=== PATIENT | female | born 1965 | race Caucasian/White ===

== ENCOUNTER 2016-07-20 | Inpatient (IN) | payer OTHER ==
[~2016-07-20] VITALS: Ht 165.1 cm; Wt 61.2 kg
[~2016-07-20] MED LIST: BACL10TA GT; CARB200T GT; CHLO473M3 MM; CHOL100062 GT; DEXT15DR6 EACHEYE; FOLI1TAB16 GT; HEPA50007 SQ; LEVE100S2 GT; LORA2VIA6 IM; MAGN400O6 GT; POLY17PO3 GT; SENN8.6T6 GT; SERT25TA GT
[2016-07-22] MEDS ORDERED: HYDROGEN PEROXIDE 480 ML BOTTLE TP PRN (09:21)
[2016-07-22] MEDS ORDERED: BOOST PLUS FOOD-CHOCLATE 237 ML BOX PO PRN (09:21)
[2016-07-22] MEDS ORDERED: LORAZEPAM INJ 2 MG/ML VIAL IM PRN (09:21)
[2016-07-22] MEDS ORDERED: BOTOX IJ PRN (09:21)
[2016-07-22] MEDS ORDERED: POLYETHYLENE GLYCOL 3350 17 GM POWD.PACK GT SCH (09:21)
[2016-07-22] MEDS ORDERED: TUBERCULIN,PURIF.PROT.DERIV. 5 TU/0.1 ML DISP.SYRIN ID SCH (09:21)
[2016-07-22] MEDS ORDERED: ALBUTEROL FS 2.5 MG/3 ML VIAL.NEB NEB SCH (09:21)
[2016-07-22] MEDS: POLYVINYL ALCOHOL 15 ML BOTTLE EACHEYE SCH ×3 (12:00→23:55)
[2016-07-22] MEDS: CARBAMAZEPINE 200 MG TABLET GT SCH ×2 (13:00→16:22)
[2016-07-22] MEDS: ALBUTEROL FS 2.5 MG/3 ML VIAL.NEB NEB SCH ×2 (14:16→20:28)
[2016-07-22] MEDS: BACLOFEN (10 MG) 10 MG TABLET GT SCH (16:22)
[2016-07-22] MEDS: FOLIC ACID 1 MG TABLET GT SCH (16:22)
[2016-07-22] MEDS: CHLORHEXIDINE GLUCONATE 15 ML UDC MM SCH (16:23)
[2016-07-22 19:49] VITALS: BP 129/67
[2016-07-22] MEDS: SENNOSIDES 8.6 MG TABLET GT SCH (21:36)
[2016-07-22] MEDS: LEVETIRACETAM SOL (5 ML) 100 MG/ML UDC GT SCH (21:36)
[2016-07-22] MEDS: POLYETHYLENE GLYCOL 3350 17 GM POWD.PACK GT SCH (21:37)
[2016-07-22] MEDS: HEPARIN SODIUM, PORCINE 5000 UNITS/1 ML VIAL SQ SCH (21:37)
[2016-07-22] MEDS: Z GUARD REMEDY 4 OZ OINT TP SCH (21:37)
[2016-07-22] MEDS: HYDROGEN PEROXIDE 480 ML BOTTLE TP SCH (21:37)
[2016-07-23] MEDS: ALBUTEROL FS 2.5 MG/3 ML VIAL.NEB NEB SCH ×4 (01:25→19:27)
[2016-07-23] MEDS: POLYVINYL ALCOHOL 15 ML BOTTLE EACHEYE SCH ×4 (06:21→23:16)
[2016-07-23] MEDS: CHLORHEXIDINE GLUCONATE 15 ML UDC MM SCH ×2 (06:21→17:52)
[2016-07-23 08:16] VITALS: BP 114/100
[2016-07-23] MEDS: FOLIC ACID 1 MG TABLET GT SCH ×2 (08:27→16:25)
[2016-07-23] MEDS: CHOLECALCIFEROL 1,000 UNIT TABLET (VIT D3) GT SCH (08:27)
[2016-07-23] MEDS: CARBAMAZEPINE 200 MG TABLET GT SCH ×3 (08:27→16:25)
[2016-07-23] MEDS: BACLOFEN (10 MG) 10 MG TABLET GT SCH ×2 (08:27→16:25)
[2016-07-23] MEDS: SENNOSIDES 8.6 MG TABLET GT SCH ×2 (08:27→20:58)
[2016-07-23] MEDS: LEVETIRACETAM SOL (5 ML) 100 MG/ML UDC GT SCH ×2 (08:27→20:58)
[2016-07-23] MEDS: SERTRALINE HCL 25 MG TABLET GT SCH (08:27)
[2016-07-23] MEDS: Z GUARD REMEDY 4 OZ OINT TP SCH ×2 (08:29→20:59)
[2016-07-23] MEDS: HYDROGEN PEROXIDE 480 ML BOTTLE TP SCH ×2 (08:29→20:59)
[2016-07-23] MEDS: HEPARIN SODIUM, PORCINE 5000 UNITS/1 ML VIAL SQ SCH ×2 (08:29→20:59)
[2016-07-23 20:00] VITALS: BP 114/60
[2016-07-23] MEDS: POLYETHYLENE GLYCOL 3350 17 GM POWD.PACK GT SCH (21:00)
[2016-07-24] MEDS: ALBUTEROL FS 2.5 MG/3 ML VIAL.NEB NEB SCH ×4 (02:25→19:39)
[2016-07-24] MEDS: CHLORHEXIDINE GLUCONATE 15 ML UDC MM SCH ×2 (05:15→17:26)
[2016-07-24] MEDS: POLYVINYL ALCOHOL 15 ML BOTTLE EACHEYE SCH ×3 (05:15→17:26)
[2016-07-24 07:55] VITALS: BP 114/64
[2016-07-24] MEDS: FOLIC ACID 1 MG TABLET GT SCH ×2 (08:26→16:33)
[2016-07-24] MEDS: BACLOFEN (10 MG) 10 MG TABLET GT SCH ×2 (08:26→16:33)
[2016-07-24] MEDS: CHOLECALCIFEROL 1,000 UNIT TABLET (VIT D3) GT SCH (08:26)
[2016-07-24] MEDS: SENNOSIDES 8.6 MG TABLET GT SCH ×2 (08:26→21:35)
[2016-07-24] MEDS: LEVETIRACETAM SOL (5 ML) 100 MG/ML UDC GT SCH ×2 (08:26→21:35)
[2016-07-24] MEDS: CARBAMAZEPINE 200 MG TABLET GT SCH ×3 (08:26→16:33)
[2016-07-24] MEDS: SERTRALINE HCL 25 MG TABLET GT SCH (08:26)
[2016-07-24] MEDS: HYDROGEN PEROXIDE 480 ML BOTTLE TP SCH ×2 (08:27→21:35)
[2016-07-24] MEDS: Z GUARD REMEDY 4 OZ OINT TP SCH ×2 (08:27→21:35)
[2016-07-24] MEDS: HEPARIN SODIUM, PORCINE 5000 UNITS/1 ML VIAL SQ SCH ×2 (08:27→21:35)
[2016-07-24 20:43] VITALS: BP 114/61
[2016-07-24] MEDS: POLYETHYLENE GLYCOL 3350 17 GM POWD.PACK GT SCH (21:35)
[2016-07-25] MEDS: POLYVINYL ALCOHOL 15 ML BOTTLE EACHEYE SCH ×5 (00:27→23:26)
[2016-07-25] MEDS: ALBUTEROL FS 2.5 MG/3 ML VIAL.NEB NEB SCH ×4 (01:36→19:17)
[2016-07-25] MEDS: CHLORHEXIDINE GLUCONATE 15 ML UDC MM SCH ×2 (05:01→17:55)
[2016-07-25 07:49] VITALS: BP 111/60
[2016-07-25] MEDS: FOLIC ACID 1 MG TABLET GT SCH ×2 (08:27→16:57)
[2016-07-25] MEDS: LEVETIRACETAM SOL (5 ML) 100 MG/ML UDC GT SCH ×2 (08:28→21:06)
[2016-07-25] MEDS: BACLOFEN (10 MG) 10 MG TABLET GT SCH ×2 (08:28→16:57)
[2016-07-25] MEDS: CARBAMAZEPINE 200 MG TABLET GT SCH ×3 (08:28→16:57)
[2016-07-25] MEDS: HYDROGEN PEROXIDE 480 ML BOTTLE TP SCH ×2 (08:28→21:07)
[2016-07-25] MEDS: HEPARIN SODIUM, PORCINE 5000 UNITS/1 ML VIAL SQ SCH ×2 (08:28→21:07)
[2016-07-25] MEDS: SERTRALINE HCL 25 MG TABLET GT SCH (08:28)
[2016-07-25] MEDS: SENNOSIDES 8.6 MG TABLET GT SCH ×2 (08:28→21:06)
[2016-07-25] MEDS: CHOLECALCIFEROL 1,000 UNIT TABLET (VIT D3) GT SCH (08:28)
[2016-07-25] MEDS: Z GUARD REMEDY 4 OZ OINT TP SCH ×2 (08:29→21:07)
[2016-07-25 19:41] VITALS: BP 122/57
[2016-07-25] MEDS: POLYETHYLENE GLYCOL 3350 17 GM POWD.PACK GT SCH (21:07)
[2016-07-26] MEDS: ALBUTEROL FS 2.5 MG/3 ML VIAL.NEB NEB SCH ×4 (02:22→19:17)
[2016-07-26] MEDS: CHLORHEXIDINE GLUCONATE 15 ML UDC MM SCH ×2 (05:31→18:05)
[2016-07-26] MEDS: POLYVINYL ALCOHOL 15 ML BOTTLE EACHEYE SCH ×3 (05:31→18:05)
[2016-07-26 07:53] VITALS: BP 111/61
[2016-07-26] MEDS: LEVETIRACETAM SOL (5 ML) 100 MG/ML UDC GT SCH ×2 (08:29→21:51)
[2016-07-26] MEDS: SENNOSIDES 8.6 MG TABLET GT SCH ×2 (08:29→21:51)
[2016-07-26] MEDS: SERTRALINE HCL 25 MG TABLET GT SCH (08:29)
[2016-07-26] MEDS: BACLOFEN (10 MG) 10 MG TABLET GT SCH ×2 (08:29→17:00)
[2016-07-26] MEDS: CHOLECALCIFEROL 1,000 UNIT TABLET (VIT D3) GT SCH (08:29)
[2016-07-26] MEDS: CARBAMAZEPINE 200 MG TABLET GT SCH ×3 (08:29→17:00)
[2016-07-26] MEDS: FOLIC ACID 1 MG TABLET GT SCH ×2 (08:29→17:00)
[2016-07-26] MEDS: HEPARIN SODIUM, PORCINE 5000 UNITS/1 ML VIAL SQ SCH ×2 (08:30→21:52)
[2016-07-26] MEDS: HYDROGEN PEROXIDE 480 ML BOTTLE TP SCH ×2 (09:00→21:52)
[2016-07-26] MEDS: Z GUARD REMEDY 4 OZ OINT TP SCH ×2 (09:00→21:53)
[2016-07-26 19:48] VITALS: BP 130/47
[2016-07-26] MEDS: POLYETHYLENE GLYCOL 3350 17 GM POWD.PACK GT SCH (21:53)
[2016-07-27] MEDS: POLYVINYL ALCOHOL 15 ML BOTTLE EACHEYE SCH ×4 (00:26→17:50)
[2016-07-27] MEDS: ALBUTEROL FS 2.5 MG/3 ML VIAL.NEB NEB SCH ×4 (02:08→20:08)
[2016-07-27] MEDS: CHLORHEXIDINE GLUCONATE 15 ML UDC MM SCH ×2 (06:33→17:50)
[2016-07-27 07:28] VITALS: BP 112/62
[2016-07-27] MEDS: FOLIC ACID 1 MG TABLET GT SCH ×2 (08:43→17:50)
[2016-07-27] MEDS: SENNOSIDES 8.6 MG TABLET GT SCH ×2 (08:44→21:39)
[2016-07-27] MEDS: LEVETIRACETAM SOL (5 ML) 100 MG/ML UDC GT SCH ×2 (08:44→21:39)
[2016-07-27] MEDS: BACLOFEN (10 MG) 10 MG TABLET GT SCH ×2 (08:44→17:50)
[2016-07-27] MEDS: CARBAMAZEPINE 200 MG TABLET GT SCH ×3 (08:45→17:50)
[2016-07-27] MEDS: CHOLECALCIFEROL 1,000 UNIT TABLET (VIT D3) GT SCH (08:45)
[2016-07-27] MEDS: SERTRALINE HCL 25 MG TABLET GT SCH (08:46)
[2016-07-27] MEDS: HEPARIN SODIUM, PORCINE 5000 UNITS/1 ML VIAL SQ SCH ×2 (08:48→21:40)
[2016-07-27] MEDS: HYDROGEN PEROXIDE 480 ML BOTTLE TP SCH ×2 (09:03→21:40)
[2016-07-27] MEDS: Z GUARD REMEDY 4 OZ OINT TP SCH ×2 (09:03→21:40)
[2016-07-27 19:53] VITALS: BP 124/69
[2016-07-27] MEDS: POLYETHYLENE GLYCOL 3350 17 GM POWD.PACK GT SCH (21:40)
[2016-07-28] MEDS: POLYVINYL ALCOHOL 15 ML BOTTLE EACHEYE SCH ×5 (00:05→23:19)
[2016-07-28] MEDS: ALBUTEROL FS 2.5 MG/3 ML VIAL.NEB NEB SCH ×4 (02:25→19:30)
[2016-07-28] MEDS: CHLORHEXIDINE GLUCONATE 15 ML UDC MM SCH ×2 (05:28→17:41)
[2016-07-28 08:05] VITALS: BP 130/73
[2016-07-28] MEDS: BACLOFEN (10 MG) 10 MG TABLET GT SCH ×2 (08:44→17:41)
[2016-07-28] MEDS: SERTRALINE HCL 25 MG TABLET GT SCH (08:44)
[2016-07-28] MEDS: CHOLECALCIFEROL 1,000 UNIT TABLET (VIT D3) GT SCH (08:44)
[2016-07-28] MEDS: SENNOSIDES 8.6 MG TABLET GT SCH ×2 (08:44→20:24)
[2016-07-28] MEDS: CARBAMAZEPINE 200 MG TABLET GT SCH ×3 (08:44→17:41)
[2016-07-28] MEDS: LEVETIRACETAM SOL (5 ML) 100 MG/ML UDC GT SCH ×2 (08:44→20:24)
[2016-07-28] MEDS: FOLIC ACID 1 MG TABLET GT SCH ×2 (08:44→17:41)
[2016-07-28] MEDS: HEPARIN SODIUM, PORCINE 5000 UNITS/1 ML VIAL SQ SCH ×2 (08:45→20:26)
[2016-07-28] MEDS: Z GUARD REMEDY 4 OZ OINT TP SCH ×2 (09:00→20:28)
[2016-07-28] MEDS: HYDROGEN PEROXIDE 480 ML BOTTLE TP SCH ×2 (11:00→20:27)
[2016-07-28 20:49] VITALS: BP 106/62
[2016-07-28] MEDS: POLYETHYLENE GLYCOL 3350 17 GM POWD.PACK GT SCH (21:22)
[2016-07-29] MEDS: ALBUTEROL FS 2.5 MG/3 ML VIAL.NEB NEB SCH ×4 (00:41→19:30)
[2016-07-29] MEDS: CHLORHEXIDINE GLUCONATE 15 ML UDC MM SCH ×2 (05:46→18:46)
[2016-07-29] MEDS: POLYVINYL ALCOHOL 15 ML BOTTLE EACHEYE SCH ×4 (05:46→23:52)
[2016-07-29 08:07] VITALS: BP 103/57
[2016-07-29] MEDS: SERTRALINE HCL 25 MG TABLET GT SCH (08:55)
[2016-07-29] MEDS: BACLOFEN (10 MG) 10 MG TABLET GT SCH ×2 (08:55→16:57)
[2016-07-29] MEDS: CHOLECALCIFEROL 1,000 UNIT TABLET (VIT D3) GT SCH (08:55)
[2016-07-29] MEDS: CARBAMAZEPINE 200 MG TABLET GT SCH ×3 (08:55→16:57)
[2016-07-29] MEDS: LEVETIRACETAM SOL (5 ML) 100 MG/ML UDC GT SCH ×2 (08:55→21:02)
[2016-07-29] MEDS: SENNOSIDES 8.6 MG TABLET GT SCH ×2 (08:55→21:02)
[2016-07-29] MEDS: HEPARIN SODIUM, PORCINE 5000 UNITS/1 ML VIAL SQ SCH ×2 (08:55→21:03)
[2016-07-29] MEDS: FOLIC ACID 1 MG TABLET GT SCH ×2 (08:55→16:57)
[2016-07-29] MEDS: Z GUARD REMEDY 4 OZ OINT TP SCH ×2 (09:00→21:04)
[2016-07-29] MEDS: HYDROGEN PEROXIDE 480 ML BOTTLE TP SCH ×2 (10:15→21:03)
[2016-07-29 20:35] VITALS: BP 98/55
[2016-07-29] MEDS: POLYETHYLENE GLYCOL 3350 17 GM POWD.PACK GT SCH (21:04)
[2016-07-30] MEDS: ALBUTEROL FS 2.5 MG/3 ML VIAL.NEB NEB SCH ×4 (02:21→19:30)
[2016-07-30] MEDS: POLYVINYL ALCOHOL 15 ML BOTTLE EACHEYE SCH ×4 (05:35→23:18)
[2016-07-30] MEDS: CHLORHEXIDINE GLUCONATE 15 ML UDC MM SCH ×2 (05:36→17:12)
[2016-07-30 07:43] VITALS: BP 119/73
[2016-07-30] MEDS: FOLIC ACID 1 MG TABLET GT SCH ×2 (09:24→17:11)
[2016-07-30] MEDS: CHOLECALCIFEROL 1,000 UNIT TABLET (VIT D3) GT SCH (09:25)
[2016-07-30] MEDS: CARBAMAZEPINE 200 MG TABLET GT SCH ×3 (09:25→17:12)
[2016-07-30] MEDS: SENNOSIDES 8.6 MG TABLET GT SCH ×2 (09:25→20:14)
[2016-07-30] MEDS: LEVETIRACETAM SOL (5 ML) 100 MG/ML UDC GT SCH ×2 (09:25→20:14)
[2016-07-30] MEDS: SERTRALINE HCL 25 MG TABLET GT SCH (09:25)
[2016-07-30] MEDS: BACLOFEN (10 MG) 10 MG TABLET GT SCH ×2 (09:25→17:11)
[2016-07-30] MEDS: Z GUARD REMEDY 4 OZ OINT TP SCH ×3 (09:26→20:16)
[2016-07-30] MEDS: HEPARIN SODIUM, PORCINE 5000 UNITS/1 ML VIAL SQ SCH ×2 (09:26→20:15)
[2016-07-30] MEDS: HYDROGEN PEROXIDE 480 ML BOTTLE TP SCH ×2 (09:26→20:15)
[2016-07-30 19:49] VITALS: BP 102/54
[2016-07-30] MEDS: POLYETHYLENE GLYCOL 3350 17 GM POWD.PACK GT SCH (21:59)
[2016-07-31] MEDS: ALBUTEROL FS 2.5 MG/3 ML VIAL.NEB NEB SCH ×4 (01:12→19:30)
[2016-07-31] MEDS: POLYVINYL ALCOHOL 15 ML BOTTLE EACHEYE SCH ×4 (05:10→23:27)
[2016-07-31] MEDS: CHLORHEXIDINE GLUCONATE 15 ML UDC MM SCH ×2 (05:10→17:27)
[2016-07-31 07:41] VITALS: BP 128/76
[2016-07-31] MEDS: FOLIC ACID 1 MG TABLET GT SCH ×2 (08:15→16:10)
[2016-07-31] MEDS: LEVETIRACETAM SOL (5 ML) 100 MG/ML UDC GT SCH ×2 (08:15→21:27)
[2016-07-31] MEDS: BACLOFEN (10 MG) 10 MG TABLET GT SCH ×2 (08:15→16:10)
[2016-07-31] MEDS: CARBAMAZEPINE 200 MG TABLET GT SCH ×3 (08:16→16:15)
[2016-07-31] MEDS: SERTRALINE HCL 25 MG TABLET GT SCH (08:16)
[2016-07-31] MEDS: SENNOSIDES 8.6 MG TABLET GT SCH ×2 (08:16→21:27)
[2016-07-31] MEDS: CHOLECALCIFEROL 1,000 UNIT TABLET (VIT D3) GT SCH (08:16)
[2016-07-31] MEDS: HYDROGEN PEROXIDE 480 ML BOTTLE TP SCH ×2 (08:17→21:28)
[2016-07-31] MEDS: HEPARIN SODIUM, PORCINE 5000 UNITS/1 ML VIAL SQ SCH ×2 (08:17→21:28)
[2016-07-31] MEDS: Z GUARD REMEDY 4 OZ OINT TP SCH ×4 (08:17→21:28)
[2016-07-31 21:16] VITALS: BP 101/73
[2016-07-31] MEDS: POLYETHYLENE GLYCOL 3350 17 GM POWD.PACK GT SCH (21:28)
[2016-08-01] MEDS: ALBUTEROL FS 2.5 MG/3 ML VIAL.NEB NEB SCH ×4 (01:03→19:30)
[2016-08-01] MEDS: POLYVINYL ALCOHOL 15 ML BOTTLE EACHEYE SCH ×4 (05:34→23:19)
[2016-08-01] MEDS: CHLORHEXIDINE GLUCONATE 15 ML UDC MM SCH ×2 (05:34→17:59)
[2016-08-01 07:30] VITALS: BP 116/66
[2016-08-01] MEDS: HEPARIN SODIUM, PORCINE 5000 UNITS/1 ML VIAL SQ SCH ×2 (08:14→21:18)
[2016-08-01] MEDS: SENNOSIDES 8.6 MG TABLET GT SCH ×2 (08:14→21:18)
[2016-08-01] MEDS: CARBAMAZEPINE 200 MG TABLET GT SCH ×3 (08:14→17:59)
[2016-08-01] MEDS: HYDROGEN PEROXIDE 480 ML BOTTLE TP SCH ×2 (08:14→21:18)
[2016-08-01] MEDS: Z GUARD REMEDY 4 OZ OINT TP SCH ×4 (08:14→21:18)
[2016-08-01] MEDS: BACLOFEN (10 MG) 10 MG TABLET GT SCH ×2 (08:14→17:59)
[2016-08-01] MEDS: CHOLECALCIFEROL 1,000 UNIT TABLET (VIT D3) GT SCH (08:14)
[2016-08-01] MEDS: SERTRALINE HCL 25 MG TABLET GT SCH (08:14)
[2016-08-01] MEDS: FOLIC ACID 1 MG TABLET GT SCH ×2 (08:14→17:59)
[2016-08-01] MEDS: LEVETIRACETAM SOL (5 ML) 100 MG/ML UDC GT SCH ×2 (08:14→21:18)
[2016-08-01 21:09] VITALS: BP 97/57
[2016-08-01] MEDS: POLYETHYLENE GLYCOL 3350 17 GM POWD.PACK GT SCH (21:18)
[2016-08-02] MEDS: ALBUTEROL FS 2.5 MG/3 ML VIAL.NEB NEB SCH ×4 (02:02→19:10)
[2016-08-02] MEDS: POLYVINYL ALCOHOL 15 ML BOTTLE EACHEYE SCH ×4 (05:28→23:25)
[2016-08-02] MEDS: CHLORHEXIDINE GLUCONATE 15 ML UDC MM SCH ×2 (05:28→17:25)
[2016-08-02 07:55] VITALS: BP 102/54
[2016-08-02] MEDS: HEPARIN SODIUM, PORCINE 5000 UNITS/1 ML VIAL SQ SCH ×2 (09:50→21:04)
[2016-08-02] MEDS: LEVETIRACETAM SOL (5 ML) 100 MG/ML UDC GT SCH ×2 (09:50→21:04)
[2016-08-02] MEDS: SERTRALINE HCL 25 MG TABLET GT SCH (09:50)
[2016-08-02] MEDS: BACLOFEN (10 MG) 10 MG TABLET GT SCH ×2 (09:50→17:25)
[2016-08-02] MEDS: CHOLECALCIFEROL 1,000 UNIT TABLET (VIT D3) GT SCH (09:50)
[2016-08-02] MEDS: FOLIC ACID 1 MG TABLET GT SCH ×2 (09:50→17:25)
[2016-08-02] MEDS: SENNOSIDES 8.6 MG TABLET GT SCH ×2 (09:50→21:04)
[2016-08-02] MEDS: CARBAMAZEPINE 200 MG TABLET GT SCH ×3 (09:50→17:25)
[2016-08-02] MEDS: Z GUARD REMEDY 4 OZ OINT TP SCH ×4 (09:51→21:05)
[2016-08-02] MEDS: HYDROGEN PEROXIDE 480 ML BOTTLE TP SCH ×2 (09:51→21:05)
[2016-08-02 19:58] VITALS: BP 103/59
[2016-08-02] MEDS: MAGNESIUM HYDROXIDE 30 ML UDC GT PRN (21:05)
[2016-08-02] MEDS: POLYETHYLENE GLYCOL 3350 17 GM POWD.PACK GT SCH (21:05)
[2016-08-03] MEDS: ALBUTEROL FS 2.5 MG/3 ML VIAL.NEB NEB SCH ×4 (01:18→19:02)
[2016-08-03] MEDS: CHLORHEXIDINE GLUCONATE 15 ML UDC MM SCH ×2 (05:23→17:24)
[2016-08-03] MEDS: POLYVINYL ALCOHOL 15 ML BOTTLE EACHEYE SCH ×4 (05:23→23:55)
[2016-08-03 08:17] VITALS: BP 101/62
[2016-08-03] MEDS: SENNOSIDES 8.6 MG TABLET GT SCH ×2 (09:32→21:01)
[2016-08-03] MEDS: LEVETIRACETAM SOL (5 ML) 100 MG/ML UDC GT SCH ×2 (09:32→21:01)
[2016-08-03] MEDS: CARBAMAZEPINE 200 MG TABLET GT SCH ×3 (09:32→17:24)
[2016-08-03] MEDS: FOLIC ACID 1 MG TABLET GT SCH ×2 (09:32→17:22)
[2016-08-03] MEDS: SERTRALINE HCL 25 MG TABLET GT SCH (09:32)
[2016-08-03] MEDS: BACLOFEN (10 MG) 10 MG TABLET GT SCH ×2 (09:32→17:23)
[2016-08-03] MEDS: CHOLECALCIFEROL 1,000 UNIT TABLET (VIT D3) GT SCH (09:32)
[2016-08-03] MEDS: HEPARIN SODIUM, PORCINE 5000 UNITS/1 ML VIAL SQ SCH ×2 (09:33→21:02)
[2016-08-03] MEDS: HYDROGEN PEROXIDE 480 ML BOTTLE TP SCH ×2 (09:33→21:02)
[2016-08-03] MEDS: Z GUARD REMEDY 4 OZ OINT TP SCH ×4 (09:33→21:03)
[2016-08-03 19:54] VITALS: BP 110/54
[2016-08-03] MEDS: POLYETHYLENE GLYCOL 3350 17 GM POWD.PACK GT SCH (21:03)
[2016-08-04] MEDS: ALBUTEROL FS 2.5 MG/3 ML VIAL.NEB NEB SCH ×4 (00:33→18:58)
[2016-08-04] MEDS: POLYVINYL ALCOHOL 15 ML BOTTLE EACHEYE SCH ×3 (05:38→18:04)
[2016-08-04] MEDS: CHLORHEXIDINE GLUCONATE 15 ML UDC MM SCH ×2 (05:38→18:04)
[2016-08-04 08:07] VITALS: BP 159/81
[2016-08-04] MEDS: CARBAMAZEPINE 200 MG TABLET GT SCH ×3 (08:47→17:00)
[2016-08-04] MEDS: SENNOSIDES 8.6 MG TABLET GT SCH ×2 (08:47→20:18)
[2016-08-04] MEDS: BACLOFEN (10 MG) 10 MG TABLET GT SCH ×3 (08:47→17:00)
[2016-08-04] MEDS: FOLIC ACID 1 MG TABLET GT SCH ×2 (08:47→17:00)
[2016-08-04] MEDS: LEVETIRACETAM SOL (5 ML) 100 MG/ML UDC GT SCH ×2 (08:47→20:18)
[2016-08-04] MEDS: CHOLECALCIFEROL 1,000 UNIT TABLET (VIT D3) GT SCH (08:47)
[2016-08-04] MEDS: SERTRALINE HCL 25 MG TABLET GT SCH (08:47)
[2016-08-04] MEDS: HYDROGEN PEROXIDE 480 ML BOTTLE TP SCH ×2 (08:48→20:18)
[2016-08-04] MEDS: HEPARIN SODIUM, PORCINE 5000 UNITS/1 ML VIAL SQ SCH ×2 (08:48→20:18)
[2016-08-04] MEDS: Z GUARD REMEDY 4 OZ OINT TP SCH ×4 (08:48→20:18)
[2016-08-04 20:00] VITALS: BP 108/60
[2016-08-04] MEDS: POLYETHYLENE GLYCOL 3350 17 GM POWD.PACK GT SCH (21:54)
[2016-08-05] MEDS: POLYVINYL ALCOHOL 15 ML BOTTLE EACHEYE SCH ×5 (00:18→23:29)
[2016-08-05] MEDS: ALBUTEROL FS 2.5 MG/3 ML VIAL.NEB NEB SCH ×4 (01:08→19:56)
[2016-08-05] MEDS: CHLORHEXIDINE GLUCONATE 15 ML UDC MM SCH ×2 (05:26→17:24)
[2016-08-05 08:15] VITALS: BP 115/60
[2016-08-05] MEDS: SERTRALINE HCL 25 MG TABLET GT SCH (08:32)
[2016-08-05] MEDS: CHOLECALCIFEROL 1,000 UNIT TABLET (VIT D3) GT SCH (08:32)
[2016-08-05] MEDS: CARBAMAZEPINE 200 MG TABLET GT SCH ×3 (08:32→17:24)
[2016-08-05] MEDS: LEVETIRACETAM SOL (5 ML) 100 MG/ML UDC GT SCH ×2 (08:32→20:28)
[2016-08-05] MEDS: SENNOSIDES 8.6 MG TABLET GT SCH ×2 (08:32→20:28)
[2016-08-05] MEDS: FOLIC ACID 1 MG TABLET GT SCH ×2 (08:32→17:24)
[2016-08-05] MEDS: BACLOFEN (10 MG) 10 MG TABLET GT SCH ×3 (08:32→17:24)
[2016-08-05] MEDS: HYDROGEN PEROXIDE 480 ML BOTTLE TP SCH ×2 (08:34→20:28)
[2016-08-05] MEDS: HEPARIN SODIUM, PORCINE 5000 UNITS/1 ML VIAL SQ SCH ×2 (08:34→20:28)
[2016-08-05] MEDS: Z GUARD REMEDY 4 OZ OINT TP SCH ×4 (08:34→20:29)
[2016-08-05 19:57] VITALS: BP 111/72
[2016-08-05] MEDS: POLYETHYLENE GLYCOL 3350 17 GM POWD.PACK GT SCH (22:27)
[2016-08-06] MEDS: ALBUTEROL FS 2.5 MG/3 ML VIAL.NEB NEB SCH ×4 (01:42→19:30)
[2016-08-06] MEDS: POLYVINYL ALCOHOL 15 ML BOTTLE EACHEYE SCH ×4 (05:27→23:36)
[2016-08-06] MEDS: CHLORHEXIDINE GLUCONATE 15 ML UDC MM SCH ×2 (05:27→18:44)
[2016-08-06 08:17] VITALS: BP 118/60
[2016-08-06] MEDS: CHOLECALCIFEROL 1,000 UNIT TABLET (VIT D3) GT SCH (08:26)
[2016-08-06] MEDS: CARBAMAZEPINE 200 MG TABLET GT SCH ×3 (08:26→17:00)
[2016-08-06] MEDS: LEVETIRACETAM SOL (5 ML) 100 MG/ML UDC GT SCH ×2 (08:26→20:12)
[2016-08-06] MEDS: SENNOSIDES 8.6 MG TABLET GT SCH ×2 (08:26→20:12)
[2016-08-06] MEDS: FOLIC ACID 1 MG TABLET GT SCH ×2 (08:26→17:00)
[2016-08-06] MEDS: SERTRALINE HCL 25 MG TABLET GT SCH (08:26)
[2016-08-06] MEDS: BACLOFEN (10 MG) 10 MG TABLET GT SCH ×3 (08:26→17:00)
[2016-08-06] MEDS: HYDROGEN PEROXIDE 480 ML BOTTLE TP SCH ×2 (08:27→20:13)
[2016-08-06] MEDS: HEPARIN SODIUM, PORCINE 5000 UNITS/1 ML VIAL SQ SCH ×2 (08:27→20:13)
[2016-08-06] MEDS: Z GUARD REMEDY 4 OZ OINT TP SCH ×4 (08:27→20:13)
[2016-08-06 19:50] VITALS: BP 100/62
[2016-08-06] MEDS: POLYETHYLENE GLYCOL 3350 17 GM POWD.PACK GT SCH (21:59)
[2016-08-07] MEDS: ALBUTEROL FS 2.5 MG/3 ML VIAL.NEB NEB SCH ×4 (01:45→19:27)
[2016-08-07] MEDS: POLYVINYL ALCOHOL 15 ML BOTTLE EACHEYE SCH ×3 (05:39→17:49)
[2016-08-07] MEDS: CHLORHEXIDINE GLUCONATE 15 ML UDC MM SCH ×2 (05:39→17:49)
[2016-08-07 07:35] VITALS: BP 120/75
[2016-08-07] MEDS: BACLOFEN (10 MG) 10 MG TABLET GT SCH ×3 (09:00→17:48)
[2016-08-07] MEDS: CARBAMAZEPINE 200 MG TABLET GT SCH ×3 (09:00→17:48)
[2016-08-07] MEDS: LEVETIRACETAM SOL (5 ML) 100 MG/ML UDC GT SCH ×2 (09:00→21:00)
[2016-08-07] MEDS: HEPARIN SODIUM, PORCINE 5000 UNITS/1 ML VIAL SQ SCH ×2 (09:00→21:01)
[2016-08-07] MEDS: SERTRALINE HCL 25 MG TABLET GT SCH (09:00)
[2016-08-07] MEDS: HYDROGEN PEROXIDE 480 ML BOTTLE TP SCH ×2 (09:00→21:01)
[2016-08-07] MEDS: Z GUARD REMEDY 4 OZ OINT TP SCH ×4 (09:00→21:01)
[2016-08-07] MEDS: FOLIC ACID 1 MG TABLET GT SCH ×2 (09:00→17:48)
[2016-08-07] MEDS: SENNOSIDES 8.6 MG TABLET GT SCH ×2 (09:00→21:00)
[2016-08-07] MEDS: CHOLECALCIFEROL 1,000 UNIT TABLET (VIT D3) GT SCH (09:00)
[2016-08-07 19:48] VITALS: BP 118/68
[2016-08-07] MEDS: POLYETHYLENE GLYCOL 3350 17 GM POWD.PACK GT SCH (21:01)
[2016-08-08] MEDS: ALBUTEROL FS 2.5 MG/3 ML VIAL.NEB NEB SCH ×4 (00:58→19:39)
[2016-08-08] MEDS: CHLORHEXIDINE GLUCONATE 15 ML UDC MM SCH ×2 (05:43→17:08)
[2016-08-08] MEDS: POLYVINYL ALCOHOL 15 ML BOTTLE EACHEYE SCH ×4 (05:43→17:08)
[2016-08-08 06:46] LABS: BASOPHILS % (AUTO) 0.5 % (0.0-2.0); DIFF TOTAL % 100 %; EOSINOPHILS # (AUTO) 0.1 /CMM (0.0-0.7); EOSINOPHILS % (AUTO) 1.7 % (0.0-6.0); HEMATOCRIT 40 % (33-45); HEMOGLOBIN 13.7 g/dL (11.5-14.8); LYMPHOCYTES % (AUTO) 42.8 % (20.0-44.0); MEAN CORPUSCULAR HEMOGLOBIN 33 PG (26.0-33.0); MEAN CORPUSCULAR HGB CONC 34 g/dl (31.0-36.0); MEAN CORPUSCULAR VOLUME 97 fL (82-100); MONOCYTES # (AUTO) 0.4 /CMM (0.1-1.30); MONOCYTES % (AUTO) 9.2 % (2.0-12.0); NEUTROPHILS # (AUTO) 2.1 /CMM (1.8-8.9); NEUTROPHILS % (AUTO) 45.8 % (43.0-81.0); PLATELET COUNT (AUTO) 256 /CMM (150-450); RED BLOOD CELL COUNT(AUTO) 4.15 MIL/uL (4.0-5.2); WHITE BLOOD COUNT (AUTO) 4.7 K/uL (4.3-11.0)
[2016-08-08 07:08] LABS: ALBUMIN 3.2 g/dL (3.4-5.0); BILIRUBIN,TOTAL 0.2 mg/dL (0.2-1.0); CREATININE 0.5 mg/dL (0.6-1.3); TOTAL PROTEIN, SERUM 6.7 g/dL (6.4-8.2)
[2016-08-08 07:11] LABS: THYROID STIMULATING HORMONE 0.786 uIU/mL (0.358-3.74)
[2016-08-08 07:35] VITALS: BP 110/72
[2016-08-08] MEDS: CARBAMAZEPINE 200 MG TABLET GT SCH ×3 (08:47→17:08)
[2016-08-08] MEDS: SENNOSIDES 8.6 MG TABLET GT SCH ×2 (08:47→21:00)
[2016-08-08] MEDS: FOLIC ACID 1 MG TABLET GT SCH ×2 (08:47→17:08)
[2016-08-08] MEDS: SERTRALINE HCL 25 MG TABLET GT SCH (08:47)
[2016-08-08] MEDS: LEVETIRACETAM SOL (5 ML) 100 MG/ML UDC GT SCH ×2 (08:47→21:00)
[2016-08-08] MEDS: CHOLECALCIFEROL 1,000 UNIT TABLET (VIT D3) GT SCH (08:47)
[2016-08-08] MEDS: BACLOFEN (10 MG) 10 MG TABLET GT SCH ×3 (08:47→17:08)
[2016-08-08] MEDS: HEPARIN SODIUM, PORCINE 5000 UNITS/1 ML VIAL SQ SCH ×2 (08:51→21:00)
[2016-08-08] MEDS: Z GUARD REMEDY 4 OZ OINT TP SCH ×4 (08:51→21:00)
[2016-08-08] MEDS: HYDROGEN PEROXIDE 480 ML BOTTLE TP SCH ×2 (08:51→21:00)
[2016-08-08 19:49] VITALS: BP 111/58
[2016-08-08] MEDS: POLYETHYLENE GLYCOL 3350 17 GM POWD.PACK GT SCH (22:11)
[2016-08-09] MEDS: POLYVINYL ALCOHOL 15 ML BOTTLE EACHEYE SCH ×5 (00:38→23:29)
[2016-08-09] MEDS: ALBUTEROL FS 2.5 MG/3 ML VIAL.NEB NEB SCH ×4 (00:55→19:47)
[2016-08-09] MEDS: CHLORHEXIDINE GLUCONATE 15 ML UDC MM SCH ×2 (05:27→17:08)
[2016-08-09 07:49] VITALS: BP 122/75
[2016-08-09] MEDS: SERTRALINE HCL 25 MG TABLET GT SCH (09:01)
[2016-08-09] MEDS: BACLOFEN (10 MG) 10 MG TABLET GT SCH ×3 (09:01→17:08)
[2016-08-09] MEDS: CHOLECALCIFEROL 1,000 UNIT TABLET (VIT D3) GT SCH (09:01)
[2016-08-09] MEDS: SENNOSIDES 8.6 MG TABLET GT SCH ×2 (09:01→20:38)
[2016-08-09] MEDS: FOLIC ACID 1 MG TABLET GT SCH ×2 (09:01→17:08)
[2016-08-09] MEDS: CARBAMAZEPINE 200 MG TABLET GT SCH ×3 (09:01→17:08)
[2016-08-09] MEDS: HEPARIN SODIUM, PORCINE 5000 UNITS/1 ML VIAL SQ SCH ×2 (09:01→20:38)
[2016-08-09] MEDS: LEVETIRACETAM SOL (5 ML) 100 MG/ML UDC GT SCH ×2 (09:01→20:38)
[2016-08-09] MEDS: HYDROGEN PEROXIDE 480 ML BOTTLE TP SCH ×2 (10:30→20:38)
[2016-08-09] MEDS: Z GUARD REMEDY 4 OZ OINT TP SCH ×4 (10:30→20:38)
[2016-08-09 20:08] VITALS: BP 111/58
[2016-08-09] MEDS: POLYETHYLENE GLYCOL 3350 17 GM POWD.PACK GT SCH (22:00)
[2016-08-10] MEDS: ALBUTEROL FS 2.5 MG/3 ML VIAL.NEB NEB SCH ×4 (02:10→20:27)
[2016-08-10] MEDS: POLYVINYL ALCOHOL 15 ML BOTTLE EACHEYE SCH ×4 (05:24→23:45)
[2016-08-10] MEDS: CHLORHEXIDINE GLUCONATE 15 ML UDC MM SCH ×2 (06:00→18:31)
[2016-08-10 07:34] VITALS: BP 113/54
[2016-08-10] MEDS: SENNOSIDES 8.6 MG TABLET GT SCH ×2 (09:32→21:02)
[2016-08-10] MEDS: SERTRALINE HCL 25 MG TABLET GT SCH (09:32)
[2016-08-10] MEDS: CHOLECALCIFEROL 1,000 UNIT TABLET (VIT D3) GT SCH (09:32)
[2016-08-10] MEDS: LEVETIRACETAM SOL (5 ML) 100 MG/ML UDC GT SCH ×2 (09:32→21:02)
[2016-08-10] MEDS: CARBAMAZEPINE 200 MG TABLET GT SCH ×3 (09:32→17:17)
[2016-08-10] MEDS: BACLOFEN (10 MG) 10 MG TABLET GT SCH ×3 (09:32→17:17)
[2016-08-10] MEDS: FOLIC ACID 1 MG TABLET GT SCH ×2 (09:32→17:17)
[2016-08-10] MEDS: HEPARIN SODIUM, PORCINE 5000 UNITS/1 ML VIAL SQ SCH ×2 (09:34→21:03)
[2016-08-10] MEDS: Z GUARD REMEDY 4 OZ OINT TP SCH ×4 (09:34→21:03)
[2016-08-10] MEDS: HYDROGEN PEROXIDE 480 ML BOTTLE TP SCH ×2 (09:34→21:03)
[2016-08-10 20:12] VITALS: BP 96/60
[2016-08-10] MEDS: POLYETHYLENE GLYCOL 3350 17 GM POWD.PACK GT SCH (21:03)
[2016-08-11] MEDS: ALBUTEROL FS 2.5 MG/3 ML VIAL.NEB NEB SCH ×4 (01:37→20:03)
[2016-08-11] MEDS: CHLORHEXIDINE GLUCONATE 15 ML UDC MM SCH ×2 (05:37→17:54)
[2016-08-11] MEDS: POLYVINYL ALCOHOL 15 ML BOTTLE EACHEYE SCH ×4 (05:37→23:14)
[2016-08-11 07:26] VITALS: BP 110/52
[2016-08-11] MEDS: LEVETIRACETAM SOL (5 ML) 100 MG/ML UDC GT SCH ×2 (09:35→21:08)
[2016-08-11] MEDS: SENNOSIDES 8.6 MG TABLET GT SCH ×2 (09:35→21:08)
[2016-08-11] MEDS: BACLOFEN (10 MG) 10 MG TABLET GT SCH ×3 (09:35→17:54)
[2016-08-11] MEDS: SERTRALINE HCL 25 MG TABLET GT SCH (09:35)
[2016-08-11] MEDS: FOLIC ACID 1 MG TABLET GT SCH ×2 (09:35→17:53)
[2016-08-11] MEDS: CHOLECALCIFEROL 1,000 UNIT TABLET (VIT D3) GT SCH (09:35)
[2016-08-11] MEDS: CARBAMAZEPINE 200 MG TABLET GT SCH ×3 (09:35→17:54)
[2016-08-11] MEDS: HEPARIN SODIUM, PORCINE 5000 UNITS/1 ML VIAL SQ SCH ×2 (09:36→21:08)
[2016-08-11] MEDS: HYDROGEN PEROXIDE 480 ML BOTTLE TP SCH ×2 (11:00→21:09)
[2016-08-11] MEDS: Z GUARD REMEDY 4 OZ OINT TP SCH ×4 (11:00→21:09)
[2016-08-11 21:03] VITALS: BP 98/59
[2016-08-11] MEDS: POLYETHYLENE GLYCOL 3350 17 GM POWD.PACK GT SCH (21:09)
[2016-08-12] MEDS: ALBUTEROL FS 2.5 MG/3 ML VIAL.NEB NEB SCH ×4 (02:20→19:45)
[2016-08-12] MEDS: CHLORHEXIDINE GLUCONATE 15 ML UDC MM SCH ×2 (05:32→17:52)
[2016-08-12] MEDS: POLYVINYL ALCOHOL 15 ML BOTTLE EACHEYE SCH ×4 (05:32→23:33)
[2016-08-12 08:16] VITALS: BP 112/56
[2016-08-12] MEDS: FOLIC ACID 1 MG TABLET GT SCH ×2 (09:03→17:05)
[2016-08-12] MEDS: LEVETIRACETAM SOL (5 ML) 100 MG/ML UDC GT SCH ×2 (09:03→21:05)
[2016-08-12] MEDS: BACLOFEN (10 MG) 10 MG TABLET GT SCH ×3 (09:03→17:05)
[2016-08-12] MEDS: SERTRALINE HCL 25 MG TABLET GT SCH (09:04)
[2016-08-12] MEDS: CARBAMAZEPINE 200 MG TABLET GT SCH ×3 (09:04→17:05)
[2016-08-12] MEDS: HEPARIN SODIUM, PORCINE 5000 UNITS/1 ML VIAL SQ SCH ×2 (09:04→21:05)
[2016-08-12] MEDS: CHOLECALCIFEROL 1,000 UNIT TABLET (VIT D3) GT SCH (09:04)
[2016-08-12] MEDS: SENNOSIDES 8.6 MG TABLET GT SCH ×2 (09:04→21:05)
[2016-08-12] MEDS: HYDROGEN PEROXIDE 480 ML BOTTLE TP SCH ×2 (14:30→21:05)
[2016-08-12] MEDS: Z GUARD REMEDY 4 OZ OINT TP SCH ×4 (14:30→21:05)
[2016-08-12 19:46] VITALS: BP 103/62
[2016-08-12] MEDS: POLYETHYLENE GLYCOL 3350 17 GM POWD.PACK GT SCH (21:05)
[2016-08-13] MEDS: ALBUTEROL FS 2.5 MG/3 ML VIAL.NEB NEB SCH ×4 (00:45→19:49)
[2016-08-13] MEDS: CHLORHEXIDINE GLUCONATE 15 ML UDC MM SCH ×2 (05:12→18:52)
[2016-08-13] MEDS: POLYVINYL ALCOHOL 15 ML BOTTLE EACHEYE SCH ×4 (05:12→23:26)
[2016-08-13 08:05] VITALS: BP 108/62
[2016-08-13] MEDS: FOLIC ACID 1 MG TABLET GT SCH ×2 (08:50→17:00)
[2016-08-13] MEDS: LEVETIRACETAM SOL (5 ML) 100 MG/ML UDC GT SCH ×2 (08:50→21:02)
[2016-08-13] MEDS: SENNOSIDES 8.6 MG TABLET GT SCH ×2 (08:51→21:02)
[2016-08-13] MEDS: SERTRALINE HCL 25 MG TABLET GT SCH (08:51)
[2016-08-13] MEDS: CARBAMAZEPINE 200 MG TABLET GT SCH ×3 (08:51→17:00)
[2016-08-13] MEDS: BACLOFEN (10 MG) 10 MG TABLET GT SCH ×3 (08:51→17:00)
[2016-08-13] MEDS: CHOLECALCIFEROL 1,000 UNIT TABLET (VIT D3) GT SCH (08:51)
[2016-08-13] MEDS: HEPARIN SODIUM, PORCINE 5000 UNITS/1 ML VIAL SQ SCH ×2 (08:55→21:03)
[2016-08-13] MEDS: Z GUARD REMEDY 4 OZ OINT TP SCH ×4 (08:56→21:03)
[2016-08-13] MEDS: HYDROGEN PEROXIDE 480 ML BOTTLE TP SCH ×2 (08:56→21:03)
[2016-08-13 19:50] VITALS: BP 130/64
[2016-08-13] MEDS: POLYETHYLENE GLYCOL 3350 17 GM POWD.PACK GT SCH (21:03)
[2016-08-14] MEDS: ALBUTEROL FS 2.5 MG/3 ML VIAL.NEB NEB SCH ×4 (00:46→19:35)
[2016-08-14] MEDS: POLYVINYL ALCOHOL 15 ML BOTTLE EACHEYE SCH ×4 (05:09→23:58)
[2016-08-14] MEDS: CHLORHEXIDINE GLUCONATE 15 ML UDC MM SCH ×2 (05:09→17:47)
[2016-08-14 07:43] VITALS: BP 139/76
[2016-08-14] MEDS: FOLIC ACID 1 MG TABLET GT SCH ×2 (08:29→17:47)
[2016-08-14] MEDS: SENNOSIDES 8.6 MG TABLET GT SCH ×2 (08:30→21:48)
[2016-08-14] MEDS: BACLOFEN (10 MG) 10 MG TABLET GT SCH ×3 (08:30→17:47)
[2016-08-14] MEDS: LEVETIRACETAM SOL (5 ML) 100 MG/ML UDC GT SCH ×2 (08:30→21:48)
[2016-08-14] MEDS: CHOLECALCIFEROL 1,000 UNIT TABLET (VIT D3) GT SCH (08:35)
[2016-08-14] MEDS: SERTRALINE HCL 25 MG TABLET GT SCH (08:35)
[2016-08-14] MEDS: CARBAMAZEPINE 200 MG TABLET GT SCH ×3 (08:35→17:47)
[2016-08-14] MEDS: HEPARIN SODIUM, PORCINE 5000 UNITS/1 ML VIAL SQ SCH ×2 (08:38→21:48)
[2016-08-14] MEDS: Z GUARD REMEDY 4 OZ OINT TP SCH ×4 (08:39→21:49)
[2016-08-14] MEDS: HYDROGEN PEROXIDE 480 ML BOTTLE TP SCH ×2 (08:39→21:49)
[2016-08-14 16:56] VITALS: BP 130/79
[2016-08-14 20:20] VITALS: BP 120/70
[2016-08-14] MEDS: POLYETHYLENE GLYCOL 3350 17 GM POWD.PACK GT SCH (21:49)
[2016-08-15] MEDS: ALBUTEROL FS 2.5 MG/3 ML VIAL.NEB NEB SCH ×4 (00:49→19:18)
[2016-08-15] MEDS: CHLORHEXIDINE GLUCONATE 15 ML UDC MM SCH ×2 (05:25→17:24)
[2016-08-15] MEDS: POLYVINYL ALCOHOL 15 ML BOTTLE EACHEYE SCH ×3 (05:25→17:24)
[2016-08-15 08:13] VITALS: BP 134/92
[2016-08-15] MEDS: FOLIC ACID 1 MG TABLET GT SCH ×2 (09:51→17:24)
[2016-08-15] MEDS: BACLOFEN (10 MG) 10 MG TABLET GT SCH ×3 (09:52→17:24)
[2016-08-15] MEDS: SERTRALINE HCL 25 MG TABLET GT SCH (09:52)
[2016-08-15] MEDS: CARBAMAZEPINE 200 MG TABLET GT SCH ×3 (09:52→17:24)
[2016-08-15] MEDS: HYDROGEN PEROXIDE 480 ML BOTTLE TP SCH ×2 (09:52→21:46)
[2016-08-15] MEDS: SENNOSIDES 8.6 MG TABLET GT SCH ×2 (09:52→21:45)
[2016-08-15] MEDS: CHOLECALCIFEROL 1,000 UNIT TABLET (VIT D3) GT SCH (09:52)
[2016-08-15] MEDS: LEVETIRACETAM SOL (5 ML) 100 MG/ML UDC GT SCH ×2 (09:52→21:45)
[2016-08-15] MEDS: Z GUARD REMEDY 4 OZ OINT TP SCH ×4 (09:52→21:46)
[2016-08-15] MEDS: HEPARIN SODIUM, PORCINE 5000 UNITS/1 ML VIAL SQ SCH ×2 (09:52→21:46)
[2016-08-15 16:49] LABS: KETONES,URINE NEGATIVE (NEGATIVE); LEUKOCYTE ESTERASE ,URINE 3+ (NEGATIVE)
[2016-08-15 17:05] LABS: BASOPHILS % (AUTO) 0.4 % (0.0-2.0); DIFF TOTAL % 100 %; EOSINOPHILS % (AUTO) 0.1 % (0.0-6.0); HEMATOCRIT 43 % (33-45); HEMOGLOBIN 14.2 g/dL (11.5-14.8); LYMPHOCYTES % (AUTO) 21.3 % (20.0-44.0); MEAN CORPUSCULAR HEMOGLOBIN 32 PG (26.0-33.0); MEAN CORPUSCULAR HGB CONC 33 g/dl (31.0-36.0); MEAN CORPUSCULAR VOLUME 97 fL (82-100); MONOCYTES # (AUTO) 0.4 /CMM (0.1-1.30); MONOCYTES % (AUTO) 9.4 % (2.0-12.0); NEUTROPHILS # (AUTO) 3.1 /CMM (1.8-8.9); NEUTROPHILS % (AUTO) 68.8 % (43.0-81.0); PLATELET COUNT (AUTO) 235 /CMM (150-450); WHITE BLOOD COUNT (AUTO) 4.6 K/uL (4.3-11.0)
[2016-08-15 17:17] LABS: ADD UA MICROSCOPIC YES
[2016-08-15 17:21] LABS: ADD URINE CULTURE YES
[2016-08-15 19:45] VITALS: BP 119/62
[2016-08-15] MEDS: POLYETHYLENE GLYCOL 3350 17 GM POWD.PACK GT SCH (21:46)
[2016-08-16] MEDS: POLYVINYL ALCOHOL 15 ML BOTTLE EACHEYE SCH ×4 (00:57→17:19)
[2016-08-16] MEDS: ALBUTEROL FS 2.5 MG/3 ML VIAL.NEB NEB SCH ×4 (01:40→19:29)
[2016-08-16] MEDS: CHLORHEXIDINE GLUCONATE 15 ML UDC MM SCH ×2 (06:24→17:19)
[2016-08-16 07:17] VITALS: BP 128/73
[2016-08-16] MEDS: FOLIC ACID 1 MG TABLET GT SCH ×2 (08:09→16:34)
[2016-08-16] MEDS: BACLOFEN (10 MG) 10 MG TABLET GT SCH ×3 (08:10→16:34)
[2016-08-16] MEDS: SERTRALINE HCL 25 MG TABLET GT SCH (08:10)
[2016-08-16] MEDS: CARBAMAZEPINE 200 MG TABLET GT SCH ×3 (08:10→16:34)
[2016-08-16] MEDS: LEVETIRACETAM SOL (5 ML) 100 MG/ML UDC GT SCH ×2 (08:11→20:38)
[2016-08-16] MEDS: CHOLECALCIFEROL 1,000 UNIT TABLET (VIT D3) GT SCH (08:11)
[2016-08-16] MEDS: Z GUARD REMEDY 4 OZ OINT TP SCH ×4 (08:12→20:38)
[2016-08-16] MEDS: SENNOSIDES 8.6 MG TABLET GT SCH ×2 (08:12→20:38)
[2016-08-16] MEDS: HYDROGEN PEROXIDE 480 ML BOTTLE TP SCH ×2 (08:12→20:38)
[2016-08-16] MEDS: HEPARIN SODIUM, PORCINE 5000 UNITS/1 ML VIAL SQ SCH ×2 (08:13→21:00)
[2016-08-16 19:36] VITALS: BP 108/62
[2016-08-16] MEDS: POLYETHYLENE GLYCOL 3350 17 GM POWD.PACK GT SCH (22:00)
[2016-08-17] MEDS: POLYVINYL ALCOHOL 15 ML BOTTLE EACHEYE SCH ×4 (00:20→17:17)
[2016-08-17] MEDS: ALBUTEROL FS 2.5 MG/3 ML VIAL.NEB NEB SCH ×4 (02:01→19:43)
[2016-08-17] MEDS: CHLORHEXIDINE GLUCONATE 15 ML UDC MM SCH ×2 (05:39→17:17)
[2016-08-17 08:14] VITALS: BP 113/63
[2016-08-17] MEDS: LEVETIRACETAM SOL (5 ML) 100 MG/ML UDC GT SCH ×2 (08:58→21:08)
[2016-08-17] MEDS: SENNOSIDES 8.6 MG TABLET GT SCH ×2 (08:58→21:08)
[2016-08-17] MEDS: BACLOFEN (10 MG) 10 MG TABLET GT SCH ×3 (08:58→17:17)
[2016-08-17] MEDS: FOLIC ACID 1 MG TABLET GT SCH ×2 (08:58→17:17)
[2016-08-17] MEDS: CHOLECALCIFEROL 1,000 UNIT TABLET (VIT D3) GT SCH (08:59)
[2016-08-17] MEDS: CARBAMAZEPINE 200 MG TABLET GT SCH ×3 (08:59→17:17)
[2016-08-17] MEDS: SERTRALINE HCL 25 MG TABLET GT SCH (08:59)
[2016-08-17] MEDS: HEPARIN SODIUM, PORCINE 5000 UNITS/1 ML VIAL SQ SCH (09:00)
[2016-08-17] MEDS: HYDROGEN PEROXIDE 480 ML BOTTLE TP SCH ×2 (09:00→21:09)
[2016-08-17] MEDS: Z GUARD REMEDY 4 OZ OINT TP SCH ×4 (09:00→21:09)
[2016-08-17] MEDS: MAGNESIUM HYDROXIDE 30 ML UDC GT PRN (09:03)
[2016-08-17 19:50] VITALS: BP 98/55
[2016-08-17] MEDS: POLYETHYLENE GLYCOL 3350 17 GM POWD.PACK GT SCH (21:09)
[2016-08-18] MEDS: POLYVINYL ALCOHOL 15 ML BOTTLE EACHEYE SCH ×5 (00:01→23:49)
[2016-08-18] MEDS: ALBUTEROL FS 2.5 MG/3 ML VIAL.NEB NEB SCH ×4 (01:46→20:27)
[2016-08-18] MEDS: CHLORHEXIDINE GLUCONATE 15 ML UDC MM SCH ×2 (05:21→18:30)
[2016-08-18 07:57] VITALS: BP 120/50
[2016-08-18] MEDS: FOLIC ACID 1 MG TABLET GT SCH ×2 (09:00→17:00)
[2016-08-18] MEDS: BACLOFEN (10 MG) 10 MG TABLET GT SCH ×3 (09:00→17:00)
[2016-08-18] MEDS: Z GUARD REMEDY 4 OZ OINT TP SCH ×4 (09:00→21:04)
[2016-08-18] MEDS: SERTRALINE HCL 25 MG TABLET GT SCH (09:00)
[2016-08-18] MEDS: SENNOSIDES 8.6 MG TABLET GT SCH ×2 (09:00→21:03)
[2016-08-18] MEDS: CHOLECALCIFEROL 1,000 UNIT TABLET (VIT D3) GT SCH (09:00)
[2016-08-18] MEDS: CARBAMAZEPINE 200 MG TABLET GT SCH ×3 (09:00→17:00)
[2016-08-18] MEDS: LEVETIRACETAM SOL (5 ML) 100 MG/ML UDC GT SCH ×2 (09:00→21:03)
[2016-08-18] MEDS: HYDROGEN PEROXIDE 480 ML BOTTLE TP SCH ×2 (09:00→21:03)
[2016-08-18 20:02] VITALS: BP 111/66
[2016-08-18] MEDS: POLYETHYLENE GLYCOL 3350 17 GM POWD.PACK GT SCH (21:04)
[2016-08-19] MEDS: ALBUTEROL FS 2.5 MG/3 ML VIAL.NEB NEB SCH ×4 (02:28→20:29)
[2016-08-19] MEDS: CHLORHEXIDINE GLUCONATE 15 ML UDC MM SCH ×2 (05:24→18:45)
[2016-08-19] MEDS: POLYVINYL ALCOHOL 15 ML BOTTLE EACHEYE SCH ×3 (05:24→18:45)
[2016-08-19] MEDS: FOLIC ACID 1 MG TABLET GT SCH ×2 (08:31→16:50)
[2016-08-19] MEDS: BACLOFEN (10 MG) 10 MG TABLET GT SCH ×3 (08:31→16:50)
[2016-08-19] MEDS: LEVETIRACETAM SOL (5 ML) 100 MG/ML UDC GT SCH ×2 (08:31→21:04)
[2016-08-19] MEDS: CARBAMAZEPINE 200 MG TABLET GT SCH ×3 (08:32→16:50)
[2016-08-19] MEDS: SERTRALINE HCL 25 MG TABLET GT SCH (08:32)
[2016-08-19] MEDS: CHOLECALCIFEROL 1,000 UNIT TABLET (VIT D3) GT SCH (08:32)
[2016-08-19] MEDS: SENNOSIDES 8.6 MG TABLET GT SCH ×2 (08:32→21:04)
[2016-08-19] MEDS: Z GUARD REMEDY 4 OZ OINT TP SCH ×4 (09:00→21:04)
[2016-08-19] MEDS: HYDROGEN PEROXIDE 480 ML BOTTLE TP SCH ×2 (09:00→21:04)
[2016-08-19 09:30] VITALS: BP 120/69
[2016-08-19 20:13] VITALS: BP 111/63
[2016-08-19] MEDS: POLYETHYLENE GLYCOL 3350 17 GM POWD.PACK GT SCH (21:04)
[2016-08-20] MEDS: POLYVINYL ALCOHOL 15 ML BOTTLE EACHEYE SCH ×4 (00:19→17:35)
[2016-08-20] MEDS: ALBUTEROL FS 2.5 MG/3 ML VIAL.NEB NEB SCH ×4 (01:22→20:12)
[2016-08-20] MEDS: CHLORHEXIDINE GLUCONATE 15 ML UDC MM SCH ×2 (05:52→17:35)
[2016-08-20 07:49] VITALS: BP 132/54
[2016-08-20] MEDS: HEPARIN SODIUM, PORCINE 5000 UNITS/1 ML VIAL SQ SCH ×2 (09:06→21:11)
[2016-08-20] MEDS: LEVETIRACETAM SOL (5 ML) 100 MG/ML UDC GT SCH ×2 (09:06→21:11)
[2016-08-20] MEDS: SENNOSIDES 8.6 MG TABLET GT SCH ×2 (09:06→21:11)
[2016-08-20] MEDS: FOLIC ACID 1 MG TABLET GT SCH ×2 (09:06→16:44)
[2016-08-20] MEDS: BACLOFEN (10 MG) 10 MG TABLET GT SCH ×3 (09:06→16:44)
[2016-08-20] MEDS: SERTRALINE HCL 25 MG TABLET GT SCH (09:06)
[2016-08-20] MEDS: CARBAMAZEPINE 200 MG TABLET GT SCH ×3 (09:06→16:44)
[2016-08-20] MEDS: CHOLECALCIFEROL 1,000 UNIT TABLET (VIT D3) GT SCH (09:06)
[2016-08-20] MEDS: Z GUARD REMEDY 4 OZ OINT TP SCH ×4 (09:07→21:11)
[2016-08-20] MEDS: HYDROGEN PEROXIDE 480 ML BOTTLE TP SCH ×2 (09:07→21:11)
[2016-08-20 20:17] VITALS: BP 114/61
[2016-08-20] MEDS: POLYETHYLENE GLYCOL 3350 17 GM POWD.PACK GT SCH (21:11)
[2016-08-21] MEDS: POLYVINYL ALCOHOL 15 ML BOTTLE EACHEYE SCH ×4 (00:41→23:58)
[2016-08-21] MEDS: ALBUTEROL FS 2.5 MG/3 ML VIAL.NEB NEB SCH ×4 (01:44→20:21)
[2016-08-21] MEDS: CHLORHEXIDINE GLUCONATE 15 ML UDC MM SCH (06:37)
[2016-08-21 07:29] VITALS: BP 125/88
[2016-08-21] MEDS: BACLOFEN (10 MG) 10 MG TABLET GT SCH ×3 (08:46→16:19)
[2016-08-21] MEDS: FOLIC ACID 1 MG TABLET GT SCH ×2 (08:46→16:19)
[2016-08-21] MEDS: LEVETIRACETAM SOL (5 ML) 100 MG/ML UDC GT SCH ×2 (08:46→21:11)
[2016-08-21] MEDS: SENNOSIDES 8.6 MG TABLET GT SCH ×2 (08:46→21:11)
[2016-08-21] MEDS: CARBAMAZEPINE 200 MG TABLET GT SCH ×3 (08:55→16:19)
[2016-08-21] MEDS: CHOLECALCIFEROL 1,000 UNIT TABLET (VIT D3) GT SCH (08:55)
[2016-08-21] MEDS: SERTRALINE HCL 25 MG TABLET GT SCH (08:55)
[2016-08-21] MEDS: HEPARIN SODIUM, PORCINE 5000 UNITS/1 ML VIAL SQ SCH ×2 (08:55→21:11)
[2016-08-21] MEDS: HYDROGEN PEROXIDE 480 ML BOTTLE TP SCH ×2 (08:55→21:12)
[2016-08-21] MEDS: Z GUARD REMEDY 4 OZ OINT TP SCH ×4 (08:56→21:12)
[2016-08-21 20:25] VITALS: BP 127/81
[2016-08-21] MEDS: Z GUARD REMEDY 2 OZ OINT TP SCH (21:12)
[2016-08-21] MEDS: POLYETHYLENE GLYCOL 3350 17 GM POWD.PACK GT SCH (21:12)
[2016-08-22] MEDS: ALBUTEROL FS 2.5 MG/3 ML VIAL.NEB NEB SCH ×4 (01:52→19:38)
[2016-08-22] MEDS: CHLORHEXIDINE GLUCONATE 15 ML UDC MM SCH ×2 (05:23→18:30)
[2016-08-22] MEDS: POLYVINYL ALCOHOL 15 ML BOTTLE EACHEYE SCH ×3 (05:23→18:30)
[2016-08-22 07:55] VITALS: BP 124/82
[2016-08-22] MEDS: CHOLECALCIFEROL 1,000 UNIT TABLET (VIT D3) GT SCH (08:00)
[2016-08-22] MEDS: CARBAMAZEPINE 200 MG TABLET GT SCH ×3 (08:00→17:00)
[2016-08-22] MEDS: BACLOFEN (10 MG) 10 MG TABLET GT SCH ×3 (08:00→17:00)
[2016-08-22] MEDS: FOLIC ACID 1 MG TABLET GT SCH ×2 (08:00→17:00)
[2016-08-22] MEDS: SENNOSIDES 8.6 MG TABLET GT SCH ×2 (08:00→21:44)
[2016-08-22] MEDS: SERTRALINE HCL 25 MG TABLET GT SCH (08:00)
[2016-08-22] MEDS: LEVETIRACETAM SOL (5 ML) 100 MG/ML UDC GT SCH ×2 (08:00→21:43)
[2016-08-22] MEDS: HEPARIN SODIUM, PORCINE 5000 UNITS/1 ML VIAL SQ SCH ×2 (08:02→21:44)
[2016-08-22] MEDS: HYDROGEN PEROXIDE 480 ML BOTTLE TP SCH ×2 (08:02→21:44)
[2016-08-22] MEDS: Z GUARD REMEDY 2 OZ OINT TP SCH ×2 (08:03→21:44)
[2016-08-22] MEDS: Z GUARD REMEDY 4 OZ OINT TP SCH ×4 (08:03→21:44)
[2016-08-22 19:45] VITALS: BP 107/66
[2016-08-22 20:00] VITALS: BP 104/64
[2016-08-22] MEDS: POLYETHYLENE GLYCOL 3350 17 GM POWD.PACK GT SCH (21:44)
[2016-08-23] MEDS: POLYVINYL ALCOHOL 15 ML BOTTLE EACHEYE SCH ×5 (00:27→23:51)
[2016-08-23] MEDS: ALBUTEROL FS 2.5 MG/3 ML VIAL.NEB NEB SCH ×4 (01:03→20:11)
[2016-08-23] MEDS: CHLORHEXIDINE GLUCONATE 15 ML UDC MM SCH ×2 (06:51→17:52)
[2016-08-23 08:02] VITALS: BP 106/75
[2016-08-23] MEDS: LEVETIRACETAM SOL (5 ML) 100 MG/ML UDC GT SCH ×2 (09:00→21:52)
[2016-08-23] MEDS: SENNOSIDES 8.6 MG TABLET GT SCH ×2 (09:00→21:52)
[2016-08-23] MEDS: CARBAMAZEPINE 200 MG TABLET GT SCH ×3 (09:00→17:52)
[2016-08-23] MEDS: SERTRALINE HCL 25 MG TABLET GT SCH (09:00)
[2016-08-23] MEDS: BACLOFEN (10 MG) 10 MG TABLET GT SCH ×3 (09:00→17:52)
[2016-08-23] MEDS: HYDROGEN PEROXIDE 480 ML BOTTLE TP SCH ×2 (09:00→21:52)
[2016-08-23] MEDS: HEPARIN SODIUM, PORCINE 5000 UNITS/1 ML VIAL SQ SCH ×2 (09:00→21:52)
[2016-08-23] MEDS: CHLORHEXIDINE GLUCONATE 4% 118 ML BOTTLE TP SCH (09:00)
[2016-08-23] MEDS: Z GUARD REMEDY 2 OZ OINT TP SCH ×2 (09:00→21:53)
[2016-08-23] MEDS: CHOLECALCIFEROL 1,000 UNIT TABLET (VIT D3) GT SCH (09:00)
[2016-08-23] MEDS: FOLIC ACID 1 MG TABLET GT SCH ×2 (09:00→17:52)
[2016-08-23] MEDS: Z GUARD REMEDY 4 OZ OINT TP SCH ×4 (09:00→21:53)
[2016-08-23 19:31] VITALS: BP 126/79
[2016-08-23] MEDS: POLYETHYLENE GLYCOL 3350 17 GM POWD.PACK GT SCH (21:53)
[2016-08-24] MEDS: ALBUTEROL FS 2.5 MG/3 ML VIAL.NEB NEB SCH ×4 (02:25→19:47)
[2016-08-24] MEDS: CHLORHEXIDINE GLUCONATE 15 ML UDC MM SCH ×2 (05:46→18:47)
[2016-08-24] MEDS: POLYVINYL ALCOHOL 15 ML BOTTLE EACHEYE SCH ×3 (05:46→18:47)
[2016-08-24 07:45] VITALS: BP 115/75
[2016-08-24] MEDS: BACLOFEN (10 MG) 10 MG TABLET GT SCH ×3 (08:21→16:30)
[2016-08-24] MEDS: CARBAMAZEPINE 200 MG TABLET GT SCH ×3 (08:21→16:30)
[2016-08-24] MEDS: SERTRALINE HCL 25 MG TABLET GT SCH (08:21)
[2016-08-24] MEDS: FOLIC ACID 1 MG TABLET GT SCH ×2 (08:21→16:30)
[2016-08-24] MEDS: LEVETIRACETAM SOL (5 ML) 100 MG/ML UDC GT SCH ×2 (08:21→20:43)
[2016-08-24] MEDS: SENNOSIDES 8.6 MG TABLET GT SCH ×2 (08:21→20:43)
[2016-08-24] MEDS: CHOLECALCIFEROL 1,000 UNIT TABLET (VIT D3) GT SCH (08:21)
[2016-08-24] MEDS: HEPARIN SODIUM, PORCINE 5000 UNITS/1 ML VIAL SQ SCH ×2 (08:22→20:46)
[2016-08-24] MEDS: HYDROGEN PEROXIDE 480 ML BOTTLE TP SCH ×2 (08:23→20:43)
[2016-08-24] MEDS: Z GUARD REMEDY 2 OZ OINT TP SCH ×2 (08:23→20:43)
[2016-08-24] MEDS: Z GUARD REMEDY 4 OZ OINT TP SCH ×4 (08:23→20:44)
[2016-08-24] MEDS: CHLORHEXIDINE GLUCONATE 4% 118 ML BOTTLE TP SCH (09:00)
[2016-08-24 20:13] VITALS: BP 107/59
[2016-08-24] MEDS: POLYETHYLENE GLYCOL 3350 17 GM POWD.PACK GT SCH (21:31)
[2016-08-25] MEDS: POLYVINYL ALCOHOL 15 ML BOTTLE EACHEYE SCH ×5 (00:24→23:24)
[2016-08-25] MEDS: ALBUTEROL FS 2.5 MG/3 ML VIAL.NEB NEB SCH ×4 (00:40→20:01)
[2016-08-25] MEDS: CHLORHEXIDINE GLUCONATE 15 ML UDC MM SCH ×2 (05:20→17:41)
[2016-08-25 07:58] VITALS: BP 111/68
[2016-08-25] MEDS: Z GUARD REMEDY 2 OZ OINT TP SCH ×2 (09:00→21:15)
[2016-08-25] MEDS: HYDROGEN PEROXIDE 480 ML BOTTLE TP SCH ×2 (09:00→21:15)
[2016-08-25] MEDS: Z GUARD REMEDY 4 OZ OINT TP SCH ×4 (09:00→21:15)
[2016-08-25] MEDS: FOLIC ACID 1 MG TABLET GT SCH ×2 (09:02→17:39)
[2016-08-25] MEDS: BACLOFEN (10 MG) 10 MG TABLET GT SCH ×3 (09:11→17:39)
[2016-08-25] MEDS: SENNOSIDES 8.6 MG TABLET GT SCH ×2 (09:11→21:14)
[2016-08-25] MEDS: LEVETIRACETAM SOL (5 ML) 100 MG/ML UDC GT SCH ×2 (09:11→21:14)
[2016-08-25] MEDS: CHOLECALCIFEROL 1,000 UNIT TABLET (VIT D3) GT SCH (09:11)
[2016-08-25] MEDS: SERTRALINE HCL 25 MG TABLET GT SCH (09:11)
[2016-08-25] MEDS: CARBAMAZEPINE 200 MG TABLET GT SCH ×3 (09:11→17:39)
[2016-08-25] MEDS: HEPARIN SODIUM, PORCINE 5000 UNITS/1 ML VIAL SQ SCH ×2 (09:11→21:14)
[2016-08-25 20:10] VITALS: BP 105/66
[2016-08-25] MEDS: POLYETHYLENE GLYCOL 3350 17 GM POWD.PACK GT SCH (21:15)
[2016-08-26] MEDS: ALBUTEROL FS 2.5 MG/3 ML VIAL.NEB NEB SCH ×4 (01:50→20:06)
[2016-08-26] MEDS: CHLORHEXIDINE GLUCONATE 15 ML UDC MM SCH ×2 (05:02→17:05)
[2016-08-26] MEDS: POLYVINYL ALCOHOL 15 ML BOTTLE EACHEYE SCH ×3 (05:02→17:05)
[2016-08-26 07:50] VITALS: BP 124/69
[2016-08-26] MEDS: BACLOFEN (10 MG) 10 MG TABLET GT SCH ×3 (08:28→17:05)
[2016-08-26] MEDS: LEVETIRACETAM SOL (5 ML) 100 MG/ML UDC GT SCH ×2 (08:28→20:41)
[2016-08-26] MEDS: FOLIC ACID 1 MG TABLET GT SCH ×2 (08:28→17:05)
[2016-08-26] MEDS: CARBAMAZEPINE 200 MG TABLET GT SCH ×3 (08:28→17:05)
[2016-08-26] MEDS: CHOLECALCIFEROL 1,000 UNIT TABLET (VIT D3) GT SCH (08:28)
[2016-08-26] MEDS: SERTRALINE HCL 25 MG TABLET GT SCH (08:28)
[2016-08-26] MEDS: SENNOSIDES 8.6 MG TABLET GT SCH ×2 (08:28→20:34)
[2016-08-26] MEDS: HEPARIN SODIUM, PORCINE 5000 UNITS/1 ML VIAL SQ SCH ×2 (08:30→20:35)
[2016-08-26] MEDS: Z GUARD REMEDY 2 OZ OINT TP SCH ×2 (09:00→20:36)
[2016-08-26] MEDS: Z GUARD REMEDY 4 OZ OINT TP SCH ×5 (09:00→21:00)
[2016-08-26] MEDS: HYDROGEN PEROXIDE 480 ML BOTTLE TP SCH ×2 (09:30→20:36)
[2016-08-26 19:40] VITALS: BP 105/61
[2016-08-26] MEDS: POLYETHYLENE GLYCOL 3350 17 GM POWD.PACK GT SCH (21:30)
[2016-08-27] MEDS: POLYVINYL ALCOHOL 15 ML BOTTLE EACHEYE SCH ×5 (00:07→23:56)
[2016-08-27] MEDS: ALBUTEROL FS 2.5 MG/3 ML VIAL.NEB NEB SCH ×4 (02:08→20:22)
[2016-08-27] MEDS: CHLORHEXIDINE GLUCONATE 15 ML UDC MM SCH ×2 (05:31→18:28)
[2016-08-27 07:54] VITALS: BP 134/73
[2016-08-27] MEDS: CARBAMAZEPINE 200 MG TABLET GT SCH ×3 (08:20→17:00)
[2016-08-27] MEDS: LEVETIRACETAM SOL (5 ML) 100 MG/ML UDC GT SCH ×2 (08:20→21:33)
[2016-08-27] MEDS: BACLOFEN (10 MG) 10 MG TABLET GT SCH ×3 (08:20→17:00)
[2016-08-27] MEDS: SENNOSIDES 8.6 MG TABLET GT SCH ×2 (08:20→21:33)
[2016-08-27] MEDS: FOLIC ACID 1 MG TABLET GT SCH ×2 (08:20→17:00)
[2016-08-27] MEDS: CHOLECALCIFEROL 1,000 UNIT TABLET (VIT D3) GT SCH (08:20)
[2016-08-27] MEDS: SERTRALINE HCL 25 MG TABLET GT SCH (08:21)
[2016-08-27] MEDS: Z GUARD REMEDY 4 OZ OINT TP SCH ×6 (08:22→21:34)
[2016-08-27] MEDS: Z GUARD REMEDY 2 OZ OINT TP SCH ×2 (08:22→21:33)
[2016-08-27] MEDS: HEPARIN SODIUM, PORCINE 5000 UNITS/1 ML VIAL SQ SCH ×2 (08:22→21:33)
[2016-08-27] MEDS: HYDROGEN PEROXIDE 480 ML BOTTLE TP SCH ×2 (08:22→21:33)
[2016-08-27 19:50] VITALS: BP 101/60
[2016-08-27] MEDS: POLYETHYLENE GLYCOL 3350 17 GM POWD.PACK GT SCH (21:34)
[2016-08-28] MEDS: ALBUTEROL FS 2.5 MG/3 ML VIAL.NEB NEB SCH ×4 (02:09→20:11)
[2016-08-28] MEDS: POLYVINYL ALCOHOL 15 ML BOTTLE EACHEYE SCH ×3 (06:25→18:14)
[2016-08-28] MEDS: CHLORHEXIDINE GLUCONATE 15 ML UDC MM SCH ×2 (06:25→18:14)
[2016-08-28 08:19] VITALS: BP 106/59
[2016-08-28] MEDS: CARBAMAZEPINE 200 MG TABLET GT SCH ×3 (08:29→17:00)
[2016-08-28] MEDS: CHOLECALCIFEROL 1,000 UNIT TABLET (VIT D3) GT SCH (08:29)
[2016-08-28] MEDS: HEPARIN SODIUM, PORCINE 5000 UNITS/1 ML VIAL SQ SCH ×2 (08:29→21:10)
[2016-08-28] MEDS: FOLIC ACID 1 MG TABLET GT SCH ×2 (08:29→17:00)
[2016-08-28] MEDS: LEVETIRACETAM SOL (5 ML) 100 MG/ML UDC GT SCH ×2 (08:29→21:09)
[2016-08-28] MEDS: BACLOFEN (10 MG) 10 MG TABLET GT SCH ×3 (08:29→17:00)
[2016-08-28] MEDS: SENNOSIDES 8.6 MG TABLET GT SCH ×2 (08:29→21:09)
[2016-08-28] MEDS: SERTRALINE HCL 25 MG TABLET GT SCH (08:29)
[2016-08-28] MEDS: Z GUARD REMEDY 2 OZ OINT TP SCH ×2 (10:00→21:10)
[2016-08-28] MEDS: Z GUARD REMEDY 4 OZ OINT TP SCH ×6 (10:00→21:10)
[2016-08-28] MEDS: HYDROGEN PEROXIDE 480 ML BOTTLE TP SCH ×2 (10:00→21:10)
[2016-08-28 19:56] VITALS: BP 116/58
[2016-08-28] MEDS: POLYETHYLENE GLYCOL 3350 17 GM POWD.PACK GT SCH (21:10)
[2016-08-29] MEDS: POLYVINYL ALCOHOL 15 ML BOTTLE EACHEYE SCH ×4 (00:37→17:46)
[2016-08-29] MEDS: ALBUTEROL FS 2.5 MG/3 ML VIAL.NEB NEB SCH ×4 (01:30→19:32)
[2016-08-29] MEDS: CHLORHEXIDINE GLUCONATE 15 ML UDC MM SCH ×2 (06:16→17:46)
[2016-08-29 07:44] VITALS: BP 121/72
[2016-08-29] MEDS: FOLIC ACID 1 MG TABLET GT SCH ×2 (08:34→17:46)
[2016-08-29] MEDS: LEVETIRACETAM SOL (5 ML) 100 MG/ML UDC GT SCH ×2 (08:34→20:28)
[2016-08-29] MEDS: CARBAMAZEPINE 200 MG TABLET GT SCH ×3 (08:35→17:46)
[2016-08-29] MEDS: SENNOSIDES 8.6 MG TABLET GT SCH ×2 (08:35→20:28)
[2016-08-29] MEDS: BACLOFEN (10 MG) 10 MG TABLET GT SCH ×3 (08:35→17:46)
[2016-08-29] MEDS: SERTRALINE HCL 25 MG TABLET GT SCH (08:35)
[2016-08-29] MEDS: CHOLECALCIFEROL 1,000 UNIT TABLET (VIT D3) GT SCH (08:35)
[2016-08-29] MEDS: HEPARIN SODIUM, PORCINE 5000 UNITS/1 ML VIAL SQ SCH ×2 (08:37→20:28)
[2016-08-29] MEDS: Z GUARD REMEDY 4 OZ OINT TP SCH ×6 (08:38→20:29)
[2016-08-29] MEDS: Z GUARD REMEDY 2 OZ OINT TP SCH ×2 (08:38→20:28)
[2016-08-29] MEDS: HYDROGEN PEROXIDE 480 ML BOTTLE TP SCH ×2 (08:38→20:28)
[2016-08-29 19:49] VITALS: BP 109/63
[2016-08-29] MEDS: POLYETHYLENE GLYCOL 3350 17 GM POWD.PACK GT SCH (22:25)
[2016-08-30] MEDS: ALBUTEROL FS 2.5 MG/3 ML VIAL.NEB NEB SCH ×4 (02:04→19:46)
[2016-08-30] MEDS: POLYVINYL ALCOHOL 15 ML BOTTLE EACHEYE SCH ×5 (05:17→23:50)
[2016-08-30] MEDS: CHLORHEXIDINE GLUCONATE 15 ML UDC MM SCH ×2 (05:17→18:06)
[2016-08-30 07:45] VITALS: BP 108/67
[2016-08-30] MEDS: CARBAMAZEPINE 200 MG TABLET GT SCH ×3 (08:11→17:00)
[2016-08-30] MEDS: BACLOFEN (10 MG) 10 MG TABLET GT SCH ×3 (08:11→17:00)
[2016-08-30] MEDS: CHOLECALCIFEROL 1,000 UNIT TABLET (VIT D3) GT SCH (08:11)
[2016-08-30] MEDS: Z GUARD REMEDY 2 OZ OINT TP SCH ×2 (08:11→21:40)
[2016-08-30] MEDS: LEVETIRACETAM SOL (5 ML) 100 MG/ML UDC GT SCH ×2 (08:11→21:39)
[2016-08-30] MEDS: HEPARIN SODIUM, PORCINE 5000 UNITS/1 ML VIAL SQ SCH ×2 (08:11→21:40)
[2016-08-30] MEDS: HYDROGEN PEROXIDE 480 ML BOTTLE TP SCH ×2 (08:11→21:40)
[2016-08-30] MEDS: SERTRALINE HCL 25 MG TABLET GT SCH (08:11)
[2016-08-30] MEDS: FOLIC ACID 1 MG TABLET GT SCH ×2 (08:11→17:00)
[2016-08-30] MEDS: SENNOSIDES 8.6 MG TABLET GT SCH ×2 (08:11→21:39)
[2016-08-30] MEDS: Z GUARD REMEDY 4 OZ OINT TP SCH ×6 (08:12→21:40)
[2016-08-30 19:55] VITALS: BP 100/60
[2016-08-30] MEDS: POLYETHYLENE GLYCOL 3350 17 GM POWD.PACK GT SCH (21:40)
[2016-08-31] MEDS: ALBUTEROL FS 2.5 MG/3 ML VIAL.NEB NEB SCH ×4 (01:41→19:04)
[2016-08-31] MEDS: CHLORHEXIDINE GLUCONATE 15 ML UDC MM SCH ×2 (05:46→17:57)
[2016-08-31] MEDS: POLYVINYL ALCOHOL 15 ML BOTTLE EACHEYE SCH ×3 (05:46→17:57)
[2016-08-31] MEDS: LEVETIRACETAM SOL (5 ML) 100 MG/ML UDC GT SCH ×2 (08:00→20:26)
[2016-08-31] MEDS: BACLOFEN (10 MG) 10 MG TABLET GT SCH ×3 (08:00→16:23)
[2016-08-31] MEDS: CHOLECALCIFEROL 1,000 UNIT TABLET (VIT D3) GT SCH (08:00)
[2016-08-31] MEDS: FOLIC ACID 1 MG TABLET GT SCH ×2 (08:00→16:23)
[2016-08-31] MEDS: CARBAMAZEPINE 200 MG TABLET GT SCH ×3 (08:00→16:23)
[2016-08-31] MEDS: SENNOSIDES 8.6 MG TABLET GT SCH ×2 (08:00→20:28)
[2016-08-31] MEDS: SERTRALINE HCL 25 MG TABLET GT SCH (08:00)
[2016-08-31] MEDS: HEPARIN SODIUM, PORCINE 5000 UNITS/1 ML VIAL SQ SCH ×2 (08:13→20:29)
[2016-08-31 08:16] VITALS: BP 121/60
[2016-08-31] MEDS: HYDROGEN PEROXIDE 480 ML BOTTLE TP SCH ×2 (09:00→20:29)
[2016-08-31] MEDS: Z GUARD REMEDY 2 OZ OINT TP SCH ×2 (09:00→20:29)
[2016-08-31] MEDS: Z GUARD REMEDY 4 OZ OINT TP SCH ×6 (09:00→20:30)
[2016-08-31 19:52] VITALS: BP 104/75
[2016-08-31] MEDS: POLYETHYLENE GLYCOL 3350 17 GM POWD.PACK GT SCH (21:35)
[2016-09-01] MEDS: POLYVINYL ALCOHOL 15 ML BOTTLE EACHEYE SCH ×4 (00:20→18:32)
[2016-09-01] MEDS: ALBUTEROL FS 2.5 MG/3 ML VIAL.NEB NEB SCH ×4 (01:17→19:38)
[2016-09-01] MEDS: CHLORHEXIDINE GLUCONATE 15 ML UDC MM SCH ×2 (05:16→18:32)
[2016-09-01 08:04] VITALS: BP 130/77
[2016-09-01] MEDS: LEVETIRACETAM SOL (5 ML) 100 MG/ML UDC GT SCH ×2 (08:32→20:27)
[2016-09-01] MEDS: BACLOFEN (10 MG) 10 MG TABLET GT SCH ×3 (08:32→17:33)
[2016-09-01] MEDS: SERTRALINE HCL 25 MG TABLET GT SCH (08:32)
[2016-09-01] MEDS: FOLIC ACID 1 MG TABLET GT SCH ×2 (08:32→17:33)
[2016-09-01] MEDS: CARBAMAZEPINE 200 MG TABLET GT SCH ×3 (08:32→17:33)
[2016-09-01] MEDS: SENNOSIDES 8.6 MG TABLET GT SCH ×2 (08:32→20:28)
[2016-09-01] MEDS: CHOLECALCIFEROL 1,000 UNIT TABLET (VIT D3) GT SCH (08:32)
[2016-09-01] MEDS: HEPARIN SODIUM, PORCINE 5000 UNITS/1 ML VIAL SQ SCH ×2 (08:33→20:33)
[2016-09-01] MEDS: Z GUARD REMEDY 2 OZ OINT TP SCH ×2 (10:45→20:33)
[2016-09-01] MEDS: Z GUARD REMEDY 4 OZ OINT TP SCH ×6 (10:45→20:34)
[2016-09-01] MEDS: HYDROGEN PEROXIDE 480 ML BOTTLE TP SCH ×2 (10:45→20:33)
[2016-09-01 19:55] VITALS: BP 106/63
[2016-09-01] MEDS: POLYETHYLENE GLYCOL 3350 17 GM POWD.PACK GT SCH (21:19)
[2016-09-02] MEDS: POLYVINYL ALCOHOL 15 ML BOTTLE EACHEYE SCH ×4 (00:29→18:02)
[2016-09-02] MEDS: ALBUTEROL FS 2.5 MG/3 ML VIAL.NEB NEB SCH ×4 (01:19→19:53)
[2016-09-02] MEDS: CHLORHEXIDINE GLUCONATE 15 ML UDC MM SCH ×2 (05:22→18:02)
[2016-09-02] MEDS: BACLOFEN (10 MG) 10 MG TABLET GT SCH ×3 (08:55→17:05)
[2016-09-02] MEDS: SERTRALINE HCL 25 MG TABLET GT SCH (08:55)
[2016-09-02] MEDS: FOLIC ACID 1 MG TABLET GT SCH ×2 (08:55→17:05)
[2016-09-02] MEDS: CARBAMAZEPINE 200 MG TABLET GT SCH ×3 (08:55→17:05)
[2016-09-02] MEDS: SENNOSIDES 8.6 MG TABLET GT SCH ×2 (08:55→20:52)
[2016-09-02] MEDS: CHOLECALCIFEROL 1,000 UNIT TABLET (VIT D3) GT SCH (08:55)
[2016-09-02] MEDS: LEVETIRACETAM SOL (5 ML) 100 MG/ML UDC GT SCH ×2 (08:55→20:52)
[2016-09-02] MEDS: HEPARIN SODIUM, PORCINE 5000 UNITS/1 ML VIAL SQ SCH ×2 (08:57→20:53)
[2016-09-02] MEDS: Z GUARD REMEDY 2 OZ OINT TP SCH ×2 (09:10→20:53)
[2016-09-02] MEDS: Z GUARD REMEDY 4 OZ OINT TP SCH ×7 (09:10→20:53)
[2016-09-02] MEDS: HYDROGEN PEROXIDE 480 ML BOTTLE TP SCH ×2 (09:10→20:53)
[2016-09-02 09:22] VITALS: BP 118/72
[2016-09-02 20:02] VITALS: BP 97/64
[2016-09-02] MEDS: POLYETHYLENE GLYCOL 3350 17 GM POWD.PACK GT SCH (21:41)
[2016-09-03] MEDS: POLYVINYL ALCOHOL 15 ML BOTTLE EACHEYE SCH ×5 (00:10→23:28)
[2016-09-03] MEDS: ALBUTEROL FS 2.5 MG/3 ML VIAL.NEB NEB SCH ×4 (01:17→19:54)
[2016-09-03] MEDS: CHLORHEXIDINE GLUCONATE 15 ML UDC MM SCH ×2 (05:38→17:23)
[2016-09-03] MEDS: FOLIC ACID 1 MG TABLET GT SCH ×2 (08:21→17:23)
[2016-09-03] MEDS: BACLOFEN (10 MG) 10 MG TABLET GT SCH ×3 (08:21→17:23)
[2016-09-03] MEDS: CHOLECALCIFEROL 1,000 UNIT TABLET (VIT D3) GT SCH (08:21)
[2016-09-03] MEDS: CARBAMAZEPINE 200 MG TABLET GT SCH ×3 (08:21→17:23)
[2016-09-03] MEDS: SERTRALINE HCL 25 MG TABLET GT SCH (08:21)
[2016-09-03] MEDS: LEVETIRACETAM SOL (5 ML) 100 MG/ML UDC GT SCH ×2 (08:21→21:12)
[2016-09-03] MEDS: SENNOSIDES 8.6 MG TABLET GT SCH ×2 (08:21→21:12)
[2016-09-03] MEDS: Z GUARD REMEDY 2 OZ OINT TP SCH ×2 (08:22→21:13)
[2016-09-03] MEDS: Z GUARD REMEDY 4 OZ OINT TP SCH ×8 (08:22→21:13)
[2016-09-03] MEDS: HYDROGEN PEROXIDE 480 ML BOTTLE TP SCH ×2 (08:22→21:13)
[2016-09-03] MEDS: HEPARIN SODIUM, PORCINE 5000 UNITS/1 ML VIAL SQ SCH ×2 (08:22→21:13)
[2016-09-03 08:26] VITALS: BP 140/89
[2016-09-03 20:03] VITALS: BP 100/61
[2016-09-03] MEDS: POLYETHYLENE GLYCOL 3350 17 GM POWD.PACK GT SCH (21:13)
[2016-09-04] MEDS: ALBUTEROL FS 2.5 MG/3 ML VIAL.NEB NEB SCH ×4 (01:13→20:12)
[2016-09-04] MEDS: POLYVINYL ALCOHOL 15 ML BOTTLE EACHEYE SCH ×4 (05:11→23:43)
[2016-09-04] MEDS: CHLORHEXIDINE GLUCONATE 15 ML UDC MM SCH ×2 (05:11→17:51)
[2016-09-04 07:35] VITALS: BP 125/72
[2016-09-04] MEDS: SENNOSIDES 8.6 MG TABLET GT SCH ×2 (08:12→20:54)
[2016-09-04] MEDS: CARBAMAZEPINE 200 MG TABLET GT SCH ×3 (08:12→17:51)
[2016-09-04] MEDS: FOLIC ACID 1 MG TABLET GT SCH ×2 (08:12→17:51)
[2016-09-04] MEDS: CHOLECALCIFEROL 1,000 UNIT TABLET (VIT D3) GT SCH (08:12)
[2016-09-04] MEDS: Z GUARD REMEDY 2 OZ OINT TP SCH ×2 (08:12→20:54)
[2016-09-04] MEDS: SERTRALINE HCL 25 MG TABLET GT SCH (08:12)
[2016-09-04] MEDS: Z GUARD REMEDY 4 OZ OINT TP SCH ×6 (08:12→20:54)
[2016-09-04] MEDS: LEVETIRACETAM SOL (5 ML) 100 MG/ML UDC GT SCH ×2 (08:12→20:54)
[2016-09-04] MEDS: BACLOFEN (10 MG) 10 MG TABLET GT SCH ×3 (08:12→17:51)
[2016-09-04] MEDS: HYDROGEN PEROXIDE 480 ML BOTTLE TP SCH ×2 (08:12→20:54)
[2016-09-04] MEDS: HEPARIN SODIUM, PORCINE 5000 UNITS/1 ML VIAL SQ SCH ×2 (08:13→20:54)
[2016-09-04 20:43] VITALS: BP 114/58
[2016-09-04] MEDS: POLYETHYLENE GLYCOL 3350 17 GM POWD.PACK GT SCH (21:53)
[2016-09-05] MEDS: ALBUTEROL FS 2.5 MG/3 ML VIAL.NEB NEB SCH ×4 (01:21→19:30)
[2016-09-05] MEDS: CHLORHEXIDINE GLUCONATE 15 ML UDC MM SCH ×2 (06:42→17:12)
[2016-09-05] MEDS: POLYVINYL ALCOHOL 15 ML BOTTLE EACHEYE SCH ×4 (06:42→23:55)
[2016-09-05 07:30] VITALS: BP 118/72
[2016-09-05] MEDS: FOLIC ACID 1 MG TABLET GT SCH ×2 (08:42→17:12)
[2016-09-05] MEDS: SENNOSIDES 8.6 MG TABLET GT SCH ×2 (08:42→20:11)
[2016-09-05] MEDS: BACLOFEN (10 MG) 10 MG TABLET GT SCH ×3 (08:42→17:12)
[2016-09-05] MEDS: LEVETIRACETAM SOL (5 ML) 100 MG/ML UDC GT SCH ×2 (08:42→20:11)
[2016-09-05] MEDS: CHOLECALCIFEROL 1,000 UNIT TABLET (VIT D3) GT SCH (08:42)
[2016-09-05] MEDS: CARBAMAZEPINE 200 MG TABLET GT SCH ×3 (08:42→17:12)
[2016-09-05] MEDS: Z GUARD REMEDY 4 OZ OINT TP SCH ×6 (08:44→20:14)
[2016-09-05] MEDS: HEPARIN SODIUM, PORCINE 5000 UNITS/1 ML VIAL SQ SCH ×2 (08:44→20:11)
[2016-09-05] MEDS: HYDROGEN PEROXIDE 480 ML BOTTLE TP SCH ×2 (08:44→20:13)
[2016-09-05] MEDS: SERTRALINE HCL 25 MG TABLET GT SCH (08:49)
[2016-09-05 20:04] VITALS: BP 115/65
[2016-09-05] MEDS: POLYETHYLENE GLYCOL 3350 17 GM POWD.PACK GT SCH (22:00)
[2016-09-06] MEDS: ALBUTEROL FS 2.5 MG/3 ML VIAL.NEB NEB SCH ×4 (02:05→19:13)
[2016-09-06] MEDS: POLYVINYL ALCOHOL 15 ML BOTTLE EACHEYE SCH ×4 (05:55→23:19)
[2016-09-06] MEDS: CHLORHEXIDINE GLUCONATE 15 ML UDC MM SCH ×2 (05:56→17:12)
[2016-09-06 07:39] VITALS: BP 117/52
[2016-09-06] MEDS: Z GUARD REMEDY 4 OZ OINT TP SCH ×6 (09:00→20:18)
[2016-09-06] MEDS: CARBAMAZEPINE 200 MG TABLET GT SCH ×3 (09:42→17:12)
[2016-09-06] MEDS: SERTRALINE HCL 25 MG TABLET GT SCH (09:42)
[2016-09-06] MEDS: LEVETIRACETAM SOL (5 ML) 100 MG/ML UDC GT SCH ×2 (09:42→20:18)
[2016-09-06] MEDS: SENNOSIDES 8.6 MG TABLET GT SCH ×2 (09:42→20:18)
[2016-09-06] MEDS: FOLIC ACID 1 MG TABLET GT SCH ×2 (09:42→17:12)
[2016-09-06] MEDS: CHOLECALCIFEROL 1,000 UNIT TABLET (VIT D3) GT SCH (09:42)
[2016-09-06] MEDS: BACLOFEN (10 MG) 10 MG TABLET GT SCH ×3 (09:42→17:12)
[2016-09-06] MEDS: HYDROGEN PEROXIDE 480 ML BOTTLE TP SCH ×2 (09:43→20:18)
[2016-09-06] MEDS: HEPARIN SODIUM, PORCINE 5000 UNITS/1 ML VIAL SQ SCH ×2 (09:43→20:18)
[2016-09-06 20:51] VITALS: BP 105/52
[2016-09-06] MEDS: POLYETHYLENE GLYCOL 3350 17 GM POWD.PACK GT SCH (21:47)
[2016-09-07] MEDS: ALBUTEROL FS 2.5 MG/3 ML VIAL.NEB NEB SCH ×4 (00:53→19:09)
[2016-09-07] MEDS: CHLORHEXIDINE GLUCONATE 15 ML UDC MM SCH ×2 (05:34→17:04)
[2016-09-07] MEDS: POLYVINYL ALCOHOL 15 ML BOTTLE EACHEYE SCH ×3 (05:34→17:04)
[2016-09-07 07:48] VITALS: BP 121/64
[2016-09-07] MEDS: CARBAMAZEPINE 200 MG TABLET GT SCH ×3 (08:26→17:04)
[2016-09-07] MEDS: LEVETIRACETAM SOL (5 ML) 100 MG/ML UDC GT SCH ×2 (08:26→21:26)
[2016-09-07] MEDS: FOLIC ACID 1 MG TABLET GT SCH ×2 (08:26→17:04)
[2016-09-07] MEDS: SERTRALINE HCL 25 MG TABLET GT SCH (08:26)
[2016-09-07] MEDS: BACLOFEN (10 MG) 10 MG TABLET GT SCH ×3 (08:26→17:04)
[2016-09-07] MEDS: SENNOSIDES 8.6 MG TABLET GT SCH ×2 (08:26→21:26)
[2016-09-07] MEDS: CHOLECALCIFEROL 1,000 UNIT TABLET (VIT D3) GT SCH (08:26)
[2016-09-07] MEDS: HEPARIN SODIUM, PORCINE 5000 UNITS/1 ML VIAL SQ SCH ×2 (08:27→21:27)
[2016-09-07] MEDS: Z GUARD REMEDY 4 OZ OINT TP SCH ×6 (09:02→21:27)
[2016-09-07] MEDS: HYDROGEN PEROXIDE 480 ML BOTTLE TP SCH ×2 (09:02→21:27)
[2016-09-07 19:25] VITALS: BP 126/58
[2016-09-07] MEDS: POLYETHYLENE GLYCOL 3350 17 GM POWD.PACK GT SCH (21:27)
[2016-09-08] MEDS: ALBUTEROL FS 2.5 MG/3 ML VIAL.NEB NEB SCH ×4 (01:25→20:28)
[2016-09-08] MEDS: POLYVINYL ALCOHOL 15 ML BOTTLE EACHEYE SCH ×5 (05:37→23:19)
[2016-09-08] MEDS: CHLORHEXIDINE GLUCONATE 15 ML UDC MM SCH ×2 (05:38→17:50)
[2016-09-08 07:48] VITALS: BP 112/72
[2016-09-08] MEDS: FOLIC ACID 1 MG TABLET GT SCH ×2 (08:36→17:49)
[2016-09-08] MEDS: SERTRALINE HCL 25 MG TABLET GT SCH (08:36)
[2016-09-08] MEDS: BACLOFEN (10 MG) 10 MG TABLET GT SCH ×3 (08:36→17:49)
[2016-09-08] MEDS: CHOLECALCIFEROL 1,000 UNIT TABLET (VIT D3) GT SCH (08:36)
[2016-09-08] MEDS: CARBAMAZEPINE 200 MG TABLET GT SCH ×3 (08:36→17:49)
[2016-09-08] MEDS: SENNOSIDES 8.6 MG TABLET GT SCH ×2 (08:36→20:05)
[2016-09-08] MEDS: LEVETIRACETAM SOL (5 ML) 100 MG/ML UDC GT SCH ×2 (08:36→20:05)
[2016-09-08] MEDS: HEPARIN SODIUM, PORCINE 5000 UNITS/1 ML VIAL SQ SCH ×2 (08:37→20:05)
[2016-09-08] MEDS: HYDROGEN PEROXIDE 480 ML BOTTLE TP SCH ×2 (08:37→20:05)
[2016-09-08] MEDS: Z GUARD REMEDY 4 OZ OINT TP SCH ×6 (08:38→20:05)
[2016-09-08 20:03] VITALS: BP 101/61
[2016-09-08] MEDS: POLYETHYLENE GLYCOL 3350 17 GM POWD.PACK GT SCH (21:08)
[2016-09-09] MEDS: ALBUTEROL FS 2.5 MG/3 ML VIAL.NEB NEB SCH ×4 (01:30→20:26)
[2016-09-09] MEDS: POLYVINYL ALCOHOL 15 ML BOTTLE EACHEYE SCH ×4 (05:22→23:54)
[2016-09-09] MEDS: CHLORHEXIDINE GLUCONATE 15 ML UDC MM SCH ×2 (05:22→17:13)
[2016-09-09 07:52] VITALS: BP 106/70
[2016-09-09] MEDS: FOLIC ACID 1 MG TABLET GT SCH ×2 (09:36→17:11)
[2016-09-09] MEDS: CHOLECALCIFEROL 1,000 UNIT TABLET (VIT D3) GT SCH (09:36)
[2016-09-09] MEDS: SERTRALINE HCL 25 MG TABLET GT SCH (09:36)
[2016-09-09] MEDS: HYDROGEN PEROXIDE 480 ML BOTTLE TP SCH ×2 (09:36→20:25)
[2016-09-09] MEDS: LEVETIRACETAM SOL (5 ML) 100 MG/ML UDC GT SCH ×2 (09:36→20:24)
[2016-09-09] MEDS: Z GUARD REMEDY 4 OZ OINT TP SCH ×6 (09:36→20:25)
[2016-09-09] MEDS: CARBAMAZEPINE 200 MG TABLET GT SCH ×3 (09:36→17:12)
[2016-09-09] MEDS: SENNOSIDES 8.6 MG TABLET GT SCH ×2 (09:36→20:24)
[2016-09-09] MEDS: HEPARIN SODIUM, PORCINE 5000 UNITS/1 ML VIAL SQ SCH ×2 (09:36→20:25)
[2016-09-09] MEDS: BACLOFEN (10 MG) 10 MG TABLET GT SCH ×3 (09:36→17:11)
[2016-09-09 20:40] VITALS: BP 119/60
[2016-09-09] MEDS: POLYETHYLENE GLYCOL 3350 17 GM POWD.PACK GT SCH (22:18)
[2016-09-10] MEDS: ALBUTEROL FS 2.5 MG/3 ML VIAL.NEB NEB SCH ×4 (01:30→19:45)
[2016-09-10] MEDS: POLYVINYL ALCOHOL 15 ML BOTTLE EACHEYE SCH ×3 (05:12→17:57)
[2016-09-10] MEDS: CHLORHEXIDINE GLUCONATE 15 ML UDC MM SCH ×2 (05:12→17:57)
[2016-09-10 07:42] VITALS: BP 124/82
[2016-09-10] MEDS: CARBAMAZEPINE 200 MG TABLET GT SCH ×3 (09:50→17:57)
[2016-09-10] MEDS: FOLIC ACID 1 MG TABLET GT SCH ×2 (09:50→17:57)
[2016-09-10] MEDS: CHOLECALCIFEROL 1,000 UNIT TABLET (VIT D3) GT SCH (09:50)
[2016-09-10] MEDS: LEVETIRACETAM SOL (5 ML) 100 MG/ML UDC GT SCH ×2 (09:50→20:20)
[2016-09-10] MEDS: SERTRALINE HCL 25 MG TABLET GT SCH (09:50)
[2016-09-10] MEDS: SENNOSIDES 8.6 MG TABLET GT SCH ×2 (09:50→20:20)
[2016-09-10] MEDS: BACLOFEN (10 MG) 10 MG TABLET GT SCH ×3 (09:50→17:57)
[2016-09-10] MEDS: Z GUARD REMEDY 4 OZ OINT TP SCH ×6 (09:51→20:21)
[2016-09-10] MEDS: HYDROGEN PEROXIDE 480 ML BOTTLE TP SCH ×2 (09:51→20:21)
[2016-09-10] MEDS: HEPARIN SODIUM, PORCINE 5000 UNITS/1 ML VIAL SQ SCH ×2 (09:51→20:21)
[2016-09-10 20:19] VITALS: BP 100/60
[2016-09-10] MEDS: POLYETHYLENE GLYCOL 3350 17 GM POWD.PACK GT SCH (21:21)
[2016-09-11] MEDS: POLYVINYL ALCOHOL 15 ML BOTTLE EACHEYE SCH ×5 (00:20→23:24)
[2016-09-11] MEDS: ALBUTEROL FS 2.5 MG/3 ML VIAL.NEB NEB SCH ×4 (02:05→19:30)
[2016-09-11] MEDS: CHLORHEXIDINE GLUCONATE 15 ML UDC MM SCH ×2 (05:15→17:18)
[2016-09-11 07:53] VITALS: BP 118/72
[2016-09-11] MEDS: CHOLECALCIFEROL 1,000 UNIT TABLET (VIT D3) GT SCH (08:32)
[2016-09-11] MEDS: BACLOFEN (10 MG) 10 MG TABLET GT SCH ×3 (08:32→17:18)
[2016-09-11] MEDS: HEPARIN SODIUM, PORCINE 5000 UNITS/1 ML VIAL SQ SCH ×2 (08:32→20:15)
[2016-09-11] MEDS: SENNOSIDES 8.6 MG TABLET GT SCH ×2 (08:32→20:15)
[2016-09-11] MEDS: FOLIC ACID 1 MG TABLET GT SCH ×2 (08:32→17:18)
[2016-09-11] MEDS: LEVETIRACETAM SOL (5 ML) 100 MG/ML UDC GT SCH ×2 (08:32→20:15)
[2016-09-11] MEDS: SERTRALINE HCL 25 MG TABLET GT SCH (08:32)
[2016-09-11] MEDS: CARBAMAZEPINE 200 MG TABLET GT SCH ×3 (08:32→17:18)
[2016-09-11] MEDS: HYDROGEN PEROXIDE 480 ML BOTTLE TP SCH ×2 (09:00→20:15)
[2016-09-11] MEDS: Z GUARD REMEDY 4 OZ OINT TP SCH ×6 (09:00→20:15)
[2016-09-11 20:08] VITALS: BP 99/57
[2016-09-11] MEDS: POLYETHYLENE GLYCOL 3350 17 GM POWD.PACK GT SCH (21:16)
[2016-09-12] MEDS: ALBUTEROL FS 2.5 MG/3 ML VIAL.NEB NEB SCH ×4 (01:36→20:21)
[2016-09-12] MEDS: CHLORHEXIDINE GLUCONATE 15 ML UDC MM SCH ×2 (05:11→17:55)
[2016-09-12] MEDS: POLYVINYL ALCOHOL 15 ML BOTTLE EACHEYE SCH ×4 (05:11→23:19)
[2016-09-12 07:40] VITALS: BP 120/69
[2016-09-12] MEDS: CARBAMAZEPINE 200 MG TABLET GT SCH ×3 (08:11→17:55)
[2016-09-12] MEDS: SENNOSIDES 8.6 MG TABLET GT SCH ×2 (08:11→20:27)
[2016-09-12] MEDS: LEVETIRACETAM SOL (5 ML) 100 MG/ML UDC GT SCH ×2 (08:11→20:27)
[2016-09-12] MEDS: FOLIC ACID 1 MG TABLET GT SCH ×2 (08:11→17:55)
[2016-09-12] MEDS: CHOLECALCIFEROL 1,000 UNIT TABLET (VIT D3) GT SCH (08:11)
[2016-09-12] MEDS: BACLOFEN (10 MG) 10 MG TABLET GT SCH ×3 (08:11→17:55)
[2016-09-12] MEDS: SERTRALINE HCL 25 MG TABLET GT SCH (08:12)
[2016-09-12] MEDS: HEPARIN SODIUM, PORCINE 5000 UNITS/1 ML VIAL SQ SCH ×2 (08:12→20:27)
[2016-09-12] MEDS: HYDROGEN PEROXIDE 480 ML BOTTLE TP SCH ×2 (08:13→20:27)
[2016-09-12] MEDS: Z GUARD REMEDY 4 OZ OINT TP SCH ×6 (08:13→20:28)
[2016-09-12 19:41] VITALS: BP 110/64
[2016-09-12] MEDS: POLYETHYLENE GLYCOL 3350 17 GM POWD.PACK GT SCH (21:21)
[2016-09-13] MEDS: ALBUTEROL FS 2.5 MG/3 ML VIAL.NEB NEB SCH ×4 (02:28→19:03)
[2016-09-13] MEDS: POLYVINYL ALCOHOL 15 ML BOTTLE EACHEYE SCH ×4 (05:16→23:18)
[2016-09-13] MEDS: CHLORHEXIDINE GLUCONATE 15 ML UDC MM SCH ×2 (05:16→17:26)
[2016-09-13 07:49] VITALS: BP 110/61
[2016-09-13] MEDS: Z GUARD REMEDY 4 OZ OINT TP SCH ×6 (09:00→20:14)
[2016-09-13] MEDS: HYDROGEN PEROXIDE 480 ML BOTTLE TP SCH ×2 (09:00→20:14)
[2016-09-13] MEDS: SENNOSIDES 8.6 MG TABLET GT SCH ×2 (09:00→20:14)
[2016-09-13] MEDS: FOLIC ACID 1 MG TABLET GT SCH ×2 (09:51→17:26)
[2016-09-13] MEDS: CARBAMAZEPINE 200 MG TABLET GT SCH ×3 (09:51→17:26)
[2016-09-13] MEDS: LEVETIRACETAM SOL (5 ML) 100 MG/ML UDC GT SCH ×2 (09:51→20:14)
[2016-09-13] MEDS: BACLOFEN (10 MG) 10 MG TABLET GT SCH ×3 (09:51→17:26)
[2016-09-13] MEDS: SERTRALINE HCL 25 MG TABLET GT SCH (09:52)
[2016-09-13] MEDS: CHOLECALCIFEROL 1,000 UNIT TABLET (VIT D3) GT SCH (09:52)
[2016-09-13] MEDS: HEPARIN SODIUM, PORCINE 5000 UNITS/1 ML VIAL SQ SCH ×2 (09:53→20:14)
[2016-09-13 20:05] VITALS: BP 112/57
[2016-09-13] MEDS: POLYETHYLENE GLYCOL 3350 17 GM POWD.PACK GT SCH (21:32)
[2016-09-14] MEDS: ALBUTEROL FS 2.5 MG/3 ML VIAL.NEB NEB SCH ×4 (01:01→19:24)
[2016-09-14] MEDS: CHLORHEXIDINE GLUCONATE 15 ML UDC MM SCH ×2 (05:25→17:46)
[2016-09-14] MEDS: POLYVINYL ALCOHOL 15 ML BOTTLE EACHEYE SCH ×4 (05:25→23:19)
[2016-09-14 07:58] VITALS: BP 112/67
[2016-09-14] MEDS: CARBAMAZEPINE 200 MG TABLET GT SCH ×3 (08:28→16:37)
[2016-09-14] MEDS: SENNOSIDES 8.6 MG TABLET GT SCH ×2 (08:28→21:01)
[2016-09-14] MEDS: BACLOFEN (10 MG) 10 MG TABLET GT SCH ×3 (08:28→16:37)
[2016-09-14] MEDS: CHOLECALCIFEROL 1,000 UNIT TABLET (VIT D3) GT SCH (08:28)
[2016-09-14] MEDS: LEVETIRACETAM SOL (5 ML) 100 MG/ML UDC GT SCH ×2 (08:28→21:01)
[2016-09-14] MEDS: SERTRALINE HCL 25 MG TABLET GT SCH (08:28)
[2016-09-14] MEDS: Z GUARD REMEDY 4 OZ OINT TP SCH ×6 (08:32→21:02)
[2016-09-14] MEDS: HEPARIN SODIUM, PORCINE 5000 UNITS/1 ML VIAL SQ SCH ×2 (08:32→21:02)
[2016-09-14] MEDS: HYDROGEN PEROXIDE 480 ML BOTTLE TP SCH ×2 (08:32→21:02)
[2016-09-14] MEDS: FOLIC ACID 1 MG TABLET GT SCH ×2 (08:42→16:37)
[2016-09-14 19:40] VITALS: BP 134/76
[2016-09-14] MEDS: POLYETHYLENE GLYCOL 3350 17 GM POWD.PACK GT SCH (21:02)
[2016-09-15] MEDS: ALBUTEROL FS 2.5 MG/3 ML VIAL.NEB NEB SCH ×4 (02:19→19:30)
[2016-09-15] MEDS: CHLORHEXIDINE GLUCONATE 15 ML UDC MM SCH ×2 (05:01→17:30)
[2016-09-15] MEDS: POLYVINYL ALCOHOL 15 ML BOTTLE EACHEYE SCH ×3 (05:01→17:30)
[2016-09-15] MEDS: LEVETIRACETAM SOL (5 ML) 100 MG/ML UDC GT SCH (08:11)
[2016-09-15] MEDS: FOLIC ACID 1 MG TABLET GT SCH ×2 (08:11→17:30)
[2016-09-15] MEDS: SENNOSIDES 8.6 MG TABLET GT SCH (08:12)
[2016-09-15] MEDS: BACLOFEN (10 MG) 10 MG TABLET GT SCH ×3 (08:12→17:30)
[2016-09-15] MEDS: HYDROGEN PEROXIDE 480 ML BOTTLE TP SCH (08:13)
[2016-09-15] MEDS: Z GUARD REMEDY 4 OZ OINT TP SCH ×3 (08:13→08:14)
[2016-09-15] MEDS: CHOLECALCIFEROL 1,000 UNIT TABLET (VIT D3) GT SCH (08:13)
[2016-09-15] MEDS: CARBAMAZEPINE 200 MG TABLET GT SCH ×3 (08:13→17:30)
[2016-09-15] MEDS: SERTRALINE HCL 25 MG TABLET GT SCH (08:13)
[2016-09-15 08:18] VITALS: BP 107/67
[2016-09-15] MEDS: HEPARIN SODIUM, PORCINE 5000 UNITS/1 ML VIAL SQ SCH (08:22)
[2016-09-15 16:35] LABS: KETONES,URINE NEGATIVE (NEGATIVE); LEUKOCYTE ESTERASE ,URINE 2+ (NEGATIVE); PH,URINE 6.5 (5.0-8.0)
[2016-09-15 16:45] LABS: ADD UA MICROSCOPIC YES
[2016-09-15 16:51] LABS: ADD URINE CULTURE YES; RBC,URINE TOO NUMEROUS TO COUN /HPF (0-2)
[2016-09-16] MEDS ORDERED: ALBU2.5V38 NEB (08:41)
[2016-09-16] MEDS ORDERED: CHLO15MO2 MM (11:57)
[2016-09-16] MEDS ORDERED: LACT-15 PO (11:57)
[2016-09-20] MEDS ORDERED: CHLORHEXIDINE GLUCONATE 4% 118 ML BOTTLE TP SCH (12:00)
[2016-10-18] MEDS ORDERED: TUBERCULIN,PURIF.PROT.DERIV. 5 TU/0.1 ML DISP.SYRIN ID SCH (09:00)
== END 2016-09-23 15:50 | disposition short-term general hospital (02) | DRG 189 ==
LOC: SA
PROVIDERS: ADMIT Internal Medicine; ATTEND Internal Medicine
DX: J96.11 Chronic respiratory failure with hypoxia (principal); R53.2 Functional quadriplegia; G93.40 Encephalopathy, unspecified; G93.1 Anoxic brain damage, not elsewhere classified; R40.3 Persistent vegetative state; J95.01 Hemorrhage from tracheostomy stoma; R13.10 Dysphagia, unspecified; G24.9 Dystonia, unspecified; E55.9 Vitamin D deficiency, unspecified; Z93.1 Gastrostomy status; Z86.73 Personal history of transient ischemic attack (TIA), and cerebral infarction without residual deficits; I10 Essential (primary) hypertension; L08.9 Local infection of the skin and subcutaneous tissue, unspecified; K21.9 Gastro-esophageal reflux disease without esophagitis; Z87.440 Personal history of urinary (tract) infections; M19.90 Unspecified osteoarthritis, unspecified site; D63.8 Anemia in other chronic diseases classified elsewhere; M24.50 Contracture, unspecified joint; G40.409 Other generalized epilepsy and epileptic syndromes, not intractable, without status epilepticus; F32.9 Major depressive disorder, single episode, unspecified; J06.9 Acute upper respiratory infection, unspecified
CPT/HCPCS: 31720; 36415; 71010-TC; 76856-TC; 80053-TC; 80156-TC; 81000-TC; 84443-TC; 85025-TC; 87040-TC; 87086-TC; 87186-TC; 94003-TC; 94640-TC; 94799-TC; 97001-TC; A4623; A6402; A7526; J1644; L8501; Z7610

== ENCOUNTER 2016-09-15 18:52 | Inpatient (IN) | payer OTHER ==
[~2016-09-15] VITALS: Ht 167.6 cm; Wt 53.2 kg
[2016-09-15] MEDS ORDERED: CEFTRIAXONE 1GM BAG (ER ONLY) 50 ML IV ONE ×2 (19:30→19:45)
[2016-09-15] MEDS ORDERED: ACETAMINOPHEN 325 MG TABLET PO ONE (19:30)
[2016-09-15] MEDS ORDERED: IV NS 0.9% 1,000 ML BAG IV ONE ×2 (19:30)
[2016-09-15] MEDS ORDERED: IV SET PRIMARY 1 EA INFUS.SET MC ONE (19:45)
[2016-09-15] MEDS ORDERED: SECONDARY IV SET 1 EA INFUS.SET MC ONE (19:45)
[2016-09-15] MEDS ORDERED: ACETAMINOPHEN 325 MG TABLET ONE (19:45)
[2016-09-15] MEDS ORDERED: IV NS 0.9% 2,000 ML ONE (19:45)
[2016-09-15 19:46] LABS: BASOPHILS % (AUTO) 0.2 % (0.0-2.0); DIFF TOTAL % 100 %; EOSINOPHILS % (AUTO) 0.1 % (0.0-6.0); HEMATOCRIT 42 % (33-45); HEMOGLOBIN 13.7 g/dL (11.5-14.8); LYMPHOCYTES # (AUTO) 1.2 /CMM (0.8-4.8); LYMPHOCYTES % (AUTO) 11.6 % (20.0-44.0); MEAN CORPUSCULAR HEMOGLOBIN 32 PG (26.0-33.0); MEAN CORPUSCULAR HGB CONC 33 g/dl (31.0-36.0); MEAN CORPUSCULAR VOLUME 96 fL (82-100); MONOCYTES # (AUTO) 0.4 /CMM (0.1-1.30); MONOCYTES % (AUTO) 4.4 % (2.0-12.0); NEUTROPHILS # (AUTO) 8.4 /CMM (1.8-8.9); NEUTROPHILS % (AUTO) 83.7 % (43.0-81.0); PLATELET COUNT (AUTO) 202 /CMM (150-450); RED BLOOD CELL COUNT(AUTO) 4.33 MIL/uL (4.0-5.2); WHITE BLOOD COUNT (AUTO) 10.1 K/uL (4.3-11.0)
[2016-09-15 19:59] LABS: INR 1.01 (0.87-1.13); PROTHROMBIN TIME 10.6 SECS (9.5-12.7)
[2016-09-15 20:15] LABS: ALANINE AMINOTRANSFERASE 198 U/L (12-78); ALBUMIN 3.2 g/dL (3.4-5.0); ANION GAP 11 (5-14); ASPARTATE AMINOTRANSFERASE 231 U/L (15-37); BILIRUBIN,DIRECT 0.1 mg/dL (0.0-0.2); BILIRUBIN,TOTAL 0.4 mg/dL (0.2-1.0); CALCIUM, SERUM 8.9 mg/dL (8.5-10.1); CARBON DIOXIDE 28 mmol/L (21-32); CHLORIDE 101 mmol/L (98-107); CREATININE 0.6 mg/dL (0.6-1.3); GFR 105 mL/min (>60); GLUCOSE 113 mg/dL (74-106); INDIRECT BILIRUBIN 0.3 mg/dL (0.0-1.1); POTASSIUM 4.3 mmol/L (3.5-5.1); SODIUM SERUM 136 mmol/L (136-145); TOTAL PROTEIN, SERUM 7.4 g/dL (6.4-8.2); UREA NITROGEN, BLOOD 8 mg/dL (7-18)
[2016-09-15 20:52] LABS: LACTIC ACID 3.8 mmol/L (0.4-2.0)
[2016-09-15 20:53] LABS: *LACTIC ACID REFLEX FLAG YES
[2016-09-15] MEDS ORDERED: IBUPROFEN 600 MG TABLET PO ONE ×2 (21:00→21:24)
[2016-09-15 21:10] VITALS: BP 98/53
[2016-09-15] MEDS ORDERED: ACETAMINOPHEN 650 MG/20.3 ML UDC GT PRN (22:30)
[2016-09-15] MEDS ORDERED: ACETAMINOPHEN 325 MG TABLET PO PRN (22:30)
[2016-09-15] MEDS ORDERED: IBUPROFEN SUSP 100 MG/5 ML UDC GT PRN (22:30)
[2016-09-15] MEDS ORDERED: IV D5/0.45 NACL 1,000 ML IV ONE (23:02)
[2016-09-15] MEDS ORDERED: IV SET PRIMARY PUMP SET 1 EA INFUS.SET MC ONE (23:02)
[2016-09-15] MEDS: IV D5/0.45 NACL 1,000 ML IV SCH (23:10)
[2016-09-16] VITALS: BP 89/46
[2016-09-16] MEDS ORDERED: IV NS 0.9% 1,000 ML ONE ×2 (00:26→02:15)
[2016-09-16] MEDS ORDERED: IV SET PRIMARY PUMP SET 1 EA INFUS.SET MC ONE (00:28)
[2016-09-16] MEDS ORDERED: IV NS 0.9% 1,000 ML IV ONE (00:30)
[2016-09-16] MEDS ORDERED: IV NS 0.9% 1,000 ML IV PRN (02:30)
[2016-09-16] MEDS: IV D5/0.45 NACL 1,000 ML IV SCH (02:50)
[2016-09-16 04:00] VITALS: BP 106/78
[2016-09-16 05:38] LABS: BASOPHILS % (AUTO) 0.1 % (0.0-2.0); DIFF TOTAL % 100 %; EOSINOPHILS % (AUTO) 0.2 % (0.0-6.0); HEMATOCRIT 36 % (33-45); HEMOGLOBIN 11.8 g/dL (11.5-14.8); LYMPHOCYTES % (AUTO) 19.1 % (20.0-44.0); MEAN CORPUSCULAR HEMOGLOBIN 32 PG (26.0-33.0); MEAN CORPUSCULAR HGB CONC 33 g/dl (31.0-36.0); MEAN CORPUSCULAR VOLUME 96 fL (82-100); MONOCYTES # (AUTO) 1.4 /CMM (0.1-1.30); MONOCYTES % (AUTO) 13.1 % (2.0-12.0); NEUTROPHILS % (AUTO) 67.5 % (43.0-81.0); PLATELET COUNT (AUTO) 165 /CMM (150-450); RED BLOOD CELL COUNT(AUTO) 3.68 MIL/uL (4.0-5.2); WHITE BLOOD COUNT (AUTO) 10.4 K/uL (4.3-11.0)
[2016-09-16 05:52] LABS: CALCIUM, SERUM 8.2 mg/dL (8.5-10.1); CREATININE 0.5 mg/dL (0.6-1.3); PHOSPHORUS 2.9 mg/dL (2.5-4.9); POTASSIUM 3.7 mmol/L (3.5-5.1)
[2016-09-16 08:00] VITALS: BP 99/58
[2016-09-16] MEDS ORDERED: ALBU2.5V38 NEB (08:41)
[2016-09-16] MEDS: IV D5/0.45 NACL 1,000 ML IV PRN ×2 (10:06→21:45)
[2016-09-16] MEDS ORDERED: Z GUARD REMEDY 2 OZ OINT TP PRN (11:00)
[2016-09-16] MEDS ORDERED: MAGNESIUM HYDROXIDE 30 ML UDC GT PRN (11:30)
[2016-09-16] MEDS ORDERED: LORAZEPAM INJ 2 MG/ML VIAL IM PRN (11:30)
[2016-09-16] MEDS: Z GUARD REMEDY 2 OZ OINT TP SCH (11:34)
[2016-09-16] MEDS: LEVETIRACETAM SOL (5 ML) 100 MG/ML UDC GT SCH ×2 (11:54→20:12)
[2016-09-16] MEDS: SERTRALINE HCL 25 MG TABLET GT SCH (11:54)
[2016-09-16] MEDS: CHOLECALCIFEROL 1,000 UNIT TABLET (VIT D3) GT SCH (11:55)
[2016-09-16] MEDS: SENNOSIDES 8.6 MG TABLET GT SCH ×2 (11:55→20:13)
[2016-09-16] MEDS ORDERED: CHLO15MO2 MM (11:57)
[2016-09-16] MEDS: HEPARIN SODIUM, PORCINE 5000 UNITS/1 ML VIAL SQ SCH ×2 (11:57→20:14)
[2016-09-16] MEDS ORDERED: LACT-15 PO (11:57)
[2016-09-16 12:00] VITALS: BP 116/64
[2016-09-16] MEDS ORDERED: IBUPROFEN SUSP 100 MG/5 ML UDC GT PRN (12:00)
[2016-09-16] MEDS: BACLOFEN (10 MG) 10 MG TABLET GT SCH ×2 (12:16→16:18)
[2016-09-16] MEDS: POLYVINYL ALCOHOL 15 ML BOTTLE EACHEYE SCH ×3 (12:39→23:13)
[2016-09-16] MEDS: Magnesium 1GM/D5W 100ML PREMIX 100 ML IV SCH ×2 (13:22→14:38)
[2016-09-16] MEDS: CARBAMAZEPINE 200 MG TABLET GT SCH ×2 (13:27→16:18)
[2016-09-16] MEDS: ALBUTEROL FS 2.5 MG/3 ML VIAL.NEB NEB SCH ×2 (13:38→19:53)
[2016-09-16 16:00] VITALS: BP 102/59
[2016-09-16] MEDS: FOLIC ACID 1 MG TABLET GT SCH (16:18)
[2016-09-16] MEDS ORDERED: BOOST PLUS FOOD-CHOCLATE 237 ML BOX PO PRN (17:00)
[2016-09-16] MEDS: CHLORHEXIDINE GLUCONATE 15 ML UDC MM SCH (17:14)
[2016-09-16 20:00] VITALS: BP 123/58
[2016-09-16] MEDS: CEFTRIAXONE 1 G in IV D5W 50 ML IV SCH (20:12)
[2016-09-16] MEDS: DOXYCYCLINE HYCLATE (100 MG) 100 MG TABLET GT SCH (20:13)
[2016-09-16] MEDS ORDERED: SECONDARY IV SET 1 EA INFUS.SET MC ONE (20:29)
[2016-09-16] MEDS: POLYETHYLENE GLYCOL 3350 17 GM POWD.PACK GT SCH (22:24)
[2016-09-17] VITALS: BP 112/72
[2016-09-17] MEDS: ALBUTEROL FS 2.5 MG/3 ML VIAL.NEB NEB SCH ×4 (01:27→20:19)
[2016-09-17 04:00] VITALS: BP 99/55
[2016-09-17] MEDS: CHLORHEXIDINE GLUCONATE 15 ML UDC MM SCH ×2 (05:10→18:08)
[2016-09-17] MEDS: POLYVINYL ALCOHOL 15 ML BOTTLE EACHEYE SCH ×3 (05:11→18:07)
[2016-09-17 07:15] LABS: CALCIUM, SERUM 8.3 mg/dL (8.5-10.1); CREATININE 0.4 mg/dL (0.6-1.3); POTASSIUM 3.2 mmol/L (3.5-5.1)
[2016-09-17] MEDS: IV D5/0.45 NACL 1,000 ML IV PRN ×2 (07:55→18:08)
[2016-09-17 08:00] VITALS: BP 102/49
[2016-09-17] MEDS: FOLIC ACID 1 MG TABLET GT SCH ×2 (09:04→17:52)
[2016-09-17] MEDS: LEVETIRACETAM SOL (5 ML) 100 MG/ML UDC GT SCH ×2 (09:05→20:08)
[2016-09-17] MEDS: BACLOFEN (10 MG) 10 MG TABLET GT SCH ×3 (09:05→17:48)
[2016-09-17] MEDS: SENNOSIDES 8.6 MG TABLET GT SCH ×2 (09:06→20:08)
[2016-09-17] MEDS: DOXYCYCLINE HYCLATE (100 MG) 100 MG TABLET GT SCH ×2 (09:07→20:09)
[2016-09-17] MEDS: CHOLECALCIFEROL 1,000 UNIT TABLET (VIT D3) GT SCH (09:07)
[2016-09-17] MEDS: SERTRALINE HCL 25 MG TABLET GT SCH (09:09)
[2016-09-17] MEDS: CARBAMAZEPINE 200 MG TABLET GT SCH ×3 (09:10→17:48)
[2016-09-17] MEDS: HEPARIN SODIUM, PORCINE 5000 UNITS/1 ML VIAL SQ SCH ×2 (09:13→20:11)
[2016-09-17] MEDS: Z GUARD REMEDY 2 OZ OINT TP SCH (09:29)
[2016-09-17 12:00] VITALS: BP 93/58
[2016-09-17] MEDS: POTASSIUM CHLORIDE 20 MEQ POWDER PACKET GT SCH ×2 (12:56→14:29)
[2016-09-17 16:00] VITALS: BP 129/69
[2016-09-17 20:00] VITALS: BP 104/72
[2016-09-17] MEDS: CEFTRIAXONE 1 G in IV D5W 50 ML IV SCH (20:08)
[2016-09-17] MEDS: POLYETHYLENE GLYCOL 3350 17 GM POWD.PACK GT SCH (21:30)
[2016-09-18] VITALS: BP 103/61
[2016-09-18] MEDS: POLYVINYL ALCOHOL 15 ML BOTTLE EACHEYE SCH ×4 (00:43→18:17)
[2016-09-18] MEDS: ALBUTEROL FS 2.5 MG/3 ML VIAL.NEB NEB SCH ×4 (02:00→19:16)
[2016-09-18 04:00] VITALS: BP 105/72
[2016-09-18] MEDS: IV D5/0.45 NACL 1,000 ML IV PRN (05:17)
[2016-09-18] MEDS: CHLORHEXIDINE GLUCONATE 15 ML UDC MM SCH ×2 (05:18→18:17)
[2016-09-18 06:34] LABS: BASOPHILS % (AUTO) 0.5 % (0.0-2.0); DIFF TOTAL % 100 %; EOSINOPHILS # (AUTO) 0.1 /CMM (0.0-0.7); EOSINOPHILS % (AUTO) 1.8 % (0.0-6.0); HEMATOCRIT 35 % (33-45); HEMOGLOBIN 11.6 g/dL (11.5-14.8); LYMPHOCYTES # (AUTO) 1.8 /CMM (0.8-4.8); MEAN CORPUSCULAR HEMOGLOBIN 32 PG (26.0-33.0); MEAN CORPUSCULAR HGB CONC 34 g/dl (31.0-36.0); MEAN CORPUSCULAR VOLUME 96 fL (82-100); MONOCYTES # (AUTO) 0.6 /CMM (0.1-1.30); MONOCYTES % (AUTO) 14.8 % (2.0-12.0); NEUTROPHILS # (AUTO) 1.7 /CMM (1.8-8.9); NEUTROPHILS % (AUTO) 39.9 % (43.0-81.0); PLATELET COUNT (AUTO) 207 /CMM (150-450); WHITE BLOOD COUNT (AUTO) 4.2 K/uL (4.3-11.0)
[2016-09-18 06:41] LABS: CALCIUM, SERUM 8.5 mg/dL (8.5-10.1); CREATININE 0.4 mg/dL (0.6-1.3); POTASSIUM 3.5 mmol/L (3.5-5.1)
[2016-09-18 08:00] VITALS: BP 120/74
[2016-09-18] MEDS: FOLIC ACID 1 MG TABLET GT SCH ×2 (08:39→16:47)
[2016-09-18] MEDS: BACLOFEN (10 MG) 10 MG TABLET GT SCH ×3 (08:40→16:46)
[2016-09-18] MEDS: SENNOSIDES 8.6 MG TABLET GT SCH ×2 (08:40→20:26)
[2016-09-18] MEDS: CARBAMAZEPINE 200 MG TABLET GT SCH ×3 (08:40→16:46)
[2016-09-18] MEDS: DOXYCYCLINE HYCLATE (100 MG) 100 MG TABLET GT SCH ×2 (08:40→20:26)
[2016-09-18] MEDS: LEVETIRACETAM SOL (5 ML) 100 MG/ML UDC GT SCH ×2 (08:40→20:30)
[2016-09-18] MEDS: CHOLECALCIFEROL 1,000 UNIT TABLET (VIT D3) GT SCH (08:41)
[2016-09-18] MEDS: SERTRALINE HCL 25 MG TABLET GT SCH (08:41)
[2016-09-18] MEDS: Z GUARD REMEDY 2 OZ OINT TP SCH (08:42)
[2016-09-18] MEDS: HEPARIN SODIUM, PORCINE 5000 UNITS/1 ML VIAL SQ SCH ×2 (09:16→20:29)
[2016-09-18 12:00] VITALS: BP 121/72
[2016-09-18] MEDS ORDERED: IV SET PRIMARY PUMP SET 1 EA INFUS.SET MC ONE (14:07)
[2016-09-18 16:00] VITALS: BP 103/65
[2016-09-18 20:00] VITALS: BP 100/61
[2016-09-18] MEDS: CEFTRIAXONE 1 G in IV D5W 50 ML IV SCH (20:20)
[2016-09-19] VITALS (7 sets, daily range): BP systolic 97–119; BP diastolic 50–67
[2016-09-19] MEDS: ALBUTEROL FS 2.5 MG/3 ML VIAL.NEB NEB SCH ×4 (01:18→19:47)
[2016-09-19 06:44] LABS: CALCIUM, SERUM 8.9 mg/dL (8.5-10.1); CREATININE 0.5 mg/dL (0.6-1.3); POTASSIUM 3.6 mmol/L (3.5-5.1)
[2016-09-19] MEDS: CHLORHEXIDINE GLUCONATE 15 ML UDC MM SCH ×2 (06:52→17:39)
[2016-09-19] MEDS: POLYETHYLENE GLYCOL 3350 17 GM POWD.PACK GT SCH ×2 (06:53→21:05)
[2016-09-19] MEDS: POLYVINYL ALCOHOL 15 ML BOTTLE EACHEYE SCH ×5 (06:55→23:16)
[2016-09-19] MEDS: BACLOFEN (10 MG) 10 MG TABLET GT SCH ×3 (08:30→17:39)
[2016-09-19] MEDS: FOLIC ACID 1 MG TABLET GT SCH ×2 (08:30→17:39)
[2016-09-19] MEDS: LEVETIRACETAM SOL (5 ML) 100 MG/ML UDC GT SCH ×2 (08:30→20:14)
[2016-09-19] MEDS: SERTRALINE HCL 25 MG TABLET GT SCH (08:31)
[2016-09-19] MEDS: DOXYCYCLINE HYCLATE (100 MG) 100 MG TABLET GT SCH ×2 (08:31→20:14)
[2016-09-19] MEDS: CHOLECALCIFEROL 1,000 UNIT TABLET (VIT D3) GT SCH (08:31)
[2016-09-19] MEDS: CARBAMAZEPINE 200 MG TABLET GT SCH ×3 (08:31→17:39)
[2016-09-19] MEDS: SENNOSIDES 8.6 MG TABLET GT SCH ×2 (08:31→20:14)
[2016-09-19] MEDS: HEPARIN SODIUM, PORCINE 5000 UNITS/1 ML VIAL SQ SCH ×2 (08:32→20:16)
[2016-09-19] MEDS: Z GUARD REMEDY 2 OZ OINT TP SCH (08:33)
[2016-09-19] MEDS: CEFTRIAXONE 1 G in IV D5W 50 ML IV SCH (19:39)
[2016-09-20] VITALS (7 sets, daily range): BP systolic 98–115; BP diastolic 50–61
[2016-09-20] MEDS: ALBUTEROL FS 2.5 MG/3 ML VIAL.NEB NEB SCH ×4 (01:14→19:34)
[2016-09-20] MEDS: POLYVINYL ALCOHOL 15 ML BOTTLE EACHEYE SCH ×3 (05:10→17:01)
[2016-09-20] MEDS: CHLORHEXIDINE GLUCONATE 15 ML UDC MM SCH ×2 (05:10→16:59)
[2016-09-20 06:46] LABS: CALCIUM, SERUM 8.8 mg/dL (8.5-10.1); CREATININE 0.5 mg/dL (0.6-1.3); POTASSIUM 3.6 mmol/L (3.5-5.1)
[2016-09-20] MEDS: CHOLECALCIFEROL 1,000 UNIT TABLET (VIT D3) GT SCH (08:49)
[2016-09-20] MEDS: LEVETIRACETAM SOL (5 ML) 100 MG/ML UDC GT SCH ×2 (08:49→20:00)
[2016-09-20] MEDS: CARBAMAZEPINE 200 MG TABLET GT SCH ×3 (08:50→16:59)
[2016-09-20] MEDS: Z GUARD REMEDY 2 OZ OINT TP SCH (08:50)
[2016-09-20] MEDS: BACLOFEN (10 MG) 10 MG TABLET GT SCH ×3 (08:50→16:59)
[2016-09-20] MEDS: SENNOSIDES 8.6 MG TABLET GT SCH ×2 (08:50→20:01)
[2016-09-20] MEDS: SERTRALINE HCL 25 MG TABLET GT SCH (08:50)
[2016-09-20] MEDS: FOLIC ACID 1 MG TABLET GT SCH ×2 (08:50→16:59)
[2016-09-20] MEDS: DOXYCYCLINE HYCLATE (100 MG) 100 MG TABLET GT SCH ×2 (08:50→20:00)
[2016-09-20] MEDS: HEPARIN SODIUM, PORCINE 5000 UNITS/1 ML VIAL SQ SCH ×2 (08:58→20:01)
[2016-09-20] MEDS: CEFTRIAXONE 1 G in IV D5W 50 ML IV SCH (19:29)
[2016-09-20] MEDS: POLYETHYLENE GLYCOL 3350 17 GM POWD.PACK GT SCH (21:08)
[2016-09-21] VITALS: BP 105/57
[2016-09-21] MEDS: POLYVINYL ALCOHOL 15 ML BOTTLE EACHEYE SCH ×5 (00:06→23:29)
[2016-09-21] MEDS: ALBUTEROL FS 2.5 MG/3 ML VIAL.NEB NEB SCH ×4 (02:31→19:55)
[2016-09-21 04:00] VITALS: BP 122/62
[2016-09-21] MEDS: CHLORHEXIDINE GLUCONATE 15 ML UDC MM SCH ×2 (05:00→17:28)
[2016-09-21 06:24] LABS: BASOPHILS % (AUTO) 0.9 % (0.0-2.0); DIFF TOTAL % 100 %; EOSINOPHILS # (AUTO) 0.1 /CMM (0.0-0.7); HEMATOCRIT 37 % (33-45); LYMPHOCYTES # (AUTO) 1.8 /CMM (0.8-4.8); LYMPHOCYTES % (AUTO) 38.3 % (20.0-44.0); MEAN CORPUSCULAR HEMOGLOBIN 32 PG (26.0-33.0); MEAN CORPUSCULAR HGB CONC 33 g/dl (31.0-36.0); MEAN CORPUSCULAR VOLUME 97 fL (82-100); MONOCYTES # (AUTO) 0.3 /CMM (0.1-1.30); MONOCYTES % (AUTO) 7.2 % (2.0-12.0); NEUTROPHILS # (AUTO) 2.3 /CMM (1.8-8.9); NEUTROPHILS % (AUTO) 50.6 % (43.0-81.0); PLATELET COUNT (AUTO) 253 /CMM (150-450); RED BLOOD CELL COUNT(AUTO) 3.78 MIL/uL (4.0-5.2); WHITE BLOOD COUNT (AUTO) 4.6 K/uL (4.3-11.0)
[2016-09-21 06:41] LABS: ALBUMIN 2.6 g/dL (3.4-5.0); BILIRUBIN,TOTAL 0.2 mg/dL (0.2-1.0); CALCIUM, SERUM 8.7 mg/dL (8.5-10.1); CREATININE 0.5 mg/dL (0.6-1.3); POTASSIUM 3.9 mmol/L (3.5-5.1); TOTAL PROTEIN, SERUM 6.4 g/dL (6.4-8.2)
[2016-09-21 08:00] VITALS: BP 122/72
[2016-09-21] MEDS: FOLIC ACID 1 MG TABLET GT SCH ×2 (08:01→16:14)
[2016-09-21] MEDS: DOXYCYCLINE HYCLATE (100 MG) 100 MG TABLET GT SCH ×2 (08:01→20:21)
[2016-09-21] MEDS: CHOLECALCIFEROL 1,000 UNIT TABLET (VIT D3) GT SCH (08:01)
[2016-09-21] MEDS: SENNOSIDES 8.6 MG TABLET GT SCH ×2 (08:01→20:21)
[2016-09-21] MEDS: SERTRALINE HCL 25 MG TABLET GT SCH (08:01)
[2016-09-21] MEDS: CARBAMAZEPINE 200 MG TABLET GT SCH ×3 (08:01→16:14)
[2016-09-21] MEDS: BACLOFEN (10 MG) 10 MG TABLET GT SCH ×3 (08:01→16:14)
[2016-09-21] MEDS: LEVETIRACETAM SOL (5 ML) 100 MG/ML UDC GT SCH ×2 (08:01→20:21)
[2016-09-21] MEDS: Z GUARD REMEDY 2 OZ OINT TP SCH (08:02)
[2016-09-21] MEDS: HEPARIN SODIUM, PORCINE 5000 UNITS/1 ML VIAL SQ SCH ×2 (08:02→20:22)
[2016-09-21 12:00] VITALS: BP_SYST 122; BP_SYST 97; BP_DIAS 49; BP_DIAS 72
[2016-09-21 16:00] VITALS: BP 109/57
[2016-09-21 20:00] VITALS: BP 111/61
[2016-09-21] MEDS: CEFTRIAXONE 1 G in IV D5W 50 ML IV SCH (20:20)
[2016-09-21] MEDS ORDERED: SECONDARY IV SET 1 EA INFUS.SET MC ONE (20:26)
[2016-09-21] MEDS: POLYETHYLENE GLYCOL 3350 17 GM POWD.PACK GT SCH (21:01)
[2016-09-22] VITALS: BP 136/83
[2016-09-22] MEDS: ALBUTEROL FS 2.5 MG/3 ML VIAL.NEB NEB SCH ×4 (02:22→19:38)
[2016-09-22 04:00] VITALS: BP 98/66
[2016-09-22] MEDS: CHLORHEXIDINE GLUCONATE 15 ML UDC MM SCH ×2 (05:23→16:29)
[2016-09-22] MEDS: POLYVINYL ALCOHOL 15 ML BOTTLE EACHEYE SCH ×4 (05:24→23:14)
[2016-09-22 07:01] LABS: CREATININE 0.6 mg/dL (0.6-1.3); POTASSIUM 4.6 mmol/L (3.5-5.1)
[2016-09-22 08:00] VITALS: BP 109/63
[2016-09-22] MEDS: DOXYCYCLINE HYCLATE (100 MG) 100 MG TABLET GT SCH ×2 (08:12→21:07)
[2016-09-22] MEDS: BACLOFEN (10 MG) 10 MG TABLET GT SCH ×3 (08:12→16:29)
[2016-09-22] MEDS: FOLIC ACID 1 MG TABLET GT SCH ×2 (08:12→16:29)
[2016-09-22] MEDS: LEVETIRACETAM SOL (5 ML) 100 MG/ML UDC GT SCH ×2 (08:12→21:06)
[2016-09-22] MEDS: Z GUARD REMEDY 2 OZ OINT TP SCH (08:12)
[2016-09-22] MEDS: CARBAMAZEPINE 200 MG TABLET GT SCH ×3 (08:12→16:29)
[2016-09-22] MEDS: CHOLECALCIFEROL 1,000 UNIT TABLET (VIT D3) GT SCH (08:12)
[2016-09-22] MEDS: SENNOSIDES 8.6 MG TABLET GT SCH ×2 (08:12→21:06)
[2016-09-22] MEDS: SERTRALINE HCL 25 MG TABLET GT SCH (08:12)
[2016-09-22] MEDS: HEPARIN SODIUM, PORCINE 5000 UNITS/1 ML VIAL SQ SCH ×2 (08:16→21:09)
[2016-09-22 12:00] VITALS: BP 103/53
[2016-09-22 16:00] VITALS: BP 120/44
[2016-09-22 20:00] VITALS: BP 111/55
[2016-09-22] MEDS: CEFTRIAXONE 1 G in IV D5W 50 ML IV SCH (21:05)
[2016-09-22] MEDS: POLYETHYLENE GLYCOL 3350 17 GM POWD.PACK GT SCH (21:10)
[2016-09-22] MEDS ORDERED: IV NS 0.9% 250 ML IV ONE (21:41)
[2016-09-23] VITALS: BP 118/68
[2016-09-23] MEDS: ALBUTEROL FS 2.5 MG/3 ML VIAL.NEB NEB SCH ×3 (01:19→13:16)
[2016-09-23 04:00] VITALS: BP 115/52
[2016-09-23] MEDS: POLYVINYL ALCOHOL 15 ML BOTTLE EACHEYE SCH ×2 (05:38→12:14)
[2016-09-23] MEDS: CHLORHEXIDINE GLUCONATE 15 ML UDC MM SCH (05:38)
[2016-09-23 08:00] VITALS: BP 120/44
[2016-09-23] MEDS: SENNOSIDES 8.6 MG TABLET GT SCH (08:31)
[2016-09-23] MEDS: HEPARIN SODIUM, PORCINE 5000 UNITS/1 ML VIAL SQ SCH (08:31)
[2016-09-23] MEDS: SERTRALINE HCL 25 MG TABLET GT SCH (08:31)
[2016-09-23] MEDS: LEVETIRACETAM SOL (5 ML) 100 MG/ML UDC GT SCH (08:31)
[2016-09-23] MEDS: FOLIC ACID 1 MG TABLET GT SCH (08:32)
[2016-09-23] MEDS: CHOLECALCIFEROL 1,000 UNIT TABLET (VIT D3) GT SCH (08:32)
[2016-09-23] MEDS: DOXYCYCLINE HYCLATE (100 MG) 100 MG TABLET GT SCH (08:32)
[2016-09-23] MEDS: CARBAMAZEPINE 200 MG TABLET GT SCH ×2 (08:32→12:12)
[2016-09-23] MEDS: BACLOFEN (10 MG) 10 MG TABLET GT SCH ×2 (08:32→12:12)
[2016-09-23] MEDS: Z GUARD REMEDY 2 OZ OINT TP SCH (09:00)
[2016-09-23 09:46] VITALS: BP 120/44
[2016-09-23 12:00] VITALS: BP 109/53
== END 2016-09-23 15:00 | DRG 871 ==
LOC: ER 18:53 → TELE-TD 20:33 → TELE1 09-22 17:14 → MEDSG1 09-23 12:00
PROVIDERS: ADMIT Internal Medicine; ATTEND Internal Medicine
DX: A41.51 Sepsis due to Escherichia coli [E. coli] (principal); G93.40 Encephalopathy, unspecified; R65.21 Severe sepsis with septic shock; J96.10 Chronic respiratory failure, unspecified whether with hypoxia or hypercapnia; N39.0 Urinary tract infection, site not specified; J96.11 Chronic respiratory failure with hypoxia; E87.2 Acidosis; Z93.0 Tracheostomy status; G40.409 Other generalized epilepsy and epileptic syndromes, not intractable, without status epilepticus; Z93.1 Gastrostomy status; K59.00 Constipation, unspecified; R13.10 Dysphagia, unspecified; E55.9 Vitamin D deficiency, unspecified
CPT/HCPCS: 31720; 36415; 71010-TC; 74000-TC; 80048-TC; 80053-TC; 80076-TC; 80156-TC; 82962-TC; 83605-TC; 83735-TC; 84100-TC; 85025-TC; 85730-TC; 87040-TC; 87081-TC; 87086-TC; 87186-TC; 92611-TC; 94640-TC; 94760-TC; 94799-TC; A4606; A4623; A6402; A7526; J0696; J1644; J1953; J3475; J3490; J7030; J7050; J7060; Z7610

== ENCOUNTER 2016-09-23 15:49 | Inpatient (IN) | payer MEDICARE, OTHER ==
[~2016-09-23] VITALS: Ht 167.6 cm; Wt 54.9 kg
--- NOTE | 2016-09-23 15:10 | NUR ---
Readmitted patient from [facility] accompanied by RT & RN, patient is awake alert & oriented. Respirations are even and unlabored. Skin is warm and dry to touch. Pt is on cool aerosol tolerated well, Tracheostomy patent & intact. HOB elevated for aspiration precautions. All admission orders verified with Dr. Aguilar and Dr. Lubin to continue same orders noted and carried out. Responsible Libertarian Zeb Tellez notified of patient's readmission & he acknowledged notification.
[~2016-09-23 15:49] MED LIST changes: +ALBU2.5V38 NEB; +CHLO15MO2 MM; -CHLO473M3 MM; +LACT-15 PO; +SENN-167 GT; -SENN8.6T6 GT
[2016-09-23] MEDS ORDERED: ACETAMINOPHEN 650 MG/20.3 ML UDC GT PRN (18:32)
[2016-09-23] MEDS ORDERED: CEFTRIAXONE 1 G in IV D5W 50 ML IV SCH ×2 (18:32→20:00)
[2016-09-23] MEDS ORDERED: DOXYCYCLINE HYCLATE (100 MG) 100 MG TABLET GT SCH (18:32)
[2016-09-23] MEDS: ALBUTEROL FS 2.5 MG/3 ML VIAL.NEB NEB SCH (19:30)
[2016-09-23] MEDS ORDERED: ALBUTEROL FS 2.5 MG/3 ML VIAL.NEB NEB SCH ×2 (19:30)
--- NOTE | 2016-09-23 19:37 | NUR ---
Pt. readmitted with skin discoloration noted on left brachial area, no open skin, size 1.5 x 2.5cm. Old stoma, closed but with red color skin mucosa, dry, no s/s of infection, no swelling noted. Left hand with fading skin discoloration. BUE contrated, left lower extremity very contracted, right lower extremity hyperextended and stiff. Right hand with double lumen IV access. Not on any IVF when received. Sacral area with excoriation with skin cut between the creases of the buttocks. F/C [id number] intact with clear yellow urine in the tubing and drainage bag. Pt had this excoriation before the transfer to ED. Pt ate 100% of pureed meal for dinner fed by the assigned PUBLISHING SPECIALIST. Photos taken for above mentioned skin condition. No acute distress noted.
[2016-09-23] MEDS ORDERED: CEFTRIAXONE 1 G in IV D5W 50 ML IV ONE (20:00)
[2016-09-23] MEDS: CHLORHEXIDINE GLUCONATE 15 ML UDC MM SCH (21:00)
[2016-09-23] MEDS: Z GUARD REMEDY 4 OZ OINT TP SCH (21:00)
[2016-09-23] MEDS ORDERED: DOXYCYCLINE HYCLATE (100 MG) 100 MG TABLET GT ONE (21:00)
--- NOTE | 2016-09-23 21:00 | NUR ---
RN NOTES Received new order from Dr. Aguilar for gluteal crease/sacral area tx, noted and carried out. Pt in stable condition. No respiratory distress or Sob noted. Appears to be comfortable in bed. Will continue to monitor.
[2016-09-23] MEDS: POLYETHYLENE GLYCOL 3350 17 GM POWD.PACK GT SCH (22:48)
[2016-09-24] MEDS: ALBUTEROL FS 2.5 MG/3 ML VIAL.NEB NEB SCH ×4 (01:30→20:42)
[2016-09-24] MEDS ORDERED: CHLORHEXIDINE GLUCONATE 15 ML UDC MM SCH ×2 (06:00→09:00)
[2016-09-24] MEDS: CARBAMAZEPINE 200 MG TABLET GT SCH ×3 (08:00→17:45)
[2016-09-24 08:07] VITALS: BP 114/69
[2016-09-24] MEDS ORDERED: LORAZEPAM INJ 2 MG/ML VIAL IM PRN (09:00)
[2016-09-24] MEDS ORDERED: POLYETHYLENE GLYCOL 3350 17 GM POWD.PACK GT SCH (09:00)
[2016-09-24] MEDS ORDERED: CHOLECALCIFEROL 1,000 UNIT TABLET (VIT D3) GT SCH (09:00)
[2016-09-24] MEDS ORDERED: BACLOFEN (10 MG) 10 MG TABLET GT SCH (09:00)
[2016-09-24] MEDS ORDERED: CARBAMAZEPINE 200 MG TABLET GT SCH ×2 (09:00)
[2016-09-24] MEDS ORDERED: ALBUTEROL FS 2.5 MG/3 ML VIAL.NEB NEB SCH (09:00)
[2016-09-24] MEDS: FOLIC ACID 1 MG TABLET GT SCH ×2 (09:02→17:44)
[2016-09-24] MEDS: LEVETIRACETAM SOL (5 ML) 100 MG/ML UDC GT SCH ×2 (09:02→20:43)
[2016-09-24] MEDS: SENNOSIDES 8.6 MG TABLET GT SCH ×2 (09:03→20:43)
[2016-09-24] MEDS: BACLOFEN (10 MG) 10 MG TABLET GT SCH ×3 (09:03→17:44)
[2016-09-24] MEDS: DOXYCYCLINE HYCLATE (100 MG) 100 MG TABLET GT SCH ×2 (09:04→20:43)
[2016-09-24] MEDS: Z GUARD REMEDY 4 OZ OINT TP SCH ×2 (09:04→21:37)
[2016-09-24] MEDS: SERTRALINE HCL 25 MG TABLET GT SCH (09:04)
[2016-09-24] MEDS: CHLORHEXIDINE GLUCONATE 15 ML UDC MM SCH ×2 (09:04→20:43)
[2016-09-24] MEDS: CHOLECALCIFEROL (VITAMIN D 3) 400 UNIT TABLET GT SCH (09:04)
[2016-09-24] MEDS ORDERED: BOOST PLUS FOOD-CHOCLATE 237 ML BOX PO PRN (12:00)
[2016-09-24] MEDS: POLYVINYL ALCOHOL 15 ML BOTTLE EACHEYE SCH ×3 (12:39→23:48)
[2016-09-24 19:46] VITALS: BP 61/98
[2016-09-24] MEDS: CEFTRIAXONE 1 G in IV D5W 50 ML IV SCH (19:55)
[2016-09-24] MEDS ORDERED: CEFTRIAXONE 1 G in IV D5W 50 ML IV SCH (20:00)
[2016-09-24] MEDS ORDERED: LEVETIRACETAM SOL (5 ML) 100 MG/ML UDC GT ONE (21:00)
[2016-09-24] MEDS: POLYETHYLENE GLYCOL 3350 17 GM POWD.PACK GT SCH (21:37)
[2016-09-25] MEDS: ALBUTEROL FS 2.5 MG/3 ML VIAL.NEB NEB SCH ×4 (01:47→19:57)
[2016-09-25] MEDS: POLYVINYL ALCOHOL 15 ML BOTTLE EACHEYE SCH ×4 (06:29→23:56)
[2016-09-25 07:35] VITALS: BP 119/72
[2016-09-25] MEDS: CHOLECALCIFEROL (VITAMIN D 3) 400 UNIT TABLET GT SCH (08:46)
[2016-09-25] MEDS: FOLIC ACID 1 MG TABLET GT SCH ×2 (08:46→16:35)
[2016-09-25] MEDS: CHLORHEXIDINE GLUCONATE 15 ML UDC MM SCH ×2 (08:46→18:01)
[2016-09-25] MEDS: Z GUARD REMEDY 4 OZ OINT TP SCH ×2 (08:46→21:49)
[2016-09-25] MEDS: LEVETIRACETAM SOL (5 ML) 100 MG/ML UDC GT SCH ×2 (08:46→21:49)
[2016-09-25] MEDS: BACLOFEN (10 MG) 10 MG TABLET GT SCH ×3 (08:46→16:35)
[2016-09-25] MEDS: SERTRALINE HCL 25 MG TABLET GT SCH (08:46)
[2016-09-25] MEDS: SENNOSIDES 8.6 MG TABLET GT SCH ×2 (08:46→21:49)
[2016-09-25] MEDS: CARBAMAZEPINE 200 MG TABLET GT SCH ×3 (08:46→16:35)
[2016-09-25] MEDS: DOXYCYCLINE HYCLATE (100 MG) 100 MG TABLET GT SCH ×2 (08:46→21:49)
--- NOTE | 2016-09-25 11:40 | NUR ---
Received order from Dr. Aguilar to give Vibramycin and Ceftriaxone for 3 more days. Asked him if he wanted to resume Heparin. He said to DC Heparin.
[2016-09-25] MEDS ORDERED: HYDROGEN PEROXIDE 480 ML BOTTLE TP PRN (12:00)
[2016-09-25] MEDS ORDERED: CARBAMAZEPINE 200 MG TABLET GT SCH (16:51)
[2016-09-25] MEDS: CEFTRIAXONE 1 G in IV D5W 50 ML IV SCH (20:01)
[2016-09-25 20:11] VITALS: BP 108/69
[2016-09-25] MEDS: HYDROGEN PEROXIDE 480 ML BOTTLE TP SCH (21:49)
[2016-09-25] MEDS: POLYETHYLENE GLYCOL 3350 17 GM POWD.PACK GT SCH (21:49)
[2016-09-26] MEDS: ALBUTEROL FS 2.5 MG/3 ML VIAL.NEB NEB SCH ×4 (01:02→19:17)
[2016-09-26] MEDS: CHLORHEXIDINE GLUCONATE 15 ML UDC MM SCH ×2 (06:23→17:01)
[2016-09-26] MEDS: POLYVINYL ALCOHOL 15 ML BOTTLE EACHEYE SCH ×3 (06:23→17:01)
[2016-09-26 07:32] VITALS: BP 110/72
[2016-09-26] MEDS: SERTRALINE HCL 25 MG TABLET GT SCH (09:01)
[2016-09-26] MEDS: DOXYCYCLINE HYCLATE (100 MG) 100 MG TABLET GT SCH ×2 (09:01→21:33)
[2016-09-26] MEDS: HYDROGEN PEROXIDE 480 ML BOTTLE TP SCH ×2 (09:01→21:33)
[2016-09-26] MEDS: SENNOSIDES 8.6 MG TABLET GT SCH ×2 (09:01→21:33)
[2016-09-26] MEDS: Z GUARD REMEDY 4 OZ OINT TP SCH ×2 (09:01→21:33)
[2016-09-26] MEDS: BACLOFEN (10 MG) 10 MG TABLET GT SCH ×3 (09:01→17:01)
[2016-09-26] MEDS: CHOLECALCIFEROL (VITAMIN D 3) 400 UNIT TABLET GT SCH (09:01)
[2016-09-26] MEDS: CARBAMAZEPINE 200 MG TABLET GT SCH ×3 (09:01→17:01)
[2016-09-26] MEDS: FOLIC ACID 1 MG TABLET GT SCH ×2 (09:01→17:01)
[2016-09-26] MEDS: LEVETIRACETAM SOL (5 ML) 100 MG/ML UDC GT SCH ×2 (09:01→21:33)
--- NOTE | 2016-09-26 10:11 | NUR ---
WOUND CARE CONSULT PATIENT SEEN AND SACRAL/GLUTEAL CREASE EVALUATED. THERE IS NOTED AREAS OF EXCORIATIONS THAT ARE MUCH IMPROVED AT THIS TIME WITH HYPOPIGMENTED AREAS. WOULD RECOMMEND CONTINUE WITH CURRENT TREATMENT PLAN OF Z GUARD AT THIS TIME. WILL SEE PRN. DISCUSSED WITH TRANSPORTATION EQUIPMENT PAINTER AND CLERK CHECKER AT THE BEDSIDE.
--- NOTE | 2016-09-26 14:00 | NUR ---
Seen and examined by Dr. Aguilar no new order given.
[2016-09-26] MEDS: MAGNESIUM HYDROXIDE 30 ML UDC GT PRN (18:52)
[2016-09-26 20:10] VITALS: BP 103/61
[2016-09-26] MEDS: CEFTRIAXONE 1 G in IV D5W 50 ML IV SCH (20:10)
[2016-09-26] MEDS: POLYETHYLENE GLYCOL 3350 17 GM POWD.PACK GT SCH (21:33)
[2016-09-27] MEDS: ALBUTEROL FS 2.5 MG/3 ML VIAL.NEB NEB SCH ×4 (01:00→19:00)
[2016-09-27] MEDS: CHLORHEXIDINE GLUCONATE 15 ML UDC MM SCH ×2 (05:03→17:02)
[2016-09-27] MEDS: POLYVINYL ALCOHOL 15 ML BOTTLE EACHEYE SCH ×5 (05:03→23:25)
[2016-09-27] MEDS: MAGNESIUM HYDROXIDE 30 ML UDC GT PRN (07:01)
[2016-09-27 07:53] VITALS: BP 114/81
[2016-09-27] MEDS: CHOLECALCIFEROL (VITAMIN D 3) 400 UNIT TABLET GT SCH (08:41)
[2016-09-27] MEDS: SENNOSIDES 8.6 MG TABLET GT SCH ×2 (08:41→21:21)
[2016-09-27] MEDS: SERTRALINE HCL 25 MG TABLET GT SCH (08:41)
[2016-09-27] MEDS: Z GUARD REMEDY 4 OZ OINT TP SCH ×2 (08:41→21:22)
[2016-09-27] MEDS: LEVETIRACETAM SOL (5 ML) 100 MG/ML UDC GT SCH ×2 (08:41→21:21)
[2016-09-27] MEDS: HYDROGEN PEROXIDE 480 ML BOTTLE TP SCH ×2 (08:41→21:22)
[2016-09-27] MEDS: BACLOFEN (10 MG) 10 MG TABLET GT SCH ×3 (08:41→17:02)
[2016-09-27] MEDS: CARBAMAZEPINE 200 MG TABLET GT SCH ×3 (08:41→17:02)
[2016-09-27] MEDS: FOLIC ACID 1 MG TABLET GT SCH ×2 (08:41→17:02)
[2016-09-27] MEDS: DOXYCYCLINE HYCLATE (100 MG) 100 MG TABLET GT SCH ×2 (08:41→21:22)
--- NOTE | 2016-09-27 12:45 | NUR ---
RT Patient on Cool aerosol oxygen tx 28%. Breath sounds equal. Trach midline. Tx given and tolerated very well. No sadverse reactions. Ambu bag and spare trach at the bed side.
[2016-09-27 19:54] VITALS: BP 100/62
[2016-09-27 19:58] VITALS: BP 107/60
[2016-09-27] MEDS: CEFTRIAXONE 1 G in IV D5W 50 ML IV SCH (20:00)
[2016-09-27] MEDS: POLYETHYLENE GLYCOL 3350 17 GM POWD.PACK GT SCH (21:22)
[2016-09-28] MEDS: ALBUTEROL FS 2.5 MG/3 ML VIAL.NEB NEB SCH ×4 (01:24→20:37)
[2016-09-28] MEDS: POLYVINYL ALCOHOL 15 ML BOTTLE EACHEYE SCH ×3 (06:08→17:34)
[2016-09-28] MEDS: CHLORHEXIDINE GLUCONATE 15 ML UDC MM SCH ×2 (06:08→17:34)
[2016-09-28 07:56] VITALS: BP 108/71
[2016-09-28] MEDS: FOLIC ACID 1 MG TABLET GT SCH ×2 (08:19→16:10)
[2016-09-28] MEDS: SENNOSIDES 8.6 MG TABLET GT SCH ×2 (08:19→21:11)
[2016-09-28] MEDS: BACLOFEN (10 MG) 10 MG TABLET GT SCH ×3 (08:19→16:10)
[2016-09-28] MEDS: CHOLECALCIFEROL (VITAMIN D 3) 400 UNIT TABLET GT SCH (08:19)
[2016-09-28] MEDS: SERTRALINE HCL 25 MG TABLET GT SCH (08:19)
[2016-09-28] MEDS: LEVETIRACETAM SOL (5 ML) 100 MG/ML UDC GT SCH ×2 (08:19→21:11)
[2016-09-28] MEDS: CARBAMAZEPINE 200 MG TABLET GT SCH ×3 (08:19→16:10)
[2016-09-28] MEDS: HYDROGEN PEROXIDE 480 ML BOTTLE TP SCH ×2 (09:42→21:11)
[2016-09-28] MEDS: Z GUARD REMEDY 4 OZ OINT TP SCH ×2 (09:42→21:11)
[2016-09-28 19:41] VITALS: BP 114/73
[2016-09-28] MEDS: POLYETHYLENE GLYCOL 3350 17 GM POWD.PACK GT SCH (21:11)
[2016-09-29] MEDS: ALBUTEROL FS 2.5 MG/3 ML VIAL.NEB NEB SCH ×4 (01:35→20:11)
[2016-09-29] MEDS: CHLORHEXIDINE GLUCONATE 15 ML UDC MM SCH ×2 (06:11→18:00)
[2016-09-29] MEDS: POLYVINYL ALCOHOL 15 ML BOTTLE EACHEYE SCH ×4 (06:11→18:00)
[2016-09-29 08:01] VITALS: BP 111/56
[2016-09-29] MEDS: BACLOFEN (10 MG) 10 MG TABLET GT SCH ×3 (08:13→16:42)
[2016-09-29] MEDS: CARBAMAZEPINE 200 MG TABLET GT SCH ×3 (08:13→16:42)
[2016-09-29] MEDS: LEVETIRACETAM SOL (5 ML) 100 MG/ML UDC GT SCH ×2 (08:13→21:11)
[2016-09-29] MEDS: FOLIC ACID 1 MG TABLET GT SCH ×2 (08:13→16:42)
[2016-09-29] MEDS: SERTRALINE HCL 25 MG TABLET GT SCH (08:13)
[2016-09-29] MEDS: CHOLECALCIFEROL (VITAMIN D 3) 400 UNIT TABLET GT SCH (08:13)
[2016-09-29] MEDS: SENNOSIDES 8.6 MG TABLET GT SCH ×2 (08:13→21:11)
[2016-09-29] MEDS: Z GUARD REMEDY 4 OZ OINT TP SCH ×2 (10:00→21:11)
[2016-09-29] MEDS: HYDROGEN PEROXIDE 480 ML BOTTLE TP SCH ×2 (10:00→21:11)
[2016-09-29 19:41] VITALS: BP 104/54
[2016-09-29] MEDS: CLOTRIMAZOLE 1% 15 GM TUBE TP SCH (21:11)
[2016-09-29] MEDS: POLYETHYLENE GLYCOL 3350 17 GM POWD.PACK GT SCH (21:11)
[2016-09-30] MEDS: POLYVINYL ALCOHOL 15 ML BOTTLE EACHEYE SCH ×5 (00:02→23:59)
[2016-09-30] MEDS: ALBUTEROL FS 2.5 MG/3 ML VIAL.NEB NEB SCH ×4 (00:50→19:53)
[2016-09-30] MEDS: CHLORHEXIDINE GLUCONATE 15 ML UDC MM SCH ×2 (05:32→17:08)
[2016-09-30 07:56] VITALS: BP 113/71
[2016-09-30] MEDS: FOLIC ACID 1 MG TABLET GT SCH ×2 (08:15→17:08)
[2016-09-30] MEDS: CARBAMAZEPINE 200 MG TABLET GT SCH ×3 (08:15→17:08)
[2016-09-30] MEDS: CHOLECALCIFEROL (VITAMIN D 3) 400 UNIT TABLET GT SCH (08:15)
[2016-09-30] MEDS: LEVETIRACETAM SOL (5 ML) 100 MG/ML UDC GT SCH ×2 (08:15→21:23)
[2016-09-30] MEDS: SERTRALINE HCL 25 MG TABLET GT SCH (08:15)
[2016-09-30] MEDS: BACLOFEN (10 MG) 10 MG TABLET GT SCH ×3 (08:15→17:08)
[2016-09-30] MEDS: SENNOSIDES 8.6 MG TABLET GT SCH ×2 (08:15→21:23)
[2016-09-30] MEDS: Z GUARD REMEDY 4 OZ OINT TP SCH ×2 (10:15→21:24)
[2016-09-30] MEDS: CLOTRIMAZOLE 1% 15 GM TUBE TP SCH ×2 (10:15→21:24)
[2016-09-30] MEDS: HYDROGEN PEROXIDE 480 ML BOTTLE TP SCH ×2 (10:15→21:23)
[2016-09-30 19:33] VITALS: BP 109/61
[2016-09-30] MEDS: POLYETHYLENE GLYCOL 3350 17 GM POWD.PACK GT SCH (21:24)
[2016-10-01] MEDS: ALBUTEROL FS 2.5 MG/3 ML VIAL.NEB NEB SCH ×4 (01:27→19:37)
[2016-10-01] MEDS: CHLORHEXIDINE GLUCONATE 15 ML UDC MM SCH ×2 (05:38→18:55)
[2016-10-01] MEDS: POLYVINYL ALCOHOL 15 ML BOTTLE EACHEYE SCH ×3 (05:38→18:55)
[2016-10-01] MEDS: SERTRALINE HCL 25 MG TABLET GT SCH (08:13)
[2016-10-01] MEDS: HYDROGEN PEROXIDE 480 ML BOTTLE TP SCH ×2 (08:13→21:21)
[2016-10-01] MEDS: Z GUARD REMEDY 4 OZ OINT TP SCH ×2 (08:13→21:23)
[2016-10-01] MEDS: SENNOSIDES 8.6 MG TABLET GT SCH ×2 (08:13→21:21)
[2016-10-01] MEDS: CLOTRIMAZOLE 1% 15 GM TUBE TP SCH ×2 (08:13→21:23)
[2016-10-01] MEDS: LEVETIRACETAM SOL (5 ML) 100 MG/ML UDC GT SCH ×2 (08:13→21:21)
[2016-10-01] MEDS: CHOLECALCIFEROL (VITAMIN D 3) 400 UNIT TABLET GT SCH (08:13)
[2016-10-01] MEDS: CARBAMAZEPINE 200 MG TABLET GT SCH ×3 (08:13→16:46)
[2016-10-01] MEDS: FOLIC ACID 1 MG TABLET GT SCH ×2 (08:13→16:46)
[2016-10-01 08:14] VITALS: BP 118/70
[2016-10-01] MEDS: BACLOFEN (10 MG) 10 MG TABLET GT SCH ×3 (09:00→16:46)
[2016-10-01 20:24] VITALS: BP 100/61
[2016-10-01] MEDS: POLYETHYLENE GLYCOL 3350 17 GM POWD.PACK GT SCH (21:23)
[2016-10-02] MEDS: POLYVINYL ALCOHOL 15 ML BOTTLE EACHEYE SCH ×4 (00:37→17:42)
[2016-10-02] MEDS: ALBUTEROL FS 2.5 MG/3 ML VIAL.NEB NEB SCH ×4 (01:32→19:56)
[2016-10-02] MEDS: CHLORHEXIDINE GLUCONATE 15 ML UDC MM SCH ×2 (05:57→17:42)
[2016-10-02 07:48] VITALS: BP 106/70
[2016-10-02] MEDS: FOLIC ACID 1 MG TABLET GT SCH ×2 (08:45→16:18)
[2016-10-02] MEDS: SENNOSIDES 8.6 MG TABLET GT SCH ×2 (08:45→21:10)
[2016-10-02] MEDS: LEVETIRACETAM SOL (5 ML) 100 MG/ML UDC GT SCH ×2 (08:45→21:10)
[2016-10-02] MEDS: CARBAMAZEPINE 200 MG TABLET GT SCH ×3 (08:45→16:18)
[2016-10-02] MEDS: BACLOFEN (10 MG) 10 MG TABLET GT SCH ×3 (08:45→16:18)
[2016-10-02] MEDS: CHOLECALCIFEROL (VITAMIN D 3) 400 UNIT TABLET GT SCH (08:45)
[2016-10-02] MEDS: CLOTRIMAZOLE 1% 15 GM TUBE TP SCH ×2 (08:46→21:10)
[2016-10-02] MEDS: Z GUARD REMEDY 4 OZ OINT TP SCH ×2 (08:46→21:10)
[2016-10-02] MEDS: SERTRALINE HCL 25 MG TABLET GT SCH (08:46)
[2016-10-02] MEDS: HYDROGEN PEROXIDE 480 ML BOTTLE TP SCH ×2 (08:46→21:10)
[2016-10-02 20:00] VITALS: BP 113/58
[2016-10-02] MEDS: POLYETHYLENE GLYCOL 3350 17 GM POWD.PACK GT SCH (21:10)
[2016-10-03] MEDS: POLYVINYL ALCOHOL 15 ML BOTTLE EACHEYE SCH ×4 (00:12→17:08)
[2016-10-03] MEDS: ALBUTEROL FS 2.5 MG/3 ML VIAL.NEB NEB SCH ×4 (01:37→19:20)
[2016-10-03] MEDS: CHLORHEXIDINE GLUCONATE 15 ML UDC MM SCH ×2 (05:12→17:08)
[2016-10-03 07:30] VITALS: BP 112/76
[2016-10-03] MEDS: FOLIC ACID 1 MG TABLET GT SCH ×2 (09:00→17:08)
[2016-10-03] MEDS: CHOLECALCIFEROL (VITAMIN D 3) 400 UNIT TABLET GT SCH (09:00)
[2016-10-03] MEDS: HYDROGEN PEROXIDE 480 ML BOTTLE TP SCH ×2 (09:00→21:22)
[2016-10-03] MEDS: BACLOFEN (10 MG) 10 MG TABLET GT SCH ×3 (09:00→17:08)
[2016-10-03] MEDS: SENNOSIDES 8.6 MG TABLET GT SCH ×2 (09:00→21:22)
[2016-10-03] MEDS: CARBAMAZEPINE 200 MG TABLET GT SCH ×3 (09:00→17:08)
[2016-10-03] MEDS: SERTRALINE HCL 25 MG TABLET GT SCH (09:00)
[2016-10-03] MEDS: CLOTRIMAZOLE 1% 15 GM TUBE TP SCH ×2 (09:00→21:22)
[2016-10-03] MEDS: Z GUARD REMEDY 4 OZ OINT TP SCH ×2 (09:00→21:23)
[2016-10-03] MEDS: LEVETIRACETAM SOL (5 ML) 100 MG/ML UDC GT SCH ×2 (09:00→21:22)
[2016-10-03 20:00] VITALS: BP 107/58
[2016-10-03] MEDS: POLYETHYLENE GLYCOL 3350 17 GM POWD.PACK GT SCH (21:23)
[2016-10-04] MEDS: POLYVINYL ALCOHOL 15 ML BOTTLE EACHEYE SCH ×4 (00:01→17:10)
[2016-10-04] MEDS: ALBUTEROL FS 2.5 MG/3 ML VIAL.NEB NEB SCH ×5 (01:09→20:01)
[2016-10-04] MEDS: CHLORHEXIDINE GLUCONATE 15 ML UDC MM SCH ×2 (06:26→17:10)
[2016-10-04 07:38] VITALS: BP 110/69
[2016-10-04] MEDS: BACLOFEN (10 MG) 10 MG TABLET GT SCH ×3 (08:18→17:10)
[2016-10-04] MEDS: HYDROGEN PEROXIDE 480 ML BOTTLE TP SCH ×2 (08:18→21:30)
[2016-10-04] MEDS: SENNOSIDES 8.6 MG TABLET GT SCH ×2 (08:18→20:43)
[2016-10-04] MEDS: FOLIC ACID 1 MG TABLET GT SCH ×2 (08:18→17:10)
[2016-10-04] MEDS: LEVETIRACETAM SOL (5 ML) 100 MG/ML UDC GT SCH ×2 (08:18→20:43)
[2016-10-04] MEDS: SERTRALINE HCL 25 MG TABLET GT SCH (08:18)
[2016-10-04] MEDS: CARBAMAZEPINE 200 MG TABLET GT SCH ×3 (08:18→17:10)
[2016-10-04] MEDS: CHOLECALCIFEROL (VITAMIN D 3) 400 UNIT TABLET GT SCH (08:18)
[2016-10-04] MEDS: Z GUARD REMEDY 4 OZ OINT TP SCH ×2 (08:19→21:31)
[2016-10-04] MEDS: CLOTRIMAZOLE 1% 15 GM TUBE TP SCH ×2 (08:19→21:30)
[2016-10-04] MEDS: POLYETHYLENE GLYCOL 3350 17 GM POWD.PACK GT SCH (21:31)
[2016-10-04 21:43] VITALS: BP 106/54
[2016-10-05] MEDS: POLYVINYL ALCOHOL 15 ML BOTTLE EACHEYE SCH ×4 (00:25→17:05)
[2016-10-05] MEDS: ALBUTEROL FS 2.5 MG/3 ML VIAL.NEB NEB SCH ×4 (01:29→19:30)
[2016-10-05] MEDS: CHLORHEXIDINE GLUCONATE 15 ML UDC MM SCH ×2 (06:04→17:05)
[2016-10-05 07:36] VITALS: BP 119/66
[2016-10-05] MEDS: BACLOFEN (10 MG) 10 MG TABLET GT SCH ×3 (08:45→17:05)
[2016-10-05] MEDS: HYDROGEN PEROXIDE 480 ML BOTTLE TP SCH ×2 (08:45→20:29)
[2016-10-05] MEDS: CHOLECALCIFEROL (VITAMIN D 3) 400 UNIT TABLET GT SCH (08:45)
[2016-10-05] MEDS: SERTRALINE HCL 25 MG TABLET GT SCH (08:45)
[2016-10-05] MEDS: SENNOSIDES 8.6 MG TABLET GT SCH ×2 (08:45→20:29)
[2016-10-05] MEDS: CARBAMAZEPINE 200 MG TABLET GT SCH ×3 (08:45→17:05)
[2016-10-05] MEDS: LEVETIRACETAM SOL (5 ML) 100 MG/ML UDC GT SCH ×2 (08:45→20:28)
[2016-10-05] MEDS: FOLIC ACID 1 MG TABLET GT SCH ×2 (08:45→17:05)
[2016-10-05] MEDS: Z GUARD REMEDY 4 OZ OINT TP SCH ×2 (08:46→20:30)
[2016-10-05] MEDS: CLOTRIMAZOLE 1% 15 GM TUBE TP SCH ×2 (08:46→20:30)
[2016-10-05 20:29] VITALS: BP 124/72
[2016-10-05] MEDS: POLYETHYLENE GLYCOL 3350 17 GM POWD.PACK GT SCH (21:57)
[2016-10-06] MEDS: POLYVINYL ALCOHOL 15 ML BOTTLE EACHEYE SCH ×4 (00:27→18:05)
[2016-10-06] MEDS: ALBUTEROL FS 2.5 MG/3 ML VIAL.NEB NEB SCH ×4 (01:43→19:30)
[2016-10-06] MEDS: CHLORHEXIDINE GLUCONATE 15 ML UDC MM SCH ×2 (05:21→18:05)
[2016-10-06 07:28] VITALS: BP 112/70
[2016-10-06] MEDS: BACLOFEN (10 MG) 10 MG TABLET GT SCH ×3 (08:37→16:39)
[2016-10-06] MEDS: LEVETIRACETAM SOL (5 ML) 100 MG/ML UDC GT SCH ×2 (08:37→20:16)
[2016-10-06] MEDS: CARBAMAZEPINE 200 MG TABLET GT SCH ×3 (08:37→16:39)
[2016-10-06] MEDS: SENNOSIDES 8.6 MG TABLET GT SCH ×2 (08:37→20:17)
[2016-10-06] MEDS: FOLIC ACID 1 MG TABLET GT SCH ×2 (08:37→16:39)
[2016-10-06] MEDS: CHOLECALCIFEROL (VITAMIN D 3) 400 UNIT TABLET GT SCH (08:37)
[2016-10-06] MEDS: SERTRALINE HCL 25 MG TABLET GT SCH (08:37)
[2016-10-06] MEDS: CLOTRIMAZOLE 1% 15 GM TUBE TP SCH ×2 (10:07→20:17)
[2016-10-06] MEDS: Z GUARD REMEDY 4 OZ OINT TP SCH ×2 (10:07→20:17)
[2016-10-06] MEDS: HYDROGEN PEROXIDE 480 ML BOTTLE TP SCH ×2 (10:07→20:17)
[2016-10-06 20:00] VITALS: BP 105/57
[2016-10-06] MEDS: POLYETHYLENE GLYCOL 3350 17 GM POWD.PACK GT SCH (22:18)
[2016-10-07] MEDS: POLYVINYL ALCOHOL 15 ML BOTTLE EACHEYE SCH ×4 (00:12→17:34)
[2016-10-07] MEDS: ALBUTEROL FS 2.5 MG/3 ML VIAL.NEB NEB SCH ×4 (01:30→19:30)
[2016-10-07] MEDS: CHLORHEXIDINE GLUCONATE 15 ML UDC MM SCH ×2 (05:31→17:34)
[2016-10-07 07:47] VITALS: BP 100/50
[2016-10-07] MEDS: LEVETIRACETAM SOL (5 ML) 100 MG/ML UDC GT SCH ×2 (08:29→20:23)
[2016-10-07] MEDS: Z GUARD REMEDY 4 OZ OINT TP SCH ×2 (08:29→20:25)
[2016-10-07] MEDS: HYDROGEN PEROXIDE 480 ML BOTTLE TP SCH ×2 (08:29→20:25)
[2016-10-07] MEDS: SENNOSIDES 8.6 MG TABLET GT SCH ×2 (08:29→20:24)
[2016-10-07] MEDS: CLOTRIMAZOLE 1% 15 GM TUBE TP SCH ×2 (08:29→20:25)
[2016-10-07] MEDS: CARBAMAZEPINE 200 MG TABLET GT SCH ×3 (08:29→16:41)
[2016-10-07] MEDS: CHOLECALCIFEROL (VITAMIN D 3) 400 UNIT TABLET GT SCH (08:29)
[2016-10-07] MEDS: FOLIC ACID 1 MG TABLET GT SCH ×2 (08:29→16:41)
[2016-10-07] MEDS: BACLOFEN (10 MG) 10 MG TABLET GT SCH ×3 (08:29→16:41)
[2016-10-07] MEDS: SERTRALINE HCL 25 MG TABLET GT SCH (08:29)
[2016-10-07 19:47] VITALS: BP 106/50
[2016-10-07] MEDS: POLYETHYLENE GLYCOL 3350 17 GM POWD.PACK GT SCH (22:08)
[2016-10-08] MEDS: POLYVINYL ALCOHOL 15 ML BOTTLE EACHEYE SCH ×4 (00:06→17:54)
[2016-10-08] MEDS: ALBUTEROL FS 2.5 MG/3 ML VIAL.NEB NEB SCH ×4 (02:25→19:30)
[2016-10-08] MEDS: CHLORHEXIDINE GLUCONATE 15 ML UDC MM SCH ×2 (06:15→17:15)
[2016-10-08 07:53] VITALS: BP 108/54
[2016-10-08] MEDS: CARBAMAZEPINE 200 MG TABLET GT SCH ×3 (08:47→17:15)
[2016-10-08] MEDS: FOLIC ACID 1 MG TABLET GT SCH ×2 (08:47→17:15)
[2016-10-08] MEDS: CHOLECALCIFEROL (VITAMIN D 3) 400 UNIT TABLET GT SCH (08:47)
[2016-10-08] MEDS: LEVETIRACETAM SOL (5 ML) 100 MG/ML UDC GT SCH ×2 (08:47→21:10)
[2016-10-08] MEDS: SENNOSIDES 8.6 MG TABLET GT SCH ×2 (08:47→21:10)
[2016-10-08] MEDS: BACLOFEN (10 MG) 10 MG TABLET GT SCH ×3 (08:47→17:15)
[2016-10-08] MEDS: HYDROGEN PEROXIDE 480 ML BOTTLE TP SCH ×2 (08:48→21:10)
[2016-10-08] MEDS: Z GUARD REMEDY 4 OZ OINT TP SCH ×2 (08:48→21:10)
[2016-10-08] MEDS: SERTRALINE HCL 25 MG TABLET GT SCH (08:48)
[2016-10-08] MEDS: CLOTRIMAZOLE 1% 15 GM TUBE TP SCH ×2 (08:48→21:10)
[2016-10-08 19:40] VITALS: BP 112/67
[2016-10-08] MEDS: POLYETHYLENE GLYCOL 3350 17 GM POWD.PACK GT SCH (21:10)
[2016-10-09] MEDS: POLYVINYL ALCOHOL 15 ML BOTTLE EACHEYE SCH ×5 (00:14→23:53)
[2016-10-09] MEDS: ALBUTEROL FS 2.5 MG/3 ML VIAL.NEB NEB SCH ×4 (01:34→20:14)
[2016-10-09] MEDS: CHLORHEXIDINE GLUCONATE 15 ML UDC MM SCH ×2 (06:05→17:49)
[2016-10-09 07:36] VITALS: BP_SYST 105; BP_SYST 142; BP_DIAS 105
[2016-10-09] MEDS: FOLIC ACID 1 MG TABLET GT SCH ×2 (08:30→17:48)
[2016-10-09] MEDS: LEVETIRACETAM SOL (5 ML) 100 MG/ML UDC GT SCH ×2 (08:30→21:14)
[2016-10-09] MEDS: BACLOFEN (10 MG) 10 MG TABLET GT SCH ×3 (08:30→17:48)
[2016-10-09] MEDS: CLOTRIMAZOLE 1% 15 GM TUBE TP SCH ×2 (08:30→21:14)
[2016-10-09] MEDS: Z GUARD REMEDY 4 OZ OINT TP SCH ×2 (08:30→21:14)
[2016-10-09] MEDS: CARBAMAZEPINE 200 MG TABLET GT SCH ×3 (08:30→17:48)
[2016-10-09] MEDS: CHOLECALCIFEROL (VITAMIN D 3) 400 UNIT TABLET GT SCH (08:30)
[2016-10-09] MEDS: SERTRALINE HCL 25 MG TABLET GT SCH (08:30)
[2016-10-09] MEDS: SENNOSIDES 8.6 MG TABLET GT SCH ×2 (08:30→21:14)
[2016-10-09] MEDS: HYDROGEN PEROXIDE 480 ML BOTTLE TP SCH ×2 (09:00→21:14)
[2016-10-09 19:37] VITALS: BP 108/65
[2016-10-09] MEDS: POLYETHYLENE GLYCOL 3350 17 GM POWD.PACK GT SCH (21:14)
[2016-10-10] MEDS: ALBUTEROL FS 2.5 MG/3 ML VIAL.NEB NEB SCH ×4 (01:21→19:35)
[2016-10-10] MEDS: POLYVINYL ALCOHOL 15 ML BOTTLE EACHEYE SCH ×3 (05:21→17:16)
[2016-10-10] MEDS: CHLORHEXIDINE GLUCONATE 15 ML UDC MM SCH ×2 (05:21→17:16)
[2016-10-10 07:35] VITALS: BP 105/66
[2016-10-10] MEDS: FOLIC ACID 1 MG TABLET GT SCH ×2 (09:43→16:52)
[2016-10-10] MEDS: BACLOFEN (10 MG) 10 MG TABLET GT SCH ×3 (09:43→16:52)
[2016-10-10] MEDS: LEVETIRACETAM SOL (5 ML) 100 MG/ML UDC GT SCH ×2 (09:43→20:40)
[2016-10-10] MEDS: SENNOSIDES 8.6 MG TABLET GT SCH ×2 (09:43→20:40)
[2016-10-10] MEDS: CHOLECALCIFEROL (VITAMIN D 3) 400 UNIT TABLET GT SCH (09:44)
[2016-10-10] MEDS: SERTRALINE HCL 25 MG TABLET GT SCH (09:44)
[2016-10-10] MEDS: CARBAMAZEPINE 200 MG TABLET GT SCH ×3 (09:44→16:52)
[2016-10-10] MEDS: CLOTRIMAZOLE 1% 15 GM TUBE TP SCH ×2 (09:59→20:40)
[2016-10-10] MEDS: Z GUARD REMEDY 4 OZ OINT TP SCH ×2 (09:59→20:41)
[2016-10-10] MEDS: HYDROGEN PEROXIDE 480 ML BOTTLE TP SCH ×2 (09:59→20:40)
--- NOTE | 2016-10-10 14:01 | NUR ---
Seen and examined by Dr. Aguilar, new order given for resident OOB as tolerated. Up in wheelchair today and ate in the activity room fed by RNA, no s/s of aspiration.
--- NOTE | 2016-10-10 15:00 | NUR ---
INTERDISCIPLINARY PLAN OF CARE CONFERENCE was held today. Family invited but they did not want to attend. Resident still receiving wound treatments and continues to have ROM exercises 5x/week. Resident has an order to be up in her wheelchair and continues to be on a pureed diet. No other changes were noted.
[2016-10-10 19:21] VITALS: BP 100/57
[2016-10-10] MEDS: POLYETHYLENE GLYCOL 3350 17 GM POWD.PACK GT SCH (22:00)
[2016-10-11] MEDS: POLYVINYL ALCOHOL 15 ML BOTTLE EACHEYE SCH ×4 (00:06→17:09)
[2016-10-11] MEDS: ALBUTEROL FS 2.5 MG/3 ML VIAL.NEB NEB SCH ×4 (01:23→20:25)
[2016-10-11] MEDS: CHLORHEXIDINE GLUCONATE 15 ML UDC MM SCH ×2 (05:40→17:09)
[2016-10-11 07:43] VITALS: BP 109/68
[2016-10-11] MEDS: FOLIC ACID 1 MG TABLET GT SCH ×2 (08:21→17:09)
[2016-10-11] MEDS: LEVETIRACETAM SOL (5 ML) 100 MG/ML UDC GT SCH ×2 (08:21→20:55)
[2016-10-11] MEDS: CARBAMAZEPINE 200 MG TABLET GT SCH ×3 (08:22→17:09)
[2016-10-11] MEDS: BACLOFEN (10 MG) 10 MG TABLET GT SCH ×3 (08:22→17:09)
[2016-10-11] MEDS: CHOLECALCIFEROL (VITAMIN D 3) 400 UNIT TABLET GT SCH (08:22)
[2016-10-11] MEDS: HYDROGEN PEROXIDE 480 ML BOTTLE TP SCH ×2 (08:22→20:58)
[2016-10-11] MEDS: Z GUARD REMEDY 4 OZ OINT TP SCH ×2 (08:22→20:59)
[2016-10-11] MEDS: CLOTRIMAZOLE 1% 15 GM TUBE TP SCH ×2 (08:22→20:58)
[2016-10-11] MEDS: SERTRALINE HCL 25 MG TABLET GT SCH (08:22)
[2016-10-11] MEDS: SENNOSIDES 8.6 MG TABLET GT SCH ×2 (08:22→20:58)
[2016-10-11 19:53] VITALS: BP 109/73
[2016-10-11] MEDS: POLYETHYLENE GLYCOL 3350 17 GM POWD.PACK GT SCH (21:02)
[2016-10-12] MEDS: ALBUTEROL FS 2.5 MG/3 ML VIAL.NEB NEB SCH ×4 (01:47→19:48)
[2016-10-12] MEDS: POLYVINYL ALCOHOL 15 ML BOTTLE EACHEYE SCH ×5 (05:22→23:58)
[2016-10-12] MEDS: CHLORHEXIDINE GLUCONATE 15 ML UDC MM SCH ×2 (05:22→17:04)
[2016-10-12 07:45] VITALS: BP 114/74
[2016-10-12] MEDS: CARBAMAZEPINE 200 MG TABLET GT SCH ×3 (09:00→17:03)
[2016-10-12] MEDS: BACLOFEN (10 MG) 10 MG TABLET GT SCH ×3 (09:00→17:03)
[2016-10-12] MEDS: SERTRALINE HCL 25 MG TABLET GT SCH (09:00)
[2016-10-12] MEDS: LEVETIRACETAM SOL (5 ML) 100 MG/ML UDC GT SCH ×2 (09:00→20:26)
[2016-10-12] MEDS: SENNOSIDES 8.6 MG TABLET GT SCH ×2 (09:00→20:26)
[2016-10-12] MEDS: Z GUARD REMEDY 4 OZ OINT TP SCH ×2 (09:00→20:26)
[2016-10-12] MEDS: FOLIC ACID 1 MG TABLET GT SCH ×2 (09:00→17:03)
[2016-10-12] MEDS: HYDROGEN PEROXIDE 480 ML BOTTLE TP SCH ×2 (09:00→20:26)
[2016-10-12] MEDS: CHOLECALCIFEROL (VITAMIN D 3) 400 UNIT TABLET GT SCH (09:00)
[2016-10-12] MEDS: CLOTRIMAZOLE 1% 15 GM TUBE TP SCH ×2 (09:00→20:26)
[2016-10-12 20:36] VITALS: BP 113/68
[2016-10-12] MEDS: POLYETHYLENE GLYCOL 3350 17 GM POWD.PACK GT SCH (22:00)
[2016-10-13] MEDS: ALBUTEROL FS 2.5 MG/3 ML VIAL.NEB NEB SCH ×4 (01:12→19:30)
[2016-10-13] MEDS: CHLORHEXIDINE GLUCONATE 15 ML UDC MM SCH ×2 (05:32→17:17)
[2016-10-13] MEDS: POLYVINYL ALCOHOL 15 ML BOTTLE EACHEYE SCH ×4 (05:32→23:58)
[2016-10-13 08:15] VITALS: BP 137/73
[2016-10-13] MEDS: FOLIC ACID 1 MG TABLET GT SCH ×2 (08:38→16:41)
[2016-10-13] MEDS: SENNOSIDES 8.6 MG TABLET GT SCH ×2 (08:41→20:14)
[2016-10-13] MEDS: LEVETIRACETAM SOL (5 ML) 100 MG/ML UDC GT SCH ×2 (08:41→20:14)
[2016-10-13] MEDS: BACLOFEN (10 MG) 10 MG TABLET GT SCH ×3 (08:41→16:41)
[2016-10-13] MEDS: CARBAMAZEPINE 200 MG TABLET GT SCH ×3 (08:42→16:41)
[2016-10-13] MEDS: SERTRALINE HCL 25 MG TABLET GT SCH (08:42)
[2016-10-13] MEDS: CHOLECALCIFEROL (VITAMIN D 3) 400 UNIT TABLET GT SCH (08:42)
[2016-10-13] MEDS: CLOTRIMAZOLE 1% 15 GM TUBE TP SCH (09:00)
[2016-10-13] MEDS: Z GUARD REMEDY 4 OZ OINT TP SCH ×2 (09:00→20:15)
[2016-10-13] MEDS: HYDROGEN PEROXIDE 480 ML BOTTLE TP SCH ×2 (09:00→20:15)
--- NOTE | 2016-10-13 11:37 | NUR ---
TRACH CARE DONE WITH MOTHER AT BEDSIDE.
[2016-10-13 19:54] VITALS: BP 110/58
[2016-10-13] MEDS: POLYETHYLENE GLYCOL 3350 17 GM POWD.PACK GT SCH (21:58)
[2016-10-14] MEDS: ALBUTEROL FS 2.5 MG/3 ML VIAL.NEB NEB SCH ×4 (02:14→19:30)
[2016-10-14] MEDS: CHLORHEXIDINE GLUCONATE 15 ML UDC MM SCH ×2 (05:25→17:10)
[2016-10-14] MEDS: POLYVINYL ALCOHOL 15 ML BOTTLE EACHEYE SCH ×3 (05:25→17:10)
[2016-10-14 07:51] VITALS: BP 112/69
[2016-10-14] MEDS: FOLIC ACID 1 MG TABLET GT SCH ×2 (08:36→17:10)
[2016-10-14] MEDS: SENNOSIDES 8.6 MG TABLET GT SCH ×2 (08:36→20:26)
[2016-10-14] MEDS: LEVETIRACETAM SOL (5 ML) 100 MG/ML UDC GT SCH ×2 (08:36→20:26)
[2016-10-14] MEDS: BACLOFEN (10 MG) 10 MG TABLET GT SCH ×3 (08:36→17:10)
[2016-10-14] MEDS: CARBAMAZEPINE 200 MG TABLET GT SCH ×3 (08:37→17:10)
[2016-10-14] MEDS: CHOLECALCIFEROL (VITAMIN D 3) 400 UNIT TABLET GT SCH (08:37)
[2016-10-14] MEDS: SERTRALINE HCL 25 MG TABLET GT SCH (08:38)
[2016-10-14] MEDS: HYDROGEN PEROXIDE 480 ML BOTTLE TP SCH ×2 (08:38→20:26)
[2016-10-14] MEDS: Z GUARD REMEDY 4 OZ OINT TP SCH ×2 (08:38→20:27)
--- NOTE | 2016-10-14 09:00 | NUR ---
Seen and examined by Dr Lubin with no new order
--- NOTE | 2016-10-14 09:30 | NUR ---
RN NOTES RECEIVED PT ON BED, RESPIRATION EVEN AND UNLABORED, FAMILY AT THE BEDSIDE, CONTINUE TO MONITOR .
--- NOTE | 2016-10-14 09:30 | NUR ---
Seen and examined by Dr. Aguilar with no new order given.
--- NOTE | 2016-10-14 18:22 | NUR ---
RN NOTES PT STABLE, NO SIGNIFICANT CHANGES NOTED ON THIS SHIFT .
[2016-10-14] MEDS: CLOTRIMAZOLE 1% 15 GM TUBE TP SCH (20:26)
[2016-10-14] MEDS: POLYETHYLENE GLYCOL 3350 17 GM POWD.PACK GT SCH (22:27)
[2016-10-15] MEDS: POLYVINYL ALCOHOL 15 ML BOTTLE EACHEYE SCH ×4 (00:26→18:11)
[2016-10-15] MEDS: ALBUTEROL FS 2.5 MG/3 ML VIAL.NEB NEB SCH ×4 (02:26→20:09)
[2016-10-15] MEDS: CHLORHEXIDINE GLUCONATE 15 ML UDC MM SCH ×2 (05:35→18:11)
[2016-10-15 07:57] VITALS: BP 117/75
[2016-10-15] MEDS: SENNOSIDES 8.6 MG TABLET GT SCH ×2 (08:24→20:44)
[2016-10-15] MEDS: BACLOFEN (10 MG) 10 MG TABLET GT SCH ×3 (08:24→16:54)
[2016-10-15] MEDS: FOLIC ACID 1 MG TABLET GT SCH ×2 (08:24→16:54)
[2016-10-15] MEDS: CARBAMAZEPINE 200 MG TABLET GT SCH ×3 (08:24→16:54)
[2016-10-15] MEDS: LEVETIRACETAM SOL (5 ML) 100 MG/ML UDC GT SCH ×2 (08:24→20:44)
[2016-10-15] MEDS: CHOLECALCIFEROL (VITAMIN D 3) 400 UNIT TABLET GT SCH (08:24)
[2016-10-15] MEDS: CLOTRIMAZOLE 1% 15 GM TUBE TP SCH ×2 (08:25→20:48)
[2016-10-15] MEDS: Z GUARD REMEDY 4 OZ OINT TP SCH ×2 (08:25→20:48)
[2016-10-15] MEDS: SERTRALINE HCL 25 MG TABLET GT SCH (08:25)
[2016-10-15] MEDS: HYDROGEN PEROXIDE 480 ML BOTTLE TP SCH ×2 (08:25→20:48)
--- NOTE | 2016-10-15 13:32 | NUR ---
Seen and examined by Dr. Jeff dsouza. Resident up in wheelchair, fed by staff during meals. No signs of aspiration.
--- NOTE | 2016-10-15 16:09 | NUR ---
Received and order from Dr. Lombardi for 500 units of Botox to be administered in the patient's bilateral lower and upper extremities. MD will administer the medication once it is available. Order faxed to [facility] and [facility] pharmacy.
[2016-10-15] MEDS: POLYETHYLENE GLYCOL 3350 17 GM POWD.PACK GT SCH (21:07)
[2016-10-15 21:31] VITALS: BP 95/70
[2016-10-16] MEDS: POLYVINYL ALCOHOL 15 ML BOTTLE EACHEYE SCH ×5 (00:48→23:34)
[2016-10-16] MEDS: ALBUTEROL FS 2.5 MG/3 ML VIAL.NEB NEB SCH ×4 (01:44→19:35)
[2016-10-16] MEDS: CHLORHEXIDINE GLUCONATE 15 ML UDC MM SCH ×2 (05:08→17:50)
[2016-10-16 07:42] VITALS: BP 114/70
[2016-10-16] MEDS: BACLOFEN (10 MG) 10 MG TABLET GT SCH ×3 (08:48→17:50)
[2016-10-16] MEDS: CHOLECALCIFEROL (VITAMIN D 3) 400 UNIT TABLET GT SCH (08:48)
[2016-10-16] MEDS: SERTRALINE HCL 25 MG TABLET GT SCH (08:48)
[2016-10-16] MEDS: SENNOSIDES 8.6 MG TABLET GT SCH ×2 (08:48→20:04)
[2016-10-16] MEDS: CARBAMAZEPINE 200 MG TABLET GT SCH ×3 (08:48→17:50)
[2016-10-16] MEDS: LEVETIRACETAM SOL (5 ML) 100 MG/ML UDC GT SCH ×2 (08:48→20:04)
[2016-10-16] MEDS: HYDROGEN PEROXIDE 480 ML BOTTLE TP SCH ×2 (08:48→20:04)
[2016-10-16] MEDS: FOLIC ACID 1 MG TABLET GT SCH ×2 (08:48→17:50)
[2016-10-16] MEDS: Z GUARD REMEDY 4 OZ OINT TP SCH ×2 (08:49→20:05)
[2016-10-16] MEDS: CLOTRIMAZOLE 1% 15 GM TUBE TP SCH ×2 (08:49→20:05)
[2016-10-16] MEDS: POLYETHYLENE GLYCOL 3350 17 GM POWD.PACK GT SCH (21:07)
[2016-10-16 21:13] VITALS: BP 117/59
[2016-10-17] MEDS: ALBUTEROL FS 2.5 MG/3 ML VIAL.NEB NEB SCH ×4 (01:55→19:30)
[2016-10-17] MEDS: POLYVINYL ALCOHOL 15 ML BOTTLE EACHEYE SCH ×4 (05:11→23:11)
[2016-10-17] MEDS: MAGNESIUM HYDROXIDE 30 ML UDC GT PRN (05:11)
[2016-10-17] MEDS: CHLORHEXIDINE GLUCONATE 15 ML UDC MM SCH ×2 (05:11→17:56)
[2016-10-17 07:54] VITALS: BP 111/55
[2016-10-17] MEDS: BACLOFEN (10 MG) 10 MG TABLET GT SCH ×3 (09:09→17:55)
[2016-10-17] MEDS: SENNOSIDES 8.6 MG TABLET GT SCH ×2 (09:09→20:32)
[2016-10-17] MEDS: LEVETIRACETAM SOL (5 ML) 100 MG/ML UDC GT SCH ×2 (09:09→21:02)
[2016-10-17] MEDS: FOLIC ACID 1 MG TABLET GT SCH ×2 (09:09→17:55)
[2016-10-17] MEDS: HYDROGEN PEROXIDE 480 ML BOTTLE TP SCH ×2 (09:10→20:32)
[2016-10-17] MEDS: CARBAMAZEPINE 200 MG TABLET GT SCH ×3 (09:10→17:55)
[2016-10-17] MEDS: CLOTRIMAZOLE 1% 15 GM TUBE TP SCH ×2 (09:10→20:32)
[2016-10-17] MEDS: Z GUARD REMEDY 4 OZ OINT TP SCH ×2 (09:10→20:32)
[2016-10-17] MEDS: CHOLECALCIFEROL (VITAMIN D 3) 400 UNIT TABLET GT SCH (09:10)
[2016-10-17] MEDS: SERTRALINE HCL 25 MG TABLET GT SCH (09:10)
[2016-10-17 20:08] VITALS: BP 104/58
[2016-10-17] MEDS: POLYETHYLENE GLYCOL 3350 17 GM POWD.PACK GT SCH (21:02)
[2016-10-18] MEDS: ALBUTEROL FS 2.5 MG/3 ML VIAL.NEB NEB SCH ×4 (00:42→19:12)
[2016-10-18] MEDS: CHLORHEXIDINE GLUCONATE 15 ML UDC MM SCH ×2 (05:10→17:57)
[2016-10-18] MEDS: POLYVINYL ALCOHOL 15 ML BOTTLE EACHEYE SCH ×4 (05:10→23:25)
[2016-10-18 07:34] VITALS: BP 115/69
[2016-10-18] MEDS ORDERED: TUBERCULIN,PURIF.PROT.DERIV. 5 TU/0.1 ML DISP.SYRIN ID SCH (09:00)
[2016-10-18] MEDS: FOLIC ACID 1 MG TABLET GT SCH ×2 (09:28→17:57)
[2016-10-18] MEDS: SENNOSIDES 8.6 MG TABLET GT SCH ×2 (09:29→20:26)
[2016-10-18] MEDS: BACLOFEN (10 MG) 10 MG TABLET GT SCH ×3 (09:29→17:57)
[2016-10-18] MEDS: LEVETIRACETAM SOL (5 ML) 100 MG/ML UDC GT SCH ×2 (09:29→20:26)
[2016-10-18] MEDS: CARBAMAZEPINE 200 MG TABLET GT SCH ×3 (09:31→17:57)
[2016-10-18] MEDS: SERTRALINE HCL 25 MG TABLET GT SCH (09:33)
[2016-10-18] MEDS: HYDROGEN PEROXIDE 480 ML BOTTLE TP SCH ×2 (09:33→20:26)
[2016-10-18] MEDS: CHOLECALCIFEROL (VITAMIN D 3) 400 UNIT TABLET GT SCH (09:33)
[2016-10-18] MEDS: Z GUARD REMEDY 4 OZ OINT TP SCH ×2 (09:34→20:26)
[2016-10-18] MEDS: CLOTRIMAZOLE 1% 15 GM TUBE TP SCH ×2 (09:34→20:26)
[2016-10-18 20:19] VITALS: BP 111/57
[2016-10-18] MEDS: POLYETHYLENE GLYCOL 3350 17 GM POWD.PACK GT SCH (21:06)
[2016-10-19] MEDS: ALBUTEROL FS 2.5 MG/3 ML VIAL.NEB NEB SCH ×4 (01:58→21:54)
[2016-10-19] MEDS: CHLORHEXIDINE GLUCONATE 15 ML UDC MM SCH ×2 (05:15→17:06)
[2016-10-19] MEDS: POLYVINYL ALCOHOL 15 ML BOTTLE EACHEYE SCH ×4 (05:15→23:20)
[2016-10-19] MEDS: MAGNESIUM HYDROXIDE 30 ML UDC GT PRN (05:16)
[2016-10-19 07:38] VITALS: BP 117/61
[2016-10-19] MEDS: FOLIC ACID 1 MG TABLET GT SCH ×2 (09:00→17:05)
[2016-10-19] MEDS: SERTRALINE HCL 25 MG TABLET GT SCH (09:00)
[2016-10-19] MEDS: SENNOSIDES 8.6 MG TABLET GT SCH ×2 (09:00→21:41)
[2016-10-19] MEDS: CHOLECALCIFEROL (VITAMIN D 3) 400 UNIT TABLET GT SCH (09:00)
[2016-10-19] MEDS: CARBAMAZEPINE 200 MG TABLET GT SCH ×3 (09:00→17:05)
[2016-10-19] MEDS: LEVETIRACETAM SOL (5 ML) 100 MG/ML UDC GT SCH ×2 (09:00→21:41)
[2016-10-19] MEDS: BACLOFEN (10 MG) 10 MG TABLET GT SCH ×3 (09:00→17:05)
[2016-10-19] MEDS: CLOTRIMAZOLE 1% 15 GM TUBE TP SCH ×2 (09:01→21:41)
[2016-10-19] MEDS: Z GUARD REMEDY 4 OZ OINT TP SCH ×2 (09:01→21:41)
[2016-10-19] MEDS: HYDROGEN PEROXIDE 480 ML BOTTLE TP SCH ×2 (09:01→21:41)
[2016-10-19 19:48] VITALS: BP 126/71
[2016-10-19] MEDS: POLYETHYLENE GLYCOL 3350 17 GM POWD.PACK GT SCH (21:41)
[2016-10-20] MEDS: ALBUTEROL FS 2.5 MG/3 ML VIAL.NEB NEB SCH ×4 (02:57→20:10)
[2016-10-20] MEDS: POLYVINYL ALCOHOL 15 ML BOTTLE EACHEYE SCH ×4 (05:05→23:11)
[2016-10-20] MEDS: CHLORHEXIDINE GLUCONATE 15 ML UDC MM SCH ×2 (05:05→17:26)
[2016-10-20 07:59] VITALS: BP 129/66
[2016-10-20] MEDS: SERTRALINE HCL 25 MG TABLET GT SCH (08:41)
[2016-10-20] MEDS: BACLOFEN (10 MG) 10 MG TABLET GT SCH ×3 (08:41→17:25)
[2016-10-20] MEDS: CHOLECALCIFEROL (VITAMIN D 3) 400 UNIT TABLET GT SCH (08:41)
[2016-10-20] MEDS: FOLIC ACID 1 MG TABLET GT SCH ×2 (08:41→17:25)
[2016-10-20] MEDS: CARBAMAZEPINE 200 MG TABLET GT SCH ×3 (08:41→17:25)
[2016-10-20] MEDS: LEVETIRACETAM SOL (5 ML) 100 MG/ML UDC GT SCH ×2 (08:41→20:08)
[2016-10-20] MEDS: SENNOSIDES 8.6 MG TABLET GT SCH ×2 (08:41→20:08)
[2016-10-20] MEDS: CLOTRIMAZOLE 1% 15 GM TUBE TP SCH ×2 (09:00→20:08)
[2016-10-20] MEDS: HYDROGEN PEROXIDE 480 ML BOTTLE TP SCH ×2 (09:00→20:08)
[2016-10-20] MEDS: Z GUARD REMEDY 4 OZ OINT TP SCH ×2 (09:00→20:08)
[2016-10-20 19:38] VITALS: BP 97/62
[2016-10-20] MEDS: POLYETHYLENE GLYCOL 3350 17 GM POWD.PACK GT SCH (21:05)
[2016-10-21] MEDS: ALBUTEROL FS 2.5 MG/3 ML VIAL.NEB NEB SCH ×4 (01:38→19:52)
[2016-10-21] MEDS: POLYVINYL ALCOHOL 15 ML BOTTLE EACHEYE SCH ×4 (05:09→23:55)
[2016-10-21] MEDS: CHLORHEXIDINE GLUCONATE 15 ML UDC MM SCH ×2 (05:09→18:38)
[2016-10-21 07:56] VITALS: BP 121/64
[2016-10-21] MEDS: LEVETIRACETAM SOL (5 ML) 100 MG/ML UDC GT SCH ×2 (09:24→20:39)
[2016-10-21] MEDS: BACLOFEN (10 MG) 10 MG TABLET GT SCH ×3 (09:24→16:38)
[2016-10-21] MEDS: SENNOSIDES 8.6 MG TABLET GT SCH ×2 (09:24→20:36)
[2016-10-21] MEDS: FOLIC ACID 1 MG TABLET GT SCH ×2 (09:24→16:38)
[2016-10-21] MEDS: CARBAMAZEPINE 200 MG TABLET GT SCH ×3 (09:25→16:38)
[2016-10-21] MEDS: Z GUARD REMEDY 4 OZ OINT TP SCH ×2 (09:25→20:45)
[2016-10-21] MEDS: HYDROGEN PEROXIDE 480 ML BOTTLE TP SCH ×2 (09:25→20:45)
[2016-10-21] MEDS: CHOLECALCIFEROL (VITAMIN D 3) 400 UNIT TABLET GT SCH (09:25)
[2016-10-21] MEDS: SERTRALINE HCL 25 MG TABLET GT SCH (09:25)
[2016-10-21] MEDS: CLOTRIMAZOLE 1% 15 GM TUBE TP SCH ×2 (09:25→20:45)
--- NOTE | 2016-10-21 10:05 | NUR ---
Seen and examined by Dr Lubin with no new order
[2016-10-21 19:52] VITALS: BP 102/60
[2016-10-21] MEDS: POLYETHYLENE GLYCOL 3350 17 GM POWD.PACK GT SCH (20:42)
[2016-10-22] MEDS: ALBUTEROL FS 2.5 MG/3 ML VIAL.NEB NEB SCH ×4 (02:06→20:15)
[2016-10-22] MEDS: POLYVINYL ALCOHOL 15 ML BOTTLE EACHEYE SCH ×4 (05:37→23:47)
[2016-10-22] MEDS: CHLORHEXIDINE GLUCONATE 15 ML UDC MM SCH ×2 (05:38→18:58)
[2016-10-22 08:02] VITALS: BP 130/68
[2016-10-22] MEDS: SERTRALINE HCL 25 MG TABLET GT SCH (08:25)
[2016-10-22] MEDS: SENNOSIDES 8.6 MG TABLET GT SCH ×2 (08:25→20:15)
[2016-10-22] MEDS: LEVETIRACETAM SOL (5 ML) 100 MG/ML UDC GT SCH ×2 (08:25→20:15)
[2016-10-22] MEDS: CLOTRIMAZOLE 1% 15 GM TUBE TP SCH ×2 (08:25→20:15)
[2016-10-22] MEDS: FOLIC ACID 1 MG TABLET GT SCH ×2 (08:25→16:23)
[2016-10-22] MEDS: BACLOFEN (10 MG) 10 MG TABLET GT SCH ×3 (08:25→17:00)
[2016-10-22] MEDS: CARBAMAZEPINE 200 MG TABLET GT SCH ×3 (08:25→16:23)
[2016-10-22] MEDS: HYDROGEN PEROXIDE 480 ML BOTTLE TP SCH ×2 (08:25→20:15)
[2016-10-22] MEDS: Z GUARD REMEDY 4 OZ OINT TP SCH ×2 (08:25→20:15)
[2016-10-22] MEDS: CHOLECALCIFEROL (VITAMIN D 3) 400 UNIT TABLET GT SCH (08:25)
[2016-10-22 20:00] VITALS: BP 118/72
[2016-10-22] MEDS: POLYETHYLENE GLYCOL 3350 17 GM POWD.PACK GT SCH (21:48)
[2016-10-23] MEDS: ALBUTEROL FS 2.5 MG/3 ML VIAL.NEB NEB SCH ×4 (02:14→19:51)
[2016-10-23] MEDS: CHLORHEXIDINE GLUCONATE 15 ML UDC MM SCH ×2 (05:15→17:28)
[2016-10-23] MEDS: POLYVINYL ALCOHOL 15 ML BOTTLE EACHEYE SCH ×4 (05:15→23:45)
[2016-10-23 07:43] VITALS: BP 128/46
[2016-10-23] MEDS: BACLOFEN (10 MG) 10 MG TABLET GT SCH ×3 (08:21→17:03)
[2016-10-23] MEDS: FOLIC ACID 1 MG TABLET GT SCH ×2 (08:21→17:03)
[2016-10-23] MEDS: LEVETIRACETAM SOL (5 ML) 100 MG/ML UDC GT SCH ×2 (08:21→20:18)
[2016-10-23] MEDS: CARBAMAZEPINE 200 MG TABLET GT SCH ×3 (08:22→17:03)
[2016-10-23] MEDS: CHOLECALCIFEROL (VITAMIN D 3) 400 UNIT TABLET GT SCH (08:22)
[2016-10-23] MEDS: SENNOSIDES 8.6 MG TABLET GT SCH ×2 (08:22→20:18)
[2016-10-23] MEDS: CLOTRIMAZOLE 1% 15 GM TUBE TP SCH ×2 (08:22→20:19)
[2016-10-23] MEDS: SERTRALINE HCL 25 MG TABLET GT SCH (08:22)
[2016-10-23] MEDS: HYDROGEN PEROXIDE 480 ML BOTTLE TP SCH ×2 (08:22→20:18)
[2016-10-23] MEDS: Z GUARD REMEDY 4 OZ OINT TP SCH (08:23)
--- NOTE | 2016-10-23 17:03 | NUR ---
Dr. Marlon Polanco administered Botox injection to bilateral lower and upper extremities for dystonia. Pt tolerated procedure well.
[2016-10-23] MEDS: POLYETHYLENE GLYCOL 3350 17 GM POWD.PACK GT SCH (21:21)
[2016-10-24] MEDS: ALBUTEROL FS 2.5 MG/3 ML VIAL.NEB NEB SCH ×4 (01:30→19:32)
[2016-10-24] MEDS: CHLORHEXIDINE GLUCONATE 15 ML UDC MM SCH ×2 (05:11→17:00)
[2016-10-24] MEDS: POLYVINYL ALCOHOL 15 ML BOTTLE EACHEYE SCH ×4 (05:11→23:30)
[2016-10-24 08:10] VITALS: BP 103/67
[2016-10-24] MEDS: FOLIC ACID 1 MG TABLET GT SCH ×2 (08:22→16:55)
[2016-10-24] MEDS: SENNOSIDES 8.6 MG TABLET GT SCH ×2 (08:22→20:05)
[2016-10-24] MEDS: SERTRALINE HCL 25 MG TABLET GT SCH (08:22)
[2016-10-24] MEDS: LEVETIRACETAM SOL (5 ML) 100 MG/ML UDC GT SCH ×2 (08:22→20:05)
[2016-10-24] MEDS: CARBAMAZEPINE 200 MG TABLET GT SCH ×3 (08:22→16:55)
[2016-10-24] MEDS: CHOLECALCIFEROL (VITAMIN D 3) 400 UNIT TABLET GT SCH (08:22)
[2016-10-24] MEDS: BACLOFEN (10 MG) 10 MG TABLET GT SCH ×3 (08:22→16:59)
[2016-10-24] MEDS: CLOTRIMAZOLE 1% 15 GM TUBE TP SCH ×2 (08:23→20:05)
[2016-10-24] MEDS: HYDROGEN PEROXIDE 480 ML BOTTLE TP SCH ×2 (08:23→20:05)
--- NOTE | 2016-10-24 13:33 | NUR ---
Seen and examined by Dr. Aguilar, NNO given.
--- NOTE | 2016-10-24 14:53 | NUR ---
Order for Cholrhexidine Gluconate 4% Q24 hours; total body wash including face every Thursday and Thursday of each month X12 months ( until May 2017) for MRSA Decolonization.
[2016-10-24 21:31] VITALS: BP 123/76
[2016-10-24] MEDS: POLYETHYLENE GLYCOL 3350 17 GM POWD.PACK GT SCH (21:52)
[2016-10-25] MEDS: ALBUTEROL FS 2.5 MG/3 ML VIAL.NEB NEB SCH ×4 (01:32→19:39)
[2016-10-25] MEDS: POLYVINYL ALCOHOL 15 ML BOTTLE EACHEYE SCH ×4 (05:13→23:26)
[2016-10-25] MEDS: MAGNESIUM HYDROXIDE 30 ML UDC GT PRN (05:13)
[2016-10-25] MEDS: CHLORHEXIDINE GLUCONATE 15 ML UDC MM SCH ×2 (05:13→17:03)
[2016-10-25 08:27] VITALS: BP 111/61
[2016-10-25] MEDS: FOLIC ACID 1 MG TABLET GT SCH ×2 (08:54→17:03)
[2016-10-25] MEDS: LEVETIRACETAM SOL (5 ML) 100 MG/ML UDC GT SCH ×2 (08:55→20:06)
[2016-10-25] MEDS: BACLOFEN (10 MG) 10 MG TABLET GT SCH ×3 (08:55→17:03)
[2016-10-25] MEDS: SENNOSIDES 8.6 MG TABLET GT SCH ×2 (08:56→20:06)
[2016-10-25] MEDS: CARBAMAZEPINE 200 MG TABLET GT SCH ×3 (08:56→17:03)
[2016-10-25] MEDS: CHOLECALCIFEROL (VITAMIN D 3) 400 UNIT TABLET GT SCH (08:57)
[2016-10-25] MEDS: SERTRALINE HCL 25 MG TABLET GT SCH (08:57)
[2016-10-25] MEDS: CHLORHEXIDINE GLUCONATE 4% 118 ML BOTTLE TP SCH (08:57)
[2016-10-25] MEDS: HYDROGEN PEROXIDE 480 ML BOTTLE TP SCH ×2 (08:58→20:06)
[2016-10-25] MEDS: CLOTRIMAZOLE 1% 15 GM TUBE TP SCH ×2 (08:58→20:06)
--- NOTE | 2016-10-25 09:00 | NUR ---
Chlorhexidine Gluconate 4% Q24 hours: body wash rendered, as ordered.
[2016-10-25 19:42] VITALS: BP 107/59
[2016-10-25] MEDS: POLYETHYLENE GLYCOL 3350 17 GM POWD.PACK GT SCH (22:15)
[2016-10-26] MEDS: ALBUTEROL FS 2.5 MG/3 ML VIAL.NEB NEB SCH ×4 (01:51→19:30)
[2016-10-26] MEDS: CHLORHEXIDINE GLUCONATE 15 ML UDC MM SCH ×2 (05:13→18:08)
[2016-10-26] MEDS: MAGNESIUM HYDROXIDE 30 ML UDC GT PRN (05:13)
[2016-10-26] MEDS: POLYVINYL ALCOHOL 15 ML BOTTLE EACHEYE SCH ×4 (05:13→23:21)
[2016-10-26 07:31] VITALS: BP 125/63
[2016-10-26] MEDS: CHLORHEXIDINE GLUCONATE 4% 118 ML BOTTLE TP SCH (09:00)
[2016-10-26] MEDS: HYDROGEN PEROXIDE 480 ML BOTTLE TP SCH ×2 (09:00→20:14)
[2016-10-26] MEDS: CLOTRIMAZOLE 1% 15 GM TUBE TP SCH ×2 (09:00→20:14)
[2016-10-26] MEDS: LEVETIRACETAM SOL (5 ML) 100 MG/ML UDC GT SCH ×2 (09:14→20:14)
[2016-10-26] MEDS: SENNOSIDES 8.6 MG TABLET GT SCH ×2 (09:14→20:14)
[2016-10-26] MEDS: CARBAMAZEPINE 200 MG TABLET GT SCH ×3 (09:14→17:04)
[2016-10-26] MEDS: FOLIC ACID 1 MG TABLET GT SCH ×2 (09:14→17:04)
[2016-10-26] MEDS: SERTRALINE HCL 25 MG TABLET GT SCH (09:14)
[2016-10-26] MEDS: BACLOFEN (10 MG) 10 MG TABLET GT SCH ×3 (09:14→17:04)
[2016-10-26] MEDS: CHOLECALCIFEROL (VITAMIN D 3) 400 UNIT TABLET GT SCH (09:14)
[2016-10-26 20:09] VITALS: BP 132/77
[2016-10-26] MEDS: POLYETHYLENE GLYCOL 3350 17 GM POWD.PACK GT SCH (21:50)
[2016-10-27] MEDS: ALBUTEROL FS 2.5 MG/3 ML VIAL.NEB NEB SCH ×4 (02:04→20:23)
[2016-10-27] MEDS: POLYVINYL ALCOHOL 15 ML BOTTLE EACHEYE SCH ×4 (05:34→23:18)
[2016-10-27] MEDS: CHLORHEXIDINE GLUCONATE 15 ML UDC MM SCH ×2 (05:34→18:30)
[2016-10-27 08:15] VITALS: BP 121/44
[2016-10-27] MEDS: LEVETIRACETAM SOL (5 ML) 100 MG/ML UDC GT SCH ×2 (08:30→20:51)
[2016-10-27] MEDS: FOLIC ACID 1 MG TABLET GT SCH ×2 (08:30→17:21)
[2016-10-27] MEDS: SERTRALINE HCL 25 MG TABLET GT SCH (08:31)
[2016-10-27] MEDS: BACLOFEN (10 MG) 10 MG TABLET GT SCH ×3 (08:31→17:21)
[2016-10-27] MEDS: SENNOSIDES 8.6 MG TABLET GT SCH ×2 (08:31→20:51)
[2016-10-27] MEDS: CHOLECALCIFEROL (VITAMIN D 3) 400 UNIT TABLET GT SCH (08:31)
[2016-10-27] MEDS: CLOTRIMAZOLE 1% 15 GM TUBE TP SCH ×2 (08:31→20:51)
[2016-10-27] MEDS: CARBAMAZEPINE 200 MG TABLET GT SCH ×3 (08:31→17:21)
[2016-10-27] MEDS: HYDROGEN PEROXIDE 480 ML BOTTLE TP SCH ×2 (08:31→20:51)
[2016-10-27 19:48] VITALS: BP 112/53
[2016-10-27] MEDS: POLYETHYLENE GLYCOL 3350 17 GM POWD.PACK GT SCH (21:33)
[2016-10-28] MEDS: ALBUTEROL FS 2.5 MG/3 ML VIAL.NEB NEB SCH ×4 (01:48→20:31)
[2016-10-28] MEDS: POLYVINYL ALCOHOL 15 ML BOTTLE EACHEYE SCH ×4 (05:19→23:25)
[2016-10-28] MEDS: CHLORHEXIDINE GLUCONATE 15 ML UDC MM SCH ×2 (05:19→18:03)
[2016-10-28 07:44] VITALS: BP 126/66
[2016-10-28] MEDS: SERTRALINE HCL 25 MG TABLET GT SCH (09:17)
[2016-10-28] MEDS: BACLOFEN (10 MG) 10 MG TABLET GT SCH ×3 (09:17→16:47)
[2016-10-28] MEDS: LEVETIRACETAM SOL (5 ML) 100 MG/ML UDC GT SCH ×2 (09:17→20:19)
[2016-10-28] MEDS: SENNOSIDES 8.6 MG TABLET GT SCH ×2 (09:17→20:19)
[2016-10-28] MEDS: CARBAMAZEPINE 200 MG TABLET GT SCH ×3 (09:17→16:47)
[2016-10-28] MEDS: HYDROGEN PEROXIDE 480 ML BOTTLE TP SCH ×2 (09:17→20:19)
[2016-10-28] MEDS: FOLIC ACID 1 MG TABLET GT SCH ×2 (09:17→16:47)
[2016-10-28] MEDS: CHOLECALCIFEROL (VITAMIN D 3) 400 UNIT TABLET GT SCH (09:17)
[2016-10-28] MEDS: CLOTRIMAZOLE 1% 15 GM TUBE TP SCH ×2 (09:18→20:19)
--- NOTE | 2016-10-28 13:17 | NUR ---
Pt seen by Dr. Aguilar. Showed him pt's right breast that has a dark blue thread coming out from the part of the areola. Dr. Aguilar said it looks like a blue nylon that was probably from the pt's breast implant. He said to cut the thread and there is nothing to worry about. Pt's mother was present at bedside and aware of what Dr. Aguilar said.
--- NOTE | 2016-10-28 17:59 | NUR ---
Blue thread coming from pt's areola was cut. Pt tolerated well. Blue thread was 5 cm in length.
[2016-10-28 19:46] VITALS: BP 101/60
[2016-10-28] MEDS: POLYETHYLENE GLYCOL 3350 17 GM POWD.PACK GT SCH (22:03)
[2016-10-29] MEDS: ALBUTEROL FS 2.5 MG/3 ML VIAL.NEB NEB SCH ×6 (01:31→19:30)
[2016-10-29] MEDS: POLYVINYL ALCOHOL 15 ML BOTTLE EACHEYE SCH ×4 (05:13→23:43)
[2016-10-29] MEDS: CHLORHEXIDINE GLUCONATE 15 ML UDC MM SCH ×2 (05:13→18:35)
[2016-10-29 07:48] VITALS: BP 143/79
[2016-10-29] MEDS: CARBAMAZEPINE 200 MG TABLET GT SCH ×3 (08:28→17:00)
[2016-10-29] MEDS: SENNOSIDES 8.6 MG TABLET GT SCH ×2 (08:28→21:33)
[2016-10-29] MEDS: SERTRALINE HCL 25 MG TABLET GT SCH (08:28)
[2016-10-29] MEDS: CHOLECALCIFEROL (VITAMIN D 3) 400 UNIT TABLET GT SCH (08:28)
[2016-10-29] MEDS: FOLIC ACID 1 MG TABLET GT SCH ×2 (08:28→17:00)
[2016-10-29] MEDS: LEVETIRACETAM SOL (5 ML) 100 MG/ML UDC GT SCH ×2 (08:28→21:33)
[2016-10-29] MEDS: BACLOFEN (10 MG) 10 MG TABLET GT SCH ×3 (08:28→17:00)
[2016-10-29] MEDS: CLOTRIMAZOLE 1% 15 GM TUBE TP SCH ×2 (08:29→21:33)
[2016-10-29] MEDS: HYDROGEN PEROXIDE 480 ML BOTTLE TP SCH ×2 (08:29→21:33)
[2016-10-29 20:00] VITALS: BP 110/61
[2016-10-29] MEDS: POLYETHYLENE GLYCOL 3350 17 GM POWD.PACK GT SCH (21:34)
[2016-10-30] MEDS: ALBUTEROL FS 2.5 MG/3 ML VIAL.NEB NEB SCH ×4 (01:56→19:24)
[2016-10-30] MEDS: POLYVINYL ALCOHOL 15 ML BOTTLE EACHEYE SCH ×3 (05:26→17:41)
[2016-10-30] MEDS: CHLORHEXIDINE GLUCONATE 15 ML UDC MM SCH ×2 (05:26→17:41)
[2016-10-30 07:48] VITALS: BP 125/78
[2016-10-30] MEDS: HYDROGEN PEROXIDE 480 ML BOTTLE TP SCH ×2 (08:29→21:00)
[2016-10-30] MEDS: LEVETIRACETAM SOL (5 ML) 100 MG/ML UDC GT SCH ×2 (08:29→21:00)
[2016-10-30] MEDS: CHOLECALCIFEROL (VITAMIN D 3) 400 UNIT TABLET GT SCH (08:29)
[2016-10-30] MEDS: SERTRALINE HCL 25 MG TABLET GT SCH (08:29)
[2016-10-30] MEDS: CARBAMAZEPINE 200 MG TABLET GT SCH ×3 (08:29→16:40)
[2016-10-30] MEDS: SENNOSIDES 8.6 MG TABLET GT SCH ×2 (08:29→21:00)
[2016-10-30] MEDS: FOLIC ACID 1 MG TABLET GT SCH ×2 (08:29→16:40)
[2016-10-30] MEDS: BACLOFEN (10 MG) 10 MG TABLET GT SCH ×3 (08:29→16:40)
[2016-10-30] MEDS: CLOTRIMAZOLE 1% 15 GM TUBE TP SCH ×2 (08:30→21:00)
[2016-10-30 20:19] VITALS: BP 111/60
[2016-10-30] MEDS: POLYETHYLENE GLYCOL 3350 17 GM POWD.PACK GT SCH (21:00)
[2016-10-31] MEDS: POLYVINYL ALCOHOL 15 ML BOTTLE EACHEYE SCH ×5 (00:58→23:04)
[2016-10-31] MEDS: ALBUTEROL FS 2.5 MG/3 ML VIAL.NEB NEB SCH ×4 (01:27→19:59)
[2016-10-31] MEDS: CHLORHEXIDINE GLUCONATE 15 ML UDC MM SCH ×2 (05:33→17:06)
[2016-10-31 07:26] VITALS: BP 112/70
--- NOTE | 2016-10-31 08:58 | NUR ---
Pt still has gluteal crease/sacral excoriation. Received order to continue treatment to apply Z-guard and cover with Mepilex. Pt's mother aware of it.
[2016-10-31] MEDS: FOLIC ACID 1 MG TABLET GT SCH ×2 (09:25→16:19)
[2016-10-31] MEDS: SENNOSIDES 8.6 MG TABLET GT SCH ×2 (09:25→21:02)
[2016-10-31] MEDS: LEVETIRACETAM SOL (5 ML) 100 MG/ML UDC GT SCH ×2 (09:25→21:02)
[2016-10-31] MEDS: BACLOFEN (10 MG) 10 MG TABLET GT SCH ×3 (09:25→16:26)
[2016-10-31] MEDS: CLOTRIMAZOLE 1% 15 GM TUBE TP SCH ×2 (09:27→21:02)
[2016-10-31] MEDS: CARBAMAZEPINE 200 MG TABLET GT SCH ×3 (09:27→16:19)
[2016-10-31] MEDS: SERTRALINE HCL 25 MG TABLET GT SCH (09:27)
[2016-10-31] MEDS: CHOLECALCIFEROL (VITAMIN D 3) 400 UNIT TABLET GT SCH (09:27)
[2016-10-31] MEDS: HYDROGEN PEROXIDE 480 ML BOTTLE TP SCH ×2 (09:27→21:02)
[2016-10-31 20:04] VITALS: BP 113/61
[2016-10-31] MEDS: Z GUARD REMEDY 4 OZ OINT TP SCH (21:02)
[2016-10-31] MEDS: POLYETHYLENE GLYCOL 3350 17 GM POWD.PACK GT SCH (21:02)
[2016-11-01] MEDS: ALBUTEROL FS 2.5 MG/3 ML VIAL.NEB NEB SCH ×4 (01:57→19:30)
[2016-11-01] MEDS: CHLORHEXIDINE GLUCONATE 15 ML UDC MM SCH ×2 (05:37→17:58)
[2016-11-01] MEDS: POLYVINYL ALCOHOL 15 ML BOTTLE EACHEYE SCH ×4 (05:37→23:53)
[2016-11-01 07:41] VITALS: BP 110/67
[2016-11-01] MEDS: SENNOSIDES 8.6 MG TABLET GT SCH ×2 (08:37→21:05)
[2016-11-01] MEDS: CARBAMAZEPINE 200 MG TABLET GT SCH (08:37)
[2016-11-01] MEDS: CHOLECALCIFEROL (VITAMIN D 3) 400 UNIT TABLET GT SCH (08:37)
[2016-11-01] MEDS: FOLIC ACID 1 MG TABLET GT SCH ×2 (08:37→17:58)
[2016-11-01] MEDS: SERTRALINE HCL 25 MG TABLET GT SCH (08:37)
[2016-11-01] MEDS: LEVETIRACETAM SOL (5 ML) 100 MG/ML UDC GT SCH ×2 (08:37→21:05)
[2016-11-01] MEDS: BACLOFEN (10 MG) 10 MG TABLET GT SCH ×3 (08:37→17:58)
[2016-11-01] MEDS: HYDROGEN PEROXIDE 480 ML BOTTLE TP SCH ×2 (13:15→21:05)
[2016-11-01] MEDS: CLOTRIMAZOLE 1% 15 GM TUBE TP SCH ×2 (13:15→21:05)
[2016-11-01] MEDS: Z GUARD REMEDY 4 OZ OINT TP SCH ×2 (13:15→21:05)
[2016-11-01] MEDS: CARBAMAZEPINE 100 MG/5 ML GT SCH ×2 (13:24→17:58)
[2016-11-01 20:26] VITALS: BP 112/71
[2016-11-01] MEDS: POLYETHYLENE GLYCOL 3350 17 GM POWD.PACK GT SCH (21:05)
[2016-11-02] MEDS: ALBUTEROL FS 2.5 MG/3 ML VIAL.NEB NEB SCH ×4 (01:30→20:29)
[2016-11-02] MEDS: POLYVINYL ALCOHOL 15 ML BOTTLE EACHEYE SCH ×4 (05:40→23:33)
[2016-11-02] MEDS: CHLORHEXIDINE GLUCONATE 15 ML UDC MM SCH ×2 (05:40→17:38)
[2016-11-02 07:50] VITALS: BP 129/58
[2016-11-02] MEDS: CHOLECALCIFEROL (VITAMIN D 3) 400 UNIT TABLET GT SCH (08:29)
[2016-11-02] MEDS: CARBAMAZEPINE 100 MG/5 ML GT SCH ×3 (08:29→17:38)
[2016-11-02] MEDS: FOLIC ACID 1 MG TABLET GT SCH ×2 (08:29→17:38)
[2016-11-02] MEDS: SENNOSIDES 8.6 MG TABLET GT SCH ×2 (08:29→21:06)
[2016-11-02] MEDS: BACLOFEN (10 MG) 10 MG TABLET GT SCH ×3 (08:29→17:38)
[2016-11-02] MEDS: LEVETIRACETAM SOL (5 ML) 100 MG/ML UDC GT SCH ×2 (08:29→21:06)
[2016-11-02] MEDS: SERTRALINE HCL 25 MG TABLET GT SCH (08:29)
[2016-11-02] MEDS: Z GUARD REMEDY 4 OZ OINT TP SCH ×2 (09:02→21:06)
[2016-11-02] MEDS: HYDROGEN PEROXIDE 480 ML BOTTLE TP SCH ×2 (09:02→21:06)
[2016-11-02] MEDS: CLOTRIMAZOLE 1% 15 GM TUBE TP SCH ×2 (09:02→21:06)
[2016-11-02 19:41] VITALS: BP 110/64
[2016-11-02] MEDS: POLYETHYLENE GLYCOL 3350 17 GM POWD.PACK GT SCH (21:06)
[2016-11-03] MEDS: ALBUTEROL FS 2.5 MG/3 ML VIAL.NEB NEB SCH ×4 (01:50→20:24)
[2016-11-03] MEDS: CHLORHEXIDINE GLUCONATE 15 ML UDC MM SCH ×2 (05:30→18:00)
[2016-11-03] MEDS: POLYVINYL ALCOHOL 15 ML BOTTLE EACHEYE SCH ×4 (05:30→23:31)
[2016-11-03 08:41] VITALS: BP 117/57
[2016-11-03] MEDS: FOLIC ACID 1 MG TABLET GT SCH ×2 (09:12→16:43)
[2016-11-03] MEDS: LEVETIRACETAM SOL (5 ML) 100 MG/ML UDC GT SCH ×2 (09:12→21:05)
[2016-11-03] MEDS: BACLOFEN (10 MG) 10 MG TABLET GT SCH ×3 (09:13→16:43)
[2016-11-03] MEDS: CARBAMAZEPINE 100 MG/5 ML GT SCH ×3 (09:13→16:43)
[2016-11-03] MEDS: CHOLECALCIFEROL (VITAMIN D 3) 400 UNIT TABLET GT SCH (09:13)
[2016-11-03] MEDS: SENNOSIDES 8.6 MG TABLET GT SCH ×2 (09:13→21:05)
[2016-11-03] MEDS: SERTRALINE HCL 25 MG TABLET GT SCH (09:13)
[2016-11-03] MEDS: CLOTRIMAZOLE 1% 15 GM TUBE TP SCH ×2 (11:00→21:05)
[2016-11-03] MEDS: HYDROGEN PEROXIDE 480 ML BOTTLE TP SCH ×2 (11:00→21:05)
[2016-11-03] MEDS: Z GUARD REMEDY 4 OZ OINT TP SCH ×2 (11:00→21:05)
[2016-11-03 19:39] VITALS: BP 119/65
[2016-11-03] MEDS: POLYETHYLENE GLYCOL 3350 17 GM POWD.PACK GT SCH (21:05)
[2016-11-04] MEDS: ALBUTEROL FS 2.5 MG/3 ML VIAL.NEB NEB SCH ×4 (02:25→19:53)
[2016-11-04] MEDS: CHLORHEXIDINE GLUCONATE 15 ML UDC MM SCH ×2 (05:34→18:09)
[2016-11-04] MEDS: POLYVINYL ALCOHOL 15 ML BOTTLE EACHEYE SCH ×3 (05:34→18:09)
[2016-11-04 08:20] VITALS: BP 130/71
[2016-11-04] MEDS: SERTRALINE HCL 25 MG TABLET GT SCH (09:11)
[2016-11-04] MEDS: FOLIC ACID 1 MG TABLET GT SCH ×2 (09:11→16:45)
[2016-11-04] MEDS: LEVETIRACETAM SOL (5 ML) 100 MG/ML UDC GT SCH ×2 (09:11→20:54)
[2016-11-04] MEDS: CARBAMAZEPINE 100 MG/5 ML GT SCH ×3 (09:11→16:45)
[2016-11-04] MEDS: CHOLECALCIFEROL (VITAMIN D 3) 400 UNIT TABLET GT SCH (09:11)
[2016-11-04] MEDS: BACLOFEN (10 MG) 10 MG TABLET GT SCH ×3 (09:11→16:45)
[2016-11-04] MEDS: SENNOSIDES 8.6 MG TABLET GT SCH ×2 (09:11→20:54)
[2016-11-04] MEDS: Z GUARD REMEDY 4 OZ OINT TP SCH ×2 (11:30→20:55)
[2016-11-04] MEDS: CLOTRIMAZOLE 1% 15 GM TUBE TP SCH (11:30)
[2016-11-04] MEDS: HYDROGEN PEROXIDE 480 ML BOTTLE TP SCH ×2 (11:30→20:54)
[2016-11-04 19:53] VITALS: BP 113/62
[2016-11-04] MEDS: POLYETHYLENE GLYCOL 3350 17 GM POWD.PACK GT SCH (22:23)
[2016-11-05] MEDS: POLYVINYL ALCOHOL 15 ML BOTTLE EACHEYE SCH ×4 (00:14→17:30)
[2016-11-05] MEDS: ALBUTEROL FS 2.5 MG/3 ML VIAL.NEB NEB SCH ×5 (01:53→19:53)
[2016-11-05] MEDS: CHLORHEXIDINE GLUCONATE 15 ML UDC MM SCH ×2 (06:24→17:32)
[2016-11-05 08:07] VITALS: BP 118/71
[2016-11-05] MEDS: FOLIC ACID 1 MG TABLET GT SCH ×2 (08:58→17:29)
[2016-11-05] MEDS: LEVETIRACETAM SOL (5 ML) 100 MG/ML UDC GT SCH ×2 (08:59→21:27)
[2016-11-05] MEDS: BACLOFEN (10 MG) 10 MG TABLET GT SCH ×3 (09:00→17:29)
[2016-11-05] MEDS: SENNOSIDES 8.6 MG TABLET GT SCH ×2 (09:00→21:27)
[2016-11-05] MEDS: CHOLECALCIFEROL (VITAMIN D 3) 400 UNIT TABLET GT SCH (09:01)
[2016-11-05] MEDS: SERTRALINE HCL 25 MG TABLET GT SCH (09:01)
[2016-11-05] MEDS: CARBAMAZEPINE 100 MG/5 ML GT SCH ×3 (09:01→17:31)
[2016-11-05] MEDS: Z GUARD REMEDY 4 OZ OINT TP SCH ×2 (09:38→21:28)
[2016-11-05] MEDS: HYDROGEN PEROXIDE 480 ML BOTTLE TP SCH ×2 (09:38→21:27)
[2016-11-05 19:42] VITALS: BP 107/59
[2016-11-05] MEDS: POLYETHYLENE GLYCOL 3350 17 GM POWD.PACK GT SCH (21:28)
[2016-11-06] MEDS: ALBUTEROL FS 2.5 MG/3 ML VIAL.NEB NEB SCH ×4 (02:07→19:55)
[2016-11-06] MEDS: CHLORHEXIDINE GLUCONATE 15 ML UDC MM SCH ×2 (05:54→18:01)
[2016-11-06] MEDS: POLYVINYL ALCOHOL 15 ML BOTTLE EACHEYE SCH ×5 (05:54→23:32)
--- NOTE | 2016-11-06 05:55 | NUR ---
Pt noted with strong urine odor,marilee in color.Good perineal care provided.Afebrile,will continue to monitor.
[2016-11-06 07:31] VITALS: BP 124/58
[2016-11-06] MEDS: BACLOFEN (10 MG) 10 MG TABLET GT SCH ×3 (08:57→16:44)
[2016-11-06] MEDS: HYDROGEN PEROXIDE 480 ML BOTTLE TP SCH ×2 (08:57→21:20)
[2016-11-06] MEDS: FOLIC ACID 1 MG TABLET GT SCH ×2 (08:57→16:44)
[2016-11-06] MEDS: CHOLECALCIFEROL (VITAMIN D 3) 400 UNIT TABLET GT SCH (08:57)
[2016-11-06] MEDS: SENNOSIDES 8.6 MG TABLET GT SCH ×2 (08:57→21:20)
[2016-11-06] MEDS: LEVETIRACETAM SOL (5 ML) 100 MG/ML UDC GT SCH ×2 (08:57→21:20)
[2016-11-06] MEDS: CARBAMAZEPINE 100 MG/5 ML GT SCH ×3 (08:57→16:44)
[2016-11-06] MEDS: SERTRALINE HCL 25 MG TABLET GT SCH (08:57)
[2016-11-06] MEDS: Z GUARD REMEDY 4 OZ OINT TP SCH ×2 (08:57→21:20)
[2016-11-06 19:39] VITALS: BP 107/64
[2016-11-06] MEDS: POLYETHYLENE GLYCOL 3350 17 GM POWD.PACK GT SCH (21:20)
[2016-11-07] MEDS: ALBUTEROL FS 2.5 MG/3 ML VIAL.NEB NEB SCH ×4 (01:20→19:58)
[2016-11-07] MEDS: CHLORHEXIDINE GLUCONATE 15 ML UDC MM SCH ×2 (05:36→17:00)
[2016-11-07] MEDS: POLYVINYL ALCOHOL 15 ML BOTTLE EACHEYE SCH ×4 (05:36→23:16)
--- NOTE | 2016-11-07 06:27 | NUR ---
ventilating engineer notes: noted patient with strong urine odor. afebrile. no s/s of discomfort. will monitor closely.
[2016-11-07 07:29] VITALS: BP 117/82
[2016-11-07] MEDS: SERTRALINE HCL 25 MG TABLET GT SCH (08:15)
[2016-11-07] MEDS: FOLIC ACID 1 MG TABLET GT SCH ×2 (08:15→16:54)
[2016-11-07] MEDS: BACLOFEN (10 MG) 10 MG TABLET GT SCH ×3 (08:15→16:54)
[2016-11-07] MEDS: CHOLECALCIFEROL 1,000 UNIT TABLET (VIT D3) GT SCH (08:16)
[2016-11-07] MEDS: Z GUARD REMEDY 4 OZ OINT TP SCH ×2 (08:16→20:26)
[2016-11-07] MEDS: HYDROGEN PEROXIDE 480 ML BOTTLE TP SCH ×2 (08:16→20:26)
[2016-11-07] MEDS: SENNOSIDES 8.6 MG TABLET GT SCH ×2 (08:17→20:25)
[2016-11-07] MEDS: CARBAMAZEPINE 100 MG/5 ML GT SCH ×3 (08:18→16:54)
[2016-11-07] MEDS: LEVETIRACETAM SOL (5 ML) 100 MG/ML UDC GT SCH ×2 (08:18→20:25)
[2016-11-07 08:23] VITALS: BP 123/64
[2016-11-07 19:51] VITALS: BP 102/58
[2016-11-07] MEDS: POLYETHYLENE GLYCOL 3350 17 GM POWD.PACK GT SCH (21:05)
[2016-11-08] MEDS: ALBUTEROL FS 2.5 MG/3 ML VIAL.NEB NEB SCH ×4 (01:20→19:37)
[2016-11-08] MEDS: POLYVINYL ALCOHOL 15 ML BOTTLE EACHEYE SCH ×4 (05:20→23:32)
[2016-11-08] MEDS: CHLORHEXIDINE GLUCONATE 15 ML UDC MM SCH ×2 (05:20→17:52)
[2016-11-08 07:57] VITALS: BP 119/64
[2016-11-08] MEDS: CARBAMAZEPINE 100 MG/5 ML GT SCH ×3 (08:46→17:52)
[2016-11-08] MEDS: Z GUARD REMEDY 4 OZ OINT TP SCH ×2 (08:46→21:17)
[2016-11-08] MEDS: CHOLECALCIFEROL 1,000 UNIT TABLET (VIT D3) GT SCH (08:46)
[2016-11-08] MEDS: HYDROGEN PEROXIDE 480 ML BOTTLE TP SCH ×2 (08:46→21:17)
[2016-11-08] MEDS: LEVETIRACETAM SOL (5 ML) 100 MG/ML UDC GT SCH ×2 (08:46→21:17)
[2016-11-08] MEDS: FOLIC ACID 1 MG TABLET GT SCH ×2 (08:46→17:52)
[2016-11-08] MEDS: BACLOFEN (10 MG) 10 MG TABLET GT SCH ×3 (08:46→17:52)
[2016-11-08] MEDS: SERTRALINE HCL 25 MG TABLET GT SCH (08:46)
[2016-11-08] MEDS: SENNOSIDES 8.6 MG TABLET GT SCH ×2 (08:46→21:17)
[2016-11-08 19:33] VITALS: BP 103/69
[2016-11-08] MEDS: POLYETHYLENE GLYCOL 3350 17 GM POWD.PACK GT SCH (21:17)
[2016-11-09] MEDS: ALBUTEROL FS 2.5 MG/3 ML VIAL.NEB NEB SCH ×4 (01:17→19:34)
[2016-11-09] MEDS: POLYVINYL ALCOHOL 15 ML BOTTLE EACHEYE SCH ×4 (05:23→23:36)
[2016-11-09] MEDS: CHLORHEXIDINE GLUCONATE 15 ML UDC MM SCH ×2 (05:31→17:10)
[2016-11-09 08:08] VITALS: BP 117/72
[2016-11-09] MEDS: Z GUARD REMEDY 4 OZ OINT TP SCH ×2 (09:05→21:06)
[2016-11-09] MEDS: HYDROGEN PEROXIDE 480 ML BOTTLE TP SCH ×2 (09:05→21:06)
[2016-11-09] MEDS: SERTRALINE HCL 25 MG TABLET GT SCH (09:05)
[2016-11-09] MEDS: BACLOFEN (10 MG) 10 MG TABLET GT SCH ×3 (09:05→16:36)
[2016-11-09] MEDS: SENNOSIDES 8.6 MG TABLET GT SCH ×2 (09:05→21:05)
[2016-11-09] MEDS: FOLIC ACID 1 MG TABLET GT SCH ×2 (09:05→16:36)
[2016-11-09] MEDS: CHOLECALCIFEROL 1,000 UNIT TABLET (VIT D3) GT SCH (09:05)
[2016-11-09] MEDS: LEVETIRACETAM SOL (5 ML) 100 MG/ML UDC GT SCH ×2 (09:05→21:05)
[2016-11-09] MEDS: CARBAMAZEPINE 100 MG/5 ML GT SCH ×3 (09:05→16:36)
--- NOTE | 2016-11-09 11:34 | NUR ---
Seen and examined by Dr. Aguilar, with new order given to resume Heparin. Mother present during MD's rounds and aware of the new order. Resident up in wheelchair taken in activity room.
[2016-11-09 19:27] VITALS: BP 100/62
[2016-11-09] MEDS: HEPARIN SODIUM, PORCINE 5000 UNITS/1 ML VIAL SQ SCH (21:05)
[2016-11-09] MEDS: POLYETHYLENE GLYCOL 3350 17 GM POWD.PACK GT SCH (21:06)
[2016-11-10] MEDS: ALBUTEROL FS 2.5 MG/3 ML VIAL.NEB NEB SCH ×4 (02:03→20:23)
[2016-11-10] MEDS: CHLORHEXIDINE GLUCONATE 15 ML UDC MM SCH ×2 (06:12→18:39)
[2016-11-10] MEDS: POLYVINYL ALCOHOL 15 ML BOTTLE EACHEYE SCH ×4 (06:12→23:56)
[2016-11-10 08:30] VITALS: BP 120/74
[2016-11-10] MEDS: FOLIC ACID 1 MG TABLET GT SCH ×2 (08:34→17:00)
[2016-11-10] MEDS: HEPARIN SODIUM, PORCINE 5000 UNITS/1 ML VIAL SQ SCH ×2 (08:34→21:16)
[2016-11-10] MEDS: SENNOSIDES 8.6 MG TABLET GT SCH ×2 (08:34→21:15)
[2016-11-10] MEDS: BACLOFEN (10 MG) 10 MG TABLET GT SCH ×3 (08:34→17:00)
[2016-11-10] MEDS: CARBAMAZEPINE 100 MG/5 ML GT SCH ×3 (08:34→17:00)
[2016-11-10] MEDS: LEVETIRACETAM SOL (5 ML) 100 MG/ML UDC GT SCH ×2 (08:34→21:15)
[2016-11-10] MEDS: CHOLECALCIFEROL 1,000 UNIT TABLET (VIT D3) GT SCH (08:34)
[2016-11-10] MEDS: SERTRALINE HCL 25 MG TABLET GT SCH (08:34)
[2016-11-10] MEDS ORDERED: BOTOX IJ PRN (09:00)
[2016-11-10] MEDS: HYDROGEN PEROXIDE 480 ML BOTTLE TP SCH ×2 (10:45→21:16)
[2016-11-10] MEDS: Z GUARD REMEDY 4 OZ OINT TP SCH ×2 (10:45→21:16)
[2016-11-10 20:05] VITALS: BP 117/56
[2016-11-10] MEDS: POLYETHYLENE GLYCOL 3350 17 GM POWD.PACK GT SCH (21:16)
[2016-11-11] MEDS: ALBUTEROL FS 2.5 MG/3 ML VIAL.NEB NEB SCH ×4 (01:30→19:32)
[2016-11-11] MEDS: CHLORHEXIDINE GLUCONATE 15 ML UDC MM SCH ×2 (05:45→18:23)
[2016-11-11] MEDS: POLYVINYL ALCOHOL 15 ML BOTTLE EACHEYE SCH ×3 (05:45→18:23)
[2016-11-11 08:01] VITALS: BP 133/80
[2016-11-11] MEDS: BACLOFEN (10 MG) 10 MG TABLET GT SCH ×3 (09:07→17:00)
[2016-11-11] MEDS: HEPARIN SODIUM, PORCINE 5000 UNITS/1 ML VIAL SQ SCH ×2 (09:07→20:39)
[2016-11-11] MEDS: SENNOSIDES 8.6 MG TABLET GT SCH ×2 (09:07→20:39)
[2016-11-11] MEDS: LEVETIRACETAM SOL (5 ML) 100 MG/ML UDC GT SCH ×2 (09:07→20:39)
[2016-11-11] MEDS: CHOLECALCIFEROL 1,000 UNIT TABLET (VIT D3) GT SCH (09:07)
[2016-11-11] MEDS: FOLIC ACID 1 MG TABLET GT SCH ×2 (09:07→17:00)
[2016-11-11] MEDS: SERTRALINE HCL 25 MG TABLET GT SCH (09:07)
[2016-11-11] MEDS: CARBAMAZEPINE 100 MG/5 ML GT SCH ×3 (09:07→17:00)
[2016-11-11] MEDS: HYDROGEN PEROXIDE 480 ML BOTTLE TP SCH ×2 (10:30→20:39)
[2016-11-11] MEDS: Z GUARD REMEDY 4 OZ OINT TP SCH ×2 (10:30→20:39)
[2016-11-11 20:03] VITALS: BP 98/50
[2016-11-11] MEDS: POLYETHYLENE GLYCOL 3350 17 GM POWD.PACK GT SCH (21:12)
[2016-11-12] MEDS: ALBUTEROL FS 2.5 MG/3 ML VIAL.NEB NEB SCH ×5 (02:08→20:20)
[2016-11-12] MEDS: CHLORHEXIDINE GLUCONATE 15 ML UDC MM SCH ×2 (05:55→18:25)
[2016-11-12] MEDS: POLYVINYL ALCOHOL 15 ML BOTTLE EACHEYE SCH ×5 (05:55→23:59)
[2016-11-12 07:47] VITALS: BP 122/56
[2016-11-12] MEDS: CARBAMAZEPINE 100 MG/5 ML GT SCH ×3 (08:38→17:00)
[2016-11-12] MEDS: SERTRALINE HCL 25 MG TABLET GT SCH (08:38)
[2016-11-12] MEDS: CHOLECALCIFEROL 1,000 UNIT TABLET (VIT D3) GT SCH (08:38)
[2016-11-12] MEDS: FOLIC ACID 1 MG TABLET GT SCH ×2 (08:38→17:00)
[2016-11-12] MEDS: LEVETIRACETAM SOL (5 ML) 100 MG/ML UDC GT SCH ×2 (08:38→21:06)
[2016-11-12] MEDS: SENNOSIDES 8.6 MG TABLET GT SCH ×2 (08:38→21:06)
[2016-11-12] MEDS: BACLOFEN (10 MG) 10 MG TABLET GT SCH ×3 (08:38→17:00)
[2016-11-12] MEDS: HYDROGEN PEROXIDE 480 ML BOTTLE TP SCH ×2 (08:39→21:07)
[2016-11-12] MEDS: HEPARIN SODIUM, PORCINE 5000 UNITS/1 ML VIAL SQ SCH ×2 (08:39→21:06)
[2016-11-12] MEDS: Z GUARD REMEDY 4 OZ OINT TP SCH ×2 (08:39→21:07)
--- NOTE | 2016-11-12 13:30 | NUR ---
Resident with slight redness in the right forearm due to irritation from arm band. Arm band removed and replaced it with new loosely fitting arm band. Mother aware.
[2016-11-12 20:00] VITALS: BP 116/67
[2016-11-12] MEDS: POLYETHYLENE GLYCOL 3350 17 GM POWD.PACK GT SCH (21:07)
[2016-11-13] MEDS: ALBUTEROL FS 2.5 MG/3 ML VIAL.NEB NEB SCH ×5 (02:08→21:03)
[2016-11-13] MEDS: POLYVINYL ALCOHOL 15 ML BOTTLE EACHEYE SCH ×3 (05:31→18:12)
[2016-11-13] MEDS: CHLORHEXIDINE GLUCONATE 15 ML UDC MM SCH ×2 (05:31→18:12)
--- NOTE | 2016-11-13 06:47 | NUR ---
Pt noted with strong urine during the night,good perineal care rendered,afebrile.Mother made aware.Will continue to monitor.
[2016-11-13 07:59] VITALS: BP 117/61
[2016-11-13] MEDS: SENNOSIDES 8.6 MG TABLET GT SCH ×2 (08:44→21:22)
[2016-11-13] MEDS: BACLOFEN (10 MG) 10 MG TABLET GT SCH ×3 (08:44→16:59)
[2016-11-13] MEDS: CARBAMAZEPINE 100 MG/5 ML GT SCH ×3 (08:44→16:59)
[2016-11-13] MEDS: CHOLECALCIFEROL 1,000 UNIT TABLET (VIT D3) GT SCH (08:44)
[2016-11-13] MEDS: LEVETIRACETAM SOL (5 ML) 100 MG/ML UDC GT SCH ×2 (08:44→21:22)
[2016-11-13] MEDS: FOLIC ACID 1 MG TABLET GT SCH ×2 (08:44→16:59)
[2016-11-13] MEDS: SERTRALINE HCL 25 MG TABLET GT SCH (08:44)
[2016-11-13] MEDS: HEPARIN SODIUM, PORCINE 5000 UNITS/1 ML VIAL SQ SCH ×2 (08:45→21:22)
[2016-11-13] MEDS: Z GUARD REMEDY 4 OZ OINT TP SCH ×2 (10:30→21:22)
[2016-11-13] MEDS: HYDROGEN PEROXIDE 480 ML BOTTLE TP SCH ×2 (10:30→21:22)
--- NOTE | 2016-11-13 15:00 | NUR ---
Seen by Sugar Spangler NP with no new order.
--- NOTE | 2016-11-13 15:00 | NUR ---
Seen by Dr Aguilar informed of pt strong urine odor per MD order water flushing of 540cc q 6 hrs for 7 days then resume water flushing of 360cc of water q 6 hrs on 11/21/16 order noted and carried out.Resident and mother made aware.
--- NOTE | 2016-11-13 16:14 | NUR ---
Noted with scattered redness on the left side of the nose no bleeding,no swelling noted no c/o of pain.Dr Aguilar made aware with order to apply A & D ointment to left side nose redness daily for 7 days.Resident mother aware.
[2016-11-13 19:25] VITALS: BP 105/73
[2016-11-13] MEDS: POLYETHYLENE GLYCOL 3350 17 GM POWD.PACK GT SCH (21:22)
[2016-11-14] MEDS: POLYVINYL ALCOHOL 15 ML BOTTLE EACHEYE SCH ×4 (00:40→18:10)
[2016-11-14] MEDS: ALBUTEROL FS 2.5 MG/3 ML VIAL.NEB NEB SCH ×4 (01:59→19:56)
[2016-11-14] MEDS: CHLORHEXIDINE GLUCONATE 15 ML UDC MM SCH ×2 (05:33→18:10)
[2016-11-14 07:51] VITALS: BP 123/66
[2016-11-14] MEDS: CHOLECALCIFEROL 1,000 UNIT TABLET (VIT D3) GT SCH (08:29)
[2016-11-14] MEDS: BACLOFEN (10 MG) 10 MG TABLET GT SCH ×3 (08:29→17:00)
[2016-11-14] MEDS: CARBAMAZEPINE 100 MG/5 ML GT SCH ×3 (08:29→17:00)
[2016-11-14] MEDS: SENNOSIDES 8.6 MG TABLET GT SCH ×2 (08:29→21:24)
[2016-11-14] MEDS: FOLIC ACID 1 MG TABLET GT SCH ×2 (08:29→17:00)
[2016-11-14] MEDS: SERTRALINE HCL 25 MG TABLET GT SCH (08:29)
[2016-11-14] MEDS: LEVETIRACETAM SOL (5 ML) 100 MG/ML UDC GT SCH ×2 (08:29→21:24)
[2016-11-14] MEDS: HEPARIN SODIUM, PORCINE 5000 UNITS/1 ML VIAL SQ SCH ×2 (08:30→21:24)
[2016-11-14] MEDS: Z GUARD REMEDY 4 OZ OINT TP SCH ×2 (08:31→21:27)
[2016-11-14] MEDS: VITAMINS A AND D 56.7 GM TUBE TP SCH (08:31)
[2016-11-14] MEDS: HYDROGEN PEROXIDE 480 ML BOTTLE TP SCH ×2 (08:31→21:26)
--- NOTE | 2016-11-14 14:05 | NUR ---
INTERDISCIPLINARY PLAN OF CARE CONFERENCE was held today. Resident's family did not attend. Dr. Lubin and the interdisciplinary team reviewed the current plan of care in detail. Pharmacy will ask Dr. Aguilar regarding checking patient's vitamin D levels and Tegretol levels. No other changes were noted.
[2016-11-14 19:22] VITALS: BP 106/74
[2016-11-14] MEDS: POLYETHYLENE GLYCOL 3350 17 GM POWD.PACK GT SCH (21:27)
[2016-11-15] MEDS: POLYVINYL ALCOHOL 15 ML BOTTLE EACHEYE SCH ×5 (00:23→23:01)
[2016-11-15] MEDS: ALBUTEROL FS 2.5 MG/3 ML VIAL.NEB NEB SCH ×4 (01:42→19:10)
[2016-11-15] MEDS: CHLORHEXIDINE GLUCONATE 15 ML UDC MM SCH ×2 (05:45→18:04)
[2016-11-15 08:00] VITALS: BP 162/92
[2016-11-15] MEDS: LEVETIRACETAM SOL (5 ML) 100 MG/ML UDC GT SCH ×2 (08:30→21:01)
[2016-11-15] MEDS: BACLOFEN (10 MG) 10 MG TABLET GT SCH ×3 (08:30→17:00)
[2016-11-15] MEDS: SENNOSIDES 8.6 MG TABLET GT SCH ×2 (08:30→21:01)
[2016-11-15] MEDS: FOLIC ACID 1 MG TABLET GT SCH ×2 (08:30→17:00)
[2016-11-15] MEDS: CHOLECALCIFEROL 1,000 UNIT TABLET (VIT D3) GT SCH (08:30)
[2016-11-15] MEDS: SERTRALINE HCL 25 MG TABLET GT SCH (08:30)
[2016-11-15] MEDS: CARBAMAZEPINE 100 MG/5 ML GT SCH ×3 (08:30→17:00)
[2016-11-15] MEDS: HYDROGEN PEROXIDE 480 ML BOTTLE TP SCH ×2 (08:31→21:01)
[2016-11-15] MEDS: Z GUARD REMEDY 4 OZ OINT TP SCH ×2 (08:31→21:01)
[2016-11-15] MEDS: VITAMINS A AND D 56.7 GM TUBE TP SCH (08:31)
[2016-11-15] MEDS: HEPARIN SODIUM, PORCINE 5000 UNITS/1 ML VIAL SQ SCH ×2 (08:31→21:01)
--- NOTE | 2016-11-15 15:09 | NUR ---
Seen and examined by Dr. Aguilar no new order given.
[2016-11-15 19:40] VITALS: BP 136/89
[2016-11-15] MEDS: POLYETHYLENE GLYCOL 3350 17 GM POWD.PACK GT SCH (21:01)
[2016-11-16] MEDS: ALBUTEROL FS 2.5 MG/3 ML VIAL.NEB NEB SCH ×4 (00:46→19:30)
[2016-11-16] MEDS: CHLORHEXIDINE GLUCONATE 15 ML UDC MM SCH ×2 (05:46→18:14)
[2016-11-16] MEDS: POLYVINYL ALCOHOL 15 ML BOTTLE EACHEYE SCH ×3 (05:46→18:14)
[2016-11-16 08:22] VITALS: BP 106/68
[2016-11-16] MEDS: LEVETIRACETAM SOL (5 ML) 100 MG/ML UDC GT SCH ×2 (09:26→20:32)
[2016-11-16] MEDS: FOLIC ACID 1 MG TABLET GT SCH ×2 (09:26→16:07)
[2016-11-16] MEDS: HYDROGEN PEROXIDE 480 ML BOTTLE TP SCH ×2 (09:26→20:34)
[2016-11-16] MEDS: BACLOFEN (10 MG) 10 MG TABLET GT SCH ×3 (09:26→16:07)
[2016-11-16] MEDS: CHOLECALCIFEROL 1,000 UNIT TABLET (VIT D3) GT SCH (09:26)
[2016-11-16] MEDS: SERTRALINE HCL 25 MG TABLET GT SCH (09:26)
[2016-11-16] MEDS: CARBAMAZEPINE 100 MG/5 ML GT SCH ×3 (09:26→16:07)
[2016-11-16] MEDS: SENNOSIDES 8.6 MG TABLET GT SCH ×2 (09:26→20:32)
[2016-11-16] MEDS: Z GUARD REMEDY 4 OZ OINT TP SCH ×2 (09:27→20:34)
[2016-11-16] MEDS: VITAMINS A AND D 56.7 GM TUBE TP SCH (09:27)
[2016-11-16] MEDS: HEPARIN SODIUM, PORCINE 5000 UNITS/1 ML VIAL SQ SCH ×2 (09:28→20:34)
[2016-11-16 19:55] VITALS: BP 111/68
[2016-11-16] MEDS: POLYETHYLENE GLYCOL 3350 17 GM POWD.PACK GT SCH (22:00)
[2016-11-17] MEDS: POLYVINYL ALCOHOL 15 ML BOTTLE EACHEYE SCH ×5 (00:05→23:27)
[2016-11-17] MEDS: ALBUTEROL FS 2.5 MG/3 ML VIAL.NEB NEB SCH ×4 (02:17→19:33)
[2016-11-17] MEDS: CHLORHEXIDINE GLUCONATE 15 ML UDC MM SCH ×2 (05:54→17:05)
[2016-11-17 08:34] VITALS: BP 144/68
[2016-11-17] MEDS: HEPARIN SODIUM, PORCINE 5000 UNITS/1 ML VIAL SQ SCH ×2 (08:35→21:04)
[2016-11-17] MEDS: CARBAMAZEPINE 100 MG/5 ML GT SCH ×3 (08:35→17:05)
[2016-11-17] MEDS: LEVETIRACETAM SOL (5 ML) 100 MG/ML UDC GT SCH ×2 (08:35→21:03)
[2016-11-17] MEDS: HYDROGEN PEROXIDE 480 ML BOTTLE TP SCH ×2 (08:35→21:04)
[2016-11-17] MEDS: CHOLECALCIFEROL 1,000 UNIT TABLET (VIT D3) GT SCH (08:35)
[2016-11-17] MEDS: FOLIC ACID 1 MG TABLET GT SCH ×2 (08:35→17:05)
[2016-11-17] MEDS: BACLOFEN (10 MG) 10 MG TABLET GT SCH ×3 (08:35→17:05)
[2016-11-17] MEDS: Z GUARD REMEDY 4 OZ OINT TP SCH ×2 (08:35→21:04)
[2016-11-17] MEDS: SENNOSIDES 8.6 MG TABLET GT SCH ×2 (08:35→21:03)
[2016-11-17] MEDS: SERTRALINE HCL 25 MG TABLET GT SCH (08:35)
[2016-11-17] MEDS: VITAMINS A AND D 56.7 GM TUBE TP SCH (08:36)
--- NOTE | 2016-11-17 13:09 | NUR ---
Resident's mother spoke to SW. She stated that because her assigned RNA is on vacation, there is no one to provide the ROM exercises to her daughter. She said stated that current RNA is unable to do the exercises due to not being able to provide full coverage to all resident's. She also stated that someone came by to put the brace on her dtr (she said it was someone from OT or PT but I checked with PT/OT director and resident was not on either of their schedules) but that they did not do it correctly and just left it there. She asked for someone different to come and fix the brace. Informed charge nurse about the problem.
--- NOTE | 2016-11-17 16:00 | NUR ---
Dr. Aguilar came and visited patient. patients' mom at bedside and verbalized concerned regarding braces and range of motion. DR. Aguilar explained PT from hospital can't do it in subacute. Explained RNA FROM SUBACUTE will provide range of motion, patients' MOM agreed and stated " THANK YOU". Dr. Aguilar made aware of pharmacy rec of Vit D LEVEL and Tegretol level, HE only ordered to do tegretol level huang in am (11/18). Noted and carried out.
[2016-11-17 20:04] VITALS: BP 111/58
[2016-11-17] MEDS: POLYETHYLENE GLYCOL 3350 17 GM POWD.PACK GT SCH (21:04)
[2016-11-18] MEDS: ALBUTEROL FS 2.5 MG/3 ML VIAL.NEB NEB SCH ×4 (01:09→19:30)
[2016-11-18] MEDS: CHLORHEXIDINE GLUCONATE 15 ML UDC MM SCH ×2 (05:32→17:48)
[2016-11-18] MEDS: POLYVINYL ALCOHOL 15 ML BOTTLE EACHEYE SCH ×3 (05:32→17:48)
[2016-11-18 07:45] VITALS: BP 125/78
[2016-11-18] MEDS: LEVETIRACETAM SOL (5 ML) 100 MG/ML UDC GT SCH ×2 (08:56→20:31)
[2016-11-18] MEDS: SENNOSIDES 8.6 MG TABLET GT SCH ×2 (08:56→20:31)
[2016-11-18] MEDS: CHOLECALCIFEROL 1,000 UNIT TABLET (VIT D3) GT SCH (08:56)
[2016-11-18] MEDS: CARBAMAZEPINE 100 MG/5 ML GT SCH ×3 (08:56→17:48)
[2016-11-18] MEDS: FOLIC ACID 1 MG TABLET GT SCH ×2 (08:56→17:48)
[2016-11-18] MEDS: SERTRALINE HCL 25 MG TABLET GT SCH (08:56)
[2016-11-18] MEDS: BACLOFEN (10 MG) 10 MG TABLET GT SCH ×3 (08:56→17:48)
[2016-11-18] MEDS: HEPARIN SODIUM, PORCINE 5000 UNITS/1 ML VIAL SQ SCH ×2 (08:57→20:32)
[2016-11-18] MEDS: HYDROGEN PEROXIDE 480 ML BOTTLE TP SCH ×2 (08:57→20:32)
[2016-11-18] MEDS: VITAMINS A AND D 56.7 GM TUBE TP SCH (08:57)
[2016-11-18] MEDS: Z GUARD REMEDY 4 OZ OINT TP SCH ×2 (08:57→20:32)
--- NOTE | 2016-11-18 09:40 | NUR ---
Seen and examined by Dr Lubin reviewed Tegretol level with no new order.
[2016-11-18 19:57] VITALS: BP 107/65
[2016-11-18] MEDS: POLYETHYLENE GLYCOL 3350 17 GM POWD.PACK GT SCH (21:30)
[2016-11-19] MEDS: POLYVINYL ALCOHOL 15 ML BOTTLE EACHEYE SCH ×4 (00:43→17:36)
[2016-11-19] MEDS: ALBUTEROL FS 2.5 MG/3 ML VIAL.NEB NEB SCH ×4 (02:15→19:33)
[2016-11-19] MEDS: CHLORHEXIDINE GLUCONATE 15 ML UDC MM SCH ×2 (06:09→17:36)
[2016-11-19 08:10] VITALS: BP 131/64
[2016-11-19] MEDS: SERTRALINE HCL 25 MG TABLET GT SCH (08:43)
[2016-11-19] MEDS: SENNOSIDES 8.6 MG TABLET GT SCH ×2 (08:43→21:12)
[2016-11-19] MEDS: HEPARIN SODIUM, PORCINE 5000 UNITS/1 ML VIAL SQ SCH ×2 (08:43→21:12)
[2016-11-19] MEDS: FOLIC ACID 1 MG TABLET GT SCH ×2 (08:43→17:36)
[2016-11-19] MEDS: CARBAMAZEPINE 100 MG/5 ML GT SCH ×3 (08:43→17:36)
[2016-11-19] MEDS: HYDROGEN PEROXIDE 480 ML BOTTLE TP SCH ×2 (08:43→21:12)
[2016-11-19] MEDS: LEVETIRACETAM SOL (5 ML) 100 MG/ML UDC GT SCH ×2 (08:43→21:12)
[2016-11-19] MEDS: BACLOFEN (10 MG) 10 MG TABLET GT SCH ×3 (08:43→17:36)
[2016-11-19] MEDS: CHOLECALCIFEROL 1,000 UNIT TABLET (VIT D3) GT SCH (08:43)
[2016-11-19] MEDS: Z GUARD REMEDY 4 OZ OINT TP SCH ×2 (08:44→21:12)
[2016-11-19] MEDS: VITAMINS A AND D 56.7 GM TUBE TP SCH (08:44)
--- NOTE | 2016-11-19 12:12 | NUR ---
Resident's mother attended family support group today and concerns related to care were explored. Resident's mother was vocal and participated during the group meeting. Concerns to be addressed with registered nursing professor Sultana King.
--- NOTE | 2016-11-19 12:40 | NUR ---
Seen and examined by Dr. Aguilar, no new order given.
--- NOTE | 2016-11-19 17:50 | NUR ---
Seen and examined by Sugar Spangler NP for Dr. Lubin, academic support coordinator, NNO given.
[2016-11-19 20:11] VITALS: BP 104/61
[2016-11-19] MEDS: POLYETHYLENE GLYCOL 3350 17 GM POWD.PACK GT SCH (21:12)
[2016-11-20] MEDS: POLYVINYL ALCOHOL 15 ML BOTTLE EACHEYE SCH ×4 (00:16→17:06)
[2016-11-20] MEDS: ALBUTEROL FS 2.5 MG/3 ML VIAL.NEB NEB SCH ×4 (00:49→20:04)
[2016-11-20] MEDS: CHLORHEXIDINE GLUCONATE 15 ML UDC MM SCH ×2 (06:00→17:06)
[2016-11-20] MEDS: CHOLECALCIFEROL 1,000 UNIT TABLET (VIT D3) GT SCH (08:58)
[2016-11-20] MEDS: SERTRALINE HCL 25 MG TABLET GT SCH (08:58)
[2016-11-20] MEDS: FOLIC ACID 1 MG TABLET GT SCH ×2 (08:58→17:06)
[2016-11-20] MEDS: SENNOSIDES 8.6 MG TABLET GT SCH ×2 (08:58→21:46)
[2016-11-20] MEDS: BACLOFEN (10 MG) 10 MG TABLET GT SCH ×3 (08:58→17:06)
[2016-11-20] MEDS: LEVETIRACETAM SOL (5 ML) 100 MG/ML UDC GT SCH ×2 (08:58→21:46)
[2016-11-20] MEDS: CARBAMAZEPINE 100 MG/5 ML GT SCH ×3 (08:58→17:06)
[2016-11-20] MEDS: HYDROGEN PEROXIDE 480 ML BOTTLE TP SCH ×2 (08:59→21:47)
[2016-11-20] MEDS: Z GUARD REMEDY 4 OZ OINT TP SCH ×2 (08:59→21:47)
[2016-11-20] MEDS: HEPARIN SODIUM, PORCINE 5000 UNITS/1 ML VIAL SQ SCH ×2 (08:59→21:46)
[2016-11-20 20:15] VITALS: BP 113/70
[2016-11-20] MEDS: POLYETHYLENE GLYCOL 3350 17 GM POWD.PACK GT SCH (21:47)
[2016-11-21] MEDS: POLYVINYL ALCOHOL 15 ML BOTTLE EACHEYE SCH ×5 (00:54→23:57)
[2016-11-21] MEDS: ALBUTEROL FS 2.5 MG/3 ML VIAL.NEB NEB SCH ×4 (01:42→19:30)
[2016-11-21] MEDS: CHLORHEXIDINE GLUCONATE 15 ML UDC MM SCH ×2 (06:23→17:02)
[2016-11-21 07:40] VITALS: BP 118/61
[2016-11-21 07:52] VITALS: BP 137/81
--- NOTE | 2016-11-21 07:59 | NUR ---
Resident's mother stated that she is not happy with being assigned a male floater HEALTH AND SAFETY INSPECTOR. Night staff also stated that it appears that resident's mother puts water in the diaper so that they will come right away. Concerns were relayed to nursing staff development coordinator Sultana King who will speak to resident's mother.
[2016-11-21] MEDS: CARBAMAZEPINE 100 MG/5 ML GT SCH ×3 (08:39→17:02)
[2016-11-21] MEDS: SERTRALINE HCL 25 MG TABLET GT SCH (08:39)
[2016-11-21] MEDS: SENNOSIDES 8.6 MG TABLET GT SCH ×2 (08:39→21:29)
[2016-11-21] MEDS: LEVETIRACETAM SOL (5 ML) 100 MG/ML UDC GT SCH ×2 (08:39→21:29)
[2016-11-21] MEDS: CHOLECALCIFEROL 1,000 UNIT TABLET (VIT D3) GT SCH (08:39)
[2016-11-21] MEDS: BACLOFEN (10 MG) 10 MG TABLET GT SCH ×3 (08:39→17:02)
[2016-11-21] MEDS: FOLIC ACID 1 MG TABLET GT SCH ×2 (08:39→17:02)
[2016-11-21] MEDS: HYDROGEN PEROXIDE 480 ML BOTTLE TP SCH ×2 (08:40→21:29)
[2016-11-21] MEDS: HEPARIN SODIUM, PORCINE 5000 UNITS/1 ML VIAL SQ SCH ×2 (08:40→21:29)
[2016-11-21] MEDS: Z GUARD REMEDY 4 OZ OINT TP SCH ×2 (08:40→21:29)
--- NOTE | 2016-11-21 17:00 | NUR ---
Left a message to Dr. Aguilar, patient with low grade temp 100.1, B/P 136/78, 93 99%, 18. Cooling measures initiated awaiting for MD to call back for orders. Endorsed to incoming shift to monitor LISA.
--- NOTE | 2016-11-21 19:50 | NUR ---
Pt with fever of 101.5,HR 91 BP 115/50 ,no respiratory distress noted,pt awake.Cooling measures given and Tylenol given via gt as ordered.Left message to information systems consultant for orders awaiting for call back.Will continue to monitor.
[2016-11-21] MEDS: ACETAMINOPHEN 650 MG/20.3 ML UDC GT PRN (19:59)
[2016-11-21 20:00] VITALS: BP 115/50
--- NOTE | 2016-11-21 21:00 | NUR ---
Pt temp re checked 99.2,continue cooling measures,pt sleeping,no distress noted.Will continue to monitor.
[2016-11-21] MEDS: POLYETHYLENE GLYCOL 3350 17 GM POWD.PACK GT SCH (21:29)
[2016-11-22] MEDS: ALBUTEROL FS 2.5 MG/3 ML VIAL.NEB NEB SCH ×4 (01:24→18:57)
[2016-11-22] MEDS: POLYVINYL ALCOHOL 15 ML BOTTLE EACHEYE SCH ×3 (06:02→17:56)
[2016-11-22] MEDS: CHLORHEXIDINE GLUCONATE 15 ML UDC MM SCH ×2 (06:02→17:56)
--- NOTE | 2016-11-22 06:12 | NUR ---
Patient latest temp 99.0,continue cooling measures.No distress noted,Mother at bedside and told will continue to monitor pt closely.All needs attended.
[2016-11-22 07:33] VITALS: BP 113/55
[2016-11-22] MEDS: FOLIC ACID 1 MG TABLET GT SCH ×2 (08:50→16:56)
[2016-11-22] MEDS: BACLOFEN (10 MG) 10 MG TABLET GT SCH ×3 (08:51→16:56)
[2016-11-22] MEDS: LEVETIRACETAM SOL (5 ML) 100 MG/ML UDC GT SCH ×2 (08:51→21:28)
[2016-11-22] MEDS: HEPARIN SODIUM, PORCINE 5000 UNITS/1 ML VIAL SQ SCH ×2 (08:51→21:28)
[2016-11-22] MEDS: SERTRALINE HCL 25 MG TABLET GT SCH (08:51)
[2016-11-22] MEDS: CARBAMAZEPINE 100 MG/5 ML GT SCH ×3 (08:51→16:56)
[2016-11-22] MEDS: CHLORHEXIDINE GLUCONATE 4% 118 ML BOTTLE TP SCH (08:51)
[2016-11-22] MEDS: SENNOSIDES 8.6 MG TABLET GT SCH ×2 (08:51→21:28)
[2016-11-22] MEDS: CHOLECALCIFEROL 1,000 UNIT TABLET (VIT D3) GT SCH (08:51)
[2016-11-22] MEDS: HYDROGEN PEROXIDE 480 ML BOTTLE TP SCH ×2 (08:52→21:28)
[2016-11-22] MEDS: Z GUARD REMEDY 4 OZ OINT TP SCH ×2 (08:52→21:28)
--- NOTE | 2016-11-22 11:18 | NUR ---
Notified Dr. Aguilar of resident's low grade temp 99.3, 114/73, 96,18 99%. Mother who is at bedside and father who called on the phone both expressed concern about patient's condition. Assured Dr. Swift & mother that MD was notified but awaiting for response. Meanwhile cooling measures initiated.
[2016-11-22 12:30] VITALS: BP 114/73
--- NOTE | 2016-11-22 12:35 | NUR ---
Dr. Aguilar seen and assessed patient, mother at bedside and aware of patient's low grade temp. NNO given at this time.
[2016-11-22 19:56] VITALS: BP 111/64
[2016-11-22] MEDS: ACETAMINOPHEN 650 MG/20.3 ML UDC GT PRN (20:15)
--- NOTE | 2016-11-22 20:15 | NUR ---
Noted patient with temp of 101.2. BP 111/64. No signs of respiratory distress noted. Cooling measure initiated and PRN Tylenol 650 mg given via GT. Charge nurse made aware. Will closely monitor.
[2016-11-22] MEDS: POLYETHYLENE GLYCOL 3350 17 GM POWD.PACK GT SCH (21:28)
[2016-11-23] MEDS: POLYVINYL ALCOHOL 15 ML BOTTLE EACHEYE SCH ×5 (00:48→23:16)
[2016-11-23] MEDS: ALBUTEROL FS 2.5 MG/3 ML VIAL.NEB NEB SCH ×4 (01:07→19:30)
[2016-11-23] MEDS: CHLORHEXIDINE GLUCONATE 15 ML UDC MM SCH ×2 (05:39→17:40)
--- NOTE | 2016-11-23 06:51 | NUR ---
Patient remained in low grade temp of 99.5 during shift. Continue on cooling measure and kept patient comfortable. Last temp checked at 0630 with 98.8. Will closely monitor.
[2016-11-23 07:51] VITALS: BP 119/73
[2016-11-23] MEDS: CHOLECALCIFEROL 1,000 UNIT TABLET (VIT D3) GT SCH (08:41)
[2016-11-23] MEDS: LEVETIRACETAM SOL (5 ML) 100 MG/ML UDC GT SCH ×2 (08:41→20:29)
[2016-11-23] MEDS: SENNOSIDES 8.6 MG TABLET GT SCH ×2 (08:41→20:30)
[2016-11-23] MEDS: CARBAMAZEPINE 100 MG/5 ML GT SCH ×3 (08:41→17:20)
[2016-11-23] MEDS: BACLOFEN (10 MG) 10 MG TABLET GT SCH ×3 (08:41→17:20)
[2016-11-23] MEDS: FOLIC ACID 1 MG TABLET GT SCH ×2 (08:41→17:20)
[2016-11-23] MEDS: SERTRALINE HCL 25 MG TABLET GT SCH (08:41)
[2016-11-23] MEDS: Z GUARD REMEDY 4 OZ OINT TP SCH ×2 (08:42→20:32)
[2016-11-23] MEDS: CHLORHEXIDINE GLUCONATE 4% 118 ML BOTTLE TP SCH (08:42)
[2016-11-23] MEDS: HYDROGEN PEROXIDE 480 ML BOTTLE TP SCH ×2 (08:42→20:31)
[2016-11-23] MEDS: HEPARIN SODIUM, PORCINE 5000 UNITS/1 ML VIAL SQ SCH ×2 (09:00→20:30)
--- NOTE | 2016-11-23 11:54 | NUR ---
Seen and examined by Dr. Aguilar with new order of CBC and BMP in am 11/24/16 orders noted and carried out. RP at bedside made aware of the new orders.
[2016-11-23] MEDS: ACETAMINOPHEN 650 MG/20.3 ML UDC GT PRN (12:00)
[2016-11-23 20:07] VITALS: BP 137/77
--- NOTE | 2016-11-23 21:05 | NUR ---
Pt was indorsed by the morning shift that pt is having low grade fever all day , pt temp was sindi by the evening shift @ around 1930, it is 100.2 degrees, cooling measure was started right away and pt is monitored for elevated temp.
[2016-11-23] MEDS: POLYETHYLENE GLYCOL 3350 17 GM POWD.PACK GT SCH (21:11)
[2016-11-24] MEDS: ALBUTEROL FS 2.5 MG/3 ML VIAL.NEB NEB SCH ×4 (01:30→20:14)
[2016-11-24] MEDS: CHLORHEXIDINE GLUCONATE 15 ML UDC MM SCH ×2 (05:38→17:57)
[2016-11-24] MEDS: POLYVINYL ALCOHOL 15 ML BOTTLE EACHEYE SCH ×3 (05:38→17:57)
[2016-11-24 06:47] LABS: BASOPHILS % (AUTO) 0.3 % (0.0-2.0); HEMATOCRIT 37 % (33-45); HEMOGLOBIN 12.3 g/dL (11.5-14.8); LYMPHOCYTES # (AUTO) 1.5 /CMM (0.8-4.8); LYMPHOCYTES % (AUTO) 19.2 % (20.0-44.0); MEAN CORPUSCULAR HEMOGLOBIN 32 PG (26.0-33.0); MEAN CORPUSCULAR HGB CONC 34 g/dl (31.0-36.0); MEAN CORPUSCULAR VOLUME 95 fL (82-100); MONOCYTES # (AUTO) 1.2 /CMM (0.1-1.30); MONOCYTES % (AUTO) 15.9 % (2.0-12.0); NEUTROPHILS # (AUTO) 4.9 /CMM (1.8-8.9); NEUTROPHILS % (AUTO) 64.6 % (43.0-81.0); PLATELET COUNT (AUTO) 227 /CMM (150-450); RDW COEFFICIENT OF VARIATION 12.9 (11.5-15.0); RED BLOOD CELL COUNT(AUTO) 3.88 MIL/uL (4.0-5.2); WHITE BLOOD COUNT (AUTO) 7.6 K/uL (4.3-11.0)
[2016-11-24 07:05] LABS: CALCIUM, SERUM 8.7 mg/dL (8.5-10.1); CREATININE 0.6 mg/dL (0.6-1.3); POTASSIUM 3.9 mmol/L (3.5-5.1)
[2016-11-24 07:20] LABS: BAND % (MANUAL) 4 % (0.0-5.0); LYMPHOCYTES % (MANUAL) 9 % (16-48); MONOCYTES % (MANUAL) 8 % (0-11.0); NEUTROPHILS % (MANUAL) 79 (42-76)
[2016-11-24 08:25] VITALS: BP 117/67
[2016-11-24] MEDS: LEVETIRACETAM SOL (5 ML) 100 MG/ML UDC GT SCH ×2 (08:54→20:37)
[2016-11-24] MEDS: FOLIC ACID 1 MG TABLET GT SCH ×2 (08:54→17:57)
[2016-11-24] MEDS: CARBAMAZEPINE 100 MG/5 ML GT SCH ×3 (08:55→17:57)
[2016-11-24] MEDS: SENNOSIDES 8.6 MG TABLET GT SCH ×2 (08:55→20:37)
[2016-11-24] MEDS: BACLOFEN (10 MG) 10 MG TABLET GT SCH ×3 (08:55→17:57)
[2016-11-24] MEDS: HEPARIN SODIUM, PORCINE 5000 UNITS/1 ML VIAL SQ SCH ×2 (08:55→20:38)
[2016-11-24] MEDS: SERTRALINE HCL 25 MG TABLET GT SCH (08:55)
[2016-11-24] MEDS: HYDROGEN PEROXIDE 480 ML BOTTLE TP SCH ×2 (08:55→20:38)
[2016-11-24] MEDS: CHOLECALCIFEROL 1,000 UNIT TABLET (VIT D3) GT SCH (08:55)
[2016-11-24] MEDS: Z GUARD REMEDY 4 OZ OINT TP SCH ×2 (08:56→20:38)
--- NOTE | 2016-11-24 16:46 | NUR ---
Patient shivering, temp is 101.3, called and left message to office of Dr. Aguilar, he will be paged. Provided cooling measures. Patient continues to shiver at this time, B/P 163/95, HR 108. Her mother at bedside. Waiting for call back of DR. Aguilar. Patient closely monitored.
--- NOTE | 2016-11-24 17:00 | NUR ---
Dr. Aguilar called back, he stated ' I ordered everything, i saw labs CBC, blood culture, i need the UA C and S I ordered yesterday". Called lab, no specimen (UA C and S) in the lab sent yesterday> Obtained UA C and S, patient incontinent, straight cath done, specimen sent to lab. Per Dr. Aguilar he is not giving any orders today.
[2016-11-24 18:51] LABS: APPEARANCE,URINE TURBID (CLEAR); BILIRUBIN,URINE NEGATIVE (NEGATIVE); BLOOD, URINE 3+ Ery/uL (NEGATIVE); COLOR,URINE YELLOW (YELLOW); KETONES,URINE NEGATIVE (NEGATIVE); LEUKOCYTE ESTERASE ,URINE 3+ (NEGATIVE); NITRITE, URINE POSITIVE (NEGATIVE); PH,URINE 6.5 (5.0-8.0); PROTEIN,URINE TRACE mg/dl (NEGATIVE); UGLUCOSE NEGATIVE (NEGATIVE); UROBILINOGEN,URINE 0.2 EU/dL (0.2)
[2016-11-24 18:54] LABS: BACTERIA,URINE Many /HPF (None Seen); SQUAMOUS EPITHELIAL CELL,UR Rare /HPF (None Seen); WBC,URINE TOO NUMEROUS TO COUN /HPF (0-3)
[2016-11-24] MEDS: ACETAMINOPHEN 650 MG/20.3 ML UDC GT PRN (19:08)
[2016-11-24 20:13] VITALS: BP 109/55
[2016-11-24] MEDS: POLYETHYLENE GLYCOL 3350 17 GM POWD.PACK GT SCH (22:23)
[2016-11-25] MEDS: POLYVINYL ALCOHOL 15 ML BOTTLE EACHEYE SCH ×5 (00:10→23:56)
[2016-11-25] MEDS: ALBUTEROL FS 2.5 MG/3 ML VIAL.NEB NEB SCH ×4 (02:17→20:27)
[2016-11-25] MEDS: CHLORHEXIDINE GLUCONATE 15 ML UDC MM SCH ×2 (05:23→17:34)
--- NOTE | 2016-11-25 06:05 | NUR ---
pt was indorsed yesterday by morning shift that pt has a 103 temp @5pm, tyl 650mg was given, @1930 pts temp was ck, pt still got a low grade fever of 100.6, cooling measure continued,and pt is monitored all night, @ 0600 pt temp was re ck again and it was 98.6, indorsed to morning shift to keep monitoring the temp.
[2016-11-25 08:19] VITALS: BP 118/69
[2016-11-25] MEDS: SENNOSIDES 8.6 MG TABLET GT SCH ×2 (08:54→20:44)
[2016-11-25] MEDS: CHOLECALCIFEROL 1,000 UNIT TABLET (VIT D3) GT SCH (08:54)
[2016-11-25] MEDS: FOLIC ACID 1 MG TABLET GT SCH ×2 (08:54→17:34)
[2016-11-25] MEDS: BACLOFEN (10 MG) 10 MG TABLET GT SCH ×3 (08:54→17:34)
[2016-11-25] MEDS: LEVETIRACETAM SOL (5 ML) 100 MG/ML UDC GT SCH ×2 (08:54→20:44)
[2016-11-25] MEDS: CARBAMAZEPINE 100 MG/5 ML GT SCH ×3 (08:54→17:34)
[2016-11-25] MEDS: SERTRALINE HCL 25 MG TABLET GT SCH (08:54)
[2016-11-25] MEDS: HYDROGEN PEROXIDE 480 ML BOTTLE TP SCH ×2 (08:55→20:44)
[2016-11-25] MEDS: HEPARIN SODIUM, PORCINE 5000 UNITS/1 ML VIAL SQ SCH ×2 (08:55→20:44)
[2016-11-25] MEDS: Z GUARD REMEDY 4 OZ OINT TP SCH ×2 (08:55→20:44)
--- NOTE | 2016-11-25 09:30 | NUR ---
Seen by Dr Aguilar with no new order.Resident temp 98.0 at this time ,no changes on LOC,eating with fair / good appetite mother on bedside.Per Dr Aguilar to closely monitor pt temp.Will continue to monitor.
--- NOTE | 2016-11-25 10:10 | NUR ---
Seen and examined by Dr Lubin with no new order.
--- NOTE | 2016-11-25 11:08 | NUR ---
Dr Lubin with order chest xray on 11/26/16 due to episode of on and off fever noted and carried out.Resident and mother made aware.
[2016-11-25] MEDS: ACETAMINOPHEN 650 MG/20.3 ML UDC GT PRN (13:03)
--- NOTE | 2016-11-25 14:35 | NUR ---
Dr Aguilar made aware pt with fever 101.6 not in distress,no sob,no changes on LOC noted.Dr Aguilar with order Rocephin 1 gm Q 24 hrs for 5 days order noted and carried out.Resident mother on bedside made aware of new order.Cooling measures rendered.Acetaminophen 650mg given via GT as ordered for fever.Suctioning rendered with whitish secretions.HOB elevated at all times.Repositioning for comfort and pressure relief.Will continue to monitor.
[2016-11-25] MEDS: CEFTRIAXONE 1 G in IV D5W 50 ML IV SCH (16:00)
--- NOTE | 2016-11-25 16:00 | NUR ---
Started IV line on Left hand attempted x 1 with good bloodflow returned procedure tolerated well.Rocephin 1 gram started from the [facility] for fever.Will continue to monitor
[2016-11-25] MEDS ORDERED: CEFTRIAXONE 1 G in IV D5W 50 ML IV SCH ×4 (17:00)
[2016-11-25 19:56] VITALS: BP 111/52
[2016-11-25] MEDS: POLYETHYLENE GLYCOL 3350 17 GM POWD.PACK GT SCH (22:54)
[2016-11-26] MEDS: ALBUTEROL FS 2.5 MG/3 ML VIAL.NEB NEB SCH ×4 (01:30→20:25)
[2016-11-26] MEDS: POLYVINYL ALCOHOL 15 ML BOTTLE EACHEYE SCH ×4 (05:41→23:54)
[2016-11-26] MEDS: CHLORHEXIDINE GLUCONATE 15 ML UDC MM SCH ×2 (06:09→17:56)
[2016-11-26 08:07] VITALS: BP 137/120
[2016-11-26] MEDS: CARBAMAZEPINE 100 MG/5 ML GT SCH ×3 (09:00→17:56)
[2016-11-26] MEDS: SENNOSIDES 8.6 MG TABLET GT SCH ×2 (09:00→21:17)
[2016-11-26] MEDS: FOLIC ACID 1 MG TABLET GT SCH ×2 (09:00→17:56)
[2016-11-26] MEDS: Z GUARD REMEDY 4 OZ OINT TP SCH ×2 (09:00→21:18)
[2016-11-26] MEDS: CHOLECALCIFEROL 1,000 UNIT TABLET (VIT D3) GT SCH (09:00)
[2016-11-26] MEDS: HYDROGEN PEROXIDE 480 ML BOTTLE TP SCH ×2 (09:00→21:18)
[2016-11-26] MEDS: LEVETIRACETAM SOL (5 ML) 100 MG/ML UDC GT SCH ×2 (09:00→21:17)
[2016-11-26] MEDS: HEPARIN SODIUM, PORCINE 5000 UNITS/1 ML VIAL SQ SCH ×2 (09:00→21:18)
[2016-11-26] MEDS: SERTRALINE HCL 25 MG TABLET GT SCH (09:00)
[2016-11-26] MEDS: BACLOFEN (10 MG) 10 MG TABLET GT SCH ×3 (09:00→17:56)
--- NOTE | 2016-11-26 11:39 | NUR ---
Seen and examined by Dr. Aguilar with new order to add Doxycycline 100 mg, QS same duration as Rocephin. According to Dr. Aguilar, studies shows that combination of Doxycycline and Rocephin reduces 60% of C. diff. Resident's mother at bedside and aware of new order.
[2016-11-26] MEDS: CEFTRIAXONE 1 G in IV D5W 50 ML IV SCH (16:00)
[2016-11-26] MEDS: DOXYCYCLINE HYCLATE (100 MG) 100 MG TABLET GT SCH (18:35)
[2016-11-26 20:02] VITALS: BP 113/75
[2016-11-26] MEDS ORDERED: DOXYCYCLINE HYCLATE (100 MG) 100 MG TABLET GT SCH (21:00)
[2016-11-26] MEDS: POLYETHYLENE GLYCOL 3350 17 GM POWD.PACK GT SCH (21:18)
[2016-11-27] MEDS: ALBUTEROL FS 2.5 MG/3 ML VIAL.NEB NEB SCH ×4 (01:53→19:42)
[2016-11-27] MEDS: POLYVINYL ALCOHOL 15 ML BOTTLE EACHEYE SCH ×4 (05:10→23:16)
[2016-11-27] MEDS: CHLORHEXIDINE GLUCONATE 15 ML UDC MM SCH ×2 (05:10→17:02)
[2016-11-27] MEDS: DOXYCYCLINE HYCLATE (100 MG) 100 MG TABLET GT SCH ×2 (05:44→18:13)
[2016-11-27 07:36] VITALS: BP 119/72
[2016-11-27] MEDS: FOLIC ACID 1 MG TABLET GT SCH ×2 (08:24→17:02)
[2016-11-27] MEDS: SERTRALINE HCL 25 MG TABLET GT SCH (08:24)
[2016-11-27] MEDS: BACLOFEN (10 MG) 10 MG TABLET GT SCH ×3 (08:24→17:02)
[2016-11-27] MEDS: CHOLECALCIFEROL 1,000 UNIT TABLET (VIT D3) GT SCH (08:24)
[2016-11-27] MEDS: SENNOSIDES 8.6 MG TABLET GT SCH ×2 (08:24→20:22)
[2016-11-27] MEDS: CARBAMAZEPINE 100 MG/5 ML GT SCH ×3 (08:24→17:02)
[2016-11-27] MEDS: LEVETIRACETAM SOL (5 ML) 100 MG/ML UDC GT SCH ×2 (08:24→20:22)
[2016-11-27] MEDS: HYDROGEN PEROXIDE 480 ML BOTTLE TP SCH ×2 (08:25→20:23)
[2016-11-27] MEDS: Z GUARD REMEDY 4 OZ OINT TP SCH ×2 (08:25→20:23)
[2016-11-27] MEDS: HEPARIN SODIUM, PORCINE 5000 UNITS/1 ML VIAL SQ SCH ×2 (08:25→20:23)
[2016-11-27] MEDS: CEFTRIAXONE 1 G in IV D5W 50 ML IV SCH (16:00)
[2016-11-27] MEDS: POLYETHYLENE GLYCOL 3350 17 GM POWD.PACK GT SCH (21:08)
[2016-11-27 22:08] VITALS: BP 114/67
[2016-11-28] MEDS: ALBUTEROL FS 2.5 MG/3 ML VIAL.NEB NEB SCH ×4 (01:31→19:25)
[2016-11-28] MEDS: CHLORHEXIDINE GLUCONATE 15 ML UDC MM SCH ×2 (05:15→18:28)
[2016-11-28] MEDS: POLYVINYL ALCOHOL 15 ML BOTTLE EACHEYE SCH ×4 (05:15→23:23)
[2016-11-28] MEDS: DOXYCYCLINE HYCLATE (100 MG) 100 MG TABLET GT SCH ×2 (05:47→18:28)
[2016-11-28 07:30] VITALS: BP 135/78
[2016-11-28] MEDS: FOLIC ACID 1 MG TABLET GT SCH ×2 (08:51→17:00)
[2016-11-28] MEDS: LEVETIRACETAM SOL (5 ML) 100 MG/ML UDC GT SCH ×2 (08:51→20:23)
[2016-11-28] MEDS: BACLOFEN (10 MG) 10 MG TABLET GT SCH ×3 (08:51→17:00)
[2016-11-28] MEDS: SENNOSIDES 8.6 MG TABLET GT SCH ×2 (08:51→20:23)
[2016-11-28] MEDS: CHOLECALCIFEROL 1,000 UNIT TABLET (VIT D3) GT SCH (08:51)
[2016-11-28] MEDS: SERTRALINE HCL 25 MG TABLET GT SCH (08:51)
[2016-11-28] MEDS: CARBAMAZEPINE 100 MG/5 ML GT SCH ×3 (08:51→17:00)
[2016-11-28] MEDS: HEPARIN SODIUM, PORCINE 5000 UNITS/1 ML VIAL SQ SCH ×2 (08:52→20:24)
[2016-11-28] MEDS: HYDROGEN PEROXIDE 480 ML BOTTLE TP SCH ×2 (08:53→20:24)
[2016-11-28] MEDS: Z GUARD REMEDY 4 OZ OINT TP SCH ×2 (08:53→20:24)
[2016-11-28] MEDS: CEFTRIAXONE 1 G in IV D5W 50 ML IV SCH (16:00)
[2016-11-28] MEDS: LACTOBACILLUS RHAMNOSUS GG 1 EACH CAP.SPRINK PO SCH (17:00)
[2016-11-28 19:33] VITALS: BP 111/67
[2016-11-28] MEDS: POLYETHYLENE GLYCOL 3350 17 GM POWD.PACK GT SCH (21:31)
[2016-11-29] MEDS: ALBUTEROL FS 2.5 MG/3 ML VIAL.NEB NEB SCH ×4 (01:21→19:30)
[2016-11-29] MEDS: POLYVINYL ALCOHOL 15 ML BOTTLE EACHEYE SCH ×4 (05:26→23:16)
[2016-11-29] MEDS: CHLORHEXIDINE GLUCONATE 15 ML UDC MM SCH ×2 (05:26→18:03)
[2016-11-29] MEDS: DOXYCYCLINE HYCLATE (100 MG) 100 MG TABLET GT SCH ×2 (05:39→18:03)
[2016-11-29 07:34] VITALS: BP 116/75
[2016-11-29] MEDS: CARBAMAZEPINE 100 MG/5 ML GT SCH ×3 (08:32→17:00)
[2016-11-29] MEDS: LEVETIRACETAM SOL (5 ML) 100 MG/ML UDC GT SCH ×2 (08:32→20:25)
[2016-11-29] MEDS: FOLIC ACID 1 MG TABLET GT SCH ×2 (08:32→17:00)
[2016-11-29] MEDS: SENNOSIDES 8.6 MG TABLET GT SCH ×2 (08:32→20:25)
[2016-11-29] MEDS: LACTOBACILLUS RHAMNOSUS GG 1 EACH CAP.SPRINK PO SCH ×2 (08:32→17:00)
[2016-11-29] MEDS: CHOLECALCIFEROL 1,000 UNIT TABLET (VIT D3) GT SCH (08:32)
[2016-11-29] MEDS: SERTRALINE HCL 25 MG TABLET GT SCH (08:32)
[2016-11-29] MEDS: BACLOFEN (10 MG) 10 MG TABLET GT SCH ×3 (08:32→17:00)
[2016-11-29] MEDS: HEPARIN SODIUM, PORCINE 5000 UNITS/1 ML VIAL SQ SCH ×2 (08:33→20:25)
[2016-11-29] MEDS: Z GUARD REMEDY 4 OZ OINT TP SCH ×2 (08:33→20:26)
[2016-11-29] MEDS: HYDROGEN PEROXIDE 480 ML BOTTLE TP SCH ×2 (08:33→20:26)
--- NOTE | 2016-11-29 14:00 | NUR ---
Seen and examined by Dr. Aguilar, reported resident still has 2 doses of Rocephin left but she has no IV access at this time, patient is a hard stick. According to MD, to try to reinsert an IV access again and if unsuccessful to change ATB order from Rocephin IV to Keflex 500 mg. Q 12 hours x 2 days. Will attempt to reinsert HL.
[2016-11-29] MEDS: CEFTRIAXONE 1 G in IV D5W 50 ML IV SCH (16:00)
--- NOTE | 2016-11-29 16:00 | NUR ---
HL inserted in the R FA x1 attempt by ICU nurse using G#24, patent with good blood return. IV Rocephin given as previously ordered.
[2016-11-29 19:53] VITALS: BP 121/67
[2016-11-29] MEDS: POLYETHYLENE GLYCOL 3350 17 GM POWD.PACK GT SCH (21:08)
[2016-11-30] MEDS: ALBUTEROL FS 2.5 MG/3 ML VIAL.NEB NEB SCH ×4 (01:53→19:30)
[2016-11-30] MEDS: CHLORHEXIDINE GLUCONATE 15 ML UDC MM SCH ×2 (05:11→18:00)
[2016-11-30] MEDS: POLYVINYL ALCOHOL 15 ML BOTTLE EACHEYE SCH ×4 (05:11→23:19)
[2016-11-30] MEDS: DOXYCYCLINE HYCLATE (100 MG) 100 MG TABLET GT SCH ×2 (05:35→19:17)
[2016-11-30 07:35] VITALS: BP 115/78
[2016-11-30] MEDS: LEVETIRACETAM SOL (5 ML) 100 MG/ML UDC GT SCH ×2 (08:56→21:15)
[2016-11-30] MEDS: FOLIC ACID 1 MG TABLET GT SCH ×2 (08:56→17:35)
[2016-11-30] MEDS: BACLOFEN (10 MG) 10 MG TABLET GT SCH ×3 (08:56→17:35)
[2016-11-30] MEDS: SERTRALINE HCL 25 MG TABLET GT SCH (08:57)
[2016-11-30] MEDS: CARBAMAZEPINE 100 MG/5 ML GT SCH ×3 (08:57→17:35)
[2016-11-30] MEDS: SENNOSIDES 8.6 MG TABLET GT SCH ×2 (08:57→21:15)
[2016-11-30] MEDS: LACTOBACILLUS RHAMNOSUS GG 1 EACH CAP.SPRINK PO SCH ×2 (08:57→17:35)
[2016-11-30] MEDS: CHOLECALCIFEROL 1,000 UNIT TABLET (VIT D3) GT SCH (08:57)
[2016-11-30] MEDS: HEPARIN SODIUM, PORCINE 5000 UNITS/1 ML VIAL SQ SCH ×2 (08:58→21:16)
[2016-11-30] MEDS: Z GUARD REMEDY 4 OZ OINT TP SCH (09:00)
[2016-11-30] MEDS: HYDROGEN PEROXIDE 480 ML BOTTLE TP SCH ×2 (09:00→21:16)
[2016-11-30 19:50] VITALS: BP 100/67
[2016-11-30] MEDS: POLYETHYLENE GLYCOL 3350 17 GM POWD.PACK GT SCH (21:16)
[2016-12-01] MEDS: ALBUTEROL FS 2.5 MG/3 ML VIAL.NEB NEB SCH ×4 (01:34→19:30)
[2016-12-01] MEDS: POLYVINYL ALCOHOL 15 ML BOTTLE EACHEYE SCH ×4 (05:30→23:50)
[2016-12-01] MEDS: CHLORHEXIDINE GLUCONATE 15 ML UDC MM SCH ×2 (05:30→17:06)
[2016-12-01] MEDS: DOXYCYCLINE HYCLATE (100 MG) 100 MG TABLET GT SCH (05:40)
[2016-12-01 07:41] VITALS: BP 102/58
[2016-12-01] MEDS: CHOLECALCIFEROL 1,000 UNIT TABLET (VIT D3) GT SCH (08:34)
[2016-12-01] MEDS: CARBAMAZEPINE 100 MG/5 ML GT SCH ×3 (08:34→17:06)
[2016-12-01] MEDS: BACLOFEN (10 MG) 10 MG TABLET GT SCH ×3 (08:34→17:05)
[2016-12-01] MEDS: FOLIC ACID 1 MG TABLET GT SCH ×2 (08:34→17:05)
[2016-12-01] MEDS: SERTRALINE HCL 25 MG TABLET GT SCH (08:34)
[2016-12-01] MEDS: LEVETIRACETAM SOL (5 ML) 100 MG/ML UDC GT SCH ×2 (08:34→20:27)
[2016-12-01] MEDS: SENNOSIDES 8.6 MG TABLET GT SCH ×2 (08:34→20:27)
[2016-12-01] MEDS: LACTOBACILLUS RHAMNOSUS GG 1 EACH CAP.SPRINK PO SCH ×2 (08:37→17:06)
[2016-12-01] MEDS: HEPARIN SODIUM, PORCINE 5000 UNITS/1 ML VIAL SQ SCH ×2 (08:37→20:28)
[2016-12-01] MEDS: HYDROGEN PEROXIDE 480 ML BOTTLE TP SCH ×2 (08:41→20:28)
[2016-12-01] MEDS ORDERED: Z GUARD REMEDY 4 OZ OINT TP PRN (12:30)
[2016-12-01 20:28] VITALS: BP 104/60
[2016-12-01] MEDS: Z GUARD REMEDY 4 OZ OINT TP SCH (20:28)
[2016-12-01] MEDS: POLYETHYLENE GLYCOL 3350 17 GM POWD.PACK GT SCH (21:27)
[2016-12-02] MEDS: ALBUTEROL FS 2.5 MG/3 ML VIAL.NEB NEB SCH ×4 (01:21→19:30)
[2016-12-02] MEDS: CHLORHEXIDINE GLUCONATE 15 ML UDC MM SCH ×2 (05:21→18:23)
[2016-12-02] MEDS: POLYVINYL ALCOHOL 15 ML BOTTLE EACHEYE SCH ×3 (05:21→18:23)
[2016-12-02 08:10] VITALS: BP 111/56
[2016-12-02 08:12] VITALS: BP 111/56
[2016-12-02] MEDS: FOLIC ACID 1 MG TABLET GT SCH ×2 (08:40→17:00)
[2016-12-02] MEDS: LEVETIRACETAM SOL (5 ML) 100 MG/ML UDC GT SCH ×2 (08:40→20:22)
[2016-12-02] MEDS: BACLOFEN (10 MG) 10 MG TABLET GT SCH ×3 (08:40→17:00)
[2016-12-02] MEDS: SENNOSIDES 8.6 MG TABLET GT SCH ×2 (08:40→20:22)
[2016-12-02] MEDS: SERTRALINE HCL 25 MG TABLET GT SCH (08:41)
[2016-12-02] MEDS: LACTOBACILLUS RHAMNOSUS GG 1 EACH CAP.SPRINK PO SCH ×2 (08:41→17:00)
[2016-12-02] MEDS: CHOLECALCIFEROL 1,000 UNIT TABLET (VIT D3) GT SCH (08:41)
[2016-12-02] MEDS: CARBAMAZEPINE 100 MG/5 ML GT SCH ×3 (08:41→17:00)
[2016-12-02] MEDS: HEPARIN SODIUM, PORCINE 5000 UNITS/1 ML VIAL SQ SCH ×2 (08:41→20:22)
[2016-12-02] MEDS: Z GUARD REMEDY 4 OZ OINT TP SCH ×2 (09:00→20:22)
[2016-12-02] MEDS: HYDROGEN PEROXIDE 480 ML BOTTLE TP SCH ×2 (09:00→20:22)
[2016-12-02 19:45] VITALS: BP 114/67
[2016-12-02] MEDS: POLYETHYLENE GLYCOL 3350 17 GM POWD.PACK GT SCH (21:59)
[2016-12-03] MEDS: POLYVINYL ALCOHOL 15 ML BOTTLE EACHEYE SCH ×5 (00:05→23:30)
[2016-12-03] MEDS: ALBUTEROL FS 2.5 MG/3 ML VIAL.NEB NEB SCH ×4 (01:21→19:38)
[2016-12-03] MEDS: CHLORHEXIDINE GLUCONATE 15 ML UDC MM SCH ×2 (05:30→18:50)
[2016-12-03 07:41] VITALS: BP 124/76
[2016-12-03] MEDS: BACLOFEN (10 MG) 10 MG TABLET GT SCH ×3 (08:32→16:43)
[2016-12-03] MEDS: SENNOSIDES 8.6 MG TABLET GT SCH ×2 (08:32→20:23)
[2016-12-03] MEDS: SERTRALINE HCL 25 MG TABLET GT SCH (08:32)
[2016-12-03] MEDS: CARBAMAZEPINE 100 MG/5 ML GT SCH ×3 (08:32→16:43)
[2016-12-03] MEDS: LEVETIRACETAM SOL (5 ML) 100 MG/ML UDC GT SCH ×2 (08:32→20:23)
[2016-12-03] MEDS: FOLIC ACID 1 MG TABLET GT SCH ×2 (08:32→16:43)
[2016-12-03] MEDS: CHOLECALCIFEROL 1,000 UNIT TABLET (VIT D3) GT SCH (08:32)
[2016-12-03] MEDS: LACTOBACILLUS RHAMNOSUS GG 1 EACH CAP.SPRINK PO SCH ×2 (08:32→16:43)
[2016-12-03] MEDS: HEPARIN SODIUM, PORCINE 5000 UNITS/1 ML VIAL SQ SCH ×2 (08:33→20:24)
[2016-12-03] MEDS: Z GUARD REMEDY 4 OZ OINT TP SCH ×2 (08:34→20:24)
[2016-12-03] MEDS: HYDROGEN PEROXIDE 480 ML BOTTLE TP SCH ×2 (08:34→20:24)
[2016-12-03 20:03] VITALS: BP 106/58
[2016-12-03] MEDS: POLYETHYLENE GLYCOL 3350 17 GM POWD.PACK GT SCH (21:24)
[2016-12-04] MEDS: ALBUTEROL FS 2.5 MG/3 ML VIAL.NEB NEB SCH ×4 (01:43→19:36)
[2016-12-04] MEDS: CHLORHEXIDINE GLUCONATE 15 ML UDC MM SCH ×2 (05:22→18:56)
[2016-12-04] MEDS: POLYVINYL ALCOHOL 15 ML BOTTLE EACHEYE SCH ×4 (05:22→23:37)
[2016-12-04 07:38] VITALS: BP 109/65
[2016-12-04] MEDS: FOLIC ACID 1 MG TABLET GT SCH ×2 (08:44→16:22)
[2016-12-04] MEDS: BACLOFEN (10 MG) 10 MG TABLET GT SCH ×3 (08:44→16:22)
[2016-12-04] MEDS: CARBAMAZEPINE 100 MG/5 ML GT SCH ×3 (08:44→16:22)
[2016-12-04] MEDS: SENNOSIDES 8.6 MG TABLET GT SCH ×2 (08:44→20:34)
[2016-12-04] MEDS: LEVETIRACETAM SOL (5 ML) 100 MG/ML UDC GT SCH ×2 (08:44→20:34)
[2016-12-04] MEDS: CHOLECALCIFEROL 1,000 UNIT TABLET (VIT D3) GT SCH (08:47)
[2016-12-04] MEDS: SERTRALINE HCL 25 MG TABLET GT SCH (08:47)
[2016-12-04] MEDS: LACTOBACILLUS RHAMNOSUS GG 1 EACH CAP.SPRINK PO SCH ×2 (08:47→16:22)
[2016-12-04] MEDS: Z GUARD REMEDY 4 OZ OINT TP SCH ×2 (08:48→20:35)
[2016-12-04] MEDS: HYDROGEN PEROXIDE 480 ML BOTTLE TP SCH ×2 (08:48→20:35)
[2016-12-04] MEDS: HEPARIN SODIUM, PORCINE 5000 UNITS/1 ML VIAL SQ SCH ×2 (08:48→20:35)
[2016-12-04 20:34] VITALS: BP 93/58
[2016-12-04] MEDS: POLYETHYLENE GLYCOL 3350 17 GM POWD.PACK GT SCH (21:16)
[2016-12-05] MEDS: ALBUTEROL FS 2.5 MG/3 ML VIAL.NEB NEB SCH ×4 (00:58→19:55)
[2016-12-05] MEDS: POLYVINYL ALCOHOL 15 ML BOTTLE EACHEYE SCH ×4 (05:13→23:27)
[2016-12-05] MEDS: CHLORHEXIDINE GLUCONATE 15 ML UDC MM SCH ×2 (05:13→17:13)
[2016-12-05 07:39] VITALS: BP 125/69
[2016-12-05] MEDS: BACLOFEN (10 MG) 10 MG TABLET GT SCH ×3 (08:47→16:39)
[2016-12-05] MEDS: SENNOSIDES 8.6 MG TABLET GT SCH ×2 (08:47→20:26)
[2016-12-05] MEDS: SERTRALINE HCL 25 MG TABLET GT SCH (08:47)
[2016-12-05] MEDS: LACTOBACILLUS RHAMNOSUS GG 1 EACH CAP.SPRINK PO SCH ×2 (08:47→16:39)
[2016-12-05] MEDS: LEVETIRACETAM SOL (5 ML) 100 MG/ML UDC GT SCH ×2 (08:47→20:26)
[2016-12-05] MEDS: CHOLECALCIFEROL 1,000 UNIT TABLET (VIT D3) GT SCH (08:47)
[2016-12-05] MEDS: FOLIC ACID 1 MG TABLET GT SCH ×2 (08:47→16:39)
[2016-12-05] MEDS: CARBAMAZEPINE 100 MG/5 ML GT SCH ×3 (08:47→16:39)
[2016-12-05] MEDS: HYDROGEN PEROXIDE 480 ML BOTTLE TP SCH ×2 (08:57→20:26)
[2016-12-05] MEDS: Z GUARD REMEDY 4 OZ OINT TP SCH ×2 (08:57→20:26)
[2016-12-05] MEDS: HEPARIN SODIUM, PORCINE 5000 UNITS/1 ML VIAL SQ SCH ×2 (08:57→20:26)
--- NOTE | 2016-12-05 15:00 | NUR ---
INTERDISCIPLINARY PLAN OF CARE CONFERENCE was held today. Resident's family did not attend. Dr. Lubin and the interdisciplinary team reviewed the current plan of care in detail. No new orders were given.
[2016-12-05] MEDS: POLYETHYLENE GLYCOL 3350 17 GM POWD.PACK GT SCH (21:35)
[2016-12-05 21:40] VITALS: BP 104/59
[2016-12-06] MEDS: ALBUTEROL FS 2.5 MG/3 ML VIAL.NEB NEB SCH ×4 (01:49→19:30)
[2016-12-06] MEDS: CHLORHEXIDINE GLUCONATE 15 ML UDC MM SCH ×2 (05:14→18:22)
[2016-12-06] MEDS: POLYVINYL ALCOHOL 15 ML BOTTLE EACHEYE SCH ×3 (05:14→18:00)
[2016-12-06 07:37] VITALS: BP 112/59
[2016-12-06] MEDS: LEVETIRACETAM SOL (5 ML) 100 MG/ML UDC GT SCH ×2 (09:09→21:27)
[2016-12-06] MEDS: SERTRALINE HCL 25 MG TABLET GT SCH (09:09)
[2016-12-06] MEDS: SENNOSIDES 8.6 MG TABLET GT SCH ×2 (09:09→21:27)
[2016-12-06] MEDS: FOLIC ACID 1 MG TABLET GT SCH ×2 (09:09→17:00)
[2016-12-06] MEDS: LACTOBACILLUS RHAMNOSUS GG 1 EACH CAP.SPRINK PO SCH ×2 (09:09→17:00)
[2016-12-06] MEDS: BACLOFEN (10 MG) 10 MG TABLET GT SCH ×3 (09:09→17:00)
[2016-12-06] MEDS: CHOLECALCIFEROL 1,000 UNIT TABLET (VIT D3) GT SCH (09:09)
[2016-12-06] MEDS: CARBAMAZEPINE 100 MG/5 ML GT SCH ×3 (09:09→17:00)
[2016-12-06] MEDS: HEPARIN SODIUM, PORCINE 5000 UNITS/1 ML VIAL SQ SCH ×2 (09:10→21:27)
[2016-12-06] MEDS: HYDROGEN PEROXIDE 480 ML BOTTLE TP SCH ×2 (10:00→21:00)
[2016-12-06] MEDS: Z GUARD REMEDY 4 OZ OINT TP SCH ×2 (10:00→21:00)
[2016-12-06 20:51] VITALS: BP 94/55
[2016-12-06] MEDS: POLYETHYLENE GLYCOL 3350 17 GM POWD.PACK GT SCH (21:28)
[2016-12-07] MEDS: ALBUTEROL FS 2.5 MG/3 ML VIAL.NEB NEB SCH ×4 (01:36→19:15)
[2016-12-07] MEDS: POLYVINYL ALCOHOL 15 ML BOTTLE EACHEYE SCH ×5 (06:03→23:47)
[2016-12-07] MEDS: CHLORHEXIDINE GLUCONATE 15 ML UDC MM SCH ×2 (06:03→17:19)
[2016-12-07 07:44] VITALS: BP 115/68
[2016-12-07] MEDS: LEVETIRACETAM SOL (5 ML) 100 MG/ML UDC GT SCH ×2 (09:07→21:14)
[2016-12-07] MEDS: FOLIC ACID 1 MG TABLET GT SCH ×2 (09:07→16:44)
[2016-12-07] MEDS: BACLOFEN (10 MG) 10 MG TABLET GT SCH ×3 (09:07→16:44)
[2016-12-07] MEDS: SENNOSIDES 8.6 MG TABLET GT SCH ×2 (09:07→21:14)
[2016-12-07] MEDS: LACTOBACILLUS RHAMNOSUS GG 1 EACH CAP.SPRINK PO SCH ×2 (09:08→16:45)
[2016-12-07] MEDS: CHOLECALCIFEROL 1,000 UNIT TABLET (VIT D3) GT SCH (09:08)
[2016-12-07] MEDS: CARBAMAZEPINE 100 MG/5 ML GT SCH ×3 (09:08→16:45)
[2016-12-07] MEDS: HEPARIN SODIUM, PORCINE 5000 UNITS/1 ML VIAL SQ SCH ×2 (09:08→21:14)
[2016-12-07] MEDS: SERTRALINE HCL 25 MG TABLET GT SCH (09:08)
[2016-12-07] MEDS: Z GUARD REMEDY 4 OZ OINT TP SCH ×2 (09:09→21:14)
[2016-12-07] MEDS: HYDROGEN PEROXIDE 480 ML BOTTLE TP SCH ×2 (09:09→21:14)
--- NOTE | 2016-12-07 14:09 | NUR ---
Seen and examined by Dr. Aguilar with no new order given.
[2016-12-07 20:02] VITALS: BP 101/64
[2016-12-07] MEDS: POLYETHYLENE GLYCOL 3350 17 GM POWD.PACK GT SCH (21:15)
[2016-12-08] MEDS: ALBUTEROL FS 2.5 MG/3 ML VIAL.NEB NEB SCH ×4 (00:52→20:23)
[2016-12-08] MEDS: POLYVINYL ALCOHOL 15 ML BOTTLE EACHEYE SCH ×4 (05:26→23:45)
[2016-12-08] MEDS: CHLORHEXIDINE GLUCONATE 15 ML UDC MM SCH ×2 (05:26→17:43)
[2016-12-08 07:56] VITALS: BP 114/64
[2016-12-08] MEDS: LACTOBACILLUS RHAMNOSUS GG 1 EACH CAP.SPRINK PO SCH ×2 (09:43→17:43)
[2016-12-08] MEDS: CHOLECALCIFEROL 1,000 UNIT TABLET (VIT D3) GT SCH (09:43)
[2016-12-08] MEDS: SENNOSIDES 8.6 MG TABLET GT SCH ×2 (09:43→20:19)
[2016-12-08] MEDS: SERTRALINE HCL 25 MG TABLET GT SCH (09:43)
[2016-12-08] MEDS: FOLIC ACID 1 MG TABLET GT SCH ×2 (09:43→17:43)
[2016-12-08] MEDS: BACLOFEN (10 MG) 10 MG TABLET GT SCH ×3 (09:43→17:43)
[2016-12-08] MEDS: LEVETIRACETAM SOL (5 ML) 100 MG/ML UDC GT SCH ×2 (09:43→20:18)
[2016-12-08] MEDS: CARBAMAZEPINE 100 MG/5 ML GT SCH ×3 (09:43→17:43)
[2016-12-08] MEDS: HEPARIN SODIUM, PORCINE 5000 UNITS/1 ML VIAL SQ SCH ×2 (09:44→20:19)
[2016-12-08] MEDS: Z GUARD REMEDY 4 OZ OINT TP SCH ×2 (09:44→20:19)
[2016-12-08] MEDS: HYDROGEN PEROXIDE 480 ML BOTTLE TP SCH ×2 (09:44→20:19)
[2016-12-08 19:50] VITALS: BP 101/61
[2016-12-08] MEDS: POLYETHYLENE GLYCOL 3350 17 GM POWD.PACK GT SCH (21:21)
[2016-12-09] MEDS: ALBUTEROL FS 2.5 MG/3 ML VIAL.NEB NEB SCH ×4 (01:30→19:51)
[2016-12-09] MEDS: POLYVINYL ALCOHOL 15 ML BOTTLE EACHEYE SCH ×4 (05:37→23:31)
[2016-12-09] MEDS: CHLORHEXIDINE GLUCONATE 15 ML UDC MM SCH ×2 (05:38→17:40)
[2016-12-09 08:17] VITALS: BP 112/77
[2016-12-09] MEDS: LEVETIRACETAM SOL (5 ML) 100 MG/ML UDC GT SCH ×2 (09:43→20:30)
[2016-12-09] MEDS: SENNOSIDES 8.6 MG TABLET GT SCH ×2 (09:43→20:30)
[2016-12-09] MEDS: FOLIC ACID 1 MG TABLET GT SCH ×2 (09:43→17:38)
[2016-12-09] MEDS: BACLOFEN (10 MG) 10 MG TABLET GT SCH ×3 (09:43→17:38)
[2016-12-09] MEDS: CARBAMAZEPINE 100 MG/5 ML GT SCH ×3 (09:43→17:38)
[2016-12-09] MEDS: SERTRALINE HCL 25 MG TABLET GT SCH (09:43)
[2016-12-09] MEDS: CHOLECALCIFEROL 1,000 UNIT TABLET (VIT D3) GT SCH (09:43)
[2016-12-09] MEDS: LACTOBACILLUS RHAMNOSUS GG 1 EACH CAP.SPRINK PO SCH ×2 (09:43→17:40)
[2016-12-09] MEDS: HYDROGEN PEROXIDE 480 ML BOTTLE TP SCH ×2 (09:44→20:30)
[2016-12-09] MEDS: HEPARIN SODIUM, PORCINE 5000 UNITS/1 ML VIAL SQ SCH ×2 (09:44→20:30)
[2016-12-09] MEDS: Z GUARD REMEDY 4 OZ OINT TP SCH ×2 (09:44→20:30)
[2016-12-09 19:27] VITALS: BP 109/72
[2016-12-09] MEDS: POLYETHYLENE GLYCOL 3350 17 GM POWD.PACK GT SCH (21:34)
[2016-12-10] MEDS: ALBUTEROL FS 2.5 MG/3 ML VIAL.NEB NEB SCH ×4 (02:15→20:08)
[2016-12-10] MEDS: CHLORHEXIDINE GLUCONATE 15 ML UDC MM SCH ×2 (05:04→18:24)
[2016-12-10] MEDS: POLYVINYL ALCOHOL 15 ML BOTTLE EACHEYE SCH ×3 (05:04→18:24)
[2016-12-10 07:55] VITALS: BP 121/72
[2016-12-10] MEDS: FOLIC ACID 1 MG TABLET GT SCH ×2 (08:29→16:09)
[2016-12-10] MEDS: SERTRALINE HCL 25 MG TABLET GT SCH (08:30)
[2016-12-10] MEDS: LEVETIRACETAM SOL (5 ML) 100 MG/ML UDC GT SCH ×2 (08:30→20:06)
[2016-12-10] MEDS: SENNOSIDES 8.6 MG TABLET GT SCH ×2 (08:30→20:06)
[2016-12-10] MEDS: LACTOBACILLUS RHAMNOSUS GG 1 EACH CAP.SPRINK PO SCH ×2 (08:30→16:09)
[2016-12-10] MEDS: CARBAMAZEPINE 100 MG/5 ML GT SCH ×3 (08:30→16:09)
[2016-12-10] MEDS: BACLOFEN (10 MG) 10 MG TABLET GT SCH ×3 (08:30→16:09)
[2016-12-10] MEDS: Z GUARD REMEDY 4 OZ OINT TP SCH ×2 (08:32→20:07)
[2016-12-10] MEDS: HYDROGEN PEROXIDE 480 ML BOTTLE TP SCH ×2 (08:32→20:07)
[2016-12-10] MEDS: HEPARIN SODIUM, PORCINE 5000 UNITS/1 ML VIAL SQ SCH ×2 (08:32→20:06)
[2016-12-10] MEDS: CHOLECALCIFEROL 1,000 UNIT TABLET (VIT D3) GT SCH (08:39)
[2016-12-10 20:04] VITALS: BP 104/63
[2016-12-10] MEDS: POLYETHYLENE GLYCOL 3350 17 GM POWD.PACK GT SCH (21:44)
[2016-12-11] MEDS: POLYVINYL ALCOHOL 15 ML BOTTLE EACHEYE SCH ×4 (00:10→17:56)
[2016-12-11] MEDS: ALBUTEROL FS 2.5 MG/3 ML VIAL.NEB NEB SCH ×4 (02:08→20:12)
[2016-12-11] MEDS: CHLORHEXIDINE GLUCONATE 15 ML UDC MM SCH ×2 (05:26→17:56)
[2016-12-11 07:40] VITALS: BP 115/63
[2016-12-11] MEDS: FOLIC ACID 1 MG TABLET GT SCH ×2 (08:21→16:25)
[2016-12-11] MEDS: LACTOBACILLUS RHAMNOSUS GG 1 EACH CAP.SPRINK PO SCH ×2 (08:21→16:25)
[2016-12-11] MEDS: LEVETIRACETAM SOL (5 ML) 100 MG/ML UDC GT SCH ×2 (08:21→21:33)
[2016-12-11] MEDS: BACLOFEN (10 MG) 10 MG TABLET GT SCH ×3 (08:21→16:25)
[2016-12-11] MEDS: SERTRALINE HCL 25 MG TABLET GT SCH (08:21)
[2016-12-11] MEDS: HEPARIN SODIUM, PORCINE 5000 UNITS/1 ML VIAL SQ SCH ×2 (08:23→21:33)
[2016-12-11] MEDS: HYDROGEN PEROXIDE 480 ML BOTTLE TP SCH ×2 (08:23→21:33)
[2016-12-11] MEDS: Z GUARD REMEDY 4 OZ OINT TP SCH ×2 (08:23→21:33)
[2016-12-11] MEDS: CARBAMAZEPINE 100 MG/5 ML GT SCH ×3 (08:28→16:25)
[2016-12-11] MEDS: CHOLECALCIFEROL 1,000 UNIT TABLET (VIT D3) GT SCH (09:30)
[2016-12-11] MEDS: SENNOSIDES 8.6 MG TABLET GT SCH ×2 (09:30→21:33)
[2016-12-11 19:48] VITALS: BP 102/76
[2016-12-11] MEDS: POLYETHYLENE GLYCOL 3350 17 GM POWD.PACK GT SCH (21:33)
[2016-12-12] MEDS: POLYVINYL ALCOHOL 15 ML BOTTLE EACHEYE SCH ×5 (00:46→23:54)
[2016-12-12] MEDS: ALBUTEROL FS 2.5 MG/3 ML VIAL.NEB NEB SCH ×4 (01:04→20:26)
[2016-12-12] MEDS: CHLORHEXIDINE GLUCONATE 15 ML UDC MM SCH ×2 (06:26→18:20)
[2016-12-12 07:44] VITALS: BP 116/58
[2016-12-12 07:46] VITALS: BP 116/58
[2016-12-12] MEDS: SENNOSIDES 8.6 MG TABLET GT SCH ×2 (09:00→21:03)
[2016-12-12] MEDS: CHOLECALCIFEROL 1,000 UNIT TABLET (VIT D3) GT SCH (09:00)
[2016-12-12] MEDS: CARBAMAZEPINE 100 MG/5 ML GT SCH ×3 (09:00→17:00)
[2016-12-12] MEDS: HYDROGEN PEROXIDE 480 ML BOTTLE TP SCH ×2 (09:00→21:04)
[2016-12-12] MEDS: FOLIC ACID 1 MG TABLET GT SCH ×2 (09:00→17:00)
[2016-12-12] MEDS: BACLOFEN (10 MG) 10 MG TABLET GT SCH ×3 (09:00→17:00)
[2016-12-12] MEDS: SERTRALINE HCL 25 MG TABLET GT SCH (09:00)
[2016-12-12] MEDS: Z GUARD REMEDY 4 OZ OINT TP SCH ×2 (09:00→21:04)
[2016-12-12] MEDS: LACTOBACILLUS RHAMNOSUS GG 1 EACH CAP.SPRINK PO SCH ×2 (09:00→17:00)
[2016-12-12] MEDS: HEPARIN SODIUM, PORCINE 5000 UNITS/1 ML VIAL SQ SCH ×2 (09:00→21:04)
[2016-12-12] MEDS: LEVETIRACETAM SOL (5 ML) 100 MG/ML UDC GT SCH ×2 (09:00→21:03)
[2016-12-12 19:18] VITALS: BP 108/67
[2016-12-12] MEDS: POLYETHYLENE GLYCOL 3350 17 GM POWD.PACK GT SCH (22:37)
[2016-12-13] MEDS: ALBUTEROL FS 2.5 MG/3 ML VIAL.NEB NEB SCH ×4 (01:03→20:03)
[2016-12-13] MEDS: CHLORHEXIDINE GLUCONATE 15 ML UDC MM SCH ×2 (05:44→18:24)
[2016-12-13] MEDS: POLYVINYL ALCOHOL 15 ML BOTTLE EACHEYE SCH ×4 (05:44→23:55)
[2016-12-13 07:31] VITALS: BP 107/61
[2016-12-13] MEDS: BACLOFEN (10 MG) 10 MG TABLET GT SCH ×3 (08:33→17:02)
[2016-12-13] MEDS: FOLIC ACID 1 MG TABLET GT SCH ×2 (08:33→17:02)
[2016-12-13] MEDS: SERTRALINE HCL 25 MG TABLET GT SCH (08:33)
[2016-12-13] MEDS: SENNOSIDES 8.6 MG TABLET GT SCH ×2 (08:33→21:30)
[2016-12-13] MEDS: CARBAMAZEPINE 100 MG/5 ML GT SCH ×3 (08:33→17:02)
[2016-12-13] MEDS: LEVETIRACETAM SOL (5 ML) 100 MG/ML UDC GT SCH ×2 (08:33→21:30)
[2016-12-13] MEDS: CHOLECALCIFEROL 1,000 UNIT TABLET (VIT D3) GT SCH (08:33)
[2016-12-13] MEDS: LACTOBACILLUS RHAMNOSUS GG 1 EACH CAP.SPRINK PO SCH ×2 (08:34→17:02)
[2016-12-13] MEDS: HEPARIN SODIUM, PORCINE 5000 UNITS/1 ML VIAL SQ SCH ×2 (08:34→21:31)
[2016-12-13] MEDS: HYDROGEN PEROXIDE 480 ML BOTTLE TP SCH ×2 (12:00→21:31)
[2016-12-13] MEDS: Z GUARD REMEDY 4 OZ OINT TP SCH ×2 (12:00→21:31)
--- NOTE | 2016-12-13 14:14 | NUR ---
Patient up in her customized wheelchair, mother at the bedside. Fed by staff during meals no s/s of aspiration, no signs of distress. Seen and examined by Dr. Jeff LUCERO given.
[2016-12-13 20:11] VITALS: BP 108/68
[2016-12-13] MEDS: POLYETHYLENE GLYCOL 3350 17 GM POWD.PACK GT SCH (21:31)
[2016-12-14] MEDS: ALBUTEROL FS 2.5 MG/3 ML VIAL.NEB NEB SCH ×4 (01:29→19:34)
[2016-12-14] MEDS: CHLORHEXIDINE GLUCONATE 15 ML UDC MM SCH ×2 (05:04→17:46)
[2016-12-14] MEDS: POLYVINYL ALCOHOL 15 ML BOTTLE EACHEYE SCH ×4 (05:04→23:42)
[2016-12-14 07:56] VITALS: BP 104/59
[2016-12-14] MEDS: BACLOFEN (10 MG) 10 MG TABLET GT SCH ×3 (08:10→17:46)
[2016-12-14] MEDS: FOLIC ACID 1 MG TABLET GT SCH ×2 (08:10→17:46)
[2016-12-14] MEDS: LEVETIRACETAM SOL (5 ML) 100 MG/ML UDC GT SCH ×2 (08:10→21:07)
[2016-12-14] MEDS: SENNOSIDES 8.6 MG TABLET GT SCH ×2 (08:11→21:07)
[2016-12-14] MEDS: CARBAMAZEPINE 100 MG/5 ML GT SCH ×3 (08:11→17:46)
[2016-12-14] MEDS: CHOLECALCIFEROL 1,000 UNIT TABLET (VIT D3) GT SCH (08:12)
[2016-12-14] MEDS: SERTRALINE HCL 25 MG TABLET GT SCH (08:12)
[2016-12-14] MEDS: LACTOBACILLUS RHAMNOSUS GG 1 EACH CAP.SPRINK PO SCH ×2 (08:12→17:46)
[2016-12-14] MEDS: HEPARIN SODIUM, PORCINE 5000 UNITS/1 ML VIAL SQ SCH ×2 (08:14→21:07)
[2016-12-14] MEDS: HYDROGEN PEROXIDE 480 ML BOTTLE TP SCH ×2 (08:16→21:07)
[2016-12-14] MEDS: Z GUARD REMEDY 4 OZ OINT TP SCH ×2 (08:36→21:07)
[2016-12-14] MEDS: MAGNESIUM HYDROXIDE 30 ML UDC GT PRN (18:28)
[2016-12-14 19:54] VITALS: BP 113/71
[2016-12-14] MEDS: POLYETHYLENE GLYCOL 3350 17 GM POWD.PACK GT SCH (21:07)
[2016-12-15] MEDS: ALBUTEROL FS 2.5 MG/3 ML VIAL.NEB NEB SCH ×4 (01:17→19:37)
[2016-12-15] MEDS: POLYVINYL ALCOHOL 15 ML BOTTLE EACHEYE SCH ×4 (05:52→23:14)
[2016-12-15] MEDS: CHLORHEXIDINE GLUCONATE 15 ML UDC MM SCH ×2 (05:52→18:45)
[2016-12-15 08:01] VITALS: BP 111/62
[2016-12-15] MEDS: BACLOFEN (10 MG) 10 MG TABLET GT SCH ×3 (08:50→17:02)
[2016-12-15] MEDS: FOLIC ACID 1 MG TABLET GT SCH ×2 (08:50→17:02)
[2016-12-15] MEDS: LEVETIRACETAM SOL (5 ML) 100 MG/ML UDC GT SCH ×2 (08:50→21:01)
[2016-12-15] MEDS: LACTOBACILLUS RHAMNOSUS GG 1 EACH CAP.SPRINK PO SCH ×2 (08:50→17:02)
[2016-12-15] MEDS: SERTRALINE HCL 25 MG TABLET GT SCH (08:50)
[2016-12-15] MEDS: CARBAMAZEPINE 100 MG/5 ML GT SCH ×3 (08:50→17:02)
[2016-12-15] MEDS: CHOLECALCIFEROL 1,000 UNIT TABLET (VIT D3) GT SCH (08:50)
[2016-12-15] MEDS: SENNOSIDES 8.6 MG TABLET GT SCH ×2 (08:50→21:01)
[2016-12-15] MEDS: HEPARIN SODIUM, PORCINE 5000 UNITS/1 ML VIAL SQ SCH ×2 (08:51→21:01)
[2016-12-15] MEDS: HYDROGEN PEROXIDE 480 ML BOTTLE TP SCH ×2 (09:00→21:01)
[2016-12-15] MEDS: Z GUARD REMEDY 4 OZ OINT TP SCH (09:00)
[2016-12-15 19:45] VITALS: BP 118/66
[2016-12-15] MEDS: POLYETHYLENE GLYCOL 3350 17 GM POWD.PACK GT SCH (21:01)
[2016-12-16] MEDS: ALBUTEROL FS 2.5 MG/3 ML VIAL.NEB NEB SCH ×4 (02:12→19:23)
[2016-12-16] MEDS: POLYVINYL ALCOHOL 15 ML BOTTLE EACHEYE SCH ×3 (05:12→17:05)
[2016-12-16] MEDS: CHLORHEXIDINE GLUCONATE 15 ML UDC MM SCH ×2 (05:12→17:05)
[2016-12-16 07:36] VITALS: BP 102/53
[2016-12-16] MEDS: SERTRALINE HCL 25 MG TABLET GT SCH (08:41)
[2016-12-16] MEDS: BACLOFEN (10 MG) 10 MG TABLET GT SCH ×3 (08:41→17:05)
[2016-12-16] MEDS: FOLIC ACID 1 MG TABLET GT SCH ×2 (08:41→17:05)
[2016-12-16] MEDS: LACTOBACILLUS RHAMNOSUS GG 1 EACH CAP.SPRINK PO SCH ×2 (08:41→17:05)
[2016-12-16] MEDS: CHOLECALCIFEROL 1,000 UNIT TABLET (VIT D3) GT SCH (08:41)
[2016-12-16] MEDS: CARBAMAZEPINE 100 MG/5 ML GT SCH ×3 (08:41→17:05)
[2016-12-16] MEDS: SENNOSIDES 8.6 MG TABLET GT SCH ×2 (08:41→20:33)
[2016-12-16] MEDS: LEVETIRACETAM SOL (5 ML) 100 MG/ML UDC GT SCH ×2 (08:41→20:33)
[2016-12-16] MEDS: HYDROGEN PEROXIDE 480 ML BOTTLE TP SCH ×2 (08:42→21:54)
[2016-12-16] MEDS: HEPARIN SODIUM, PORCINE 5000 UNITS/1 ML VIAL SQ SCH ×2 (08:42→20:45)
[2016-12-16 19:53] VITALS: BP 131/69
[2016-12-16] MEDS: POLYETHYLENE GLYCOL 3350 17 GM POWD.PACK GT SCH (21:54)
[2016-12-17] MEDS: POLYVINYL ALCOHOL 15 ML BOTTLE EACHEYE SCH ×4 (00:13→18:17)
[2016-12-17] MEDS: ALBUTEROL FS 2.5 MG/3 ML VIAL.NEB NEB SCH ×5 (01:21→20:04)
[2016-12-17] MEDS: CHLORHEXIDINE GLUCONATE 15 ML UDC MM SCH ×2 (06:20→18:20)
[2016-12-17 07:46] VITALS: BP 129/89
[2016-12-17] MEDS: HYDROGEN PEROXIDE 480 ML BOTTLE TP SCH ×2 (09:00→20:26)
[2016-12-17] MEDS: FOLIC ACID 1 MG TABLET GT SCH ×2 (09:29→17:00)
[2016-12-17] MEDS: LEVETIRACETAM SOL (5 ML) 100 MG/ML UDC GT SCH ×2 (09:29→20:25)
[2016-12-17] MEDS: BACLOFEN (10 MG) 10 MG TABLET GT SCH ×3 (09:30→17:00)
[2016-12-17] MEDS: SENNOSIDES 8.6 MG TABLET GT SCH ×2 (09:30→20:25)
[2016-12-17] MEDS: CARBAMAZEPINE 100 MG/5 ML GT SCH ×3 (09:30→17:00)
[2016-12-17] MEDS: CHOLECALCIFEROL 1,000 UNIT TABLET (VIT D3) GT SCH (09:30)
[2016-12-17] MEDS: HEPARIN SODIUM, PORCINE 5000 UNITS/1 ML VIAL SQ SCH ×2 (09:31→20:25)
[2016-12-17] MEDS: LACTOBACILLUS RHAMNOSUS GG 1 EACH CAP.SPRINK PO SCH ×2 (09:31→17:00)
[2016-12-17] MEDS: SERTRALINE HCL 25 MG TABLET GT SCH (09:31)
[2016-12-17 20:02] VITALS: BP 106/63
[2016-12-17] MEDS: POLYETHYLENE GLYCOL 3350 17 GM POWD.PACK GT SCH (21:22)
[2016-12-18] MEDS: POLYVINYL ALCOHOL 15 ML BOTTLE EACHEYE SCH ×4 (00:50→17:41)
[2016-12-18] MEDS: ALBUTEROL FS 2.5 MG/3 ML VIAL.NEB NEB SCH ×4 (01:00→20:18)
[2016-12-18] MEDS: CHLORHEXIDINE GLUCONATE 15 ML UDC MM SCH ×2 (05:29→17:41)
--- NOTE | 2016-12-18 06:15 | NUR ---
Pt noted with really strong foul odor urine during shift, despite all water flushes given as ordered , adequate intake and output noted, pt 's vitals wnl, no fever noted, good cherelle care provided at all times q diaper change, garment turner nurse made aware, and will continue to monitor pt. Pt's mom at bs this time, updated and made aware regarding pt's condition and urine smell.
[2016-12-18 08:04] VITALS: BP 127/65
[2016-12-18] MEDS: SENNOSIDES 8.6 MG TABLET GT SCH ×2 (08:58→21:47)
[2016-12-18] MEDS: FOLIC ACID 1 MG TABLET GT SCH ×2 (08:58→16:37)
[2016-12-18] MEDS: CARBAMAZEPINE 100 MG/5 ML GT SCH ×3 (08:58→16:37)
[2016-12-18] MEDS: LACTOBACILLUS RHAMNOSUS GG 1 EACH CAP.SPRINK PO SCH ×2 (08:58→16:37)
[2016-12-18] MEDS: BACLOFEN (10 MG) 10 MG TABLET GT SCH ×3 (08:58→16:37)
[2016-12-18] MEDS: HEPARIN SODIUM, PORCINE 5000 UNITS/1 ML VIAL SQ SCH ×2 (08:58→21:48)
[2016-12-18] MEDS: LEVETIRACETAM SOL (5 ML) 100 MG/ML UDC GT SCH ×2 (08:58→21:47)
[2016-12-18] MEDS: CHOLECALCIFEROL 1,000 UNIT TABLET (VIT D3) GT SCH (08:58)
[2016-12-18] MEDS: SERTRALINE HCL 25 MG TABLET GT SCH (08:58)
[2016-12-18] MEDS: HYDROGEN PEROXIDE 480 ML BOTTLE TP SCH ×2 (08:59→21:48)
[2016-12-18] MEDS: Z GUARD REMEDY 4 OZ OINT TP SCH ×2 (09:00→21:48)
[2016-12-18 19:46] VITALS: BP 107/69
[2016-12-18] MEDS: POLYETHYLENE GLYCOL 3350 17 GM POWD.PACK GT SCH (21:48)
[2016-12-19] MEDS: POLYVINYL ALCOHOL 15 ML BOTTLE EACHEYE SCH ×5 (00:45→23:04)
[2016-12-19] MEDS: ALBUTEROL FS 2.5 MG/3 ML VIAL.NEB NEB SCH ×4 (02:14→20:09)
[2016-12-19] MEDS: CHLORHEXIDINE GLUCONATE 15 ML UDC MM SCH ×2 (05:57→17:31)
[2016-12-19 08:39] VITALS: BP 116/61
[2016-12-19] MEDS: LEVETIRACETAM SOL (5 ML) 100 MG/ML UDC GT SCH ×2 (08:54→21:05)
[2016-12-19] MEDS: LACTOBACILLUS RHAMNOSUS GG 1 EACH CAP.SPRINK PO SCH ×2 (08:54→17:31)
[2016-12-19] MEDS: SERTRALINE HCL 25 MG TABLET GT SCH (08:54)
[2016-12-19] MEDS: CARBAMAZEPINE 100 MG/5 ML GT SCH ×3 (08:54→17:31)
[2016-12-19] MEDS: CHOLECALCIFEROL 1,000 UNIT TABLET (VIT D3) GT SCH (08:54)
[2016-12-19] MEDS: BACLOFEN (10 MG) 10 MG TABLET GT SCH ×3 (08:54→17:31)
[2016-12-19] MEDS: SENNOSIDES 8.6 MG TABLET GT SCH ×2 (08:54→21:05)
[2016-12-19] MEDS: FOLIC ACID 1 MG TABLET GT SCH ×2 (08:54→17:31)
[2016-12-19] MEDS: HEPARIN SODIUM, PORCINE 5000 UNITS/1 ML VIAL SQ SCH ×2 (08:56→21:05)
[2016-12-19] MEDS: HYDROGEN PEROXIDE 480 ML BOTTLE TP SCH ×2 (08:56→21:05)
[2016-12-19] MEDS: Z GUARD REMEDY 4 OZ OINT TP SCH ×2 (08:56→21:05)
[2016-12-19 19:43] VITALS: BP 116/54
[2016-12-19] MEDS: POLYETHYLENE GLYCOL 3350 17 GM POWD.PACK GT SCH (21:05)
[2016-12-20] MEDS: ALBUTEROL FS 2.5 MG/3 ML VIAL.NEB NEB SCH ×4 (00:46→19:37)
[2016-12-20] MEDS: CHLORHEXIDINE GLUCONATE 15 ML UDC MM SCH ×2 (05:32→17:18)
[2016-12-20] MEDS: POLYVINYL ALCOHOL 15 ML BOTTLE EACHEYE SCH ×4 (05:32→23:37)
[2016-12-20 07:35] VITALS: BP 122/61
[2016-12-20] MEDS: FOLIC ACID 1 MG TABLET GT SCH ×2 (08:44→16:30)
[2016-12-20] MEDS: LEVETIRACETAM SOL (5 ML) 100 MG/ML UDC GT SCH ×2 (08:44→21:03)
[2016-12-20] MEDS: LACTOBACILLUS RHAMNOSUS GG 1 EACH CAP.SPRINK PO SCH ×2 (08:44→16:30)
[2016-12-20] MEDS: CARBAMAZEPINE 100 MG/5 ML GT SCH ×3 (08:44→16:30)
[2016-12-20] MEDS: SERTRALINE HCL 25 MG TABLET GT SCH (08:44)
[2016-12-20] MEDS: BACLOFEN (10 MG) 10 MG TABLET GT SCH ×3 (08:44→16:30)
[2016-12-20] MEDS: SENNOSIDES 8.6 MG TABLET GT SCH ×2 (08:44→21:03)
[2016-12-20] MEDS: CHOLECALCIFEROL 1,000 UNIT TABLET (VIT D3) GT SCH (08:44)
[2016-12-20] MEDS: HEPARIN SODIUM, PORCINE 5000 UNITS/1 ML VIAL SQ SCH ×2 (08:45→21:11)
[2016-12-20] MEDS: CHLORHEXIDINE GLUCONATE 4% 118 ML BOTTLE TP SCH (08:45)
[2016-12-20] MEDS: Z GUARD REMEDY 4 OZ OINT TP SCH ×2 (09:00→21:03)
[2016-12-20] MEDS: HYDROGEN PEROXIDE 480 ML BOTTLE TP SCH ×2 (09:00→21:03)
[2016-12-20 20:05] VITALS: BP 116/68
[2016-12-20] MEDS: POLYETHYLENE GLYCOL 3350 17 GM POWD.PACK GT SCH (21:03)
[2016-12-21] MEDS: ALBUTEROL FS 2.5 MG/3 ML VIAL.NEB NEB SCH ×4 (01:00→20:29)
[2016-12-21] MEDS: POLYVINYL ALCOHOL 15 ML BOTTLE EACHEYE SCH ×3 (05:12→23:50)
[2016-12-21] MEDS: CHLORHEXIDINE GLUCONATE 15 ML UDC MM SCH (05:12)
[2016-12-21 07:34] VITALS: BP 117/71
[2016-12-21] MEDS: CHOLECALCIFEROL 1,000 UNIT TABLET (VIT D3) GT SCH (09:08)
[2016-12-21] MEDS: BACLOFEN (10 MG) 10 MG TABLET GT SCH ×3 (09:08→17:14)
[2016-12-21] MEDS: SERTRALINE HCL 25 MG TABLET GT SCH (09:08)
[2016-12-21] MEDS: CARBAMAZEPINE 100 MG/5 ML GT SCH ×3 (09:08→17:14)
[2016-12-21] MEDS: FOLIC ACID 1 MG TABLET GT SCH ×2 (09:08→17:14)
[2016-12-21] MEDS: SENNOSIDES 8.6 MG TABLET GT SCH ×2 (09:08→20:50)
[2016-12-21] MEDS: LACTOBACILLUS RHAMNOSUS GG 1 EACH CAP.SPRINK PO SCH ×2 (09:08→17:14)
[2016-12-21] MEDS: LEVETIRACETAM SOL (5 ML) 100 MG/ML UDC GT SCH ×2 (09:08→20:50)
[2016-12-21] MEDS: CHLORHEXIDINE GLUCONATE 4% 118 ML BOTTLE TP SCH (09:09)
[2016-12-21] MEDS: HEPARIN SODIUM, PORCINE 5000 UNITS/1 ML VIAL SQ SCH ×2 (09:09→20:51)
[2016-12-21] MEDS: Z GUARD REMEDY 4 OZ OINT TP SCH ×2 (09:09→20:51)
[2016-12-21] MEDS: HYDROGEN PEROXIDE 480 ML BOTTLE TP SCH ×2 (09:09→20:51)
[2016-12-21 19:59] VITALS: BP 121/64
[2016-12-21] MEDS: POLYETHYLENE GLYCOL 3350 17 GM POWD.PACK GT SCH (21:07)
[2016-12-22] MEDS: ALBUTEROL FS 2.5 MG/3 ML VIAL.NEB NEB SCH ×4 (01:01→20:15)
[2016-12-22] MEDS: POLYVINYL ALCOHOL 15 ML BOTTLE EACHEYE SCH ×3 (05:37→17:42)
[2016-12-22] MEDS: CHLORHEXIDINE GLUCONATE 15 ML UDC MM SCH ×2 (05:37→17:42)
[2016-12-22 07:56] VITALS: BP 129/59
[2016-12-22] MEDS: BACLOFEN (10 MG) 10 MG TABLET GT SCH ×3 (09:53→17:42)
[2016-12-22] MEDS: FOLIC ACID 1 MG TABLET GT SCH ×2 (09:53→17:42)
[2016-12-22] MEDS: LEVETIRACETAM SOL (5 ML) 100 MG/ML UDC GT SCH ×2 (09:53→21:23)
[2016-12-22] MEDS: LACTOBACILLUS RHAMNOSUS GG 1 EACH CAP.SPRINK PO SCH ×2 (09:53→17:42)
[2016-12-22] MEDS: HEPARIN SODIUM, PORCINE 5000 UNITS/1 ML VIAL SQ SCH ×2 (09:53→21:23)
[2016-12-22] MEDS: CHOLECALCIFEROL 1,000 UNIT TABLET (VIT D3) GT SCH (09:53)
[2016-12-22] MEDS: SENNOSIDES 8.6 MG TABLET GT SCH ×2 (09:53→21:23)
[2016-12-22] MEDS: CARBAMAZEPINE 100 MG/5 ML GT SCH ×3 (09:53→17:42)
[2016-12-22] MEDS: SERTRALINE HCL 25 MG TABLET GT SCH (09:53)
[2016-12-22] MEDS: Z GUARD REMEDY 4 OZ OINT TP SCH ×2 (10:30→21:24)
[2016-12-22] MEDS: HYDROGEN PEROXIDE 480 ML BOTTLE TP SCH ×2 (10:30→21:24)
[2016-12-22 20:08] VITALS: BP 100/60
[2016-12-22] MEDS: POLYETHYLENE GLYCOL 3350 17 GM POWD.PACK GT SCH (21:24)
[2016-12-23] MEDS: ALBUTEROL FS 2.5 MG/3 ML VIAL.NEB NEB SCH ×4 (00:41→19:46)
[2016-12-23] MEDS: POLYVINYL ALCOHOL 15 ML BOTTLE EACHEYE SCH ×4 (06:09→17:33)
[2016-12-23] MEDS: CHLORHEXIDINE GLUCONATE 15 ML UDC MM SCH ×2 (06:09→17:33)
[2016-12-23 07:44] VITALS: BP 118/82
[2016-12-23] MEDS: HEPARIN SODIUM, PORCINE 5000 UNITS/1 ML VIAL SQ SCH ×2 (09:03→21:11)
[2016-12-23] MEDS: FOLIC ACID 1 MG TABLET GT SCH ×2 (09:03→17:33)
[2016-12-23] MEDS: LACTOBACILLUS RHAMNOSUS GG 1 EACH CAP.SPRINK PO SCH ×2 (09:03→17:33)
[2016-12-23] MEDS: LEVETIRACETAM SOL (5 ML) 100 MG/ML UDC GT SCH ×2 (09:03→21:10)
[2016-12-23] MEDS: BACLOFEN (10 MG) 10 MG TABLET GT SCH ×3 (09:03→17:33)
[2016-12-23] MEDS: CARBAMAZEPINE 100 MG/5 ML GT SCH ×3 (09:03→17:33)
[2016-12-23] MEDS: SENNOSIDES 8.6 MG TABLET GT SCH ×2 (09:03→21:10)
[2016-12-23] MEDS: SERTRALINE HCL 25 MG TABLET GT SCH (09:03)
[2016-12-23] MEDS: CHOLECALCIFEROL 1,000 UNIT TABLET (VIT D3) GT SCH (09:03)
[2016-12-23] MEDS: Z GUARD REMEDY 4 OZ OINT TP SCH ×2 (12:30→21:11)
[2016-12-23] MEDS: HYDROGEN PEROXIDE 480 ML BOTTLE TP SCH ×2 (12:30→21:11)
[2016-12-23 19:44] VITALS: BP 106/64
[2016-12-23] MEDS: POLYETHYLENE GLYCOL 3350 17 GM POWD.PACK GT SCH (21:11)
[2016-12-24] MEDS: ALBUTEROL FS 2.5 MG/3 ML VIAL.NEB NEB SCH ×4 (01:54→20:03)
[2016-12-24] MEDS: POLYVINYL ALCOHOL 15 ML BOTTLE EACHEYE SCH ×5 (06:03→23:52)
[2016-12-24] MEDS: CHLORHEXIDINE GLUCONATE 15 ML UDC MM SCH ×2 (06:04→17:24)
[2016-12-24 07:36] VITALS: BP 113/72
[2016-12-24] MEDS: LEVETIRACETAM SOL (5 ML) 100 MG/ML UDC GT SCH ×2 (09:29→20:48)
[2016-12-24] MEDS: SENNOSIDES 8.6 MG TABLET GT SCH ×2 (09:29→20:48)
[2016-12-24] MEDS: CHOLECALCIFEROL 1,000 UNIT TABLET (VIT D3) GT SCH (09:29)
[2016-12-24] MEDS: FOLIC ACID 1 MG TABLET GT SCH ×2 (09:29→17:24)
[2016-12-24] MEDS: LACTOBACILLUS RHAMNOSUS GG 1 EACH CAP.SPRINK PO SCH (09:29)
[2016-12-24] MEDS: BACLOFEN (10 MG) 10 MG TABLET GT SCH ×3 (09:29→17:24)
[2016-12-24] MEDS: SERTRALINE HCL 25 MG TABLET GT SCH (09:29)
[2016-12-24] MEDS: CARBAMAZEPINE 100 MG/5 ML GT SCH ×3 (09:29→17:24)
[2016-12-24] MEDS: Z GUARD REMEDY 4 OZ OINT TP SCH ×2 (09:30→21:45)
[2016-12-24] MEDS: HYDROGEN PEROXIDE 480 ML BOTTLE TP SCH ×2 (09:30→21:44)
[2016-12-24] MEDS: HEPARIN SODIUM, PORCINE 5000 UNITS/1 ML VIAL SQ SCH ×2 (09:31→20:49)
[2016-12-24] MEDS: POLYETHYLENE GLYCOL 3350 17 GM POWD.PACK GT SCH (21:45)
[2016-12-25 00:15] VITALS: BP 117/68
[2016-12-25] MEDS: ALBUTEROL FS 2.5 MG/3 ML VIAL.NEB NEB SCH ×4 (00:42→20:01)
[2016-12-25] MEDS: CHLORHEXIDINE GLUCONATE 15 ML UDC MM SCH ×2 (05:44→18:05)
[2016-12-25] MEDS: POLYVINYL ALCOHOL 15 ML BOTTLE EACHEYE SCH ×3 (05:44→18:05)
[2016-12-25 07:27] VITALS: BP 110/70
[2016-12-25] MEDS: HYDROGEN PEROXIDE 480 ML BOTTLE TP SCH ×2 (08:36→21:03)
[2016-12-25] MEDS: LEVETIRACETAM SOL (5 ML) 100 MG/ML UDC GT SCH ×2 (08:36→21:03)
[2016-12-25] MEDS: SERTRALINE HCL 25 MG TABLET GT SCH (08:36)
[2016-12-25] MEDS: FOLIC ACID 1 MG TABLET GT SCH ×2 (08:36→17:00)
[2016-12-25] MEDS: BACLOFEN (10 MG) 10 MG TABLET GT SCH ×3 (08:36→17:00)
[2016-12-25] MEDS: Z GUARD REMEDY 4 OZ OINT TP SCH ×2 (08:36→21:03)
[2016-12-25] MEDS: CHOLECALCIFEROL 1,000 UNIT TABLET (VIT D3) GT SCH (08:36)
[2016-12-25] MEDS: CARBAMAZEPINE 100 MG/5 ML GT SCH ×3 (08:36→17:00)
[2016-12-25] MEDS: HEPARIN SODIUM, PORCINE 5000 UNITS/1 ML VIAL SQ SCH ×2 (08:36→21:03)
[2016-12-25] MEDS: SENNOSIDES 8.6 MG TABLET GT SCH ×2 (08:36→21:03)
[2016-12-25] MEDS: POLYETHYLENE GLYCOL 3350 17 GM POWD.PACK GT SCH (21:03)
[2016-12-26] MEDS: POLYVINYL ALCOHOL 15 ML BOTTLE EACHEYE SCH ×4 (00:08→17:54)
[2016-12-26 01:26] VITALS: BP 132/52
[2016-12-26] MEDS: ALBUTEROL FS 2.5 MG/3 ML VIAL.NEB NEB SCH ×4 (01:30→19:52)
[2016-12-26] MEDS: CHLORHEXIDINE GLUCONATE 15 ML UDC MM SCH ×2 (05:43→17:54)
[2016-12-26 07:39] VITALS: BP 116/75
[2016-12-26] MEDS: CARBAMAZEPINE 100 MG/5 ML GT SCH ×3 (09:00→17:54)
[2016-12-26] MEDS: CHOLECALCIFEROL 1,000 UNIT TABLET (VIT D3) GT SCH (09:00)
[2016-12-26] MEDS: SERTRALINE HCL 25 MG TABLET GT SCH (09:00)
[2016-12-26] MEDS: FOLIC ACID 1 MG TABLET GT SCH ×2 (09:00→17:54)
[2016-12-26] MEDS: HEPARIN SODIUM, PORCINE 5000 UNITS/1 ML VIAL SQ SCH ×2 (09:00→21:19)
[2016-12-26] MEDS: SENNOSIDES 8.6 MG TABLET GT SCH ×2 (09:00→21:17)
[2016-12-26] MEDS: LEVETIRACETAM SOL (5 ML) 100 MG/ML UDC GT SCH ×2 (09:00→21:17)
[2016-12-26] MEDS: BACLOFEN (10 MG) 10 MG TABLET GT SCH ×3 (09:00→17:54)
[2016-12-26] MEDS: HYDROGEN PEROXIDE 480 ML BOTTLE TP SCH ×2 (11:30→21:14)
[2016-12-26] MEDS: Z GUARD REMEDY 4 OZ OINT TP SCH ×2 (11:30→21:14)
--- NOTE | 2016-12-26 14:19 | NUR ---
IDT meeting held, family unable to attend. Current orders, new medications and treatments reviewed by the team. NNO given at this time.
[2016-12-26 20:15] VITALS: BP 122/76
[2016-12-26] MEDS: POLYETHYLENE GLYCOL 3350 17 GM POWD.PACK GT SCH (21:22)
[2016-12-27] MEDS: POLYVINYL ALCOHOL 15 ML BOTTLE EACHEYE SCH ×4 (00:10→18:00)
[2016-12-27] MEDS: ALBUTEROL FS 2.5 MG/3 ML VIAL.NEB NEB SCH ×4 (02:05→20:06)
[2016-12-27] MEDS: CHLORHEXIDINE GLUCONATE 15 ML UDC MM SCH ×2 (05:27→18:00)
[2016-12-27 07:28] VITALS: BP 135/64
[2016-12-27] MEDS: LEVETIRACETAM SOL (5 ML) 100 MG/ML UDC GT SCH ×2 (08:51→21:04)
[2016-12-27] MEDS: SENNOSIDES 8.6 MG TABLET GT SCH ×2 (08:51→21:04)
[2016-12-27] MEDS: CHOLECALCIFEROL 1,000 UNIT TABLET (VIT D3) GT SCH (08:51)
[2016-12-27] MEDS: SERTRALINE HCL 25 MG TABLET GT SCH (08:51)
[2016-12-27] MEDS: CARBAMAZEPINE 100 MG/5 ML GT SCH ×3 (08:51→17:00)
[2016-12-27] MEDS: FOLIC ACID 1 MG TABLET GT SCH ×2 (08:51→17:00)
[2016-12-27] MEDS: BACLOFEN (10 MG) 10 MG TABLET GT SCH ×3 (08:51→17:00)
[2016-12-27] MEDS: HEPARIN SODIUM, PORCINE 5000 UNITS/1 ML VIAL SQ SCH ×2 (08:52→21:05)
[2016-12-27] MEDS: Z GUARD REMEDY 4 OZ OINT TP SCH ×2 (08:52→21:05)
[2016-12-27] MEDS: HYDROGEN PEROXIDE 480 ML BOTTLE TP SCH ×2 (08:52→21:05)
--- NOTE | 2016-12-27 10:00 | NUR ---
COMMUNICATIONS MARKETING INTERN reported sacral excoriation with open area, 1.5x 1.0 cm, continue with current treatment of Z-guard and covered with Mepilex. Wound consult ordered.
--- NOTE | 2016-12-27 13:40 | NUR ---
Dr. Aguilar seen and examined resident, made aware of the sacral excoriation with open area. MD in agreement with current treatment plan and wound consult. No other order given.
[2016-12-27 19:58] VITALS: BP 101/68
[2016-12-27] MEDS: POLYETHYLENE GLYCOL 3350 17 GM POWD.PACK GT SCH (21:05)
[2016-12-28] MEDS: POLYVINYL ALCOHOL 15 ML BOTTLE EACHEYE SCH ×4 (00:25→17:18)
[2016-12-28] MEDS: ALBUTEROL FS 2.5 MG/3 ML VIAL.NEB NEB SCH ×4 (02:04→20:25)
[2016-12-28] MEDS: CHLORHEXIDINE GLUCONATE 15 ML UDC MM SCH ×2 (05:25→17:18)
[2016-12-28 07:59] VITALS: BP 118/68
[2016-12-28] MEDS: SERTRALINE HCL 25 MG TABLET GT SCH (08:33)
[2016-12-28] MEDS: CHOLECALCIFEROL 1,000 UNIT TABLET (VIT D3) GT SCH (08:33)
[2016-12-28] MEDS: CARBAMAZEPINE 100 MG/5 ML GT SCH ×3 (08:33→16:22)
[2016-12-28] MEDS: LEVETIRACETAM SOL (5 ML) 100 MG/ML UDC GT SCH ×2 (08:33→20:20)
[2016-12-28] MEDS: SENNOSIDES 8.6 MG TABLET GT SCH ×2 (08:33→20:20)
[2016-12-28] MEDS: BACLOFEN (10 MG) 10 MG TABLET GT SCH ×3 (08:33→16:23)
[2016-12-28] MEDS: FOLIC ACID 1 MG TABLET GT SCH ×2 (08:33→16:22)
[2016-12-28] MEDS: Z GUARD REMEDY 4 OZ OINT TP SCH ×2 (09:00→20:23)
[2016-12-28] MEDS: HEPARIN SODIUM, PORCINE 5000 UNITS/1 ML VIAL SQ SCH ×2 (09:00→20:22)
[2016-12-28] MEDS: HYDROGEN PEROXIDE 480 ML BOTTLE TP SCH ×2 (09:00→20:22)
[2016-12-28 20:01] VITALS: BP 128/76
[2016-12-28] MEDS: POLYETHYLENE GLYCOL 3350 17 GM POWD.PACK GT SCH (21:55)
[2016-12-29] MEDS: POLYVINYL ALCOHOL 15 ML BOTTLE EACHEYE SCH ×4 (00:27→18:18)
[2016-12-29] MEDS: ALBUTEROL FS 2.5 MG/3 ML VIAL.NEB NEB SCH ×4 (01:08→20:08)
[2016-12-29] MEDS: CHLORHEXIDINE GLUCONATE 15 ML UDC MM SCH ×2 (06:00→18:18)
[2016-12-29 07:33] VITALS: BP 139/80
[2016-12-29] MEDS: FOLIC ACID 1 MG TABLET GT SCH ×2 (08:30→17:29)
[2016-12-29] MEDS: CARBAMAZEPINE 100 MG/5 ML GT SCH ×3 (08:30→17:29)
[2016-12-29] MEDS: BACLOFEN (10 MG) 10 MG TABLET GT SCH ×3 (08:30→17:29)
[2016-12-29] MEDS: LEVETIRACETAM SOL (5 ML) 100 MG/ML UDC GT SCH ×2 (08:30→20:22)
[2016-12-29] MEDS: CHOLECALCIFEROL 1,000 UNIT TABLET (VIT D3) GT SCH (08:30)
[2016-12-29] MEDS: SENNOSIDES 8.6 MG TABLET GT SCH ×2 (08:30→20:22)
[2016-12-29] MEDS: SERTRALINE HCL 25 MG TABLET GT SCH (08:30)
[2016-12-29] MEDS: Z GUARD REMEDY 4 OZ OINT TP SCH ×2 (08:35→20:22)
[2016-12-29] MEDS: HYDROGEN PEROXIDE 480 ML BOTTLE TP SCH ×2 (08:35→20:22)
[2016-12-29] MEDS: HEPARIN SODIUM, PORCINE 5000 UNITS/1 ML VIAL SQ SCH ×2 (08:35→20:22)
--- NOTE | 2016-12-29 13:41 | NUR ---
WOUND CARE CONSULT: PT SEEN FOR SOME EXCORIATION TO GLUTEAL CREASE/SACRAL AREA. CONCUR WITH CURRENT TREATMENT OF Z GUARD WITH MEPILEX TO AREA. SKIN TO BE KEPT CLEAN AND DRY. DISCUSSED WITH NURSING STAFF. ALL SKIN PROTECTION MEASURES IN PLACE. WILL SEE PRN. IN AGREEMENT WITH PLAN OF CARE.
[2016-12-29 19:50] VITALS: BP 118/57
[2016-12-29] MEDS: POLYETHYLENE GLYCOL 3350 17 GM POWD.PACK GT SCH (22:24)
[2016-12-30] MEDS: POLYVINYL ALCOHOL 15 ML BOTTLE EACHEYE SCH ×4 (00:07→17:40)
[2016-12-30] MEDS: ALBUTEROL FS 2.5 MG/3 ML VIAL.NEB NEB SCH ×4 (01:48→19:30)
[2016-12-30] MEDS: CHLORHEXIDINE GLUCONATE 15 ML UDC MM SCH ×2 (05:37→17:40)
[2016-12-30 07:51] VITALS: BP 118/62
[2016-12-30] MEDS: SENNOSIDES 8.6 MG TABLET GT SCH ×2 (08:30→20:17)
[2016-12-30] MEDS: LEVETIRACETAM SOL (5 ML) 100 MG/ML UDC GT SCH ×2 (08:30→20:17)
[2016-12-30] MEDS: BACLOFEN (10 MG) 10 MG TABLET GT SCH ×3 (08:30→17:40)
[2016-12-30] MEDS: CARBAMAZEPINE 100 MG/5 ML GT SCH ×3 (08:30→17:40)
[2016-12-30] MEDS: FOLIC ACID 1 MG TABLET GT SCH ×2 (08:30→17:40)
[2016-12-30] MEDS: CHOLECALCIFEROL 1,000 UNIT TABLET (VIT D3) GT SCH (08:30)
[2016-12-30] MEDS: SERTRALINE HCL 25 MG TABLET GT SCH (08:30)
[2016-12-30] MEDS: HYDROGEN PEROXIDE 480 ML BOTTLE TP SCH ×2 (08:30→20:19)
[2016-12-30] MEDS: HEPARIN SODIUM, PORCINE 5000 UNITS/1 ML VIAL SQ SCH ×2 (08:30→20:19)
[2016-12-30] MEDS: Z GUARD REMEDY 4 OZ OINT TP SCH ×2 (08:31→20:19)
[2016-12-30 19:42] VITALS: BP 95/65
[2016-12-30] MEDS: POLYETHYLENE GLYCOL 3350 17 GM POWD.PACK GT SCH (21:38)
[2016-12-31] MEDS: POLYVINYL ALCOHOL 15 ML BOTTLE EACHEYE SCH ×4 (00:06→18:07)
[2016-12-31] MEDS: ALBUTEROL FS 2.5 MG/3 ML VIAL.NEB NEB SCH ×4 (01:37→19:12)
[2016-12-31] MEDS: CHLORHEXIDINE GLUCONATE 15 ML UDC MM SCH ×2 (05:56→18:07)
[2016-12-31 08:17] VITALS: BP 110/57
[2016-12-31] MEDS: FOLIC ACID 1 MG TABLET GT SCH ×2 (08:44→16:52)
[2016-12-31] MEDS: SERTRALINE HCL 25 MG TABLET GT SCH (08:44)
[2016-12-31] MEDS: LEVETIRACETAM SOL (5 ML) 100 MG/ML UDC GT SCH ×2 (08:44→21:09)
[2016-12-31] MEDS: BACLOFEN (10 MG) 10 MG TABLET GT SCH ×3 (08:44→16:52)
[2016-12-31] MEDS: CHOLECALCIFEROL 1,000 UNIT TABLET (VIT D3) GT SCH (08:44)
[2016-12-31] MEDS: CARBAMAZEPINE 100 MG/5 ML GT SCH ×3 (08:44→16:52)
[2016-12-31] MEDS: SENNOSIDES 8.6 MG TABLET GT SCH ×2 (08:44→21:09)
[2016-12-31] MEDS: HEPARIN SODIUM, PORCINE 5000 UNITS/1 ML VIAL SQ SCH ×2 (08:45→21:10)
[2016-12-31] MEDS: HYDROGEN PEROXIDE 480 ML BOTTLE TP SCH ×2 (08:46→21:10)
[2016-12-31] MEDS: Z GUARD REMEDY 4 OZ OINT TP SCH ×2 (08:46→21:10)
[2016-12-31 19:23] VITALS: BP 98/65
[2016-12-31] MEDS: POLYETHYLENE GLYCOL 3350 17 GM POWD.PACK GT SCH (21:10)
[2017-01-01] MEDS: POLYVINYL ALCOHOL 15 ML BOTTLE EACHEYE SCH ×4 (00:02→17:35)
[2017-01-01] MEDS: ALBUTEROL FS 2.5 MG/3 ML VIAL.NEB NEB SCH ×4 (02:31→19:05)
[2017-01-01] MEDS: CHLORHEXIDINE GLUCONATE 15 ML UDC MM SCH ×2 (05:33→17:35)
[2017-01-01 07:41] VITALS: BP 122/92
[2017-01-01] MEDS: CHOLECALCIFEROL 1,000 UNIT TABLET (VIT D3) GT SCH (08:48)
[2017-01-01] MEDS: LEVETIRACETAM SOL (5 ML) 100 MG/ML UDC GT SCH ×2 (08:48→21:22)
[2017-01-01] MEDS: BACLOFEN (10 MG) 10 MG TABLET GT SCH ×3 (08:48→17:34)
[2017-01-01] MEDS: FOLIC ACID 1 MG TABLET GT SCH ×2 (08:48→17:34)
[2017-01-01] MEDS: SERTRALINE HCL 25 MG TABLET GT SCH (08:48)
[2017-01-01] MEDS: CARBAMAZEPINE 100 MG/5 ML GT SCH ×3 (08:48→17:34)
[2017-01-01] MEDS: SENNOSIDES 8.6 MG TABLET GT SCH ×2 (08:48→21:22)
[2017-01-01] MEDS: HYDROGEN PEROXIDE 480 ML BOTTLE TP SCH ×2 (08:50→21:30)
[2017-01-01] MEDS: Z GUARD REMEDY 4 OZ OINT TP SCH ×2 (08:50→21:30)
[2017-01-01] MEDS: HEPARIN SODIUM, PORCINE 5000 UNITS/1 ML VIAL SQ SCH ×2 (08:50→21:23)
--- NOTE | 2017-01-01 18:20 | NUR ---
Pt was seen by ISIDORO Fernandez. She said she is ordering BUE/hand splints for contracture management.
[2017-01-01] MEDS: POLYETHYLENE GLYCOL 3350 17 GM POWD.PACK GT SCH (21:30)
[2017-01-01 22:57] VITALS: BP 110/64
[2017-01-02] MEDS: POLYVINYL ALCOHOL 15 ML BOTTLE EACHEYE SCH ×5 (00:08→23:41)
[2017-01-02] MEDS: ALBUTEROL FS 2.5 MG/3 ML VIAL.NEB NEB SCH ×4 (01:35→19:52)
[2017-01-02] MEDS: CHLORHEXIDINE GLUCONATE 15 ML UDC MM SCH ×2 (06:03→17:52)
[2017-01-02 07:48] VITALS: BP 113/72
[2017-01-02] MEDS: Z GUARD REMEDY 4 OZ OINT TP SCH ×2 (09:00→21:17)
[2017-01-02] MEDS: HEPARIN SODIUM, PORCINE 5000 UNITS/1 ML VIAL SQ SCH ×2 (09:00→21:17)
[2017-01-02] MEDS: HYDROGEN PEROXIDE 480 ML BOTTLE TP SCH ×2 (09:00→21:17)
[2017-01-02] MEDS: LEVETIRACETAM SOL (5 ML) 100 MG/ML UDC GT SCH ×2 (09:25→21:17)
[2017-01-02] MEDS: CARBAMAZEPINE 100 MG/5 ML GT SCH ×3 (09:25→16:27)
[2017-01-02] MEDS: SERTRALINE HCL 25 MG TABLET GT SCH (09:25)
[2017-01-02] MEDS: FOLIC ACID 1 MG TABLET GT SCH ×2 (09:25→16:27)
[2017-01-02] MEDS: BACLOFEN (10 MG) 10 MG TABLET GT SCH ×3 (09:25→16:27)
[2017-01-02] MEDS: SENNOSIDES 8.6 MG TABLET GT SCH ×2 (09:25→21:17)
[2017-01-02] MEDS: CHOLECALCIFEROL 1,000 UNIT TABLET (VIT D3) GT SCH (09:25)
--- NOTE | 2017-01-02 13:59 | NUR ---
Seen and examined by Dr. Aguilar NNO given at this time.
[2017-01-02 20:35] VITALS: BP 98/55
[2017-01-02] MEDS: POLYETHYLENE GLYCOL 3350 17 GM POWD.PACK GT SCH (21:17)
[2017-01-03] MEDS: ALBUTEROL FS 2.5 MG/3 ML VIAL.NEB NEB SCH ×4 (00:17→20:08)
[2017-01-03] MEDS: POLYVINYL ALCOHOL 15 ML BOTTLE EACHEYE SCH ×4 (05:36→23:43)
[2017-01-03] MEDS: CHLORHEXIDINE GLUCONATE 15 ML UDC MM SCH ×2 (05:36→18:10)
[2017-01-03 07:35] VITALS: BP 126/74
[2017-01-03] MEDS: LEVETIRACETAM SOL (5 ML) 100 MG/ML UDC GT SCH ×2 (08:24→20:46)
[2017-01-03] MEDS: SENNOSIDES 8.6 MG TABLET GT SCH ×2 (08:24→20:46)
[2017-01-03] MEDS: BACLOFEN (10 MG) 10 MG TABLET GT SCH ×3 (08:24→17:00)
[2017-01-03] MEDS: FOLIC ACID 1 MG TABLET GT SCH ×2 (08:24→17:00)
[2017-01-03] MEDS: SERTRALINE HCL 25 MG TABLET GT SCH (08:25)
[2017-01-03] MEDS: CARBAMAZEPINE 100 MG/5 ML GT SCH ×3 (08:25→17:00)
[2017-01-03] MEDS: CHOLECALCIFEROL 1,000 UNIT TABLET (VIT D3) GT SCH (08:25)
[2017-01-03] MEDS: HEPARIN SODIUM, PORCINE 5000 UNITS/1 ML VIAL SQ SCH ×2 (08:27→20:47)
[2017-01-03] MEDS: Z GUARD REMEDY 4 OZ OINT TP SCH ×2 (09:00→20:47)
[2017-01-03] MEDS: HYDROGEN PEROXIDE 480 ML BOTTLE TP SCH ×2 (09:00→20:47)
[2017-01-03 21:09] VITALS: BP 118/66
[2017-01-03] MEDS: POLYETHYLENE GLYCOL 3350 17 GM POWD.PACK GT SCH (21:18)
[2017-01-04] MEDS: ALBUTEROL FS 2.5 MG/3 ML VIAL.NEB NEB SCH ×4 (01:28→19:37)
[2017-01-04] MEDS: POLYVINYL ALCOHOL 15 ML BOTTLE EACHEYE SCH ×3 (05:35→17:11)
[2017-01-04] MEDS: CHLORHEXIDINE GLUCONATE 15 ML UDC MM SCH ×2 (05:35→17:11)
[2017-01-04 07:38] VITALS: BP 105/63
[2017-01-04] MEDS: CHOLECALCIFEROL 1,000 UNIT TABLET (VIT D3) GT SCH (08:58)
[2017-01-04] MEDS: SERTRALINE HCL 25 MG TABLET GT SCH (08:58)
[2017-01-04] MEDS: LEVETIRACETAM SOL (5 ML) 100 MG/ML UDC GT SCH ×2 (08:58→20:36)
[2017-01-04] MEDS: SENNOSIDES 8.6 MG TABLET GT SCH ×2 (08:58→20:36)
[2017-01-04] MEDS: FOLIC ACID 1 MG TABLET GT SCH ×2 (08:58→17:11)
[2017-01-04] MEDS: BACLOFEN (10 MG) 10 MG TABLET GT SCH ×3 (08:58→17:11)
[2017-01-04] MEDS: CARBAMAZEPINE 100 MG/5 ML GT SCH ×3 (08:58→17:11)
[2017-01-04] MEDS: Z GUARD REMEDY 4 OZ OINT TP SCH ×2 (08:59→20:37)
[2017-01-04] MEDS: HEPARIN SODIUM, PORCINE 5000 UNITS/1 ML VIAL SQ SCH ×2 (08:59→20:36)
[2017-01-04] MEDS: HYDROGEN PEROXIDE 480 ML BOTTLE TP SCH ×2 (08:59→20:36)
--- NOTE | 2017-01-04 12:30 | NUR ---
Seen and examined by Dr. Aguilar with no new order at this time.
[2017-01-04 19:44] VITALS: BP 141/83
[2017-01-04] MEDS: POLYETHYLENE GLYCOL 3350 17 GM POWD.PACK GT SCH (22:08)
[2017-01-05] MEDS: POLYVINYL ALCOHOL 15 ML BOTTLE EACHEYE SCH ×4 (00:13→17:56)
[2017-01-05] MEDS: ALBUTEROL FS 2.5 MG/3 ML VIAL.NEB NEB SCH ×4 (01:21→20:08)
[2017-01-05] MEDS: CHLORHEXIDINE GLUCONATE 15 ML UDC MM SCH ×2 (06:25→17:56)
[2017-01-05 08:20] VITALS: BP 106/53
[2017-01-05] MEDS: BACLOFEN (10 MG) 10 MG TABLET GT SCH ×3 (09:57→17:55)
[2017-01-05] MEDS: SERTRALINE HCL 25 MG TABLET GT SCH (09:57)
[2017-01-05] MEDS: CARBAMAZEPINE 100 MG/5 ML GT SCH ×3 (09:57→17:56)
[2017-01-05] MEDS: CHOLECALCIFEROL 1,000 UNIT TABLET (VIT D3) GT SCH (09:57)
[2017-01-05] MEDS: LEVETIRACETAM SOL (5 ML) 100 MG/ML UDC GT SCH ×2 (09:57→20:32)
[2017-01-05] MEDS: FOLIC ACID 1 MG TABLET GT SCH ×2 (09:57→17:55)
[2017-01-05] MEDS: SENNOSIDES 8.6 MG TABLET GT SCH ×2 (09:57→20:32)
[2017-01-05] MEDS: Z GUARD REMEDY 4 OZ OINT TP SCH ×2 (09:58→20:33)
[2017-01-05] MEDS: HYDROGEN PEROXIDE 480 ML BOTTLE TP SCH ×2 (09:58→20:33)
[2017-01-05] MEDS: HEPARIN SODIUM, PORCINE 5000 UNITS/1 ML VIAL SQ SCH ×2 (09:58→20:33)
--- NOTE | 2017-01-05 19:30 | NUR ---
RN NOTES Seen and examined by Sugar Spangler with NNO.
[2017-01-05 19:56] VITALS: BP 105/59
[2017-01-05] MEDS: POLYETHYLENE GLYCOL 3350 17 GM POWD.PACK GT SCH (21:50)
[2017-01-06] MEDS: POLYVINYL ALCOHOL 15 ML BOTTLE EACHEYE SCH ×4 (00:18→17:17)
[2017-01-06] MEDS: ALBUTEROL FS 2.5 MG/3 ML VIAL.NEB NEB SCH ×4 (01:41→19:30)
[2017-01-06] MEDS: CHLORHEXIDINE GLUCONATE 15 ML UDC MM SCH ×2 (06:19→17:17)
[2017-01-06 07:56] VITALS: BP 129/58
[2017-01-06] MEDS: BACLOFEN (10 MG) 10 MG TABLET GT SCH ×3 (08:33→17:18)
[2017-01-06] MEDS: FOLIC ACID 1 MG TABLET GT SCH ×2 (08:33→17:18)
[2017-01-06] MEDS: SERTRALINE HCL 25 MG TABLET GT SCH (08:34)
[2017-01-06] MEDS: LEVETIRACETAM SOL (5 ML) 100 MG/ML UDC GT SCH ×2 (08:34→20:14)
[2017-01-06] MEDS: SENNOSIDES 8.6 MG TABLET GT SCH ×2 (08:35→20:14)
[2017-01-06] MEDS: CARBAMAZEPINE 100 MG/5 ML GT SCH ×3 (08:35→17:17)
[2017-01-06] MEDS: CHOLECALCIFEROL 1,000 UNIT TABLET (VIT D3) GT SCH (08:38)
[2017-01-06] MEDS: HYDROGEN PEROXIDE 480 ML BOTTLE TP SCH ×2 (08:39→20:17)
[2017-01-06] MEDS: Z GUARD REMEDY 4 OZ OINT TP SCH ×2 (08:39→20:17)
[2017-01-06] MEDS: HEPARIN SODIUM, PORCINE 5000 UNITS/1 ML VIAL SQ SCH ×2 (08:46→20:17)
--- NOTE | 2017-01-06 10:22 | NUR ---
Seen and examined by Dr Lubin and Dr. Aguilar, mother reported that patient with phlegm. No s/s of aspiration, suctioned PRN. NNO given at this time.
[2017-01-06 19:59] VITALS: BP 104/66
[2017-01-06] MEDS: POLYETHYLENE GLYCOL 3350 17 GM POWD.PACK GT SCH (22:07)
[2017-01-07] MEDS: POLYVINYL ALCOHOL 15 ML BOTTLE EACHEYE SCH ×4 (00:34→18:36)
[2017-01-07] MEDS: ALBUTEROL FS 2.5 MG/3 ML VIAL.NEB NEB SCH ×4 (01:26→19:30)
[2017-01-07] MEDS: CHLORHEXIDINE GLUCONATE 15 ML UDC MM SCH ×2 (05:56→18:36)
[2017-01-07 08:10] VITALS: BP 113/55
[2017-01-07] MEDS: CHOLECALCIFEROL 1,000 UNIT TABLET (VIT D3) GT SCH (08:40)
[2017-01-07] MEDS: LEVETIRACETAM SOL (5 ML) 100 MG/ML UDC GT SCH ×2 (08:40→21:09)
[2017-01-07] MEDS: SERTRALINE HCL 25 MG TABLET GT SCH (08:40)
[2017-01-07] MEDS: SENNOSIDES 8.6 MG TABLET GT SCH ×2 (08:40→21:09)
[2017-01-07] MEDS: FOLIC ACID 1 MG TABLET GT SCH ×2 (08:40→16:37)
[2017-01-07] MEDS: BACLOFEN (10 MG) 10 MG TABLET GT SCH ×3 (08:40→16:37)
[2017-01-07] MEDS: CARBAMAZEPINE 100 MG/5 ML GT SCH ×3 (08:40→16:37)
[2017-01-07] MEDS: HYDROGEN PEROXIDE 480 ML BOTTLE TP SCH ×2 (08:41→21:13)
[2017-01-07] MEDS: HEPARIN SODIUM, PORCINE 5000 UNITS/1 ML VIAL SQ SCH ×2 (08:41→21:13)
[2017-01-07] MEDS: Z GUARD REMEDY 4 OZ OINT TP SCH ×2 (08:41→21:13)
[2017-01-07] MEDS: POLYETHYLENE GLYCOL 3350 17 GM POWD.PACK GT SCH (21:13)
[2017-01-07 21:49] VITALS: BP 110/60
[2017-01-08] MEDS: POLYVINYL ALCOHOL 15 ML BOTTLE EACHEYE SCH ×4 (00:18→18:39)
[2017-01-08] MEDS: ALBUTEROL FS 2.5 MG/3 ML VIAL.NEB NEB SCH ×4 (01:58→19:34)
[2017-01-08] MEDS: CHLORHEXIDINE GLUCONATE 15 ML UDC MM SCH ×2 (05:06→18:39)
[2017-01-08] MEDS: Z GUARD REMEDY 4 OZ OINT TP SCH ×2 (09:00→21:06)
[2017-01-08] MEDS: CARBAMAZEPINE 100 MG/5 ML GT SCH ×3 (09:00→17:00)
[2017-01-08] MEDS: SERTRALINE HCL 25 MG TABLET GT SCH (09:00)
[2017-01-08] MEDS: CHOLECALCIFEROL 1,000 UNIT TABLET (VIT D3) GT SCH (09:00)
[2017-01-08] MEDS: HEPARIN SODIUM, PORCINE 5000 UNITS/1 ML VIAL SQ SCH ×2 (09:00→21:06)
[2017-01-08] MEDS: SENNOSIDES 8.6 MG TABLET GT SCH ×2 (09:00→21:06)
[2017-01-08] MEDS: LEVETIRACETAM SOL (5 ML) 100 MG/ML UDC GT SCH ×2 (09:00→21:06)
[2017-01-08] MEDS: HYDROGEN PEROXIDE 480 ML BOTTLE TP SCH ×2 (09:00→21:06)
[2017-01-08] MEDS: FOLIC ACID 1 MG TABLET GT SCH ×2 (09:00→17:00)
[2017-01-08] MEDS: BACLOFEN (10 MG) 10 MG TABLET GT SCH ×3 (09:00→17:00)
--- NOTE | 2017-01-08 13:50 | NUR ---
Seen and examined by Dr Aguilar with no new order.
--- NOTE | 2017-01-08 15:40 | NUR ---
Seen and examined by Sugar BONNER with no new order.
[2017-01-08] MEDS: POLYETHYLENE GLYCOL 3350 17 GM POWD.PACK GT SCH (21:06)
[2017-01-08 21:13] VITALS: BP 103/69
[2017-01-09] MEDS: POLYVINYL ALCOHOL 15 ML BOTTLE EACHEYE SCH ×4 (00:05→18:00)
[2017-01-09] MEDS: ALBUTEROL FS 2.5 MG/3 ML VIAL.NEB NEB SCH ×4 (01:42→19:11)
[2017-01-09] MEDS: CHLORHEXIDINE GLUCONATE 15 ML UDC MM SCH ×2 (05:16→18:00)
[2017-01-09 07:40] VITALS: BP 136/72
[2017-01-09] MEDS: Z GUARD REMEDY 4 OZ OINT TP SCH ×2 (09:00→21:05)
[2017-01-09] MEDS: LEVETIRACETAM SOL (5 ML) 100 MG/ML UDC GT SCH ×2 (09:00→21:05)
[2017-01-09] MEDS: FOLIC ACID 1 MG TABLET GT SCH ×2 (09:00→16:39)
[2017-01-09] MEDS: CHOLECALCIFEROL 1,000 UNIT TABLET (VIT D3) GT SCH (09:00)
[2017-01-09] MEDS: SERTRALINE HCL 25 MG TABLET GT SCH (09:00)
[2017-01-09] MEDS: CARBAMAZEPINE 100 MG/5 ML GT SCH ×3 (09:00→16:39)
[2017-01-09] MEDS: BACLOFEN (10 MG) 10 MG TABLET GT SCH ×3 (09:00→16:39)
[2017-01-09] MEDS: HEPARIN SODIUM, PORCINE 5000 UNITS/1 ML VIAL SQ SCH ×2 (09:00→21:05)
[2017-01-09] MEDS: HYDROGEN PEROXIDE 480 ML BOTTLE TP SCH ×2 (09:00→21:05)
[2017-01-09] MEDS: SENNOSIDES 8.6 MG TABLET GT SCH ×2 (09:00→21:05)
[2017-01-09 19:51] VITALS: BP 100/53
[2017-01-09] MEDS: POLYETHYLENE GLYCOL 3350 17 GM POWD.PACK GT SCH (21:05)
[2017-01-10] MEDS: ALBUTEROL FS 2.5 MG/3 ML VIAL.NEB NEB SCH ×5 (00:30→19:32)
--- NOTE | 2017-01-10 02:31 | NUR ---
RT Pre Tx digital data analyst error Addendum: 01/10/17 at 0231 by SOILA INFANTE RT Amended: Links added.
--- NOTE | 2017-01-10 02:32 | NUR ---
RT Tx Progress data security analyst error Addendum: 01/10/17 at 0232 by SOILA INFANTE RT Amended: Links added.
--- NOTE | 2017-01-10 02:33 | NUR ---
RT Post Tx lead data architect error Addendum: 01/10/17 at 0233 by SOILA INFANTE RT Amended: Links added.
[2017-01-10] MEDS: POLYVINYL ALCOHOL 15 ML BOTTLE EACHEYE SCH ×4 (05:08→17:04)
[2017-01-10] MEDS: CHLORHEXIDINE GLUCONATE 15 ML UDC MM SCH ×2 (05:08→17:04)
--- NOTE | 2017-01-10 06:50 | NUR ---
mother at bedside. pt clean and dry. mother had no issues or concerns with patient care rendered.
[2017-01-10 07:44] VITALS: BP 117/69
[2017-01-10] MEDS: FOLIC ACID 1 MG TABLET GT SCH ×2 (08:28→17:04)
[2017-01-10] MEDS: BACLOFEN (10 MG) 10 MG TABLET GT SCH ×3 (08:29→17:04)
[2017-01-10] MEDS: HEPARIN SODIUM, PORCINE 5000 UNITS/1 ML VIAL SQ SCH ×2 (08:29→20:38)
[2017-01-10] MEDS: CARBAMAZEPINE 100 MG/5 ML GT SCH ×3 (08:29→17:04)
[2017-01-10] MEDS: LEVETIRACETAM SOL (5 ML) 100 MG/ML UDC GT SCH ×2 (08:29→20:37)
[2017-01-10] MEDS: SERTRALINE HCL 25 MG TABLET GT SCH (08:29)
[2017-01-10] MEDS: CHOLECALCIFEROL 1,000 UNIT TABLET (VIT D3) GT SCH (08:29)
[2017-01-10] MEDS: SENNOSIDES 8.6 MG TABLET GT SCH ×2 (08:29→20:37)
[2017-01-10] MEDS: Z GUARD REMEDY 4 OZ OINT TP SCH ×2 (08:30→20:38)
[2017-01-10] MEDS: HYDROGEN PEROXIDE 480 ML BOTTLE TP SCH ×2 (08:30→20:38)
[2017-01-10 19:57] VITALS: BP 97/62
[2017-01-10] MEDS: POLYETHYLENE GLYCOL 3350 17 GM POWD.PACK GT SCH (22:25)
[2017-01-11] MEDS: ALBUTEROL FS 2.5 MG/3 ML VIAL.NEB NEB SCH ×4 (01:01→19:15)
[2017-01-11] MEDS: POLYVINYL ALCOHOL 15 ML BOTTLE EACHEYE SCH ×5 (05:17→23:16)
[2017-01-11] MEDS: CHLORHEXIDINE GLUCONATE 15 ML UDC MM SCH ×2 (05:18→18:05)
[2017-01-11 07:27] VITALS: BP 123/72
[2017-01-11] MEDS: CARBAMAZEPINE 100 MG/5 ML GT SCH ×3 (08:52→16:55)
[2017-01-11] MEDS: SENNOSIDES 8.6 MG TABLET GT SCH ×2 (08:52→20:44)
[2017-01-11] MEDS: FOLIC ACID 1 MG TABLET GT SCH ×2 (08:52→16:55)
[2017-01-11] MEDS: SERTRALINE HCL 25 MG TABLET GT SCH (08:52)
[2017-01-11] MEDS: LEVETIRACETAM SOL (5 ML) 100 MG/ML UDC GT SCH ×2 (08:52→20:44)
[2017-01-11] MEDS: CHOLECALCIFEROL 1,000 UNIT TABLET (VIT D3) GT SCH (08:52)
[2017-01-11] MEDS: BACLOFEN (10 MG) 10 MG TABLET GT SCH ×3 (08:52→16:55)
[2017-01-11] MEDS: Z GUARD REMEDY 4 OZ OINT TP SCH ×2 (08:53→20:44)
[2017-01-11] MEDS: HYDROGEN PEROXIDE 480 ML BOTTLE TP SCH ×2 (08:53→20:44)
[2017-01-11] MEDS: HEPARIN SODIUM, PORCINE 5000 UNITS/1 ML VIAL SQ SCH ×2 (08:53→20:44)
--- NOTE | 2017-01-11 11:00 | NUR ---
Reported by nurse staff noted skin tear to right buttock, small amount of blood noted, has current excoriation to sacral area, with ongoing treatment. With new treatment order per skin protocol. MD aware. Patients' mother at bedside. Noted and carried out.
[2017-01-11] MEDS: NEOMY SULF/BACITRAC ZN/POLY 15 GM TUBE TP SCH ×2 (13:00→20:44)
[2017-01-11 19:50] VITALS: BP 125/80
[2017-01-11] MEDS: POLYETHYLENE GLYCOL 3350 17 GM POWD.PACK GT SCH (21:41)
[2017-01-12] MEDS: ALBUTEROL FS 2.5 MG/3 ML VIAL.NEB NEB SCH ×4 (01:07→19:04)
[2017-01-12] MEDS: CHLORHEXIDINE GLUCONATE 15 ML UDC MM SCH ×2 (05:33→17:44)
[2017-01-12] MEDS: POLYVINYL ALCOHOL 15 ML BOTTLE EACHEYE SCH ×4 (05:33→23:24)
[2017-01-12 08:34] VITALS: BP 103/55
[2017-01-12] MEDS: BACLOFEN (10 MG) 10 MG TABLET GT SCH ×3 (09:10→17:44)
[2017-01-12] MEDS: CARBAMAZEPINE 100 MG/5 ML GT SCH ×3 (09:10→17:44)
[2017-01-12] MEDS: CHOLECALCIFEROL 1,000 UNIT TABLET (VIT D3) GT SCH (09:10)
[2017-01-12] MEDS: LEVETIRACETAM SOL (5 ML) 100 MG/ML UDC GT SCH ×2 (09:10→20:40)
[2017-01-12] MEDS: SENNOSIDES 8.6 MG TABLET GT SCH ×2 (09:10→20:40)
[2017-01-12] MEDS: SERTRALINE HCL 25 MG TABLET GT SCH (09:10)
[2017-01-12] MEDS: FOLIC ACID 1 MG TABLET GT SCH ×2 (09:10→17:44)
[2017-01-12] MEDS: HEPARIN SODIUM, PORCINE 5000 UNITS/1 ML VIAL SQ SCH ×2 (09:11→20:40)
[2017-01-12] MEDS: HYDROGEN PEROXIDE 480 ML BOTTLE TP SCH ×2 (09:11→20:40)
[2017-01-12] MEDS: NEOMY SULF/BACITRAC ZN/POLY 15 GM TUBE TP SCH ×2 (09:11→20:41)
[2017-01-12] MEDS: Z GUARD REMEDY 4 OZ OINT TP SCH ×2 (09:11→20:41)
[2017-01-12 20:07] VITALS: BP 101/59
[2017-01-12] MEDS: POLYETHYLENE GLYCOL 3350 17 GM POWD.PACK GT SCH (22:59)
[2017-01-13] MEDS: ALBUTEROL FS 2.5 MG/3 ML VIAL.NEB NEB SCH ×4 (02:27→19:36)
[2017-01-13] MEDS: CHLORHEXIDINE GLUCONATE 15 ML UDC MM SCH ×2 (05:19→18:17)
[2017-01-13] MEDS: POLYVINYL ALCOHOL 15 ML BOTTLE EACHEYE SCH ×4 (05:19→23:11)
[2017-01-13 08:01] VITALS: BP 109/75
[2017-01-13] MEDS: BACLOFEN (10 MG) 10 MG TABLET GT SCH ×3 (08:37→16:18)
[2017-01-13] MEDS: CHOLECALCIFEROL 1,000 UNIT TABLET (VIT D3) GT SCH (08:37)
[2017-01-13] MEDS: SERTRALINE HCL 25 MG TABLET GT SCH (08:37)
[2017-01-13] MEDS: SENNOSIDES 8.6 MG TABLET GT SCH ×2 (08:37→20:21)
[2017-01-13] MEDS: FOLIC ACID 1 MG TABLET GT SCH ×2 (08:37→16:18)
[2017-01-13] MEDS: LEVETIRACETAM SOL (5 ML) 100 MG/ML UDC GT SCH ×2 (08:37→20:21)
[2017-01-13] MEDS: CARBAMAZEPINE 100 MG/5 ML GT SCH ×3 (08:37→16:19)
[2017-01-13] MEDS: Z GUARD REMEDY 4 OZ OINT TP SCH ×2 (08:38→20:21)
[2017-01-13] MEDS: HEPARIN SODIUM, PORCINE 5000 UNITS/1 ML VIAL SQ SCH ×2 (08:38→20:21)
[2017-01-13] MEDS: NEOMY SULF/BACITRAC ZN/POLY 15 GM TUBE TP SCH ×2 (08:38→20:21)
[2017-01-13] MEDS: HYDROGEN PEROXIDE 480 ML BOTTLE TP SCH ×2 (08:38→20:21)
--- NOTE | 2017-01-13 14:45 | NUR ---
Pt has right buttock skin tear. Received order for wound consult.
[2017-01-13 20:12] VITALS: BP 115/71
[2017-01-13] MEDS: POLYETHYLENE GLYCOL 3350 17 GM POWD.PACK GT SCH (21:46)
[2017-01-14] MEDS: ALBUTEROL FS 2.5 MG/3 ML VIAL.NEB NEB SCH ×4 (02:08→19:40)
[2017-01-14] MEDS: POLYVINYL ALCOHOL 15 ML BOTTLE EACHEYE SCH ×3 (05:30→17:35)
[2017-01-14] MEDS: CHLORHEXIDINE GLUCONATE 15 ML UDC MM SCH ×2 (05:31→17:35)
[2017-01-14 07:52] VITALS: BP 122/89
[2017-01-14] MEDS: BACLOFEN (10 MG) 10 MG TABLET GT SCH ×3 (08:33→16:44)
[2017-01-14] MEDS: LEVETIRACETAM SOL (5 ML) 100 MG/ML UDC GT SCH ×2 (08:33→20:42)
[2017-01-14] MEDS: CARBAMAZEPINE 100 MG/5 ML GT SCH ×3 (08:33→16:44)
[2017-01-14] MEDS: SENNOSIDES 8.6 MG TABLET GT SCH ×2 (08:33→20:43)
[2017-01-14] MEDS: FOLIC ACID 1 MG TABLET GT SCH ×2 (08:33→16:44)
[2017-01-14] MEDS: Z GUARD REMEDY 4 OZ OINT TP SCH ×2 (08:34→20:44)
[2017-01-14] MEDS: CHOLECALCIFEROL 1,000 UNIT TABLET (VIT D3) GT SCH (08:34)
[2017-01-14] MEDS: SERTRALINE HCL 25 MG TABLET GT SCH (08:34)
[2017-01-14] MEDS: HYDROGEN PEROXIDE 480 ML BOTTLE TP SCH ×2 (08:34→20:44)
[2017-01-14] MEDS: NEOMY SULF/BACITRAC ZN/POLY 15 GM TUBE TP SCH (08:34)
[2017-01-14] MEDS: HEPARIN SODIUM, PORCINE 5000 UNITS/1 ML VIAL SQ SCH ×2 (08:34→20:44)
--- NOTE | 2017-01-14 09:45 | NUR ---
WOUND CARE CONSULT: PT SEEN FOR RT BUTTOCK AND SACRAL AREA. PT NOTED TO HAVE SOME EXCORIATION. RECOMMENDATIONS TO CONTINUE TO KEEP SKIN CLEAN AND DRY AND CONTINUE Z GUARD WITH MEPILEX. DISCUSSED WITH NURSING STAFF. PT'S MOTHER AT BEDSIDE AND SKIN IMPROVEMENT NOTED BY MOTHER. WILL SEE PRN.
[2017-01-14 20:14] VITALS: BP 113/66
[2017-01-14] MEDS: POLYETHYLENE GLYCOL 3350 17 GM POWD.PACK GT SCH (22:00)
[2017-01-15] MEDS: POLYVINYL ALCOHOL 15 ML BOTTLE EACHEYE SCH ×5 (00:27→23:44)
[2017-01-15] MEDS: ALBUTEROL FS 2.5 MG/3 ML VIAL.NEB NEB SCH ×4 (01:50→19:39)
[2017-01-15] MEDS: CHLORHEXIDINE GLUCONATE 15 ML UDC MM SCH ×2 (05:27→18:18)
[2017-01-15] MEDS: FOLIC ACID 1 MG TABLET GT SCH ×2 (08:34→16:38)
[2017-01-15] MEDS: SENNOSIDES 8.6 MG TABLET GT SCH ×2 (08:35→20:44)
[2017-01-15] MEDS: LEVETIRACETAM SOL (5 ML) 100 MG/ML UDC GT SCH ×2 (08:35→20:43)
[2017-01-15] MEDS: SERTRALINE HCL 25 MG TABLET GT SCH (08:35)
[2017-01-15] MEDS: BACLOFEN (10 MG) 10 MG TABLET GT SCH ×3 (08:35→16:38)
[2017-01-15] MEDS: CHOLECALCIFEROL 1,000 UNIT TABLET (VIT D3) GT SCH (08:35)
[2017-01-15] MEDS: HEPARIN SODIUM, PORCINE 5000 UNITS/1 ML VIAL SQ SCH ×2 (08:35→20:44)
[2017-01-15] MEDS: Z GUARD REMEDY 4 OZ OINT TP SCH ×2 (08:35→20:44)
[2017-01-15] MEDS: HYDROGEN PEROXIDE 480 ML BOTTLE TP SCH ×2 (08:35→20:44)
[2017-01-15] MEDS: CARBAMAZEPINE 100 MG/5 ML GT SCH ×3 (08:35→16:39)
[2017-01-15 08:57] VITALS: BP 109/71
[2017-01-15 20:13] VITALS: BP 124/62
[2017-01-15] MEDS: POLYETHYLENE GLYCOL 3350 17 GM POWD.PACK GT SCH (22:02)
[2017-01-16] MEDS: ALBUTEROL FS 2.5 MG/3 ML VIAL.NEB NEB SCH ×4 (00:59→19:31)
[2017-01-16] MEDS: POLYVINYL ALCOHOL 15 ML BOTTLE EACHEYE SCH ×4 (05:40→23:37)
[2017-01-16] MEDS: CHLORHEXIDINE GLUCONATE 15 ML UDC MM SCH ×2 (05:40→17:53)
[2017-01-16 07:36] VITALS: BP 125/72
[2017-01-16] MEDS: BACLOFEN (10 MG) 10 MG TABLET GT SCH ×3 (08:18→16:18)
[2017-01-16] MEDS: SENNOSIDES 8.6 MG TABLET GT SCH ×2 (08:18→20:31)
[2017-01-16] MEDS: CARBAMAZEPINE 100 MG/5 ML GT SCH ×3 (08:18→16:18)
[2017-01-16] MEDS: LEVETIRACETAM SOL (5 ML) 100 MG/ML UDC GT SCH ×2 (08:18→20:31)
[2017-01-16] MEDS: FOLIC ACID 1 MG TABLET GT SCH ×2 (08:18→16:18)
[2017-01-16] MEDS: CHOLECALCIFEROL 1,000 UNIT TABLET (VIT D3) GT SCH (08:18)
[2017-01-16] MEDS: HEPARIN SODIUM, PORCINE 5000 UNITS/1 ML VIAL SQ SCH ×2 (08:19→20:32)
[2017-01-16] MEDS: Z GUARD REMEDY 4 OZ OINT TP SCH ×2 (08:19→20:32)
[2017-01-16] MEDS: HYDROGEN PEROXIDE 480 ML BOTTLE TP SCH ×2 (08:19→20:32)
[2017-01-16] MEDS: SERTRALINE HCL 25 MG TABLET GT SCH (08:19)
[2017-01-16 20:33] VITALS: BP 135/65
[2017-01-16] MEDS: POLYETHYLENE GLYCOL 3350 17 GM POWD.PACK GT SCH (22:13)
[2017-01-17] MEDS: ALBUTEROL FS 2.5 MG/3 ML VIAL.NEB NEB SCH ×4 (01:07→19:47)
[2017-01-17] MEDS: POLYVINYL ALCOHOL 15 ML BOTTLE EACHEYE SCH ×4 (05:34→23:15)
[2017-01-17] MEDS: CHLORHEXIDINE GLUCONATE 15 ML UDC MM SCH ×2 (05:34→17:39)
[2017-01-17 07:31] VITALS: BP 119/74
[2017-01-17] MEDS: BACLOFEN (10 MG) 10 MG TABLET GT SCH ×3 (08:55→16:12)
[2017-01-17] MEDS: FOLIC ACID 1 MG TABLET GT SCH ×2 (08:55→16:12)
[2017-01-17] MEDS: SENNOSIDES 8.6 MG TABLET GT SCH ×2 (08:55→20:06)
[2017-01-17] MEDS: LEVETIRACETAM SOL (5 ML) 100 MG/ML UDC GT SCH ×2 (08:55→20:06)
[2017-01-17] MEDS: HEPARIN SODIUM, PORCINE 5000 UNITS/1 ML VIAL SQ SCH ×2 (08:56→20:09)
[2017-01-17] MEDS: CHOLECALCIFEROL 1,000 UNIT TABLET (VIT D3) GT SCH (08:56)
[2017-01-17] MEDS: CARBAMAZEPINE 100 MG/5 ML GT SCH ×3 (08:56→16:12)
[2017-01-17] MEDS: SERTRALINE HCL 25 MG TABLET GT SCH (08:56)
[2017-01-17] MEDS: CHLORHEXIDINE GLUCONATE 4% 118 ML BOTTLE TP SCH (08:57)
[2017-01-17] MEDS: HYDROGEN PEROXIDE 480 ML BOTTLE TP SCH ×2 (08:58→20:09)
[2017-01-17 20:19] VITALS: BP 138/72
[2017-01-17] MEDS: POLYETHYLENE GLYCOL 3350 17 GM POWD.PACK GT SCH (21:02)
[2017-01-18] MEDS: ALBUTEROL FS 2.5 MG/3 ML VIAL.NEB NEB SCH ×4 (00:43→19:37)
[2017-01-18] MEDS: CHLORHEXIDINE GLUCONATE 15 ML UDC MM SCH ×2 (05:41→18:18)
[2017-01-18] MEDS: POLYVINYL ALCOHOL 15 ML BOTTLE EACHEYE SCH ×4 (05:41→23:25)
[2017-01-18 07:46] VITALS: BP 144/73
[2017-01-18] MEDS: HEPARIN SODIUM, PORCINE 5000 UNITS/1 ML VIAL SQ SCH ×2 (09:00→20:26)
[2017-01-18] MEDS: SERTRALINE HCL 25 MG TABLET GT SCH (09:00)
[2017-01-18] MEDS: SENNOSIDES 8.6 MG TABLET GT SCH ×2 (09:00→20:24)
[2017-01-18] MEDS: CHOLECALCIFEROL 1,000 UNIT TABLET (VIT D3) GT SCH (09:00)
[2017-01-18] MEDS: FOLIC ACID 1 MG TABLET GT SCH ×2 (09:00→16:33)
[2017-01-18] MEDS: CARBAMAZEPINE 100 MG/5 ML GT SCH ×3 (09:00→16:33)
[2017-01-18] MEDS: BACLOFEN (10 MG) 10 MG TABLET GT SCH ×3 (09:00→16:33)
[2017-01-18] MEDS: CHLORHEXIDINE GLUCONATE 4% 118 ML BOTTLE TP SCH (09:00)
[2017-01-18] MEDS: LEVETIRACETAM SOL (5 ML) 100 MG/ML UDC GT SCH ×2 (09:00→20:24)
[2017-01-18] MEDS: HYDROGEN PEROXIDE 480 ML BOTTLE TP SCH ×2 (09:00→20:26)
[2017-01-18] MEDS: POLYETHYLENE GLYCOL 3350 17 GM POWD.PACK GT SCH (22:00)
[2017-01-18 23:05] VITALS: BP 103/61
[2017-01-19] MEDS: ALBUTEROL FS 2.5 MG/3 ML VIAL.NEB NEB SCH ×4 (01:16→19:18)
[2017-01-19] MEDS: POLYVINYL ALCOHOL 15 ML BOTTLE EACHEYE SCH ×3 (05:35→17:17)
[2017-01-19] MEDS: CHLORHEXIDINE GLUCONATE 15 ML UDC MM SCH ×2 (05:36→18:34)
[2017-01-19 08:12] VITALS: BP 106/83
[2017-01-19] MEDS: FOLIC ACID 1 MG TABLET GT SCH ×2 (09:09→17:16)
[2017-01-19] MEDS: CARBAMAZEPINE 100 MG/5 ML GT SCH ×3 (09:09→17:17)
[2017-01-19] MEDS: CHOLECALCIFEROL 1,000 UNIT TABLET (VIT D3) GT SCH (09:09)
[2017-01-19] MEDS: LEVETIRACETAM SOL (5 ML) 100 MG/ML UDC GT SCH ×2 (09:09→21:04)
[2017-01-19] MEDS: SENNOSIDES 8.6 MG TABLET GT SCH ×2 (09:09→21:04)
[2017-01-19] MEDS: BACLOFEN (10 MG) 10 MG TABLET GT SCH ×3 (09:09→17:17)
[2017-01-19] MEDS: SERTRALINE HCL 25 MG TABLET GT SCH (09:09)
[2017-01-19] MEDS: HEPARIN SODIUM, PORCINE 5000 UNITS/1 ML VIAL SQ SCH ×2 (09:10→21:05)
[2017-01-19] MEDS: HYDROGEN PEROXIDE 480 ML BOTTLE TP SCH ×2 (09:11→21:05)
[2017-01-19 19:51] VITALS: BP 103/75
[2017-01-19] MEDS: POLYETHYLENE GLYCOL 3350 17 GM POWD.PACK GT SCH (21:05)
[2017-01-20] MEDS: POLYVINYL ALCOHOL 15 ML BOTTLE EACHEYE SCH ×5 (00:03→23:41)
[2017-01-20] MEDS: ALBUTEROL FS 2.5 MG/3 ML VIAL.NEB NEB SCH ×4 (00:39→19:44)
[2017-01-20] MEDS: CHLORHEXIDINE GLUCONATE 15 ML UDC MM SCH ×2 (05:12→18:01)
[2017-01-20 07:51] VITALS: BP 105/68
[2017-01-20] MEDS: CHOLECALCIFEROL 1,000 UNIT TABLET (VIT D3) GT SCH (09:34)
[2017-01-20] MEDS: SENNOSIDES 8.6 MG TABLET GT SCH ×2 (09:34→20:23)
[2017-01-20] MEDS: FOLIC ACID 1 MG TABLET GT SCH ×2 (09:34→16:57)
[2017-01-20] MEDS: SERTRALINE HCL 25 MG TABLET GT SCH (09:34)
[2017-01-20] MEDS: BACLOFEN (10 MG) 10 MG TABLET GT SCH ×3 (09:34→16:57)
[2017-01-20] MEDS: LEVETIRACETAM SOL (5 ML) 100 MG/ML UDC GT SCH ×2 (09:34→20:23)
[2017-01-20] MEDS: HYDROGEN PEROXIDE 480 ML BOTTLE TP SCH ×2 (09:34→20:24)
[2017-01-20] MEDS: CARBAMAZEPINE 100 MG/5 ML GT SCH ×3 (09:34→16:57)
[2017-01-20] MEDS: HEPARIN SODIUM, PORCINE 5000 UNITS/1 ML VIAL SQ SCH ×2 (09:35→20:24)
[2017-01-20 19:37] VITALS: BP 102/62
[2017-01-20] MEDS: POLYETHYLENE GLYCOL 3350 17 GM POWD.PACK GT SCH (22:04)
[2017-01-21] MEDS: ALBUTEROL FS 2.5 MG/3 ML VIAL.NEB NEB SCH ×4 (01:15→19:23)
[2017-01-21] MEDS: CHLORHEXIDINE GLUCONATE 15 ML UDC MM SCH ×2 (05:19→18:53)
[2017-01-21] MEDS: POLYVINYL ALCOHOL 15 ML BOTTLE EACHEYE SCH ×4 (05:19→23:22)
[2017-01-21 07:43] VITALS: BP 130/76
[2017-01-21] MEDS: LEVETIRACETAM SOL (5 ML) 100 MG/ML UDC GT SCH ×2 (08:19→20:44)
[2017-01-21] MEDS: CHOLECALCIFEROL 1,000 UNIT TABLET (VIT D3) GT SCH (08:19)
[2017-01-21] MEDS: BACLOFEN (10 MG) 10 MG TABLET GT SCH ×3 (08:19→16:50)
[2017-01-21] MEDS: FOLIC ACID 1 MG TABLET GT SCH ×2 (08:19→16:41)
[2017-01-21] MEDS: SERTRALINE HCL 25 MG TABLET GT SCH (08:19)
[2017-01-21] MEDS: SENNOSIDES 8.6 MG TABLET GT SCH ×2 (08:19→20:44)
[2017-01-21] MEDS: CARBAMAZEPINE 100 MG/5 ML GT SCH ×3 (08:19→16:41)
[2017-01-21] MEDS: HEPARIN SODIUM, PORCINE 5000 UNITS/1 ML VIAL SQ SCH ×2 (08:28→20:44)
[2017-01-21] MEDS: HYDROGEN PEROXIDE 480 ML BOTTLE TP SCH ×2 (08:29→20:44)
--- NOTE | 2017-01-21 13:00 | NUR ---
Mother attended support group meeting and shared her concerns. They will be addressed with subacute director Nessa Rivers.
[2017-01-21 20:15] VITALS: BP 105/64
[2017-01-21] MEDS: POLYETHYLENE GLYCOL 3350 17 GM POWD.PACK GT SCH (21:47)
[2017-01-22] MEDS: ALBUTEROL FS 2.5 MG/3 ML VIAL.NEB NEB SCH ×4 (00:51→19:55)
[2017-01-22] MEDS: CHLORHEXIDINE GLUCONATE 15 ML UDC MM SCH ×2 (05:27→18:20)
[2017-01-22] MEDS: POLYVINYL ALCOHOL 15 ML BOTTLE EACHEYE SCH ×3 (05:27→18:20)
[2017-01-22 07:25] VITALS: BP 129/58
--- NOTE | 2017-01-22 08:26 | NUR ---
Social Service Section of [facility] ( 1st quarter) completed. Resident is alert but does not communicate. Her parents, Darrel and Anaya Swift are involved in her care and mother is here on a daily basis. Discharge to a lower level of care when medically appropriate.
[2017-01-22] MEDS: CARBAMAZEPINE 100 MG/5 ML GT SCH ×3 (08:31→16:50)
[2017-01-22] MEDS: FOLIC ACID 1 MG TABLET GT SCH ×2 (08:31→16:50)
[2017-01-22] MEDS: SERTRALINE HCL 25 MG TABLET GT SCH (08:31)
[2017-01-22] MEDS: BACLOFEN (10 MG) 10 MG TABLET GT SCH ×3 (08:31→16:50)
[2017-01-22] MEDS: LEVETIRACETAM SOL (5 ML) 100 MG/ML UDC GT SCH ×2 (08:31→20:20)
[2017-01-22] MEDS: SENNOSIDES 8.6 MG TABLET GT SCH ×2 (08:31→20:20)
[2017-01-22] MEDS: CHOLECALCIFEROL 1,000 UNIT TABLET (VIT D3) GT SCH (08:31)
[2017-01-22] MEDS: HYDROGEN PEROXIDE 480 ML BOTTLE TP SCH ×2 (08:32→21:15)
[2017-01-22] MEDS: HEPARIN SODIUM, PORCINE 5000 UNITS/1 ML VIAL SQ SCH ×2 (08:32→20:21)
[2017-01-22 20:08] VITALS: BP 113/55
[2017-01-22] MEDS: POLYETHYLENE GLYCOL 3350 17 GM POWD.PACK GT SCH (21:15)
[2017-01-23] MEDS: POLYVINYL ALCOHOL 15 ML BOTTLE EACHEYE SCH ×4 (00:12→17:49)
[2017-01-23] MEDS: ALBUTEROL FS 2.5 MG/3 ML VIAL.NEB NEB SCH ×4 (02:07→19:23)
[2017-01-23] MEDS: CHLORHEXIDINE GLUCONATE 15 ML UDC MM SCH ×2 (05:29→17:50)
[2017-01-23 07:45] VITALS: BP 97/65
[2017-01-23] MEDS: BACLOFEN (10 MG) 10 MG TABLET GT SCH ×3 (08:26→17:49)
[2017-01-23] MEDS: CARBAMAZEPINE 100 MG/5 ML GT SCH ×3 (08:26→17:49)
[2017-01-23] MEDS: SERTRALINE HCL 25 MG TABLET GT SCH (08:26)
[2017-01-23] MEDS: FOLIC ACID 1 MG TABLET GT SCH ×2 (08:26→17:49)
[2017-01-23] MEDS: SENNOSIDES 8.6 MG TABLET GT SCH ×2 (08:26→21:16)
[2017-01-23] MEDS: LEVETIRACETAM SOL (5 ML) 100 MG/ML UDC GT SCH ×2 (08:26→21:16)
[2017-01-23] MEDS: CHOLECALCIFEROL 1,000 UNIT TABLET (VIT D3) GT SCH (08:26)
[2017-01-23] MEDS: HEPARIN SODIUM, PORCINE 5000 UNITS/1 ML VIAL SQ SCH ×2 (08:27→21:17)
[2017-01-23] MEDS: HYDROGEN PEROXIDE 480 ML BOTTLE TP SCH ×2 (08:27→21:17)
[2017-01-23] MEDS ORDERED: IOHEXOL 50 ML IV ONE (08:43)
[2017-01-23 20:08] VITALS: BP 106/60
[2017-01-23] MEDS: POLYETHYLENE GLYCOL 3350 17 GM POWD.PACK GT SCH (21:17)
[2017-01-24] MEDS: POLYVINYL ALCOHOL 15 ML BOTTLE EACHEYE SCH ×4 (00:42→17:22)
[2017-01-24] MEDS: ALBUTEROL FS 2.5 MG/3 ML VIAL.NEB NEB SCH ×4 (01:13→19:38)
[2017-01-24] MEDS: CHLORHEXIDINE GLUCONATE 15 ML UDC MM SCH ×2 (05:42→17:22)
[2017-01-24 07:52] VITALS: BP 101/64
[2017-01-24] MEDS: FOLIC ACID 1 MG TABLET GT SCH ×2 (09:23→17:22)
[2017-01-24] MEDS: LEVETIRACETAM SOL (5 ML) 100 MG/ML UDC GT SCH ×2 (09:23→21:23)
[2017-01-24] MEDS: HEPARIN SODIUM, PORCINE 5000 UNITS/1 ML VIAL SQ SCH ×2 (09:24→21:24)
[2017-01-24] MEDS: BACLOFEN (10 MG) 10 MG TABLET GT SCH ×3 (09:24→17:22)
[2017-01-24] MEDS: SERTRALINE HCL 25 MG TABLET GT SCH (09:24)
[2017-01-24] MEDS: CARBAMAZEPINE 100 MG/5 ML GT SCH ×3 (09:24→17:22)
[2017-01-24] MEDS: CHOLECALCIFEROL 1,000 UNIT TABLET (VIT D3) GT SCH (09:24)
[2017-01-24] MEDS: SENNOSIDES 8.6 MG TABLET GT SCH ×2 (09:24→21:23)
[2017-01-24] MEDS: HYDROGEN PEROXIDE 480 ML BOTTLE TP SCH ×2 (14:15→21:24)
[2017-01-24] MEDS: POLYETHYLENE GLYCOL 3350 17 GM POWD.PACK GT SCH (21:24)
[2017-01-24 21:34] VITALS: BP 110/54
[2017-01-25] MEDS: POLYVINYL ALCOHOL 15 ML BOTTLE EACHEYE SCH ×4 (00:08→17:40)
[2017-01-25] MEDS: ALBUTEROL FS 2.5 MG/3 ML VIAL.NEB NEB SCH ×4 (01:04→19:52)
[2017-01-25] MEDS: CHLORHEXIDINE GLUCONATE 15 ML UDC MM SCH ×2 (06:06→17:40)
[2017-01-25 07:49] VITALS: BP 102/69
[2017-01-25] MEDS: BACLOFEN (10 MG) 10 MG TABLET GT SCH ×3 (08:53→16:25)
[2017-01-25] MEDS: LEVETIRACETAM SOL (5 ML) 100 MG/ML UDC GT SCH ×2 (08:53→21:08)
[2017-01-25] MEDS: CARBAMAZEPINE 100 MG/5 ML GT SCH ×3 (08:53→16:25)
[2017-01-25] MEDS: SERTRALINE HCL 25 MG TABLET GT SCH (08:53)
[2017-01-25] MEDS: SENNOSIDES 8.6 MG TABLET GT SCH ×2 (08:53→21:08)
[2017-01-25] MEDS: FOLIC ACID 1 MG TABLET GT SCH ×2 (08:53→16:25)
[2017-01-25] MEDS: CHOLECALCIFEROL 1,000 UNIT TABLET (VIT D3) GT SCH (08:53)
[2017-01-25] MEDS: HEPARIN SODIUM, PORCINE 5000 UNITS/1 ML VIAL SQ SCH ×2 (09:00→21:08)
[2017-01-25] MEDS: HYDROGEN PEROXIDE 480 ML BOTTLE TP SCH ×2 (09:42→21:08)
--- NOTE | 2017-01-25 13:00 | NUR ---
Seen and examined by Dr. Aguilar with no new order at this time. Addendum: 01/25/17 at 1847 by ISSA MURRY RN Seen and examined by Dr. Aguilar noted sacral excoriation with new orders noted and carried out. No bleeding noted. No skin breakdown noted. Skin dry and intact. Will continue to reposition patient every two hours and as needed. No s/sx of pain/discomfort. Will continue to monitor.
[2017-01-25 20:12] VITALS: BP 125/76
[2017-01-25] MEDS: ZINC OXIDE 30 GM TUBE TP SCH (21:08)
[2017-01-25] MEDS: POLYETHYLENE GLYCOL 3350 17 GM POWD.PACK GT SCH (21:09)
[2017-01-26] MEDS: POLYVINYL ALCOHOL 15 ML BOTTLE EACHEYE SCH ×4 (00:55→17:35)
[2017-01-26] MEDS: ALBUTEROL FS 2.5 MG/3 ML VIAL.NEB NEB SCH ×4 (01:22→19:58)
[2017-01-26] MEDS: CHLORHEXIDINE GLUCONATE 15 ML UDC MM SCH ×2 (05:30→17:35)
[2017-01-26 08:05] VITALS: BP 101/67
[2017-01-26] MEDS: CHOLECALCIFEROL 1,000 UNIT TABLET (VIT D3) GT SCH (09:09)
[2017-01-26] MEDS: BACLOFEN (10 MG) 10 MG TABLET GT SCH ×3 (09:09→16:38)
[2017-01-26] MEDS: HEPARIN SODIUM, PORCINE 5000 UNITS/1 ML VIAL SQ SCH ×2 (09:09→21:08)
[2017-01-26] MEDS: CARBAMAZEPINE 100 MG/5 ML GT SCH ×3 (09:09→16:38)
[2017-01-26] MEDS: LEVETIRACETAM SOL (5 ML) 100 MG/ML UDC GT SCH ×2 (09:09→21:08)
[2017-01-26] MEDS: SENNOSIDES 8.6 MG TABLET GT SCH ×2 (09:09→21:08)
[2017-01-26] MEDS: FOLIC ACID 1 MG TABLET GT SCH ×2 (09:09→16:38)
[2017-01-26] MEDS: SERTRALINE HCL 25 MG TABLET GT SCH (09:09)
[2017-01-26] MEDS: ZINC OXIDE 30 GM TUBE TP SCH ×2 (11:00→21:08)
[2017-01-26] MEDS: HYDROGEN PEROXIDE 480 ML BOTTLE TP SCH ×2 (11:00→21:08)
[2017-01-26 20:04] VITALS: BP 101/61
[2017-01-26] MEDS: POLYETHYLENE GLYCOL 3350 17 GM POWD.PACK GT SCH (21:08)
[2017-01-27] MEDS: POLYVINYL ALCOHOL 15 ML BOTTLE EACHEYE SCH ×4 (00:10→17:50)
[2017-01-27] MEDS: ALBUTEROL FS 2.5 MG/3 ML VIAL.NEB NEB SCH ×4 (01:53→20:13)
[2017-01-27] MEDS: CHLORHEXIDINE GLUCONATE 15 ML UDC MM SCH ×2 (05:35→17:50)
[2017-01-27 08:23] VITALS: BP 107/70
[2017-01-27] MEDS: CHOLECALCIFEROL 1,000 UNIT TABLET (VIT D3) GT SCH (09:30)
[2017-01-27] MEDS: BACLOFEN (10 MG) 10 MG TABLET GT SCH ×3 (09:30→16:33)
[2017-01-27] MEDS: FOLIC ACID 1 MG TABLET GT SCH ×2 (09:30→16:33)
[2017-01-27] MEDS: LEVETIRACETAM SOL (5 ML) 100 MG/ML UDC GT SCH ×2 (09:30→21:06)
[2017-01-27] MEDS: SERTRALINE HCL 25 MG TABLET GT SCH (09:30)
[2017-01-27] MEDS: CARBAMAZEPINE 100 MG/5 ML GT SCH ×3 (09:30→16:34)
[2017-01-27] MEDS: SENNOSIDES 8.6 MG TABLET GT SCH ×2 (09:30→21:06)
[2017-01-27] MEDS: HEPARIN SODIUM, PORCINE 5000 UNITS/1 ML VIAL SQ SCH ×2 (09:31→21:06)
[2017-01-27] MEDS: HYDROGEN PEROXIDE 480 ML BOTTLE TP SCH ×2 (11:30→21:07)
[2017-01-27] MEDS: ZINC OXIDE 30 GM TUBE TP SCH ×2 (11:30→21:07)
--- NOTE | 2017-01-27 16:35 | NUR ---
Notified Dr. Marlon Polanco that Botox has been ordered from the pharmacy for the pt.
[2017-01-27 20:06] VITALS: BP 125/71
[2017-01-27] MEDS: POLYETHYLENE GLYCOL 3350 17 GM POWD.PACK GT SCH (21:07)
[2017-01-28] MEDS: POLYVINYL ALCOHOL 15 ML BOTTLE EACHEYE SCH ×5 (00:02→23:53)
[2017-01-28] MEDS: ALBUTEROL FS 2.5 MG/3 ML VIAL.NEB NEB SCH ×4 (00:49→20:09)
[2017-01-28] MEDS: CHLORHEXIDINE GLUCONATE 15 ML UDC MM SCH ×2 (05:45→17:47)
[2017-01-28 08:06] VITALS: BP 113/59
[2017-01-28] MEDS: HYDROGEN PEROXIDE 480 ML BOTTLE TP SCH ×2 (09:00→21:08)
[2017-01-28] MEDS: ZINC OXIDE 30 GM TUBE TP SCH ×2 (09:00→21:08)
[2017-01-28] MEDS: LEVETIRACETAM SOL (5 ML) 100 MG/ML UDC GT SCH ×2 (09:05→21:07)
[2017-01-28] MEDS: FOLIC ACID 1 MG TABLET GT SCH ×2 (09:05→17:47)
--- NOTE | 2017-01-28 09:05 | NUR ---
WOUND CARE CONSULT: PT SEEN FOR SACRAL EXCORIATION (MOISTURE RELATED). CONCUR WITH CURRENT TREATMENT OF ZINC OXIDE AND MEPILEX. SKIN TO BE KEPT CLEAN AND DRY. DISCUSSED WITH NURSING STAFF. WILL SEE PRN. FERRER IN AGREEMENT WITH PLAN OF CARE.
[2017-01-28] MEDS: BACLOFEN (10 MG) 10 MG TABLET GT SCH ×3 (09:06→17:47)
[2017-01-28] MEDS: CARBAMAZEPINE 100 MG/5 ML GT SCH ×3 (09:06→17:47)
[2017-01-28] MEDS: SENNOSIDES 8.6 MG TABLET GT SCH ×2 (09:06→21:08)
[2017-01-28] MEDS: CHOLECALCIFEROL 1,000 UNIT TABLET (VIT D3) GT SCH (09:07)
[2017-01-28] MEDS: SERTRALINE HCL 25 MG TABLET GT SCH (09:07)
[2017-01-28] MEDS: HEPARIN SODIUM, PORCINE 5000 UNITS/1 ML VIAL SQ SCH ×2 (09:07→21:08)
[2017-01-28 19:59] VITALS: BP 106/62
[2017-01-28] MEDS: MAGNESIUM HYDROXIDE 30 ML UDC GT PRN (21:08)
[2017-01-28] MEDS: POLYETHYLENE GLYCOL 3350 17 GM POWD.PACK GT SCH (21:08)
[2017-01-29] MEDS: ALBUTEROL FS 2.5 MG/3 ML VIAL.NEB NEB SCH ×4 (02:06→19:18)
[2017-01-29] MEDS: CHLORHEXIDINE GLUCONATE 15 ML UDC MM SCH ×2 (05:25→17:03)
[2017-01-29] MEDS: POLYVINYL ALCOHOL 15 ML BOTTLE EACHEYE SCH ×4 (05:25→23:36)
[2017-01-29 07:56] VITALS: BP 110/73
[2017-01-29] MEDS: BACLOFEN (10 MG) 10 MG TABLET GT SCH ×3 (09:05→17:03)
[2017-01-29] MEDS: SERTRALINE HCL 25 MG TABLET GT SCH (09:05)
[2017-01-29] MEDS: CHOLECALCIFEROL 1,000 UNIT TABLET (VIT D3) GT SCH (09:05)
[2017-01-29] MEDS: CARBAMAZEPINE 100 MG/5 ML GT SCH ×3 (09:05→17:03)
[2017-01-29] MEDS: LEVETIRACETAM SOL (5 ML) 100 MG/ML UDC GT SCH ×2 (09:05→21:05)
[2017-01-29] MEDS: SENNOSIDES 8.6 MG TABLET GT SCH ×2 (09:05→21:06)
[2017-01-29] MEDS: FOLIC ACID 1 MG TABLET GT SCH ×2 (09:05→17:03)
[2017-01-29] MEDS: HYDROGEN PEROXIDE 480 ML BOTTLE TP SCH ×2 (09:06→21:06)
[2017-01-29] MEDS: HEPARIN SODIUM, PORCINE 5000 UNITS/1 ML VIAL SQ SCH ×2 (09:06→21:06)
[2017-01-29] MEDS: ZINC OXIDE 30 GM TUBE TP SCH ×2 (09:06→21:06)
[2017-01-29 19:48] VITALS: BP 101/54
[2017-01-29] MEDS: POLYETHYLENE GLYCOL 3350 17 GM POWD.PACK GT SCH (21:06)
[2017-01-30] MEDS: ALBUTEROL FS 2.5 MG/3 ML VIAL.NEB NEB SCH ×4 (01:53→19:28)
[2017-01-30] MEDS: CHLORHEXIDINE GLUCONATE 15 ML UDC MM SCH ×2 (05:09→17:01)
[2017-01-30] MEDS: POLYVINYL ALCOHOL 15 ML BOTTLE EACHEYE SCH ×3 (05:09→17:01)
[2017-01-30 07:47] VITALS: BP 147/55
[2017-01-30] MEDS: CHOLECALCIFEROL 1,000 UNIT TABLET (VIT D3) GT SCH (09:12)
[2017-01-30] MEDS: BACLOFEN (10 MG) 10 MG TABLET GT SCH ×3 (09:12→17:01)
[2017-01-30] MEDS: FOLIC ACID 1 MG TABLET GT SCH ×2 (09:12→17:01)
[2017-01-30] MEDS: LEVETIRACETAM SOL (5 ML) 100 MG/ML UDC GT SCH ×2 (09:12→21:45)
[2017-01-30] MEDS: SENNOSIDES 8.6 MG TABLET GT SCH ×2 (09:12→21:45)
[2017-01-30] MEDS: CARBAMAZEPINE 100 MG/5 ML GT SCH ×3 (09:12→17:01)
[2017-01-30] MEDS: SERTRALINE HCL 25 MG TABLET GT SCH (09:12)
[2017-01-30] MEDS: ZINC OXIDE 30 GM TUBE TP SCH ×2 (09:13→21:46)
[2017-01-30] MEDS: HYDROGEN PEROXIDE 480 ML BOTTLE TP SCH ×2 (09:13→21:46)
[2017-01-30] MEDS: HEPARIN SODIUM, PORCINE 5000 UNITS/1 ML VIAL SQ SCH ×2 (09:13→21:46)
[2017-01-30 19:33] VITALS: BP 110/72
[2017-01-30] MEDS: POLYETHYLENE GLYCOL 3350 17 GM POWD.PACK GT SCH (21:46)
[2017-01-31] MEDS: POLYVINYL ALCOHOL 15 ML BOTTLE EACHEYE SCH ×4 (00:34→18:42)
[2017-01-31] MEDS: ALBUTEROL FS 2.5 MG/3 ML VIAL.NEB NEB SCH ×4 (01:34→19:17)
[2017-01-31] MEDS: CHLORHEXIDINE GLUCONATE 15 ML UDC MM SCH ×2 (05:34→18:42)
[2017-01-31 07:44] VITALS: BP 107/61
[2017-01-31] MEDS: SENNOSIDES 8.6 MG TABLET GT SCH ×2 (09:08→21:09)
[2017-01-31] MEDS: BACLOFEN (10 MG) 10 MG TABLET GT SCH ×3 (09:08→16:40)
[2017-01-31] MEDS: LEVETIRACETAM SOL (5 ML) 100 MG/ML UDC GT SCH ×2 (09:08→21:09)
[2017-01-31] MEDS: CARBAMAZEPINE 100 MG/5 ML GT SCH ×3 (09:08→16:40)
[2017-01-31] MEDS: SERTRALINE HCL 25 MG TABLET GT SCH (09:08)
[2017-01-31] MEDS: CHOLECALCIFEROL 1,000 UNIT TABLET (VIT D3) GT SCH (09:08)
[2017-01-31] MEDS: FOLIC ACID 1 MG TABLET GT SCH ×2 (09:08→16:40)
[2017-01-31] MEDS: HEPARIN SODIUM, PORCINE 5000 UNITS/1 ML VIAL SQ SCH ×2 (09:09→21:10)
[2017-01-31] MEDS: HYDROGEN PEROXIDE 480 ML BOTTLE TP SCH ×2 (09:09→21:10)
[2017-01-31] MEDS: ZINC OXIDE 30 GM TUBE TP SCH ×2 (09:09→21:10)
[2017-01-31 19:49] VITALS: BP 103/58
[2017-01-31] MEDS: POLYETHYLENE GLYCOL 3350 17 GM POWD.PACK GT SCH (21:10)
[2017-02-01] MEDS: POLYVINYL ALCOHOL 15 ML BOTTLE EACHEYE SCH ×5 (00:51→23:17)
[2017-02-01] MEDS: ALBUTEROL FS 2.5 MG/3 ML VIAL.NEB NEB SCH ×4 (01:12→19:23)
[2017-02-01] MEDS: CHLORHEXIDINE GLUCONATE 15 ML UDC MM SCH ×2 (05:41→17:27)
[2017-02-01 07:48] VITALS: BP 139/60
[2017-02-01] MEDS: SERTRALINE HCL 25 MG TABLET GT SCH (08:57)
[2017-02-01] MEDS: LEVETIRACETAM SOL (5 ML) 100 MG/ML UDC GT SCH ×2 (08:57→21:07)
[2017-02-01] MEDS: BACLOFEN (10 MG) 10 MG TABLET GT SCH ×3 (08:57→16:00)
[2017-02-01] MEDS: SENNOSIDES 8.6 MG TABLET GT SCH ×2 (08:57→21:07)
[2017-02-01] MEDS: FOLIC ACID 1 MG TABLET GT SCH ×2 (08:57→16:00)
[2017-02-01] MEDS: CHOLECALCIFEROL 1,000 UNIT TABLET (VIT D3) GT SCH (08:57)
[2017-02-01] MEDS: CARBAMAZEPINE 100 MG/5 ML GT SCH ×3 (09:00→16:00)
[2017-02-01] MEDS: HEPARIN SODIUM, PORCINE 5000 UNITS/1 ML VIAL SQ SCH ×2 (09:01→21:07)
[2017-02-01] MEDS: HYDROGEN PEROXIDE 480 ML BOTTLE TP SCH ×2 (09:31→21:07)
[2017-02-01] MEDS: ZINC OXIDE 30 GM TUBE TP SCH ×2 (09:31→21:07)
[2017-02-01 20:12] VITALS: BP 126/65
[2017-02-01] MEDS: POLYETHYLENE GLYCOL 3350 17 GM POWD.PACK GT SCH (21:07)
[2017-02-02] MEDS: ALBUTEROL FS 2.5 MG/3 ML VIAL.NEB NEB SCH ×4 (01:14→19:43)
[2017-02-02] MEDS: POLYVINYL ALCOHOL 15 ML BOTTLE EACHEYE SCH ×3 (05:19→17:54)
[2017-02-02] MEDS: CHLORHEXIDINE GLUCONATE 15 ML UDC MM SCH ×2 (05:19→17:54)
[2017-02-02 07:46] VITALS: BP 112/78
[2017-02-02] MEDS: LEVETIRACETAM SOL (5 ML) 100 MG/ML UDC GT SCH ×2 (09:05→21:04)
[2017-02-02] MEDS: SENNOSIDES 8.6 MG TABLET GT SCH ×2 (09:05→21:04)
[2017-02-02] MEDS: HYDROGEN PEROXIDE 480 ML BOTTLE TP SCH ×2 (09:05→21:05)
[2017-02-02] MEDS: ZINC OXIDE 30 GM TUBE TP SCH ×2 (09:05→21:05)
[2017-02-02] MEDS: CARBAMAZEPINE 100 MG/5 ML GT SCH ×3 (09:05→17:53)
[2017-02-02] MEDS: FOLIC ACID 1 MG TABLET GT SCH ×2 (09:05→17:53)
[2017-02-02] MEDS: SERTRALINE HCL 25 MG TABLET GT SCH (09:05)
[2017-02-02] MEDS: HEPARIN SODIUM, PORCINE 5000 UNITS/1 ML VIAL SQ SCH ×2 (09:05→21:04)
[2017-02-02] MEDS: BACLOFEN (10 MG) 10 MG TABLET GT SCH ×3 (09:05→17:53)
[2017-02-02] MEDS: CHOLECALCIFEROL 1,000 UNIT TABLET (VIT D3) GT SCH (09:05)
[2017-02-02 20:16] VITALS: BP 107/58
[2017-02-02] MEDS: POLYETHYLENE GLYCOL 3350 17 GM POWD.PACK GT SCH (21:05)
[2017-02-03] MEDS: POLYVINYL ALCOHOL 15 ML BOTTLE EACHEYE SCH ×5 (00:25→23:38)
[2017-02-03] MEDS: ALBUTEROL FS 2.5 MG/3 ML VIAL.NEB NEB SCH ×4 (01:36→20:04)
[2017-02-03] MEDS: CHLORHEXIDINE GLUCONATE 15 ML UDC MM SCH ×2 (05:28→17:20)
[2017-02-03 07:52] VITALS: BP 113/69
[2017-02-03] MEDS: HYDROGEN PEROXIDE 480 ML BOTTLE TP SCH ×2 (08:43→21:10)
[2017-02-03] MEDS: ZINC OXIDE 30 GM TUBE TP SCH ×2 (08:43→21:10)
[2017-02-03] MEDS: SENNOSIDES 8.6 MG TABLET GT SCH ×2 (08:43→21:09)
[2017-02-03] MEDS: CHOLECALCIFEROL 1,000 UNIT TABLET (VIT D3) GT SCH (08:43)
[2017-02-03] MEDS: HEPARIN SODIUM, PORCINE 5000 UNITS/1 ML VIAL SQ SCH ×2 (08:43→21:10)
[2017-02-03] MEDS: CARBAMAZEPINE 100 MG/5 ML GT SCH ×3 (08:43→17:20)
[2017-02-03] MEDS: SERTRALINE HCL 25 MG TABLET GT SCH (08:43)
[2017-02-03] MEDS: LEVETIRACETAM SOL (5 ML) 100 MG/ML UDC GT SCH ×2 (08:43→21:09)
[2017-02-03] MEDS: BACLOFEN (10 MG) 10 MG TABLET GT SCH ×3 (08:43→17:20)
[2017-02-03] MEDS: FOLIC ACID 1 MG TABLET GT SCH ×2 (08:43→17:20)
--- NOTE | 2017-02-03 18:50 | NUR ---
Notified Dr. Mason that pt's Botox is now available.
[2017-02-03 19:59] VITALS: BP 120/72
[2017-02-03] MEDS: POLYETHYLENE GLYCOL 3350 17 GM POWD.PACK GT SCH (21:10)
[2017-02-04] MEDS: ALBUTEROL FS 2.5 MG/3 ML VIAL.NEB NEB SCH ×5 (01:44→19:47)
[2017-02-04] MEDS: CHLORHEXIDINE GLUCONATE 15 ML UDC MM SCH ×2 (06:00→17:41)
[2017-02-04] MEDS: POLYVINYL ALCOHOL 15 ML BOTTLE EACHEYE SCH ×3 (06:00→17:41)
[2017-02-04 08:07] VITALS: BP 127/68
[2017-02-04] MEDS: HYDROGEN PEROXIDE 480 ML BOTTLE TP SCH ×2 (09:00→21:35)
[2017-02-04] MEDS: ZINC OXIDE 30 GM TUBE TP SCH ×2 (09:00→21:35)
[2017-02-04] MEDS: SERTRALINE HCL 25 MG TABLET GT SCH (09:18)
[2017-02-04] MEDS: LEVETIRACETAM SOL (5 ML) 100 MG/ML UDC GT SCH ×2 (09:18→21:35)
[2017-02-04] MEDS: CARBAMAZEPINE 100 MG/5 ML GT SCH ×3 (09:18→17:41)
[2017-02-04] MEDS: CHOLECALCIFEROL 1,000 UNIT TABLET (VIT D3) GT SCH (09:18)
[2017-02-04] MEDS: SENNOSIDES 8.6 MG TABLET GT SCH ×2 (09:18→21:35)
[2017-02-04] MEDS: FOLIC ACID 1 MG TABLET GT SCH ×2 (09:18→17:41)
[2017-02-04] MEDS: BACLOFEN (10 MG) 10 MG TABLET GT SCH ×3 (09:18→17:41)
[2017-02-04] MEDS: HEPARIN SODIUM, PORCINE 5000 UNITS/1 ML VIAL SQ SCH ×2 (09:19→21:35)
[2017-02-04 20:04] VITALS: BP 132/65
[2017-02-04] MEDS: POLYETHYLENE GLYCOL 3350 17 GM POWD.PACK GT SCH (21:36)
[2017-02-05] MEDS: POLYVINYL ALCOHOL 15 ML BOTTLE EACHEYE SCH ×4 (00:38→17:00)
[2017-02-05] MEDS: ALBUTEROL FS 2.5 MG/3 ML VIAL.NEB NEB SCH ×5 (01:27→19:59)
[2017-02-05] MEDS: CHLORHEXIDINE GLUCONATE 15 ML UDC MM SCH ×2 (06:35→17:00)
[2017-02-05 07:43] VITALS: BP 112/72
[2017-02-05] MEDS: HEPARIN SODIUM, PORCINE 5000 UNITS/1 ML VIAL SQ SCH ×2 (09:00→20:17)
[2017-02-05] MEDS: SERTRALINE HCL 25 MG TABLET GT SCH (09:00)
[2017-02-05] MEDS: SENNOSIDES 8.6 MG TABLET GT SCH ×2 (09:00→20:17)
[2017-02-05] MEDS: HYDROGEN PEROXIDE 480 ML BOTTLE TP SCH ×2 (09:00→20:17)
[2017-02-05] MEDS: ZINC OXIDE 30 GM TUBE TP SCH ×2 (09:00→20:17)
[2017-02-05] MEDS: CHOLECALCIFEROL 1,000 UNIT TABLET (VIT D3) GT SCH (09:00)
[2017-02-05] MEDS: CARBAMAZEPINE 100 MG/5 ML GT SCH ×3 (09:00→17:00)
[2017-02-05] MEDS: LEVETIRACETAM SOL (5 ML) 100 MG/ML UDC GT SCH ×2 (09:00→20:17)
[2017-02-05] MEDS: BACLOFEN (10 MG) 10 MG TABLET GT SCH ×3 (09:00→17:00)
[2017-02-05] MEDS: FOLIC ACID 1 MG TABLET GT SCH ×2 (09:00→17:00)
--- NOTE | 2017-02-05 15:23 | NUR ---
Dr. Marlon Polanco called and said he will not be able to come today to administer the Botox, but he will administer it on Thursday02/09/17.
[2017-02-05 19:58] VITALS: BP 112/78
[2017-02-05] MEDS: POLYETHYLENE GLYCOL 3350 17 GM POWD.PACK GT SCH (22:00)
[2017-02-06] MEDS: POLYVINYL ALCOHOL 15 ML BOTTLE EACHEYE SCH ×5 (00:06→23:27)
[2017-02-06] MEDS: ALBUTEROL FS 2.5 MG/3 ML VIAL.NEB NEB SCH ×4 (02:34→19:38)
[2017-02-06] MEDS: CHLORHEXIDINE GLUCONATE 15 ML UDC MM SCH ×2 (05:43→18:25)
[2017-02-06 07:56] VITALS: BP 117/51
[2017-02-06] MEDS: LEVETIRACETAM SOL (5 ML) 100 MG/ML UDC GT SCH ×2 (08:22→21:09)
[2017-02-06] MEDS: SERTRALINE HCL 25 MG TABLET GT SCH (08:22)
[2017-02-06] MEDS: CARBAMAZEPINE 100 MG/5 ML GT SCH ×3 (08:22→17:00)
[2017-02-06] MEDS: BACLOFEN (10 MG) 10 MG TABLET GT SCH ×3 (08:22→17:00)
[2017-02-06] MEDS: FOLIC ACID 1 MG TABLET GT SCH ×2 (08:22→17:00)
[2017-02-06] MEDS: CHOLECALCIFEROL 1,000 UNIT TABLET (VIT D3) GT SCH (08:22)
[2017-02-06] MEDS: SENNOSIDES 8.6 MG TABLET GT SCH ×2 (08:22→21:09)
[2017-02-06] MEDS: HEPARIN SODIUM, PORCINE 5000 UNITS/1 ML VIAL SQ SCH ×2 (08:23→21:10)
[2017-02-06] MEDS: ZINC OXIDE 30 GM TUBE TP SCH ×2 (08:23→21:10)
[2017-02-06] MEDS: HYDROGEN PEROXIDE 480 ML BOTTLE TP SCH ×2 (08:23→21:10)
--- NOTE | 2017-02-06 14:06 | NUR ---
Resident seen by Dr Aguilar with order for Chloraseptic spray noted and carried out. Mother at bedside and made aware of new order.
[2017-02-06] MEDS: PHENOL-PHENOLATE CHLORASEPTIC 177 ML SPRAY MM SCH ×2 (17:30→18:00)
[2017-02-06 20:49] VITALS: BP 101/57
[2017-02-06] MEDS: POLYETHYLENE GLYCOL 3350 17 GM POWD.PACK GT SCH (21:10)
[2017-02-07] MEDS: ALBUTEROL FS 2.5 MG/3 ML VIAL.NEB NEB SCH ×4 (02:27→19:24)
[2017-02-07] MEDS: CHLORHEXIDINE GLUCONATE 15 ML UDC MM SCH ×2 (05:48→17:08)
[2017-02-07] MEDS: POLYVINYL ALCOHOL 15 ML BOTTLE EACHEYE SCH ×3 (05:48→17:08)
[2017-02-07] MEDS: PHENOL-PHENOLATE CHLORASEPTIC 177 ML SPRAY MM SCH ×4 (07:30→16:33)
[2017-02-07 08:00] VITALS: BP 137/62
[2017-02-07] MEDS: FOLIC ACID 1 MG TABLET GT SCH ×2 (09:18→16:23)
[2017-02-07] MEDS: LEVETIRACETAM SOL (5 ML) 100 MG/ML UDC GT SCH ×2 (09:18→21:24)
[2017-02-07] MEDS: HEPARIN SODIUM, PORCINE 5000 UNITS/1 ML VIAL SQ SCH ×2 (09:18→21:25)
[2017-02-07] MEDS: CHOLECALCIFEROL 1,000 UNIT TABLET (VIT D3) GT SCH (09:18)
[2017-02-07] MEDS: BACLOFEN (10 MG) 10 MG TABLET GT SCH ×3 (09:18→16:23)
[2017-02-07] MEDS: CARBAMAZEPINE 100 MG/5 ML GT SCH ×3 (09:18→16:23)
[2017-02-07] MEDS: SERTRALINE HCL 25 MG TABLET GT SCH (09:18)
[2017-02-07] MEDS: SENNOSIDES 8.6 MG TABLET GT SCH ×2 (09:18→21:24)
[2017-02-07] MEDS: HYDROGEN PEROXIDE 480 ML BOTTLE TP SCH ×2 (09:19→21:25)
[2017-02-07] MEDS: ZINC OXIDE 30 GM TUBE TP SCH ×2 (09:19→21:25)
[2017-02-07 20:05] VITALS: BP 104/60
[2017-02-07] MEDS: POLYETHYLENE GLYCOL 3350 17 GM POWD.PACK GT SCH (21:25)
[2017-02-08] MEDS: POLYVINYL ALCOHOL 15 ML BOTTLE EACHEYE SCH ×4 (00:16→18:06)
[2017-02-08] MEDS: ALBUTEROL FS 2.5 MG/3 ML VIAL.NEB NEB SCH ×4 (01:40→19:28)
[2017-02-08] MEDS: CHLORHEXIDINE GLUCONATE 15 ML UDC MM SCH ×2 (05:41→18:07)
[2017-02-08] MEDS: PHENOL-PHENOLATE CHLORASEPTIC 177 ML SPRAY MM SCH ×3 (07:30→18:05)
[2017-02-08 07:42] VITALS: BP 126/73
[2017-02-08] MEDS: LEVETIRACETAM SOL (5 ML) 100 MG/ML UDC GT SCH ×2 (08:58→20:30)
[2017-02-08] MEDS: SERTRALINE HCL 25 MG TABLET GT SCH (08:58)
[2017-02-08] MEDS: CHOLECALCIFEROL 1,000 UNIT TABLET (VIT D3) GT SCH (08:58)
[2017-02-08] MEDS: SENNOSIDES 8.6 MG TABLET GT SCH ×2 (08:58→20:30)
[2017-02-08] MEDS: BACLOFEN (10 MG) 10 MG TABLET GT SCH ×3 (08:58→18:00)
[2017-02-08] MEDS: CARBAMAZEPINE 100 MG/5 ML GT SCH ×3 (08:58→18:00)
[2017-02-08] MEDS: FOLIC ACID 1 MG TABLET GT SCH ×2 (08:58→18:00)
[2017-02-08] MEDS: HYDROGEN PEROXIDE 480 ML BOTTLE TP SCH ×2 (08:59→20:33)
[2017-02-08] MEDS: ZINC OXIDE 30 GM TUBE TP SCH ×2 (08:59→20:33)
[2017-02-08] MEDS: HEPARIN SODIUM, PORCINE 5000 UNITS/1 ML VIAL SQ SCH ×2 (08:59→20:32)
--- NOTE | 2017-02-08 12:30 | NUR ---
Seen and examined by Dr. Aguilar with no new order.
[2017-02-08] MEDS ORDERED: HYDROGEN PEROXIDE 480 ML BOTTLE TP PRN (16:30)
[2017-02-08] MEDS ORDERED: BOTOX IJ PRN (16:30)
[2017-02-08] MEDS ORDERED: LORAZEPAM INJ 2 MG/ML VIAL IM PRN (16:30)
[2017-02-08] MEDS ORDERED: BOOST PLUS FOOD-CHOCLATE 237 ML BOX PO PRN (16:30)
[2017-02-08 19:54] VITALS: BP 124/70
[2017-02-08] MEDS: POLYETHYLENE GLYCOL 3350 17 GM POWD.PACK GT SCH (22:00)
[2017-02-09] MEDS: POLYVINYL ALCOHOL 15 ML BOTTLE EACHEYE SCH ×4 (00:07→17:53)
[2017-02-09] MEDS: ALBUTEROL FS 2.5 MG/3 ML VIAL.NEB NEB SCH ×4 (01:35→19:03)
[2017-02-09] MEDS: CHLORHEXIDINE GLUCONATE 15 ML UDC MM SCH ×2 (05:19→17:53)
[2017-02-09] MEDS: PHENOL-PHENOLATE CHLORASEPTIC 177 ML SPRAY MM SCH ×3 (07:30→17:53)
[2017-02-09 08:07] VITALS: BP 127/81
[2017-02-09] MEDS: BACLOFEN (10 MG) 10 MG TABLET GT SCH ×3 (09:19→17:52)
[2017-02-09] MEDS: LEVETIRACETAM SOL (5 ML) 100 MG/ML UDC GT SCH ×2 (09:19→20:26)
[2017-02-09] MEDS: CARBAMAZEPINE 100 MG/5 ML GT SCH ×3 (09:19→17:52)
[2017-02-09] MEDS: CHOLECALCIFEROL 1,000 UNIT TABLET (VIT D3) GT SCH (09:19)
[2017-02-09] MEDS: FOLIC ACID 1 MG TABLET GT SCH ×2 (09:19→17:52)
[2017-02-09] MEDS: SERTRALINE HCL 25 MG TABLET GT SCH (09:20)
[2017-02-09] MEDS: ZINC OXIDE 30 GM TUBE TP SCH ×2 (09:20→20:28)
[2017-02-09] MEDS: HYDROGEN PEROXIDE 480 ML BOTTLE TP SCH ×2 (09:20→20:28)
[2017-02-09] MEDS: HEPARIN SODIUM, PORCINE 5000 UNITS/1 ML VIAL SQ SCH ×2 (09:20→20:27)
[2017-02-09] MEDS: SENNOSIDES 8.6 MG TABLET GT SCH ×2 (09:21→20:26)
--- NOTE | 2017-02-09 16:15 | NUR ---
Dr. Marlon Polanco administered Botox to bilateral upper and lower extremities. Pt tolerated procedure well.
[2017-02-09 19:48] VITALS: BP 117/61
[2017-02-09] MEDS: POLYETHYLENE GLYCOL 3350 17 GM POWD.PACK GT SCH (22:11)
[2017-02-10] MEDS: POLYVINYL ALCOHOL 15 ML BOTTLE EACHEYE SCH ×5 (00:13→23:52)
[2017-02-10] MEDS: ALBUTEROL FS 2.5 MG/3 ML VIAL.NEB NEB SCH ×4 (02:06→19:54)
[2017-02-10] MEDS: CHLORHEXIDINE GLUCONATE 15 ML UDC MM SCH ×2 (05:51→17:10)
[2017-02-10 08:11] VITALS: BP 112/58
[2017-02-10] MEDS: CHOLECALCIFEROL 1,000 UNIT TABLET (VIT D3) GT SCH (08:33)
[2017-02-10] MEDS: FOLIC ACID 1 MG TABLET GT SCH ×2 (08:33→17:10)
[2017-02-10] MEDS: LEVETIRACETAM SOL (5 ML) 100 MG/ML UDC GT SCH ×2 (08:33→20:18)
[2017-02-10] MEDS: SERTRALINE HCL 25 MG TABLET GT SCH (08:33)
[2017-02-10] MEDS: BACLOFEN (10 MG) 10 MG TABLET GT SCH ×3 (08:33→17:10)
[2017-02-10] MEDS: SENNOSIDES 8.6 MG TABLET GT SCH ×2 (08:33→20:18)
[2017-02-10] MEDS: CARBAMAZEPINE 100 MG/5 ML GT SCH ×3 (08:33→17:10)
[2017-02-10] MEDS: HEPARIN SODIUM, PORCINE 5000 UNITS/1 ML VIAL SQ SCH ×2 (08:33→20:19)
[2017-02-10] MEDS: HYDROGEN PEROXIDE 480 ML BOTTLE TP SCH ×2 (09:00→20:19)
[2017-02-10] MEDS: ZINC OXIDE 30 GM TUBE TP SCH ×2 (09:00→20:19)
[2017-02-10 19:49] VITALS: BP 112/66
[2017-02-10] MEDS: POLYETHYLENE GLYCOL 3350 17 GM POWD.PACK GT SCH (22:24)
[2017-02-11] MEDS: ALBUTEROL FS 2.5 MG/3 ML VIAL.NEB NEB SCH ×4 (01:20→19:36)
[2017-02-11] MEDS: POLYVINYL ALCOHOL 15 ML BOTTLE EACHEYE SCH ×3 (06:09→17:18)
[2017-02-11] MEDS: CHLORHEXIDINE GLUCONATE 15 ML UDC MM SCH ×2 (06:10→17:18)
[2017-02-11 07:44] VITALS: BP 105/59
[2017-02-11] MEDS: HEPARIN SODIUM, PORCINE 5000 UNITS/1 ML VIAL SQ SCH ×2 (08:39→21:08)
[2017-02-11] MEDS: ZINC OXIDE 30 GM TUBE TP SCH ×2 (08:39→21:08)
[2017-02-11] MEDS: FOLIC ACID 1 MG TABLET GT SCH ×2 (08:39→17:18)
[2017-02-11] MEDS: BACLOFEN (10 MG) 10 MG TABLET GT SCH ×3 (08:39→17:18)
[2017-02-11] MEDS: CARBAMAZEPINE 100 MG/5 ML GT SCH ×3 (08:39→17:18)
[2017-02-11] MEDS: HYDROGEN PEROXIDE 480 ML BOTTLE TP SCH ×2 (08:39→21:08)
[2017-02-11] MEDS: SENNOSIDES 8.6 MG TABLET GT SCH ×2 (08:39→21:08)
[2017-02-11] MEDS: LEVETIRACETAM SOL (5 ML) 100 MG/ML UDC GT SCH ×2 (08:39→21:08)
[2017-02-11] MEDS: SERTRALINE HCL 25 MG TABLET GT SCH (08:39)
[2017-02-11] MEDS: CHOLECALCIFEROL 1,000 UNIT TABLET (VIT D3) GT SCH (08:39)
[2017-02-11 19:53] VITALS: BP 108/70
[2017-02-11] MEDS: POLYETHYLENE GLYCOL 3350 17 GM POWD.PACK GT SCH (21:08)
[2017-02-12] MEDS: POLYVINYL ALCOHOL 15 ML BOTTLE EACHEYE SCH ×4 (00:11→18:31)
[2017-02-12] MEDS: ALBUTEROL FS 2.5 MG/3 ML VIAL.NEB NEB SCH ×4 (02:21→19:50)
[2017-02-12] MEDS: CHLORHEXIDINE GLUCONATE 15 ML UDC MM SCH ×2 (05:42→18:31)
[2017-02-12 07:15] VITALS: BP 119/67
[2017-02-12] MEDS: CHOLECALCIFEROL 1,000 UNIT TABLET (VIT D3) GT SCH (08:48)
[2017-02-12] MEDS: BACLOFEN (10 MG) 10 MG TABLET GT SCH ×3 (08:48→17:00)
[2017-02-12] MEDS: SENNOSIDES 8.6 MG TABLET GT SCH ×2 (08:48→21:23)
[2017-02-12] MEDS: SERTRALINE HCL 25 MG TABLET GT SCH (08:48)
[2017-02-12] MEDS: CARBAMAZEPINE 100 MG/5 ML GT SCH ×3 (08:48→17:00)
[2017-02-12] MEDS: LEVETIRACETAM SOL (5 ML) 100 MG/ML UDC GT SCH ×2 (08:48→21:23)
[2017-02-12] MEDS: FOLIC ACID 1 MG TABLET GT SCH ×2 (08:48→17:00)
[2017-02-12] MEDS: ZINC OXIDE 30 GM TUBE TP SCH ×2 (08:49→21:24)
[2017-02-12] MEDS: HEPARIN SODIUM, PORCINE 5000 UNITS/1 ML VIAL SQ SCH ×2 (08:49→21:24)
[2017-02-12] MEDS: HYDROGEN PEROXIDE 480 ML BOTTLE TP SCH ×2 (08:49→21:24)
--- NOTE | 2017-02-12 18:30 | NUR ---
Asked Dr. Aguilar if he can reduce the dose of pt's Zoloft. He said the pt already has a miniscule dose and pt is stable on that dose.
[2017-02-12 20:04] VITALS: BP 127/77
[2017-02-12] MEDS: POLYETHYLENE GLYCOL 3350 17 GM POWD.PACK GT SCH (21:24)
[2017-02-13] MEDS: POLYVINYL ALCOHOL 15 ML BOTTLE EACHEYE SCH ×4 (00:12→18:26)
[2017-02-13] MEDS: ALBUTEROL FS 2.5 MG/3 ML VIAL.NEB NEB SCH ×4 (01:43→20:21)
[2017-02-13] MEDS: CHLORHEXIDINE GLUCONATE 15 ML UDC MM SCH ×2 (05:38→18:26)
[2017-02-13 08:03] VITALS: BP 118/75
[2017-02-13] MEDS: SERTRALINE HCL 25 MG TABLET GT SCH (09:00)
[2017-02-13] MEDS: CHOLECALCIFEROL 1,000 UNIT TABLET (VIT D3) GT SCH (09:00)
[2017-02-13] MEDS: ZINC OXIDE 30 GM TUBE TP SCH ×2 (09:00→21:22)
[2017-02-13] MEDS: HEPARIN SODIUM, PORCINE 5000 UNITS/1 ML VIAL SQ SCH ×2 (09:00→21:22)
[2017-02-13] MEDS: LEVETIRACETAM SOL (5 ML) 100 MG/ML UDC GT SCH ×2 (09:00→21:21)
[2017-02-13] MEDS: BACLOFEN (10 MG) 10 MG TABLET GT SCH ×3 (09:00→17:00)
[2017-02-13] MEDS: CARBAMAZEPINE 100 MG/5 ML GT SCH ×3 (09:00→17:00)
[2017-02-13] MEDS: HYDROGEN PEROXIDE 480 ML BOTTLE TP SCH ×2 (09:00→21:22)
[2017-02-13] MEDS: SENNOSIDES 8.6 MG TABLET GT SCH ×2 (09:00→21:21)
[2017-02-13] MEDS: FOLIC ACID 1 MG TABLET GT SCH ×2 (09:00→17:00)
--- NOTE | 2017-02-13 10:31 | NUR ---
RT PT AWAKE BUT UNABLE TO FOLLOW COMMANDS. MONTHLY TRACH CHANGE DONE WITH NEW PORTEX 9 UNCUFFED TRACH. EQUAL BILATERAL BREATHE SOUNDS AND CHEST RISE. NO BLEEDING OR REDNESS AT TRACH SITE. NO RESPIRATORY DISTRESS NOTED AT THIS TIME, WILL CONTINUE TO MONITOR. Addendum: 02/13/17 at 1646 by RENATO OSORIO RT Amended: Links added.
[2017-02-13] MEDS: ACETAMINOPHEN 650 MG/20.3 ML UDC GT PRN (10:46)
--- NOTE | 2017-02-13 15:10 | NUR ---
INTERDISCIPLINARY PLAN OF CARE CONFERENCE was held today. Resident's mother and father invited to attend but decided not to. New orders were reviewed. Dr. Lubin and the interdisciplinary team reviewed the current plan of care in detail. Resident is stable and has been up in her gerichair. Per subacute energy and sustainability manager, mother has concern that resident goes to one side and she requested for staff to reposition her differently. PT will follow up.
[2017-02-13 19:22] VITALS: BP 117/55
[2017-02-13] MEDS: POLYETHYLENE GLYCOL 3350 17 GM POWD.PACK GT SCH (21:22)
[2017-02-14] MEDS: POLYVINYL ALCOHOL 15 ML BOTTLE EACHEYE SCH ×5 (00:20→23:10)
[2017-02-14] MEDS: ALBUTEROL FS 2.5 MG/3 ML VIAL.NEB NEB SCH ×4 (01:08→19:04)
[2017-02-14] MEDS: CHLORHEXIDINE GLUCONATE 15 ML UDC MM SCH ×2 (05:31→18:23)
[2017-02-14 07:28] VITALS: BP 132/67
[2017-02-14] MEDS: BACLOFEN (10 MG) 10 MG TABLET GT SCH ×3 (09:00→17:00)
[2017-02-14] MEDS: HEPARIN SODIUM, PORCINE 5000 UNITS/1 ML VIAL SQ SCH ×2 (09:00→21:18)
[2017-02-14] MEDS: LEVETIRACETAM SOL (5 ML) 100 MG/ML UDC GT SCH ×2 (09:00→21:18)
[2017-02-14] MEDS: CARBAMAZEPINE 100 MG/5 ML GT SCH ×3 (09:00→17:00)
[2017-02-14] MEDS: HYDROGEN PEROXIDE 480 ML BOTTLE TP SCH ×2 (09:00→21:18)
[2017-02-14] MEDS: SENNOSIDES 8.6 MG TABLET GT SCH ×2 (09:00→21:18)
[2017-02-14] MEDS: CHOLECALCIFEROL 1,000 UNIT TABLET (VIT D3) GT SCH (09:00)
[2017-02-14] MEDS: ZINC OXIDE 30 GM TUBE TP SCH ×2 (09:00→21:18)
[2017-02-14] MEDS: SERTRALINE HCL 25 MG TABLET GT SCH (09:00)
[2017-02-14] MEDS: FOLIC ACID 1 MG TABLET GT SCH ×2 (09:00→17:00)
[2017-02-14 19:55] VITALS: BP 111/63
[2017-02-14] MEDS: POLYETHYLENE GLYCOL 3350 17 GM POWD.PACK GT SCH (21:18)
[2017-02-15] MEDS: ALBUTEROL FS 2.5 MG/3 ML VIAL.NEB NEB SCH ×4 (01:22→19:27)
[2017-02-15] MEDS: CHLORHEXIDINE GLUCONATE 15 ML UDC MM SCH ×2 (05:30→17:01)
[2017-02-15] MEDS: POLYVINYL ALCOHOL 15 ML BOTTLE EACHEYE SCH ×3 (05:30→17:01)
[2017-02-15 07:41] VITALS: BP 106/65
[2017-02-15] MEDS: LEVETIRACETAM SOL (5 ML) 100 MG/ML UDC GT SCH ×2 (08:57→20:57)
[2017-02-15] MEDS: CARBAMAZEPINE 100 MG/5 ML GT SCH ×3 (08:57→17:01)
[2017-02-15] MEDS: FOLIC ACID 1 MG TABLET GT SCH ×2 (08:57→17:01)
[2017-02-15] MEDS: SERTRALINE HCL 25 MG TABLET GT SCH (08:57)
[2017-02-15] MEDS: CHOLECALCIFEROL 1,000 UNIT TABLET (VIT D3) GT SCH (08:57)
[2017-02-15] MEDS: BACLOFEN (10 MG) 10 MG TABLET GT SCH ×3 (08:57→17:01)
[2017-02-15] MEDS: SENNOSIDES 8.6 MG TABLET GT SCH ×2 (08:57→20:57)
[2017-02-15] MEDS: HYDROGEN PEROXIDE 480 ML BOTTLE TP SCH ×2 (08:58→20:58)
[2017-02-15] MEDS: HEPARIN SODIUM, PORCINE 5000 UNITS/1 ML VIAL SQ SCH ×2 (08:58→20:58)
[2017-02-15] MEDS: ZINC OXIDE 30 GM TUBE TP SCH ×2 (08:59→20:58)
[2017-02-15 19:49] VITALS: BP 123/65
[2017-02-15] MEDS: POLYETHYLENE GLYCOL 3350 17 GM POWD.PACK GT SCH (22:32)
[2017-02-16] MEDS: POLYVINYL ALCOHOL 15 ML BOTTLE EACHEYE SCH ×4 (00:19→18:43)
[2017-02-16] MEDS: ALBUTEROL FS 2.5 MG/3 ML VIAL.NEB NEB SCH ×4 (01:15→19:56)
[2017-02-16] MEDS: CHLORHEXIDINE GLUCONATE 15 ML UDC MM SCH ×2 (05:35→18:43)
[2017-02-16 07:33] VITALS: BP 125/75
[2017-02-16] MEDS: LEVETIRACETAM SOL (5 ML) 100 MG/ML UDC GT SCH ×2 (08:40→20:31)
[2017-02-16] MEDS: CARBAMAZEPINE 100 MG/5 ML GT SCH ×3 (08:40→17:00)
[2017-02-16] MEDS: BACLOFEN (10 MG) 10 MG TABLET GT SCH ×3 (08:40→17:00)
[2017-02-16] MEDS: SENNOSIDES 8.6 MG TABLET GT SCH ×2 (08:40→20:31)
[2017-02-16] MEDS: FOLIC ACID 1 MG TABLET GT SCH ×2 (08:40→17:00)
[2017-02-16] MEDS: CHOLECALCIFEROL 1,000 UNIT TABLET (VIT D3) GT SCH (08:40)
[2017-02-16] MEDS: SERTRALINE HCL 25 MG TABLET GT SCH (08:40)
[2017-02-16] MEDS: HEPARIN SODIUM, PORCINE 5000 UNITS/1 ML VIAL SQ SCH ×2 (08:41→20:32)
[2017-02-16] MEDS: HYDROGEN PEROXIDE 480 ML BOTTLE TP SCH ×2 (09:00→20:32)
[2017-02-16] MEDS: ZINC OXIDE 30 GM TUBE TP SCH ×2 (09:00→20:32)
--- NOTE | 2017-02-16 15:38 | NUR ---
Asked resident's mother if she wanted factorer to come and see the resident. Mother stated that she takes care of her nails and does not see any problems. She denied for factorer to see the resident. She did ask for a machine joint cutter and one was provided to her by the charge nurse.
[2017-02-16 19:54] VITALS: BP 102/63
[2017-02-16] MEDS: POLYETHYLENE GLYCOL 3350 17 GM POWD.PACK GT SCH (22:12)
[2017-02-17] MEDS: POLYVINYL ALCOHOL 15 ML BOTTLE EACHEYE SCH ×4 (00:11→17:05)
[2017-02-17] MEDS: ALBUTEROL FS 2.5 MG/3 ML VIAL.NEB NEB SCH ×4 (01:40→19:25)
[2017-02-17] MEDS: CHLORHEXIDINE GLUCONATE 15 ML UDC MM SCH ×2 (06:05→17:05)
[2017-02-17 07:57] VITALS: BP 115/67
[2017-02-17] MEDS: LEVETIRACETAM SOL (5 ML) 100 MG/ML UDC GT SCH ×2 (08:22→20:31)
[2017-02-17] MEDS: SENNOSIDES 8.6 MG TABLET GT SCH ×2 (08:22→20:33)
[2017-02-17] MEDS: BACLOFEN (10 MG) 10 MG TABLET GT SCH ×3 (08:22→17:05)
[2017-02-17] MEDS: FOLIC ACID 1 MG TABLET GT SCH ×2 (08:22→17:04)
[2017-02-17] MEDS: CHOLECALCIFEROL 1,000 UNIT TABLET (VIT D3) GT SCH (08:23)
[2017-02-17] MEDS: CARBAMAZEPINE 100 MG/5 ML GT SCH ×3 (08:23→17:05)
[2017-02-17] MEDS: SERTRALINE HCL 25 MG TABLET GT SCH (08:23)
[2017-02-17] MEDS: HEPARIN SODIUM, PORCINE 5000 UNITS/1 ML VIAL SQ SCH ×2 (08:23→20:34)
[2017-02-17] MEDS: ZINC OXIDE 30 GM TUBE TP SCH ×2 (09:00→20:34)
[2017-02-17] MEDS: HYDROGEN PEROXIDE 480 ML BOTTLE TP SCH ×2 (09:00→20:34)
[2017-02-17 19:49] VITALS: BP 127/72
[2017-02-17] MEDS: POLYETHYLENE GLYCOL 3350 17 GM POWD.PACK GT SCH (22:05)
[2017-02-18] MEDS: POLYVINYL ALCOHOL 15 ML BOTTLE EACHEYE SCH ×3 (00:45→17:55)
[2017-02-18] MEDS: ALBUTEROL FS 2.5 MG/3 ML VIAL.NEB NEB SCH ×4 (01:15→19:53)
[2017-02-18] MEDS: FOLIC ACID 1 MG TABLET GT SCH ×2 (09:25→16:54)
[2017-02-18] MEDS: CARBAMAZEPINE 100 MG/5 ML GT SCH ×3 (09:25→16:54)
[2017-02-18] MEDS: BACLOFEN (10 MG) 10 MG TABLET GT SCH ×3 (09:25→16:54)
[2017-02-18] MEDS: LEVETIRACETAM SOL (5 ML) 100 MG/ML UDC GT SCH ×2 (09:25→21:27)
[2017-02-18] MEDS: SENNOSIDES 8.6 MG TABLET GT SCH ×2 (09:25→21:27)
[2017-02-18] MEDS: SERTRALINE HCL 25 MG TABLET GT SCH (09:25)
[2017-02-18] MEDS: CHOLECALCIFEROL 1,000 UNIT TABLET (VIT D3) GT SCH (09:25)
[2017-02-18] MEDS: ZINC OXIDE 30 GM TUBE TP SCH ×2 (09:26→21:28)
[2017-02-18] MEDS: HYDROGEN PEROXIDE 480 ML BOTTLE TP SCH ×2 (09:26→21:28)
[2017-02-18] MEDS: HEPARIN SODIUM, PORCINE 5000 UNITS/1 ML VIAL SQ SCH ×2 (09:26→21:28)
--- NOTE | 2017-02-18 10:38 | NUR ---
FRAME ALIGNER LVN ADVISED NEW SACRAL SKIN BREAKDOWN SPOKE WITH NKECHI PRIMARY COUNSELOR ORDERS PUT IN SHE WILL SEE THE PATIENT TODAY OR TOMORROW.
[2017-02-18 12:32] VITALS: BP 115/72
--- NOTE | 2017-02-18 14:03 | NUR ---
Resident and her mother attended the family support group meeting. Mother was able to further explore her feelings about resident being in the hospital and shared her concerns with the SW. SW to address concerns with subacute product marketing manager Danyelle.
[2017-02-18] MEDS: CHLORHEXIDINE GLUCONATE 15 ML UDC MM SCH (17:55)
[2017-02-18 20:29] VITALS: BP 105/66
[2017-02-18] MEDS: POLYETHYLENE GLYCOL 3350 17 GM POWD.PACK GT SCH (21:28)
[2017-02-19] MEDS: POLYVINYL ALCOHOL 15 ML BOTTLE EACHEYE SCH ×5 (00:27→23:53)
[2017-02-19] MEDS: ALBUTEROL FS 2.5 MG/3 ML VIAL.NEB NEB SCH ×4 (01:33→20:11)
[2017-02-19] MEDS: CHLORHEXIDINE GLUCONATE 15 ML UDC MM SCH ×2 (05:38→17:11)
[2017-02-19] MEDS: BACLOFEN (10 MG) 10 MG TABLET GT SCH ×3 (07:41→17:11)
[2017-02-19] MEDS: SERTRALINE HCL 25 MG TABLET GT SCH (07:41)
[2017-02-19] MEDS: FOLIC ACID 1 MG TABLET GT SCH ×2 (07:41→17:13)
[2017-02-19] MEDS: SENNOSIDES 8.6 MG TABLET GT SCH ×2 (07:44→21:27)
[2017-02-19] MEDS: HYDROGEN PEROXIDE 480 ML BOTTLE TP SCH ×2 (07:44→21:28)
[2017-02-19] MEDS: CARBAMAZEPINE 100 MG/5 ML GT SCH ×3 (07:45→17:11)
[2017-02-19] MEDS: LEVETIRACETAM SOL (5 ML) 100 MG/ML UDC GT SCH ×2 (07:46→21:27)
[2017-02-19] MEDS: ZINC OXIDE 30 GM TUBE TP SCH ×3 (07:47→21:28)
[2017-02-19 07:51] VITALS: BP 108/70
[2017-02-19] MEDS: HEPARIN SODIUM, PORCINE 5000 UNITS/1 ML VIAL SQ SCH ×2 (07:53→21:28)
[2017-02-19] MEDS: CHOLECALCIFEROL 1,000 UNIT TABLET (VIT D3) GT SCH (07:54)
--- NOTE | 2017-02-19 08:00 | NUR ---
Dr. Aguilar with order for Xylocaine viscous PO before meals x 3 days d/t mouth discomfort. Order noted and carried out.
--- NOTE | 2017-02-19 08:40 | NUR ---
WOUND CARE CONSULT PATIENT SEEN AND PATIENT PRESENTS WITH BILATERAL BUTTOCK AND GLUTEAL FOLD EXCORIATIONS RELATED TO MOISTURE. RECOMMEND CLEANSE THE AREAS WITH SOAP AND WATER, DRY WELL, APPLY ZINC OXIDE OINTMENT, COVER WITH MEPILEX FOAM DRESSING Q SHIFT AND PRN EACH INCONT EPISODE X 21 DAYS. ALL DISCUSSED WITH TONGUE PRESSER AND FOOD AND DRUG RESEARCH SCIENTIST AT THE BEDSIDE WELL WITH PATIENT'S MOM. PATIENT ON 1ST STEP LOW AIRLOSS MATTRESS, AND ALL PRESSURE ULCER PREVENTION MEASURES NOTED TO BE IN PLACE AT THIS TIME.
--- NOTE | 2017-02-19 10:16 | NUR ---
WOUND CARE COMPLETED PER HOSPITAL PROTOCOL AND WOUND CARE INSTRUCTION
[2017-02-19] MEDS: LIDOCAINE VISCOUS 2% UD 15 ML UDC PO SCH ×2 (13:00→17:00)
--- NOTE | 2017-02-19 13:00 | NUR ---
LIDOCAINE MED IS NOT AVAILABLE
--- NOTE | 2017-02-19 15:51 | NUR ---
Faxed referral to Dr. Millan [facility] ( ) for regular eye check up appt, as the resident is due for her yearly checkup. Mother in agreement.
[2017-02-19 19:59] VITALS: BP 110/63
[2017-02-19] MEDS: ACETAMINOPHEN 650 MG/20.3 ML UDC GT PRN (20:30)
[2017-02-19] MEDS: MAGNESIUM HYDROXIDE 30 ML UDC GT PRN (21:28)
[2017-02-19] MEDS: POLYETHYLENE GLYCOL 3350 17 GM POWD.PACK GT SCH (21:28)
[2017-02-20] MEDS: ALBUTEROL FS 2.5 MG/3 ML VIAL.NEB NEB SCH ×4 (01:12→19:12)
[2017-02-20] MEDS: CHLORHEXIDINE GLUCONATE 15 ML UDC MM SCH ×2 (05:18→18:32)
[2017-02-20] MEDS: POLYVINYL ALCOHOL 15 ML BOTTLE EACHEYE SCH ×3 (05:18→18:32)
[2017-02-20 07:41] VITALS: BP 126/70
[2017-02-20] MEDS: LIDOCAINE VISCOUS 2% UD 15 ML UDC PO SCH ×3 (09:00→16:50)
[2017-02-20] MEDS: HYDROGEN PEROXIDE 480 ML BOTTLE TP SCH ×2 (09:00→20:21)
[2017-02-20] MEDS: ZINC OXIDE 30 GM TUBE TP SCH ×4 (09:00→20:22)
[2017-02-20] MEDS: BACLOFEN (10 MG) 10 MG TABLET GT SCH ×3 (09:05→16:50)
[2017-02-20] MEDS: CHOLECALCIFEROL 1,000 UNIT TABLET (VIT D3) GT SCH (09:05)
[2017-02-20] MEDS: LEVETIRACETAM SOL (5 ML) 100 MG/ML UDC GT SCH ×2 (09:05→20:22)
[2017-02-20] MEDS: SERTRALINE HCL 25 MG TABLET GT SCH (09:05)
[2017-02-20] MEDS: CARBAMAZEPINE 100 MG/5 ML GT SCH ×3 (09:05→16:50)
[2017-02-20] MEDS: FOLIC ACID 1 MG TABLET GT SCH ×2 (09:05→16:50)
[2017-02-20] MEDS: SENNOSIDES 8.6 MG TABLET GT SCH ×2 (09:05→20:21)
[2017-02-20] MEDS: HEPARIN SODIUM, PORCINE 5000 UNITS/1 ML VIAL SQ SCH ×2 (09:08→20:25)
--- NOTE | 2017-02-20 09:41 | NUR ---
Seen by Dr. Aguilar. Notified him that pt is leaning more to her left side, right shoulder appears higher than left shoulder, received order for PT evaluation. Mother aware.
[2017-02-20 20:17] VITALS: BP 108/51
[2017-02-20 21:00] VITALS: BP 108/51
[2017-02-20] MEDS: POLYETHYLENE GLYCOL 3350 17 GM POWD.PACK GT SCH (22:26)
[2017-02-21] MEDS: POLYVINYL ALCOHOL 15 ML BOTTLE EACHEYE SCH ×4 (00:27→17:18)
[2017-02-21] MEDS: ALBUTEROL FS 2.5 MG/3 ML VIAL.NEB NEB SCH ×5 (01:13→19:25)
[2017-02-21] MEDS: CHLORHEXIDINE GLUCONATE 15 ML UDC MM SCH ×2 (05:19→17:17)
[2017-02-21 07:35] VITALS: BP 140/64
[2017-02-21] MEDS: LEVETIRACETAM SOL (5 ML) 100 MG/ML UDC GT SCH ×2 (09:57→20:11)
[2017-02-21] MEDS: BACLOFEN (10 MG) 10 MG TABLET GT SCH ×3 (09:57→17:18)
[2017-02-21] MEDS: SERTRALINE HCL 25 MG TABLET GT SCH (09:57)
[2017-02-21] MEDS: CARBAMAZEPINE 100 MG/5 ML GT SCH ×3 (09:57→17:17)
[2017-02-21] MEDS: CHOLECALCIFEROL 1,000 UNIT TABLET (VIT D3) GT SCH (09:57)
[2017-02-21] MEDS: SENNOSIDES 8.6 MG TABLET GT SCH ×2 (09:57→20:11)
[2017-02-21] MEDS: FOLIC ACID 1 MG TABLET GT SCH ×2 (09:57→17:17)
[2017-02-21] MEDS: LIDOCAINE VISCOUS 2% UD 15 ML UDC PO SCH ×3 (09:57→17:18)
[2017-02-21] MEDS: HYDROGEN PEROXIDE 480 ML BOTTLE TP SCH ×2 (09:58→20:11)
[2017-02-21] MEDS: ZINC OXIDE 30 GM TUBE TP SCH ×4 (09:58→20:11)
[2017-02-21] MEDS: HEPARIN SODIUM, PORCINE 5000 UNITS/1 ML VIAL SQ SCH ×2 (09:58→20:11)
[2017-02-21] MEDS: CHLORHEXIDINE GLUCONATE 4% 118 ML BOTTLE TP SCH (12:00)
[2017-02-21 20:05] VITALS: BP 108/58
[2017-02-21] MEDS: POLYETHYLENE GLYCOL 3350 17 GM POWD.PACK GT SCH (21:01)
[2017-02-22] MEDS: POLYVINYL ALCOHOL 15 ML BOTTLE EACHEYE SCH ×4 (00:25→18:07)
[2017-02-22] MEDS: ALBUTEROL FS 2.5 MG/3 ML VIAL.NEB NEB SCH ×4 (01:57→20:02)
[2017-02-22] MEDS: CHLORHEXIDINE GLUCONATE 15 ML UDC MM SCH ×2 (05:09→18:07)
[2017-02-22 07:40] VITALS: BP 108/66
[2017-02-22] MEDS: CHOLECALCIFEROL 1,000 UNIT TABLET (VIT D3) GT SCH (09:31)
[2017-02-22] MEDS: FOLIC ACID 1 MG TABLET GT SCH ×2 (09:31→17:00)
[2017-02-22] MEDS: BACLOFEN (10 MG) 10 MG TABLET GT SCH ×3 (09:31→17:00)
[2017-02-22] MEDS: LEVETIRACETAM SOL (5 ML) 100 MG/ML UDC GT SCH ×2 (09:31→21:11)
[2017-02-22] MEDS: CARBAMAZEPINE 100 MG/5 ML GT SCH ×3 (09:31→17:00)
[2017-02-22] MEDS: SENNOSIDES 8.6 MG TABLET GT SCH ×2 (09:31→21:11)
[2017-02-22] MEDS: SERTRALINE HCL 25 MG TABLET GT SCH (09:31)
[2017-02-22] MEDS: LIDOCAINE VISCOUS 2% UD 15 ML UDC PO SCH (09:35)
[2017-02-22] MEDS: HEPARIN SODIUM, PORCINE 5000 UNITS/1 ML VIAL SQ SCH ×2 (09:37→21:11)
[2017-02-22] MEDS: HYDROGEN PEROXIDE 480 ML BOTTLE TP SCH ×2 (09:40→21:11)
[2017-02-22] MEDS: ZINC OXIDE 30 GM TUBE TP SCH ×4 (09:40→21:12)
[2017-02-22] MEDS: CHLORHEXIDINE GLUCONATE 4% 118 ML BOTTLE TP SCH (12:00)
[2017-02-22 20:12] VITALS: BP 106/65
[2017-02-22] MEDS: POLYETHYLENE GLYCOL 3350 17 GM POWD.PACK GT SCH (21:12)
[2017-02-23] MEDS: ALBUTEROL FS 2.5 MG/3 ML VIAL.NEB NEB SCH ×4 (01:52→20:02)
[2017-02-23] MEDS: CHLORHEXIDINE GLUCONATE 15 ML UDC MM SCH ×2 (05:44→18:03)
[2017-02-23] MEDS: POLYVINYL ALCOHOL 15 ML BOTTLE EACHEYE SCH ×5 (05:44→23:03)
[2017-02-23 07:40] VITALS: BP 122/72
[2017-02-23] MEDS: ZINC OXIDE 30 GM TUBE TP SCH ×4 (09:00→20:20)
[2017-02-23] MEDS: LEVETIRACETAM SOL (5 ML) 100 MG/ML UDC GT SCH ×2 (09:31→20:19)
[2017-02-23] MEDS: CHOLECALCIFEROL 1,000 UNIT TABLET (VIT D3) GT SCH (09:31)
[2017-02-23] MEDS: SERTRALINE HCL 25 MG TABLET GT SCH (09:31)
[2017-02-23] MEDS: FOLIC ACID 1 MG TABLET GT SCH ×2 (09:31→17:00)
[2017-02-23] MEDS: BACLOFEN (10 MG) 10 MG TABLET GT SCH ×3 (09:31→17:00)
[2017-02-23] MEDS: CARBAMAZEPINE 100 MG/5 ML GT SCH ×3 (09:31→17:00)
[2017-02-23] MEDS: SENNOSIDES 8.6 MG TABLET GT SCH ×2 (09:31→20:19)
[2017-02-23] MEDS: HEPARIN SODIUM, PORCINE 5000 UNITS/1 ML VIAL SQ SCH ×2 (09:32→20:20)
[2017-02-23] MEDS: HYDROGEN PEROXIDE 480 ML BOTTLE TP SCH ×2 (10:15→20:20)
[2017-02-23 19:57] VITALS: BP 106/57
[2017-02-23] MEDS: POLYETHYLENE GLYCOL 3350 17 GM POWD.PACK GT SCH (21:27)
[2017-02-24] MEDS: ALBUTEROL FS 2.5 MG/3 ML VIAL.NEB NEB SCH ×4 (01:30→19:12)
[2017-02-24] MEDS: POLYVINYL ALCOHOL 15 ML BOTTLE EACHEYE SCH ×4 (05:19→23:31)
[2017-02-24] MEDS: CHLORHEXIDINE GLUCONATE 15 ML UDC MM SCH ×2 (05:19→17:46)
[2017-02-24 08:04] VITALS: BP 124/78
[2017-02-24] MEDS: SENNOSIDES 8.6 MG TABLET GT SCH ×2 (08:49→20:20)
[2017-02-24] MEDS: HEPARIN SODIUM, PORCINE 5000 UNITS/1 ML VIAL SQ SCH ×2 (08:49→20:20)
[2017-02-24] MEDS: CHOLECALCIFEROL 1,000 UNIT TABLET (VIT D3) GT SCH (08:49)
[2017-02-24] MEDS: LEVETIRACETAM SOL (5 ML) 100 MG/ML UDC GT SCH ×2 (08:49→20:20)
[2017-02-24] MEDS: SERTRALINE HCL 25 MG TABLET GT SCH (08:49)
[2017-02-24] MEDS: FOLIC ACID 1 MG TABLET GT SCH ×2 (08:49→17:46)
[2017-02-24] MEDS: CARBAMAZEPINE 100 MG/5 ML GT SCH ×3 (08:49→17:46)
[2017-02-24] MEDS: BACLOFEN (10 MG) 10 MG TABLET GT SCH ×3 (08:49→17:46)
[2017-02-24] MEDS: ZINC OXIDE 30 GM TUBE TP SCH ×2 (10:00→20:20)
[2017-02-24] MEDS: HYDROGEN PEROXIDE 480 ML BOTTLE TP SCH ×2 (10:00→20:20)
[2017-02-24 21:25] VITALS: BP 121/50
[2017-02-24] MEDS: POLYETHYLENE GLYCOL 3350 17 GM POWD.PACK GT SCH (21:26)
[2017-02-25] MEDS: ALBUTEROL FS 2.5 MG/3 ML VIAL.NEB NEB SCH ×4 (01:15→19:58)
[2017-02-25] MEDS: CHLORHEXIDINE GLUCONATE 15 ML UDC MM SCH ×2 (05:10→18:49)
[2017-02-25] MEDS: POLYVINYL ALCOHOL 15 ML BOTTLE EACHEYE SCH ×3 (05:10→18:49)
[2017-02-25 07:57] VITALS: BP 119/76
[2017-02-25] MEDS: FOLIC ACID 1 MG TABLET GT SCH ×2 (08:12→17:00)
[2017-02-25] MEDS: SENNOSIDES 8.6 MG TABLET GT SCH ×2 (08:12→20:36)
[2017-02-25] MEDS: CHOLECALCIFEROL 1,000 UNIT TABLET (VIT D3) GT SCH (08:12)
[2017-02-25] MEDS: BACLOFEN (10 MG) 10 MG TABLET GT SCH ×3 (08:12→17:00)
[2017-02-25] MEDS: LEVETIRACETAM SOL (5 ML) 100 MG/ML UDC GT SCH ×2 (08:12→20:36)
[2017-02-25] MEDS: SERTRALINE HCL 25 MG TABLET GT SCH (08:12)
[2017-02-25] MEDS: CARBAMAZEPINE 100 MG/5 ML GT SCH ×3 (08:12→17:00)
[2017-02-25] MEDS: HEPARIN SODIUM, PORCINE 5000 UNITS/1 ML VIAL SQ SCH ×2 (08:25→20:37)
[2017-02-25] MEDS: ZINC OXIDE 30 GM TUBE TP SCH ×2 (08:26→20:37)
[2017-02-25] MEDS: HYDROGEN PEROXIDE 480 ML BOTTLE TP SCH ×2 (08:26→20:37)
[2017-02-25 19:54] VITALS: BP 101/59
[2017-02-25] MEDS: POLYETHYLENE GLYCOL 3350 17 GM POWD.PACK GT SCH (21:39)
[2017-02-26] MEDS: POLYVINYL ALCOHOL 15 ML BOTTLE EACHEYE SCH ×4 (00:21→17:28)
[2017-02-26] MEDS: ALBUTEROL FS 2.5 MG/3 ML VIAL.NEB NEB SCH ×4 (02:14→19:50)
[2017-02-26] MEDS: CHLORHEXIDINE GLUCONATE 15 ML UDC MM SCH ×2 (05:17→17:28)
[2017-02-26 07:37] VITALS: BP 151/75
[2017-02-26] MEDS: LEVETIRACETAM SOL (5 ML) 100 MG/ML UDC GT SCH ×2 (08:32→20:26)
[2017-02-26] MEDS: SENNOSIDES 8.6 MG TABLET GT SCH ×2 (08:32→20:26)
[2017-02-26] MEDS: ZINC OXIDE 30 GM TUBE TP SCH ×2 (08:32→20:26)
[2017-02-26] MEDS: HYDROGEN PEROXIDE 480 ML BOTTLE TP SCH ×2 (08:32→20:26)
[2017-02-26] MEDS: SERTRALINE HCL 25 MG TABLET GT SCH (08:32)
[2017-02-26] MEDS: CHOLECALCIFEROL 1,000 UNIT TABLET (VIT D3) GT SCH (08:32)
[2017-02-26] MEDS: FOLIC ACID 1 MG TABLET GT SCH ×2 (08:32→16:47)
[2017-02-26] MEDS: BACLOFEN (10 MG) 10 MG TABLET GT SCH ×3 (08:32→16:47)
[2017-02-26] MEDS: HEPARIN SODIUM, PORCINE 5000 UNITS/1 ML VIAL SQ SCH ×2 (08:32→20:26)
[2017-02-26] MEDS: CARBAMAZEPINE 100 MG/5 ML GT SCH ×3 (08:32→16:47)
[2017-02-26 19:32] VITALS: BP 118/76
[2017-02-26] MEDS: POLYETHYLENE GLYCOL 3350 17 GM POWD.PACK GT SCH (21:10)
[2017-02-27] MEDS: POLYVINYL ALCOHOL 15 ML BOTTLE EACHEYE SCH ×5 (00:05→23:36)
[2017-02-27] MEDS: ALBUTEROL FS 2.5 MG/3 ML VIAL.NEB NEB SCH ×4 (01:42→20:02)
[2017-02-27] MEDS: CHLORHEXIDINE GLUCONATE 15 ML UDC MM SCH ×2 (05:12→18:20)
[2017-02-27 08:00] VITALS: BP 109/78
[2017-02-27] MEDS: SERTRALINE HCL 25 MG TABLET GT SCH (08:54)
[2017-02-27] MEDS: CHOLECALCIFEROL 1,000 UNIT TABLET (VIT D3) GT SCH (08:54)
[2017-02-27] MEDS: SENNOSIDES 8.6 MG TABLET GT SCH ×2 (08:54→20:18)
[2017-02-27] MEDS: LEVETIRACETAM SOL (5 ML) 100 MG/ML UDC GT SCH ×2 (08:54→20:18)
[2017-02-27] MEDS: FOLIC ACID 1 MG TABLET GT SCH ×2 (08:54→17:00)
[2017-02-27] MEDS: BACLOFEN (10 MG) 10 MG TABLET GT SCH ×3 (08:54→17:00)
[2017-02-27] MEDS: CARBAMAZEPINE 100 MG/5 ML GT SCH ×3 (08:54→17:00)
[2017-02-27] MEDS: HYDROGEN PEROXIDE 480 ML BOTTLE TP SCH ×2 (08:55→20:18)
[2017-02-27] MEDS: ZINC OXIDE 30 GM TUBE TP SCH ×2 (08:55→20:18)
[2017-02-27] MEDS: HEPARIN SODIUM, PORCINE 5000 UNITS/1 ML VIAL SQ SCH ×2 (08:55→20:18)
--- NOTE | 2017-02-27 10:05 | NUR ---
Received call from Dr. Millan, the financial coach, and he stated that he can come by today instead of Thursday. Called Darrel Jamison ([phone]) and he stated it was okay for financial coach to see her today. Obtained number for Mrs. Swift ([phone]) and informed her that he was seeing her today instead of Thursday. She stated she was just concerned about right eye redness and SW communicated this to Dr. Millan. She also stated if he can write something about staff turning off the bed light at night as this seems to irritate her eyes. Communicated this to Dr. Millan. SHe also wanted to know who her STRATEGIC ACCOUNT MANAGER assigned today was and SW let her know that she will check and will call her back. HILTON called her back and informed her that the STRATEGIC ACCOUNT MANAGER was Rachna. She stated "ah okay, she is very good so I can do my things for the day in peace."
--- NOTE | 2017-02-27 11:42 | NUR ---
Resident seen by Dr. Millan (rides supervisor). He stated that he did not see any eye redness and resident will continue to receive artificial tears. No new order given by Dr. Millan. Mrs. Swift ([phone]) notified via voicemail. Follow up recommended in 9-12 months.
[2017-02-27 19:32] VITALS: BP 108/54
[2017-02-27] MEDS: POLYETHYLENE GLYCOL 3350 17 GM POWD.PACK GT SCH (21:15)
[2017-02-28] MEDS: ALBUTEROL FS 2.5 MG/3 ML VIAL.NEB NEB SCH ×4 (01:01→19:09)
[2017-02-28] MEDS: POLYVINYL ALCOHOL 15 ML BOTTLE EACHEYE SCH ×3 (05:22→17:34)
[2017-02-28] MEDS: CHLORHEXIDINE GLUCONATE 15 ML UDC MM SCH ×2 (05:22→17:34)
[2017-02-28 08:00] VITALS: BP 130/71
[2017-02-28] MEDS: FOLIC ACID 1 MG TABLET GT SCH ×2 (08:45→17:34)
[2017-02-28] MEDS: LEVETIRACETAM SOL (5 ML) 100 MG/ML UDC GT SCH ×2 (08:45→20:33)
[2017-02-28] MEDS: BACLOFEN (10 MG) 10 MG TABLET GT SCH ×3 (08:45→17:34)
[2017-02-28] MEDS: HEPARIN SODIUM, PORCINE 5000 UNITS/1 ML VIAL SQ SCH ×2 (08:46→20:34)
[2017-02-28] MEDS: ZINC OXIDE 30 GM TUBE TP SCH ×2 (08:46→20:34)
[2017-02-28] MEDS: CARBAMAZEPINE 100 MG/5 ML GT SCH ×3 (08:46→17:34)
[2017-02-28] MEDS: SENNOSIDES 8.6 MG TABLET GT SCH ×2 (08:46→20:33)
[2017-02-28] MEDS: HYDROGEN PEROXIDE 480 ML BOTTLE TP SCH ×2 (08:46→20:34)
[2017-02-28] MEDS: CHOLECALCIFEROL 1,000 UNIT TABLET (VIT D3) GT SCH (08:46)
[2017-02-28] MEDS: SERTRALINE HCL 25 MG TABLET GT SCH (08:46)
[2017-02-28 19:30] VITALS: BP 113/59
[2017-02-28] MEDS: POLYETHYLENE GLYCOL 3350 17 GM POWD.PACK GT SCH (21:16)
[2017-03-01] MEDS: POLYVINYL ALCOHOL 15 ML BOTTLE EACHEYE SCH ×4 (00:47→17:26)
[2017-03-01] MEDS: ALBUTEROL FS 2.5 MG/3 ML VIAL.NEB NEB SCH ×4 (01:43→19:53)
[2017-03-01] MEDS: CHLORHEXIDINE GLUCONATE 15 ML UDC MM SCH ×2 (05:18→17:26)
[2017-03-01 07:59] VITALS: BP 117/40
[2017-03-01] MEDS: SENNOSIDES 8.6 MG TABLET GT SCH ×2 (08:43→21:03)
[2017-03-01] MEDS: BACLOFEN (10 MG) 10 MG TABLET GT SCH ×3 (08:43→16:29)
[2017-03-01] MEDS: LEVETIRACETAM SOL (5 ML) 100 MG/ML UDC GT SCH ×2 (08:43→21:03)
[2017-03-01] MEDS: CARBAMAZEPINE 100 MG/5 ML GT SCH ×3 (08:43→16:29)
[2017-03-01] MEDS: FOLIC ACID 1 MG TABLET GT SCH ×2 (08:43→16:29)
[2017-03-01] MEDS: SERTRALINE HCL 25 MG TABLET GT SCH (08:44)
[2017-03-01] MEDS: CHOLECALCIFEROL 1,000 UNIT TABLET (VIT D3) GT SCH (08:44)
[2017-03-01] MEDS: HYDROGEN PEROXIDE 480 ML BOTTLE TP SCH ×2 (08:45→21:03)
[2017-03-01] MEDS: ZINC OXIDE 30 GM TUBE TP SCH ×2 (08:45→21:03)
[2017-03-01] MEDS: HEPARIN SODIUM, PORCINE 5000 UNITS/1 ML VIAL SQ SCH ×2 (08:45→21:03)
[2017-03-01 20:22] VITALS: BP 106/70
[2017-03-01] MEDS: POLYETHYLENE GLYCOL 3350 17 GM POWD.PACK GT SCH (21:03)
[2017-03-02] MEDS: POLYVINYL ALCOHOL 15 ML BOTTLE EACHEYE SCH ×5 (00:05→23:40)
[2017-03-02] MEDS: ALBUTEROL FS 2.5 MG/3 ML VIAL.NEB NEB SCH ×4 (01:07→19:30)
[2017-03-02] MEDS: CHLORHEXIDINE GLUCONATE 15 ML UDC MM SCH ×2 (05:13→18:01)
[2017-03-02] MEDS: MAGNESIUM HYDROXIDE 30 ML UDC GT PRN (06:10)
[2017-03-02 08:00] VITALS: BP 107/57
[2017-03-02] MEDS: FOLIC ACID 1 MG TABLET GT SCH ×2 (08:43→17:00)
[2017-03-02] MEDS: BACLOFEN (10 MG) 10 MG TABLET GT SCH ×3 (08:44→17:00)
[2017-03-02] MEDS: SERTRALINE HCL 25 MG TABLET GT SCH (08:44)
[2017-03-02] MEDS: CHOLECALCIFEROL 1,000 UNIT TABLET (VIT D3) GT SCH (08:44)
[2017-03-02] MEDS: LEVETIRACETAM SOL (5 ML) 100 MG/ML UDC GT SCH ×2 (08:44→20:13)
[2017-03-02] MEDS: SENNOSIDES 8.6 MG TABLET GT SCH ×2 (08:44→20:13)
[2017-03-02] MEDS: CARBAMAZEPINE 100 MG/5 ML GT SCH ×3 (08:44→17:00)
[2017-03-02] MEDS: HEPARIN SODIUM, PORCINE 5000 UNITS/1 ML VIAL SQ SCH ×2 (08:44→20:14)
[2017-03-02] MEDS: ZINC OXIDE 30 GM TUBE TP SCH ×2 (10:30→20:14)
[2017-03-02] MEDS: HYDROGEN PEROXIDE 480 ML BOTTLE TP SCH ×2 (10:30→20:14)
--- NOTE | 2017-03-02 13:19 | NUR ---
RT PT NO IN ROOM AT THE MOMENT. PT IS OUT DOING ACTIVITIES WITH FAMILY MEMBER.
[2017-03-02 20:40] VITALS: BP 119/68
[2017-03-02] MEDS: POLYETHYLENE GLYCOL 3350 17 GM POWD.PACK GT SCH (21:15)
[2017-03-03] MEDS: ALBUTEROL FS 2.5 MG/3 ML VIAL.NEB NEB SCH ×5 (00:32→19:30)
[2017-03-03] MEDS: POLYVINYL ALCOHOL 15 ML BOTTLE EACHEYE SCH ×4 (05:06→23:20)
[2017-03-03] MEDS: CHLORHEXIDINE GLUCONATE 15 ML UDC MM SCH ×2 (05:06→18:57)
[2017-03-03 07:49] VITALS: BP 116/73
[2017-03-03] MEDS: CHOLECALCIFEROL 1,000 UNIT TABLET (VIT D3) GT SCH (09:14)
[2017-03-03] MEDS: BACLOFEN (10 MG) 10 MG TABLET GT SCH ×3 (09:14→17:00)
[2017-03-03] MEDS: SERTRALINE HCL 25 MG TABLET GT SCH (09:14)
[2017-03-03] MEDS: SENNOSIDES 8.6 MG TABLET GT SCH ×2 (09:14→20:15)
[2017-03-03] MEDS: CARBAMAZEPINE 100 MG/5 ML GT SCH ×3 (09:14→17:00)
[2017-03-03] MEDS: LEVETIRACETAM SOL (5 ML) 100 MG/ML UDC GT SCH ×2 (09:14→20:15)
[2017-03-03] MEDS: FOLIC ACID 1 MG TABLET GT SCH ×2 (09:14→17:00)
[2017-03-03] MEDS: HEPARIN SODIUM, PORCINE 5000 UNITS/1 ML VIAL SQ SCH ×2 (09:15→20:15)
[2017-03-03] MEDS: ZINC OXIDE 30 GM TUBE TP SCH ×2 (10:45→20:16)
[2017-03-03] MEDS: HYDROGEN PEROXIDE 480 ML BOTTLE TP SCH ×2 (10:45→20:15)
[2017-03-03 20:16] VITALS: BP 126/58
[2017-03-03] MEDS: POLYETHYLENE GLYCOL 3350 17 GM POWD.PACK GT SCH (21:40)
[2017-03-04] MEDS: ALBUTEROL FS 2.5 MG/3 ML VIAL.NEB NEB SCH ×4 (01:30→19:30)
[2017-03-04] MEDS: POLYVINYL ALCOHOL 15 ML BOTTLE EACHEYE SCH ×3 (05:08→18:11)
[2017-03-04] MEDS: CHLORHEXIDINE GLUCONATE 15 ML UDC MM SCH ×2 (05:08→18:11)
[2017-03-04 07:36] VITALS: BP 118/78
[2017-03-04] MEDS: CARBAMAZEPINE 100 MG/5 ML GT SCH ×3 (09:03→17:00)
[2017-03-04] MEDS: LEVETIRACETAM SOL (5 ML) 100 MG/ML UDC GT SCH ×2 (09:03→21:01)
[2017-03-04] MEDS: SERTRALINE HCL 25 MG TABLET GT SCH (09:03)
[2017-03-04] MEDS: FOLIC ACID 1 MG TABLET GT SCH ×2 (09:03→17:00)
[2017-03-04] MEDS: CHOLECALCIFEROL 1,000 UNIT TABLET (VIT D3) GT SCH ×2 (09:03→21:01)
[2017-03-04] MEDS: SENNOSIDES 8.6 MG TABLET GT SCH ×2 (09:03→21:01)
[2017-03-04] MEDS: BACLOFEN (10 MG) 10 MG TABLET GT SCH ×3 (09:03→17:00)
[2017-03-04] MEDS: HEPARIN SODIUM, PORCINE 5000 UNITS/1 ML VIAL SQ SCH ×2 (09:17→21:02)
[2017-03-04] MEDS: HYDROGEN PEROXIDE 480 ML BOTTLE TP SCH ×2 (09:17→21:02)
[2017-03-04] MEDS: ZINC OXIDE 30 GM TUBE TP SCH ×2 (09:17→21:02)
[2017-03-04 19:57] VITALS: BP 105/59
[2017-03-04] MEDS: POLYETHYLENE GLYCOL 3350 17 GM POWD.PACK GT SCH (21:02)
[2017-03-05] MEDS: POLYVINYL ALCOHOL 15 ML BOTTLE EACHEYE SCH ×4 (00:58→18:27)
[2017-03-05] MEDS: ALBUTEROL FS 2.5 MG/3 ML VIAL.NEB NEB SCH ×4 (01:37→19:52)
[2017-03-05] MEDS: CHLORHEXIDINE GLUCONATE 15 ML UDC MM SCH ×2 (06:08→18:27)
[2017-03-05 07:42] VITALS: BP 112/65
[2017-03-05] MEDS: FOLIC ACID 1 MG TABLET GT SCH ×2 (08:55→17:00)
[2017-03-05] MEDS: CARBAMAZEPINE 100 MG/5 ML GT SCH ×3 (08:55→17:00)
[2017-03-05] MEDS: SENNOSIDES 8.6 MG TABLET GT SCH ×2 (08:55→21:04)
[2017-03-05] MEDS: LEVETIRACETAM SOL (5 ML) 100 MG/ML UDC GT SCH ×2 (08:55→21:04)
[2017-03-05] MEDS: BACLOFEN (10 MG) 10 MG TABLET GT SCH ×3 (08:55→17:00)
[2017-03-05] MEDS: SERTRALINE HCL 25 MG TABLET GT SCH (08:55)
[2017-03-05] MEDS: HEPARIN SODIUM, PORCINE 5000 UNITS/1 ML VIAL SQ SCH ×2 (08:55→21:04)
[2017-03-05] MEDS: ZINC OXIDE 30 GM TUBE TP SCH ×2 (08:55→21:05)
[2017-03-05] MEDS: HYDROGEN PEROXIDE 480 ML BOTTLE TP SCH ×2 (08:55→21:05)
[2017-03-05 20:15] VITALS: BP 106/70
[2017-03-05] MEDS: CHOLECALCIFEROL 1,000 UNIT TABLET (VIT D3) GT SCH (21:04)
[2017-03-05] MEDS: POLYETHYLENE GLYCOL 3350 17 GM POWD.PACK GT SCH (21:05)
[2017-03-06] MEDS: POLYVINYL ALCOHOL 15 ML BOTTLE EACHEYE SCH ×4 (00:06→18:28)
[2017-03-06] MEDS: ALBUTEROL FS 2.5 MG/3 ML VIAL.NEB NEB SCH ×4 (01:30→19:19)
[2017-03-06] MEDS: CHLORHEXIDINE GLUCONATE 15 ML UDC MM SCH ×2 (05:06→18:27)
[2017-03-06 07:32] VITALS: BP 125/79
[2017-03-06] MEDS: SENNOSIDES 8.6 MG TABLET GT SCH ×2 (08:27→21:22)
[2017-03-06] MEDS: LEVETIRACETAM SOL (5 ML) 100 MG/ML UDC GT SCH ×2 (08:27→21:22)
[2017-03-06] MEDS: CARBAMAZEPINE 100 MG/5 ML GT SCH ×3 (08:27→17:00)
[2017-03-06] MEDS: BACLOFEN (10 MG) 10 MG TABLET GT SCH ×3 (08:27→17:00)
[2017-03-06] MEDS: SERTRALINE HCL 25 MG TABLET GT SCH (08:27)
[2017-03-06] MEDS: HYDROGEN PEROXIDE 480 ML BOTTLE TP SCH ×2 (08:27→21:23)
[2017-03-06] MEDS: HEPARIN SODIUM, PORCINE 5000 UNITS/1 ML VIAL SQ SCH ×2 (08:27→21:22)
[2017-03-06] MEDS: FOLIC ACID 1 MG TABLET GT SCH ×2 (08:27→17:00)
[2017-03-06] MEDS: ZINC OXIDE 30 GM TUBE TP SCH ×2 (08:28→21:23)
[2017-03-06 19:44] VITALS: BP 101/61
[2017-03-06] MEDS: CHOLECALCIFEROL 1,000 UNIT TABLET (VIT D3) GT SCH (21:22)
[2017-03-06] MEDS: POLYETHYLENE GLYCOL 3350 17 GM POWD.PACK GT SCH (21:23)
[2017-03-07] MEDS: POLYVINYL ALCOHOL 15 ML BOTTLE EACHEYE SCH ×4 (00:54→17:27)
[2017-03-07] MEDS: ALBUTEROL FS 2.5 MG/3 ML VIAL.NEB NEB SCH ×4 (01:40→20:00)
[2017-03-07] MEDS: CHLORHEXIDINE GLUCONATE 15 ML UDC MM SCH ×2 (05:51→17:27)
[2017-03-07 07:29] VITALS: BP 108/86
[2017-03-07] MEDS: CARBAMAZEPINE 100 MG/5 ML GT SCH ×3 (09:05→17:27)
[2017-03-07] MEDS: FOLIC ACID 1 MG TABLET GT SCH ×2 (09:05→17:27)
[2017-03-07] MEDS: BACLOFEN (10 MG) 10 MG TABLET GT SCH ×3 (09:05→17:27)
[2017-03-07] MEDS: SERTRALINE HCL 25 MG TABLET GT SCH (09:05)
[2017-03-07] MEDS: SENNOSIDES 8.6 MG TABLET GT SCH ×2 (09:05→20:47)
[2017-03-07] MEDS: LEVETIRACETAM SOL (5 ML) 100 MG/ML UDC GT SCH ×2 (09:05→20:47)
[2017-03-07] MEDS: HEPARIN SODIUM, PORCINE 5000 UNITS/1 ML VIAL SQ SCH ×2 (09:06→20:48)
[2017-03-07] MEDS: HYDROGEN PEROXIDE 480 ML BOTTLE TP SCH ×2 (12:00→20:47)
[2017-03-07] MEDS: ZINC OXIDE 30 GM TUBE TP SCH ×2 (12:00→20:47)
--- NOTE | 2017-03-07 15:30 | NUR ---
Seen and examined by Dr. Jeff dsouza.
[2017-03-07 20:12] VITALS: BP 100/73
[2017-03-07] MEDS: CHOLECALCIFEROL 1,000 UNIT TABLET (VIT D3) GT SCH (20:47)
[2017-03-07] MEDS: POLYETHYLENE GLYCOL 3350 17 GM POWD.PACK GT SCH (21:36)
[2017-03-08] MEDS: POLYVINYL ALCOHOL 15 ML BOTTLE EACHEYE SCH ×4 (00:55→17:12)
[2017-03-08] MEDS: ALBUTEROL FS 2.5 MG/3 ML VIAL.NEB NEB SCH ×4 (02:22→19:18)
[2017-03-08] MEDS: CHLORHEXIDINE GLUCONATE 15 ML UDC MM SCH ×2 (06:13→17:12)
[2017-03-08 07:31] VITALS: BP 117/56
[2017-03-08] MEDS: FOLIC ACID 1 MG TABLET GT SCH ×2 (09:39→17:12)
[2017-03-08] MEDS: LEVETIRACETAM SOL (5 ML) 100 MG/ML UDC GT SCH ×2 (09:39→21:21)
[2017-03-08] MEDS: BACLOFEN (10 MG) 10 MG TABLET GT SCH ×3 (09:39→17:12)
[2017-03-08] MEDS: CARBAMAZEPINE 100 MG/5 ML GT SCH ×3 (09:39→17:12)
[2017-03-08] MEDS: SERTRALINE HCL 25 MG TABLET GT SCH (09:39)
[2017-03-08] MEDS: SENNOSIDES 8.6 MG TABLET GT SCH ×2 (09:39→21:21)
[2017-03-08] MEDS: HEPARIN SODIUM, PORCINE 5000 UNITS/1 ML VIAL SQ SCH ×2 (09:40→21:21)
[2017-03-08] MEDS: HYDROGEN PEROXIDE 480 ML BOTTLE TP SCH ×2 (09:50→21:21)
[2017-03-08] MEDS: ZINC OXIDE 30 GM TUBE TP SCH ×2 (09:51→21:21)
[2017-03-08 20:10] VITALS: BP 105/58
[2017-03-08] MEDS: CHOLECALCIFEROL 1,000 UNIT TABLET (VIT D3) GT SCH (21:21)
[2017-03-08] MEDS: POLYETHYLENE GLYCOL 3350 17 GM POWD.PACK GT SCH (21:21)
[2017-03-09] MEDS: POLYVINYL ALCOHOL 15 ML BOTTLE EACHEYE SCH ×5 (00:48→23:20)
[2017-03-09] MEDS: ALBUTEROL FS 2.5 MG/3 ML VIAL.NEB NEB SCH ×4 (01:21→19:36)
[2017-03-09] MEDS: CHLORHEXIDINE GLUCONATE 15 ML UDC MM SCH ×2 (05:17→18:10)
[2017-03-09 07:32] VITALS: BP 128/79
[2017-03-09] MEDS: SERTRALINE HCL 25 MG TABLET GT SCH (08:30)
[2017-03-09] MEDS: LEVETIRACETAM SOL (5 ML) 100 MG/ML UDC GT SCH ×2 (08:30→21:18)
[2017-03-09] MEDS: SENNOSIDES 8.6 MG TABLET GT SCH ×2 (08:30→21:18)
[2017-03-09] MEDS: BACLOFEN (10 MG) 10 MG TABLET GT SCH ×3 (08:30→17:00)
[2017-03-09] MEDS: CARBAMAZEPINE 100 MG/5 ML GT SCH ×3 (08:30→17:00)
[2017-03-09] MEDS: FOLIC ACID 1 MG TABLET GT SCH ×2 (08:30→17:00)
[2017-03-09] MEDS: HYDROGEN PEROXIDE 480 ML BOTTLE TP SCH ×2 (08:31→21:20)
[2017-03-09] MEDS: HEPARIN SODIUM, PORCINE 5000 UNITS/1 ML VIAL SQ SCH ×2 (08:31→21:18)
[2017-03-09] MEDS: ZINC OXIDE 30 GM TUBE TP SCH ×2 (09:15→21:20)
[2017-03-09 20:07] VITALS: BP 100/64
[2017-03-09] MEDS: CHOLECALCIFEROL 1,000 UNIT TABLET (VIT D3) GT SCH (21:18)
[2017-03-09] MEDS: POLYETHYLENE GLYCOL 3350 17 GM POWD.PACK GT SCH (21:20)
[2017-03-10] MEDS: ALBUTEROL FS 2.5 MG/3 ML VIAL.NEB NEB SCH ×4 (02:30→20:17)
[2017-03-10] MEDS: CHLORHEXIDINE GLUCONATE 15 ML UDC MM SCH ×2 (05:48→17:11)
[2017-03-10] MEDS: POLYVINYL ALCOHOL 15 ML BOTTLE EACHEYE SCH ×3 (05:48→17:11)
[2017-03-10 07:41] VITALS: BP 130/73
[2017-03-10] MEDS: SENNOSIDES 8.6 MG TABLET GT SCH ×2 (08:26→21:58)
[2017-03-10] MEDS: FOLIC ACID 1 MG TABLET GT SCH ×2 (08:26→17:11)
[2017-03-10] MEDS: LEVETIRACETAM SOL (5 ML) 100 MG/ML UDC GT SCH ×2 (08:26→21:58)
[2017-03-10] MEDS: BACLOFEN (10 MG) 10 MG TABLET GT SCH ×3 (08:26→17:11)
[2017-03-10] MEDS: SERTRALINE HCL 25 MG TABLET GT SCH (08:26)
[2017-03-10] MEDS: CARBAMAZEPINE 100 MG/5 ML GT SCH ×3 (08:26→17:11)
[2017-03-10] MEDS: HYDROGEN PEROXIDE 480 ML BOTTLE TP SCH ×2 (08:27→21:59)
[2017-03-10] MEDS: ZINC OXIDE 30 GM TUBE TP SCH ×2 (08:27→21:59)
[2017-03-10] MEDS: HEPARIN SODIUM, PORCINE 5000 UNITS/1 ML VIAL SQ SCH ×2 (08:27→21:00)
[2017-03-10 20:04] VITALS: BP 101/59
[2017-03-10] MEDS: CHOLECALCIFEROL 1,000 UNIT TABLET (VIT D3) GT SCH (21:58)
[2017-03-10] MEDS: POLYETHYLENE GLYCOL 3350 17 GM POWD.PACK GT SCH (21:59)
[2017-03-11] MEDS: POLYVINYL ALCOHOL 15 ML BOTTLE EACHEYE SCH ×4 (00:13→17:03)
[2017-03-11] MEDS: ALBUTEROL FS 2.5 MG/3 ML VIAL.NEB NEB SCH ×4 (02:25→19:43)
[2017-03-11] MEDS: CHLORHEXIDINE GLUCONATE 15 ML UDC MM SCH ×2 (05:33→17:03)
[2017-03-11 07:46] VITALS: BP 126/72
[2017-03-11] MEDS: FOLIC ACID 1 MG TABLET GT SCH ×2 (08:41→17:03)
[2017-03-11] MEDS: SENNOSIDES 8.6 MG TABLET GT SCH ×2 (08:43→21:51)
[2017-03-11] MEDS: BACLOFEN (10 MG) 10 MG TABLET GT SCH ×3 (08:43→17:03)
[2017-03-11] MEDS: LEVETIRACETAM SOL (5 ML) 100 MG/ML UDC GT SCH ×2 (08:43→21:51)
[2017-03-11] MEDS: SERTRALINE HCL 25 MG TABLET GT SCH (08:44)
[2017-03-11] MEDS: CARBAMAZEPINE 100 MG/5 ML GT SCH ×3 (08:44→17:03)
[2017-03-11] MEDS: HEPARIN SODIUM, PORCINE 5000 UNITS/1 ML VIAL SQ SCH ×2 (08:45→21:52)
[2017-03-11] MEDS: HYDROGEN PEROXIDE 480 ML BOTTLE TP SCH ×2 (09:00→21:52)
[2017-03-11] MEDS: ZINC OXIDE 30 GM TUBE TP SCH ×2 (09:00→21:52)
--- NOTE | 2017-03-11 12:14 | NUR ---
Seen and examined by Crys Wooten NP, for Dr. Lubin no new order given at this time.
[2017-03-11 20:07] VITALS: BP 115/67
[2017-03-11] MEDS: CHOLECALCIFEROL 1,000 UNIT TABLET (VIT D3) GT SCH (21:51)
[2017-03-11] MEDS: POLYETHYLENE GLYCOL 3350 17 GM POWD.PACK GT SCH (21:52)
[2017-03-12] MEDS: POLYVINYL ALCOHOL 15 ML BOTTLE EACHEYE SCH ×4 (00:15→18:44)
[2017-03-12] MEDS: ALBUTEROL FS 2.5 MG/3 ML VIAL.NEB NEB SCH ×4 (00:46→19:17)
[2017-03-12] MEDS: CHLORHEXIDINE GLUCONATE 15 ML UDC MM SCH ×2 (05:36→18:44)
[2017-03-12 07:42] VITALS: BP 121/69
[2017-03-12] MEDS: FOLIC ACID 1 MG TABLET GT SCH ×2 (08:59→17:00)
[2017-03-12] MEDS: BACLOFEN (10 MG) 10 MG TABLET GT SCH ×3 (09:00→17:00)
[2017-03-12] MEDS: LEVETIRACETAM SOL (5 ML) 100 MG/ML UDC GT SCH ×2 (09:00→21:00)
[2017-03-12] MEDS: SENNOSIDES 8.6 MG TABLET GT SCH ×2 (09:00→21:00)
[2017-03-12] MEDS: HEPARIN SODIUM, PORCINE 5000 UNITS/1 ML VIAL SQ SCH ×2 (09:00→21:00)
[2017-03-12] MEDS: CARBAMAZEPINE 100 MG/5 ML GT SCH ×3 (09:00→17:00)
[2017-03-12] MEDS: SERTRALINE HCL 25 MG TABLET GT SCH (09:00)
[2017-03-12] MEDS: HYDROGEN PEROXIDE 480 ML BOTTLE TP SCH ×2 (09:01→21:00)
[2017-03-12] MEDS: ZINC OXIDE 30 GM TUBE TP SCH (09:01)
[2017-03-12 19:58] VITALS: BP 110/58
[2017-03-12] MEDS: CHOLECALCIFEROL 1,000 UNIT TABLET (VIT D3) GT SCH (21:00)
[2017-03-12] MEDS: POLYETHYLENE GLYCOL 3350 17 GM POWD.PACK GT SCH (22:53)
[2017-03-13] MEDS: POLYVINYL ALCOHOL 15 ML BOTTLE EACHEYE SCH ×4 (00:47→17:33)
[2017-03-13] MEDS: ALBUTEROL FS 2.5 MG/3 ML VIAL.NEB NEB SCH ×4 (02:12→19:51)
[2017-03-13] MEDS: CHLORHEXIDINE GLUCONATE 15 ML UDC MM SCH ×2 (05:42→17:34)
[2017-03-13 07:47] VITALS: BP 114/75
[2017-03-13] MEDS: BACLOFEN (10 MG) 10 MG TABLET GT SCH ×3 (08:46→17:33)
[2017-03-13] MEDS: CARBAMAZEPINE 100 MG/5 ML GT SCH ×3 (08:46→17:33)
[2017-03-13] MEDS: LEVETIRACETAM SOL (5 ML) 100 MG/ML UDC GT SCH ×2 (08:46→21:27)
[2017-03-13] MEDS: FOLIC ACID 1 MG TABLET GT SCH ×2 (08:46→17:33)
[2017-03-13] MEDS: SENNOSIDES 8.6 MG TABLET GT SCH ×2 (08:46→21:27)
[2017-03-13] MEDS: SERTRALINE HCL 25 MG TABLET GT SCH (08:47)
[2017-03-13] MEDS: HYDROGEN PEROXIDE 480 ML BOTTLE TP SCH ×2 (08:47→21:28)
[2017-03-13] MEDS: HEPARIN SODIUM, PORCINE 5000 UNITS/1 ML VIAL SQ SCH ×2 (08:48→21:27)
--- NOTE | 2017-03-13 13:20 | NUR ---
IDT meeting held, reviewed current medications, treatment and labs, NNO given. Pharmacy recommends to check BMP level, will ask Dr. Aguilar when he comes.
[2017-03-13 19:49] VITALS: BP 101/52
[2017-03-13] MEDS: CHOLECALCIFEROL 1,000 UNIT TABLET (VIT D3) GT SCH (21:27)
[2017-03-13] MEDS: POLYETHYLENE GLYCOL 3350 17 GM POWD.PACK GT SCH (21:28)
[2017-03-14] MEDS: POLYVINYL ALCOHOL 15 ML BOTTLE EACHEYE SCH ×5 (00:22→23:45)
[2017-03-14] MEDS: ALBUTEROL FS 2.5 MG/3 ML VIAL.NEB NEB SCH ×4 (01:21→19:54)
[2017-03-14] MEDS: CHLORHEXIDINE GLUCONATE 15 ML UDC MM SCH ×2 (05:21→18:28)
[2017-03-14 08:20] VITALS: BP 97/63
[2017-03-14] MEDS: HYDROGEN PEROXIDE 480 ML BOTTLE TP SCH ×2 (09:00→21:46)
[2017-03-14] MEDS: SERTRALINE HCL 25 MG TABLET GT SCH (09:45)
[2017-03-14] MEDS: BACLOFEN (10 MG) 10 MG TABLET GT SCH ×3 (09:45→17:00)
[2017-03-14] MEDS: SENNOSIDES 8.6 MG TABLET GT SCH ×2 (09:45→21:46)
[2017-03-14] MEDS: CARBAMAZEPINE 100 MG/5 ML GT SCH ×3 (09:45→17:00)
[2017-03-14] MEDS: LEVETIRACETAM SOL (5 ML) 100 MG/ML UDC GT SCH ×2 (09:45→21:46)
[2017-03-14] MEDS: FOLIC ACID 1 MG TABLET GT SCH ×2 (09:45→17:00)
[2017-03-14] MEDS: HEPARIN SODIUM, PORCINE 5000 UNITS/1 ML VIAL SQ SCH ×2 (09:46→21:46)
--- NOTE | 2017-03-14 15:00 | NUR ---
Seen and examined by Dr. Aguilar, made aware of 2 things; pharmacy recommendation to do BMP and redness in the patient's L buttocks. He ordered the BMP to be done on Thursday, local treatment and wound consult for the patient's L buttocks redness . Notified Dr. Swift of the observation including doctor's orders. Informed MD and Dr. Swift that we will keep patient in bed this weekend to prevent further damage to the skin. Dr. Swift agreed and appreciative of the call and information. Endorsed.
[2017-03-14 19:58] VITALS: BP 112/52
[2017-03-14] MEDS: CHOLECALCIFEROL 1,000 UNIT TABLET (VIT D3) GT SCH (21:46)
[2017-03-14] MEDS: POLYETHYLENE GLYCOL 3350 17 GM POWD.PACK GT SCH (21:47)
[2017-03-14] MEDS: ZINC OXIDE 30 GM TUBE TP SCH (21:47)
[2017-03-15] MEDS: ALBUTEROL FS 2.5 MG/3 ML VIAL.NEB NEB SCH ×4 (02:12→19:18)
[2017-03-15] MEDS: CHLORHEXIDINE GLUCONATE 15 ML UDC MM SCH ×2 (05:17→17:23)
[2017-03-15] MEDS: POLYVINYL ALCOHOL 15 ML BOTTLE EACHEYE SCH ×3 (05:17→17:23)
[2017-03-15 07:40] VITALS: BP 100/63
[2017-03-15] MEDS: CARBAMAZEPINE 100 MG/5 ML GT SCH ×3 (09:30→17:22)
[2017-03-15] MEDS: FOLIC ACID 1 MG TABLET GT SCH ×2 (09:30→17:22)
[2017-03-15] MEDS: SERTRALINE HCL 25 MG TABLET GT SCH (09:30)
[2017-03-15] MEDS: BACLOFEN (10 MG) 10 MG TABLET GT SCH ×3 (09:30→17:22)
[2017-03-15] MEDS: SENNOSIDES 8.6 MG TABLET GT SCH ×2 (09:30→21:33)
[2017-03-15] MEDS: LEVETIRACETAM SOL (5 ML) 100 MG/ML UDC GT SCH ×2 (09:30→21:33)
[2017-03-15] MEDS: HEPARIN SODIUM, PORCINE 5000 UNITS/1 ML VIAL SQ SCH ×2 (09:31→21:33)
[2017-03-15] MEDS: ZINC OXIDE 30 GM TUBE TP SCH ×2 (09:31→21:33)
[2017-03-15] MEDS: HYDROGEN PEROXIDE 480 ML BOTTLE TP SCH ×2 (09:31→21:33)
[2017-03-15 20:04] VITALS: BP 112/72
[2017-03-15] MEDS: POLYETHYLENE GLYCOL 3350 17 GM POWD.PACK GT SCH (21:33)
[2017-03-15] MEDS: CHOLECALCIFEROL 1,000 UNIT TABLET (VIT D3) GT SCH (21:33)
[2017-03-16] MEDS: ALBUTEROL FS 2.5 MG/3 ML VIAL.NEB NEB SCH ×4 (00:55→19:45)
[2017-03-16] MEDS: CHLORHEXIDINE GLUCONATE 15 ML UDC MM SCH ×2 (05:47→17:31)
[2017-03-16] MEDS: POLYVINYL ALCOHOL 15 ML BOTTLE EACHEYE SCH ×5 (05:47→23:36)
[2017-03-16 06:51] LABS: CALCIUM, SERUM 8.9 mg/dL (8.5-10.1); CREATININE 0.5 mg/dL (0.6-1.3)
[2017-03-16] MEDS: LEVETIRACETAM SOL (5 ML) 100 MG/ML UDC GT SCH ×2 (09:01→21:00)
[2017-03-16] MEDS: BACLOFEN (10 MG) 10 MG TABLET GT SCH ×3 (09:01→17:31)
[2017-03-16] MEDS: SERTRALINE HCL 25 MG TABLET GT SCH (09:01)
[2017-03-16] MEDS: CARBAMAZEPINE 100 MG/5 ML GT SCH ×3 (09:01→17:31)
[2017-03-16] MEDS: FOLIC ACID 1 MG TABLET GT SCH ×2 (09:01→17:31)
[2017-03-16] MEDS: SENNOSIDES 8.6 MG TABLET GT SCH ×2 (09:01→21:00)
[2017-03-16] MEDS: HYDROGEN PEROXIDE 480 ML BOTTLE TP SCH ×2 (09:03→21:00)
[2017-03-16] MEDS: ZINC OXIDE 30 GM TUBE TP SCH ×2 (09:03→21:00)
[2017-03-16] MEDS: HEPARIN SODIUM, PORCINE 5000 UNITS/1 ML VIAL SQ SCH ×2 (09:03→21:00)
[2017-03-16 12:38] VITALS: BP 104/72
[2017-03-16 20:00] VITALS: BP 108/60
[2017-03-16 20:05] VITALS: BP 108/60
[2017-03-16] MEDS: CHOLECALCIFEROL 1,000 UNIT TABLET (VIT D3) GT SCH (21:00)
[2017-03-16] MEDS: POLYETHYLENE GLYCOL 3350 17 GM POWD.PACK GT SCH (22:08)
[2017-03-17] MEDS: ALBUTEROL FS 2.5 MG/3 ML VIAL.NEB NEB SCH ×4 (01:58→19:42)
[2017-03-17] MEDS: POLYVINYL ALCOHOL 15 ML BOTTLE EACHEYE SCH ×3 (05:30→17:07)
[2017-03-17] MEDS: CHLORHEXIDINE GLUCONATE 15 ML UDC MM SCH ×2 (05:30→17:06)
[2017-03-17 07:54] VITALS: BP 117/70
[2017-03-17] MEDS: BACLOFEN (10 MG) 10 MG TABLET GT SCH ×3 (08:45→17:07)
[2017-03-17] MEDS: FOLIC ACID 1 MG TABLET GT SCH ×2 (08:45→17:06)
[2017-03-17] MEDS: SENNOSIDES 8.6 MG TABLET GT SCH ×2 (08:45→20:20)
[2017-03-17] MEDS: CARBAMAZEPINE 100 MG/5 ML GT SCH ×3 (08:45→17:06)
[2017-03-17] MEDS: SERTRALINE HCL 25 MG TABLET GT SCH (08:45)
[2017-03-17] MEDS: LEVETIRACETAM SOL (5 ML) 100 MG/ML UDC GT SCH ×2 (08:45→20:17)
[2017-03-17] MEDS: HYDROGEN PEROXIDE 480 ML BOTTLE TP SCH ×2 (08:46→20:20)
[2017-03-17] MEDS: HEPARIN SODIUM, PORCINE 5000 UNITS/1 ML VIAL SQ SCH ×2 (08:46→20:19)
[2017-03-17] MEDS: ZINC OXIDE 30 GM TUBE TP SCH ×2 (08:46→20:20)
--- NOTE | 2017-03-17 12:49 | NUR ---
PT NOT IN ROOM FOR RESPIRATORY TREATMENT
[2017-03-17 19:55] VITALS: BP 105/63
[2017-03-17] MEDS: CHOLECALCIFEROL 1,000 UNIT TABLET (VIT D3) GT SCH (20:20)
[2017-03-17] MEDS: POLYETHYLENE GLYCOL 3350 17 GM POWD.PACK GT SCH (22:00)
[2017-03-18] MEDS: ALBUTEROL FS 2.5 MG/3 ML VIAL.NEB NEB SCH ×4 (01:49→19:41)
[2017-03-18] MEDS: POLYVINYL ALCOHOL 15 ML BOTTLE EACHEYE SCH ×4 (06:14→17:53)
[2017-03-18] MEDS: CHLORHEXIDINE GLUCONATE 15 ML UDC MM SCH ×2 (06:14→17:53)
[2017-03-18] MEDS: BACLOFEN (10 MG) 10 MG TABLET GT SCH ×3 (09:24→16:51)
[2017-03-18] MEDS: SENNOSIDES 8.6 MG TABLET GT SCH ×2 (09:24→21:08)
[2017-03-18] MEDS: LEVETIRACETAM SOL (5 ML) 100 MG/ML UDC GT SCH ×2 (09:24→21:08)
[2017-03-18] MEDS: CARBAMAZEPINE 100 MG/5 ML GT SCH ×3 (09:24→16:51)
[2017-03-18] MEDS: SERTRALINE HCL 25 MG TABLET GT SCH (09:24)
[2017-03-18] MEDS: FOLIC ACID 1 MG TABLET GT SCH ×2 (09:24→16:51)
[2017-03-18] MEDS: ZINC OXIDE 30 GM TUBE TP SCH ×2 (09:25→21:09)
[2017-03-18] MEDS: HYDROGEN PEROXIDE 480 ML BOTTLE TP SCH ×2 (09:25→21:09)
[2017-03-18] MEDS: HEPARIN SODIUM, PORCINE 5000 UNITS/1 ML VIAL SQ SCH ×2 (09:25→21:09)
--- NOTE | 2017-03-18 09:48 | NUR ---
WOUND CARE CONSULT PATIENT SEEN AND SKIN INTEGRITY EVALUATED. PATIENT PRESENTS WITH REDNESS AND MILD EXCORIATIONS TO THE LEFT BUTTOCK, THE REDNESS IS BLANCHABLE AND THE EXCORIATIONS ARE PINK/RED, SKIN IS INTACT AT THIS TIME AND PER NURSING STAFF THE AREA LOOKS BETTER THAT 2-3 DAYS AGO. RECOMMEND CONTINUE TO KEEP THE AREA CLEAN AND DRY, CONTINUE USE OF Z GUARD WITH MEPILEX FOAM DRESSING TO PROTECT CURRENTLY ORDERED. CONTINUE ALL SKIN MANAGMENT AND PREVENTION MEASURES PER CURRENT PLAN OF CARE. ALL DISCUSSED WITH NURSING AND OFFSET PRESS OPERATOR HELPER AT THE BEDSIDE. SOLE TACKER ALSO AWARE OF PLAN OF CARE AND ASSESSMENT.
[2017-03-18 12:22] VITALS: BP 107/67
[2017-03-18 19:39] VITALS: BP 106/68
[2017-03-18] MEDS: CHOLECALCIFEROL 1,000 UNIT TABLET (VIT D3) GT SCH (21:08)
[2017-03-18] MEDS: POLYETHYLENE GLYCOL 3350 17 GM POWD.PACK GT SCH (21:09)
[2017-03-19] MEDS: POLYVINYL ALCOHOL 15 ML BOTTLE EACHEYE SCH ×4 (00:34→17:41)
[2017-03-19] MEDS: ALBUTEROL FS 2.5 MG/3 ML VIAL.NEB NEB SCH ×4 (01:32→20:04)
[2017-03-19] MEDS: CHLORHEXIDINE GLUCONATE 15 ML UDC MM SCH ×2 (05:40→17:41)
[2017-03-19 07:56] VITALS: BP 118/78
[2017-03-19] MEDS: SENNOSIDES 8.6 MG TABLET GT SCH ×2 (09:00→21:54)
[2017-03-19] MEDS: CARBAMAZEPINE 100 MG/5 ML GT SCH ×3 (09:00→16:54)
[2017-03-19] MEDS: BACLOFEN (10 MG) 10 MG TABLET GT SCH ×3 (09:00→16:53)
[2017-03-19] MEDS: HYDROGEN PEROXIDE 480 ML BOTTLE TP SCH ×2 (09:00→21:55)
[2017-03-19] MEDS: LEVETIRACETAM SOL (5 ML) 100 MG/ML UDC GT SCH ×2 (09:00→21:54)
[2017-03-19] MEDS: SERTRALINE HCL 25 MG TABLET GT SCH (09:00)
[2017-03-19] MEDS: FOLIC ACID 1 MG TABLET GT SCH ×2 (09:00→16:53)
[2017-03-19] MEDS: HEPARIN SODIUM, PORCINE 5000 UNITS/1 ML VIAL SQ SCH ×2 (09:00→21:55)
[2017-03-19] MEDS: ZINC OXIDE 30 GM TUBE TP SCH ×2 (09:00→21:55)
--- NOTE | 2017-03-19 16:05 | NUR ---
RT MONTHLY TRACH CHANGE DONE WITH NO PORTEX 9 UNCUFFED. PT IS AWAKE AND RESPONDS TO STIMULI. TRACH CHANGE DONE WITH NO COMPLICATIONS. EQUAL BILATERAL BREATHE SOUNDS AND CHEST RISE. PT PLACED BACK ON COOL AEROSOL. NO RESPIRATORY DIS TRESS NOTED AT THIS TIME, WILL CONTINUE TO MONITOR. Addendum: 03/19/17 at 1734 by RENATO OSORIO RT Amended: Links added.
[2017-03-19 19:33] VITALS: BP 102/58
[2017-03-19] MEDS: CHOLECALCIFEROL 1,000 UNIT TABLET (VIT D3) GT SCH (21:54)
[2017-03-19] MEDS: POLYETHYLENE GLYCOL 3350 17 GM POWD.PACK GT SCH (21:55)
[2017-03-20] MEDS: POLYVINYL ALCOHOL 15 ML BOTTLE EACHEYE SCH ×5 (00:43→23:31)
[2017-03-20] MEDS: ALBUTEROL FS 2.5 MG/3 ML VIAL.NEB NEB SCH ×4 (01:11→19:08)
[2017-03-20] MEDS: CHLORHEXIDINE GLUCONATE 15 ML UDC MM SCH ×2 (06:03→17:58)
[2017-03-20 07:25] VITALS: BP 105/62
[2017-03-20] MEDS: SERTRALINE HCL 25 MG TABLET GT SCH (09:00)
[2017-03-20] MEDS: HYDROGEN PEROXIDE 480 ML BOTTLE TP SCH ×2 (09:00→21:54)
[2017-03-20] MEDS: HEPARIN SODIUM, PORCINE 5000 UNITS/1 ML VIAL SQ SCH ×2 (09:00→21:54)
[2017-03-20] MEDS: FOLIC ACID 1 MG TABLET GT SCH ×2 (09:00→17:57)
[2017-03-20] MEDS: SENNOSIDES 8.6 MG TABLET GT SCH ×2 (09:00→21:54)
[2017-03-20] MEDS: LEVETIRACETAM SOL (5 ML) 100 MG/ML UDC GT SCH ×2 (09:00→21:54)
[2017-03-20] MEDS: ZINC OXIDE 30 GM TUBE TP SCH ×2 (09:00→21:54)
[2017-03-20] MEDS: CARBAMAZEPINE 100 MG/5 ML GT SCH ×3 (09:00→17:58)
[2017-03-20] MEDS: BACLOFEN (10 MG) 10 MG TABLET GT SCH ×3 (09:00→17:57)
[2017-03-20 19:32] VITALS: BP 103/56
[2017-03-20] MEDS: CHOLECALCIFEROL 1,000 UNIT TABLET (VIT D3) GT SCH (21:54)
[2017-03-20] MEDS: POLYETHYLENE GLYCOL 3350 17 GM POWD.PACK GT SCH (21:54)
[2017-03-21] MEDS: ALBUTEROL FS 2.5 MG/3 ML VIAL.NEB NEB SCH ×4 (01:20→20:24)
[2017-03-21] MEDS: CHLORHEXIDINE GLUCONATE 15 ML UDC MM SCH ×2 (05:54→17:34)
[2017-03-21] MEDS: POLYVINYL ALCOHOL 15 ML BOTTLE EACHEYE SCH ×3 (05:54→17:34)
[2017-03-21 07:31] VITALS: BP 128/70
[2017-03-21] MEDS: SENNOSIDES 8.6 MG TABLET GT SCH ×2 (09:10→21:32)
[2017-03-21] MEDS: FOLIC ACID 1 MG TABLET GT SCH ×2 (09:10→17:34)
[2017-03-21] MEDS: LEVETIRACETAM SOL (5 ML) 100 MG/ML UDC GT SCH ×2 (09:10→21:32)
[2017-03-21] MEDS: CARBAMAZEPINE 100 MG/5 ML GT SCH ×3 (09:10→17:34)
[2017-03-21] MEDS: BACLOFEN (10 MG) 10 MG TABLET GT SCH ×3 (09:10→17:34)
[2017-03-21] MEDS: SERTRALINE HCL 25 MG TABLET GT SCH (09:10)
[2017-03-21] MEDS: HYDROGEN PEROXIDE 480 ML BOTTLE TP SCH ×2 (09:10→21:34)
[2017-03-21] MEDS: ZINC OXIDE 30 GM TUBE TP SCH ×2 (09:11→21:34)
[2017-03-21] MEDS: HEPARIN SODIUM, PORCINE 5000 UNITS/1 ML VIAL SQ SCH ×2 (09:55→21:33)
[2017-03-21 19:37] VITALS: BP 104/59
[2017-03-21] MEDS: POLYETHYLENE GLYCOL 3350 17 GM POWD.PACK GT SCH (21:34)
[2017-03-21] MEDS: CHOLECALCIFEROL 1,000 UNIT TABLET (VIT D3) GT SCH (21:35)
[2017-03-22] MEDS: ALBUTEROL FS 2.5 MG/3 ML VIAL.NEB NEB SCH ×4 (02:20→19:23)
[2017-03-22] MEDS: CHLORHEXIDINE GLUCONATE 15 ML UDC MM SCH ×2 (06:02→17:58)
[2017-03-22] MEDS: POLYVINYL ALCOHOL 15 ML BOTTLE EACHEYE SCH ×4 (06:02→17:58)
[2017-03-22 07:37] VITALS: BP 102/53
--- NOTE | 2017-03-22 09:00 | NUR ---
Seen and examined by Dr. Lubin, NNO given.
[2017-03-22] MEDS: FOLIC ACID 1 MG TABLET GT SCH ×2 (09:48→17:58)
[2017-03-22] MEDS: SERTRALINE HCL 25 MG TABLET GT SCH (09:48)
[2017-03-22] MEDS: CARBAMAZEPINE 100 MG/5 ML GT SCH ×3 (09:48→17:58)
[2017-03-22] MEDS: LEVETIRACETAM SOL (5 ML) 100 MG/ML UDC GT SCH ×2 (09:48→21:37)
[2017-03-22] MEDS: HYDROGEN PEROXIDE 480 ML BOTTLE TP SCH ×2 (09:48→21:37)
[2017-03-22] MEDS: SENNOSIDES 8.6 MG TABLET GT SCH ×2 (09:48→21:37)
[2017-03-22] MEDS: BACLOFEN (10 MG) 10 MG TABLET GT SCH ×3 (09:48→17:58)
[2017-03-22] MEDS: ZINC OXIDE 30 GM TUBE TP SCH ×2 (09:49→21:37)
[2017-03-22] MEDS: HEPARIN SODIUM, PORCINE 5000 UNITS/1 ML VIAL SQ SCH ×2 (09:49→21:37)
[2017-03-22] MEDS: CHOLECALCIFEROL 1,000 UNIT TABLET (VIT D3) GT SCH (21:37)
[2017-03-22] MEDS: POLYETHYLENE GLYCOL 3350 17 GM POWD.PACK GT SCH (22:08)
[2017-03-22 22:15] VITALS: BP 107/65
[2017-03-23] MEDS: ALBUTEROL FS 2.5 MG/3 ML VIAL.NEB NEB SCH ×4 (01:18→19:41)
[2017-03-23] MEDS: POLYVINYL ALCOHOL 15 ML BOTTLE EACHEYE SCH ×4 (06:02→18:56)
[2017-03-23] MEDS: CHLORHEXIDINE GLUCONATE 15 ML UDC MM SCH ×2 (06:02→18:56)
[2017-03-23 08:05] VITALS: BP 130/76
[2017-03-23] MEDS: HYDROGEN PEROXIDE 480 ML BOTTLE TP SCH ×2 (09:26→20:30)
[2017-03-23] MEDS: SENNOSIDES 8.6 MG TABLET GT SCH ×2 (09:26→20:27)
[2017-03-23] MEDS: BACLOFEN (10 MG) 10 MG TABLET GT SCH ×3 (09:26→17:00)
[2017-03-23] MEDS: FOLIC ACID 1 MG TABLET GT SCH ×2 (09:26→17:00)
[2017-03-23] MEDS: LEVETIRACETAM SOL (5 ML) 100 MG/ML UDC GT SCH ×2 (09:26→20:27)
[2017-03-23] MEDS: CARBAMAZEPINE 100 MG/5 ML GT SCH ×3 (09:26→17:00)
[2017-03-23] MEDS: HEPARIN SODIUM, PORCINE 5000 UNITS/1 ML VIAL SQ SCH ×2 (09:26→20:28)
[2017-03-23] MEDS: SERTRALINE HCL 25 MG TABLET GT SCH (09:26)
[2017-03-23] MEDS: ZINC OXIDE 30 GM TUBE TP SCH ×2 (09:27→20:30)
[2017-03-23 19:57] VITALS: BP 99/61
[2017-03-23] MEDS: CHOLECALCIFEROL 1,000 UNIT TABLET (VIT D3) GT SCH (20:27)
[2017-03-23] MEDS: POLYETHYLENE GLYCOL 3350 17 GM POWD.PACK GT SCH (21:24)
[2017-03-24] MEDS: POLYVINYL ALCOHOL 15 ML BOTTLE EACHEYE SCH ×4 (00:42→17:37)
[2017-03-24] MEDS: ALBUTEROL FS 2.5 MG/3 ML VIAL.NEB NEB SCH ×4 (01:55→19:35)
[2017-03-24] MEDS: CHLORHEXIDINE GLUCONATE 15 ML UDC MM SCH ×2 (05:20→17:38)
[2017-03-24 08:00] VITALS: BP 122/70
[2017-03-24] MEDS: HEPARIN SODIUM, PORCINE 5000 UNITS/1 ML VIAL SQ SCH ×2 (08:32→20:21)
[2017-03-24] MEDS: ZINC OXIDE 30 GM TUBE TP SCH ×2 (08:32→20:22)
[2017-03-24] MEDS: FOLIC ACID 1 MG TABLET GT SCH ×2 (08:32→17:37)
[2017-03-24] MEDS: SERTRALINE HCL 25 MG TABLET GT SCH (08:32)
[2017-03-24] MEDS: LEVETIRACETAM SOL (5 ML) 100 MG/ML UDC GT SCH ×2 (08:32→20:21)
[2017-03-24] MEDS: BACLOFEN (10 MG) 10 MG TABLET GT SCH ×3 (08:32→17:37)
[2017-03-24] MEDS: SENNOSIDES 8.6 MG TABLET GT SCH ×2 (08:32→20:21)
[2017-03-24] MEDS: CARBAMAZEPINE 100 MG/5 ML GT SCH ×3 (08:32→17:37)
[2017-03-24] MEDS: HYDROGEN PEROXIDE 480 ML BOTTLE TP SCH ×2 (08:32→20:22)
--- NOTE | 2017-03-24 11:42 | NUR ---
SW reminded resident's mother that subacute director and nursing services manager want to meet with her and her to address concerns that she identifies in family support group meetings. She stated that her is sick but will ask him about when he can come in. HILTON asked resident's mother if it was okay to meet with subacute director and business strategy manager rather than at the family support group meeting and she stated that it is okay and will update the family welfare social work professor as to when her can come in. Subacute business strategy manager informed.
[2017-03-24 19:57] VITALS: BP 139/64
[2017-03-24] MEDS: CHOLECALCIFEROL 1,000 UNIT TABLET (VIT D3) GT SCH (20:20)
[2017-03-24] MEDS: POLYETHYLENE GLYCOL 3350 17 GM POWD.PACK GT SCH (21:34)
[2017-03-25] MEDS: POLYVINYL ALCOHOL 15 ML BOTTLE EACHEYE SCH ×5 (00:17→23:51)
[2017-03-25] MEDS: ALBUTEROL FS 2.5 MG/3 ML VIAL.NEB NEB SCH ×4 (01:53→20:12)
[2017-03-25] MEDS: CHLORHEXIDINE GLUCONATE 15 ML UDC MM SCH ×2 (05:50→17:05)
[2017-03-25 07:52] VITALS: BP 125/72
[2017-03-25] MEDS: LEVETIRACETAM SOL (5 ML) 100 MG/ML UDC GT SCH ×2 (08:41→20:37)
[2017-03-25] MEDS: BACLOFEN (10 MG) 10 MG TABLET GT SCH ×3 (08:41→17:05)
[2017-03-25] MEDS: FOLIC ACID 1 MG TABLET GT SCH ×2 (08:41→17:05)
[2017-03-25] MEDS: SENNOSIDES 8.6 MG TABLET GT SCH ×2 (08:41→20:37)
[2017-03-25] MEDS: CARBAMAZEPINE 100 MG/5 ML GT SCH ×3 (08:41→17:05)
[2017-03-25] MEDS: SERTRALINE HCL 25 MG TABLET GT SCH (08:41)
[2017-03-25] MEDS: HYDROGEN PEROXIDE 480 ML BOTTLE TP SCH ×2 (08:42→20:38)
[2017-03-25] MEDS: ZINC OXIDE 30 GM TUBE TP SCH ×2 (08:42→20:38)
[2017-03-25] MEDS: HEPARIN SODIUM, PORCINE 5000 UNITS/1 ML VIAL SQ SCH ×2 (08:42→20:38)
--- NOTE | 2017-03-25 11:01 | NUR ---
Mother asked if resident's wheelchair can be reinforced, as it is leaning to one side and breaks need to be reinforced. SW submitted request for engineering to come and see the wheelchair after 2pm, which is when mother indicated that resident will be off of the wheelchair. Informed mother.
[2017-03-25 19:52] VITALS: BP 98/56
[2017-03-25] MEDS: CHOLECALCIFEROL 1,000 UNIT TABLET (VIT D3) GT SCH (20:37)
[2017-03-25] MEDS: POLYETHYLENE GLYCOL 3350 17 GM POWD.PACK GT SCH (22:02)
[2017-03-26] MEDS: ALBUTEROL FS 2.5 MG/3 ML VIAL.NEB NEB SCH ×4 (00:55→19:43)
[2017-03-26] MEDS: POLYVINYL ALCOHOL 15 ML BOTTLE EACHEYE SCH ×3 (05:20→18:32)
[2017-03-26] MEDS: CHLORHEXIDINE GLUCONATE 15 ML UDC MM SCH ×2 (05:20→18:32)
[2017-03-26 07:37] VITALS: BP 121/61
[2017-03-26] MEDS: SERTRALINE HCL 25 MG TABLET GT SCH (09:44)
[2017-03-26] MEDS: HEPARIN SODIUM, PORCINE 5000 UNITS/1 ML VIAL SQ SCH ×2 (09:44→20:38)
[2017-03-26] MEDS: SENNOSIDES 8.6 MG TABLET GT SCH ×2 (09:44→20:38)
[2017-03-26] MEDS: CARBAMAZEPINE 100 MG/5 ML GT SCH ×3 (09:44→17:00)
[2017-03-26] MEDS: BACLOFEN (10 MG) 10 MG TABLET GT SCH ×3 (09:44→17:00)
[2017-03-26] MEDS: LEVETIRACETAM SOL (5 ML) 100 MG/ML UDC GT SCH ×2 (09:44→20:38)
[2017-03-26] MEDS: FOLIC ACID 1 MG TABLET GT SCH ×2 (09:44→17:00)
[2017-03-26] MEDS: ZINC OXIDE 30 GM TUBE TP SCH ×2 (09:45→20:38)
[2017-03-26] MEDS: HYDROGEN PEROXIDE 480 ML BOTTLE TP SCH ×2 (09:45→20:38)
[2017-03-26 19:52] VITALS: BP 105/55
[2017-03-26] MEDS: CHOLECALCIFEROL 1,000 UNIT TABLET (VIT D3) GT SCH (20:38)
[2017-03-26] MEDS: POLYETHYLENE GLYCOL 3350 17 GM POWD.PACK GT SCH (22:10)
[2017-03-27] MEDS: POLYVINYL ALCOHOL 15 ML BOTTLE EACHEYE SCH ×4 (00:34→18:45)
[2017-03-27] MEDS: ALBUTEROL FS 2.5 MG/3 ML VIAL.NEB NEB SCH ×4 (00:47→19:17)
[2017-03-27] MEDS: CHLORHEXIDINE GLUCONATE 15 ML UDC MM SCH ×2 (05:34→18:45)
[2017-03-27 07:44] VITALS: BP 140/82
[2017-03-27] MEDS: FOLIC ACID 1 MG TABLET GT SCH ×2 (08:52→17:00)
[2017-03-27] MEDS: HEPARIN SODIUM, PORCINE 5000 UNITS/1 ML VIAL SQ SCH ×2 (08:52→21:24)
[2017-03-27] MEDS: CARBAMAZEPINE 100 MG/5 ML GT SCH ×3 (08:52→17:00)
[2017-03-27] MEDS: SERTRALINE HCL 25 MG TABLET GT SCH (08:52)
[2017-03-27] MEDS: LEVETIRACETAM SOL (5 ML) 100 MG/ML UDC GT SCH ×2 (08:52→21:22)
[2017-03-27] MEDS: BACLOFEN (10 MG) 10 MG TABLET GT SCH ×3 (08:52→17:00)
[2017-03-27] MEDS: SENNOSIDES 8.6 MG TABLET GT SCH ×2 (08:52→21:22)
[2017-03-27] MEDS: HYDROGEN PEROXIDE 480 ML BOTTLE TP SCH ×2 (08:53→21:23)
[2017-03-27] MEDS: ZINC OXIDE 30 GM TUBE TP SCH ×2 (08:53→21:23)
--- NOTE | 2017-03-27 11:05 | NUR ---
Seen and examined by Dr. Jeff dsouza.
[2017-03-27 19:39] VITALS: BP 105/57
[2017-03-27] MEDS: CHOLECALCIFEROL 1,000 UNIT TABLET (VIT D3) GT SCH (21:22)
[2017-03-27] MEDS: POLYETHYLENE GLYCOL 3350 17 GM POWD.PACK GT SCH (21:23)
[2017-03-28] MEDS: ALBUTEROL FS 2.5 MG/3 ML VIAL.NEB NEB SCH ×4 (01:42→19:13)
[2017-03-28] MEDS: POLYVINYL ALCOHOL 15 ML BOTTLE EACHEYE SCH ×5 (05:15→23:17)
[2017-03-28] MEDS: CHLORHEXIDINE GLUCONATE 15 ML UDC MM SCH ×2 (05:15→17:03)
[2017-03-28 08:05] VITALS: BP 112/68
[2017-03-28] MEDS: SENNOSIDES 8.6 MG TABLET GT SCH ×2 (09:43→21:26)
[2017-03-28] MEDS: SERTRALINE HCL 25 MG TABLET GT SCH (09:43)
[2017-03-28] MEDS: BACLOFEN (10 MG) 10 MG TABLET GT SCH ×3 (09:43→17:03)
[2017-03-28] MEDS: ZINC OXIDE 30 GM TUBE TP SCH ×2 (09:43→21:27)
[2017-03-28] MEDS: LEVETIRACETAM SOL (5 ML) 100 MG/ML UDC GT SCH ×2 (09:43→21:26)
[2017-03-28] MEDS: FOLIC ACID 1 MG TABLET GT SCH ×2 (09:43→17:03)
[2017-03-28] MEDS: CARBAMAZEPINE 100 MG/5 ML GT SCH ×3 (09:43→17:03)
[2017-03-28] MEDS: HEPARIN SODIUM, PORCINE 5000 UNITS/1 ML VIAL SQ SCH ×2 (09:43→21:27)
[2017-03-28] MEDS: HYDROGEN PEROXIDE 480 ML BOTTLE TP SCH ×2 (09:43→21:27)
[2017-03-28 19:48] VITALS: BP 103/48
[2017-03-28] MEDS: CHOLECALCIFEROL 1,000 UNIT TABLET (VIT D3) GT SCH (21:26)
[2017-03-28] MEDS: POLYETHYLENE GLYCOL 3350 17 GM POWD.PACK GT SCH (21:27)
[2017-03-29] MEDS: ALBUTEROL FS 2.5 MG/3 ML VIAL.NEB NEB SCH ×4 (00:38→18:53)
[2017-03-29] MEDS: CHLORHEXIDINE GLUCONATE 15 ML UDC MM SCH ×2 (05:16→17:30)
[2017-03-29] MEDS: POLYVINYL ALCOHOL 15 ML BOTTLE EACHEYE SCH ×3 (05:16→17:30)
[2017-03-29 07:35] VITALS: BP 116/64
[2017-03-29] MEDS: CARBAMAZEPINE 100 MG/5 ML GT SCH ×3 (08:15→17:30)
[2017-03-29] MEDS: BACLOFEN (10 MG) 10 MG TABLET GT SCH ×3 (08:15→17:30)
[2017-03-29] MEDS: HYDROGEN PEROXIDE 480 ML BOTTLE TP SCH ×2 (08:15→20:51)
[2017-03-29] MEDS: SENNOSIDES 8.6 MG TABLET GT SCH ×2 (08:15→20:48)
[2017-03-29] MEDS: FOLIC ACID 1 MG TABLET GT SCH ×2 (08:15→17:30)
[2017-03-29] MEDS: HEPARIN SODIUM, PORCINE 5000 UNITS/1 ML VIAL SQ SCH ×2 (08:15→20:51)
[2017-03-29] MEDS: ZINC OXIDE 30 GM TUBE TP SCH ×2 (08:15→20:51)
[2017-03-29] MEDS: LEVETIRACETAM SOL (5 ML) 100 MG/ML UDC GT SCH ×2 (08:15→20:48)
[2017-03-29] MEDS: SERTRALINE HCL 25 MG TABLET GT SCH (08:15)
[2017-03-29 19:23] VITALS: BP 123/69
[2017-03-29] MEDS: CHOLECALCIFEROL 1,000 UNIT TABLET (VIT D3) GT SCH (20:50)
[2017-03-29] MEDS: POLYETHYLENE GLYCOL 3350 17 GM POWD.PACK GT SCH (22:00)
[2017-03-30] MEDS: POLYVINYL ALCOHOL 15 ML BOTTLE EACHEYE SCH ×5 (00:29→23:37)
[2017-03-30] MEDS: ALBUTEROL FS 2.5 MG/3 ML VIAL.NEB NEB SCH ×4 (01:55→19:01)
[2017-03-30] MEDS: CHLORHEXIDINE GLUCONATE 15 ML UDC MM SCH ×2 (06:20→17:40)
[2017-03-30 08:13] VITALS: BP 112/65
[2017-03-30] MEDS: FOLIC ACID 1 MG TABLET GT SCH ×2 (08:39→17:40)
[2017-03-30] MEDS: SERTRALINE HCL 25 MG TABLET GT SCH (08:39)
[2017-03-30] MEDS: LEVETIRACETAM SOL (5 ML) 100 MG/ML UDC GT SCH ×2 (08:41→21:29)
[2017-03-30] MEDS: BACLOFEN (10 MG) 10 MG TABLET GT SCH ×3 (08:41→17:40)
[2017-03-30] MEDS: HYDROGEN PEROXIDE 480 ML BOTTLE TP SCH ×2 (08:42→21:29)
[2017-03-30] MEDS: SENNOSIDES 8.6 MG TABLET GT SCH ×2 (08:42→21:29)
[2017-03-30] MEDS: CARBAMAZEPINE 100 MG/5 ML GT SCH ×3 (08:42→17:40)
[2017-03-30] MEDS: ZINC OXIDE 30 GM TUBE TP SCH ×2 (08:43→21:29)
[2017-03-30] MEDS: HEPARIN SODIUM, PORCINE 5000 UNITS/1 ML VIAL SQ SCH ×2 (08:54→21:43)
--- NOTE | 2017-03-30 10:00 | NUR ---
Mother indicated that engineering has not come to fix the resident's wheelchair. Called Cinda, industrial engineering, to remind her and indicated resident will not be placed in her wheelchair today per mother. Will try calling again. Informed charge nurse and she stated she will remind engineering when she see's them. Mother also shared COTTON WASHER concerns and these were addressed with nursing admin. Reminded mother that subacute director and practice managers want to meet with her and her together and she stated that her has been sick and he is also working today. Informed her to give advanced notice of when her can come so SW can arrange meeting.
--- NOTE | 2017-03-30 10:59 | NUR ---
HILTON ran into engineering in the unit ([employer]). Reminded them that the resident's wheelchair needs to be maintained. They stated that they have not forgotten and will address the issue. Informed mother who stated that this was okay and SW stated she will keep her posted as to what day then can come for the wheelchair.
[2017-03-30 19:56] VITALS: BP 102/72
[2017-03-30] MEDS: POLYETHYLENE GLYCOL 3350 17 GM POWD.PACK GT SCH (21:29)
[2017-03-30] MEDS: CHOLECALCIFEROL 1,000 UNIT TABLET (VIT D3) GT SCH (21:29)
[2017-03-31] MEDS: ALBUTEROL FS 2.5 MG/3 ML VIAL.NEB NEB SCH ×4 (00:42→19:30)
[2017-03-31] MEDS: CHLORHEXIDINE GLUCONATE 15 ML UDC MM SCH ×2 (05:43→17:28)
[2017-03-31] MEDS: POLYVINYL ALCOHOL 15 ML BOTTLE EACHEYE SCH ×3 (05:43→17:28)
[2017-03-31 07:56] VITALS: BP 115/59
[2017-03-31] MEDS: SENNOSIDES 8.6 MG TABLET GT SCH ×2 (08:22→21:58)
[2017-03-31] MEDS: FOLIC ACID 1 MG TABLET GT SCH ×2 (08:22→17:28)
[2017-03-31] MEDS: SERTRALINE HCL 25 MG TABLET GT SCH (08:22)
[2017-03-31] MEDS: BACLOFEN (10 MG) 10 MG TABLET GT SCH ×3 (08:22→17:28)
[2017-03-31] MEDS: LEVETIRACETAM SOL (5 ML) 100 MG/ML UDC GT SCH ×2 (08:22→21:58)
[2017-03-31] MEDS: HEPARIN SODIUM, PORCINE 5000 UNITS/1 ML VIAL SQ SCH ×2 (08:22→22:05)
[2017-03-31] MEDS: CARBAMAZEPINE 100 MG/5 ML GT SCH ×3 (08:22→17:28)
[2017-03-31] MEDS: ZINC OXIDE 30 GM TUBE TP SCH ×2 (09:52→21:58)
[2017-03-31] MEDS: HYDROGEN PEROXIDE 480 ML BOTTLE TP SCH ×2 (09:52→21:58)
--- NOTE | 2017-03-31 11:23 | NUR ---
Art from engineering took the resident's wheelchair for maintenance. Mother previously stated it was okay to take the wheelchair if she is not present. Called mother Anaya Swift ([phone]) and left a voice message for her indicating engineering took wheelchair for maintenance.
--- NOTE | 2017-03-31 12:19 | NUR ---
Art from Engineering returned the wheelchair earlier. He stated he tightened the screws so that the wheelchair is now straight instead of tilting to the side. Called mother and left her a voice message with the above information since she did not answer.
[2017-03-31 20:06] VITALS: BP 106/70
[2017-03-31] MEDS: POLYETHYLENE GLYCOL 3350 17 GM POWD.PACK GT SCH (21:58)
[2017-03-31] MEDS: CHOLECALCIFEROL 1,000 UNIT TABLET (VIT D3) GT SCH (21:58)
[2017-04-01] MEDS: ALBUTEROL FS 2.5 MG/3 ML VIAL.NEB NEB SCH ×4 (02:10→19:10)
[2017-04-01] MEDS: POLYVINYL ALCOHOL 15 ML BOTTLE EACHEYE SCH ×4 (06:12→17:25)
[2017-04-01] MEDS: CHLORHEXIDINE GLUCONATE 15 ML UDC MM SCH ×2 (06:12→17:25)
[2017-04-01 08:03] VITALS: BP 116/70
[2017-04-01] MEDS: ZINC OXIDE 30 GM TUBE TP SCH ×2 (09:00→21:22)
[2017-04-01] MEDS: HYDROGEN PEROXIDE 480 ML BOTTLE TP SCH ×2 (09:00→21:22)
[2017-04-01] MEDS: LEVETIRACETAM SOL (5 ML) 100 MG/ML UDC GT SCH ×2 (09:40→21:21)
[2017-04-01] MEDS: BACLOFEN (10 MG) 10 MG TABLET GT SCH ×3 (09:40→17:25)
[2017-04-01] MEDS: SERTRALINE HCL 25 MG TABLET GT SCH (09:40)
[2017-04-01] MEDS: CARBAMAZEPINE 100 MG/5 ML GT SCH ×3 (09:40→17:25)
[2017-04-01] MEDS: SENNOSIDES 8.6 MG TABLET GT SCH ×2 (09:40→21:21)
[2017-04-01] MEDS: FOLIC ACID 1 MG TABLET GT SCH ×2 (09:40→17:25)
[2017-04-01] MEDS: HEPARIN SODIUM, PORCINE 5000 UNITS/1 ML VIAL SQ SCH ×2 (09:41→21:21)
[2017-04-01 20:09] VITALS: BP 103/60
[2017-04-01] MEDS: CHOLECALCIFEROL 1,000 UNIT TABLET (VIT D3) GT SCH (21:21)
[2017-04-01] MEDS: POLYETHYLENE GLYCOL 3350 17 GM POWD.PACK GT SCH (21:22)
[2017-04-02] MEDS: POLYVINYL ALCOHOL 15 ML BOTTLE EACHEYE SCH ×5 (00:16→23:20)
[2017-04-02] MEDS: ALBUTEROL FS 2.5 MG/3 ML VIAL.NEB NEB SCH ×4 (01:26→20:05)
[2017-04-02] MEDS: CHLORHEXIDINE GLUCONATE 15 ML UDC MM SCH ×2 (05:29→18:30)
[2017-04-02 07:29] VITALS: BP 139/89
[2017-04-02] MEDS: LEVETIRACETAM SOL (5 ML) 100 MG/ML UDC GT SCH ×2 (09:00→21:17)
[2017-04-02] MEDS: SENNOSIDES 8.6 MG TABLET GT SCH ×2 (09:00→21:17)
[2017-04-02] MEDS: FOLIC ACID 1 MG TABLET GT SCH ×2 (09:00→17:00)
[2017-04-02] MEDS: BACLOFEN (10 MG) 10 MG TABLET GT SCH ×3 (09:00→17:00)
[2017-04-02] MEDS: CARBAMAZEPINE 100 MG/5 ML GT SCH ×3 (09:00→17:00)
[2017-04-02] MEDS: SERTRALINE HCL 25 MG TABLET GT SCH (09:00)
[2017-04-02] MEDS: ZINC OXIDE 30 GM TUBE TP SCH ×2 (09:00→21:17)
[2017-04-02] MEDS: HEPARIN SODIUM, PORCINE 5000 UNITS/1 ML VIAL SQ SCH ×2 (09:00→21:17)
[2017-04-02] MEDS: HYDROGEN PEROXIDE 480 ML BOTTLE TP SCH ×2 (09:00→21:17)
[2017-04-02 19:50] VITALS: BP 115/79
[2017-04-02] MEDS: CHOLECALCIFEROL 1,000 UNIT TABLET (VIT D3) GT SCH (21:17)
[2017-04-02] MEDS: POLYETHYLENE GLYCOL 3350 17 GM POWD.PACK GT SCH (21:18)
[2017-04-03] MEDS: ALBUTEROL FS 2.5 MG/3 ML VIAL.NEB NEB SCH ×4 (01:05→20:20)
[2017-04-03] MEDS: POLYVINYL ALCOHOL 15 ML BOTTLE EACHEYE SCH ×4 (05:48→23:32)
[2017-04-03] MEDS: CHLORHEXIDINE GLUCONATE 15 ML UDC MM SCH ×2 (05:48→18:57)
[2017-04-03 08:32] VITALS: BP 127/66
[2017-04-03] MEDS: CARBAMAZEPINE 100 MG/5 ML GT SCH ×3 (09:53→17:00)
[2017-04-03] MEDS: HYDROGEN PEROXIDE 480 ML BOTTLE TP SCH ×2 (09:53→20:26)
[2017-04-03] MEDS: SENNOSIDES 8.6 MG TABLET GT SCH ×2 (09:53→20:25)
[2017-04-03] MEDS: LEVETIRACETAM SOL (5 ML) 100 MG/ML UDC GT SCH ×2 (09:53→20:25)
[2017-04-03] MEDS: BACLOFEN (10 MG) 10 MG TABLET GT SCH ×3 (09:53→17:00)
[2017-04-03] MEDS: HEPARIN SODIUM, PORCINE 5000 UNITS/1 ML VIAL SQ SCH ×2 (09:53→20:26)
[2017-04-03] MEDS: SERTRALINE HCL 25 MG TABLET GT SCH (09:53)
[2017-04-03] MEDS: ZINC OXIDE 30 GM TUBE TP SCH ×2 (09:53→20:26)
[2017-04-03] MEDS: FOLIC ACID 1 MG TABLET GT SCH ×2 (09:53→17:00)
--- NOTE | 2017-04-03 18:40 | NUR ---
Seen and examined by Sugar Spangler, COMMERCIAL FRONT LOAD DRIVER,NNO given.
[2017-04-03 20:00] VITALS: BP 100/59
[2017-04-03] MEDS: CHOLECALCIFEROL 1,000 UNIT TABLET (VIT D3) GT SCH (20:25)
[2017-04-03] MEDS: POLYETHYLENE GLYCOL 3350 17 GM POWD.PACK GT SCH (21:08)
[2017-04-03] MEDS: MAGNESIUM HYDROXIDE 30 ML UDC GT PRN (21:08)
[2017-04-04] MEDS: ALBUTEROL FS 2.5 MG/3 ML VIAL.NEB NEB SCH ×4 (00:43→19:26)
[2017-04-04] MEDS: CHLORHEXIDINE GLUCONATE 15 ML UDC MM SCH ×2 (05:23→17:56)
[2017-04-04] MEDS: POLYVINYL ALCOHOL 15 ML BOTTLE EACHEYE SCH ×4 (05:23→23:46)
[2017-04-04 07:34] VITALS: BP 103/64
--- NOTE | 2017-04-04 08:49 | NUR ---
per mother request hhn tx given at later time
[2017-04-04] MEDS: SENNOSIDES 8.6 MG TABLET GT SCH ×2 (09:28→21:05)
[2017-04-04] MEDS: FOLIC ACID 1 MG TABLET GT SCH ×2 (09:28→17:56)
[2017-04-04] MEDS: ZINC OXIDE 30 GM TUBE TP SCH ×2 (09:28→21:05)
[2017-04-04] MEDS: BACLOFEN (10 MG) 10 MG TABLET GT SCH ×3 (09:28→17:56)
[2017-04-04] MEDS: HEPARIN SODIUM, PORCINE 5000 UNITS/1 ML VIAL SQ SCH ×2 (09:28→21:05)
[2017-04-04] MEDS: HYDROGEN PEROXIDE 480 ML BOTTLE TP SCH ×2 (09:28→21:05)
[2017-04-04] MEDS: SERTRALINE HCL 25 MG TABLET GT SCH (09:28)
[2017-04-04] MEDS: LEVETIRACETAM SOL (5 ML) 100 MG/ML UDC GT SCH ×2 (09:28→21:05)
[2017-04-04] MEDS: CARBAMAZEPINE 100 MG/5 ML GT SCH ×3 (09:28→17:56)
--- NOTE | 2017-04-04 15:38 | NUR ---
Seen and examined by Dr. Aguilar NNO given. Both and Mrs Swift at the bedside when Dr. Aguilar made rounds, no concerns brought up.
[2017-04-04 19:44] VITALS: BP 107/62
[2017-04-04] MEDS: POLYETHYLENE GLYCOL 3350 17 GM POWD.PACK GT SCH (21:05)
[2017-04-04] MEDS: CHOLECALCIFEROL 1,000 UNIT TABLET (VIT D3) GT SCH (21:05)
[2017-04-05] MEDS: ALBUTEROL FS 2.5 MG/3 ML VIAL.NEB NEB SCH ×4 (01:33→19:14)
[2017-04-05] MEDS: MAGNESIUM HYDROXIDE 30 ML UDC GT PRN (05:15)
[2017-04-05] MEDS: POLYVINYL ALCOHOL 15 ML BOTTLE EACHEYE SCH ×4 (05:15→23:34)
[2017-04-05] MEDS: CHLORHEXIDINE GLUCONATE 15 ML UDC MM SCH ×2 (05:15→17:46)
[2017-04-05 07:46] VITALS: BP 117/74
[2017-04-05] MEDS: BACLOFEN (10 MG) 10 MG TABLET GT SCH ×3 (08:34→17:46)
[2017-04-05] MEDS: SERTRALINE HCL 25 MG TABLET GT SCH (08:34)
[2017-04-05] MEDS: CARBAMAZEPINE 100 MG/5 ML GT SCH ×3 (08:34→17:46)
[2017-04-05] MEDS: SENNOSIDES 8.6 MG TABLET GT SCH ×2 (08:34→20:14)
[2017-04-05] MEDS: FOLIC ACID 1 MG TABLET GT SCH ×2 (08:34→17:46)
[2017-04-05] MEDS: LEVETIRACETAM SOL (5 ML) 100 MG/ML UDC GT SCH ×2 (08:34→20:14)
[2017-04-05] MEDS: HEPARIN SODIUM, PORCINE 5000 UNITS/1 ML VIAL SQ SCH ×2 (08:38→20:14)
[2017-04-05] MEDS: HYDROGEN PEROXIDE 480 ML BOTTLE TP SCH ×2 (08:42→20:14)
[2017-04-05] MEDS: ZINC OXIDE 30 GM TUBE TP SCH ×2 (08:42→20:15)
--- NOTE | 2017-04-05 13:35 | NUR ---
Seen and examined by Dr. Jeff dsouza.
[2017-04-05 19:44] VITALS: BP 102/65
[2017-04-05] MEDS: CHOLECALCIFEROL 1,000 UNIT TABLET (VIT D3) GT SCH (20:14)
[2017-04-05] MEDS: POLYETHYLENE GLYCOL 3350 17 GM POWD.PACK GT SCH (21:39)
[2017-04-06] MEDS: ALBUTEROL FS 2.5 MG/3 ML VIAL.NEB NEB SCH ×4 (00:39→19:34)
[2017-04-06] MEDS: POLYVINYL ALCOHOL 15 ML BOTTLE EACHEYE SCH ×4 (05:11→23:48)
[2017-04-06] MEDS: CHLORHEXIDINE GLUCONATE 15 ML UDC MM SCH ×2 (05:11→17:02)
[2017-04-06 08:18] VITALS: BP 120/85
[2017-04-06] MEDS: CARBAMAZEPINE 100 MG/5 ML GT SCH ×3 (08:28→17:02)
[2017-04-06] MEDS: LEVETIRACETAM SOL (5 ML) 100 MG/ML UDC GT SCH ×2 (08:28→20:25)
[2017-04-06] MEDS: SERTRALINE HCL 25 MG TABLET GT SCH (08:28)
[2017-04-06] MEDS: BACLOFEN (10 MG) 10 MG TABLET GT SCH ×3 (08:28→17:02)
[2017-04-06] MEDS: FOLIC ACID 1 MG TABLET GT SCH ×2 (08:28→17:02)
[2017-04-06] MEDS: SENNOSIDES 8.6 MG TABLET GT SCH ×2 (08:28→20:25)
[2017-04-06] MEDS: HYDROGEN PEROXIDE 480 ML BOTTLE TP SCH ×2 (08:29→20:25)
[2017-04-06] MEDS: ZINC OXIDE 30 GM TUBE TP SCH ×2 (08:29→20:26)
[2017-04-06] MEDS: HEPARIN SODIUM, PORCINE 5000 UNITS/1 ML VIAL SQ SCH ×2 (08:29→20:25)
--- NOTE | 2017-04-06 15:55 | NUR ---
Seen by Dr. Sullivan (covering for Dr. Aguilar). Pt's mother at bedside. No new order.
[2017-04-06 20:10] VITALS: BP 107/62
[2017-04-06] MEDS: CHOLECALCIFEROL 1,000 UNIT TABLET (VIT D3) GT SCH (20:25)
[2017-04-06] MEDS: POLYETHYLENE GLYCOL 3350 17 GM POWD.PACK GT SCH (21:44)
[2017-04-07] MEDS: ALBUTEROL FS 2.5 MG/3 ML VIAL.NEB NEB SCH ×4 (01:35→19:06)
[2017-04-07] MEDS: POLYVINYL ALCOHOL 15 ML BOTTLE EACHEYE SCH ×4 (05:08→23:57)
[2017-04-07] MEDS: CHLORHEXIDINE GLUCONATE 15 ML UDC MM SCH ×2 (05:08→17:07)
[2017-04-07 07:39] VITALS: BP 130/58
[2017-04-07] MEDS: FOLIC ACID 1 MG TABLET GT SCH ×2 (08:25→17:07)
[2017-04-07] MEDS: LEVETIRACETAM SOL (5 ML) 100 MG/ML UDC GT SCH ×2 (08:25→20:43)
[2017-04-07] MEDS: BACLOFEN (10 MG) 10 MG TABLET GT SCH ×3 (08:26→17:07)
[2017-04-07] MEDS: CARBAMAZEPINE 100 MG/5 ML GT SCH ×3 (08:26→17:07)
[2017-04-07] MEDS: HYDROGEN PEROXIDE 480 ML BOTTLE TP SCH ×2 (08:26→20:51)
[2017-04-07] MEDS: HEPARIN SODIUM, PORCINE 5000 UNITS/1 ML VIAL SQ SCH ×2 (08:26→20:50)
[2017-04-07] MEDS: SERTRALINE HCL 25 MG TABLET GT SCH (08:26)
[2017-04-07] MEDS: SENNOSIDES 8.6 MG TABLET GT SCH ×2 (08:26→20:47)
[2017-04-07] MEDS: ZINC OXIDE 30 GM TUBE TP SCH ×2 (08:26→20:51)
[2017-04-07 19:31] VITALS: BP 125/67
[2017-04-07] MEDS: CHOLECALCIFEROL 1,000 UNIT TABLET (VIT D3) GT SCH (20:51)
[2017-04-07] MEDS: POLYETHYLENE GLYCOL 3350 17 GM POWD.PACK GT SCH (21:01)
[2017-04-08] MEDS: ALBUTEROL FS 2.5 MG/3 ML VIAL.NEB NEB SCH ×4 (01:46→19:34)
[2017-04-08] MEDS: CHLORHEXIDINE GLUCONATE 15 ML UDC MM SCH ×2 (05:03→17:14)
[2017-04-08] MEDS: POLYVINYL ALCOHOL 15 ML BOTTLE EACHEYE SCH ×3 (05:03→17:14)
[2017-04-08 07:50] VITALS: BP 116/88
[2017-04-08] MEDS: FOLIC ACID 1 MG TABLET GT SCH ×2 (08:01→16:49)
[2017-04-08] MEDS: LEVETIRACETAM SOL (5 ML) 100 MG/ML UDC GT SCH ×2 (08:01→20:24)
[2017-04-08] MEDS: BACLOFEN (10 MG) 10 MG TABLET GT SCH ×3 (08:02→16:49)
[2017-04-08] MEDS: SENNOSIDES 8.6 MG TABLET GT SCH ×2 (08:02→20:24)
[2017-04-08] MEDS: CARBAMAZEPINE 100 MG/5 ML GT SCH ×3 (08:03→16:50)
[2017-04-08] MEDS: SERTRALINE HCL 25 MG TABLET GT SCH (08:04)
[2017-04-08] MEDS: HEPARIN SODIUM, PORCINE 5000 UNITS/1 ML VIAL SQ SCH ×2 (08:17→20:25)
[2017-04-08] MEDS: ZINC OXIDE 30 GM TUBE TP SCH ×2 (09:30→20:25)
[2017-04-08] MEDS: HYDROGEN PEROXIDE 480 ML BOTTLE TP SCH ×2 (12:30→20:25)
[2017-04-08 20:11] VITALS: BP 106/66
[2017-04-08] MEDS: CHOLECALCIFEROL 1,000 UNIT TABLET (VIT D3) GT SCH (20:24)
[2017-04-08] MEDS: POLYETHYLENE GLYCOL 3350 17 GM POWD.PACK GT SCH (21:36)
[2017-04-09] MEDS: POLYVINYL ALCOHOL 15 ML BOTTLE EACHEYE SCH ×4 (00:08→17:48)
[2017-04-09] MEDS: ALBUTEROL FS 2.5 MG/3 ML VIAL.NEB NEB SCH ×4 (02:22→20:25)
[2017-04-09] MEDS: CHLORHEXIDINE GLUCONATE 15 ML UDC MM SCH ×2 (05:10→17:48)
[2017-04-09] MEDS: CARBAMAZEPINE 100 MG/5 ML GT SCH ×3 (08:32→17:48)
[2017-04-09] MEDS: LEVETIRACETAM SOL (5 ML) 100 MG/ML UDC GT SCH ×2 (08:32→21:05)
[2017-04-09] MEDS: HYDROGEN PEROXIDE 480 ML BOTTLE TP SCH ×2 (08:32→21:05)
[2017-04-09] MEDS: SENNOSIDES 8.6 MG TABLET GT SCH ×2 (08:32→21:05)
[2017-04-09] MEDS: SERTRALINE HCL 25 MG TABLET GT SCH (08:32)
[2017-04-09] MEDS: HEPARIN SODIUM, PORCINE 5000 UNITS/1 ML VIAL SQ SCH ×2 (08:32→21:05)
[2017-04-09] MEDS: BACLOFEN (10 MG) 10 MG TABLET GT SCH ×3 (08:32→17:48)
[2017-04-09] MEDS: FOLIC ACID 1 MG TABLET GT SCH ×2 (08:32→17:48)
[2017-04-09] MEDS: ZINC OXIDE 30 GM TUBE TP SCH ×2 (08:32→21:05)
[2017-04-09 19:54] VITALS: BP 105/63
[2017-04-09] MEDS: CHOLECALCIFEROL 1,000 UNIT TABLET (VIT D3) GT SCH (21:05)
[2017-04-09] MEDS: POLYETHYLENE GLYCOL 3350 17 GM POWD.PACK GT SCH (21:05)
[2017-04-09] MEDS: MAGNESIUM HYDROXIDE 30 ML UDC GT PRN (21:05)
[2017-04-10] MEDS: POLYVINYL ALCOHOL 15 ML BOTTLE EACHEYE SCH ×4 (00:05→18:22)
[2017-04-10] MEDS: ALBUTEROL FS 2.5 MG/3 ML VIAL.NEB NEB SCH ×4 (01:15→20:18)
[2017-04-10] MEDS: CHLORHEXIDINE GLUCONATE 15 ML UDC MM SCH ×2 (05:12→18:22)
[2017-04-10 07:44] VITALS: BP 118/69
[2017-04-10] MEDS: SENNOSIDES 8.6 MG TABLET GT SCH ×2 (09:24→20:14)
[2017-04-10] MEDS: BACLOFEN (10 MG) 10 MG TABLET GT SCH ×3 (09:24→16:37)
[2017-04-10] MEDS: CARBAMAZEPINE 100 MG/5 ML GT SCH ×3 (09:24→16:37)
[2017-04-10] MEDS: SERTRALINE HCL 25 MG TABLET GT SCH (09:24)
[2017-04-10] MEDS: HEPARIN SODIUM, PORCINE 5000 UNITS/1 ML VIAL SQ SCH ×2 (09:24→20:14)
[2017-04-10] MEDS: ZINC OXIDE 30 GM TUBE TP SCH ×2 (09:24→20:14)
[2017-04-10] MEDS: HYDROGEN PEROXIDE 480 ML BOTTLE TP SCH ×2 (09:24→20:14)
[2017-04-10] MEDS: LEVETIRACETAM SOL (5 ML) 100 MG/ML UDC GT SCH ×2 (09:24→20:14)
[2017-04-10] MEDS: FOLIC ACID 1 MG TABLET GT SCH ×2 (09:24→16:37)
--- NOTE | 2017-04-10 13:42 | NUR ---
IDT meeting held, reviewed current and new medications, treatments and labs. Family unable to attend. Dr. Lubin ordered CBC and Tegretol level per pharmacy recommendations. Orders noted and carried out.
[2017-04-10 19:48] VITALS: BP 129/57
[2017-04-10] MEDS: CHOLECALCIFEROL 1,000 UNIT TABLET (VIT D3) GT SCH (20:14)
[2017-04-10] MEDS: POLYETHYLENE GLYCOL 3350 17 GM POWD.PACK GT SCH (21:06)
[2017-04-11] MEDS: POLYVINYL ALCOHOL 15 ML BOTTLE EACHEYE SCH ×4 (00:09→17:16)
[2017-04-11] MEDS: ALBUTEROL FS 2.5 MG/3 ML VIAL.NEB NEB SCH ×4 (01:00→19:14)
[2017-04-11] MEDS: CHLORHEXIDINE GLUCONATE 15 ML UDC MM SCH ×2 (05:08→17:16)
[2017-04-11 07:33] VITALS: BP 113/49
[2017-04-11] MEDS: ZINC OXIDE 30 GM TUBE TP SCH ×2 (08:38→21:14)
[2017-04-11] MEDS: HEPARIN SODIUM, PORCINE 5000 UNITS/1 ML VIAL SQ SCH ×2 (08:38→21:14)
[2017-04-11] MEDS: SERTRALINE HCL 25 MG TABLET GT SCH (08:38)
[2017-04-11] MEDS: HYDROGEN PEROXIDE 480 ML BOTTLE TP SCH ×2 (08:38→21:14)
[2017-04-11] MEDS: CARBAMAZEPINE 100 MG/5 ML GT SCH ×3 (08:38→17:16)
[2017-04-11] MEDS: FOLIC ACID 1 MG TABLET GT SCH ×2 (08:38→17:16)
[2017-04-11] MEDS: BACLOFEN (10 MG) 10 MG TABLET GT SCH ×3 (08:38→17:16)
[2017-04-11] MEDS: LEVETIRACETAM SOL (5 ML) 100 MG/ML UDC GT SCH ×2 (08:38→21:14)
[2017-04-11] MEDS: SENNOSIDES 8.6 MG TABLET GT SCH ×2 (08:38→21:14)
[2017-04-11 19:52] VITALS: BP 115/72
[2017-04-11] MEDS: CHOLECALCIFEROL 1,000 UNIT TABLET (VIT D3) GT SCH (21:14)
[2017-04-11] MEDS: POLYETHYLENE GLYCOL 3350 17 GM POWD.PACK GT SCH (21:15)
[2017-04-12] MEDS: POLYVINYL ALCOHOL 15 ML BOTTLE EACHEYE SCH ×4 (00:04→18:26)
[2017-04-12] MEDS: ALBUTEROL FS 2.5 MG/3 ML VIAL.NEB NEB SCH ×4 (02:21→19:19)
[2017-04-12] MEDS: CHLORHEXIDINE GLUCONATE 15 ML UDC MM SCH ×2 (05:25→18:26)
[2017-04-12 07:46] VITALS: BP 138/79
[2017-04-12] MEDS: SERTRALINE HCL 25 MG TABLET GT SCH (08:12)
[2017-04-12] MEDS: SENNOSIDES 8.6 MG TABLET GT SCH ×2 (08:12→20:55)
[2017-04-12] MEDS: FOLIC ACID 1 MG TABLET GT SCH ×2 (08:12→16:36)
[2017-04-12] MEDS: BACLOFEN (10 MG) 10 MG TABLET GT SCH ×3 (08:12→16:36)
[2017-04-12] MEDS: CARBAMAZEPINE 100 MG/5 ML GT SCH ×3 (08:12→16:36)
[2017-04-12] MEDS: LEVETIRACETAM SOL (5 ML) 100 MG/ML UDC GT SCH ×2 (08:12→20:55)
[2017-04-12] MEDS: ZINC OXIDE 30 GM TUBE TP SCH ×2 (08:13→20:56)
[2017-04-12] MEDS: HYDROGEN PEROXIDE 480 ML BOTTLE TP SCH ×2 (08:13→20:55)
[2017-04-12] MEDS: HEPARIN SODIUM, PORCINE 5000 UNITS/1 ML VIAL SQ SCH ×2 (09:00→20:55)
[2017-04-12 19:57] VITALS: BP 113/64
[2017-04-12] MEDS: CHOLECALCIFEROL 1,000 UNIT TABLET (VIT D3) GT SCH (20:55)
[2017-04-12] MEDS: POLYETHYLENE GLYCOL 3350 17 GM POWD.PACK GT SCH (22:06)
[2017-04-13] MEDS: ALBUTEROL FS 2.5 MG/3 ML VIAL.NEB NEB SCH ×4 (01:24→19:35)
[2017-04-13] MEDS: CHLORHEXIDINE GLUCONATE 15 ML UDC MM SCH ×2 (05:04→17:30)
[2017-04-13] MEDS: POLYVINYL ALCOHOL 15 ML BOTTLE EACHEYE SCH ×5 (05:04→23:18)
[2017-04-13 07:16] LABS: BASOPHILS % (AUTO) 0.6 % (0.0-2.0); EOSINOPHILS # (AUTO) 0.3 /CMM (0.0-0.7); EOSINOPHILS % (AUTO) 5.9 % (0.0-6.0); HEMATOCRIT 42 % (33-45); HEMOGLOBIN 13.7 g/dL (11.5-14.8); LYMPHOCYTES # (AUTO) 2.2 /CMM (0.8-4.8); LYMPHOCYTES % (AUTO) 42.6 % (20.0-44.0); MEAN CORPUSCULAR HEMOGLOBIN 31 PG (26.0-33.0); MEAN CORPUSCULAR HGB CONC 33 g/dl (31.0-36.0); MEAN CORPUSCULAR VOLUME 95 fL (82-100); MONOCYTES # (AUTO) 0.4 /CMM (0.1-1.30); MONOCYTES % (AUTO) 7.5 % (2.0-12.0); NEUTROPHILS # (AUTO) 2.3 /CMM (1.8-8.9); NEUTROPHILS % (AUTO) 43.4 % (43.0-81.0); PLATELET COUNT (AUTO) 289 /CMM (150-450); RDW COEFFICIENT OF VARIATION 13.3 (11.5-15.0); RED BLOOD CELL COUNT(AUTO) 4.37 MIL/uL (4.0-5.2); WHITE BLOOD COUNT (AUTO) 5.3 K/uL (4.3-11.0)
[2017-04-13 08:00] VITALS: BP 131/64
[2017-04-13] MEDS: CARBAMAZEPINE 100 MG/5 ML GT SCH ×3 (08:33→17:30)
[2017-04-13] MEDS: LEVETIRACETAM SOL (5 ML) 100 MG/ML UDC GT SCH ×2 (08:33→20:12)
[2017-04-13] MEDS: SERTRALINE HCL 25 MG TABLET GT SCH (08:33)
[2017-04-13] MEDS: SENNOSIDES 8.6 MG TABLET GT SCH ×2 (08:33→20:12)
[2017-04-13] MEDS: FOLIC ACID 1 MG TABLET GT SCH ×2 (08:33→17:30)
[2017-04-13] MEDS: BACLOFEN (10 MG) 10 MG TABLET GT SCH ×3 (08:33→17:30)
[2017-04-13] MEDS: HEPARIN SODIUM, PORCINE 5000 UNITS/1 ML VIAL SQ SCH ×2 (08:34→20:12)
[2017-04-13] MEDS: HYDROGEN PEROXIDE 480 ML BOTTLE TP SCH ×2 (08:34→20:12)
[2017-04-13] MEDS: ZINC OXIDE 30 GM TUBE TP SCH ×2 (08:34→20:12)
[2017-04-13 20:01] VITALS: BP 108/56
[2017-04-13] MEDS: CHOLECALCIFEROL 1,000 UNIT TABLET (VIT D3) GT SCH (20:12)
[2017-04-13] MEDS: POLYETHYLENE GLYCOL 3350 17 GM POWD.PACK GT SCH (21:39)
[2017-04-14] MEDS: ALBUTEROL FS 2.5 MG/3 ML VIAL.NEB NEB SCH ×4 (00:45→19:45)
[2017-04-14] MEDS: POLYVINYL ALCOHOL 15 ML BOTTLE EACHEYE SCH ×4 (05:22→23:25)
[2017-04-14] MEDS: CHLORHEXIDINE GLUCONATE 15 ML UDC MM SCH ×2 (05:22→17:11)
[2017-04-14 07:46] VITALS: BP 131/71
[2017-04-14] MEDS: SERTRALINE HCL 25 MG TABLET GT SCH (08:25)
[2017-04-14] MEDS: CARBAMAZEPINE 100 MG/5 ML GT SCH ×3 (08:25→17:11)
[2017-04-14] MEDS: BACLOFEN (10 MG) 10 MG TABLET GT SCH ×3 (08:25→17:11)
[2017-04-14] MEDS: SENNOSIDES 8.6 MG TABLET GT SCH ×2 (08:25→20:05)
[2017-04-14] MEDS: FOLIC ACID 1 MG TABLET GT SCH ×2 (08:25→17:11)
[2017-04-14] MEDS: LEVETIRACETAM SOL (5 ML) 100 MG/ML UDC GT SCH ×2 (08:25→20:05)
[2017-04-14] MEDS: HEPARIN SODIUM, PORCINE 5000 UNITS/1 ML VIAL SQ SCH ×2 (08:26→20:10)
[2017-04-14] MEDS: HYDROGEN PEROXIDE 480 ML BOTTLE TP SCH ×2 (08:26→20:11)
[2017-04-14] MEDS: ZINC OXIDE 30 GM TUBE TP SCH ×2 (08:26→20:11)
[2017-04-14] MEDS: CHOLECALCIFEROL 1,000 UNIT TABLET (VIT D3) GT SCH (20:10)
[2017-04-14 20:13] VITALS: BP 104/60
[2017-04-14] MEDS: POLYETHYLENE GLYCOL 3350 17 GM POWD.PACK GT SCH (21:33)
[2017-04-15] MEDS: ALBUTEROL FS 2.5 MG/3 ML VIAL.NEB NEB SCH ×4 (01:52→19:29)
[2017-04-15] MEDS: CHLORHEXIDINE GLUCONATE 15 ML UDC MM SCH ×2 (05:09→18:38)
[2017-04-15] MEDS: POLYVINYL ALCOHOL 15 ML BOTTLE EACHEYE SCH ×3 (05:09→18:38)
[2017-04-15 07:52] VITALS: BP 113/63
[2017-04-15] MEDS: FOLIC ACID 1 MG TABLET GT SCH ×2 (08:26→17:00)
[2017-04-15] MEDS: SENNOSIDES 8.6 MG TABLET GT SCH ×2 (08:26→20:10)
[2017-04-15] MEDS: BACLOFEN (10 MG) 10 MG TABLET GT SCH ×3 (08:26→17:00)
[2017-04-15] MEDS: LEVETIRACETAM SOL (5 ML) 100 MG/ML UDC GT SCH ×2 (08:26→20:10)
[2017-04-15] MEDS: HEPARIN SODIUM, PORCINE 5000 UNITS/1 ML VIAL SQ SCH ×2 (08:28→20:11)
[2017-04-15] MEDS: SERTRALINE HCL 25 MG TABLET GT SCH (08:28)
[2017-04-15] MEDS: CARBAMAZEPINE 100 MG/5 ML GT SCH ×3 (08:28→17:00)
[2017-04-15] MEDS: ZINC OXIDE 30 GM TUBE TP SCH ×2 (08:29→20:11)
[2017-04-15] MEDS: HYDROGEN PEROXIDE 480 ML BOTTLE TP SCH ×2 (08:29→20:11)
[2017-04-15] MEDS: CHOLECALCIFEROL 1,000 UNIT TABLET (VIT D3) GT SCH (20:16)
[2017-04-15] MEDS: POLYETHYLENE GLYCOL 3350 17 GM POWD.PACK GT SCH (21:30)
[2017-04-15 22:23] VITALS: BP 119/61
[2017-04-16] MEDS: POLYVINYL ALCOHOL 15 ML BOTTLE EACHEYE SCH ×5 (00:03→23:39)
[2017-04-16] MEDS: ALBUTEROL FS 2.5 MG/3 ML VIAL.NEB NEB SCH ×4 (01:24→20:12)
[2017-04-16] MEDS: CHLORHEXIDINE GLUCONATE 15 ML UDC MM SCH ×2 (05:42→17:11)
[2017-04-16 07:33] VITALS: BP 123/68
[2017-04-16] MEDS: CARBAMAZEPINE 100 MG/5 ML GT SCH ×3 (09:22→17:10)
[2017-04-16] MEDS: SENNOSIDES 8.6 MG TABLET GT SCH ×2 (09:22→21:23)
[2017-04-16] MEDS: SERTRALINE HCL 25 MG TABLET GT SCH (09:22)
[2017-04-16] MEDS: LEVETIRACETAM SOL (5 ML) 100 MG/ML UDC GT SCH ×2 (09:22→21:23)
[2017-04-16] MEDS: BACLOFEN (10 MG) 10 MG TABLET GT SCH ×3 (09:22→17:10)
[2017-04-16] MEDS: FOLIC ACID 1 MG TABLET GT SCH ×2 (09:22→17:10)
[2017-04-16] MEDS: ZINC OXIDE 30 GM TUBE TP SCH ×2 (09:23→21:24)
[2017-04-16] MEDS: HYDROGEN PEROXIDE 480 ML BOTTLE TP SCH ×2 (09:23→21:24)
[2017-04-16] MEDS: HEPARIN SODIUM, PORCINE 5000 UNITS/1 ML VIAL SQ SCH ×2 (09:23→21:24)
[2017-04-16 19:54] VITALS: BP 108/64
[2017-04-16] MEDS: CHOLECALCIFEROL 1,000 UNIT TABLET (VIT D3) GT SCH (21:23)
[2017-04-16] MEDS: POLYETHYLENE GLYCOL 3350 17 GM POWD.PACK GT SCH (21:24)
[2017-04-17] MEDS: ALBUTEROL FS 2.5 MG/3 ML VIAL.NEB NEB SCH ×4 (01:56→20:11)
[2017-04-17] MEDS: POLYVINYL ALCOHOL 15 ML BOTTLE EACHEYE SCH ×4 (05:32→23:32)
[2017-04-17] MEDS: CHLORHEXIDINE GLUCONATE 15 ML UDC MM SCH ×2 (05:32→18:34)
[2017-04-17 07:28] VITALS: BP 121/59
[2017-04-17] MEDS: LEVETIRACETAM SOL (5 ML) 100 MG/ML UDC GT SCH ×2 (08:21→21:17)
[2017-04-17] MEDS: BACLOFEN (10 MG) 10 MG TABLET GT SCH ×3 (08:21→17:00)
[2017-04-17] MEDS: SERTRALINE HCL 25 MG TABLET GT SCH (08:21)
[2017-04-17] MEDS: FOLIC ACID 1 MG TABLET GT SCH ×2 (08:21→17:00)
[2017-04-17] MEDS: CARBAMAZEPINE 100 MG/5 ML GT SCH ×3 (08:21→17:00)
[2017-04-17] MEDS: SENNOSIDES 8.6 MG TABLET GT SCH ×2 (08:21→21:17)
[2017-04-17] MEDS: ZINC OXIDE 30 GM TUBE TP SCH ×2 (08:33→21:18)
[2017-04-17] MEDS: HEPARIN SODIUM, PORCINE 5000 UNITS/1 ML VIAL SQ SCH ×2 (08:33→21:18)
[2017-04-17] MEDS: HYDROGEN PEROXIDE 480 ML BOTTLE TP SCH ×2 (08:33→21:18)
[2017-04-17] MEDS: CHOLECALCIFEROL 1,000 UNIT TABLET (VIT D3) GT SCH (21:17)
[2017-04-17] MEDS: POLYETHYLENE GLYCOL 3350 17 GM POWD.PACK GT SCH (21:18)
[2017-04-17 21:34] VITALS: BP 113/70
[2017-04-18] MEDS: ALBUTEROL FS 2.5 MG/3 ML VIAL.NEB NEB SCH ×4 (01:10→20:15)
[2017-04-18] MEDS: POLYVINYL ALCOHOL 15 ML BOTTLE EACHEYE SCH ×3 (05:15→17:31)
[2017-04-18] MEDS: CHLORHEXIDINE GLUCONATE 15 ML UDC MM SCH ×2 (05:15→17:32)
[2017-04-18 07:21] VITALS: BP 106/57
[2017-04-18] MEDS: BACLOFEN (10 MG) 10 MG TABLET GT SCH ×3 (08:12→17:31)
[2017-04-18] MEDS: SENNOSIDES 8.6 MG TABLET GT SCH ×2 (08:12→21:04)
[2017-04-18] MEDS: HEPARIN SODIUM, PORCINE 5000 UNITS/1 ML VIAL SQ SCH ×2 (08:12→21:05)
[2017-04-18] MEDS: HYDROGEN PEROXIDE 480 ML BOTTLE TP SCH ×2 (08:12→21:05)
[2017-04-18] MEDS: SERTRALINE HCL 25 MG TABLET GT SCH (08:12)
[2017-04-18] MEDS: CARBAMAZEPINE 100 MG/5 ML GT SCH ×3 (08:12→17:31)
[2017-04-18] MEDS: FOLIC ACID 1 MG TABLET GT SCH ×2 (08:12→17:31)
[2017-04-18] MEDS: CHLORHEXIDINE GLUCONATE 4% 118 ML BOTTLE TP SCH (08:12)
[2017-04-18] MEDS: LEVETIRACETAM SOL (5 ML) 100 MG/ML UDC GT SCH ×2 (08:12→21:04)
[2017-04-18] MEDS: ZINC OXIDE 30 GM TUBE TP SCH ×2 (08:13→21:05)
[2017-04-18 19:43] VITALS: BP 117/57
[2017-04-18] MEDS: CHOLECALCIFEROL 1,000 UNIT TABLET (VIT D3) GT SCH (21:04)
[2017-04-18] MEDS: POLYETHYLENE GLYCOL 3350 17 GM POWD.PACK GT SCH (21:05)
[2017-04-19] MEDS: POLYVINYL ALCOHOL 15 ML BOTTLE EACHEYE SCH ×5 (00:23→23:50)
[2017-04-19] MEDS: ALBUTEROL FS 2.5 MG/3 ML VIAL.NEB NEB SCH ×4 (02:12→19:58)
[2017-04-19] MEDS: CHLORHEXIDINE GLUCONATE 15 ML UDC MM SCH ×2 (05:19→17:36)
[2017-04-19 07:35] VITALS: BP 136/55
[2017-04-19] MEDS: CARBAMAZEPINE 100 MG/5 ML GT SCH ×3 (09:28→17:36)
[2017-04-19] MEDS: FOLIC ACID 1 MG TABLET GT SCH ×2 (09:28→17:36)
[2017-04-19] MEDS: LEVETIRACETAM SOL (5 ML) 100 MG/ML UDC GT SCH ×2 (09:28→21:02)
[2017-04-19] MEDS: SENNOSIDES 8.6 MG TABLET GT SCH ×2 (09:28→21:02)
[2017-04-19] MEDS: BACLOFEN (10 MG) 10 MG TABLET GT SCH ×3 (09:28→17:36)
[2017-04-19] MEDS: SERTRALINE HCL 25 MG TABLET GT SCH (09:29)
[2017-04-19] MEDS: ZINC OXIDE 30 GM TUBE TP SCH ×2 (09:38→21:03)
[2017-04-19] MEDS: HYDROGEN PEROXIDE 480 ML BOTTLE TP SCH ×2 (09:38→21:03)
[2017-04-19] MEDS: CHLORHEXIDINE GLUCONATE 4% 118 ML BOTTLE TP SCH (09:38)
[2017-04-19] MEDS: HEPARIN SODIUM, PORCINE 5000 UNITS/1 ML VIAL SQ SCH ×2 (09:38→21:03)
[2017-04-19 19:43] VITALS: BP 106/57
[2017-04-19] MEDS: CHOLECALCIFEROL 1,000 UNIT TABLET (VIT D3) GT SCH (21:02)
[2017-04-19] MEDS: POLYETHYLENE GLYCOL 3350 17 GM POWD.PACK GT SCH (21:03)
[2017-04-20] MEDS: ALBUTEROL FS 2.5 MG/3 ML VIAL.NEB NEB SCH ×5 (02:15→20:08)
[2017-04-20] MEDS: POLYVINYL ALCOHOL 15 ML BOTTLE EACHEYE SCH ×4 (05:14→23:36)
[2017-04-20] MEDS: CHLORHEXIDINE GLUCONATE 15 ML UDC MM SCH ×2 (05:14→17:26)
[2017-04-20 08:19] VITALS: BP 135/64
[2017-04-20] MEDS: FOLIC ACID 1 MG TABLET GT SCH ×2 (08:25→17:26)
[2017-04-20] MEDS: CARBAMAZEPINE 100 MG/5 ML GT SCH ×3 (08:25→17:26)
[2017-04-20] MEDS: SENNOSIDES 8.6 MG TABLET GT SCH ×2 (08:25→21:10)
[2017-04-20] MEDS: SERTRALINE HCL 25 MG TABLET GT SCH (08:25)
[2017-04-20] MEDS: BACLOFEN (10 MG) 10 MG TABLET GT SCH ×3 (08:25→17:26)
[2017-04-20] MEDS: LEVETIRACETAM SOL (5 ML) 100 MG/ML UDC GT SCH ×2 (08:25→21:10)
[2017-04-20] MEDS: HEPARIN SODIUM, PORCINE 5000 UNITS/1 ML VIAL SQ SCH ×2 (08:26→21:11)
[2017-04-20] MEDS: HYDROGEN PEROXIDE 480 ML BOTTLE TP SCH ×2 (08:26→21:11)
[2017-04-20] MEDS: ZINC OXIDE 30 GM TUBE TP SCH ×2 (08:27→21:12)
--- NOTE | 2017-04-20 11:18 | NUR ---
Resident seen by Dr. Moncho DAUGHERTY. He stated that he did a cleaning for the resident with mother's assistance and that he will return to do the second portion of the cleaning in a few weeks.
[2017-04-20 20:04] VITALS: BP 113/68
[2017-04-20] MEDS: POLYETHYLENE GLYCOL 3350 17 GM POWD.PACK GT SCH (21:13)
[2017-04-20] MEDS: CHOLECALCIFEROL 1,000 UNIT TABLET (VIT D3) GT SCH (21:14)
[2017-04-21] MEDS: ALBUTEROL FS 2.5 MG/3 ML VIAL.NEB NEB SCH ×4 (01:58→20:04)
[2017-04-21] MEDS: POLYVINYL ALCOHOL 15 ML BOTTLE EACHEYE SCH ×4 (05:19→23:11)
[2017-04-21] MEDS: CHLORHEXIDINE GLUCONATE 15 ML UDC MM SCH ×2 (05:19→17:19)
[2017-04-21 07:53] VITALS: BP 110/75
[2017-04-21] MEDS: CARBAMAZEPINE 100 MG/5 ML GT SCH ×3 (09:56→16:30)
[2017-04-21] MEDS: HYDROGEN PEROXIDE 480 ML BOTTLE TP SCH ×2 (09:56→20:44)
[2017-04-21] MEDS: SERTRALINE HCL 25 MG TABLET GT SCH (09:56)
[2017-04-21] MEDS: HEPARIN SODIUM, PORCINE 5000 UNITS/1 ML VIAL SQ SCH ×2 (09:56→20:43)
[2017-04-21] MEDS: LEVETIRACETAM SOL (5 ML) 100 MG/ML UDC GT SCH ×2 (09:56→20:42)
[2017-04-21] MEDS: BACLOFEN (10 MG) 10 MG TABLET GT SCH ×3 (09:56→16:30)
[2017-04-21] MEDS: FOLIC ACID 1 MG TABLET GT SCH ×2 (09:56→16:30)
[2017-04-21] MEDS: SENNOSIDES 8.6 MG TABLET GT SCH ×2 (09:56→20:42)
[2017-04-21] MEDS: ZINC OXIDE 30 GM TUBE TP SCH ×2 (09:57→20:44)
[2017-04-21 20:38] VITALS: BP 118/62
[2017-04-21] MEDS: CHOLECALCIFEROL 1,000 UNIT TABLET (VIT D3) GT SCH (20:42)
[2017-04-21] MEDS: POLYETHYLENE GLYCOL 3350 17 GM POWD.PACK GT SCH (22:39)
[2017-04-22] MEDS: ALBUTEROL FS 2.5 MG/3 ML VIAL.NEB NEB SCH ×4 (01:08→19:30)
[2017-04-22] MEDS: POLYVINYL ALCOHOL 15 ML BOTTLE EACHEYE SCH ×3 (05:44→18:45)
[2017-04-22] MEDS: CHLORHEXIDINE GLUCONATE 15 ML UDC MM SCH ×2 (05:44→18:45)
[2017-04-22 08:41] VITALS: BP 122/51
[2017-04-22] MEDS: BACLOFEN (10 MG) 10 MG TABLET GT SCH ×3 (08:58→17:00)
[2017-04-22] MEDS: LEVETIRACETAM SOL (5 ML) 100 MG/ML UDC GT SCH ×2 (08:58→21:52)
[2017-04-22] MEDS: SERTRALINE HCL 25 MG TABLET GT SCH (08:58)
[2017-04-22] MEDS: CARBAMAZEPINE 100 MG/5 ML GT SCH ×3 (08:58→17:00)
[2017-04-22] MEDS: FOLIC ACID 1 MG TABLET GT SCH ×2 (08:58→17:00)
[2017-04-22] MEDS: SENNOSIDES 8.6 MG TABLET GT SCH ×2 (08:58→21:52)
[2017-04-22] MEDS: HEPARIN SODIUM, PORCINE 5000 UNITS/1 ML VIAL SQ SCH ×2 (08:59→21:53)
[2017-04-22] MEDS: ZINC OXIDE 30 GM TUBE TP SCH ×2 (09:00→21:53)
[2017-04-22] MEDS: HYDROGEN PEROXIDE 480 ML BOTTLE TP SCH ×2 (09:00→21:53)
--- NOTE | 2017-04-22 11:58 | NUR ---
Resident's mother attended the support group meeting. Subacute processing manager was also in attendance. Resident's mother stated that she would like for staff to follow rotation schedule that has been set, would like other resident's to also be transferred to the shower bed using the ama lift, and for staff MATERIAL EXPEDITOR's to feed resident during lunch and dinner. Subacute processing manager stated she would talk to the MATERIAL EXPEDITOR's and will notify them that they are responsible for giving resident lunch and dinner. Concerns were addressed by subacute processing manager and will be communicated with subacute staff. Resident also has stable weight with no significant weight loss from March to April.
--- NOTE | 2017-04-22 14:30 | NUR ---
Dr. Aguilar seen and examined resident, he agreed to give flu vaccine to resident. Resident's mother consented to administration of the vaccine.
[2017-04-22 20:32] VITALS: BP 104/56
[2017-04-22] MEDS: CHOLECALCIFEROL 1,000 UNIT TABLET (VIT D3) GT SCH (21:52)
[2017-04-22] MEDS: POLYETHYLENE GLYCOL 3350 17 GM POWD.PACK GT SCH (21:53)
[2017-04-23] MEDS: POLYVINYL ALCOHOL 15 ML BOTTLE EACHEYE SCH ×4 (00:10→18:57)
[2017-04-23] MEDS: ALBUTEROL FS 2.5 MG/3 ML VIAL.NEB NEB SCH ×4 (02:16→19:41)
[2017-04-23] MEDS: CHLORHEXIDINE GLUCONATE 15 ML UDC MM SCH ×2 (05:29→18:57)
[2017-04-23] MEDS: LEVETIRACETAM SOL (5 ML) 100 MG/ML UDC GT SCH ×2 (08:44→21:08)
[2017-04-23] MEDS: FOLIC ACID 1 MG TABLET GT SCH ×2 (08:44→17:00)
[2017-04-23] MEDS: BACLOFEN (10 MG) 10 MG TABLET GT SCH ×3 (08:45→17:00)
[2017-04-23] MEDS: SERTRALINE HCL 25 MG TABLET GT SCH (08:45)
[2017-04-23] MEDS: SENNOSIDES 8.6 MG TABLET GT SCH ×2 (08:46→21:08)
[2017-04-23] MEDS: CARBAMAZEPINE 100 MG/5 ML GT SCH ×3 (08:46→17:00)
[2017-04-23] MEDS: HEPARIN SODIUM, PORCINE 5000 UNITS/1 ML VIAL SQ SCH ×2 (08:48→21:09)
[2017-04-23] MEDS: HYDROGEN PEROXIDE 480 ML BOTTLE TP SCH ×2 (08:48→21:09)
[2017-04-23] MEDS: ZINC OXIDE 30 GM TUBE TP SCH ×2 (08:49→21:09)
[2017-04-23 09:18] VITALS: BP 109/69
[2017-04-23 19:31] VITALS: BP 109/69
[2017-04-23] MEDS: CHOLECALCIFEROL 1,000 UNIT TABLET (VIT D3) GT SCH (21:08)
[2017-04-23] MEDS: POLYETHYLENE GLYCOL 3350 17 GM POWD.PACK GT SCH (21:09)
[2017-04-24] MEDS: POLYVINYL ALCOHOL 15 ML BOTTLE EACHEYE SCH ×4 (00:14→17:23)
[2017-04-24] MEDS: ALBUTEROL FS 2.5 MG/3 ML VIAL.NEB NEB SCH ×4 (00:35→19:03)
[2017-04-24] MEDS: CHLORHEXIDINE GLUCONATE 15 ML UDC MM SCH ×2 (05:08→17:23)
[2017-04-24 07:33] VITALS: BP 104/73
[2017-04-24] MEDS: SENNOSIDES 8.6 MG TABLET GT SCH ×2 (08:05→21:50)
[2017-04-24] MEDS: FOLIC ACID 1 MG TABLET GT SCH ×2 (08:05→17:23)
[2017-04-24] MEDS: CARBAMAZEPINE 100 MG/5 ML GT SCH ×3 (08:05→17:23)
[2017-04-24] MEDS: LEVETIRACETAM SOL (5 ML) 100 MG/ML UDC GT SCH ×2 (08:05→21:50)
[2017-04-24] MEDS: SERTRALINE HCL 25 MG TABLET GT SCH (08:05)
[2017-04-24] MEDS: BACLOFEN (10 MG) 10 MG TABLET GT SCH ×3 (08:05→17:23)
[2017-04-24] MEDS: HEPARIN SODIUM, PORCINE 5000 UNITS/1 ML VIAL SQ SCH ×2 (08:06→21:51)
[2017-04-24] MEDS: ZINC OXIDE 30 GM TUBE TP SCH ×2 (08:06→21:51)
--- NOTE | 2017-04-24 09:20 | NUR ---
Social Service Section of [facility] (2nd quarter) completed. Resident is alert but does not communicate. Her parents, Darrel and Anaya Swift are involved in her care and mother is here on a daily basis. Father visits as often as he can due to his work schedule. She had a recent dental cleaning on 04/20/2017 and dentist will return on 05/04/2016 for second half of cleaning . Mother has refused traffic chief and stated that she is taking care of the resident's nails. She was seen by the radiology services manager Dr. Millan on 02/27/2017. Discharge to a lower level of care when medically appropriate.
[2017-04-24] MEDS ORDERED: BOTULINUM TOXIN TYPE A 100 UNITS VIAL INJ ONE (11:30)
--- NOTE | 2017-04-24 11:30 | NUR ---
Received an order from Dr. Marlon Lombardi for quarterly administration of Botox 500 units to patient's upper and lower extremities due to Dystonia. Orders noted and carried out. [facility], it will be delivered tomorrow. Endorsed.
[2017-04-24] MEDS: HYDROGEN PEROXIDE 480 ML BOTTLE TP SCH ×2 (11:45→21:51)
[2017-04-24 19:11] VITALS: BP 125/71
[2017-04-24] MEDS: CHOLECALCIFEROL 1,000 UNIT TABLET (VIT D3) GT SCH (21:50)
[2017-04-24] MEDS: POLYETHYLENE GLYCOL 3350 17 GM POWD.PACK GT SCH (21:51)
[2017-04-25] MEDS: POLYVINYL ALCOHOL 15 ML BOTTLE EACHEYE SCH ×4 (00:17→17:51)
[2017-04-25] MEDS: ALBUTEROL FS 2.5 MG/3 ML VIAL.NEB NEB SCH ×4 (01:18→19:28)
[2017-04-25] MEDS: CHLORHEXIDINE GLUCONATE 15 ML UDC MM SCH ×2 (05:23→17:51)
[2017-04-25 07:38] VITALS: BP 111/75
[2017-04-25] MEDS: SERTRALINE HCL 25 MG TABLET GT SCH (08:46)
[2017-04-25] MEDS: SENNOSIDES 8.6 MG TABLET GT SCH ×2 (08:46→21:53)
[2017-04-25] MEDS: BACLOFEN (10 MG) 10 MG TABLET GT SCH ×3 (08:46→17:51)
[2017-04-25] MEDS: CARBAMAZEPINE 100 MG/5 ML GT SCH ×3 (08:46→17:51)
[2017-04-25] MEDS: LEVETIRACETAM SOL (5 ML) 100 MG/ML UDC GT SCH ×2 (08:46→21:53)
[2017-04-25] MEDS: FOLIC ACID 1 MG TABLET GT SCH ×2 (08:46→17:51)
[2017-04-25] MEDS: HEPARIN SODIUM, PORCINE 5000 UNITS/1 ML VIAL SQ SCH ×2 (08:47→21:54)
[2017-04-25] MEDS: HYDROGEN PEROXIDE 480 ML BOTTLE TP SCH ×2 (09:00→21:54)
[2017-04-25] MEDS: ZINC OXIDE 30 GM TUBE TP SCH ×2 (09:00→21:54)
--- NOTE | 2017-04-25 13:00 | NUR ---
Non compliance: Skin is warm and dry moist oral mucosa. Mother refused Mepilex topical treatment order on patient as ordered. Patient teaching provided to mother regarding following Doctor's order. Verbalized understanding of refusing topical treatment as ordered. Mother putting personal powder and lotions and treatments on sacral/perineal area. Stated will have daughter with no Mepilex for a while because she believes she needs a break from the Mepilex. RN supervisor nurse notified. Mother explained patient is at risk or developing further skin breakdown if not following plan of care. Still refused Mepilex.
--- NOTE | 2017-04-25 15:00 | NUR ---
Per [facility] pharmacy staff, Botox will be delivered on Thursday as they do not have it in stock.
[2017-04-25 19:35] VITALS: BP 110/76
[2017-04-25] MEDS: CHOLECALCIFEROL 1,000 UNIT TABLET (VIT D3) GT SCH (21:53)
[2017-04-25] MEDS: POLYETHYLENE GLYCOL 3350 17 GM POWD.PACK GT SCH (21:54)
[2017-04-26] MEDS: ALBUTEROL FS 2.5 MG/3 ML VIAL.NEB NEB SCH ×4 (01:33→19:20)
[2017-04-26] MEDS: CHLORHEXIDINE GLUCONATE 15 ML UDC MM SCH ×2 (05:14→18:30)
[2017-04-26] MEDS: POLYVINYL ALCOHOL 15 ML BOTTLE EACHEYE SCH ×5 (05:14→23:37)
[2017-04-26 07:59] VITALS: BP 114/63
[2017-04-26] MEDS: HYDROGEN PEROXIDE 480 ML BOTTLE TP SCH ×2 (08:31→21:33)
[2017-04-26] MEDS: ZINC OXIDE 30 GM TUBE TP SCH ×2 (08:31→21:33)
[2017-04-26] MEDS: SENNOSIDES 8.6 MG TABLET GT SCH ×2 (08:31→21:33)
[2017-04-26] MEDS: LEVETIRACETAM SOL (5 ML) 100 MG/ML UDC GT SCH ×2 (08:31→21:33)
[2017-04-26] MEDS: FOLIC ACID 1 MG TABLET GT SCH ×2 (08:31→16:42)
[2017-04-26] MEDS: CARBAMAZEPINE 100 MG/5 ML GT SCH ×3 (08:31→16:42)
[2017-04-26] MEDS: HEPARIN SODIUM, PORCINE 5000 UNITS/1 ML VIAL SQ SCH ×2 (08:31→21:40)
[2017-04-26] MEDS: BACLOFEN (10 MG) 10 MG TABLET GT SCH ×3 (08:31→16:42)
[2017-04-26] MEDS: SERTRALINE HCL 25 MG TABLET GT SCH (08:31)
[2017-04-26] MEDS ORDERED: FLU VACC QS 2017-18(36MOS+)/PF 0.5 ML DISP.SYRIN IM ONE (17:00)
[2017-04-26 19:28] VITALS: BP 104/64
[2017-04-26] MEDS: CHOLECALCIFEROL 1,000 UNIT TABLET (VIT D3) GT SCH (21:33)
[2017-04-26] MEDS: POLYETHYLENE GLYCOL 3350 17 GM POWD.PACK GT SCH (21:34)
[2017-04-27] MEDS: ALBUTEROL FS 2.5 MG/3 ML VIAL.NEB NEB SCH ×4 (01:10→19:19)
[2017-04-27] MEDS: POLYVINYL ALCOHOL 15 ML BOTTLE EACHEYE SCH ×4 (05:32→23:52)
[2017-04-27] MEDS: CHLORHEXIDINE GLUCONATE 15 ML UDC MM SCH ×2 (05:32→17:11)
[2017-04-27] MEDS: FOLIC ACID 1 MG TABLET GT SCH ×2 (08:29→17:11)
[2017-04-27] MEDS: CARBAMAZEPINE 100 MG/5 ML GT SCH ×3 (08:29→17:11)
[2017-04-27] MEDS: BACLOFEN (10 MG) 10 MG TABLET GT SCH ×3 (08:29→17:11)
[2017-04-27] MEDS: LEVETIRACETAM SOL (5 ML) 100 MG/ML UDC GT SCH ×2 (08:29→21:20)
[2017-04-27] MEDS: HEPARIN SODIUM, PORCINE 5000 UNITS/1 ML VIAL SQ SCH ×2 (08:29→21:27)
[2017-04-27] MEDS: SENNOSIDES 8.6 MG TABLET GT SCH ×2 (08:29→21:17)
[2017-04-27] MEDS: SERTRALINE HCL 25 MG TABLET GT SCH (08:29)
[2017-04-27] MEDS: ZINC OXIDE 30 GM TUBE TP SCH ×2 (08:30→21:23)
[2017-04-27] MEDS: HYDROGEN PEROXIDE 480 ML BOTTLE TP SCH ×2 (08:30→21:22)
[2017-04-27 14:33] VITALS: BP 108/70
[2017-04-27 20:04] VITALS: BP 121/60
[2017-04-27] MEDS: CHOLECALCIFEROL 1,000 UNIT TABLET (VIT D3) GT SCH (21:20)
[2017-04-27] MEDS: POLYETHYLENE GLYCOL 3350 17 GM POWD.PACK GT SCH (21:26)
[2017-04-28] MEDS: ALBUTEROL FS 2.5 MG/3 ML VIAL.NEB NEB SCH ×4 (01:40→19:19)
[2017-04-28] MEDS: CHLORHEXIDINE GLUCONATE 15 ML UDC MM SCH ×2 (06:33→17:26)
[2017-04-28] MEDS: POLYVINYL ALCOHOL 15 ML BOTTLE EACHEYE SCH ×4 (06:33→23:04)
--- NOTE | 2017-04-28 06:53 | NUR ---
NO SIGNIFICANT CHANGES OVERNIGHT,REPOSITIONED FOR COMFORT.VSS,AFEBRILE.
[2017-04-28 07:59] VITALS: BP 112/76
[2017-04-28] MEDS: FOLIC ACID 1 MG TABLET GT SCH ×2 (08:55→17:25)
[2017-04-28] MEDS: SENNOSIDES 8.6 MG TABLET GT SCH ×2 (08:55→21:07)
[2017-04-28] MEDS: LEVETIRACETAM SOL (5 ML) 100 MG/ML UDC GT SCH ×2 (08:55→21:07)
[2017-04-28] MEDS: BACLOFEN (10 MG) 10 MG TABLET GT SCH ×3 (08:55→17:25)
[2017-04-28] MEDS: CARBAMAZEPINE 100 MG/5 ML GT SCH ×3 (08:56→17:26)
[2017-04-28] MEDS: HYDROGEN PEROXIDE 480 ML BOTTLE TP SCH ×2 (08:56→21:07)
[2017-04-28] MEDS: HEPARIN SODIUM, PORCINE 5000 UNITS/1 ML VIAL SQ SCH ×2 (08:56→21:08)
[2017-04-28] MEDS: SERTRALINE HCL 25 MG TABLET GT SCH (08:56)
[2017-04-28] MEDS: ZINC OXIDE 30 GM TUBE TP SCH ×2 (08:56→21:07)
[2017-04-28 19:37] VITALS: BP 116/59
[2017-04-28] MEDS: CHOLECALCIFEROL 1,000 UNIT TABLET (VIT D3) GT SCH (21:07)
[2017-04-28] MEDS: POLYETHYLENE GLYCOL 3350 17 GM POWD.PACK GT SCH (21:08)
[2017-04-29] MEDS: ALBUTEROL FS 2.5 MG/3 ML VIAL.NEB NEB SCH ×4 (01:43→19:15)
[2017-04-29] MEDS: POLYVINYL ALCOHOL 15 ML BOTTLE EACHEYE SCH ×3 (05:29→17:34)
[2017-04-29] MEDS: CHLORHEXIDINE GLUCONATE 15 ML UDC MM SCH ×2 (05:29→17:33)
[2017-04-29 08:10] VITALS: BP 134/61
[2017-04-29] MEDS: ZINC OXIDE 30 GM TUBE TP SCH ×2 (09:00→21:47)
[2017-04-29] MEDS: HYDROGEN PEROXIDE 480 ML BOTTLE TP SCH ×2 (09:00→21:47)
[2017-04-29] MEDS: FOLIC ACID 1 MG TABLET GT SCH ×2 (09:38→17:33)
[2017-04-29] MEDS: LEVETIRACETAM SOL (5 ML) 100 MG/ML UDC GT SCH ×2 (09:38→21:46)
[2017-04-29] MEDS: BACLOFEN (10 MG) 10 MG TABLET GT SCH ×3 (09:38→17:34)
[2017-04-29] MEDS: SERTRALINE HCL 25 MG TABLET GT SCH (09:41)
[2017-04-29] MEDS: SENNOSIDES 8.6 MG TABLET GT SCH ×2 (09:41→21:46)
[2017-04-29] MEDS: CARBAMAZEPINE 100 MG/5 ML GT SCH ×3 (09:41→17:33)
[2017-04-29] MEDS: HEPARIN SODIUM, PORCINE 5000 UNITS/1 ML VIAL SQ SCH ×2 (09:42→21:47)
[2017-04-29 20:02] VITALS: BP 102/52
[2017-04-29] MEDS: CHOLECALCIFEROL 1,000 UNIT TABLET (VIT D3) GT SCH (21:46)
[2017-04-29] MEDS: POLYETHYLENE GLYCOL 3350 17 GM POWD.PACK GT SCH (21:47)
[2017-04-30] MEDS: POLYVINYL ALCOHOL 15 ML BOTTLE EACHEYE SCH ×4 (00:14→18:33)
[2017-04-30] MEDS: ALBUTEROL FS 2.5 MG/3 ML VIAL.NEB NEB SCH ×4 (01:36→19:35)
[2017-04-30] MEDS: CHLORHEXIDINE GLUCONATE 15 ML UDC MM SCH ×2 (05:52→18:33)
[2017-04-30 08:00] VITALS: BP 125/59
[2017-04-30] MEDS: CARBAMAZEPINE 100 MG/5 ML GT SCH ×3 (08:56→17:00)
[2017-04-30] MEDS: SERTRALINE HCL 25 MG TABLET GT SCH (08:56)
[2017-04-30] MEDS: BACLOFEN (10 MG) 10 MG TABLET GT SCH ×3 (08:56→17:00)
[2017-04-30] MEDS: SENNOSIDES 8.6 MG TABLET GT SCH ×2 (08:56→21:57)
[2017-04-30] MEDS: LEVETIRACETAM SOL (5 ML) 100 MG/ML UDC GT SCH ×2 (08:56→21:57)
[2017-04-30] MEDS: FOLIC ACID 1 MG TABLET GT SCH ×2 (08:56→17:00)
[2017-04-30] MEDS: HYDROGEN PEROXIDE 480 ML BOTTLE TP SCH ×2 (08:57→21:58)
[2017-04-30] MEDS: ZINC OXIDE 30 GM TUBE TP SCH ×2 (08:57→21:58)
[2017-04-30] MEDS: HEPARIN SODIUM, PORCINE 5000 UNITS/1 ML VIAL SQ SCH ×2 (08:57→21:58)
--- NOTE | 2017-04-30 13:36 | NUR ---
Spoke to resident's mother and reminded her that dentist will be coming on Thursday May 04, 2017 to do the second half of the dental cleaning (will arrive after 8:30AM). Appreciated the information.
[2017-04-30 19:16] VITALS: BP 122/53
[2017-04-30] MEDS: CHOLECALCIFEROL 1,000 UNIT TABLET (VIT D3) GT SCH (21:57)
[2017-04-30] MEDS: POLYETHYLENE GLYCOL 3350 17 GM POWD.PACK GT SCH (21:58)
[2017-05-01] MEDS: ALBUTEROL FS 2.5 MG/3 ML VIAL.NEB NEB SCH ×4 (01:43→20:05)
[2017-05-01] MEDS: CHLORHEXIDINE GLUCONATE 15 ML UDC MM SCH ×2 (06:10→17:58)
[2017-05-01] MEDS: POLYVINYL ALCOHOL 15 ML BOTTLE EACHEYE SCH ×4 (06:10→17:58)
[2017-05-01 07:46] VITALS: BP 119/76
[2017-05-01] MEDS: HYDROGEN PEROXIDE 480 ML BOTTLE TP SCH ×2 (09:00→21:31)
[2017-05-01] MEDS: SERTRALINE HCL 25 MG TABLET GT SCH (09:42)
[2017-05-01] MEDS: LEVETIRACETAM SOL (5 ML) 100 MG/ML UDC GT SCH ×2 (09:42→21:31)
[2017-05-01] MEDS: SENNOSIDES 8.6 MG TABLET GT SCH ×2 (09:42→21:31)
[2017-05-01] MEDS: FOLIC ACID 1 MG TABLET GT SCH ×2 (09:42→17:58)
[2017-05-01] MEDS: HEPARIN SODIUM, PORCINE 5000 UNITS/1 ML VIAL SQ SCH ×2 (09:42→21:31)
[2017-05-01] MEDS: CARBAMAZEPINE 100 MG/5 ML GT SCH ×3 (09:42→17:58)
[2017-05-01] MEDS: BACLOFEN (10 MG) 10 MG TABLET GT SCH ×3 (09:42→17:58)
[2017-05-01] MEDS: ZINC OXIDE 30 GM TUBE TP SCH ×2 (09:43→21:31)
--- NOTE | 2017-05-01 15:00 | NUR ---
IDT meeting held. Family unable to attend. Current orders, new medications, treatment and plan of care reviewed. Resident still awaiting for delivery of Botox. Resident seen by ortho and no surgical intervention indicated- will continue to receive botox.
[2017-05-01 19:50] VITALS: BP 107/59
[2017-05-01] MEDS: POLYETHYLENE GLYCOL 3350 17 GM POWD.PACK GT SCH (21:31)
[2017-05-01] MEDS: CHOLECALCIFEROL 1,000 UNIT TABLET (VIT D3) GT SCH (21:31)
[2017-05-02] MEDS: POLYVINYL ALCOHOL 15 ML BOTTLE EACHEYE SCH ×5 (00:32→23:57)
[2017-05-02] MEDS: ALBUTEROL FS 2.5 MG/3 ML VIAL.NEB NEB SCH ×4 (00:35→19:45)
[2017-05-02] MEDS: CHLORHEXIDINE GLUCONATE 15 ML UDC MM SCH ×2 (05:50→18:04)
[2017-05-02 07:48] VITALS: BP 100/74
[2017-05-02] MEDS: HYDROGEN PEROXIDE 480 ML BOTTLE TP SCH ×2 (09:00→21:56)
[2017-05-02] MEDS: ZINC OXIDE 30 GM TUBE TP SCH ×2 (09:00→21:57)
[2017-05-02] MEDS: CARBAMAZEPINE 100 MG/5 ML GT SCH ×3 (09:00→17:00)
[2017-05-02] MEDS: SERTRALINE HCL 25 MG TABLET GT SCH (09:09)
[2017-05-02] MEDS: FOLIC ACID 1 MG TABLET GT SCH ×2 (09:09→17:00)
[2017-05-02] MEDS: LEVETIRACETAM SOL (5 ML) 100 MG/ML UDC GT SCH ×2 (09:09→21:56)
[2017-05-02] MEDS: SENNOSIDES 8.6 MG TABLET GT SCH ×2 (09:09→21:56)
[2017-05-02] MEDS: BACLOFEN (10 MG) 10 MG TABLET GT SCH ×3 (09:09→17:00)
[2017-05-02] MEDS: HEPARIN SODIUM, PORCINE 5000 UNITS/1 ML VIAL SQ SCH ×2 (09:10→21:56)
--- NOTE | 2017-05-02 12:00 | NUR ---
Seen and examined by , Resident up in the wheelchair with mother by her side. patient stable, still waiting for delivery of Botox injection. NNO given at this time.
[2017-05-02 19:27] VITALS: BP 112/67
[2017-05-02] MEDS: CHOLECALCIFEROL 1,000 UNIT TABLET (VIT D3) GT SCH (21:56)
[2017-05-02] MEDS: POLYETHYLENE GLYCOL 3350 17 GM POWD.PACK GT SCH (21:57)
[2017-05-03] MEDS: ALBUTEROL FS 2.5 MG/3 ML VIAL.NEB NEB SCH ×4 (02:35→18:58)
[2017-05-03] MEDS: CHLORHEXIDINE GLUCONATE 15 ML UDC MM SCH ×2 (06:22→17:05)
[2017-05-03] MEDS: POLYVINYL ALCOHOL 15 ML BOTTLE EACHEYE SCH ×4 (06:22→23:29)
[2017-05-03] MEDS: LEVETIRACETAM SOL (5 ML) 100 MG/ML UDC GT SCH ×2 (09:28→21:11)
[2017-05-03] MEDS: BACLOFEN (10 MG) 10 MG TABLET GT SCH ×3 (09:28→17:05)
[2017-05-03] MEDS: FOLIC ACID 1 MG TABLET GT SCH ×2 (09:28→17:05)
[2017-05-03] MEDS: SENNOSIDES 8.6 MG TABLET GT SCH ×2 (09:29→21:11)
[2017-05-03] MEDS: SERTRALINE HCL 25 MG TABLET GT SCH (09:29)
[2017-05-03] MEDS: CARBAMAZEPINE 100 MG/5 ML GT SCH ×3 (09:29→16:52)
[2017-05-03] MEDS: ZINC OXIDE 30 GM TUBE TP SCH ×2 (09:30→21:14)
[2017-05-03] MEDS: HEPARIN SODIUM, PORCINE 5000 UNITS/1 ML VIAL SQ SCH ×2 (09:30→21:14)
[2017-05-03] MEDS: HYDROGEN PEROXIDE 480 ML BOTTLE TP SCH ×2 (09:30→21:14)
[2017-05-03 10:47] VITALS: BP 128/78
[2017-05-03 19:06] VITALS: BP 106/56
[2017-05-03] MEDS: CHOLECALCIFEROL 1,000 UNIT TABLET (VIT D3) GT SCH (21:11)
[2017-05-03] MEDS: POLYETHYLENE GLYCOL 3350 17 GM POWD.PACK GT SCH (21:14)
[2017-05-04] MEDS: ALBUTEROL FS 2.5 MG/3 ML VIAL.NEB NEB SCH ×4 (01:04→20:23)
[2017-05-04] MEDS: CHLORHEXIDINE GLUCONATE 15 ML UDC MM SCH ×2 (05:09→17:27)
[2017-05-04] MEDS: POLYVINYL ALCOHOL 15 ML BOTTLE EACHEYE SCH ×4 (05:09→23:38)
[2017-05-04 08:09] VITALS: BP 115/71
[2017-05-04] MEDS: HEPARIN SODIUM, PORCINE 5000 UNITS/1 ML VIAL SQ SCH ×2 (08:31→20:07)
[2017-05-04] MEDS: SENNOSIDES 8.6 MG TABLET GT SCH ×2 (08:31→20:05)
[2017-05-04] MEDS: SERTRALINE HCL 25 MG TABLET GT SCH (08:31)
[2017-05-04] MEDS: LEVETIRACETAM SOL (5 ML) 100 MG/ML UDC GT SCH ×2 (08:31→20:05)
[2017-05-04] MEDS: BACLOFEN (10 MG) 10 MG TABLET GT SCH ×3 (08:31→17:26)
[2017-05-04] MEDS: CARBAMAZEPINE 100 MG/5 ML GT SCH ×3 (08:31→17:26)
[2017-05-04] MEDS: ZINC OXIDE 30 GM TUBE TP SCH ×2 (08:31→20:13)
[2017-05-04] MEDS: HYDROGEN PEROXIDE 480 ML BOTTLE TP SCH ×2 (08:31→20:13)
[2017-05-04] MEDS: FOLIC ACID 1 MG TABLET GT SCH ×2 (08:31→17:26)
--- NOTE | 2017-05-04 10:00 | NUR ---
Seen by Dr. Moncho DAUGHERTY for second part of dental cleaning. Mother was present.
--- NOTE | 2017-05-04 13:21 | NUR ---
SEEN AND EXAMINED BY HA BELL WITH NO NEW ORDERS AT THIS TIME.
[2017-05-04 19:50] VITALS: BP 116/65
[2017-05-04] MEDS: CHOLECALCIFEROL 1,000 UNIT TABLET (VIT D3) GT SCH (20:05)
[2017-05-04] MEDS: POLYETHYLENE GLYCOL 3350 17 GM POWD.PACK GT SCH (21:54)
[2017-05-05] MEDS: ALBUTEROL FS 2.5 MG/3 ML VIAL.NEB NEB SCH ×4 (01:51→19:36)
[2017-05-05] MEDS: POLYVINYL ALCOHOL 15 ML BOTTLE EACHEYE SCH ×4 (05:50→23:16)
[2017-05-05] MEDS: CHLORHEXIDINE GLUCONATE 15 ML UDC MM SCH ×2 (05:51→17:25)
[2017-05-05] MEDS: SENNOSIDES 8.6 MG TABLET GT SCH ×2 (08:19→21:25)
[2017-05-05] MEDS: ZINC OXIDE 30 GM TUBE TP SCH ×2 (08:19→21:25)
[2017-05-05] MEDS: SERTRALINE HCL 25 MG TABLET GT SCH (08:19)
[2017-05-05] MEDS: FOLIC ACID 1 MG TABLET GT SCH ×2 (08:19→16:50)
[2017-05-05] MEDS: HEPARIN SODIUM, PORCINE 5000 UNITS/1 ML VIAL SQ SCH ×2 (08:19→21:26)
[2017-05-05] MEDS: LEVETIRACETAM SOL (5 ML) 100 MG/ML UDC GT SCH ×2 (08:19→21:25)
[2017-05-05] MEDS: BACLOFEN (10 MG) 10 MG TABLET GT SCH ×3 (08:19→16:50)
[2017-05-05] MEDS: CARBAMAZEPINE 100 MG/5 ML GT SCH ×3 (08:19→16:50)
[2017-05-05] MEDS: HYDROGEN PEROXIDE 480 ML BOTTLE TP SCH ×2 (08:19→21:25)
[2017-05-05 08:24] VITALS: BP 109/70
--- NOTE | 2017-05-05 16:05 | NUR ---
DANIEL Alexander and JERAMY Shin reported that pt's mother is refusing the zinc oxide and Mepilex treatment for pt's left and right buttock/gluteal fold excoriation. Charge nurse discussed the issue with pt's mother. Pt's mother said she is currently applying powder and gauze on the area. Charge nurse explained the benefits of using the prescribed treatment for the excoriation. Pt's mother said she will try the prescribed treatment tomorrow, but at the same time she also verbalized that she is still thinking about trying the powder and gauze.
[2017-05-05 20:03] VITALS: BP 107/59
[2017-05-05] MEDS: CHOLECALCIFEROL 1,000 UNIT TABLET (VIT D3) GT SCH (21:25)
[2017-05-05] MEDS: POLYETHYLENE GLYCOL 3350 17 GM POWD.PACK GT SCH (21:25)
[2017-05-06] MEDS: ALBUTEROL FS 2.5 MG/3 ML VIAL.NEB NEB SCH ×5 (01:13→19:59)
[2017-05-06] MEDS: CHLORHEXIDINE GLUCONATE 15 ML UDC MM SCH ×2 (05:03→17:36)
[2017-05-06] MEDS: POLYVINYL ALCOHOL 15 ML BOTTLE EACHEYE SCH ×4 (05:03→23:17)
[2017-05-06 08:02] VITALS: BP 135/63
[2017-05-06] MEDS: LEVETIRACETAM SOL (5 ML) 100 MG/ML UDC GT SCH ×2 (08:27→21:17)
[2017-05-06] MEDS: FOLIC ACID 1 MG TABLET GT SCH ×2 (08:27→17:36)
[2017-05-06] MEDS: SENNOSIDES 8.6 MG TABLET GT SCH ×2 (08:27→21:17)
[2017-05-06] MEDS: BACLOFEN (10 MG) 10 MG TABLET GT SCH ×3 (08:27→17:36)
[2017-05-06] MEDS: SERTRALINE HCL 25 MG TABLET GT SCH (08:28)
[2017-05-06] MEDS: CARBAMAZEPINE 100 MG/5 ML GT SCH ×3 (08:28→17:36)
[2017-05-06] MEDS: ZINC OXIDE 30 GM TUBE TP SCH ×2 (08:28→21:17)
[2017-05-06] MEDS: HYDROGEN PEROXIDE 480 ML BOTTLE TP SCH ×2 (08:28→21:17)
[2017-05-06] MEDS: HEPARIN SODIUM, PORCINE 5000 UNITS/1 ML VIAL SQ SCH ×2 (08:28→21:17)
--- NOTE | 2017-05-06 15:20 | NUR ---
SEEN AND EXAMINED BY HA BELL WITH NO NEW ORDERS AT THIS TIME.
[2017-05-06 19:32] VITALS: BP 106/65
[2017-05-06] MEDS: CHOLECALCIFEROL 1,000 UNIT TABLET (VIT D3) GT SCH (21:17)
[2017-05-06] MEDS: POLYETHYLENE GLYCOL 3350 17 GM POWD.PACK GT SCH (21:17)
[2017-05-07] MEDS: ALBUTEROL FS 2.5 MG/3 ML VIAL.NEB NEB SCH ×4 (01:26→19:02)
[2017-05-07] MEDS: CHLORHEXIDINE GLUCONATE 15 ML UDC MM SCH ×2 (05:30→17:03)
[2017-05-07] MEDS: POLYVINYL ALCOHOL 15 ML BOTTLE EACHEYE SCH ×3 (05:30→17:03)
[2017-05-07 07:40] VITALS: BP 112/75
[2017-05-07] MEDS: FOLIC ACID 1 MG TABLET GT SCH ×2 (09:16→17:02)
[2017-05-07] MEDS: BACLOFEN (10 MG) 10 MG TABLET GT SCH ×3 (09:16→17:02)
[2017-05-07] MEDS: SERTRALINE HCL 25 MG TABLET GT SCH (09:16)
[2017-05-07] MEDS: SENNOSIDES 8.6 MG TABLET GT SCH ×2 (09:16→20:47)
[2017-05-07] MEDS: LEVETIRACETAM SOL (5 ML) 100 MG/ML UDC GT SCH ×2 (09:16→20:47)
[2017-05-07] MEDS: CARBAMAZEPINE 100 MG/5 ML GT SCH ×3 (09:16→17:02)
[2017-05-07] MEDS: HYDROGEN PEROXIDE 480 ML BOTTLE TP SCH ×2 (09:26→20:47)
[2017-05-07] MEDS: HEPARIN SODIUM, PORCINE 5000 UNITS/1 ML VIAL SQ SCH ×2 (09:26→20:47)
[2017-05-07] MEDS: ZINC OXIDE 30 GM TUBE TP SCH ×2 (09:26→20:47)
[2017-05-07 20:20] VITALS: BP 99/57
[2017-05-07] MEDS: CHOLECALCIFEROL 1,000 UNIT TABLET (VIT D3) GT SCH (20:47)
[2017-05-07] MEDS: POLYETHYLENE GLYCOL 3350 17 GM POWD.PACK GT SCH (21:37)
[2017-05-08] MEDS: POLYVINYL ALCOHOL 15 ML BOTTLE EACHEYE SCH ×4 (00:19→23:12)
[2017-05-08] MEDS: ALBUTEROL FS 2.5 MG/3 ML VIAL.NEB NEB SCH ×3 (01:08→20:25)
[2017-05-08 08:00] VITALS: BP 112/69
[2017-05-08] MEDS: BACLOFEN (10 MG) 10 MG TABLET GT SCH ×3 (09:00→17:00)
[2017-05-08] MEDS: CARBAMAZEPINE 100 MG/5 ML GT SCH ×3 (09:00→17:00)
[2017-05-08] MEDS: HEPARIN SODIUM, PORCINE 5000 UNITS/1 ML VIAL SQ SCH ×2 (09:00→20:35)
[2017-05-08] MEDS: FOLIC ACID 1 MG TABLET GT SCH ×2 (09:00→17:00)
[2017-05-08] MEDS: SENNOSIDES 8.6 MG TABLET GT SCH ×2 (09:00→20:35)
[2017-05-08] MEDS: LEVETIRACETAM SOL (5 ML) 100 MG/ML UDC GT SCH ×2 (09:00→20:35)
[2017-05-08] MEDS: HYDROGEN PEROXIDE 480 ML BOTTLE TP SCH ×2 (09:00→20:35)
[2017-05-08] MEDS: ZINC OXIDE 30 GM TUBE TP SCH ×2 (09:00→20:35)
[2017-05-08] MEDS: SERTRALINE HCL 25 MG TABLET GT SCH (09:00)
[2017-05-08] MEDS: CHLORHEXIDINE GLUCONATE 15 ML UDC MM SCH (18:52)
[2017-05-08] MEDS: CHOLECALCIFEROL 1,000 UNIT TABLET (VIT D3) GT SCH (20:35)
[2017-05-08] MEDS: POLYETHYLENE GLYCOL 3350 17 GM POWD.PACK GT SCH (21:23)
[2017-05-08 22:06] VITALS: BP 107/59
[2017-05-09] MEDS: ALBUTEROL FS 2.5 MG/3 ML VIAL.NEB NEB SCH ×4 (01:39→19:40)
[2017-05-09] MEDS: POLYVINYL ALCOHOL 15 ML BOTTLE EACHEYE SCH ×3 (05:14→17:11)
[2017-05-09] MEDS: CHLORHEXIDINE GLUCONATE 15 ML UDC MM SCH ×2 (05:14→17:12)
[2017-05-09 08:01] VITALS: BP 125/58
[2017-05-09] MEDS: HYDROGEN PEROXIDE 480 ML BOTTLE TP SCH ×2 (09:00→21:02)
[2017-05-09] MEDS: ZINC OXIDE 30 GM TUBE TP SCH ×2 (09:00→21:02)
[2017-05-09] MEDS: FOLIC ACID 1 MG TABLET GT SCH ×2 (09:07→17:11)
[2017-05-09] MEDS: SERTRALINE HCL 25 MG TABLET GT SCH (09:07)
[2017-05-09] MEDS: BACLOFEN (10 MG) 10 MG TABLET GT SCH ×3 (09:07→17:11)
[2017-05-09] MEDS: LEVETIRACETAM SOL (5 ML) 100 MG/ML UDC GT SCH ×2 (09:07→21:01)
[2017-05-09] MEDS: SENNOSIDES 8.6 MG TABLET GT SCH ×2 (09:07→21:01)
[2017-05-09] MEDS: CARBAMAZEPINE 100 MG/5 ML GT SCH ×3 (09:07→17:11)
[2017-05-09] MEDS: HEPARIN SODIUM, PORCINE 5000 UNITS/1 ML VIAL SQ SCH ×2 (09:08→21:02)
[2017-05-09 20:14] VITALS: BP 109/59
[2017-05-09] MEDS: CHOLECALCIFEROL 1,000 UNIT TABLET (VIT D3) GT SCH (21:01)
[2017-05-09] MEDS: POLYETHYLENE GLYCOL 3350 17 GM POWD.PACK GT SCH (21:02)
[2017-05-10] MEDS: POLYVINYL ALCOHOL 15 ML BOTTLE EACHEYE SCH ×5 (00:05→23:43)
[2017-05-10] MEDS: ALBUTEROL FS 2.5 MG/3 ML VIAL.NEB NEB SCH ×4 (01:07→20:18)
[2017-05-10] MEDS: CHLORHEXIDINE GLUCONATE 15 ML UDC MM SCH ×2 (05:28→18:18)
[2017-05-10] MEDS: BACLOFEN (10 MG) 10 MG TABLET GT SCH ×3 (09:00→17:23)
[2017-05-10] MEDS: HYDROGEN PEROXIDE 480 ML BOTTLE TP SCH ×2 (09:00→21:38)
[2017-05-10] MEDS: FOLIC ACID 1 MG TABLET GT SCH ×2 (09:00→17:23)
[2017-05-10] MEDS: SERTRALINE HCL 25 MG TABLET GT SCH (09:00)
[2017-05-10] MEDS: LEVETIRACETAM SOL (5 ML) 100 MG/ML UDC GT SCH ×2 (09:00→21:37)
[2017-05-10] MEDS: SENNOSIDES 8.6 MG TABLET GT SCH ×2 (09:00→21:37)
[2017-05-10] MEDS: HEPARIN SODIUM, PORCINE 5000 UNITS/1 ML VIAL SQ SCH ×2 (09:00→21:38)
[2017-05-10] MEDS: ZINC OXIDE 30 GM TUBE TP SCH ×2 (09:00→21:38)
[2017-05-10] MEDS: CARBAMAZEPINE 100 MG/5 ML GT SCH ×3 (09:00→17:23)
[2017-05-10 14:12] VITALS: BP 115/66
[2017-05-10 19:45] VITALS: BP 111/73
[2017-05-10] MEDS: CHOLECALCIFEROL 1,000 UNIT TABLET (VIT D3) GT SCH (21:37)
[2017-05-10] MEDS: POLYETHYLENE GLYCOL 3350 17 GM POWD.PACK GT SCH (21:38)
[2017-05-11] MEDS: ALBUTEROL FS 2.5 MG/3 ML VIAL.NEB NEB SCH ×4 (01:30→20:17)
[2017-05-11] MEDS: CHLORHEXIDINE GLUCONATE 15 ML UDC MM SCH ×2 (06:10→17:30)
[2017-05-11] MEDS: POLYVINYL ALCOHOL 15 ML BOTTLE EACHEYE SCH ×3 (06:10→17:30)
[2017-05-11] MEDS: FOLIC ACID 1 MG TABLET GT SCH ×2 (08:17→17:30)
[2017-05-11] MEDS: CARBAMAZEPINE 100 MG/5 ML GT SCH ×3 (08:17→17:30)
[2017-05-11] MEDS: BACLOFEN (10 MG) 10 MG TABLET GT SCH ×3 (08:17→17:30)
[2017-05-11] MEDS: SENNOSIDES 8.6 MG TABLET GT SCH ×2 (08:17→21:26)
[2017-05-11] MEDS: SERTRALINE HCL 25 MG TABLET GT SCH (08:17)
[2017-05-11] MEDS: LEVETIRACETAM SOL (5 ML) 100 MG/ML UDC GT SCH ×2 (08:17→21:25)
[2017-05-11] MEDS: ZINC OXIDE 30 GM TUBE TP SCH ×2 (08:18→21:26)
[2017-05-11] MEDS: HEPARIN SODIUM, PORCINE 5000 UNITS/1 ML VIAL SQ SCH ×2 (08:18→21:26)
[2017-05-11] MEDS: HYDROGEN PEROXIDE 480 ML BOTTLE TP SCH ×2 (08:18→21:26)
[2017-05-11 08:21] VITALS: BP 103/64
--- NOTE | 2017-05-11 11:52 | NUR ---
Notified Dr. Marlon Polanco that Botox is now available. He said he will administer it on 05/14/17.
[2017-05-11 19:56] VITALS: BP 103/66
[2017-05-11] MEDS: CHOLECALCIFEROL 1,000 UNIT TABLET (VIT D3) GT SCH (21:26)
[2017-05-11] MEDS: POLYETHYLENE GLYCOL 3350 17 GM POWD.PACK GT SCH (21:26)
[2017-05-12] MEDS: POLYVINYL ALCOHOL 15 ML BOTTLE EACHEYE SCH ×4 (00:23→17:46)
[2017-05-12] MEDS: ALBUTEROL FS 2.5 MG/3 ML VIAL.NEB NEB SCH ×4 (01:51→19:10)
[2017-05-12] MEDS: CHLORHEXIDINE GLUCONATE 15 ML UDC MM SCH ×2 (05:56→17:46)
[2017-05-12 08:14] VITALS: BP 135/64
[2017-05-12] MEDS: BACLOFEN (10 MG) 10 MG TABLET GT SCH ×3 (08:59→16:21)
[2017-05-12] MEDS: FOLIC ACID 1 MG TABLET GT SCH ×2 (08:59→16:21)
[2017-05-12] MEDS: SENNOSIDES 8.6 MG TABLET GT SCH ×2 (08:59→21:39)
[2017-05-12] MEDS: SERTRALINE HCL 25 MG TABLET GT SCH (08:59)
[2017-05-12] MEDS: LEVETIRACETAM SOL (5 ML) 100 MG/ML UDC GT SCH ×2 (08:59→21:39)
[2017-05-12] MEDS: CARBAMAZEPINE 100 MG/5 ML GT SCH ×3 (08:59→16:21)
[2017-05-12] MEDS: ZINC OXIDE 30 GM TUBE TP SCH (09:00)
[2017-05-12] MEDS: HEPARIN SODIUM, PORCINE 5000 UNITS/1 ML VIAL SQ SCH ×2 (09:00→21:39)
[2017-05-12] MEDS: HYDROGEN PEROXIDE 480 ML BOTTLE TP SCH ×2 (09:00→21:39)
--- NOTE | 2017-05-12 11:44 | NUR ---
Redness and excoriation noted on the buttocks. Received order to apply zinc oxide cream and cover with Mepilex foam dressing q shift and PRN for 14 days. Also received order for wound consult. Addendum: 05/12/17 at 1150 by JAIDEN GARCIA RN Notified pt's father.
[2017-05-12] MEDS ORDERED: ZINC OXIDE 30 GM TUBE TP PRN (12:00)
--- NOTE | 2017-05-12 12:11 | NUR ---
Seen by Dr. Aguilar. He is aware of pt's redness and excoriation on the buttocks. He looked at the picture. Pt was eating lunch when he came.
[2017-05-12 20:00] VITALS: BP 121/70
[2017-05-12] MEDS ORDERED: ZINC OXIDE 30 GM TUBE TP SCH (21:00)
[2017-05-12] MEDS: CHOLECALCIFEROL 1,000 UNIT TABLET (VIT D3) GT SCH (21:39)
[2017-05-12] MEDS: POLYETHYLENE GLYCOL 3350 17 GM POWD.PACK GT SCH (21:39)
[2017-05-13] MEDS: POLYVINYL ALCOHOL 15 ML BOTTLE EACHEYE SCH ×4 (00:08→18:23)
[2017-05-13] MEDS: ALBUTEROL FS 2.5 MG/3 ML VIAL.NEB NEB SCH ×4 (01:27→20:19)
[2017-05-13] MEDS: CHLORHEXIDINE GLUCONATE 15 ML UDC MM SCH ×2 (05:29→18:23)
[2017-05-13 07:50] VITALS: BP 126/67
[2017-05-13] MEDS: LEVETIRACETAM SOL (5 ML) 100 MG/ML UDC GT SCH ×2 (08:17→21:01)
[2017-05-13] MEDS: FOLIC ACID 1 MG TABLET GT SCH ×2 (08:17→17:00)
[2017-05-13] MEDS: SENNOSIDES 8.6 MG TABLET GT SCH ×2 (08:18→21:01)
[2017-05-13] MEDS: BACLOFEN (10 MG) 10 MG TABLET GT SCH ×3 (08:18→17:00)
[2017-05-13] MEDS: CARBAMAZEPINE 100 MG/5 ML GT SCH ×3 (08:19→17:00)
[2017-05-13] MEDS: SERTRALINE HCL 25 MG TABLET GT SCH (08:19)
[2017-05-13] MEDS: HEPARIN SODIUM, PORCINE 5000 UNITS/1 ML VIAL SQ SCH ×2 (08:22→21:01)
[2017-05-13] MEDS: HYDROGEN PEROXIDE 480 ML BOTTLE TP SCH ×2 (09:00→21:01)
[2017-05-13] MEDS: CHOLECALCIFEROL 1,000 UNIT TABLET (VIT D3) GT SCH (21:01)
[2017-05-13] MEDS: POLYETHYLENE GLYCOL 3350 17 GM POWD.PACK GT SCH (21:01)
[2017-05-13 21:20] VITALS: BP 120/61
[2017-05-14] MEDS: POLYVINYL ALCOHOL 15 ML BOTTLE EACHEYE SCH ×5 (00:25→23:46)
[2017-05-14] MEDS: ALBUTEROL FS 2.5 MG/3 ML VIAL.NEB NEB SCH ×4 (00:51→19:50)
[2017-05-14] MEDS: CHLORHEXIDINE GLUCONATE 15 ML UDC MM SCH ×2 (05:28→17:06)
--- NOTE | 2017-05-14 06:52 | NUR ---
CONSENT GIVEN BY FATHER MARIE SIMON FOR BOTOX INJECTION TODAY,WITNESSED BY RICHARD JIMENES LVN.
[2017-05-14 07:49] VITALS: BP 123/78
--- NOTE | 2017-05-14 09:05 | NUR ---
Pt seen by wound nurse Vicky. Received order to apply Lotrimin, Z-guard, and Mepilex on the buttocks/gluteal crease redness and excoriation with rash.
[2017-05-14] MEDS: FOLIC ACID 1 MG TABLET GT SCH ×2 (09:38→17:06)
[2017-05-14] MEDS: LEVETIRACETAM SOL (5 ML) 100 MG/ML UDC GT SCH ×2 (09:38→21:13)
[2017-05-14] MEDS: BACLOFEN (10 MG) 10 MG TABLET GT SCH ×3 (09:39→17:06)
[2017-05-14] MEDS: CARBAMAZEPINE 100 MG/5 ML GT SCH ×3 (09:39→17:06)
[2017-05-14] MEDS: SERTRALINE HCL 25 MG TABLET GT SCH (09:39)
[2017-05-14] MEDS: SENNOSIDES 8.6 MG TABLET GT SCH ×2 (09:39→21:13)
[2017-05-14] MEDS: HEPARIN SODIUM, PORCINE 5000 UNITS/1 ML VIAL SQ SCH ×2 (09:40→21:13)
[2017-05-14] MEDS: HYDROGEN PEROXIDE 480 ML BOTTLE TP SCH ×2 (09:40→21:14)
[2017-05-14] MEDS: Z GUARD REMEDY 4 OZ OINT TP SCH ×2 (10:30→21:14)
[2017-05-14] MEDS: CLOTRIMAZOLE 1% 15 GM TUBE TP SCH ×2 (10:30→21:14)
[2017-05-14] MEDS ORDERED: Z GUARD REMEDY 4 OZ OINT TP PRN (14:00)
[2017-05-14] MEDS ORDERED: CLOTRIMAZOLE 1% 15 GM TUBE TP PRN (14:00)
--- NOTE | 2017-05-14 17:29 | NUR ---
Pt was seen by Dr. Marlon Polanco. He administered Botox on pt's bilateral upper and lower extremities.
[2017-05-14 19:41] VITALS: BP 131/80
[2017-05-14] MEDS: CHOLECALCIFEROL 1,000 UNIT TABLET (VIT D3) GT SCH (21:13)
[2017-05-14] MEDS: POLYETHYLENE GLYCOL 3350 17 GM POWD.PACK GT SCH (21:24)
[2017-05-15] MEDS: ALBUTEROL FS 2.5 MG/3 ML VIAL.NEB NEB SCH ×4 (01:59→20:26)
[2017-05-15] MEDS: CHLORHEXIDINE GLUCONATE 15 ML UDC MM SCH ×2 (05:35→18:10)
[2017-05-15] MEDS: POLYVINYL ALCOHOL 15 ML BOTTLE EACHEYE SCH ×3 (05:35→18:10)
[2017-05-15 07:39] VITALS: BP 101/64
--- NOTE | 2017-05-15 08:17 | NUR ---
WOUND CARE CONSULT: (LATE ENTRY) PT SEEN FOR GLUTEAL CREASE AND BUTTOCKS RASH WITH EXCORIATION ON 05/14/17 AT 0900. PT IS INCONTINENT. RECOMMENDATIONS MADE AND DISCUSSED WITH NURSING STAFF FOR LOTRIMIN, Z GUARD, COVER WITH MEPILEX. ALL SKIN PROTECTION MEASURES IN PLACE. WILL SEE PRN. IN AGREEMENT WITH PLAN OF CARE.
[2017-05-15] MEDS: SENNOSIDES 8.6 MG TABLET GT SCH ×2 (09:38→21:36)
[2017-05-15] MEDS: BACLOFEN (10 MG) 10 MG TABLET GT SCH ×3 (09:38→17:00)
[2017-05-15] MEDS: FOLIC ACID 1 MG TABLET GT SCH ×2 (09:38→17:00)
[2017-05-15] MEDS: CARBAMAZEPINE 100 MG/5 ML GT SCH ×3 (09:38→17:00)
[2017-05-15] MEDS: LEVETIRACETAM SOL (5 ML) 100 MG/ML UDC GT SCH ×2 (09:38→21:36)
[2017-05-15] MEDS: SERTRALINE HCL 25 MG TABLET GT SCH (09:39)
[2017-05-15] MEDS: HYDROGEN PEROXIDE 480 ML BOTTLE TP SCH ×2 (09:39→21:36)
[2017-05-15] MEDS: HEPARIN SODIUM, PORCINE 5000 UNITS/1 ML VIAL SQ SCH ×2 (09:39→21:36)
[2017-05-15] MEDS: CLOTRIMAZOLE 1% 15 GM TUBE TP SCH ×2 (09:41→21:36)
[2017-05-15] MEDS: Z GUARD REMEDY 4 OZ OINT TP SCH ×2 (09:41→21:36)
[2017-05-15 19:45] VITALS: BP 128/70
[2017-05-15] MEDS: CHOLECALCIFEROL 1,000 UNIT TABLET (VIT D3) GT SCH (21:36)
[2017-05-15] MEDS: POLYETHYLENE GLYCOL 3350 17 GM POWD.PACK GT SCH (21:36)
[2017-05-16] MEDS: POLYVINYL ALCOHOL 15 ML BOTTLE EACHEYE SCH ×4 (00:28→18:00)
[2017-05-16] MEDS: ALBUTEROL FS 2.5 MG/3 ML VIAL.NEB NEB SCH ×4 (02:12→20:26)
[2017-05-16] MEDS: CHLORHEXIDINE GLUCONATE 15 ML UDC MM SCH ×2 (05:25→18:00)
[2017-05-16 07:36] VITALS: BP 133/93
[2017-05-16] MEDS: CARBAMAZEPINE 100 MG/5 ML GT SCH ×3 (09:36→17:00)
[2017-05-16] MEDS: FOLIC ACID 1 MG TABLET GT SCH ×2 (09:36→17:00)
[2017-05-16] MEDS: SENNOSIDES 8.6 MG TABLET GT SCH ×2 (09:36→21:43)
[2017-05-16] MEDS: LEVETIRACETAM SOL (5 ML) 100 MG/ML UDC GT SCH ×2 (09:36→21:43)
[2017-05-16] MEDS: BACLOFEN (10 MG) 10 MG TABLET GT SCH ×3 (09:36→17:00)
[2017-05-16] MEDS: SERTRALINE HCL 25 MG TABLET GT SCH (09:37)
[2017-05-16] MEDS: HEPARIN SODIUM, PORCINE 5000 UNITS/1 ML VIAL SQ SCH ×2 (09:37→21:45)
[2017-05-16] MEDS: HYDROGEN PEROXIDE 480 ML BOTTLE TP SCH ×2 (09:38→21:46)
[2017-05-16] MEDS: CLOTRIMAZOLE 1% 15 GM TUBE TP SCH ×2 (09:38→21:46)
[2017-05-16] MEDS: Z GUARD REMEDY 4 OZ OINT TP SCH ×2 (09:38→21:46)
[2017-05-16 19:35] VITALS: BP 100/67
[2017-05-16] MEDS: CHOLECALCIFEROL 1,000 UNIT TABLET (VIT D3) GT SCH (21:43)
[2017-05-16] MEDS: POLYETHYLENE GLYCOL 3350 17 GM POWD.PACK GT SCH (21:46)
[2017-05-17] MEDS: POLYVINYL ALCOHOL 15 ML BOTTLE EACHEYE SCH ×5 (00:25→23:27)
[2017-05-17] MEDS: ALBUTEROL FS 2.5 MG/3 ML VIAL.NEB NEB SCH ×4 (01:14→19:42)
[2017-05-17] MEDS: CHLORHEXIDINE GLUCONATE 15 ML UDC MM SCH ×2 (05:08→18:00)
[2017-05-17 07:30] VITALS: BP 154/81
[2017-05-17 07:55] LABS: BASOPHILS % (AUTO) 0.7 % (0.0-2.0); EOSINOPHILS # (AUTO) 0.2 /CMM (0.0-0.7); HEMATOCRIT 42 % (33-45); HEMOGLOBIN 14.1 g/dL (11.5-14.8); LYMPHOCYTES # (AUTO) 1.8 /CMM (0.8-4.8); LYMPHOCYTES % (AUTO) 40.3 % (20.0-44.0); MEAN CORPUSCULAR HEMOGLOBIN 32 PG (26.0-33.0); MEAN CORPUSCULAR HGB CONC 34 g/dl (31.0-36.0); MEAN CORPUSCULAR VOLUME 94 fL (82-100); MONOCYTES # (AUTO) 0.3 /CMM (0.1-1.30); MONOCYTES % (AUTO) 6.7 % (2.0-12.0); NEUTROPHILS # (AUTO) 2.1 /CMM (1.8-8.9); NEUTROPHILS % (AUTO) 47.3 % (43.0-81.0); PLATELET COUNT (AUTO) 287 /CMM (150-450); RDW COEFFICIENT OF VARIATION 13.5 (11.5-15.0); RED BLOOD CELL COUNT(AUTO) 4.42 MIL/uL (4.0-5.2); WHITE BLOOD COUNT (AUTO) 4.5 K/uL (4.3-11.0)
[2017-05-17] MEDS: FOLIC ACID 1 MG TABLET GT SCH ×2 (09:50→16:52)
[2017-05-17] MEDS: SENNOSIDES 8.6 MG TABLET GT SCH ×2 (09:50→20:20)
[2017-05-17] MEDS: LEVETIRACETAM SOL (5 ML) 100 MG/ML UDC GT SCH ×2 (09:50→20:20)
[2017-05-17] MEDS: BACLOFEN (10 MG) 10 MG TABLET GT SCH ×3 (09:50→16:52)
[2017-05-17] MEDS: Z GUARD REMEDY 4 OZ OINT TP SCH ×2 (09:51→20:20)
[2017-05-17] MEDS: CARBAMAZEPINE 100 MG/5 ML GT SCH ×3 (09:51→16:52)
[2017-05-17] MEDS: HEPARIN SODIUM, PORCINE 5000 UNITS/1 ML VIAL SQ SCH ×2 (09:51→20:20)
[2017-05-17] MEDS: CLOTRIMAZOLE 1% 15 GM TUBE TP SCH ×2 (09:51→20:20)
[2017-05-17] MEDS: HYDROGEN PEROXIDE 480 ML BOTTLE TP SCH ×2 (09:51→20:20)
[2017-05-17] MEDS: SERTRALINE HCL 25 MG TABLET GT SCH (09:51)
[2017-05-17 19:26] VITALS: BP 112/65
[2017-05-17] MEDS: CHOLECALCIFEROL 1,000 UNIT TABLET (VIT D3) GT SCH (20:20)
[2017-05-17] MEDS: POLYETHYLENE GLYCOL 3350 17 GM POWD.PACK GT SCH (21:18)
[2017-05-18] MEDS: ALBUTEROL FS 2.5 MG/3 ML VIAL.NEB NEB SCH ×4 (02:00→19:24)
[2017-05-18] MEDS: POLYVINYL ALCOHOL 15 ML BOTTLE EACHEYE SCH ×4 (05:21→23:48)
[2017-05-18] MEDS: CHLORHEXIDINE GLUCONATE 15 ML UDC MM SCH ×2 (05:21→17:33)
--- NOTE | 2017-05-18 07:29 | NUR ---
RT MOTHER OF PATIENT DID NOT WANT HHN TX GIVEN AT THIS TIME. NO SOB NOTED. CLEAR B/S
[2017-05-18 07:56] VITALS: BP 126/73
[2017-05-18] MEDS: FOLIC ACID 1 MG TABLET GT SCH ×2 (08:58→17:33)
[2017-05-18] MEDS: SENNOSIDES 8.6 MG TABLET GT SCH ×2 (08:58→20:09)
[2017-05-18] MEDS: SERTRALINE HCL 25 MG TABLET GT SCH (08:58)
[2017-05-18] MEDS: BACLOFEN (10 MG) 10 MG TABLET GT SCH ×3 (08:58→17:33)
[2017-05-18] MEDS: CARBAMAZEPINE 100 MG/5 ML GT SCH ×3 (08:58→17:33)
[2017-05-18] MEDS: LEVETIRACETAM SOL (5 ML) 100 MG/ML UDC GT SCH ×2 (08:58→20:09)
[2017-05-18] MEDS: HEPARIN SODIUM, PORCINE 5000 UNITS/1 ML VIAL SQ SCH ×2 (08:59→20:09)
[2017-05-18] MEDS: HYDROGEN PEROXIDE 480 ML BOTTLE TP SCH ×2 (09:00→20:10)
[2017-05-18] MEDS: Z GUARD REMEDY 4 OZ OINT TP SCH ×2 (09:00→20:10)
[2017-05-18] MEDS: CLOTRIMAZOLE 1% 15 GM TUBE TP SCH ×2 (09:00→20:10)
[2017-05-18] MEDS: NYSTATIN TOP POWDER 15 GM BOTTLE TP SCH (17:33)
[2017-05-18 19:51] VITALS: BP 114/72
[2017-05-18] MEDS: CHOLECALCIFEROL 1,000 UNIT TABLET (VIT D3) GT SCH (20:09)
[2017-05-18] MEDS: POLYETHYLENE GLYCOL 3350 17 GM POWD.PACK GT SCH (21:32)
[2017-05-19] MEDS: ALBUTEROL FS 2.5 MG/3 ML VIAL.NEB NEB SCH ×4 (01:41→19:30)
[2017-05-19] MEDS: CHLORHEXIDINE GLUCONATE 15 ML UDC MM SCH ×2 (05:06→17:44)
[2017-05-19] MEDS: POLYVINYL ALCOHOL 15 ML BOTTLE EACHEYE SCH ×3 (05:06→17:44)
[2017-05-19 08:28] VITALS: BP 122/69
[2017-05-19] MEDS: CARBAMAZEPINE 100 MG/5 ML GT SCH ×3 (08:59→17:44)
[2017-05-19] MEDS: LEVETIRACETAM SOL (5 ML) 100 MG/ML UDC GT SCH ×2 (08:59→20:09)
[2017-05-19] MEDS: SENNOSIDES 8.6 MG TABLET GT SCH ×2 (08:59→20:09)
[2017-05-19] MEDS: SERTRALINE HCL 25 MG TABLET GT SCH (08:59)
[2017-05-19] MEDS: BACLOFEN (10 MG) 10 MG TABLET GT SCH ×3 (08:59→17:44)
[2017-05-19] MEDS: FOLIC ACID 1 MG TABLET GT SCH ×2 (08:59→17:44)
[2017-05-19] MEDS: NYSTATIN TOP POWDER 15 GM BOTTLE TP SCH ×2 (09:00→17:44)
[2017-05-19] MEDS: HYDROGEN PEROXIDE 480 ML BOTTLE TP SCH ×2 (09:00→20:10)
[2017-05-19] MEDS: Z GUARD REMEDY 4 OZ OINT TP SCH ×2 (09:00→20:10)
[2017-05-19] MEDS: HEPARIN SODIUM, PORCINE 5000 UNITS/1 ML VIAL SQ SCH ×2 (09:00→20:10)
[2017-05-19] MEDS: CLOTRIMAZOLE 1% 15 GM TUBE TP SCH ×2 (09:00→20:10)
[2017-05-19 19:29] VITALS: BP 106/58
[2017-05-19] MEDS: CHOLECALCIFEROL 1,000 UNIT TABLET (VIT D3) GT SCH (20:09)
[2017-05-19] MEDS: POLYETHYLENE GLYCOL 3350 17 GM POWD.PACK GT SCH (21:32)
[2017-05-20] MEDS: POLYVINYL ALCOHOL 15 ML BOTTLE EACHEYE SCH ×5 (00:36→23:22)
[2017-05-20] MEDS: ALBUTEROL FS 2.5 MG/3 ML VIAL.NEB NEB SCH ×4 (01:48→20:02)
[2017-05-20] MEDS: CHLORHEXIDINE GLUCONATE 15 ML UDC MM SCH ×2 (05:02→17:29)
[2017-05-20 08:16] VITALS: BP 121/71
[2017-05-20] MEDS: CARBAMAZEPINE 100 MG/5 ML GT SCH ×3 (08:22→17:28)
[2017-05-20] MEDS: BACLOFEN (10 MG) 10 MG TABLET GT SCH ×3 (08:22→17:28)
[2017-05-20] MEDS: SERTRALINE HCL 25 MG TABLET GT SCH (08:22)
[2017-05-20] MEDS: LEVETIRACETAM SOL (5 ML) 100 MG/ML UDC GT SCH ×2 (08:22→20:12)
[2017-05-20] MEDS: FOLIC ACID 1 MG TABLET GT SCH ×2 (08:22→17:28)
[2017-05-20] MEDS: SENNOSIDES 8.6 MG TABLET GT SCH ×2 (08:22→20:12)
[2017-05-20] MEDS: HEPARIN SODIUM, PORCINE 5000 UNITS/1 ML VIAL SQ SCH ×2 (08:24→20:13)
[2017-05-20] MEDS: CLOTRIMAZOLE 1% 15 GM TUBE TP SCH ×2 (09:00→20:13)
[2017-05-20] MEDS: Z GUARD REMEDY 4 OZ OINT TP SCH ×2 (09:00→20:13)
[2017-05-20] MEDS: HYDROGEN PEROXIDE 480 ML BOTTLE TP SCH ×2 (09:00→20:13)
[2017-05-20] MEDS: NYSTATIN TOP POWDER 15 GM BOTTLE TP SCH ×2 (09:00→17:29)
[2017-05-20 20:05] VITALS: BP 160/74
[2017-05-20] MEDS: CHOLECALCIFEROL 1,000 UNIT TABLET (VIT D3) GT SCH (20:12)
[2017-05-20] MEDS: POLYETHYLENE GLYCOL 3350 17 GM POWD.PACK GT SCH (21:30)
[2017-05-21] MEDS: ALBUTEROL FS 2.5 MG/3 ML VIAL.NEB NEB SCH ×4 (02:08→19:18)
[2017-05-21] MEDS: POLYVINYL ALCOHOL 15 ML BOTTLE EACHEYE SCH ×3 (05:32→17:14)
[2017-05-21] MEDS: CHLORHEXIDINE GLUCONATE 15 ML UDC MM SCH ×2 (05:32→17:14)
[2017-05-21 07:24] VITALS: BP 155/76
[2017-05-21] MEDS: CARBAMAZEPINE 100 MG/5 ML GT SCH ×3 (08:26→17:14)
[2017-05-21] MEDS: FOLIC ACID 1 MG TABLET GT SCH ×2 (08:26→17:14)
[2017-05-21] MEDS: SERTRALINE HCL 25 MG TABLET GT SCH (08:26)
[2017-05-21] MEDS: HEPARIN SODIUM, PORCINE 5000 UNITS/1 ML VIAL SQ SCH ×2 (08:26→21:56)
[2017-05-21] MEDS: LEVETIRACETAM SOL (5 ML) 100 MG/ML UDC GT SCH ×2 (08:26→21:56)
[2017-05-21] MEDS: SENNOSIDES 8.6 MG TABLET GT SCH ×2 (08:26→21:56)
[2017-05-21] MEDS: BACLOFEN (10 MG) 10 MG TABLET GT SCH ×3 (08:26→17:14)
[2017-05-21] MEDS: HYDROGEN PEROXIDE 480 ML BOTTLE TP SCH ×2 (08:27→21:56)
[2017-05-21] MEDS: CLOTRIMAZOLE 1% 15 GM TUBE TP SCH ×2 (08:27→21:56)
[2017-05-21] MEDS: Z GUARD REMEDY 4 OZ OINT TP SCH ×2 (08:27→21:57)
[2017-05-21] MEDS: NYSTATIN TOP POWDER 15 GM BOTTLE TP SCH ×2 (08:27→17:14)
[2017-05-21] MEDS: CHOLECALCIFEROL 1,000 UNIT TABLET (VIT D3) GT SCH (21:56)
[2017-05-21] MEDS: POLYETHYLENE GLYCOL 3350 17 GM POWD.PACK GT SCH (21:57)
[2017-05-21 22:12] VITALS: BP 98/60
[2017-05-22] MEDS: POLYVINYL ALCOHOL 15 ML BOTTLE EACHEYE SCH ×5 (00:25→23:09)
[2017-05-22] MEDS: ALBUTEROL FS 2.5 MG/3 ML VIAL.NEB NEB SCH ×4 (00:41→19:13)
[2017-05-22] MEDS: CHLORHEXIDINE GLUCONATE 15 ML UDC MM SCH ×2 (05:59→17:38)
[2017-05-22 08:35] VITALS: BP 102/72
[2017-05-22 08:37] VITALS: BP 116/69
[2017-05-22] MEDS: CARBAMAZEPINE 100 MG/5 ML GT SCH ×3 (09:12→17:38)
[2017-05-22] MEDS: FOLIC ACID 1 MG TABLET GT SCH ×2 (09:12→17:38)
[2017-05-22] MEDS: BACLOFEN (10 MG) 10 MG TABLET GT SCH ×3 (09:12→17:38)
[2017-05-22] MEDS: SERTRALINE HCL 25 MG TABLET GT SCH (09:12)
[2017-05-22] MEDS: SENNOSIDES 8.6 MG TABLET GT SCH ×2 (09:12→21:04)
[2017-05-22] MEDS: LEVETIRACETAM SOL (5 ML) 100 MG/ML UDC GT SCH ×2 (09:12→21:04)
[2017-05-22] MEDS: HEPARIN SODIUM, PORCINE 5000 UNITS/1 ML VIAL SQ SCH ×2 (09:12→21:06)
[2017-05-22] MEDS: CLOTRIMAZOLE 1% 15 GM TUBE TP SCH ×2 (09:13→21:04)
[2017-05-22] MEDS: NYSTATIN TOP POWDER 15 GM BOTTLE TP SCH ×2 (09:13→17:38)
[2017-05-22] MEDS: Z GUARD REMEDY 4 OZ OINT TP SCH ×2 (09:13→21:04)
[2017-05-22] MEDS: HYDROGEN PEROXIDE 480 ML BOTTLE TP SCH ×2 (09:13→21:04)
[2017-05-22] MEDS: CHOLECALCIFEROL 1,000 UNIT TABLET (VIT D3) GT SCH (21:04)
[2017-05-22] MEDS: POLYETHYLENE GLYCOL 3350 17 GM POWD.PACK GT SCH (21:04)
[2017-05-22 23:10] VITALS: BP 109/60
[2017-05-23] MEDS: ALBUTEROL FS 2.5 MG/3 ML VIAL.NEB NEB SCH ×4 (01:15→20:16)
[2017-05-23] MEDS: CHLORHEXIDINE GLUCONATE 15 ML UDC MM SCH ×2 (05:11→17:08)
[2017-05-23] MEDS: POLYVINYL ALCOHOL 15 ML BOTTLE EACHEYE SCH ×4 (05:11→23:42)
[2017-05-23 08:22] VITALS: BP 120/69
[2017-05-23] MEDS: FOLIC ACID 1 MG TABLET GT SCH ×2 (08:32→17:08)
[2017-05-23] MEDS: LEVETIRACETAM SOL (5 ML) 100 MG/ML UDC GT SCH ×2 (08:33→21:07)
[2017-05-23] MEDS: BACLOFEN (10 MG) 10 MG TABLET GT SCH ×3 (08:34→17:08)
[2017-05-23] MEDS: SENNOSIDES 8.6 MG TABLET GT SCH ×2 (08:35→21:07)
[2017-05-23] MEDS: CARBAMAZEPINE 100 MG/5 ML GT SCH ×3 (08:37→17:08)
[2017-05-23] MEDS: SERTRALINE HCL 25 MG TABLET GT SCH (08:38)
[2017-05-23] MEDS: HEPARIN SODIUM, PORCINE 5000 UNITS/1 ML VIAL SQ SCH ×2 (08:42→21:07)
[2017-05-23] MEDS: CLOTRIMAZOLE 1% 15 GM TUBE TP SCH ×2 (09:00→21:07)
[2017-05-23] MEDS: Z GUARD REMEDY 4 OZ OINT TP SCH ×2 (09:00→21:07)
[2017-05-23] MEDS: CHLORHEXIDINE GLUCONATE 4% 118 ML BOTTLE TP SCH (09:00)
[2017-05-23] MEDS: NYSTATIN TOP POWDER 15 GM BOTTLE TP SCH ×2 (09:00→17:08)
[2017-05-23] MEDS: HYDROGEN PEROXIDE 480 ML BOTTLE TP SCH ×2 (09:00→21:07)
[2017-05-23] MEDS ORDERED: ACETAMINOPHEN 325 MG TABLET PO PRN (14:00)
[2017-05-23] MEDS: CHOLECALCIFEROL 1,000 UNIT TABLET (VIT D3) GT SCH (21:07)
[2017-05-23] MEDS: POLYETHYLENE GLYCOL 3350 17 GM POWD.PACK GT SCH (21:07)
[2017-05-23 22:37] VITALS: BP 125/67
[2017-05-24] MEDS: ALBUTEROL FS 2.5 MG/3 ML VIAL.NEB NEB SCH ×4 (01:39→20:13)
[2017-05-24] MEDS: POLYVINYL ALCOHOL 15 ML BOTTLE EACHEYE SCH ×3 (05:14→17:35)
[2017-05-24] MEDS: CHLORHEXIDINE GLUCONATE 15 ML UDC MM SCH ×2 (05:14→17:35)
[2017-05-24 07:34] VITALS: BP 117/43
[2017-05-24] MEDS: BACLOFEN (10 MG) 10 MG TABLET GT SCH ×3 (09:05→16:37)
[2017-05-24] MEDS: FOLIC ACID 1 MG TABLET GT SCH ×2 (09:05→16:37)
[2017-05-24] MEDS: LEVETIRACETAM SOL (5 ML) 100 MG/ML UDC GT SCH ×2 (09:05→20:54)
[2017-05-24] MEDS: SENNOSIDES 8.6 MG TABLET GT SCH ×2 (09:05→20:54)
[2017-05-24] MEDS: CARBAMAZEPINE 100 MG/5 ML GT SCH ×3 (09:06→16:37)
[2017-05-24] MEDS: HEPARIN SODIUM, PORCINE 5000 UNITS/1 ML VIAL SQ SCH ×2 (09:06→20:55)
[2017-05-24] MEDS: CHLORHEXIDINE GLUCONATE 4% 118 ML BOTTLE TP SCH (09:06)
[2017-05-24] MEDS: SERTRALINE HCL 25 MG TABLET GT SCH (09:06)
[2017-05-24] MEDS: Z GUARD REMEDY 4 OZ OINT TP SCH ×2 (09:07→20:55)
[2017-05-24] MEDS: NYSTATIN TOP POWDER 15 GM BOTTLE TP SCH ×2 (09:07→16:37)
[2017-05-24] MEDS: CLOTRIMAZOLE 1% 15 GM TUBE TP SCH ×2 (09:07→20:55)
[2017-05-24] MEDS: HYDROGEN PEROXIDE 480 ML BOTTLE TP SCH ×2 (09:07→20:55)
[2017-05-24 20:17] VITALS: BP 118/70
[2017-05-24] MEDS: CHOLECALCIFEROL 1,000 UNIT TABLET (VIT D3) GT SCH (20:54)
[2017-05-24] MEDS: POLYETHYLENE GLYCOL 3350 17 GM POWD.PACK GT SCH (22:00)
[2017-05-25] MEDS: POLYVINYL ALCOHOL 15 ML BOTTLE EACHEYE SCH ×5 (00:01→23:18)
[2017-05-25] MEDS: ALBUTEROL FS 2.5 MG/3 ML VIAL.NEB NEB SCH ×4 (02:01→20:15)
[2017-05-25] MEDS: CHLORHEXIDINE GLUCONATE 15 ML UDC MM SCH ×2 (06:16→17:58)
[2017-05-25 07:47] VITALS: BP 112/76
[2017-05-25] MEDS: SENNOSIDES 8.6 MG TABLET GT SCH ×2 (09:21→21:07)
[2017-05-25] MEDS: NYSTATIN TOP POWDER 15 GM BOTTLE TP SCH ×2 (09:21→16:42)
[2017-05-25] MEDS: CARBAMAZEPINE 100 MG/5 ML GT SCH ×3 (09:21→16:42)
[2017-05-25] MEDS: SERTRALINE HCL 25 MG TABLET GT SCH (09:21)
[2017-05-25] MEDS: BACLOFEN (10 MG) 10 MG TABLET GT SCH ×3 (09:21→16:42)
[2017-05-25] MEDS: FOLIC ACID 1 MG TABLET GT SCH ×2 (09:21→16:42)
[2017-05-25] MEDS: LEVETIRACETAM SOL (5 ML) 100 MG/ML UDC GT SCH ×2 (09:21→21:07)
[2017-05-25] MEDS: CLOTRIMAZOLE 1% 15 GM TUBE TP SCH ×2 (09:21→21:08)
[2017-05-25] MEDS: HYDROGEN PEROXIDE 480 ML BOTTLE TP SCH ×2 (09:21→21:08)
[2017-05-25] MEDS: Z GUARD REMEDY 4 OZ OINT TP SCH ×2 (09:21→21:08)
[2017-05-25] MEDS: HEPARIN SODIUM, PORCINE 5000 UNITS/1 ML VIAL SQ SCH ×2 (09:33→21:07)
--- NOTE | 2017-05-25 10:00 | NUR ---
Resident's mother asked if SW and the subacute safety and skill based pay manager can meet with her to discuss some concerns that she was having. She stated she would be available at 3pm. Informed subacute safety and skill based pay manager who stated that she can meet with her at this time.
--- NOTE | 2017-05-25 15:16 | NUR ---
HILTON arranged for subacute manager fixed income Yajaira to meet with resident's mother per her request. HILTON found an empty room to utilize on the first floor. Resident's mother then stated that she can meet with the manager fixed income during the family support group meeting scheduled for May 27, 2017 at 11AM and subacute manager fixed income Yajaira stated that she will attend. Resident's mother to speak to subacute manager fixed income during this time.
[2017-05-25 19:46] VITALS: BP 107/55
[2017-05-25] MEDS: CHOLECALCIFEROL 1,000 UNIT TABLET (VIT D3) GT SCH (21:07)
[2017-05-25] MEDS: POLYETHYLENE GLYCOL 3350 17 GM POWD.PACK GT SCH (21:08)
[2017-05-26] MEDS: ALBUTEROL FS 2.5 MG/3 ML VIAL.NEB NEB SCH ×4 (01:26→19:30)
[2017-05-26] MEDS: POLYVINYL ALCOHOL 15 ML BOTTLE EACHEYE SCH ×4 (05:13→23:47)
[2017-05-26] MEDS: CHLORHEXIDINE GLUCONATE 15 ML UDC MM SCH ×2 (05:13→18:04)
[2017-05-26] MEDS: FOLIC ACID 1 MG TABLET GT SCH ×2 (08:22→17:00)
[2017-05-26] MEDS: LEVETIRACETAM SOL (5 ML) 100 MG/ML UDC GT SCH ×2 (08:22→20:43)
[2017-05-26] MEDS: SENNOSIDES 8.6 MG TABLET GT SCH ×2 (08:23→20:43)
[2017-05-26] MEDS: BACLOFEN (10 MG) 10 MG TABLET GT SCH ×3 (08:23→17:00)
[2017-05-26] MEDS: SERTRALINE HCL 25 MG TABLET GT SCH (08:24)
[2017-05-26] MEDS: CARBAMAZEPINE 100 MG/5 ML GT SCH ×3 (08:24→17:00)
[2017-05-26] MEDS: HEPARIN SODIUM, PORCINE 5000 UNITS/1 ML VIAL SQ SCH ×2 (08:25→20:43)
[2017-05-26] MEDS: HYDROGEN PEROXIDE 480 ML BOTTLE TP SCH ×2 (09:00→20:43)
[2017-05-26] MEDS: Z GUARD REMEDY 4 OZ OINT TP SCH ×2 (11:00→20:43)
[2017-05-26] MEDS: NYSTATIN TOP POWDER 15 GM BOTTLE TP SCH ×2 (11:00→17:00)
[2017-05-26] MEDS: CLOTRIMAZOLE 1% 15 GM TUBE TP SCH ×2 (11:00→20:43)
--- NOTE | 2017-05-26 16:45 | NUR ---
RT PT IS AWAKE AND TRACKS WITH EYES. MONTHLY TRACH CHANGE DONE WITH NEW PORTEX 9 UNCUFFED TRACH WITH NO COMPLICATIONS. EQUAL BILATERAL BREATHE SOUNDS AND CHEST RISE. PT PLACED BACK ON COOL AEROSOL. NO RESPIRATORY DISTRESS NOTED AT THIS TIME, WILL CONTINUE TO MONITOR. Addendum: 05/26/17 at 1806 by RENATO OSORIO RT Amended: Links added.
[2017-05-26 19:42] VITALS: BP 111/67
[2017-05-26] MEDS: CHOLECALCIFEROL 1,000 UNIT TABLET (VIT D3) GT SCH (20:43)
[2017-05-26] MEDS: POLYETHYLENE GLYCOL 3350 17 GM POWD.PACK GT SCH (21:26)
[2017-05-27] MEDS: ALBUTEROL FS 2.5 MG/3 ML VIAL.NEB NEB SCH ×4 (01:37→19:17)
[2017-05-27] MEDS: CHLORHEXIDINE GLUCONATE 15 ML UDC MM SCH ×2 (05:05→17:29)
[2017-05-27] MEDS: POLYVINYL ALCOHOL 15 ML BOTTLE EACHEYE SCH ×3 (05:05→17:29)
[2017-05-27 07:49] VITALS: BP 116/71
[2017-05-27] MEDS: CARBAMAZEPINE 100 MG/5 ML GT SCH ×3 (08:39→17:29)
[2017-05-27] MEDS: HEPARIN SODIUM, PORCINE 5000 UNITS/1 ML VIAL SQ SCH ×2 (08:39→20:21)
[2017-05-27] MEDS: SENNOSIDES 8.6 MG TABLET GT SCH ×2 (08:39→20:21)
[2017-05-27] MEDS: FOLIC ACID 1 MG TABLET GT SCH ×2 (08:39→17:29)
[2017-05-27] MEDS: BACLOFEN (10 MG) 10 MG TABLET GT SCH ×3 (08:39→17:29)
[2017-05-27] MEDS: LEVETIRACETAM SOL (5 ML) 100 MG/ML UDC GT SCH ×2 (08:39→20:21)
[2017-05-27] MEDS: SERTRALINE HCL 25 MG TABLET GT SCH (08:39)
[2017-05-27] MEDS: Z GUARD REMEDY 4 OZ OINT TP SCH ×2 (09:00→20:21)
[2017-05-27] MEDS: CLOTRIMAZOLE 1% 15 GM TUBE TP SCH ×2 (09:00→20:21)
[2017-05-27] MEDS: HYDROGEN PEROXIDE 480 ML BOTTLE TP SCH ×2 (09:00→20:21)
[2017-05-27] MEDS: NYSTATIN TOP POWDER 15 GM BOTTLE TP SCH ×2 (09:00→17:29)
--- NOTE | 2017-05-27 13:28 | NUR ---
Subacute family support group meeting was held today at 11AM. Resident's mother was able to share her concerns with the SW and the subacute business analyst project manager, who was present for the meeting. Mother was able to clarify what time resident usually gets up and what time she is to be put back into bed. She was asking for more consistency to which the subacute business analyst project manager stated that she will speak to subacute staff. All of the mother's concerns were addressed during the meeting.
[2017-05-27 20:03] VITALS: BP 105/77
[2017-05-27] MEDS: CHOLECALCIFEROL 1,000 UNIT TABLET (VIT D3) GT SCH (20:21)
[2017-05-27] MEDS: POLYETHYLENE GLYCOL 3350 17 GM POWD.PACK GT SCH (21:26)
[2017-05-28] MEDS: POLYVINYL ALCOHOL 15 ML BOTTLE EACHEYE SCH ×4 (00:51→18:12)
[2017-05-28] MEDS: ALBUTEROL FS 2.5 MG/3 ML VIAL.NEB NEB SCH ×4 (01:57→18:53)
[2017-05-28] MEDS: CHLORHEXIDINE GLUCONATE 15 ML UDC MM SCH ×2 (05:07→18:12)
[2017-05-28 07:41] VITALS: BP 136/78
[2017-05-28] MEDS: CARBAMAZEPINE 100 MG/5 ML GT SCH ×3 (08:59→17:03)
[2017-05-28] MEDS: SENNOSIDES 8.6 MG TABLET GT SCH ×2 (08:59→21:00)
[2017-05-28] MEDS: BACLOFEN (10 MG) 10 MG TABLET GT SCH ×3 (08:59→17:03)
[2017-05-28] MEDS: LEVETIRACETAM SOL (5 ML) 100 MG/ML UDC GT SCH ×2 (08:59→21:00)
[2017-05-28] MEDS: FOLIC ACID 1 MG TABLET GT SCH ×2 (08:59→17:03)
[2017-05-28] MEDS: SERTRALINE HCL 25 MG TABLET GT SCH (08:59)
[2017-05-28] MEDS: HYDROGEN PEROXIDE 480 ML BOTTLE TP SCH ×2 (09:00→21:00)
[2017-05-28] MEDS: NYSTATIN TOP POWDER 15 GM BOTTLE TP SCH ×2 (09:00→17:03)
[2017-05-28] MEDS: HEPARIN SODIUM, PORCINE 5000 UNITS/1 ML VIAL SQ SCH ×2 (09:00→21:00)
[2017-05-28 20:53] VITALS: BP 104/63
[2017-05-28] MEDS: CHOLECALCIFEROL 1,000 UNIT TABLET (VIT D3) GT SCH (21:00)
[2017-05-28] MEDS: POLYETHYLENE GLYCOL 3350 17 GM POWD.PACK GT SCH (22:05)
[2017-05-29] MEDS: POLYVINYL ALCOHOL 15 ML BOTTLE EACHEYE SCH ×5 (00:35→23:06)
[2017-05-29] MEDS: ALBUTEROL FS 2.5 MG/3 ML VIAL.NEB NEB SCH ×4 (01:47→19:30)
[2017-05-29] MEDS: CHLORHEXIDINE GLUCONATE 15 ML UDC MM SCH ×2 (05:44→17:16)
[2017-05-29 07:34] VITALS: BP 125/82
[2017-05-29] MEDS: CARBAMAZEPINE 100 MG/5 ML GT SCH ×3 (09:30→17:16)
[2017-05-29] MEDS: BACLOFEN (10 MG) 10 MG TABLET GT SCH ×3 (09:30→17:16)
[2017-05-29] MEDS: FOLIC ACID 1 MG TABLET GT SCH ×2 (09:30→17:16)
[2017-05-29] MEDS: LEVETIRACETAM SOL (5 ML) 100 MG/ML UDC GT SCH ×2 (09:30→21:03)
[2017-05-29] MEDS: SERTRALINE HCL 25 MG TABLET GT SCH (09:30)
[2017-05-29] MEDS: SENNOSIDES 8.6 MG TABLET GT SCH ×2 (09:30→21:03)
[2017-05-29] MEDS: HEPARIN SODIUM, PORCINE 5000 UNITS/1 ML VIAL SQ SCH ×2 (09:34→21:03)
[2017-05-29] MEDS: NYSTATIN TOP POWDER 15 GM BOTTLE TP SCH ×2 (09:38→17:16)
[2017-05-29] MEDS: HYDROGEN PEROXIDE 480 ML BOTTLE TP SCH ×2 (09:38→21:03)
--- NOTE | 2017-05-29 13:42 | NUR ---
INTERDISCIPLINARY TEAM CONFERENCE (IDT) was held today. Resident's mother unable to attend. Dr. Lubin and the interdisciplinary team reviewed the current plan of care in detail. New orders were reviewed. No changes were noted and resident remains stable.
[2017-05-29 20:03] VITALS: BP 134/78
[2017-05-29] MEDS: POLYETHYLENE GLYCOL 3350 17 GM POWD.PACK GT SCH (21:03)
[2017-05-29] MEDS: CHOLECALCIFEROL 1,000 UNIT TABLET (VIT D3) GT SCH (21:03)
[2017-05-30] MEDS: ALBUTEROL FS 2.5 MG/3 ML VIAL.NEB NEB SCH ×4 (01:24→19:23)
[2017-05-30] MEDS: POLYVINYL ALCOHOL 15 ML BOTTLE EACHEYE SCH ×4 (05:11→23:22)
[2017-05-30] MEDS: CHLORHEXIDINE GLUCONATE 15 ML UDC MM SCH ×2 (05:11→18:03)
[2017-05-30 07:51] VITALS: BP 148/79
[2017-05-30] MEDS: NYSTATIN TOP POWDER 15 GM BOTTLE TP SCH ×2 (09:00→17:00)
[2017-05-30] MEDS: HYDROGEN PEROXIDE 480 ML BOTTLE TP SCH ×2 (09:00→21:09)
[2017-05-30] MEDS: CLOTRIMAZOLE 1% 15 GM TUBE TP SCH ×2 (09:06→21:09)
[2017-05-30] MEDS: Z GUARD REMEDY 4 OZ OINT TP SCH ×2 (09:07→21:09)
[2017-05-30] MEDS: SERTRALINE HCL 25 MG TABLET GT SCH (09:23)
[2017-05-30] MEDS: LEVETIRACETAM SOL (5 ML) 100 MG/ML UDC GT SCH ×2 (09:23→21:08)
[2017-05-30] MEDS: CARBAMAZEPINE 100 MG/5 ML GT SCH ×3 (09:23→17:00)
[2017-05-30] MEDS: FOLIC ACID 1 MG TABLET GT SCH ×2 (09:23→17:00)
[2017-05-30] MEDS: SENNOSIDES 8.6 MG TABLET GT SCH ×2 (09:23→21:08)
[2017-05-30] MEDS: BACLOFEN (10 MG) 10 MG TABLET GT SCH ×3 (09:23→17:00)
[2017-05-30] MEDS: HEPARIN SODIUM, PORCINE 5000 UNITS/1 ML VIAL SQ SCH ×2 (09:24→21:09)
[2017-05-30 20:00] VITALS: BP 117/64
[2017-05-30] MEDS: CHOLECALCIFEROL 1,000 UNIT TABLET (VIT D3) GT SCH (21:08)
[2017-05-30] MEDS: POLYETHYLENE GLYCOL 3350 17 GM POWD.PACK GT SCH (21:09)
[2017-05-31] MEDS: ALBUTEROL FS 2.5 MG/3 ML VIAL.NEB NEB SCH ×4 (01:47→20:22)
[2017-05-31] MEDS: CHLORHEXIDINE GLUCONATE 15 ML UDC MM SCH ×2 (05:41→17:38)
[2017-05-31] MEDS: POLYVINYL ALCOHOL 15 ML BOTTLE EACHEYE SCH ×3 (05:41→17:38)
[2017-05-31 07:50] VITALS: BP 132/63
[2017-05-31] MEDS: LEVETIRACETAM SOL (5 ML) 100 MG/ML UDC GT SCH ×2 (08:44→20:36)
[2017-05-31] MEDS: CARBAMAZEPINE 100 MG/5 ML GT SCH ×3 (08:44→17:38)
[2017-05-31] MEDS: SENNOSIDES 8.6 MG TABLET GT SCH ×2 (08:44→20:36)
[2017-05-31] MEDS: FOLIC ACID 1 MG TABLET GT SCH ×2 (08:44→17:38)
[2017-05-31] MEDS: BACLOFEN (10 MG) 10 MG TABLET GT SCH ×3 (08:44→17:38)
[2017-05-31] MEDS: SERTRALINE HCL 25 MG TABLET GT SCH (08:44)
[2017-05-31] MEDS: CLOTRIMAZOLE 1% 15 GM TUBE TP SCH ×2 (08:48→20:40)
[2017-05-31] MEDS: HYDROGEN PEROXIDE 480 ML BOTTLE TP SCH ×2 (08:48→20:40)
[2017-05-31] MEDS: HEPARIN SODIUM, PORCINE 5000 UNITS/1 ML VIAL SQ SCH ×2 (08:48→20:40)
[2017-05-31] MEDS: Z GUARD REMEDY 4 OZ OINT TP SCH ×2 (08:48→20:40)
[2017-05-31] MEDS: NYSTATIN TOP POWDER 15 GM BOTTLE TP SCH ×2 (08:48→17:38)
[2017-05-31 19:49] VITALS: BP 105/58
[2017-05-31] MEDS: CHOLECALCIFEROL 1,000 UNIT TABLET (VIT D3) GT SCH (20:38)
[2017-05-31] MEDS: POLYETHYLENE GLYCOL 3350 17 GM POWD.PACK GT SCH (21:26)
[2017-06-01] MEDS: POLYVINYL ALCOHOL 15 ML BOTTLE EACHEYE SCH ×4 (00:29→18:26)
[2017-06-01] MEDS: ALBUTEROL FS 2.5 MG/3 ML VIAL.NEB NEB SCH ×4 (01:56→20:17)
[2017-06-01] MEDS: CHLORHEXIDINE GLUCONATE 15 ML UDC MM SCH ×2 (05:34→18:26)
[2017-06-01 07:55] VITALS: BP 127/77
[2017-06-01] MEDS: SENNOSIDES 8.6 MG TABLET GT SCH ×2 (08:32→20:29)
[2017-06-01] MEDS: CLOTRIMAZOLE 1% 15 GM TUBE TP SCH ×2 (08:32→20:32)
[2017-06-01] MEDS: CARBAMAZEPINE 100 MG/5 ML GT SCH ×3 (08:32→16:45)
[2017-06-01] MEDS: BACLOFEN (10 MG) 10 MG TABLET GT SCH ×3 (08:32→16:45)
[2017-06-01] MEDS: NYSTATIN TOP POWDER 15 GM BOTTLE TP SCH ×2 (08:32→16:45)
[2017-06-01] MEDS: HYDROGEN PEROXIDE 480 ML BOTTLE TP SCH ×2 (08:32→20:32)
[2017-06-01] MEDS: HEPARIN SODIUM, PORCINE 5000 UNITS/1 ML VIAL SQ SCH ×2 (08:32→20:32)
[2017-06-01] MEDS: SERTRALINE HCL 25 MG TABLET GT SCH (08:32)
[2017-06-01] MEDS: FOLIC ACID 1 MG TABLET GT SCH ×2 (08:32→16:45)
[2017-06-01] MEDS: LEVETIRACETAM SOL (5 ML) 100 MG/ML UDC GT SCH ×2 (08:32→20:29)
[2017-06-01] MEDS: Z GUARD REMEDY 4 OZ OINT TP SCH ×2 (08:33→20:32)
[2017-06-01 19:52] VITALS: BP 116/58
[2017-06-01] MEDS: CHOLECALCIFEROL 1,000 UNIT TABLET (VIT D3) GT SCH (20:30)
[2017-06-01] MEDS: POLYETHYLENE GLYCOL 3350 17 GM POWD.PACK GT SCH (21:34)
[2017-06-02] MEDS: POLYVINYL ALCOHOL 15 ML BOTTLE EACHEYE SCH ×4 (00:29→17:08)
[2017-06-02] MEDS: ALBUTEROL FS 2.5 MG/3 ML VIAL.NEB NEB SCH ×4 (02:28→19:15)
[2017-06-02] MEDS: CHLORHEXIDINE GLUCONATE 15 ML UDC MM SCH ×2 (05:57→17:08)
[2017-06-02 07:57] VITALS: BP 120/75
[2017-06-02] MEDS: SENNOSIDES 8.6 MG TABLET GT SCH ×2 (08:47→20:22)
[2017-06-02] MEDS: BACLOFEN (10 MG) 10 MG TABLET GT SCH ×3 (08:47→16:49)
[2017-06-02] MEDS: SERTRALINE HCL 25 MG TABLET GT SCH (08:47)
[2017-06-02] MEDS: CARBAMAZEPINE 100 MG/5 ML GT SCH ×3 (08:47→16:49)
[2017-06-02] MEDS: LEVETIRACETAM SOL (5 ML) 100 MG/ML UDC GT SCH ×2 (08:47→20:22)
[2017-06-02] MEDS: FOLIC ACID 1 MG TABLET GT SCH ×2 (08:47→16:49)
[2017-06-02] MEDS: HEPARIN SODIUM, PORCINE 5000 UNITS/1 ML VIAL SQ SCH ×2 (08:48→20:24)
[2017-06-02] MEDS: NYSTATIN TOP POWDER 15 GM BOTTLE TP SCH ×2 (08:48→16:49)
[2017-06-02] MEDS: CLOTRIMAZOLE 1% 15 GM TUBE TP SCH ×2 (08:48→20:24)
[2017-06-02] MEDS: HYDROGEN PEROXIDE 480 ML BOTTLE TP SCH ×2 (08:48→20:24)
[2017-06-02] MEDS: Z GUARD REMEDY 4 OZ OINT TP SCH ×2 (08:48→20:24)
[2017-06-02 19:12] VITALS: BP 100/59
[2017-06-02] MEDS: CHOLECALCIFEROL 1,000 UNIT TABLET (VIT D3) GT SCH (20:22)
[2017-06-02] MEDS: POLYETHYLENE GLYCOL 3350 17 GM POWD.PACK GT SCH (22:14)
[2017-06-03] MEDS: POLYVINYL ALCOHOL 15 ML BOTTLE EACHEYE SCH ×5 (00:04→23:39)
[2017-06-03] MEDS: ALBUTEROL FS 2.5 MG/3 ML VIAL.NEB NEB SCH ×4 (01:58→19:46)
[2017-06-03] MEDS: CHLORHEXIDINE GLUCONATE 15 ML UDC MM SCH ×2 (05:22→17:48)
[2017-06-03 07:52] VITALS: BP 123/84
[2017-06-03] MEDS: BACLOFEN (10 MG) 10 MG TABLET GT SCH ×3 (09:00→17:48)
[2017-06-03] MEDS: SENNOSIDES 8.6 MG TABLET GT SCH ×2 (09:00→21:11)
[2017-06-03] MEDS: LEVETIRACETAM SOL (5 ML) 100 MG/ML UDC GT SCH ×2 (09:00→21:11)
[2017-06-03] MEDS: SERTRALINE HCL 25 MG TABLET GT SCH (09:00)
[2017-06-03] MEDS: HEPARIN SODIUM, PORCINE 5000 UNITS/1 ML VIAL SQ SCH ×2 (09:00→21:11)
[2017-06-03] MEDS: CARBAMAZEPINE 100 MG/5 ML GT SCH ×3 (09:00→17:48)
[2017-06-03] MEDS: HYDROGEN PEROXIDE 480 ML BOTTLE TP SCH ×2 (09:00→21:11)
[2017-06-03] MEDS: CLOTRIMAZOLE 1% 15 GM TUBE TP SCH ×2 (09:00→21:11)
[2017-06-03] MEDS: Z GUARD REMEDY 4 OZ OINT TP SCH ×2 (09:00→21:11)
[2017-06-03] MEDS: NYSTATIN TOP POWDER 15 GM BOTTLE TP SCH ×2 (09:00→17:48)
[2017-06-03] MEDS: FOLIC ACID 1 MG TABLET GT SCH ×2 (09:00→17:48)
[2017-06-03 19:44] VITALS: BP 105/65
[2017-06-03] MEDS: CHOLECALCIFEROL 1,000 UNIT TABLET (VIT D3) GT SCH (21:11)
[2017-06-03] MEDS: POLYETHYLENE GLYCOL 3350 17 GM POWD.PACK GT SCH (21:11)
[2017-06-04] MEDS: ALBUTEROL FS 2.5 MG/3 ML VIAL.NEB NEB SCH ×4 (02:29→19:08)
[2017-06-04] MEDS: CHLORHEXIDINE GLUCONATE 15 ML UDC MM SCH ×2 (05:30→18:30)
[2017-06-04] MEDS: POLYVINYL ALCOHOL 15 ML BOTTLE EACHEYE SCH ×3 (05:30→18:30)
[2017-06-04 07:51] VITALS: BP 119/84
[2017-06-04] MEDS: HYDROGEN PEROXIDE 480 ML BOTTLE TP SCH ×2 (09:00→20:30)
[2017-06-04] MEDS: CARBAMAZEPINE 100 MG/5 ML GT SCH ×3 (09:00→17:00)
[2017-06-04] MEDS: SENNOSIDES 8.6 MG TABLET GT SCH ×2 (09:00→20:26)
[2017-06-04] MEDS: CLOTRIMAZOLE 1% 15 GM TUBE TP SCH ×2 (09:00→20:30)
[2017-06-04] MEDS: SERTRALINE HCL 25 MG TABLET GT SCH (09:00)
[2017-06-04] MEDS: BACLOFEN (10 MG) 10 MG TABLET GT SCH ×3 (09:00→17:00)
[2017-06-04] MEDS: FOLIC ACID 1 MG TABLET GT SCH ×2 (09:00→17:00)
[2017-06-04] MEDS: LEVETIRACETAM SOL (5 ML) 100 MG/ML UDC GT SCH ×2 (09:00→20:26)
[2017-06-04] MEDS: HEPARIN SODIUM, PORCINE 5000 UNITS/1 ML VIAL SQ SCH ×2 (09:00→20:30)
[2017-06-04] MEDS: Z GUARD REMEDY 4 OZ OINT TP SCH ×2 (09:00→20:30)
[2017-06-04] MEDS: NYSTATIN TOP POWDER 15 GM BOTTLE TP SCH ×2 (09:00→17:00)
--- NOTE | 2017-06-04 11:02 | NUR ---
Mother addressed concerns with social media manager about time resident is placed back into bed after lunch time, about resident feeding during lunch/dinner when she is not here, and about changing pillow cases on a daily basis. Concerns were addressed with subacute booth manager and charge nurse.
[2017-06-04 19:59] VITALS: BP 100/53
[2017-06-04] MEDS: CHOLECALCIFEROL 1,000 UNIT TABLET (VIT D3) GT SCH (20:27)
[2017-06-04] MEDS: POLYETHYLENE GLYCOL 3350 17 GM POWD.PACK GT SCH (22:00)
[2017-06-05] MEDS: POLYVINYL ALCOHOL 15 ML BOTTLE EACHEYE SCH ×4 (00:11→17:45)
[2017-06-05] MEDS: ALBUTEROL FS 2.5 MG/3 ML VIAL.NEB NEB SCH ×4 (01:51→19:26)
[2017-06-05] MEDS: CHLORHEXIDINE GLUCONATE 15 ML UDC MM SCH ×2 (06:04→17:45)
[2017-06-05 07:29] VITALS: BP 128/90
[2017-06-05] MEDS: FOLIC ACID 1 MG TABLET GT SCH ×2 (09:00→17:45)
[2017-06-05] MEDS: SERTRALINE HCL 25 MG TABLET GT SCH (09:00)
[2017-06-05] MEDS: NYSTATIN TOP POWDER 15 GM BOTTLE TP SCH ×2 (09:00→17:45)
[2017-06-05] MEDS: SENNOSIDES 8.6 MG TABLET GT SCH ×2 (09:00→21:05)
[2017-06-05] MEDS: BACLOFEN (10 MG) 10 MG TABLET GT SCH ×3 (09:00→17:45)
[2017-06-05] MEDS: CLOTRIMAZOLE 1% 15 GM TUBE TP SCH ×2 (09:00→21:05)
[2017-06-05] MEDS: Z GUARD REMEDY 4 OZ OINT TP SCH ×2 (09:00→21:06)
[2017-06-05] MEDS: HEPARIN SODIUM, PORCINE 5000 UNITS/1 ML VIAL SQ SCH ×2 (09:00→21:05)
[2017-06-05] MEDS: CARBAMAZEPINE 100 MG/5 ML GT SCH ×3 (09:00→17:45)
[2017-06-05] MEDS: HYDROGEN PEROXIDE 480 ML BOTTLE TP SCH ×2 (09:00→21:05)
[2017-06-05] MEDS: LEVETIRACETAM SOL (5 ML) 100 MG/ML UDC GT SCH ×2 (09:00→21:05)
[2017-06-05 19:38] VITALS: BP 123/65
[2017-06-05] MEDS: CHOLECALCIFEROL 1,000 UNIT TABLET (VIT D3) GT SCH (21:05)
[2017-06-05] MEDS: POLYETHYLENE GLYCOL 3350 17 GM POWD.PACK GT SCH (21:06)
[2017-06-06] MEDS: POLYVINYL ALCOHOL 15 ML BOTTLE EACHEYE SCH ×4 (00:02→18:40)
[2017-06-06] MEDS: ALBUTEROL FS 2.5 MG/3 ML VIAL.NEB NEB SCH ×4 (01:22→19:31)
[2017-06-06] MEDS: CHLORHEXIDINE GLUCONATE 15 ML UDC MM SCH ×2 (05:36→18:40)
[2017-06-06 07:28] VITALS: BP 121/97
[2017-06-06] MEDS: HYDROGEN PEROXIDE 480 ML BOTTLE TP SCH ×2 (09:00→21:59)
[2017-06-06] MEDS: CLOTRIMAZOLE 1% 15 GM TUBE TP SCH ×2 (09:00→21:59)
[2017-06-06] MEDS: Z GUARD REMEDY 4 OZ OINT TP SCH ×2 (09:00→21:59)
[2017-06-06] MEDS: NYSTATIN TOP POWDER 15 GM BOTTLE TP SCH ×2 (09:00→17:00)
[2017-06-06] MEDS: SENNOSIDES 8.6 MG TABLET GT SCH ×2 (09:41→21:58)
[2017-06-06] MEDS: SERTRALINE HCL 25 MG TABLET GT SCH (09:41)
[2017-06-06] MEDS: LEVETIRACETAM SOL (5 ML) 100 MG/ML UDC GT SCH ×2 (09:41→21:58)
[2017-06-06] MEDS: CARBAMAZEPINE 100 MG/5 ML GT SCH ×3 (09:41→17:00)
[2017-06-06] MEDS: BACLOFEN (10 MG) 10 MG TABLET GT SCH ×3 (09:41→17:00)
[2017-06-06] MEDS: FOLIC ACID 1 MG TABLET GT SCH ×2 (09:41→17:00)
[2017-06-06] MEDS: HEPARIN SODIUM, PORCINE 5000 UNITS/1 ML VIAL SQ SCH ×2 (09:43→21:59)
[2017-06-06 19:29] VITALS: BP 125/67
[2017-06-06] MEDS: CHOLECALCIFEROL 1,000 UNIT TABLET (VIT D3) GT SCH (21:58)
[2017-06-06] MEDS: POLYETHYLENE GLYCOL 3350 17 GM POWD.PACK GT SCH (21:59)
[2017-06-07] MEDS: POLYVINYL ALCOHOL 15 ML BOTTLE EACHEYE SCH ×4 (00:22→17:49)
[2017-06-07] MEDS: ALBUTEROL FS 2.5 MG/3 ML VIAL.NEB NEB SCH ×4 (02:24→20:15)
[2017-06-07] MEDS: CHLORHEXIDINE GLUCONATE 15 ML UDC MM SCH ×2 (05:24→17:49)
[2017-06-07 07:54] VITALS: BP 148/94
[2017-06-07] MEDS: BACLOFEN (10 MG) 10 MG TABLET GT SCH ×3 (08:59→16:52)
[2017-06-07] MEDS: SENNOSIDES 8.6 MG TABLET GT SCH ×2 (08:59→20:24)
[2017-06-07] MEDS: FOLIC ACID 1 MG TABLET GT SCH ×2 (08:59→16:52)
[2017-06-07] MEDS: LEVETIRACETAM SOL (5 ML) 100 MG/ML UDC GT SCH ×2 (08:59→20:30)
[2017-06-07] MEDS: CARBAMAZEPINE 100 MG/5 ML GT SCH ×3 (08:59→16:53)
[2017-06-07] MEDS: HYDROGEN PEROXIDE 480 ML BOTTLE TP SCH ×2 (09:00→20:28)
[2017-06-07] MEDS: NYSTATIN TOP POWDER 15 GM BOTTLE TP SCH ×2 (09:00→16:53)
[2017-06-07] MEDS: Z GUARD REMEDY 4 OZ OINT TP SCH ×2 (09:00→20:28)
[2017-06-07] MEDS: CLOTRIMAZOLE 1% 15 GM TUBE TP SCH ×2 (09:00→20:28)
[2017-06-07] MEDS: SERTRALINE HCL 25 MG TABLET GT SCH (09:05)
[2017-06-07] MEDS: HEPARIN SODIUM, PORCINE 5000 UNITS/1 ML VIAL SQ SCH ×2 (09:06→20:27)
[2017-06-07 19:39] VITALS: BP 149/89
[2017-06-07] MEDS: CHOLECALCIFEROL 1,000 UNIT TABLET (VIT D3) GT SCH (20:25)
[2017-06-07] MEDS: POLYETHYLENE GLYCOL 3350 17 GM POWD.PACK GT SCH (22:16)
[2017-06-08] MEDS: POLYVINYL ALCOHOL 15 ML BOTTLE EACHEYE SCH ×4 (00:09→17:31)
[2017-06-08] MEDS: ALBUTEROL FS 2.5 MG/3 ML VIAL.NEB NEB SCH ×4 (01:16→19:23)
[2017-06-08] MEDS: CHLORHEXIDINE GLUCONATE 15 ML UDC MM SCH ×2 (05:51→17:31)
[2017-06-08 08:57] VITALS: BP 120/79
[2017-06-08] MEDS: FOLIC ACID 1 MG TABLET GT SCH ×2 (09:13→17:31)
[2017-06-08] MEDS: LEVETIRACETAM SOL (5 ML) 100 MG/ML UDC GT SCH ×2 (09:13→20:22)
[2017-06-08] MEDS: BACLOFEN (10 MG) 10 MG TABLET GT SCH ×3 (09:13→17:31)
[2017-06-08] MEDS: CARBAMAZEPINE 100 MG/5 ML GT SCH ×3 (09:13→17:31)
[2017-06-08] MEDS: SERTRALINE HCL 25 MG TABLET GT SCH (09:13)
[2017-06-08] MEDS: SENNOSIDES 8.6 MG TABLET GT SCH ×2 (09:13→20:22)
[2017-06-08] MEDS: NYSTATIN TOP POWDER 15 GM BOTTLE TP SCH ×2 (09:24→17:31)
[2017-06-08] MEDS: CLOTRIMAZOLE 1% 15 GM TUBE TP SCH ×2 (09:24→20:25)
[2017-06-08] MEDS: HYDROGEN PEROXIDE 480 ML BOTTLE TP SCH ×2 (09:25→20:25)
[2017-06-08] MEDS: Z GUARD REMEDY 4 OZ OINT TP SCH ×2 (09:25→20:25)
[2017-06-08] MEDS: HEPARIN SODIUM, PORCINE 5000 UNITS/1 ML VIAL SQ SCH ×2 (09:26→20:25)
--- NOTE | 2017-06-08 14:10 | NUR ---
Notified Dr. Aguilar resident coughing a lot during feeding. Asked if he would like to order chest X-ray and do an ST reevaluation, but per Dr. Aguilar no order at this time. Resident's mother informed.
[2017-06-08 20:00] VITALS: BP 99/52
[2017-06-08] MEDS: CHOLECALCIFEROL 1,000 UNIT TABLET (VIT D3) GT SCH (20:22)
[2017-06-08] MEDS: POLYETHYLENE GLYCOL 3350 17 GM POWD.PACK GT SCH (22:16)
[2017-06-09] MEDS: POLYVINYL ALCOHOL 15 ML BOTTLE EACHEYE SCH ×4 (00:17→17:30)
[2017-06-09] MEDS: ALBUTEROL FS 2.5 MG/3 ML VIAL.NEB NEB SCH ×4 (00:43→20:13)
[2017-06-09] MEDS: CHLORHEXIDINE GLUCONATE 15 ML UDC MM SCH ×2 (05:29→17:30)
[2017-06-09 07:48] VITALS: BP 124/84
[2017-06-09] MEDS: CARBAMAZEPINE 100 MG/5 ML GT SCH ×3 (08:10→17:29)
[2017-06-09] MEDS: LEVETIRACETAM SOL (5 ML) 100 MG/ML UDC GT SCH ×2 (08:10→20:27)
[2017-06-09] MEDS: BACLOFEN (10 MG) 10 MG TABLET GT SCH ×3 (08:10→17:29)
[2017-06-09] MEDS: HEPARIN SODIUM, PORCINE 5000 UNITS/1 ML VIAL SQ SCH ×2 (08:10→20:33)
[2017-06-09] MEDS: FOLIC ACID 1 MG TABLET GT SCH ×2 (08:10→17:29)
[2017-06-09] MEDS: SENNOSIDES 8.6 MG TABLET GT SCH ×2 (08:10→20:27)
[2017-06-09] MEDS: SERTRALINE HCL 25 MG TABLET GT SCH (08:10)
[2017-06-09] MEDS: Z GUARD REMEDY 4 OZ OINT TP SCH ×2 (08:11→20:34)
[2017-06-09] MEDS: NYSTATIN TOP POWDER 15 GM BOTTLE TP SCH ×2 (08:11→17:30)
[2017-06-09] MEDS: CLOTRIMAZOLE 1% 15 GM TUBE TP SCH ×2 (08:11→20:34)
[2017-06-09] MEDS: HYDROGEN PEROXIDE 480 ML BOTTLE TP SCH ×2 (08:11→20:34)
--- NOTE | 2017-06-09 12:45 | NUR ---
Pt was seen by Dr. Aguilar. Pt's mother at bedside. Mother concerned about pt's coughing when she eats. Dr. Aguilar discussed the matter with her, no new order.
[2017-06-09 19:52] VITALS: BP 101/61
[2017-06-09] MEDS: CHOLECALCIFEROL 1,000 UNIT TABLET (VIT D3) GT SCH (20:32)
[2017-06-09] MEDS: POLYETHYLENE GLYCOL 3350 17 GM POWD.PACK GT SCH (22:42)
[2017-06-10] MEDS: POLYVINYL ALCOHOL 15 ML BOTTLE EACHEYE SCH ×5 (00:05→23:53)
[2017-06-10] MEDS: ALBUTEROL FS 2.5 MG/3 ML VIAL.NEB NEB SCH ×4 (00:56→19:05)
[2017-06-10] MEDS: CHLORHEXIDINE GLUCONATE 15 ML UDC MM SCH ×2 (05:25→18:00)
[2017-06-10 07:44] VITALS: BP 112/87
[2017-06-10] MEDS: BACLOFEN (10 MG) 10 MG TABLET GT SCH ×3 (09:48→16:34)
[2017-06-10] MEDS: LEVETIRACETAM SOL (5 ML) 100 MG/ML UDC GT SCH ×2 (09:48→21:37)
[2017-06-10] MEDS: FOLIC ACID 1 MG TABLET GT SCH ×2 (09:48→16:34)
[2017-06-10] MEDS: SENNOSIDES 8.6 MG TABLET GT SCH ×2 (09:48→21:37)
[2017-06-10] MEDS: CARBAMAZEPINE 100 MG/5 ML GT SCH ×3 (09:48→16:34)
[2017-06-10] MEDS: SERTRALINE HCL 25 MG TABLET GT SCH (09:48)
[2017-06-10] MEDS: CLOTRIMAZOLE 1% 15 GM TUBE TP SCH ×2 (09:49→21:38)
[2017-06-10] MEDS: NYSTATIN TOP POWDER 15 GM BOTTLE TP SCH ×2 (09:49→16:34)
[2017-06-10] MEDS: Z GUARD REMEDY 4 OZ OINT TP SCH ×2 (09:49→21:38)
[2017-06-10] MEDS: HYDROGEN PEROXIDE 480 ML BOTTLE TP SCH ×2 (09:49→21:37)
[2017-06-10] MEDS: HEPARIN SODIUM, PORCINE 5000 UNITS/1 ML VIAL SQ SCH ×2 (09:49→21:37)
--- NOTE | 2017-06-10 10:00 | NUR ---
Notified by POWER SUPERINTENDENT that per resident's mother she is insisting she wants a cushion in the patient's wheelchair on top of what she already have. Explained to Mrs. Swift that resident's wheelchair comes with customized pressure relieving cushion and does not need another cushion on top of it. Further explained patient can also fall out of the chair if another layer of cushion is place on top of the existing cushion. Mother verbalized understanding.
--- NOTE | 2017-06-10 19:00 | NUR ---
Seen by Sugar Spangler NP for JAZMINE Benites given at this time.
[2017-06-10] MEDS: CHOLECALCIFEROL 1,000 UNIT TABLET (VIT D3) GT SCH (21:37)
[2017-06-10] MEDS: POLYETHYLENE GLYCOL 3350 17 GM POWD.PACK GT SCH (21:38)
[2017-06-10 23:37] VITALS: BP 104/64
[2017-06-11] MEDS: ALBUTEROL FS 2.5 MG/3 ML VIAL.NEB NEB SCH ×4 (01:47→18:59)
[2017-06-11] MEDS: POLYVINYL ALCOHOL 15 ML BOTTLE EACHEYE SCH ×3 (05:05→18:01)
[2017-06-11] MEDS: CHLORHEXIDINE GLUCONATE 15 ML UDC MM SCH ×2 (05:05→18:01)
[2017-06-11 07:44] VITALS: BP 129/56
[2017-06-11] MEDS: FOLIC ACID 1 MG TABLET GT SCH ×2 (08:30→17:59)
[2017-06-11] MEDS: LEVETIRACETAM SOL (5 ML) 100 MG/ML UDC GT SCH ×2 (08:30→20:35)
[2017-06-11] MEDS: BACLOFEN (10 MG) 10 MG TABLET GT SCH ×3 (08:31→17:59)
[2017-06-11] MEDS: SENNOSIDES 8.6 MG TABLET GT SCH ×2 (08:31→20:35)
[2017-06-11] MEDS: CARBAMAZEPINE 100 MG/5 ML GT SCH ×3 (08:33→17:59)
[2017-06-11] MEDS: SERTRALINE HCL 25 MG TABLET GT SCH (08:33)
[2017-06-11] MEDS: CLOTRIMAZOLE 1% 15 GM TUBE TP SCH ×2 (08:34→21:32)
[2017-06-11] MEDS: NYSTATIN TOP POWDER 15 GM BOTTLE TP SCH ×2 (08:34→17:59)
[2017-06-11] MEDS: HEPARIN SODIUM, PORCINE 5000 UNITS/1 ML VIAL SQ SCH ×2 (08:34→20:36)
[2017-06-11] MEDS: Z GUARD REMEDY 4 OZ OINT TP SCH ×2 (08:34→21:33)
[2017-06-11] MEDS: HYDROGEN PEROXIDE 480 ML BOTTLE TP SCH ×2 (11:00→21:32)
[2017-06-11] MEDS: CHOLECALCIFEROL 1,000 UNIT TABLET (VIT D3) GT SCH (20:35)
[2017-06-11] MEDS: POLYETHYLENE GLYCOL 3350 17 GM POWD.PACK GT SCH (21:33)
[2017-06-11 22:25] VITALS: BP 110/57
[2017-06-12] MEDS: POLYVINYL ALCOHOL 15 ML BOTTLE EACHEYE SCH ×5 (00:15→23:50)
[2017-06-12] MEDS: ALBUTEROL FS 2.5 MG/3 ML VIAL.NEB NEB SCH ×5 (01:30→19:53)
[2017-06-12] MEDS: CHLORHEXIDINE GLUCONATE 15 ML UDC MM SCH ×2 (05:37→17:23)
[2017-06-12 08:18] VITALS: BP 143/80
[2017-06-12] MEDS: LEVETIRACETAM SOL (5 ML) 100 MG/ML UDC GT SCH ×2 (08:20→20:58)
[2017-06-12] MEDS: BACLOFEN (10 MG) 10 MG TABLET GT SCH ×3 (08:20→17:23)
[2017-06-12] MEDS: FOLIC ACID 1 MG TABLET GT SCH ×2 (08:20→17:22)
[2017-06-12] MEDS: SENNOSIDES 8.6 MG TABLET GT SCH ×2 (08:21→20:58)
[2017-06-12] MEDS: CARBAMAZEPINE 100 MG/5 ML GT SCH ×3 (08:21→17:23)
[2017-06-12] MEDS: SERTRALINE HCL 25 MG TABLET GT SCH (08:22)
[2017-06-12] MEDS: HEPARIN SODIUM, PORCINE 5000 UNITS/1 ML VIAL SQ SCH ×2 (08:23→20:59)
[2017-06-12] MEDS: NYSTATIN TOP POWDER 15 GM BOTTLE TP SCH ×2 (08:23→17:23)
[2017-06-12] MEDS: CLOTRIMAZOLE 1% 15 GM TUBE TP SCH ×2 (08:23→20:59)
[2017-06-12] MEDS: Z GUARD REMEDY 4 OZ OINT TP SCH ×2 (08:23→21:00)
[2017-06-12] MEDS: HYDROGEN PEROXIDE 480 ML BOTTLE TP SCH ×2 (11:00→20:59)
[2017-06-12] MEDS: CHOLECALCIFEROL 1,000 UNIT TABLET (VIT D3) GT SCH (20:58)
[2017-06-12] MEDS: POLYETHYLENE GLYCOL 3350 17 GM POWD.PACK GT SCH (21:00)
[2017-06-12 23:45] VITALS: BP 94/56
[2017-06-13] MEDS: ALBUTEROL FS 2.5 MG/3 ML VIAL.NEB NEB SCH ×4 (01:13→19:30)
[2017-06-13] MEDS: CHLORHEXIDINE GLUCONATE 15 ML UDC MM SCH ×2 (05:36→17:51)
[2017-06-13] MEDS: POLYVINYL ALCOHOL 15 ML BOTTLE EACHEYE SCH ×4 (05:36→23:26)
[2017-06-13 07:56] VITALS: BP 111/55
[2017-06-13] MEDS: LEVETIRACETAM SOL (5 ML) 100 MG/ML UDC GT SCH ×2 (09:58→20:26)
[2017-06-13] MEDS: SENNOSIDES 8.6 MG TABLET GT SCH ×2 (09:58→20:26)
[2017-06-13] MEDS: FOLIC ACID 1 MG TABLET GT SCH ×2 (09:58→17:50)
[2017-06-13] MEDS: BACLOFEN (10 MG) 10 MG TABLET GT SCH ×3 (09:58→17:50)
[2017-06-13] MEDS: CARBAMAZEPINE 100 MG/5 ML GT SCH ×3 (09:58→17:50)
[2017-06-13] MEDS: NYSTATIN TOP POWDER 15 GM BOTTLE TP SCH ×2 (09:59→17:50)
[2017-06-13] MEDS: SERTRALINE HCL 25 MG TABLET GT SCH (09:59)
[2017-06-13] MEDS: HYDROGEN PEROXIDE 480 ML BOTTLE TP SCH ×2 (09:59→20:27)
[2017-06-13] MEDS: HEPARIN SODIUM, PORCINE 5000 UNITS/1 ML VIAL SQ SCH ×2 (09:59→20:27)
--- NOTE | 2017-06-13 11:05 | NUR ---
Seen and examined by Dr. Aguilar, NNO given. Resident up in her wheelchair in activity room stable no s/s of distress.
[2017-06-13 19:51] VITALS: BP 103/63
[2017-06-13] MEDS: CHOLECALCIFEROL 1,000 UNIT TABLET (VIT D3) GT SCH (20:26)
[2017-06-13] MEDS: POLYETHYLENE GLYCOL 3350 17 GM POWD.PACK GT SCH (22:21)
[2017-06-14] MEDS: ALBUTEROL FS 2.5 MG/3 ML VIAL.NEB NEB SCH ×4 (01:09→20:14)
[2017-06-14] MEDS: POLYVINYL ALCOHOL 15 ML BOTTLE EACHEYE SCH ×3 (05:13→17:47)
[2017-06-14] MEDS: CHLORHEXIDINE GLUCONATE 15 ML UDC MM SCH ×2 (05:13→17:47)
[2017-06-14 07:38] VITALS: BP 108/47
[2017-06-14] MEDS: NYSTATIN TOP POWDER 15 GM BOTTLE TP SCH ×2 (09:00→17:47)
[2017-06-14] MEDS: LEVETIRACETAM SOL (5 ML) 100 MG/ML UDC GT SCH ×2 (09:00→21:06)
[2017-06-14] MEDS: FOLIC ACID 1 MG TABLET GT SCH ×2 (09:00→17:47)
[2017-06-14] MEDS: SENNOSIDES 8.6 MG TABLET GT SCH ×2 (09:00→21:06)
[2017-06-14] MEDS: HEPARIN SODIUM, PORCINE 5000 UNITS/1 ML VIAL SQ SCH ×2 (09:00→21:07)
[2017-06-14] MEDS: BACLOFEN (10 MG) 10 MG TABLET GT SCH ×3 (09:00→17:47)
[2017-06-14] MEDS: HYDROGEN PEROXIDE 480 ML BOTTLE TP SCH ×2 (09:00→21:07)
[2017-06-14] MEDS: CARBAMAZEPINE 100 MG/5 ML GT SCH ×3 (09:00→17:47)
[2017-06-14] MEDS: SERTRALINE HCL 25 MG TABLET GT SCH (09:00)
[2017-06-14] MEDS: CHOLECALCIFEROL 1,000 UNIT TABLET (VIT D3) GT SCH (21:06)
[2017-06-14] MEDS: POLYETHYLENE GLYCOL 3350 17 GM POWD.PACK GT SCH (21:07)
[2017-06-14 21:38] VITALS: BP 102/62
[2017-06-15] MEDS: POLYVINYL ALCOHOL 15 ML BOTTLE EACHEYE SCH ×4 (00:08→17:55)
[2017-06-15] MEDS: ALBUTEROL FS 2.5 MG/3 ML VIAL.NEB NEB SCH ×4 (02:02→19:28)
[2017-06-15] MEDS: CHLORHEXIDINE GLUCONATE 15 ML UDC MM SCH ×2 (05:33→17:55)
[2017-06-15] MEDS: SERTRALINE HCL 25 MG TABLET GT SCH (08:24)
[2017-06-15] MEDS: LEVETIRACETAM SOL (5 ML) 100 MG/ML UDC GT SCH ×2 (08:24→21:15)
[2017-06-15] MEDS: SENNOSIDES 8.6 MG TABLET GT SCH ×2 (08:24→21:15)
[2017-06-15] MEDS: CARBAMAZEPINE 100 MG/5 ML GT SCH ×3 (08:24→17:55)
[2017-06-15] MEDS: BACLOFEN (10 MG) 10 MG TABLET GT SCH ×3 (08:24→17:55)
[2017-06-15] MEDS: FOLIC ACID 1 MG TABLET GT SCH ×2 (08:24→17:55)
[2017-06-15] MEDS: HEPARIN SODIUM, PORCINE 5000 UNITS/1 ML VIAL SQ SCH ×2 (08:25→21:15)
[2017-06-15] MEDS: HYDROGEN PEROXIDE 480 ML BOTTLE TP SCH ×2 (09:00→21:16)
[2017-06-15] MEDS: NYSTATIN TOP POWDER 15 GM BOTTLE TP SCH ×2 (09:00→17:55)
[2017-06-15 11:02] VITALS: BP 109/70
[2017-06-15 20:00] VITALS: BP 102/54
[2017-06-15] MEDS: CHOLECALCIFEROL 1,000 UNIT TABLET (VIT D3) GT SCH (21:15)
[2017-06-15] MEDS: POLYETHYLENE GLYCOL 3350 17 GM POWD.PACK GT SCH (21:16)
[2017-06-16] MEDS: POLYVINYL ALCOHOL 15 ML BOTTLE EACHEYE SCH ×5 (00:25→23:50)
[2017-06-16] MEDS: ALBUTEROL FS 2.5 MG/3 ML VIAL.NEB NEB SCH ×4 (01:40→19:48)
[2017-06-16] MEDS: CHLORHEXIDINE GLUCONATE 15 ML UDC MM SCH ×2 (05:41→18:00)
[2017-06-16 08:09] VITALS: BP 111/44
[2017-06-16] MEDS: FOLIC ACID 1 MG TABLET GT SCH ×2 (09:12→17:57)
[2017-06-16] MEDS: BACLOFEN (10 MG) 10 MG TABLET GT SCH ×3 (09:13→17:57)
[2017-06-16] MEDS: LEVETIRACETAM SOL (5 ML) 100 MG/ML UDC GT SCH ×2 (09:13→21:11)
[2017-06-16] MEDS: CARBAMAZEPINE 100 MG/5 ML GT SCH ×3 (09:14→17:57)
[2017-06-16] MEDS: SENNOSIDES 8.6 MG TABLET GT SCH ×2 (09:14→21:11)
[2017-06-16] MEDS: SERTRALINE HCL 25 MG TABLET GT SCH (09:15)
[2017-06-16] MEDS: HEPARIN SODIUM, PORCINE 5000 UNITS/1 ML VIAL SQ SCH ×2 (09:16→21:11)
[2017-06-16] MEDS: NYSTATIN TOP POWDER 15 GM BOTTLE TP SCH ×2 (09:16→17:57)
[2017-06-16] MEDS: HYDROGEN PEROXIDE 480 ML BOTTLE TP SCH ×2 (09:41→21:11)
[2017-06-16 20:07] VITALS: BP 106/64
[2017-06-16] MEDS: CHOLECALCIFEROL 1,000 UNIT TABLET (VIT D3) GT SCH (21:11)
[2017-06-16] MEDS: POLYETHYLENE GLYCOL 3350 17 GM POWD.PACK GT SCH (21:11)
[2017-06-17] MEDS: ALBUTEROL FS 2.5 MG/3 ML VIAL.NEB NEB SCH ×4 (01:41→19:46)
[2017-06-17] MEDS: POLYVINYL ALCOHOL 15 ML BOTTLE EACHEYE SCH ×4 (05:33→23:55)
[2017-06-17] MEDS: CHLORHEXIDINE GLUCONATE 15 ML UDC MM SCH ×2 (05:33→18:29)
[2017-06-17 07:46] VITALS: BP 123/78
[2017-06-17] MEDS: HYDROGEN PEROXIDE 480 ML BOTTLE TP SCH ×2 (09:00→21:14)
[2017-06-17] MEDS: NYSTATIN TOP POWDER 15 GM BOTTLE TP SCH ×2 (09:00→17:00)
[2017-06-17] MEDS: LEVETIRACETAM SOL (5 ML) 100 MG/ML UDC GT SCH ×2 (09:29→21:07)
[2017-06-17] MEDS: SENNOSIDES 8.6 MG TABLET GT SCH ×2 (09:29→21:07)
[2017-06-17] MEDS: BACLOFEN (10 MG) 10 MG TABLET GT SCH ×3 (09:29→17:00)
[2017-06-17] MEDS: FOLIC ACID 1 MG TABLET GT SCH ×2 (09:29→17:00)
[2017-06-17] MEDS: SERTRALINE HCL 25 MG TABLET GT SCH (09:31)
[2017-06-17] MEDS: CARBAMAZEPINE 100 MG/5 ML GT SCH ×3 (09:31→17:00)
[2017-06-17] MEDS: HEPARIN SODIUM, PORCINE 5000 UNITS/1 ML VIAL SQ SCH ×2 (09:34→21:07)
[2017-06-17 19:53] VITALS: BP 109/60
[2017-06-17] MEDS: CHOLECALCIFEROL 1,000 UNIT TABLET (VIT D3) GT SCH (21:07)
[2017-06-17] MEDS: POLYETHYLENE GLYCOL 3350 17 GM POWD.PACK GT SCH (21:07)
[2017-06-18] MEDS: ALBUTEROL FS 2.5 MG/3 ML VIAL.NEB NEB SCH ×4 (01:30→19:18)
[2017-06-18] MEDS: POLYVINYL ALCOHOL 15 ML BOTTLE EACHEYE SCH ×3 (05:53→17:51)
[2017-06-18] MEDS: CHLORHEXIDINE GLUCONATE 15 ML UDC MM SCH ×2 (05:54→17:51)
[2017-06-18 07:39] VITALS: BP 125/64
[2017-06-18] MEDS: SENNOSIDES 8.6 MG TABLET GT SCH ×2 (09:30→21:50)
[2017-06-18] MEDS: BACLOFEN (10 MG) 10 MG TABLET GT SCH ×3 (09:30→17:51)
[2017-06-18] MEDS: LEVETIRACETAM SOL (5 ML) 100 MG/ML UDC GT SCH ×2 (09:30→21:50)
[2017-06-18] MEDS: FOLIC ACID 1 MG TABLET GT SCH ×2 (09:30→17:51)
[2017-06-18] MEDS: CARBAMAZEPINE 100 MG/5 ML GT SCH ×3 (09:31→17:51)
[2017-06-18] MEDS: SERTRALINE HCL 25 MG TABLET GT SCH (09:31)
[2017-06-18] MEDS: HEPARIN SODIUM, PORCINE 5000 UNITS/1 ML VIAL SQ SCH ×2 (09:31→21:50)
[2017-06-18] MEDS: HYDROGEN PEROXIDE 480 ML BOTTLE TP SCH ×2 (09:31→21:51)
[2017-06-18] MEDS: NYSTATIN TOP POWDER 15 GM BOTTLE TP SCH ×2 (09:31→17:51)
--- NOTE | 2017-06-18 09:34 | NUR ---
Informed resident's mother of IDT meeting tomorrow June 19, 2017 from 12:30-1:30pm. She stated that she has a doctor's appointment tomorrow and will not be able to attend.
[2017-06-18] MEDS ORDERED: ACETAMINOPHEN 650 MG/20 ML UDC- FOR SA PATIENTS ONLY GT PRN (21:00)
[2017-06-18 21:27] VITALS: BP 116/73
[2017-06-18] MEDS: CHOLECALCIFEROL 1,000 UNIT TABLET (VIT D3) GT SCH (21:50)
[2017-06-18] MEDS: POLYETHYLENE GLYCOL 3350 17 GM POWD.PACK GT SCH (21:51)
[2017-06-18] MEDS: Z GUARD REMEDY 4 OZ OINT TP SCH (21:51)
[2017-06-19] MEDS: POLYVINYL ALCOHOL 15 ML BOTTLE EACHEYE SCH ×5 (00:23→23:45)
[2017-06-19] MEDS: ALBUTEROL FS 2.5 MG/3 ML VIAL.NEB NEB SCH ×4 (01:29→19:43)
[2017-06-19] MEDS: CHLORHEXIDINE GLUCONATE 15 ML UDC MM SCH ×2 (05:15→17:00)
[2017-06-19 07:33] VITALS: BP 117/70
[2017-06-19] MEDS: HEPARIN SODIUM, PORCINE 5000 UNITS/1 ML VIAL SQ SCH ×2 (08:08→21:05)
[2017-06-19] MEDS: FOLIC ACID 1 MG TABLET GT SCH ×2 (08:09→16:47)
[2017-06-19] MEDS: LEVETIRACETAM SOL (5 ML) 100 MG/ML UDC GT SCH ×2 (08:10→21:04)
[2017-06-19] MEDS: BACLOFEN (10 MG) 10 MG TABLET GT SCH ×3 (08:10→16:47)
[2017-06-19] MEDS: SENNOSIDES 8.6 MG TABLET GT SCH ×2 (08:11→21:05)
[2017-06-19] MEDS: CARBAMAZEPINE 100 MG/5 ML GT SCH ×3 (08:11→16:48)
[2017-06-19] MEDS: HYDROGEN PEROXIDE 480 ML BOTTLE TP SCH ×2 (08:11→21:05)
[2017-06-19] MEDS: Z GUARD REMEDY 4 OZ OINT TP SCH ×2 (08:11→21:05)
[2017-06-19] MEDS: NYSTATIN TOP POWDER 15 GM BOTTLE TP SCH ×2 (08:11→16:48)
[2017-06-19] MEDS: SERTRALINE HCL 25 MG TABLET GT SCH (08:11)
--- NOTE | 2017-06-19 15:06 | NUR ---
INTERDISCIPLINARY PLAN OF CARE CONFERENCE was held today. Resident's mother or father unable to attend. New orders were reviewed. Dr. Lubin and the interdisciplinary team reviewed the current plan of care in detail. Resident's weight is stable. She has been coughing while eating but current feeding order will remain the same. No new orders were given during IDT meeting.
[2017-06-19 19:46] VITALS: BP 109/55
[2017-06-19] MEDS: CHOLECALCIFEROL 1,000 UNIT TABLET (VIT D3) GT SCH (21:05)
[2017-06-19] MEDS: POLYETHYLENE GLYCOL 3350 17 GM POWD.PACK GT SCH (21:05)
[2017-06-20] MEDS: ALBUTEROL FS 2.5 MG/3 ML VIAL.NEB NEB SCH ×4 (01:15→19:14)
[2017-06-20] MEDS: POLYVINYL ALCOHOL 15 ML BOTTLE EACHEYE SCH ×2 (05:38→12:00)
[2017-06-20] MEDS: CHLORHEXIDINE GLUCONATE 15 ML UDC MM SCH (05:39)
[2017-06-20] MEDS: LEVETIRACETAM SOL (5 ML) 100 MG/ML UDC GT SCH ×2 (08:26→21:19)
[2017-06-20] MEDS: FOLIC ACID 1 MG TABLET GT SCH ×2 (08:26→17:00)
[2017-06-20] MEDS: SERTRALINE HCL 25 MG TABLET GT SCH (08:27)
[2017-06-20] MEDS: BACLOFEN (10 MG) 10 MG TABLET GT SCH ×3 (08:27→17:00)
[2017-06-20] MEDS: CARBAMAZEPINE 100 MG/5 ML GT SCH ×3 (08:27→17:00)
[2017-06-20] MEDS: SENNOSIDES 8.6 MG TABLET GT SCH ×2 (08:27→21:19)
[2017-06-20] MEDS: HEPARIN SODIUM, PORCINE 5000 UNITS/1 ML VIAL SQ SCH ×2 (08:28→21:20)
[2017-06-20] MEDS: Z GUARD REMEDY 4 OZ OINT TP SCH ×2 (09:00→21:20)
[2017-06-20] MEDS: NYSTATIN TOP POWDER 15 GM BOTTLE TP SCH ×2 (09:00→17:00)
[2017-06-20] MEDS: HYDROGEN PEROXIDE 480 ML BOTTLE TP SCH ×2 (09:00→21:20)
[2017-06-20 12:52] VITALS: BP 133/78
[2017-06-20 20:34] VITALS: BP 135/57
[2017-06-20] MEDS: CHOLECALCIFEROL 1,000 UNIT TABLET (VIT D3) GT SCH (21:19)
[2017-06-20] MEDS: POLYETHYLENE GLYCOL 3350 17 GM POWD.PACK GT SCH (21:20)
[2017-06-21] MEDS: POLYVINYL ALCOHOL 15 ML BOTTLE EACHEYE SCH ×5 (00:50→23:47)
[2017-06-21] MEDS: ALBUTEROL FS 2.5 MG/3 ML VIAL.NEB NEB SCH ×4 (01:20→20:11)
[2017-06-21] MEDS: CHLORHEXIDINE GLUCONATE 15 ML UDC MM SCH ×2 (05:46→17:57)
[2017-06-21 08:00] VITALS: BP 137/53
[2017-06-21] MEDS: SERTRALINE HCL 25 MG TABLET GT SCH (09:57)
[2017-06-21] MEDS: SENNOSIDES 8.6 MG TABLET GT SCH ×2 (09:57→21:08)
[2017-06-21] MEDS: LEVETIRACETAM SOL (5 ML) 100 MG/ML UDC GT SCH ×2 (09:57→21:08)
[2017-06-21] MEDS: CARBAMAZEPINE 100 MG/5 ML GT SCH ×3 (09:57→17:57)
[2017-06-21] MEDS: FOLIC ACID 1 MG TABLET GT SCH ×2 (09:58→17:57)
[2017-06-21] MEDS: HYDROGEN PEROXIDE 480 ML BOTTLE TP SCH ×2 (09:58→21:09)
[2017-06-21] MEDS: NYSTATIN TOP POWDER 15 GM BOTTLE TP SCH ×2 (09:58→17:57)
[2017-06-21] MEDS: Z GUARD REMEDY 4 OZ OINT TP SCH ×2 (09:58→21:09)
[2017-06-21] MEDS: BACLOFEN (10 MG) 10 MG TABLET GT SCH ×3 (09:58→17:57)
[2017-06-21] MEDS: HEPARIN SODIUM, PORCINE 5000 UNITS/1 ML VIAL SQ SCH ×2 (09:58→21:08)
[2017-06-21 19:29] VITALS: BP 119/70
[2017-06-21] MEDS: CHOLECALCIFEROL 1,000 UNIT TABLET (VIT D3) GT SCH (21:08)
[2017-06-21] MEDS: POLYETHYLENE GLYCOL 3350 17 GM POWD.PACK GT SCH (21:09)
[2017-06-22] MEDS: ALBUTEROL FS 2.5 MG/3 ML VIAL.NEB NEB SCH ×4 (01:06→19:35)
[2017-06-22] MEDS: CHLORHEXIDINE GLUCONATE 15 ML UDC MM SCH ×2 (05:39→17:18)
[2017-06-22] MEDS: POLYVINYL ALCOHOL 15 ML BOTTLE EACHEYE SCH ×3 (05:39→17:18)
[2017-06-22 07:38] VITALS: BP 113/52
[2017-06-22] MEDS: HYDROGEN PEROXIDE 480 ML BOTTLE TP SCH ×2 (08:17→21:11)
[2017-06-22] MEDS: SENNOSIDES 8.6 MG TABLET GT SCH ×2 (08:17→21:10)
[2017-06-22] MEDS: CARBAMAZEPINE 100 MG/5 ML GT SCH ×3 (08:17→16:51)
[2017-06-22] MEDS: NYSTATIN TOP POWDER 15 GM BOTTLE TP SCH ×2 (08:17→16:51)
[2017-06-22] MEDS: LEVETIRACETAM SOL (5 ML) 100 MG/ML UDC GT SCH ×2 (08:17→21:10)
[2017-06-22] MEDS: HEPARIN SODIUM, PORCINE 5000 UNITS/1 ML VIAL SQ SCH ×2 (08:17→21:11)
[2017-06-22] MEDS: SERTRALINE HCL 25 MG TABLET GT SCH (08:17)
[2017-06-22] MEDS: BACLOFEN (10 MG) 10 MG TABLET GT SCH ×3 (08:17→16:51)
[2017-06-22] MEDS: FOLIC ACID 1 MG TABLET GT SCH ×2 (08:17→16:51)
[2017-06-22] MEDS: Z GUARD REMEDY 4 OZ OINT TP SCH ×2 (08:18→21:11)
[2017-06-22 19:52] VITALS: BP 108/68
[2017-06-22] MEDS: CHOLECALCIFEROL 1,000 UNIT TABLET (VIT D3) GT SCH (21:10)
[2017-06-22] MEDS: POLYETHYLENE GLYCOL 3350 17 GM POWD.PACK GT SCH (21:11)
[2017-06-23] MEDS: POLYVINYL ALCOHOL 15 ML BOTTLE EACHEYE SCH ×5 (00:18→23:45)
[2017-06-23] MEDS: ALBUTEROL FS 2.5 MG/3 ML VIAL.NEB NEB SCH ×4 (02:18→19:34)
[2017-06-23] MEDS: CHLORHEXIDINE GLUCONATE 15 ML UDC MM SCH ×2 (05:37→17:07)
[2017-06-23 07:58] VITALS: BP_SYST 119; BP_SYST 134; BP_DIAS 75; BP_DIAS 80
[2017-06-23] MEDS: LEVETIRACETAM SOL (5 ML) 100 MG/ML UDC GT SCH ×2 (08:23→21:12)
[2017-06-23] MEDS: SENNOSIDES 8.6 MG TABLET GT SCH ×2 (08:23→21:12)
[2017-06-23] MEDS: FOLIC ACID 1 MG TABLET GT SCH ×2 (08:23→16:51)
[2017-06-23] MEDS: HYDROGEN PEROXIDE 480 ML BOTTLE TP SCH ×2 (08:23→21:13)
[2017-06-23] MEDS: BACLOFEN (10 MG) 10 MG TABLET GT SCH ×3 (08:23→16:51)
[2017-06-23] MEDS: CARBAMAZEPINE 100 MG/5 ML GT SCH ×3 (08:23→16:51)
[2017-06-23] MEDS: SERTRALINE HCL 25 MG TABLET GT SCH (08:23)
[2017-06-23] MEDS: HEPARIN SODIUM, PORCINE 5000 UNITS/1 ML VIAL SQ SCH ×2 (08:23→21:12)
[2017-06-23] MEDS: Z GUARD REMEDY 4 OZ OINT TP SCH ×2 (08:23→21:13)
[2017-06-23] MEDS: NYSTATIN TOP POWDER 15 GM BOTTLE TP SCH ×2 (08:23→16:51)
[2017-06-23 20:06] VITALS: BP 111/64
[2017-06-23] MEDS: CHOLECALCIFEROL 1,000 UNIT TABLET (VIT D3) GT SCH (21:12)
[2017-06-23] MEDS: POLYETHYLENE GLYCOL 3350 17 GM POWD.PACK GT SCH (22:39)
[2017-06-24] MEDS: ALBUTEROL FS 2.5 MG/3 ML VIAL.NEB NEB SCH ×5 (02:09→19:20)
[2017-06-24] MEDS: POLYVINYL ALCOHOL 15 ML BOTTLE EACHEYE SCH ×4 (05:27→23:33)
[2017-06-24] MEDS: CHLORHEXIDINE GLUCONATE 15 ML UDC MM SCH ×2 (05:27→17:43)
[2017-06-24 08:00] VITALS: BP 119/63
[2017-06-24] MEDS: HYDROGEN PEROXIDE 480 ML BOTTLE TP SCH ×2 (09:04→21:09)
[2017-06-24] MEDS: SERTRALINE HCL 25 MG TABLET GT SCH (09:04)
[2017-06-24] MEDS: SENNOSIDES 8.6 MG TABLET GT SCH ×2 (09:04→21:08)
[2017-06-24] MEDS: FOLIC ACID 1 MG TABLET GT SCH ×2 (09:04→16:44)
[2017-06-24] MEDS: BACLOFEN (10 MG) 10 MG TABLET GT SCH ×3 (09:04→16:44)
[2017-06-24] MEDS: LEVETIRACETAM SOL (5 ML) 100 MG/ML UDC GT SCH ×2 (09:04→21:08)
[2017-06-24] MEDS: HEPARIN SODIUM, PORCINE 5000 UNITS/1 ML VIAL SQ SCH ×2 (09:04→21:09)
[2017-06-24] MEDS: CARBAMAZEPINE 100 MG/5 ML GT SCH ×3 (09:04→16:44)
[2017-06-24] MEDS: NYSTATIN TOP POWDER 15 GM BOTTLE TP SCH ×2 (09:05→16:44)
[2017-06-24] MEDS: Z GUARD REMEDY 4 OZ OINT TP SCH ×2 (09:05→21:09)
--- NOTE | 2017-06-24 12:15 | NUR ---
Resident's mother attended the support group meeting that was held today. She expressed dissatisfaction with DOMESTIC MAID that was assigned to her and was able to share her concerns during the meeting. She reinforced the schedule that she would like the resident to have (cleaning at 9/9:30AM, wearing braces until 1/1:30PM (put back to bed at this time as well), repositioning at 3pm and feeding of her snack during this time. SW communicated this to subacute estimating manager Yajaira and to the charge nurse. SW reminded mother that CNO still wants to meet with the family and mother stated that she will talk to her to see when he can come to the hospital to meet with him. SW to follow up. Mother is requesting certain staff members to work with her daughter and estimating manager will follow up with CNO.
[2017-06-24 20:00] VITALS: BP 105/57
[2017-06-24] MEDS: CHOLECALCIFEROL 1,000 UNIT TABLET (VIT D3) GT SCH (21:08)
[2017-06-24] MEDS: POLYETHYLENE GLYCOL 3350 17 GM POWD.PACK GT SCH (21:09)
[2017-06-25] MEDS: ALBUTEROL FS 2.5 MG/3 ML VIAL.NEB NEB SCH ×4 (00:46→20:26)
[2017-06-25] MEDS: POLYVINYL ALCOHOL 15 ML BOTTLE EACHEYE SCH ×4 (05:16→23:21)
[2017-06-25] MEDS: CHLORHEXIDINE GLUCONATE 15 ML UDC MM SCH ×2 (05:16→17:01)
[2017-06-25 07:43] VITALS: BP 138/93
[2017-06-25] MEDS: CARBAMAZEPINE 100 MG/5 ML GT SCH ×3 (09:00→17:01)
[2017-06-25] MEDS: NYSTATIN TOP POWDER 15 GM BOTTLE TP SCH ×2 (09:00→17:01)
[2017-06-25] MEDS: FOLIC ACID 1 MG TABLET GT SCH ×2 (09:00→17:01)
[2017-06-25] MEDS: Z GUARD REMEDY 4 OZ OINT TP SCH ×2 (09:00→20:15)
[2017-06-25] MEDS: HYDROGEN PEROXIDE 480 ML BOTTLE TP SCH ×2 (09:00→20:15)
[2017-06-25] MEDS: LEVETIRACETAM SOL (5 ML) 100 MG/ML UDC GT SCH ×2 (09:00→20:15)
[2017-06-25] MEDS: SERTRALINE HCL 25 MG TABLET GT SCH (09:00)
[2017-06-25] MEDS: SENNOSIDES 8.6 MG TABLET GT SCH ×2 (09:00→20:15)
[2017-06-25] MEDS: BACLOFEN (10 MG) 10 MG TABLET GT SCH ×3 (09:00→17:01)
[2017-06-25] MEDS: HEPARIN SODIUM, PORCINE 5000 UNITS/1 ML VIAL SQ SCH ×2 (09:00→20:15)
[2017-06-25 20:03] VITALS: BP 113/77
[2017-06-25] MEDS: CHOLECALCIFEROL 1,000 UNIT TABLET (VIT D3) GT SCH (20:15)
[2017-06-25] MEDS: POLYETHYLENE GLYCOL 3350 17 GM POWD.PACK GT SCH (21:14)
[2017-06-26] MEDS: ALBUTEROL FS 2.5 MG/3 ML VIAL.NEB NEB SCH ×4 (01:30→19:30)
[2017-06-26] MEDS: CHLORHEXIDINE GLUCONATE 15 ML UDC MM SCH ×2 (05:29→17:42)
[2017-06-26] MEDS: POLYVINYL ALCOHOL 15 ML BOTTLE EACHEYE SCH ×4 (05:29→23:20)
[2017-06-26 07:44] VITALS: BP 113/58
[2017-06-26] MEDS: HEPARIN SODIUM, PORCINE 5000 UNITS/1 ML VIAL SQ SCH ×2 (09:00→21:08)
[2017-06-26] MEDS: SENNOSIDES 8.6 MG TABLET GT SCH ×2 (09:00→21:08)
[2017-06-26] MEDS: SERTRALINE HCL 25 MG TABLET GT SCH (09:00)
[2017-06-26] MEDS: FOLIC ACID 1 MG TABLET GT SCH ×2 (09:00→17:42)
[2017-06-26] MEDS: NYSTATIN TOP POWDER 15 GM BOTTLE TP SCH ×2 (09:00→17:42)
[2017-06-26] MEDS: BACLOFEN (10 MG) 10 MG TABLET GT SCH ×3 (09:00→17:42)
[2017-06-26] MEDS: CARBAMAZEPINE 100 MG/5 ML GT SCH ×3 (09:00→17:42)
[2017-06-26] MEDS: HYDROGEN PEROXIDE 480 ML BOTTLE TP SCH ×2 (09:00→21:08)
[2017-06-26] MEDS: LEVETIRACETAM SOL (5 ML) 100 MG/ML UDC GT SCH ×2 (09:00→21:08)
[2017-06-26] MEDS: Z GUARD REMEDY 4 OZ OINT TP SCH ×2 (09:00→21:09)
--- NOTE | 2017-06-26 14:06 | NUR ---
Seen and examined by Dr. Elton Aguilar, NNO given.
[2017-06-26 20:04] VITALS: BP 127/65
[2017-06-26] MEDS: CHOLECALCIFEROL 1,000 UNIT TABLET (VIT D3) GT SCH (21:08)
[2017-06-26] MEDS: POLYETHYLENE GLYCOL 3350 17 GM POWD.PACK GT SCH (21:09)
[2017-06-27] MEDS: ALBUTEROL FS 2.5 MG/3 ML VIAL.NEB NEB SCH ×4 (02:50→19:47)
[2017-06-27] MEDS: MAGNESIUM HYDROXIDE 30 ML UDC GT PRN (05:07)
[2017-06-27] MEDS: POLYVINYL ALCOHOL 15 ML BOTTLE EACHEYE SCH ×4 (05:07→23:20)
[2017-06-27] MEDS: CHLORHEXIDINE GLUCONATE 15 ML UDC MM SCH ×2 (05:07→17:46)
[2017-06-27 07:37] VITALS: BP 113/62
[2017-06-27] MEDS: SERTRALINE HCL 25 MG TABLET GT SCH (08:48)
[2017-06-27] MEDS: LEVETIRACETAM SOL (5 ML) 100 MG/ML UDC GT SCH ×2 (08:48→20:06)
[2017-06-27] MEDS: FOLIC ACID 1 MG TABLET GT SCH ×2 (08:48→16:49)
[2017-06-27] MEDS: SENNOSIDES 8.6 MG TABLET GT SCH ×2 (08:48→20:06)
[2017-06-27] MEDS: CARBAMAZEPINE 100 MG/5 ML GT SCH ×3 (08:48→16:49)
[2017-06-27] MEDS: BACLOFEN (10 MG) 10 MG TABLET GT SCH ×3 (08:48→16:49)
[2017-06-27] MEDS: HEPARIN SODIUM, PORCINE 5000 UNITS/1 ML VIAL SQ SCH ×2 (08:49→20:11)
[2017-06-27] MEDS: Z GUARD REMEDY 4 OZ OINT TP SCH ×2 (08:49→20:11)
[2017-06-27] MEDS: HYDROGEN PEROXIDE 480 ML BOTTLE TP SCH ×2 (08:49→20:11)
[2017-06-27] MEDS: NYSTATIN TOP POWDER 15 GM BOTTLE TP SCH ×2 (08:49→16:49)
[2017-06-27 20:02] VITALS: BP 111/61
[2017-06-27] MEDS: CHOLECALCIFEROL 1,000 UNIT TABLET (VIT D3) GT SCH (20:10)
[2017-06-27] MEDS: POLYETHYLENE GLYCOL 3350 17 GM POWD.PACK GT SCH (21:25)
[2017-06-28] MEDS: ALBUTEROL FS 2.5 MG/3 ML VIAL.NEB NEB SCH ×4 (02:01→19:54)
[2017-06-28] MEDS: CHLORHEXIDINE GLUCONATE 15 ML UDC MM SCH ×2 (05:28→18:37)
[2017-06-28] MEDS: POLYVINYL ALCOHOL 15 ML BOTTLE EACHEYE SCH ×4 (05:28→23:15)
[2017-06-28 08:09] VITALS: BP 122/76
[2017-06-28] MEDS: FOLIC ACID 1 MG TABLET GT SCH ×2 (09:01→16:22)
[2017-06-28] MEDS: SENNOSIDES 8.6 MG TABLET GT SCH ×2 (09:02→21:06)
[2017-06-28] MEDS: LEVETIRACETAM SOL (5 ML) 100 MG/ML UDC GT SCH ×2 (09:02→21:06)
[2017-06-28] MEDS: BACLOFEN (10 MG) 10 MG TABLET GT SCH ×3 (09:02→16:22)
[2017-06-28] MEDS: SERTRALINE HCL 25 MG TABLET GT SCH (09:04)
[2017-06-28] MEDS: CARBAMAZEPINE 100 MG/5 ML GT SCH ×3 (09:04→16:22)
[2017-06-28] MEDS: NYSTATIN TOP POWDER 15 GM BOTTLE TP SCH ×2 (09:10→16:22)
[2017-06-28] MEDS: HYDROGEN PEROXIDE 480 ML BOTTLE TP SCH ×2 (09:10→21:07)
[2017-06-28] MEDS: Z GUARD REMEDY 4 OZ OINT TP SCH ×2 (09:10→21:07)
[2017-06-28] MEDS: HEPARIN SODIUM, PORCINE 5000 UNITS/1 ML VIAL SQ SCH ×2 (09:11→21:07)
--- NOTE | 2017-06-28 13:21 | NUR ---
PT OUT OF ROOM. UNABLE TO ADMINISTED HHN TX
[2017-06-28 19:34] VITALS: BP 111/60
[2017-06-28] MEDS: CHOLECALCIFEROL 1,000 UNIT TABLET (VIT D3) GT SCH (21:06)
[2017-06-28] MEDS: POLYETHYLENE GLYCOL 3350 17 GM POWD.PACK GT SCH (21:07)
[2017-06-29] MEDS: ALBUTEROL FS 2.5 MG/3 ML VIAL.NEB NEB SCH ×4 (01:58→19:49)
[2017-06-29] MEDS: CHLORHEXIDINE GLUCONATE 15 ML UDC MM SCH ×2 (05:30→17:15)
[2017-06-29] MEDS: POLYVINYL ALCOHOL 15 ML BOTTLE EACHEYE SCH ×4 (05:30→23:26)
[2017-06-29 08:07] VITALS: BP 95/54
[2017-06-29] MEDS: LEVETIRACETAM SOL (5 ML) 100 MG/ML UDC GT SCH ×2 (08:17→20:37)
[2017-06-29] MEDS: FOLIC ACID 1 MG TABLET GT SCH ×2 (08:17→17:15)
[2017-06-29] MEDS: SERTRALINE HCL 25 MG TABLET GT SCH (08:17)
[2017-06-29] MEDS: Z GUARD REMEDY 4 OZ OINT TP SCH ×2 (08:17→20:40)
[2017-06-29] MEDS: BACLOFEN (10 MG) 10 MG TABLET GT SCH ×3 (08:17→17:15)
[2017-06-29] MEDS: CARBAMAZEPINE 100 MG/5 ML GT SCH ×3 (08:17→17:15)
[2017-06-29] MEDS: NYSTATIN TOP POWDER 15 GM BOTTLE TP SCH ×2 (08:17→17:15)
[2017-06-29] MEDS: SENNOSIDES 8.6 MG TABLET GT SCH ×2 (08:17→20:38)
[2017-06-29] MEDS: HEPARIN SODIUM, PORCINE 5000 UNITS/1 ML VIAL SQ SCH ×2 (08:17→20:40)
[2017-06-29] MEDS: HYDROGEN PEROXIDE 480 ML BOTTLE TP SCH ×2 (08:17→20:40)
[2017-06-29 19:48] VITALS: BP 110/74
[2017-06-29] MEDS: CHOLECALCIFEROL 1,000 UNIT TABLET (VIT D3) GT SCH (20:38)
[2017-06-29] MEDS: POLYETHYLENE GLYCOL 3350 17 GM POWD.PACK GT SCH (20:42)
[2017-06-30] MEDS: ALBUTEROL FS 2.5 MG/3 ML VIAL.NEB NEB SCH ×4 (01:22→19:57)
[2017-06-30] MEDS: CHLORHEXIDINE GLUCONATE 15 ML UDC MM SCH ×2 (05:13→17:12)
[2017-06-30] MEDS: POLYVINYL ALCOHOL 15 ML BOTTLE EACHEYE SCH ×3 (05:13→17:12)
[2017-06-30 07:55] VITALS: BP 118/75
[2017-06-30] MEDS: CARBAMAZEPINE 100 MG/5 ML GT SCH ×3 (08:39→16:48)
[2017-06-30] MEDS: FOLIC ACID 1 MG TABLET GT SCH ×2 (08:39→16:48)
[2017-06-30] MEDS: SENNOSIDES 8.6 MG TABLET GT SCH ×2 (08:39→20:28)
[2017-06-30] MEDS: BACLOFEN (10 MG) 10 MG TABLET GT SCH ×3 (08:39→16:48)
[2017-06-30] MEDS: LEVETIRACETAM SOL (5 ML) 100 MG/ML UDC GT SCH ×2 (08:39→20:28)
[2017-06-30] MEDS: SERTRALINE HCL 25 MG TABLET GT SCH (08:39)
[2017-06-30] MEDS: NYSTATIN TOP POWDER 15 GM BOTTLE TP SCH ×2 (08:40→16:48)
[2017-06-30] MEDS: Z GUARD REMEDY 4 OZ OINT TP SCH ×2 (08:40→20:29)
[2017-06-30] MEDS: HEPARIN SODIUM, PORCINE 5000 UNITS/1 ML VIAL SQ SCH ×2 (08:40→20:29)
[2017-06-30] MEDS: HYDROGEN PEROXIDE 480 ML BOTTLE TP SCH ×2 (08:40→20:29)
[2017-06-30 19:35] VITALS: BP 106/64
[2017-06-30] MEDS: CHOLECALCIFEROL 1,000 UNIT TABLET (VIT D3) GT SCH (20:28)
[2017-06-30] MEDS: POLYETHYLENE GLYCOL 3350 17 GM POWD.PACK GT SCH (21:45)
[2017-07-01] MEDS: ALBUTEROL FS 2.5 MG/3 ML VIAL.NEB NEB SCH ×4 (00:36→19:30)
[2017-07-01] MEDS: POLYVINYL ALCOHOL 15 ML BOTTLE EACHEYE SCH ×4 (00:53→18:48)
[2017-07-01] MEDS: CHLORHEXIDINE GLUCONATE 15 ML UDC MM SCH ×2 (05:21→18:48)
[2017-07-01 07:51] VITALS: BP 123/68
[2017-07-01] MEDS: HEPARIN SODIUM, PORCINE 5000 UNITS/1 ML VIAL SQ SCH ×2 (08:54→20:22)
[2017-07-01] MEDS: FOLIC ACID 1 MG TABLET GT SCH ×2 (09:03→16:13)
[2017-07-01] MEDS: SERTRALINE HCL 25 MG TABLET GT SCH (09:03)
[2017-07-01] MEDS: CARBAMAZEPINE 100 MG/5 ML GT SCH ×3 (09:03→16:13)
[2017-07-01] MEDS: LEVETIRACETAM SOL (5 ML) 100 MG/ML UDC GT SCH ×2 (09:03→20:22)
[2017-07-01] MEDS: SENNOSIDES 8.6 MG TABLET GT SCH ×2 (09:03→20:22)
[2017-07-01] MEDS: BACLOFEN (10 MG) 10 MG TABLET GT SCH ×3 (09:03→16:13)
[2017-07-01] MEDS: Z GUARD REMEDY 4 OZ OINT TP SCH ×2 (09:04→20:23)
[2017-07-01] MEDS: HYDROGEN PEROXIDE 480 ML BOTTLE TP SCH ×2 (09:04→20:23)
[2017-07-01] MEDS: NYSTATIN TOP POWDER 15 GM BOTTLE TP SCH ×2 (09:04→16:14)
[2017-07-01 20:20] VITALS: BP 139/62
[2017-07-01] MEDS: CHOLECALCIFEROL 1,000 UNIT TABLET (VIT D3) GT SCH (20:22)
[2017-07-01] MEDS: POLYETHYLENE GLYCOL 3350 17 GM POWD.PACK GT SCH (21:19)
[2017-07-02] MEDS: POLYVINYL ALCOHOL 15 ML BOTTLE EACHEYE SCH ×5 (00:17→23:22)
[2017-07-02] MEDS: ALBUTEROL FS 2.5 MG/3 ML VIAL.NEB NEB SCH ×4 (01:27→20:12)
[2017-07-02] MEDS: CHLORHEXIDINE GLUCONATE 15 ML UDC MM SCH ×2 (05:12→17:33)
[2017-07-02 07:58] VITALS: BP 131/84
[2017-07-02] MEDS: SENNOSIDES 8.6 MG TABLET GT SCH ×2 (08:16→20:12)
[2017-07-02] MEDS: FOLIC ACID 1 MG TABLET GT SCH ×2 (08:16→17:33)
[2017-07-02] MEDS: LEVETIRACETAM SOL (5 ML) 100 MG/ML UDC GT SCH ×2 (08:16→20:12)
[2017-07-02] MEDS: BACLOFEN (10 MG) 10 MG TABLET GT SCH ×3 (08:16→17:33)
[2017-07-02] MEDS: HEPARIN SODIUM, PORCINE 5000 UNITS/1 ML VIAL SQ SCH ×2 (08:17→20:13)
[2017-07-02] MEDS: CARBAMAZEPINE 100 MG/5 ML GT SCH ×3 (08:17→17:33)
[2017-07-02] MEDS: SERTRALINE HCL 25 MG TABLET GT SCH (08:17)
[2017-07-02] MEDS: NYSTATIN TOP POWDER 15 GM BOTTLE TP SCH ×2 (08:17→17:33)
[2017-07-02] MEDS: HYDROGEN PEROXIDE 480 ML BOTTLE TP SCH ×2 (08:17→20:13)
[2017-07-02] MEDS: Z GUARD REMEDY 4 OZ OINT TP SCH ×2 (08:18→20:13)
[2017-07-02 20:06] VITALS: BP 107/57
[2017-07-02] MEDS: CHOLECALCIFEROL 1,000 UNIT TABLET (VIT D3) GT SCH (20:12)
[2017-07-02] MEDS: POLYETHYLENE GLYCOL 3350 17 GM POWD.PACK GT SCH (21:14)
[2017-07-03] MEDS: ALBUTEROL FS 2.5 MG/3 ML VIAL.NEB NEB SCH ×4 (01:30→20:04)
[2017-07-03] MEDS: CHLORHEXIDINE GLUCONATE 15 ML UDC MM SCH ×2 (05:06→17:00)
[2017-07-03] MEDS: POLYVINYL ALCOHOL 15 ML BOTTLE EACHEYE SCH ×4 (05:06→23:03)
[2017-07-03 07:37] VITALS: BP 117/70
[2017-07-03] MEDS: SERTRALINE HCL 25 MG TABLET GT SCH (08:52)
[2017-07-03] MEDS: BACLOFEN (10 MG) 10 MG TABLET GT SCH ×3 (08:52→17:00)
[2017-07-03] MEDS: CARBAMAZEPINE 100 MG/5 ML GT SCH ×3 (08:52→17:00)
[2017-07-03] MEDS: LEVETIRACETAM SOL (5 ML) 100 MG/ML UDC GT SCH ×2 (08:52→20:20)
[2017-07-03] MEDS: FOLIC ACID 1 MG TABLET GT SCH ×2 (08:52→17:00)
[2017-07-03] MEDS: SENNOSIDES 8.6 MG TABLET GT SCH ×2 (08:52→20:20)
[2017-07-03] MEDS: HEPARIN SODIUM, PORCINE 5000 UNITS/1 ML VIAL SQ SCH ×2 (08:53→20:20)
[2017-07-03] MEDS: HYDROGEN PEROXIDE 480 ML BOTTLE TP SCH ×2 (08:53→20:20)
[2017-07-03] MEDS: NYSTATIN TOP POWDER 15 GM BOTTLE TP SCH ×2 (08:53→17:00)
[2017-07-03 20:05] VITALS: BP 128/64
[2017-07-03] MEDS: CHOLECALCIFEROL 1,000 UNIT TABLET (VIT D3) GT SCH (20:20)
[2017-07-03] MEDS: POLYETHYLENE GLYCOL 3350 17 GM POWD.PACK GT SCH (21:24)
[2017-07-03] MEDS: Z GUARD REMEDY 4 OZ OINT TP SCH (21:24)
[2017-07-04] MEDS: ALBUTEROL FS 2.5 MG/3 ML VIAL.NEB NEB SCH ×4 (01:18→19:30)
[2017-07-04] MEDS: CHLORHEXIDINE GLUCONATE 15 ML UDC MM SCH ×2 (05:15→18:19)
[2017-07-04] MEDS: POLYVINYL ALCOHOL 15 ML BOTTLE EACHEYE SCH ×4 (05:15→23:39)
[2017-07-04 07:28] VITALS: BP 121/62
[2017-07-04] MEDS: LEVETIRACETAM SOL (5 ML) 100 MG/ML UDC GT SCH ×2 (08:32→20:11)
[2017-07-04] MEDS: CARBAMAZEPINE 100 MG/5 ML GT SCH ×3 (08:32→16:49)
[2017-07-04] MEDS: SENNOSIDES 8.6 MG TABLET GT SCH ×2 (08:32→20:11)
[2017-07-04] MEDS: SERTRALINE HCL 25 MG TABLET GT SCH (08:32)
[2017-07-04] MEDS: BACLOFEN (10 MG) 10 MG TABLET GT SCH ×3 (08:32→16:49)
[2017-07-04] MEDS: FOLIC ACID 1 MG TABLET GT SCH ×2 (08:32→16:49)
[2017-07-04] MEDS: HEPARIN SODIUM, PORCINE 5000 UNITS/1 ML VIAL SQ SCH ×2 (08:36→20:11)
[2017-07-04] MEDS: NYSTATIN TOP POWDER 15 GM BOTTLE TP SCH ×2 (09:17→16:49)
[2017-07-04] MEDS: HYDROGEN PEROXIDE 480 ML BOTTLE TP SCH ×2 (09:17→20:11)
[2017-07-04] MEDS: Z GUARD REMEDY 4 OZ OINT TP SCH ×2 (09:17→20:11)
[2017-07-04 20:05] VITALS: BP 128/79
[2017-07-04] MEDS: CHOLECALCIFEROL 1,000 UNIT TABLET (VIT D3) GT SCH (20:11)
[2017-07-04] MEDS: POLYETHYLENE GLYCOL 3350 17 GM POWD.PACK GT SCH (21:01)
[2017-07-05] MEDS: ALBUTEROL FS 2.5 MG/3 ML VIAL.NEB NEB SCH ×4 (01:54→20:22)
[2017-07-05] MEDS: CHLORHEXIDINE GLUCONATE 15 ML UDC MM SCH ×2 (05:20→17:32)
[2017-07-05] MEDS: POLYVINYL ALCOHOL 15 ML BOTTLE EACHEYE SCH ×4 (05:20→23:14)
[2017-07-05 07:34] VITALS: BP 126/72
[2017-07-05] MEDS: FOLIC ACID 1 MG TABLET GT SCH ×2 (08:12→16:17)
[2017-07-05] MEDS: SERTRALINE HCL 25 MG TABLET GT SCH (08:12)
[2017-07-05] MEDS: HEPARIN SODIUM, PORCINE 5000 UNITS/1 ML VIAL SQ SCH ×2 (08:12→20:08)
[2017-07-05] MEDS: CARBAMAZEPINE 100 MG/5 ML GT SCH ×3 (08:12→16:17)
[2017-07-05] MEDS: SENNOSIDES 8.6 MG TABLET GT SCH ×2 (08:12→20:07)
[2017-07-05] MEDS: LEVETIRACETAM SOL (5 ML) 100 MG/ML UDC GT SCH ×2 (08:12→20:07)
[2017-07-05] MEDS: BACLOFEN (10 MG) 10 MG TABLET GT SCH ×3 (08:12→16:17)
[2017-07-05] MEDS: Z GUARD REMEDY 4 OZ OINT TP SCH ×2 (08:13→20:08)
[2017-07-05] MEDS: HYDROGEN PEROXIDE 480 ML BOTTLE TP SCH ×2 (08:13→20:08)
[2017-07-05] MEDS: NYSTATIN TOP POWDER 15 GM BOTTLE TP SCH ×2 (08:13→16:17)
[2017-07-05] MEDS: CHOLECALCIFEROL 1,000 UNIT TABLET (VIT D3) GT SCH (20:07)
[2017-07-05 21:00] VITALS: BP 131/58
[2017-07-05] MEDS: POLYETHYLENE GLYCOL 3350 17 GM POWD.PACK GT SCH (21:28)
[2017-07-06] MEDS: ALBUTEROL FS 2.5 MG/3 ML VIAL.NEB NEB SCH ×4 (01:30→20:17)
[2017-07-06] MEDS: POLYVINYL ALCOHOL 15 ML BOTTLE EACHEYE SCH ×4 (05:09→23:05)
[2017-07-06] MEDS: CHLORHEXIDINE GLUCONATE 15 ML UDC MM SCH ×2 (05:09→17:49)
[2017-07-06 08:13] VITALS: BP 118/73
[2017-07-06] MEDS: LEVETIRACETAM SOL (5 ML) 100 MG/ML UDC GT SCH ×2 (08:27→20:14)
[2017-07-06] MEDS: SERTRALINE HCL 25 MG TABLET GT SCH (08:27)
[2017-07-06] MEDS: FOLIC ACID 1 MG TABLET GT SCH ×2 (08:27→17:49)
[2017-07-06] MEDS: SENNOSIDES 8.6 MG TABLET GT SCH ×2 (08:27→20:14)
[2017-07-06] MEDS: CARBAMAZEPINE 100 MG/5 ML GT SCH ×3 (08:27→17:49)
[2017-07-06] MEDS: BACLOFEN (10 MG) 10 MG TABLET GT SCH ×3 (08:27→17:49)
[2017-07-06] MEDS: NYSTATIN TOP POWDER 15 GM BOTTLE TP SCH ×2 (08:28→17:49)
[2017-07-06] MEDS: HEPARIN SODIUM, PORCINE 5000 UNITS/1 ML VIAL SQ SCH ×2 (08:28→20:15)
[2017-07-06] MEDS: HYDROGEN PEROXIDE 480 ML BOTTLE TP SCH ×2 (08:28→20:15)
[2017-07-06] MEDS: Z GUARD REMEDY 4 OZ OINT TP SCH ×2 (08:28→20:15)
[2017-07-06] MEDS: CHOLECALCIFEROL 1,000 UNIT TABLET (VIT D3) GT SCH (20:14)
[2017-07-06] MEDS: POLYETHYLENE GLYCOL 3350 17 GM POWD.PACK GT SCH (21:21)
[2017-07-07] MEDS: ALBUTEROL FS 2.5 MG/3 ML VIAL.NEB NEB SCH ×4 (01:30→20:02)
[2017-07-07] MEDS: CHLORHEXIDINE GLUCONATE 15 ML UDC MM SCH ×2 (05:10→17:41)
[2017-07-07] MEDS: POLYVINYL ALCOHOL 15 ML BOTTLE EACHEYE SCH ×4 (05:10→23:43)
[2017-07-07 07:45] VITALS: BP_SYST 129; BP_SYST 97; BP_DIAS 59; BP_DIAS 60
[2017-07-07] MEDS: BACLOFEN (10 MG) 10 MG TABLET GT SCH ×3 (08:31→16:58)
[2017-07-07] MEDS: LEVETIRACETAM SOL (5 ML) 100 MG/ML UDC GT SCH ×2 (08:31→20:06)
[2017-07-07] MEDS: SENNOSIDES 8.6 MG TABLET GT SCH ×2 (08:31→20:06)
[2017-07-07] MEDS: FOLIC ACID 1 MG TABLET GT SCH ×2 (08:31→16:58)
[2017-07-07] MEDS: SERTRALINE HCL 25 MG TABLET GT SCH (08:32)
[2017-07-07] MEDS: CARBAMAZEPINE 100 MG/5 ML GT SCH ×3 (08:32→16:58)
[2017-07-07] MEDS: NYSTATIN TOP POWDER 15 GM BOTTLE TP SCH ×2 (08:33→16:58)
[2017-07-07] MEDS: HEPARIN SODIUM, PORCINE 5000 UNITS/1 ML VIAL SQ SCH ×2 (08:33→20:07)
[2017-07-07] MEDS: HYDROGEN PEROXIDE 480 ML BOTTLE TP SCH ×2 (08:33→20:07)
[2017-07-07] MEDS: Z GUARD REMEDY 4 OZ OINT TP SCH ×2 (08:33→20:07)
--- NOTE | 2017-07-07 15:46 | NUR ---
Called the resident's father to remind him that administration wants to meet with him and his . He stated that he is able to meet with them this Thursday or next Thursday at 10:15AM. track service worker will check with administration to set appointment.
[2017-07-07] MEDS: CHOLECALCIFEROL 1,000 UNIT TABLET (VIT D3) GT SCH (20:07)
[2017-07-07] MEDS: POLYETHYLENE GLYCOL 3350 17 GM POWD.PACK GT SCH (21:31)
[2017-07-08] MEDS: ALBUTEROL FS 2.5 MG/3 ML VIAL.NEB NEB SCH ×4 (01:04→19:30)
[2017-07-08] MEDS: POLYVINYL ALCOHOL 15 ML BOTTLE EACHEYE SCH ×4 (05:11→23:15)
[2017-07-08] MEDS: CHLORHEXIDINE GLUCONATE 15 ML UDC MM SCH ×2 (05:12→17:49)
[2017-07-08 08:05] VITALS: BP 116/73
[2017-07-08] MEDS: FOLIC ACID 1 MG TABLET GT SCH ×2 (09:53→17:48)
[2017-07-08] MEDS: BACLOFEN (10 MG) 10 MG TABLET GT SCH ×3 (09:53→17:48)
[2017-07-08] MEDS: LEVETIRACETAM SOL (5 ML) 100 MG/ML UDC GT SCH ×2 (09:53→20:18)
[2017-07-08] MEDS: SERTRALINE HCL 25 MG TABLET GT SCH (09:53)
[2017-07-08] MEDS: SENNOSIDES 8.6 MG TABLET GT SCH ×2 (09:53→20:18)
[2017-07-08] MEDS: CARBAMAZEPINE 100 MG/5 ML GT SCH ×3 (09:53→17:48)
[2017-07-08] MEDS: HEPARIN SODIUM, PORCINE 5000 UNITS/1 ML VIAL SQ SCH ×2 (09:54→20:19)
[2017-07-08] MEDS: NYSTATIN TOP POWDER 15 GM BOTTLE TP SCH ×2 (09:54→17:48)
[2017-07-08] MEDS: Z GUARD REMEDY 4 OZ OINT TP SCH ×2 (09:54→20:19)
[2017-07-08] MEDS: HYDROGEN PEROXIDE 480 ML BOTTLE TP SCH ×2 (09:54→20:19)
--- NOTE | 2017-07-08 12:33 | NUR ---
Spoke to resident's father Mr Swift earlier today and he stated that he can actually meet tomorrow at 10:15AM. Informed him that SW has to confirm with CNO to see if he is available. He stated that he will wait to hear from the psychiatric social worker. SW went to speak to the resident's mother and informed her that SW spoke to her about setting up a meeting. Mother tried to postpone the meeting for next week however psychiatric social worker stated that her noted that he was available this week (tomorrow). She stated that this was fine since it depends on his schedule. SW confirmed with CNO that he is available for tomorrow at 10:15AM and SW left a message with Mr. Swift to notify him. SW to try to reach out again to confirm with him.
--- NOTE | 2017-07-08 14:40 | NUR ---
Jennifer Swift called the and confirmed tomorrow's meeting for 10:15AM. Informed CNO Rojelio and subacute residence manager Yajaira Pratt.
[2017-07-08 19:30] VITALS: BP 106/60
[2017-07-08] MEDS: CHOLECALCIFEROL 1,000 UNIT TABLET (VIT D3) GT SCH (20:18)
[2017-07-08] MEDS: POLYETHYLENE GLYCOL 3350 17 GM POWD.PACK GT SCH (21:18)
[2017-07-09] MEDS: ALBUTEROL FS 2.5 MG/3 ML VIAL.NEB NEB SCH ×4 (01:18→19:44)
[2017-07-09] MEDS: POLYVINYL ALCOHOL 15 ML BOTTLE EACHEYE SCH ×3 (05:23→18:16)
[2017-07-09] MEDS: CHLORHEXIDINE GLUCONATE 15 ML UDC MM SCH ×2 (05:23→18:16)
[2017-07-09 07:51] VITALS: BP 127/54
[2017-07-09] MEDS: FOLIC ACID 1 MG TABLET GT SCH ×2 (09:37→17:00)
[2017-07-09] MEDS: SERTRALINE HCL 25 MG TABLET GT SCH (09:37)
[2017-07-09] MEDS: HYDROGEN PEROXIDE 480 ML BOTTLE TP SCH ×2 (09:37→21:48)
[2017-07-09] MEDS: NYSTATIN TOP POWDER 15 GM BOTTLE TP SCH ×2 (09:37→17:00)
[2017-07-09] MEDS: SENNOSIDES 8.6 MG TABLET GT SCH ×2 (09:37→21:48)
[2017-07-09] MEDS: Z GUARD REMEDY 4 OZ OINT TP SCH ×2 (09:37→21:48)
[2017-07-09] MEDS: CARBAMAZEPINE 100 MG/5 ML GT SCH ×3 (09:37→17:00)
[2017-07-09] MEDS: BACLOFEN (10 MG) 10 MG TABLET GT SCH ×3 (09:37→17:00)
[2017-07-09] MEDS: LEVETIRACETAM SOL (5 ML) 100 MG/ML UDC GT SCH ×2 (09:37→21:48)
[2017-07-09] MEDS: HEPARIN SODIUM, PORCINE 5000 UNITS/1 ML VIAL SQ SCH ×2 (09:55→21:48)
--- NOTE | 2017-07-09 11:46 | NUR ---
IDT meeting began at 10:30AM and ended at 11:15AM. Mother initially did not want to participate however SW informed her that it would be best if she attends so that her concerns can be addressed with the subacute slot manager and the CNO. HILTON has also been attempting to set a meeting with administration for over 5 months. Resident's father (Jennifer Jamison) reported that he believes there is a shortage of subacute staff members and would appreciate it if floaters do not work with the resident, as their experience is different than those that are regularly in the subacute unit. Distribution Estimator Yajaira stated that staff tries their best to assign floaters in an equal way but that all staff are trained in incontinence care. Both Dr. Swift and Mrs. Swift stated that their biggest issue is with cleaning and that they would like the staff to be more thorough in cleaning the resident. Female TELECOMMUNICATIONS FACILITY EXAMINER's will continue to be assigned to the resident. Per subacute slot manager, resident is changed at 5pm and the nightshift takes over at 7pm so bowel movements are expected during that time. Subacute slot manager will reinforce that turning is done every 2 hours. In addition, subacute slot manager informed family that the resident's mattress was changed. Per RYAN Serrato, family is not to be in the room while care is being provided. Dr. Swift agreed with this stating that he is a doctor and knows the regulations and that the family has to place their trust in the staff. Resident's mother however did not agree and stated that she has to be in the room to make sure that the staff are doing their jobs. CNO assured mother that mother is still able to go back into the room once care is finished in order to check to see if everything was done correctly, which Dr. Swift was on board with. Per Dr. Swift, Mrs. Swift also has back problems and would prefer it if she weren't in the room. CNO emphasized that trust is important but Mrs. Swift reported that she does not trust the staff. She was upset that she is no longer able to be in the room but stated to her that she should step out when care is being provided. Per subacute slot manager and CNO, if there are any problems to please address them with subacute charge nurse, SW, magnetic resonance imaging coordinator, or CNO. Dr. Swift reinforced to Mrs. Swift that she has to place her trust in the staff. Dr. Swift stated that they will see how it goes for the next two weeks and will consider taking his daughter home or to another facility if things do not work out. Family understood that if they are not happy with something, they are always able to address their concerns with hospital staff. and understood that can go back into the room once care is finished to make sure that things are done the way she likes but that she does not agree with stepping out. Mother understood that they will see how things go, per Dr. Swift's request, and will consider transferring her if she is unhappy.
--- NOTE | 2017-07-09 16:58 | NUR ---
Notified Dr. Aguilar that pt's urine has a strong odor but pt does not have a fever, T 98.6 F, no bladder distention or signs abdominal pain, urine yellow in color. Pt gets 360 mL of water every 6 hours.
[2017-07-09 19:50] VITALS: BP 101/74
[2017-07-09] MEDS: POLYETHYLENE GLYCOL 3350 17 GM POWD.PACK GT SCH (21:48)
[2017-07-09] MEDS: CHOLECALCIFEROL 1,000 UNIT TABLET (VIT D3) GT SCH (21:48)
[2017-07-10] MEDS: POLYVINYL ALCOHOL 15 ML BOTTLE EACHEYE SCH ×5 (00:03→23:51)
[2017-07-10] MEDS: ALBUTEROL FS 2.5 MG/3 ML VIAL.NEB NEB SCH ×3 (01:50→19:32)
[2017-07-10] MEDS: CHLORHEXIDINE GLUCONATE 15 ML UDC MM SCH ×2 (05:38→17:27)
[2017-07-10 07:30] VITALS: BP 117/68
[2017-07-10] MEDS: SERTRALINE HCL 25 MG TABLET GT SCH (08:43)
[2017-07-10] MEDS: CARBAMAZEPINE 100 MG/5 ML GT SCH ×3 (08:43→17:27)
[2017-07-10] MEDS: FOLIC ACID 1 MG TABLET GT SCH ×2 (08:43→17:27)
[2017-07-10] MEDS: SENNOSIDES 8.6 MG TABLET GT SCH ×2 (08:43→21:03)
[2017-07-10] MEDS: HEPARIN SODIUM, PORCINE 5000 UNITS/1 ML VIAL SQ SCH ×2 (08:43→21:03)
[2017-07-10] MEDS: LEVETIRACETAM SOL (5 ML) 100 MG/ML UDC GT SCH ×2 (08:43→21:02)
[2017-07-10] MEDS: BACLOFEN (10 MG) 10 MG TABLET GT SCH ×3 (08:43→17:27)
[2017-07-10] MEDS: HYDROGEN PEROXIDE 480 ML BOTTLE TP SCH ×2 (08:44→21:03)
[2017-07-10] MEDS: Z GUARD REMEDY 4 OZ OINT TP SCH ×2 (08:44→21:03)
[2017-07-10] MEDS: NYSTATIN TOP POWDER 15 GM BOTTLE TP SCH ×2 (08:44→17:27)
[2017-07-10 19:45] VITALS: BP 104/61
[2017-07-10] MEDS: POLYETHYLENE GLYCOL 3350 17 GM POWD.PACK GT SCH (21:03)
[2017-07-10] MEDS: CHOLECALCIFEROL 1,000 UNIT TABLET (VIT D3) GT SCH (21:03)
[2017-07-11] MEDS: ALBUTEROL FS 2.5 MG/3 ML VIAL.NEB NEB SCH ×4 (01:59→20:01)
[2017-07-11] MEDS: POLYVINYL ALCOHOL 15 ML BOTTLE EACHEYE SCH ×4 (05:14→23:57)
[2017-07-11] MEDS: CHLORHEXIDINE GLUCONATE 15 ML UDC MM SCH ×2 (05:14→17:52)
[2017-07-11 07:28] VITALS: BP 121/73
[2017-07-11] MEDS: LEVETIRACETAM SOL (5 ML) 100 MG/ML UDC GT SCH ×2 (08:28→21:01)
[2017-07-11] MEDS: FOLIC ACID 1 MG TABLET GT SCH ×2 (08:28→17:52)
[2017-07-11] MEDS: HEPARIN SODIUM, PORCINE 5000 UNITS/1 ML VIAL SQ SCH ×2 (08:29→21:01)
[2017-07-11] MEDS: SERTRALINE HCL 25 MG TABLET GT SCH (08:29)
[2017-07-11] MEDS: CARBAMAZEPINE 100 MG/5 ML GT SCH ×3 (08:29→17:52)
[2017-07-11] MEDS: SENNOSIDES 8.6 MG TABLET GT SCH ×2 (08:29→21:01)
[2017-07-11] MEDS: BACLOFEN (10 MG) 10 MG TABLET GT SCH ×3 (08:29→17:52)
[2017-07-11] MEDS: NYSTATIN TOP POWDER 15 GM BOTTLE TP SCH ×2 (09:00→17:52)
[2017-07-11] MEDS: HYDROGEN PEROXIDE 480 ML BOTTLE TP SCH ×2 (09:00→21:02)
[2017-07-11] MEDS: Z GUARD REMEDY 4 OZ OINT TP SCH ×2 (09:00→21:02)
--- NOTE | 2017-07-11 17:48 | NUR ---
Resident cared for by staff with 2 person assist. Mother leaves the room and allows staff to do their job without any arguments or complain. Resident up in the wheelchair and fed by staff. Mother at the bedside and does not interfere with the care. Dr. Swift also visited late in the afternoon, no concern was brought up.
[2017-07-11 19:34] VITALS: BP 125/63
[2017-07-11] MEDS: CHOLECALCIFEROL 1,000 UNIT TABLET (VIT D3) GT SCH (21:01)
[2017-07-11] MEDS: POLYETHYLENE GLYCOL 3350 17 GM POWD.PACK GT SCH (21:02)
[2017-07-12] MEDS: ALBUTEROL FS 2.5 MG/3 ML VIAL.NEB NEB SCH ×4 (02:14→19:43)
[2017-07-12] MEDS: CHLORHEXIDINE GLUCONATE 15 ML UDC MM SCH ×2 (05:39→18:09)
[2017-07-12] MEDS: POLYVINYL ALCOHOL 15 ML BOTTLE EACHEYE SCH ×4 (05:39→23:12)
[2017-07-12 07:58] VITALS: BP 121/77
[2017-07-12] MEDS: BACLOFEN (10 MG) 10 MG TABLET GT SCH ×3 (08:59→17:00)
[2017-07-12] MEDS: HYDROGEN PEROXIDE 480 ML BOTTLE TP SCH ×2 (08:59→21:08)
[2017-07-12] MEDS: LEVETIRACETAM SOL (5 ML) 100 MG/ML UDC GT SCH ×2 (08:59→21:08)
[2017-07-12] MEDS: FOLIC ACID 1 MG TABLET GT SCH ×2 (08:59→17:00)
[2017-07-12] MEDS: CARBAMAZEPINE 100 MG/5 ML GT SCH ×3 (08:59→17:00)
[2017-07-12] MEDS: HEPARIN SODIUM, PORCINE 5000 UNITS/1 ML VIAL SQ SCH ×2 (08:59→21:08)
[2017-07-12] MEDS: SENNOSIDES 8.6 MG TABLET GT SCH ×2 (08:59→21:08)
[2017-07-12] MEDS: SERTRALINE HCL 25 MG TABLET GT SCH (08:59)
[2017-07-12] MEDS: NYSTATIN TOP POWDER 15 GM BOTTLE TP SCH ×2 (09:39→17:00)
[2017-07-12] MEDS: Z GUARD REMEDY 4 OZ OINT TP SCH ×2 (09:39→21:09)
[2017-07-12 19:29] VITALS: BP 102/58
[2017-07-12] MEDS: CHOLECALCIFEROL 1,000 UNIT TABLET (VIT D3) GT SCH (21:08)
[2017-07-12] MEDS: POLYETHYLENE GLYCOL 3350 17 GM POWD.PACK GT SCH (21:09)
[2017-07-13] MEDS: ALBUTEROL FS 2.5 MG/3 ML VIAL.NEB NEB SCH ×4 (01:50→19:34)
[2017-07-13] MEDS: POLYVINYL ALCOHOL 15 ML BOTTLE EACHEYE SCH ×3 (05:06→17:11)
[2017-07-13] MEDS: CHLORHEXIDINE GLUCONATE 15 ML UDC MM SCH ×2 (05:06→17:11)
[2017-07-13 07:59] VITALS: BP 113/76
[2017-07-13] MEDS: FOLIC ACID 1 MG TABLET GT SCH ×2 (08:58→17:11)
[2017-07-13] MEDS: CARBAMAZEPINE 100 MG/5 ML GT SCH ×3 (08:58→17:11)
[2017-07-13] MEDS: LEVETIRACETAM SOL (5 ML) 100 MG/ML UDC GT SCH ×2 (08:58→20:10)
[2017-07-13] MEDS: SERTRALINE HCL 25 MG TABLET GT SCH (08:58)
[2017-07-13] MEDS: SENNOSIDES 8.6 MG TABLET GT SCH ×2 (08:58→20:12)
[2017-07-13] MEDS: BACLOFEN (10 MG) 10 MG TABLET GT SCH ×3 (08:58→17:11)
[2017-07-13] MEDS: HEPARIN SODIUM, PORCINE 5000 UNITS/1 ML VIAL SQ SCH ×2 (08:59→20:13)
[2017-07-13] MEDS: Z GUARD REMEDY 4 OZ OINT TP SCH ×2 (08:59→20:14)
[2017-07-13] MEDS: NYSTATIN TOP POWDER 15 GM BOTTLE TP SCH ×2 (08:59→17:11)
[2017-07-13] MEDS: HYDROGEN PEROXIDE 480 ML BOTTLE TP SCH ×2 (08:59→20:14)
[2017-07-13 19:25] VITALS: BP 104/58
[2017-07-13] MEDS: CHOLECALCIFEROL 1,000 UNIT TABLET (VIT D3) GT SCH (20:10)
[2017-07-13] MEDS: POLYETHYLENE GLYCOL 3350 17 GM POWD.PACK GT SCH (22:17)
[2017-07-14] MEDS: POLYVINYL ALCOHOL 15 ML BOTTLE EACHEYE SCH ×4 (00:14→17:35)
[2017-07-14] MEDS: ALBUTEROL FS 2.5 MG/3 ML VIAL.NEB NEB SCH ×4 (01:30→19:28)
[2017-07-14] MEDS: CHLORHEXIDINE GLUCONATE 15 ML UDC MM SCH ×2 (05:13→17:35)
[2017-07-14 07:39] VITALS: BP 94/72
[2017-07-14] MEDS: CARBAMAZEPINE 100 MG/5 ML GT SCH ×3 (08:16→17:35)
[2017-07-14] MEDS: FOLIC ACID 1 MG TABLET GT SCH ×2 (08:16→17:35)
[2017-07-14] MEDS: BACLOFEN (10 MG) 10 MG TABLET GT SCH ×3 (08:16→17:35)
[2017-07-14] MEDS: SENNOSIDES 8.6 MG TABLET GT SCH ×2 (08:16→20:37)
[2017-07-14] MEDS: SERTRALINE HCL 25 MG TABLET GT SCH (08:16)
[2017-07-14] MEDS: LEVETIRACETAM SOL (5 ML) 100 MG/ML UDC GT SCH ×2 (08:16→20:37)
[2017-07-14] MEDS: Z GUARD REMEDY 4 OZ OINT TP SCH ×2 (08:17→20:40)
[2017-07-14] MEDS: HYDROGEN PEROXIDE 480 ML BOTTLE TP SCH ×2 (08:17→20:40)
[2017-07-14] MEDS: HEPARIN SODIUM, PORCINE 5000 UNITS/1 ML VIAL SQ SCH ×2 (08:17→20:40)
[2017-07-14] MEDS: NYSTATIN TOP POWDER 15 GM BOTTLE TP SCH ×2 (08:17→17:35)
[2017-07-14 19:59] VITALS: BP 106/69
[2017-07-14] MEDS: CHOLECALCIFEROL 1,000 UNIT TABLET (VIT D3) GT SCH (20:38)
[2017-07-14] MEDS: POLYETHYLENE GLYCOL 3350 17 GM POWD.PACK GT SCH (22:06)
[2017-07-15] MEDS: POLYVINYL ALCOHOL 15 ML BOTTLE EACHEYE SCH ×5 (00:22→23:20)
[2017-07-15] MEDS: ALBUTEROL FS 2.5 MG/3 ML VIAL.NEB NEB SCH ×4 (00:45→20:12)
[2017-07-15] MEDS: CHLORHEXIDINE GLUCONATE 15 ML UDC MM SCH ×2 (06:05→17:12)
[2017-07-15 07:36] VITALS: BP 107/69
[2017-07-15] MEDS: HYDROGEN PEROXIDE 480 ML BOTTLE TP SCH ×2 (08:35→21:29)
[2017-07-15] MEDS: CARBAMAZEPINE 100 MG/5 ML GT SCH ×3 (08:35→17:11)
[2017-07-15] MEDS: SENNOSIDES 8.6 MG TABLET GT SCH ×2 (08:35→21:29)
[2017-07-15] MEDS: BACLOFEN (10 MG) 10 MG TABLET GT SCH ×3 (08:35→17:11)
[2017-07-15] MEDS: FOLIC ACID 1 MG TABLET GT SCH ×2 (08:35→17:11)
[2017-07-15] MEDS: SERTRALINE HCL 25 MG TABLET GT SCH (08:35)
[2017-07-15] MEDS: LEVETIRACETAM SOL (5 ML) 100 MG/ML UDC GT SCH ×2 (08:35→21:28)
[2017-07-15] MEDS: HEPARIN SODIUM, PORCINE 5000 UNITS/1 ML VIAL SQ SCH ×2 (08:36→21:29)
[2017-07-15] MEDS: Z GUARD REMEDY 4 OZ OINT TP SCH ×2 (09:00→21:29)
[2017-07-15] MEDS: NYSTATIN TOP POWDER 15 GM BOTTLE TP SCH ×2 (09:00→17:11)
[2017-07-15 20:21] VITALS: BP 120/70
[2017-07-15] MEDS: POLYETHYLENE GLYCOL 3350 17 GM POWD.PACK GT SCH (21:29)
[2017-07-15] MEDS: CHOLECALCIFEROL 1,000 UNIT TABLET (VIT D3) GT SCH (21:29)
[2017-07-16] MEDS: ALBUTEROL FS 2.5 MG/3 ML VIAL.NEB NEB SCH ×4 (01:07→19:36)
[2017-07-16] MEDS: CHLORHEXIDINE GLUCONATE 15 ML UDC MM SCH ×2 (05:48→17:13)
[2017-07-16] MEDS: POLYVINYL ALCOHOL 15 ML BOTTLE EACHEYE SCH ×4 (05:48→23:38)
[2017-07-16] MEDS: MAGNESIUM HYDROXIDE 30 ML UDC GT PRN (06:24)
[2017-07-16 07:40] VITALS: BP 122/77
[2017-07-16] MEDS: FOLIC ACID 1 MG TABLET GT SCH ×2 (08:42→17:13)
[2017-07-16] MEDS: HEPARIN SODIUM, PORCINE 5000 UNITS/1 ML VIAL SQ SCH ×2 (08:42→21:01)
[2017-07-16] MEDS: LEVETIRACETAM SOL (5 ML) 100 MG/ML UDC GT SCH ×2 (08:42→21:01)
[2017-07-16] MEDS: SENNOSIDES 8.6 MG TABLET GT SCH ×2 (08:42→21:01)
[2017-07-16] MEDS: BACLOFEN (10 MG) 10 MG TABLET GT SCH ×3 (08:42→17:13)
[2017-07-16] MEDS: CARBAMAZEPINE 100 MG/5 ML GT SCH ×3 (08:42→17:13)
[2017-07-16] MEDS: NYSTATIN TOP POWDER 15 GM BOTTLE TP SCH ×2 (08:42→17:13)
[2017-07-16] MEDS: HYDROGEN PEROXIDE 480 ML BOTTLE TP SCH ×2 (08:42→21:01)
[2017-07-16] MEDS: SERTRALINE HCL 25 MG TABLET GT SCH (08:42)
[2017-07-16] MEDS: Z GUARD REMEDY 4 OZ OINT TP SCH ×2 (08:42→21:02)
--- NOTE | 2017-07-16 13:00 | NUR ---
Seen by Dr. Aguilar. Notified him that pt's mother was concerned that pt was coughing this morning while eating. Dr. Aguilar said if the coughing gets worse, then DC po feeding at least for a day. Pt was not coughing while eating lunch. Pt's mother present and Dr. Aguilar spoke with her in Finnish. Addendum: 07/16/17 at 1700 by JAIDEN GARCIA RN Also notified Dr. Aguilar regarding strong odor in the urine. Pt is getting 360 mL of water q [address] Aguilar ordered to do BMP.
[2017-07-16 19:46] VITALS: BP 113/73
[2017-07-16] MEDS: CHOLECALCIFEROL 1,000 UNIT TABLET (VIT D3) GT SCH (21:01)
[2017-07-16] MEDS: POLYETHYLENE GLYCOL 3350 17 GM POWD.PACK GT SCH (21:02)
[2017-07-17] MEDS: ALBUTEROL FS 2.5 MG/3 ML VIAL.NEB NEB SCH ×4 (02:09→19:41)
[2017-07-17] MEDS: POLYVINYL ALCOHOL 15 ML BOTTLE EACHEYE SCH ×2 (05:22→12:00)
[2017-07-17] MEDS: CHLORHEXIDINE GLUCONATE 15 ML UDC MM SCH ×2 (05:22→18:06)
[2017-07-17 07:39] VITALS: BP 121/87
[2017-07-17] MEDS: BACLOFEN (10 MG) 10 MG TABLET GT SCH ×3 (08:23→17:00)
[2017-07-17] MEDS: SENNOSIDES 8.6 MG TABLET GT SCH ×2 (08:23→21:11)
[2017-07-17] MEDS: LEVETIRACETAM SOL (5 ML) 100 MG/ML UDC GT SCH ×2 (08:23→21:11)
[2017-07-17] MEDS: FOLIC ACID 1 MG TABLET GT SCH ×2 (08:23→17:00)
[2017-07-17] MEDS: SERTRALINE HCL 25 MG TABLET GT SCH (08:23)
[2017-07-17] MEDS: CARBAMAZEPINE 100 MG/5 ML GT SCH ×3 (08:23→17:00)
[2017-07-17] MEDS: HYDROGEN PEROXIDE 480 ML BOTTLE TP SCH ×2 (08:24→21:11)
[2017-07-17] MEDS: NYSTATIN TOP POWDER 15 GM BOTTLE TP SCH ×2 (08:24→17:00)
[2017-07-17] MEDS: Z GUARD REMEDY 4 OZ OINT TP SCH ×2 (08:24→21:12)
[2017-07-17] MEDS: HEPARIN SODIUM, PORCINE 5000 UNITS/1 ML VIAL SQ SCH ×2 (08:24→21:11)
[2017-07-17 19:38] VITALS: BP 105/58
[2017-07-17] MEDS: CHOLECALCIFEROL 1,000 UNIT TABLET (VIT D3) GT SCH (21:11)
[2017-07-17] MEDS: POLYETHYLENE GLYCOL 3350 17 GM POWD.PACK GT SCH (21:12)
[2017-07-18] MEDS: POLYVINYL ALCOHOL 15 ML BOTTLE EACHEYE SCH ×4 (00:35→17:55)
[2017-07-18] MEDS: ALBUTEROL FS 2.5 MG/3 ML VIAL.NEB NEB SCH ×4 (01:30→19:21)
[2017-07-18] MEDS: CHLORHEXIDINE GLUCONATE 15 ML UDC MM SCH ×2 (05:21→17:56)
[2017-07-18 07:28] VITALS: BP 123/58
[2017-07-18] MEDS: BACLOFEN (10 MG) 10 MG TABLET GT SCH ×3 (09:08→16:35)
[2017-07-18] MEDS: SENNOSIDES 8.6 MG TABLET GT SCH ×2 (09:08→21:35)
[2017-07-18] MEDS: FOLIC ACID 1 MG TABLET GT SCH ×2 (09:08→16:34)
[2017-07-18] MEDS: SERTRALINE HCL 25 MG TABLET GT SCH (09:08)
[2017-07-18] MEDS: CARBAMAZEPINE 100 MG/5 ML GT SCH ×3 (09:08→16:35)
[2017-07-18] MEDS: LEVETIRACETAM SOL (5 ML) 100 MG/ML UDC GT SCH ×2 (09:08→21:35)
[2017-07-18] MEDS: HEPARIN SODIUM, PORCINE 5000 UNITS/1 ML VIAL SQ SCH ×2 (09:09→21:35)
[2017-07-18] MEDS: HYDROGEN PEROXIDE 480 ML BOTTLE TP SCH ×2 (09:45→21:35)
[2017-07-18] MEDS: NYSTATIN TOP POWDER 15 GM BOTTLE TP SCH ×2 (09:45→16:35)
[2017-07-18] MEDS: Z GUARD REMEDY 4 OZ OINT TP SCH ×2 (09:45→21:35)
[2017-07-18 19:33] VITALS: BP 101/62
[2017-07-18] MEDS: POLYETHYLENE GLYCOL 3350 17 GM POWD.PACK GT SCH (21:35)
[2017-07-18] MEDS: CHOLECALCIFEROL 1,000 UNIT TABLET (VIT D3) GT SCH (21:35)
[2017-07-19] MEDS: POLYVINYL ALCOHOL 15 ML BOTTLE EACHEYE SCH ×4 (00:26→17:18)
[2017-07-19] MEDS: ALBUTEROL FS 2.5 MG/3 ML VIAL.NEB NEB SCH ×4 (01:14→19:45)
[2017-07-19] MEDS: CHLORHEXIDINE GLUCONATE 15 ML UDC MM SCH ×2 (06:06→17:18)
[2017-07-19 07:25] VITALS: BP 124/65
[2017-07-19] MEDS: FOLIC ACID 1 MG TABLET GT SCH ×2 (08:47→17:00)
[2017-07-19] MEDS: LEVETIRACETAM SOL (5 ML) 100 MG/ML UDC GT SCH ×2 (08:47→20:22)
[2017-07-19] MEDS: CARBAMAZEPINE 100 MG/5 ML GT SCH ×3 (08:47→17:00)
[2017-07-19] MEDS: SENNOSIDES 8.6 MG TABLET GT SCH ×2 (08:47→20:22)
[2017-07-19] MEDS: BACLOFEN (10 MG) 10 MG TABLET GT SCH ×3 (08:47→17:00)
[2017-07-19] MEDS: SERTRALINE HCL 25 MG TABLET GT SCH (08:47)
[2017-07-19] MEDS: HEPARIN SODIUM, PORCINE 5000 UNITS/1 ML VIAL SQ SCH ×2 (08:59→20:25)
[2017-07-19] MEDS: HYDROGEN PEROXIDE 480 ML BOTTLE TP SCH ×2 (08:59→20:25)
[2017-07-19] MEDS: Z GUARD REMEDY 4 OZ OINT TP SCH ×2 (08:59→20:25)
[2017-07-19] MEDS: NYSTATIN TOP POWDER 15 GM BOTTLE TP SCH ×2 (08:59→17:00)
[2017-07-19 19:30] VITALS: BP 122/64
[2017-07-19] MEDS: CHOLECALCIFEROL 1,000 UNIT TABLET (VIT D3) GT SCH (20:22)
[2017-07-19] MEDS: POLYETHYLENE GLYCOL 3350 17 GM POWD.PACK GT SCH (22:00)
[2017-07-20] MEDS: POLYVINYL ALCOHOL 15 ML BOTTLE EACHEYE SCH ×4 (00:03→17:26)
[2017-07-20] MEDS: ALBUTEROL FS 2.5 MG/3 ML VIAL.NEB NEB SCH ×4 (01:03→20:12)
[2017-07-20] MEDS: CHLORHEXIDINE GLUCONATE 15 ML UDC MM SCH ×2 (05:16→17:26)
[2017-07-20 07:45] VITALS: BP 124/77
[2017-07-20] MEDS: SENNOSIDES 8.6 MG TABLET GT SCH ×2 (08:53→20:26)
[2017-07-20] MEDS: CARBAMAZEPINE 100 MG/5 ML GT SCH ×3 (08:53→16:25)
[2017-07-20] MEDS: FOLIC ACID 1 MG TABLET GT SCH ×2 (08:53→16:25)
[2017-07-20] MEDS: BACLOFEN (10 MG) 10 MG TABLET GT SCH ×3 (08:53→16:25)
[2017-07-20] MEDS: LEVETIRACETAM SOL (5 ML) 100 MG/ML UDC GT SCH ×2 (08:53→20:25)
[2017-07-20] MEDS: SERTRALINE HCL 25 MG TABLET GT SCH (08:54)
[2017-07-20] MEDS: HEPARIN SODIUM, PORCINE 5000 UNITS/1 ML VIAL SQ SCH ×2 (08:54→20:28)
[2017-07-20] MEDS: NYSTATIN TOP POWDER 15 GM BOTTLE TP SCH ×2 (09:00→16:25)
[2017-07-20] MEDS: HYDROGEN PEROXIDE 480 ML BOTTLE TP SCH ×2 (09:00→20:28)
[2017-07-20] MEDS: Z GUARD REMEDY 4 OZ OINT TP SCH ×2 (09:00→20:28)
--- NOTE | 2017-07-20 11:05 | NUR ---
made rounds and seen the pt and no new orders noted.
--- NOTE | 2017-07-20 13:30 | NUR ---
seen the pt and no new orders noted.
[2017-07-20] MEDS: CHOLECALCIFEROL 1,000 UNIT TABLET (VIT D3) GT SCH (20:27)
[2017-07-20] MEDS: POLYETHYLENE GLYCOL 3350 17 GM POWD.PACK GT SCH (21:27)
[2017-07-20 22:30] VITALS: BP 116/64
[2017-07-21] MEDS: POLYVINYL ALCOHOL 15 ML BOTTLE EACHEYE SCH ×2 (00:09→06:09)
[2017-07-21] MEDS: ALBUTEROL FS 2.5 MG/3 ML VIAL.NEB NEB SCH ×2 (01:11→07:48)
[2017-07-21] MEDS: CHLORHEXIDINE GLUCONATE 15 ML UDC MM SCH (06:09)
[2017-07-21] MEDS: FOLIC ACID 1 MG TABLET GT SCH (09:12)
[2017-07-21] MEDS: BACLOFEN (10 MG) 10 MG TABLET GT SCH (09:13)
[2017-07-21] MEDS: LEVETIRACETAM SOL (5 ML) 100 MG/ML UDC GT SCH (09:13)
[2017-07-21] MEDS: SENNOSIDES 8.6 MG TABLET GT SCH (09:13)
[2017-07-21] MEDS: CARBAMAZEPINE 100 MG/5 ML GT SCH (09:13)
[2017-07-21] MEDS: SERTRALINE HCL 25 MG TABLET GT SCH (09:14)
[2017-07-21] MEDS: HEPARIN SODIUM, PORCINE 5000 UNITS/1 ML VIAL SQ SCH (09:16)
[2017-07-21] MEDS: Z GUARD REMEDY 4 OZ OINT TP SCH (09:16)
[2017-07-21] MEDS: NYSTATIN TOP POWDER 15 GM BOTTLE TP SCH (09:16)
== END 2017-07-19 23:59 | disposition still patient (30) | DRG 189 ==
LOC: SA 15:49
PROVIDERS: ADMIT Internal Medicine; ATTEND Internal Medicine Pulmonary Disease
DX: J96.10 Chronic respiratory failure, unspecified whether with hypoxia or hypercapnia (principal); G93.40 Encephalopathy, unspecified; I69.398 Other sequelae of cerebral infarction; Z82.49 Family history of ischemic heart disease and other diseases of the circulatory system; G40.409 Other generalized epilepsy and epileptic syndromes, not intractable, without status epilepticus; K59.00 Constipation, unspecified; Z98.82 Breast implant status
CPT/HCPCS: 31720; 36415; 71010-TC; 80048-TC; 80156-TC; 81000-TC; 82962-TC; 85025-TC; 87040-TC; 87081-TC; 87086-TC; 87186-TC; 94003-TC; 94640-TC; 94762-TC; 94799-TC; 97530-TC; 97760-TC; A4217; A4623; A6253; A6402; A7526; J0585; J0696; J1644; J1953; J7060; Q2036; Q9967; Z7610

== ENCOUNTER 2017-07-20 00:01 | Inpatient (IN) | END 2018-07-19 23:59 | disposition still patient (30) | DRG 189 | DX: J96.11 Chronic respiratory failure with hypoxia (principal); R53.2 Functional quadriplegia; G93.40 Encephalopathy, unspecified; L10.0 Pemphigus vulgaris; E44.1 Mild protein-calorie malnutrition; L51.1 Stevens-Johnson syndrome; G93.1 Anoxic brain damage, not elsewhere classified; N76.81 Mucositis (ulcerative) of vagina and vulva; K94.23 Gastrostomy malfunction; G81.94 Hemiplegia, unspecified affecting left nondominant side; I69.398 Other sequelae of cerebral infarction; Z82.49 Family history of ischemic heart disease and other diseases of the circulatory system; G40.409 Other generalized epilepsy and epileptic syndromes, not intractable, without status epilepticus; K59.00 Constipation, unspecified; Z98.82 Breast implant status; D63.8 Anemia in other chronic diseases classified elsewhere; Z93.0 Tracheostomy status; D69.59 Other secondary thrombocytopenia; K21.9 Gastro-esophageal reflux disease without esophagitis; M19.90 Unspecified osteoarthritis, unspecified site; L60.3 Nail dystrophy; M24.569 Contracture, unspecified knee; Z68.21 Body mass index [BMI] 21.0-21.9, adult; R13.10 Dysphagia, unspecified; Y83.9 Surgical procedure, unspecified as the cause of abnormal reaction of the patient, or of later complication, without mention of misadventure at the time of the procedure; Y92.238 Other place in hospital as the place of occurrence of the external cause; R73.9 Hyperglycemia, unspecified; T38.0X5A Adverse effect of glucocorticoids and synthetic analogues, initial encounter; K63.89 Other specified diseases of intestine; K12.32 Oral mucositis (ulcerative) due to other drugs; T42.1X5A Adverse effect of iminostilbenes, initial encounter; K12.0 Recurrent oral aphthae; E55.9 Vitamin D deficiency, unspecified; I15.8 Other secondary hypertension; N76.0 Acute vaginitis; Z74.01 Bed confinement status; Z87.440 Personal history of urinary (tract) infections; Z91.19 Patient's noncompliance with other medical treatment and regimen; Z99.3 Dependence on wheelchair ==

== ENCOUNTER 2017-12-22 07:52 | Day surgery (SDC) | payer OTHER | END 2017-12-22 23:00 | disposition other institution (70) | LOC: DS 07:52 | PROVIDERS: ATTEND Internal Medicine Gastroenterology | DX: K63.89 Other specified diseases of intestine (principal); D64.9 Anemia, unspecified; I10 Essential (primary) hypertension; F32.9 Major depressive disorder, single episode, unspecified; J96.10 Chronic respiratory failure, unspecified whether with hypoxia or hypercapnia; M19.90 Unspecified osteoarthritis, unspecified site; K21.9 Gastro-esophageal reflux disease without esophagitis; Z79.899 Other long term (current) drug therapy; Z82.49 Family history of ischemic heart disease and other diseases of the circulatory system | CPT/HCPCS: 88305-TC; J2001; J2704; Z7610 ==

== ENCOUNTER 2018-02-26 08:46 | Inpatient (IN) | payer OTHER ==
[~2018-02-26] VITALS: Ht 152.4 cm; Wt 39.0 kg
[2018-02-26] VITALS (25 sets, daily range): BP systolic 78–135; BP diastolic 41–97
--- NOTE | 2018-02-26 10:51 | NUR ---
RT MOVED PT TO ICU TRACHED INTACT AND SECURED ON COOL AEROSOL 5L 28% NO RESP DISTRESS WILL CONTINUE TO MONITOR
[2018-02-26] MEDS ORDERED: DEXAMETHASONE SOD PHOSPHATE 4 MG/ML VIAL IV ONE (15:00)
--- NOTE | 2018-02-26 15:00 | NUR ---
ICU/RN PT ADMITTED FROM SUBACUTE UNIT FOR PEMPHIGUS VULGARIS,NEED IV INFUSION OF RITUXIMAB.PT IS CHRONIC TRACH ON T-TUBE .SAT O2-99%.V/S STABLE ,AFEBRILE NO PAIN REPORTED AT THIS TIME PT IS AWAKE .NON-VERBAL .CONTRACTED,NOT FOLLOW COMMANDS.LEFT UPPER ARM MIDLINE.INCONTINENT.MULTIPLY WOUNDS AND PEMPHIGUS LESIONS NOTED ALL OVER THE BODY.G-TUBE CLAMPED.CONTINUE MONITORING.
[2018-02-26] MEDS ORDERED: ALBUTEROL HALF STRENGTH 1.25 MG/3 ML VIAL.NEB NEB PRN (15:30)
[2018-02-26] MEDS ORDERED: IPRATROPIUM NEB FS 0.5 MG/2.5 ML AMPUL.NEB NEB PRN (15:30)
[2018-02-26] MEDS ORDERED: diphenhydrAMINE HCL 50 MG/ML VIAL IV ONE (15:30)
[2018-02-26] MEDS ORDERED: ONDANSETRON HCL/PF 4 MG/2 ML VIAL IV ONE (15:30)
[2018-02-26] MEDS ORDERED: FAMOTIDINE/PF INJ 20 MG/2 ML VIAL IV ONE ×2 (16:00→16:10)
[2018-02-26] MEDS ORDERED: ACETAMINOPHEN 650 MG/20.3 ML UDC NG ONE (16:00)
--- NOTE | 2018-02-26 16:00 | NUR ---
ICU/RN PT IS PREMEDICATED WITH MEDS ORDERED.V/S STABLE .T-99.
[2018-02-26] MEDS ORDERED: RITUXIMAB IV ONE ×2 (16:30)
[2018-02-26] MEDS ORDERED: NS 0.9% IV ONE ×2 (16:30)
--- NOTE | 2018-02-26 16:30 | NUR ---
ICU/RN RITUXIMAB AT 25 ML/HR STARTED ORDERED.CONTINUE MONITORING.
[2018-02-26] MEDS ORDERED: OMEP40CA37 GT (16:53)
[2018-02-26] MEDS ORDERED: PRED20TA GT (16:53)
[2018-02-26] MEDS ORDERED: HYDR1SOL TP ×2 (16:53)
[2018-02-26] MEDS ORDERED: DEXT50DI8 IV (16:53)
[2018-02-26] MEDS ORDERED: ACET-868 GT ×2 (16:53)
[2018-02-26] MEDS ORDERED: BLOO-668 IN (16:53)
[2018-02-26] MEDS ORDERED: ALLA266C2 TP (16:53)
[2018-02-26] MEDS ORDERED: INSU100V3 SQ (16:53)
[2018-02-26] MEDS ORDERED: NON-FORMULARY (16:53)
[2018-02-26] MEDS ORDERED: MYCO500T GT (16:53)
[2018-02-26] MEDS ORDERED: POLY15DR40 EACHEYE (16:53)
[2018-02-26] MEDS ORDERED: LACT-209 GT (16:53)
[2018-02-26] MEDS ORDERED: MAGNESIUM HYDROXIDE 30 ML UDC GT PRN (17:05)
[2018-02-26] MEDS ORDERED: DEXTROSE 50%-WATER 50 ML DISP.SYRIN IV PRN (17:05)
[2018-02-26] MEDS ORDERED: OMEPRAZOLE 10 MG CAPSULE.DR GT SCH (17:05)
[2018-02-26] MEDS ORDERED: LORAZEPAM INJ 2 MG/ML VIAL IM PRN (17:05)
[2018-02-26] MEDS ORDERED: HYDROGEN PEROXIDE 480 ML BOTTLE TP PRN (17:05)
[2018-02-26] MEDS ORDERED: ACETAMINOPHEN 650 MG/20.3 ML UDC GT PRN (17:30)
[2018-02-26] MEDS: BLOOD SUGAR DIAGNOSTIC 1 EACH STRIP IN SCH ×2 (17:40→23:20)
[2018-02-26] MEDS: CHLORHEXIDINE GLUCONATE 15 ML UDC MM SCH (18:17)
[2018-02-26] MEDS: POLYVINYL ALCOHOL 15 ML BOTTLE EACHEYE SCH ×2 (18:17→23:08)
[2018-02-26] MEDS: Z GUARD REMEDY 4 OZ OINT TP SCH (18:17)
--- NOTE | 2018-02-26 18:40 | NUR ---
ICU/RN PM PM CARE PROVIDED.WOUND DRESSING DONE ORDERED.PT IS STILL ON RITUXIMAB IV .NO S/S OF REACTION NOTED.V/S STABLE,AFEBRILE .NO PAIN REPORTED AT THIS TIME.REPOSITION FOR COMFORT.
[2018-02-26] MEDS: MYCOPHENOLATE MOFETIL SUSP 500 MG/2.5 ML UDC GT SCH (18:58)
[2018-02-26] MEDS: ALBUTEROL FS 2.5 MG/3 ML VIAL.NEB NEB SCH (19:45)
--- NOTE | 2018-02-26 20:12 | NUR ---
PT RECEIVED ON COOL AEROSOL 28% VIA TRACH COLLAR. PT IS AWAKE NO SOB. O2 SAT 99%. CLEAR DM B/S. AMBU BAG AT BEDSIDE. WILL CONTINUE TO MONITOR. Addendum: 02/26/18 at 2015 by MACY GARSIA RT Amended: Links added.
[2018-02-26] MEDS: HYDROGEN PEROXIDE 480 ML BOTTLE TP SCH (21:00)
--- NOTE | 2018-02-26 21:00 | NUR ---
DEMONSTRATOR SALES - REC'D PT. TRACHED-ON T-TUBE/COOL AEROSOL MASK AT 28%. LUNG CHANEL AUSC. ARE DIM. O2 SATS ARE >98%. pharmD PHONED RN TO ASK RE: IV RITUXIMAS. ACCORDING TO RX, IV MED WAS SUPPOSE TO BE INFUSED ALREADY. I STATED THAT I WILL TITRATE UP MODERATELY, & WATCH CLOSELY FOR ANY REACTION. PT'S IV RITUXIMAS WAS DONE AT 22:45PM. PEG IS CLAMPED. ALL MEDS ADM. THRU PEG. PT. CANNOT WEAR A GOWN, SINCE IT RUBS ON HER BODY. PT'S BODY IS SCATTERED W/ PEMPHIGUS VULGARIS ABRASIONS. MOST ABRASIONS ARE COVERED W/OIL EMMERSION DRSGS. AFEBRILE. ALL PULSES PALPABLE X 4 EXT. PIV'S X 2 HAVE ALL PORTS PATENT TO FLUSH. PT.IS DIAPERED. HEART MONITOR SHOWS NSR/70-80'S. NORMAL SBP'S. PT'S EYES OPEN SPONTANEOUSLY. PT.WILL NOT TRACK ON COMMAND, BUT WILL JUST "STARE" AT YOU W/TACTILE STIMULUS. CONT. POC. PT. HAS TRANSFER ORDERS TO TIMOTHY.
[2018-02-26] MEDS: LEVETIRACETAM SOL (5 ML) 100 MG/ML UDC GT SCH (23:07)
[2018-02-26] MEDS: POLYETHYLENE GLYCOL 3350 17 GM POWD.PACK GT SCH (23:07)
[2018-02-26] MEDS: SENNOSIDES 8.6 MG TABLET GT SCH (23:07)
[2018-02-26] MEDS: HEPARIN SODIUM, PORCINE 5000 UNITS/1 ML VIAL SQ SCH (23:09)
[2018-02-26] MEDS: INSULIN REGULAR, HUMAN 100 UNIT/ML 3 ML VIAL SQ PRN (23:19)
[2018-02-27] VITALS (16 sets, daily range): BP systolic 101–132; BP diastolic 32–75
[2018-02-27] MEDS: ALBUTEROL FS 2.5 MG/3 ML VIAL.NEB NEB SCH ×4 (00:50→20:00)
[2018-02-27] MEDS: POLYVINYL ALCOHOL 15 ML BOTTLE EACHEYE SCH ×3 (05:25→16:50)
[2018-02-27] MEDS: MYCOPHENOLATE MOFETIL SUSP 500 MG/2.5 ML UDC GT SCH ×2 (05:25→16:50)
[2018-02-27] MEDS: PANTOPRAZOLE 40 MG/PACK PACK GT SCH (05:27)
--- NOTE | 2018-02-27 06:00 | NUR ---
TIMOTHY/RN NOTES: RECEIVED PT. FROM ICU W/ CHARGE NURSE ED AND NURSE SHIRA W/ ACLS PROTOCOL. PT. IS ALERT, DOES NOT TRACK, NON VERBAL, CONTRACTED W/ LEFT KNEE AND LEFT ARM. W/ TRACH T - PIECE COOL AEROSOL 28% AT 5 LPM SAT 100%. ON TELE MONITOR W/ SR AT 74. GT PATENT AND INTACT W/ NO RESIDUAL NOTED. HAS ELIZABETH PICC LINE AND LUE G 18 PATENT AND INTACT W/ NO S/S OF INFECTION/INFILTRATION NOTED. BS THIS AM WAS 108. HAS MULTIPLE SKIN ABRASION ON UPPER CHEST, MOUTH W/ OIL EMULSION DRESSING. INCONTINENT CARE RENDERED. MAINTAINED ASPIRATION AND SEIZURE PRECAUTION. WILL CONTINUE TO MONITOR.
[2018-02-27] MEDS: BLOOD SUGAR DIAGNOSTIC 1 EACH STRIP IN SCH ×3 (06:08→18:00)
[2018-02-27] MEDS: CHLORHEXIDINE GLUCONATE 15 ML UDC MM SCH ×2 (06:10→18:00)
--- NOTE | 2018-02-27 07:15 | NUR ---
TIMOTHY/RN NOTES: REPORT GIVEN TO AM NURSE FOR LISA.
--- NOTE | 2018-02-27 07:30 | NUR ---
TIMOTHY RN NOTE RECEIVED PT ON BED,TRACHED-ON T-TUBE/COOL AEROSOL AT 5 L/MIN, 28%. LUNGS ARE DIM. O2 SATS ARE >98%. PEG IS CLAMPED. MOST ABRASIONS ARE COVERED W/OIL EMULSION DRSGS. AFEBRILE. ALL PULSES PALPABLE X 4 EXT. MIDLINE IN LEFT UPPER ARM PATENT TO FLUSH. PT.IS DIAPERED. HEART MONITOR SHOWS NSR AT 70'S. NORMAL SBP'S. PT'S EYES OPEN SPONTANEOUSLY. TRACKS, RIGID UPON TACTILE STIMULUS. CALL LIGHT WITHIN REACH, WILL CONTINUE TO MONITOR, SEIZURE PRECAUTIONS IN PLACE, BED IN LOW AND LOCKED POSITION, KCI MATTRESS IN PLACE.
[2018-02-27] MEDS: LEVETIRACETAM SOL (5 ML) 100 MG/ML UDC GT SCH ×2 (08:57→21:20)
[2018-02-27] MEDS: FOLIC ACID 1 MG TABLET GT SCH ×2 (08:57→16:43)
[2018-02-27] MEDS: ACETAMINOPHEN 650 MG/20.3 ML UDC GT SCH ×2 (08:57→21:21)
[2018-02-27] MEDS: predniSONE 20 MG TABLET GT SCH (08:58)
[2018-02-27] MEDS: SERTRALINE HCL 25 MG TABLET GT SCH (08:58)
[2018-02-27] MEDS: SENNOSIDES 8.6 MG TABLET GT SCH ×2 (08:58→21:21)
[2018-02-27] MEDS: BACLOFEN (10 MG) 10 MG TABLET GT SCH ×3 (08:58→16:43)
[2018-02-27] MEDS: Z GUARD REMEDY 4 OZ OINT TP SCH ×2 (08:59→21:20)
[2018-02-27] MEDS: HYDROGEN PEROXIDE 480 ML BOTTLE TP SCH ×2 (08:59→21:18)
[2018-02-27] MEDS: HEPARIN SODIUM, PORCINE 5000 UNITS/1 ML VIAL SQ SCH ×2 (09:00→21:19)
[2018-02-27] MEDS: JEVITY 1.2 CAL 1,000 ML BOTTLE GT PRN (13:31)
--- NOTE | 2018-02-27 14:00 | NUR ---
RN NOTE PT REFUSED MOUTH CARE, LIPS ARE CRUSTED, AND COVERED WITH LEISIONS, ATTEMPTED GENTLE APPROACH, PT KEPT TURNING HER HEAD AWAY.
--- NOTE | 2018-02-27 20:05 | NUR ---
RN NOTES RECEIVED PATIENT LYING COMFORTABLY IN BED WITH EYES OPEN. NOTED WITH TRACKING. NO RESPIRATORY DISTRESS OR SHORTNESS OF BREATH. BREATHING EVEN AND UNLABORED. COOL AEROSOL VIA TPIECE WELL TOLERATED. GTUBE INTACT AND IN PLACE. FEEDING WELL TOLERATED. HOB ELEVATED. NO EPISODEOF NAUSEA OR VOMITING. KEPT CLEAN AND DRY. WILL CONTINUE TO MONITOR.
[2018-02-27] MEDS: POLYETHYLENE GLYCOL 3350 17 GM POWD.PACK GT SCH (21:20)
[2018-02-28] VITALS: BP 126/79
[2018-02-28] MEDS: INSULIN REGULAR, HUMAN 100 UNIT/ML 3 ML VIAL SQ PRN ×4 (00:19→17:09)
[2018-02-28] MEDS: BLOOD SUGAR DIAGNOSTIC 1 EACH STRIP IN SCH ×4 (00:19→17:04)
[2018-02-28] MEDS: POLYVINYL ALCOHOL 15 ML BOTTLE EACHEYE SCH ×4 (00:38→16:40)
[2018-02-28] MEDS: ALBUTEROL FS 2.5 MG/3 ML VIAL.NEB NEB SCH ×3 (01:46→13:39)
[2018-02-28 04:00] VITALS: BP 110/67
[2018-02-28] MEDS: MYCOPHENOLATE MOFETIL SUSP 500 MG/2.5 ML UDC GT SCH ×2 (05:49→17:03)
[2018-02-28] MEDS: PANTOPRAZOLE 40 MG/PACK PACK GT SCH (05:50)
[2018-02-28] MEDS: CHLORHEXIDINE GLUCONATE 15 ML UDC MM SCH ×2 (05:50→16:40)
--- NOTE | 2018-02-28 07:02 | NUR ---
RN NOTES PATIENT IN BED, NO DISTRESS NOTED. NO SIGNIFICANT CHANGE OF CONDITION. VITAL SIGNS WNL. NO PHYSICAL MANIFESTATION OF PAIN OR DISCOMFORT. KEPT CLEAN AND DRY. WILL ENDORSE TO AM SHIFT FOR CONTINUITY OF CARE.
[2018-02-28 08:00] VITALS: BP 140/71
[2018-02-28] MEDS: SENNOSIDES 8.6 MG TABLET GT SCH (08:19)
[2018-02-28] MEDS: BACLOFEN (10 MG) 10 MG TABLET GT SCH ×3 (08:31→17:02)
[2018-02-28] MEDS: predniSONE 20 MG TABLET GT SCH (08:31)
[2018-02-28] MEDS: FOLIC ACID 1 MG TABLET GT SCH ×2 (08:31→17:02)
[2018-02-28] MEDS: SERTRALINE HCL 25 MG TABLET GT SCH (08:31)
[2018-02-28] MEDS: LEVETIRACETAM SOL (5 ML) 100 MG/ML UDC GT SCH (08:31)
[2018-02-28] MEDS: ACETAMINOPHEN 650 MG/20.3 ML UDC GT SCH (08:32)
[2018-02-28] MEDS: HEPARIN SODIUM, PORCINE 5000 UNITS/1 ML VIAL SQ SCH (08:32)
[2018-02-28] MEDS: HYDROGEN PEROXIDE 480 ML BOTTLE TP SCH (08:33)
[2018-02-28] MEDS: Z GUARD REMEDY 4 OZ OINT TP SCH (08:34)
[2018-02-28 12:00] VITALS: BP 128/63
[2018-02-28] MEDS: JEVITY 1.2 CAL 1,000 ML BOTTLE GT PRN (14:00)
[2018-02-28 16:00] VITALS: BP 123/70
--- NOTE | 2018-02-28 17:20 | NUR ---
RN NOTE PT DISCHARGED BACK TO [facility], REPORT GIVEN TO KENYATTA BARNARD, DISCHARGE INSTRUCTIONS GIVEN TO RN, DUE TO PT UNABLE TO COMPREHEND, EXIT CARE DONE, TEACHING INSTRUCTIONS PROVIDED, PICTURES OF THE WOUNDS TAKEN AND PLACED IN THE CHART. PT HAD NO BELONGINGS, ELIZABETH MIDLINE LEFT IN PLACE, FLUSHES WELL.
== END 2018-02-28 17:30 | DRG 595 ==
LOC: ICU 08:46 → TELE-TD 02-27 05:40 → TELE1 02-28 09:31
PROVIDERS: ADMIT Internal Medicine; ATTEND Internal Medicine
PROC: 05H633Z Insertion of Infusion Device into Left Subclavian Vein, Percutaneous Approach (ICD-10-PCS; principal; 2018-02-26)
PROC: B547ZZA Ultrasonography of Left Subclavian Vein, Guidance (ICD-10-PCS; 2018-02-26)
DX: L10.0 Pemphigus vulgaris (principal); G93.40 Encephalopathy, unspecified; J96.10 Chronic respiratory failure, unspecified whether with hypoxia or hypercapnia; E46 Unspecified protein-calorie malnutrition; Z68.1 Body mass index [BMI] 19.9 or less, adult; G40.409 Other generalized epilepsy and epileptic syndromes, not intractable, without status epilepticus; Z93.0 Tracheostomy status; Z87.820 Personal history of traumatic brain injury; Z99.81 Dependence on supplemental oxygen; Z98.82 Breast implant status; R13.10 Dysphagia, unspecified
CPT/HCPCS: 31720; 36415; 71045-TC; 82962-TC; 87081-TC; 94640-TC; 94760-TC; A4606; A6253; A6403; J1100; J1200; J1644; J1815; J1953; J2405; J3490; J7040; J7050; J7517; Z7610

== ENCOUNTER 2018-03-12 06:09 | Inpatient (IN) | payer OTHER ==
[~2018-03-12] VITALS: Ht 167.6 cm; Wt 47.2 kg
[~2018-03-12 06:09] MED LIST changes: +ACET-868 GT; +ALLA266C2 TP; +BLOO-668 IN; -CARB200T GT; -CHOL100062 GT; -DEXT15DR6 EACHEYE; +DEXT50DI8 IV; +HYDR1SOL TP; +INSU100V3 SQ; -LACT-15 PO; +LACT-209 GT; +MYCO500T GT; +NON-FORMULARY; +OMEP40CA37 GT; +POLY15DR40 EACHEYE; +PRED20TA GT
[2018-03-12 06:18] VITALS: BP 112/61
--- NOTE | 2018-03-12 07:00 | NUR ---
RN ADMITTING NOTES RECEIVED PATIENT FROM [facility]AC[facility] VIA BED. PATIENT UNDER THE CARE OF DR. CHAIDEZ. PATIENT IS TRANSFERRED TO UNIT FOR DUE ADMINISTRATION OF RITUXIMAB AND CLOSE MONITORING. CALLED AND SPOKE WITH DR. CHAIDZE, ADMISSION ORDERS OBTAINED, CONTINUE ALL MEDS AND TREATMENT ORDERS AND PROCEED WITH RITUXIMAB PER PROTOCOL. FOLLOWED UP WITH GLADIS, PHARMACIST WITH REGARDS TO THE RITUXIMAB ORDER; GLADIS TO REVIEW ORDERS. PARTIAL ADMISSION DONE, ENDORSED ACCORDINGLY TO AM NURSE FOR COMPLETION. SAFETY AND COMFORT ENSURED. BED IN LOW AND LOCKED POSITION. CALL LIGHT IN REACH. ON TRACH COLLAR, PORTEX 9 CUFFED. SATURATING WELL. VSS. SR ON TELE WITH HR IN THE 80s.
--- NOTE | 2018-03-12 07:00 | NUR ---
RN NOTES RECEIVED PT ON BED, ALERT/ NONVERBAL , TRACH DEPENDENT, WITH COOL AEROSOL AT 28% , NO SOB NOTED, TRACH CARE DONE, ON TELE SR, HR IN 90'S , MULTIPLE SKIN LESIONS NOTED ON THE BODY , WOUND CONSULT ORDERED , TF GEVITY AT 80CC/ HR RUNNING VIA GT , NO RESIDUAL NOTED, L UPPER ARM MIDLINE SITE CLEAN , DRY AND INTACT, SR UP x3, CALL LIGHT WITHIN EASY REACH, BED LOCKED AND IN LOWEST POSITION , CONTINUE TO MONITOR .
[2018-03-12 08:00] VITALS: BP 119/55
[2018-03-12] MEDS ORDERED: ONDANSETRON HCL/PF 4 MG/2 ML VIAL IV ONE (09:00)
[2018-03-12] MEDS ORDERED: diphenhydrAMINE HCL 50 MG/ML VIAL IV ONE (09:00)
[2018-03-12] MEDS ORDERED: FAMOTIDINE/PF INJ 20 MG/2 ML VIAL IV ONE (09:00)
[2018-03-12] MEDS ORDERED: ACETAMINOPHEN 650 MG/20.3 ML UDC GT ONE (09:00)
[2018-03-12] MEDS ORDERED: DEXAMETHASONE SOD PHOSPHATE 10 MG/ML VIAL IV ONE (09:00)
[2018-03-12] MEDS ORDERED: RITUXIMAB IV ONE ×2 (09:30→10:00)
[2018-03-12] MEDS ORDERED: NS 0.9% IV ONE ×2 (09:30→10:00)
--- NOTE | 2018-03-12 10:25 | NUR ---
WOUND CARE CONSULT: PT PRESENTS WITH MULTIPLE LESIONS ON BODY AND DRY LESIONS ON MOUTH AND FACE, PRESENT ON ADMISSION. PT HAS OPEN LESIONS TO SACRAL/BUTTOCKS AND PERINEAL AREAS WELL. PT IS INCONTINENT. RECOMMENDATIONS MADE FOR SKIN PROTECTION. DEFER TO MD FOR LESIONS. PT ON FIRST STEP MATTRESS. ALL SKIN PROTECTION MEASURES IN PLACE AND DISCUSSED WITH NURSING STAFF. WILL SEE PRN. MD IN AGREEMENT WITH PLAN OF CARE.
[2018-03-12] MEDS ORDERED: Z GUARD REMEDY 2 OZ OINT TP PRN (10:30)
[2018-03-12] MEDS ORDERED: LORAZEPAM INJ 2 MG/ML VIAL IM PRN (11:00)
[2018-03-12] MEDS ORDERED: ACETAMINOPHEN 650 MG/20.3 ML UDC GT PRN (11:00)
[2018-03-12] MEDS ORDERED: DEXTROSE 50%-WATER 50 ML DISP.SYRIN IV PRN (11:00)
[2018-03-12] MEDS ORDERED: ALBUTEROL HALF STRENGTH 1.25 MG/3 ML VIAL.NEB NEB PRN (11:00)
[2018-03-12] MEDS ORDERED: MAGNESIUM HYDROXIDE 30 ML UDC GT PRN (11:00)
[2018-03-12] MEDS ORDERED: IPRATROPIUM NEB FS 0.5 MG/2.5 ML AMPUL.NEB NEB PRN (11:00)
[2018-03-12] MEDS: SERTRALINE HCL 25 MG TABLET GT SCH (11:52)
[2018-03-12] MEDS: LEVETIRACETAM SOL (5 ML) 100 MG/ML UDC GT SCH ×2 (11:52→21:10)
[2018-03-12] MEDS: HEPARIN SODIUM, PORCINE 5000 UNITS/1 ML VIAL SQ SCH ×2 (11:53→21:19)
[2018-03-12] MEDS: Z GUARD REMEDY 2 OZ OINT TP SCH (11:54)
[2018-03-12] MEDS: POLYVINYL ALCOHOL 15 ML BOTTLE EACHEYE SCH ×3 (11:54→23:50)
[2018-03-12] MEDS: predniSONE 20 MG TABLET GT SCH (11:56)
[2018-03-12 12:00] VITALS: BP_SYST 93; BP_SYST 98; BP_DIAS 46; BP_DIAS 48
[2018-03-12] MEDS: BLOOD SUGAR DIAGNOSTIC 1 EACH STRIP IN SCH ×3 (12:14→23:51)
[2018-03-12] MEDS: BACLOFEN (10 MG) 10 MG TABLET GT SCH ×2 (12:14→17:18)
[2018-03-12] MEDS: ALBUTEROL FS 2.5 MG/3 ML VIAL.NEB NEB SCH ×2 (13:59→19:56)
--- NOTE | 2018-03-12 14:00 | NUR ---
RN NOTES RITUXIMAB INFUSION COMPLETED, PT TOLERATED WELL , NO REACTION NOTED , CONTINUE TO MONITOR .
--- NOTE | 2018-03-12 14:00 | NUR ---
RN NOTES NO BELTRAN PER DR CHAIDEZ AT THIS TIME .
[2018-03-12 16:00] VITALS: BP 105/55
[2018-03-12] MEDS: JEVITY 1.2 CAL 1,000 ML BOTTLE GT PRN (16:50)
--- NOTE | 2018-03-12 17:13 | NUR ---
Patient is trach dependent,currently resides at [facility] [phone].Totally dependent with adl's. Plan is to return to [facility] when stable. Addendum: 03/12/18 at 1714 by KEYONNA TAY RN Amended: Links added.
[2018-03-12] MEDS: FOLIC ACID 1 MG TABLET GT SCH (17:18)
[2018-03-12] MEDS: MYCOPHENOLATE MOFETIL SUSP 500 MG/2.5 ML UDC GT SCH (17:20)
[2018-03-12] MEDS: CHLORHEXIDINE GLUCONATE 15 ML UDC MM SCH (17:20)
[2018-03-12] MEDS: INSULIN REGULAR, HUMAN 100 UNIT/ML 3 ML VIAL SQ PRN ×2 (17:23→23:55)
--- NOTE | 2018-03-12 18:21 | NUR ---
RN NOTES PT STABLE , TOLERATING TF WELL, L UPPER ARM MIDLINE SITE CLEAN, DRY AND INTACT, SR UP X3, CALL LIGHT WITHIN EASY REACH, NO SIGNIFICANT CHANGES NOTED ON THIS SHIFT.
--- NOTE | 2018-03-12 19:34 | NUR ---
TIMOTHY RN OPENING NOTES RECEIVED REPORT FROM REYNA YOU. PATIENT A/A/O X1 TO NAME & RESPONDS TO TACTILE STIMULI. NON-VERBAL & UNABLE TO MAKE NEEDS KNOWN. BREATHING EVEN & UNLABORED, TOLERATING COOL AEROSOL @ 28%. ON TELE W/ SINUS RHYTHM, HR 79. NO RESPIRATORY DISTRESS NOTED. LEFT UPPER ARM MIDLINE INTACT & PATENT W/ DRESSING CDI, TKO. G-TUBE FLUSHING WELL & TOLERATING GTF JEVITY 1.2 @ 80 ML/HR. NO RESIDUAL NOTED @ THIS TIME. SAFETY MEASURES IN PLACE W/ SIDE RAILS UP & BED LOCKED & IN LOWEST POSITION. BED ALARM ON. TURNED & REPOSITIONED FOR COMFORT. WILL CONTINUE TO MONITOR CLOSELY.
[2018-03-12 20:00] VITALS: BP 112/54
[2018-03-12] MEDS: ACETAMINOPHEN 650 MG/20.3 ML UDC GT SCH (21:10)
[2018-03-12] MEDS: POLYETHYLENE GLYCOL 3350 17 GM POWD.PACK GT SCH (21:10)
[2018-03-12] MEDS: SENNOSIDES 8.6 MG TABLET GT SCH (21:10)
[2018-03-12 21:15] VITALS: BP 112/54
[2018-03-13] VITALS: BP 119/51
[2018-03-13] MEDS: ALBUTEROL FS 2.5 MG/3 ML VIAL.NEB NEB SCH ×4 (02:17→19:30)
[2018-03-13 04:00] VITALS: BP 118/55
[2018-03-13] MEDS: BLOOD SUGAR DIAGNOSTIC 1 EACH STRIP IN SCH ×4 (05:44→23:25)
[2018-03-13] MEDS: INSULIN REGULAR, HUMAN 100 UNIT/ML 3 ML VIAL SQ PRN ×3 (05:44→17:36)
[2018-03-13] MEDS: MYCOPHENOLATE MOFETIL SUSP 500 MG/2.5 ML UDC GT SCH ×2 (05:46→17:35)
[2018-03-13] MEDS: PRILOSEC 20 MG GT SCH (05:46)
[2018-03-13] MEDS: POLYVINYL ALCOHOL 15 ML BOTTLE EACHEYE SCH ×4 (05:46→23:26)
[2018-03-13] MEDS: CHLORHEXIDINE GLUCONATE 15 ML UDC MM SCH ×2 (05:46→17:36)
[2018-03-13] MEDS ORDERED: PANTOPRAZOLE 40 MG/PACK PACK GT SCH (06:00)
--- NOTE | 2018-03-13 07:00 | NUR ---
RN NOTES RECEIVED PT ON BED, ALERT/ NONVERBAL , TRACH DEPENDENT, TRACH CARE DONE, ON 28% O2 VIA TRACH COLLAR, , NO SOB NOTED, ON TELE SR , HR IN 90'S , TF RESTARTED AT 80CC/HR VIA GT , L UPPER ARM MIDLINE SITE CLEAN, DRY AND INTACT , SR UP x3, CALL LIGHT WITHIN EASY REACH, BED LOCKED AND IN LOWEST POSITION , CONTINUE TO MONITOR CLOSLY.
[2018-03-13 08:00] VITALS: BP 117/58
[2018-03-13] MEDS: predniSONE 20 MG TABLET GT SCH (08:21)
[2018-03-13] MEDS: LEVETIRACETAM SOL (5 ML) 100 MG/ML UDC GT SCH ×2 (08:21→21:31)
[2018-03-13] MEDS: SENNOSIDES 8.6 MG TABLET GT SCH ×2 (08:21→21:32)
[2018-03-13] MEDS: FOLIC ACID 1 MG TABLET GT SCH ×2 (08:21→16:35)
[2018-03-13] MEDS: BACLOFEN (10 MG) 10 MG TABLET GT SCH ×3 (08:21→16:35)
[2018-03-13] MEDS: ACETAMINOPHEN 650 MG/20.3 ML UDC GT SCH ×2 (08:23→21:31)
[2018-03-13] MEDS: SERTRALINE HCL 25 MG TABLET GT SCH (08:23)
[2018-03-13] MEDS: HEPARIN SODIUM, PORCINE 5000 UNITS/1 ML VIAL SQ SCH ×2 (08:24→21:31)
[2018-03-13] MEDS: Z GUARD REMEDY 2 OZ OINT TP SCH (08:24)
[2018-03-13] MEDS: JEVITY 1.2 CAL 1,000 ML BOTTLE GT PRN (08:32)
[2018-03-13 12:00] VITALS: BP 110/58
[2018-03-13 16:00] VITALS: BP 103/52
--- NOTE | 2018-03-13 18:21 | NUR ---
RN NOTES VSS STABLE , TOLERATING TF WELL , NO RESIDUAL NOTED, NO SIGNIFICANT CHANGES NOTED ON THIS SHIFT, WILL ENDORSE TO SPIKE MACHINE OPERATOR NURSE FOR CONTINUITY OF CARE .
[2018-03-13 20:00] VITALS: BP 111/64
[2018-03-13] MEDS: POLYETHYLENE GLYCOL 3350 17 GM POWD.PACK GT SCH (21:31)
[2018-03-14] VITALS (9 sets, daily range): BP systolic 104–124; BP diastolic 49–70
[2018-03-14] MEDS: ALBUTEROL FS 2.5 MG/3 ML VIAL.NEB NEB SCH ×4 (02:09→19:41)
[2018-03-14] MEDS: JEVITY 1.2 CAL 1,000 ML BOTTLE GT PRN (05:22)
[2018-03-14] MEDS: MYCOPHENOLATE MOFETIL SUSP 500 MG/2.5 ML UDC GT SCH ×2 (05:23→16:57)
[2018-03-14] MEDS: CHLORHEXIDINE GLUCONATE 15 ML UDC MM SCH ×2 (05:23→18:35)
[2018-03-14] MEDS: PRILOSEC 20 MG GT SCH (05:24)
[2018-03-14] MEDS: BLOOD SUGAR DIAGNOSTIC 1 EACH STRIP IN SCH ×3 (05:24→18:34)
[2018-03-14] MEDS: POLYVINYL ALCOHOL 15 ML BOTTLE EACHEYE SCH ×3 (05:24→16:57)
--- NOTE | 2018-03-14 06:46 | NUR ---
RN NOTES PATIENT WITH NO ACUTE CHANGE IN CONDITION OBSERVED OVERNIGHT. REMAINS SR IN THE 80s. COOL AEROSOL VIA TRACH, AIRWAY KEPT CLEAR AND PATENT, SUCTIONED NEEDED. GTF TOLERATED WELL WITH NO GASTRIC RESIDUAL NOTED, FLUSHED AND KEPT PATENT. WOUND TREATMENT RENDERED ORDERED. KEPT CLEAN AND DRY. TURNED AND REPOSITIONED. SAFETY AND COMFORT ENSURED. BED IN LOW AND LOCKED POSITION. WILL ENDORSE ACCORDINGLY FOR CONTINUITY OF CARE.
--- NOTE | 2018-03-14 07:56 | NUR ---
TIMOTHY RN OPENING NOTES RECEIVED PATIENT A/O X1 TO NAME & RESPONDS TO TACTILE STIMULI. BREATHING EVEN & UNLABORED,NO SHORTNESS OF BREATH, TOLERATING COOL AEROSOL @ 28%. ON TELE W/ SINUS RHYTHM. LEFT UPPER ARM MIDLINE INTACT. WITH GTF JEVITY 1.2 @ 80 ML/HR, GT IN PATENT ON FLUSH, NO RESIDUAL NOTED @ THIS TIME. SAFETY MAINTAINED W/ SIDE RAILS UP, BED LOCKED & IN LOWEST POSITION. CALL LIGHT WITHIN EASY REACH, TURNED & REPOSITIONED FOR COMFORT. WILL CONTINUE TO MONITOR CLOSELY.
[2018-03-14] MEDS: FOLIC ACID 1 MG TABLET GT SCH ×2 (08:49→16:54)
[2018-03-14] MEDS: SENNOSIDES 8.6 MG TABLET GT SCH ×2 (08:49→21:35)
[2018-03-14] MEDS: SERTRALINE HCL 25 MG TABLET GT SCH (08:49)
[2018-03-14] MEDS: BACLOFEN (10 MG) 10 MG TABLET GT SCH ×3 (08:50→16:54)
[2018-03-14] MEDS: predniSONE 20 MG TABLET GT SCH (08:50)
[2018-03-14] MEDS: LEVETIRACETAM SOL (5 ML) 100 MG/ML UDC GT SCH ×2 (08:50→21:34)
[2018-03-14] MEDS: ACETAMINOPHEN 650 MG/20.3 ML UDC GT SCH ×2 (08:50→21:35)
[2018-03-14] MEDS: HEPARIN SODIUM, PORCINE 5000 UNITS/1 ML VIAL SQ SCH ×2 (08:52→21:43)
[2018-03-14] MEDS: Z GUARD REMEDY 2 OZ OINT TP SCH (08:59)
--- NOTE | 2018-03-14 19:21 | NUR ---
T/D NURSE NOTES SEEN AND EXAMINED BY DR LOPEZ. UPDATED ON PATIENT'S CONDITION. MD VERBALIZED DISCHARGE'S DISCHARGED
--- NOTE | 2018-03-14 19:30 | NUR ---
RN INITIAL SHIFT NOTES RECEIVED REPORT FROM NURSE STANLEY. PATIENT A/A/O X1 TO NAME & RESPONDS TO TACTILE STIMULI. NON-VERBAL & UNABLE TO MAKE NEEDS KNOWN. NO RESPIRATORY DISTRESS NOTED, BREATHING EVEN & UNLABORED, TRACH MIDLINE AND INTACT, ON TRACHMASK-COOLAEROSOL @ 28% FIO2. ON TELEMETRY MONITORING W/ SINUS RHYTHM, HR 77 AT THIS TIME. LEFT UPPER ARM MIDLINE INTACT & PATENT W/ DRESSING CDI, TKO. G-TUBE FLUSHING WELL & TOLERATING GTF JEVITY 1.2 @ 80 ML/HR. NO RESIDUAL NOTED @ THIS TIME. SAFETY MEASURES IN PLACE W/ SIDE RAILS UP & BED LOCKED & IN LOWEST POSITION. BED ALARM ON. TURNED & REPOSITIONED FOR COMFORT. WILL CONTINUE TO MONITOR CLOSELY.
--- NOTE | 2018-03-14 19:40 | NUR ---
T/D NURSE NOTES ENDORSED PATIENT TO NIGHT NURSE FOR CONTINUITY OF CARE, NO ACUTE CHANGES NOTED WITHIN THE SHIFT, NO SHORTNESS OF BREATH, VITAL SIGNS WITHIN NORMAL RANGES, KEPT COMFORTABLE, SAFETY MAINTAINED, BED LOW AND LOCKED.
[2018-03-14] MEDS: POLYETHYLENE GLYCOL 3350 17 GM POWD.PACK GT SCH (21:35)
--- NOTE | 2018-03-14 22:00 | NUR ---
RN NOTES ALL DUE MEDS GIVEN
--- NOTE | 2018-03-14 22:30 | NUR ---
RN NOTES ALL WOUNDS/SKIN ISSUES PHOTOGRAPHED AND DOCUMENTED PER PROTOCOL. PATIENT DISCHARGED/TRANSFERRED TO SUB ACUTE UNIT VIA ACLS PROTOCOL. PATIENT TOLERATED TRANSFER WELL, CARE ENDORSED TO NURSE STEWART FOR CONTINUITY OF CARE
== END 2018-03-14 22:30 | DRG 595 ==
LOC: MEDSG1 06:09 → TELE-TD 06:54
PROVIDERS: ADMIT Internal Medicine; ATTEND Internal Medicine
PROC: 05H633Z Insertion of Infusion Device into Left Subclavian Vein, Percutaneous Approach (ICD-10-PCS; principal; 2018-03-12)
PROC: B547ZZA Ultrasonography of Left Subclavian Vein, Guidance (ICD-10-PCS; 2018-03-12)
DX: L10.0 Pemphigus vulgaris (principal); G93.40 Encephalopathy, unspecified; J96.10 Chronic respiratory failure, unspecified whether with hypoxia or hypercapnia; G40.409 Other generalized epilepsy and epileptic syndromes, not intractable, without status epilepticus; M62.462 Contracture of muscle, left lower leg; T38.0X5A Adverse effect of glucocorticoids and synthetic analogues, initial encounter; Y92.129 Unspecified place in nursing home as the place of occurrence of the external cause; R73.9 Hyperglycemia, unspecified; Z93.0 Tracheostomy status; Z93.1 Gastrostomy status; R13.10 Dysphagia, unspecified; D64.9 Anemia, unspecified; K12.30 Oral mucositis (ulcerative), unspecified; K12.1 Other forms of stomatitis
CPT/HCPCS: 31720; 82962-TC; 94640-TC; A4606; A6253; A6403; J1100; J1200; J1644; J1815; J1953; J2405; J3490; J7040; J7517

== ENCOUNTER 2018-07-20 | Inpatient (IN) | payer MEDICARE, OTHER ==
[~2018-07-20] VITALS: Ht 165.1 cm; Wt 64.4 kg
[~2018-07-20] MED LIST changes: +OMEP40CA13 GT; -OMEP40CA37 GT; +POLY17PO29 GT; -POLY17PO3 GT; -SENN-167 GT; +SENN-168 GT
[2018-07-21] MEDS ORDERED: LORAZEPAM INJ 2 MG/ML VIAL IM PRN (09:00)
[2018-07-21] MEDS ORDERED: HYDROGEN PEROXIDE 480 ML BOTTLE TP PRN (09:00)
[2018-07-21] MEDS ORDERED: MAGNESIUM HYDROXIDE 30 ML UDC GT PRN (09:00)
[2018-07-21] MEDS ORDERED: MYCOPHENOLATE MOFETIL SUSP 500 MG/2.5 ML UDC GT SCH (09:00)
[2018-07-21] MEDS: FOLIC ACID 1 MG TABLET GT SCH ×2 (09:17→16:20)
[2018-07-21] MEDS: BACLOFEN (10 MG) 10 MG TABLET GT SCH ×3 (09:17→16:21)
[2018-07-21] MEDS: LEVETIRACETAM SOL (5 ML) 100 MG/ML UDC GT SCH ×2 (09:17→21:29)
[2018-07-21] MEDS: SENNOSIDES 8.6 MG TABLET GT SCH ×2 (09:18→21:29)
[2018-07-21] MEDS: predniSONE 10 MG TABLET GT SCH (09:18)
[2018-07-21] MEDS: SERTRALINE HCL 25 MG TABLET GT SCH (09:18)
[2018-07-21] MEDS: HEPARIN SODIUM, PORCINE 5000 UNITS/1 ML VIAL SQ SCH ×2 (09:18→21:30)
[2018-07-21] MEDS: Z GUARD REMEDY 4 OZ OINT TP SCH ×4 (09:19→21:32)
[2018-07-21] MEDS: HYDROGEN PEROXIDE 480 ML BOTTLE TP SCH ×2 (09:19→21:30)
--- NOTE | 2018-07-21 09:53 | NUR ---
Please see resident's previous account [id number] for all assessments and nurses notes. Originally admitted on 10/18/2012; readmission 03/14/2018.
--- NOTE | 2018-07-21 10:41 | NUR ---
Please see resident's previous account [phone] for Social Service assessments, evaluations and notes.
[2018-07-21] MEDS: POLYVINYL ALCOHOL 15 ML BOTTLE EACHEYE SCH ×3 (12:00→23:53)
[2018-07-21] MEDS: ALBUTEROL FS 2.5 MG/3 ML VIAL.NEB NEB SCH ×2 (13:30→14:39)
[2018-07-21] MEDS: JEVITY 1.2 CAL 1,000 ML BOTTLE GT PRN (16:21)
[2018-07-21] MEDS: MYCOPHENOLATE MOFETIL SUSP 500 MG/2.5 ML UDC GT SCH (17:13)
[2018-07-21] MEDS: CHLORHEXIDINE GLUCONATE 15 ML UDC MM SCH (17:13)
[2018-07-21 20:00] VITALS: BP 134/57
--- NOTE | 2018-07-21 20:13 | NUR ---
RT NOTE SCHEDULED ORDERED BREATHING TREATMENT GIVEN AT THIS TIME. NO SIGNS OF RESPIRATORY DISTRESS AT THIS TIME. WILL CONTINUE TO MONITOR FOR ADVERSE REACTIONS. Addendum: 07/21/18 at 2014 by ROBERT DONALDSON RT Amended: Links added.
[2018-07-21] MEDS: POLYETHYLENE GLYCOL 3350 17 GM POWD.PACK GT SCH (21:32)
[2018-07-22] MEDS: ALBUTEROL FS 2.5 MG/3 ML VIAL.NEB NEB SCH ×4 (01:44→20:10)
[2018-07-22] MEDS: OMEPRAZOLE 20 MG CAPSULE.DR GT SCH (05:41)
[2018-07-22] MEDS: CHLORHEXIDINE GLUCONATE 15 ML UDC MM SCH ×2 (05:41→17:47)
[2018-07-22] MEDS: POLYVINYL ALCOHOL 15 ML BOTTLE EACHEYE SCH ×3 (05:41→17:47)
[2018-07-22] MEDS: MYCOPHENOLATE MOFETIL SUSP 500 MG/2.5 ML UDC GT SCH ×2 (05:41→17:47)
[2018-07-22] MEDS: JEVITY 1.2 CAL 1,000 ML BOTTLE GT PRN ×2 (06:00→18:58)
[2018-07-22] MEDS: LEVETIRACETAM SOL (5 ML) 100 MG/ML UDC GT SCH ×2 (09:00→21:03)
[2018-07-22] MEDS: SERTRALINE HCL 25 MG TABLET GT SCH (09:00)
[2018-07-22] MEDS: predniSONE 10 MG TABLET GT SCH (09:00)
[2018-07-22] MEDS: Z GUARD REMEDY 4 OZ OINT TP SCH ×4 (09:00→21:04)
[2018-07-22] MEDS: HYDROGEN PEROXIDE 480 ML BOTTLE TP SCH ×2 (09:00→21:03)
[2018-07-22] MEDS: FOLIC ACID 1 MG TABLET GT SCH ×2 (09:00→16:23)
[2018-07-22] MEDS: BACLOFEN (10 MG) 10 MG TABLET GT SCH ×3 (09:00→16:23)
[2018-07-22] MEDS: HEPARIN SODIUM, PORCINE 5000 UNITS/1 ML VIAL SQ SCH ×2 (09:00→21:03)
[2018-07-22] MEDS: SENNOSIDES 8.6 MG TABLET GT SCH ×2 (09:00→21:03)
--- NOTE | 2018-07-22 20:30 | NUR ---
Seen by HA Spangler no new order.
[2018-07-22 20:31] VITALS: BP 122/58
[2018-07-22] MEDS: POLYETHYLENE GLYCOL 3350 17 GM POWD.PACK GT SCH (21:04)
[2018-07-23] MEDS: POLYVINYL ALCOHOL 15 ML BOTTLE EACHEYE SCH ×5 (00:27→23:58)
[2018-07-23] MEDS: ALBUTEROL FS 2.5 MG/3 ML VIAL.NEB NEB SCH ×4 (01:32→19:25)
[2018-07-23] MEDS: MYCOPHENOLATE MOFETIL SUSP 500 MG/2.5 ML UDC GT SCH ×2 (05:50→17:03)
[2018-07-23] MEDS: CHLORHEXIDINE GLUCONATE 15 ML UDC MM SCH ×2 (05:50→17:04)
[2018-07-23] MEDS: OMEPRAZOLE 20 MG CAPSULE.DR GT SCH (05:50)
[2018-07-23 08:00] VITALS: BP 115/70
[2018-07-23] MEDS: HEPARIN SODIUM, PORCINE 5000 UNITS/1 ML VIAL SQ SCH ×2 (09:00→21:06)
[2018-07-23] MEDS: LEVETIRACETAM SOL (5 ML) 100 MG/ML UDC GT SCH ×2 (09:00→21:05)
[2018-07-23] MEDS: SENNOSIDES 8.6 MG TABLET GT SCH ×2 (09:00→21:05)
[2018-07-23] MEDS: predniSONE 10 MG TABLET GT SCH (09:00)
[2018-07-23] MEDS: SERTRALINE HCL 25 MG TABLET GT SCH (09:00)
[2018-07-23] MEDS: Z GUARD REMEDY 4 OZ OINT TP SCH ×4 (09:00→21:06)
[2018-07-23] MEDS: FOLIC ACID 1 MG TABLET GT SCH ×2 (09:00→17:03)
[2018-07-23] MEDS: HYDROGEN PEROXIDE 480 ML BOTTLE TP SCH ×2 (09:00→21:06)
[2018-07-23] MEDS: BACLOFEN (10 MG) 10 MG TABLET GT SCH ×3 (09:00→17:03)
--- NOTE | 2018-07-23 13:55 | NUR ---
INTERDISCIPLINARY TEAM CONFERENCE (IDT) was held today. Resident's father Dr. Darrel Swift was not able to attend today's IDT meeting. Dr. Lubin and the interdisciplinary team reviewed the current plan of care in detail. Orders as well as treatment and medications were reviewed. Resident will have a dental exam done by Dr. Moncho DAUGHERTY on 09/06/2018. No new orders were given.
--- NOTE | 2018-07-23 18:38 | NUR ---
Seen by HA Spangler, no new order given.
[2018-07-23 19:42] VITALS: BP 118/75
[2018-07-23] MEDS: JEVITY 1.2 CAL 1,000 ML BOTTLE GT PRN (20:00)
[2018-07-23] MEDS: POLYETHYLENE GLYCOL 3350 17 GM POWD.PACK GT SCH (21:06)
[2018-07-24] MEDS: ALBUTEROL FS 2.5 MG/3 ML VIAL.NEB NEB SCH ×4 (02:00→20:06)
[2018-07-24] MEDS: OMEPRAZOLE 20 MG CAPSULE.DR GT SCH (05:36)
[2018-07-24] MEDS: CHLORHEXIDINE GLUCONATE 15 ML UDC MM SCH ×2 (05:36→18:55)
[2018-07-24] MEDS: MYCOPHENOLATE MOFETIL SUSP 500 MG/2.5 ML UDC GT SCH ×2 (05:36→17:21)
[2018-07-24] MEDS: POLYVINYL ALCOHOL 15 ML BOTTLE EACHEYE SCH ×4 (05:36→23:12)
[2018-07-24] MEDS: LEVETIRACETAM SOL (5 ML) 100 MG/ML UDC GT SCH ×2 (09:09→20:24)
[2018-07-24] MEDS: BACLOFEN (10 MG) 10 MG TABLET GT SCH ×3 (09:09→16:51)
[2018-07-24] MEDS: FOLIC ACID 1 MG TABLET GT SCH ×2 (09:09→16:51)
[2018-07-24] MEDS: SERTRALINE HCL 25 MG TABLET GT SCH (09:09)
[2018-07-24] MEDS: SENNOSIDES 8.6 MG TABLET GT SCH ×2 (09:09→20:24)
[2018-07-24] MEDS: predniSONE 10 MG TABLET GT SCH (09:09)
[2018-07-24] MEDS: HEPARIN SODIUM, PORCINE 5000 UNITS/1 ML VIAL SQ SCH ×2 (09:10→20:25)
[2018-07-24] MEDS: HYDROGEN PEROXIDE 480 ML BOTTLE TP SCH ×2 (09:11→20:25)
[2018-07-24] MEDS: Z GUARD REMEDY 4 OZ OINT TP SCH ×4 (09:12→20:25)
[2018-07-24] MEDS: JEVITY 1.2 CAL 1,000 ML BOTTLE GT PRN (15:05)
[2018-07-24 19:45] VITALS: BP 117/76
[2018-07-24] MEDS: POLYETHYLENE GLYCOL 3350 17 GM POWD.PACK GT SCH (21:56)
[2018-07-25] MEDS: ALBUTEROL FS 2.5 MG/3 ML VIAL.NEB NEB SCH ×4 (01:08→20:07)
[2018-07-25] MEDS: MYCOPHENOLATE MOFETIL SUSP 500 MG/2.5 ML UDC GT SCH ×2 (05:39→18:42)
[2018-07-25] MEDS: CHLORHEXIDINE GLUCONATE 15 ML UDC MM SCH ×2 (05:39→18:42)
[2018-07-25] MEDS: OMEPRAZOLE 20 MG CAPSULE.DR GT SCH (05:39)
[2018-07-25] MEDS: POLYVINYL ALCOHOL 15 ML BOTTLE EACHEYE SCH ×4 (05:39→23:46)
--- NOTE | 2018-07-25 08:05 | NUR ---
RT PATIENT REC'D TRACHED ON COOL AEROSOL JIMBO WELL. PATIENT SUCTIONED WITH MOD AMT OF PALE SEMITHICK SECRETIONS. PATIENT STABLE AND APPEARS COMFORTABLE. NO SOB NOTED. AMBU BAG AT HOB. Addendum: 07/27/18 at 0711 by TAMIKA APPIAH RT Amended: Links added.
[2018-07-25] MEDS: HEPARIN SODIUM, PORCINE 5000 UNITS/1 ML VIAL SQ SCH ×2 (09:00→21:18)
[2018-07-25] MEDS: SENNOSIDES 8.6 MG TABLET GT SCH ×2 (09:00→21:17)
[2018-07-25] MEDS: BACLOFEN (10 MG) 10 MG TABLET GT SCH ×3 (09:00→17:33)
[2018-07-25] MEDS: LEVETIRACETAM SOL (5 ML) 100 MG/ML UDC GT SCH ×2 (09:00→21:17)
[2018-07-25] MEDS: Z GUARD REMEDY 4 OZ OINT TP SCH ×4 (09:00→21:18)
[2018-07-25] MEDS: predniSONE 10 MG TABLET GT SCH (09:00)
[2018-07-25] MEDS: HYDROGEN PEROXIDE 480 ML BOTTLE TP SCH ×2 (09:00→21:18)
[2018-07-25] MEDS: SERTRALINE HCL 25 MG TABLET GT SCH (09:00)
[2018-07-25] MEDS: FOLIC ACID 1 MG TABLET GT SCH ×2 (09:00→17:33)
[2018-07-25 18:59] VITALS: BP 127/85
--- NOTE | 2018-07-25 20:17 | NUR ---
RT NOTE: RECEIVED TRACH PT ON COOL AEROSOL. AMBU BAG/BACK UP TRACH @ BEDSIDE. Q6 BREATHING TX GIVEN PER MD ORDERS WITH NO ADVERSE REACTION NOTED. SX DONE PRN. TRACH SECURED AND PATENT. NO RESP DISTRESS NOTED AT THIS TIME. WILL CONTINUE TO MONITOR PT. Addendum: 07/26/18 at 0546 by DOV GREENBERG RT Amended: Links added.
[2018-07-25 20:38] VITALS: BP 118/73
[2018-07-25] MEDS: POLYETHYLENE GLYCOL 3350 17 GM POWD.PACK GT SCH (21:19)
[2018-07-26] MEDS: ALBUTEROL FS 2.5 MG/3 ML VIAL.NEB NEB SCH ×4 (01:29→19:34)
[2018-07-26] MEDS: MYCOPHENOLATE MOFETIL SUSP 500 MG/2.5 ML UDC GT SCH ×2 (05:51→18:32)
[2018-07-26] MEDS: OMEPRAZOLE 20 MG CAPSULE.DR GT SCH (05:51)
[2018-07-26] MEDS: POLYVINYL ALCOHOL 15 ML BOTTLE EACHEYE SCH ×4 (05:51→23:54)
[2018-07-26] MEDS: CHLORHEXIDINE GLUCONATE 15 ML UDC MM SCH ×2 (05:51→18:32)
[2018-07-26 07:48] VITALS: BP 103/73
--- NOTE | 2018-07-26 08:04 | NUR ---
Social Service Section of [facility] (3rd quarter) completed Resident is not communicative but awake. Current diet order is PEG Jevity 1.2 at 80ml/hr x 20 hr. 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 Her father visits her frequently and he is calling to check in. Resident's is not involved and does not visit. Dr. Ivan last saw the resident on 10/26/2017 for a dental cleaning. She will be seen by him on September 06, 2018 for her annual dental exam. She was seen by the greaser operator Dr. Millan on 02/22/2018 for an eye exam and by the vibrating screen operator Dr. Wolfe on 07/23/2018 for nail care.
[2018-07-26] MEDS: LEVETIRACETAM SOL (5 ML) 100 MG/ML UDC GT SCH ×2 (08:34→21:06)
[2018-07-26] MEDS: BACLOFEN (10 MG) 10 MG TABLET GT SCH ×3 (08:34→16:40)
[2018-07-26] MEDS: FOLIC ACID 1 MG TABLET GT SCH ×2 (08:34→16:40)
[2018-07-26] MEDS: SERTRALINE HCL 25 MG TABLET GT SCH (08:35)
[2018-07-26] MEDS: SENNOSIDES 8.6 MG TABLET GT SCH ×2 (08:35→21:06)
[2018-07-26] MEDS: predniSONE 10 MG TABLET GT SCH (08:35)
[2018-07-26] MEDS: HEPARIN SODIUM, PORCINE 5000 UNITS/1 ML VIAL SQ SCH ×2 (08:37→21:06)
[2018-07-26] MEDS: Z GUARD REMEDY 4 OZ OINT TP SCH ×4 (08:37→21:06)
[2018-07-26] MEDS: HYDROGEN PEROXIDE 480 ML BOTTLE TP SCH ×2 (08:37→21:06)
[2018-07-26] MEDS: JEVITY 1.2 CAL 1,000 ML BOTTLE GT PRN (12:51)
[2018-07-26 20:33] VITALS: BP 121/74
[2018-07-26] MEDS: POLYETHYLENE GLYCOL 3350 17 GM POWD.PACK GT SCH (21:06)
[2018-07-27] MEDS: ALBUTEROL FS 2.5 MG/3 ML VIAL.NEB NEB SCH ×4 (01:18→19:43)
[2018-07-27] MEDS: POLYVINYL ALCOHOL 15 ML BOTTLE EACHEYE SCH ×3 (06:02→17:00)
[2018-07-27] MEDS: OMEPRAZOLE 20 MG CAPSULE.DR GT SCH (06:02)
[2018-07-27] MEDS: MYCOPHENOLATE MOFETIL SUSP 500 MG/2.5 ML UDC GT SCH ×2 (06:02→17:00)
[2018-07-27] MEDS: CHLORHEXIDINE GLUCONATE 15 ML UDC MM SCH ×2 (06:02→17:00)
[2018-07-27] MEDS: SERTRALINE HCL 25 MG TABLET GT SCH (09:04)
[2018-07-27] MEDS: FOLIC ACID 1 MG TABLET GT SCH ×2 (09:04→16:48)
[2018-07-27] MEDS: SENNOSIDES 8.6 MG TABLET GT SCH ×2 (09:04→20:37)
[2018-07-27] MEDS: LEVETIRACETAM SOL (5 ML) 100 MG/ML UDC GT SCH ×2 (09:04→20:37)
[2018-07-27] MEDS: BACLOFEN (10 MG) 10 MG TABLET GT SCH ×3 (09:04→16:48)
[2018-07-27] MEDS: predniSONE 10 MG TABLET GT SCH (09:04)
[2018-07-27] MEDS: Z GUARD REMEDY 4 OZ OINT TP SCH ×4 (09:08→20:37)
[2018-07-27] MEDS: HYDROGEN PEROXIDE 480 ML BOTTLE TP SCH ×2 (09:08→20:37)
[2018-07-27] MEDS: HEPARIN SODIUM, PORCINE 5000 UNITS/1 ML VIAL SQ SCH (09:08)
[2018-07-27 10:47] VITALS: BP 109/64
[2018-07-27] MEDS: JEVITY 1.2 CAL 1,000 ML BOTTLE GT PRN (15:06)
--- NOTE | 2018-07-27 15:54 | NUR ---
Pt noted with tracheal bleeding. Notified Dr Lubni. He ordered to hold Heparin for 72 hours. Addendum: 07/27/18 at 1558 by JAIDEN GARCIA RN Informed pt's father.
--- NOTE | 2018-07-27 20:00 | NUR ---
RN NOTES PT. NOTED WITH MINIMAL TRACHEAL BLEEDING WHEN SUCTIONED. WILL CONTINUE TO MONITOR.
[2018-07-27 20:14] VITALS: BP 107/52
[2018-07-27] MEDS: POLYETHYLENE GLYCOL 3350 17 GM POWD.PACK GT SCH (21:06)
[2018-07-28] MEDS: POLYVINYL ALCOHOL 15 ML BOTTLE EACHEYE SCH ×4 (00:22→17:19)
[2018-07-28] MEDS: ALBUTEROL FS 2.5 MG/3 ML VIAL.NEB NEB SCH ×4 (01:24→20:10)
[2018-07-28] MEDS: JEVITY 1.2 CAL 1,000 ML BOTTLE GT PRN ×2 (05:32→17:20)
[2018-07-28] MEDS: OMEPRAZOLE 20 MG CAPSULE.DR GT SCH (05:36)
[2018-07-28] MEDS: MYCOPHENOLATE MOFETIL SUSP 500 MG/2.5 ML UDC GT SCH ×2 (05:36→17:19)
[2018-07-28] MEDS: CHLORHEXIDINE GLUCONATE 15 ML UDC MM SCH ×2 (05:36→17:19)
--- NOTE | 2018-07-28 06:10 | NUR ---
RN NOTES SCANT BLEEDING NOTED WHEN SUCTIONING PATIENT. WILL ENDORSE TO DAYSHIFT NURSE FOR CONTINUITY OF CARE.
[2018-07-28 07:49] VITALS: BP 129/67
--- NOTE | 2018-07-28 08:18 | NUR ---
RT PT RECEIVED WITH A PORTEX 9 TRACH ON COOL AEROSOL TOLERATING WELL. PT IS AWAKE AND TRACKS WITH EYES. HHN TX GIVEN WITH NO ADVERSE REACTIONS. NO RESPIRATORY DISTRESS NOTED AT THIS TIME, WILL CONTINUE TO MONITOR. Addendum: 07/28/18 at 0911 by RENATO OSORIO RT Amended: Links added.
[2018-07-28] MEDS: Z GUARD REMEDY 4 OZ OINT TP SCH ×4 (09:41→21:43)
[2018-07-28] MEDS: SENNOSIDES 8.6 MG TABLET GT SCH ×2 (09:41→21:43)
[2018-07-28] MEDS: LEVETIRACETAM SOL (5 ML) 100 MG/ML UDC GT SCH ×2 (09:41→21:43)
[2018-07-28] MEDS: SERTRALINE HCL 25 MG TABLET GT SCH (09:41)
[2018-07-28] MEDS: BACLOFEN (10 MG) 10 MG TABLET GT SCH ×3 (09:41→17:19)
[2018-07-28] MEDS: HYDROGEN PEROXIDE 480 ML BOTTLE TP SCH ×2 (09:41→21:43)
[2018-07-28] MEDS: FOLIC ACID 1 MG TABLET GT SCH ×2 (09:41→17:19)
[2018-07-28] MEDS: predniSONE 10 MG TABLET GT SCH (09:41)
[2018-07-28 19:54] VITALS: BP 121/80
[2018-07-28] MEDS: POLYETHYLENE GLYCOL 3350 17 GM POWD.PACK GT SCH (21:43)
[2018-07-29] MEDS: POLYVINYL ALCOHOL 15 ML BOTTLE EACHEYE SCH ×5 (00:38→23:48)
[2018-07-29] MEDS: ALBUTEROL FS 2.5 MG/3 ML VIAL.NEB NEB SCH ×4 (02:06→20:03)
[2018-07-29] MEDS: CHLORHEXIDINE GLUCONATE 15 ML UDC MM SCH ×2 (05:40→17:06)
[2018-07-29] MEDS: MYCOPHENOLATE MOFETIL SUSP 500 MG/2.5 ML UDC GT SCH ×2 (05:40→17:06)
[2018-07-29] MEDS: OMEPRAZOLE 20 MG CAPSULE.DR GT SCH (05:40)
[2018-07-29] MEDS: JEVITY 1.2 CAL 1,000 ML BOTTLE GT PRN (06:52)
[2018-07-29 07:55] VITALS: BP 110/69
[2018-07-29] MEDS: SERTRALINE HCL 25 MG TABLET GT SCH (08:54)
[2018-07-29] MEDS: predniSONE 10 MG TABLET GT SCH (08:54)
[2018-07-29] MEDS: Z GUARD REMEDY 4 OZ OINT TP SCH ×4 (08:54→21:24)
[2018-07-29] MEDS: LEVETIRACETAM SOL (5 ML) 100 MG/ML UDC GT SCH ×2 (08:54→21:24)
[2018-07-29] MEDS: FOLIC ACID 1 MG TABLET GT SCH ×2 (08:54→16:49)
[2018-07-29] MEDS: SENNOSIDES 8.6 MG TABLET GT SCH ×2 (08:54→21:24)
[2018-07-29] MEDS: HYDROGEN PEROXIDE 480 ML BOTTLE TP SCH ×2 (08:54→21:24)
[2018-07-29] MEDS: BACLOFEN (10 MG) 10 MG TABLET GT SCH ×3 (08:54→16:49)
[2018-07-29 20:17] VITALS: BP 135/70
[2018-07-29] MEDS: POLYETHYLENE GLYCOL 3350 17 GM POWD.PACK GT SCH (21:24)
--- NOTE | 2018-07-29 21:27 | NUR ---
SPOKE TO ILSA FROM [facility] TOLD HER TO SEND MEDICATIONS THAT ARE COVERED BY INSURANCE.
[2018-07-30] MEDS: ALBUTEROL FS 2.5 MG/3 ML VIAL.NEB NEB SCH ×4 (01:52→19:05)
[2018-07-30] MEDS: POLYVINYL ALCOHOL 15 ML BOTTLE EACHEYE SCH ×4 (05:56→23:48)
[2018-07-30] MEDS: OMEPRAZOLE 20 MG CAPSULE.DR GT SCH (05:56)
[2018-07-30] MEDS: MYCOPHENOLATE MOFETIL SUSP 500 MG/2.5 ML UDC GT SCH ×2 (05:56→17:28)
[2018-07-30] MEDS: CHLORHEXIDINE GLUCONATE 15 ML UDC MM SCH ×2 (05:57→17:28)
[2018-07-30 07:38] VITALS: BP 115/60
[2018-07-30] MEDS: BACLOFEN (10 MG) 10 MG TABLET GT SCH ×3 (08:48→17:28)
[2018-07-30] MEDS: Z GUARD REMEDY 4 OZ OINT TP SCH ×4 (08:48→21:04)
[2018-07-30] MEDS: predniSONE 10 MG TABLET GT SCH (08:48)
[2018-07-30] MEDS: FOLIC ACID 1 MG TABLET GT SCH ×2 (08:48→17:28)
[2018-07-30] MEDS: HYDROGEN PEROXIDE 480 ML BOTTLE TP SCH ×2 (08:48→21:04)
[2018-07-30] MEDS: SERTRALINE HCL 25 MG TABLET GT SCH (08:48)
[2018-07-30] MEDS: LEVETIRACETAM SOL (5 ML) 100 MG/ML UDC GT SCH ×2 (08:48→21:04)
[2018-07-30] MEDS: SENNOSIDES 8.6 MG TABLET GT SCH ×2 (08:48→21:04)
--- NOTE | 2018-07-30 08:52 | NUR ---
Seen and examined by Dr. Jeff LUCERO given, however he asked to check when was the last time Rituxan was administered. Spoke with Lilli from [facility] pharmacy and she will review old record.
[2018-07-30] MEDS: JEVITY 1.2 CAL 1,000 ML BOTTLE GT PRN (12:27)
--- NOTE | 2018-07-30 17:59 | NUR ---
Resident's daughter Lisa came to visit her mother. She is requesting to be called since patient's father (Dr. Swift) has been sick lately, added phone number in patient's face sheet.
--- NOTE | 2018-07-30 20:16 | NUR ---
Patient received on 28% aerosol t-tube, tolerating with no sign of distress/SOB. PRN suction only. Given in-line treatments with no adverse reactions. Ambu bag at bedside. Addendum: 07/30/18 at 2016 by JANAY CANCINO RT Amended: Links added.
[2018-07-30] MEDS: POLYETHYLENE GLYCOL 3350 17 GM POWD.PACK GT SCH (21:04)
[2018-07-31] MEDS: ALBUTEROL FS 2.5 MG/3 ML VIAL.NEB NEB SCH ×4 (01:31→19:49)
[2018-07-31] MEDS: CHLORHEXIDINE GLUCONATE 15 ML UDC MM SCH ×2 (05:50→17:07)
[2018-07-31] MEDS: POLYVINYL ALCOHOL 15 ML BOTTLE EACHEYE SCH ×4 (05:50→23:03)
[2018-07-31] MEDS: OMEPRAZOLE 20 MG CAPSULE.DR GT SCH (05:50)
[2018-07-31] MEDS: MYCOPHENOLATE MOFETIL SUSP 500 MG/2.5 ML UDC GT SCH ×2 (05:50→17:07)
[2018-07-31 07:57] VITALS: BP 123/74
[2018-07-31] MEDS: BACLOFEN (10 MG) 10 MG TABLET GT SCH ×3 (08:59→17:07)
[2018-07-31] MEDS: SERTRALINE HCL 25 MG TABLET GT SCH (08:59)
[2018-07-31] MEDS: SENNOSIDES 8.6 MG TABLET GT SCH ×2 (08:59→20:41)
[2018-07-31] MEDS: LEVETIRACETAM SOL (5 ML) 100 MG/ML UDC GT SCH ×2 (08:59→20:41)
[2018-07-31] MEDS: FOLIC ACID 1 MG TABLET GT SCH ×2 (08:59→17:07)
[2018-07-31] MEDS: predniSONE 10 MG TABLET GT SCH (08:59)
[2018-07-31] MEDS: HEPARIN SODIUM, PORCINE 5000 UNITS/1 ML VIAL SQ SCH ×2 (09:00→20:42)
[2018-07-31] MEDS: Z GUARD REMEDY 4 OZ OINT TP SCH ×4 (09:00→20:42)
[2018-07-31] MEDS: HYDROGEN PEROXIDE 480 ML BOTTLE TP SCH ×2 (09:00→20:42)
--- NOTE | 2018-07-31 14:04 | NUR ---
Per hospital record, patient received Rituxan on 02/26/18 and 03/12/18. Dr. Aguilar notified and acknowledged info.
[2018-07-31] MEDS: JEVITY 1.2 CAL 1,000 ML BOTTLE GT PRN (15:48)
[2018-07-31 19:55] VITALS: BP 118/84
--- NOTE | 2018-07-31 20:09 | NUR ---
RT Pt received trach'd and on CA w charted settings. Saima is secure and patent w hardeep @ [facility]. n tx given w no adverse reactions. No respiratory distress noted @ this time. Will continue to monitor. Addendum: 07/31/18 at 2052 by RICARDO MENDENHALL RT Amended: Links added.
[2018-07-31] MEDS: POLYETHYLENE GLYCOL 3350 17 GM POWD.PACK GT SCH (21:01)
[2018-08-01] MEDS: ALBUTEROL FS 2.5 MG/3 ML VIAL.NEB NEB SCH ×4 (01:50→20:08)
[2018-08-01] MEDS: POLYVINYL ALCOHOL 15 ML BOTTLE EACHEYE SCH ×4 (05:01→23:52)
[2018-08-01] MEDS: MYCOPHENOLATE MOFETIL SUSP 500 MG/2.5 ML UDC GT SCH ×2 (05:01→17:03)
[2018-08-01] MEDS: CHLORHEXIDINE GLUCONATE 15 ML UDC MM SCH ×2 (05:02→17:03)
[2018-08-01] MEDS: OMEPRAZOLE 20 MG CAPSULE.DR GT SCH (05:02)
[2018-08-01] MEDS: JEVITY 1.2 CAL 1,000 ML BOTTLE GT PRN ×2 (05:10→21:41)
[2018-08-01 07:46] VITALS: BP 139/73
[2018-08-01] MEDS: SERTRALINE HCL 25 MG TABLET GT SCH (09:00)
[2018-08-01] MEDS: HYDROGEN PEROXIDE 480 ML BOTTLE TP SCH ×2 (09:00→21:40)
[2018-08-01] MEDS: HEPARIN SODIUM, PORCINE 5000 UNITS/1 ML VIAL SQ SCH ×2 (09:00→21:40)
[2018-08-01] MEDS: SENNOSIDES 8.6 MG TABLET GT SCH ×2 (09:00→21:40)
[2018-08-01] MEDS: Z GUARD REMEDY 4 OZ OINT TP SCH ×4 (09:00→21:40)
[2018-08-01] MEDS: FOLIC ACID 1 MG TABLET GT SCH ×2 (09:00→17:02)
[2018-08-01] MEDS: LEVETIRACETAM SOL (5 ML) 100 MG/ML UDC GT SCH ×2 (09:00→21:40)
[2018-08-01] MEDS: predniSONE 10 MG TABLET GT SCH (09:00)
[2018-08-01] MEDS: BACLOFEN (10 MG) 10 MG TABLET GT SCH ×3 (09:00→17:02)
[2018-08-01 19:52] VITALS: BP 126/87
[2018-08-01] MEDS: POLYETHYLENE GLYCOL 3350 17 GM POWD.PACK GT SCH (21:40)
[2018-08-02] MEDS: ALBUTEROL FS 2.5 MG/3 ML VIAL.NEB NEB SCH ×4 (01:10→19:23)
[2018-08-02] MEDS: CHLORHEXIDINE GLUCONATE 15 ML UDC MM SCH ×2 (05:13→17:52)
[2018-08-02] MEDS: OMEPRAZOLE 20 MG CAPSULE.DR GT SCH (05:13)
[2018-08-02] MEDS: MYCOPHENOLATE MOFETIL SUSP 500 MG/2.5 ML UDC GT SCH ×2 (05:13→17:52)
[2018-08-02] MEDS: POLYVINYL ALCOHOL 15 ML BOTTLE EACHEYE SCH ×4 (05:13→23:47)
[2018-08-02 08:10] VITALS: BP 113/72
[2018-08-02] MEDS: LEVETIRACETAM SOL (5 ML) 100 MG/ML UDC GT SCH ×2 (08:41→21:08)
[2018-08-02] MEDS: BACLOFEN (10 MG) 10 MG TABLET GT SCH ×3 (08:41→17:52)
[2018-08-02] MEDS: SERTRALINE HCL 25 MG TABLET GT SCH (08:41)
[2018-08-02] MEDS: SENNOSIDES 8.6 MG TABLET GT SCH ×2 (08:41→21:09)
[2018-08-02] MEDS: predniSONE 10 MG TABLET GT SCH (08:41)
[2018-08-02] MEDS: FOLIC ACID 1 MG TABLET GT SCH ×2 (08:41→17:51)
[2018-08-02] MEDS: HEPARIN SODIUM, PORCINE 5000 UNITS/1 ML VIAL SQ SCH ×2 (08:44→21:09)
[2018-08-02] MEDS: Z GUARD REMEDY 4 OZ OINT TP SCH ×4 (08:45→21:10)
[2018-08-02] MEDS: HYDROGEN PEROXIDE 480 ML BOTTLE TP SCH ×2 (08:45→21:10)
[2018-08-02 19:57] VITALS: BP 136/89
[2018-08-02 21:08] VITALS: BP 136/89
[2018-08-02] MEDS: POLYETHYLENE GLYCOL 3350 17 GM POWD.PACK GT SCH (21:10)
[2018-08-03] MEDS: ALBUTEROL FS 2.5 MG/3 ML VIAL.NEB NEB SCH ×4 (01:44→19:17)
[2018-08-03] MEDS: OMEPRAZOLE 20 MG CAPSULE.DR GT SCH (05:54)
[2018-08-03] MEDS: MYCOPHENOLATE MOFETIL SUSP 500 MG/2.5 ML UDC GT SCH ×2 (05:54→17:16)
[2018-08-03] MEDS: POLYVINYL ALCOHOL 15 ML BOTTLE EACHEYE SCH ×4 (05:54→23:11)
[2018-08-03] MEDS: CHLORHEXIDINE GLUCONATE 15 ML UDC MM SCH ×2 (05:55→17:16)
[2018-08-03 07:35] VITALS: BP 110/76
[2018-08-03] MEDS: SENNOSIDES 8.6 MG TABLET GT SCH ×2 (09:01→21:11)
[2018-08-03] MEDS: predniSONE 10 MG TABLET GT SCH (09:01)
[2018-08-03] MEDS: BACLOFEN (10 MG) 10 MG TABLET GT SCH ×3 (09:01→17:15)
[2018-08-03] MEDS: LEVETIRACETAM SOL (5 ML) 100 MG/ML UDC GT SCH ×2 (09:01→21:11)
[2018-08-03] MEDS: FOLIC ACID 1 MG TABLET GT SCH ×2 (09:01→17:15)
[2018-08-03] MEDS: SERTRALINE HCL 25 MG TABLET GT SCH (09:01)
[2018-08-03] MEDS: HEPARIN SODIUM, PORCINE 5000 UNITS/1 ML VIAL SQ SCH ×2 (09:05→21:11)
[2018-08-03] MEDS: Z GUARD REMEDY 4 OZ OINT TP SCH ×4 (09:06→21:12)
[2018-08-03] MEDS: HYDROGEN PEROXIDE 480 ML BOTTLE TP SCH ×2 (09:06→21:12)
[2018-08-03] MEDS: JEVITY 1.2 CAL 1,000 ML BOTTLE GT PRN (18:53)
[2018-08-03 20:34] VITALS: BP 128/63
[2018-08-03] MEDS: POLYETHYLENE GLYCOL 3350 17 GM POWD.PACK GT SCH (21:12)
[2018-08-04] MEDS: ALBUTEROL FS 2.5 MG/3 ML VIAL.NEB NEB SCH ×4 (01:31→19:57)
[2018-08-04] MEDS: POLYVINYL ALCOHOL 15 ML BOTTLE EACHEYE SCH ×4 (05:39→23:31)
[2018-08-04] MEDS: OMEPRAZOLE 20 MG CAPSULE.DR GT SCH (05:39)
[2018-08-04] MEDS: CHLORHEXIDINE GLUCONATE 15 ML UDC MM SCH ×2 (05:39→17:43)
[2018-08-04] MEDS: MYCOPHENOLATE MOFETIL SUSP 500 MG/2.5 ML UDC GT SCH ×2 (05:39→17:43)
[2018-08-04 06:40] LABS: BASOPHILS # (AUTO) 0.1 /CMM (0.0-0.2); BASOPHILS % (AUTO) 0.6 % (0.0-2.0); EOSINOPHILS % (AUTO) 1.2 % (0.0-6.0); HEMATOCRIT 35 % (33-45); HEMOGLOBIN 11.2 g/dL (11.5-14.8); LYMPHOCYTES # (AUTO) 2.1 /CMM (0.8-4.8); LYMPHOCYTES % (AUTO) 24.2 % (20.0-44.0); MEAN CORPUSCULAR HGB CONC 32 g/dl (31.0-36.0); MEAN CORPUSCULAR VOLUME 86 fL (82-100); MONOCYTES # (AUTO) 0.9 /CMM (0.1-1.30); MONOCYTES % (AUTO) 10.6 % (2.0-12.0); NEUTROPHILS # (AUTO) 5.5 /CMM (1.8-8.9); NEUTROPHILS % (AUTO) 63.4 % (43.0-81.0); PLATELET COUNT (AUTO) 419 /CMM (150-450); RED BLOOD CELL COUNT(AUTO) 4.03 MIL/uL (4.0-5.2); WHITE BLOOD COUNT (AUTO) 8.8 K/uL (4.3-11.0)
[2018-08-04 07:55] VITALS: BP 130/68
[2018-08-04] MEDS: LEVETIRACETAM SOL (5 ML) 100 MG/ML UDC GT SCH ×2 (08:51→21:02)
[2018-08-04] MEDS: BACLOFEN (10 MG) 10 MG TABLET GT SCH ×3 (08:51→17:43)
[2018-08-04] MEDS: SENNOSIDES 8.6 MG TABLET GT SCH ×2 (08:51→21:02)
[2018-08-04] MEDS: SERTRALINE HCL 25 MG TABLET GT SCH (08:51)
[2018-08-04] MEDS: FOLIC ACID 1 MG TABLET GT SCH ×2 (08:51→17:43)
[2018-08-04] MEDS: predniSONE 10 MG TABLET GT SCH (08:51)
[2018-08-04] MEDS: HEPARIN SODIUM, PORCINE 5000 UNITS/1 ML VIAL SQ SCH ×2 (08:58→21:02)
[2018-08-04] MEDS: HYDROGEN PEROXIDE 480 ML BOTTLE TP SCH ×2 (09:00→21:02)
[2018-08-04] MEDS: Z GUARD REMEDY 4 OZ OINT TP SCH ×4 (09:00→21:03)
[2018-08-04] MEDS: JEVITY 1.2 CAL 1,000 ML BOTTLE GT PRN (18:15)
[2018-08-04 19:55] VITALS: BP 123/62
[2018-08-04] MEDS: POLYETHYLENE GLYCOL 3350 17 GM POWD.PACK GT SCH (21:03)
[2018-08-05] MEDS: ALBUTEROL FS 2.5 MG/3 ML VIAL.NEB NEB SCH ×4 (01:17→20:10)
[2018-08-05] MEDS: POLYVINYL ALCOHOL 15 ML BOTTLE EACHEYE SCH ×3 (05:05→17:31)
[2018-08-05] MEDS: MYCOPHENOLATE MOFETIL SUSP 500 MG/2.5 ML UDC GT SCH ×2 (05:05→17:31)
[2018-08-05] MEDS: OMEPRAZOLE 20 MG CAPSULE.DR GT SCH (05:05)
[2018-08-05] MEDS: CHLORHEXIDINE GLUCONATE 15 ML UDC MM SCH ×2 (05:05→17:31)
[2018-08-05] MEDS: JEVITY 1.2 CAL 1,000 ML BOTTLE GT PRN (06:27)
[2018-08-05] MEDS: BACLOFEN (10 MG) 10 MG TABLET GT SCH ×3 (09:06→17:31)
[2018-08-05] MEDS: predniSONE 10 MG TABLET GT SCH (09:06)
[2018-08-05] MEDS: SERTRALINE HCL 25 MG TABLET GT SCH (09:06)
[2018-08-05] MEDS: FOLIC ACID 1 MG TABLET GT SCH ×2 (09:06→17:31)
[2018-08-05] MEDS: LEVETIRACETAM SOL (5 ML) 100 MG/ML UDC GT SCH ×2 (09:06→20:54)
[2018-08-05] MEDS: SENNOSIDES 8.6 MG TABLET GT SCH ×2 (09:06→20:54)
[2018-08-05] MEDS: Z GUARD REMEDY 4 OZ OINT TP SCH ×4 (09:07→20:55)
[2018-08-05] MEDS: HEPARIN SODIUM, PORCINE 5000 UNITS/1 ML VIAL SQ SCH ×2 (09:07→20:55)
[2018-08-05] MEDS: HYDROGEN PEROXIDE 480 ML BOTTLE TP SCH ×2 (09:07→20:55)
[2018-08-05 11:58] VITALS: BP 131/50
[2018-08-05 19:47] VITALS: BP 110/65
--- NOTE | 2018-08-05 20:20 | NUR ---
RT NOTE: RECEIVED TRACH PT ON COOL AEROSOL. AMBU BAG/BACK UP TRACH @ BEDSIDE. Q6 BREATHING TX GIVEN PER MD ORDERS WITH NO ADVERSE REACTION NOTED. SX DONE PRN. TRACH PATENT AND SECURED. NO RESP DISTRESS NOTED AT THIS TIME. WILL CONTINUE TO MONITOR PT. Addendum: 08/06/18 at 0304 by DOV GREENBERG RT Amended: Links added.
[2018-08-05] MEDS: POLYETHYLENE GLYCOL 3350 17 GM POWD.PACK GT SCH (21:11)
[2018-08-06] MEDS: POLYVINYL ALCOHOL 15 ML BOTTLE EACHEYE SCH ×5 (00:05→23:39)
[2018-08-06] MEDS: JEVITY 1.2 CAL 1,000 ML BOTTLE GT PRN ×2 (01:18→16:52)
[2018-08-06] MEDS: ALBUTEROL FS 2.5 MG/3 ML VIAL.NEB NEB SCH ×4 (01:59→19:54)
[2018-08-06] MEDS: MYCOPHENOLATE MOFETIL SUSP 500 MG/2.5 ML UDC GT SCH ×2 (05:43→18:11)
[2018-08-06] MEDS: OMEPRAZOLE 20 MG CAPSULE.DR GT SCH (05:43)
[2018-08-06] MEDS: CHLORHEXIDINE GLUCONATE 15 ML UDC MM SCH ×2 (05:43→18:11)
[2018-08-06 07:43] VITALS: BP 119/82
[2018-08-06] MEDS: FOLIC ACID 1 MG TABLET GT SCH ×2 (08:58→17:11)
[2018-08-06] MEDS: BACLOFEN (10 MG) 10 MG TABLET GT SCH ×3 (08:58→17:11)
[2018-08-06] MEDS: LEVETIRACETAM SOL (5 ML) 100 MG/ML UDC GT SCH ×2 (08:58→20:34)
[2018-08-06] MEDS: predniSONE 10 MG TABLET GT SCH (08:59)
[2018-08-06] MEDS: SERTRALINE HCL 25 MG TABLET GT SCH (08:59)
[2018-08-06] MEDS: SENNOSIDES 8.6 MG TABLET GT SCH ×2 (08:59→20:35)
[2018-08-06] MEDS: Z GUARD REMEDY 4 OZ OINT TP SCH ×4 (09:00→20:35)
[2018-08-06] MEDS: HEPARIN SODIUM, PORCINE 5000 UNITS/1 ML VIAL SQ SCH ×2 (09:00→20:35)
[2018-08-06] MEDS: HYDROGEN PEROXIDE 480 ML BOTTLE TP SCH ×2 (09:00→20:35)
--- NOTE | 2018-08-06 14:59 | NUR ---
MONTHLY TRACH CHANGE PERFORMED W/ PORTEX 9 UNCUFFED. FRUIT HARVEST WORKER USED, BREATH SOUNDS EQUAL, TRACH TUBE/AIRWAY PATENT. NO RESP DISTRESS NOTED, MINIMAL BLEEDING NOTED, TRACH TUBE SECURED W/ TRACH TIE AND GAUZE Addendum: 08/06/18 at 1500 by JUSTYN MONTANEZ RT Amended: Links added.
[2018-08-06 19:50] VITALS: BP 125/76
[2018-08-06] MEDS: POLYETHYLENE GLYCOL 3350 17 GM POWD.PACK GT SCH (21:04)
--- NOTE | 2018-08-06 21:10 | NUR ---
RT NOTE: PATIENT WAS RECEIVED ON COOL AEROSOL. AMBU BAG/BACK UP TRACH @ BEDSIDE. Q6 BREATHING TX GIVEN PER MD ORDERS WITH NO ADVERSE REACTION NOTED. SUCTION DONE PRN. TRACH PATENT AND SECURED. NO RESPIRATORY DISTRESS NOTED AT THIS TIME. WILL CONTINUE TO MONITOR PATIENT Addendum: 08/06/18 at 2110 by ELIAZAR GOMES RT Amended: Links added.
[2018-08-07] MEDS: ALBUTEROL FS 2.5 MG/3 ML VIAL.NEB NEB SCH ×4 (01:54→19:35)
[2018-08-07] MEDS: MYCOPHENOLATE MOFETIL SUSP 500 MG/2.5 ML UDC GT SCH ×2 (05:01→17:10)
[2018-08-07] MEDS: CHLORHEXIDINE GLUCONATE 15 ML UDC MM SCH ×2 (05:01→17:11)
[2018-08-07] MEDS: POLYVINYL ALCOHOL 15 ML BOTTLE EACHEYE SCH ×4 (05:01→23:19)
[2018-08-07] MEDS: OMEPRAZOLE 20 MG CAPSULE.DR GT SCH (05:01)
[2018-08-07] MEDS: JEVITY 1.2 CAL 1,000 ML BOTTLE GT PRN ×2 (05:02→18:36)
[2018-08-07 08:02] VITALS: BP 110/59
[2018-08-07] MEDS: Z GUARD REMEDY 4 OZ OINT TP SCH ×4 (09:00→20:24)
[2018-08-07] MEDS: HYDROGEN PEROXIDE 480 ML BOTTLE TP SCH ×2 (09:00→20:24)
[2018-08-07] MEDS: FOLIC ACID 1 MG TABLET GT SCH ×2 (09:09→17:10)
[2018-08-07] MEDS: SERTRALINE HCL 25 MG TABLET GT SCH (09:09)
[2018-08-07] MEDS: LEVETIRACETAM SOL (5 ML) 100 MG/ML UDC GT SCH ×2 (09:09→20:23)
[2018-08-07] MEDS: SENNOSIDES 8.6 MG TABLET GT SCH ×2 (09:09→20:23)
[2018-08-07] MEDS: BACLOFEN (10 MG) 10 MG TABLET GT SCH ×3 (09:09→17:10)
[2018-08-07] MEDS: predniSONE 10 MG TABLET GT SCH (09:09)
[2018-08-07] MEDS: HEPARIN SODIUM, PORCINE 5000 UNITS/1 ML VIAL SQ SCH ×2 (09:15→20:24)
[2018-08-07 20:19] VITALS: BP 116/74
[2018-08-07] MEDS: POLYETHYLENE GLYCOL 3350 17 GM POWD.PACK GT SCH (21:26)
[2018-08-08] MEDS: ALBUTEROL FS 2.5 MG/3 ML VIAL.NEB NEB SCH ×4 (01:46→19:53)
[2018-08-08] MEDS: POLYVINYL ALCOHOL 15 ML BOTTLE EACHEYE SCH ×4 (05:32→23:10)
[2018-08-08] MEDS: MYCOPHENOLATE MOFETIL SUSP 500 MG/2.5 ML UDC GT SCH ×2 (05:32→17:34)
[2018-08-08] MEDS: CHLORHEXIDINE GLUCONATE 15 ML UDC MM SCH ×2 (05:32→17:34)
[2018-08-08] MEDS: OMEPRAZOLE 20 MG CAPSULE.DR GT SCH (05:32)
[2018-08-08] MEDS: FOLIC ACID 1 MG TABLET GT SCH ×2 (09:00→16:45)
[2018-08-08] MEDS: SERTRALINE HCL 25 MG TABLET GT SCH (09:00)
[2018-08-08] MEDS: HYDROGEN PEROXIDE 480 ML BOTTLE TP SCH ×2 (09:00→20:07)
[2018-08-08] MEDS: LEVETIRACETAM SOL (5 ML) 100 MG/ML UDC GT SCH ×2 (09:00→20:07)
[2018-08-08] MEDS: HEPARIN SODIUM, PORCINE 5000 UNITS/1 ML VIAL SQ SCH ×2 (09:00→20:08)
[2018-08-08] MEDS: SENNOSIDES 8.6 MG TABLET GT SCH ×2 (09:00→20:07)
[2018-08-08] MEDS: BACLOFEN (10 MG) 10 MG TABLET GT SCH ×3 (09:00→16:45)
[2018-08-08] MEDS: predniSONE 10 MG TABLET GT SCH (09:00)
[2018-08-08] MEDS: Z GUARD REMEDY 4 OZ OINT TP SCH ×4 (09:00→20:07)
[2018-08-08] MEDS: JEVITY 1.2 CAL 1,000 ML BOTTLE GT PRN (11:50)
[2018-08-08 12:35] VITALS: BP 113/69
[2018-08-08 20:32] VITALS: BP 116/76
[2018-08-08] MEDS: POLYETHYLENE GLYCOL 3350 17 GM POWD.PACK GT SCH (21:20)
[2018-08-09] MEDS: ALBUTEROL FS 2.5 MG/3 ML VIAL.NEB NEB SCH ×4 (02:00→19:30)
[2018-08-09] MEDS: JEVITY 1.2 CAL 1,000 ML BOTTLE GT PRN ×2 (02:24→18:38)
[2018-08-09] MEDS: POLYVINYL ALCOHOL 15 ML BOTTLE EACHEYE SCH ×4 (05:03→23:32)
[2018-08-09] MEDS: OMEPRAZOLE 20 MG CAPSULE.DR GT SCH (05:03)
[2018-08-09] MEDS: CHLORHEXIDINE GLUCONATE 15 ML UDC MM SCH ×2 (05:04→17:59)
[2018-08-09] MEDS: MYCOPHENOLATE MOFETIL SUSP 500 MG/2.5 ML UDC GT SCH (05:52)
[2018-08-09 07:51] VITALS: BP 119/72
[2018-08-09] MEDS: LEVETIRACETAM SOL (5 ML) 100 MG/ML UDC GT SCH ×2 (09:00→20:13)
[2018-08-09] MEDS: HEPARIN SODIUM, PORCINE 5000 UNITS/1 ML VIAL SQ SCH ×2 (09:00→20:15)
[2018-08-09] MEDS: Z GUARD REMEDY 4 OZ OINT TP SCH ×4 (09:00→20:15)
[2018-08-09] MEDS: SENNOSIDES 8.6 MG TABLET GT SCH ×2 (09:00→20:13)
[2018-08-09] MEDS: FOLIC ACID 1 MG TABLET GT SCH ×2 (09:00→17:14)
[2018-08-09] MEDS: predniSONE 10 MG TABLET GT SCH (09:00)
[2018-08-09] MEDS: HYDROGEN PEROXIDE 480 ML BOTTLE TP SCH ×2 (09:00→20:15)
[2018-08-09] MEDS: BACLOFEN (10 MG) 10 MG TABLET GT SCH ×3 (09:00→17:14)
[2018-08-09] MEDS: SERTRALINE HCL 25 MG TABLET GT SCH (09:00)
[2018-08-09 19:57] VITALS: BP 132/74
[2018-08-09] MEDS: POLYETHYLENE GLYCOL 3350 17 GM POWD.PACK GT SCH (21:33)
[2018-08-10] MEDS: ALBUTEROL FS 2.5 MG/3 ML VIAL.NEB NEB SCH ×4 (01:53→19:30)
[2018-08-10] MEDS: OMEPRAZOLE 20 MG CAPSULE.DR GT SCH (05:07)
[2018-08-10] MEDS: CHLORHEXIDINE GLUCONATE 15 ML UDC MM SCH ×2 (05:07→16:59)
[2018-08-10] MEDS: MYCOPHENOLATE MOFETIL SUSP 500 MG/2.5 ML UDC GT SCH ×2 (05:07→16:58)
[2018-08-10] MEDS: POLYVINYL ALCOHOL 15 ML BOTTLE EACHEYE SCH ×3 (05:07→16:58)
[2018-08-10 07:38] VITALS: BP 136/59
[2018-08-10] MEDS: SERTRALINE HCL 25 MG TABLET GT SCH (09:57)
[2018-08-10] MEDS: LEVETIRACETAM SOL (5 ML) 100 MG/ML UDC GT SCH ×2 (09:57→20:26)
[2018-08-10] MEDS: predniSONE 10 MG TABLET GT SCH (09:57)
[2018-08-10] MEDS: BACLOFEN (10 MG) 10 MG TABLET GT SCH ×3 (09:57→16:58)
[2018-08-10] MEDS: FOLIC ACID 1 MG TABLET GT SCH ×2 (09:57→16:58)
[2018-08-10] MEDS: SENNOSIDES 8.6 MG TABLET GT SCH ×2 (09:57→20:30)
[2018-08-10] MEDS: HEPARIN SODIUM, PORCINE 5000 UNITS/1 ML VIAL SQ SCH ×2 (09:59→20:11)
[2018-08-10] MEDS: Z GUARD REMEDY 4 OZ OINT TP SCH ×4 (09:59→20:27)
[2018-08-10] MEDS: HYDROGEN PEROXIDE 480 ML BOTTLE TP SCH ×2 (09:59→20:27)
[2018-08-10] MEDS: JEVITY 1.2 CAL 1,000 ML BOTTLE GT PRN (13:22)
[2018-08-10 20:00] VITALS: BP 119/79
[2018-08-10 20:16] VITALS: BP 119/79
--- NOTE | 2018-08-10 20:28 | NUR ---
SUBACUTE/RN PATIENT WAS REPORTED TO HAVE MORE THAN 3 BM BUT SEMIFORMED TO HOLD ROUTINE BM MANAGEMENT MEDICATION .
[2018-08-10] MEDS: POLYETHYLENE GLYCOL 3350 17 GM POWD.PACK GT SCH (20:30)
[2018-08-11] MEDS: POLYVINYL ALCOHOL 15 ML BOTTLE EACHEYE SCH ×5 (00:43→23:43)
[2018-08-11] MEDS: ALBUTEROL FS 2.5 MG/3 ML VIAL.NEB NEB SCH ×4 (01:47→19:57)
[2018-08-11] MEDS: JEVITY 1.2 CAL 1,000 ML BOTTLE GT PRN ×2 (02:15→18:36)
[2018-08-11] MEDS: CHLORHEXIDINE GLUCONATE 15 ML UDC MM SCH ×2 (06:05→18:20)
[2018-08-11] MEDS: OMEPRAZOLE 20 MG CAPSULE.DR GT SCH (06:05)
[2018-08-11] MEDS: MYCOPHENOLATE MOFETIL SUSP 500 MG/2.5 ML UDC GT SCH ×2 (06:05→18:20)
[2018-08-11 07:44] VITALS: BP 111/63
[2018-08-11] MEDS: SENNOSIDES 8.6 MG TABLET GT SCH ×2 (09:21→20:38)
[2018-08-11] MEDS: predniSONE 10 MG TABLET GT SCH (09:21)
[2018-08-11] MEDS: LEVETIRACETAM SOL (5 ML) 100 MG/ML UDC GT SCH ×2 (09:21→20:38)
[2018-08-11] MEDS: SERTRALINE HCL 25 MG TABLET GT SCH (09:21)
[2018-08-11] MEDS: HEPARIN SODIUM, PORCINE 5000 UNITS/1 ML VIAL SQ SCH ×2 (09:21→20:40)
[2018-08-11] MEDS: BACLOFEN (10 MG) 10 MG TABLET GT SCH ×3 (09:21→17:00)
[2018-08-11] MEDS: HYDROGEN PEROXIDE 480 ML BOTTLE TP SCH ×2 (09:21→20:41)
[2018-08-11] MEDS: FOLIC ACID 1 MG TABLET GT SCH ×2 (09:21→17:00)
[2018-08-11] MEDS: Z GUARD REMEDY 4 OZ OINT TP SCH ×4 (09:22→20:41)
--- NOTE | 2018-08-11 20:08 | NUR ---
RT NOTE: RECEIVED TRACH PT ON COOL AEROSOL. AMBU BAG/BACK UP TRACH @ BEDSIDE. Q6 BREATHING TX GIVEN PER MD ORDERS WITH NO ADVERSE REACTION NOTED. SX DONE PRN. TRACH PATENT AND SECURED. NO RESP DISTRESS NOTED AT THIS TIME. WILL CONTINUE TO MONITOR PT. Addendum: 08/11/18 at 2228 by DOV GREENBERG RT Amended: Links added.
[2018-08-11 20:37] VITALS: BP 124/84
[2018-08-11] MEDS: POLYETHYLENE GLYCOL 3350 17 GM POWD.PACK GT SCH (22:10)
[2018-08-12] MEDS: ALBUTEROL FS 2.5 MG/3 ML VIAL.NEB NEB SCH ×4 (01:26→20:04)
[2018-08-12] MEDS: MYCOPHENOLATE MOFETIL SUSP 500 MG/2.5 ML UDC GT SCH ×2 (05:17→18:10)
[2018-08-12] MEDS: CHLORHEXIDINE GLUCONATE 15 ML UDC MM SCH ×2 (05:17→18:10)
[2018-08-12] MEDS: OMEPRAZOLE 20 MG CAPSULE.DR GT SCH (05:17)
[2018-08-12] MEDS: POLYVINYL ALCOHOL 15 ML BOTTLE EACHEYE SCH ×4 (05:17→23:30)
[2018-08-12 08:01] VITALS: BP 139/70
[2018-08-12] MEDS: HEPARIN SODIUM, PORCINE 5000 UNITS/1 ML VIAL SQ SCH ×2 (09:00→20:01)
[2018-08-12] MEDS: SENNOSIDES 8.6 MG TABLET GT SCH ×2 (09:00→20:01)
[2018-08-12] MEDS: FOLIC ACID 1 MG TABLET GT SCH ×2 (09:00→17:00)
[2018-08-12] MEDS: BACLOFEN (10 MG) 10 MG TABLET GT SCH ×3 (09:00→17:00)
[2018-08-12] MEDS: LEVETIRACETAM SOL (5 ML) 100 MG/ML UDC GT SCH ×2 (09:00→20:01)
[2018-08-12] MEDS: HYDROGEN PEROXIDE 480 ML BOTTLE TP SCH ×2 (09:00→20:02)
[2018-08-12] MEDS: Z GUARD REMEDY 4 OZ OINT TP SCH ×4 (09:00→20:02)
[2018-08-12] MEDS: SERTRALINE HCL 25 MG TABLET GT SCH (09:00)
[2018-08-12] MEDS: predniSONE 10 MG TABLET GT SCH (09:00)
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
[2018-08-12 20:12] VITALS: BP 113/70
[2018-08-12] MEDS: POLYETHYLENE GLYCOL 3350 17 GM POWD.PACK GT SCH (21:02)
[2018-08-13] MEDS: ALBUTEROL FS 2.5 MG/3 ML VIAL.NEB NEB SCH ×4 (01:37→19:54)
[2018-08-13] MEDS: CHLORHEXIDINE GLUCONATE 15 ML UDC MM SCH ×2 (05:25→18:02)
[2018-08-13] MEDS: OMEPRAZOLE 20 MG CAPSULE.DR GT SCH (05:25)
[2018-08-13] MEDS: JEVITY 1.2 CAL 1,000 ML BOTTLE GT PRN ×2 (05:25→18:02)
[2018-08-13] MEDS: MYCOPHENOLATE MOFETIL SUSP 500 MG/2.5 ML UDC GT SCH ×2 (05:25→18:02)
[2018-08-13] MEDS: POLYVINYL ALCOHOL 15 ML BOTTLE EACHEYE SCH ×4 (05:25→23:37)
[2018-08-13 07:49] VITALS: BP 124/74
--- NOTE | 2018-08-13 08:25 | NUR ---
Seen and examined by Dr. Jeff dsouza.
[2018-08-13] MEDS: SENNOSIDES 8.6 MG TABLET GT SCH ×2 (08:58→20:24)
[2018-08-13] MEDS: SERTRALINE HCL 25 MG TABLET GT SCH (08:58)
[2018-08-13] MEDS: BACLOFEN (10 MG) 10 MG TABLET GT SCH ×3 (08:58→16:40)
[2018-08-13] MEDS: LEVETIRACETAM SOL (5 ML) 100 MG/ML UDC GT SCH ×2 (08:58→20:24)
[2018-08-13] MEDS: FOLIC ACID 1 MG TABLET GT SCH ×2 (08:58→16:40)
[2018-08-13] MEDS: predniSONE 10 MG TABLET GT SCH (08:58)
[2018-08-13] MEDS: HEPARIN SODIUM, PORCINE 5000 UNITS/1 ML VIAL SQ SCH ×2 (08:59→20:25)
[2018-08-13] MEDS: HYDROGEN PEROXIDE 480 ML BOTTLE TP SCH ×2 (09:00→20:25)
[2018-08-13] MEDS: Z GUARD REMEDY 4 OZ OINT TP SCH ×4 (09:00→20:25)
[2018-08-13 20:10] VITALS: BP 105/82
[2018-08-13] MEDS: POLYETHYLENE GLYCOL 3350 17 GM POWD.PACK GT SCH (21:13)
[2018-08-14] MEDS: ALBUTEROL FS 2.5 MG/3 ML VIAL.NEB NEB SCH ×4 (01:28→19:50)
[2018-08-14] MEDS: CHLORHEXIDINE GLUCONATE 15 ML UDC MM SCH ×2 (05:24→18:06)
[2018-08-14] MEDS: OMEPRAZOLE 20 MG CAPSULE.DR GT SCH (05:24)
[2018-08-14] MEDS: MYCOPHENOLATE MOFETIL SUSP 500 MG/2.5 ML UDC GT SCH ×2 (05:24→18:06)
[2018-08-14] MEDS: POLYVINYL ALCOHOL 15 ML BOTTLE EACHEYE SCH ×4 (05:24→23:13)
[2018-08-14 07:52] VITALS: BP 122/73
[2018-08-14] MEDS: Z GUARD REMEDY 4 OZ OINT TP SCH ×4 (09:00→20:30)
[2018-08-14] MEDS: SENNOSIDES 8.6 MG TABLET GT SCH ×2 (09:00→20:28)
[2018-08-14] MEDS: predniSONE 10 MG TABLET GT SCH (09:00)
[2018-08-14] MEDS: BACLOFEN (10 MG) 10 MG TABLET GT SCH ×3 (09:00→17:02)
[2018-08-14] MEDS: HYDROGEN PEROXIDE 480 ML BOTTLE TP SCH ×2 (09:00→20:30)
[2018-08-14] MEDS: LEVETIRACETAM SOL (5 ML) 100 MG/ML UDC GT SCH ×2 (09:00→20:28)
[2018-08-14] MEDS: SERTRALINE HCL 25 MG TABLET GT SCH (09:00)
[2018-08-14] MEDS: FOLIC ACID 1 MG TABLET GT SCH ×2 (09:00→17:02)
[2018-08-14] MEDS: HEPARIN SODIUM, PORCINE 5000 UNITS/1 ML VIAL SQ SCH ×2 (09:04→20:30)
--- NOTE | 2018-08-14 11:05 | NUR ---
PT RCSUTTON'D ON COOL AEROSOL WITH CHARTED SETTINGS. HHN TX GIVEN WITH NO ADVERSE REACTION NOTED. SX DONE. PT TRACH PATENT AND SECURE. NO RESPIRATORY DISTRESS NOTED AT THIS TIME. AMBU BAG AT BEDSIDE. WILL CONTINUE TO MONITOR. Addendum: 08/14/18 at 1108 by USHA SUMMERS RT Amended: Links added.
[2018-08-14] MEDS: JEVITY 1.2 CAL 1,000 ML BOTTLE GT PRN (12:15)
[2018-08-14 20:09] VITALS: BP 134/62
[2018-08-14] MEDS: POLYETHYLENE GLYCOL 3350 17 GM POWD.PACK GT SCH (21:18)
--- NOTE | 2018-08-14 23:07 | NUR ---
RT NOTE PATIENT WAS RECEIVED ON 28% COOL AEROSOL. HHN INLINE TREATMENT WAS GIVEN ,NO ADVERSE REACTION NOTED. PRN SUCTION WAS DONE. TRACH TUBE PATENT AND SECURED. AMBUBAG AND SPARE TRACH AT BED SIDE. NO RESPIRATORY DISTRESS NOTED AT THIS TIME.WILL CONTINUE TO MONITOR PATIENT. Addendum: 08/14/18 at 2308 by ELIAZAR GOMES RT Amended: Links added.
[2018-08-15] MEDS: ALBUTEROL FS 2.5 MG/3 ML VIAL.NEB NEB SCH ×4 (01:41→19:59)
[2018-08-15] MEDS: JEVITY 1.2 CAL 1,000 ML BOTTLE GT PRN ×2 (02:29→17:14)
[2018-08-15] MEDS: OMEPRAZOLE 20 MG CAPSULE.DR GT SCH (05:28)
[2018-08-15] MEDS: CHLORHEXIDINE GLUCONATE 15 ML UDC MM SCH ×2 (05:28→17:15)
[2018-08-15] MEDS: MYCOPHENOLATE MOFETIL SUSP 500 MG/2.5 ML UDC GT SCH ×2 (05:28→17:15)
[2018-08-15] MEDS: POLYVINYL ALCOHOL 15 ML BOTTLE EACHEYE SCH ×3 (05:28→17:15)
[2018-08-15 07:31] VITALS: BP 135/71
[2018-08-15] MEDS: predniSONE 10 MG TABLET GT SCH (09:14)
[2018-08-15] MEDS: LEVETIRACETAM SOL (5 ML) 100 MG/ML UDC GT SCH ×2 (09:14→21:10)
[2018-08-15] MEDS: HYDROGEN PEROXIDE 480 ML BOTTLE TP SCH ×2 (09:14→21:10)
[2018-08-15] MEDS: SERTRALINE HCL 25 MG TABLET GT SCH (09:14)
[2018-08-15] MEDS: HEPARIN SODIUM, PORCINE 5000 UNITS/1 ML VIAL SQ SCH ×2 (09:14→21:10)
[2018-08-15] MEDS: BACLOFEN (10 MG) 10 MG TABLET GT SCH ×3 (09:14→17:14)
[2018-08-15] MEDS: SENNOSIDES 8.6 MG TABLET GT SCH ×2 (09:14→21:10)
[2018-08-15] MEDS: FOLIC ACID 1 MG TABLET GT SCH ×2 (09:14→17:14)
[2018-08-15] MEDS: Z GUARD REMEDY 4 OZ OINT TP SCH ×4 (09:15→21:11)
--- NOTE | 2018-08-15 14:00 | NUR ---
Seen and examined by Dr. Aguilar, NNO given.
[2018-08-15 19:45] VITALS: BP 115/60
--- NOTE | 2018-08-15 20:09 | NUR ---
RT NOTE: RECEIVED TRACH PT ON COOL AEROSOL. AMBU BAG/BACK UP TRACH @ BEDSIDE. Q6 BREATHING TX GIVEN PER MD ORDERS WITH NO ADVERSE REACTION NOTED. SX DONE PRN. TRACH PATENT AND SECURED. NO RESP DISTRESS NOTED AT THIS TIME. WILL CONTINUE TO MONITOR PT. Addendum: 08/16/18 at 0246 by DOV GREENBERG RT Amended: Links added.
[2018-08-15] MEDS: POLYETHYLENE GLYCOL 3350 17 GM POWD.PACK GT SCH (21:11)
[2018-08-16] MEDS: POLYVINYL ALCOHOL 15 ML BOTTLE EACHEYE SCH ×4 (00:10→17:54)
[2018-08-16] MEDS: ALBUTEROL FS 2.5 MG/3 ML VIAL.NEB NEB SCH ×4 (01:45→19:41)
[2018-08-16] MEDS: JEVITY 1.2 CAL 1,000 ML BOTTLE GT PRN ×2 (05:02→22:19)
[2018-08-16] MEDS: OMEPRAZOLE 20 MG CAPSULE.DR GT SCH (05:02)
[2018-08-16] MEDS: CHLORHEXIDINE GLUCONATE 15 ML UDC MM SCH ×2 (05:02→17:54)
[2018-08-16] MEDS: MYCOPHENOLATE MOFETIL SUSP 500 MG/2.5 ML UDC GT SCH ×2 (05:02→17:54)
[2018-08-16 07:41] VITALS: BP 116/83
[2018-08-16] MEDS: predniSONE 10 MG TABLET GT SCH (09:18)
[2018-08-16] MEDS: SENNOSIDES 8.6 MG TABLET GT SCH ×2 (09:18→20:17)
[2018-08-16] MEDS: LEVETIRACETAM SOL (5 ML) 100 MG/ML UDC GT SCH ×2 (09:18→20:17)
[2018-08-16] MEDS: BACLOFEN (10 MG) 10 MG TABLET GT SCH ×3 (09:18→17:54)
[2018-08-16] MEDS: SERTRALINE HCL 25 MG TABLET GT SCH (09:18)
[2018-08-16] MEDS: FOLIC ACID 1 MG TABLET GT SCH ×2 (09:18→17:54)
[2018-08-16] MEDS: HEPARIN SODIUM, PORCINE 5000 UNITS/1 ML VIAL SQ SCH ×2 (09:21→20:18)
[2018-08-16] MEDS: Z GUARD REMEDY 4 OZ OINT TP SCH ×4 (09:22→20:19)
[2018-08-16] MEDS: HYDROGEN PEROXIDE 480 ML BOTTLE TP SCH ×2 (09:22→20:19)
--- NOTE | 2018-08-16 16:17 | NUR ---
HILTON CANELA spoke to resident's father on the phone communicating upcoming IDT mtg this ThursdayAugust 21 at 12:30. Father will not be able to attend it. HILTON also called resident's to communicate the mtg. said he is not the one who attends the mtg but, resident's father.
[2018-08-16 19:45] VITALS: BP 129/69
[2018-08-16] MEDS: POLYETHYLENE GLYCOL 3350 17 GM POWD.PACK GT SCH (22:19)
[2018-08-17] MEDS: POLYVINYL ALCOHOL 15 ML BOTTLE EACHEYE SCH ×5 (00:15→23:32)
[2018-08-17] MEDS: ALBUTEROL FS 2.5 MG/3 ML VIAL.NEB NEB SCH ×4 (00:40→19:27)
[2018-08-17] MEDS: MYCOPHENOLATE MOFETIL SUSP 500 MG/2.5 ML UDC GT SCH ×2 (05:17→17:44)
[2018-08-17] MEDS: OMEPRAZOLE 20 MG CAPSULE.DR GT SCH (05:17)
[2018-08-17] MEDS: CHLORHEXIDINE GLUCONATE 15 ML UDC MM SCH ×2 (05:17→17:44)
[2018-08-17 07:42] VITALS: BP 113/72
[2018-08-17] MEDS: predniSONE 10 MG TABLET GT SCH (09:38)
[2018-08-17] MEDS: LEVETIRACETAM SOL (5 ML) 100 MG/ML UDC GT SCH ×2 (09:38→20:08)
[2018-08-17] MEDS: Z GUARD REMEDY 4 OZ OINT TP SCH ×4 (09:38→20:09)
[2018-08-17] MEDS: FOLIC ACID 1 MG TABLET GT SCH ×2 (09:38→16:20)
[2018-08-17] MEDS: BACLOFEN (10 MG) 10 MG TABLET GT SCH ×3 (09:38→16:20)
[2018-08-17] MEDS: HYDROGEN PEROXIDE 480 ML BOTTLE TP SCH ×2 (09:38→20:09)
[2018-08-17] MEDS: SERTRALINE HCL 25 MG TABLET GT SCH (09:38)
[2018-08-17] MEDS: SENNOSIDES 8.6 MG TABLET GT SCH ×2 (09:38→20:08)
[2018-08-17] MEDS: HEPARIN SODIUM, PORCINE 5000 UNITS/1 ML VIAL SQ SCH ×2 (09:40→20:09)
[2018-08-17] MEDS: JEVITY 1.2 CAL 1,000 ML BOTTLE GT PRN (18:57)
[2018-08-17 19:54] VITALS: BP 123/73
[2018-08-17] MEDS: POLYETHYLENE GLYCOL 3350 17 GM POWD.PACK GT SCH (22:10)
[2018-08-18] MEDS: ALBUTEROL FS 2.5 MG/3 ML VIAL.NEB NEB SCH ×4 (01:04→20:03)
[2018-08-18] MEDS: CHLORHEXIDINE GLUCONATE 15 ML UDC MM SCH ×2 (05:12→17:52)
[2018-08-18] MEDS: MYCOPHENOLATE MOFETIL SUSP 500 MG/2.5 ML UDC GT SCH ×2 (05:12→17:52)
[2018-08-18] MEDS: POLYVINYL ALCOHOL 15 ML BOTTLE EACHEYE SCH ×4 (05:12→23:21)
[2018-08-18] MEDS: OMEPRAZOLE 20 MG CAPSULE.DR GT SCH (05:12)
[2018-08-18] MEDS: LEVETIRACETAM SOL (5 ML) 100 MG/ML UDC GT SCH ×2 (08:51→20:22)
[2018-08-18] MEDS: SENNOSIDES 8.6 MG TABLET GT SCH ×2 (08:51→20:22)
[2018-08-18] MEDS: SERTRALINE HCL 25 MG TABLET GT SCH (08:51)
[2018-08-18] MEDS: predniSONE 10 MG TABLET GT SCH (08:51)
[2018-08-18] MEDS: BACLOFEN (10 MG) 10 MG TABLET GT SCH ×3 (08:51→17:52)
[2018-08-18] MEDS: FOLIC ACID 1 MG TABLET GT SCH ×2 (08:51→17:52)
[2018-08-18] MEDS: HYDROGEN PEROXIDE 480 ML BOTTLE TP SCH ×2 (08:52→20:23)
[2018-08-18] MEDS: HEPARIN SODIUM, PORCINE 5000 UNITS/1 ML VIAL SQ SCH ×2 (08:52→20:23)
[2018-08-18] MEDS: Z GUARD REMEDY 4 OZ OINT TP SCH ×4 (08:52→20:24)
[2018-08-18 12:06] VITALS: BP 121/77
[2018-08-18 20:13] VITALS: BP 125/73
[2018-08-18] MEDS: POLYETHYLENE GLYCOL 3350 17 GM POWD.PACK GT SCH (22:17)
[2018-08-19] MEDS: ALBUTEROL FS 2.5 MG/3 ML VIAL.NEB NEB SCH ×4 (02:01→20:01)
[2018-08-19] MEDS: POLYVINYL ALCOHOL 15 ML BOTTLE EACHEYE SCH ×4 (05:21→23:38)
[2018-08-19] MEDS: CHLORHEXIDINE GLUCONATE 15 ML UDC MM SCH ×2 (05:21→17:00)
[2018-08-19] MEDS: OMEPRAZOLE 20 MG CAPSULE.DR GT SCH (05:21)
[2018-08-19] MEDS: MYCOPHENOLATE MOFETIL SUSP 500 MG/2.5 ML UDC GT SCH ×2 (05:21→17:00)
[2018-08-19 07:36] VITALS: BP 113/59
[2018-08-19] MEDS: LEVETIRACETAM SOL (5 ML) 100 MG/ML UDC GT SCH ×2 (09:06→20:48)
[2018-08-19] MEDS: BACLOFEN (10 MG) 10 MG TABLET GT SCH ×3 (09:06→17:00)
[2018-08-19] MEDS: SENNOSIDES 8.6 MG TABLET GT SCH ×2 (09:06→20:48)
[2018-08-19] MEDS: predniSONE 10 MG TABLET GT SCH (09:06)
[2018-08-19] MEDS: FOLIC ACID 1 MG TABLET GT SCH ×2 (09:06→17:00)
[2018-08-19] MEDS: SERTRALINE HCL 25 MG TABLET GT SCH (09:06)
[2018-08-19] MEDS: HYDROGEN PEROXIDE 480 ML BOTTLE TP SCH ×2 (09:07→20:49)
[2018-08-19] MEDS: Z GUARD REMEDY 4 OZ OINT TP SCH ×4 (09:07→20:49)
[2018-08-19] MEDS: HEPARIN SODIUM, PORCINE 5000 UNITS/1 ML VIAL SQ SCH ×2 (09:07→20:49)
--- NOTE | 2018-08-19 11:02 | NUR ---
Dr Aguilar gave some apple sauce by mouth to pt and he said she is ready to eat by mouth again. Dr Aguilar ordered to resume pureed diet with honey thick liquids TID and continue GT feeding. Notified pt's father.
--- NOTE | 2018-08-19 17:31 | NUR ---
Pt refused to swallow her food. Charge nurse fed her a couple of small teaspoonfuls of pureed diet but she was only pocketing the food in her mouth.
[2018-08-19 19:30] VITALS: BP 115/60
[2018-08-19] MEDS: POLYETHYLENE GLYCOL 3350 17 GM POWD.PACK GT SCH (22:36)
[2018-08-20] MEDS: ALBUTEROL FS 2.5 MG/3 ML VIAL.NEB NEB SCH ×4 (01:33→19:20)
[2018-08-20] MEDS: JEVITY 1.2 CAL 1,000 ML BOTTLE GT PRN (03:30)
[2018-08-20] MEDS: OMEPRAZOLE 20 MG CAPSULE.DR GT SCH (05:09)
[2018-08-20] MEDS: CHLORHEXIDINE GLUCONATE 15 ML UDC MM SCH ×2 (05:09→17:50)
[2018-08-20] MEDS: MYCOPHENOLATE MOFETIL SUSP 500 MG/2.5 ML UDC GT SCH ×2 (05:09→17:50)
[2018-08-20] MEDS: POLYVINYL ALCOHOL 15 ML BOTTLE EACHEYE SCH ×4 (05:09→23:18)
[2018-08-20 07:38] VITALS: BP 129/65
[2018-08-20] MEDS: LEVETIRACETAM SOL (5 ML) 100 MG/ML UDC GT SCH ×2 (08:34→20:30)
[2018-08-20] MEDS: SENNOSIDES 8.6 MG TABLET GT SCH ×2 (08:34→21:47)
[2018-08-20] MEDS: SERTRALINE HCL 25 MG TABLET GT SCH (08:34)
[2018-08-20] MEDS: HEPARIN SODIUM, PORCINE 5000 UNITS/1 ML VIAL SQ SCH ×2 (08:34→20:33)
[2018-08-20] MEDS: predniSONE 10 MG TABLET GT SCH (08:34)
[2018-08-20] MEDS: Z GUARD REMEDY 4 OZ OINT TP SCH ×4 (08:34→20:30)
[2018-08-20] MEDS: HYDROGEN PEROXIDE 480 ML BOTTLE TP SCH ×2 (08:34→20:30)
[2018-08-20] MEDS: BACLOFEN (10 MG) 10 MG TABLET GT SCH ×3 (08:34→16:32)
[2018-08-20] MEDS: FOLIC ACID 1 MG TABLET GT SCH ×2 (08:34→16:32)
--- NOTE | 2018-08-20 14:09 | NUR ---
INTERDISCIPLINARY TEAM CONFERENCE (IDT) was held today. Resident's father Dr. Darrel Swift was not able to attend today's IDT meeting. Dr. Lubin and the interdisciplinary team reviewed the current plan of care in detail. Orders as well as treatment and medications were reviewed. No new orders were given.
--- NOTE | 2018-08-20 15:00 | NUR ---
Notified Dr. Aguilar that during IDT, pharmacist is recommending to do BMP to monitor renal function due to patient on Keppra. MD Aguilar agreed. Order carried out.
[2018-08-20 19:21] VITALS: BP 118/74
[2018-08-20 20:00] VITALS: BP_SYST 100; BP_SYST 118; BP_DIAS 61; BP_DIAS 74
[2018-08-20] MEDS: POLYETHYLENE GLYCOL 3350 17 GM POWD.PACK GT SCH (21:47)
[2018-08-21] MEDS: ALBUTEROL FS 2.5 MG/3 ML VIAL.NEB NEB SCH ×4 (01:19→19:51)
[2018-08-21] MEDS: CHLORHEXIDINE GLUCONATE 15 ML UDC MM SCH ×2 (05:55→18:15)
[2018-08-21] MEDS: POLYVINYL ALCOHOL 15 ML BOTTLE EACHEYE SCH ×3 (05:55→18:15)
[2018-08-21] MEDS: MYCOPHENOLATE MOFETIL SUSP 500 MG/2.5 ML UDC GT SCH ×2 (05:55→18:15)
[2018-08-21] MEDS: OMEPRAZOLE 20 MG CAPSULE.DR GT SCH (05:55)
[2018-08-21 08:00] VITALS: BP 119/72
[2018-08-21 08:10] VITALS: BP 121/63
[2018-08-21] MEDS: LEVETIRACETAM SOL (5 ML) 100 MG/ML UDC GT SCH ×2 (08:32→20:30)
[2018-08-21] MEDS: Z GUARD REMEDY 4 OZ OINT TP SCH ×4 (08:33→20:31)
[2018-08-21] MEDS: predniSONE 10 MG TABLET GT SCH (08:35)
[2018-08-21] MEDS: FOLIC ACID 1 MG TABLET GT SCH ×2 (08:35→17:00)
[2018-08-21] MEDS: BACLOFEN (10 MG) 10 MG TABLET GT SCH ×3 (08:35→17:00)
[2018-08-21] MEDS: SERTRALINE HCL 25 MG TABLET GT SCH (08:36)
[2018-08-21] MEDS: HYDROGEN PEROXIDE 480 ML BOTTLE TP SCH ×2 (08:37→20:31)
[2018-08-21] MEDS: SENNOSIDES 8.6 MG TABLET GT SCH ×2 (08:43→20:30)
[2018-08-21] MEDS: HEPARIN SODIUM, PORCINE 5000 UNITS/1 ML VIAL SQ SCH ×2 (08:45→20:31)
--- NOTE | 2018-08-21 15:30 | NUR ---
Seen and examined by Dr. Aguilar, made him aware that patient is not swallowing her food instead pocketing it only in her mouth. He said it is OK to DC the order. Order carried out.
[2018-08-21] MEDS: JEVITY 1.2 CAL 1,000 ML BOTTLE GT PRN (15:49)
[2018-08-21 20:36] VITALS: BP 103/56
--- NOTE | 2018-08-21 22:01 | NUR ---
RT NOTE PATIENT WAS RECEIVED ON 28% COOL AEROSOL. HHN INLINE TREATMENT WAS GIVEN ,NO ADVERSE REACTION NOTED. PRN SUCTION WAS DONE. TRACH TUBE PATENT AND SECURED. AMBUBAG AND SPARE TRACH AT BED SIDE. NO RESPIRATORY DISTRESS NOTED AT THIS TIME.WILL CONTINUE TO MONITOR PATIENT. Addendum: 08/21/18 at 2201 by ELIAZAR GOMES RT Amended: Links added.
[2018-08-21] MEDS: POLYETHYLENE GLYCOL 3350 17 GM POWD.PACK GT SCH (22:26)
[2018-08-22] MEDS: POLYVINYL ALCOHOL 15 ML BOTTLE EACHEYE SCH ×4 (00:30→18:31)
[2018-08-22] MEDS: ALBUTEROL FS 2.5 MG/3 ML VIAL.NEB NEB SCH ×4 (01:51→19:47)
[2018-08-22] MEDS: CHLORHEXIDINE GLUCONATE 15 ML UDC MM SCH ×2 (06:01→18:31)
[2018-08-22] MEDS: MYCOPHENOLATE MOFETIL SUSP 500 MG/2.5 ML UDC GT SCH ×2 (06:01→18:31)
[2018-08-22] MEDS: HEPARIN SODIUM, PORCINE 5000 UNITS/1 ML VIAL SQ SCH ×2 (09:00→20:36)
[2018-08-22] MEDS: FOLIC ACID 1 MG TABLET GT SCH ×2 (09:33→16:16)
[2018-08-22] MEDS: BACLOFEN (10 MG) 10 MG TABLET GT SCH ×3 (09:33→16:16)
[2018-08-22] MEDS: SENNOSIDES 8.6 MG TABLET GT SCH ×2 (09:33→20:35)
[2018-08-22] MEDS: HYDROGEN PEROXIDE 480 ML BOTTLE TP SCH ×2 (09:33→20:36)
[2018-08-22] MEDS: predniSONE 10 MG TABLET GT SCH (09:33)
[2018-08-22] MEDS: SERTRALINE HCL 25 MG TABLET GT SCH (09:33)
[2018-08-22] MEDS: LEVETIRACETAM SOL (5 ML) 100 MG/ML UDC GT SCH ×2 (09:33→20:35)
[2018-08-22] MEDS: Z GUARD REMEDY 4 OZ OINT TP SCH ×4 (09:34→20:36)
[2018-08-22 14:57] VITALS: BP 141/56
[2018-08-22] MEDS: JEVITY 1.2 CAL 1,000 ML BOTTLE GT PRN (16:16)
[2018-08-22 20:32] VITALS: BP 131/83
[2018-08-22] MEDS: POLYETHYLENE GLYCOL 3350 17 GM POWD.PACK GT SCH (22:02)
[2018-08-23] MEDS: ALBUTEROL FS 2.5 MG/3 ML VIAL.NEB NEB SCH ×4 (01:04→19:51)
[2018-08-23] MEDS: MYCOPHENOLATE MOFETIL SUSP 500 MG/2.5 ML UDC GT SCH ×2 (05:03→18:29)
[2018-08-23] MEDS: CHLORHEXIDINE GLUCONATE 15 ML UDC MM SCH ×2 (05:03→18:29)
[2018-08-23] MEDS: POLYVINYL ALCOHOL 15 ML BOTTLE EACHEYE SCH ×4 (05:03→18:28)
[2018-08-23] MEDS: JEVITY 1.2 CAL 1,000 ML BOTTLE GT PRN ×2 (05:03→21:49)
[2018-08-23 07:48] LABS: CALCIUM, SERUM 9.5 mg/dL (8.5-10.1); CREATININE 0.6 mg/dL (0.6-1.3); POTASSIUM 4.6 mmol/L (3.5-5.1)
[2018-08-23 08:16] VITALS: BP 161/85
[2018-08-23] MEDS: BACLOFEN (10 MG) 10 MG TABLET GT SCH ×3 (09:33→17:00)
[2018-08-23] MEDS: LEVETIRACETAM SOL (5 ML) 100 MG/ML UDC GT SCH ×2 (09:33→20:52)
[2018-08-23] MEDS: SENNOSIDES 8.6 MG TABLET GT SCH ×2 (09:33→20:52)
[2018-08-23] MEDS: predniSONE 10 MG TABLET GT SCH (09:33)
[2018-08-23] MEDS: FOLIC ACID 1 MG TABLET GT SCH ×2 (09:33→17:00)
[2018-08-23] MEDS: SERTRALINE HCL 25 MG TABLET GT SCH (09:33)
[2018-08-23] MEDS: HYDROGEN PEROXIDE 480 ML BOTTLE TP SCH ×2 (09:34→20:53)
[2018-08-23] MEDS: HEPARIN SODIUM, PORCINE 5000 UNITS/1 ML VIAL SQ SCH ×2 (09:34→20:53)
[2018-08-23] MEDS: Z GUARD REMEDY 4 OZ OINT TP SCH ×4 (09:35→20:54)
--- NOTE | 2018-08-23 15:08 | NUR ---
Resident had a dental cleaning today with Dr. Ivan
[2018-08-23 20:11] VITALS: BP 107/59
[2018-08-23] MEDS: POLYETHYLENE GLYCOL 3350 17 GM POWD.PACK GT SCH (21:49)
[2018-08-24] MEDS: POLYVINYL ALCOHOL 15 ML BOTTLE EACHEYE SCH ×5 (00:12→23:44)
[2018-08-24] MEDS: ALBUTEROL FS 2.5 MG/3 ML VIAL.NEB NEB SCH ×4 (00:54→19:22)
--- NOTE | 2018-08-24 02:03 | NUR ---
PT REGINA HANDY'D ON COOL AEROSOL WITH CHARTED SETTINGS. HHN TX GIVEN WITH NO ADVERSE REACTION NOTED. SX DONE. PT TRACH PATENT AND SECURE. NO RESPIRATORY DISTRESS NOTED AT THIS TIME. AMBU BAG AT BEDSIDE. Addendum: 08/24/18 at 0204 by USHA SUMMERS RT Amended: Links added.
[2018-08-24] MEDS: CHLORHEXIDINE GLUCONATE 15 ML UDC MM SCH ×2 (06:13→17:11)
[2018-08-24] MEDS: MYCOPHENOLATE MOFETIL SUSP 500 MG/2.5 ML UDC GT SCH ×2 (06:13→17:11)
[2018-08-24 07:51] VITALS: BP 135/75
[2018-08-24] MEDS: SENNOSIDES 8.6 MG TABLET GT SCH ×2 (09:10→20:57)
[2018-08-24] MEDS: BACLOFEN (10 MG) 10 MG TABLET GT SCH ×3 (09:10→17:11)
[2018-08-24] MEDS: FOLIC ACID 1 MG TABLET GT SCH ×2 (09:10→17:11)
[2018-08-24] MEDS: LEVETIRACETAM SOL (5 ML) 100 MG/ML UDC GT SCH ×2 (09:10→20:57)
[2018-08-24] MEDS: SERTRALINE HCL 25 MG TABLET GT SCH (09:10)
[2018-08-24] MEDS: predniSONE 10 MG TABLET GT SCH (09:10)
[2018-08-24] MEDS: HEPARIN SODIUM, PORCINE 5000 UNITS/1 ML VIAL SQ SCH ×2 (09:11→20:58)
[2018-08-24] MEDS: HYDROGEN PEROXIDE 480 ML BOTTLE TP SCH ×2 (09:12→20:58)
[2018-08-24] MEDS: Z GUARD REMEDY 4 OZ OINT TP SCH ×4 (09:12→20:59)
[2018-08-24] MEDS: JEVITY 1.2 CAL 1,000 ML BOTTLE GT PRN (14:00)
[2018-08-24 20:13] VITALS: BP 131/86
[2018-08-24] MEDS: POLYETHYLENE GLYCOL 3350 17 GM POWD.PACK GT SCH (21:04)
[2018-08-25] MEDS: ALBUTEROL FS 2.5 MG/3 ML VIAL.NEB NEB SCH ×4 (02:25→20:02)
[2018-08-25] MEDS: JEVITY 1.2 CAL 1,000 ML BOTTLE GT PRN ×2 (02:29→16:46)
[2018-08-25] MEDS: MYCOPHENOLATE MOFETIL SUSP 500 MG/2.5 ML UDC GT SCH ×2 (05:30→18:48)
[2018-08-25] MEDS: POLYVINYL ALCOHOL 15 ML BOTTLE EACHEYE SCH ×4 (05:30→23:35)
[2018-08-25] MEDS: CHLORHEXIDINE GLUCONATE 15 ML UDC MM SCH ×2 (05:30→18:48)
[2018-08-25 07:50] VITALS: BP 137/48
[2018-08-25] MEDS: BACLOFEN (10 MG) 10 MG TABLET GT SCH ×3 (08:44→16:46)
[2018-08-25] MEDS: predniSONE 10 MG TABLET GT SCH (08:45)
[2018-08-25] MEDS: SERTRALINE HCL 25 MG TABLET GT SCH (08:45)
[2018-08-25] MEDS: LEVETIRACETAM SOL (5 ML) 100 MG/ML UDC GT SCH ×2 (08:45→20:47)
[2018-08-25] MEDS: SENNOSIDES 8.6 MG TABLET GT SCH ×2 (08:45→20:47)
[2018-08-25] MEDS: FOLIC ACID 1 MG TABLET GT SCH ×2 (08:46→16:46)
[2018-08-25] MEDS: HEPARIN SODIUM, PORCINE 5000 UNITS/1 ML VIAL SQ SCH ×2 (08:47→20:47)
[2018-08-25] MEDS: HYDROGEN PEROXIDE 480 ML BOTTLE TP SCH ×2 (09:00→20:48)
[2018-08-25] MEDS: Z GUARD REMEDY 4 OZ OINT TP SCH ×4 (09:00→20:48)
--- NOTE | 2018-08-25 12:18 | NUR ---
Seen and examined by Dr. Aguilar, NNO given.
[2018-08-25 20:30] VITALS: BP 131/84
[2018-08-25] MEDS: POLYETHYLENE GLYCOL 3350 17 GM POWD.PACK GT SCH (22:04)
[2018-08-26] MEDS: ALBUTEROL FS 2.5 MG/3 ML VIAL.NEB NEB SCH ×4 (00:54→19:42)
[2018-08-26] MEDS: MYCOPHENOLATE MOFETIL SUSP 500 MG/2.5 ML UDC GT SCH ×2 (06:53→17:07)
[2018-08-26] MEDS: POLYVINYL ALCOHOL 15 ML BOTTLE EACHEYE SCH ×4 (06:53→23:29)
[2018-08-26] MEDS: CHLORHEXIDINE GLUCONATE 15 ML UDC MM SCH ×2 (06:53→17:07)
[2018-08-26] MEDS: JEVITY 1.2 CAL 1,000 ML BOTTLE GT PRN ×2 (06:53→21:52)
[2018-08-26] MEDS: Z GUARD REMEDY 4 OZ OINT TP SCH ×4 (09:00→21:22)
[2018-08-26] MEDS: HEPARIN SODIUM, PORCINE 5000 UNITS/1 ML VIAL SQ SCH ×2 (09:00→21:21)
[2018-08-26] MEDS: BACLOFEN (10 MG) 10 MG TABLET GT SCH ×3 (09:00→17:07)
[2018-08-26] MEDS: predniSONE 10 MG TABLET GT SCH (09:00)
[2018-08-26] MEDS: HYDROGEN PEROXIDE 480 ML BOTTLE TP SCH ×2 (09:00→21:22)
[2018-08-26] MEDS: LEVETIRACETAM SOL (5 ML) 100 MG/ML UDC GT SCH ×2 (09:00→21:21)
[2018-08-26] MEDS: FOLIC ACID 1 MG TABLET GT SCH ×2 (09:00→17:06)
[2018-08-26] MEDS: SERTRALINE HCL 25 MG TABLET GT SCH (09:00)
[2018-08-26] MEDS: SENNOSIDES 8.6 MG TABLET GT SCH ×2 (09:00→21:21)
--- NOTE | 2018-08-26 15:00 | NUR ---
Seen and examined by Sugar Spangler NP NNO given at this time.
[2018-08-26 19:24] VITALS: BP 124/63
[2018-08-26 19:58] VITALS: BP 116/81
[2018-08-26] MEDS: POLYETHYLENE GLYCOL 3350 17 GM POWD.PACK GT SCH (21:22)
[2018-08-27] MEDS: ALBUTEROL FS 2.5 MG/3 ML VIAL.NEB NEB SCH ×4 (00:35→19:55)
[2018-08-27] MEDS: CHLORHEXIDINE GLUCONATE 15 ML UDC MM SCH ×2 (05:08→17:50)
[2018-08-27] MEDS: POLYVINYL ALCOHOL 15 ML BOTTLE EACHEYE SCH ×3 (05:08→17:50)
[2018-08-27] MEDS: MYCOPHENOLATE MOFETIL SUSP 500 MG/2.5 ML UDC GT SCH ×2 (05:08→17:50)
[2018-08-27 07:54] VITALS: BP 121/55
[2018-08-27] MEDS: FOLIC ACID 1 MG TABLET GT SCH ×2 (09:13→17:50)
[2018-08-27] MEDS: predniSONE 10 MG TABLET GT SCH (09:13)
[2018-08-27] MEDS: SERTRALINE HCL 25 MG TABLET GT SCH (09:13)
[2018-08-27] MEDS: LEVETIRACETAM SOL (5 ML) 100 MG/ML UDC GT SCH ×2 (09:13→20:26)
[2018-08-27] MEDS: SENNOSIDES 8.6 MG TABLET GT SCH ×2 (09:13→20:27)
[2018-08-27] MEDS: BACLOFEN (10 MG) 10 MG TABLET GT SCH ×3 (09:13→17:50)
[2018-08-27] MEDS: HEPARIN SODIUM, PORCINE 5000 UNITS/1 ML VIAL SQ SCH ×2 (09:14→20:31)
[2018-08-27] MEDS: HYDROGEN PEROXIDE 480 ML BOTTLE TP SCH ×2 (09:14→20:32)
[2018-08-27] MEDS: Z GUARD REMEDY 4 OZ OINT TP SCH ×4 (09:14→20:33)
[2018-08-27 20:06] VITALS: BP 132/81
--- NOTE | 2018-08-27 21:42 | NUR ---
RT NOTE PATIENT WAS RECEIVED ON COOL AEROSOL. AMBU BAG/BACK UP TRACH @ BEDSIDE. Q6 BREATHING TX GIVEN PER MD ORDERS WITH NO ADVERSE REACTION NOTED. SUCTION DONE PRN. TRACH PATENT AND SECURED. NO RESPIRATORY DISTRESS NOTED AT THIS TIME. WILL CONTINUE TO MONITOR PATIENT Addendum: 08/27/18 at 2143 by ELIAZAR GOMES RT Amended: Links added.
[2018-08-27] MEDS: POLYETHYLENE GLYCOL 3350 17 GM POWD.PACK GT SCH (22:03)
[2018-08-28] MEDS: ALBUTEROL FS 2.5 MG/3 ML VIAL.NEB NEB SCH ×4 (01:37→19:43)
[2018-08-28] MEDS: POLYVINYL ALCOHOL 15 ML BOTTLE EACHEYE SCH ×5 (05:37→23:20)
[2018-08-28] MEDS: MYCOPHENOLATE MOFETIL SUSP 500 MG/2.5 ML UDC GT SCH ×2 (05:37→17:01)
[2018-08-28] MEDS: CHLORHEXIDINE GLUCONATE 15 ML UDC MM SCH ×2 (05:37→17:04)
[2018-08-28 07:59] VITALS: BP 133/79
[2018-08-28] MEDS: FOLIC ACID 1 MG TABLET GT SCH ×2 (08:42→16:50)
[2018-08-28] MEDS: BACLOFEN (10 MG) 10 MG TABLET GT SCH ×3 (08:43→16:49)
[2018-08-28] MEDS: predniSONE 10 MG TABLET GT SCH (08:45)
[2018-08-28] MEDS: SERTRALINE HCL 25 MG TABLET GT SCH (08:46)
[2018-08-28] MEDS: LEVETIRACETAM SOL (5 ML) 100 MG/ML UDC GT SCH ×2 (08:47→21:05)
[2018-08-28] MEDS: Z GUARD REMEDY 4 OZ OINT TP SCH ×4 (08:48→21:09)
[2018-08-28] MEDS: HYDROGEN PEROXIDE 480 ML BOTTLE TP SCH ×2 (08:48→21:08)
[2018-08-28] MEDS: SENNOSIDES 8.6 MG TABLET GT SCH ×2 (08:49→21:05)
[2018-08-28] MEDS: HEPARIN SODIUM, PORCINE 5000 UNITS/1 ML VIAL SQ SCH ×2 (08:52→21:06)
[2018-08-28] MEDS: JEVITY 1.2 CAL 1,000 ML BOTTLE GT PRN (16:48)
[2018-08-28 20:29] VITALS: BP 133/83
[2018-08-28] MEDS: POLYETHYLENE GLYCOL 3350 17 GM POWD.PACK GT SCH (21:06)
[2018-08-29] MEDS: ALBUTEROL FS 2.5 MG/3 ML VIAL.NEB NEB SCH ×4 (01:08→20:06)
[2018-08-29] MEDS: CHLORHEXIDINE GLUCONATE 15 ML UDC MM SCH ×2 (05:55→18:03)
[2018-08-29] MEDS: MYCOPHENOLATE MOFETIL SUSP 500 MG/2.5 ML UDC GT SCH ×2 (05:55→18:03)
[2018-08-29] MEDS: POLYVINYL ALCOHOL 15 ML BOTTLE EACHEYE SCH ×4 (05:55→23:22)
[2018-08-29] MEDS: JEVITY 1.2 CAL 1,000 ML BOTTLE GT PRN ×2 (05:56→18:32)
[2018-08-29 08:04] VITALS: BP 140/85
[2018-08-29] MEDS: LEVETIRACETAM SOL (5 ML) 100 MG/ML UDC GT SCH ×2 (08:50→21:02)
[2018-08-29] MEDS: SERTRALINE HCL 25 MG TABLET GT SCH (08:50)
[2018-08-29] MEDS: FOLIC ACID 1 MG TABLET GT SCH ×2 (08:50→17:00)
[2018-08-29] MEDS: HYDROGEN PEROXIDE 480 ML BOTTLE TP SCH ×2 (08:50→21:03)
[2018-08-29] MEDS: predniSONE 10 MG TABLET GT SCH (08:50)
[2018-08-29] MEDS: SENNOSIDES 8.6 MG TABLET GT SCH ×2 (08:50→21:02)
[2018-08-29] MEDS: BACLOFEN (10 MG) 10 MG TABLET GT SCH ×3 (08:50→17:00)
[2018-08-29] MEDS: HEPARIN SODIUM, PORCINE 5000 UNITS/1 ML VIAL SQ SCH ×2 (08:51→21:03)
[2018-08-29] MEDS: Z GUARD REMEDY 4 OZ OINT TP SCH ×4 (08:51→21:03)
[2018-08-29 20:25] VITALS: BP 109/70
[2018-08-29] MEDS: POLYETHYLENE GLYCOL 3350 17 GM POWD.PACK GT SCH (21:04)
[2018-08-30] MEDS: ALBUTEROL FS 2.5 MG/3 ML VIAL.NEB NEB SCH ×4 (00:50→19:15)
[2018-08-30] MEDS: POLYVINYL ALCOHOL 15 ML BOTTLE EACHEYE SCH ×4 (06:08→23:45)
[2018-08-30] MEDS: MYCOPHENOLATE MOFETIL SUSP 500 MG/2.5 ML UDC GT SCH ×2 (06:08→17:57)
[2018-08-30] MEDS: CHLORHEXIDINE GLUCONATE 15 ML UDC MM SCH ×2 (06:08→17:57)
[2018-08-30 08:02] VITALS: BP 107/79
[2018-08-30] MEDS: HEPARIN SODIUM, PORCINE 5000 UNITS/1 ML VIAL SQ SCH ×2 (09:00→21:05)
[2018-08-30] MEDS: SENNOSIDES 8.6 MG TABLET GT SCH ×2 (09:00→21:04)
[2018-08-30] MEDS: SERTRALINE HCL 25 MG TABLET GT SCH (09:00)
[2018-08-30] MEDS: BACLOFEN (10 MG) 10 MG TABLET GT SCH ×3 (09:00→17:56)
[2018-08-30] MEDS: Z GUARD REMEDY 4 OZ OINT TP SCH ×4 (09:00→21:05)
[2018-08-30] MEDS: HYDROGEN PEROXIDE 480 ML BOTTLE TP SCH ×2 (09:00→21:05)
[2018-08-30] MEDS: predniSONE 10 MG TABLET GT SCH (09:00)
[2018-08-30] MEDS: LEVETIRACETAM SOL (5 ML) 100 MG/ML UDC GT SCH ×2 (09:00→21:04)
[2018-08-30] MEDS: FOLIC ACID 1 MG TABLET GT SCH ×2 (09:00→17:56)
--- NOTE | 2018-08-30 09:30 | NUR ---
SW called resident's father and informed about received correspondence for Pratima. Father requested to leave them in resident's room to be picked up by him when he comes this Thursday09/01/2018
--- NOTE | 2018-08-30 14:25 | NUR ---
Pt. was seeing by the podiatry Dr. Wolfe on 08/27 and an appointment was made for 09/17.
[2018-08-30 20:07] VITALS: BP 111/58
[2018-08-30] MEDS: POLYETHYLENE GLYCOL 3350 17 GM POWD.PACK GT SCH (21:05)
[2018-08-31] MEDS: ALBUTEROL FS 2.5 MG/3 ML VIAL.NEB NEB SCH ×4 (01:24→19:54)
[2018-08-31] MEDS: CHLORHEXIDINE GLUCONATE 15 ML UDC MM SCH ×2 (06:00→17:20)
[2018-08-31] MEDS: MYCOPHENOLATE MOFETIL SUSP 500 MG/2.5 ML UDC GT SCH ×2 (06:00→17:20)
[2018-08-31] MEDS: POLYVINYL ALCOHOL 15 ML BOTTLE EACHEYE SCH ×4 (06:00→23:15)
[2018-08-31 07:42] VITALS: BP 101/73
[2018-08-31] MEDS: FOLIC ACID 1 MG TABLET GT SCH ×2 (08:43→17:20)
[2018-08-31] MEDS: BACLOFEN (10 MG) 10 MG TABLET GT SCH ×3 (08:43→17:20)
[2018-08-31] MEDS: SENNOSIDES 8.6 MG TABLET GT SCH (08:43)
[2018-08-31] MEDS: LEVETIRACETAM SOL (5 ML) 100 MG/ML UDC GT SCH ×2 (08:43→21:33)
[2018-08-31] MEDS: predniSONE 10 MG TABLET GT SCH (08:43)
[2018-08-31] MEDS: SERTRALINE HCL 25 MG TABLET GT SCH (08:43)
[2018-08-31] MEDS: HEPARIN SODIUM, PORCINE 5000 UNITS/1 ML VIAL SQ SCH ×2 (08:44→21:33)
[2018-08-31] MEDS: HYDROGEN PEROXIDE 480 ML BOTTLE TP SCH ×2 (09:00→21:33)
[2018-08-31] MEDS: Z GUARD REMEDY 4 OZ OINT TP SCH ×5 (09:00→21:34)
--- NOTE | 2018-08-31 17:54 | NUR ---
Notified Dr Aguilar that pt had 2 loose bowel movements today. Received order to hold Ayden carolina.
[2018-08-31 19:56] VITALS: BP 128/73
[2018-08-31] MEDS: POLYETHYLENE GLYCOL 3350 17 GM POWD.PACK GT SCH (21:34)
[2018-09-01] MEDS: ALBUTEROL FS 2.5 MG/3 ML VIAL.NEB NEB SCH ×4 (01:30→20:11)
[2018-09-01] MEDS: POLYVINYL ALCOHOL 15 ML BOTTLE EACHEYE SCH ×3 (06:11→18:18)
[2018-09-01] MEDS: MYCOPHENOLATE MOFETIL SUSP 500 MG/2.5 ML UDC GT SCH ×2 (06:12→18:18)
[2018-09-01] MEDS: CHLORHEXIDINE GLUCONATE 15 ML UDC MM SCH ×2 (06:12→18:18)
[2018-09-01 08:00] VITALS: BP 118/68
[2018-09-01] MEDS: HYDROGEN PEROXIDE 480 ML BOTTLE TP SCH ×2 (09:00→21:09)
[2018-09-01] MEDS: Z GUARD REMEDY 4 OZ OINT TP SCH ×6 (09:00→21:10)
[2018-09-01] MEDS: FOLIC ACID 1 MG TABLET GT SCH ×2 (09:13→16:52)
[2018-09-01] MEDS: LEVETIRACETAM SOL (5 ML) 100 MG/ML UDC GT SCH ×2 (09:14→21:08)
[2018-09-01] MEDS: SENNOSIDES 8.6 MG TABLET GT SCH ×2 (09:14→21:08)
[2018-09-01] MEDS: BACLOFEN (10 MG) 10 MG TABLET GT SCH ×3 (09:14→16:52)
[2018-09-01] MEDS: predniSONE 10 MG TABLET GT SCH (09:14)
[2018-09-01] MEDS: SERTRALINE HCL 25 MG TABLET GT SCH (09:15)
[2018-09-01] MEDS: HEPARIN SODIUM, PORCINE 5000 UNITS/1 ML VIAL SQ SCH ×2 (09:16→21:09)
[2018-09-01] MEDS: JEVITY 1.2 CAL 1,000 ML BOTTLE GT PRN (12:14)
--- NOTE | 2018-09-01 14:00 | NUR ---
Seen and examined by Sugar Spangler NP NNO given.
[2018-09-01 20:28] VITALS: BP 106/69
[2018-09-01] MEDS: POLYETHYLENE GLYCOL 3350 17 GM POWD.PACK GT SCH (21:10)
[2018-09-02] MEDS: POLYVINYL ALCOHOL 15 ML BOTTLE EACHEYE SCH ×5 (00:14→23:38)
[2018-09-02] MEDS: ALBUTEROL FS 2.5 MG/3 ML VIAL.NEB NEB SCH ×4 (01:30→20:04)
[2018-09-02] MEDS: JEVITY 1.2 CAL 1,000 ML BOTTLE GT PRN ×2 (02:30→18:39)
[2018-09-02] MEDS: CHLORHEXIDINE GLUCONATE 15 ML UDC MM SCH ×2 (05:23→18:39)
[2018-09-02] MEDS: MYCOPHENOLATE MOFETIL SUSP 500 MG/2.5 ML UDC GT SCH ×2 (05:23→18:39)
[2018-09-02 07:43] VITALS: BP 129/70
[2018-09-02] MEDS: Z GUARD REMEDY 4 OZ OINT TP SCH ×6 (08:31→21:36)
[2018-09-02] MEDS: SENNOSIDES 8.6 MG TABLET GT SCH ×2 (08:31→21:35)
[2018-09-02] MEDS: HEPARIN SODIUM, PORCINE 5000 UNITS/1 ML VIAL SQ SCH ×2 (08:31→21:36)
[2018-09-02] MEDS: HYDROGEN PEROXIDE 480 ML BOTTLE TP SCH ×2 (08:31→21:36)
[2018-09-02] MEDS: LEVETIRACETAM SOL (5 ML) 100 MG/ML UDC GT SCH ×2 (08:31→21:35)
[2018-09-02] MEDS: SERTRALINE HCL 25 MG TABLET GT SCH (08:31)
[2018-09-02] MEDS: BACLOFEN (10 MG) 10 MG TABLET GT SCH ×3 (08:31→17:00)
[2018-09-02] MEDS: FOLIC ACID 1 MG TABLET GT SCH ×2 (08:31→17:00)
[2018-09-02 20:09] VITALS: BP 116/88
[2018-09-02] MEDS: POLYETHYLENE GLYCOL 3350 17 GM POWD.PACK GT SCH (21:36)
--- NOTE | 2018-09-02 21:49 | NUR ---
RT NOTE PATIENT WAS RECEIVED ON 28% COOL AEROSOL. HHN INLINE TREATMENT WAS GIVEN ,NO ADVERSE REACTION NOTED. PRN SUCTION WAS DONE. TRACH TUBE PATENT AND SECURED. AMBUBAG AND SPARE TRACH AT BED SIDE. NO RESPIRATORY DISTRESS NOTED AT THIS TIME.WILL CONTINUE TO MONITOR PATIENT. Addendum: 09/02/18 at 2149 by ELIAZAR GOMES RT Amended: Links added.
[2018-09-03] MEDS: ALBUTEROL FS 2.5 MG/3 ML VIAL.NEB NEB SCH ×4 (01:34→20:09)
[2018-09-03] MEDS: MYCOPHENOLATE MOFETIL SUSP 500 MG/2.5 ML UDC GT SCH ×2 (05:37→17:58)
[2018-09-03] MEDS: POLYVINYL ALCOHOL 15 ML BOTTLE EACHEYE SCH ×3 (05:37→17:58)
[2018-09-03] MEDS: CHLORHEXIDINE GLUCONATE 15 ML UDC MM SCH ×2 (05:37→17:58)
[2018-09-03] MEDS: JEVITY 1.2 CAL 1,000 ML BOTTLE GT PRN (06:44)
[2018-09-03 07:47] VITALS: BP 121/74
[2018-09-03] MEDS: HEPARIN SODIUM, PORCINE 5000 UNITS/1 ML VIAL SQ SCH ×2 (09:00→21:10)
[2018-09-03] MEDS: BACLOFEN (10 MG) 10 MG TABLET GT SCH ×3 (09:07→17:58)
[2018-09-03] MEDS: SERTRALINE HCL 25 MG TABLET GT SCH (09:07)
[2018-09-03] MEDS: Z GUARD REMEDY 4 OZ OINT TP SCH ×6 (09:07→21:10)
[2018-09-03] MEDS: SENNOSIDES 8.6 MG TABLET GT SCH ×2 (09:07→21:09)
[2018-09-03] MEDS: HYDROGEN PEROXIDE 480 ML BOTTLE TP SCH ×2 (09:07→21:10)
[2018-09-03] MEDS: LEVETIRACETAM SOL (5 ML) 100 MG/ML UDC GT SCH ×2 (09:07→21:09)
[2018-09-03] MEDS: FOLIC ACID 1 MG TABLET GT SCH ×2 (09:07→17:58)
[2018-09-03 19:50] VITALS: BP 114/59
[2018-09-03] MEDS: POLYETHYLENE GLYCOL 3350 17 GM POWD.PACK GT SCH (21:11)
[2018-09-04] MEDS: POLYVINYL ALCOHOL 15 ML BOTTLE EACHEYE SCH ×4 (00:09→17:17)
[2018-09-04] MEDS: ALBUTEROL FS 2.5 MG/3 ML VIAL.NEB NEB SCH ×4 (02:14→19:30)
[2018-09-04] MEDS: MYCOPHENOLATE MOFETIL SUSP 500 MG/2.5 ML UDC GT SCH ×2 (05:43→17:17)
[2018-09-04] MEDS: CHLORHEXIDINE GLUCONATE 15 ML UDC MM SCH ×2 (05:43→17:17)
[2018-09-04 08:55] VITALS: BP 111/70
[2018-09-04] MEDS: SERTRALINE HCL 25 MG TABLET GT SCH (09:56)
[2018-09-04] MEDS: SENNOSIDES 8.6 MG TABLET GT SCH ×3 (09:56→21:24)
[2018-09-04] MEDS: FOLIC ACID 1 MG TABLET GT SCH ×2 (09:56→17:17)
[2018-09-04] MEDS: BACLOFEN (10 MG) 10 MG TABLET GT SCH ×3 (09:56→17:17)
[2018-09-04] MEDS: Z GUARD REMEDY 4 OZ OINT TP SCH ×6 (09:56→21:25)
[2018-09-04] MEDS: LEVETIRACETAM SOL (5 ML) 100 MG/ML UDC GT SCH ×2 (09:56→21:24)
[2018-09-04] MEDS: HEPARIN SODIUM, PORCINE 5000 UNITS/1 ML VIAL SQ SCH ×2 (09:56→21:24)
[2018-09-04] MEDS: HYDROGEN PEROXIDE 480 ML BOTTLE TP SCH ×2 (09:56→21:24)
[2018-09-04] MEDS: JEVITY 1.2 CAL 1,000 ML BOTTLE GT PRN (13:32)
--- NOTE | 2018-09-04 15:32 | NUR ---
Seen and examined by Dr. Jeff dsouza.
[2018-09-04 19:30] VITALS: BP 125/64
[2018-09-04] MEDS: POLYETHYLENE GLYCOL 3350 17 GM POWD.PACK GT SCH ×2 (21:25→22:00)
[2018-09-05] MEDS: ALBUTEROL FS 2.5 MG/3 ML VIAL.NEB NEB SCH ×4 (02:25→20:11)
[2018-09-05] MEDS: JEVITY 1.2 CAL 1,000 ML BOTTLE GT PRN ×2 (03:30→16:28)
[2018-09-05] MEDS: POLYVINYL ALCOHOL 15 ML BOTTLE EACHEYE SCH ×4 (06:03→17:01)
[2018-09-05] MEDS: MYCOPHENOLATE MOFETIL SUSP 500 MG/2.5 ML UDC GT SCH ×2 (06:03→17:01)
[2018-09-05] MEDS: CHLORHEXIDINE GLUCONATE 15 ML UDC MM SCH ×2 (06:03→17:01)
[2018-09-05] MEDS: BACLOFEN (10 MG) 10 MG TABLET GT SCH ×3 (09:36→16:32)
[2018-09-05] MEDS: SERTRALINE HCL 25 MG TABLET GT SCH (09:36)
[2018-09-05] MEDS: SENNOSIDES 8.6 MG TABLET GT SCH ×2 (09:36→21:11)
[2018-09-05] MEDS: LEVETIRACETAM SOL (5 ML) 100 MG/ML UDC GT SCH ×2 (09:36→21:11)
[2018-09-05] MEDS: FOLIC ACID 1 MG TABLET GT SCH ×2 (09:36→16:32)
[2018-09-05] MEDS: HYDROGEN PEROXIDE 480 ML BOTTLE TP SCH ×2 (09:37→21:12)
[2018-09-05] MEDS: HEPARIN SODIUM, PORCINE 5000 UNITS/1 ML VIAL SQ SCH ×2 (09:37→21:11)
[2018-09-05] MEDS: Z GUARD REMEDY 4 OZ OINT TP SCH ×6 (09:37→21:12)
[2018-09-05 11:00] VITALS: BP 110/76
[2018-09-05 19:38] VITALS: BP 107/67
[2018-09-05] MEDS: POLYETHYLENE GLYCOL 3350 17 GM POWD.PACK GT SCH (21:12)
[2018-09-06] MEDS: ALBUTEROL FS 2.5 MG/3 ML VIAL.NEB NEB SCH ×4 (01:36→19:24)
[2018-09-06] MEDS: POLYVINYL ALCOHOL 15 ML BOTTLE EACHEYE SCH ×5 (05:39→23:20)
[2018-09-06] MEDS: MYCOPHENOLATE MOFETIL SUSP 500 MG/2.5 ML UDC GT SCH ×2 (05:39→17:51)
[2018-09-06] MEDS: CHLORHEXIDINE GLUCONATE 15 ML UDC MM SCH ×2 (05:39→17:51)
[2018-09-06] MEDS: FOLIC ACID 1 MG TABLET GT SCH ×2 (08:59→17:11)
[2018-09-06] MEDS: BACLOFEN (10 MG) 10 MG TABLET GT SCH ×3 (08:59→17:11)
[2018-09-06] MEDS: LEVETIRACETAM SOL (5 ML) 100 MG/ML UDC GT SCH ×2 (08:59→21:10)
[2018-09-06] MEDS: SERTRALINE HCL 25 MG TABLET GT SCH (08:59)
[2018-09-06] MEDS: SENNOSIDES 8.6 MG TABLET GT SCH ×2 (08:59→21:10)
[2018-09-06] MEDS: HEPARIN SODIUM, PORCINE 5000 UNITS/1 ML VIAL SQ SCH ×2 (08:59→21:11)
[2018-09-06] MEDS: HYDROGEN PEROXIDE 480 ML BOTTLE TP SCH ×2 (09:00→21:11)
[2018-09-06] MEDS: Z GUARD REMEDY 4 OZ OINT TP SCH ×6 (09:01→21:11)
[2018-09-06 09:34] VITALS: BP 121/71
[2018-09-06 20:02] VITALS: BP 127/75
[2018-09-06] MEDS: POLYETHYLENE GLYCOL 3350 17 GM POWD.PACK GT SCH (21:11)
[2018-09-07] MEDS: ALBUTEROL FS 2.5 MG/3 ML VIAL.NEB NEB SCH ×4 (01:03→19:33)
[2018-09-07] MEDS: CHLORHEXIDINE GLUCONATE 15 ML UDC MM SCH ×2 (05:46→17:57)
[2018-09-07] MEDS: POLYVINYL ALCOHOL 15 ML BOTTLE EACHEYE SCH ×4 (05:46→23:38)
[2018-09-07] MEDS: MYCOPHENOLATE MOFETIL SUSP 500 MG/2.5 ML UDC GT SCH ×2 (05:46→17:57)
[2018-09-07 07:36] VITALS: BP 113/69
--- NOTE | 2018-09-07 09:00 | NUR ---
Seen and examined by Dr. Lubin, no new order given.
[2018-09-07] MEDS: SERTRALINE HCL 25 MG TABLET GT SCH (09:22)
[2018-09-07] MEDS: FOLIC ACID 1 MG TABLET GT SCH ×2 (09:22→17:03)
[2018-09-07] MEDS: LEVETIRACETAM SOL (5 ML) 100 MG/ML UDC GT SCH ×2 (09:22→21:13)
[2018-09-07] MEDS: SENNOSIDES 8.6 MG TABLET GT SCH ×2 (09:22→21:13)
[2018-09-07] MEDS: BACLOFEN (10 MG) 10 MG TABLET GT SCH ×3 (09:22→17:03)
[2018-09-07] MEDS: HEPARIN SODIUM, PORCINE 5000 UNITS/1 ML VIAL SQ SCH ×2 (09:23→21:13)
[2018-09-07] MEDS: HYDROGEN PEROXIDE 480 ML BOTTLE TP SCH ×2 (09:24→21:13)
[2018-09-07] MEDS: Z GUARD REMEDY 4 OZ OINT TP SCH ×6 (09:24→21:14)
[2018-09-07] MEDS: JEVITY 1.2 CAL 1,000 ML BOTTLE GT PRN (17:57)
[2018-09-07 20:20] VITALS: BP 100/56
[2018-09-07] MEDS: POLYETHYLENE GLYCOL 3350 17 GM POWD.PACK GT SCH (21:14)
[2018-09-08] MEDS: ALBUTEROL FS 2.5 MG/3 ML VIAL.NEB NEB SCH ×4 (01:38→19:30)
[2018-09-08] MEDS: POLYVINYL ALCOHOL 15 ML BOTTLE EACHEYE SCH ×4 (05:50→23:28)
[2018-09-08] MEDS: CHLORHEXIDINE GLUCONATE 15 ML UDC MM SCH ×2 (05:50→17:01)
[2018-09-08] MEDS: MYCOPHENOLATE MOFETIL SUSP 500 MG/2.5 ML UDC GT SCH ×2 (05:50→17:00)
[2018-09-08 07:42] VITALS: BP 124/68
[2018-09-08] MEDS: FOLIC ACID 1 MG TABLET GT SCH ×2 (08:02→17:00)
[2018-09-08] MEDS: SENNOSIDES 8.6 MG TABLET GT SCH ×2 (08:02→21:46)
[2018-09-08] MEDS: LEVETIRACETAM SOL (5 ML) 100 MG/ML UDC GT SCH ×2 (08:02→21:46)
[2018-09-08] MEDS: SERTRALINE HCL 25 MG TABLET GT SCH (08:02)
[2018-09-08] MEDS: BACLOFEN (10 MG) 10 MG TABLET GT SCH ×3 (08:02→17:00)
[2018-09-08] MEDS: HEPARIN SODIUM, PORCINE 5000 UNITS/1 ML VIAL SQ SCH ×2 (08:04→21:47)
[2018-09-08] MEDS: HYDROGEN PEROXIDE 480 ML BOTTLE TP SCH ×2 (09:00→21:47)
[2018-09-08] MEDS: Z GUARD REMEDY 4 OZ OINT TP SCH ×6 (09:00→21:47)
[2018-09-08] MEDS: JEVITY 1.2 CAL 1,000 ML BOTTLE GT PRN (17:01)
[2018-09-08 19:48] VITALS: BP 119/69
--- NOTE | 2018-09-08 20:43 | NUR ---
RECEIVED TRACH PT ON COOL AEROSOL. AMBU BAG AND BACK UP TRACH @ BEDSIDE. Q6 BREATHING TX GIVEN PER MD ORDERS WITH NO ADVERSE REACTION NOTED. SX DONE PRN. TRACH PATENT AND SECURED. NO RESP DISTRESS NOTED AT THIS TIME. WILL CONTINUE TO MONITOR PT.
[2018-09-08] MEDS: POLYETHYLENE GLYCOL 3350 17 GM POWD.PACK GT SCH (22:56)
[2018-09-09] MEDS: ALBUTEROL FS 2.5 MG/3 ML VIAL.NEB NEB SCH ×4 (01:50→19:58)
[2018-09-09] MEDS: CHLORHEXIDINE GLUCONATE 15 ML UDC MM SCH ×2 (05:24→17:02)
[2018-09-09] MEDS: POLYVINYL ALCOHOL 15 ML BOTTLE EACHEYE SCH ×4 (05:24→23:16)
[2018-09-09] MEDS: MYCOPHENOLATE MOFETIL SUSP 500 MG/2.5 ML UDC GT SCH ×2 (05:24→17:02)
[2018-09-09] MEDS: BACLOFEN (10 MG) 10 MG TABLET GT SCH ×3 (08:52→17:01)
[2018-09-09] MEDS: LEVETIRACETAM SOL (5 ML) 100 MG/ML UDC GT SCH ×2 (08:52→21:00)
[2018-09-09] MEDS: SENNOSIDES 8.6 MG TABLET GT SCH ×2 (08:52→21:00)
[2018-09-09] MEDS: FOLIC ACID 1 MG TABLET GT SCH ×2 (08:52→17:01)
[2018-09-09] MEDS: SERTRALINE HCL 25 MG TABLET GT SCH (08:52)
[2018-09-09] MEDS: HYDROGEN PEROXIDE 480 ML BOTTLE TP SCH ×2 (08:53→21:00)
[2018-09-09] MEDS: HEPARIN SODIUM, PORCINE 5000 UNITS/1 ML VIAL SQ SCH ×2 (08:53→21:00)
[2018-09-09] MEDS: Z GUARD REMEDY 4 OZ OINT TP SCH ×6 (08:53→21:00)
[2018-09-09 10:40] VITALS: BP 108/58
[2018-09-09] MEDS: JEVITY 1.2 CAL 1,000 ML BOTTLE GT PRN ×2 (11:51→23:17)
[2018-09-09 19:53] VITALS: BP 116/73
--- NOTE | 2018-09-09 21:24 | NUR ---
RT NOTE PATIENT WAS RECEIVED ON 28% COOL AEROSOL. HHN INLINE TREATMENT WAS GIVEN ,NO ADVERSE REACTION NOTED. PRN SUCTION WAS DONE. TRACH TUBE PATENT AND SECURED. AMBUBAG AND SPARE TRACH AT BED SIDE. NO RESPIRATORY DISTRESS NOTED AT THIS TIME.WILL CONTINUE TO MONITOR PATIENT. Addendum: 09/09/18 at 2124 by ELIAZAR GOMES RT Amended: Links added.
[2018-09-09] MEDS: POLYETHYLENE GLYCOL 3350 17 GM POWD.PACK GT SCH (22:19)
[2018-09-10] MEDS: ALBUTEROL FS 2.5 MG/3 ML VIAL.NEB NEB SCH ×4 (01:39→19:38)
[2018-09-10] MEDS: MYCOPHENOLATE MOFETIL SUSP 500 MG/2.5 ML UDC GT SCH ×2 (05:49→17:20)
[2018-09-10] MEDS: CHLORHEXIDINE GLUCONATE 15 ML UDC MM SCH ×2 (05:49→17:20)
[2018-09-10] MEDS: POLYVINYL ALCOHOL 15 ML BOTTLE EACHEYE SCH ×4 (05:49→23:44)
[2018-09-10 08:02] VITALS: BP 124/65
--- NOTE | 2018-09-10 08:12 | NUR ---
Seen and examined by Dr. Aguilar, he said that patient can be transferred to acute hospital on Thursday for follow-up administration of Rituxan. Orders carried out.
[2018-09-10] MEDS: LEVETIRACETAM SOL (5 ML) 100 MG/ML UDC GT SCH ×2 (09:00→21:35)
[2018-09-10] MEDS: HEPARIN SODIUM, PORCINE 5000 UNITS/1 ML VIAL SQ SCH ×2 (09:00→21:36)
[2018-09-10] MEDS: SENNOSIDES 8.6 MG TABLET GT SCH ×2 (09:00→21:35)
[2018-09-10] MEDS: HYDROGEN PEROXIDE 480 ML BOTTLE TP SCH ×2 (09:00→21:36)
[2018-09-10] MEDS: BACLOFEN (10 MG) 10 MG TABLET GT SCH ×3 (09:00→17:20)
[2018-09-10] MEDS: FOLIC ACID 1 MG TABLET GT SCH ×2 (09:00→17:20)
[2018-09-10] MEDS: SERTRALINE HCL 25 MG TABLET GT SCH (09:00)
[2018-09-10] MEDS: Z GUARD REMEDY 4 OZ OINT TP SCH ×6 (09:00→21:36)
--- NOTE | 2018-09-10 17:10 | NUR ---
According to Prince from [facility] pharmacy, medication Rituxan should be ordered first before sending patient to the acute side. He placed order to [facility] but requesting an updated insurance information ). Endorsed to have business office call [facility] order on Thursday with regards to patient's insurance. Nursing lunchroom food service supervisor informed of the planned transfer for Rituxan administration.
[2018-09-10] MEDS: JEVITY 1.2 CAL 1,000 ML BOTTLE GT PRN (17:20)
[2018-09-10 20:01] VITALS: BP 131/75
[2018-09-10] MEDS: ACETAMINOPHEN 650 MG/20 ML UDC- SA PATIENTS-PAIN ONLY GT PRN (20:30)
--- NOTE | 2018-09-10 20:30 | NUR ---
Noted pt with temp of 100.9 axilla, with discomfort/ mild pain 3/10 noted. Cooling measure initiated, PRN tylenol 650 mg given via G tube as per MD's order. Suctioned and repositioned for comfort. Will closely monitor.
--- NOTE | 2018-09-10 21:30 | NUR ---
Tylenol effective, temp of 99.7 noted, No sign of distress and discomfort noted at this time.Cooling measures continue.
[2018-09-10] MEDS: POLYETHYLENE GLYCOL 3350 17 GM POWD.PACK GT SCH (21:36)
[2018-09-11] MEDS: ALBUTEROL FS 2.5 MG/3 ML VIAL.NEB NEB SCH ×4 (01:20→19:42)
[2018-09-11] MEDS: POLYVINYL ALCOHOL 15 ML BOTTLE EACHEYE SCH ×4 (05:27→23:54)
[2018-09-11] MEDS: CHLORHEXIDINE GLUCONATE 15 ML UDC MM SCH ×2 (05:27→17:58)
[2018-09-11] MEDS: MYCOPHENOLATE MOFETIL SUSP 500 MG/2.5 ML UDC GT SCH ×2 (05:27→17:58)
[2018-09-11 07:40] VITALS: BP 121/70
[2018-09-11] MEDS: HEPARIN SODIUM, PORCINE 5000 UNITS/1 ML VIAL SQ SCH ×2 (08:58→21:05)
[2018-09-11] MEDS: Z GUARD REMEDY 4 OZ OINT TP SCH ×6 (09:09→21:05)
[2018-09-11] MEDS: SENNOSIDES 8.6 MG TABLET GT SCH ×2 (09:09→21:04)
[2018-09-11] MEDS: LEVETIRACETAM SOL (5 ML) 100 MG/ML UDC GT SCH ×2 (09:09→21:04)
[2018-09-11] MEDS: SERTRALINE HCL 25 MG TABLET GT SCH (09:09)
[2018-09-11] MEDS: FOLIC ACID 1 MG TABLET GT SCH ×2 (09:09→17:57)
[2018-09-11] MEDS: BACLOFEN (10 MG) 10 MG TABLET GT SCH ×3 (09:09→17:57)
[2018-09-11] MEDS: HYDROGEN PEROXIDE 480 ML BOTTLE TP SCH ×2 (09:09→21:05)
[2018-09-11 17:12] VITALS: BP 125/65
--- NOTE | 2018-09-11 17:46 | NUR ---
Notified Dr. Aguilar of elevated temperature 101.3 Ax., 145/63, 82,100% O2 sat, RR 20, patient has been running low grade temp. cooling measures provided. 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 He said to monitor patient's temperature for now and he will be in tomorrow, with regards to Rituxan administration he thinks that it should be delay for now. Resident's father at bedside and made aware of patient's condition and plan to transfer patient to acute for Rituxan administration sometime next week when medication is available and when patient is stable. Appreciated the information given.
[2018-09-11 20:26] VITALS: BP 106/70
[2018-09-11] MEDS: POLYETHYLENE GLYCOL 3350 17 GM POWD.PACK GT SCH (21:05)
[2018-09-11] MEDS: JEVITY 1.2 CAL 1,000 ML BOTTLE GT PRN (21:09)
[2018-09-12] MEDS: ALBUTEROL FS 2.5 MG/3 ML VIAL.NEB NEB SCH ×4 (01:42→19:49)
[2018-09-12] MEDS: MYCOPHENOLATE MOFETIL SUSP 500 MG/2.5 ML UDC GT SCH ×2 (05:26→17:40)
[2018-09-12] MEDS: POLYVINYL ALCOHOL 15 ML BOTTLE EACHEYE SCH ×3 (05:26→17:40)
[2018-09-12] MEDS: CHLORHEXIDINE GLUCONATE 15 ML UDC MM SCH ×2 (05:26→17:40)
[2018-09-12 07:44] VITALS: BP 112/71
[2018-09-12] MEDS: BACLOFEN (10 MG) 10 MG TABLET GT SCH ×3 (09:18→17:40)
[2018-09-12] MEDS: FOLIC ACID 1 MG TABLET GT SCH ×2 (09:18→17:40)
[2018-09-12] MEDS: SERTRALINE HCL 25 MG TABLET GT SCH (09:18)
[2018-09-12] MEDS: SENNOSIDES 8.6 MG TABLET GT SCH ×2 (09:18→21:13)
[2018-09-12] MEDS: LEVETIRACETAM SOL (5 ML) 100 MG/ML UDC GT SCH ×2 (09:18→21:13)
[2018-09-12] MEDS: HEPARIN SODIUM, PORCINE 5000 UNITS/1 ML VIAL SQ SCH ×2 (09:19→21:14)
[2018-09-12] MEDS: HYDROGEN PEROXIDE 480 ML BOTTLE TP SCH ×2 (09:19→21:14)
[2018-09-12] MEDS: Z GUARD REMEDY 4 OZ OINT TP SCH ×6 (09:19→21:14)
[2018-09-12 12:58] VITALS: BP 118/70
--- NOTE | 2018-09-12 14:54 | NUR ---
Resident seen and examined by Dr. Aguilar without new order given. Will continue to monitor temp. curve for now.
[2018-09-12] MEDS: JEVITY 1.2 CAL 1,000 ML BOTTLE GT PRN (15:09)
--- NOTE | 2018-09-12 18:35 | NUR ---
Dr. Aguilar gave order to do UA C&S, specimen collected and CBC in AM.
[2018-09-12 19:29] VITALS: BP 110/63
[2018-09-12] MEDS: POLYETHYLENE GLYCOL 3350 17 GM POWD.PACK GT SCH (21:14)
--- NOTE | 2018-09-12 21:31 | NUR ---
RT NOTE PATIENT WAS RECEIVED ON 28% COOL AEROSOL. HHN INLINE TREATMENT WAS GIVEN ,NO ADVERSE REACTION NOTED. PRN SUCTION WAS DONE. TRACH TUBE PATENT AND SECURED. AMBUBAG AND SPARE TRACH AT BED SIDE. NO RESPIRATORY DISTRESS NOTED AT THIS TIME.WILL CONTINUE TO MONITOR PATIENT. Addendum: 09/12/18 at 2132 by ELIAZAR GOMES RT Amended: Links added.
[2018-09-12 23:18] LABS: APPEARANCE,URINE CLEAR (CLEAR); BILIRUBIN,URINE NEGATIVE (NEGATIVE); BLOOD, URINE 3+ Ery/uL (NEGATIVE); COLOR,URINE YELLOW (YELLOW); KETONES,URINE NEGATIVE (NEGATIVE); LEUKOCYTE ESTERASE ,URINE 3+ (NEGATIVE); NITRITE, URINE NEGATIVE (NEGATIVE); PH,URINE 6.5 (5.0-8.0); PROTEIN,URINE 2+ mg/dl (NEGATIVE); UGLUCOSE NEGATIVE (NEGATIVE); UROBILINOGEN,URINE 0.2 EU/dL (0.2)
[2018-09-13 00:05] LABS: BACTERIA,URINE Moderate /HPF (None Seen); SQUAMOUS EPITHELIAL CELL,UR Few /HPF (None Seen); WBC,URINE 81-100 /HPF (0-3)
[2018-09-13] MEDS: POLYVINYL ALCOHOL 15 ML BOTTLE EACHEYE SCH ×5 (00:09→23:22)
[2018-09-13] MEDS: ALBUTEROL FS 2.5 MG/3 ML VIAL.NEB NEB SCH ×4 (01:44→20:17)
[2018-09-13] MEDS: CHLORHEXIDINE GLUCONATE 15 ML UDC MM SCH ×2 (05:46→17:10)
[2018-09-13] MEDS: MYCOPHENOLATE MOFETIL SUSP 500 MG/2.5 ML UDC GT SCH ×2 (05:46→17:10)
[2018-09-13 07:41] LABS: BASOPHILS % (AUTO) 0.5 % (0.0-2.0); EOSINOPHILS % (AUTO) 2.2 % (0.0-6.0); HEMATOCRIT 33 % (33-45); HEMOGLOBIN 10.7 g/dL (11.5-14.8); LYMPHOCYTES # (AUTO) 1.5 /CMM (0.8-4.8); LYMPHOCYTES % (AUTO) 25.2 % (20.0-44.0); MEAN CORPUSCULAR HGB CONC 33 g/dl (31.0-36.0); MEAN CORPUSCULAR VOLUME 85 fL (82-100); MONOCYTES # (AUTO) 0.7 /CMM (0.1-1.30); MONOCYTES % (AUTO) 12.2 % (2.0-12.0); NEUTROPHILS # (AUTO) 3.6 /CMM (1.8-8.9); NEUTROPHILS % (AUTO) 59.9 % (43.0-81.0); PLATELET COUNT (AUTO) 446 /CMM (150-450); RED BLOOD CELL COUNT(AUTO) 3.86 MIL/uL (4.0-5.2)
[2018-09-13 07:52] VITALS: BP 113/77
--- NOTE | 2018-09-13 08:56 | NUR ---
HILTON called pharmacy ([phone]) to update patient's insurance information
[2018-09-13] MEDS: SERTRALINE HCL 25 MG TABLET GT SCH (09:29)
[2018-09-13] MEDS: SENNOSIDES 8.6 MG TABLET GT SCH ×2 (09:29→21:17)
[2018-09-13] MEDS: BACLOFEN (10 MG) 10 MG TABLET GT SCH ×3 (09:29→17:10)
[2018-09-13] MEDS: LEVETIRACETAM SOL (5 ML) 100 MG/ML UDC GT SCH ×2 (09:29→21:17)
[2018-09-13] MEDS: FOLIC ACID 1 MG TABLET GT SCH ×2 (09:29→17:10)
[2018-09-13] MEDS: HYDROGEN PEROXIDE 480 ML BOTTLE TP SCH ×2 (09:30→21:18)
[2018-09-13] MEDS: HEPARIN SODIUM, PORCINE 5000 UNITS/1 ML VIAL SQ SCH ×2 (09:30→21:18)
[2018-09-13] MEDS: Z GUARD REMEDY 4 OZ OINT TP SCH ×6 (09:30→21:18)
--- NOTE | 2018-09-13 17:30 | NUR ---
Relayed CBC and UA results to Dr Aguilar. Also notified him that pt had a temp of 100 F. Pt's father aware.
[2018-09-13] MEDS: JEVITY 1.2 CAL 1,000 ML BOTTLE GT PRN (18:10)
[2018-09-13 19:47] VITALS: BP 127/73
[2018-09-13] MEDS: POLYETHYLENE GLYCOL 3350 17 GM POWD.PACK GT SCH (21:19)
[2018-09-14] MEDS: ALBUTEROL FS 2.5 MG/3 ML VIAL.NEB NEB SCH ×4 (01:39→19:30)
[2018-09-14] MEDS: CHLORHEXIDINE GLUCONATE 15 ML UDC MM SCH ×2 (05:54→17:39)
[2018-09-14] MEDS: MYCOPHENOLATE MOFETIL SUSP 500 MG/2.5 ML UDC GT SCH ×2 (05:54→17:39)
[2018-09-14] MEDS: POLYVINYL ALCOHOL 15 ML BOTTLE EACHEYE SCH ×4 (05:54→23:37)
[2018-09-14 07:46] VITALS: BP 116/62
--- NOTE | 2018-09-14 08:30 | NUR ---
Seen and examined by Dr. Aguilar, informed about on and off low grade temp. he said to continue to monitor.
[2018-09-14] MEDS: SENNOSIDES 8.6 MG TABLET GT SCH ×2 (09:10→21:16)
[2018-09-14] MEDS: FOLIC ACID 1 MG TABLET GT SCH ×2 (09:10→16:43)
[2018-09-14] MEDS: LEVETIRACETAM SOL (5 ML) 100 MG/ML UDC GT SCH ×2 (09:10→21:16)
[2018-09-14] MEDS: SERTRALINE HCL 25 MG TABLET GT SCH (09:10)
[2018-09-14] MEDS: BACLOFEN (10 MG) 10 MG TABLET GT SCH ×3 (09:10→16:43)
[2018-09-14] MEDS: HYDROGEN PEROXIDE 480 ML BOTTLE TP SCH ×2 (09:13→21:16)
[2018-09-14] MEDS: HEPARIN SODIUM, PORCINE 5000 UNITS/1 ML VIAL SQ SCH ×2 (09:13→21:16)
[2018-09-14] MEDS: Z GUARD REMEDY 4 OZ OINT TP SCH ×5 (09:13→21:17)
--- NOTE | 2018-09-14 09:30 | NUR ---
Seen and examined by Dr. Lubin, no new order given.
[2018-09-14] MEDS: JEVITY 1.2 CAL 1,000 ML BOTTLE GT PRN (12:48)
[2018-09-14 20:31] VITALS: BP 113/62
[2018-09-14] MEDS: POLYETHYLENE GLYCOL 3350 17 GM POWD.PACK GT SCH (21:17)
[2018-09-15] MEDS: ALBUTEROL FS 2.5 MG/3 ML VIAL.NEB NEB SCH ×4 (02:09→20:05)
[2018-09-15] MEDS: MYCOPHENOLATE MOFETIL SUSP 500 MG/2.5 ML UDC GT SCH ×2 (06:10→18:00)
[2018-09-15] MEDS: POLYVINYL ALCOHOL 15 ML BOTTLE EACHEYE SCH ×3 (06:10→18:00)
[2018-09-15] MEDS: CHLORHEXIDINE GLUCONATE 15 ML UDC MM SCH ×2 (06:10→18:00)
[2018-09-15] MEDS: LEVETIRACETAM SOL (5 ML) 100 MG/ML UDC GT SCH ×2 (09:31→20:27)
[2018-09-15] MEDS: FOLIC ACID 1 MG TABLET GT SCH ×2 (09:31→17:00)
[2018-09-15] MEDS: BACLOFEN (10 MG) 10 MG TABLET GT SCH ×3 (09:31→17:00)
[2018-09-15] MEDS: SENNOSIDES 8.6 MG TABLET GT SCH ×2 (09:31→20:27)
[2018-09-15] MEDS: HEPARIN SODIUM, PORCINE 5000 UNITS/1 ML VIAL SQ SCH ×2 (09:31→20:27)
[2018-09-15] MEDS: SERTRALINE HCL 25 MG TABLET GT SCH (09:32)
[2018-09-15] MEDS: HYDROGEN PEROXIDE 480 ML BOTTLE TP SCH ×2 (09:32→20:28)
[2018-09-15] MEDS: Z GUARD REMEDY 4 OZ OINT TP SCH ×4 (09:32→20:27)
--- NOTE | 2018-09-15 15:06 | NUR ---
HILTON called the pharmacy again and spoke to Shilpa to follow up with patient's special medication RITUXAN as it has not been delivered ( as per sub-acute charge nurse). The person at the pharmacy told HILTON that it showed it was filled, and will call back HILTON.
[2018-09-15 21:05] VITALS: BP 107/62
[2018-09-15] MEDS: POLYETHYLENE GLYCOL 3350 17 GM POWD.PACK GT SCH (21:24)
[2018-09-16] MEDS: POLYVINYL ALCOHOL 15 ML BOTTLE EACHEYE SCH ×5 (00:31→23:44)
[2018-09-16] MEDS: ALBUTEROL FS 2.5 MG/3 ML VIAL.NEB NEB SCH ×4 (01:47→19:40)
[2018-09-16] MEDS: MYCOPHENOLATE MOFETIL SUSP 500 MG/2.5 ML UDC GT SCH ×2 (05:13→17:49)
[2018-09-16] MEDS: CHLORHEXIDINE GLUCONATE 15 ML UDC MM SCH ×2 (05:13→17:49)
[2018-09-16 07:49] VITALS: BP 108/66
[2018-09-16] MEDS: BACLOFEN (10 MG) 10 MG TABLET GT SCH ×3 (09:16→17:49)
[2018-09-16] MEDS: SENNOSIDES 8.6 MG TABLET GT SCH ×2 (09:16→20:24)
[2018-09-16] MEDS: LEVETIRACETAM SOL (5 ML) 100 MG/ML UDC GT SCH ×2 (09:16→20:24)
[2018-09-16] MEDS: FOLIC ACID 1 MG TABLET GT SCH ×2 (09:16→17:49)
[2018-09-16] MEDS: SERTRALINE HCL 25 MG TABLET GT SCH (09:16)
[2018-09-16] MEDS: HEPARIN SODIUM, PORCINE 5000 UNITS/1 ML VIAL SQ SCH ×2 (09:17→20:25)
[2018-09-16] MEDS: HYDROGEN PEROXIDE 480 ML BOTTLE TP SCH ×2 (09:17→20:24)
[2018-09-16] MEDS: Z GUARD REMEDY 4 OZ OINT TP SCH ×4 (09:17→20:24)
[2018-09-16] MEDS: JEVITY 1.2 CAL 1,000 ML BOTTLE GT PRN (12:36)
--- NOTE | 2018-09-16 20:00 | NUR ---
Seen by HA LUCERO.
[2018-09-16 20:37] VITALS: BP 104/73
[2018-09-16] MEDS: POLYETHYLENE GLYCOL 3350 17 GM POWD.PACK GT SCH (21:16)
[2018-09-17] MEDS: ALBUTEROL FS 2.5 MG/3 ML VIAL.NEB NEB SCH ×4 (01:30→19:56)
[2018-09-17] MEDS: MYCOPHENOLATE MOFETIL SUSP 500 MG/2.5 ML UDC GT SCH ×2 (05:26→18:42)
[2018-09-17] MEDS: CHLORHEXIDINE GLUCONATE 15 ML UDC MM SCH ×2 (05:26→18:42)
[2018-09-17] MEDS: POLYVINYL ALCOHOL 15 ML BOTTLE EACHEYE SCH ×3 (05:26→18:42)
[2018-09-17 07:50] VITALS: BP 108/62
[2018-09-17] MEDS: HEPARIN SODIUM, PORCINE 5000 UNITS/1 ML VIAL SQ SCH ×2 (09:00→22:46)
[2018-09-17] MEDS: HYDROGEN PEROXIDE 480 ML BOTTLE TP SCH ×2 (09:00→21:00)
[2018-09-17] MEDS: Z GUARD REMEDY 4 OZ OINT TP SCH ×4 (09:00→21:00)
[2018-09-17] MEDS: SERTRALINE HCL 25 MG TABLET GT SCH (09:26)
[2018-09-17] MEDS: FOLIC ACID 1 MG TABLET GT SCH ×2 (09:26→16:42)
[2018-09-17] MEDS: BACLOFEN (10 MG) 10 MG TABLET GT SCH ×3 (09:26→16:42)
[2018-09-17] MEDS: SENNOSIDES 8.6 MG TABLET GT SCH ×2 (09:27→21:00)
[2018-09-17] MEDS: LEVETIRACETAM SOL (5 ML) 100 MG/ML UDC GT SCH ×2 (09:27→21:00)
--- NOTE | 2018-09-17 09:35 | NUR ---
Seen and examined by HA Spangler, no new order given.
[2018-09-17] MEDS: JEVITY 1.2 CAL 1,000 ML BOTTLE GT PRN (11:07)
--- NOTE | 2018-09-17 12:36 | NUR ---
Left a message to Dr. Aguilar regarding urine culture result, Proteus Mirabilis 50,000 cfu/ml. Patient afebrile at 99.3. Awaiting for return call.
--- NOTE | 2018-09-17 13:00 | NUR ---
Dr. Aguilar responded that patient is colonized, no new order pertaining to urine culture result.
[2018-09-17 19:45] VITALS: BP 100/52
[2018-09-17] MEDS: POLYETHYLENE GLYCOL 3350 17 GM POWD.PACK GT SCH (22:44)
[2018-09-18] MEDS: ALBUTEROL FS 2.5 MG/3 ML VIAL.NEB NEB SCH ×4 (02:15→19:08)
[2018-09-18] MEDS: JEVITY 1.2 CAL 1,000 ML BOTTLE GT PRN ×2 (03:31→17:00)
[2018-09-18] MEDS: POLYVINYL ALCOHOL 15 ML BOTTLE EACHEYE SCH ×5 (05:46→23:41)
[2018-09-18] MEDS: MYCOPHENOLATE MOFETIL SUSP 500 MG/2.5 ML UDC GT SCH ×2 (05:46→17:56)
[2018-09-18] MEDS: CHLORHEXIDINE GLUCONATE 15 ML UDC MM SCH ×2 (05:47→17:56)
[2018-09-18 07:51] VITALS: BP 117/80
[2018-09-18] MEDS: HYDROGEN PEROXIDE 480 ML BOTTLE TP SCH ×2 (09:00→21:12)
[2018-09-18] MEDS: Z GUARD REMEDY 4 OZ OINT TP SCH ×4 (09:00→21:12)
[2018-09-18] MEDS: FOLIC ACID 1 MG TABLET GT SCH ×2 (09:17→16:59)
[2018-09-18] MEDS: SENNOSIDES 8.6 MG TABLET GT SCH ×2 (09:19→21:11)
[2018-09-18] MEDS: LEVETIRACETAM SOL (5 ML) 100 MG/ML UDC GT SCH ×2 (09:19→21:11)
[2018-09-18] MEDS: SERTRALINE HCL 25 MG TABLET GT SCH (09:19)
[2018-09-18] MEDS: BACLOFEN (10 MG) 10 MG TABLET GT SCH ×3 (09:19→16:59)
[2018-09-18] MEDS: HEPARIN SODIUM, PORCINE 5000 UNITS/1 ML VIAL SQ SCH ×2 (09:21→21:12)
[2018-09-18] MEDS: ACETAMINOPHEN 650 MG/20 ML UDC- SA PATIENTS-PAIN ONLY GT PRN (17:57)
[2018-09-18 19:51] VITALS: BP 116/63
[2018-09-18] MEDS: POLYETHYLENE GLYCOL 3350 17 GM POWD.PACK GT SCH (21:12)
--- NOTE | 2018-09-18 23:24 | NUR ---
PATIENT RECEIVED ON 28% AEROSOL T-TUBE, TOLERATING WITH NO DISTRESS. SUCTIONED FOR MINIMAL, THIN, YELLOW SECRETIONS. GIVEN IN-LINE TREATMENTS WITH NO ADVERSE REACTIONS. AMBU BAG AT BEDSIDE. IN-LINE TUBING, OLE MUÑIZ, DRAINAGE BAG CHANGED. Addendum: 09/18/18 at 2326 by JANAY CANCINO RT Amended: Links added.
[2018-09-19] MEDS: ALBUTEROL FS 2.5 MG/3 ML VIAL.NEB NEB SCH ×4 (00:35→19:57)
[2018-09-19] MEDS: CHLORHEXIDINE GLUCONATE 15 ML UDC MM SCH ×2 (05:10→18:08)
[2018-09-19] MEDS: POLYVINYL ALCOHOL 15 ML BOTTLE EACHEYE SCH ×4 (05:10→23:58)
[2018-09-19] MEDS: MYCOPHENOLATE MOFETIL SUSP 500 MG/2.5 ML UDC GT SCH ×2 (05:10→18:08)
[2018-09-19] MEDS: JEVITY 1.2 CAL 1,000 ML BOTTLE GT PRN ×2 (06:47→21:00)
[2018-09-19 09:00] VITALS: BP 133/76
[2018-09-19] MEDS: Z GUARD REMEDY 4 OZ OINT TP SCH ×4 (09:25→20:59)
[2018-09-19] MEDS: SERTRALINE HCL 25 MG TABLET GT SCH (09:25)
[2018-09-19] MEDS: HEPARIN SODIUM, PORCINE 5000 UNITS/1 ML VIAL SQ SCH ×2 (09:25→20:59)
[2018-09-19] MEDS: SENNOSIDES 8.6 MG TABLET GT SCH ×2 (09:25→20:57)
[2018-09-19] MEDS: HYDROGEN PEROXIDE 480 ML BOTTLE TP SCH ×2 (09:25→20:59)
[2018-09-19] MEDS: FOLIC ACID 1 MG TABLET GT SCH ×2 (09:25→17:14)
[2018-09-19] MEDS: BACLOFEN (10 MG) 10 MG TABLET GT SCH ×3 (09:25→17:14)
[2018-09-19] MEDS: LEVETIRACETAM SOL (5 ML) 100 MG/ML UDC GT SCH ×2 (09:25→20:57)
[2018-09-19 19:41] VITALS: BP 133/75
[2018-09-19] MEDS: POLYETHYLENE GLYCOL 3350 17 GM POWD.PACK GT SCH (21:00)
[2018-09-20] MEDS: ALBUTEROL FS 2.5 MG/3 ML VIAL.NEB NEB SCH ×4 (01:20→19:47)
[2018-09-20] MEDS: CHLORHEXIDINE GLUCONATE 15 ML UDC MM SCH ×2 (05:26→18:07)
[2018-09-20] MEDS: MYCOPHENOLATE MOFETIL SUSP 500 MG/2.5 ML UDC GT SCH ×2 (05:26→18:06)
[2018-09-20] MEDS: POLYVINYL ALCOHOL 15 ML BOTTLE EACHEYE SCH ×3 (05:26→18:06)
[2018-09-20 07:45] VITALS: BP 121/68
[2018-09-20] MEDS: BACLOFEN (10 MG) 10 MG TABLET GT SCH ×3 (09:13→16:33)
[2018-09-20] MEDS: SERTRALINE HCL 25 MG TABLET GT SCH (09:13)
[2018-09-20] MEDS: HYDROGEN PEROXIDE 480 ML BOTTLE TP SCH ×2 (09:13→20:43)
[2018-09-20] MEDS: SENNOSIDES 8.6 MG TABLET GT SCH ×2 (09:13→20:42)
[2018-09-20] MEDS: LEVETIRACETAM SOL (5 ML) 100 MG/ML UDC GT SCH ×2 (09:13→20:42)
[2018-09-20] MEDS: FOLIC ACID 1 MG TABLET GT SCH ×2 (09:13→16:33)
[2018-09-20] MEDS: HEPARIN SODIUM, PORCINE 5000 UNITS/1 ML VIAL SQ SCH ×2 (09:13→20:43)
[2018-09-20] MEDS: Z GUARD REMEDY 4 OZ OINT TP SCH ×4 (09:13→20:43)
[2018-09-20] MEDS: JEVITY 1.2 CAL 1,000 ML BOTTLE GT PRN (18:06)
[2018-09-20] MEDS: ACETAMINOPHEN 650 MG/20 ML UDC- SA PATIENTS-FEVER ONLY GT PRN (20:48)
--- NOTE | 2018-09-20 20:54 | NUR ---
noted 101.7 temp. pt calm. no s/s of discomfort. given prn 650 mg tylenol via gt. cooling measures rendered. will monitor closely.
[2018-09-20 21:47] VITALS: BP 125/75
--- NOTE | 2018-09-20 21:50 | NUR ---
tylenol effective. temp 99. no discomfort noted. will continue to monitor closely.
[2018-09-20] MEDS: POLYETHYLENE GLYCOL 3350 17 GM POWD.PACK GT SCH (22:01)
[2018-09-21] MEDS: POLYVINYL ALCOHOL 15 ML BOTTLE EACHEYE SCH ×4 (00:01→18:03)
[2018-09-21] MEDS: ALBUTEROL FS 2.5 MG/3 ML VIAL.NEB NEB SCH ×4 (01:40→20:27)
[2018-09-21] MEDS: CHLORHEXIDINE GLUCONATE 15 ML UDC MM SCH ×2 (06:11→18:03)
[2018-09-21] MEDS: MYCOPHENOLATE MOFETIL SUSP 500 MG/2.5 ML UDC GT SCH ×2 (06:11→18:03)
[2018-09-21] MEDS: JEVITY 1.2 CAL 1,000 ML BOTTLE GT PRN ×2 (06:22→18:03)
[2018-09-21 07:54] VITALS: BP 160/83
--- NOTE | 2018-09-21 07:55 | NUR ---
Seen by Dr Aguilar. Notified him that pt has a temp of 100.7 F. He ordered to give NS at 60 mL/hr x 72 hours. Asked him to call pt's father per his request. He said he will call him later today.
[2018-09-21] MEDS: Z GUARD REMEDY 4 OZ OINT TP SCH ×4 (09:00→20:28)
[2018-09-21] MEDS: HEPARIN SODIUM, PORCINE 5000 UNITS/1 ML VIAL SQ SCH ×2 (09:00→20:27)
[2018-09-21] MEDS: HYDROGEN PEROXIDE 480 ML BOTTLE TP SCH ×2 (09:00→20:27)
[2018-09-21] MEDS: SENNOSIDES 8.6 MG TABLET GT SCH ×2 (09:59→20:26)
[2018-09-21] MEDS: SERTRALINE HCL 25 MG TABLET GT SCH (09:59)
[2018-09-21] MEDS: LEVETIRACETAM SOL (5 ML) 100 MG/ML UDC GT SCH ×2 (09:59→20:26)
[2018-09-21] MEDS: FOLIC ACID 1 MG TABLET GT SCH ×2 (09:59→17:00)
[2018-09-21] MEDS: BACLOFEN (10 MG) 10 MG TABLET GT SCH ×3 (09:59→17:00)
[2018-09-21] MEDS: IV NS 0.9% 1,000 ML IV PRN (10:00)
--- NOTE | 2018-09-21 15:13 | NUR ---
Late entry for 09/20/18 Pt's father came to visit. Reminded him that pt's Rituxan will be delivered on 09/21/18 and pt will need to be transferred to acute hospital.
--- NOTE | 2018-09-21 17:56 | NUR ---
Received order from Dr Aguilar to give Ceftriaxone 1 gm IV q 24 for UTI until 09/28/18. Notified pt's father of IV hydration and IV antibiotic.
[2018-09-21] MEDS: CEFTRIAXONE 1 G in IV D5W 50 ML IV SCH (19:30)
[2018-09-21 20:06] VITALS: BP 137/77
[2018-09-21] MEDS: ACETAMINOPHEN 650 MG/20 ML UDC- SA PATIENTS-FEVER ONLY GT PRN (20:28)
[2018-09-21] MEDS: POLYETHYLENE GLYCOL 3350 17 GM POWD.PACK GT SCH (21:42)
[2018-09-22] MEDS: POLYVINYL ALCOHOL 15 ML BOTTLE EACHEYE SCH ×5 (00:46→23:21)
[2018-09-22] MEDS: ALBUTEROL FS 2.5 MG/3 ML VIAL.NEB NEB SCH ×4 (00:48→20:01)
[2018-09-22] MEDS: MYCOPHENOLATE MOFETIL SUSP 500 MG/2.5 ML UDC GT SCH ×2 (05:24→17:10)
[2018-09-22] MEDS: CHLORHEXIDINE GLUCONATE 15 ML UDC MM SCH ×2 (05:24→17:10)
[2018-09-22] MEDS: Z GUARD REMEDY 4 OZ OINT TP SCH ×4 (08:31→20:07)
[2018-09-22] MEDS: BACLOFEN (10 MG) 10 MG TABLET GT SCH ×3 (08:31→17:11)
[2018-09-22] MEDS: SENNOSIDES 8.6 MG TABLET GT SCH ×2 (08:31→20:06)
[2018-09-22] MEDS: HYDROGEN PEROXIDE 480 ML BOTTLE TP SCH ×2 (08:31→20:07)
[2018-09-22] MEDS: HEPARIN SODIUM, PORCINE 5000 UNITS/1 ML VIAL SQ SCH ×2 (08:31→20:07)
[2018-09-22] MEDS: FOLIC ACID 1 MG TABLET GT SCH ×2 (08:31→17:10)
[2018-09-22] MEDS: SERTRALINE HCL 25 MG TABLET GT SCH (08:31)
[2018-09-22] MEDS: LEVETIRACETAM SOL (5 ML) 100 MG/ML UDC GT SCH ×2 (08:31→20:06)
[2018-09-22 08:47] VITALS: BP 110/58
[2018-09-22] MEDS: IV NS 0.9% 1,000 ML IV PRN (09:31)
[2018-09-22] MEDS: CEFTRIAXONE 1 G in IV D5W 50 ML IV SCH (16:53)
[2018-09-22] MEDS: JEVITY 1.2 CAL 1,000 ML BOTTLE GT PRN (17:11)
[2018-09-22 20:08] VITALS: BP 117/63
[2018-09-22] MEDS: POLYETHYLENE GLYCOL 3350 17 GM POWD.PACK GT SCH (21:57)
[2018-09-23] MEDS: ALBUTEROL FS 2.5 MG/3 ML VIAL.NEB NEB SCH ×5 (01:58→20:05)
[2018-09-23] MEDS: IV NS 0.9% 1,000 ML IV PRN ×2 (02:38→21:19)
[2018-09-23] MEDS: CHLORHEXIDINE GLUCONATE 15 ML UDC MM SCH ×2 (05:29→17:37)
[2018-09-23] MEDS: MYCOPHENOLATE MOFETIL SUSP 500 MG/2.5 ML UDC GT SCH ×2 (05:29→17:37)
[2018-09-23] MEDS: POLYVINYL ALCOHOL 15 ML BOTTLE EACHEYE SCH ×4 (05:29→23:22)
[2018-09-23 07:54] VITALS: BP 123/70
[2018-09-23] MEDS: Z GUARD REMEDY 4 OZ OINT TP SCH ×4 (09:00→21:19)
[2018-09-23] MEDS: BACLOFEN (10 MG) 10 MG TABLET GT SCH ×3 (09:00→16:25)
[2018-09-23] MEDS: HYDROGEN PEROXIDE 480 ML BOTTLE TP SCH ×2 (09:00→21:18)
[2018-09-23] MEDS: FOLIC ACID 1 MG TABLET GT SCH ×2 (09:00→16:25)
[2018-09-23] MEDS: HEPARIN SODIUM, PORCINE 5000 UNITS/1 ML VIAL SQ SCH ×2 (09:00→21:18)
[2018-09-23] MEDS: SERTRALINE HCL 25 MG TABLET GT SCH (09:00)
[2018-09-23] MEDS: SENNOSIDES 8.6 MG TABLET GT SCH ×2 (09:00→21:17)
[2018-09-23] MEDS: LEVETIRACETAM SOL (5 ML) 100 MG/ML UDC GT SCH ×2 (09:00→21:17)
--- NOTE | 2018-09-23 13:02 | NUR ---
Seen by Dr Aguilar. He said Rituxan can be administered when pt completes her antibiotic for UTI.
[2018-09-23] MEDS: JEVITY 1.2 CAL 1,000 ML BOTTLE GT PRN (16:27)
[2018-09-23] MEDS: CEFTRIAXONE 1 G in IV D5W 50 ML IV SCH (16:44)
[2018-09-23 20:26] VITALS: BP 123/89
--- NOTE | 2018-09-23 21:08 | NUR ---
RT NOTE PATIENT WAS RECEIVED ON 28% COOL AEROSOL. HHN INLINE TREATMENT WAS GIVEN ,NO ADVERSE REACTION NOTED. PRN SUCTION WAS DONE. TRACH TUBE PATENT AND SECURED. AMBUBAG AND SPARE TRACH AT BED SIDE. NO RESPIRATORY DISTRESS NOTED AT THIS TIME.WILL CONTINUE TO MONITOR PATIENT. Addendum: 09/23/18 at 2109 by ELIAZAR GOMES RT Amended: Links added.
[2018-09-23] MEDS: POLYETHYLENE GLYCOL 3350 17 GM POWD.PACK GT SCH (21:19)
[2018-09-24] MEDS: ALBUTEROL FS 2.5 MG/3 ML VIAL.NEB NEB SCH ×4 (01:28→19:54)
[2018-09-24] MEDS: POLYVINYL ALCOHOL 15 ML BOTTLE EACHEYE SCH ×3 (05:52→18:01)
[2018-09-24] MEDS: CHLORHEXIDINE GLUCONATE 15 ML UDC MM SCH ×2 (05:52→18:01)
[2018-09-24] MEDS: MYCOPHENOLATE MOFETIL SUSP 500 MG/2.5 ML UDC GT SCH ×2 (05:52→18:01)
[2018-09-24] MEDS: JEVITY 1.2 CAL 1,000 ML BOTTLE GT PRN ×2 (05:52→19:20)
[2018-09-24 07:47] VITALS: BP 111/83
[2018-09-24] MEDS: LEVETIRACETAM SOL (5 ML) 100 MG/ML UDC GT SCH ×2 (09:52→21:09)
[2018-09-24] MEDS: HEPARIN SODIUM, PORCINE 5000 UNITS/1 ML VIAL SQ SCH ×2 (09:52→21:10)
[2018-09-24] MEDS: SENNOSIDES 8.6 MG TABLET GT SCH ×2 (09:52→21:09)
[2018-09-24] MEDS: BACLOFEN (10 MG) 10 MG TABLET GT SCH ×3 (09:52→16:57)
[2018-09-24] MEDS: HYDROGEN PEROXIDE 480 ML BOTTLE TP SCH ×2 (09:52→21:10)
[2018-09-24] MEDS: Z GUARD REMEDY 4 OZ OINT TP SCH ×4 (09:52→21:10)
[2018-09-24] MEDS: SERTRALINE HCL 25 MG TABLET GT SCH (09:52)
[2018-09-24] MEDS: FOLIC ACID 1 MG TABLET GT SCH ×2 (09:52→16:57)
[2018-09-24] MEDS: CEFTRIAXONE 1 G in IV D5W 50 ML IV SCH (17:30)
[2018-09-24 20:33] VITALS: BP 114/66
[2018-09-24] MEDS: POLYETHYLENE GLYCOL 3350 17 GM POWD.PACK GT SCH (21:10)
[2018-09-25] MEDS: POLYVINYL ALCOHOL 15 ML BOTTLE EACHEYE SCH ×4 (00:25→17:03)
--- NOTE | 2018-09-25 02:00 | NUR ---
SUBACUTE RN NOTE: PATIENT IV INFILTRATED TO RFA, REMOVED, COVERED WITH GAUZE, PRESSURE APPLIED AND SECURED WITH TAPE. NEW IV STARTED TO LFA #22 WITH GOOD BLOOD RETURN. WILL CONTINUE TO MONITOR.
[2018-09-25] MEDS: ALBUTEROL FS 2.5 MG/3 ML VIAL.NEB NEB SCH ×4 (02:02→19:45)
[2018-09-25] MEDS: CHLORHEXIDINE GLUCONATE 15 ML UDC MM SCH ×2 (05:40→17:03)
[2018-09-25] MEDS: MYCOPHENOLATE MOFETIL SUSP 500 MG/2.5 ML UDC GT SCH ×2 (05:40→17:03)
[2018-09-25 07:48] VITALS: BP 136/64
[2018-09-25] MEDS: HYDROGEN PEROXIDE 480 ML BOTTLE TP SCH ×2 (09:00→20:28)
[2018-09-25] MEDS: Z GUARD REMEDY 4 OZ OINT TP SCH ×4 (09:00→20:28)
[2018-09-25] MEDS: SENNOSIDES 8.6 MG TABLET GT SCH ×3 (09:00→20:27)
[2018-09-25] MEDS: LEVETIRACETAM SOL (5 ML) 100 MG/ML UDC GT SCH ×2 (09:31→20:27)
[2018-09-25] MEDS: SERTRALINE HCL 25 MG TABLET GT SCH (09:31)
[2018-09-25] MEDS: FOLIC ACID 1 MG TABLET GT SCH ×2 (09:31→17:02)
[2018-09-25] MEDS: BACLOFEN (10 MG) 10 MG TABLET GT SCH ×3 (09:31→17:03)
[2018-09-25] MEDS: HEPARIN SODIUM, PORCINE 5000 UNITS/1 ML VIAL SQ SCH ×2 (09:31→20:33)
--- NOTE | 2018-09-25 09:39 | NUR ---
Resident's father, Dr Swift visited and informed this nurse that he will be our of the country for 1 month. He verbalized that in case of emergency, staff should contact patient's Mr. Tellez or her son. Endorsed. Informed Dr. Swift that Rituxan administration will be done after patient completed antibiotic. Verbalized understanding.
--- NOTE | 2018-09-25 11:56 | NUR ---
Seen and examined by Dr. Aguilar, NNO given. He said that if patient continue to be afebrile, he would like her to be transferred to [facility] on Thursday for Rituxan administration. Endorsed.
[2018-09-25] MEDS: JEVITY 1.2 CAL 1,000 ML BOTTLE GT PRN (15:39)
[2018-09-25] MEDS: CEFTRIAXONE 1 G in IV D5W 50 ML IV SCH (17:10)
--- NOTE | 2018-09-25 18:05 | NUR ---
Noted an order from Dr. Aguilar for Vibramycin 100 mg. via GT Q [address] Aguilar, Vibramycin in combination with patient's current ATB Rocephin reduces the risk of C diff by up to 60% and he would like to give it to patient while on Rocephin due to episode of watery stool. Clarified with Dr. Aguilar per [facility] pharmacist request if he would like to send stool for culture. MD said no. Resident's Mr. Tellez notified of new order and said that he is giving permission to give the medication.
[2018-09-25] MEDS: DOXYCYCLINE HYCLATE (100 MG) 100 MG TABLET GT SCH (20:27)
--- NOTE | 2018-09-25 20:56 | NUR ---
RT NOTE PATIENT WAS RECEIVED ON 28% COOL AEROSOL. HHN INLINE TREATMENT WAS GIVEN ,NO ADVERSE REACTION NOTED. PRN SUCTION WAS DONE. TRACH TUBE PATENT AND SECURED. AMBUBAG AND SPARE TRACH AT BED SIDE. NO RESPIRATORY DISTRESS NOTED AT THIS TIME.WILL CONTINUE TO MONITOR PATIENT. Addendum: 09/25/18 at 2055 by ELIAZAR GOMES RT Amended: Links added.
[2018-09-25 21:25] VITALS: BP 106/58
[2018-09-25] MEDS: POLYETHYLENE GLYCOL 3350 17 GM POWD.PACK GT SCH (22:00)
[2018-09-26] MEDS: ALBUTEROL FS 2.5 MG/3 ML VIAL.NEB NEB SCH ×4 (01:38→19:54)
[2018-09-26] MEDS: CHLORHEXIDINE GLUCONATE 15 ML UDC MM SCH ×2 (05:36→17:54)
[2018-09-26] MEDS: POLYVINYL ALCOHOL 15 ML BOTTLE EACHEYE SCH ×5 (05:36→23:40)
[2018-09-26] MEDS: MYCOPHENOLATE MOFETIL SUSP 500 MG/2.5 ML UDC GT SCH ×2 (05:36→17:54)
[2018-09-26 08:00] VITALS: BP 123/69
[2018-09-26] MEDS: LEVETIRACETAM SOL (5 ML) 100 MG/ML UDC GT SCH ×2 (08:35→20:48)
[2018-09-26] MEDS: SENNOSIDES 8.6 MG TABLET GT SCH ×2 (08:35→20:51)
[2018-09-26] MEDS: BACLOFEN (10 MG) 10 MG TABLET GT SCH ×3 (08:35→17:13)
[2018-09-26] MEDS: SERTRALINE HCL 25 MG TABLET GT SCH (08:35)
[2018-09-26] MEDS: FOLIC ACID 1 MG TABLET GT SCH ×2 (08:35→17:13)
[2018-09-26] MEDS: HEPARIN SODIUM, PORCINE 5000 UNITS/1 ML VIAL SQ SCH ×2 (08:36→20:50)
[2018-09-26] MEDS: HYDROGEN PEROXIDE 480 ML BOTTLE TP SCH ×2 (08:37→20:50)
[2018-09-26] MEDS: Z GUARD REMEDY 4 OZ OINT TP SCH ×4 (08:37→20:50)
[2018-09-26] MEDS: NEOMY SULF/BACITRAC ZN/POLY 15 GM TUBE TP SCH ×2 (09:00→20:50)
[2018-09-26] MEDS: DOXYCYCLINE HYCLATE (100 MG) 100 MG TABLET GT SCH ×2 (09:00→20:48)
[2018-09-26] MEDS: JEVITY 1.2 CAL 1,000 ML BOTTLE GT PRN (12:57)
[2018-09-26] MEDS: CEFTRIAXONE 1 G in IV D5W 50 ML IV SCH (17:30)
[2018-09-26 20:14] VITALS: BP 110/64
[2018-09-26] MEDS: POLYETHYLENE GLYCOL 3350 17 GM POWD.PACK GT SCH (21:01)
[2018-09-27] MEDS: ALBUTEROL FS 2.5 MG/3 ML VIAL.NEB NEB SCH ×4 (01:48→20:12)
[2018-09-27] MEDS: MYCOPHENOLATE MOFETIL SUSP 500 MG/2.5 ML UDC GT SCH ×2 (05:22→18:35)
[2018-09-27] MEDS: POLYVINYL ALCOHOL 15 ML BOTTLE EACHEYE SCH ×3 (05:22→17:46)
[2018-09-27] MEDS: CHLORHEXIDINE GLUCONATE 15 ML UDC MM SCH ×2 (05:22→18:35)
[2018-09-27] MEDS: JEVITY 1.2 CAL 1,000 ML BOTTLE GT PRN (06:44)
[2018-09-27 07:55] VITALS: BP 116/62
[2018-09-27] MEDS: FOLIC ACID 1 MG TABLET GT SCH ×2 (09:29→17:46)
[2018-09-27] MEDS: HEPARIN SODIUM, PORCINE 5000 UNITS/1 ML VIAL SQ SCH ×2 (09:29→20:05)
[2018-09-27] MEDS: LEVETIRACETAM SOL (5 ML) 100 MG/ML UDC GT SCH ×2 (09:29→20:04)
[2018-09-27] MEDS: SENNOSIDES 8.6 MG TABLET GT SCH ×2 (09:29→20:04)
[2018-09-27] MEDS: DOXYCYCLINE HYCLATE (100 MG) 100 MG TABLET GT SCH ×2 (09:29→20:04)
[2018-09-27] MEDS: SERTRALINE HCL 25 MG TABLET GT SCH (09:29)
[2018-09-27] MEDS: BACLOFEN (10 MG) 10 MG TABLET GT SCH ×3 (09:29→17:46)
[2018-09-27] MEDS: Z GUARD REMEDY 4 OZ OINT TP SCH ×4 (09:30→20:05)
[2018-09-27] MEDS: HYDROGEN PEROXIDE 480 ML BOTTLE TP SCH ×2 (09:30→20:05)
[2018-09-27] MEDS: NEOMY SULF/BACITRAC ZN/POLY 15 GM TUBE TP SCH (09:30)
--- NOTE | 2018-09-27 13:21 | NUR ---
INTERDISCIPLINARY TEAM CONFERENCE (IDT) was held today. Resident's father could not attend today's IDT meeting. Dr. Lubin and the interdisciplinary team reviewed the current plan of care in detail. Orders as well as treatment and medications were reviewed. There was no change in resident's condition or new order
--- NOTE | 2018-09-27 13:34 | NUR ---
Dr Aguilar ordered to transfer pt to acute hospital on 09/29/18 for Rituxan administration. Informed pharmacist Ibrahima and nursing workers' compensation claims supervisor Milagro.
[2018-09-27] MEDS: CEFTRIAXONE 1 G in IV D5W 50 ML IV SCH (17:30)
[2018-09-27 19:45] VITALS: BP 124/67
[2018-09-27] MEDS: POLYETHYLENE GLYCOL 3350 17 GM POWD.PACK GT SCH (22:10)
[2018-09-28] MEDS: POLYVINYL ALCOHOL 15 ML BOTTLE EACHEYE SCH ×5 (00:45→23:29)
[2018-09-28] MEDS: ALBUTEROL FS 2.5 MG/3 ML VIAL.NEB NEB SCH ×4 (01:54→19:40)
[2018-09-28] MEDS: MYCOPHENOLATE MOFETIL SUSP 500 MG/2.5 ML UDC GT SCH ×2 (05:33→18:11)
[2018-09-28] MEDS: CHLORHEXIDINE GLUCONATE 15 ML UDC MM SCH ×2 (05:33→18:11)
[2018-09-28 08:02] VITALS: BP 131/72
[2018-09-28] MEDS: SENNOSIDES 8.6 MG TABLET GT SCH ×2 (09:33→20:20)
[2018-09-28] MEDS: FOLIC ACID 1 MG TABLET GT SCH ×2 (09:33→17:00)
[2018-09-28] MEDS: BACLOFEN (10 MG) 10 MG TABLET GT SCH ×3 (09:33→17:00)
[2018-09-28] MEDS: SERTRALINE HCL 25 MG TABLET GT SCH (09:33)
[2018-09-28] MEDS: LEVETIRACETAM SOL (5 ML) 100 MG/ML UDC GT SCH ×2 (09:33→20:20)
[2018-09-28] MEDS: DOXYCYCLINE HYCLATE (100 MG) 100 MG TABLET GT SCH (09:33)
[2018-09-28] MEDS: Z GUARD REMEDY 4 OZ OINT TP SCH ×4 (09:34→20:20)
[2018-09-28] MEDS: HYDROGEN PEROXIDE 480 ML BOTTLE TP SCH ×2 (09:34→20:20)
[2018-09-28] MEDS: HEPARIN SODIUM, PORCINE 5000 UNITS/1 ML VIAL SQ SCH (09:34)
[2018-09-28] MEDS: CEFTRIAXONE 1 G in IV D5W 50 ML IV SCH (17:30)
--- NOTE | 2018-09-28 17:30 | NUR ---
Pt already completed 7 days of Rocephin.
--- NOTE | 2018-09-28 17:59 | NUR ---
Notified LITHARGE SUPERVISOR Sugar Spangler that pt has a small amount of blood-tinged secretions. No respiratory distress noted.
--- NOTE | 2018-09-28 18:01 | NUR ---
Spoke with pt's Zeb Tellez. Informed him that pt will be transferred to [facility] tomorrow for Rituxan administration.
--- NOTE | 2018-09-28 18:31 | NUR ---
HA Spangler ordered to hold Coumadin and resume on 09/30/18 due to blood-tinged secretions.
[2018-09-28 20:34] VITALS: BP 133/91
[2018-09-28] MEDS: POLYETHYLENE GLYCOL 3350 17 GM POWD.PACK GT SCH (22:01)
[2018-09-29] MEDS: ALBUTEROL FS 2.5 MG/3 ML VIAL.NEB NEB SCH ×4 (01:04→19:30)
[2018-09-29] MEDS: POLYVINYL ALCOHOL 15 ML BOTTLE EACHEYE SCH ×3 (05:28→18:00)
[2018-09-29] MEDS: MYCOPHENOLATE MOFETIL SUSP 500 MG/2.5 ML UDC GT SCH ×2 (05:28→18:00)
[2018-09-29] MEDS: CHLORHEXIDINE GLUCONATE 15 ML UDC MM SCH ×2 (05:28→18:00)
[2018-09-29 08:00] VITALS: BP 116/68
[2018-09-29] MEDS: Z GUARD REMEDY 4 OZ OINT TP SCH ×4 (08:15→21:00)
[2018-09-29] MEDS: LEVETIRACETAM SOL (5 ML) 100 MG/ML UDC GT SCH ×2 (08:15→21:00)
[2018-09-29] MEDS: BACLOFEN (10 MG) 10 MG TABLET GT SCH (08:15)
[2018-09-29] MEDS: HYDROGEN PEROXIDE 480 ML BOTTLE TP SCH ×2 (08:15→21:00)
[2018-09-29] MEDS: SENNOSIDES 8.6 MG TABLET GT SCH ×2 (08:15→21:00)
[2018-09-29] MEDS: FOLIC ACID 1 MG TABLET GT SCH ×2 (08:15→17:00)
[2018-09-29] MEDS: SERTRALINE HCL 25 MG TABLET GT SCH (08:15)
--- NOTE | 2018-09-29 09:30 | NUR ---
Resident transferred to [facility] for Rituxan administration. Awake, alert on cool aerosol via trach mask V/S 98.8.86,19,97%, 116/68. Report given to [facility] RN Meredith. All 0900 medications given except for Heparin. Dr. Aguilar informed of transfer. Family was notified by CN yesterday of patient's transfer. Patient with HL in the R foot G#20 and L hand G#24, both intact and patent. Resident wheeled to [facility] accompanied by MANAGER DELIVERY, RT and FLEET OPERATIONS MANAGER in stable condition.
[2018-09-29] MEDS: POLYETHYLENE GLYCOL 3350 17 GM POWD.PACK GT SCH (22:00)
[2018-09-30] MEDS: ALBUTEROL FS 2.5 MG/3 ML VIAL.NEB NEB SCH ×2 (01:18→20:10)
[2018-09-30] MEDS: SENNOSIDES 8.6 MG TABLET GT SCH ×2 (09:00→21:00)
[2018-09-30] MEDS ORDERED: HEPARIN SODIUM, PORCINE 5000 UNITS/1 ML VIAL SQ SCH (09:00)
--- NOTE | 2018-09-30 15:35 | NUR ---
Pt readmitted from [facility]. According to KENYATTA Avalos, pt tolerated Rituxan administration well, no adverse reactions were noted. Informed Dr Aguilar that pt is back in Subacute and verified orders with him. Pt has some tracheal bleeding and KENYATTA Avalos said Dr Lubin is aware of it. Started pt's feeding of Jevity 1.2 at 80 mL/hr. Pt on cool aerosol FiO2 28%. Pt noted with redness on the G-tube site and gluteal cleft. Gluteal cleft appears to have redness and a superficial cut. Cleaned pt and made comfortable in bed. Pt awake and appears comfortable, no distress noted. HOB elevated as aspiration precaution. Call light within easy reach. Informed pt's .
[2018-09-30 16:44] VITALS: BP 108/63
[2018-09-30] MEDS: MYCOPHENOLATE MOFETIL SUSP 500 MG/2.5 ML UDC GT SCH (18:00)
[2018-09-30 19:32] VITALS: BP 101/58
--- NOTE | 2018-09-30 20:28 | NUR ---
PT REGINA HANDY'D ON COOL AEROSOL WITH CHARTED SETTINGS. HHN TX GIVEN AND NO ADVERSE REACTION NOTED. SX DONE SMALL, THIN, CLEAR AND BLOODY SECRETIONS. JERAMY JOYNER AWARE. PT TRACH PATENT AND SECURE. AMBU BAG AT BEDSIDE. WILL CONTINUE TO MONITOR. Addendum: 09/30/18 at 2030 by USHA SUMMERS RT Amended: Links added. Addendum: 09/30/18 at 2031 by USHA SUMMERS RT LAVAGED PATIENT WITH ICED WATER SALINE. ICED WATER SALINE BEDSIDE.
[2018-09-30] MEDS: LEVETIRACETAM SOL (5 ML) 100 MG/ML UDC GT SCH (21:00)
[2018-09-30] MEDS: Z GUARD REMEDY 4 OZ OINT TP SCH ×3 (21:00→21:20)
[2018-09-30] MEDS: HYDROGEN PEROXIDE 480 ML BOTTLE TP SCH (21:00)
[2018-09-30] MEDS: ZINC OXIDE 30 GM TUBE TP SCH (21:21)
[2018-09-30] MEDS: POLYETHYLENE GLYCOL 3350 17 GM POWD.PACK GT SCH (21:46)
[2018-09-30] MEDS: POLYVINYL ALCOHOL 15 ML BOTTLE EACHEYE SCH (23:20)
[2018-10-01] MEDS: ALBUTEROL FS 2.5 MG/3 ML VIAL.NEB NEB SCH ×4 (01:44→20:05)
[2018-10-01] MEDS: POLYVINYL ALCOHOL 15 ML BOTTLE EACHEYE SCH ×3 (05:20→23:23)
[2018-10-01] MEDS: MYCOPHENOLATE MOFETIL SUSP 500 MG/2.5 ML UDC GT SCH ×2 (05:20→18:05)
[2018-10-01] MEDS: CHLORHEXIDINE GLUCONATE 15 ML UDC MM SCH ×2 (05:20→18:03)
[2018-10-01 08:00] VITALS: BP 112/67
--- NOTE | 2018-10-01 08:24 | NUR ---
Seen and examined by Dr. Aguilar, made aware that patient has blood tinged secretions. MD assessed patient said that it is OK to resume Heparin 5000 units Q 12 hours. Order carried out.
[2018-10-01] MEDS: HYDROGEN PEROXIDE 480 ML BOTTLE TP SCH ×2 (09:00→21:08)
[2018-10-01] MEDS: BACLOFEN (10 MG) 10 MG TABLET GT SCH ×3 (09:00→17:00)
[2018-10-01] MEDS: Z GUARD REMEDY 4 OZ OINT TP SCH ×6 (09:00→21:08)
[2018-10-01] MEDS: SERTRALINE HCL 25 MG TABLET GT SCH (09:00)
[2018-10-01] MEDS: ZINC OXIDE 30 GM TUBE TP SCH ×2 (09:00→21:08)
[2018-10-01] MEDS: FOLIC ACID 1 MG TABLET GT SCH ×2 (09:00→17:00)
[2018-10-01] MEDS: LEVETIRACETAM SOL (5 ML) 100 MG/ML UDC GT SCH ×2 (09:00→21:08)
[2018-10-01] MEDS: JEVITY 1.2 CAL 1,000 ML BOTTLE GT PRN (18:05)
[2018-10-01 19:43] VITALS: BP 120/62
--- NOTE | 2018-10-01 20:00 | NUR ---
RT PT RECEIVED TRACHED ON COOL AEROSOL WITH CHARTED SETTINGS. AIRWAY PATENT AND SECURED. HHN TX GIVEN AND NO ADVERSE REACTION NOTED. SUCTIONED SMALL TO MODERATE AMOUNT OF THIN, AND BLOODY SECRETIONS. KETTLE ROOM HELPER AWARE. AMBU BAG AT BEDSIDE. WILL CONTINUE TO MONITOR.
[2018-10-01] MEDS: SENNOSIDES 8.6 MG TABLET GT SCH (21:07)
[2018-10-01] MEDS: POLYETHYLENE GLYCOL 3350 17 GM POWD.PACK GT SCH (21:07)
[2018-10-01] MEDS: HEPARIN SODIUM, PORCINE 5000 UNITS/1 ML VIAL SQ SCH (21:08)
[2018-10-02] MEDS: ALBUTEROL FS 2.5 MG/3 ML VIAL.NEB NEB SCH ×4 (01:54→20:07)
--- NOTE | 2018-10-02 04:02 | NUR ---
blood tinged secretions noted to trach. lavaged with cold saline. pt calm. no s/s of distress noted. will monitor closely.
[2018-10-02] MEDS: MYCOPHENOLATE MOFETIL SUSP 500 MG/2.5 ML UDC GT SCH ×2 (05:32→18:29)
[2018-10-02] MEDS: CHLORHEXIDINE GLUCONATE 15 ML UDC MM SCH ×2 (05:32→17:40)
[2018-10-02] MEDS: POLYVINYL ALCOHOL 15 ML BOTTLE EACHEYE SCH ×3 (05:32→17:38)
[2018-10-02] MEDS: JEVITY 1.2 CAL 1,000 ML BOTTLE GT PRN (07:13)
[2018-10-02] MEDS: FOLIC ACID 1 MG TABLET GT SCH ×2 (09:00→17:37)
[2018-10-02] MEDS: HEPARIN SODIUM, PORCINE 5000 UNITS/1 ML VIAL SQ SCH (09:00)
[2018-10-02] MEDS: ZINC OXIDE 30 GM TUBE TP SCH ×2 (09:00→20:37)
[2018-10-02] MEDS: SENNOSIDES 8.6 MG TABLET GT SCH ×2 (09:00→20:37)
[2018-10-02] MEDS: BACLOFEN (10 MG) 10 MG TABLET GT SCH ×3 (09:00→17:37)
[2018-10-02] MEDS: HYDROGEN PEROXIDE 480 ML BOTTLE TP SCH ×2 (09:00→20:37)
[2018-10-02] MEDS: Z GUARD REMEDY 4 OZ OINT TP SCH ×6 (09:00→20:37)
[2018-10-02] MEDS: SERTRALINE HCL 25 MG TABLET GT SCH (09:00)
[2018-10-02] MEDS: LEVETIRACETAM SOL (5 ML) 100 MG/ML UDC GT SCH ×2 (09:00→20:37)
--- NOTE | 2018-10-02 12:00 | NUR ---
Notified Dr. Aguilar patient coughed out small amount of blood mixed with secretions. New order to hold Heparin until further order.
[2018-10-02 15:05] VITALS: BP 115/65
[2018-10-02 19:57] VITALS: BP 106/62
[2018-10-02] MEDS: POLYETHYLENE GLYCOL 3350 17 GM POWD.PACK GT SCH (22:00)
[2018-10-03] MEDS: ALBUTEROL FS 2.5 MG/3 ML VIAL.NEB NEB SCH ×4 (01:37→20:01)
[2018-10-03] MEDS: POLYVINYL ALCOHOL 15 ML BOTTLE EACHEYE SCH ×4 (05:16→17:06)
[2018-10-03] MEDS: MYCOPHENOLATE MOFETIL SUSP 500 MG/2.5 ML UDC GT SCH ×2 (05:16→17:06)
[2018-10-03] MEDS: CHLORHEXIDINE GLUCONATE 15 ML UDC MM SCH ×2 (05:16→17:06)
[2018-10-03 08:09] VITALS: BP 111/76
[2018-10-03] MEDS: FOLIC ACID 1 MG TABLET GT SCH ×2 (08:42→16:10)
[2018-10-03] MEDS: BACLOFEN (10 MG) 10 MG TABLET GT SCH ×3 (08:43→16:10)
[2018-10-03] MEDS: LEVETIRACETAM SOL (5 ML) 100 MG/ML UDC GT SCH ×2 (08:43→20:10)
[2018-10-03] MEDS: SENNOSIDES 8.6 MG TABLET GT SCH ×2 (08:43→20:11)
[2018-10-03] MEDS: Z GUARD REMEDY 4 OZ OINT TP SCH ×6 (08:44→20:12)
[2018-10-03] MEDS: HYDROGEN PEROXIDE 480 ML BOTTLE TP SCH ×2 (08:44→20:11)
[2018-10-03] MEDS: SERTRALINE HCL 25 MG TABLET GT SCH (08:44)
[2018-10-03] MEDS: ZINC OXIDE 30 GM TUBE TP SCH ×2 (08:45→20:12)
[2018-10-03] MEDS: JEVITY 1.2 CAL 1,000 ML BOTTLE GT PRN (13:47)
[2018-10-03 20:00] VITALS: BP 128/58
[2018-10-03] MEDS: POLYETHYLENE GLYCOL 3350 17 GM POWD.PACK GT SCH (21:55)
[2018-10-04] MEDS: POLYVINYL ALCOHOL 15 ML BOTTLE EACHEYE SCH ×4 (00:50→18:30)
[2018-10-04] MEDS: ALBUTEROL FS 2.5 MG/3 ML VIAL.NEB NEB SCH ×4 (01:10→20:08)
[2018-10-04] MEDS: MYCOPHENOLATE MOFETIL SUSP 500 MG/2.5 ML UDC GT SCH ×2 (05:19→18:30)
[2018-10-04] MEDS: CHLORHEXIDINE GLUCONATE 15 ML UDC MM SCH ×2 (05:19→18:30)
[2018-10-04 08:09] VITALS: BP 91/62
[2018-10-04] MEDS: FOLIC ACID 1 MG TABLET GT SCH ×2 (08:28→16:41)
[2018-10-04] MEDS: BACLOFEN (10 MG) 10 MG TABLET GT SCH ×3 (08:30→16:41)
[2018-10-04] MEDS: LEVETIRACETAM SOL (5 ML) 100 MG/ML UDC GT SCH ×2 (08:30→20:23)
[2018-10-04] MEDS: SERTRALINE HCL 25 MG TABLET GT SCH (08:30)
[2018-10-04] MEDS: SENNOSIDES 8.6 MG TABLET GT SCH ×2 (08:30→20:23)
[2018-10-04] MEDS: HYDROGEN PEROXIDE 480 ML BOTTLE TP SCH ×2 (09:00→20:24)
[2018-10-04] MEDS: ZINC OXIDE 30 GM TUBE TP SCH ×2 (09:00→20:24)
[2018-10-04] MEDS: Z GUARD REMEDY 4 OZ OINT TP SCH ×6 (09:00→20:24)
[2018-10-04] MEDS: JEVITY 1.2 CAL 1,000 ML BOTTLE GT PRN (11:31)
[2018-10-04 20:09] VITALS: BP 128/74
[2018-10-04] MEDS: POLYETHYLENE GLYCOL 3350 17 GM POWD.PACK GT SCH (22:21)
[2018-10-05] MEDS: POLYVINYL ALCOHOL 15 ML BOTTLE EACHEYE SCH ×4 (00:26→17:42)
[2018-10-05] MEDS: ALBUTEROL FS 2.5 MG/3 ML VIAL.NEB NEB SCH ×4 (01:29→20:02)
[2018-10-05] MEDS: CHLORHEXIDINE GLUCONATE 15 ML UDC MM SCH ×2 (05:22→17:42)
[2018-10-05] MEDS: MYCOPHENOLATE MOFETIL SUSP 500 MG/2.5 ML UDC GT SCH ×2 (05:22→17:42)
[2018-10-05] MEDS: JEVITY 1.2 CAL 1,000 ML BOTTLE GT PRN (05:23)
[2018-10-05 08:00] VITALS: BP 107/73
[2018-10-05] MEDS: LEVETIRACETAM SOL (5 ML) 100 MG/ML UDC GT SCH ×2 (08:48→20:52)
[2018-10-05] MEDS: SENNOSIDES 8.6 MG TABLET GT SCH ×2 (08:48→20:53)
[2018-10-05] MEDS: BACLOFEN (10 MG) 10 MG TABLET GT SCH ×3 (08:48→17:42)
[2018-10-05] MEDS: FOLIC ACID 1 MG TABLET GT SCH ×2 (08:48→17:42)
[2018-10-05] MEDS: SERTRALINE HCL 25 MG TABLET GT SCH (08:49)
[2018-10-05] MEDS: Z GUARD REMEDY 4 OZ OINT TP SCH ×6 (09:00→20:54)
[2018-10-05] MEDS: HYDROGEN PEROXIDE 480 ML BOTTLE TP SCH ×2 (09:00→20:54)
[2018-10-05] MEDS: ZINC OXIDE 30 GM TUBE TP SCH ×2 (09:00→20:54)
--- NOTE | 2018-10-05 16:18 | NUR ---
RT NOTE: PATIENT RECEIVED TRACHED ON COOL AEROSOL. TRACHEAL SUCTIONED TO OBTAIN SMALL AMOUNT OF BLOODY SECRETIONS. NURSE AWARE.
--- NOTE | 2018-10-05 19:15 | NUR ---
Pt was seen by Dr Lubin today. Informed him that Heparin is on hold and pt still has a small amount of tracheal bleeding. Dr Lubin ordered to resume Heparin.
[2018-10-05 20:00] VITALS: BP 103/66
[2018-10-05] MEDS ORDERED: HEPARIN SODIUM, PORCINE 5000 UNITS/1 ML VIAL SQ SCH (21:00)
[2018-10-05] MEDS: POLYETHYLENE GLYCOL 3350 17 GM POWD.PACK GT SCH (22:40)
[2018-10-06] MEDS: POLYVINYL ALCOHOL 15 ML BOTTLE EACHEYE SCH ×4 (00:26→17:30)
[2018-10-06] MEDS: ALBUTEROL FS 2.5 MG/3 ML VIAL.NEB NEB SCH ×4 (01:29→20:14)
[2018-10-06] MEDS: JEVITY 1.2 CAL 1,000 ML BOTTLE GT PRN (01:30)
[2018-10-06] MEDS: MYCOPHENOLATE MOFETIL SUSP 500 MG/2.5 ML UDC GT SCH ×2 (05:20→17:39)
[2018-10-06] MEDS: CHLORHEXIDINE GLUCONATE 15 ML UDC MM SCH ×2 (05:20→17:32)
[2018-10-06 07:52] VITALS: BP 111/61
[2018-10-06] MEDS: SENNOSIDES 8.6 MG TABLET GT SCH ×2 (08:55→20:36)
[2018-10-06] MEDS: FOLIC ACID 1 MG TABLET GT SCH ×2 (08:55→17:30)
[2018-10-06] MEDS: BACLOFEN (10 MG) 10 MG TABLET GT SCH ×3 (08:55→17:30)
[2018-10-06] MEDS: SERTRALINE HCL 25 MG TABLET GT SCH (08:55)
[2018-10-06] MEDS: LEVETIRACETAM SOL (5 ML) 100 MG/ML UDC GT SCH ×2 (08:55→20:35)
[2018-10-06] MEDS: ZINC OXIDE 30 GM TUBE TP SCH ×2 (09:00→20:36)
[2018-10-06] MEDS: HYDROGEN PEROXIDE 480 ML BOTTLE TP SCH ×2 (09:00→20:36)
[2018-10-06] MEDS: Z GUARD REMEDY 4 OZ OINT TP SCH ×6 (09:00→20:36)
--- NOTE | 2018-10-06 14:10 | NUR ---
Notified Dr. Aguilar that patient still having blood tinged secretions with order to hold Heparin for now. Order noted and carried out.
[2018-10-06 20:02] VITALS: BP 116/76
[2018-10-06] MEDS: POLYETHYLENE GLYCOL 3350 17 GM POWD.PACK GT SCH (21:55)
[2018-10-07] MEDS: POLYVINYL ALCOHOL 15 ML BOTTLE EACHEYE SCH ×4 (00:30→17:52)
[2018-10-07] MEDS: ALBUTEROL FS 2.5 MG/3 ML VIAL.NEB NEB SCH ×4 (01:21→19:27)
[2018-10-07] MEDS: JEVITY 1.2 CAL 1,000 ML BOTTLE GT PRN ×3 (01:35→21:00)
--- NOTE | 2018-10-07 01:40 | NUR ---
PT REGINA HANDY'D ON COOL AEROSOL WITH CHARTED SETTINGS. HHN TX GIVEN AND NO ADVERSE REACTION NOTED. SX DONE. PT TRACH PATENT AND SECURE. AMBU BAG AT BEDSIDE. WILL CONTINUE TO MONITOR. Addendum: 10/07/18 at 0141 by USHA SUMMERS RT Amended: Links added.
[2018-10-07] MEDS: CHLORHEXIDINE GLUCONATE 15 ML UDC MM SCH ×2 (05:29→17:52)
[2018-10-07] MEDS: MYCOPHENOLATE MOFETIL SUSP 500 MG/2.5 ML UDC GT SCH ×2 (05:29→17:52)
[2018-10-07 07:41] VITALS: BP 124/88
[2018-10-07] MEDS: FOLIC ACID 1 MG TABLET GT SCH ×2 (08:16→17:51)
[2018-10-07] MEDS: LEVETIRACETAM SOL (5 ML) 100 MG/ML UDC GT SCH ×2 (08:17→20:52)
[2018-10-07] MEDS: BACLOFEN (10 MG) 10 MG TABLET GT SCH ×3 (08:17→17:51)
[2018-10-07] MEDS: SERTRALINE HCL 25 MG TABLET GT SCH (08:17)
[2018-10-07] MEDS: SENNOSIDES 8.6 MG TABLET GT SCH ×2 (08:17→21:00)
[2018-10-07] MEDS: ZINC OXIDE 30 GM TUBE TP SCH ×2 (09:00→21:00)
[2018-10-07] MEDS: Z GUARD REMEDY 4 OZ OINT TP SCH ×6 (09:00→20:53)
[2018-10-07] MEDS: HYDROGEN PEROXIDE 480 ML BOTTLE TP SCH ×2 (09:00→20:53)
--- NOTE | 2018-10-07 14:15 | NUR ---
Seen by Dr Aguilar. He ordered a CXR due to pt's tracheal bleeding. He said to refer pt to HA Spangler. HA Spangler saw pt and said to use ice lavage whenever pt is being suctioned and do gentle suctioning. Pt able to cough out her secretions and not being suctioned often to prevent irritation.
[2018-10-07 20:00] VITALS: BP 114/62
[2018-10-07] MEDS: POLYETHYLENE GLYCOL 3350 17 GM POWD.PACK GT SCH (22:28)
[2018-10-08] MEDS: POLYVINYL ALCOHOL 15 ML BOTTLE EACHEYE SCH ×4 (00:18→17:32)
[2018-10-08] MEDS: ALBUTEROL FS 2.5 MG/3 ML VIAL.NEB NEB SCH ×4 (01:11→19:21)
[2018-10-08] MEDS: CHLORHEXIDINE GLUCONATE 15 ML UDC MM SCH ×2 (06:02→17:32)
[2018-10-08] MEDS: MYCOPHENOLATE MOFETIL SUSP 500 MG/2.5 ML UDC GT SCH ×2 (06:02→17:32)
[2018-10-08] MEDS: LEVETIRACETAM SOL (5 ML) 100 MG/ML UDC GT SCH ×2 (08:14→20:09)
[2018-10-08] MEDS: BACLOFEN (10 MG) 10 MG TABLET GT SCH ×3 (08:14→17:31)
[2018-10-08] MEDS: HYDROGEN PEROXIDE 480 ML BOTTLE TP SCH ×2 (08:14→20:10)
[2018-10-08] MEDS: Z GUARD REMEDY 4 OZ OINT TP SCH ×6 (08:14→20:10)
[2018-10-08] MEDS: SENNOSIDES 8.6 MG TABLET GT SCH ×2 (08:14→20:10)
[2018-10-08] MEDS: FOLIC ACID 1 MG TABLET GT SCH ×2 (08:14→17:31)
[2018-10-08] MEDS: SERTRALINE HCL 25 MG TABLET GT SCH (08:14)
[2018-10-08] MEDS: ZINC OXIDE 30 GM TUBE TP SCH ×2 (08:15→20:11)
[2018-10-08 11:27] VITALS: BP 109/41
--- NOTE | 2018-10-08 15:56 | NUR ---
Resident's father Dr. Swift called to inquire about patient's condition. He also spoke with the visitor, Ezio who is visiting patient at this time. Father is pleased so hear from Mr. Kramerey and very happy knowing that patient has visitors.
[2018-10-08] MEDS: JEVITY 1.2 CAL 1,000 ML BOTTLE GT PRN (20:07)
[2018-10-08 20:12] VITALS: BP 103/62
[2018-10-08] MEDS: POLYETHYLENE GLYCOL 3350 17 GM POWD.PACK GT SCH (21:48)
[2018-10-09] MEDS: ALBUTEROL FS 2.5 MG/3 ML VIAL.NEB NEB SCH ×4 (01:44→19:28)
[2018-10-09] MEDS: POLYVINYL ALCOHOL 15 ML BOTTLE EACHEYE SCH ×4 (05:10→17:20)
[2018-10-09] MEDS: MYCOPHENOLATE MOFETIL SUSP 500 MG/2.5 ML UDC GT SCH ×2 (05:11→17:20)
[2018-10-09] MEDS: CHLORHEXIDINE GLUCONATE 15 ML UDC MM SCH ×2 (05:11→17:20)
[2018-10-09 07:31] VITALS: BP_SYST 107; BP_SYST 114; BP_DIAS 60; BP_DIAS 75
[2018-10-09] MEDS: FOLIC ACID 1 MG TABLET GT SCH ×2 (08:54→17:20)
[2018-10-09] MEDS: LEVETIRACETAM SOL (5 ML) 100 MG/ML UDC GT SCH ×2 (08:54→20:12)
[2018-10-09] MEDS: SERTRALINE HCL 25 MG TABLET GT SCH (08:54)
[2018-10-09] MEDS: BACLOFEN (10 MG) 10 MG TABLET GT SCH ×3 (08:54→17:20)
[2018-10-09] MEDS: SENNOSIDES 8.6 MG TABLET GT SCH ×2 (08:54→20:12)
[2018-10-09] MEDS: HYDROGEN PEROXIDE 480 ML BOTTLE TP SCH ×2 (09:00→20:13)
[2018-10-09] MEDS: Z GUARD REMEDY 4 OZ OINT TP SCH ×6 (09:00→20:13)
[2018-10-09] MEDS: ZINC OXIDE 30 GM TUBE TP SCH ×2 (09:00→20:13)
--- NOTE | 2018-10-09 14:27 | NUR ---
Seen and examined by Dr. Aguilar. Reported that patient has no further tracheal bleeding since morning. He said it is OK to resume Heparin, order carried out. Patient also up in her wheelchair taken to activity room for activities.
[2018-10-09] MEDS: JEVITY 1.2 CAL 1,000 ML BOTTLE GT PRN (17:20)
[2018-10-09 20:01] VITALS: BP 132/82
[2018-10-09] MEDS: HEPARIN SODIUM, PORCINE 5000 UNITS/1 ML VIAL SQ SCH (20:12)
[2018-10-09] MEDS: POLYETHYLENE GLYCOL 3350 17 GM POWD.PACK GT SCH (22:16)
[2018-10-10] MEDS: ALBUTEROL FS 2.5 MG/3 ML VIAL.NEB NEB SCH ×4 (00:48→20:04)
[2018-10-10] MEDS: POLYVINYL ALCOHOL 15 ML BOTTLE EACHEYE SCH ×4 (05:11→18:02)
[2018-10-10] MEDS: MYCOPHENOLATE MOFETIL SUSP 500 MG/2.5 ML UDC GT SCH ×2 (05:11→18:02)
[2018-10-10] MEDS: CHLORHEXIDINE GLUCONATE 15 ML UDC MM SCH ×2 (05:11→18:03)
[2018-10-10 07:30] VITALS: BP 114/71
[2018-10-10] MEDS: SENNOSIDES 8.6 MG TABLET GT SCH ×2 (09:00→20:32)
[2018-10-10] MEDS: BACLOFEN (10 MG) 10 MG TABLET GT SCH ×3 (09:00→17:00)
[2018-10-10] MEDS: HYDROGEN PEROXIDE 480 ML BOTTLE TP SCH ×2 (09:00→20:34)
[2018-10-10] MEDS: ZINC OXIDE 30 GM TUBE TP SCH ×2 (09:00→20:35)
[2018-10-10] MEDS: FOLIC ACID 1 MG TABLET GT SCH ×2 (09:00→17:00)
[2018-10-10] MEDS: LEVETIRACETAM SOL (5 ML) 100 MG/ML UDC GT SCH ×2 (09:00→20:32)
[2018-10-10] MEDS: SERTRALINE HCL 25 MG TABLET GT SCH (09:00)
[2018-10-10] MEDS: Z GUARD REMEDY 4 OZ OINT TP SCH ×6 (09:00→20:35)
[2018-10-10] MEDS: HEPARIN SODIUM, PORCINE 5000 UNITS/1 ML VIAL SQ SCH ×2 (09:01→20:33)
[2018-10-10] MEDS: JEVITY 1.2 CAL 1,000 ML BOTTLE GT PRN (14:35)
[2018-10-10 19:55] VITALS: BP 113/67
--- NOTE | 2018-10-10 20:14 | NUR ---
RT NOTE: RECEIVED TRACH PT ON COOL AEROSOL. AMBU BAG @ BEDSIDE. Q6 BREATHING TX GIVEN PER MD ORDERS WITH NO ADVERSE REACTION NOTED. SX DONE PRN. TRACH PATENT AND SECURED. NO RESP DISTRESS NOTED AT THIS TIME. WILL CONTINUE TO MONITOR PT. Addendum: 10/11/18 at 0211 by DOV GREENBERG RT Amended: Links added.
[2018-10-10] MEDS: POLYETHYLENE GLYCOL 3350 17 GM POWD.PACK GT SCH (22:29)
[2018-10-11] MEDS: POLYVINYL ALCOHOL 15 ML BOTTLE EACHEYE SCH ×4 (00:37→17:36)
[2018-10-11] MEDS: ALBUTEROL FS 2.5 MG/3 ML VIAL.NEB NEB SCH ×4 (01:18→20:16)
[2018-10-11] MEDS: MYCOPHENOLATE MOFETIL SUSP 500 MG/2.5 ML UDC GT SCH ×2 (05:15→17:36)
[2018-10-11] MEDS: CHLORHEXIDINE GLUCONATE 15 ML UDC MM SCH ×2 (05:15→17:36)
[2018-10-11] MEDS: JEVITY 1.2 CAL 1,000 ML BOTTLE GT PRN (06:47)
[2018-10-11 07:40] VITALS: BP 122/85
[2018-10-11] MEDS: BACLOFEN (10 MG) 10 MG TABLET GT SCH ×3 (08:19→17:36)
[2018-10-11] MEDS: LEVETIRACETAM SOL (5 ML) 100 MG/ML UDC GT SCH ×2 (08:19→20:37)
[2018-10-11] MEDS: SENNOSIDES 8.6 MG TABLET GT SCH ×2 (08:19→20:37)
[2018-10-11] MEDS: FOLIC ACID 1 MG TABLET GT SCH ×2 (08:19→17:36)
[2018-10-11] MEDS: SERTRALINE HCL 25 MG TABLET GT SCH (08:19)
[2018-10-11] MEDS: HEPARIN SODIUM, PORCINE 5000 UNITS/1 ML VIAL SQ SCH ×2 (08:22→20:39)
[2018-10-11] MEDS: HYDROGEN PEROXIDE 480 ML BOTTLE TP SCH ×2 (09:00→20:41)
[2018-10-11] MEDS: ZINC OXIDE 30 GM TUBE TP SCH ×2 (09:00→20:41)
[2018-10-11] MEDS: Z GUARD REMEDY 4 OZ OINT TP SCH ×6 (09:00→20:41)
--- NOTE | 2018-10-11 13:00 | NUR ---
Seen and examined by HA Spangler, no new order given.
--- NOTE | 2018-10-11 15:20 | NUR ---
Seen and examined by Dr. Aguilar, no new order given.
[2018-10-11 19:56] VITALS: BP 120/66
[2018-10-11] MEDS: POLYETHYLENE GLYCOL 3350 17 GM POWD.PACK GT SCH (21:47)
[2018-10-12] MEDS: POLYVINYL ALCOHOL 15 ML BOTTLE EACHEYE SCH ×4 (00:19→17:16)
[2018-10-12] MEDS: ALBUTEROL FS 2.5 MG/3 ML VIAL.NEB NEB SCH ×4 (01:05→20:14)
[2018-10-12] MEDS: JEVITY 1.2 CAL 1,000 ML BOTTLE GT PRN (03:47)
[2018-10-12] MEDS: CHLORHEXIDINE GLUCONATE 15 ML UDC MM SCH ×2 (05:16→17:16)
[2018-10-12] MEDS: MYCOPHENOLATE MOFETIL SUSP 500 MG/2.5 ML UDC GT SCH ×2 (05:16→17:16)
[2018-10-12 07:40] VITALS: BP 111/66
[2018-10-12] MEDS: BACLOFEN (10 MG) 10 MG TABLET GT SCH ×3 (09:00→17:16)
[2018-10-12] MEDS: HEPARIN SODIUM, PORCINE 5000 UNITS/1 ML VIAL SQ SCH ×2 (09:00→20:35)
[2018-10-12] MEDS: FOLIC ACID 1 MG TABLET GT SCH ×2 (09:00→17:16)
[2018-10-12] MEDS: SERTRALINE HCL 25 MG TABLET GT SCH (09:00)
[2018-10-12] MEDS: ZINC OXIDE 30 GM TUBE TP SCH ×2 (09:00→20:38)
[2018-10-12] MEDS: HYDROGEN PEROXIDE 480 ML BOTTLE TP SCH ×2 (09:00→20:37)
[2018-10-12] MEDS: LEVETIRACETAM SOL (5 ML) 100 MG/ML UDC GT SCH ×2 (09:00→20:34)
[2018-10-12] MEDS: SENNOSIDES 8.6 MG TABLET GT SCH ×2 (09:00→20:34)
[2018-10-12] MEDS: Z GUARD REMEDY 4 OZ OINT TP SCH ×6 (09:00→20:37)
[2018-10-12 20:32] VITALS: BP 121/68
[2018-10-12] MEDS: POLYETHYLENE GLYCOL 3350 17 GM POWD.PACK GT SCH (21:57)
[2018-10-13] MEDS: ALBUTEROL FS 2.5 MG/3 ML VIAL.NEB NEB SCH ×4 (01:27→20:03)
[2018-10-13] MEDS: JEVITY 1.2 CAL 1,000 ML BOTTLE GT PRN (04:05)
[2018-10-13] MEDS: POLYVINYL ALCOHOL 15 ML BOTTLE EACHEYE SCH ×4 (05:14→17:09)
[2018-10-13] MEDS: MYCOPHENOLATE MOFETIL SUSP 500 MG/2.5 ML UDC GT SCH ×2 (05:15→17:09)
[2018-10-13] MEDS: CHLORHEXIDINE GLUCONATE 15 ML UDC MM SCH ×2 (05:15→17:09)
[2018-10-13 07:36] VITALS: BP 122/63
[2018-10-13] MEDS: HYDROGEN PEROXIDE 480 ML BOTTLE TP SCH ×2 (09:00→20:37)
[2018-10-13] MEDS: FOLIC ACID 1 MG TABLET GT SCH ×2 (09:00→16:37)
[2018-10-13] MEDS: SENNOSIDES 8.6 MG TABLET GT SCH ×2 (09:00→20:35)
[2018-10-13] MEDS: Z GUARD REMEDY 4 OZ OINT TP SCH ×6 (09:00→20:37)
[2018-10-13] MEDS: BACLOFEN (10 MG) 10 MG TABLET GT SCH ×3 (09:00→16:37)
[2018-10-13] MEDS: ZINC OXIDE 30 GM TUBE TP SCH ×2 (09:00→20:37)
[2018-10-13] MEDS: HEPARIN SODIUM, PORCINE 5000 UNITS/1 ML VIAL SQ SCH ×2 (09:00→20:36)
[2018-10-13] MEDS: SERTRALINE HCL 25 MG TABLET GT SCH (09:00)
[2018-10-13] MEDS: LEVETIRACETAM SOL (5 ML) 100 MG/ML UDC GT SCH ×2 (09:00→20:35)
--- NOTE | 2018-10-13 12:30 | NUR ---
Seen and examined by Dr. Jeff dsouza.
[2018-10-13 20:01] VITALS: BP 136/76
[2018-10-13] MEDS: POLYETHYLENE GLYCOL 3350 17 GM POWD.PACK GT SCH (22:32)
[2018-10-14] MEDS: POLYVINYL ALCOHOL 15 ML BOTTLE EACHEYE SCH ×4 (00:16→18:13)
[2018-10-14] MEDS: ALBUTEROL FS 2.5 MG/3 ML VIAL.NEB NEB SCH ×4 (01:46→20:05)
[2018-10-14] MEDS: JEVITY 1.2 CAL 1,000 ML BOTTLE GT PRN (02:13)
[2018-10-14] MEDS: MYCOPHENOLATE MOFETIL SUSP 500 MG/2.5 ML UDC GT SCH ×2 (05:23→18:13)
[2018-10-14] MEDS: CHLORHEXIDINE GLUCONATE 15 ML UDC MM SCH ×2 (05:24→18:13)
[2018-10-14 08:00] VITALS: BP 122/67
[2018-10-14] MEDS: BACLOFEN (10 MG) 10 MG TABLET GT SCH ×3 (08:30→17:00)
[2018-10-14] MEDS: FOLIC ACID 1 MG TABLET GT SCH ×2 (08:30→17:00)
[2018-10-14] MEDS: SENNOSIDES 8.6 MG TABLET GT SCH ×2 (08:30→20:29)
[2018-10-14] MEDS: SERTRALINE HCL 25 MG TABLET GT SCH (08:30)
[2018-10-14] MEDS: HEPARIN SODIUM, PORCINE 5000 UNITS/1 ML VIAL SQ SCH ×2 (08:30→20:31)
[2018-10-14] MEDS: LEVETIRACETAM SOL (5 ML) 100 MG/ML UDC GT SCH ×2 (08:30→20:29)
[2018-10-14] MEDS: HYDROGEN PEROXIDE 480 ML BOTTLE TP SCH ×2 (08:31→20:32)
[2018-10-14] MEDS: ZINC OXIDE 30 GM TUBE TP SCH (08:31)
[2018-10-14] MEDS: Z GUARD REMEDY 4 OZ OINT TP SCH ×5 (08:31→20:32)
[2018-10-14 19:55] VITALS: BP 114/72
--- NOTE | 2018-10-14 20:53 | NUR ---
RT NOTE PATIENT RECEIVED TRACHED ON COOL AEROSOL. AMBU BAG/BACK UP TRACH @ BEDSIDE. TX GIVEN, NO ADVERSE REACTIONS NOTED. SX DONE, TRACH SECURED AND PATENT. NO DISTRESS NOTED. PATIENT STABLE. WATER LEVEL GOOD. WILL MONITOR. Addendum: 10/14/18 at 2052 by ALBERTA DON RT Amended: Links added.
[2018-10-14] MEDS: POLYETHYLENE GLYCOL 3350 17 GM POWD.PACK GT SCH (22:27)
[2018-10-15] MEDS: POLYVINYL ALCOHOL 15 ML BOTTLE EACHEYE SCH ×4 (00:34→17:50)
[2018-10-15] MEDS: JEVITY 1.2 CAL 1,000 ML BOTTLE GT PRN ×2 (00:44→20:14)
[2018-10-15] MEDS: ALBUTEROL FS 2.5 MG/3 ML VIAL.NEB NEB SCH ×4 (01:56→20:22)
[2018-10-15] MEDS: CHLORHEXIDINE GLUCONATE 15 ML UDC MM SCH ×2 (05:15→17:50)
[2018-10-15] MEDS: MYCOPHENOLATE MOFETIL SUSP 500 MG/2.5 ML UDC GT SCH ×2 (05:15→17:50)
[2018-10-15 08:05] VITALS: BP 138/75
[2018-10-15] MEDS: SENNOSIDES 8.6 MG TABLET GT SCH ×2 (09:14→20:08)
[2018-10-15] MEDS: BACLOFEN (10 MG) 10 MG TABLET GT SCH ×3 (09:14→17:50)
[2018-10-15] MEDS: FOLIC ACID 1 MG TABLET GT SCH ×2 (09:14→17:50)
[2018-10-15] MEDS: SERTRALINE HCL 25 MG TABLET GT SCH (09:14)
[2018-10-15] MEDS: LEVETIRACETAM SOL (5 ML) 100 MG/ML UDC GT SCH ×2 (09:14→20:08)
[2018-10-15] MEDS: HEPARIN SODIUM, PORCINE 5000 UNITS/1 ML VIAL SQ SCH ×2 (09:14→20:58)
[2018-10-15] MEDS: Z GUARD REMEDY 4 OZ OINT TP SCH ×4 (09:15→22:10)
[2018-10-15] MEDS: HYDROGEN PEROXIDE 480 ML BOTTLE TP SCH ×2 (09:15→22:10)
[2018-10-15 19:58] VITALS: BP 119/56
[2018-10-15] MEDS: POLYETHYLENE GLYCOL 3350 17 GM POWD.PACK GT SCH (22:10)
[2018-10-16] MEDS: POLYVINYL ALCOHOL 15 ML BOTTLE EACHEYE SCH ×5 (00:08→23:31)
[2018-10-16] MEDS: ALBUTEROL FS 2.5 MG/3 ML VIAL.NEB NEB SCH ×4 (02:08→19:57)
[2018-10-16] MEDS: MYCOPHENOLATE MOFETIL SUSP 500 MG/2.5 ML UDC GT SCH ×2 (05:04→17:10)
[2018-10-16] MEDS: CHLORHEXIDINE GLUCONATE 15 ML UDC MM SCH ×2 (05:04→17:11)
[2018-10-16 07:48] VITALS: BP 113/75
[2018-10-16] MEDS: LEVETIRACETAM SOL (5 ML) 100 MG/ML UDC GT SCH ×2 (08:42→21:03)
[2018-10-16] MEDS: HYDROGEN PEROXIDE 480 ML BOTTLE TP SCH ×2 (08:42→21:06)
[2018-10-16] MEDS: FOLIC ACID 1 MG TABLET GT SCH ×2 (08:42→17:10)
[2018-10-16] MEDS: Z GUARD REMEDY 4 OZ OINT TP SCH ×4 (08:42→21:06)
[2018-10-16] MEDS: SENNOSIDES 8.6 MG TABLET GT SCH ×2 (08:42→21:03)
[2018-10-16] MEDS: SERTRALINE HCL 25 MG TABLET GT SCH (08:42)
[2018-10-16] MEDS: BACLOFEN (10 MG) 10 MG TABLET GT SCH ×3 (08:42→17:10)
[2018-10-16] MEDS: HEPARIN SODIUM, PORCINE 5000 UNITS/1 ML VIAL SQ SCH ×2 (08:42→21:06)
--- NOTE | 2018-10-16 14:40 | NUR ---
Seen and examined by Dr. Aguilar NNO given at this time.
[2018-10-16] MEDS: ACETAMINOPHEN 650 MG/20 ML UDC- SA PATIENTS-FEVER ONLY GT PRN (17:22)
--- NOTE | 2018-10-16 17:27 | NUR ---
Dr. Aguilar notified that patient has T 101, 92, 16, 99, 130/70 and with brownish secretions. Cooling measures rendered at this time. New order received to do chest Xray. Order noted and carried out. Resident's father still out of the country. Responsible democrat, Zeb Tellez notified. He said, "thank you for letting me know in case I don't answer, you have my approval to do the treatment, please do not wait until I respond". Endorsed.
[2018-10-16] MEDS: JEVITY 1.2 CAL 1,000 ML BOTTLE GT PRN (18:59)
[2018-10-16 19:54] VITALS: BP 128/70
[2018-10-16] MEDS: POLYETHYLENE GLYCOL 3350 17 GM POWD.PACK GT SCH (21:06)
--- NOTE | 2018-10-16 21:38 | NUR ---
RT NOTE PATIENT WAS RECEIVED ON 28% COOL AEROSOL. HHN INLINE TREATMENT WAS GIVEN ,NO ADVERSE REACTION NOTED. PRN SUCTION WAS DONE. TRACH TUBE PATENT AND SECURED. AMBUBAG AND SPARE TRACH AT BED SIDE. NO RESPIRATORY DISTRESS NOTED AT THIS TIME.WILL CONTINUE TO MONITOR PATIENT. Addendum: 10/16/18 at 2138 by ELIAZAR GOMES RT Amended: Links added.
[2018-10-17] MEDS: ALBUTEROL FS 2.5 MG/3 ML VIAL.NEB NEB SCH ×4 (01:33→19:37)
[2018-10-17] MEDS: POLYVINYL ALCOHOL 15 ML BOTTLE EACHEYE SCH ×4 (06:07→23:28)
[2018-10-17] MEDS: CHLORHEXIDINE GLUCONATE 15 ML UDC MM SCH ×2 (06:07→17:26)
[2018-10-17] MEDS: MYCOPHENOLATE MOFETIL SUSP 500 MG/2.5 ML UDC GT SCH ×2 (06:07→17:26)
[2018-10-17 07:22] VITALS: BP 118/69
[2018-10-17] MEDS: FOLIC ACID 1 MG TABLET GT SCH ×2 (09:00→16:50)
[2018-10-17] MEDS: SERTRALINE HCL 25 MG TABLET GT SCH (09:00)
[2018-10-17] MEDS: HYDROGEN PEROXIDE 480 ML BOTTLE TP SCH ×2 (09:00→21:09)
[2018-10-17] MEDS: HEPARIN SODIUM, PORCINE 5000 UNITS/1 ML VIAL SQ SCH ×2 (09:00→21:09)
[2018-10-17] MEDS: BACLOFEN (10 MG) 10 MG TABLET GT SCH ×3 (09:00→16:50)
[2018-10-17] MEDS: SENNOSIDES 8.6 MG TABLET GT SCH ×2 (09:00→21:08)
[2018-10-17] MEDS: Z GUARD REMEDY 4 OZ OINT TP SCH ×4 (09:00→21:09)
[2018-10-17] MEDS: LEVETIRACETAM SOL (5 ML) 100 MG/ML UDC GT SCH ×2 (09:00→21:08)
[2018-10-17] MEDS: JEVITY 1.2 CAL 1,000 ML BOTTLE GT PRN (11:39)
[2018-10-17 19:50] VITALS: BP 120/57
[2018-10-17] MEDS: POLYETHYLENE GLYCOL 3350 17 GM POWD.PACK GT SCH (21:09)
[2018-10-18] MEDS: ALBUTEROL FS 2.5 MG/3 ML VIAL.NEB NEB SCH ×4 (02:18→19:37)
[2018-10-18] MEDS: MYCOPHENOLATE MOFETIL SUSP 500 MG/2.5 ML UDC GT SCH ×2 (06:11→18:49)
[2018-10-18] MEDS: CHLORHEXIDINE GLUCONATE 15 ML UDC MM SCH ×2 (06:11→18:49)
[2018-10-18] MEDS: POLYVINYL ALCOHOL 15 ML BOTTLE EACHEYE SCH ×4 (06:11→23:21)
[2018-10-18 07:49] VITALS: BP 98/69
[2018-10-18] MEDS: FOLIC ACID 1 MG TABLET GT SCH ×2 (08:49→17:00)
[2018-10-18] MEDS: LEVETIRACETAM SOL (5 ML) 100 MG/ML UDC GT SCH ×2 (08:49→21:06)
[2018-10-18] MEDS: SENNOSIDES 8.6 MG TABLET GT SCH ×2 (08:49→21:06)
[2018-10-18] MEDS: BACLOFEN (10 MG) 10 MG TABLET GT SCH ×3 (08:49→17:00)
[2018-10-18] MEDS: SERTRALINE HCL 25 MG TABLET GT SCH (08:49)
[2018-10-18] MEDS: HEPARIN SODIUM, PORCINE 5000 UNITS/1 ML VIAL SQ SCH ×2 (08:52→21:06)
[2018-10-18] MEDS ORDERED: TUBERCULIN,PURIF.PROT.DERIV. 5 TU/0.1 ML DISP.SYRIN ID SCH (09:00)
[2018-10-18] MEDS: Z GUARD REMEDY 4 OZ OINT TP SCH ×4 (09:00→21:08)
[2018-10-18] MEDS: HYDROGEN PEROXIDE 480 ML BOTTLE TP SCH ×2 (09:00→21:08)
[2018-10-18 19:50] VITALS: BP 129/75
[2018-10-18] MEDS: POLYETHYLENE GLYCOL 3350 17 GM POWD.PACK GT SCH (21:08)
[2018-10-19] MEDS: ALBUTEROL FS 2.5 MG/3 ML VIAL.NEB NEB SCH ×4 (01:24→19:42)
[2018-10-19] MEDS: MYCOPHENOLATE MOFETIL SUSP 500 MG/2.5 ML UDC GT SCH ×2 (05:52→18:16)
[2018-10-19] MEDS: CHLORHEXIDINE GLUCONATE 15 ML UDC MM SCH ×2 (05:52→18:16)
[2018-10-19] MEDS: POLYVINYL ALCOHOL 15 ML BOTTLE EACHEYE SCH ×4 (05:52→23:29)
[2018-10-19 07:40] VITALS: BP 97/39
[2018-10-19] MEDS: LEVETIRACETAM SOL (5 ML) 100 MG/ML UDC GT SCH ×2 (08:07→20:55)
[2018-10-19] MEDS: BACLOFEN (10 MG) 10 MG TABLET GT SCH ×3 (08:07→16:28)
[2018-10-19] MEDS: FOLIC ACID 1 MG TABLET GT SCH ×2 (08:07→16:28)
[2018-10-19] MEDS: SERTRALINE HCL 25 MG TABLET GT SCH (08:08)
[2018-10-19] MEDS: SENNOSIDES 8.6 MG TABLET GT SCH ×2 (08:08→20:55)
[2018-10-19] MEDS: HEPARIN SODIUM, PORCINE 5000 UNITS/1 ML VIAL SQ SCH ×2 (08:12→20:56)
[2018-10-19] MEDS: JEVITY 1.2 CAL 1,000 ML BOTTLE GT PRN (08:24)
[2018-10-19] MEDS: HYDROGEN PEROXIDE 480 ML BOTTLE TP SCH ×2 (09:00→20:56)
[2018-10-19] MEDS: Z GUARD REMEDY 4 OZ OINT TP SCH ×4 (09:00→20:56)
[2018-10-19 20:10] VITALS: BP 129/67
[2018-10-19] MEDS: POLYETHYLENE GLYCOL 3350 17 GM POWD.PACK GT SCH (21:54)
[2018-10-20] MEDS: ALBUTEROL FS 2.5 MG/3 ML VIAL.NEB NEB SCH ×4 (01:53→20:10)
[2018-10-20] MEDS: CHLORHEXIDINE GLUCONATE 15 ML UDC MM SCH ×2 (05:48→18:39)
[2018-10-20] MEDS: MYCOPHENOLATE MOFETIL SUSP 500 MG/2.5 ML UDC GT SCH ×2 (05:48→18:39)
[2018-10-20] MEDS: POLYVINYL ALCOHOL 15 ML BOTTLE EACHEYE SCH ×4 (05:48→23:43)
[2018-10-20] MEDS: JEVITY 1.2 CAL 1,000 ML BOTTLE GT PRN (05:49)
[2018-10-20 08:00] VITALS: BP 121/51
[2018-10-20] MEDS: Z GUARD REMEDY 4 OZ OINT TP SCH ×4 (09:00→21:12)
[2018-10-20] MEDS: HYDROGEN PEROXIDE 480 ML BOTTLE TP SCH ×2 (09:00→21:12)
[2018-10-20] MEDS: FOLIC ACID 1 MG TABLET GT SCH ×2 (09:07→16:41)
[2018-10-20] MEDS: LEVETIRACETAM SOL (5 ML) 100 MG/ML UDC GT SCH ×2 (09:07→21:12)
[2018-10-20] MEDS: SERTRALINE HCL 25 MG TABLET GT SCH (09:08)
[2018-10-20] MEDS: SENNOSIDES 8.6 MG TABLET GT SCH ×2 (09:08→21:12)
[2018-10-20] MEDS: BACLOFEN (10 MG) 10 MG TABLET GT SCH ×3 (09:08→16:41)
[2018-10-20] MEDS: HEPARIN SODIUM, PORCINE 5000 UNITS/1 ML VIAL SQ SCH ×2 (09:10→21:12)
--- NOTE | 2018-10-20 12:01 | NUR ---
Seen and examined by Dr. Jeff dsouza.
[2018-10-20 20:51] VITALS: BP 115/65
[2018-10-20] MEDS: POLYETHYLENE GLYCOL 3350 17 GM POWD.PACK GT SCH (21:13)
[2018-10-21] MEDS: ALBUTEROL FS 2.5 MG/3 ML VIAL.NEB NEB SCH ×4 (02:08→20:04)
[2018-10-21] MEDS: JEVITY 1.2 CAL 1,000 ML BOTTLE GT PRN (06:00)
[2018-10-21] MEDS: CHLORHEXIDINE GLUCONATE 15 ML UDC MM SCH ×2 (06:16→17:59)
[2018-10-21] MEDS: POLYVINYL ALCOHOL 15 ML BOTTLE EACHEYE SCH ×3 (06:16→17:59)
[2018-10-21] MEDS: MYCOPHENOLATE MOFETIL SUSP 500 MG/2.5 ML UDC GT SCH ×2 (06:16→17:59)
[2018-10-21 08:29] VITALS: BP 105/58
[2018-10-21] MEDS: BACLOFEN (10 MG) 10 MG TABLET GT SCH ×3 (09:00→17:59)
[2018-10-21] MEDS: FOLIC ACID 1 MG TABLET GT SCH ×2 (09:00→17:59)
[2018-10-21] MEDS: LEVETIRACETAM SOL (5 ML) 100 MG/ML UDC GT SCH ×2 (09:00→20:12)
[2018-10-21] MEDS: SENNOSIDES 8.6 MG TABLET GT SCH ×2 (09:00→20:12)
[2018-10-21] MEDS: HEPARIN SODIUM, PORCINE 5000 UNITS/1 ML VIAL SQ SCH ×2 (09:00→20:14)
[2018-10-21] MEDS: SERTRALINE HCL 25 MG TABLET GT SCH (09:00)
[2018-10-21] MEDS: HYDROGEN PEROXIDE 480 ML BOTTLE TP SCH ×2 (09:00→20:14)
[2018-10-21] MEDS: Z GUARD REMEDY 4 OZ OINT TP SCH ×4 (09:00→20:14)
[2018-10-21 20:03] VITALS: BP 122/66
--- NOTE | 2018-10-21 20:15 | NUR ---
RT NOTE: RECEIVED TRACH PT ON COOL AEROSOL. AMBU BAG @ BEDSIDE. Q6 BREATHING TX GIVEN PER MD ORDERS WITH NO ADVERSE REACTION NOTED. SX DONE PRN. TRACH PATENT AND SECURED. NO RESP DISTRESS NOTED AT THIS TIME. WILL CONTINUE TO MONITOR PT. Addendum: 10/22/18 at 0213 by DOV GREENBERG RT Amended: Links added.
[2018-10-21] MEDS: POLYETHYLENE GLYCOL 3350 17 GM POWD.PACK GT SCH (21:37)
[2018-10-22] MEDS: POLYVINYL ALCOHOL 15 ML BOTTLE EACHEYE SCH ×5 (00:30→23:33)
[2018-10-22] MEDS: ALBUTEROL FS 2.5 MG/3 ML VIAL.NEB NEB SCH ×4 (01:23→20:14)
[2018-10-22] MEDS: JEVITY 1.2 CAL 1,000 ML BOTTLE GT PRN (05:00)
[2018-10-22] MEDS: MYCOPHENOLATE MOFETIL SUSP 500 MG/2.5 ML UDC GT SCH ×2 (05:35→17:18)
[2018-10-22] MEDS: CHLORHEXIDINE GLUCONATE 15 ML UDC MM SCH ×2 (05:35→17:18)
[2018-10-22 07:38] VITALS: BP 97/60
--- NOTE | 2018-10-22 08:20 | NUR ---
Seen and examined by Dr. Aguilar, NNO given.
[2018-10-22] MEDS: HEPARIN SODIUM, PORCINE 5000 UNITS/1 ML VIAL SQ SCH ×2 (08:28→21:13)
[2018-10-22] MEDS: FOLIC ACID 1 MG TABLET GT SCH ×2 (08:29→17:18)
[2018-10-22] MEDS: SERTRALINE HCL 25 MG TABLET GT SCH (08:29)
[2018-10-22] MEDS: SENNOSIDES 8.6 MG TABLET GT SCH ×2 (08:29→21:13)
[2018-10-22] MEDS: Z GUARD REMEDY 4 OZ OINT TP SCH ×4 (08:29→21:14)
[2018-10-22] MEDS: LEVETIRACETAM SOL (5 ML) 100 MG/ML UDC GT SCH ×2 (08:29→21:13)
[2018-10-22] MEDS: BACLOFEN (10 MG) 10 MG TABLET GT SCH ×3 (08:29→17:18)
[2018-10-22] MEDS: HYDROGEN PEROXIDE 480 ML BOTTLE TP SCH ×2 (08:29→21:13)
[2018-10-22 19:45] VITALS: BP 113/66
[2018-10-22] MEDS: POLYETHYLENE GLYCOL 3350 17 GM POWD.PACK GT SCH (21:14)
[2018-10-23] MEDS: ALBUTEROL FS 2.5 MG/3 ML VIAL.NEB NEB SCH ×4 (02:13→19:25)
[2018-10-23] MEDS: JEVITY 1.2 CAL 1,000 ML BOTTLE GT PRN (03:30)
[2018-10-23] MEDS: POLYVINYL ALCOHOL 15 ML BOTTLE EACHEYE SCH ×4 (05:54→23:33)
[2018-10-23] MEDS: CHLORHEXIDINE GLUCONATE 15 ML UDC MM SCH ×2 (05:54→17:13)
[2018-10-23] MEDS: MYCOPHENOLATE MOFETIL SUSP 500 MG/2.5 ML UDC GT SCH ×2 (05:54→17:13)
[2018-10-23 07:46] VITALS: BP 126/68
[2018-10-23] MEDS: LEVETIRACETAM SOL (5 ML) 100 MG/ML UDC GT SCH ×2 (09:01→21:19)
[2018-10-23] MEDS: FOLIC ACID 1 MG TABLET GT SCH ×2 (09:01→17:13)
[2018-10-23] MEDS: HEPARIN SODIUM, PORCINE 5000 UNITS/1 ML VIAL SQ SCH ×2 (09:01→21:20)
[2018-10-23] MEDS: BACLOFEN (10 MG) 10 MG TABLET GT SCH ×3 (09:01→17:13)
[2018-10-23] MEDS: SERTRALINE HCL 25 MG TABLET GT SCH (09:01)
[2018-10-23] MEDS: SENNOSIDES 8.6 MG TABLET GT SCH ×2 (09:01→21:19)
[2018-10-23] MEDS: Z GUARD REMEDY 4 OZ OINT TP SCH ×4 (09:02→21:20)
[2018-10-23] MEDS: HYDROGEN PEROXIDE 480 ML BOTTLE TP SCH ×2 (09:02→21:20)
[2018-10-23 19:45] VITALS: BP 112/60
[2018-10-23] MEDS: POLYETHYLENE GLYCOL 3350 17 GM POWD.PACK GT SCH (21:20)
--- NOTE | 2018-10-23 23:46 | NUR ---
Patient's dad called and asking for update. Charge nurse informed him that patient is currently sleeping and no change of condition. he stated that he is still out of town and will call again next week.
[2018-10-24] MEDS: ALBUTEROL FS 2.5 MG/3 ML VIAL.NEB NEB SCH ×4 (01:45→20:00)
[2018-10-24] MEDS: MYCOPHENOLATE MOFETIL SUSP 500 MG/2.5 ML UDC GT SCH ×2 (05:14→18:23)
[2018-10-24] MEDS: CHLORHEXIDINE GLUCONATE 15 ML UDC MM SCH ×2 (05:14→18:23)
[2018-10-24] MEDS: POLYVINYL ALCOHOL 15 ML BOTTLE EACHEYE SCH ×4 (05:14→23:56)
[2018-10-24] MEDS: JEVITY 1.2 CAL 1,000 ML BOTTLE GT PRN (06:12)
[2018-10-24 07:45] VITALS: BP 117/63
[2018-10-24] MEDS: LEVETIRACETAM SOL (5 ML) 100 MG/ML UDC GT SCH ×2 (08:43→21:01)
[2018-10-24] MEDS: FOLIC ACID 1 MG TABLET GT SCH ×2 (08:43→17:00)
[2018-10-24] MEDS: BACLOFEN (10 MG) 10 MG TABLET GT SCH ×3 (08:43→17:00)
[2018-10-24] MEDS: SERTRALINE HCL 25 MG TABLET GT SCH (08:43)
[2018-10-24] MEDS: SENNOSIDES 8.6 MG TABLET GT SCH ×2 (08:43→21:01)
[2018-10-24] MEDS: HEPARIN SODIUM, PORCINE 5000 UNITS/1 ML VIAL SQ SCH ×2 (08:44→21:02)
[2018-10-24] MEDS: Z GUARD REMEDY 4 OZ OINT TP SCH ×4 (09:00→21:02)
[2018-10-24] MEDS: HYDROGEN PEROXIDE 480 ML BOTTLE TP SCH ×2 (09:00→21:02)
--- NOTE | 2018-10-24 15:00 | NUR ---
Seen and examined by Dr. Aguilar, he said that he saw the result of Procalcitonin level <0.05, but he was not sure whether to treat patient or not because patient has low level of Procalcitonin, in which an elevated level indicates bacterial pneumonia. He ordered to send sputum culture at this time.
--- NOTE | 2018-10-24 15:37 | NUR ---
Noted an order from Dr. Aguilar to start patient on Augmentin 5oomg via GT for pneumonia. Left a message to patient's daughter Lisa and Zeb Tellez regarding the new order. Patient stable, no episode of discomfort or distress.
[2018-10-24] MEDS: AMOX / CLAV 125 MG/5 ML BOTTLE GT SCH (17:00)
[2018-10-24 20:00] VITALS: BP 133/79
--- NOTE | 2018-10-24 20:10 | NUR ---
RT NOTE: RECEIVED TRACH PT ON COOL AEROSOL. AMBU BAG @ BEDSIDE. Q6 BREATHING TX GIVEN PER MD ORDERS WITH NO ADVERSE REACTION NOTED. SX DONE PRN. TRACH PATENT AND SECURED. NO RESP DISTRESS NOTED AT THIS TIME. WILL CONTINUE TO MONITOR PT. Addendum: 10/25/18 at 0425 by DOV GREENBERG RT Amended: Links added.
[2018-10-24] MEDS: POLYETHYLENE GLYCOL 3350 17 GM POWD.PACK GT SCH (21:02)
[2018-10-25] MEDS: ALBUTEROL FS 2.5 MG/3 ML VIAL.NEB NEB SCH ×4 (01:09→19:33)
[2018-10-25] MEDS: MYCOPHENOLATE MOFETIL SUSP 500 MG/2.5 ML UDC GT SCH ×2 (05:52→18:54)
[2018-10-25] MEDS: POLYVINYL ALCOHOL 15 ML BOTTLE EACHEYE SCH ×3 (05:52→18:54)
[2018-10-25] MEDS: CHLORHEXIDINE GLUCONATE 15 ML UDC MM SCH ×2 (05:53→18:54)
[2018-10-25 07:59] VITALS: BP 110/65
[2018-10-25] MEDS: HYDROGEN PEROXIDE 480 ML BOTTLE TP SCH ×2 (09:00→21:22)
[2018-10-25] MEDS: Z GUARD REMEDY 4 OZ OINT TP SCH ×4 (09:00→21:22)
[2018-10-25] MEDS: SERTRALINE HCL 25 MG TABLET GT SCH (09:16)
[2018-10-25] MEDS: BACLOFEN (10 MG) 10 MG TABLET GT SCH ×3 (09:16→17:00)
[2018-10-25] MEDS: LEVETIRACETAM SOL (5 ML) 100 MG/ML UDC GT SCH ×2 (09:16→21:21)
[2018-10-25] MEDS: SENNOSIDES 8.6 MG TABLET GT SCH ×2 (09:16→21:21)
[2018-10-25] MEDS: FOLIC ACID 1 MG TABLET GT SCH ×2 (09:16→17:00)
[2018-10-25] MEDS: AMOX / CLAV 125 MG/5 ML BOTTLE GT SCH ×2 (09:16→17:00)
[2018-10-25] MEDS: HEPARIN SODIUM, PORCINE 5000 UNITS/1 ML VIAL SQ SCH ×2 (09:17→21:22)
--- NOTE | 2018-10-25 11:42 | NUR ---
SW communicated to pt. father about IDT mtg this Thursday10/29/2018
--- NOTE | 2018-10-25 18:30 | NUR ---
Seen and examined by Sugar Spangler NP, no new order given.
[2018-10-25 20:11] VITALS: BP 117/59
[2018-10-25] MEDS: POLYETHYLENE GLYCOL 3350 17 GM POWD.PACK GT SCH (21:22)
[2018-10-26] MEDS: POLYVINYL ALCOHOL 15 ML BOTTLE EACHEYE SCH ×4 (00:21→17:52)
[2018-10-26] MEDS: ALBUTEROL FS 2.5 MG/3 ML VIAL.NEB NEB SCH ×4 (01:08→20:06)
[2018-10-26] MEDS: MYCOPHENOLATE MOFETIL SUSP 500 MG/2.5 ML UDC GT SCH ×2 (06:09→17:52)
[2018-10-26] MEDS: CHLORHEXIDINE GLUCONATE 15 ML UDC MM SCH ×2 (06:09→17:52)
[2018-10-26 07:53] VITALS: BP 106/69
--- NOTE | 2018-10-26 09:00 | NUR ---
Seen and examined by Dr. Lubin, no new order given. Cont on ATB therapy for PNA, no adverse reaction noted. No bleeding noted. Will continue to monitor.
[2018-10-26] MEDS: FOLIC ACID 1 MG TABLET GT SCH ×2 (09:27→17:29)
[2018-10-26] MEDS: SERTRALINE HCL 25 MG TABLET GT SCH (09:27)
[2018-10-26] MEDS: LEVETIRACETAM SOL (5 ML) 100 MG/ML UDC GT SCH ×2 (09:27→21:16)
[2018-10-26] MEDS: AMOX / CLAV 125 MG/5 ML BOTTLE GT SCH ×2 (09:27→17:29)
[2018-10-26] MEDS: SENNOSIDES 8.6 MG TABLET GT SCH ×2 (09:27→21:16)
[2018-10-26] MEDS: BACLOFEN (10 MG) 10 MG TABLET GT SCH ×3 (09:27→17:29)
[2018-10-26] MEDS: Z GUARD REMEDY 4 OZ OINT TP SCH ×3 (09:28→21:17)
[2018-10-26] MEDS: HEPARIN SODIUM, PORCINE 5000 UNITS/1 ML VIAL SQ SCH ×2 (09:28→21:17)
[2018-10-26] MEDS: HYDROGEN PEROXIDE 480 ML BOTTLE TP SCH ×2 (09:28→21:17)
--- NOTE | 2018-10-26 11:00 | NUR ---
Pt's father did not respond to SW about attending IDT mtg this Sunday 10/29. SW tried calling again but pt's father VM was full. Could not leave message.
[2018-10-26] MEDS: JEVITY 1.2 CAL 1,000 ML BOTTLE GT PRN (18:32)
[2018-10-26 20:10] VITALS: BP 121/67
[2018-10-26] MEDS: POLYETHYLENE GLYCOL 3350 17 GM POWD.PACK GT SCH (21:17)
[2018-10-27] MEDS: POLYVINYL ALCOHOL 15 ML BOTTLE EACHEYE SCH ×4 (00:17→18:24)
[2018-10-27] MEDS: ALBUTEROL FS 2.5 MG/3 ML VIAL.NEB NEB SCH ×4 (01:08→20:03)
[2018-10-27] MEDS: MYCOPHENOLATE MOFETIL SUSP 500 MG/2.5 ML UDC GT SCH ×2 (05:51→18:24)
[2018-10-27] MEDS: CHLORHEXIDINE GLUCONATE 15 ML UDC MM SCH ×2 (05:51→18:24)
[2018-10-27 07:51] VITALS: BP 118/73
[2018-10-27] MEDS: HEPARIN SODIUM, PORCINE 5000 UNITS/1 ML VIAL SQ SCH ×2 (08:23→21:12)
[2018-10-27] MEDS: FOLIC ACID 1 MG TABLET GT SCH ×2 (08:26→16:11)
[2018-10-27] MEDS: AMOX / CLAV 125 MG/5 ML BOTTLE GT SCH ×2 (08:26→16:11)
[2018-10-27] MEDS: BACLOFEN (10 MG) 10 MG TABLET GT SCH ×3 (08:27→16:11)
[2018-10-27] MEDS: SERTRALINE HCL 25 MG TABLET GT SCH (08:27)
[2018-10-27] MEDS: LEVETIRACETAM SOL (5 ML) 100 MG/ML UDC GT SCH ×2 (08:27→21:12)
[2018-10-27] MEDS: SENNOSIDES 8.6 MG TABLET GT SCH ×2 (08:27→21:12)
[2018-10-27] MEDS: HYDROGEN PEROXIDE 480 ML BOTTLE TP SCH ×2 (09:55→21:12)
[2018-10-27] MEDS: Z GUARD REMEDY 4 OZ OINT TP SCH ×2 (09:55→21:14)
[2018-10-27] MEDS ORDERED: JEVITY 1.2 CAL 1,000 ML BOTTLE GT PRN (14:00)
--- NOTE | 2018-10-27 14:47 | NUR ---
Sent result of trach C&S and CXR to Dr. Aguilar, waiting for response. Resident afebrile Temp. 98.8. No tracheal bleeding noted. Will continue to monitor. Cont on Augmentin for PNA. No adverse reaction noted.
--- NOTE | 2018-10-27 19:00 | NUR ---
Sent trach C&S and CXR result to Dr. Lubin, no new order given. Continue with plan of care and Augmentin.
[2018-10-27 20:00] VITALS: BP 101/70
[2018-10-27] MEDS: POLYETHYLENE GLYCOL 3350 17 GM POWD.PACK GT SCH (21:14)
--- NOTE | 2018-10-27 21:36 | NUR ---
PATIENT FATHER CALLED AND UPDATED WITH PATIENT CONDITION,TOLD HIM PT ON AUGMENTIN ATB FOR PNA.HE SAID HE WILL BE BACK NEXT WEEK TO VISIT.
--- NOTE | 2018-10-27 22:20 | NUR ---
RECEIVED A CALL FROM [facility],HE SAID DR. CHAIDEZ ORDER MERREM 1 GM IV Q 8 HRS X 5 DAYS FOR SA PROTOCOL FOR PNA. DISCONTINUE AUGMENTIN 500MG VIA GT.ORDERS CARRIED OUT.IV LINE INSERTED TO LEFT FOOT,G# 22 D/T POOR VENOUS ACCESS.
[2018-10-27] MEDS: MEROPENEM 1 G in IV NS 0.9% 100 ML IV SCH (23:00)
[2018-10-28] MEDS: POLYVINYL ALCOHOL 15 ML BOTTLE EACHEYE SCH ×5 (00:43→23:46)
[2018-10-28] MEDS: ALBUTEROL FS 2.5 MG/3 ML VIAL.NEB NEB SCH ×4 (01:32→19:55)
[2018-10-28] MEDS: MYCOPHENOLATE MOFETIL SUSP 500 MG/2.5 ML UDC GT SCH ×2 (06:11→17:12)
[2018-10-28] MEDS: JEVITY 1.2 CAL 1,000 ML BOTTLE GT PRN (06:12)
[2018-10-28] MEDS: CHLORHEXIDINE GLUCONATE 15 ML UDC MM SCH ×2 (06:12→17:12)
[2018-10-28] MEDS: MEROPENEM 1 G in IV NS 0.9% 100 ML IV SCH ×3 (07:00→23:17)
[2018-10-28 07:34] VITALS: BP 129/60
[2018-10-28] MEDS: FOLIC ACID 1 MG TABLET GT SCH ×2 (09:08→17:12)
[2018-10-28] MEDS: SENNOSIDES 8.6 MG TABLET GT SCH ×2 (09:08→21:18)
[2018-10-28] MEDS: SERTRALINE HCL 25 MG TABLET GT SCH (09:08)
[2018-10-28] MEDS: BACLOFEN (10 MG) 10 MG TABLET GT SCH ×3 (09:08→17:12)
[2018-10-28] MEDS: LEVETIRACETAM SOL (5 ML) 100 MG/ML UDC GT SCH ×2 (09:08→21:18)
[2018-10-28] MEDS: HEPARIN SODIUM, PORCINE 5000 UNITS/1 ML VIAL SQ SCH ×2 (09:09→21:19)
[2018-10-28] MEDS: HYDROGEN PEROXIDE 480 ML BOTTLE TP SCH ×2 (09:09→21:19)
[2018-10-28] MEDS: Z GUARD REMEDY 4 OZ OINT TP SCH ×2 (09:09→21:19)
--- NOTE | 2018-10-28 12:00 | NUR ---
Dr. Aguilar came and visited, he stated " if patient will be afebrile within 48 hours, temp below 99.5, ok to discontinue merrem IV". Noted and carried out. [facility] and [facility] made aware. Patient closely monitored.
[2018-10-28 19:42] VITALS: BP 107/67
[2018-10-28] MEDS: ZINC OXIDE 30 GM TUBE TP SCH (21:19)
[2018-10-28] MEDS: POLYETHYLENE GLYCOL 3350 17 GM POWD.PACK GT SCH (21:19)
[2018-10-29] MEDS: ALBUTEROL FS 2.5 MG/3 ML VIAL.NEB NEB SCH ×4 (00:47→20:28)
[2018-10-29] MEDS: POLYVINYL ALCOHOL 15 ML BOTTLE EACHEYE SCH ×3 (05:13→18:11)
[2018-10-29] MEDS: MYCOPHENOLATE MOFETIL SUSP 500 MG/2.5 ML UDC GT SCH ×2 (05:13→18:11)
[2018-10-29] MEDS: CHLORHEXIDINE GLUCONATE 15 ML UDC MM SCH ×2 (05:13→18:11)
[2018-10-29] MEDS: JEVITY 1.2 CAL 1,000 ML BOTTLE GT PRN ×2 (05:14→19:08)
[2018-10-29] MEDS: MEROPENEM 1 G in IV NS 0.9% 100 ML IV SCH ×3 (06:36→23:00)
[2018-10-29 07:38] VITALS: BP 109/54
[2018-10-29] MEDS: HEPARIN SODIUM, PORCINE 5000 UNITS/1 ML VIAL SQ SCH ×2 (08:48→20:44)
[2018-10-29] MEDS: HYDROGEN PEROXIDE 480 ML BOTTLE TP SCH ×2 (08:53→20:44)
[2018-10-29] MEDS: SENNOSIDES 8.6 MG TABLET GT SCH ×2 (08:53→20:43)
[2018-10-29] MEDS: LEVETIRACETAM SOL (5 ML) 100 MG/ML UDC GT SCH ×2 (08:53→20:43)
[2018-10-29] MEDS: BACLOFEN (10 MG) 10 MG TABLET GT SCH ×3 (08:53→16:36)
[2018-10-29] MEDS: SERTRALINE HCL 25 MG TABLET GT SCH (08:53)
[2018-10-29] MEDS: FOLIC ACID 1 MG TABLET GT SCH ×2 (08:53→16:36)
[2018-10-29] MEDS: Z GUARD REMEDY 4 OZ OINT TP SCH ×2 (08:54→20:44)
[2018-10-29] MEDS: ZINC OXIDE 30 GM TUBE TP SCH ×2 (08:54→20:44)
--- NOTE | 2018-10-29 15:17 | NUR ---
INTERDISCIPLINARY TEAM CONFERENCE (IDT) was held today. Resident's father Dr. Darrel Swift was not able to attend today's IDT meeting. Dr. Lubin and the interdisciplinary team reviewed the current plan of care in detail. Orders as well as treatment and medications were reviewed. Resident had a dental exam done by Dr. Moncho DAUGHERTY on 10/28/2018. No new orders were given.
[2018-10-29 19:51] VITALS: BP 102/60
--- NOTE | 2018-10-29 21:19 | NUR ---
PT RCSUTTON'D ON COOL AEROSOL WITH CHARTED SETTINGS. HHN TX TOLERATED WELL. SX DONE. PT TRACH PATENT AND SECURE. AMBU BAG AT BEDSIDE. WILL CONTINUE TO MONITOR. Addendum: 10/29/18 at 2120 by USHA SUMMERS RT Amended: Links added.
[2018-10-29] MEDS: POLYETHYLENE GLYCOL 3350 17 GM POWD.PACK GT SCH (21:22)
[2018-10-30] MEDS: POLYVINYL ALCOHOL 15 ML BOTTLE EACHEYE SCH ×5 (00:05→23:23)
[2018-10-30] MEDS: ALBUTEROL FS 2.5 MG/3 ML VIAL.NEB NEB SCH ×4 (02:05→20:13)
[2018-10-30] MEDS: CHLORHEXIDINE GLUCONATE 15 ML UDC MM SCH ×2 (05:36→17:57)
[2018-10-30] MEDS: MYCOPHENOLATE MOFETIL SUSP 500 MG/2.5 ML UDC GT SCH ×2 (05:36→17:57)
[2018-10-30] MEDS: MEROPENEM 1 G in IV NS 0.9% 100 ML IV SCH ×2 (06:13→15:38)
--- NOTE | 2018-10-30 07:04 | NUR ---
PATIENT IS AFEBRILE SINCE YESTERDAY.NO SIGN AND SYMPTOMS OF INFECTION.
[2018-10-30 07:55] VITALS: BP 104/57
[2018-10-30] MEDS: LEVETIRACETAM SOL (5 ML) 100 MG/ML UDC GT SCH ×2 (09:11→20:11)
[2018-10-30] MEDS: FOLIC ACID 1 MG TABLET GT SCH ×2 (09:11→17:56)
[2018-10-30] MEDS: BACLOFEN (10 MG) 10 MG TABLET GT SCH ×3 (09:11→17:56)
[2018-10-30] MEDS: HYDROGEN PEROXIDE 480 ML BOTTLE TP SCH ×2 (09:12→20:11)
[2018-10-30] MEDS: ZINC OXIDE 30 GM TUBE TP SCH ×2 (09:12→20:11)
[2018-10-30] MEDS: SERTRALINE HCL 25 MG TABLET GT SCH (09:12)
[2018-10-30] MEDS: SENNOSIDES 8.6 MG TABLET GT SCH ×2 (09:12→20:11)
[2018-10-30] MEDS: HEPARIN SODIUM, PORCINE 5000 UNITS/1 ML VIAL SQ SCH ×2 (09:12→20:11)
[2018-10-30] MEDS: Z GUARD REMEDY 4 OZ OINT TP SCH ×2 (09:12→20:11)
--- NOTE | 2018-10-30 15:34 | NUR ---
Seen and examined by Dr. Aguilar made aware that patient is afebrile x 48 hours, according to Dr. Aguilar it is OK to discontinue ATB after completion of today's dose. Order carried out.
[2018-10-30] MEDS: JEVITY 1.2 CAL 1,000 ML BOTTLE GT PRN (15:39)
[2018-10-30 20:06] VITALS: BP 112/67
[2018-10-30] MEDS: POLYETHYLENE GLYCOL 3350 17 GM POWD.PACK GT SCH (21:15)
[2018-10-31] MEDS: ALBUTEROL FS 2.5 MG/3 ML VIAL.NEB NEB SCH ×4 (02:24→19:53)
[2018-10-31] MEDS: CHLORHEXIDINE GLUCONATE 15 ML UDC MM SCH ×2 (05:21→18:22)
[2018-10-31] MEDS: POLYVINYL ALCOHOL 15 ML BOTTLE EACHEYE SCH ×3 (05:21→18:22)
[2018-10-31] MEDS: JEVITY 1.2 CAL 1,000 ML BOTTLE GT PRN ×2 (05:21→20:37)
[2018-10-31] MEDS: MYCOPHENOLATE MOFETIL SUSP 500 MG/2.5 ML UDC GT SCH ×2 (05:21→18:22)
[2018-10-31 08:00] VITALS: BP 94/68
[2018-10-31] MEDS: BACLOFEN (10 MG) 10 MG TABLET GT SCH ×3 (08:45→16:56)
[2018-10-31] MEDS: FOLIC ACID 1 MG TABLET GT SCH ×2 (08:45→16:56)
[2018-10-31] MEDS: SENNOSIDES 8.6 MG TABLET GT SCH ×2 (08:45→20:36)
[2018-10-31] MEDS: LEVETIRACETAM SOL (5 ML) 100 MG/ML UDC GT SCH ×2 (08:45→20:36)
[2018-10-31] MEDS: HEPARIN SODIUM, PORCINE 5000 UNITS/1 ML VIAL SQ SCH ×2 (08:46→20:36)
[2018-10-31] MEDS: Z GUARD REMEDY 4 OZ OINT TP SCH ×2 (08:46→20:37)
[2018-10-31] MEDS: HYDROGEN PEROXIDE 480 ML BOTTLE TP SCH ×2 (08:46→20:37)
[2018-10-31] MEDS: SERTRALINE HCL 25 MG TABLET GT SCH (08:46)
[2018-10-31] MEDS: ZINC OXIDE 30 GM TUBE TP SCH ×2 (08:47→20:37)
[2018-10-31 20:07] VITALS: BP_SYST 113; BP_SYST 98; BP_DIAS 63; BP_DIAS 66
--- NOTE | 2018-10-31 21:35 | NUR ---
RT NOTE PATIENT WAS RECEIVED ON 28% COOL AEROSOL. HHN INLINE TREATMENT WAS GIVEN ,NO ADVERSE REACTION NOTED. PRN SUCTION WAS DONE. TRACH TUBE PATENT AND SECURED. AMBUBAG AND SPARE TRACH AT BED SIDE. NO RESPIRATORY DISTRESS NOTED AT THIS TIME.WILL CONTINUE TO MONITOR PATIENT. Addendum: 10/31/18 at 2135 by ELIAZAR GOMES RT Amended: Links added.
[2018-10-31] MEDS: POLYETHYLENE GLYCOL 3350 17 GM POWD.PACK GT SCH (22:07)
[2018-11-01] MEDS: POLYVINYL ALCOHOL 15 ML BOTTLE EACHEYE SCH ×5 (00:13→23:21)
[2018-11-01] MEDS: ALBUTEROL FS 2.5 MG/3 ML VIAL.NEB NEB SCH ×4 (01:50→20:00)
[2018-11-01] MEDS: MYCOPHENOLATE MOFETIL SUSP 500 MG/2.5 ML UDC GT SCH ×2 (06:23→17:34)
[2018-11-01] MEDS: CHLORHEXIDINE GLUCONATE 15 ML UDC MM SCH ×2 (06:23→17:34)
[2018-11-01 08:05] VITALS: BP 108/64
[2018-11-01] MEDS: SENNOSIDES 8.6 MG TABLET GT SCH ×2 (08:35→20:29)
[2018-11-01] MEDS: LEVETIRACETAM SOL (5 ML) 100 MG/ML UDC GT SCH ×2 (08:35→20:29)
[2018-11-01] MEDS: SERTRALINE HCL 25 MG TABLET GT SCH (08:35)
[2018-11-01] MEDS: BACLOFEN (10 MG) 10 MG TABLET GT SCH ×3 (08:35→17:34)
[2018-11-01] MEDS: FOLIC ACID 1 MG TABLET GT SCH ×2 (08:35→17:34)
[2018-11-01] MEDS: HEPARIN SODIUM, PORCINE 5000 UNITS/1 ML VIAL SQ SCH ×2 (08:38→20:30)
[2018-11-01] MEDS: ZINC OXIDE 30 GM TUBE TP SCH ×2 (09:00→20:30)
[2018-11-01] MEDS: Z GUARD REMEDY 4 OZ OINT TP SCH ×2 (09:00→20:30)
[2018-11-01] MEDS: HYDROGEN PEROXIDE 480 ML BOTTLE TP SCH ×2 (09:00→20:30)
[2018-11-01] MEDS: JEVITY 1.2 CAL 1,000 ML BOTTLE GT PRN (14:49)
[2018-11-01 20:13] VITALS: BP 111/62
[2018-11-01] MEDS: POLYETHYLENE GLYCOL 3350 17 GM POWD.PACK GT SCH (22:02)
[2018-11-02] MEDS: ALBUTEROL FS 2.5 MG/3 ML VIAL.NEB NEB SCH ×4 (02:28→19:19)
[2018-11-02] MEDS: MYCOPHENOLATE MOFETIL SUSP 500 MG/2.5 ML UDC GT SCH ×2 (05:38→17:03)
[2018-11-02] MEDS: POLYVINYL ALCOHOL 15 ML BOTTLE EACHEYE SCH ×4 (05:38→23:51)
[2018-11-02] MEDS: CHLORHEXIDINE GLUCONATE 15 ML UDC MM SCH ×2 (05:38→17:03)
[2018-11-02 07:48] VITALS: BP 124/68
[2018-11-02] MEDS: LEVETIRACETAM SOL (5 ML) 100 MG/ML UDC GT SCH ×2 (08:57→20:10)
[2018-11-02] MEDS: FOLIC ACID 1 MG TABLET GT SCH ×2 (08:57→17:03)
[2018-11-02] MEDS: BACLOFEN (10 MG) 10 MG TABLET GT SCH ×3 (08:57→17:03)
[2018-11-02] MEDS: SERTRALINE HCL 25 MG TABLET GT SCH (08:57)
[2018-11-02] MEDS: SENNOSIDES 8.6 MG TABLET GT SCH ×2 (08:57→20:10)
[2018-11-02] MEDS: HEPARIN SODIUM, PORCINE 5000 UNITS/1 ML VIAL SQ SCH ×2 (08:58→20:11)
[2018-11-02] MEDS: HYDROGEN PEROXIDE 480 ML BOTTLE TP SCH ×2 (09:37→20:12)
[2018-11-02] MEDS: ZINC OXIDE 30 GM TUBE TP SCH ×2 (09:37→20:12)
[2018-11-02] MEDS: Z GUARD REMEDY 4 OZ OINT TP SCH ×2 (09:37→20:12)
[2018-11-02] MEDS: JEVITY 1.2 CAL 1,000 ML BOTTLE GT PRN (10:00)
[2018-11-02 20:45] VITALS: BP 124/66
[2018-11-02] MEDS: POLYETHYLENE GLYCOL 3350 17 GM POWD.PACK GT SCH (22:08)
[2018-11-03] MEDS: ALBUTEROL FS 2.5 MG/3 ML VIAL.NEB NEB SCH ×4 (00:47→20:02)
[2018-11-03] MEDS: POLYVINYL ALCOHOL 15 ML BOTTLE EACHEYE SCH ×3 (05:31→18:36)
[2018-11-03] MEDS: MYCOPHENOLATE MOFETIL SUSP 500 MG/2.5 ML UDC GT SCH ×2 (05:31→18:36)
[2018-11-03] MEDS: JEVITY 1.2 CAL 1,000 ML BOTTLE GT PRN ×2 (05:31→18:37)
[2018-11-03] MEDS: CHLORHEXIDINE GLUCONATE 15 ML UDC MM SCH ×2 (05:31→18:36)
[2018-11-03 07:50] VITALS: BP 127/69
[2018-11-03] MEDS: SERTRALINE HCL 25 MG TABLET GT SCH (08:32)
[2018-11-03] MEDS: LEVETIRACETAM SOL (5 ML) 100 MG/ML UDC GT SCH ×2 (08:32→20:06)
[2018-11-03] MEDS: BACLOFEN (10 MG) 10 MG TABLET GT SCH ×3 (08:32→16:01)
[2018-11-03] MEDS: FOLIC ACID 1 MG TABLET GT SCH ×2 (08:32→16:01)
[2018-11-03] MEDS: SENNOSIDES 8.6 MG TABLET GT SCH ×2 (08:32→20:06)
[2018-11-03] MEDS: HYDROGEN PEROXIDE 480 ML BOTTLE TP SCH ×2 (08:33→20:07)
[2018-11-03] MEDS: ZINC OXIDE 30 GM TUBE TP SCH ×2 (08:33→20:07)
[2018-11-03] MEDS: HEPARIN SODIUM, PORCINE 5000 UNITS/1 ML VIAL SQ SCH ×2 (08:33→20:06)
[2018-11-03] MEDS: Z GUARD REMEDY 4 OZ OINT TP SCH ×2 (08:33→20:07)
[2018-11-03 20:12] VITALS: BP 130/68
[2018-11-03] MEDS: POLYETHYLENE GLYCOL 3350 17 GM POWD.PACK GT SCH (22:08)
[2018-11-04] MEDS: POLYVINYL ALCOHOL 15 ML BOTTLE EACHEYE SCH ×5 (00:40→23:18)
[2018-11-04] MEDS: ALBUTEROL FS 2.5 MG/3 ML VIAL.NEB NEB SCH ×4 (01:56→19:43)
[2018-11-04] MEDS: MYCOPHENOLATE MOFETIL SUSP 500 MG/2.5 ML UDC GT SCH ×2 (05:13→17:43)
[2018-11-04] MEDS: CHLORHEXIDINE GLUCONATE 15 ML UDC MM SCH ×2 (05:13→17:43)
[2018-11-04 07:47] VITALS: BP 130/71
[2018-11-04] MEDS: BACLOFEN (10 MG) 10 MG TABLET GT SCH ×3 (09:57→16:34)
[2018-11-04] MEDS: LEVETIRACETAM SOL (5 ML) 100 MG/ML UDC GT SCH ×2 (09:57→20:29)
[2018-11-04] MEDS: FOLIC ACID 1 MG TABLET GT SCH ×2 (09:57→16:34)
[2018-11-04] MEDS: Z GUARD REMEDY 4 OZ OINT TP SCH ×2 (09:58→20:29)
[2018-11-04] MEDS: SERTRALINE HCL 25 MG TABLET GT SCH (09:58)
[2018-11-04] MEDS: HYDROGEN PEROXIDE 480 ML BOTTLE TP SCH ×2 (09:58→20:29)
[2018-11-04] MEDS: HEPARIN SODIUM, PORCINE 5000 UNITS/1 ML VIAL SQ SCH ×2 (09:58→20:29)
[2018-11-04] MEDS: SENNOSIDES 8.6 MG TABLET GT SCH ×2 (09:58→20:29)
[2018-11-04] MEDS: ZINC OXIDE 30 GM TUBE TP SCH ×2 (09:58→20:29)
--- NOTE | 2018-11-04 16:45 | NUR ---
Seen and examined by Dr. Aguilar, reported redness in the GT site. He said the to continue with current treatment order of Z-guard. Order noted and carried out.
[2018-11-04] MEDS: JEVITY 1.2 CAL 1,000 ML BOTTLE GT PRN (18:16)
--- NOTE | 2018-11-04 19:30 | NUR ---
Seen by HA Spangler no new order.
[2018-11-04 20:25] VITALS: BP 111/67
[2018-11-04] MEDS: POLYETHYLENE GLYCOL 3350 17 GM POWD.PACK GT SCH (21:14)
[2018-11-05] MEDS: ALBUTEROL FS 2.5 MG/3 ML VIAL.NEB NEB SCH ×4 (01:11→19:52)
[2018-11-05] MEDS: POLYVINYL ALCOHOL 15 ML BOTTLE EACHEYE SCH ×4 (05:29→23:24)
[2018-11-05] MEDS: CHLORHEXIDINE GLUCONATE 15 ML UDC MM SCH ×2 (05:29→18:30)
[2018-11-05] MEDS: JEVITY 1.2 CAL 1,000 ML BOTTLE GT PRN (05:29)
[2018-11-05] MEDS: MYCOPHENOLATE MOFETIL SUSP 500 MG/2.5 ML UDC GT SCH ×2 (05:29→18:30)
[2018-11-05 07:51] VITALS: BP 110/52
--- NOTE | 2018-11-05 08:36 | NUR ---
PT RCSUTTON'D ON COOL AEROSOL WITH CHARTED SETTINGS. HHN TX TOLERATED WELL. SX DONE. PT TRACH PATENT AND SECURE. AMBU BAG AT BEDSIDE. WILL CONTINUE TO MONITOR. Addendum: 11/05/18 at 0836 by USHA SUMMERS RT Amended: Links added.
[2018-11-05] MEDS: HYDROGEN PEROXIDE 480 ML BOTTLE TP SCH ×2 (09:00→21:08)
[2018-11-05] MEDS: ZINC OXIDE 30 GM TUBE TP SCH ×2 (09:00→21:08)
[2018-11-05] MEDS: Z GUARD REMEDY 4 OZ OINT TP SCH ×2 (09:00→21:08)
[2018-11-05] MEDS: SENNOSIDES 8.6 MG TABLET GT SCH ×2 (09:50→21:07)
[2018-11-05] MEDS: SERTRALINE HCL 25 MG TABLET GT SCH (09:50)
[2018-11-05] MEDS: BACLOFEN (10 MG) 10 MG TABLET GT SCH ×3 (09:50→16:45)
[2018-11-05] MEDS: LEVETIRACETAM SOL (5 ML) 100 MG/ML UDC GT SCH ×2 (09:50→21:07)
[2018-11-05] MEDS: FOLIC ACID 1 MG TABLET GT SCH ×2 (09:50→16:44)
[2018-11-05] MEDS: HEPARIN SODIUM, PORCINE 5000 UNITS/1 ML VIAL SQ SCH ×2 (09:51→21:08)
[2018-11-05 19:34] VITALS: BP 113/64
[2018-11-05] MEDS: POLYETHYLENE GLYCOL 3350 17 GM POWD.PACK GT SCH (21:09)
[2018-11-06] MEDS: JEVITY 1.2 CAL 1,000 ML BOTTLE GT PRN ×2 (00:03→15:52)
[2018-11-06] MEDS: ALBUTEROL FS 2.5 MG/3 ML VIAL.NEB NEB SCH ×4 (01:13→19:42)
[2018-11-06] MEDS: POLYVINYL ALCOHOL 15 ML BOTTLE EACHEYE SCH ×4 (05:15→23:45)
[2018-11-06] MEDS: CHLORHEXIDINE GLUCONATE 15 ML UDC MM SCH ×2 (05:16→18:18)
[2018-11-06] MEDS: MYCOPHENOLATE MOFETIL SUSP 500 MG/2.5 ML UDC GT SCH ×2 (05:16→18:18)
[2018-11-06 07:58] VITALS: BP 102/51
[2018-11-06] MEDS: HEPARIN SODIUM, PORCINE 5000 UNITS/1 ML VIAL SQ SCH ×2 (08:23→20:36)
[2018-11-06] MEDS: FOLIC ACID 1 MG TABLET GT SCH ×2 (08:28→17:00)
[2018-11-06] MEDS: SENNOSIDES 8.6 MG TABLET GT SCH ×2 (08:29→20:36)
[2018-11-06] MEDS: LEVETIRACETAM SOL (5 ML) 100 MG/ML UDC GT SCH ×2 (08:29→20:36)
[2018-11-06] MEDS: BACLOFEN (10 MG) 10 MG TABLET GT SCH ×3 (08:29→17:00)
[2018-11-06] MEDS: SERTRALINE HCL 25 MG TABLET GT SCH (08:29)
[2018-11-06] MEDS: ZINC OXIDE 30 GM TUBE TP SCH ×2 (09:00→20:37)
[2018-11-06] MEDS: Z GUARD REMEDY 4 OZ OINT TP SCH ×2 (09:00→20:36)
[2018-11-06] MEDS: HYDROGEN PEROXIDE 480 ML BOTTLE TP SCH ×2 (09:00→20:36)
[2018-11-06 19:37] VITALS: BP 128/67
[2018-11-06 20:38] VITALS: BP 143/78
[2018-11-06] MEDS: POLYETHYLENE GLYCOL 3350 17 GM POWD.PACK GT SCH (21:06)
[2018-11-07] MEDS: ALBUTEROL FS 2.5 MG/3 ML VIAL.NEB NEB SCH ×4 (01:16→19:59)
[2018-11-07] MEDS: MYCOPHENOLATE MOFETIL SUSP 500 MG/2.5 ML UDC GT SCH ×2 (05:00→17:32)
[2018-11-07] MEDS: POLYVINYL ALCOHOL 15 ML BOTTLE EACHEYE SCH ×3 (05:00→17:32)
[2018-11-07] MEDS: CHLORHEXIDINE GLUCONATE 15 ML UDC MM SCH ×2 (05:00→17:32)
[2018-11-07] MEDS: JEVITY 1.2 CAL 1,000 ML BOTTLE GT PRN (05:00)
[2018-11-07 08:13] VITALS: BP 112/42
[2018-11-07] MEDS: SENNOSIDES 8.6 MG TABLET GT SCH ×2 (09:41→21:24)
[2018-11-07] MEDS: BACLOFEN (10 MG) 10 MG TABLET GT SCH ×3 (09:41→16:39)
[2018-11-07] MEDS: LEVETIRACETAM SOL (5 ML) 100 MG/ML UDC GT SCH ×2 (09:41→21:24)
[2018-11-07] MEDS: HEPARIN SODIUM, PORCINE 5000 UNITS/1 ML VIAL SQ SCH ×2 (09:41→21:25)
[2018-11-07] MEDS: SERTRALINE HCL 25 MG TABLET GT SCH (09:41)
[2018-11-07] MEDS: FOLIC ACID 1 MG TABLET GT SCH ×2 (09:41→16:39)
[2018-11-07] MEDS: ZINC OXIDE 30 GM TUBE TP SCH ×2 (09:42→21:25)
[2018-11-07] MEDS: Z GUARD REMEDY 4 OZ OINT TP SCH ×2 (09:42→21:25)
[2018-11-07] MEDS: HYDROGEN PEROXIDE 480 ML BOTTLE TP SCH ×2 (09:42→21:25)
[2018-11-07 20:03] VITALS: BP 119/74
[2018-11-07] MEDS: POLYETHYLENE GLYCOL 3350 17 GM POWD.PACK GT SCH (21:25)
--- NOTE | 2018-11-07 23:42 | NUR ---
PT RCSUTTON'D ON COOL AEROSOL WITH CHARTED SETTINGS. HHN TX TOLERATED WELL. SX DONE. PT TRACH PATENT AND SECURE. AMBU BAG AT BEDSIDE. WILL CONTINUE TO MONITOR. Addendum: 11/07/18 at 2342 by USHA SUMMERS RT Amended: Links added.
[2018-11-08] MEDS: POLYVINYL ALCOHOL 15 ML BOTTLE EACHEYE SCH ×5 (00:15→23:26)
[2018-11-08] MEDS: JEVITY 1.2 CAL 1,000 ML BOTTLE GT PRN ×2 (00:15→14:08)
[2018-11-08] MEDS: ALBUTEROL FS 2.5 MG/3 ML VIAL.NEB NEB SCH ×4 (01:10→19:22)
[2018-11-08] MEDS: CHLORHEXIDINE GLUCONATE 15 ML UDC MM SCH ×2 (05:24→17:57)
[2018-11-08] MEDS: MYCOPHENOLATE MOFETIL SUSP 500 MG/2.5 ML UDC GT SCH ×2 (05:24→18:06)
[2018-11-08] MEDS: HEPARIN SODIUM, PORCINE 5000 UNITS/1 ML VIAL SQ SCH ×2 (08:15→20:14)
[2018-11-08] MEDS: FOLIC ACID 1 MG TABLET GT SCH ×2 (08:19→17:57)
[2018-11-08] MEDS: BACLOFEN (10 MG) 10 MG TABLET GT SCH ×3 (08:19→17:57)
[2018-11-08] MEDS: SERTRALINE HCL 25 MG TABLET GT SCH (08:19)
[2018-11-08] MEDS: SENNOSIDES 8.6 MG TABLET GT SCH ×2 (08:19→20:13)
[2018-11-08] MEDS: LEVETIRACETAM SOL (5 ML) 100 MG/ML UDC GT SCH ×2 (08:19→20:13)
[2018-11-08] MEDS: ZINC OXIDE 30 GM TUBE TP SCH ×2 (09:58→20:14)
[2018-11-08] MEDS: Z GUARD REMEDY 4 OZ OINT TP SCH ×2 (09:58→20:14)
[2018-11-08] MEDS: HYDROGEN PEROXIDE 480 ML BOTTLE TP SCH ×2 (09:58→20:14)
[2018-11-08 13:24] VITALS: BP 114/73
[2018-11-08 20:08] VITALS: BP 123/88
[2018-11-08] MEDS: POLYETHYLENE GLYCOL 3350 17 GM POWD.PACK GT SCH (22:01)
[2018-11-09] MEDS: ALBUTEROL FS 2.5 MG/3 ML VIAL.NEB NEB SCH ×4 (00:40→19:25)
[2018-11-09] MEDS: POLYVINYL ALCOHOL 15 ML BOTTLE EACHEYE SCH ×4 (05:22→23:37)
[2018-11-09] MEDS: MYCOPHENOLATE MOFETIL SUSP 500 MG/2.5 ML UDC GT SCH ×2 (05:22→17:11)
[2018-11-09] MEDS: CHLORHEXIDINE GLUCONATE 15 ML UDC MM SCH ×2 (05:22→17:11)
[2018-11-09] MEDS: JEVITY 1.2 CAL 1,000 ML BOTTLE GT PRN ×2 (06:02→18:52)
[2018-11-09 07:42] VITALS: BP 104/61
[2018-11-09] MEDS: LEVETIRACETAM SOL (5 ML) 100 MG/ML UDC GT SCH ×2 (08:28→20:07)
[2018-11-09] MEDS: BACLOFEN (10 MG) 10 MG TABLET GT SCH ×3 (08:28→17:11)
[2018-11-09] MEDS: SERTRALINE HCL 25 MG TABLET GT SCH (08:28)
[2018-11-09] MEDS: SENNOSIDES 8.6 MG TABLET GT SCH ×2 (08:28→20:07)
[2018-11-09] MEDS: FOLIC ACID 1 MG TABLET GT SCH ×2 (08:28→17:11)
[2018-11-09] MEDS: HEPARIN SODIUM, PORCINE 5000 UNITS/1 ML VIAL SQ SCH ×2 (08:29→20:08)
[2018-11-09] MEDS: Z GUARD REMEDY 4 OZ OINT TP SCH ×2 (09:00→20:08)
[2018-11-09] MEDS: ZINC OXIDE 30 GM TUBE TP SCH ×2 (09:00→20:09)
[2018-11-09] MEDS: HYDROGEN PEROXIDE 480 ML BOTTLE TP SCH ×2 (09:00→20:08)
[2018-11-09 19:51] VITALS: BP 121/64
[2018-11-09] MEDS: POLYETHYLENE GLYCOL 3350 17 GM POWD.PACK GT SCH (22:00)
[2018-11-10] MEDS: ALBUTEROL FS 2.5 MG/3 ML VIAL.NEB NEB SCH ×4 (02:17→20:09)
[2018-11-10] MEDS: MYCOPHENOLATE MOFETIL SUSP 500 MG/2.5 ML UDC GT SCH ×2 (05:10→18:31)
[2018-11-10] MEDS: CHLORHEXIDINE GLUCONATE 15 ML UDC MM SCH ×2 (05:10→18:31)
[2018-11-10] MEDS: POLYVINYL ALCOHOL 15 ML BOTTLE EACHEYE SCH ×4 (05:10→23:37)
[2018-11-10 07:55] VITALS: BP 108/56
[2018-11-10] MEDS: FOLIC ACID 1 MG TABLET GT SCH ×2 (08:06→17:00)
[2018-11-10] MEDS: HYDROGEN PEROXIDE 480 ML BOTTLE TP SCH ×2 (08:06→20:09)
[2018-11-10] MEDS: LEVETIRACETAM SOL (5 ML) 100 MG/ML UDC GT SCH ×2 (08:06→20:08)
[2018-11-10] MEDS: SERTRALINE HCL 25 MG TABLET GT SCH (08:06)
[2018-11-10] MEDS: BACLOFEN (10 MG) 10 MG TABLET GT SCH ×3 (08:06→17:00)
[2018-11-10] MEDS: ZINC OXIDE 30 GM TUBE TP SCH ×2 (08:06→20:09)
[2018-11-10] MEDS: Z GUARD REMEDY 4 OZ OINT TP SCH ×2 (08:06→20:09)
[2018-11-10] MEDS: SENNOSIDES 8.6 MG TABLET GT SCH ×2 (08:06→20:08)
[2018-11-10] MEDS: HEPARIN SODIUM, PORCINE 5000 UNITS/1 ML VIAL SQ SCH ×2 (09:00→20:09)
--- NOTE | 2018-11-10 18:00 | NUR ---
Seen and examined by Dr. Aguilar, gave an order to apply warm compress to the L thumb redness with bleeding which is likely caused by ingrown nail. Resident's Zeb Tellez notified and he said that patient's daughter can be contacted also as she know patient better. Attempted to call (daughter) Lisa's contact information on file but no response. Resident's father, Dr. Swift remain out of the country.
[2018-11-10 20:21] VITALS: BP 127/70
[2018-11-10] MEDS: POLYETHYLENE GLYCOL 3350 17 GM POWD.PACK GT SCH (21:48)
[2018-11-11] MEDS: ALBUTEROL FS 2.5 MG/3 ML VIAL.NEB NEB SCH ×4 (01:30→19:44)
[2018-11-11] MEDS: POLYVINYL ALCOHOL 15 ML BOTTLE EACHEYE SCH ×3 (05:10→17:55)
[2018-11-11] MEDS: CHLORHEXIDINE GLUCONATE 15 ML UDC MM SCH ×2 (05:10→17:55)
[2018-11-11] MEDS: MYCOPHENOLATE MOFETIL SUSP 500 MG/2.5 ML UDC GT SCH ×2 (05:10→17:55)
[2018-11-11] MEDS: JEVITY 1.2 CAL 1,000 ML BOTTLE GT PRN (05:11)
[2018-11-11 07:40] VITALS: BP 143/97
[2018-11-11] MEDS: SERTRALINE HCL 25 MG TABLET GT SCH (09:00)
[2018-11-11] MEDS: Z GUARD REMEDY 4 OZ OINT TP SCH ×2 (09:00→21:05)
[2018-11-11] MEDS: ZINC OXIDE 30 GM TUBE TP SCH (09:00)
[2018-11-11] MEDS: BACLOFEN (10 MG) 10 MG TABLET GT SCH ×3 (09:00→17:54)
[2018-11-11] MEDS: HYDROGEN PEROXIDE 480 ML BOTTLE TP SCH ×2 (09:00→21:05)
[2018-11-11] MEDS: SENNOSIDES 8.6 MG TABLET GT SCH ×2 (09:00→21:05)
[2018-11-11] MEDS: HEPARIN SODIUM, PORCINE 5000 UNITS/1 ML VIAL SQ SCH ×2 (09:00→21:05)
[2018-11-11] MEDS: LEVETIRACETAM SOL (5 ML) 100 MG/ML UDC GT SCH ×2 (09:00→21:05)
[2018-11-11] MEDS: FOLIC ACID 1 MG TABLET GT SCH ×2 (09:00→17:54)
[2018-11-11 21:02] VITALS: BP 121/72
[2018-11-11] MEDS: POLYETHYLENE GLYCOL 3350 17 GM POWD.PACK GT SCH (21:05)
[2018-11-12] MEDS: POLYVINYL ALCOHOL 15 ML BOTTLE EACHEYE SCH ×4 (00:10→18:32)
[2018-11-12] MEDS: JEVITY 1.2 CAL 1,000 ML BOTTLE GT PRN (00:17)
[2018-11-12] MEDS: ALBUTEROL FS 2.5 MG/3 ML VIAL.NEB NEB SCH ×4 (01:22→19:49)
[2018-11-12] MEDS: MYCOPHENOLATE MOFETIL SUSP 500 MG/2.5 ML UDC GT SCH ×2 (05:24→18:32)
[2018-11-12] MEDS: CHLORHEXIDINE GLUCONATE 15 ML UDC MM SCH ×2 (05:24→18:33)
[2018-11-12 07:45] VITALS: BP 130/72
[2018-11-12] MEDS: SERTRALINE HCL 25 MG TABLET GT SCH (09:00)
[2018-11-12] MEDS: HEPARIN SODIUM, PORCINE 5000 UNITS/1 ML VIAL SQ SCH ×2 (09:00→21:11)
[2018-11-12] MEDS: BACLOFEN (10 MG) 10 MG TABLET GT SCH ×3 (09:00→17:00)
[2018-11-12] MEDS: LEVETIRACETAM SOL (5 ML) 100 MG/ML UDC GT SCH ×2 (09:00→21:10)
[2018-11-12] MEDS: Z GUARD REMEDY 4 OZ OINT TP SCH ×2 (09:00→21:11)
[2018-11-12] MEDS: HYDROGEN PEROXIDE 480 ML BOTTLE TP SCH ×2 (09:00→21:11)
[2018-11-12] MEDS: SENNOSIDES 8.6 MG TABLET GT SCH ×2 (09:00→21:10)
[2018-11-12] MEDS: FOLIC ACID 1 MG TABLET GT SCH ×2 (09:00→17:00)
[2018-11-12 19:37] VITALS: BP 90/62
[2018-11-12] MEDS: POLYETHYLENE GLYCOL 3350 17 GM POWD.PACK GT SCH (21:11)
[2018-11-13] MEDS: POLYVINYL ALCOHOL 15 ML BOTTLE EACHEYE SCH ×5 (00:15→23:55)
[2018-11-13] MEDS: ALBUTEROL FS 2.5 MG/3 ML VIAL.NEB NEB SCH ×4 (01:26→19:24)
[2018-11-13] MEDS: CHLORHEXIDINE GLUCONATE 15 ML UDC MM SCH ×2 (05:16→17:37)
[2018-11-13] MEDS: MYCOPHENOLATE MOFETIL SUSP 500 MG/2.5 ML UDC GT SCH ×2 (05:16→17:37)
[2018-11-13] MEDS: JEVITY 1.2 CAL 1,000 ML BOTTLE GT PRN ×2 (06:33→21:47)
[2018-11-13 08:08] VITALS: BP 103/73
[2018-11-13] MEDS: BACLOFEN (10 MG) 10 MG TABLET GT SCH ×3 (09:45→16:18)
[2018-11-13] MEDS: LEVETIRACETAM SOL (5 ML) 100 MG/ML UDC GT SCH ×2 (09:45→21:05)
[2018-11-13] MEDS: SERTRALINE HCL 25 MG TABLET GT SCH (09:45)
[2018-11-13] MEDS: SENNOSIDES 8.6 MG TABLET GT SCH ×2 (09:45→21:05)
[2018-11-13] MEDS: FOLIC ACID 1 MG TABLET GT SCH ×2 (09:45→16:17)
[2018-11-13] MEDS: Z GUARD REMEDY 4 OZ OINT TP SCH ×2 (09:46→21:06)
[2018-11-13] MEDS: HYDROGEN PEROXIDE 480 ML BOTTLE TP SCH ×2 (09:46→21:06)
[2018-11-13] MEDS: HEPARIN SODIUM, PORCINE 5000 UNITS/1 ML VIAL SQ SCH ×2 (09:46→21:06)
[2018-11-13 19:46] VITALS: BP 139/72
[2018-11-13] MEDS: POLYETHYLENE GLYCOL 3350 17 GM POWD.PACK GT SCH (21:06)
[2018-11-14] MEDS: ALBUTEROL FS 2.5 MG/3 ML VIAL.NEB NEB SCH ×4 (01:15→20:04)
[2018-11-14] MEDS: MYCOPHENOLATE MOFETIL SUSP 500 MG/2.5 ML UDC GT SCH ×2 (06:16→18:06)
[2018-11-14] MEDS: CHLORHEXIDINE GLUCONATE 15 ML UDC MM SCH ×2 (06:16→18:06)
[2018-11-14] MEDS: POLYVINYL ALCOHOL 15 ML BOTTLE EACHEYE SCH ×3 (06:16→18:06)
[2018-11-14 08:01] VITALS: BP 130/76
[2018-11-14] MEDS: HEPARIN SODIUM, PORCINE 5000 UNITS/1 ML VIAL SQ SCH ×2 (09:32→20:22)
[2018-11-14] MEDS: SENNOSIDES 8.6 MG TABLET GT SCH ×2 (09:32→20:22)
[2018-11-14] MEDS: LEVETIRACETAM SOL (5 ML) 100 MG/ML UDC GT SCH ×2 (09:32→20:22)
[2018-11-14] MEDS: SERTRALINE HCL 25 MG TABLET GT SCH (09:32)
[2018-11-14] MEDS: BACLOFEN (10 MG) 10 MG TABLET GT SCH ×3 (09:32→17:40)
[2018-11-14] MEDS: FOLIC ACID 1 MG TABLET GT SCH ×2 (09:32→17:40)
[2018-11-14] MEDS: Z GUARD REMEDY 4 OZ OINT TP SCH ×2 (09:33→20:24)
[2018-11-14] MEDS: HYDROGEN PEROXIDE 480 ML BOTTLE TP SCH ×2 (09:33→20:24)
[2018-11-14] MEDS: JEVITY 1.2 CAL 1,000 ML BOTTLE GT PRN (15:10)
[2018-11-14 19:48] VITALS: BP 131/71
[2018-11-14] MEDS: POLYETHYLENE GLYCOL 3350 17 GM POWD.PACK GT SCH (21:45)
[2018-11-15] MEDS: POLYVINYL ALCOHOL 15 ML BOTTLE EACHEYE SCH ×4 (00:12→18:43)
[2018-11-15] MEDS: ALBUTEROL FS 2.5 MG/3 ML VIAL.NEB NEB SCH ×4 (01:50→19:28)
[2018-11-15] MEDS: CHLORHEXIDINE GLUCONATE 15 ML UDC MM SCH ×2 (06:04→18:43)
[2018-11-15] MEDS: MYCOPHENOLATE MOFETIL SUSP 500 MG/2.5 ML UDC GT SCH ×2 (06:04→18:43)
[2018-11-15] MEDS: JEVITY 1.2 CAL 1,000 ML BOTTLE GT PRN (06:33)
[2018-11-15 07:54] VITALS: BP 121/70
[2018-11-15] MEDS: HYDROGEN PEROXIDE 480 ML BOTTLE TP SCH ×2 (09:00→20:25)
[2018-11-15] MEDS: Z GUARD REMEDY 4 OZ OINT TP SCH ×2 (09:00→20:25)
[2018-11-15] MEDS: BACLOFEN (10 MG) 10 MG TABLET GT SCH ×3 (09:45→16:34)
[2018-11-15] MEDS: HEPARIN SODIUM, PORCINE 5000 UNITS/1 ML VIAL SQ SCH ×2 (09:45→20:25)
[2018-11-15] MEDS: LEVETIRACETAM SOL (5 ML) 100 MG/ML UDC GT SCH ×2 (09:45→20:23)
[2018-11-15] MEDS: SENNOSIDES 8.6 MG TABLET GT SCH ×2 (09:45→20:23)
[2018-11-15] MEDS: FOLIC ACID 1 MG TABLET GT SCH ×2 (09:45→16:34)
[2018-11-15] MEDS: SERTRALINE HCL 25 MG TABLET GT SCH (09:45)
[2018-11-15 20:14] VITALS: BP 120/76
[2018-11-15] MEDS: POLYETHYLENE GLYCOL 3350 17 GM POWD.PACK GT SCH (21:42)
[2018-11-16] MEDS: POLYVINYL ALCOHOL 15 ML BOTTLE EACHEYE SCH ×4 (00:22→17:14)
[2018-11-16] MEDS: ALBUTEROL FS 2.5 MG/3 ML VIAL.NEB NEB SCH ×4 (01:17→19:13)
[2018-11-16] MEDS: MYCOPHENOLATE MOFETIL SUSP 500 MG/2.5 ML UDC GT SCH ×2 (05:11→17:14)
[2018-11-16] MEDS: CHLORHEXIDINE GLUCONATE 15 ML UDC MM SCH ×2 (05:12→17:14)
[2018-11-16 07:34] VITALS: BP 131/73
[2018-11-16] MEDS: BACLOFEN (10 MG) 10 MG TABLET GT SCH ×3 (08:58→17:13)
[2018-11-16] MEDS: LEVETIRACETAM SOL (5 ML) 100 MG/ML UDC GT SCH ×2 (08:58→20:10)
[2018-11-16] MEDS: FOLIC ACID 1 MG TABLET GT SCH ×2 (08:58→17:13)
[2018-11-16] MEDS: Z GUARD REMEDY 4 OZ OINT TP SCH ×2 (08:59→20:13)
[2018-11-16] MEDS: SERTRALINE HCL 25 MG TABLET GT SCH (08:59)
[2018-11-16] MEDS: SENNOSIDES 8.6 MG TABLET GT SCH ×2 (08:59→20:10)
[2018-11-16] MEDS: HEPARIN SODIUM, PORCINE 5000 UNITS/1 ML VIAL SQ SCH ×2 (08:59→20:11)
[2018-11-16] MEDS: HYDROGEN PEROXIDE 480 ML BOTTLE TP SCH ×2 (08:59→20:12)
[2018-11-16] MEDS: JEVITY 1.2 CAL 1,000 ML BOTTLE GT PRN (13:00)
[2018-11-16 20:25] VITALS: BP 121/54
[2018-11-16 20:55] VITALS: BP 103/51
[2018-11-16] MEDS: POLYETHYLENE GLYCOL 3350 17 GM POWD.PACK GT SCH (21:41)
[2018-11-17] MEDS: POLYVINYL ALCOHOL 15 ML BOTTLE EACHEYE SCH ×4 (00:07→17:23)
[2018-11-17] MEDS: ALBUTEROL FS 2.5 MG/3 ML VIAL.NEB NEB SCH ×4 (00:50→20:28)
[2018-11-17] MEDS: JEVITY 1.2 CAL 1,000 ML BOTTLE GT PRN ×2 (03:36→19:04)
[2018-11-17] MEDS: MYCOPHENOLATE MOFETIL SUSP 500 MG/2.5 ML UDC GT SCH ×2 (05:08→17:23)
[2018-11-17] MEDS: CHLORHEXIDINE GLUCONATE 15 ML UDC MM SCH ×2 (05:09→17:23)
[2018-11-17 08:08] VITALS: BP 99/54
[2018-11-17] MEDS: BACLOFEN (10 MG) 10 MG TABLET GT SCH ×3 (08:35→16:21)
[2018-11-17] MEDS: SENNOSIDES 8.6 MG TABLET GT SCH ×2 (08:35→21:31)
[2018-11-17] MEDS: SERTRALINE HCL 25 MG TABLET GT SCH (08:35)
[2018-11-17] MEDS: FOLIC ACID 1 MG TABLET GT SCH ×2 (08:35→16:21)
[2018-11-17] MEDS: LEVETIRACETAM SOL (5 ML) 100 MG/ML UDC GT SCH ×2 (08:35→21:31)
[2018-11-17] MEDS: HEPARIN SODIUM, PORCINE 5000 UNITS/1 ML VIAL SQ SCH ×2 (08:36→21:33)
[2018-11-17] MEDS: HYDROGEN PEROXIDE 480 ML BOTTLE TP SCH ×2 (09:00→21:33)
[2018-11-17] MEDS: Z GUARD REMEDY 4 OZ OINT TP SCH ×2 (09:00→21:33)
[2018-11-17 20:12] VITALS: BP 103/65
--- NOTE | 2018-11-17 20:38 | NUR ---
RECEIVED TRACH PT ON COOL AEROSOL 28% 5L. AMBU BAG @ BEDSIDE. Q6 BREATHING TX GIVEN PER MD ORDERS WITH NO ADVERSE REACTION NOTED. SX DONE PRN. TRACH PATENT AND SECURED. NO RESP DISTRESS NOTED AT THIS TIME. WILL CONTINUE TO MONITOR PT.
[2018-11-17] MEDS: POLYETHYLENE GLYCOL 3350 17 GM POWD.PACK GT SCH (21:33)
[2018-11-18] MEDS: POLYVINYL ALCOHOL 15 ML BOTTLE EACHEYE SCH ×4 (00:12→18:00)
[2018-11-18] MEDS: ALBUTEROL FS 2.5 MG/3 ML VIAL.NEB NEB SCH ×4 (01:57→19:29)
[2018-11-18] MEDS: CHLORHEXIDINE GLUCONATE 15 ML UDC MM SCH ×2 (05:36→18:00)
[2018-11-18] MEDS: MYCOPHENOLATE MOFETIL SUSP 500 MG/2.5 ML UDC GT SCH ×2 (05:36→18:00)
[2018-11-18 07:55] VITALS: BP 116/66
[2018-11-18] MEDS: HYDROGEN PEROXIDE 480 ML BOTTLE TP SCH ×2 (09:00→21:17)
[2018-11-18] MEDS: Z GUARD REMEDY 4 OZ OINT TP SCH ×2 (09:00→21:17)
[2018-11-18] MEDS: HEPARIN SODIUM, PORCINE 5000 UNITS/1 ML VIAL SQ SCH ×2 (09:05→21:17)
[2018-11-18] MEDS: BACLOFEN (10 MG) 10 MG TABLET GT SCH ×3 (09:05→16:22)
[2018-11-18] MEDS: SERTRALINE HCL 25 MG TABLET GT SCH (09:05)
[2018-11-18] MEDS: SENNOSIDES 8.6 MG TABLET GT SCH ×2 (09:05→21:16)
[2018-11-18] MEDS: LEVETIRACETAM SOL (5 ML) 100 MG/ML UDC GT SCH ×2 (09:05→21:16)
[2018-11-18] MEDS: FOLIC ACID 1 MG TABLET GT SCH ×2 (09:05→16:22)
[2018-11-18] MEDS: JEVITY 1.2 CAL 1,000 ML BOTTLE GT PRN (12:13)
--- NOTE | 2018-11-18 14:06 | NUR ---
HILTON communicated with pt.'s father to inform him about this Sunday 11/19 IDT mtg
[2018-11-18 19:54] VITALS: BP 128/61
[2018-11-18] MEDS: POLYETHYLENE GLYCOL 3350 17 GM POWD.PACK GT SCH (21:17)
[2018-11-19] MEDS: POLYVINYL ALCOHOL 15 ML BOTTLE EACHEYE SCH ×4 (00:29→17:13)
[2018-11-19] MEDS: ALBUTEROL FS 2.5 MG/3 ML VIAL.NEB NEB SCH ×4 (01:27→20:23)
[2018-11-19] MEDS: JEVITY 1.2 CAL 1,000 ML BOTTLE GT PRN (02:50)
[2018-11-19] MEDS: CHLORHEXIDINE GLUCONATE 15 ML UDC MM SCH ×2 (05:58→17:13)
[2018-11-19] MEDS: MYCOPHENOLATE MOFETIL SUSP 500 MG/2.5 ML UDC GT SCH ×2 (05:58→17:13)
[2018-11-19 07:54] VITALS: BP 124/86
[2018-11-19] MEDS: HEPARIN SODIUM, PORCINE 5000 UNITS/1 ML VIAL SQ SCH ×2 (09:00→21:32)
[2018-11-19] MEDS: LEVETIRACETAM SOL (5 ML) 100 MG/ML UDC GT SCH ×2 (09:00→21:31)
[2018-11-19] MEDS: BACLOFEN (10 MG) 10 MG TABLET GT SCH ×3 (09:00→17:13)
[2018-11-19] MEDS: Z GUARD REMEDY 4 OZ OINT TP SCH ×2 (09:00→21:32)
[2018-11-19] MEDS: HYDROGEN PEROXIDE 480 ML BOTTLE TP SCH ×2 (09:00→21:32)
[2018-11-19] MEDS: SENNOSIDES 8.6 MG TABLET GT SCH ×2 (09:00→21:31)
[2018-11-19] MEDS: SERTRALINE HCL 25 MG TABLET GT SCH (09:00)
[2018-11-19] MEDS: FOLIC ACID 1 MG TABLET GT SCH ×2 (09:00→17:13)
[2018-11-19 20:15] VITALS: BP 125/78
[2018-11-19] MEDS: POLYETHYLENE GLYCOL 3350 17 GM POWD.PACK GT SCH (21:32)
[2018-11-20] MEDS: POLYVINYL ALCOHOL 15 ML BOTTLE EACHEYE SCH ×5 (00:49→23:43)
[2018-11-20] MEDS: ALBUTEROL FS 2.5 MG/3 ML VIAL.NEB NEB SCH ×4 (02:19→20:09)
[2018-11-20] MEDS: CHLORHEXIDINE GLUCONATE 15 ML UDC MM SCH ×2 (05:38→17:57)
[2018-11-20] MEDS: MYCOPHENOLATE MOFETIL SUSP 500 MG/2.5 ML UDC GT SCH ×2 (05:38→17:57)
[2018-11-20] MEDS: JEVITY 1.2 CAL 1,000 ML BOTTLE GT PRN (05:59)
[2018-11-20 07:55] VITALS: BP 116/76
[2018-11-20] MEDS: FOLIC ACID 1 MG TABLET GT SCH ×2 (09:50→17:57)
[2018-11-20] MEDS: LEVETIRACETAM SOL (5 ML) 100 MG/ML UDC GT SCH ×2 (09:50→21:11)
[2018-11-20] MEDS: BACLOFEN (10 MG) 10 MG TABLET GT SCH ×3 (09:51→17:57)
[2018-11-20] MEDS: SERTRALINE HCL 25 MG TABLET GT SCH (09:51)
[2018-11-20] MEDS: HEPARIN SODIUM, PORCINE 5000 UNITS/1 ML VIAL SQ SCH ×2 (09:51→21:11)
[2018-11-20] MEDS: SENNOSIDES 8.6 MG TABLET GT SCH ×2 (09:51→21:11)
[2018-11-20] MEDS: Z GUARD REMEDY 4 OZ OINT TP SCH ×2 (09:51→21:11)
[2018-11-20] MEDS: HYDROGEN PEROXIDE 480 ML BOTTLE TP SCH ×2 (09:51→21:11)
[2018-11-20 20:24] VITALS: BP 112/64
[2018-11-20] MEDS: POLYETHYLENE GLYCOL 3350 17 GM POWD.PACK GT SCH (21:11)
[2018-11-21] MEDS: ALBUTEROL FS 2.5 MG/3 ML VIAL.NEB NEB SCH ×4 (01:44→20:00)
[2018-11-21] MEDS: POLYVINYL ALCOHOL 15 ML BOTTLE EACHEYE SCH ×4 (05:31→23:52)
[2018-11-21] MEDS: MYCOPHENOLATE MOFETIL SUSP 500 MG/2.5 ML UDC GT SCH ×2 (05:31→17:32)
[2018-11-21] MEDS: CHLORHEXIDINE GLUCONATE 15 ML UDC MM SCH ×2 (05:31→17:32)
[2018-11-21] MEDS: JEVITY 1.2 CAL 1,000 ML BOTTLE GT PRN ×2 (05:37→18:28)
[2018-11-21 07:51] VITALS: BP 136/78
[2018-11-21] MEDS: BACLOFEN (10 MG) 10 MG TABLET GT SCH ×3 (09:00→16:50)
[2018-11-21] MEDS: LEVETIRACETAM SOL (5 ML) 100 MG/ML UDC GT SCH ×2 (09:00→20:23)
[2018-11-21] MEDS: FOLIC ACID 1 MG TABLET GT SCH ×2 (09:00→16:50)
[2018-11-21] MEDS: SENNOSIDES 8.6 MG TABLET GT SCH ×2 (09:00→20:23)
[2018-11-21] MEDS: SERTRALINE HCL 25 MG TABLET GT SCH (09:00)
--- NOTE | 2018-11-21 09:00 | NUR ---
Seen and examined by Dr. Aguilar, no new order given.
[2018-11-21] MEDS: HEPARIN SODIUM, PORCINE 5000 UNITS/1 ML VIAL SQ SCH ×2 (09:01→20:24)
[2018-11-21] MEDS: HYDROGEN PEROXIDE 480 ML BOTTLE TP SCH ×2 (09:01→20:26)
[2018-11-21] MEDS: Z GUARD REMEDY 4 OZ OINT TP SCH ×2 (09:01→20:26)
[2018-11-21 20:09] VITALS: BP 101/72
[2018-11-21] MEDS: POLYETHYLENE GLYCOL 3350 17 GM POWD.PACK GT SCH (22:00)
[2018-11-22] MEDS: ALBUTEROL FS 2.5 MG/3 ML VIAL.NEB NEB SCH ×4 (01:33→20:11)
[2018-11-22] MEDS: MYCOPHENOLATE MOFETIL SUSP 500 MG/2.5 ML UDC GT SCH ×2 (05:13→17:10)
[2018-11-22] MEDS: CHLORHEXIDINE GLUCONATE 15 ML UDC MM SCH ×2 (05:13→17:10)
[2018-11-22] MEDS: POLYVINYL ALCOHOL 15 ML BOTTLE EACHEYE SCH ×3 (05:13→17:10)
[2018-11-22 07:33] VITALS: BP 118/74
[2018-11-22] MEDS: HYDROGEN PEROXIDE 480 ML BOTTLE TP SCH ×2 (09:33→20:23)
[2018-11-22] MEDS: FOLIC ACID 1 MG TABLET GT SCH ×2 (09:33→17:10)
[2018-11-22] MEDS: LEVETIRACETAM SOL (5 ML) 100 MG/ML UDC GT SCH ×2 (09:33→20:20)
[2018-11-22] MEDS: SERTRALINE HCL 25 MG TABLET GT SCH (09:33)
[2018-11-22] MEDS: BACLOFEN (10 MG) 10 MG TABLET GT SCH ×3 (09:33→17:10)
[2018-11-22] MEDS: SENNOSIDES 8.6 MG TABLET GT SCH ×2 (09:33→20:20)
[2018-11-22] MEDS: HEPARIN SODIUM, PORCINE 5000 UNITS/1 ML VIAL SQ SCH ×2 (09:34→20:22)
[2018-11-22] MEDS: Z GUARD REMEDY 4 OZ OINT TP SCH ×2 (09:34→20:23)
[2018-11-22] MEDS: JEVITY 1.2 CAL 1,000 ML BOTTLE GT PRN (16:12)
[2018-11-22 20:16] VITALS: BP 122/76
[2018-11-22] MEDS: POLYETHYLENE GLYCOL 3350 17 GM POWD.PACK GT SCH (21:10)
[2018-11-23] MEDS: POLYVINYL ALCOHOL 15 ML BOTTLE EACHEYE SCH ×4 (00:52→17:05)
[2018-11-23] MEDS: ALBUTEROL FS 2.5 MG/3 ML VIAL.NEB NEB SCH ×4 (01:16→19:53)
[2018-11-23] MEDS: MYCOPHENOLATE MOFETIL SUSP 500 MG/2.5 ML UDC GT SCH ×2 (05:16→17:05)
[2018-11-23] MEDS: CHLORHEXIDINE GLUCONATE 15 ML UDC MM SCH ×2 (05:17→17:05)
[2018-11-23 08:03] VITALS: BP 122/84
[2018-11-23] MEDS: BACLOFEN (10 MG) 10 MG TABLET GT SCH ×3 (08:53→17:05)
[2018-11-23] MEDS: FOLIC ACID 1 MG TABLET GT SCH ×2 (08:53→17:05)
[2018-11-23] MEDS: SENNOSIDES 8.6 MG TABLET GT SCH ×2 (08:53→20:50)
[2018-11-23] MEDS: SERTRALINE HCL 25 MG TABLET GT SCH (08:53)
[2018-11-23] MEDS: LEVETIRACETAM SOL (5 ML) 100 MG/ML UDC GT SCH ×2 (08:53→20:49)
[2018-11-23] MEDS: Z GUARD REMEDY 4 OZ OINT TP SCH ×2 (08:54→20:52)
[2018-11-23] MEDS: HYDROGEN PEROXIDE 480 ML BOTTLE TP SCH ×2 (08:54→20:51)
[2018-11-23] MEDS: HEPARIN SODIUM, PORCINE 5000 UNITS/1 ML VIAL SQ SCH ×2 (08:54→20:50)
[2018-11-23 20:14] VITALS: BP 116/62
[2018-11-23] MEDS: POLYETHYLENE GLYCOL 3350 17 GM POWD.PACK GT SCH (21:26)
[2018-11-24] MEDS: POLYVINYL ALCOHOL 15 ML BOTTLE EACHEYE SCH ×4 (00:42→18:06)
[2018-11-24] MEDS: JEVITY 1.2 CAL 1,000 ML BOTTLE GT PRN ×2 (01:30→16:37)
[2018-11-24] MEDS: ALBUTEROL FS 2.5 MG/3 ML VIAL.NEB NEB SCH ×4 (01:39→19:20)
[2018-11-24] MEDS: CHLORHEXIDINE GLUCONATE 15 ML UDC MM SCH ×2 (05:04→18:06)
[2018-11-24] MEDS: MYCOPHENOLATE MOFETIL SUSP 500 MG/2.5 ML UDC GT SCH ×2 (05:04→18:06)
--- NOTE | 2018-11-24 07:50 | NUR ---
RT PATIENT REC'D TRACHED ON COOL AEROSOL JIMBO WELL. TRACH SECURE AND IN PROPER POSITION. PATIENT SUCTIONED WITH MOD AMT PALE SEMITHICK SECRETIONS. AMBU BAG AT HOB Addendum: 11/24/18 at 0918 by TAMIKA APPIAH RT Amended: Links added.
[2018-11-24 07:55] VITALS: BP 130/89
[2018-11-24] MEDS: FOLIC ACID 1 MG TABLET GT SCH ×2 (08:29→16:35)
[2018-11-24] MEDS: SENNOSIDES 8.6 MG TABLET GT SCH ×2 (08:29→21:21)
[2018-11-24] MEDS: SERTRALINE HCL 25 MG TABLET GT SCH (08:29)
[2018-11-24] MEDS: BACLOFEN (10 MG) 10 MG TABLET GT SCH ×3 (08:29→16:35)
[2018-11-24] MEDS: HEPARIN SODIUM, PORCINE 5000 UNITS/1 ML VIAL SQ SCH ×2 (08:29→21:22)
[2018-11-24] MEDS: LEVETIRACETAM SOL (5 ML) 100 MG/ML UDC GT SCH ×2 (08:29→21:21)
[2018-11-24] MEDS: Z GUARD REMEDY 4 OZ OINT TP SCH ×2 (09:00→21:22)
[2018-11-24] MEDS: HYDROGEN PEROXIDE 480 ML BOTTLE TP SCH ×2 (09:00→21:22)
[2018-11-24 20:10] VITALS: BP 125/73
[2018-11-24] MEDS: POLYETHYLENE GLYCOL 3350 17 GM POWD.PACK GT SCH (21:22)
[2018-11-25] MEDS: POLYVINYL ALCOHOL 15 ML BOTTLE EACHEYE SCH ×4 (00:15→17:53)
[2018-11-25] MEDS: ALBUTEROL FS 2.5 MG/3 ML VIAL.NEB NEB SCH ×4 (01:32→20:20)
[2018-11-25] MEDS: MYCOPHENOLATE MOFETIL SUSP 500 MG/2.5 ML UDC GT SCH ×2 (05:43→17:53)
[2018-11-25] MEDS: JEVITY 1.2 CAL 1,000 ML BOTTLE GT PRN (05:43)
[2018-11-25] MEDS: CHLORHEXIDINE GLUCONATE 15 ML UDC MM SCH ×2 (05:43→17:53)
[2018-11-25 08:00] VITALS: BP 134/71
[2018-11-25] MEDS: LEVETIRACETAM SOL (5 ML) 100 MG/ML UDC GT SCH ×2 (09:00→21:21)
[2018-11-25] MEDS: SERTRALINE HCL 25 MG TABLET GT SCH (09:00)
[2018-11-25] MEDS: HYDROGEN PEROXIDE 480 ML BOTTLE TP SCH ×2 (09:00→21:22)
[2018-11-25] MEDS: Z GUARD REMEDY 4 OZ OINT TP SCH ×2 (09:00→21:22)
[2018-11-25] MEDS: FOLIC ACID 1 MG TABLET GT SCH ×2 (09:00→17:53)
[2018-11-25] MEDS: HEPARIN SODIUM, PORCINE 5000 UNITS/1 ML VIAL SQ SCH ×2 (09:00→21:22)
[2018-11-25] MEDS: BACLOFEN (10 MG) 10 MG TABLET GT SCH ×3 (09:00→17:53)
[2018-11-25] MEDS: SENNOSIDES 8.6 MG TABLET GT SCH ×2 (09:00→21:21)
[2018-11-25 20:01] VITALS: BP 122/80
[2018-11-25] MEDS: POLYETHYLENE GLYCOL 3350 17 GM POWD.PACK GT SCH (21:22)
[2018-11-26] MEDS: POLYVINYL ALCOHOL 15 ML BOTTLE EACHEYE SCH ×4 (00:05→17:13)
[2018-11-26] MEDS: ALBUTEROL FS 2.5 MG/3 ML VIAL.NEB NEB SCH ×4 (02:00→19:38)
[2018-11-26] MEDS: CHLORHEXIDINE GLUCONATE 15 ML UDC MM SCH ×2 (05:17→17:13)
[2018-11-26] MEDS: MYCOPHENOLATE MOFETIL SUSP 500 MG/2.5 ML UDC GT SCH ×2 (05:17→17:13)
[2018-11-26] MEDS: JEVITY 1.2 CAL 1,000 ML BOTTLE GT PRN ×2 (05:54→17:13)
[2018-11-26 07:24] VITALS: BP 111/76
[2018-11-26] MEDS: SERTRALINE HCL 25 MG TABLET GT SCH (09:12)
[2018-11-26] MEDS: SENNOSIDES 8.6 MG TABLET GT SCH ×2 (09:12→21:01)
[2018-11-26] MEDS: HYDROGEN PEROXIDE 480 ML BOTTLE TP SCH ×2 (09:12→21:02)
[2018-11-26] MEDS: BACLOFEN (10 MG) 10 MG TABLET GT SCH ×3 (09:12→17:13)
[2018-11-26] MEDS: FOLIC ACID 1 MG TABLET GT SCH ×2 (09:12→17:13)
[2018-11-26] MEDS: LEVETIRACETAM SOL (5 ML) 100 MG/ML UDC GT SCH ×2 (09:12→21:01)
[2018-11-26] MEDS: HEPARIN SODIUM, PORCINE 5000 UNITS/1 ML VIAL SQ SCH ×2 (09:12→21:02)
[2018-11-26] MEDS: Z GUARD REMEDY 4 OZ OINT TP SCH ×2 (09:12→21:02)
[2018-11-26 20:11] VITALS: BP 121/68
[2018-11-26] MEDS: POLYETHYLENE GLYCOL 3350 17 GM POWD.PACK GT SCH (21:02)
[2018-11-26] MEDS: ACETAMINOPHEN 650 MG/20 ML UDC- SA PATIENTS-PAIN ONLY GT PRN (22:29)
[2018-11-27] MEDS: POLYVINYL ALCOHOL 15 ML BOTTLE EACHEYE SCH ×4 (00:23→18:03)
[2018-11-27] MEDS: ALBUTEROL FS 2.5 MG/3 ML VIAL.NEB NEB SCH ×4 (02:19→19:28)
[2018-11-27] MEDS: MYCOPHENOLATE MOFETIL SUSP 500 MG/2.5 ML UDC GT SCH ×2 (05:52→18:03)
[2018-11-27] MEDS: CHLORHEXIDINE GLUCONATE 15 ML UDC MM SCH ×2 (05:52→18:03)
[2018-11-27 07:49] VITALS: BP 125/79
[2018-11-27] MEDS: BACLOFEN (10 MG) 10 MG TABLET GT SCH ×3 (09:00→17:00)
[2018-11-27] MEDS: SENNOSIDES 8.6 MG TABLET GT SCH ×2 (09:00→21:43)
[2018-11-27] MEDS: LEVETIRACETAM SOL (5 ML) 100 MG/ML UDC GT SCH ×2 (09:00→21:43)
[2018-11-27] MEDS: HYDROGEN PEROXIDE 480 ML BOTTLE TP SCH ×2 (09:00→21:44)
[2018-11-27] MEDS: Z GUARD REMEDY 4 OZ OINT TP SCH ×2 (09:00→21:44)
[2018-11-27] MEDS: HEPARIN SODIUM, PORCINE 5000 UNITS/1 ML VIAL SQ SCH ×2 (09:00→21:51)
[2018-11-27] MEDS: FOLIC ACID 1 MG TABLET GT SCH ×2 (09:00→17:00)
[2018-11-27] MEDS: SERTRALINE HCL 25 MG TABLET GT SCH (09:00)
--- NOTE | 2018-11-27 17:39 | NUR ---
Seen by Dr Aguilar. Notified him that pt had a temp of 99 F this morning and 100 F last night as endorsed by night charge nurse. No new order.
[2018-11-27 20:20] VITALS: BP 106/45
[2018-11-27] MEDS: POLYETHYLENE GLYCOL 3350 17 GM POWD.PACK GT SCH (21:44)
[2018-11-28] MEDS: POLYVINYL ALCOHOL 15 ML BOTTLE EACHEYE SCH ×5 (00:29→23:14)
[2018-11-28] MEDS: ALBUTEROL FS 2.5 MG/3 ML VIAL.NEB NEB SCH ×4 (01:25→20:28)
[2018-11-28] MEDS: JEVITY 1.2 CAL 1,000 ML BOTTLE GT PRN (03:44)
[2018-11-28] MEDS: MYCOPHENOLATE MOFETIL SUSP 500 MG/2.5 ML UDC GT SCH ×2 (06:01→17:02)
[2018-11-28] MEDS: CHLORHEXIDINE GLUCONATE 15 ML UDC MM SCH ×2 (06:01→17:02)
--- NOTE | 2018-11-28 07:50 | NUR ---
RT PATIENT REC'D TRACHED ON COOL AEROSOL JIMBO WELL. TRACH SECURE AND IN PROPER POSITION. PATIENT SUCTIONED WITH MOD AMT PALE SEMITHICK SECRETIONS. AMBU BAG AT HOB Addendum: 11/28/18 at 1559 by TAMIKA APPIAH RT Amended: Links added.
[2018-11-28 08:12] VITALS: BP 121/71
[2018-11-28] MEDS: BACLOFEN (10 MG) 10 MG TABLET GT SCH ×3 (09:31→17:02)
[2018-11-28] MEDS: FOLIC ACID 1 MG TABLET GT SCH ×2 (09:31→17:02)
[2018-11-28] MEDS: SENNOSIDES 8.6 MG TABLET GT SCH ×2 (09:31→21:08)
[2018-11-28] MEDS: SERTRALINE HCL 25 MG TABLET GT SCH (09:31)
[2018-11-28] MEDS: LEVETIRACETAM SOL (5 ML) 100 MG/ML UDC GT SCH ×2 (09:31→21:08)
[2018-11-28] MEDS: Z GUARD REMEDY 4 OZ OINT TP SCH ×2 (09:35→21:08)
[2018-11-28] MEDS: HYDROGEN PEROXIDE 480 ML BOTTLE TP SCH ×2 (09:35→21:08)
[2018-11-28] MEDS: HEPARIN SODIUM, PORCINE 5000 UNITS/1 ML VIAL SQ SCH ×2 (09:35→21:08)
[2018-11-28 19:32] VITALS: BP 110/65
--- NOTE | 2018-11-28 20:00 | NUR ---
RN NOTES Received pt with light pinkish tinged secretions. Ice lavaged as needed. Will continue to monitor.
[2018-11-28] MEDS: POLYETHYLENE GLYCOL 3350 17 GM POWD.PACK GT SCH (21:08)
[2018-11-29] MEDS: ALBUTEROL FS 2.5 MG/3 ML VIAL.NEB NEB SCH ×4 (01:53→19:29)
[2018-11-29] MEDS: CHLORHEXIDINE GLUCONATE 15 ML UDC MM SCH ×2 (06:06→17:44)
[2018-11-29] MEDS: POLYVINYL ALCOHOL 15 ML BOTTLE EACHEYE SCH ×4 (06:06→23:24)
[2018-11-29] MEDS: MYCOPHENOLATE MOFETIL SUSP 500 MG/2.5 ML UDC GT SCH ×2 (06:06→17:44)
[2018-11-29 07:45] VITALS: BP 103/70
[2018-11-29] MEDS: HEPARIN SODIUM, PORCINE 5000 UNITS/1 ML VIAL SQ SCH ×2 (09:00→21:05)
[2018-11-29] MEDS: BACLOFEN (10 MG) 10 MG TABLET GT SCH ×3 (09:00→17:44)
[2018-11-29] MEDS: FOLIC ACID 1 MG TABLET GT SCH ×2 (09:00→17:44)
[2018-11-29] MEDS: SENNOSIDES 8.6 MG TABLET GT SCH ×2 (09:00→21:04)
[2018-11-29] MEDS: SERTRALINE HCL 25 MG TABLET GT SCH (09:00)
[2018-11-29] MEDS: Z GUARD REMEDY 4 OZ OINT TP SCH ×2 (09:00→21:05)
[2018-11-29] MEDS: LEVETIRACETAM SOL (5 ML) 100 MG/ML UDC GT SCH ×2 (09:00→21:04)
[2018-11-29] MEDS: HYDROGEN PEROXIDE 480 ML BOTTLE TP SCH ×2 (09:00→21:05)
[2018-11-29] MEDS: JEVITY 1.2 CAL 1,000 ML BOTTLE GT PRN (18:50)
[2018-11-29 19:57] VITALS: BP 122/71
[2018-11-29] MEDS: POLYETHYLENE GLYCOL 3350 17 GM POWD.PACK GT SCH (21:05)
[2018-11-30] MEDS: ALBUTEROL FS 2.5 MG/3 ML VIAL.NEB NEB SCH ×4 (02:10→21:12)
[2018-11-30] MEDS: POLYVINYL ALCOHOL 15 ML BOTTLE EACHEYE SCH ×3 (05:37→18:28)
[2018-11-30] MEDS: CHLORHEXIDINE GLUCONATE 15 ML UDC MM SCH ×2 (05:38→18:28)
[2018-11-30] MEDS: MYCOPHENOLATE MOFETIL SUSP 500 MG/2.5 ML UDC GT SCH ×2 (05:38→18:28)
[2018-11-30 07:31] VITALS: BP 109/66
[2018-11-30] MEDS: SERTRALINE HCL 25 MG TABLET GT SCH (09:00)
[2018-11-30] MEDS: LEVETIRACETAM SOL (5 ML) 100 MG/ML UDC GT SCH ×2 (09:00→20:11)
[2018-11-30] MEDS: HYDROGEN PEROXIDE 480 ML BOTTLE TP SCH ×2 (09:00→20:13)
[2018-11-30] MEDS: BACLOFEN (10 MG) 10 MG TABLET GT SCH ×3 (09:00→17:00)
[2018-11-30] MEDS: Z GUARD REMEDY 4 OZ OINT TP SCH ×2 (09:00→20:13)
[2018-11-30] MEDS: SENNOSIDES 8.6 MG TABLET GT SCH ×2 (09:00→20:11)
[2018-11-30] MEDS: FOLIC ACID 1 MG TABLET GT SCH ×2 (09:00→17:00)
[2018-11-30] MEDS: HEPARIN SODIUM, PORCINE 5000 UNITS/1 ML VIAL SQ SCH ×2 (09:00→20:13)
--- NOTE | 2018-11-30 09:30 | NUR ---
Seen and examined by Dr. Lubin, made aware that patient has blood tinged secretions last weekend, but none noted at this time. NNO given.
[2018-11-30] MEDS: JEVITY 1.2 CAL 1,000 ML BOTTLE GT PRN (13:16)
[2018-11-30 20:00] VITALS: BP 126/72
--- NOTE | 2018-11-30 20:00 | NUR ---
SUBACUTE/RN NOTES PATIENT AWAKE, REQUIRE REPOSITION AND TURNING, REPOSITION, KEEP SKIN INTACT AND DRY, APPLY SKIN BARRIER PROTECTOR, PICTURE TAKEN ON SACRAL AREA, MONITORING FOR ANY CHANGES, WOUND CONSULT ORDER CHARGE NURSE AWARE.
[2018-11-30] MEDS: POLYETHYLENE GLYCOL 3350 17 GM POWD.PACK GT SCH (21:59)
[2018-12-01] MEDS: POLYVINYL ALCOHOL 15 ML BOTTLE EACHEYE SCH ×5 (00:09→23:57)
[2018-12-01] MEDS: ALBUTEROL FS 2.5 MG/3 ML VIAL.NEB NEB SCH ×4 (01:18→20:10)
[2018-12-01] MEDS: JEVITY 1.2 CAL 1,000 ML BOTTLE GT PRN ×2 (02:42→17:59)
[2018-12-01] MEDS: MYCOPHENOLATE MOFETIL SUSP 500 MG/2.5 ML UDC GT SCH ×2 (05:06→17:59)
[2018-12-01] MEDS: CHLORHEXIDINE GLUCONATE 15 ML UDC MM SCH ×2 (05:06→17:59)
[2018-12-01 08:27] VITALS: BP 115/72
[2018-12-01] MEDS: SENNOSIDES 8.6 MG TABLET GT SCH ×2 (09:00→21:08)
[2018-12-01] MEDS ORDERED: Z GUARD REMEDY 4 OZ OINT TP SCH (09:00)
--- NOTE | 2018-12-01 09:36 | NUR ---
WOUND CARE CONSULT: PT SEEN FOR GLUTEAL CREASE INCONTINENCE ASSOCIATED SKIN DAMAGE WITH OPEN SKIN AND RED RASH TO GLUTEAL CREASE/INNER BUTTOCKS. RECOMMENDATIONS MADE FOR SKIN CARE AND PROTECTION. DISCUSSED WITH NURSING STAFF. PT IS INCONTINENT OF URINE AND STOOL. SKIN TO BE KEPT CLEAN AND DRY. RECOMMEND LOTRIMIN CREAM FOR RASH AND Z GUARD WITH MEPILEX FOR GLUTEAL CREASE. WILL SEE PRN. PT ON FIRST STEP [facility]. IN AGREEMENT WITH PLAN OF CARE.
[2018-12-01] MEDS: BACLOFEN (10 MG) 10 MG TABLET GT SCH ×3 (09:43→17:58)
[2018-12-01] MEDS: SERTRALINE HCL 25 MG TABLET GT SCH (09:43)
[2018-12-01] MEDS: LEVETIRACETAM SOL (5 ML) 100 MG/ML UDC GT SCH ×2 (09:43→21:08)
[2018-12-01] MEDS: FOLIC ACID 1 MG TABLET GT SCH ×2 (09:43→17:58)
[2018-12-01] MEDS: HYDROGEN PEROXIDE 480 ML BOTTLE TP SCH ×2 (09:45→21:09)
[2018-12-01] MEDS: HEPARIN SODIUM, PORCINE 5000 UNITS/1 ML VIAL SQ SCH ×2 (09:45→21:09)
[2018-12-01] MEDS: Z GUARD REMEDY 4 OZ OINT TP SCH ×4 (09:45→21:09)
--- NOTE | 2018-12-01 15:30 | NUR ---
Resident's son at bedside and made aware that patient has gluteal crease MASD with treatment order. Appreciated the information shared.
[2018-12-01 19:49] VITALS: BP 123/79
[2018-12-01] MEDS: POLYETHYLENE GLYCOL 3350 17 GM POWD.PACK GT SCH (21:09)
[2018-12-02] MEDS: ALBUTEROL FS 2.5 MG/3 ML VIAL.NEB NEB SCH ×4 (01:47→20:03)
[2018-12-02] MEDS: MYCOPHENOLATE MOFETIL SUSP 500 MG/2.5 ML UDC GT SCH ×2 (05:32→17:57)
[2018-12-02] MEDS: POLYVINYL ALCOHOL 15 ML BOTTLE EACHEYE SCH ×3 (05:32→17:57)
[2018-12-02] MEDS: CHLORHEXIDINE GLUCONATE 15 ML UDC MM SCH ×2 (05:32→17:58)
[2018-12-02 07:49] VITALS: BP 130/79
[2018-12-02] MEDS: FOLIC ACID 1 MG TABLET GT SCH ×2 (08:08→16:24)
[2018-12-02] MEDS: LEVETIRACETAM SOL (5 ML) 100 MG/ML UDC GT SCH ×2 (08:08→20:37)
[2018-12-02] MEDS: BACLOFEN (10 MG) 10 MG TABLET GT SCH ×3 (08:09→16:24)
[2018-12-02] MEDS: SERTRALINE HCL 25 MG TABLET GT SCH (08:09)
[2018-12-02] MEDS: SENNOSIDES 8.6 MG TABLET GT SCH ×2 (08:09→20:37)
[2018-12-02] MEDS: HEPARIN SODIUM, PORCINE 5000 UNITS/1 ML VIAL SQ SCH ×2 (08:11→20:39)
[2018-12-02] MEDS: HYDROGEN PEROXIDE 480 ML BOTTLE TP SCH ×2 (09:00→20:39)
[2018-12-02] MEDS: Z GUARD REMEDY 4 OZ OINT TP SCH ×5 (09:00→21:21)
[2018-12-02] MEDS: JEVITY 1.2 CAL 1,000 ML BOTTLE GT PRN (12:44)
[2018-12-02 20:30] VITALS: BP 131/77
[2018-12-02] MEDS: CLOTRIMAZOLE 1% CREAM 24 GM TUBE TP SCH (21:20)
[2018-12-02] MEDS: POLYETHYLENE GLYCOL 3350 17 GM POWD.PACK GT SCH (21:39)
--- NOTE | 2018-12-02 22:42 | NUR ---
PT RCVD OLE'D ON COOL AEROSOL. TX JIMBO WELL. SX DONE. PT OLE IS PATENT AND SECURE. AMBU BAG AT BEDSIDE. Addendum: 12/02/18 at 2242 by USHA SUMMERS RT Amended: Links added.
[2018-12-03] MEDS: POLYVINYL ALCOHOL 15 ML BOTTLE EACHEYE SCH ×5 (00:24→23:20)
[2018-12-03] MEDS: ALBUTEROL FS 2.5 MG/3 ML VIAL.NEB NEB SCH ×4 (01:18→19:50)
[2018-12-03] MEDS: JEVITY 1.2 CAL 1,000 ML BOTTLE GT PRN (03:14)
[2018-12-03] MEDS: MYCOPHENOLATE MOFETIL SUSP 500 MG/2.5 ML UDC GT SCH ×2 (05:16→17:12)
[2018-12-03] MEDS: CHLORHEXIDINE GLUCONATE 15 ML UDC MM SCH ×2 (05:17→17:12)
[2018-12-03 08:00] VITALS: BP 100/69
[2018-12-03] MEDS: HYDROGEN PEROXIDE 480 ML BOTTLE TP SCH ×2 (09:00→21:19)
[2018-12-03] MEDS: BACLOFEN (10 MG) 10 MG TABLET GT SCH ×3 (09:00→17:12)
[2018-12-03] MEDS: LEVETIRACETAM SOL (5 ML) 100 MG/ML UDC GT SCH ×2 (09:00→21:18)
[2018-12-03] MEDS: Z GUARD REMEDY 4 OZ OINT TP SCH ×6 (09:00→21:19)
[2018-12-03] MEDS: SENNOSIDES 8.6 MG TABLET GT SCH ×2 (09:00→21:18)
[2018-12-03] MEDS: SERTRALINE HCL 25 MG TABLET GT SCH (09:00)
[2018-12-03] MEDS: CLOTRIMAZOLE 1% CREAM 24 GM TUBE TP SCH ×2 (09:00→21:19)
[2018-12-03] MEDS: FOLIC ACID 1 MG TABLET GT SCH ×2 (09:00→17:12)
[2018-12-03] MEDS: HEPARIN SODIUM, PORCINE 5000 UNITS/1 ML VIAL SQ SCH ×2 (09:00→21:19)
[2018-12-03 20:07] VITALS: BP 122/51
--- NOTE | 2018-12-03 20:07 | NUR ---
PT RCVD OLE'D ON COOL AEROSOL. TX JIMBO WELL. SX DONE. PT OLE IS PATENT AND SECURE. AMBU BAG AT BEDSIDE. Addendum: 12/03/18 at 2008 by USHA SUMMERS RT Amended: Links added.
[2018-12-03] MEDS: POLYETHYLENE GLYCOL 3350 17 GM POWD.PACK GT SCH (21:19)
[2018-12-04] MEDS: ALBUTEROL FS 2.5 MG/3 ML VIAL.NEB NEB SCH ×4 (01:00→20:01)
[2018-12-04] MEDS: POLYVINYL ALCOHOL 15 ML BOTTLE EACHEYE SCH ×3 (05:37→17:03)
[2018-12-04] MEDS: MYCOPHENOLATE MOFETIL SUSP 500 MG/2.5 ML UDC GT SCH ×2 (05:38→17:03)
[2018-12-04] MEDS: CHLORHEXIDINE GLUCONATE 15 ML UDC MM SCH ×2 (05:38→17:03)
[2018-12-04 08:07] VITALS: BP 106/37
[2018-12-04] MEDS: SENNOSIDES 8.6 MG TABLET GT SCH ×2 (08:56→21:39)
[2018-12-04] MEDS: BACLOFEN (10 MG) 10 MG TABLET GT SCH ×3 (08:56→17:03)
[2018-12-04] MEDS: SERTRALINE HCL 25 MG TABLET GT SCH (08:56)
[2018-12-04] MEDS: FOLIC ACID 1 MG TABLET GT SCH ×2 (08:56→17:03)
[2018-12-04] MEDS: HEPARIN SODIUM, PORCINE 5000 UNITS/1 ML VIAL SQ SCH ×2 (08:56→21:39)
[2018-12-04] MEDS: LEVETIRACETAM SOL (5 ML) 100 MG/ML UDC GT SCH ×2 (08:56→21:39)
[2018-12-04] MEDS: HYDROGEN PEROXIDE 480 ML BOTTLE TP SCH ×2 (08:56→21:39)
[2018-12-04] MEDS: Z GUARD REMEDY 4 OZ OINT TP SCH ×6 (08:57→21:40)
[2018-12-04] MEDS: CLOTRIMAZOLE 1% CREAM 24 GM TUBE TP SCH ×2 (08:57→21:39)
[2018-12-04] MEDS: JEVITY 1.2 CAL 1,000 ML BOTTLE GT PRN (12:52)
[2018-12-04 19:47] VITALS: BP 128/77
[2018-12-04] MEDS: POLYETHYLENE GLYCOL 3350 17 GM POWD.PACK GT SCH (21:40)
[2018-12-05] MEDS: POLYVINYL ALCOHOL 15 ML BOTTLE EACHEYE SCH ×4 (00:15→17:14)
[2018-12-05] MEDS: ALBUTEROL FS 2.5 MG/3 ML VIAL.NEB NEB SCH ×4 (01:14→20:02)
--- NOTE | 2018-12-05 02:46 | NUR ---
PATIENT RECEIVED ON 28% COOL AEROSOL WITH TRACH MASK, TOLERATING WITH NO DISTRESS/SOB NOTED. PRN SUCTION. GIVEN IN-LINE TREATMENTS WITH NO ADVERSE REACTIONS. AMBU BAG AT BEDSIDE. Addendum: 12/05/18 at 0247 by JANAY CANCINO RT Amended: Links added.
[2018-12-05] MEDS: CHLORHEXIDINE GLUCONATE 15 ML UDC MM SCH ×2 (05:54→17:14)
[2018-12-05] MEDS: MYCOPHENOLATE MOFETIL SUSP 500 MG/2.5 ML UDC GT SCH ×2 (05:54→17:14)
[2018-12-05] MEDS: JEVITY 1.2 CAL 1,000 ML BOTTLE GT PRN ×2 (05:56→18:07)
[2018-12-05 08:40] VITALS: BP 100/54
[2018-12-05] MEDS: CLOTRIMAZOLE 1% CREAM 24 GM TUBE TP SCH ×2 (09:00→21:17)
[2018-12-05] MEDS: HYDROGEN PEROXIDE 480 ML BOTTLE TP SCH ×2 (09:00→21:16)
[2018-12-05] MEDS: FOLIC ACID 1 MG TABLET GT SCH ×2 (09:00→16:59)
[2018-12-05] MEDS: HEPARIN SODIUM, PORCINE 5000 UNITS/1 ML VIAL SQ SCH ×2 (09:00→21:16)
[2018-12-05] MEDS: SENNOSIDES 8.6 MG TABLET GT SCH ×2 (09:00→21:16)
[2018-12-05] MEDS: Z GUARD REMEDY 4 OZ OINT TP SCH ×6 (09:00→21:17)
[2018-12-05] MEDS: BACLOFEN (10 MG) 10 MG TABLET GT SCH ×3 (09:00→16:59)
[2018-12-05] MEDS: LEVETIRACETAM SOL (5 ML) 100 MG/ML UDC GT SCH ×2 (09:00→21:15)
[2018-12-05] MEDS: SERTRALINE HCL 25 MG TABLET GT SCH (09:00)
--- NOTE | 2018-12-05 13:30 | NUR ---
Seen and examined by Dr. Aguilar, no new order given.
[2018-12-05] MEDS: POLYETHYLENE GLYCOL 3350 17 GM POWD.PACK GT SCH (21:17)
[2018-12-06] MEDS: POLYVINYL ALCOHOL 15 ML BOTTLE EACHEYE SCH ×4 (00:42→18:12)
[2018-12-06] MEDS: ALBUTEROL FS 2.5 MG/3 ML VIAL.NEB NEB SCH ×4 (01:46→19:24)
[2018-12-06] MEDS: MYCOPHENOLATE MOFETIL SUSP 500 MG/2.5 ML UDC GT SCH ×2 (05:51→18:12)
[2018-12-06] MEDS: CHLORHEXIDINE GLUCONATE 15 ML UDC MM SCH ×2 (05:51→18:12)
[2018-12-06 07:36] VITALS: BP 104/71
[2018-12-06] MEDS: FOLIC ACID 1 MG TABLET GT SCH ×2 (08:32→17:00)
[2018-12-06] MEDS: SERTRALINE HCL 25 MG TABLET GT SCH (08:32)
[2018-12-06] MEDS: SENNOSIDES 8.6 MG TABLET GT SCH ×2 (08:32→21:13)
[2018-12-06] MEDS: LEVETIRACETAM SOL (5 ML) 100 MG/ML UDC GT SCH ×2 (08:32→21:12)
[2018-12-06] MEDS: BACLOFEN (10 MG) 10 MG TABLET GT SCH ×3 (08:32→17:00)
[2018-12-06] MEDS: HEPARIN SODIUM, PORCINE 5000 UNITS/1 ML VIAL SQ SCH ×2 (08:34→21:13)
[2018-12-06] MEDS: HYDROGEN PEROXIDE 480 ML BOTTLE TP SCH ×2 (08:34→21:14)
[2018-12-06] MEDS: CLOTRIMAZOLE 1% CREAM 24 GM TUBE TP SCH ×2 (08:39→21:14)
[2018-12-06] MEDS: Z GUARD REMEDY 4 OZ OINT TP SCH ×6 (08:39→21:14)
[2018-12-06] MEDS: JEVITY 1.2 CAL 1,000 ML BOTTLE GT PRN (18:12)
[2018-12-06 19:52] VITALS: BP 112/69
[2018-12-06] MEDS: POLYETHYLENE GLYCOL 3350 17 GM POWD.PACK GT SCH (21:14)
[2018-12-07] MEDS: POLYVINYL ALCOHOL 15 ML BOTTLE EACHEYE SCH ×5 (00:15→23:44)
[2018-12-07] MEDS: ALBUTEROL FS 2.5 MG/3 ML VIAL.NEB NEB SCH ×4 (01:58→19:58)
[2018-12-07] MEDS: MYCOPHENOLATE MOFETIL SUSP 500 MG/2.5 ML UDC GT SCH ×2 (05:23→17:55)
[2018-12-07] MEDS: CHLORHEXIDINE GLUCONATE 15 ML UDC MM SCH ×2 (05:24→17:55)
[2018-12-07 08:40] VITALS: BP 124/73
[2018-12-07] MEDS: LEVETIRACETAM SOL (5 ML) 100 MG/ML UDC GT SCH ×2 (09:00→21:13)
[2018-12-07] MEDS: Z GUARD REMEDY 4 OZ OINT TP SCH ×6 (09:00→21:14)
[2018-12-07] MEDS: HEPARIN SODIUM, PORCINE 5000 UNITS/1 ML VIAL SQ SCH ×2 (09:00→21:14)
[2018-12-07] MEDS: CLOTRIMAZOLE 1% CREAM 24 GM TUBE TP SCH ×2 (09:00→21:14)
[2018-12-07] MEDS: SERTRALINE HCL 25 MG TABLET GT SCH (09:00)
[2018-12-07] MEDS: HYDROGEN PEROXIDE 480 ML BOTTLE TP SCH ×2 (09:00→21:14)
[2018-12-07] MEDS: SENNOSIDES 8.6 MG TABLET GT SCH ×2 (09:00→21:13)
[2018-12-07] MEDS: FOLIC ACID 1 MG TABLET GT SCH ×2 (09:00→16:23)
[2018-12-07] MEDS: BACLOFEN (10 MG) 10 MG TABLET GT SCH ×3 (09:00→16:23)
--- NOTE | 2018-12-07 09:00 | NUR ---
Seen and examined by Dr. Lubin, no new order given.
[2018-12-07] MEDS: JEVITY 1.2 CAL 1,000 ML BOTTLE GT PRN (11:35)
--- NOTE | 2018-12-07 13:00 | NUR ---
Seen and examined by Dr. Aguilar, no new order given.
[2018-12-07 20:03] VITALS: BP 126/71
[2018-12-07] MEDS: POLYETHYLENE GLYCOL 3350 17 GM POWD.PACK GT SCH (21:14)
[2018-12-07 23:00] VITALS: BP 126/71
[2018-12-08] MEDS: ALBUTEROL FS 2.5 MG/3 ML VIAL.NEB NEB SCH ×4 (01:13→19:50)
[2018-12-08] MEDS: MYCOPHENOLATE MOFETIL SUSP 500 MG/2.5 ML UDC GT SCH ×2 (05:42→17:07)
[2018-12-08] MEDS: CHLORHEXIDINE GLUCONATE 15 ML UDC MM SCH ×2 (05:42→17:07)
[2018-12-08] MEDS: POLYVINYL ALCOHOL 15 ML BOTTLE EACHEYE SCH ×3 (05:42→17:07)
[2018-12-08 07:28] VITALS: BP 124/69
[2018-12-08] MEDS: HEPARIN SODIUM, PORCINE 5000 UNITS/1 ML VIAL SQ SCH ×2 (09:00→21:01)
[2018-12-08] MEDS: SENNOSIDES 8.6 MG TABLET GT SCH ×2 (09:00→21:00)
[2018-12-08] MEDS: LEVETIRACETAM SOL (5 ML) 100 MG/ML UDC GT SCH ×2 (09:00→21:00)
[2018-12-08] MEDS: SERTRALINE HCL 25 MG TABLET GT SCH (09:00)
[2018-12-08] MEDS: FOLIC ACID 1 MG TABLET GT SCH ×2 (09:00→17:06)
[2018-12-08] MEDS: HYDROGEN PEROXIDE 480 ML BOTTLE TP SCH ×2 (09:00→21:01)
[2018-12-08] MEDS: BACLOFEN (10 MG) 10 MG TABLET GT SCH ×3 (09:00→17:06)
[2018-12-08] MEDS: Z GUARD REMEDY 4 OZ OINT TP SCH ×6 (09:00→21:01)
[2018-12-08] MEDS: CLOTRIMAZOLE 1% CREAM 24 GM TUBE TP SCH ×2 (09:00→21:01)
[2018-12-08] MEDS: JEVITY 1.2 CAL 1,000 ML BOTTLE GT PRN (19:10)
[2018-12-08 19:54] VITALS: BP 120/60
[2018-12-08] MEDS: POLYETHYLENE GLYCOL 3350 17 GM POWD.PACK GT SCH (21:01)
[2018-12-09] MEDS: POLYVINYL ALCOHOL 15 ML BOTTLE EACHEYE SCH ×5 (00:25→23:16)
[2018-12-09] MEDS: ALBUTEROL FS 2.5 MG/3 ML VIAL.NEB NEB SCH ×4 (02:10→20:34)
[2018-12-09] MEDS: CHLORHEXIDINE GLUCONATE 15 ML UDC MM SCH ×2 (05:23→17:54)
[2018-12-09] MEDS: MYCOPHENOLATE MOFETIL SUSP 500 MG/2.5 ML UDC GT SCH ×2 (05:23→17:54)
[2018-12-09 07:28] VITALS: BP 120/73
[2018-12-09] MEDS: BACLOFEN (10 MG) 10 MG TABLET GT SCH ×3 (09:58→17:54)
[2018-12-09] MEDS: FOLIC ACID 1 MG TABLET GT SCH ×2 (09:58→17:54)
[2018-12-09] MEDS: SERTRALINE HCL 25 MG TABLET GT SCH (09:58)
[2018-12-09] MEDS: SENNOSIDES 8.6 MG TABLET GT SCH ×2 (09:58→20:17)
[2018-12-09] MEDS: LEVETIRACETAM SOL (5 ML) 100 MG/ML UDC GT SCH ×2 (09:58→20:17)
[2018-12-09] MEDS: HYDROGEN PEROXIDE 480 ML BOTTLE TP SCH ×2 (09:59→20:18)
[2018-12-09] MEDS: Z GUARD REMEDY 4 OZ OINT TP SCH ×6 (09:59→20:19)
[2018-12-09] MEDS: HEPARIN SODIUM, PORCINE 5000 UNITS/1 ML VIAL SQ SCH ×2 (09:59→20:18)
[2018-12-09] MEDS: CLOTRIMAZOLE 1% CREAM 24 GM TUBE TP SCH ×2 (09:59→20:18)
[2018-12-09] MEDS: POLYETHYLENE GLYCOL 3350 17 GM POWD.PACK GT SCH (21:09)
[2018-12-10] MEDS: ALBUTEROL FS 2.5 MG/3 ML VIAL.NEB NEB SCH ×4 (02:00→20:33)
[2018-12-10] MEDS: MYCOPHENOLATE MOFETIL SUSP 500 MG/2.5 ML UDC GT SCH ×2 (05:31→18:15)
[2018-12-10] MEDS: POLYVINYL ALCOHOL 15 ML BOTTLE EACHEYE SCH ×4 (05:31→23:33)
[2018-12-10] MEDS: JEVITY 1.2 CAL 1,000 ML BOTTLE GT PRN ×2 (05:31→21:10)
[2018-12-10] MEDS: CHLORHEXIDINE GLUCONATE 15 ML UDC MM SCH ×2 (05:31→18:15)
[2018-12-10 08:03] VITALS: BP 106/69
[2018-12-10] MEDS: HEPARIN SODIUM, PORCINE 5000 UNITS/1 ML VIAL SQ SCH ×2 (08:39→20:13)
[2018-12-10] MEDS: BACLOFEN (10 MG) 10 MG TABLET GT SCH ×3 (08:39→16:51)
[2018-12-10] MEDS: LEVETIRACETAM SOL (5 ML) 100 MG/ML UDC GT SCH ×2 (08:39→20:13)
[2018-12-10] MEDS: SERTRALINE HCL 25 MG TABLET GT SCH (08:39)
[2018-12-10] MEDS: SENNOSIDES 8.6 MG TABLET GT SCH ×2 (08:39→20:13)
[2018-12-10] MEDS: FOLIC ACID 1 MG TABLET GT SCH ×2 (08:39→16:51)
[2018-12-10] MEDS: Z GUARD REMEDY 4 OZ OINT TP SCH ×6 (09:00→20:14)
[2018-12-10] MEDS: HYDROGEN PEROXIDE 480 ML BOTTLE TP SCH ×2 (09:00→20:14)
[2018-12-10] MEDS: CLOTRIMAZOLE 1% CREAM 24 GM TUBE TP SCH ×2 (09:00→20:14)
[2018-12-10 19:54] VITALS: BP 126/56
[2018-12-10] MEDS: POLYETHYLENE GLYCOL 3350 17 GM POWD.PACK GT SCH (21:10)
[2018-12-11] MEDS: ALBUTEROL FS 2.5 MG/3 ML VIAL.NEB NEB SCH ×4 (01:49→19:27)
[2018-12-11] MEDS: CHLORHEXIDINE GLUCONATE 15 ML UDC MM SCH ×2 (05:24→18:00)
[2018-12-11] MEDS: MYCOPHENOLATE MOFETIL SUSP 500 MG/2.5 ML UDC GT SCH ×2 (05:24→18:00)
[2018-12-11] MEDS: POLYVINYL ALCOHOL 15 ML BOTTLE EACHEYE SCH ×4 (05:24→23:11)
[2018-12-11 08:00] VITALS: BP 110/76
[2018-12-11] MEDS: CLOTRIMAZOLE 1% CREAM 24 GM TUBE TP SCH ×2 (09:00→20:25)
[2018-12-11] MEDS: LEVETIRACETAM SOL (5 ML) 100 MG/ML UDC GT SCH ×2 (09:00→20:25)
[2018-12-11] MEDS: SENNOSIDES 8.6 MG TABLET GT SCH ×2 (09:00→20:25)
[2018-12-11] MEDS: BACLOFEN (10 MG) 10 MG TABLET GT SCH ×3 (09:00→17:25)
[2018-12-11] MEDS: HYDROGEN PEROXIDE 480 ML BOTTLE TP SCH ×2 (09:00→20:25)
[2018-12-11] MEDS: Z GUARD REMEDY 4 OZ OINT TP SCH ×6 (09:00→20:26)
[2018-12-11] MEDS: FOLIC ACID 1 MG TABLET GT SCH ×2 (09:00→17:24)
[2018-12-11] MEDS: SERTRALINE HCL 25 MG TABLET GT SCH (09:00)
[2018-12-11] MEDS: HEPARIN SODIUM, PORCINE 5000 UNITS/1 ML VIAL SQ SCH ×2 (09:18→20:25)
--- NOTE | 2018-12-11 14:00 | NUR ---
Seen and examined by Dr. Aguilar, made aware that GT stoma slightly red with an area of hypergranulation. He said it is OK to use a barrier cream. Order carried out.
[2018-12-11 19:39] VITALS: BP 128/52
[2018-12-11] MEDS: JEVITY 1.2 CAL 1,000 ML BOTTLE GT PRN (20:26)
[2018-12-11] MEDS: ZINC OXIDE 30 GM TUBE TP SCH (20:26)
[2018-12-11] MEDS: POLYETHYLENE GLYCOL 3350 17 GM POWD.PACK GT SCH (21:08)
[2018-12-12] MEDS: ALBUTEROL FS 2.5 MG/3 ML VIAL.NEB NEB SCH ×4 (01:29→19:57)
[2018-12-12] MEDS: POLYVINYL ALCOHOL 15 ML BOTTLE EACHEYE SCH ×3 (05:10→17:22)
[2018-12-12] MEDS: MYCOPHENOLATE MOFETIL SUSP 500 MG/2.5 ML UDC GT SCH ×2 (05:10→17:22)
[2018-12-12] MEDS: CHLORHEXIDINE GLUCONATE 15 ML UDC MM SCH ×2 (05:10→17:22)
[2018-12-12 07:30] VITALS: BP 106/82
[2018-12-12] MEDS: BACLOFEN (10 MG) 10 MG TABLET GT SCH ×3 (09:00→17:22)
[2018-12-12] MEDS: HEPARIN SODIUM, PORCINE 5000 UNITS/1 ML VIAL SQ SCH ×2 (09:00→21:41)
[2018-12-12] MEDS: HYDROGEN PEROXIDE 480 ML BOTTLE TP SCH ×2 (09:00→21:41)
[2018-12-12] MEDS: FOLIC ACID 1 MG TABLET GT SCH ×2 (09:00→17:21)
[2018-12-12] MEDS: LEVETIRACETAM SOL (5 ML) 100 MG/ML UDC GT SCH ×2 (09:00→21:39)
[2018-12-12] MEDS: SERTRALINE HCL 25 MG TABLET GT SCH (09:00)
[2018-12-12] MEDS: SENNOSIDES 8.6 MG TABLET GT SCH ×2 (09:00→21:39)
[2018-12-12] MEDS: CLOTRIMAZOLE 1% CREAM 24 GM TUBE TP SCH ×2 (09:00→21:41)
[2018-12-12] MEDS: ZINC OXIDE 30 GM TUBE TP SCH ×2 (09:00→21:41)
[2018-12-12] MEDS: Z GUARD REMEDY 4 OZ OINT TP SCH ×6 (09:00→21:41)
[2018-12-12] MEDS: JEVITY 1.2 CAL 1,000 ML BOTTLE GT PRN (13:17)
[2018-12-12 19:45] VITALS: BP 100/64
[2018-12-12] MEDS: POLYETHYLENE GLYCOL 3350 17 GM POWD.PACK GT SCH (21:41)
[2018-12-13] MEDS: POLYVINYL ALCOHOL 15 ML BOTTLE EACHEYE SCH ×5 (00:33→23:24)
[2018-12-13] MEDS: ALBUTEROL FS 2.5 MG/3 ML VIAL.NEB NEB SCH ×4 (01:57→18:54)
[2018-12-13] MEDS: MYCOPHENOLATE MOFETIL SUSP 500 MG/2.5 ML UDC GT SCH ×2 (06:27→17:54)
[2018-12-13] MEDS: JEVITY 1.2 CAL 1,000 ML BOTTLE GT PRN ×2 (06:27→17:54)
[2018-12-13] MEDS: CHLORHEXIDINE GLUCONATE 15 ML UDC MM SCH ×2 (06:27→17:54)
[2018-12-13 07:33] VITALS: BP 121/76
[2018-12-13] MEDS: BACLOFEN (10 MG) 10 MG TABLET GT SCH ×3 (08:40→17:54)
[2018-12-13] MEDS: HEPARIN SODIUM, PORCINE 5000 UNITS/1 ML VIAL SQ SCH ×2 (08:40→21:23)
[2018-12-13] MEDS: SENNOSIDES 8.6 MG TABLET GT SCH ×2 (08:40→21:23)
[2018-12-13] MEDS: FOLIC ACID 1 MG TABLET GT SCH ×2 (08:40→17:54)
[2018-12-13] MEDS: LEVETIRACETAM SOL (5 ML) 100 MG/ML UDC GT SCH ×2 (08:40→21:23)
[2018-12-13] MEDS: SERTRALINE HCL 25 MG TABLET GT SCH (08:40)
[2018-12-13] MEDS: CLOTRIMAZOLE 1% CREAM 24 GM TUBE TP SCH ×2 (09:00→21:24)
[2018-12-13] MEDS: ZINC OXIDE 30 GM TUBE TP SCH ×2 (09:00→21:24)
[2018-12-13] MEDS: Z GUARD REMEDY 4 OZ OINT TP SCH ×6 (09:00→21:24)
[2018-12-13] MEDS: HYDROGEN PEROXIDE 480 ML BOTTLE TP SCH ×2 (09:00→21:24)
[2018-12-13 20:00] VITALS: BP 129/69
[2018-12-13 20:24] VITALS: BP 129/69
[2018-12-13] MEDS: POLYETHYLENE GLYCOL 3350 17 GM POWD.PACK GT SCH (21:24)
[2018-12-14] MEDS: ALBUTEROL FS 2.5 MG/3 ML VIAL.NEB NEB SCH ×4 (01:31→20:11)
[2018-12-14] MEDS: MYCOPHENOLATE MOFETIL SUSP 500 MG/2.5 ML UDC GT SCH ×2 (05:11→18:58)
[2018-12-14] MEDS: CHLORHEXIDINE GLUCONATE 15 ML UDC MM SCH ×2 (05:11→18:58)
[2018-12-14] MEDS: POLYVINYL ALCOHOL 15 ML BOTTLE EACHEYE SCH ×3 (05:11→18:58)
[2018-12-14 07:42] VITALS: BP 130/72
[2018-12-14] MEDS: CLOTRIMAZOLE 1% CREAM 24 GM TUBE TP SCH ×2 (09:00→20:15)
[2018-12-14] MEDS: Z GUARD REMEDY 4 OZ OINT TP SCH ×5 (09:00→20:15)
[2018-12-14] MEDS: BACLOFEN (10 MG) 10 MG TABLET GT SCH ×3 (09:00→16:32)
[2018-12-14] MEDS: HEPARIN SODIUM, PORCINE 5000 UNITS/1 ML VIAL SQ SCH ×2 (09:00→20:15)
[2018-12-14] MEDS: LEVETIRACETAM SOL (5 ML) 100 MG/ML UDC GT SCH ×2 (09:00→20:14)
[2018-12-14] MEDS: SENNOSIDES 8.6 MG TABLET GT SCH ×2 (09:00→20:14)
[2018-12-14] MEDS: ZINC OXIDE 30 GM TUBE TP SCH ×2 (09:00→20:15)
[2018-12-14] MEDS: SERTRALINE HCL 25 MG TABLET GT SCH (09:00)
[2018-12-14] MEDS: FOLIC ACID 1 MG TABLET GT SCH ×2 (09:00→16:32)
[2018-12-14] MEDS: HYDROGEN PEROXIDE 480 ML BOTTLE TP SCH ×2 (09:00→20:15)
[2018-12-14] MEDS ORDERED: Z GUARD REMEDY 4 OZ OINT TP PRN (15:00)
[2018-12-14] MEDS: JEVITY 1.2 CAL 1,000 ML BOTTLE GT PRN (16:32)
[2018-12-14 19:52] VITALS: BP 133/73
[2018-12-14] MEDS: POLYETHYLENE GLYCOL 3350 17 GM POWD.PACK GT SCH (21:51)
[2018-12-15] MEDS: POLYVINYL ALCOHOL 15 ML BOTTLE EACHEYE SCH ×5 (00:27→23:56)
[2018-12-15] MEDS: ALBUTEROL FS 2.5 MG/3 ML VIAL.NEB NEB SCH ×4 (01:47→19:07)
[2018-12-15] MEDS: MYCOPHENOLATE MOFETIL SUSP 500 MG/2.5 ML UDC GT SCH ×2 (05:13→17:58)
[2018-12-15] MEDS: CHLORHEXIDINE GLUCONATE 15 ML UDC MM SCH ×2 (05:14→17:58)
[2018-12-15 07:49] VITALS: BP 110/81
[2018-12-15] MEDS: LEVETIRACETAM SOL (5 ML) 100 MG/ML UDC GT SCH ×2 (08:23→20:05)
[2018-12-15] MEDS: SENNOSIDES 8.6 MG TABLET GT SCH ×2 (08:23→20:05)
[2018-12-15] MEDS: FOLIC ACID 1 MG TABLET GT SCH ×2 (08:23→16:30)
[2018-12-15] MEDS: BACLOFEN (10 MG) 10 MG TABLET GT SCH ×3 (08:23→16:30)
[2018-12-15] MEDS: SERTRALINE HCL 25 MG TABLET GT SCH (08:23)
[2018-12-15] MEDS: Z GUARD REMEDY 4 OZ OINT TP SCH ×4 (08:24→20:06)
[2018-12-15] MEDS: HEPARIN SODIUM, PORCINE 5000 UNITS/1 ML VIAL SQ SCH ×2 (08:24→20:06)
[2018-12-15] MEDS: HYDROGEN PEROXIDE 480 ML BOTTLE TP SCH ×2 (08:24→20:06)
[2018-12-15] MEDS: CLOTRIMAZOLE 1% CREAM 24 GM TUBE TP SCH ×2 (08:24→20:06)
[2018-12-15] MEDS: ZINC OXIDE 30 GM TUBE TP SCH ×2 (08:24→20:06)
--- NOTE | 2018-12-15 10:12 | NUR ---
Patient seen by Dr. Lubin, no new orders at this time. Vital signs stable, patient lying down comfortably. Bed at the lowest setting. BMV at bedside.
[2018-12-15] MEDS: JEVITY 1.2 CAL 1,000 ML BOTTLE GT PRN (13:17)
[2018-12-15 20:02] VITALS: BP 128/71
[2018-12-15] MEDS: POLYETHYLENE GLYCOL 3350 17 GM POWD.PACK GT SCH (21:45)
[2018-12-16] MEDS: ALBUTEROL FS 2.5 MG/3 ML VIAL.NEB NEB SCH ×4 (01:34→20:22)
[2018-12-16] MEDS: CHLORHEXIDINE GLUCONATE 15 ML UDC MM SCH ×2 (05:17→17:18)
[2018-12-16] MEDS: MYCOPHENOLATE MOFETIL SUSP 500 MG/2.5 ML UDC GT SCH ×2 (05:17→17:18)
[2018-12-16] MEDS: POLYVINYL ALCOHOL 15 ML BOTTLE EACHEYE SCH ×4 (05:17→23:36)
[2018-12-16] MEDS: JEVITY 1.2 CAL 1,000 ML BOTTLE GT PRN (05:18)
[2018-12-16 07:19] VITALS: BP 114/50
[2018-12-16] MEDS: SERTRALINE HCL 25 MG TABLET GT SCH (08:28)
[2018-12-16] MEDS: SENNOSIDES 8.6 MG TABLET GT SCH ×2 (08:28→20:19)
[2018-12-16] MEDS: LEVETIRACETAM SOL (5 ML) 100 MG/ML UDC GT SCH ×2 (08:28→20:19)
[2018-12-16] MEDS: FOLIC ACID 1 MG TABLET GT SCH ×2 (08:28→17:18)
[2018-12-16] MEDS: BACLOFEN (10 MG) 10 MG TABLET GT SCH ×3 (08:28→17:18)
[2018-12-16] MEDS: CLOTRIMAZOLE 1% CREAM 24 GM TUBE TP SCH ×2 (08:29→20:19)
[2018-12-16] MEDS: HEPARIN SODIUM, PORCINE 5000 UNITS/1 ML VIAL SQ SCH ×2 (08:29→20:19)
[2018-12-16] MEDS: HYDROGEN PEROXIDE 480 ML BOTTLE TP SCH ×2 (08:29→20:19)
[2018-12-16] MEDS: Z GUARD REMEDY 4 OZ OINT TP SCH ×4 (08:29→20:19)
[2018-12-16] MEDS: ZINC OXIDE 30 GM TUBE TP SCH ×2 (08:29→20:19)
--- NOTE | 2018-12-16 20:46 | NUR ---
PT RCVD OLE'D ON COOL AEROSOL. TX JIMBO WELL. SX DONE. PT OLE IS PATENT AND SECURE. AMBU BAG AT BEDSIDE. Addendum: 12/16/18 at 2046 by USHA SUMMERS RT Amended: Links added.
[2018-12-16] MEDS: POLYETHYLENE GLYCOL 3350 17 GM POWD.PACK GT SCH (21:12)
[2018-12-16 21:38] VITALS: BP 120/71
[2018-12-17] MEDS: ALBUTEROL FS 2.5 MG/3 ML VIAL.NEB NEB SCH ×4 (01:09→20:13)
[2018-12-17] MEDS: MYCOPHENOLATE MOFETIL SUSP 500 MG/2.5 ML UDC GT SCH ×2 (05:12→17:05)
[2018-12-17] MEDS: POLYVINYL ALCOHOL 15 ML BOTTLE EACHEYE SCH ×4 (05:12→23:09)
[2018-12-17] MEDS: CHLORHEXIDINE GLUCONATE 15 ML UDC MM SCH ×2 (05:12→17:05)
[2018-12-17] MEDS: JEVITY 1.2 CAL 1,000 ML BOTTLE GT PRN ×2 (05:12→17:05)
[2018-12-17 07:41] VITALS: BP 112/74
[2018-12-17] MEDS: HYDROGEN PEROXIDE 480 ML BOTTLE TP SCH ×2 (08:52→20:16)
[2018-12-17] MEDS: BACLOFEN (10 MG) 10 MG TABLET GT SCH ×3 (08:52→17:04)
[2018-12-17] MEDS: FOLIC ACID 1 MG TABLET GT SCH ×2 (08:52→17:04)
[2018-12-17] MEDS: SERTRALINE HCL 25 MG TABLET GT SCH (08:52)
[2018-12-17] MEDS: LEVETIRACETAM SOL (5 ML) 100 MG/ML UDC GT SCH ×2 (08:52→20:15)
[2018-12-17] MEDS: SENNOSIDES 8.6 MG TABLET GT SCH ×2 (08:52→20:15)
[2018-12-17] MEDS: HEPARIN SODIUM, PORCINE 5000 UNITS/1 ML VIAL SQ SCH ×2 (08:52→20:16)
[2018-12-17] MEDS: ZINC OXIDE 30 GM TUBE TP SCH ×2 (08:53→20:16)
[2018-12-17] MEDS: Z GUARD REMEDY 4 OZ OINT TP SCH ×4 (08:53→20:16)
[2018-12-17] MEDS: CLOTRIMAZOLE 1% CREAM 24 GM TUBE TP SCH ×2 (08:53→20:16)
[2018-12-17 20:23] VITALS: BP 122/61
[2018-12-17] MEDS: POLYETHYLENE GLYCOL 3350 17 GM POWD.PACK GT SCH (21:12)
[2018-12-18] MEDS: ALBUTEROL FS 2.5 MG/3 ML VIAL.NEB NEB SCH ×4 (01:06→19:05)
[2018-12-18] MEDS: POLYVINYL ALCOHOL 15 ML BOTTLE EACHEYE SCH ×3 (05:41→17:59)
[2018-12-18] MEDS: CHLORHEXIDINE GLUCONATE 15 ML UDC MM SCH ×2 (05:42→18:00)
[2018-12-18] MEDS: JEVITY 1.2 CAL 1,000 ML BOTTLE GT PRN (05:42)
[2018-12-18] MEDS: MYCOPHENOLATE MOFETIL SUSP 500 MG/2.5 ML UDC GT SCH ×2 (05:42→18:00)
[2018-12-18] MEDS: ZINC OXIDE 30 GM TUBE TP SCH ×2 (09:00→20:23)
[2018-12-18] MEDS: HYDROGEN PEROXIDE 480 ML BOTTLE TP SCH ×2 (09:00→20:23)
[2018-12-18] MEDS: CLOTRIMAZOLE 1% CREAM 24 GM TUBE TP SCH ×2 (09:00→20:23)
[2018-12-18] MEDS: Z GUARD REMEDY 4 OZ OINT TP SCH ×4 (09:00→20:23)
[2018-12-18] MEDS: SERTRALINE HCL 25 MG TABLET GT SCH (09:08)
[2018-12-18] MEDS: SENNOSIDES 8.6 MG TABLET GT SCH ×2 (09:08→20:22)
[2018-12-18] MEDS: BACLOFEN (10 MG) 10 MG TABLET GT SCH ×3 (09:08→17:59)
[2018-12-18] MEDS: LEVETIRACETAM SOL (5 ML) 100 MG/ML UDC GT SCH ×2 (09:08→20:22)
[2018-12-18] MEDS: FOLIC ACID 1 MG TABLET GT SCH ×2 (09:08→17:59)
[2018-12-18] MEDS: HEPARIN SODIUM, PORCINE 5000 UNITS/1 ML VIAL SQ SCH ×2 (09:09→20:22)
[2018-12-18] MEDS: ACETAMINOPHEN 650 MG/20 ML UDC- SA PATIENTS-PAIN ONLY GT PRN (09:12)
[2018-12-18 12:06] VITALS: BP 119/64
--- NOTE | 2018-12-18 16:00 | NUR ---
Seen and examined by Dr. Aguilar no new orders. this morning resident spike a temp 100.4, Dr. Aguilar made aware no new orders. Dr. Aguilar said shes been having episodes of low grade temp off and on, he wants us to monitor if temp increases more than 101.0, and to inform him if it does.
[2018-12-18 20:32] VITALS: BP 109/55
[2018-12-18] MEDS: POLYETHYLENE GLYCOL 3350 17 GM POWD.PACK GT SCH (21:18)
[2018-12-19] MEDS: JEVITY 1.2 CAL 1,000 ML BOTTLE GT PRN ×2 (00:02→18:09)
[2018-12-19] MEDS: ALBUTEROL FS 2.5 MG/3 ML VIAL.NEB NEB SCH ×4 (00:58→20:20)
[2018-12-19] MEDS: MYCOPHENOLATE MOFETIL SUSP 500 MG/2.5 ML UDC GT SCH ×2 (05:15→18:16)
[2018-12-19] MEDS: POLYVINYL ALCOHOL 15 ML BOTTLE EACHEYE SCH ×4 (05:15→18:16)
[2018-12-19] MEDS: CHLORHEXIDINE GLUCONATE 15 ML UDC MM SCH ×2 (05:15→18:16)
[2018-12-19 07:42] VITALS: BP 115/69
[2018-12-19] MEDS: FOLIC ACID 1 MG TABLET GT SCH ×2 (09:31→17:00)
[2018-12-19] MEDS: SERTRALINE HCL 25 MG TABLET GT SCH (09:31)
[2018-12-19] MEDS: SENNOSIDES 8.6 MG TABLET GT SCH ×2 (09:31→21:00)
[2018-12-19] MEDS: BACLOFEN (10 MG) 10 MG TABLET GT SCH ×3 (09:31→17:00)
[2018-12-19] MEDS: LEVETIRACETAM SOL (5 ML) 100 MG/ML UDC GT SCH ×2 (09:31→21:00)
[2018-12-19] MEDS: CLOTRIMAZOLE 1% CREAM 24 GM TUBE TP SCH ×2 (09:32→21:00)
[2018-12-19] MEDS: HEPARIN SODIUM, PORCINE 5000 UNITS/1 ML VIAL SQ SCH ×2 (09:32→21:00)
[2018-12-19] MEDS: Z GUARD REMEDY 4 OZ OINT TP SCH ×4 (09:32→21:00)
[2018-12-19] MEDS: HYDROGEN PEROXIDE 480 ML BOTTLE TP SCH ×2 (09:32→21:00)
[2018-12-19] MEDS: ZINC OXIDE 30 GM TUBE TP SCH ×2 (09:33→21:00)
[2018-12-19 20:39] VITALS: BP 110/57
[2018-12-19] MEDS: POLYETHYLENE GLYCOL 3350 17 GM POWD.PACK GT SCH (22:01)
[2018-12-20] MEDS: POLYVINYL ALCOHOL 15 ML BOTTLE EACHEYE SCH ×5 (00:35→23:49)
[2018-12-20] MEDS: ALBUTEROL FS 2.5 MG/3 ML VIAL.NEB NEB SCH ×4 (01:53→19:28)
[2018-12-20] MEDS: MYCOPHENOLATE MOFETIL SUSP 500 MG/2.5 ML UDC GT SCH ×2 (06:16→17:39)
[2018-12-20] MEDS: CHLORHEXIDINE GLUCONATE 15 ML UDC MM SCH ×2 (06:16→17:39)
[2018-12-20 07:38] VITALS: BP 111/74
[2018-12-20] MEDS: Z GUARD REMEDY 4 OZ OINT TP SCH ×4 (09:00→20:04)
[2018-12-20] MEDS: ZINC OXIDE 30 GM TUBE TP SCH ×2 (09:00→20:04)
[2018-12-20] MEDS: HYDROGEN PEROXIDE 480 ML BOTTLE TP SCH ×2 (09:00→20:04)
[2018-12-20] MEDS: CLOTRIMAZOLE 1% CREAM 24 GM TUBE TP SCH ×2 (09:00→20:04)
[2018-12-20] MEDS: LEVETIRACETAM SOL (5 ML) 100 MG/ML UDC GT SCH ×2 (09:14→20:03)
[2018-12-20] MEDS: BACLOFEN (10 MG) 10 MG TABLET GT SCH ×3 (09:14→17:39)
[2018-12-20] MEDS: FOLIC ACID 1 MG TABLET GT SCH ×2 (09:14→17:39)
[2018-12-20] MEDS: SENNOSIDES 8.6 MG TABLET GT SCH ×2 (09:15→20:03)
[2018-12-20] MEDS: SERTRALINE HCL 25 MG TABLET GT SCH (09:15)
[2018-12-20] MEDS: HEPARIN SODIUM, PORCINE 5000 UNITS/1 ML VIAL SQ SCH ×2 (09:16→20:04)
[2018-12-20] MEDS: JEVITY 1.2 CAL 1,000 ML BOTTLE GT PRN (15:12)
[2018-12-20 19:56] VITALS: BP 102/70
[2018-12-20] MEDS: POLYETHYLENE GLYCOL 3350 17 GM POWD.PACK GT SCH (21:52)
[2018-12-21] MEDS: ALBUTEROL FS 2.5 MG/3 ML VIAL.NEB NEB SCH ×4 (01:01→20:14)
[2018-12-21] MEDS: CHLORHEXIDINE GLUCONATE 15 ML UDC MM SCH ×2 (05:14→17:38)
[2018-12-21] MEDS: POLYVINYL ALCOHOL 15 ML BOTTLE EACHEYE SCH ×4 (05:14→23:26)
[2018-12-21] MEDS: MYCOPHENOLATE MOFETIL SUSP 500 MG/2.5 ML UDC GT SCH ×2 (05:14→17:38)
[2018-12-21] MEDS: JEVITY 1.2 CAL 1,000 ML BOTTLE GT PRN (05:18)
[2018-12-21 07:43] VITALS: BP 110/64
[2018-12-21] MEDS: BACLOFEN (10 MG) 10 MG TABLET GT SCH ×3 (08:14→17:38)
[2018-12-21] MEDS: FOLIC ACID 1 MG TABLET GT SCH ×2 (08:14→17:39)
[2018-12-21] MEDS: LEVETIRACETAM SOL (5 ML) 100 MG/ML UDC GT SCH ×2 (08:14→20:20)
[2018-12-21] MEDS: SERTRALINE HCL 25 MG TABLET GT SCH (08:15)
[2018-12-21] MEDS: SENNOSIDES 8.6 MG TABLET GT SCH ×2 (08:15→20:21)
[2018-12-21] MEDS: HEPARIN SODIUM, PORCINE 5000 UNITS/1 ML VIAL SQ SCH ×2 (08:15→20:21)
[2018-12-21] MEDS: HYDROGEN PEROXIDE 480 ML BOTTLE TP SCH ×2 (09:00→20:21)
[2018-12-21] MEDS: Z GUARD REMEDY 4 OZ OINT TP SCH ×4 (09:00→20:22)
[2018-12-21] MEDS: CLOTRIMAZOLE 1% CREAM 24 GM TUBE TP SCH ×2 (09:00→20:21)
[2018-12-21] MEDS: ZINC OXIDE 30 GM TUBE TP SCH ×2 (09:00→20:22)
[2018-12-21 20:12] VITALS: BP 124/76
[2018-12-21] MEDS: POLYETHYLENE GLYCOL 3350 17 GM POWD.PACK GT SCH (21:39)
[2018-12-22] MEDS: ALBUTEROL FS 2.5 MG/3 ML VIAL.NEB NEB SCH ×4 (02:14→20:12)
[2018-12-22] MEDS: CHLORHEXIDINE GLUCONATE 15 ML UDC MM SCH ×2 (05:19→17:10)
[2018-12-22] MEDS: POLYVINYL ALCOHOL 15 ML BOTTLE EACHEYE SCH ×4 (05:19→23:45)
[2018-12-22] MEDS: MYCOPHENOLATE MOFETIL SUSP 500 MG/2.5 ML UDC GT SCH ×2 (05:19→17:10)
[2018-12-22] MEDS: JEVITY 1.2 CAL 1,000 ML BOTTLE GT PRN ×2 (05:21→23:45)
[2018-12-22 07:50] VITALS: BP 116/76
[2018-12-22] MEDS: BACLOFEN (10 MG) 10 MG TABLET GT SCH ×3 (08:32→17:10)
[2018-12-22] MEDS: SENNOSIDES 8.6 MG TABLET GT SCH ×2 (08:32→20:22)
[2018-12-22] MEDS: FOLIC ACID 1 MG TABLET GT SCH ×2 (08:32→17:10)
[2018-12-22] MEDS: LEVETIRACETAM SOL (5 ML) 100 MG/ML UDC GT SCH ×2 (08:32→20:22)
[2018-12-22] MEDS: ZINC OXIDE 30 GM TUBE TP SCH ×2 (08:33→20:24)
[2018-12-22] MEDS: CLOTRIMAZOLE 1% CREAM 24 GM TUBE TP SCH ×2 (08:33→20:23)
[2018-12-22] MEDS: HEPARIN SODIUM, PORCINE 5000 UNITS/1 ML VIAL SQ SCH ×2 (08:33→20:23)
[2018-12-22] MEDS: Z GUARD REMEDY 4 OZ OINT TP SCH ×4 (08:33→20:24)
[2018-12-22] MEDS: HYDROGEN PEROXIDE 480 ML BOTTLE TP SCH ×2 (08:33→20:23)
[2018-12-22] MEDS: SERTRALINE HCL 25 MG TABLET GT SCH (08:33)
--- NOTE | 2018-12-22 08:53 | NUR ---
SW communicated with pt's father about this Sunday 12/24 IDT meeting
[2018-12-22 21:16] VITALS: BP 100/60
[2018-12-22] MEDS: POLYETHYLENE GLYCOL 3350 17 GM POWD.PACK GT SCH (21:50)
[2018-12-23] MEDS: ALBUTEROL FS 2.5 MG/3 ML VIAL.NEB NEB SCH ×4 (01:44→19:50)
[2018-12-23] MEDS: CHLORHEXIDINE GLUCONATE 15 ML UDC MM SCH ×2 (05:15→18:27)
[2018-12-23] MEDS: POLYVINYL ALCOHOL 15 ML BOTTLE EACHEYE SCH ×3 (05:15→18:27)
[2018-12-23] MEDS: MYCOPHENOLATE MOFETIL SUSP 500 MG/2.5 ML UDC GT SCH ×2 (05:15→18:27)
[2018-12-23 07:30] VITALS: BP 126/58
[2018-12-23] MEDS: LEVETIRACETAM SOL (5 ML) 100 MG/ML UDC GT SCH ×2 (08:59→21:00)
[2018-12-23] MEDS: SENNOSIDES 8.6 MG TABLET GT SCH ×2 (08:59→21:00)
[2018-12-23] MEDS: BACLOFEN (10 MG) 10 MG TABLET GT SCH ×3 (08:59→16:28)
[2018-12-23] MEDS: FOLIC ACID 1 MG TABLET GT SCH ×2 (08:59→16:28)
[2018-12-23] MEDS: SERTRALINE HCL 25 MG TABLET GT SCH (08:59)
[2018-12-23] MEDS: HEPARIN SODIUM, PORCINE 5000 UNITS/1 ML VIAL SQ SCH ×2 (09:00→21:00)
[2018-12-23] MEDS: CLOTRIMAZOLE 1% CREAM 24 GM TUBE TP SCH ×2 (09:00→21:00)
[2018-12-23] MEDS: HYDROGEN PEROXIDE 480 ML BOTTLE TP SCH ×2 (09:00→21:00)
[2018-12-23] MEDS: Z GUARD REMEDY 4 OZ OINT TP SCH ×4 (09:00→21:00)
[2018-12-23] MEDS: ZINC OXIDE 30 GM TUBE TP SCH ×2 (09:00→21:00)
[2018-12-23] MEDS: JEVITY 1.2 CAL 1,000 ML BOTTLE GT PRN (18:27)
[2018-12-23] MEDS: POLYETHYLENE GLYCOL 3350 17 GM POWD.PACK GT SCH (22:14)
[2018-12-24] MEDS: POLYVINYL ALCOHOL 15 ML BOTTLE EACHEYE SCH ×5 (00:46→23:22)
[2018-12-24] MEDS: ALBUTEROL FS 2.5 MG/3 ML VIAL.NEB NEB SCH ×4 (01:53→20:06)
[2018-12-24] MEDS: CHLORHEXIDINE GLUCONATE 15 ML UDC MM SCH ×2 (06:10→18:15)
[2018-12-24] MEDS: MYCOPHENOLATE MOFETIL SUSP 500 MG/2.5 ML UDC GT SCH ×2 (06:10→18:15)
[2018-12-24 08:02] VITALS: BP 95/52
[2018-12-24 08:05] VITALS: BP 114/60
--- NOTE | 2018-12-24 09:30 | NUR ---
Seen and examined by Dr. Jeff dsouza.
[2018-12-24] MEDS: BACLOFEN (10 MG) 10 MG TABLET GT SCH ×3 (09:35→17:00)
[2018-12-24] MEDS: SENNOSIDES 8.6 MG TABLET GT SCH ×2 (09:35→20:32)
[2018-12-24] MEDS: LEVETIRACETAM SOL (5 ML) 100 MG/ML UDC GT SCH ×2 (09:35→20:32)
[2018-12-24] MEDS: FOLIC ACID 1 MG TABLET GT SCH ×2 (09:35→17:00)
[2018-12-24] MEDS: SERTRALINE HCL 25 MG TABLET GT SCH (09:35)
[2018-12-24] MEDS: Z GUARD REMEDY 4 OZ OINT TP SCH ×4 (09:36→20:32)
[2018-12-24] MEDS: ZINC OXIDE 30 GM TUBE TP SCH ×2 (09:36→20:32)
[2018-12-24] MEDS: CLOTRIMAZOLE 1% CREAM 24 GM TUBE TP SCH ×2 (09:36→20:32)
[2018-12-24] MEDS: HYDROGEN PEROXIDE 480 ML BOTTLE TP SCH ×2 (09:36→20:32)
[2018-12-24] MEDS: HEPARIN SODIUM, PORCINE 5000 UNITS/1 ML VIAL SQ SCH ×2 (09:36→20:33)
--- NOTE | 2018-12-24 20:36 | NUR ---
RT NOTE PT RCVD OLE'D ON COOL AEROSOL. TX JIMBO WELL. SX DONE. PT OLE IS PATENT AND SECURE. AMBU BAG AT BEDSIDE. Addendum: 12/24/18 at 2036 by USHA SUMMERS RT Amended: Links added.
[2018-12-24] MEDS: POLYETHYLENE GLYCOL 3350 17 GM POWD.PACK GT SCH (21:06)
[2018-12-25] MEDS: ALBUTEROL FS 2.5 MG/3 ML VIAL.NEB NEB SCH ×4 (01:49→19:52)
[2018-12-25 04:34] VITALS: BP 115/61
[2018-12-25] MEDS: POLYVINYL ALCOHOL 15 ML BOTTLE EACHEYE SCH ×3 (05:09→17:08)
[2018-12-25] MEDS: CHLORHEXIDINE GLUCONATE 15 ML UDC MM SCH ×2 (05:09→17:08)
[2018-12-25] MEDS: MYCOPHENOLATE MOFETIL SUSP 500 MG/2.5 ML UDC GT SCH ×2 (05:10→17:08)
[2018-12-25] MEDS: JEVITY 1.2 CAL 1,000 ML BOTTLE GT PRN ×2 (06:24→10:53)
[2018-12-25 07:37] VITALS: BP 117/69
[2018-12-25] MEDS: HYDROGEN PEROXIDE 480 ML BOTTLE TP SCH ×2 (09:00→21:38)
[2018-12-25] MEDS: ZINC OXIDE 30 GM TUBE TP SCH (09:00)
[2018-12-25] MEDS: Z GUARD REMEDY 4 OZ OINT TP SCH ×4 (09:00→21:38)
[2018-12-25] MEDS: CLOTRIMAZOLE 1% CREAM 24 GM TUBE TP SCH ×2 (09:00→21:38)
[2018-12-25] MEDS: FOLIC ACID 1 MG TABLET GT SCH ×2 (09:40→16:56)
[2018-12-25] MEDS: LEVETIRACETAM SOL (5 ML) 100 MG/ML UDC GT SCH ×2 (09:40→21:37)
[2018-12-25] MEDS: BACLOFEN (10 MG) 10 MG TABLET GT SCH ×3 (09:50→16:56)
[2018-12-25] MEDS: SENNOSIDES 8.6 MG TABLET GT SCH ×2 (09:50→21:38)
[2018-12-25] MEDS: SERTRALINE HCL 25 MG TABLET GT SCH (09:50)
[2018-12-25] MEDS: HEPARIN SODIUM, PORCINE 5000 UNITS/1 ML VIAL SQ SCH ×2 (09:50→21:38)
[2018-12-25 20:28] VITALS: BP 97/58
[2018-12-25] MEDS: POLYETHYLENE GLYCOL 3350 17 GM POWD.PACK GT SCH (21:39)
[2018-12-26] MEDS: POLYVINYL ALCOHOL 15 ML BOTTLE EACHEYE SCH ×4 (00:16→17:32)
[2018-12-26] MEDS: ALBUTEROL FS 2.5 MG/3 ML VIAL.NEB NEB SCH ×4 (02:23→20:18)
[2018-12-26] MEDS: JEVITY 1.2 CAL 1,000 ML BOTTLE GT PRN ×2 (04:10→17:38)
[2018-12-26] MEDS: CHLORHEXIDINE GLUCONATE 15 ML UDC MM SCH ×2 (06:09→17:32)
[2018-12-26] MEDS: MYCOPHENOLATE MOFETIL SUSP 500 MG/2.5 ML UDC GT SCH ×2 (06:09→17:32)
[2018-12-26 08:05] VITALS: BP 103/69
[2018-12-26] MEDS: SENNOSIDES 8.6 MG TABLET GT SCH ×2 (09:40→20:12)
[2018-12-26] MEDS: FOLIC ACID 1 MG TABLET GT SCH ×2 (09:40→17:04)
[2018-12-26] MEDS: BACLOFEN (10 MG) 10 MG TABLET GT SCH ×3 (09:40→17:04)
[2018-12-26] MEDS: LEVETIRACETAM SOL (5 ML) 100 MG/ML UDC GT SCH ×2 (09:40→20:12)
[2018-12-26] MEDS: SERTRALINE HCL 25 MG TABLET GT SCH (09:40)
[2018-12-26] MEDS: HEPARIN SODIUM, PORCINE 5000 UNITS/1 ML VIAL SQ SCH ×2 (09:41→20:13)
[2018-12-26] MEDS: Z GUARD REMEDY 4 OZ OINT TP SCH ×4 (09:41→20:13)
[2018-12-26] MEDS: CLOTRIMAZOLE 1% CREAM 24 GM TUBE TP SCH ×2 (09:41→20:13)
[2018-12-26] MEDS: HYDROGEN PEROXIDE 480 ML BOTTLE TP SCH ×2 (09:41→20:13)
--- NOTE | 2018-12-26 13:21 | NUR ---
Seen and examined by Dr. Aguilar no new orders. Resident is awake watching tv, no respiratory distress noted.
[2018-12-26 20:06] VITALS: BP 105/60
[2018-12-26] MEDS: POLYETHYLENE GLYCOL 3350 17 GM POWD.PACK GT SCH (21:11)
[2018-12-27] MEDS: POLYVINYL ALCOHOL 15 ML BOTTLE EACHEYE SCH ×4 (00:04→18:04)
[2018-12-27] MEDS: ALBUTEROL FS 2.5 MG/3 ML VIAL.NEB NEB SCH ×4 (01:53→19:25)
[2018-12-27] MEDS: MYCOPHENOLATE MOFETIL SUSP 500 MG/2.5 ML UDC GT SCH ×2 (05:25→18:04)
[2018-12-27] MEDS: CHLORHEXIDINE GLUCONATE 15 ML UDC MM SCH ×2 (05:25→18:04)
[2018-12-27 07:57] VITALS: BP 104/71
[2018-12-27] MEDS: CLOTRIMAZOLE 1% CREAM 24 GM TUBE TP SCH ×2 (09:00→20:11)
[2018-12-27] MEDS: SENNOSIDES 8.6 MG TABLET GT SCH ×2 (09:05→20:09)
[2018-12-27] MEDS: SERTRALINE HCL 25 MG TABLET GT SCH (09:05)
[2018-12-27] MEDS: BACLOFEN (10 MG) 10 MG TABLET GT SCH ×3 (09:05→16:42)
[2018-12-27] MEDS: LEVETIRACETAM SOL (5 ML) 100 MG/ML UDC GT SCH ×2 (09:05→20:09)
[2018-12-27] MEDS: FOLIC ACID 1 MG TABLET GT SCH ×2 (09:05→16:42)
[2018-12-27] MEDS: HEPARIN SODIUM, PORCINE 5000 UNITS/1 ML VIAL SQ SCH ×2 (09:07→20:10)
[2018-12-27] MEDS: HYDROGEN PEROXIDE 480 ML BOTTLE TP SCH ×2 (09:08→20:11)
[2018-12-27] MEDS: Z GUARD REMEDY 4 OZ OINT TP SCH ×4 (09:08→20:12)
--- NOTE | 2018-12-27 13:12 | NUR ---
INTERDISCIPLINARY TEAM CONFERENCE (IDT) was held today. Resident's father Dr. Swift was not able to attend today's IDT meeting. Charge nurse Radha noted that pts' inner buttock rash was healing and that pt overall is stable. Dr. Lubin and the interdisciplinary team reviewed the current plan of care in detail. Orders as well as treatment and medications were reviewed .No new orders were given.
[2018-12-27] MEDS: JEVITY 1.2 CAL 1,000 ML BOTTLE GT PRN (15:10)
[2018-12-27 20:26] VITALS: BP 103/83
[2018-12-27] MEDS: POLYETHYLENE GLYCOL 3350 17 GM POWD.PACK GT SCH (21:19)
[2018-12-28] MEDS: POLYVINYL ALCOHOL 15 ML BOTTLE EACHEYE SCH ×4 (00:27→18:22)
[2018-12-28] MEDS: ALBUTEROL FS 2.5 MG/3 ML VIAL.NEB NEB SCH ×4 (00:40→19:29)
[2018-12-28] MEDS: JEVITY 1.2 CAL 1,000 ML BOTTLE GT PRN ×2 (04:22→21:37)
[2018-12-28] MEDS: MYCOPHENOLATE MOFETIL SUSP 500 MG/2.5 ML UDC GT SCH ×2 (05:05→18:22)
[2018-12-28] MEDS: CHLORHEXIDINE GLUCONATE 15 ML UDC MM SCH ×2 (06:08→18:22)
[2018-12-28 07:40] VITALS: BP 144/72
[2018-12-28] MEDS: BACLOFEN (10 MG) 10 MG TABLET GT SCH ×3 (09:34→17:00)
[2018-12-28] MEDS: LEVETIRACETAM SOL (5 ML) 100 MG/ML UDC GT SCH ×2 (09:34→20:19)
[2018-12-28] MEDS: SERTRALINE HCL 25 MG TABLET GT SCH (09:34)
[2018-12-28] MEDS: FOLIC ACID 1 MG TABLET GT SCH ×2 (09:34→17:00)
[2018-12-28] MEDS: SENNOSIDES 8.6 MG TABLET GT SCH ×2 (09:34→20:19)
[2018-12-28] MEDS: HYDROGEN PEROXIDE 480 ML BOTTLE TP SCH ×2 (09:35→20:22)
[2018-12-28] MEDS: HEPARIN SODIUM, PORCINE 5000 UNITS/1 ML VIAL SQ SCH ×2 (09:35→20:22)
[2018-12-28] MEDS: CLOTRIMAZOLE 1% CREAM 24 GM TUBE TP SCH ×2 (09:36→20:22)
[2018-12-28] MEDS: Z GUARD REMEDY 4 OZ OINT TP SCH ×4 (09:36→20:22)
[2018-12-28 20:42] VITALS: BP 132/71
[2018-12-28] MEDS: POLYETHYLENE GLYCOL 3350 17 GM POWD.PACK GT SCH (21:18)
[2018-12-29] MEDS: POLYVINYL ALCOHOL 15 ML BOTTLE EACHEYE SCH ×5 (00:27→23:38)
[2018-12-29] MEDS: ALBUTEROL FS 2.5 MG/3 ML VIAL.NEB NEB SCH ×4 (01:30→20:14)
[2018-12-29] MEDS: CHLORHEXIDINE GLUCONATE 15 ML UDC MM SCH ×2 (05:17→17:11)
[2018-12-29] MEDS: MYCOPHENOLATE MOFETIL SUSP 500 MG/2.5 ML UDC GT SCH ×2 (05:17→17:11)
[2018-12-29] MEDS: CLOTRIMAZOLE 1% CREAM 24 GM TUBE TP SCH ×2 (09:00→20:30)
[2018-12-29] MEDS: Z GUARD REMEDY 4 OZ OINT TP SCH ×4 (09:00→20:31)
[2018-12-29] MEDS: HYDROGEN PEROXIDE 480 ML BOTTLE TP SCH ×2 (09:00→20:30)
[2018-12-29] MEDS: FOLIC ACID 1 MG TABLET GT SCH ×2 (09:13→16:07)
[2018-12-29] MEDS: LEVETIRACETAM SOL (5 ML) 100 MG/ML UDC GT SCH ×2 (09:15→20:29)
[2018-12-29] MEDS: SENNOSIDES 8.6 MG TABLET GT SCH ×2 (09:16→20:29)
[2018-12-29] MEDS: SERTRALINE HCL 25 MG TABLET GT SCH (09:16)
[2018-12-29] MEDS: BACLOFEN (10 MG) 10 MG TABLET GT SCH ×3 (09:16→16:07)
[2018-12-29] MEDS: HEPARIN SODIUM, PORCINE 5000 UNITS/1 ML VIAL SQ SCH ×2 (09:17→20:30)
[2018-12-29 10:02] VITALS: BP 126/71
[2018-12-29] MEDS: JEVITY 1.2 CAL 1,000 ML BOTTLE GT PRN (16:08)
[2018-12-29 20:26] VITALS: BP_SYST 109; BP_SYST 145; BP_DIAS 51; BP_DIAS 91
[2018-12-29] MEDS: POLYETHYLENE GLYCOL 3350 17 GM POWD.PACK GT SCH (21:19)
[2018-12-30] MEDS: ALBUTEROL FS 2.5 MG/3 ML VIAL.NEB NEB SCH ×4 (01:27→20:05)
[2018-12-30] MEDS: MYCOPHENOLATE MOFETIL SUSP 500 MG/2.5 ML UDC GT SCH ×2 (05:15→18:04)
[2018-12-30] MEDS: POLYVINYL ALCOHOL 15 ML BOTTLE EACHEYE SCH ×3 (05:15→18:04)
[2018-12-30] MEDS: CHLORHEXIDINE GLUCONATE 15 ML UDC MM SCH ×2 (05:15→18:04)
[2018-12-30 08:03] VITALS: BP 101/77
[2018-12-30] MEDS: Z GUARD REMEDY 4 OZ OINT TP SCH ×4 (09:00→21:46)
[2018-12-30] MEDS: HYDROGEN PEROXIDE 480 ML BOTTLE TP SCH ×2 (09:00→21:46)
[2018-12-30] MEDS: CLOTRIMAZOLE 1% CREAM 24 GM TUBE TP SCH ×2 (09:00→21:46)
[2018-12-30] MEDS: HEPARIN SODIUM, PORCINE 5000 UNITS/1 ML VIAL SQ SCH ×2 (09:19→21:46)
[2018-12-30] MEDS: SENNOSIDES 8.6 MG TABLET GT SCH ×2 (09:19→21:45)
[2018-12-30] MEDS: LEVETIRACETAM SOL (5 ML) 100 MG/ML UDC GT SCH ×2 (09:19→21:45)
[2018-12-30] MEDS: SERTRALINE HCL 25 MG TABLET GT SCH (09:19)
[2018-12-30] MEDS: FOLIC ACID 1 MG TABLET GT SCH ×2 (09:19→16:39)
[2018-12-30] MEDS: BACLOFEN (10 MG) 10 MG TABLET GT SCH ×3 (09:19→16:39)
[2018-12-30] MEDS: JEVITY 1.2 CAL 1,000 ML BOTTLE GT PRN (16:40)
[2018-12-30 20:23] VITALS: BP 119/76
[2018-12-30] MEDS: POLYETHYLENE GLYCOL 3350 17 GM POWD.PACK GT SCH (21:46)
[2018-12-31] MEDS: POLYVINYL ALCOHOL 15 ML BOTTLE EACHEYE SCH ×4 (00:11→17:03)
[2018-12-31] MEDS: ALBUTEROL FS 2.5 MG/3 ML VIAL.NEB NEB SCH ×4 (00:58→19:59)
[2018-12-31] MEDS: JEVITY 1.2 CAL 1,000 ML BOTTLE GT PRN ×2 (04:44→18:18)
[2018-12-31] MEDS: MYCOPHENOLATE MOFETIL SUSP 500 MG/2.5 ML UDC GT SCH ×2 (06:30→17:03)
[2018-12-31] MEDS: CHLORHEXIDINE GLUCONATE 15 ML UDC MM SCH ×2 (06:30→17:03)
[2018-12-31 07:31] VITALS: BP 114/59
[2018-12-31] MEDS: FOLIC ACID 1 MG TABLET GT SCH ×2 (08:12→17:03)
[2018-12-31] MEDS: LEVETIRACETAM SOL (5 ML) 100 MG/ML UDC GT SCH ×2 (08:13→20:03)
[2018-12-31] MEDS: SENNOSIDES 8.6 MG TABLET GT SCH ×2 (08:13→20:03)
[2018-12-31] MEDS: HEPARIN SODIUM, PORCINE 5000 UNITS/1 ML VIAL SQ SCH ×2 (08:13→20:03)
[2018-12-31] MEDS: SERTRALINE HCL 25 MG TABLET GT SCH (08:13)
[2018-12-31] MEDS: BACLOFEN (10 MG) 10 MG TABLET GT SCH ×3 (08:13→17:03)
[2018-12-31] MEDS: Z GUARD REMEDY 4 OZ OINT TP SCH ×4 (09:00→20:04)
[2018-12-31] MEDS: CLOTRIMAZOLE 1% CREAM 24 GM TUBE TP SCH ×2 (09:00→20:03)
[2018-12-31] MEDS: HYDROGEN PEROXIDE 480 ML BOTTLE TP SCH ×2 (09:00→20:03)
[2018-12-31 20:05] VITALS: BP 109/73
[2018-12-31] MEDS: POLYETHYLENE GLYCOL 3350 17 GM POWD.PACK GT SCH (21:15)
[2019-01-01] MEDS: POLYVINYL ALCOHOL 15 ML BOTTLE EACHEYE SCH ×5 (00:15→23:32)
[2019-01-01] MEDS: ALBUTEROL FS 2.5 MG/3 ML VIAL.NEB NEB SCH ×4 (01:51→19:27)
[2019-01-01] MEDS: MYCOPHENOLATE MOFETIL SUSP 500 MG/2.5 ML UDC GT SCH ×2 (05:26→17:17)
[2019-01-01] MEDS: CHLORHEXIDINE GLUCONATE 15 ML UDC MM SCH ×2 (05:27→17:17)
[2019-01-01 08:00] VITALS: BP 117/57
[2019-01-01] MEDS: HYDROGEN PEROXIDE 480 ML BOTTLE TP SCH ×2 (09:00→20:47)
[2019-01-01] MEDS: SENNOSIDES 8.6 MG TABLET GT SCH ×2 (09:00→20:36)
[2019-01-01] MEDS: FOLIC ACID 1 MG TABLET GT SCH ×2 (09:00→17:17)
[2019-01-01] MEDS: BACLOFEN (10 MG) 10 MG TABLET GT SCH ×3 (09:00→17:17)
[2019-01-01] MEDS: LEVETIRACETAM SOL (5 ML) 100 MG/ML UDC GT SCH ×2 (09:00→20:36)
[2019-01-01] MEDS: CLOTRIMAZOLE 1% CREAM 24 GM TUBE TP SCH (09:00)
[2019-01-01] MEDS: SERTRALINE HCL 25 MG TABLET GT SCH (09:00)
[2019-01-01] MEDS: Z GUARD REMEDY 4 OZ OINT TP SCH ×3 (09:00→20:47)
[2019-01-01] MEDS: HEPARIN SODIUM, PORCINE 5000 UNITS/1 ML VIAL SQ SCH ×2 (09:00→20:57)
[2019-01-01] MEDS: JEVITY 1.2 CAL 1,000 ML BOTTLE GT PRN (13:10)
[2019-01-01 20:49] VITALS: BP 135/69
[2019-01-01] MEDS: POLYETHYLENE GLYCOL 3350 17 GM POWD.PACK GT SCH (21:20)
[2019-01-02] MEDS: ALBUTEROL FS 2.5 MG/3 ML VIAL.NEB NEB SCH ×4 (01:32→20:32)
[2019-01-02] MEDS: JEVITY 1.2 CAL 1,000 ML BOTTLE GT PRN ×2 (02:01→21:20)
[2019-01-02] MEDS: MYCOPHENOLATE MOFETIL SUSP 500 MG/2.5 ML UDC GT SCH ×2 (05:33→17:37)
[2019-01-02] MEDS: CHLORHEXIDINE GLUCONATE 15 ML UDC MM SCH ×2 (05:33→17:37)
[2019-01-02] MEDS: POLYVINYL ALCOHOL 15 ML BOTTLE EACHEYE SCH ×3 (05:38→17:37)
[2019-01-02 08:09] VITALS: BP 113/67
[2019-01-02] MEDS: BACLOFEN (10 MG) 10 MG TABLET GT SCH ×3 (09:00→17:37)
[2019-01-02] MEDS: HEPARIN SODIUM, PORCINE 5000 UNITS/1 ML VIAL SQ SCH ×2 (09:00→20:23)
[2019-01-02] MEDS: SENNOSIDES 8.6 MG TABLET GT SCH ×2 (09:00→20:21)
[2019-01-02] MEDS: LEVETIRACETAM SOL (5 ML) 100 MG/ML UDC GT SCH ×2 (09:00→20:21)
[2019-01-02] MEDS: Z GUARD REMEDY 4 OZ OINT TP SCH ×2 (09:00→20:24)
[2019-01-02] MEDS: FOLIC ACID 1 MG TABLET GT SCH ×2 (09:00→17:37)
[2019-01-02] MEDS: SERTRALINE HCL 25 MG TABLET GT SCH (09:00)
[2019-01-02] MEDS: HYDROGEN PEROXIDE 480 ML BOTTLE TP SCH ×2 (09:00→20:24)
[2019-01-02 19:37] VITALS: BP 113/82
[2019-01-02] MEDS: POLYETHYLENE GLYCOL 3350 17 GM POWD.PACK GT SCH (21:20)
[2019-01-03] MEDS: POLYVINYL ALCOHOL 15 ML BOTTLE EACHEYE SCH ×4 (00:04→17:02)
[2019-01-03] MEDS: ALBUTEROL FS 2.5 MG/3 ML VIAL.NEB NEB SCH ×4 (01:08→20:11)
[2019-01-03] MEDS: CHLORHEXIDINE GLUCONATE 15 ML UDC MM SCH ×2 (05:25→17:57)
[2019-01-03] MEDS: MYCOPHENOLATE MOFETIL SUSP 500 MG/2.5 ML UDC GT SCH ×2 (05:25→17:57)
[2019-01-03 07:56] VITALS: BP 118/72
[2019-01-03] MEDS: BACLOFEN (10 MG) 10 MG TABLET GT SCH ×3 (08:39→17:02)
[2019-01-03] MEDS: SENNOSIDES 8.6 MG TABLET GT SCH ×2 (08:39→20:02)
[2019-01-03] MEDS: SERTRALINE HCL 25 MG TABLET GT SCH (08:39)
[2019-01-03] MEDS: FOLIC ACID 1 MG TABLET GT SCH ×2 (08:39→17:01)
[2019-01-03] MEDS: LEVETIRACETAM SOL (5 ML) 100 MG/ML UDC GT SCH ×2 (08:39→20:01)
[2019-01-03] MEDS: HYDROGEN PEROXIDE 480 ML BOTTLE TP SCH ×2 (08:40→20:04)
[2019-01-03] MEDS: HEPARIN SODIUM, PORCINE 5000 UNITS/1 ML VIAL SQ SCH ×2 (08:40→20:04)
[2019-01-03] MEDS: Z GUARD REMEDY 4 OZ OINT TP SCH ×2 (08:41→20:04)
--- NOTE | 2019-01-03 12:27 | NUR ---
INNER CANNULA, TRACH TIE AND GAUZE CHANGED BY RT AND RN. NO ADVERSE REACTIONS, NO RESP DISTRESS NOTED.
[2019-01-03 20:23] VITALS: BP 115/70
[2019-01-03] MEDS: POLYETHYLENE GLYCOL 3350 17 GM POWD.PACK GT SCH (21:20)
[2019-01-04] MEDS: POLYVINYL ALCOHOL 15 ML BOTTLE EACHEYE SCH ×4 (00:15→17:12)
[2019-01-04] MEDS: ALBUTEROL FS 2.5 MG/3 ML VIAL.NEB NEB SCH ×4 (01:58→20:30)
[2019-01-04] MEDS: CHLORHEXIDINE GLUCONATE 15 ML UDC MM SCH ×2 (05:11→17:13)
[2019-01-04] MEDS: MYCOPHENOLATE MOFETIL SUSP 500 MG/2.5 ML UDC GT SCH ×2 (05:11→17:13)
[2019-01-04 07:42] VITALS: BP 101/73
[2019-01-04] MEDS: FOLIC ACID 1 MG TABLET GT SCH ×2 (09:00→17:12)
[2019-01-04] MEDS: HYDROGEN PEROXIDE 480 ML BOTTLE TP SCH ×2 (09:00→20:08)
[2019-01-04] MEDS: SENNOSIDES 8.6 MG TABLET GT SCH ×2 (09:00→20:07)
[2019-01-04] MEDS: BACLOFEN (10 MG) 10 MG TABLET GT SCH ×3 (09:00→17:12)
[2019-01-04] MEDS: Z GUARD REMEDY 4 OZ OINT TP SCH ×2 (09:00→20:08)
[2019-01-04] MEDS: HEPARIN SODIUM, PORCINE 5000 UNITS/1 ML VIAL SQ SCH ×2 (09:00→20:08)
[2019-01-04] MEDS: SERTRALINE HCL 25 MG TABLET GT SCH (09:00)
[2019-01-04] MEDS: LEVETIRACETAM SOL (5 ML) 100 MG/ML UDC GT SCH ×2 (09:00→20:07)
--- NOTE | 2019-01-04 09:30 | NUR ---
Seen and examined by Dr. Lubin, plate and frame filter operator. NNO given at this time.
[2019-01-04] MEDS: JEVITY 1.2 CAL 1,000 ML BOTTLE GT PRN (12:28)
--- NOTE | 2019-01-04 12:40 | NUR ---
Seen and examined by Dr. Aguilar, NNO given.
--- NOTE | 2019-01-04 15:50 | NUR ---
RT MONTHLY TRACH CHANGE PER RT PROTOCOL. RN NOTIFIED AND AWARE. TOLERATED PROCEDURE WELL, NO RESPIRATORY COMPLICATIONS NOTED. NO REDNESS OR BLEEDING NOTED. BILAT BREATH SOUNDS ON AUSCULTATION. SUCTIONED SMALL AMOUNTS OF THICK PALE YELLOW SECRETIONS. TRACH SECURED AND PATENT. SPARE TRACH AND AMBU BAG AT HEAD OF BED. WILL CONTINUE TO MONITOR THE PATIENT FOR ANY CHANGE OF CONDITION.
[2019-01-04] MEDS: POLYETHYLENE GLYCOL 3350 17 GM POWD.PACK GT SCH (21:16)
[2019-01-05] MEDS: POLYVINYL ALCOHOL 15 ML BOTTLE EACHEYE SCH ×5 (00:19→23:57)
[2019-01-05] MEDS: ALBUTEROL FS 2.5 MG/3 ML VIAL.NEB NEB SCH ×4 (01:31→20:03)
[2019-01-05] MEDS: JEVITY 1.2 CAL 1,000 ML BOTTLE GT PRN ×2 (02:41→17:44)
[2019-01-05] MEDS: MYCOPHENOLATE MOFETIL SUSP 500 MG/2.5 ML UDC GT SCH ×2 (05:21→17:05)
[2019-01-05] MEDS: CHLORHEXIDINE GLUCONATE 15 ML UDC MM SCH ×2 (06:07→17:05)
[2019-01-05 07:08] VITALS: BP 108/76
[2019-01-05 08:12] VITALS: BP 103/55
[2019-01-05] MEDS: SERTRALINE HCL 25 MG TABLET GT SCH (08:55)
[2019-01-05] MEDS: HEPARIN SODIUM, PORCINE 5000 UNITS/1 ML VIAL SQ SCH ×2 (08:55→21:18)
[2019-01-05] MEDS: BACLOFEN (10 MG) 10 MG TABLET GT SCH ×3 (08:55→17:05)
[2019-01-05] MEDS: SENNOSIDES 8.6 MG TABLET GT SCH ×2 (08:55→21:17)
[2019-01-05] MEDS: FOLIC ACID 1 MG TABLET GT SCH ×2 (08:55→17:04)
[2019-01-05] MEDS: LEVETIRACETAM SOL (5 ML) 100 MG/ML UDC GT SCH ×2 (08:55→21:17)
[2019-01-05] MEDS: Z GUARD REMEDY 4 OZ OINT TP SCH ×2 (08:56→21:18)
[2019-01-05] MEDS: HYDROGEN PEROXIDE 480 ML BOTTLE TP SCH ×2 (08:56→21:18)
--- NOTE | 2019-01-05 15:08 | NUR ---
Seen and examined by Dr. Jeff dsouza.
[2019-01-05 19:57] VITALS: BP 126/74
[2019-01-05] MEDS: POLYETHYLENE GLYCOL 3350 17 GM POWD.PACK GT SCH (21:18)
[2019-01-06] MEDS: ALBUTEROL FS 2.5 MG/3 ML VIAL.NEB NEB SCH ×4 (00:57→20:45)
[2019-01-06] MEDS: MYCOPHENOLATE MOFETIL SUSP 500 MG/2.5 ML UDC GT SCH ×2 (05:56→17:53)
[2019-01-06] MEDS: CHLORHEXIDINE GLUCONATE 15 ML UDC MM SCH ×2 (05:56→17:53)
[2019-01-06] MEDS: POLYVINYL ALCOHOL 15 ML BOTTLE EACHEYE SCH ×4 (05:56→23:47)
[2019-01-06 08:04] VITALS: BP 92/48
[2019-01-06] MEDS: BACLOFEN (10 MG) 10 MG TABLET GT SCH ×3 (09:00→17:53)
[2019-01-06] MEDS: HYDROGEN PEROXIDE 480 ML BOTTLE TP SCH ×2 (09:00→21:16)
[2019-01-06] MEDS: SENNOSIDES 8.6 MG TABLET GT SCH ×2 (09:00→21:15)
[2019-01-06] MEDS: LEVETIRACETAM SOL (5 ML) 100 MG/ML UDC GT SCH ×2 (09:00→21:15)
[2019-01-06] MEDS: Z GUARD REMEDY 4 OZ OINT TP SCH ×2 (09:00→21:16)
[2019-01-06] MEDS: FOLIC ACID 1 MG TABLET GT SCH ×2 (09:00→17:53)
[2019-01-06] MEDS: HEPARIN SODIUM, PORCINE 5000 UNITS/1 ML VIAL SQ SCH ×2 (09:00→21:16)
[2019-01-06] MEDS: SERTRALINE HCL 25 MG TABLET GT SCH (09:00)
[2019-01-06] MEDS: JEVITY 1.2 CAL 1,000 ML BOTTLE GT PRN (14:03)
--- NOTE | 2019-01-06 19:30 | NUR ---
Seen and examined by Sugar levy.
[2019-01-06 20:36] VITALS: BP 112/76
[2019-01-06] MEDS: POLYETHYLENE GLYCOL 3350 17 GM POWD.PACK GT SCH (21:16)
[2019-01-07] MEDS: ALBUTEROL FS 2.5 MG/3 ML VIAL.NEB NEB SCH ×4 (02:32→20:35)
[2019-01-07] MEDS: MYCOPHENOLATE MOFETIL SUSP 500 MG/2.5 ML UDC GT SCH ×2 (05:29→18:19)
[2019-01-07] MEDS: CHLORHEXIDINE GLUCONATE 15 ML UDC MM SCH ×2 (05:29→17:34)
[2019-01-07] MEDS: POLYVINYL ALCOHOL 15 ML BOTTLE EACHEYE SCH ×4 (05:29→23:43)
[2019-01-07] MEDS: JEVITY 1.2 CAL 1,000 ML BOTTLE GT PRN ×2 (06:00→23:42)
[2019-01-07 07:26] VITALS: BP 100/71
[2019-01-07] MEDS: HYDROGEN PEROXIDE 480 ML BOTTLE TP SCH ×2 (09:00→20:25)
[2019-01-07] MEDS: FOLIC ACID 1 MG TABLET GT SCH ×2 (09:55→17:34)
[2019-01-07] MEDS: BACLOFEN (10 MG) 10 MG TABLET GT SCH ×3 (09:55→17:34)
[2019-01-07] MEDS: LEVETIRACETAM SOL (5 ML) 100 MG/ML UDC GT SCH ×2 (09:55→20:24)
[2019-01-07] MEDS: SERTRALINE HCL 25 MG TABLET GT SCH (09:55)
[2019-01-07] MEDS: HEPARIN SODIUM, PORCINE 5000 UNITS/1 ML VIAL SQ SCH ×2 (09:55→21:49)
[2019-01-07] MEDS: SENNOSIDES 8.6 MG TABLET GT SCH ×2 (09:55→20:25)
[2019-01-07] MEDS: Z GUARD REMEDY 4 OZ OINT TP SCH ×2 (09:56→20:25)
[2019-01-07 20:19] VITALS: BP 119/59
[2019-01-07] MEDS: POLYETHYLENE GLYCOL 3350 17 GM POWD.PACK GT SCH (21:49)
[2019-01-08] MEDS: ALBUTEROL FS 2.5 MG/3 ML VIAL.NEB NEB SCH ×4 (01:26→20:07)
[2019-01-08] MEDS: CHLORHEXIDINE GLUCONATE 15 ML UDC MM SCH ×2 (05:54→18:10)
[2019-01-08] MEDS: MYCOPHENOLATE MOFETIL SUSP 500 MG/2.5 ML UDC GT SCH ×2 (05:54→18:10)
[2019-01-08] MEDS: POLYVINYL ALCOHOL 15 ML BOTTLE EACHEYE SCH ×3 (05:54→18:10)
[2019-01-08 07:50] VITALS: BP 122/55
[2019-01-08] MEDS: BACLOFEN (10 MG) 10 MG TABLET GT SCH ×3 (09:00→17:00)
[2019-01-08] MEDS: SERTRALINE HCL 25 MG TABLET GT SCH (09:00)
[2019-01-08] MEDS: Z GUARD REMEDY 4 OZ OINT TP SCH ×2 (09:00→21:25)
[2019-01-08] MEDS: FOLIC ACID 1 MG TABLET GT SCH ×2 (09:00→17:00)
[2019-01-08] MEDS: LEVETIRACETAM SOL (5 ML) 100 MG/ML UDC GT SCH ×2 (09:00→21:25)
[2019-01-08] MEDS: SENNOSIDES 8.6 MG TABLET GT SCH ×2 (09:00→21:25)
[2019-01-08] MEDS: HYDROGEN PEROXIDE 480 ML BOTTLE TP SCH ×2 (09:00→21:25)
[2019-01-08] MEDS: HEPARIN SODIUM, PORCINE 5000 UNITS/1 ML VIAL SQ SCH ×2 (09:00→21:25)
[2019-01-08] MEDS: JEVITY 1.2 CAL 1,000 ML BOTTLE GT PRN (18:10)
[2019-01-08 20:22] VITALS: BP 112/72
[2019-01-08] MEDS: POLYETHYLENE GLYCOL 3350 17 GM POWD.PACK GT SCH (21:25)
[2019-01-09] MEDS: POLYVINYL ALCOHOL 15 ML BOTTLE EACHEYE SCH ×5 (00:19→23:09)
[2019-01-09] MEDS: ALBUTEROL FS 2.5 MG/3 ML VIAL.NEB NEB SCH ×4 (01:31→19:39)
[2019-01-09] MEDS: CHLORHEXIDINE GLUCONATE 15 ML UDC MM SCH ×2 (05:54→17:27)
[2019-01-09] MEDS: MYCOPHENOLATE MOFETIL SUSP 500 MG/2.5 ML UDC GT SCH ×2 (05:54→17:27)
[2019-01-09 07:54] VITALS: BP 119/72
[2019-01-09] MEDS: SENNOSIDES 8.6 MG TABLET GT SCH ×2 (09:00→21:16)
[2019-01-09] MEDS: BACLOFEN (10 MG) 10 MG TABLET GT SCH ×3 (09:00→16:34)
[2019-01-09] MEDS: FOLIC ACID 1 MG TABLET GT SCH ×2 (09:00→16:34)
[2019-01-09] MEDS: HEPARIN SODIUM, PORCINE 5000 UNITS/1 ML VIAL SQ SCH ×2 (09:00→21:17)
[2019-01-09] MEDS: HYDROGEN PEROXIDE 480 ML BOTTLE TP SCH ×2 (09:00→21:17)
[2019-01-09] MEDS: SERTRALINE HCL 25 MG TABLET GT SCH (09:00)
[2019-01-09] MEDS: Z GUARD REMEDY 4 OZ OINT TP SCH ×2 (09:00→21:17)
[2019-01-09] MEDS: LEVETIRACETAM SOL (5 ML) 100 MG/ML UDC GT SCH ×2 (09:00→21:16)
[2019-01-09] MEDS: JEVITY 1.2 CAL 1,000 ML BOTTLE GT PRN (18:03)
[2019-01-09 19:58] VITALS: BP 125/78
[2019-01-09] MEDS: POLYETHYLENE GLYCOL 3350 17 GM POWD.PACK GT SCH (21:17)
[2019-01-10] MEDS: ALBUTEROL FS 2.5 MG/3 ML VIAL.NEB NEB SCH ×4 (01:33→19:28)
[2019-01-10] MEDS: CHLORHEXIDINE GLUCONATE 15 ML UDC MM SCH ×2 (05:23→17:24)
[2019-01-10] MEDS: MYCOPHENOLATE MOFETIL SUSP 500 MG/2.5 ML UDC GT SCH ×2 (05:23→17:24)
[2019-01-10] MEDS: POLYVINYL ALCOHOL 15 ML BOTTLE EACHEYE SCH ×4 (05:23→23:40)
[2019-01-10 07:45] VITALS: BP 130/39
[2019-01-10 07:56] VITALS: BP 91/49
[2019-01-10 09:00] VITALS: BP 110/60
[2019-01-10] MEDS: HYDROGEN PEROXIDE 480 ML BOTTLE TP SCH ×2 (09:00→21:31)
[2019-01-10] MEDS: LEVETIRACETAM SOL (5 ML) 100 MG/ML UDC GT SCH ×2 (09:32→21:30)
[2019-01-10] MEDS: FOLIC ACID 1 MG TABLET GT SCH ×2 (09:32→16:23)
[2019-01-10] MEDS: BACLOFEN (10 MG) 10 MG TABLET GT SCH ×3 (09:33→16:23)
[2019-01-10] MEDS: SENNOSIDES 8.6 MG TABLET GT SCH ×2 (09:33→21:30)
[2019-01-10] MEDS: SERTRALINE HCL 25 MG TABLET GT SCH (09:33)
[2019-01-10] MEDS: HEPARIN SODIUM, PORCINE 5000 UNITS/1 ML VIAL SQ SCH ×2 (09:35→21:31)
[2019-01-10] MEDS: Z GUARD REMEDY 4 OZ OINT TP SCH ×2 (09:35→21:31)
[2019-01-10] MEDS: JEVITY 1.2 CAL 1,000 ML BOTTLE GT PRN (13:32)
[2019-01-10 19:35] VITALS: BP 117/59
[2019-01-10] MEDS: POLYETHYLENE GLYCOL 3350 17 GM POWD.PACK GT SCH (21:31)
[2019-01-11] MEDS: ALBUTEROL FS 2.5 MG/3 ML VIAL.NEB NEB SCH ×4 (01:42→20:01)
[2019-01-11] MEDS: MYCOPHENOLATE MOFETIL SUSP 500 MG/2.5 ML UDC GT SCH ×2 (05:34→17:54)
[2019-01-11] MEDS: CHLORHEXIDINE GLUCONATE 15 ML UDC MM SCH ×2 (05:34→17:54)
[2019-01-11] MEDS: POLYVINYL ALCOHOL 15 ML BOTTLE EACHEYE SCH ×4 (05:34→23:05)
[2019-01-11 07:16] VITALS: BP 94/61
[2019-01-11] MEDS: FOLIC ACID 1 MG TABLET GT SCH ×2 (09:38→17:54)
[2019-01-11] MEDS: HEPARIN SODIUM, PORCINE 5000 UNITS/1 ML VIAL SQ SCH ×2 (09:39→21:05)
[2019-01-11] MEDS: HYDROGEN PEROXIDE 480 ML BOTTLE TP SCH ×2 (09:39→20:05)
[2019-01-11] MEDS: LEVETIRACETAM SOL (5 ML) 100 MG/ML UDC GT SCH ×2 (09:39→21:04)
[2019-01-11] MEDS: Z GUARD REMEDY 4 OZ OINT TP SCH ×2 (09:39→21:05)
[2019-01-11] MEDS: SENNOSIDES 8.6 MG TABLET GT SCH ×2 (09:39→21:04)
[2019-01-11] MEDS: BACLOFEN (10 MG) 10 MG TABLET GT SCH ×3 (09:39→17:54)
[2019-01-11] MEDS: SERTRALINE HCL 25 MG TABLET GT SCH (09:39)
[2019-01-11] MEDS: JEVITY 1.2 CAL 1,000 ML BOTTLE GT PRN (18:04)
[2019-01-11 20:42] VITALS: BP 106/76
[2019-01-11] MEDS: POLYETHYLENE GLYCOL 3350 17 GM POWD.PACK GT SCH (21:05)
[2019-01-12] MEDS: ALBUTEROL FS 2.5 MG/3 ML VIAL.NEB NEB SCH ×4 (02:26→20:28)
[2019-01-12] MEDS: MYCOPHENOLATE MOFETIL SUSP 500 MG/2.5 ML UDC GT SCH ×2 (05:25→17:16)
[2019-01-12] MEDS: POLYVINYL ALCOHOL 15 ML BOTTLE EACHEYE SCH ×3 (05:25→17:16)
[2019-01-12] MEDS: CHLORHEXIDINE GLUCONATE 15 ML UDC MM SCH ×2 (05:25→17:16)
[2019-01-12 07:48] VITALS: BP 109/65
[2019-01-12] MEDS: LEVETIRACETAM SOL (5 ML) 100 MG/ML UDC GT SCH ×2 (08:13→20:37)
[2019-01-12] MEDS: FOLIC ACID 1 MG TABLET GT SCH ×2 (08:13→17:16)
[2019-01-12] MEDS: SERTRALINE HCL 25 MG TABLET GT SCH (08:15)
[2019-01-12] MEDS: BACLOFEN (10 MG) 10 MG TABLET GT SCH ×3 (08:15→17:16)
[2019-01-12] MEDS: SENNOSIDES 8.6 MG TABLET GT SCH ×2 (08:15→20:37)
[2019-01-12] MEDS: Z GUARD REMEDY 4 OZ OINT TP SCH ×2 (08:17→20:37)
[2019-01-12] MEDS: HEPARIN SODIUM, PORCINE 5000 UNITS/1 ML VIAL SQ SCH ×2 (08:17→20:37)
[2019-01-12] MEDS: JEVITY 1.2 CAL 1,000 ML BOTTLE GT PRN (08:36)
[2019-01-12 20:32] VITALS: BP 133/80
[2019-01-12] MEDS: HYDROGEN PEROXIDE 480 ML BOTTLE TP SCH (21:00)
[2019-01-12] MEDS: POLYETHYLENE GLYCOL 3350 17 GM POWD.PACK GT SCH (22:00)
[2019-01-13] MEDS: POLYVINYL ALCOHOL 15 ML BOTTLE EACHEYE SCH ×4 (00:06→17:03)
[2019-01-13] MEDS: ALBUTEROL FS 2.5 MG/3 ML VIAL.NEB NEB SCH ×4 (01:32→19:58)
[2019-01-13] MEDS: JEVITY 1.2 CAL 1,000 ML BOTTLE GT PRN (02:18)
[2019-01-13] MEDS: MYCOPHENOLATE MOFETIL SUSP 500 MG/2.5 ML UDC GT SCH ×2 (05:33→17:03)
[2019-01-13] MEDS: CHLORHEXIDINE GLUCONATE 15 ML UDC MM SCH ×2 (05:33→17:03)
[2019-01-13 07:50] VITALS: BP 111/71
[2019-01-13] MEDS: HYDROGEN PEROXIDE 480 ML BOTTLE TP SCH ×2 (09:00→21:11)
[2019-01-13] MEDS: HEPARIN SODIUM, PORCINE 5000 UNITS/1 ML VIAL SQ SCH ×2 (09:58→21:11)
[2019-01-13] MEDS: BACLOFEN (10 MG) 10 MG TABLET GT SCH ×3 (09:58→17:03)
[2019-01-13] MEDS: LEVETIRACETAM SOL (5 ML) 100 MG/ML UDC GT SCH ×2 (09:58→21:10)
[2019-01-13] MEDS: SENNOSIDES 8.6 MG TABLET GT SCH ×2 (09:58→21:10)
[2019-01-13] MEDS: FOLIC ACID 1 MG TABLET GT SCH ×2 (09:58→17:03)
[2019-01-13] MEDS: SERTRALINE HCL 25 MG TABLET GT SCH (09:58)
[2019-01-13] MEDS: Z GUARD REMEDY 4 OZ OINT TP SCH ×2 (09:59→21:11)
[2019-01-13] MEDS: POLYETHYLENE GLYCOL 3350 17 GM POWD.PACK GT SCH (21:11)
[2019-01-14] MEDS: ALBUTEROL FS 2.5 MG/3 ML VIAL.NEB NEB SCH ×4 (00:52→19:30)
[2019-01-14 04:17] VITALS: BP 70/50
[2019-01-14] MEDS: POLYVINYL ALCOHOL 15 ML BOTTLE EACHEYE SCH ×4 (06:14→17:25)
[2019-01-14] MEDS: CHLORHEXIDINE GLUCONATE 15 ML UDC MM SCH ×2 (06:14→17:25)
[2019-01-14] MEDS: MYCOPHENOLATE MOFETIL SUSP 500 MG/2.5 ML UDC GT SCH ×2 (06:14→17:25)
[2019-01-14 07:32] VITALS: BP 115/57
--- NOTE | 2019-01-14 08:27 | NUR ---
Seen and examined by Dr. Aguilar, NNO given.
[2019-01-14] MEDS: HYDROGEN PEROXIDE 480 ML BOTTLE TP SCH ×2 (09:08→20:11)
[2019-01-14] MEDS: LEVETIRACETAM SOL (5 ML) 100 MG/ML UDC GT SCH ×2 (09:22→20:09)
[2019-01-14] MEDS: Z GUARD REMEDY 4 OZ OINT TP SCH ×2 (09:22→20:11)
[2019-01-14] MEDS: SENNOSIDES 8.6 MG TABLET GT SCH ×2 (09:22→20:10)
[2019-01-14] MEDS: HEPARIN SODIUM, PORCINE 5000 UNITS/1 ML VIAL SQ SCH ×2 (09:22→20:11)
[2019-01-14] MEDS: BACLOFEN (10 MG) 10 MG TABLET GT SCH ×3 (09:22→17:25)
[2019-01-14] MEDS: SERTRALINE HCL 25 MG TABLET GT SCH (09:22)
[2019-01-14] MEDS: FOLIC ACID 1 MG TABLET GT SCH ×2 (09:22→17:25)
[2019-01-14] MEDS: JEVITY 1.2 CAL 1,000 ML BOTTLE GT PRN ×2 (13:51)
[2019-01-14 19:29] VITALS: BP 128/77
--- NOTE | 2019-01-14 20:44 | NUR ---
RECEIVED TRACH PT ON COOL AEROSOL 28% 5L. AMBU BAG @ BEDSIDE. PT IS AWAKE AND NON VERBAL. Q6 BREATHING TX GIVEN PER MD ORDERS WITH NO ADVERSE REACTION NOTED. SX DONE PRN. TRACH PATENT AND SECURED. NO RESP DISTRESS NOTED AT THIS TIME. WILL CONTINUE TO MONITOR PT.
[2019-01-14] MEDS: POLYETHYLENE GLYCOL 3350 17 GM POWD.PACK GT SCH (22:00)
[2019-01-15] MEDS: POLYVINYL ALCOHOL 15 ML BOTTLE EACHEYE SCH ×4 (00:09→17:50)
[2019-01-15] MEDS: ALBUTEROL FS 2.5 MG/3 ML VIAL.NEB NEB SCH ×4 (01:47→19:46)
[2019-01-15] MEDS: JEVITY 1.2 CAL 1,000 ML BOTTLE GT PRN (03:41)
[2019-01-15] MEDS: MYCOPHENOLATE MOFETIL SUSP 500 MG/2.5 ML UDC GT SCH ×2 (05:31→17:50)
[2019-01-15] MEDS: CHLORHEXIDINE GLUCONATE 15 ML UDC MM SCH ×2 (05:32→17:50)
[2019-01-15 07:50] VITALS: BP 127/73
[2019-01-15] MEDS: LEVETIRACETAM SOL (5 ML) 100 MG/ML UDC GT SCH ×2 (09:20→20:32)
[2019-01-15] MEDS: SERTRALINE HCL 25 MG TABLET GT SCH (09:20)
[2019-01-15] MEDS: Z GUARD REMEDY 4 OZ OINT TP SCH ×2 (09:20→21:47)
[2019-01-15] MEDS: HYDROGEN PEROXIDE 480 ML BOTTLE TP SCH ×2 (09:20→21:01)
[2019-01-15] MEDS: BACLOFEN (10 MG) 10 MG TABLET GT SCH ×3 (09:20→17:49)
[2019-01-15] MEDS: FOLIC ACID 1 MG TABLET GT SCH ×2 (09:20→17:49)
[2019-01-15] MEDS: SENNOSIDES 8.6 MG TABLET GT SCH ×2 (09:20→20:32)
[2019-01-15] MEDS: HEPARIN SODIUM, PORCINE 5000 UNITS/1 ML VIAL SQ SCH ×2 (09:20→20:41)
[2019-01-15 20:40] VITALS: BP 128/76
[2019-01-15] MEDS: POLYETHYLENE GLYCOL 3350 17 GM POWD.PACK GT SCH (21:42)
[2019-01-16] MEDS: POLYVINYL ALCOHOL 15 ML BOTTLE EACHEYE SCH ×4 (00:07→17:25)
[2019-01-16] MEDS: JEVITY 1.2 CAL 1,000 ML BOTTLE GT PRN ×2 (00:26→15:13)
[2019-01-16] MEDS: ALBUTEROL FS 2.5 MG/3 ML VIAL.NEB NEB SCH ×4 (01:33→20:26)
[2019-01-16] MEDS: MYCOPHENOLATE MOFETIL SUSP 500 MG/2.5 ML UDC GT SCH ×2 (05:06→17:25)
[2019-01-16] MEDS: CHLORHEXIDINE GLUCONATE 15 ML UDC MM SCH ×2 (05:08→17:25)
[2019-01-16 07:39] VITALS: BP 135/60
[2019-01-16] MEDS: LEVETIRACETAM SOL (5 ML) 100 MG/ML UDC GT SCH ×2 (09:00→20:18)
[2019-01-16] MEDS: SENNOSIDES 8.6 MG TABLET GT SCH ×2 (09:00→20:20)
[2019-01-16] MEDS: FOLIC ACID 1 MG TABLET GT SCH ×2 (09:00→17:25)
[2019-01-16] MEDS: SERTRALINE HCL 25 MG TABLET GT SCH (09:00)
[2019-01-16] MEDS: Z GUARD REMEDY 4 OZ OINT TP SCH ×2 (09:00→20:21)
[2019-01-16] MEDS: HEPARIN SODIUM, PORCINE 5000 UNITS/1 ML VIAL SQ SCH ×2 (09:00→20:20)
[2019-01-16] MEDS: BACLOFEN (10 MG) 10 MG TABLET GT SCH ×3 (09:00→17:25)
--- NOTE | 2019-01-16 14:00 | NUR ---
Seen and examined by Dr. Aguilar, no new order given.
[2019-01-16 20:06] VITALS: BP 116/71
[2019-01-16] MEDS: HYDROGEN PEROXIDE 480 ML BOTTLE TP SCH (20:15)
[2019-01-16] MEDS: POLYETHYLENE GLYCOL 3350 17 GM POWD.PACK GT SCH (20:21)
--- NOTE | 2019-01-16 22:30 | NUR ---
RT NOTES RECEIVED TRACH PT ON COOL AEROSOL 28% 5L. NO SIGNS OF RESP DISTRESS NOTED AT THIS TIME. AIRWAY PATENT AND SECURED. PT SUCTIONED. HHN TX GIVEN WITH NO ADVERSE REACTION NOTED. WILL CONTINUE TO MONITOR.
[2019-01-17] MEDS: POLYVINYL ALCOHOL 15 ML BOTTLE EACHEYE SCH ×5 (00:42→23:02)
[2019-01-17] MEDS: ALBUTEROL FS 2.5 MG/3 ML VIAL.NEB NEB SCH ×4 (01:47→19:31)
[2019-01-17] MEDS: CHLORHEXIDINE GLUCONATE 15 ML UDC MM SCH ×2 (05:00→17:04)
[2019-01-17] MEDS: MYCOPHENOLATE MOFETIL SUSP 500 MG/2.5 ML UDC GT SCH ×2 (05:00→17:04)
[2019-01-17] MEDS: JEVITY 1.2 CAL 1,000 ML BOTTLE GT PRN (05:01)
[2019-01-17 08:00] VITALS: BP 108/68
[2019-01-17] MEDS: Z GUARD REMEDY 4 OZ OINT TP SCH ×2 (09:00→21:05)
[2019-01-17] MEDS: HYDROGEN PEROXIDE 480 ML BOTTLE TP SCH ×2 (09:00→21:05)
[2019-01-17] MEDS: BACLOFEN (10 MG) 10 MG TABLET GT SCH ×3 (09:37→17:04)
[2019-01-17] MEDS: FOLIC ACID 1 MG TABLET GT SCH ×2 (09:37→17:04)
[2019-01-17] MEDS: LEVETIRACETAM SOL (5 ML) 100 MG/ML UDC GT SCH ×2 (09:37→21:04)
[2019-01-17] MEDS: SENNOSIDES 8.6 MG TABLET GT SCH ×2 (09:37→21:04)
[2019-01-17] MEDS: SERTRALINE HCL 25 MG TABLET GT SCH (09:37)
[2019-01-17] MEDS: HEPARIN SODIUM, PORCINE 5000 UNITS/1 ML VIAL SQ SCH ×2 (09:38→21:05)
[2019-01-17 20:02] VITALS: BP 109/63
[2019-01-17] MEDS: POLYETHYLENE GLYCOL 3350 17 GM POWD.PACK GT SCH (21:05)
[2019-01-18] MEDS: ALBUTEROL FS 2.5 MG/3 ML VIAL.NEB NEB SCH ×4 (01:56→20:12)
[2019-01-18] MEDS: POLYVINYL ALCOHOL 15 ML BOTTLE EACHEYE SCH ×3 (06:15→17:44)
[2019-01-18] MEDS: CHLORHEXIDINE GLUCONATE 15 ML UDC MM SCH ×2 (06:15→17:44)
[2019-01-18] MEDS: MYCOPHENOLATE MOFETIL SUSP 500 MG/2.5 ML UDC GT SCH ×2 (06:15→17:44)
[2019-01-18 08:00] VITALS: BP 123/68
[2019-01-18] MEDS: SENNOSIDES 8.6 MG TABLET GT SCH ×2 (08:47→21:04)
[2019-01-18] MEDS: BACLOFEN (10 MG) 10 MG TABLET GT SCH ×3 (08:47→17:44)
[2019-01-18] MEDS: Z GUARD REMEDY 4 OZ OINT TP SCH ×2 (08:47→21:05)
[2019-01-18] MEDS: LEVETIRACETAM SOL (5 ML) 100 MG/ML UDC GT SCH ×2 (08:47→21:04)
[2019-01-18] MEDS: HEPARIN SODIUM, PORCINE 5000 UNITS/1 ML VIAL SQ SCH ×2 (08:47→21:05)
[2019-01-18] MEDS: SERTRALINE HCL 25 MG TABLET GT SCH (08:47)
[2019-01-18] MEDS: FOLIC ACID 1 MG TABLET GT SCH ×2 (08:47→17:44)
[2019-01-18] MEDS: HYDROGEN PEROXIDE 480 ML BOTTLE TP SCH ×2 (09:00→21:05)
--- NOTE | 2019-01-18 14:45 | NUR ---
Seen by Dr Aguilar. Asked him if Sertraline HCl should be reduced. He said pt is already on a low dose and it is working for her. He ordered to continue Sertaline Hcl 12.5 mg GT daily.
[2019-01-18 20:25] VITALS: BP 129/70
[2019-01-18] MEDS: POLYETHYLENE GLYCOL 3350 17 GM POWD.PACK GT SCH (21:05)
[2019-01-19] MEDS: POLYVINYL ALCOHOL 15 ML BOTTLE EACHEYE SCH ×4 (00:11→17:52)
[2019-01-19] MEDS: ALBUTEROL FS 2.5 MG/3 ML VIAL.NEB NEB SCH ×4 (01:28→20:10)
[2019-01-19] MEDS: CHLORHEXIDINE GLUCONATE 15 ML UDC MM SCH ×2 (05:54→17:52)
[2019-01-19] MEDS: MYCOPHENOLATE MOFETIL SUSP 500 MG/2.5 ML UDC GT SCH ×2 (05:54→17:52)
[2019-01-19 07:56] VITALS: BP 108/56
[2019-01-19] MEDS: HYDROGEN PEROXIDE 480 ML BOTTLE TP SCH ×2 (09:24→20:48)
[2019-01-19] MEDS: SENNOSIDES 8.6 MG TABLET GT SCH ×2 (09:52→20:47)
[2019-01-19] MEDS: BACLOFEN (10 MG) 10 MG TABLET GT SCH ×3 (09:52→17:52)
[2019-01-19] MEDS: FOLIC ACID 1 MG TABLET GT SCH ×2 (09:52→17:52)
[2019-01-19] MEDS: SERTRALINE HCL 25 MG TABLET GT SCH (09:52)
[2019-01-19] MEDS: LEVETIRACETAM SOL (5 ML) 100 MG/ML UDC GT SCH ×2 (09:52→20:47)
[2019-01-19] MEDS: HEPARIN SODIUM, PORCINE 5000 UNITS/1 ML VIAL SQ SCH ×2 (09:53→20:47)
[2019-01-19] MEDS: Z GUARD REMEDY 4 OZ OINT TP SCH ×2 (09:53→20:48)
[2019-01-19] MEDS: JEVITY 1.2 CAL 1,000 ML BOTTLE GT PRN (12:34)
[2019-01-19 19:54] VITALS: BP 114/68
[2019-01-19] MEDS: POLYETHYLENE GLYCOL 3350 17 GM POWD.PACK GT SCH (21:05)
[2019-01-20] MEDS: POLYVINYL ALCOHOL 15 ML BOTTLE EACHEYE SCH ×5 (00:04→23:14)
[2019-01-20] MEDS: ALBUTEROL FS 2.5 MG/3 ML VIAL.NEB NEB SCH ×4 (01:09→20:13)
[2019-01-20] MEDS: MYCOPHENOLATE MOFETIL SUSP 500 MG/2.5 ML UDC GT SCH ×2 (05:16→17:17)
[2019-01-20] MEDS: CHLORHEXIDINE GLUCONATE 15 ML UDC MM SCH ×2 (05:16→17:17)
[2019-01-20] MEDS: JEVITY 1.2 CAL 1,000 ML BOTTLE GT PRN (05:17)
[2019-01-20 08:03] VITALS: BP 108/57
[2019-01-20] MEDS: SERTRALINE HCL 25 MG TABLET GT SCH (08:34)
[2019-01-20] MEDS: BACLOFEN (10 MG) 10 MG TABLET GT SCH ×3 (08:34→17:17)
[2019-01-20] MEDS: LEVETIRACETAM SOL (5 ML) 100 MG/ML UDC GT SCH ×2 (08:34→21:03)
[2019-01-20] MEDS: SENNOSIDES 8.6 MG TABLET GT SCH ×2 (08:34→21:03)
[2019-01-20] MEDS: FOLIC ACID 1 MG TABLET GT SCH ×2 (08:34→17:17)
[2019-01-20] MEDS: Z GUARD REMEDY 4 OZ OINT TP SCH ×2 (08:35→21:03)
[2019-01-20] MEDS: HEPARIN SODIUM, PORCINE 5000 UNITS/1 ML VIAL SQ SCH ×2 (08:35→21:03)
[2019-01-20] MEDS: HYDROGEN PEROXIDE 480 ML BOTTLE TP SCH ×2 (09:41→21:03)
[2019-01-20 20:41] VITALS: BP 129/85
[2019-01-20] MEDS: POLYETHYLENE GLYCOL 3350 17 GM POWD.PACK GT SCH (21:03)
[2019-01-21] MEDS: JEVITY 1.2 CAL 1,000 ML BOTTLE GT PRN ×2 (00:03→13:30)
[2019-01-21] MEDS: ALBUTEROL FS 2.5 MG/3 ML VIAL.NEB NEB SCH ×4 (02:31→19:40)
[2019-01-21] MEDS: MYCOPHENOLATE MOFETIL SUSP 500 MG/2.5 ML UDC GT SCH ×2 (05:29→17:05)
[2019-01-21] MEDS: POLYVINYL ALCOHOL 15 ML BOTTLE EACHEYE SCH ×4 (05:29→23:10)
[2019-01-21] MEDS: CHLORHEXIDINE GLUCONATE 15 ML UDC MM SCH ×2 (05:29→17:05)
[2019-01-21] MEDS: HYDROGEN PEROXIDE 480 ML BOTTLE TP SCH ×2 (07:11→21:42)
[2019-01-21 07:47] VITALS: BP 121/71
[2019-01-21] MEDS: BACLOFEN (10 MG) 10 MG TABLET GT SCH ×3 (08:53→17:00)
[2019-01-21] MEDS: SERTRALINE HCL 25 MG TABLET GT SCH (08:53)
[2019-01-21] MEDS: SENNOSIDES 8.6 MG TABLET GT SCH ×2 (08:53→21:42)
[2019-01-21] MEDS: LEVETIRACETAM SOL (5 ML) 100 MG/ML UDC GT SCH ×2 (08:53→21:42)
[2019-01-21] MEDS: HEPARIN SODIUM, PORCINE 5000 UNITS/1 ML VIAL SQ SCH ×2 (08:53→21:43)
[2019-01-21] MEDS: FOLIC ACID 1 MG TABLET GT SCH ×2 (08:53→17:00)
[2019-01-21] MEDS: Z GUARD REMEDY 4 OZ OINT TP SCH ×2 (09:00→21:43)
--- NOTE | 2019-01-21 09:34 | NUR ---
RT PATIENT REC'D TRACHED ON ORDERED MODALITY TOLERATED WELL. ALL SAFETY MEASURES CHECKED. TRACH PATENT AND SECURE IN PROPER POSITION. TRACH CARE DONE. TRACH TIES, GAUZE AND INNER CANNULA CHANGED. NO SOB OR DISTRESS NOTED. WILL CONTINUE CURRENT PLAN OF CARE. Addendum: 01/21/19 at 0934 by TAMIKA APPIAH RT Amended: Links added.
[2019-01-21 19:56] VITALS: BP 136/72
[2019-01-21] MEDS: POLYETHYLENE GLYCOL 3350 17 GM POWD.PACK GT SCH (21:43)
[2019-01-22] MEDS: ALBUTEROL FS 2.5 MG/3 ML VIAL.NEB NEB SCH ×4 (01:50→20:01)
[2019-01-22] MEDS: POLYVINYL ALCOHOL 15 ML BOTTLE EACHEYE SCH ×3 (05:23→17:35)
[2019-01-22] MEDS: MYCOPHENOLATE MOFETIL SUSP 500 MG/2.5 ML UDC GT SCH ×2 (05:23→17:35)
[2019-01-22] MEDS: CHLORHEXIDINE GLUCONATE 15 ML UDC MM SCH ×2 (05:23→17:36)
[2019-01-22] MEDS: JEVITY 1.2 CAL 1,000 ML BOTTLE GT PRN ×2 (05:24→18:45)
[2019-01-22 07:59] VITALS: BP 128/69
[2019-01-22] MEDS: FOLIC ACID 1 MG TABLET GT SCH ×2 (08:52→17:35)
[2019-01-22] MEDS: SENNOSIDES 8.6 MG TABLET GT SCH ×2 (08:52→21:57)
[2019-01-22] MEDS: LEVETIRACETAM SOL (5 ML) 100 MG/ML UDC GT SCH ×2 (08:52→21:57)
[2019-01-22] MEDS: SERTRALINE HCL 25 MG TABLET GT SCH (08:52)
[2019-01-22] MEDS: BACLOFEN (10 MG) 10 MG TABLET GT SCH ×3 (08:52→17:35)
[2019-01-22] MEDS: HEPARIN SODIUM, PORCINE 5000 UNITS/1 ML VIAL SQ SCH ×2 (08:56→21:58)
[2019-01-22] MEDS: Z GUARD REMEDY 4 OZ OINT TP SCH ×2 (09:00→21:58)
[2019-01-22] MEDS: HYDROGEN PEROXIDE 480 ML BOTTLE TP SCH ×2 (09:54→20:01)
[2019-01-22 19:48] VITALS: BP 124/70
[2019-01-22] MEDS: POLYETHYLENE GLYCOL 3350 17 GM POWD.PACK GT SCH (21:58)
--- NOTE | 2019-01-22 23:40 | NUR ---
PATIENT RECEIVED ON 28% AEROSOL T-COLLAR, TOLERATING WITH NO DISTRESS NOTED. SUCTIONED FOR MINIMAL, THIN, YELLOW SECRETIONS. GIVEN IN-LINE TREATMENTS WITH NO ADVERSE REACTIONS. AMBU BAG AT BEDSIDE. Addendum: 01/22/19 at 2341 by JANAY CANCINO RT Amended: Links added.
[2019-01-23] MEDS: ALBUTEROL FS 2.5 MG/3 ML VIAL.NEB NEB SCH ×4 (01:02→19:01)
[2019-01-23] MEDS: MYCOPHENOLATE MOFETIL SUSP 500 MG/2.5 ML UDC GT SCH ×2 (06:01→18:03)
[2019-01-23] MEDS: POLYVINYL ALCOHOL 15 ML BOTTLE EACHEYE SCH ×4 (06:01→18:03)
[2019-01-23] MEDS: CHLORHEXIDINE GLUCONATE 15 ML UDC MM SCH ×2 (06:01→18:03)
[2019-01-23 07:38] VITALS: BP 121/52
[2019-01-23] MEDS: BACLOFEN (10 MG) 10 MG TABLET GT SCH ×3 (08:35→16:51)
[2019-01-23] MEDS: SERTRALINE HCL 25 MG TABLET GT SCH (08:35)
[2019-01-23] MEDS: FOLIC ACID 1 MG TABLET GT SCH ×2 (08:35→16:51)
[2019-01-23] MEDS: SENNOSIDES 8.6 MG TABLET GT SCH ×2 (08:36→21:34)
[2019-01-23] MEDS: LEVETIRACETAM SOL (5 ML) 100 MG/ML UDC GT SCH ×2 (08:36→21:34)
[2019-01-23] MEDS: HEPARIN SODIUM, PORCINE 5000 UNITS/1 ML VIAL SQ SCH ×2 (08:39→21:34)
[2019-01-23] MEDS: HYDROGEN PEROXIDE 480 ML BOTTLE TP SCH ×2 (09:00→21:00)
[2019-01-23] MEDS: Z GUARD REMEDY 4 OZ OINT TP SCH ×2 (09:00→21:34)
[2019-01-23] MEDS: JEVITY 1.2 CAL 1,000 ML BOTTLE GT PRN (15:22)
[2019-01-23 21:20] VITALS: BP 108/63
[2019-01-23] MEDS: POLYETHYLENE GLYCOL 3350 17 GM POWD.PACK GT SCH (22:00)
[2019-01-24] MEDS: POLYVINYL ALCOHOL 15 ML BOTTLE EACHEYE SCH ×4 (00:16→18:47)
[2019-01-24] MEDS: ALBUTEROL FS 2.5 MG/3 ML VIAL.NEB NEB SCH ×4 (00:55→19:20)
[2019-01-24] MEDS: MYCOPHENOLATE MOFETIL SUSP 500 MG/2.5 ML UDC GT SCH ×2 (05:38→18:47)
[2019-01-24] MEDS: CHLORHEXIDINE GLUCONATE 15 ML UDC MM SCH ×2 (05:38→18:48)
[2019-01-24] MEDS: JEVITY 1.2 CAL 1,000 ML BOTTLE GT PRN (05:38)
[2019-01-24 07:46] VITALS: BP 110/68
[2019-01-24] MEDS: FOLIC ACID 1 MG TABLET GT SCH ×2 (08:28→16:52)
[2019-01-24] MEDS: LEVETIRACETAM SOL (5 ML) 100 MG/ML UDC GT SCH ×2 (08:28→20:18)
[2019-01-24] MEDS: SENNOSIDES 8.6 MG TABLET GT SCH ×2 (08:28→20:18)
[2019-01-24] MEDS: SERTRALINE HCL 25 MG TABLET GT SCH (08:28)
[2019-01-24] MEDS: BACLOFEN (10 MG) 10 MG TABLET GT SCH ×3 (08:28→16:52)
[2019-01-24] MEDS: HEPARIN SODIUM, PORCINE 5000 UNITS/1 ML VIAL SQ SCH ×2 (08:29→20:19)
[2019-01-24] MEDS: Z GUARD REMEDY 4 OZ OINT TP SCH ×2 (09:00→20:20)
[2019-01-24] MEDS: HYDROGEN PEROXIDE 480 ML BOTTLE TP SCH ×2 (09:00→21:29)
--- NOTE | 2019-01-24 20:00 | NUR ---
RN NOTES Seen by Sugar Spangler NP, with no new orders.
[2019-01-24 20:34] VITALS: BP 124/63
[2019-01-24] MEDS: POLYETHYLENE GLYCOL 3350 17 GM POWD.PACK GT SCH (22:29)
[2019-01-25] MEDS: POLYVINYL ALCOHOL 15 ML BOTTLE EACHEYE SCH ×5 (00:17→23:34)
[2019-01-25] MEDS: ALBUTEROL FS 2.5 MG/3 ML VIAL.NEB NEB SCH ×4 (00:33→19:49)
[2019-01-25] MEDS: MYCOPHENOLATE MOFETIL SUSP 500 MG/2.5 ML UDC GT SCH ×2 (05:25→17:09)
[2019-01-25] MEDS: CHLORHEXIDINE GLUCONATE 15 ML UDC MM SCH ×2 (05:25→17:09)
[2019-01-25 07:36] VITALS: BP 128/71
[2019-01-25] MEDS: Z GUARD REMEDY 4 OZ OINT TP SCH ×2 (09:00→20:51)
[2019-01-25] MEDS: HYDROGEN PEROXIDE 480 ML BOTTLE TP SCH ×2 (09:00→20:50)
[2019-01-25] MEDS: BACLOFEN (10 MG) 10 MG TABLET GT SCH ×3 (09:01→17:08)
[2019-01-25] MEDS: SERTRALINE HCL 25 MG TABLET GT SCH (09:01)
[2019-01-25] MEDS: SENNOSIDES 8.6 MG TABLET GT SCH ×2 (09:01→20:50)
[2019-01-25] MEDS: LEVETIRACETAM SOL (5 ML) 100 MG/ML UDC GT SCH ×2 (09:01→20:50)
[2019-01-25] MEDS: FOLIC ACID 1 MG TABLET GT SCH ×2 (09:01→17:08)
[2019-01-25] MEDS: HEPARIN SODIUM, PORCINE 5000 UNITS/1 ML VIAL SQ SCH ×2 (09:23→21:00)
[2019-01-25 20:44] VITALS: BP 121/55
[2019-01-25] MEDS: POLYETHYLENE GLYCOL 3350 17 GM POWD.PACK GT SCH (22:03)
[2019-01-25] MEDS: JEVITY 1.2 CAL 1,000 ML BOTTLE GT PRN (22:16)
[2019-01-26] MEDS: ALBUTEROL FS 2.5 MG/3 ML VIAL.NEB NEB SCH ×4 (01:34→20:27)
[2019-01-26] MEDS: MYCOPHENOLATE MOFETIL SUSP 500 MG/2.5 ML UDC GT SCH ×2 (05:51→18:36)
[2019-01-26] MEDS: POLYVINYL ALCOHOL 15 ML BOTTLE EACHEYE SCH ×3 (05:51→18:36)
[2019-01-26] MEDS: CHLORHEXIDINE GLUCONATE 15 ML UDC MM SCH ×2 (05:51→18:36)
[2019-01-26 07:52] VITALS: BP 132/67
[2019-01-26] MEDS: SERTRALINE HCL 25 MG TABLET GT SCH (09:00)
[2019-01-26] MEDS: HEPARIN SODIUM, PORCINE 5000 UNITS/1 ML VIAL SQ SCH ×2 (09:00→20:34)
[2019-01-26] MEDS: Z GUARD REMEDY 4 OZ OINT TP SCH ×2 (09:00→20:35)
[2019-01-26] MEDS: LEVETIRACETAM SOL (5 ML) 100 MG/ML UDC GT SCH ×2 (09:00→20:34)
[2019-01-26] MEDS: HYDROGEN PEROXIDE 480 ML BOTTLE TP SCH ×2 (09:00→20:44)
[2019-01-26] MEDS: SENNOSIDES 8.6 MG TABLET GT SCH ×2 (09:00→20:34)
[2019-01-26] MEDS: FOLIC ACID 1 MG TABLET GT SCH ×2 (09:00→16:36)
[2019-01-26] MEDS: BACLOFEN (10 MG) 10 MG TABLET GT SCH ×3 (09:00→16:36)
--- NOTE | 2019-01-26 16:23 | NUR ---
SW called and spoke with pt.'s , Zeb Tellez to introduce herself as the new Subacute SW. Zeb was receptive to speaking with SW and expressed contentment. SW invited Zeb to attend the IDT meeting this Thursday, January 28, 2019 from 12:30pm-1:30pm. Zeb stated that he would like his daughter, Lisa Tellez ([phone]) to attend the IDT as he is out of town and Lisa normally handles the patient's care. Zeb also asked that the SW be in contact with the patient's father, Dr. Darrel Swift as he is a doctor and likes to stay informed. SW will contact Lisa to invite her to the IDT meeting and keep Darrel Wilhelm updated with patient care of plan.
[2019-01-26] MEDS: JEVITY 1.2 CAL 1,000 ML BOTTLE GT PRN (16:37)
[2019-01-26 20:04] VITALS: BP 92/50
[2019-01-26] MEDS: POLYETHYLENE GLYCOL 3350 17 GM POWD.PACK GT SCH (22:03)
[2019-01-27] MEDS: POLYVINYL ALCOHOL 15 ML BOTTLE EACHEYE SCH ×4 (00:17→18:25)
[2019-01-27] MEDS: ALBUTEROL FS 2.5 MG/3 ML VIAL.NEB NEB SCH ×4 (01:45→20:13)
[2019-01-27] MEDS: MYCOPHENOLATE MOFETIL SUSP 500 MG/2.5 ML UDC GT SCH ×2 (05:08→18:25)
[2019-01-27] MEDS: CHLORHEXIDINE GLUCONATE 15 ML UDC MM SCH ×2 (05:08→18:25)
[2019-01-27 07:34] VITALS: BP 120/62
[2019-01-27] MEDS: HYDROGEN PEROXIDE 480 ML BOTTLE TP SCH ×2 (09:00→21:00)
[2019-01-27] MEDS: SENNOSIDES 8.6 MG TABLET GT SCH ×2 (09:05→21:32)
[2019-01-27] MEDS: BACLOFEN (10 MG) 10 MG TABLET GT SCH ×3 (09:05→17:00)
[2019-01-27] MEDS: FOLIC ACID 1 MG TABLET GT SCH ×2 (09:05→17:00)
[2019-01-27] MEDS: LEVETIRACETAM SOL (5 ML) 100 MG/ML UDC GT SCH ×2 (09:05→21:32)
[2019-01-27] MEDS: SERTRALINE HCL 25 MG TABLET GT SCH (09:06)
[2019-01-27] MEDS: Z GUARD REMEDY 4 OZ OINT TP SCH ×2 (09:06→21:33)
[2019-01-27] MEDS: HEPARIN SODIUM, PORCINE 5000 UNITS/1 ML VIAL SQ SCH ×2 (09:06→21:33)
--- NOTE | 2019-01-27 11:55 | NUR ---
HILTON contacted and spoke with pt,'s daughter, Lisa Tellez to invite her to attend the IDT being held Monday, January 28, 2019 from 12:30pm-1:30pm. Per Lisa, she will be able to attend the IDT tomorrow. HILTON attempted to reach the pt.'s father, Dr. Darrel Swift per the pt.'s 's request. HILTON was unable to reach Dr. Darrel Swift. However, HILTON left a voicemail. HILTON will continue attempts to reach Dr. Darrel Swift. Addendum: 01/27/19 at 1322 by YUN CANELA 1:20 pm. ---Dr. Darrel Swift contacted HILTON in response to IDT meeting invite stating that he will not be able to make it interferes with his work schedule. HILTON will be available to support the pt.'s family as needed.
--- NOTE | 2019-01-27 13:42 | NUR ---
Seen and examined by Dr. Jeff dsouza.
[2019-01-27 20:29] VITALS: BP 115/57
[2019-01-27] MEDS: POLYETHYLENE GLYCOL 3350 17 GM POWD.PACK GT SCH (21:33)
[2019-01-28] MEDS: POLYVINYL ALCOHOL 15 ML BOTTLE EACHEYE SCH ×5 (00:38→23:34)
[2019-01-28] MEDS: ALBUTEROL FS 2.5 MG/3 ML VIAL.NEB NEB SCH ×4 (02:08→19:25)
[2019-01-28] MEDS: JEVITY 1.2 CAL 1,000 ML BOTTLE GT PRN ×2 (04:53→19:16)
[2019-01-28] MEDS: CHLORHEXIDINE GLUCONATE 15 ML UDC MM SCH ×2 (05:37→18:39)
[2019-01-28] MEDS: MYCOPHENOLATE MOFETIL SUSP 500 MG/2.5 ML UDC GT SCH ×2 (05:37→18:39)
[2019-01-28 07:40] VITALS: BP 119/74
[2019-01-28] MEDS: HEPARIN SODIUM, PORCINE 5000 UNITS/1 ML VIAL SQ SCH ×2 (08:56→20:04)
[2019-01-28] MEDS: BACLOFEN (10 MG) 10 MG TABLET GT SCH ×3 (08:56→16:52)
[2019-01-28] MEDS: FOLIC ACID 1 MG TABLET GT SCH ×2 (08:56→16:52)
[2019-01-28] MEDS: SERTRALINE HCL 25 MG TABLET GT SCH (08:56)
[2019-01-28] MEDS: SENNOSIDES 8.6 MG TABLET GT SCH ×2 (08:56→20:06)
[2019-01-28] MEDS: LEVETIRACETAM SOL (5 ML) 100 MG/ML UDC GT SCH ×2 (08:56→20:06)
[2019-01-28] MEDS: Z GUARD REMEDY 4 OZ OINT TP SCH ×2 (08:57→20:06)
[2019-01-28] MEDS: HYDROGEN PEROXIDE 480 ML BOTTLE TP SCH ×2 (09:00→20:06)
--- NOTE | 2019-01-28 14:37 | NUR ---
INTERDISCIPLINARY TEAM CONFERENCE (IDT) was held today. Resident's father Dr. Swift was not able to attend today's IDT meeting. However, the pt's daughter, Lisa Tellez [phone] attended the meeting in person and participated in IDT. Per Lisa, she would also like her brother to be kept updated with patient's condition. SW will gather Lisa's brother's information so that he may be updated by IDT with patient's status. Charge nurse Radha noted that there have been no skin flare ups and that pt overall is stable. Dr. Lubin and the interdisciplinary team reviewed the current plan of care in detail. Orders as well as treatment and medications were reviewed. No new orders were given.
[2019-01-28 19:56] VITALS: BP 115/62
[2019-01-28] MEDS: POLYETHYLENE GLYCOL 3350 17 GM POWD.PACK GT SCH (21:30)
[2019-01-29] MEDS: ALBUTEROL FS 2.5 MG/3 ML VIAL.NEB NEB SCH ×4 (01:05→19:54)
[2019-01-29] MEDS: MYCOPHENOLATE MOFETIL SUSP 500 MG/2.5 ML UDC GT SCH ×2 (05:30→17:30)
[2019-01-29] MEDS: CHLORHEXIDINE GLUCONATE 15 ML UDC MM SCH ×2 (05:30→17:30)
[2019-01-29] MEDS: POLYVINYL ALCOHOL 15 ML BOTTLE EACHEYE SCH ×3 (05:30→17:30)
[2019-01-29 07:58] VITALS: BP 117/61
[2019-01-29] MEDS: HEPARIN SODIUM, PORCINE 5000 UNITS/1 ML VIAL SQ SCH ×2 (09:00→20:16)
[2019-01-29] MEDS: Z GUARD REMEDY 4 OZ OINT TP SCH ×2 (09:00→20:16)
[2019-01-29] MEDS: HYDROGEN PEROXIDE 480 ML BOTTLE TP SCH ×2 (09:00→21:00)
[2019-01-29] MEDS: SENNOSIDES 8.6 MG TABLET GT SCH ×2 (09:42→20:15)
[2019-01-29] MEDS: BACLOFEN (10 MG) 10 MG TABLET GT SCH ×3 (09:42→17:30)
[2019-01-29] MEDS: LEVETIRACETAM SOL (5 ML) 100 MG/ML UDC GT SCH ×2 (09:42→20:15)
[2019-01-29] MEDS: FOLIC ACID 1 MG TABLET GT SCH ×2 (09:42→17:30)
[2019-01-29] MEDS: SERTRALINE HCL 25 MG TABLET GT SCH (09:42)
[2019-01-29] MEDS: JEVITY 1.2 CAL 1,000 ML BOTTLE GT PRN (13:13)
[2019-01-29 19:43] VITALS: BP 114/70
[2019-01-29] MEDS: POLYETHYLENE GLYCOL 3350 17 GM POWD.PACK GT SCH (21:09)
[2019-01-30] MEDS: POLYVINYL ALCOHOL 15 ML BOTTLE EACHEYE SCH ×4 (00:42→17:52)
[2019-01-30] MEDS: ALBUTEROL FS 2.5 MG/3 ML VIAL.NEB NEB SCH ×4 (01:30→20:23)
[2019-01-30] MEDS: MYCOPHENOLATE MOFETIL SUSP 500 MG/2.5 ML UDC GT SCH ×2 (05:09→17:52)
[2019-01-30] MEDS: CHLORHEXIDINE GLUCONATE 15 ML UDC MM SCH ×2 (05:10→17:52)
[2019-01-30 07:41] VITALS: BP 122/70
[2019-01-30] MEDS: LEVETIRACETAM SOL (5 ML) 100 MG/ML UDC GT SCH ×2 (09:00→20:17)
[2019-01-30] MEDS: BACLOFEN (10 MG) 10 MG TABLET GT SCH ×3 (09:00→16:51)
[2019-01-30] MEDS: SENNOSIDES 8.6 MG TABLET GT SCH ×2 (09:00→20:17)
[2019-01-30] MEDS: SERTRALINE HCL 25 MG TABLET GT SCH (09:00)
[2019-01-30] MEDS: FOLIC ACID 1 MG TABLET GT SCH ×2 (09:00→16:51)
[2019-01-30] MEDS: HYDROGEN PEROXIDE 480 ML BOTTLE TP SCH ×2 (09:00→21:00)
[2019-01-30] MEDS: Z GUARD REMEDY 4 OZ OINT TP SCH ×2 (09:00→20:19)
[2019-01-30] MEDS: HEPARIN SODIUM, PORCINE 5000 UNITS/1 ML VIAL SQ SCH ×2 (09:00→20:19)
[2019-01-30 19:48] VITALS: BP 106/65
[2019-01-30] MEDS: POLYETHYLENE GLYCOL 3350 17 GM POWD.PACK GT SCH (21:22)
[2019-01-31] MEDS: ALBUTEROL FS 2.5 MG/3 ML VIAL.NEB NEB SCH ×4 (01:13→19:15)
[2019-01-31] MEDS: JEVITY 1.2 CAL 1,000 ML BOTTLE GT PRN ×2 (03:41→16:46)
[2019-01-31] MEDS: CHLORHEXIDINE GLUCONATE 15 ML UDC MM SCH ×2 (05:08→17:18)
[2019-01-31] MEDS: MYCOPHENOLATE MOFETIL SUSP 500 MG/2.5 ML UDC GT SCH ×2 (05:08→17:18)
[2019-01-31] MEDS: POLYVINYL ALCOHOL 15 ML BOTTLE EACHEYE SCH ×5 (05:08→23:46)
[2019-01-31] MEDS: SERTRALINE HCL 25 MG TABLET GT SCH (08:31)
[2019-01-31] MEDS: BACLOFEN (10 MG) 10 MG TABLET GT SCH ×3 (08:31→16:47)
[2019-01-31] MEDS: LEVETIRACETAM SOL (5 ML) 100 MG/ML UDC GT SCH ×2 (08:31→20:18)
[2019-01-31] MEDS: SENNOSIDES 8.6 MG TABLET GT SCH ×2 (08:31→20:19)
[2019-01-31] MEDS: FOLIC ACID 1 MG TABLET GT SCH ×2 (08:31→16:47)
[2019-01-31] MEDS: HEPARIN SODIUM, PORCINE 5000 UNITS/1 ML VIAL SQ SCH ×2 (08:34→20:19)
[2019-01-31] MEDS: Z GUARD REMEDY 4 OZ OINT TP SCH ×2 (09:00→20:19)
[2019-01-31] MEDS: HYDROGEN PEROXIDE 480 ML BOTTLE TP SCH ×2 (09:17→19:15)
[2019-01-31 09:46] VITALS: BP 104/71
--- NOTE | 2019-01-31 13:55 | NUR ---
Per patient's daughter, Lisa Tellez's [phone] request in last IDT meeting, 01/28/19, SW called Lisa to inform her of SW contact information and gather Lisa's brothers contact info. as Lisa mentioned wanting her brother to updated regarding pt.'s health status. Lisa stated, "I'm glad to hear back from you" and expressed contentment about having SW contact information. Per Lisa, she no longer wants her brother to be updated. Per Lisa, it is sufficient for [facility] to keep her and the pt.'s father Dr.George Swift [phone] updated. SW will be available to support resident and family as needed.
[2019-01-31] MEDS: POLYETHYLENE GLYCOL 3350 17 GM POWD.PACK GT SCH (21:13)
[2019-01-31 21:55] VITALS: BP 123/70
[2019-01-31 21:56] VITALS: BP 104/66
[2019-02-01] MEDS: ALBUTEROL FS 2.5 MG/3 ML VIAL.NEB NEB SCH ×4 (00:48→20:12)
--- NOTE | 2019-02-01 05:00 | NUR ---
PATIENT RECEIVED ON 28% AEROSOL T-COLLAR, TOLERATING WITH NO DISTRESS NOTED. GIVEN IN-LINE TREATMENTS WITH NO ADVERSE REACTIONS. AMBU BAG AT BEDSIDE. Addendum: 02/01/19 at 0502 by JANAY CANCINO RT Amended: Links added.
[2019-02-01] MEDS: POLYVINYL ALCOHOL 15 ML BOTTLE EACHEYE SCH ×3 (05:11→17:12)
[2019-02-01] MEDS: MYCOPHENOLATE MOFETIL SUSP 500 MG/2.5 ML UDC GT SCH ×2 (05:11→19:27)
[2019-02-01] MEDS: CHLORHEXIDINE GLUCONATE 15 ML UDC MM SCH ×2 (05:11→17:13)
[2019-02-01] MEDS: HYDROGEN PEROXIDE 480 ML BOTTLE TP SCH ×2 (06:59→20:12)
[2019-02-01] MEDS: LEVETIRACETAM SOL (5 ML) 100 MG/ML UDC GT SCH ×2 (08:35→21:31)
[2019-02-01] MEDS: FOLIC ACID 1 MG TABLET GT SCH ×2 (08:35→17:12)
[2019-02-01] MEDS: BACLOFEN (10 MG) 10 MG TABLET GT SCH ×3 (08:36→17:12)
[2019-02-01] MEDS: SENNOSIDES 8.6 MG TABLET GT SCH ×2 (08:36→21:31)
[2019-02-01] MEDS: SERTRALINE HCL 25 MG TABLET GT SCH (08:37)
[2019-02-01] MEDS: Z GUARD REMEDY 4 OZ OINT TP SCH ×2 (08:45→21:32)
[2019-02-01] MEDS: HEPARIN SODIUM, PORCINE 5000 UNITS/1 ML VIAL SQ SCH ×2 (08:45→21:32)
--- NOTE | 2019-02-01 09:00 | NUR ---
Seen and examined by Dr. Lubin, no new order given.
[2019-02-01] MEDS: JEVITY 1.2 CAL 1,000 ML BOTTLE GT PRN (13:00)
[2019-02-01 19:49] VITALS: BP 111/71
[2019-02-01 20:30] VITALS: BP 111/71
[2019-02-01] MEDS: POLYETHYLENE GLYCOL 3350 17 GM POWD.PACK GT SCH (21:33)
[2019-02-02] MEDS: POLYVINYL ALCOHOL 15 ML BOTTLE EACHEYE SCH ×4 (00:02→17:06)
[2019-02-02] MEDS: ALBUTEROL FS 2.5 MG/3 ML VIAL.NEB NEB SCH ×4 (01:52→20:04)
[2019-02-02] MEDS: MYCOPHENOLATE MOFETIL SUSP 500 MG/2.5 ML UDC GT SCH ×2 (06:14→17:06)
[2019-02-02] MEDS: CHLORHEXIDINE GLUCONATE 15 ML UDC MM SCH ×2 (06:15→17:06)
[2019-02-02 07:48] VITALS: BP 118/62
[2019-02-02] MEDS: SERTRALINE HCL 25 MG TABLET GT SCH (08:03)
[2019-02-02] MEDS: FOLIC ACID 1 MG TABLET GT SCH ×2 (08:03→17:06)
[2019-02-02] MEDS: BACLOFEN (10 MG) 10 MG TABLET GT SCH ×3 (08:03→17:06)
[2019-02-02] MEDS: SENNOSIDES 8.6 MG TABLET GT SCH ×2 (08:03→20:45)
[2019-02-02] MEDS: LEVETIRACETAM SOL (5 ML) 100 MG/ML UDC GT SCH ×2 (08:03→20:45)
[2019-02-02] MEDS: Z GUARD REMEDY 4 OZ OINT TP SCH ×2 (08:04→20:46)
[2019-02-02] MEDS: HEPARIN SODIUM, PORCINE 5000 UNITS/1 ML VIAL SQ SCH ×2 (08:04→20:46)
[2019-02-02] MEDS: HYDROGEN PEROXIDE 480 ML BOTTLE TP SCH ×2 (08:53→21:00)
[2019-02-02] MEDS: JEVITY 1.2 CAL 1,000 ML BOTTLE GT PRN (15:25)
[2019-02-02 20:18] VITALS: BP 110/74
[2019-02-02] MEDS: POLYETHYLENE GLYCOL 3350 17 GM POWD.PACK GT SCH (22:15)
[2019-02-03] MEDS: POLYVINYL ALCOHOL 15 ML BOTTLE EACHEYE SCH ×4 (00:41→18:24)
[2019-02-03] MEDS: ALBUTEROL FS 2.5 MG/3 ML VIAL.NEB NEB SCH ×4 (01:38→20:13)
[2019-02-03] MEDS: CHLORHEXIDINE GLUCONATE 15 ML UDC MM SCH ×2 (05:37→18:24)
[2019-02-03] MEDS: MYCOPHENOLATE MOFETIL SUSP 500 MG/2.5 ML UDC GT SCH ×2 (05:37→18:24)
[2019-02-03 07:46] VITALS: BP 120/73
[2019-02-03] MEDS: BACLOFEN (10 MG) 10 MG TABLET GT SCH ×3 (08:18→16:17)
[2019-02-03] MEDS: FOLIC ACID 1 MG TABLET GT SCH ×2 (08:18→16:17)
[2019-02-03] MEDS: SERTRALINE HCL 25 MG TABLET GT SCH (08:18)
[2019-02-03] MEDS: LEVETIRACETAM SOL (5 ML) 100 MG/ML UDC GT SCH ×2 (08:18→21:37)
[2019-02-03] MEDS: SENNOSIDES 8.6 MG TABLET GT SCH ×2 (08:18→21:00)
[2019-02-03] MEDS: HEPARIN SODIUM, PORCINE 5000 UNITS/1 ML VIAL SQ SCH ×2 (08:19→21:38)
[2019-02-03] MEDS: Z GUARD REMEDY 4 OZ OINT TP SCH ×2 (08:19→21:38)
[2019-02-03] MEDS: HYDROGEN PEROXIDE 480 ML BOTTLE TP SCH ×2 (09:00→21:59)
[2019-02-03] MEDS: JEVITY 1.2 CAL 1,000 ML BOTTLE GT PRN (13:08)
--- NOTE | 2019-02-03 13:30 | NUR ---
Seen by Dr Aguilar. Asked him if pt still needs Botox treatment for contractures. Dr Aguilar said there has been no significant improvement so there is no need to resume it.
[2019-02-03 20:12] VITALS: BP 116/58
[2019-02-03] MEDS: POLYETHYLENE GLYCOL 3350 17 GM POWD.PACK GT SCH (21:38)
[2019-02-04] MEDS: POLYVINYL ALCOHOL 15 ML BOTTLE EACHEYE SCH ×5 (00:06→23:31)
[2019-02-04] MEDS: ALBUTEROL FS 2.5 MG/3 ML VIAL.NEB NEB SCH ×4 (01:36→19:12)
[2019-02-04] MEDS: CHLORHEXIDINE GLUCONATE 15 ML UDC MM SCH ×2 (05:43→17:16)
[2019-02-04] MEDS: MYCOPHENOLATE MOFETIL SUSP 500 MG/2.5 ML UDC GT SCH ×2 (05:43→17:16)
[2019-02-04] MEDS: JEVITY 1.2 CAL 1,000 ML BOTTLE GT PRN ×2 (05:43→20:23)
[2019-02-04 07:43] VITALS: BP 104/60
[2019-02-04] MEDS: LEVETIRACETAM SOL (5 ML) 100 MG/ML UDC GT SCH ×2 (09:00→20:23)
[2019-02-04] MEDS: FOLIC ACID 1 MG TABLET GT SCH ×2 (09:00→17:16)
[2019-02-04] MEDS: Z GUARD REMEDY 4 OZ OINT TP SCH ×2 (09:00→20:23)
[2019-02-04] MEDS: SENNOSIDES 8.6 MG TABLET GT SCH ×2 (09:00→20:23)
[2019-02-04] MEDS: SERTRALINE HCL 25 MG TABLET GT SCH (09:00)
[2019-02-04] MEDS: HYDROGEN PEROXIDE 480 ML BOTTLE TP SCH ×2 (09:00→21:00)
[2019-02-04] MEDS: HEPARIN SODIUM, PORCINE 5000 UNITS/1 ML VIAL SQ SCH ×2 (09:00→20:23)
[2019-02-04] MEDS: BACLOFEN (10 MG) 10 MG TABLET GT SCH ×3 (09:00→17:16)
[2019-02-04 20:00] VITALS: BP 114/68
[2019-02-04] MEDS: POLYETHYLENE GLYCOL 3350 17 GM POWD.PACK GT SCH (21:45)
[2019-02-05] MEDS: ALBUTEROL FS 2.5 MG/3 ML VIAL.NEB NEB SCH ×4 (01:31→19:13)
[2019-02-05] MEDS: MYCOPHENOLATE MOFETIL SUSP 500 MG/2.5 ML UDC GT SCH ×2 (05:41→18:01)
[2019-02-05] MEDS: CHLORHEXIDINE GLUCONATE 15 ML UDC MM SCH ×2 (05:41→18:01)
[2019-02-05] MEDS: POLYVINYL ALCOHOL 15 ML BOTTLE EACHEYE SCH ×4 (05:41→23:07)
[2019-02-05 08:40] VITALS: BP 114/76
[2019-02-05] MEDS: HYDROGEN PEROXIDE 480 ML BOTTLE TP SCH ×2 (09:00→20:02)
[2019-02-05] MEDS: Z GUARD REMEDY 4 OZ OINT TP SCH ×2 (09:00→20:03)
[2019-02-05] MEDS: BACLOFEN (10 MG) 10 MG TABLET GT SCH ×3 (09:51→17:00)
[2019-02-05] MEDS: LEVETIRACETAM SOL (5 ML) 100 MG/ML UDC GT SCH ×2 (09:51→20:02)
[2019-02-05] MEDS: FOLIC ACID 1 MG TABLET GT SCH ×2 (09:51→17:00)
[2019-02-05] MEDS: SENNOSIDES 8.6 MG TABLET GT SCH ×2 (09:52→20:02)
[2019-02-05] MEDS: HEPARIN SODIUM, PORCINE 5000 UNITS/1 ML VIAL SQ SCH ×2 (09:52→21:12)
[2019-02-05] MEDS: SERTRALINE HCL 25 MG TABLET GT SCH (09:52)
[2019-02-05 19:50] VITALS: BP 124/77
[2019-02-05] MEDS: POLYETHYLENE GLYCOL 3350 17 GM POWD.PACK GT SCH (21:12)
[2019-02-06] MEDS: ALBUTEROL FS 2.5 MG/3 ML VIAL.NEB NEB SCH ×4 (01:38→20:11)
[2019-02-06] MEDS: MYCOPHENOLATE MOFETIL SUSP 500 MG/2.5 ML UDC GT SCH ×2 (05:04→17:44)
[2019-02-06] MEDS: POLYVINYL ALCOHOL 15 ML BOTTLE EACHEYE SCH ×3 (05:04→17:44)
[2019-02-06] MEDS: CHLORHEXIDINE GLUCONATE 15 ML UDC MM SCH ×2 (05:04→17:44)
[2019-02-06] MEDS: JEVITY 1.2 CAL 1,000 ML BOTTLE GT PRN ×2 (06:08→20:17)
[2019-02-06 07:44] VITALS: BP 150/76
[2019-02-06] MEDS: LEVETIRACETAM SOL (5 ML) 100 MG/ML UDC GT SCH ×2 (09:00→20:18)
[2019-02-06] MEDS: Z GUARD REMEDY 4 OZ OINT TP SCH ×2 (09:00→20:20)
[2019-02-06] MEDS: SENNOSIDES 8.6 MG TABLET GT SCH ×2 (09:00→20:18)
[2019-02-06] MEDS: HYDROGEN PEROXIDE 480 ML BOTTLE TP SCH ×2 (09:00→20:14)
[2019-02-06] MEDS: HEPARIN SODIUM, PORCINE 5000 UNITS/1 ML VIAL SQ SCH ×2 (09:00→20:19)
[2019-02-06] MEDS: BACLOFEN (10 MG) 10 MG TABLET GT SCH ×3 (09:00→17:02)
[2019-02-06] MEDS: SERTRALINE HCL 25 MG TABLET GT SCH (09:00)
[2019-02-06] MEDS: FOLIC ACID 1 MG TABLET GT SCH ×2 (09:00→17:02)
--- NOTE | 2019-02-06 15:53 | NUR ---
RT NOTE: RECEIVED PT ON 28% COOL AEROSOL. NO RESPIRATORY DISTRESS NOTED. TRACH CHECKED SECURE AND PATENT. SXD AND LAVAGED PT Q ROUND AND NEEDED. TXS GIVEN ORDERED WITH NO ADVERSE REACTIONS NOTED. TRACH CARE DONE. SPARE OLE AND LUIS F NICHOLSON @ BEDSIDE. ALARMS CHECKED. Addendum: 02/06/19 at 1554 by XU GOTTI RT Amended: Links added.
[2019-02-06 20:22] VITALS: BP 123/60
[2019-02-06] MEDS: POLYETHYLENE GLYCOL 3350 17 GM POWD.PACK GT SCH (21:21)
[2019-02-07] MEDS: POLYVINYL ALCOHOL 15 ML BOTTLE EACHEYE SCH ×4 (00:26→17:01)
[2019-02-07] MEDS: ALBUTEROL FS 2.5 MG/3 ML VIAL.NEB NEB SCH ×4 (02:06→19:35)
[2019-02-07] MEDS: MYCOPHENOLATE MOFETIL SUSP 500 MG/2.5 ML UDC GT SCH ×2 (05:40→17:01)
[2019-02-07] MEDS: CHLORHEXIDINE GLUCONATE 15 ML UDC MM SCH ×2 (05:40→17:01)
[2019-02-07 07:37] VITALS: BP 121/69
[2019-02-07] MEDS: HYDROGEN PEROXIDE 480 ML BOTTLE TP SCH ×2 (09:00→21:00)
[2019-02-07] MEDS: SENNOSIDES 8.6 MG TABLET GT SCH ×2 (09:14→20:53)
[2019-02-07] MEDS: LEVETIRACETAM SOL (5 ML) 100 MG/ML UDC GT SCH ×2 (09:14→20:53)
[2019-02-07] MEDS: SERTRALINE HCL 25 MG TABLET GT SCH (09:14)
[2019-02-07] MEDS: FOLIC ACID 1 MG TABLET GT SCH ×2 (09:14→16:01)
[2019-02-07] MEDS: BACLOFEN (10 MG) 10 MG TABLET GT SCH ×3 (09:14→16:01)
[2019-02-07] MEDS: HEPARIN SODIUM, PORCINE 5000 UNITS/1 ML VIAL SQ SCH ×2 (09:15→20:54)
[2019-02-07] MEDS: Z GUARD REMEDY 4 OZ OINT TP SCH ×2 (09:15→20:55)
[2019-02-07] MEDS: JEVITY 1.2 CAL 1,000 ML BOTTLE GT PRN (16:50)
[2019-02-07 20:29] VITALS: BP 121/69
[2019-02-07] MEDS: POLYETHYLENE GLYCOL 3350 17 GM POWD.PACK GT SCH (22:43)
[2019-02-08] MEDS: POLYVINYL ALCOHOL 15 ML BOTTLE EACHEYE SCH ×4 (00:36→17:43)
[2019-02-08] MEDS: ALBUTEROL FS 2.5 MG/3 ML VIAL.NEB NEB SCH ×4 (00:49→19:36)
[2019-02-08] MEDS: MYCOPHENOLATE MOFETIL SUSP 500 MG/2.5 ML UDC GT SCH ×2 (05:52→17:43)
[2019-02-08] MEDS: CHLORHEXIDINE GLUCONATE 15 ML UDC MM SCH ×2 (05:52→17:43)
[2019-02-08] MEDS: JEVITY 1.2 CAL 1,000 ML BOTTLE GT PRN (05:53)
[2019-02-08 07:57] VITALS: BP 113/74
[2019-02-08] MEDS: HYDROGEN PEROXIDE 480 ML BOTTLE TP SCH ×2 (09:54→21:00)
[2019-02-08] MEDS: SENNOSIDES 8.6 MG TABLET GT SCH ×2 (09:59→20:49)
[2019-02-08] MEDS: SERTRALINE HCL 25 MG TABLET GT SCH (09:59)
[2019-02-08] MEDS: Z GUARD REMEDY 4 OZ OINT TP SCH ×2 (09:59→20:51)
[2019-02-08] MEDS: LEVETIRACETAM SOL (5 ML) 100 MG/ML UDC GT SCH ×2 (09:59→20:52)
[2019-02-08] MEDS: BACLOFEN (10 MG) 10 MG TABLET GT SCH ×3 (09:59→17:04)
[2019-02-08] MEDS: HEPARIN SODIUM, PORCINE 5000 UNITS/1 ML VIAL SQ SCH ×2 (09:59→20:51)
[2019-02-08] MEDS: FOLIC ACID 1 MG TABLET GT SCH ×2 (09:59→17:04)
[2019-02-08 20:30] VITALS: BP 114/68
[2019-02-08] MEDS: POLYETHYLENE GLYCOL 3350 17 GM POWD.PACK GT SCH (21:28)
[2019-02-09] MEDS: POLYVINYL ALCOHOL 15 ML BOTTLE EACHEYE SCH ×4 (00:22→17:17)
[2019-02-09] MEDS: ALBUTEROL FS 2.5 MG/3 ML VIAL.NEB NEB SCH ×4 (01:34→20:25)
[2019-02-09] MEDS: JEVITY 1.2 CAL 1,000 ML BOTTLE GT PRN (04:42)
[2019-02-09] MEDS: MYCOPHENOLATE MOFETIL SUSP 500 MG/2.5 ML UDC GT SCH ×2 (05:10→18:32)
[2019-02-09] MEDS: CHLORHEXIDINE GLUCONATE 15 ML UDC MM SCH ×2 (05:10→17:17)
[2019-02-09 08:05] VITALS: BP 105/53
[2019-02-09] MEDS: LEVETIRACETAM SOL (5 ML) 100 MG/ML UDC GT SCH ×2 (08:34→20:48)
[2019-02-09] MEDS: FOLIC ACID 1 MG TABLET GT SCH ×2 (08:34→17:17)
[2019-02-09] MEDS: SERTRALINE HCL 25 MG TABLET GT SCH (08:34)
[2019-02-09] MEDS: BACLOFEN (10 MG) 10 MG TABLET GT SCH ×3 (08:34→17:17)
[2019-02-09] MEDS: SENNOSIDES 8.6 MG TABLET GT SCH ×2 (08:34→20:48)
[2019-02-09] MEDS: Z GUARD REMEDY 4 OZ OINT TP SCH ×2 (08:35→20:49)
[2019-02-09] MEDS: HEPARIN SODIUM, PORCINE 5000 UNITS/1 ML VIAL SQ SCH ×2 (08:35→20:49)
[2019-02-09] MEDS: HYDROGEN PEROXIDE 480 ML BOTTLE TP SCH ×2 (09:00→20:25)
--- NOTE | 2019-02-09 15:30 | NUR ---
HILTON received a call from [facility] APS nursery supervisor, Toma Tucker [phone] stating that Toma had left a voicemail for SW on 01/25/19 regarding a case that has been opened for pt. However, social psychologist never heard voicemail as SW did not have password to previous subacute SWs voicemail on 01/25. Therefore, [facility] made a new voicemail account for new SW and all previous voicemails were lost. Amberly expressed understanding. HILTON called and spoke to Amberly who stated that for APS case #[id number] irt is suggested that SW to make report to Public Guardian and attempt to file for rep. payee. SW will begin public guardian process. HILTON contacted Head Screen Worker, Elissa to determine if there are any pt.s finances to be handled in order for us to apply for Rep. Payee. Call went to voicemail and SW left details for Elissa. SW waiting for Tiffany response.
--- NOTE | 2019-02-09 16:25 | NUR ---
Concrete Batch Plant Operator contacted Public Guardian [phone] and spoke with Ivan to verify if a report had been made previously and to check on the status. Per Ivan, a report was made in 2018 and Ivan forwarded me to [place] who had handled the case in 2018. The call went to [facility] and left contact information for [place]. HILTON will await call-back from [place] and will follow-up.
[2019-02-09 20:18] VITALS: BP 122/66
[2019-02-09] MEDS: POLYETHYLENE GLYCOL 3350 17 GM POWD.PACK GT SCH (21:41)
[2019-02-10] MEDS: POLYVINYL ALCOHOL 15 ML BOTTLE EACHEYE SCH ×4 (00:37→18:23)
[2019-02-10] MEDS: ALBUTEROL FS 2.5 MG/3 ML VIAL.NEB NEB SCH ×4 (01:53→19:38)
[2019-02-10] MEDS: MYCOPHENOLATE MOFETIL SUSP 500 MG/2.5 ML UDC GT SCH ×2 (05:11→18:23)
[2019-02-10] MEDS: CHLORHEXIDINE GLUCONATE 15 ML UDC MM SCH ×2 (05:12→18:23)
[2019-02-10 07:55] VITALS: BP 135/70
[2019-02-10] MEDS: SENNOSIDES 8.6 MG TABLET GT SCH ×2 (09:37→20:59)
[2019-02-10] MEDS: FOLIC ACID 1 MG TABLET GT SCH ×2 (09:37→16:27)
[2019-02-10] MEDS: LEVETIRACETAM SOL (5 ML) 100 MG/ML UDC GT SCH ×2 (09:37→20:59)
[2019-02-10] MEDS: SERTRALINE HCL 25 MG TABLET GT SCH (09:37)
[2019-02-10] MEDS: BACLOFEN (10 MG) 10 MG TABLET GT SCH ×3 (09:37→16:27)
[2019-02-10] MEDS: Z GUARD REMEDY 4 OZ OINT TP SCH ×2 (09:38→21:00)
[2019-02-10] MEDS: HEPARIN SODIUM, PORCINE 5000 UNITS/1 ML VIAL SQ SCH ×2 (09:38→21:00)
[2019-02-10] MEDS: HYDROGEN PEROXIDE 480 ML BOTTLE TP SCH ×2 (09:47→21:00)
--- NOTE | 2019-02-10 10:52 | NUR ---
Motor Power Connector received visit from APS worker stating that the case #[id number] is being closed as the resident is safe as she resides in Subacute Unit. Per APS workers request, SW printed out patients initial and last face sheet as evidence that the patient is residing in [facility] Subacute. No further actions required.
[2019-02-10 15:38] LABS: ALBUMIN 2.9 g/dL (3.4-5.0); BILIRUBIN,TOTAL 0.2 mg/dL (0.2-1.0); CALCIUM, SERUM 9.3 mg/dL (8.5-10.1); CREATININE 0.7 mg/dL (0.6-1.3); POTASSIUM 3.8 mmol/L (3.5-5.1); TOTAL PROTEIN, SERUM 7.6 g/dL (6.4-8.2)
--- NOTE | 2019-02-10 16:13 | NUR ---
HILTON followed-up and contacted Public Guardian [phone] who gave SW, Ariadne Camcaho . HILTON contacted Wyatt at said Tel #, however, there was no answer nor option to leave voicemail. May be incorrect number for Ariadne Schneider. HILTON to follow-up.
[2019-02-10] MEDS: JEVITY 1.2 CAL 1,000 ML BOTTLE GT PRN (19:05)
[2019-02-10 20:10] VITALS: BP 117/75
[2019-02-10] MEDS: POLYETHYLENE GLYCOL 3350 17 GM POWD.PACK GT SCH (21:00)
--- NOTE | 2019-02-10 21:00 | NUR ---
Seen by Sugar Spangler no new orders.
[2019-02-11] MEDS: POLYVINYL ALCOHOL 15 ML BOTTLE EACHEYE SCH ×4 (00:38→18:42)
[2019-02-11] MEDS: ALBUTEROL FS 2.5 MG/3 ML VIAL.NEB NEB SCH ×4 (02:03→19:31)
[2019-02-11] MEDS: CHLORHEXIDINE GLUCONATE 15 ML UDC MM SCH ×2 (05:49→18:42)
[2019-02-11] MEDS: MYCOPHENOLATE MOFETIL SUSP 500 MG/2.5 ML UDC GT SCH ×2 (05:49→18:42)
[2019-02-11 06:12] LABS: BASOPHILS # (AUTO) 0.1 /CMM (0.0-0.2); BASOPHILS % (AUTO) 0.7 % (0.0-2.0); EOSINOPHILS % (AUTO) 2.6 % (0.0-6.0); HEMATOCRIT 36 % (33-45); HEMOGLOBIN 11.5 g/dL (11.5-14.8); LYMPHOCYTES % (AUTO) 26.8 % (20.0-44.0); MEAN CORPUSCULAR HGB CONC 32 g/dl (31.0-36.0); MEAN CORPUSCULAR VOLUME 84 fL (82-100); MONOCYTES # (AUTO) 0.8 /CMM (0.1-1.30); MONOCYTES % (AUTO) 10.6 % (2.0-12.0); NEUTROPHILS # (AUTO) 4.3 /CMM (1.8-8.9); NEUTROPHILS % (AUTO) 59.3 % (43.0-81.0); PLATELET COUNT (AUTO) 372 /CMM (150-450); RED BLOOD CELL COUNT(AUTO) 4.25 MIL/uL (4.0-5.2); WHITE BLOOD COUNT (AUTO) 7.3 K/uL (4.3-11.0)
[2019-02-11 07:25] VITALS: BP 137/73
--- NOTE | 2019-02-11 08:32 | NUR ---
Seen and examined by Dr. Elton Aguilar, NNO given.
[2019-02-11] MEDS: HEPARIN SODIUM, PORCINE 5000 UNITS/1 ML VIAL SQ SCH ×2 (09:00→21:53)
[2019-02-11] MEDS: SERTRALINE HCL 25 MG TABLET GT SCH (09:00)
[2019-02-11] MEDS: Z GUARD REMEDY 4 OZ OINT TP SCH ×2 (09:00→21:54)
[2019-02-11] MEDS: BACLOFEN (10 MG) 10 MG TABLET GT SCH ×3 (09:00→17:00)
[2019-02-11] MEDS: SENNOSIDES 8.6 MG TABLET GT SCH ×2 (09:00→21:53)
[2019-02-11] MEDS: FOLIC ACID 1 MG TABLET GT SCH ×2 (09:00→17:00)
[2019-02-11] MEDS: LEVETIRACETAM SOL (5 ML) 100 MG/ML UDC GT SCH ×2 (09:00→21:53)
[2019-02-11 09:29] LABS: EOSINOPHILS % (MANUAL) 5 % (0-4); LYMPHOCYTES % (MANUAL) 27 % (16-48); MONOCYTES % (MANUAL) 4 % (0-11.0); NEUTROPHILS % (MANUAL) 64 (42-76)
[2019-02-11] MEDS: HYDROGEN PEROXIDE 480 ML BOTTLE TP SCH ×2 (09:39→20:23)
[2019-02-11] MEDS: JEVITY 1.2 CAL 1,000 ML BOTTLE GT PRN (18:42)
[2019-02-11 20:05] VITALS: BP 121/56
[2019-02-11] MEDS: POLYETHYLENE GLYCOL 3350 17 GM POWD.PACK GT SCH (21:54)
[2019-02-12] MEDS: POLYVINYL ALCOHOL 15 ML BOTTLE EACHEYE SCH ×4 (00:30→18:19)
[2019-02-12] MEDS: ALBUTEROL FS 2.5 MG/3 ML VIAL.NEB NEB SCH ×4 (00:52→19:54)
[2019-02-12] MEDS: JEVITY 1.2 CAL 1,000 ML BOTTLE GT PRN ×2 (01:31→16:50)
[2019-02-12] MEDS: CHLORHEXIDINE GLUCONATE 15 ML UDC MM SCH ×2 (06:17→18:19)
[2019-02-12] MEDS: MYCOPHENOLATE MOFETIL SUSP 500 MG/2.5 ML UDC GT SCH ×2 (06:17→18:19)
[2019-02-12 08:03] VITALS: BP 105/75
[2019-02-12] MEDS: HEPARIN SODIUM, PORCINE 5000 UNITS/1 ML VIAL SQ SCH ×2 (09:00→21:09)
[2019-02-12] MEDS: SERTRALINE HCL 25 MG TABLET GT SCH (09:00)
[2019-02-12] MEDS: SENNOSIDES 8.6 MG TABLET GT SCH ×2 (09:00→21:08)
[2019-02-12] MEDS: LEVETIRACETAM SOL (5 ML) 100 MG/ML UDC GT SCH ×2 (09:00→21:08)
[2019-02-12] MEDS: FOLIC ACID 1 MG TABLET GT SCH ×2 (09:00→16:50)
[2019-02-12] MEDS: BACLOFEN (10 MG) 10 MG TABLET GT SCH ×3 (09:00→16:50)
[2019-02-12] MEDS: Z GUARD REMEDY 4 OZ OINT TP SCH ×2 (09:00→21:10)
[2019-02-12] MEDS: HYDROGEN PEROXIDE 480 ML BOTTLE TP SCH ×2 (09:05→21:10)
[2019-02-12 20:01] VITALS: BP 123/75
[2019-02-12] MEDS: POLYETHYLENE GLYCOL 3350 17 GM POWD.PACK GT SCH (22:06)
[2019-02-13] MEDS: POLYVINYL ALCOHOL 15 ML BOTTLE EACHEYE SCH ×4 (00:21→18:46)
[2019-02-13] MEDS: ALBUTEROL FS 2.5 MG/3 ML VIAL.NEB NEB SCH ×4 (00:43→20:00)
[2019-02-13] MEDS: MYCOPHENOLATE MOFETIL SUSP 500 MG/2.5 ML UDC GT SCH ×2 (05:56→18:46)
[2019-02-13] MEDS: CHLORHEXIDINE GLUCONATE 15 ML UDC MM SCH ×2 (05:57→18:46)
[2019-02-13 08:00] VITALS: BP 138/55
[2019-02-13] MEDS: Z GUARD REMEDY 4 OZ OINT TP SCH ×2 (09:00→21:40)
[2019-02-13] MEDS: HYDROGEN PEROXIDE 480 ML BOTTLE TP SCH ×2 (09:00→21:34)
[2019-02-13] MEDS: SERTRALINE HCL 25 MG TABLET GT SCH (09:55)
[2019-02-13] MEDS: SENNOSIDES 8.6 MG TABLET GT SCH ×2 (09:55→21:39)
[2019-02-13] MEDS: FOLIC ACID 1 MG TABLET GT SCH ×2 (09:55→17:00)
[2019-02-13] MEDS: BACLOFEN (10 MG) 10 MG TABLET GT SCH ×3 (09:55→17:00)
[2019-02-13] MEDS: LEVETIRACETAM SOL (5 ML) 100 MG/ML UDC GT SCH ×2 (09:55→21:39)
[2019-02-13] MEDS: HEPARIN SODIUM, PORCINE 5000 UNITS/1 ML VIAL SQ SCH ×2 (09:56→21:40)
[2019-02-13] MEDS: JEVITY 1.2 CAL 1,000 ML BOTTLE GT PRN (16:00)
[2019-02-13 20:26] VITALS: BP 109/58
[2019-02-13] MEDS: POLYETHYLENE GLYCOL 3350 17 GM POWD.PACK GT SCH (21:40)
[2019-02-14] MEDS: POLYVINYL ALCOHOL 15 ML BOTTLE EACHEYE SCH ×4 (00:14→18:40)
[2019-02-14] MEDS: ALBUTEROL FS 2.5 MG/3 ML VIAL.NEB NEB SCH ×4 (01:49→19:47)
[2019-02-14] MEDS: CHLORHEXIDINE GLUCONATE 15 ML UDC MM SCH ×2 (05:56→18:40)
[2019-02-14] MEDS: MYCOPHENOLATE MOFETIL SUSP 500 MG/2.5 ML UDC GT SCH ×2 (05:56→18:00)
[2019-02-14] MEDS: JEVITY 1.2 CAL 1,000 ML BOTTLE GT PRN (05:58)
[2019-02-14 07:37] VITALS: BP 142/98
[2019-02-14] MEDS: FOLIC ACID 1 MG TABLET GT SCH ×2 (09:33→17:00)
[2019-02-14] MEDS: HEPARIN SODIUM, PORCINE 5000 UNITS/1 ML VIAL SQ SCH ×2 (09:33→20:53)
[2019-02-14] MEDS: SERTRALINE HCL 25 MG TABLET GT SCH (09:33)
[2019-02-14] MEDS: SENNOSIDES 8.6 MG TABLET GT SCH ×2 (09:33→20:52)
[2019-02-14] MEDS: LEVETIRACETAM SOL (5 ML) 100 MG/ML UDC GT SCH ×2 (09:33→20:52)
[2019-02-14] MEDS: BACLOFEN (10 MG) 10 MG TABLET GT SCH ×3 (09:33→17:00)
[2019-02-14] MEDS: HYDROGEN PEROXIDE 480 ML BOTTLE TP SCH ×2 (09:34→21:00)
[2019-02-14] MEDS: Z GUARD REMEDY 4 OZ OINT TP SCH ×2 (09:34→20:54)
--- NOTE | 2019-02-14 16:45 | NUR ---
Pt's G-tube came out with balloon intact. Immediately replaced G-tube with same size to maintain patency of stoma. Left message for Dr Aguilar.
--- NOTE | 2019-02-14 17:35 | NUR ---
Informed JEWELRY SALESPERSON Sugar Spangler that pt's G-tube came out and it was replaced. She ordered to do KUB to confirm proper placement. Notified pt's father.
[2019-02-14] MEDS ORDERED: DIATR MEGLU/DIATRIZOATE SODIUM 30 ML BOTTLE (GASTROGRAPHIN) ONE (17:41)
--- NOTE | 2019-02-14 18:58 | NUR ---
meds not given. gtube dislodged.pending KUB result.endorsed to material handler 2nd shift.
[2019-02-14 20:17] VITALS: BP 117/65
[2019-02-14] MEDS: POLYETHYLENE GLYCOL 3350 17 GM POWD.PACK GT SCH (21:17)
[2019-02-15] MEDS: POLYVINYL ALCOHOL 15 ML BOTTLE EACHEYE SCH ×5 (00:49→23:58)
[2019-02-15] MEDS: ALBUTEROL FS 2.5 MG/3 ML VIAL.NEB NEB SCH ×4 (01:54→20:13)
[2019-02-15] MEDS: JEVITY 1.2 CAL 1,000 ML BOTTLE GT PRN ×2 (05:17→18:29)
[2019-02-15] MEDS: CHLORHEXIDINE GLUCONATE 15 ML UDC MM SCH ×2 (05:29→17:13)
[2019-02-15] MEDS: MYCOPHENOLATE MOFETIL SUSP 500 MG/2.5 ML UDC GT SCH ×2 (05:29→17:13)
[2019-02-15 07:37] VITALS: BP 118/70
[2019-02-15] MEDS: HYDROGEN PEROXIDE 480 ML BOTTLE TP SCH ×2 (09:00→20:13)
[2019-02-15] MEDS: SENNOSIDES 8.6 MG TABLET GT SCH ×2 (09:48→20:42)
[2019-02-15] MEDS: SERTRALINE HCL 25 MG TABLET GT SCH (09:48)
[2019-02-15] MEDS: BACLOFEN (10 MG) 10 MG TABLET GT SCH ×3 (09:48→17:12)
[2019-02-15] MEDS: FOLIC ACID 1 MG TABLET GT SCH ×2 (09:48→17:12)
[2019-02-15] MEDS: LEVETIRACETAM SOL (5 ML) 100 MG/ML UDC GT SCH ×2 (09:48→20:40)
[2019-02-15] MEDS: Z GUARD REMEDY 4 OZ OINT TP SCH ×2 (09:49→20:42)
[2019-02-15] MEDS: HEPARIN SODIUM, PORCINE 5000 UNITS/1 ML VIAL SQ SCH ×2 (09:49→20:42)
[2019-02-15 20:07] VITALS: BP 129/73
[2019-02-15] MEDS: POLYETHYLENE GLYCOL 3350 17 GM POWD.PACK GT SCH (21:11)
[2019-02-16] MEDS: ALBUTEROL FS 2.5 MG/3 ML VIAL.NEB NEB SCH ×4 (01:55→19:40)
[2019-02-16] MEDS: POLYVINYL ALCOHOL 15 ML BOTTLE EACHEYE SCH ×3 (05:10→18:18)
[2019-02-16] MEDS: MYCOPHENOLATE MOFETIL SUSP 500 MG/2.5 ML UDC GT SCH ×2 (05:11→18:18)
[2019-02-16] MEDS: CHLORHEXIDINE GLUCONATE 15 ML UDC MM SCH ×2 (05:11→18:18)
[2019-02-16] MEDS: HYDROGEN PEROXIDE 480 ML BOTTLE TP SCH ×2 (06:58→21:00)
[2019-02-16 07:53] VITALS: BP 109/71
[2019-02-16] MEDS: LEVETIRACETAM SOL (5 ML) 100 MG/ML UDC GT SCH ×2 (09:00→21:14)
[2019-02-16] MEDS: SENNOSIDES 8.6 MG TABLET GT SCH ×2 (09:00→21:14)
[2019-02-16] MEDS: HEPARIN SODIUM, PORCINE 5000 UNITS/1 ML VIAL SQ SCH ×2 (09:00→21:15)
[2019-02-16] MEDS: BACLOFEN (10 MG) 10 MG TABLET GT SCH ×3 (09:00→16:30)
[2019-02-16] MEDS: FOLIC ACID 1 MG TABLET GT SCH ×2 (09:00→16:30)
[2019-02-16] MEDS: SERTRALINE HCL 25 MG TABLET GT SCH (09:00)
[2019-02-16] MEDS: Z GUARD REMEDY 4 OZ OINT TP SCH ×2 (09:00→21:15)
--- NOTE | 2019-02-16 09:48 | NUR ---
RT PATIENT REC'D TRACHED ON ORDERED MODALITY TOLERATED WELL. PATIENT APPEARS COMFORTABLE AND IN NO DISTRESS AT THIS TIME. ALL SAFETY MEASURES CHECKED. WILL CONTINUE TO MONITOR CLOSELY. CONTINUE CURRENT PLAN OF RESP CARE. Addendum: 02/16/19 at 0948 by TAMIKA APPIAH RT Amended: Links added.
[2019-02-16] MEDS: JEVITY 1.2 CAL 1,000 ML BOTTLE GT PRN (13:26)
[2019-02-16 20:21] VITALS: BP 117/54
[2019-02-16] MEDS: POLYETHYLENE GLYCOL 3350 17 GM POWD.PACK GT SCH (21:15)
[2019-02-17] MEDS: POLYVINYL ALCOHOL 15 ML BOTTLE EACHEYE SCH ×4 (00:14→17:42)
[2019-02-17] MEDS: ALBUTEROL FS 2.5 MG/3 ML VIAL.NEB NEB SCH ×4 (01:52→19:40)
[2019-02-17] MEDS: CHLORHEXIDINE GLUCONATE 15 ML UDC MM SCH ×2 (05:30→17:42)
[2019-02-17] MEDS: MYCOPHENOLATE MOFETIL SUSP 500 MG/2.5 ML UDC GT SCH ×2 (05:30→17:42)
[2019-02-17 07:28] VITALS: BP 106/71
[2019-02-17] MEDS: SERTRALINE HCL 25 MG TABLET GT SCH (09:00)
[2019-02-17] MEDS: SENNOSIDES 8.6 MG TABLET GT SCH ×2 (09:00→21:16)
[2019-02-17] MEDS: BACLOFEN (10 MG) 10 MG TABLET GT SCH ×3 (09:00→17:42)
[2019-02-17] MEDS: Z GUARD REMEDY 4 OZ OINT TP SCH ×2 (09:00→21:17)
[2019-02-17] MEDS: FOLIC ACID 1 MG TABLET GT SCH ×2 (09:00→17:42)
[2019-02-17] MEDS: LEVETIRACETAM SOL (5 ML) 100 MG/ML UDC GT SCH ×2 (09:00→21:16)
[2019-02-17] MEDS: HEPARIN SODIUM, PORCINE 5000 UNITS/1 ML VIAL SQ SCH ×2 (09:00→21:17)
[2019-02-17] MEDS: HYDROGEN PEROXIDE 480 ML BOTTLE TP SCH ×3 (09:00→21:17)
--- NOTE | 2019-02-17 15:57 | NUR ---
Family invited to IDT /Conservatorship HILTON called patients responsible republican/father, Dr. Darrel Swift [phone] to invite him the IDT plan of care conference being held tomorrow February 18, 2019 in the activities room from 12:30pm-1:30pm. The call went to [email or web address] and HILTON left message with SW contact information. HILTON followed up and contacted Darrel again. Call went to voicemail and SW left details of IDT time and location. HILTON also communicated that family may call nursing station for patient update as needed. HILTON also called pt.s daughter, Lisa to invite them to the IDT plan of care conference being held tomorrow February 18, 2019 in the activities room from 12:30pm-1:30pm. Per Lisa, she cannot make it as she will be working but maybe her brother can attend, in which case she will inform me. HILTON also talked to Lisa about conservatorship and Per Lisa conservatorship. HILTON reviewed patients chart again only to find a notice of referral disposition from [facility] dated 06/18/18 stating that a referral for Probate Conservatorship has been reviewed and investigated. However, no petition was filed as a suitable alternative has been found. It is further outlined that it is determined that the residents needs are being met by her family so there is no imminent need for probate conservatorship. HILTON contacted Lisa back to determine if the Referral Disposition from [facility] dated 06/18/18 is the paperwork she was referring to and ensure that were on the same page. Per Lisa, it seems that might be the paperwork she has but per Lisa, she will find the paperwork she has and bring in a copy to [facility]. HILTON will wait for paperwork.
[2019-02-17 19:47] VITALS: BP 111/67
[2019-02-17] MEDS: POLYETHYLENE GLYCOL 3350 17 GM POWD.PACK GT SCH (21:17)
[2019-02-18] MEDS: ALBUTEROL FS 2.5 MG/3 ML VIAL.NEB NEB SCH ×4 (01:05→20:18)
[2019-02-18] MEDS: JEVITY 1.2 CAL 1,000 ML BOTTLE GT PRN ×2 (01:20→21:58)
[2019-02-18] MEDS: POLYVINYL ALCOHOL 15 ML BOTTLE EACHEYE SCH ×4 (05:23→18:22)
[2019-02-18] MEDS: MYCOPHENOLATE MOFETIL SUSP 500 MG/2.5 ML UDC GT SCH ×2 (05:24→18:22)
[2019-02-18] MEDS: CHLORHEXIDINE GLUCONATE 15 ML UDC MM SCH ×2 (05:24→18:22)
[2019-02-18 07:32] VITALS: BP 127/65
[2019-02-18] MEDS: HYDROGEN PEROXIDE 480 ML BOTTLE TP SCH ×2 (08:00→20:37)
[2019-02-18] MEDS: SENNOSIDES 8.6 MG TABLET GT SCH ×2 (09:47→21:39)
[2019-02-18] MEDS: LEVETIRACETAM SOL (5 ML) 100 MG/ML UDC GT SCH ×2 (09:47→21:39)
[2019-02-18] MEDS: BACLOFEN (10 MG) 10 MG TABLET GT SCH ×3 (09:47→16:36)
[2019-02-18] MEDS: FOLIC ACID 1 MG TABLET GT SCH ×2 (09:47→16:36)
[2019-02-18] MEDS: SERTRALINE HCL 25 MG TABLET GT SCH (09:47)
[2019-02-18] MEDS: Z GUARD REMEDY 4 OZ OINT TP SCH ×2 (09:49→21:40)
[2019-02-18] MEDS: HEPARIN SODIUM, PORCINE 5000 UNITS/1 ML VIAL SQ SCH ×2 (09:49→21:40)
--- NOTE | 2019-02-18 13:46 | NUR ---
INTERDISCIPLINARY PLAN OF CARE CONFERENCE was held today. IDT attempted to contact the patients responsible alliance party/daughter Lisa [phone]. Dr. Lubin and interdisciplinary team discussed the current plan of care in detail. Current orders as well as treatments and medications were reviewed. IDT discussed the patient is at a healthy weight and his feeding regimen will remain the same. See other disciplines IDT notes for further details. No new orders.
--- NOTE | 2019-02-18 16:05 | NUR ---
RT NOTE: RECEIVED TRACH PT ON 28% COOL AEROSOL. NO RESPIRATORY DISTRESS NOTED. TRACH CHECKED SECURE AND PATENT. SXD AND LAVAGED PT Q ROUND AND NEEDED. TXS GIVEN ORDERED WITH NO ADVERSE REACTIONS NOTED. TRACH CARE DONE. SPARE TRACH AND AMBU BAG @ BEDSIDE.
[2019-02-18 19:45] VITALS: BP 124/62
[2019-02-18] MEDS: POLYETHYLENE GLYCOL 3350 17 GM POWD.PACK GT SCH (21:40)
[2019-02-19] MEDS: POLYVINYL ALCOHOL 15 ML BOTTLE EACHEYE SCH ×5 (00:40→23:51)
[2019-02-19] MEDS: ALBUTEROL FS 2.5 MG/3 ML VIAL.NEB NEB SCH ×4 (01:30→20:02)
[2019-02-19] MEDS: MYCOPHENOLATE MOFETIL SUSP 500 MG/2.5 ML UDC GT SCH ×2 (05:44→17:02)
[2019-02-19] MEDS: CHLORHEXIDINE GLUCONATE 15 ML UDC MM SCH ×2 (05:44→17:02)
[2019-02-19 07:34] VITALS: BP 110/61
[2019-02-19] MEDS: LEVETIRACETAM SOL (5 ML) 100 MG/ML UDC GT SCH ×2 (08:22→21:33)
[2019-02-19] MEDS: SENNOSIDES 8.6 MG TABLET GT SCH ×2 (08:22→21:33)
[2019-02-19] MEDS: FOLIC ACID 1 MG TABLET GT SCH ×2 (08:22→17:02)
[2019-02-19] MEDS: BACLOFEN (10 MG) 10 MG TABLET GT SCH ×3 (08:22→17:02)
[2019-02-19] MEDS: SERTRALINE HCL 25 MG TABLET GT SCH (08:22)
[2019-02-19] MEDS: HEPARIN SODIUM, PORCINE 5000 UNITS/1 ML VIAL SQ SCH ×2 (08:23→21:34)
[2019-02-19] MEDS: Z GUARD REMEDY 4 OZ OINT TP SCH ×2 (08:24→21:34)
[2019-02-19] MEDS: HYDROGEN PEROXIDE 480 ML BOTTLE TP SCH ×2 (09:00→21:05)
[2019-02-19 19:46] VITALS: BP 115/69
[2019-02-19] MEDS: POLYETHYLENE GLYCOL 3350 17 GM POWD.PACK GT SCH (21:34)
[2019-02-20] MEDS: ALBUTEROL FS 2.5 MG/3 ML VIAL.NEB NEB SCH ×4 (01:36→19:56)
[2019-02-20] MEDS: JEVITY 1.2 CAL 1,000 ML BOTTLE GT PRN ×2 (04:53→21:43)
[2019-02-20] MEDS: CHLORHEXIDINE GLUCONATE 15 ML UDC MM SCH ×2 (05:00→17:49)
[2019-02-20] MEDS: POLYVINYL ALCOHOL 15 ML BOTTLE EACHEYE SCH ×4 (05:00→23:53)
[2019-02-20] MEDS: MYCOPHENOLATE MOFETIL SUSP 500 MG/2.5 ML UDC GT SCH ×2 (05:00→17:49)
[2019-02-20 07:53] VITALS: BP 110/75
[2019-02-20] MEDS: FOLIC ACID 1 MG TABLET GT SCH ×2 (09:00→17:49)
[2019-02-20] MEDS: Z GUARD REMEDY 4 OZ OINT TP SCH ×2 (09:00→20:23)
[2019-02-20] MEDS: SENNOSIDES 8.6 MG TABLET GT SCH ×2 (09:00→20:20)
[2019-02-20] MEDS: SERTRALINE HCL 25 MG TABLET GT SCH (09:00)
[2019-02-20] MEDS: HEPARIN SODIUM, PORCINE 5000 UNITS/1 ML VIAL SQ SCH ×2 (09:00→20:20)
[2019-02-20] MEDS: HYDROGEN PEROXIDE 480 ML BOTTLE TP SCH ×2 (09:00→19:56)
[2019-02-20] MEDS: LEVETIRACETAM SOL (5 ML) 100 MG/ML UDC GT SCH ×2 (09:00→20:20)
[2019-02-20] MEDS: BACLOFEN (10 MG) 10 MG TABLET GT SCH ×3 (09:00→17:49)
[2019-02-20 20:31] VITALS: BP 114/62
[2019-02-20] MEDS: POLYETHYLENE GLYCOL 3350 17 GM POWD.PACK GT SCH (21:43)
[2019-02-21] MEDS: ALBUTEROL FS 2.5 MG/3 ML VIAL.NEB NEB SCH ×4 (01:01→20:09)
[2019-02-21] MEDS: POLYVINYL ALCOHOL 15 ML BOTTLE EACHEYE SCH ×3 (05:14→18:23)
[2019-02-21] MEDS: CHLORHEXIDINE GLUCONATE 15 ML UDC MM SCH ×2 (05:14→18:23)
[2019-02-21] MEDS: MYCOPHENOLATE MOFETIL SUSP 500 MG/2.5 ML UDC GT SCH ×2 (05:14→18:23)
[2019-02-21 08:38] VITALS: BP 127/80
[2019-02-21] MEDS: BACLOFEN (10 MG) 10 MG TABLET GT SCH ×3 (08:44→17:00)
[2019-02-21] MEDS: LEVETIRACETAM SOL (5 ML) 100 MG/ML UDC GT SCH ×2 (08:44→21:44)
[2019-02-21] MEDS: FOLIC ACID 1 MG TABLET GT SCH ×2 (08:44→17:00)
[2019-02-21] MEDS: SENNOSIDES 8.6 MG TABLET GT SCH ×2 (08:44→21:44)
[2019-02-21] MEDS: SERTRALINE HCL 25 MG TABLET GT SCH (08:44)
[2019-02-21] MEDS: HEPARIN SODIUM, PORCINE 5000 UNITS/1 ML VIAL SQ SCH ×2 (08:45→21:44)
[2019-02-21] MEDS: Z GUARD REMEDY 4 OZ OINT TP SCH ×2 (09:00→21:45)
[2019-02-21] MEDS: HYDROGEN PEROXIDE 480 ML BOTTLE TP SCH ×2 (09:00→20:11)
[2019-02-21] MEDS: JEVITY 1.2 CAL 1,000 ML BOTTLE GT PRN (13:38)
[2019-02-21 19:47] VITALS: BP 108/79
[2019-02-21 19:58] VITALS: BP 109/79
[2019-02-21] MEDS: POLYETHYLENE GLYCOL 3350 17 GM POWD.PACK GT SCH (21:45)
[2019-02-22] MEDS: POLYVINYL ALCOHOL 15 ML BOTTLE EACHEYE SCH ×5 (00:06→23:04)
[2019-02-22] MEDS: ALBUTEROL FS 2.5 MG/3 ML VIAL.NEB NEB SCH ×4 (01:38→20:26)
[2019-02-22] MEDS: JEVITY 1.2 CAL 1,000 ML BOTTLE GT PRN (03:11)
[2019-02-22] MEDS: CHLORHEXIDINE GLUCONATE 15 ML UDC MM SCH ×2 (05:30→17:21)
[2019-02-22] MEDS: MYCOPHENOLATE MOFETIL SUSP 500 MG/2.5 ML UDC GT SCH ×2 (05:30→17:21)
[2019-02-22] MEDS: HEPARIN SODIUM, PORCINE 5000 UNITS/1 ML VIAL SQ SCH ×2 (09:00→21:02)
[2019-02-22] MEDS: LEVETIRACETAM SOL (5 ML) 100 MG/ML UDC GT SCH ×2 (09:00→21:02)
[2019-02-22] MEDS: SENNOSIDES 8.6 MG TABLET GT SCH ×2 (09:00→21:02)
[2019-02-22] MEDS: FOLIC ACID 1 MG TABLET GT SCH ×2 (09:00→16:18)
[2019-02-22] MEDS: Z GUARD REMEDY 4 OZ OINT TP SCH ×2 (09:00→21:03)
[2019-02-22] MEDS: HYDROGEN PEROXIDE 480 ML BOTTLE TP SCH ×2 (09:00→21:02)
[2019-02-22] MEDS: SERTRALINE HCL 25 MG TABLET GT SCH (09:00)
[2019-02-22] MEDS: BACLOFEN (10 MG) 10 MG TABLET GT SCH ×3 (09:00→16:18)
--- NOTE | 2019-02-22 09:51 | NUR ---
Invite to Family Support Group: HILTON called patients responsible constitution party/daughter Lisa [phone]. to invite them to attend the family support group being held tomorrow, February 23, 2019 from 11 am-12pm in the old admin. conference room in the first floor. Per Lisa, she is not available to attend the family support group as she has a prescheduled event. No further action required. HILTON provided Lisa with next months date so that she may plan to attend.
[2019-02-22 10:01] VITALS: BP 11/57
[2019-02-22 20:05] VITALS: BP 135/65
[2019-02-22] MEDS: POLYETHYLENE GLYCOL 3350 17 GM POWD.PACK GT SCH (21:03)
[2019-02-23] MEDS: ALBUTEROL FS 2.5 MG/3 ML VIAL.NEB NEB SCH ×4 (01:55→20:05)
[2019-02-23] MEDS: CHLORHEXIDINE GLUCONATE 15 ML UDC MM SCH ×2 (05:30→17:02)
[2019-02-23] MEDS: MYCOPHENOLATE MOFETIL SUSP 500 MG/2.5 ML UDC GT SCH ×2 (05:30→17:02)
[2019-02-23] MEDS: POLYVINYL ALCOHOL 15 ML BOTTLE EACHEYE SCH ×3 (05:30→17:02)
[2019-02-23 07:51] VITALS: BP 116/74
[2019-02-23] MEDS: HYDROGEN PEROXIDE 480 ML BOTTLE TP SCH ×2 (08:30→21:11)
[2019-02-23] MEDS: SENNOSIDES 8.6 MG TABLET GT SCH ×2 (09:00→21:14)
[2019-02-23] MEDS: LEVETIRACETAM SOL (5 ML) 100 MG/ML UDC GT SCH ×2 (09:00→21:14)
[2019-02-23] MEDS: SERTRALINE HCL 25 MG TABLET GT SCH (09:00)
[2019-02-23] MEDS: Z GUARD REMEDY 4 OZ OINT TP SCH ×2 (09:00→21:15)
[2019-02-23] MEDS: FOLIC ACID 1 MG TABLET GT SCH ×2 (09:00→17:02)
[2019-02-23] MEDS: HEPARIN SODIUM, PORCINE 5000 UNITS/1 ML VIAL SQ SCH ×2 (09:00→21:15)
[2019-02-23] MEDS: BACLOFEN (10 MG) 10 MG TABLET GT SCH ×3 (09:00→17:02)
[2019-02-23] MEDS: JEVITY 1.2 CAL 1,000 ML BOTTLE GT PRN (15:19)
[2019-02-23 20:40] VITALS: BP 106/58
[2019-02-23] MEDS: POLYETHYLENE GLYCOL 3350 17 GM POWD.PACK GT SCH (21:15)
[2019-02-24] MEDS: POLYVINYL ALCOHOL 15 ML BOTTLE EACHEYE SCH ×4 (00:36→17:01)
[2019-02-24] MEDS: ALBUTEROL FS 2.5 MG/3 ML VIAL.NEB NEB SCH ×4 (01:42→19:54)
[2019-02-24] MEDS: CHLORHEXIDINE GLUCONATE 15 ML UDC MM SCH ×2 (05:45→17:02)
[2019-02-24] MEDS: MYCOPHENOLATE MOFETIL SUSP 500 MG/2.5 ML UDC GT SCH ×2 (05:45→17:02)
[2019-02-24] MEDS: JEVITY 1.2 CAL 1,000 ML BOTTLE GT PRN (06:19)
[2019-02-24 07:31] VITALS: BP 108/76
[2019-02-24] MEDS: LEVETIRACETAM SOL (5 ML) 100 MG/ML UDC GT SCH ×2 (08:29→21:59)
[2019-02-24] MEDS: BACLOFEN (10 MG) 10 MG TABLET GT SCH ×3 (08:29→17:01)
[2019-02-24] MEDS: FOLIC ACID 1 MG TABLET GT SCH ×2 (08:29→17:01)
[2019-02-24] MEDS: SERTRALINE HCL 25 MG TABLET GT SCH (08:29)
[2019-02-24] MEDS: SENNOSIDES 8.6 MG TABLET GT SCH ×2 (08:29→21:59)
[2019-02-24] MEDS: Z GUARD REMEDY 4 OZ OINT TP SCH ×2 (08:30→21:00)
[2019-02-24] MEDS: HEPARIN SODIUM, PORCINE 5000 UNITS/1 ML VIAL SQ SCH ×2 (08:30→22:00)
[2019-02-24] MEDS: HYDROGEN PEROXIDE 480 ML BOTTLE TP SCH ×2 (09:00→21:00)
[2019-02-24 20:38] VITALS: BP 118/60
[2019-02-24] MEDS: POLYETHYLENE GLYCOL 3350 17 GM POWD.PACK GT SCH (22:00)
[2019-02-25] MEDS: POLYVINYL ALCOHOL 15 ML BOTTLE EACHEYE SCH ×4 (00:30→17:59)
[2019-02-25] MEDS: ALBUTEROL FS 2.5 MG/3 ML VIAL.NEB NEB SCH ×4 (00:47→20:22)
[2019-02-25] MEDS: JEVITY 1.2 CAL 1,000 ML BOTTLE GT PRN ×2 (04:07→18:26)
[2019-02-25] MEDS: MYCOPHENOLATE MOFETIL SUSP 500 MG/2.5 ML UDC GT SCH ×2 (05:27→17:59)
[2019-02-25] MEDS: CHLORHEXIDINE GLUCONATE 15 ML UDC MM SCH ×2 (05:27→17:59)
[2019-02-25 07:51] VITALS: BP 121/42
[2019-02-25] MEDS: SENNOSIDES 8.6 MG TABLET GT SCH ×2 (08:50→21:05)
[2019-02-25] MEDS: LEVETIRACETAM SOL (5 ML) 100 MG/ML UDC GT SCH ×2 (08:50→21:05)
[2019-02-25] MEDS: BACLOFEN (10 MG) 10 MG TABLET GT SCH ×3 (08:50→17:59)
[2019-02-25] MEDS: FOLIC ACID 1 MG TABLET GT SCH ×2 (08:50→17:59)
[2019-02-25] MEDS: SERTRALINE HCL 25 MG TABLET GT SCH (08:50)
[2019-02-25] MEDS: HEPARIN SODIUM, PORCINE 5000 UNITS/1 ML VIAL SQ SCH ×2 (08:51→21:06)
[2019-02-25] MEDS: Z GUARD REMEDY 4 OZ OINT TP SCH ×2 (08:51→21:06)
[2019-02-25] MEDS: HYDROGEN PEROXIDE 480 ML BOTTLE TP SCH ×2 (09:00→21:00)
[2019-02-25] MEDS: Z GUARD REMEDY 2 OZ OINT TP SCH ×2 (09:00→21:06)
--- NOTE | 2019-02-25 11:15 | NUR ---
Obtain an order from Dr. Aguilar for the third administration of Rituxan. Faxed order to [facility] and [facility] pharmacy. According to [facility] pharmacy, Rituxan is processed through specialty pharmacy. [facility] pharmacy initiated the process through [facility]. Order faxed to [facility]. Per [facility] pharmacy, medication will be delivered on 03/24/19. Endorsed.
[2019-02-25 20:25] VITALS: BP 141/65
[2019-02-25 20:28] VITALS: BP 113/68
[2019-02-25] MEDS: POLYETHYLENE GLYCOL 3350 17 GM POWD.PACK GT SCH (21:06)
[2019-02-26] MEDS: POLYVINYL ALCOHOL 15 ML BOTTLE EACHEYE SCH ×4 (00:11→17:19)
[2019-02-26] MEDS: ALBUTEROL FS 2.5 MG/3 ML VIAL.NEB NEB SCH ×4 (01:47→19:56)
[2019-02-26] MEDS: MYCOPHENOLATE MOFETIL SUSP 500 MG/2.5 ML UDC GT SCH ×2 (05:40→17:19)
[2019-02-26] MEDS: CHLORHEXIDINE GLUCONATE 15 ML UDC MM SCH ×2 (05:40→17:19)
[2019-02-26 08:12] VITALS: BP 108/55
[2019-02-26] MEDS: HYDROGEN PEROXIDE 480 ML BOTTLE TP SCH ×2 (09:00→21:06)
--- NOTE | 2019-02-26 09:00 | NUR ---
Dr. Swift, patient's father came to visit, informed him that patient is due for the third administration of Rituxan on April 01, 2019. Appreciated the information but he said that he will be out of the country for 4 week and to notify patient's daughter Lisa for any change of condition. Endorsed.
[2019-02-26] MEDS: Z GUARD REMEDY 2 OZ OINT TP SCH ×2 (09:52→21:08)
[2019-02-26] MEDS: FOLIC ACID 1 MG TABLET GT SCH ×2 (09:52→17:19)
[2019-02-26] MEDS: SERTRALINE HCL 25 MG TABLET GT SCH (09:52)
[2019-02-26] MEDS: BACLOFEN (10 MG) 10 MG TABLET GT SCH ×3 (09:52→17:19)
[2019-02-26] MEDS: Z GUARD REMEDY 4 OZ OINT TP SCH ×2 (09:52→21:08)
[2019-02-26] MEDS: LEVETIRACETAM SOL (5 ML) 100 MG/ML UDC GT SCH ×2 (09:52→21:07)
[2019-02-26] MEDS: HEPARIN SODIUM, PORCINE 5000 UNITS/1 ML VIAL SQ SCH ×2 (09:52→21:08)
[2019-02-26] MEDS: SENNOSIDES 8.6 MG TABLET GT SCH ×2 (09:52→21:07)
[2019-02-26] MEDS: JEVITY 1.2 CAL 1,000 ML BOTTLE GT PRN (12:54)
--- NOTE | 2019-02-26 15:42 | NUR ---
Seen and examined by Dr. Jeff OHARAO given. Made aware that Rituxan has been ordered and will be delivered on March 24, 2019. Patient is scheduled for Rituxan administration on 04/01/19
[2019-02-26 21:00] VITALS: BP 101/69
[2019-02-26] MEDS: POLYETHYLENE GLYCOL 3350 17 GM POWD.PACK GT SCH (21:08)
[2019-02-27] MEDS: POLYVINYL ALCOHOL 15 ML BOTTLE EACHEYE SCH ×5 (00:59→23:40)
[2019-02-27] MEDS: ALBUTEROL FS 2.5 MG/3 ML VIAL.NEB NEB SCH ×4 (02:04→20:01)
[2019-02-27] MEDS: CHLORHEXIDINE GLUCONATE 15 ML UDC MM SCH ×2 (05:27→17:28)
[2019-02-27] MEDS: MYCOPHENOLATE MOFETIL SUSP 500 MG/2.5 ML UDC GT SCH ×2 (05:27→17:28)
[2019-02-27 07:55] VITALS: BP 105/55
[2019-02-27] MEDS: HYDROGEN PEROXIDE 480 ML BOTTLE TP SCH ×2 (09:00→20:04)
[2019-02-27] MEDS: SENNOSIDES 8.6 MG TABLET GT SCH ×2 (09:43→20:03)
[2019-02-27] MEDS: BACLOFEN (10 MG) 10 MG TABLET GT SCH ×3 (09:43→17:28)
[2019-02-27] MEDS: SERTRALINE HCL 25 MG TABLET GT SCH (09:43)
[2019-02-27] MEDS: LEVETIRACETAM SOL (5 ML) 100 MG/ML UDC GT SCH ×2 (09:43→20:03)
[2019-02-27] MEDS: FOLIC ACID 1 MG TABLET GT SCH ×2 (09:43→17:28)
[2019-02-27] MEDS: Z GUARD REMEDY 2 OZ OINT TP SCH ×2 (09:44→20:04)
[2019-02-27] MEDS: Z GUARD REMEDY 4 OZ OINT TP SCH ×2 (09:44→20:04)
[2019-02-27] MEDS: HEPARIN SODIUM, PORCINE 5000 UNITS/1 ML VIAL SQ SCH ×2 (09:44→21:11)
[2019-02-27 20:26] VITALS: BP 120/74
[2019-02-27] MEDS: POLYETHYLENE GLYCOL 3350 17 GM POWD.PACK GT SCH (21:07)
[2019-02-27] MEDS: JEVITY 1.2 CAL 1,000 ML BOTTLE GT PRN (21:36)
[2019-02-28] MEDS: ALBUTEROL FS 2.5 MG/3 ML VIAL.NEB NEB SCH ×4 (01:45→19:30)
[2019-02-28] MEDS: MYCOPHENOLATE MOFETIL SUSP 500 MG/2.5 ML UDC GT SCH ×2 (05:57→17:44)
[2019-02-28] MEDS: POLYVINYL ALCOHOL 15 ML BOTTLE EACHEYE SCH ×3 (05:57→17:44)
[2019-02-28] MEDS: CHLORHEXIDINE GLUCONATE 15 ML UDC MM SCH ×2 (05:57→17:44)
[2019-02-28 07:50] VITALS: BP 110/71
[2019-02-28] MEDS: HYDROGEN PEROXIDE 480 ML BOTTLE TP SCH ×2 (09:00→20:33)
[2019-02-28] MEDS: SENNOSIDES 8.6 MG TABLET GT SCH ×2 (09:42→21:13)
[2019-02-28] MEDS: HEPARIN SODIUM, PORCINE 5000 UNITS/1 ML VIAL SQ SCH ×2 (09:42→21:14)
[2019-02-28] MEDS: SERTRALINE HCL 25 MG TABLET GT SCH (09:42)
[2019-02-28] MEDS: FOLIC ACID 1 MG TABLET GT SCH ×2 (09:42→17:44)
[2019-02-28] MEDS: Z GUARD REMEDY 4 OZ OINT TP SCH ×2 (09:42→21:14)
[2019-02-28] MEDS: BACLOFEN (10 MG) 10 MG TABLET GT SCH ×3 (09:42→17:44)
[2019-02-28] MEDS: Z GUARD REMEDY 2 OZ OINT TP SCH ×2 (09:42→21:14)
[2019-02-28] MEDS: LEVETIRACETAM SOL (5 ML) 100 MG/ML UDC GT SCH ×2 (09:42→21:12)
[2019-02-28] MEDS: JEVITY 1.2 CAL 1,000 ML BOTTLE GT PRN (17:44)
[2019-02-28 20:09] VITALS: BP 108/64
[2019-02-28] MEDS: POLYETHYLENE GLYCOL 3350 17 GM POWD.PACK GT SCH (21:14)
[2019-03-01] MEDS: POLYVINYL ALCOHOL 15 ML BOTTLE EACHEYE SCH ×4 (00:23→17:47)
[2019-03-01] MEDS: ALBUTEROL FS 2.5 MG/3 ML VIAL.NEB NEB SCH ×4 (02:26→20:05)
[2019-03-01] MEDS: CHLORHEXIDINE GLUCONATE 15 ML UDC MM SCH ×2 (05:17→17:47)
[2019-03-01] MEDS: MYCOPHENOLATE MOFETIL SUSP 500 MG/2.5 ML UDC GT SCH ×2 (05:17→17:47)
[2019-03-01 07:42] VITALS: BP 111/72
[2019-03-01] MEDS: HYDROGEN PEROXIDE 480 ML BOTTLE TP SCH ×2 (08:41→20:05)
[2019-03-01] MEDS: LEVETIRACETAM SOL (5 ML) 100 MG/ML UDC GT SCH ×2 (08:43→21:24)
[2019-03-01] MEDS: SERTRALINE HCL 25 MG TABLET GT SCH (08:43)
[2019-03-01] MEDS: FOLIC ACID 1 MG TABLET GT SCH ×2 (08:43→17:47)
[2019-03-01] MEDS: BACLOFEN (10 MG) 10 MG TABLET GT SCH ×3 (08:43→17:47)
[2019-03-01] MEDS: SENNOSIDES 8.6 MG TABLET GT SCH ×2 (08:43→21:24)
[2019-03-01] MEDS: HEPARIN SODIUM, PORCINE 5000 UNITS/1 ML VIAL SQ SCH ×2 (08:44→21:25)
[2019-03-01] MEDS: Z GUARD REMEDY 2 OZ OINT TP SCH ×2 (08:44→21:25)
[2019-03-01] MEDS: Z GUARD REMEDY 4 OZ OINT TP SCH ×2 (08:45→21:25)
[2019-03-01 20:14] VITALS: BP 110/63
[2019-03-01] MEDS: POLYETHYLENE GLYCOL 3350 17 GM POWD.PACK GT SCH (21:25)
[2019-03-02] MEDS: POLYVINYL ALCOHOL 15 ML BOTTLE EACHEYE SCH ×4 (00:09→18:03)
[2019-03-02] MEDS: ALBUTEROL FS 2.5 MG/3 ML VIAL.NEB NEB SCH ×4 (01:30→20:21)
[2019-03-02] MEDS: MYCOPHENOLATE MOFETIL SUSP 500 MG/2.5 ML UDC GT SCH ×2 (06:02→18:03)
[2019-03-02] MEDS: CHLORHEXIDINE GLUCONATE 15 ML UDC MM SCH ×2 (06:02→18:03)
[2019-03-02 07:47] VITALS: BP 101/70
[2019-03-02] MEDS: SERTRALINE HCL 25 MG TABLET GT SCH (08:56)
[2019-03-02] MEDS: BACLOFEN (10 MG) 10 MG TABLET GT SCH ×3 (08:56→17:00)
[2019-03-02] MEDS: LEVETIRACETAM SOL (5 ML) 100 MG/ML UDC GT SCH ×2 (08:56→20:48)
[2019-03-02] MEDS: HEPARIN SODIUM, PORCINE 5000 UNITS/1 ML VIAL SQ SCH ×2 (08:56→20:49)
[2019-03-02] MEDS: FOLIC ACID 1 MG TABLET GT SCH ×2 (08:56→17:00)
[2019-03-02] MEDS: SENNOSIDES 8.6 MG TABLET GT SCH ×2 (08:56→20:48)
[2019-03-02] MEDS: Z GUARD REMEDY 2 OZ OINT TP SCH ×2 (08:57→20:49)
[2019-03-02] MEDS: Z GUARD REMEDY 4 OZ OINT TP SCH ×2 (08:57→20:49)
[2019-03-02] MEDS: HYDROGEN PEROXIDE 480 ML BOTTLE TP SCH ×2 (09:00→20:21)
--- NOTE | 2019-03-02 13:00 | NUR ---
Seen and examined by Sugar Spangler, no new order given.
[2019-03-02] MEDS: JEVITY 1.2 CAL 1,000 ML BOTTLE GT PRN (13:12)
[2019-03-02 20:19] VITALS: BP 108/68
[2019-03-02] MEDS: POLYETHYLENE GLYCOL 3350 17 GM POWD.PACK GT SCH (21:43)
[2019-03-03] MEDS: POLYVINYL ALCOHOL 15 ML BOTTLE EACHEYE SCH ×5 (00:38→23:17)
[2019-03-03] MEDS: ALBUTEROL FS 2.5 MG/3 ML VIAL.NEB NEB SCH ×4 (01:34→20:24)
[2019-03-03] MEDS: CHLORHEXIDINE GLUCONATE 15 ML UDC MM SCH ×2 (05:49→17:38)
[2019-03-03] MEDS: JEVITY 1.2 CAL 1,000 ML BOTTLE GT PRN ×2 (05:49→21:27)
[2019-03-03] MEDS: MYCOPHENOLATE MOFETIL SUSP 500 MG/2.5 ML UDC GT SCH ×2 (05:49→17:38)
[2019-03-03 07:50] VITALS: BP 119/77
[2019-03-03] MEDS: FOLIC ACID 1 MG TABLET GT SCH ×2 (09:00→17:38)
[2019-03-03] MEDS: HYDROGEN PEROXIDE 480 ML BOTTLE TP SCH ×2 (09:00→20:25)
[2019-03-03] MEDS: Z GUARD REMEDY 4 OZ OINT TP SCH ×2 (09:00→20:45)
[2019-03-03] MEDS: BACLOFEN (10 MG) 10 MG TABLET GT SCH ×3 (09:00→17:38)
[2019-03-03] MEDS: HEPARIN SODIUM, PORCINE 5000 UNITS/1 ML VIAL SQ SCH ×2 (09:00→20:45)
[2019-03-03] MEDS: SERTRALINE HCL 25 MG TABLET GT SCH (09:00)
[2019-03-03] MEDS: Z GUARD REMEDY 2 OZ OINT TP SCH ×2 (09:00→20:45)
[2019-03-03] MEDS: LEVETIRACETAM SOL (5 ML) 100 MG/ML UDC GT SCH ×2 (09:00→20:44)
[2019-03-03] MEDS: SENNOSIDES 8.6 MG TABLET GT SCH ×2 (09:00→20:44)
--- NOTE | 2019-03-03 10:58 | NUR ---
Optometry: HILTON called Dr. Barragan office [TEL:[phone]] and spoke to Sunshine to schedule residents annual optometry appointment. Per Sunshine, the brake linings coater Dr. Millan is on vacation and will be back March 08. HILTON faxed pt.s facesheet to FAX: [phone] per Deon request. Per Sunshine, she will contact me with appointment date and time.
[2019-03-03 19:49] VITALS: BP 117/74
[2019-03-03] MEDS: POLYETHYLENE GLYCOL 3350 17 GM POWD.PACK GT SCH (21:06)
--- NOTE | 2019-03-03 21:16 | NUR ---
Seen and examined by Sugar LUCERO.
[2019-03-04] MEDS: ALBUTEROL FS 2.5 MG/3 ML VIAL.NEB NEB SCH ×4 (01:09→20:25)
[2019-03-04] MEDS: MYCOPHENOLATE MOFETIL SUSP 500 MG/2.5 ML UDC GT SCH ×2 (05:20→17:36)
[2019-03-04] MEDS: POLYVINYL ALCOHOL 15 ML BOTTLE EACHEYE SCH ×4 (05:20→23:43)
[2019-03-04] MEDS: CHLORHEXIDINE GLUCONATE 15 ML UDC MM SCH ×2 (05:20→17:36)
[2019-03-04 08:08] VITALS: BP 118/63
[2019-03-04] MEDS: HYDROGEN PEROXIDE 480 ML BOTTLE TP SCH ×2 (09:00→20:17)
[2019-03-04] MEDS: LEVETIRACETAM SOL (5 ML) 100 MG/ML UDC GT SCH ×2 (09:14→20:16)
[2019-03-04] MEDS: BACLOFEN (10 MG) 10 MG TABLET GT SCH ×3 (09:14→17:35)
[2019-03-04] MEDS: FOLIC ACID 1 MG TABLET GT SCH ×2 (09:14→17:35)
[2019-03-04] MEDS: SENNOSIDES 8.6 MG TABLET GT SCH ×2 (09:15→20:16)
[2019-03-04] MEDS: HEPARIN SODIUM, PORCINE 5000 UNITS/1 ML VIAL SQ SCH ×2 (09:15→20:17)
[2019-03-04] MEDS: SERTRALINE HCL 25 MG TABLET GT SCH (09:15)
[2019-03-04] MEDS: Z GUARD REMEDY 2 OZ OINT TP SCH ×2 (09:15→20:17)
[2019-03-04] MEDS: Z GUARD REMEDY 4 OZ OINT TP SCH ×2 (09:16→20:17)
[2019-03-04 20:35] VITALS: BP 109/61
[2019-03-04] MEDS: POLYETHYLENE GLYCOL 3350 17 GM POWD.PACK GT SCH (21:07)
[2019-03-05] MEDS: ALBUTEROL FS 2.5 MG/3 ML VIAL.NEB NEB SCH ×4 (02:23→20:11)
[2019-03-05] MEDS: MYCOPHENOLATE MOFETIL SUSP 500 MG/2.5 ML UDC GT SCH ×2 (05:07→18:47)
[2019-03-05] MEDS: POLYVINYL ALCOHOL 15 ML BOTTLE EACHEYE SCH ×4 (05:07→23:37)
[2019-03-05] MEDS: CHLORHEXIDINE GLUCONATE 15 ML UDC MM SCH ×2 (05:07→18:47)
[2019-03-05 07:41] VITALS: BP 130/74
[2019-03-05] MEDS: Z GUARD REMEDY 4 OZ OINT TP SCH ×2 (09:00→21:11)
[2019-03-05] MEDS: Z GUARD REMEDY 2 OZ OINT TP SCH ×2 (09:00→21:11)
[2019-03-05] MEDS: HYDROGEN PEROXIDE 480 ML BOTTLE TP SCH ×2 (09:00→20:11)
[2019-03-05] MEDS: LEVETIRACETAM SOL (5 ML) 100 MG/ML UDC GT SCH ×2 (09:59→21:09)
[2019-03-05] MEDS: SENNOSIDES 8.6 MG TABLET GT SCH ×2 (09:59→21:09)
[2019-03-05] MEDS: BACLOFEN (10 MG) 10 MG TABLET GT SCH ×3 (09:59→17:00)
[2019-03-05] MEDS: FOLIC ACID 1 MG TABLET GT SCH ×2 (09:59→17:00)
[2019-03-05] MEDS: SERTRALINE HCL 25 MG TABLET GT SCH (09:59)
[2019-03-05] MEDS: HEPARIN SODIUM, PORCINE 5000 UNITS/1 ML VIAL SQ SCH ×2 (10:00→21:10)
[2019-03-05] MEDS: JEVITY 1.2 CAL 1,000 ML BOTTLE GT PRN (18:47)
[2019-03-05 20:00] VITALS: BP 105/67
[2019-03-05] MEDS: POLYETHYLENE GLYCOL 3350 17 GM POWD.PACK GT SCH (21:11)
[2019-03-06] MEDS: ALBUTEROL FS 2.5 MG/3 ML VIAL.NEB NEB SCH ×4 (02:16→20:18)
[2019-03-06] MEDS: POLYVINYL ALCOHOL 15 ML BOTTLE EACHEYE SCH ×3 (05:13→18:02)
[2019-03-06] MEDS: MYCOPHENOLATE MOFETIL SUSP 500 MG/2.5 ML UDC GT SCH ×2 (05:13→18:02)
[2019-03-06] MEDS: CHLORHEXIDINE GLUCONATE 15 ML UDC MM SCH ×2 (05:13→18:02)
[2019-03-06 07:46] VITALS: BP 108/59
[2019-03-06] MEDS: HYDROGEN PEROXIDE 480 ML BOTTLE TP SCH ×2 (08:02→21:44)
[2019-03-06] MEDS: LEVETIRACETAM SOL (5 ML) 100 MG/ML UDC GT SCH ×2 (08:34→21:39)
[2019-03-06] MEDS: SENNOSIDES 8.6 MG TABLET GT SCH ×2 (08:34→21:39)
[2019-03-06] MEDS: BACLOFEN (10 MG) 10 MG TABLET GT SCH ×3 (08:34→16:44)
[2019-03-06] MEDS: SERTRALINE HCL 25 MG TABLET GT SCH (08:34)
[2019-03-06] MEDS: FOLIC ACID 1 MG TABLET GT SCH ×2 (08:34→16:44)
[2019-03-06] MEDS: Z GUARD REMEDY 2 OZ OINT TP SCH ×2 (08:35→21:44)
[2019-03-06] MEDS: Z GUARD REMEDY 4 OZ OINT TP SCH ×2 (08:35→21:44)
[2019-03-06] MEDS: HEPARIN SODIUM, PORCINE 5000 UNITS/1 ML VIAL SQ SCH ×2 (08:35→21:40)
[2019-03-06] MEDS: JEVITY 1.2 CAL 1,000 ML BOTTLE GT PRN (14:54)
[2019-03-06 19:49] VITALS: BP 119/81
[2019-03-06] MEDS: POLYETHYLENE GLYCOL 3350 17 GM POWD.PACK GT SCH (21:44)
[2019-03-07] MEDS: ALBUTEROL FS 2.5 MG/3 ML VIAL.NEB NEB SCH ×4 (01:30→20:19)
[2019-03-07] MEDS: POLYVINYL ALCOHOL 15 ML BOTTLE EACHEYE SCH ×5 (05:44→23:50)
[2019-03-07] MEDS: MYCOPHENOLATE MOFETIL SUSP 500 MG/2.5 ML UDC GT SCH ×2 (05:45→18:08)
[2019-03-07] MEDS: CHLORHEXIDINE GLUCONATE 15 ML UDC MM SCH ×2 (05:45→18:08)
[2019-03-07] MEDS: JEVITY 1.2 CAL 1,000 ML BOTTLE GT PRN ×2 (05:54→23:51)
[2019-03-07 07:37] VITALS: BP 119/66
[2019-03-07] MEDS: LEVETIRACETAM SOL (5 ML) 100 MG/ML UDC GT SCH ×2 (08:24→20:27)
[2019-03-07] MEDS: FOLIC ACID 1 MG TABLET GT SCH ×2 (08:24→16:39)
[2019-03-07] MEDS: BACLOFEN (10 MG) 10 MG TABLET GT SCH ×3 (08:24→16:39)
[2019-03-07] MEDS: SERTRALINE HCL 25 MG TABLET GT SCH (08:24)
[2019-03-07] MEDS: SENNOSIDES 8.6 MG TABLET GT SCH ×2 (08:24→20:27)
[2019-03-07] MEDS: HEPARIN SODIUM, PORCINE 5000 UNITS/1 ML VIAL SQ SCH ×2 (08:25→20:27)
[2019-03-07] MEDS: Z GUARD REMEDY 2 OZ OINT TP SCH ×2 (09:00→20:27)
[2019-03-07] MEDS: HYDROGEN PEROXIDE 480 ML BOTTLE TP SCH ×2 (09:00→20:19)
[2019-03-07] MEDS: Z GUARD REMEDY 4 OZ OINT TP SCH ×2 (09:00→20:27)
[2019-03-07 20:06] VITALS: BP 119/70
[2019-03-07] MEDS: POLYETHYLENE GLYCOL 3350 17 GM POWD.PACK GT SCH (22:21)
[2019-03-08] MEDS: ALBUTEROL FS 2.5 MG/3 ML VIAL.NEB NEB SCH ×4 (02:18→19:41)
[2019-03-08] MEDS: POLYVINYL ALCOHOL 15 ML BOTTLE EACHEYE SCH ×3 (05:26→18:07)
[2019-03-08] MEDS: MYCOPHENOLATE MOFETIL SUSP 500 MG/2.5 ML UDC GT SCH ×2 (05:26→18:07)
[2019-03-08] MEDS: CHLORHEXIDINE GLUCONATE 15 ML UDC MM SCH ×2 (05:26→18:07)
[2019-03-08 07:47] VITALS: BP 105/59
[2019-03-08] MEDS: SENNOSIDES 8.6 MG TABLET GT SCH ×2 (08:36→20:17)
[2019-03-08] MEDS: LEVETIRACETAM SOL (5 ML) 100 MG/ML UDC GT SCH ×2 (08:36→20:17)
[2019-03-08] MEDS: HEPARIN SODIUM, PORCINE 5000 UNITS/1 ML VIAL SQ SCH ×2 (08:36→20:19)
[2019-03-08] MEDS: SERTRALINE HCL 25 MG TABLET GT SCH (08:36)
[2019-03-08] MEDS: FOLIC ACID 1 MG TABLET GT SCH ×2 (08:36→16:59)
[2019-03-08] MEDS: BACLOFEN (10 MG) 10 MG TABLET GT SCH ×3 (08:36→16:59)
[2019-03-08] MEDS: Z GUARD REMEDY 2 OZ OINT TP SCH ×2 (09:00→20:19)
[2019-03-08] MEDS: HYDROGEN PEROXIDE 480 ML BOTTLE TP SCH ×2 (09:00→19:41)
[2019-03-08] MEDS: Z GUARD REMEDY 4 OZ OINT TP SCH ×2 (09:00→20:19)
[2019-03-08] MEDS: JEVITY 1.2 CAL 1,000 ML BOTTLE GT PRN (15:44)
[2019-03-08 20:12] VITALS: BP 116/69
[2019-03-08] MEDS: POLYETHYLENE GLYCOL 3350 17 GM POWD.PACK GT SCH (22:28)
[2019-03-09] MEDS: POLYVINYL ALCOHOL 15 ML BOTTLE EACHEYE SCH ×4 (00:47→18:38)
[2019-03-09] MEDS: ALBUTEROL FS 2.5 MG/3 ML VIAL.NEB NEB SCH ×4 (01:30→20:25)
[2019-03-09] MEDS: MYCOPHENOLATE MOFETIL SUSP 500 MG/2.5 ML UDC GT SCH ×2 (06:01→18:38)
[2019-03-09] MEDS: CHLORHEXIDINE GLUCONATE 15 ML UDC MM SCH ×2 (06:01→18:38)
[2019-03-09 08:02] VITALS: BP 111/53
[2019-03-09] MEDS: HEPARIN SODIUM, PORCINE 5000 UNITS/1 ML VIAL SQ SCH ×2 (09:00→20:23)
[2019-03-09] MEDS: SERTRALINE HCL 25 MG TABLET GT SCH (09:00)
[2019-03-09] MEDS: Z GUARD REMEDY 4 OZ OINT TP SCH ×2 (09:00→20:23)
[2019-03-09] MEDS: LEVETIRACETAM SOL (5 ML) 100 MG/ML UDC GT SCH ×2 (09:00→20:22)
[2019-03-09] MEDS: SENNOSIDES 8.6 MG TABLET GT SCH ×2 (09:00→20:22)
[2019-03-09] MEDS: Z GUARD REMEDY 2 OZ OINT TP SCH ×2 (09:00→20:23)
[2019-03-09] MEDS: FOLIC ACID 1 MG TABLET GT SCH ×2 (09:00→17:00)
[2019-03-09] MEDS: HYDROGEN PEROXIDE 480 ML BOTTLE TP SCH ×2 (09:00→20:25)
[2019-03-09] MEDS: BACLOFEN (10 MG) 10 MG TABLET GT SCH ×3 (09:00→17:00)
[2019-03-09] MEDS: JEVITY 1.2 CAL 1,000 ML BOTTLE GT PRN (19:13)
[2019-03-09 19:49] VITALS: BP 129/65
[2019-03-09] MEDS: POLYETHYLENE GLYCOL 3350 17 GM POWD.PACK GT SCH (22:46)
[2019-03-10] MEDS: POLYVINYL ALCOHOL 15 ML BOTTLE EACHEYE SCH ×4 (00:31→17:17)
[2019-03-10] MEDS: ALBUTEROL FS 2.5 MG/3 ML VIAL.NEB NEB SCH ×4 (02:11→19:50)
[2019-03-10] MEDS: CHLORHEXIDINE GLUCONATE 15 ML UDC MM SCH ×2 (05:28→17:17)
[2019-03-10] MEDS: MYCOPHENOLATE MOFETIL SUSP 500 MG/2.5 ML UDC GT SCH ×2 (05:28→17:17)
[2019-03-10 08:02] VITALS: BP 127/53
[2019-03-10] MEDS: Z GUARD REMEDY 4 OZ OINT TP SCH ×2 (09:00→20:39)
[2019-03-10] MEDS: Z GUARD REMEDY 2 OZ OINT TP SCH ×2 (09:00→20:39)
[2019-03-10] MEDS: HYDROGEN PEROXIDE 480 ML BOTTLE TP SCH ×2 (09:00→19:50)
[2019-03-10] MEDS: BACLOFEN (10 MG) 10 MG TABLET GT SCH ×3 (09:00→17:17)
[2019-03-10] MEDS: SENNOSIDES 8.6 MG TABLET GT SCH ×2 (09:00→20:39)
[2019-03-10] MEDS: SERTRALINE HCL 25 MG TABLET GT SCH (09:00)
[2019-03-10] MEDS: FOLIC ACID 1 MG TABLET GT SCH ×2 (09:00→17:17)
[2019-03-10] MEDS: HEPARIN SODIUM, PORCINE 5000 UNITS/1 ML VIAL SQ SCH ×2 (09:00→20:39)
[2019-03-10] MEDS: LEVETIRACETAM SOL (5 ML) 100 MG/ML UDC GT SCH ×2 (09:00→20:39)
[2019-03-10 20:37] VITALS: BP 138/68
[2019-03-10] MEDS: POLYETHYLENE GLYCOL 3350 17 GM POWD.PACK GT SCH (21:03)
[2019-03-11] MEDS: POLYVINYL ALCOHOL 15 ML BOTTLE EACHEYE SCH ×5 (00:01→23:10)
[2019-03-11] MEDS: JEVITY 1.2 CAL 1,000 ML BOTTLE GT PRN ×3 (00:02→17:17)
[2019-03-11] MEDS: ALBUTEROL FS 2.5 MG/3 ML VIAL.NEB NEB SCH ×4 (02:04→20:00)
[2019-03-11] MEDS: CHLORHEXIDINE GLUCONATE 15 ML UDC MM SCH ×2 (05:11→17:12)
[2019-03-11] MEDS: MYCOPHENOLATE MOFETIL SUSP 500 MG/2.5 ML UDC GT SCH ×2 (05:11→17:12)
[2019-03-11 08:10] VITALS: BP 113/55
[2019-03-11] MEDS: HYDROGEN PEROXIDE 480 ML BOTTLE TP SCH ×2 (08:30→21:13)
[2019-03-11] MEDS: HEPARIN SODIUM, PORCINE 5000 UNITS/1 ML VIAL SQ SCH ×2 (09:00→21:25)
[2019-03-11] MEDS: LEVETIRACETAM SOL (5 ML) 100 MG/ML UDC GT SCH ×2 (09:00→21:13)
[2019-03-11] MEDS: SENNOSIDES 8.6 MG TABLET GT SCH ×2 (09:00→21:13)
[2019-03-11] MEDS: SERTRALINE HCL 25 MG TABLET GT SCH (09:00)
[2019-03-11] MEDS: Z GUARD REMEDY 4 OZ OINT TP SCH ×2 (09:00→21:13)
[2019-03-11] MEDS: BACLOFEN (10 MG) 10 MG TABLET GT SCH ×3 (09:00→17:12)
[2019-03-11] MEDS: FOLIC ACID 1 MG TABLET GT SCH ×2 (09:00→17:12)
--- NOTE | 2019-03-11 16:26 | NUR ---
Patient was seen by Dr. Millan today for annual optometry appointment. SW notified the patients daughter Lisa Tellez [phone] and she expressed understanding and contentment.
[2019-03-11 20:00] VITALS: BP 104/68
[2019-03-11 20:01] VITALS: BP 104/68
[2019-03-11] MEDS: POLYETHYLENE GLYCOL 3350 17 GM POWD.PACK GT SCH (21:13)
[2019-03-12] MEDS: ALBUTEROL FS 2.5 MG/3 ML VIAL.NEB NEB SCH ×4 (01:33→20:24)
[2019-03-12] MEDS: CHLORHEXIDINE GLUCONATE 15 ML UDC MM SCH ×2 (05:05→17:52)
[2019-03-12] MEDS: MYCOPHENOLATE MOFETIL SUSP 500 MG/2.5 ML UDC GT SCH ×2 (05:05→17:52)
[2019-03-12] MEDS: POLYVINYL ALCOHOL 15 ML BOTTLE EACHEYE SCH ×4 (05:05→23:13)
[2019-03-12 07:43] VITALS: BP 121/69
[2019-03-12] MEDS: Z GUARD REMEDY 4 OZ OINT TP SCH ×2 (09:00→20:17)
[2019-03-12] MEDS: HYDROGEN PEROXIDE 480 ML BOTTLE TP SCH ×2 (09:00→20:17)
[2019-03-12] MEDS: BACLOFEN (10 MG) 10 MG TABLET GT SCH ×3 (09:51→17:18)
[2019-03-12] MEDS: LEVETIRACETAM SOL (5 ML) 100 MG/ML UDC GT SCH ×2 (09:51→20:14)
[2019-03-12] MEDS: FOLIC ACID 1 MG TABLET GT SCH ×2 (09:51→17:18)
[2019-03-12] MEDS: SERTRALINE HCL 25 MG TABLET GT SCH (09:52)
[2019-03-12] MEDS: SENNOSIDES 8.6 MG TABLET GT SCH ×2 (09:52→20:14)
[2019-03-12] MEDS: HEPARIN SODIUM, PORCINE 5000 UNITS/1 ML VIAL SQ SCH ×2 (09:54→20:17)
[2019-03-12] MEDS: JEVITY 1.2 CAL 1,000 ML BOTTLE GT PRN (12:30)
[2019-03-12 20:29] VITALS: BP 109/73
[2019-03-12] MEDS: POLYETHYLENE GLYCOL 3350 17 GM POWD.PACK GT SCH (21:05)
[2019-03-13] MEDS: ALBUTEROL FS 2.5 MG/3 ML VIAL.NEB NEB SCH ×4 (01:43→19:22)
[2019-03-13] MEDS: CHLORHEXIDINE GLUCONATE 15 ML UDC MM SCH ×2 (05:18→17:24)
[2019-03-13] MEDS: POLYVINYL ALCOHOL 15 ML BOTTLE EACHEYE SCH ×3 (05:18→17:24)
[2019-03-13] MEDS: JEVITY 1.2 CAL 1,000 ML BOTTLE GT PRN (05:18)
[2019-03-13] MEDS: MYCOPHENOLATE MOFETIL SUSP 500 MG/2.5 ML UDC GT SCH ×2 (05:18→17:24)
[2019-03-13 08:00] VITALS: BP 123/71
[2019-03-13] MEDS: HYDROGEN PEROXIDE 480 ML BOTTLE TP SCH ×2 (09:00→21:20)
[2019-03-13] MEDS: HEPARIN SODIUM, PORCINE 5000 UNITS/1 ML VIAL SQ SCH ×2 (09:48→21:20)
[2019-03-13] MEDS: Z GUARD REMEDY 4 OZ OINT TP SCH ×2 (09:48→21:20)
[2019-03-13] MEDS: FOLIC ACID 1 MG TABLET GT SCH ×2 (09:48→16:38)
[2019-03-13] MEDS: BACLOFEN (10 MG) 10 MG TABLET GT SCH ×3 (09:48→16:38)
[2019-03-13] MEDS: SERTRALINE HCL 25 MG TABLET GT SCH (09:48)
[2019-03-13] MEDS: SENNOSIDES 8.6 MG TABLET GT SCH ×2 (09:48→21:19)
[2019-03-13] MEDS: LEVETIRACETAM SOL (5 ML) 100 MG/ML UDC GT SCH ×2 (09:48→21:19)
[2019-03-13 20:52] VITALS: BP 109/60
[2019-03-13] MEDS: POLYETHYLENE GLYCOL 3350 17 GM POWD.PACK GT SCH (21:20)
[2019-03-14] MEDS: ALBUTEROL FS 2.5 MG/3 ML VIAL.NEB NEB SCH ×4 (00:31→19:49)
[2019-03-14] MEDS: POLYVINYL ALCOHOL 15 ML BOTTLE EACHEYE SCH ×4 (06:16→17:10)
[2019-03-14] MEDS: MYCOPHENOLATE MOFETIL SUSP 500 MG/2.5 ML UDC GT SCH ×2 (06:17→17:10)
[2019-03-14] MEDS: CHLORHEXIDINE GLUCONATE 15 ML UDC MM SCH ×2 (06:17→17:11)
[2019-03-14] MEDS: SENNOSIDES 8.6 MG TABLET GT SCH ×2 (08:43→21:01)
[2019-03-14] MEDS: HEPARIN SODIUM, PORCINE 5000 UNITS/1 ML VIAL SQ SCH ×2 (08:43→21:02)
[2019-03-14] MEDS: LEVETIRACETAM SOL (5 ML) 100 MG/ML UDC GT SCH ×2 (08:43→21:00)
[2019-03-14] MEDS: SERTRALINE HCL 25 MG TABLET GT SCH (08:43)
[2019-03-14] MEDS: FOLIC ACID 1 MG TABLET GT SCH ×2 (08:43→17:10)
[2019-03-14] MEDS: BACLOFEN (10 MG) 10 MG TABLET GT SCH ×3 (08:43→17:10)
[2019-03-14] MEDS: Z GUARD REMEDY 4 OZ OINT TP SCH ×2 (09:00→21:03)
[2019-03-14] MEDS: HYDROGEN PEROXIDE 480 ML BOTTLE TP SCH ×2 (09:00→21:00)
[2019-03-14] MEDS: JEVITY 1.2 CAL 1,000 ML BOTTLE GT PRN (14:53)
[2019-03-14 18:39] VITALS: BP 115/56
[2019-03-14 19:54] VITALS: BP 124/71
[2019-03-14] MEDS: POLYETHYLENE GLYCOL 3350 17 GM POWD.PACK GT SCH (21:05)
[2019-03-15] MEDS: POLYVINYL ALCOHOL 15 ML BOTTLE EACHEYE SCH ×4 (00:37→17:25)
[2019-03-15] MEDS: ALBUTEROL FS 2.5 MG/3 ML VIAL.NEB NEB SCH ×4 (01:22→20:26)
[2019-03-15] MEDS: CHLORHEXIDINE GLUCONATE 15 ML UDC MM SCH ×2 (06:35→17:25)
[2019-03-15] MEDS: MYCOPHENOLATE MOFETIL SUSP 500 MG/2.5 ML UDC GT SCH ×2 (06:35→17:25)
[2019-03-15] MEDS: JEVITY 1.2 CAL 1,000 ML BOTTLE GT PRN (06:36)
[2019-03-15 08:10] VITALS: BP 97/72
[2019-03-15] MEDS: Z GUARD REMEDY 4 OZ OINT TP SCH ×2 (09:00→20:18)
[2019-03-15] MEDS: HYDROGEN PEROXIDE 480 ML BOTTLE TP SCH ×2 (09:00→21:27)
[2019-03-15] MEDS: SERTRALINE HCL 25 MG TABLET GT SCH (09:54)
[2019-03-15] MEDS: SENNOSIDES 8.6 MG TABLET GT SCH ×2 (09:54→20:18)
[2019-03-15] MEDS: BACLOFEN (10 MG) 10 MG TABLET GT SCH ×3 (09:54→17:28)
[2019-03-15] MEDS: LEVETIRACETAM SOL (5 ML) 100 MG/ML UDC GT SCH ×2 (09:54→20:18)
[2019-03-15] MEDS: FOLIC ACID 1 MG TABLET GT SCH ×2 (09:54→17:25)
[2019-03-15] MEDS: HEPARIN SODIUM, PORCINE 5000 UNITS/1 ML VIAL SQ SCH ×2 (09:56→20:18)
[2019-03-15 20:01] VITALS: BP 119/69
[2019-03-15] MEDS: POLYETHYLENE GLYCOL 3350 17 GM POWD.PACK GT SCH (22:10)
[2019-03-16] MEDS: JEVITY 1.2 CAL 1,000 ML BOTTLE GT PRN (00:17)
[2019-03-16] MEDS: POLYVINYL ALCOHOL 15 ML BOTTLE EACHEYE SCH ×4 (00:17→17:18)
[2019-03-16] MEDS: ALBUTEROL FS 2.5 MG/3 ML VIAL.NEB NEB SCH ×4 (01:22→20:19)
[2019-03-16] MEDS: MYCOPHENOLATE MOFETIL SUSP 500 MG/2.5 ML UDC GT SCH ×2 (05:25→17:18)
[2019-03-16] MEDS: CHLORHEXIDINE GLUCONATE 15 ML UDC MM SCH ×2 (05:26→17:18)
[2019-03-16 07:39] VITALS: BP 118/73
[2019-03-16] MEDS: HYDROGEN PEROXIDE 480 ML BOTTLE TP SCH ×2 (09:11→20:32)
[2019-03-16] MEDS: BACLOFEN (10 MG) 10 MG TABLET GT SCH ×3 (09:48→17:18)
[2019-03-16] MEDS: SERTRALINE HCL 25 MG TABLET GT SCH (09:48)
[2019-03-16] MEDS: LEVETIRACETAM SOL (5 ML) 100 MG/ML UDC GT SCH ×2 (09:48→20:34)
[2019-03-16] MEDS: FOLIC ACID 1 MG TABLET GT SCH ×2 (09:48→17:18)
[2019-03-16] MEDS: SENNOSIDES 8.6 MG TABLET GT SCH ×2 (09:48→20:34)
[2019-03-16] MEDS: HEPARIN SODIUM, PORCINE 5000 UNITS/1 ML VIAL SQ SCH ×2 (09:49→20:35)
[2019-03-16] MEDS: Z GUARD REMEDY 4 OZ OINT TP SCH ×2 (09:49→20:35)
[2019-03-16 20:06] VITALS: BP 114/64
[2019-03-16] MEDS: POLYETHYLENE GLYCOL 3350 17 GM POWD.PACK GT SCH (22:15)
[2019-03-17] MEDS: POLYVINYL ALCOHOL 15 ML BOTTLE EACHEYE SCH ×4 (00:36→17:23)
[2019-03-17] MEDS: ALBUTEROL FS 2.5 MG/3 ML VIAL.NEB NEB SCH ×4 (00:57→20:20)
[2019-03-17] MEDS: MYCOPHENOLATE MOFETIL SUSP 500 MG/2.5 ML UDC GT SCH ×2 (05:57→17:24)
[2019-03-17] MEDS: CHLORHEXIDINE GLUCONATE 15 ML UDC MM SCH ×2 (05:57→17:24)
[2019-03-17 07:39] VITALS: BP 148/86
[2019-03-17] MEDS: SENNOSIDES 8.6 MG TABLET GT SCH ×2 (09:00→21:59)
[2019-03-17] MEDS: HYDROGEN PEROXIDE 480 ML BOTTLE TP SCH ×2 (09:00→20:20)
[2019-03-17] MEDS: BACLOFEN (10 MG) 10 MG TABLET GT SCH ×3 (09:00→17:23)
[2019-03-17] MEDS: Z GUARD REMEDY 4 OZ OINT TP SCH ×2 (09:00→21:00)
[2019-03-17] MEDS: LEVETIRACETAM SOL (5 ML) 100 MG/ML UDC GT SCH ×2 (09:00→21:59)
[2019-03-17] MEDS: HEPARIN SODIUM, PORCINE 5000 UNITS/1 ML VIAL SQ SCH ×2 (09:00→22:00)
[2019-03-17] MEDS: SERTRALINE HCL 25 MG TABLET GT SCH (09:00)
[2019-03-17] MEDS: FOLIC ACID 1 MG TABLET GT SCH ×2 (09:00→17:23)
[2019-03-17] MEDS: JEVITY 1.2 CAL 1,000 ML BOTTLE GT PRN (12:54)
[2019-03-17 20:01] VITALS: BP 114/65
[2019-03-17] MEDS: POLYETHYLENE GLYCOL 3350 17 GM POWD.PACK GT SCH (22:00)
[2019-03-18] MEDS: POLYVINYL ALCOHOL 15 ML BOTTLE EACHEYE SCH ×4 (00:49→18:01)
[2019-03-18] MEDS: ALBUTEROL FS 2.5 MG/3 ML VIAL.NEB NEB SCH ×4 (02:15→19:55)
[2019-03-18] MEDS: MYCOPHENOLATE MOFETIL SUSP 500 MG/2.5 ML UDC GT SCH ×2 (05:24→18:01)
[2019-03-18] MEDS: CHLORHEXIDINE GLUCONATE 15 ML UDC MM SCH ×2 (05:24→18:01)
[2019-03-18] MEDS: HYDROGEN PEROXIDE 480 ML BOTTLE TP SCH ×2 (08:09→21:00)
[2019-03-18 08:14] VITALS: BP 106/48
[2019-03-18] MEDS: SERTRALINE HCL 25 MG TABLET GT SCH (08:35)
[2019-03-18] MEDS: BACLOFEN (10 MG) 10 MG TABLET GT SCH ×3 (08:35→17:00)
[2019-03-18] MEDS: SENNOSIDES 8.6 MG TABLET GT SCH ×2 (08:35→21:00)
[2019-03-18] MEDS: FOLIC ACID 1 MG TABLET GT SCH ×2 (08:35→17:00)
[2019-03-18] MEDS: LEVETIRACETAM SOL (5 ML) 100 MG/ML UDC GT SCH ×2 (08:35→21:00)
[2019-03-18] MEDS: Z GUARD REMEDY 4 OZ OINT TP SCH ×2 (08:36→21:00)
[2019-03-18] MEDS: HEPARIN SODIUM, PORCINE 5000 UNITS/1 ML VIAL SQ SCH ×2 (08:36→21:00)
--- NOTE | 2019-03-18 09:30 | NUR ---
Seen and examined by Dr. Aguilar no new order given.
--- NOTE | 2019-03-18 09:45 | NUR ---
RT WAS CALLED TO PATIENTS ROOM FOR TRACH BEING DISLODGED DURING MORNING CLEANING. UPON ARRIVAL PATIENT WAS NOT IN ANY DISTRESS, PINK IN COLOR AND WARM TO TOUCH. BACK UP TRACH WAS OPENED AND INSERTED WITH MINIMAL EFFORT. PATIENT TOLERATED TRACH INSERTION WELL WITH MINIMAL AMT OF BLEEDING. PATIENT AIRWAY SUCTIONED AND PATENT. [facility]EN[facility] CALLED FOR BACK UP TRACH REPLACEMENT.
[2019-03-18 20:22] VITALS: BP 113/71
[2019-03-18] MEDS: POLYETHYLENE GLYCOL 3350 17 GM POWD.PACK GT SCH (22:39)
[2019-03-18] MEDS: JEVITY 1.2 CAL 1,000 ML BOTTLE GT PRN (23:39)
[2019-03-19] MEDS: ALBUTEROL FS 2.5 MG/3 ML VIAL.NEB NEB SCH ×4 (01:54→19:50)
[2019-03-19] MEDS: POLYVINYL ALCOHOL 15 ML BOTTLE EACHEYE SCH ×4 (06:50→17:16)
[2019-03-19] MEDS: CHLORHEXIDINE GLUCONATE 15 ML UDC MM SCH ×2 (06:51→17:22)
[2019-03-19] MEDS: MYCOPHENOLATE MOFETIL SUSP 500 MG/2.5 ML UDC GT SCH ×2 (06:51→17:22)
[2019-03-19 07:43] VITALS: BP 103/66
[2019-03-19] MEDS: SERTRALINE HCL 25 MG TABLET GT SCH (08:49)
[2019-03-19] MEDS: BACLOFEN (10 MG) 10 MG TABLET GT SCH ×3 (08:49→17:16)
[2019-03-19] MEDS: SENNOSIDES 8.6 MG TABLET GT SCH ×2 (08:49→20:04)
[2019-03-19] MEDS: FOLIC ACID 1 MG TABLET GT SCH ×2 (08:49→17:16)
[2019-03-19] MEDS: LEVETIRACETAM SOL (5 ML) 100 MG/ML UDC GT SCH ×2 (08:49→20:04)
[2019-03-19] MEDS: HYDROGEN PEROXIDE 480 ML BOTTLE TP SCH ×2 (09:00→20:04)
[2019-03-19] MEDS: Z GUARD REMEDY 4 OZ OINT TP SCH ×2 (09:00→20:04)
[2019-03-19] MEDS: HEPARIN SODIUM, PORCINE 5000 UNITS/1 ML VIAL SQ SCH ×2 (09:00→21:44)
[2019-03-19] MEDS: JEVITY 1.2 CAL 1,000 ML BOTTLE GT PRN (18:03)
[2019-03-19 20:01] VITALS: BP 102/61
[2019-03-19] MEDS: POLYETHYLENE GLYCOL 3350 17 GM POWD.PACK GT SCH (21:31)
[2019-03-20] MEDS: POLYVINYL ALCOHOL 15 ML BOTTLE EACHEYE SCH ×4 (00:02→17:07)
[2019-03-20] MEDS: ALBUTEROL FS 2.5 MG/3 ML VIAL.NEB NEB SCH ×4 (01:28→19:38)
[2019-03-20] MEDS: CHLORHEXIDINE GLUCONATE 15 ML UDC MM SCH ×2 (05:04→17:07)
[2019-03-20] MEDS: MYCOPHENOLATE MOFETIL SUSP 500 MG/2.5 ML UDC GT SCH ×2 (05:04→17:07)
[2019-03-20 08:07] VITALS: BP 142/56
[2019-03-20] MEDS: HYDROGEN PEROXIDE 480 ML BOTTLE TP SCH ×2 (09:00→21:00)
[2019-03-20] MEDS: SERTRALINE HCL 25 MG TABLET GT SCH (09:01)
[2019-03-20] MEDS: HEPARIN SODIUM, PORCINE 5000 UNITS/1 ML VIAL SQ SCH ×2 (09:01→20:18)
[2019-03-20] MEDS: LEVETIRACETAM SOL (5 ML) 100 MG/ML UDC GT SCH ×2 (09:01→20:17)
[2019-03-20] MEDS: SENNOSIDES 8.6 MG TABLET GT SCH ×2 (09:01→20:17)
[2019-03-20] MEDS: BACLOFEN (10 MG) 10 MG TABLET GT SCH ×3 (09:01→16:12)
[2019-03-20] MEDS: FOLIC ACID 1 MG TABLET GT SCH ×2 (09:01→16:12)
[2019-03-20] MEDS: Z GUARD REMEDY 4 OZ OINT TP SCH ×2 (09:02→20:19)
[2019-03-20] MEDS: JEVITY 1.2 CAL 1,000 ML BOTTLE GT PRN (12:42)
[2019-03-20 20:27] VITALS: BP 98/59
[2019-03-20] MEDS: POLYETHYLENE GLYCOL 3350 17 GM POWD.PACK GT SCH (21:27)
[2019-03-21] MEDS: POLYVINYL ALCOHOL 15 ML BOTTLE EACHEYE SCH ×4 (00:11→17:38)
[2019-03-21] MEDS: ALBUTEROL FS 2.5 MG/3 ML VIAL.NEB NEB SCH ×4 (00:39→19:50)
[2019-03-21] MEDS: JEVITY 1.2 CAL 1,000 ML BOTTLE GT PRN (05:12)
[2019-03-21] MEDS: CHLORHEXIDINE GLUCONATE 15 ML UDC MM SCH ×2 (05:12→17:38)
[2019-03-21] MEDS: MYCOPHENOLATE MOFETIL SUSP 500 MG/2.5 ML UDC GT SCH ×2 (05:12→17:38)
[2019-03-21 08:04] VITALS: BP 125/76
[2019-03-21] MEDS: LEVETIRACETAM SOL (5 ML) 100 MG/ML UDC GT SCH ×2 (08:21→21:24)
[2019-03-21] MEDS: SERTRALINE HCL 25 MG TABLET GT SCH (08:21)
[2019-03-21] MEDS: SENNOSIDES 8.6 MG TABLET GT SCH ×2 (08:21→21:24)
[2019-03-21] MEDS: BACLOFEN (10 MG) 10 MG TABLET GT SCH ×3 (08:21→16:51)
[2019-03-21] MEDS: FOLIC ACID 1 MG TABLET GT SCH ×2 (08:21→16:51)
[2019-03-21] MEDS: HYDROGEN PEROXIDE 480 ML BOTTLE TP SCH ×2 (08:25→21:25)
[2019-03-21] MEDS: HEPARIN SODIUM, PORCINE 5000 UNITS/1 ML VIAL SQ SCH ×2 (08:28→21:25)
[2019-03-21] MEDS: Z GUARD REMEDY 4 OZ OINT TP SCH ×2 (09:00→21:25)
[2019-03-21 20:22] VITALS: BP 123/71
[2019-03-21] MEDS: POLYETHYLENE GLYCOL 3350 17 GM POWD.PACK GT SCH (21:25)
[2019-03-22] MEDS: POLYVINYL ALCOHOL 15 ML BOTTLE EACHEYE SCH ×4 (00:06→18:13)
[2019-03-22] MEDS: ALBUTEROL FS 2.5 MG/3 ML VIAL.NEB NEB SCH ×4 (00:59→20:08)
[2019-03-22] MEDS: CHLORHEXIDINE GLUCONATE 15 ML UDC MM SCH ×2 (05:02→18:13)
[2019-03-22] MEDS: MYCOPHENOLATE MOFETIL SUSP 500 MG/2.5 ML UDC GT SCH ×2 (05:02→18:13)
[2019-03-22 07:48] VITALS: BP 108/59
[2019-03-22] MEDS: FOLIC ACID 1 MG TABLET GT SCH ×2 (08:50→16:49)
[2019-03-22] MEDS: SERTRALINE HCL 25 MG TABLET GT SCH (08:50)
[2019-03-22] MEDS: LEVETIRACETAM SOL (5 ML) 100 MG/ML UDC GT SCH ×2 (08:50→20:41)
[2019-03-22] MEDS: BACLOFEN (10 MG) 10 MG TABLET GT SCH ×3 (08:50→16:49)
[2019-03-22] MEDS: HEPARIN SODIUM, PORCINE 5000 UNITS/1 ML VIAL SQ SCH ×2 (08:50→20:41)
[2019-03-22] MEDS: SENNOSIDES 8.6 MG TABLET GT SCH ×2 (08:50→20:41)
[2019-03-22] MEDS: HYDROGEN PEROXIDE 480 ML BOTTLE TP SCH ×2 (09:00→20:08)
[2019-03-22] MEDS: Z GUARD REMEDY 4 OZ OINT TP SCH ×2 (09:00→20:41)
--- NOTE | 2019-03-22 15:47 | NUR ---
HILTON reminded the patient's daughter, Lisa Tellez [phone]. Per Lisa, she will be in attendance.
--- NOTE | 2019-03-22 19:16 | NUR ---
SEEN AND EXAMINED BY HA BELL. AUTOMATIC MACHINE ATTENDANT IS MADE AWARE OF CURRENT WEIGHT. HA GOLL WITH NO NEW ORDERS.
[2019-03-22 19:53] VITALS: BP 113/70
[2019-03-22] MEDS: POLYETHYLENE GLYCOL 3350 17 GM POWD.PACK GT SCH (21:34)
[2019-03-22] MEDS: JEVITY 1.2 CAL 1,000 ML BOTTLE GT PRN (23:45)
[2019-03-23] MEDS: POLYVINYL ALCOHOL 15 ML BOTTLE EACHEYE SCH ×5 (00:16→23:32)
[2019-03-23] MEDS: ALBUTEROL FS 2.5 MG/3 ML VIAL.NEB NEB SCH ×4 (01:06→20:21)
[2019-03-23] MEDS: MYCOPHENOLATE MOFETIL SUSP 500 MG/2.5 ML UDC GT SCH ×2 (05:27→18:06)
[2019-03-23] MEDS: CHLORHEXIDINE GLUCONATE 15 ML UDC MM SCH ×2 (05:28→18:06)
[2019-03-23 08:00] VITALS: BP 112/71
[2019-03-23] MEDS: FOLIC ACID 1 MG TABLET GT SCH ×2 (08:20→16:35)
[2019-03-23] MEDS: BACLOFEN (10 MG) 10 MG TABLET GT SCH ×3 (08:20→16:35)
[2019-03-23] MEDS: SENNOSIDES 8.6 MG TABLET GT SCH ×2 (08:20→21:32)
[2019-03-23] MEDS: SERTRALINE HCL 25 MG TABLET GT SCH (08:20)
[2019-03-23] MEDS: LEVETIRACETAM SOL (5 ML) 100 MG/ML UDC GT SCH ×2 (08:20→21:32)
[2019-03-23] MEDS: HEPARIN SODIUM, PORCINE 5000 UNITS/1 ML VIAL SQ SCH ×2 (08:22→21:33)
[2019-03-23] MEDS: Z GUARD REMEDY 4 OZ OINT TP SCH ×2 (08:22→21:33)
[2019-03-23] MEDS: HYDROGEN PEROXIDE 480 ML BOTTLE TP SCH ×2 (09:00→21:33)
[2019-03-23] MEDS: JEVITY 1.2 CAL 1,000 ML BOTTLE GT PRN (16:36)
[2019-03-23 20:04] VITALS: BP 114/59
[2019-03-23] MEDS: POLYETHYLENE GLYCOL 3350 17 GM POWD.PACK GT SCH (21:33)
[2019-03-24] MEDS: ALBUTEROL FS 2.5 MG/3 ML VIAL.NEB NEB SCH ×4 (02:40→20:05)
[2019-03-24] MEDS: POLYVINYL ALCOHOL 15 ML BOTTLE EACHEYE SCH ×3 (05:25→17:04)
[2019-03-24] MEDS: CHLORHEXIDINE GLUCONATE 15 ML UDC MM SCH ×2 (05:25→17:04)
[2019-03-24] MEDS: MYCOPHENOLATE MOFETIL SUSP 500 MG/2.5 ML UDC GT SCH ×2 (05:25→17:04)
[2019-03-24 07:40] VITALS: BP 104/52
[2019-03-24] MEDS: SERTRALINE HCL 25 MG TABLET GT SCH (08:08)
[2019-03-24] MEDS: BACLOFEN (10 MG) 10 MG TABLET GT SCH ×3 (08:08→17:04)
[2019-03-24] MEDS: FOLIC ACID 1 MG TABLET GT SCH ×2 (08:08→17:04)
[2019-03-24] MEDS: SENNOSIDES 8.6 MG TABLET GT SCH ×2 (08:08→20:55)
[2019-03-24] MEDS: LEVETIRACETAM SOL (5 ML) 100 MG/ML UDC GT SCH ×2 (08:08→20:55)
[2019-03-24] MEDS: HEPARIN SODIUM, PORCINE 5000 UNITS/1 ML VIAL SQ SCH ×2 (08:09→21:08)
[2019-03-24] MEDS: Z GUARD REMEDY 4 OZ OINT TP SCH ×2 (08:09→20:56)
[2019-03-24] MEDS: HYDROGEN PEROXIDE 480 ML BOTTLE TP SCH ×2 (08:14→20:05)
--- NOTE | 2019-03-24 16:05 | NUR ---
Called [facility] pharmacy to inquire about the delivery of Rituxan. Spoke with Ness, informed her that our pharmacist placed the order on 02/25/19 and was given delivery date of 03/24/19. She said they need the PA from the doctor's office. I offered if she can resend the form to us and we can assist in the completion. She said she will call Dr Aguilar's office and will get back to me
--- NOTE | 2019-03-24 16:57 | NUR ---
Ness from [facility] called back with Mitchell from Dr. Aguilar's office on the other line. We discussed about the delivery of Rituximab. Ness will resend the PA form to [phone] attention to Mitchell and will have it completed. As per Ness, if they get the PA by tomorrow, the med will be delivered by Thursday, if not either Thursday or Thursday. She said she will follow up tomorrow. Direct number of Mitchell [phone]. Contact number of Ness
[2019-03-24 19:56] VITALS: BP 100/58
[2019-03-24 20:00] VITALS: BP 100/58
[2019-03-24] MEDS: POLYETHYLENE GLYCOL 3350 17 GM POWD.PACK GT SCH (21:08)
[2019-03-25] MEDS: ALBUTEROL FS 2.5 MG/3 ML VIAL.NEB NEB SCH ×4 (01:04→19:36)
[2019-03-25] MEDS: MYCOPHENOLATE MOFETIL SUSP 500 MG/2.5 ML UDC GT SCH ×2 (05:26→17:42)
[2019-03-25] MEDS: POLYVINYL ALCOHOL 15 ML BOTTLE EACHEYE SCH ×4 (05:26→17:42)
[2019-03-25] MEDS: CHLORHEXIDINE GLUCONATE 15 ML UDC MM SCH ×2 (05:26→17:42)
[2019-03-25] MEDS: HYDROGEN PEROXIDE 480 ML BOTTLE TP SCH ×2 (07:49→21:06)
[2019-03-25 07:50] VITALS: BP 120/53
--- NOTE | 2019-03-25 08:36 | NUR ---
Received an automated message from [facility] Special[facility] pharmacy that order (Rituxan) may be delay because it requires approval from insurance. If approved it will be delivered today. Endorsed.
[2019-03-25] MEDS: SENNOSIDES 8.6 MG TABLET GT SCH ×2 (08:42→20:39)
[2019-03-25] MEDS: SERTRALINE HCL 25 MG TABLET GT SCH (08:42)
[2019-03-25] MEDS: FOLIC ACID 1 MG TABLET GT SCH ×2 (08:42→17:41)
[2019-03-25] MEDS: LEVETIRACETAM SOL (5 ML) 100 MG/ML UDC GT SCH ×2 (08:42→20:39)
[2019-03-25] MEDS: BACLOFEN (10 MG) 10 MG TABLET GT SCH ×3 (08:42→17:41)
[2019-03-25] MEDS: Z GUARD REMEDY 4 OZ OINT TP SCH ×2 (08:43→20:39)
[2019-03-25] MEDS: HEPARIN SODIUM, PORCINE 5000 UNITS/1 ML VIAL SQ SCH ×2 (08:43→20:39)
--- NOTE | 2019-03-25 09:50 | NUR ---
Received call from Ness Bonds from [facility] that she followed up PA caitlyn Truong thrjeffrey Medrano of Dr. Aguilar's office. She said as soon as she gets it and approval is obtained from insurance, she will send the med. She will give me update on Thursday.
[2019-03-25] MEDS: JEVITY 1.2 CAL 1,000 ML BOTTLE GT PRN (18:12)
[2019-03-25 20:07] VITALS: BP 111/68
[2019-03-25] MEDS: POLYETHYLENE GLYCOL 3350 17 GM POWD.PACK GT SCH (22:00)
[2019-03-26] MEDS: POLYVINYL ALCOHOL 15 ML BOTTLE EACHEYE SCH ×5 (00:39→23:27)
[2019-03-26] MEDS: ALBUTEROL FS 2.5 MG/3 ML VIAL.NEB NEB SCH ×4 (01:26→19:28)
[2019-03-26] MEDS: CHLORHEXIDINE GLUCONATE 15 ML UDC MM SCH ×2 (05:56→17:39)
[2019-03-26] MEDS: MYCOPHENOLATE MOFETIL SUSP 500 MG/2.5 ML UDC GT SCH ×2 (05:56→17:39)
[2019-03-26 08:00] VITALS: BP 128/79
[2019-03-26] MEDS: HYDROGEN PEROXIDE 480 ML BOTTLE TP SCH ×2 (09:00→21:16)
[2019-03-26] MEDS: FOLIC ACID 1 MG TABLET GT SCH ×2 (09:54→17:39)
[2019-03-26] MEDS: SERTRALINE HCL 25 MG TABLET GT SCH (09:54)
[2019-03-26] MEDS: HEPARIN SODIUM, PORCINE 5000 UNITS/1 ML VIAL SQ SCH ×2 (09:54→20:38)
[2019-03-26] MEDS: SENNOSIDES 8.6 MG TABLET GT SCH ×2 (09:54→20:37)
[2019-03-26] MEDS: LEVETIRACETAM SOL (5 ML) 100 MG/ML UDC GT SCH ×2 (09:54→20:37)
[2019-03-26] MEDS: BACLOFEN (10 MG) 10 MG TABLET GT SCH ×3 (09:54→17:39)
[2019-03-26] MEDS: Z GUARD REMEDY 4 OZ OINT TP SCH ×2 (09:54→20:38)
[2019-03-26] MEDS: JEVITY 1.2 CAL 1,000 ML BOTTLE GT PRN (14:00)
[2019-03-26 20:23] VITALS: BP 108/74
[2019-03-26] MEDS: POLYETHYLENE GLYCOL 3350 17 GM POWD.PACK GT SCH (21:55)
[2019-03-27] MEDS: ALBUTEROL FS 2.5 MG/3 ML VIAL.NEB NEB SCH ×4 (01:16→20:10)
[2019-03-27] MEDS: JEVITY 1.2 CAL 1,000 ML BOTTLE GT PRN ×2 (06:05→22:24)
[2019-03-27] MEDS: POLYVINYL ALCOHOL 15 ML BOTTLE EACHEYE SCH ×3 (06:05→17:11)
[2019-03-27] MEDS: MYCOPHENOLATE MOFETIL SUSP 500 MG/2.5 ML UDC GT SCH ×2 (06:05→17:11)
[2019-03-27] MEDS: CHLORHEXIDINE GLUCONATE 15 ML UDC MM SCH ×2 (06:05→17:11)
[2019-03-27 08:03] VITALS: BP 117/74
[2019-03-27] MEDS: HYDROGEN PEROXIDE 480 ML BOTTLE TP SCH ×2 (09:00→21:00)
[2019-03-27] MEDS: HEPARIN SODIUM, PORCINE 5000 UNITS/1 ML VIAL SQ SCH ×2 (09:59→20:17)
[2019-03-27] MEDS: SENNOSIDES 8.6 MG TABLET GT SCH ×2 (09:59→20:16)
[2019-03-27] MEDS: BACLOFEN (10 MG) 10 MG TABLET GT SCH ×3 (09:59→17:11)
[2019-03-27] MEDS: FOLIC ACID 1 MG TABLET GT SCH ×2 (09:59→17:11)
[2019-03-27] MEDS: SERTRALINE HCL 25 MG TABLET GT SCH (09:59)
[2019-03-27] MEDS: Z GUARD REMEDY 4 OZ OINT TP SCH ×2 (09:59→20:18)
[2019-03-27] MEDS: LEVETIRACETAM SOL (5 ML) 100 MG/ML UDC GT SCH ×2 (09:59→20:15)
[2019-03-27 20:21] VITALS: BP 108/77
[2019-03-27] MEDS: POLYETHYLENE GLYCOL 3350 17 GM POWD.PACK GT SCH (22:24)
[2019-03-28] MEDS: POLYVINYL ALCOHOL 15 ML BOTTLE EACHEYE SCH ×4 (00:08→17:36)
[2019-03-28] MEDS: ALBUTEROL FS 2.5 MG/3 ML VIAL.NEB NEB SCH ×4 (01:43→19:35)
[2019-03-28] MEDS: MYCOPHENOLATE MOFETIL SUSP 500 MG/2.5 ML UDC GT SCH ×2 (05:28→17:36)
[2019-03-28] MEDS: CHLORHEXIDINE GLUCONATE 15 ML UDC MM SCH ×2 (05:28→17:36)
[2019-03-28] MEDS: HYDROGEN PEROXIDE 480 ML BOTTLE TP SCH ×2 (07:42→21:00)
[2019-03-28 07:46] VITALS: BP 103/73
[2019-03-28] MEDS: HEPARIN SODIUM, PORCINE 5000 UNITS/1 ML VIAL SQ SCH ×2 (09:44→20:17)
[2019-03-28] MEDS: Z GUARD REMEDY 4 OZ OINT TP SCH ×2 (09:44→20:17)
[2019-03-28] MEDS: FOLIC ACID 1 MG TABLET GT SCH ×2 (09:44→17:36)
[2019-03-28] MEDS: SENNOSIDES 8.6 MG TABLET GT SCH ×2 (09:44→20:16)
[2019-03-28] MEDS: LEVETIRACETAM SOL (5 ML) 100 MG/ML UDC GT SCH ×2 (09:45→20:16)
[2019-03-28] MEDS: SERTRALINE HCL 25 MG TABLET GT SCH (09:45)
[2019-03-28] MEDS: BACLOFEN (10 MG) 10 MG TABLET GT SCH ×3 (09:45→17:36)
--- NOTE | 2019-03-28 09:51 | NUR ---
Called Dr Aguilar's office to follow up on prior authorization for Rituximab. Spoke with Mitchell. She said she is currently working on it and will send the prior authorization form in an hour.
--- NOTE | 2019-03-28 13:41 | NUR ---
RT Pt received on cool aerosol. Trach care done and hhn txs given w no adverse reactions. No sob or respiratory distress noted through out shift. Addendum: 03/28/19 at 1824 by RICARDO MENDENHALL RT Amended: Links added.
--- NOTE | 2019-03-28 14:45 | NUR ---
Follow up called made to Dr Valdivia'office [phone] regarding PA for Rituxan, spoke with Mitchell stated its approved and she is just waiting for the paperwork to be faxed
--- NOTE | 2019-03-28 16:05 | NUR ---
HILTON received a voicemail from APS worker Toma Wilkins who informed SW that the APS case is being closed for this resident as she has been found to be residing in a safe environment while at [facility]. However, Toma, is highly recommended that a petition for Public Guardian Probate Conservatorship be requested. HILTON called Amberly to inform her that in patients chart is the Notice of Referral Disposition from the Department of Mental Health which stated that the referral for Probate Conservatorship was denied. Per Conservatorship paperwork, after investigation by Sr. [place] Public Conservator, Ariadne Schneider, determined that the residents needs are being met by her family. Family involvement has been established as a more suitable alternative to probate conservatorship. There is no imminent need for probate conservatorship. Therefore, the investigation in closed and the case in non-handled. Toma expressed understanding and stated that although the patient is safe there is still a concern for the patients finances and is recommending that SW make referral to Public Guardians office [phone]. HILTON called call Public Guardians office [phone] and spoke with Guera to relay the above stated information. Guera transferred me to Cristian who handles Probate Conservatorship. Per Cristian, he could not speak to HILTON now but took down contact information. Cristian stated he would call HILTON back in 5 minutes. HILTON was agreeable to plan and will await call or follow-up as needed. HILTON received a call back from Cristian. HILTON updated Cristian on the details of the situation and he e-mailed HILTON with referral paperwork to be filled out by HILTON and faxed to [phone]. HILTON to follow-up.
--- NOTE | 2019-03-28 16:31 | NUR ---
Called [facility] to follow up delivery of Rituxan. Spoke with Renetta Rondon, med will be delivered on March 30Thu. Requested her to deliver it to our pharmacy
[2019-03-28] MEDS: JEVITY 1.2 CAL 1,000 ML BOTTLE GT PRN (18:00)
[2019-03-28 20:24] VITALS: BP 117/74
[2019-03-28] MEDS: POLYETHYLENE GLYCOL 3350 17 GM POWD.PACK GT SCH (22:50)
[2019-03-29] MEDS: POLYVINYL ALCOHOL 15 ML BOTTLE EACHEYE SCH ×4 (00:20→17:15)
[2019-03-29] MEDS: ALBUTEROL FS 2.5 MG/3 ML VIAL.NEB NEB SCH ×4 (01:43→19:19)
[2019-03-29] MEDS: MYCOPHENOLATE MOFETIL SUSP 500 MG/2.5 ML UDC GT SCH ×2 (05:32→17:15)
[2019-03-29] MEDS: CHLORHEXIDINE GLUCONATE 15 ML UDC MM SCH ×2 (05:33→17:15)
[2019-03-29 07:47] VITALS: BP 112/65
[2019-03-29] MEDS: HYDROGEN PEROXIDE 480 ML BOTTLE TP SCH ×2 (09:00→21:00)
[2019-03-29] MEDS: SENNOSIDES 8.6 MG TABLET GT SCH ×2 (09:41→20:20)
[2019-03-29] MEDS: HEPARIN SODIUM, PORCINE 5000 UNITS/1 ML VIAL SQ SCH ×2 (09:41→20:22)
[2019-03-29] MEDS: Z GUARD REMEDY 4 OZ OINT TP SCH ×3 (09:41→20:23)
[2019-03-29] MEDS: BACLOFEN (10 MG) 10 MG TABLET GT SCH ×3 (09:41→17:15)
[2019-03-29] MEDS: LEVETIRACETAM SOL (5 ML) 100 MG/ML UDC GT SCH ×2 (09:41→20:20)
[2019-03-29] MEDS: SERTRALINE HCL 25 MG TABLET GT SCH (09:41)
[2019-03-29] MEDS: FOLIC ACID 1 MG TABLET GT SCH ×2 (09:41→17:14)
--- NOTE | 2019-03-29 12:52 | NUR ---
Pt was noted with buttocks/gluteal cleft MASD. Received order to apply Z-guard cream q shift for 14 days. Notified pt's father.
[2019-03-29] MEDS: JEVITY 1.2 CAL 1,000 ML BOTTLE GT PRN (17:15)
[2019-03-29 20:13] VITALS: BP 100/70
[2019-03-29] MEDS: POLYETHYLENE GLYCOL 3350 17 GM POWD.PACK GT SCH (21:43)
[2019-03-30] MEDS: POLYVINYL ALCOHOL 15 ML BOTTLE EACHEYE SCH ×5 (00:16→23:32)
[2019-03-30] MEDS: ALBUTEROL FS 2.5 MG/3 ML VIAL.NEB NEB SCH ×4 (01:40→19:57)
[2019-03-30] MEDS: CHLORHEXIDINE GLUCONATE 15 ML UDC MM SCH ×2 (05:19→17:30)
[2019-03-30] MEDS: MYCOPHENOLATE MOFETIL SUSP 500 MG/2.5 ML UDC GT SCH ×2 (05:19→17:29)
[2019-03-30 07:51] VITALS: BP 152/75
[2019-03-30] MEDS: FOLIC ACID 1 MG TABLET GT SCH ×2 (08:17→17:29)
[2019-03-30] MEDS: BACLOFEN (10 MG) 10 MG TABLET GT SCH ×3 (08:17→17:29)
[2019-03-30] MEDS: LEVETIRACETAM SOL (5 ML) 100 MG/ML UDC GT SCH ×2 (08:17→21:06)
[2019-03-30] MEDS: SERTRALINE HCL 25 MG TABLET GT SCH (08:17)
[2019-03-30] MEDS: SENNOSIDES 8.6 MG TABLET GT SCH ×2 (08:17→21:06)
[2019-03-30] MEDS: HEPARIN SODIUM, PORCINE 5000 UNITS/1 ML VIAL SQ SCH ×2 (08:18→21:09)
[2019-03-30] MEDS: Z GUARD REMEDY 4 OZ OINT TP SCH ×4 (09:00→21:06)
[2019-03-30] MEDS: HYDROGEN PEROXIDE 480 ML BOTTLE TP SCH ×2 (09:00→19:57)
--- NOTE | 2019-03-30 12:35 | NUR ---
Rituxan med was delivered today at [facility].
[2019-03-30] MEDS: JEVITY 1.2 CAL 1,000 ML BOTTLE GT PRN (13:12)
--- NOTE | 2019-03-30 16:12 | NUR ---
RT Pt received on cool aerosol. Trach care done and hhn txs given w no adverse reactions. trach tube patent and secure, No sob or respiratory distress noted at this time. will continue to monitor. Addendum: 03/30/19 at 1613 by KIMI JAIMES RT Amended: Links added.
--- NOTE | 2019-03-30 19:57 | NUR ---
RT NOTE: RECEIVED TRACH PT ON COOL AEROSOL. AMBU BAG @ BEDSIDE. Q6 BREATHING TX GIVEN PER MD ORDERS WITH NO ADVERSE REACTION NOTED. SX DONE PRN. TRACH CARE DONE. TRACH PATENT AND SECURED. NO RESP DISTRESS NOTED AT THIS TIME. WILL CONTINUE TO MONITOR PT. Addendum: 03/31/19 at 0235 by DOV GREENBERG RT Amended: Links added.
[2019-03-30 20:22] VITALS: BP 119/78
[2019-03-30] MEDS: POLYETHYLENE GLYCOL 3350 17 GM POWD.PACK GT SCH (21:11)
[2019-03-31] MEDS: ALBUTEROL FS 2.5 MG/3 ML VIAL.NEB NEB SCH ×4 (01:43→20:14)
[2019-03-31] MEDS: POLYVINYL ALCOHOL 15 ML BOTTLE EACHEYE SCH ×4 (06:00→23:34)
[2019-03-31] MEDS: CHLORHEXIDINE GLUCONATE 15 ML UDC MM SCH ×2 (06:03→17:14)
[2019-03-31] MEDS: MYCOPHENOLATE MOFETIL SUSP 500 MG/2.5 ML UDC GT SCH ×2 (06:03→17:14)
[2019-03-31 07:37] VITALS: BP 132/66
[2019-03-31] MEDS: HYDROGEN PEROXIDE 480 ML BOTTLE TP SCH ×2 (09:00→20:25)
[2019-03-31] MEDS: LEVETIRACETAM SOL (5 ML) 100 MG/ML UDC GT SCH ×2 (09:07→20:25)
[2019-03-31] MEDS: Z GUARD REMEDY 4 OZ OINT TP SCH ×4 (09:07→20:25)
[2019-03-31] MEDS: FOLIC ACID 1 MG TABLET GT SCH ×2 (09:07→17:14)
[2019-03-31] MEDS: BACLOFEN (10 MG) 10 MG TABLET GT SCH ×3 (09:07→17:14)
[2019-03-31] MEDS: HEPARIN SODIUM, PORCINE 5000 UNITS/1 ML VIAL SQ SCH ×2 (09:07→20:30)
[2019-03-31] MEDS: SENNOSIDES 8.6 MG TABLET GT SCH ×2 (09:07→09:09)
[2019-03-31] MEDS: SERTRALINE HCL 25 MG TABLET GT SCH (09:07)
--- NOTE | 2019-03-31 10:55 | NUR ---
Called Dr Aguilar's office and left message with Sanjuana. Order needed to transfer pt to acute hospital for Rituxan administration. Sanjuana said she will page Dr Joaquin (sed special education teacher for Dr Aguilar).
--- NOTE | 2019-03-31 13:25 | NUR ---
Called Dr Joaquin's office and spoke with Sanjuana. She said to call Dr Joaquin at . Called Dr Joaquin to ask order to transfer pt to acute hospital. Dr Joaquin said he does not know the pt. Informed him that she is Dr Aguilar's pt. He said he is not seeing the pt in the hospital and Dr Aguilar did not endorse the pt to him. He said he is currently seeing a pt and to call him in an hour. Dr Aguilar has previously ordered to transfer pt for Rituxan administration on 04/01/19 (order dated 02/25/13). Notified medical accounting clerk Dr Lubin. Dr Lubin ordered to transfer pt but he said he will not be responsible for discharge or admission notes.
--- NOTE | 2019-03-31 15:11 | NUR ---
Family Invitation to IDT: HILTON left a voicemail to patients responsible constitution party/ daughter, Lisa inviting them to the next IDT meeting where the patients plan of care is to be reviewed on 04/08/19 12:30pm-1:30 pm.
--- NOTE | 2019-03-31 15:32 | NUR ---
Spoke with Dr Joaquin. Explained to him that pt needs to be in the acute hospital for Rituxan administration since it is not administered in Subacute. He said to have pharmacy call him for Rituxan dosing since he does not know what dose to order for the pt. He also asked who orders Rituxan for the pt. Informed him that Rituxan has been ordered and is already available to be administered. Dr Joaquin said to just have the nurse call him tomorrow once the pt is already in the acute hospital. Notified nursing painting supervisor Sue that pt will be transferred tomorrow for Rituxan administration. Addendum: 03/31/19 at 1538 by JAIDEN GARCIA RN Explained to Dr Joaquin that Dr Aguilar is the primary doctor that sees the pt in Subacute and that he is the one that ordered Rituxan.
[2019-03-31 20:25] VITALS: BP 110/62
[2019-03-31] MEDS: POLYETHYLENE GLYCOL 3350 17 GM POWD.PACK GT SCH (21:34)
[2019-04-01] MEDS: ALBUTEROL FS 2.5 MG/3 ML VIAL.NEB NEB SCH ×2 (01:18→08:03)
[2019-04-01] MEDS: MYCOPHENOLATE MOFETIL SUSP 500 MG/2.5 ML UDC GT SCH ×2 (05:29→18:00)
[2019-04-01] MEDS: CHLORHEXIDINE GLUCONATE 15 ML UDC MM SCH ×2 (05:29→18:00)
[2019-04-01] MEDS: POLYVINYL ALCOHOL 15 ML BOTTLE EACHEYE SCH (05:29)
[2019-04-01 07:39] VITALS: BP 114/57
[2019-04-01] MEDS: HYDROGEN PEROXIDE 480 ML BOTTLE TP SCH (08:03)
[2019-04-01] MEDS: FOLIC ACID 1 MG TABLET GT SCH ×2 (08:28→17:00)
[2019-04-01] MEDS: LEVETIRACETAM SOL (5 ML) 100 MG/ML UDC GT SCH ×2 (08:28→21:00)
[2019-04-01] MEDS: SENNOSIDES 8.6 MG TABLET GT SCH (08:28)
[2019-04-01] MEDS: BACLOFEN (10 MG) 10 MG TABLET GT SCH ×3 (08:28→17:00)
[2019-04-01] MEDS: SERTRALINE HCL 25 MG TABLET GT SCH (08:28)
[2019-04-01] MEDS: Z GUARD REMEDY 4 OZ OINT TP SCH ×3 (08:29→21:00)
[2019-04-01] MEDS: HEPARIN SODIUM, PORCINE 5000 UNITS/1 ML VIAL SQ SCH ×2 (08:29→21:00)
--- NOTE | 2019-04-01 10:20 | NUR ---
Resident transferred to [facility] room 102 for Rituxan IV administration. Resident awake, appears comfortable. No s/s of resp. distress. VS WNL.Trach secured and midline, on cool aerosol delivered via T-piece at 28% FIO2, tolerating well. GT intact and patent. Skin intact. Zeb Tellez () informed of transfer. Endorsed to KENYATTA De La Cruz.
[2019-04-01] MEDS ORDERED: HEPA50008 SQ (11:15)
--- NOTE | 2019-04-01 11:43 | NUR ---
RT NOTE: PT TRANSFERED TO [facility] UNIT ON 28% FIO2. PT NEEDS IV MEDS. NO RESPIRATORY DISTRESS OR COMPLICATIONS NOTED DURING TRANSPORT. SPARE TRACH AND AMBU BAG BROUGHT WITH PT. REPORT GIVEN TO NEW RT.
[2019-04-01] MEDS: POLYETHYLENE GLYCOL 3350 17 GM POWD.PACK GT SCH (22:00)
[2019-04-02] MEDS: MYCOPHENOLATE MOFETIL SUSP 500 MG/2.5 ML UDC GT SCH (06:00)
[2019-04-02] MEDS: CHLORHEXIDINE GLUCONATE 15 ML UDC MM SCH (06:00)
--- NOTE | 2019-04-03 17:10 | NUR ---
Resident readmitted from [facility], [facility] with the following diagnosis respiratory failure, depression, encephalopathy, seizure, HTN, GERD, Hx UTI, S/P Rituxan administration for Pemphigus vulgaris under the services of Dr. Elton aguilar. Patient transferred via bed by RN and RT is stable condition, awake and makes eye contact. Body check done, noted to have GT redness, local treatment initiated. Dr. Aguilar made aware that patient with episodes of loose stool prior to transfer and decreased dose of Senna. Resident's father Dr. Swift informed of readmission. Appreciated the call. GT feeding restarted. Orders noted and carried out.
[2019-04-03] MEDS: JEVITY 1.2 CAL 1,000 ML BOTTLE GT PRN (17:38)
[2019-04-03 19:58] VITALS: BP 109/71
[2019-04-03] MEDS: ALBUTEROL FS 2.5 MG/3 ML VIAL.NEB NEB SCH (20:13)
[2019-04-03] MEDS: HYDROGEN PEROXIDE 480 ML BOTTLE TP SCH (20:14)
--- NOTE | 2019-04-03 20:23 | NUR ---
RT NOTE: RECEIVED TRACH PT ON COOL AEROSOL. AMBU BAG @ BEDSIDE. Q6 BREATHING TX GIVEN PER MD ORDERS WITH NO ADVERSE REACTION NOTED. SX DONE PRN. TRACH PATENT AND SECURED. TRACH CARE DONE. NO RESP DISTRESS NOTED AT THIS TIME. WILL CONTINUE TO MONITOR PT. Addendum: 04/03/19 at 2221 by DOV GREENBERG RT Amended: Links added.
[2019-04-03] MEDS: SENNOSIDES 8.6 MG TABLET GT SCH (21:00)
[2019-04-03] MEDS: LEVETIRACETAM SOL (5 ML) 100 MG/ML UDC GT SCH (21:00)
[2019-04-03] MEDS: HEPARIN SODIUM, PORCINE 5000 UNITS/1 ML VIAL SQ SCH (21:00)
[2019-04-03] MEDS: Z GUARD REMEDY 4 OZ OINT TP SCH (21:00)
[2019-04-03] MEDS: POLYETHYLENE GLYCOL 3350 17 GM POWD.PACK GT SCH (22:00)
[2019-04-04] MEDS: ALBUTEROL FS 2.5 MG/3 ML VIAL.NEB NEB SCH ×4 (02:14→20:14)
[2019-04-04] MEDS: JEVITY 1.2 CAL 1,000 ML BOTTLE GT PRN (06:26)
[2019-04-04 07:48] VITALS: BP 111/82
[2019-04-04] MEDS: HYDROGEN PEROXIDE 480 ML BOTTLE TP SCH ×2 (08:01→21:10)
[2019-04-04] MEDS: BACLOFEN (10 MG) 10 MG TABLET GT SCH ×3 (09:43→16:06)
[2019-04-04] MEDS: FOLIC ACID 1 MG TABLET GT SCH ×2 (09:43→16:06)
[2019-04-04] MEDS: SERTRALINE HCL 25 MG TABLET GT SCH (09:44)
[2019-04-04] MEDS: LEVETIRACETAM SOL (5 ML) 100 MG/ML UDC GT SCH ×2 (09:44→21:09)
[2019-04-04] MEDS: HEPARIN SODIUM, PORCINE 5000 UNITS/1 ML VIAL SQ SCH ×2 (09:46→21:09)
[2019-04-04] MEDS: SENNOSIDES 8.6 MG TABLET GT SCH ×2 (09:46→21:09)
[2019-04-04] MEDS: Z GUARD REMEDY 4 OZ OINT TP SCH ×4 (09:46→21:10)
[2019-04-04] MEDS: POLYVINYL ALCOHOL 15 ML BOTTLE EACHEYE SCH ×3 (12:52→23:21)
--- NOTE | 2019-04-04 14:11 | NUR ---
RT Pt received on cool aerosol. Trach care done and hhn txs given w no adverse reactions. Pt stable. No sob or respiratory distress noted through out shift. Addendum: 04/04/19 at 2233 by RICARDO MENDENHALL RT Amended: Links added.
[2019-04-04] MEDS: CHLORHEXIDINE GLUCONATE 15 ML UDC MM SCH (17:23)
[2019-04-04] MEDS: MYCOPHENOLATE MOFETIL SUSP 500 MG/2.5 ML UDC GT SCH (17:23)
--- NOTE | 2019-04-04 19:00 | NUR ---
Resident stable the whole shift. V/S WNL. Afebrile. No s/s of distress or discomfort. Awake most of the day. Appears comfortable. Trach secured and midline. On cool aerosol at 28%, tolerating well. GT intact and patent. GT feeding tolerated well. Aspiration precaution observed. Will continue to monitor.
[2019-04-04 21:00] VITALS: BP 116/61
[2019-04-04] MEDS: POLYETHYLENE GLYCOL 3350 17 GM POWD.PACK GT SCH (21:09)
[2019-04-05] MEDS: ALBUTEROL FS 2.5 MG/3 ML VIAL.NEB NEB SCH ×4 (01:20→19:25)
--- NOTE | 2019-04-05 04:07 | NUR ---
PT RCVD OLE'D ON COOL AEROSOL WITH CHARTED SETTINGS. SX DONE. PT TRACH IS PATENT AND SECURE. AMBU BAG AT BEDSIDE. Addendum: 04/05/19 at 0407 by USHA SUMMERS RT Amended: Links added.
[2019-04-05] MEDS: MYCOPHENOLATE MOFETIL SUSP 500 MG/2.5 ML UDC GT SCH ×2 (05:35→17:33)
[2019-04-05] MEDS: POLYVINYL ALCOHOL 15 ML BOTTLE EACHEYE SCH ×3 (05:35→17:33)
[2019-04-05] MEDS: CHLORHEXIDINE GLUCONATE 15 ML UDC MM SCH ×2 (05:35→17:33)
[2019-04-05 07:55] VITALS: BP 108/85
--- NOTE | 2019-04-05 08:51 | NUR ---
RT NOTE PT REC'D TRACH'D ON COOL AEROSOL WITH CHARTED SETTINGS. SX DONE. PT TRACH IS PATENT AND SECURE. AMBU BAG AT BEDSIDE. NO SOB NOTED AT THIS TIME. Addendum: 04/05/19 at 0852 by KIMI JAIMES RT Amended: Links added.
[2019-04-05] MEDS: Z GUARD REMEDY 4 OZ OINT TP SCH ×4 (09:00→20:35)
[2019-04-05] MEDS: HYDROGEN PEROXIDE 480 ML BOTTLE TP SCH ×2 (09:00→20:35)
[2019-04-05] MEDS: FOLIC ACID 1 MG TABLET GT SCH ×2 (09:48→16:25)
[2019-04-05] MEDS: SENNOSIDES 8.6 MG TABLET GT SCH ×2 (09:48→20:34)
[2019-04-05] MEDS: BACLOFEN (10 MG) 10 MG TABLET GT SCH ×3 (09:48→16:25)
[2019-04-05] MEDS: LEVETIRACETAM SOL (5 ML) 100 MG/ML UDC GT SCH ×2 (09:48→20:34)
[2019-04-05] MEDS: SERTRALINE HCL 25 MG TABLET GT SCH (09:48)
[2019-04-05] MEDS: HEPARIN SODIUM, PORCINE 5000 UNITS/1 ML VIAL SQ SCH ×2 (09:49→21:33)
[2019-04-05] MEDS: JEVITY 1.2 CAL 1,000 ML BOTTLE GT PRN (15:26)
[2019-04-05 20:57] VITALS: BP 122/68
[2019-04-05] MEDS: POLYETHYLENE GLYCOL 3350 17 GM POWD.PACK GT SCH (21:34)
[2019-04-06] MEDS: POLYVINYL ALCOHOL 15 ML BOTTLE EACHEYE SCH ×4 (00:17→18:06)
[2019-04-06] MEDS: ALBUTEROL FS 2.5 MG/3 ML VIAL.NEB NEB SCH ×4 (01:24→20:11)
[2019-04-06] MEDS: MYCOPHENOLATE MOFETIL SUSP 500 MG/2.5 ML UDC GT SCH ×2 (06:35→18:06)
[2019-04-06] MEDS: CHLORHEXIDINE GLUCONATE 15 ML UDC MM SCH ×2 (06:35→18:06)
[2019-04-06 07:51] VITALS: BP 108/74
[2019-04-06] MEDS: HYDROGEN PEROXIDE 480 ML BOTTLE TP SCH ×2 (08:08→20:11)
[2019-04-06] MEDS: FOLIC ACID 1 MG TABLET GT SCH ×2 (08:14→16:21)
[2019-04-06] MEDS: LEVETIRACETAM SOL (5 ML) 100 MG/ML UDC GT SCH ×2 (08:14→20:29)
[2019-04-06] MEDS: SENNOSIDES 8.6 MG TABLET GT SCH (08:15)
[2019-04-06] MEDS: SERTRALINE HCL 25 MG TABLET GT SCH ×2 (08:15→09:00)
[2019-04-06] MEDS: BACLOFEN (10 MG) 10 MG TABLET GT SCH ×3 (08:15→16:21)
[2019-04-06] MEDS: HEPARIN SODIUM, PORCINE 5000 UNITS/1 ML VIAL SQ SCH ×2 (08:15→20:29)
[2019-04-06] MEDS: Z GUARD REMEDY 4 OZ OINT TP SCH ×4 (09:00→20:30)
[2019-04-06] MEDS ORDERED: ACETAMINOPHEN 650 MG/20 ML UDC- SA PATIENTS-FEVER ONLY GT PRN (09:00)
[2019-04-06] MEDS ORDERED: MAGNESIUM HYDROXIDE 30 ML UDC GT PRN (09:00)
[2019-04-06] MEDS ORDERED: HYDROGEN PEROXIDE 480 ML BOTTLE TP PRN (09:00)
[2019-04-06] MEDS ORDERED: ACETAMINOPHEN 650 MG/20 ML UDC- SA PATIENTS-PAIN ONLY GT PRN (09:00)
--- NOTE | 2019-04-06 20:21 | NUR ---
RT NOTE: RECEIVED TRACH PT ON COOL AEROSOL. AMBU BAG @ BEDSIDE. Q6 BREATHING TX GIVEN PER MD ORDERS WITH NO ADVERSE REACTION NOTED. SX DONE PRN. TRACH PATENT AND SECURED. TRACH CARE DONE. NO RESP DISTRESS NOTED AT THIS TIME. WILL CONTINUE TO MONITOR PT. Addendum: 04/07/19 at 0301 by DOV GREENBERG RT Amended: Links added.
[2019-04-06 20:56] VITALS: BP 120/65
[2019-04-06] MEDS: POLYETHYLENE GLYCOL 3350 17 GM POWD.PACK GT SCH (21:21)
[2019-04-06] MEDS: JEVITY 1.2 CAL 1,000 ML BOTTLE GT PRN (22:05)
[2019-04-07] MEDS: POLYVINYL ALCOHOL 15 ML BOTTLE EACHEYE SCH ×4 (00:15→17:29)
[2019-04-07] MEDS: ALBUTEROL FS 2.5 MG/3 ML VIAL.NEB NEB SCH ×4 (01:47→20:09)
[2019-04-07] MEDS: CHLORHEXIDINE GLUCONATE 15 ML UDC MM SCH ×2 (05:12→17:29)
[2019-04-07] MEDS: MYCOPHENOLATE MOFETIL SUSP 500 MG/2.5 ML UDC GT SCH ×2 (05:14→17:29)
[2019-04-07] MEDS: HYDROGEN PEROXIDE 480 ML BOTTLE TP SCH ×2 (07:43→20:09)
[2019-04-07 07:48] VITALS: BP 108/79
[2019-04-07] MEDS: SENNOSIDES 8.6 MG TABLET GT SCH (08:52)
[2019-04-07] MEDS: FOLIC ACID 1 MG TABLET GT SCH ×2 (08:52→17:29)
[2019-04-07] MEDS: LEVETIRACETAM SOL (5 ML) 100 MG/ML UDC GT SCH ×2 (08:52→21:46)
[2019-04-07] MEDS: BACLOFEN (10 MG) 10 MG TABLET GT SCH ×3 (08:52→17:29)
[2019-04-07] MEDS: SERTRALINE HCL 25 MG TABLET GT SCH (08:52)
[2019-04-07] MEDS: Z GUARD REMEDY 4 OZ OINT TP SCH ×4 (08:53→21:47)
[2019-04-07] MEDS: HEPARIN SODIUM, PORCINE 5000 UNITS/1 ML VIAL SQ SCH ×2 (08:53→21:47)
[2019-04-07] MEDS: JEVITY 1.2 CAL 1,000 ML BOTTLE GT PRN (16:27)
--- NOTE | 2019-04-07 16:47 | NUR ---
RT NOTE: RECEIVED PT ON COOL AEROSOL. NO RESPIRATORY DISTRESS NOTED. TRACH CHECKED SECURE AND PATENT. SXD AND LAVAGED Q ROUND AND NEEDED. TXS GIVEN ORDERED WITH NO ADVERSE REACTIONS NOTED. TRACH CARE DONE. SPARE TRACH AND AMBU BAG @ BEDSIDE.
--- NOTE | 2019-04-07 20:38 | NUR ---
PT RCVD TRACH'D ON COOL AEROSOL WITH CHARTED SETTINGS. PT JIMBO TX WELL. SX DONE. PT TRACH IS PATENT AND SECURE. AMBU BAG AT BEDSIDE. Addendum: 04/07/19 at 2037 by USHA SUMMERS RT Amended: Links added.
[2019-04-07 20:50] VITALS: BP 116/71
[2019-04-07] MEDS: POLYETHYLENE GLYCOL 3350 17 GM POWD.PACK GT SCH (21:47)
[2019-04-08] MEDS: POLYVINYL ALCOHOL 15 ML BOTTLE EACHEYE SCH ×5 (00:50→23:32)
[2019-04-08] MEDS: ALBUTEROL FS 2.5 MG/3 ML VIAL.NEB NEB SCH ×4 (01:20→20:25)
[2019-04-08] MEDS: CHLORHEXIDINE GLUCONATE 15 ML UDC MM SCH ×2 (05:46→17:13)
[2019-04-08] MEDS: MYCOPHENOLATE MOFETIL SUSP 500 MG/2.5 ML UDC GT SCH ×2 (05:46→17:13)
[2019-04-08 07:48] VITALS: BP 137/72
[2019-04-08] MEDS: HYDROGEN PEROXIDE 480 ML BOTTLE TP SCH ×2 (08:30→20:25)
[2019-04-08] MEDS: Z GUARD REMEDY 4 OZ OINT TP SCH ×4 (08:39→21:19)
[2019-04-08] MEDS: FOLIC ACID 1 MG TABLET GT SCH ×2 (08:39→17:13)
[2019-04-08] MEDS: SERTRALINE HCL 25 MG TABLET GT SCH (08:39)
[2019-04-08] MEDS: LEVETIRACETAM SOL (5 ML) 100 MG/ML UDC GT SCH ×2 (08:39→21:18)
[2019-04-08] MEDS: HEPARIN SODIUM, PORCINE 5000 UNITS/1 ML VIAL SQ SCH ×2 (08:39→21:18)
[2019-04-08] MEDS: SENNOSIDES 8.6 MG TABLET GT SCH (08:39)
[2019-04-08] MEDS: BACLOFEN (10 MG) 10 MG TABLET GT SCH ×3 (08:39→17:13)
[2019-04-08] MEDS: JEVITY 1.2 CAL 1,000 ML BOTTLE GT PRN (13:56)
--- NOTE | 2019-04-08 15:59 | NUR ---
PLAN OF CARE CONFERENCE was held today. Dr. Lubin and interdisciplinary team discussed the current plan of care in detail. Family could not participate even via phone conference. Charge Nurse, Radha discussed transfer to [facility] on 04/01. Current orders as well as treatments and medications were reviewed. See other discipline's IDT notes for further details.
--- NOTE | 2019-04-08 18:41 | NUR ---
RT NOTE NO SOB NOTED. EXTRA TRACH AT BEDSIDE AND AMBU BAG. NO ADVERSE REACTIONS TO MEDS. SX SMALL CLEAR WHITE SECRETIONS. Addendum: 04/08/19 at 1843 by ANDREINA YOUNGER RT Amended: Links added.
[2019-04-08 19:52] VITALS: BP 117/77
--- NOTE | 2019-04-08 20:49 | NUR ---
PT RCVD TRACH'D ON COOL AEROSOL WITH CHARTED SETTINGS. PT JIMBO TX WELL. SX DONE. PT TRACH IS PATENT AND SECURE. AMBU BAG AT BEDSIDE. Addendum: 04/08/19 at 2049 by USHA SUMMERS RT Amended: Links added.
[2019-04-08] MEDS: POLYETHYLENE GLYCOL 3350 17 GM POWD.PACK GT SCH (21:19)
[2019-04-09] MEDS: ALBUTEROL FS 2.5 MG/3 ML VIAL.NEB NEB SCH ×4 (01:09→20:08)
[2019-04-09] MEDS: POLYVINYL ALCOHOL 15 ML BOTTLE EACHEYE SCH ×3 (05:30→17:13)
[2019-04-09] MEDS: CHLORHEXIDINE GLUCONATE 15 ML UDC MM SCH ×2 (05:30→17:13)
[2019-04-09] MEDS: MYCOPHENOLATE MOFETIL SUSP 500 MG/2.5 ML UDC GT SCH ×2 (05:30→17:13)
[2019-04-09] MEDS: JEVITY 1.2 CAL 1,000 ML BOTTLE GT PRN ×2 (06:30→22:00)
[2019-04-09 07:59] VITALS: BP 148/76
[2019-04-09] MEDS: HYDROGEN PEROXIDE 480 ML BOTTLE TP SCH ×2 (08:33→21:35)
[2019-04-09] MEDS: FOLIC ACID 1 MG TABLET GT SCH ×2 (08:47→17:13)
[2019-04-09] MEDS: BACLOFEN (10 MG) 10 MG TABLET GT SCH ×3 (08:47→17:13)
[2019-04-09] MEDS: SENNOSIDES 8.6 MG TABLET GT SCH (08:47)
[2019-04-09] MEDS: SERTRALINE HCL 25 MG TABLET GT SCH (08:47)
[2019-04-09] MEDS: LEVETIRACETAM SOL (5 ML) 100 MG/ML UDC GT SCH ×2 (08:47→20:26)
[2019-04-09] MEDS: HEPARIN SODIUM, PORCINE 5000 UNITS/1 ML VIAL SQ SCH ×2 (08:48→20:26)
[2019-04-09] MEDS: Z GUARD REMEDY 4 OZ OINT TP SCH ×4 (08:48→20:27)
[2019-04-09 19:48] VITALS: BP 113/75
[2019-04-09] MEDS: POLYETHYLENE GLYCOL 3350 17 GM POWD.PACK GT SCH (21:27)
[2019-04-10] MEDS: POLYVINYL ALCOHOL 15 ML BOTTLE EACHEYE SCH ×4 (00:58→18:07)
[2019-04-10] MEDS: ALBUTEROL FS 2.5 MG/3 ML VIAL.NEB NEB SCH ×4 (01:40→19:40)
[2019-04-10] MEDS: MYCOPHENOLATE MOFETIL SUSP 500 MG/2.5 ML UDC GT SCH ×2 (05:21→18:07)
[2019-04-10] MEDS: CHLORHEXIDINE GLUCONATE 15 ML UDC MM SCH ×2 (05:21→18:07)
--- NOTE | 2019-04-10 06:12 | NUR ---
RT PATIENT WAS RECEIVED ON 28% COOL AEROSOL . AIRWAY PATENT AND SECURED. PATIENT STABLE THROUGHOUT THE SHIFT. WILL CONTINUE TO MONITOR. Addendum: 04/10/19 at 0612 by ELIAZAR GOMES RT Amended: Links added.
[2019-04-10 08:00] VITALS: BP_SYST 112; BP_SYST 81; BP_DIAS 50; BP_DIAS 83
[2019-04-10] MEDS: LEVETIRACETAM SOL (5 ML) 100 MG/ML UDC GT SCH ×2 (09:00→21:11)
[2019-04-10] MEDS: SERTRALINE HCL 25 MG TABLET GT SCH (09:00)
[2019-04-10] MEDS: HEPARIN SODIUM, PORCINE 5000 UNITS/1 ML VIAL SQ SCH ×2 (09:00→21:12)
[2019-04-10] MEDS: Z GUARD REMEDY 4 OZ OINT TP SCH ×4 (09:00→21:13)
[2019-04-10] MEDS: HYDROGEN PEROXIDE 480 ML BOTTLE TP SCH ×2 (09:00→21:16)
[2019-04-10] MEDS: FOLIC ACID 1 MG TABLET GT SCH ×2 (09:00→16:22)
[2019-04-10] MEDS: SENNOSIDES 8.6 MG TABLET GT SCH (09:00)
[2019-04-10] MEDS: BACLOFEN (10 MG) 10 MG TABLET GT SCH ×3 (09:00→16:22)
[2019-04-10] MEDS: JEVITY 1.2 CAL 1,000 ML BOTTLE GT PRN (16:21)
[2019-04-10 19:48] VITALS: BP 119/67
[2019-04-10] MEDS: POLYETHYLENE GLYCOL 3350 17 GM POWD.PACK GT SCH (21:13)
[2019-04-11] MEDS: POLYVINYL ALCOHOL 15 ML BOTTLE EACHEYE SCH ×5 (00:11→23:01)
[2019-04-11] MEDS: ALBUTEROL FS 2.5 MG/3 ML VIAL.NEB NEB SCH ×4 (01:42→19:27)
[2019-04-11] MEDS: MYCOPHENOLATE MOFETIL SUSP 500 MG/2.5 ML UDC GT SCH ×2 (05:35→17:34)
[2019-04-11] MEDS: CHLORHEXIDINE GLUCONATE 15 ML UDC MM SCH ×2 (05:35→17:34)
[2019-04-11] MEDS: HYDROGEN PEROXIDE 480 ML BOTTLE TP SCH ×2 (09:00→21:22)
[2019-04-11] MEDS: SERTRALINE HCL 25 MG TABLET GT SCH (09:06)
[2019-04-11] MEDS: FOLIC ACID 1 MG TABLET GT SCH ×2 (09:06→16:32)
[2019-04-11] MEDS: LEVETIRACETAM SOL (5 ML) 100 MG/ML UDC GT SCH ×2 (09:06→21:21)
[2019-04-11] MEDS: BACLOFEN (10 MG) 10 MG TABLET GT SCH ×3 (09:06→16:32)
[2019-04-11] MEDS: SENNOSIDES 8.6 MG TABLET GT SCH (09:06)
[2019-04-11] MEDS: Z GUARD REMEDY 4 OZ OINT TP SCH ×4 (09:07→21:22)
[2019-04-11] MEDS: HEPARIN SODIUM, PORCINE 5000 UNITS/1 ML VIAL SQ SCH ×2 (09:07→21:22)
[2019-04-11 10:01] VITALS: BP 92/54
[2019-04-11 19:46] VITALS: BP 119/67
[2019-04-11] MEDS: POLYETHYLENE GLYCOL 3350 17 GM POWD.PACK GT SCH (21:22)
[2019-04-12] MEDS: ALBUTEROL FS 2.5 MG/3 ML VIAL.NEB NEB SCH ×4 (00:55→20:10)
[2019-04-12] MEDS: POLYVINYL ALCOHOL 15 ML BOTTLE EACHEYE SCH ×4 (06:00→23:51)
[2019-04-12] MEDS: MYCOPHENOLATE MOFETIL SUSP 500 MG/2.5 ML UDC GT SCH ×2 (06:00→17:03)
[2019-04-12] MEDS: CHLORHEXIDINE GLUCONATE 15 ML UDC MM SCH ×2 (06:00→17:03)
[2019-04-12 07:55] VITALS: BP 101/49
[2019-04-12] MEDS: SENNOSIDES 8.6 MG TABLET GT SCH (09:00)
[2019-04-12] MEDS: LEVETIRACETAM SOL (5 ML) 100 MG/ML UDC GT SCH ×2 (09:00→21:20)
[2019-04-12] MEDS: SERTRALINE HCL 25 MG TABLET GT SCH (09:00)
[2019-04-12] MEDS: Z GUARD REMEDY 4 OZ OINT TP SCH ×4 (09:00→21:20)
[2019-04-12] MEDS: HEPARIN SODIUM, PORCINE 5000 UNITS/1 ML VIAL SQ SCH ×2 (09:00→21:20)
[2019-04-12] MEDS: FOLIC ACID 1 MG TABLET GT SCH ×2 (09:00→17:03)
[2019-04-12] MEDS: BACLOFEN (10 MG) 10 MG TABLET GT SCH ×3 (09:00→17:03)
[2019-04-12] MEDS: HYDROGEN PEROXIDE 480 ML BOTTLE TP SCH ×2 (09:58→20:10)
--- NOTE | 2019-04-12 09:59 | NUR ---
RT NOTE: RECEIVED TRACH PATIENT ON COOL AEROSOL. TRACH CARE DONE AT THIS TIME. TRACH IS PATENT AND SECURE. NO RESP DISTRESS NOTED. WILL CONT TO MONITOR. Addendum: 04/12/19 at 1000 by KIMI JAIMES RT Amended: Links added.
--- NOTE | 2019-04-12 20:20 | NUR ---
RT NOTE: RECEIVED TRACH PT ON COOL AEROSOL. AMBU BAG @ BEDSIDE. Q6 BREATHING TX GIVEN PER MD ORDERS WITH NO ADVERSE REACTION NOTED. SX DONE PRN. TRACH PATENT AND SECURED. TRACH CARE DONE. NO RESP DISTRESS NOTED AT THIS TIME. WILL CONTINUE TO MONITOR PT. Addendum: 04/13/19 at 0241 by DOV GREENBERG RT Amended: Links added.
[2019-04-12 20:53] VITALS: BP 120/74
[2019-04-12] MEDS: POLYETHYLENE GLYCOL 3350 17 GM POWD.PACK GT SCH (21:21)
[2019-04-13] MEDS: ALBUTEROL FS 2.5 MG/3 ML VIAL.NEB NEB SCH ×4 (01:57→19:53)
[2019-04-13] MEDS: POLYVINYL ALCOHOL 15 ML BOTTLE EACHEYE SCH ×3 (05:50→18:15)
[2019-04-13] MEDS: MYCOPHENOLATE MOFETIL SUSP 500 MG/2.5 ML UDC GT SCH ×2 (05:50→18:15)
[2019-04-13] MEDS: CHLORHEXIDINE GLUCONATE 15 ML UDC MM SCH ×2 (05:50→18:15)
[2019-04-13] MEDS: HYDROGEN PEROXIDE 480 ML BOTTLE TP SCH ×2 (08:08→19:54)
[2019-04-13 08:13] VITALS: BP 115/67
[2019-04-13] MEDS: SENNOSIDES 8.6 MG TABLET GT SCH (09:38)
[2019-04-13] MEDS: SERTRALINE HCL 25 MG TABLET GT SCH (09:38)
[2019-04-13] MEDS: BACLOFEN (10 MG) 10 MG TABLET GT SCH ×3 (09:38→17:00)
[2019-04-13] MEDS: LEVETIRACETAM SOL (5 ML) 100 MG/ML UDC GT SCH ×2 (09:38→21:34)
[2019-04-13] MEDS: FOLIC ACID 1 MG TABLET GT SCH ×2 (09:38→17:00)
[2019-04-13] MEDS: Z GUARD REMEDY 4 OZ OINT TP SCH ×4 (09:39→21:34)
[2019-04-13] MEDS: HEPARIN SODIUM, PORCINE 5000 UNITS/1 ML VIAL SQ SCH ×2 (09:39→21:34)
[2019-04-13] MEDS: JEVITY 1.2 CAL 1,000 ML BOTTLE GT PRN (18:13)
--- NOTE | 2019-04-13 20:05 | NUR ---
RT NOTE: RECEIVED TRACH PT ON COOL AEROSOL. AMBU BAG @ BEDSIDE. Q6 BREATHING TX GIVEN PER MD ORDERS WITH NO ADVERSE REACTION NOTED. SX DONE PRN. TRACH PATENT AND SECURED. TRACH CARE DONE. NO RESP DISTRESS NOTED AT THIS TIME. WILL CONTINUE TO MONITOR PT. Addendum: 04/14/19 at 0247 by DOV GREENBERG RT Amended: Links added.
[2019-04-13 20:49] VITALS: BP 124/66
[2019-04-13] MEDS: POLYETHYLENE GLYCOL 3350 17 GM POWD.PACK GT SCH (21:34)
[2019-04-14] MEDS: POLYVINYL ALCOHOL 15 ML BOTTLE EACHEYE SCH ×5 (00:22→23:26)
[2019-04-14] MEDS: ALBUTEROL FS 2.5 MG/3 ML VIAL.NEB NEB SCH ×4 (01:50→20:29)
[2019-04-14] MEDS: MYCOPHENOLATE MOFETIL SUSP 500 MG/2.5 ML UDC GT SCH ×2 (05:30→17:09)
[2019-04-14] MEDS: CHLORHEXIDINE GLUCONATE 15 ML UDC MM SCH ×2 (05:31→17:09)
[2019-04-14 07:24] VITALS: BP 129/79
[2019-04-14] MEDS: HYDROGEN PEROXIDE 480 ML BOTTLE TP SCH ×2 (08:28→20:28)
[2019-04-14] MEDS: FOLIC ACID 1 MG TABLET GT SCH ×2 (08:29→16:32)
[2019-04-14] MEDS: SERTRALINE HCL 25 MG TABLET GT SCH (08:30)
[2019-04-14] MEDS: LEVETIRACETAM SOL (5 ML) 100 MG/ML UDC GT SCH ×2 (08:30→20:27)
[2019-04-14] MEDS: BACLOFEN (10 MG) 10 MG TABLET GT SCH ×3 (08:30→16:32)
[2019-04-14] MEDS: SENNOSIDES 8.6 MG TABLET GT SCH (08:30)
[2019-04-14] MEDS: Z GUARD REMEDY 4 OZ OINT TP SCH ×4 (08:30→20:28)
[2019-04-14] MEDS: HEPARIN SODIUM, PORCINE 5000 UNITS/1 ML VIAL SQ SCH ×2 (08:33→20:27)
[2019-04-14] MEDS: JEVITY 1.2 CAL 1,000 ML BOTTLE GT PRN (16:40)
[2019-04-14 19:43] VITALS: BP 116/68
[2019-04-14] MEDS: POLYETHYLENE GLYCOL 3350 17 GM POWD.PACK GT SCH (21:07)
--- NOTE | 2019-04-14 23:57 | NUR ---
PT RCVD TRACH'D ON COOL AEROSOL WITH CHARTED SETTINGS. PT JIMBO TX WELL. SX DONE. PT TRACH IS PATENT AND SECURE. AMBU BAG AT BEDSIDE. Addendum: 04/14/19 at 2357 by USHA SUMMERS RT Amended: Links added.
[2019-04-15] MEDS: ALBUTEROL FS 2.5 MG/3 ML VIAL.NEB NEB SCH ×4 (01:00→19:54)
[2019-04-15] MEDS: MYCOPHENOLATE MOFETIL SUSP 500 MG/2.5 ML UDC GT SCH ×2 (05:16→18:15)
[2019-04-15] MEDS: JEVITY 1.2 CAL 1,000 ML BOTTLE GT PRN (05:16)
[2019-04-15] MEDS: CHLORHEXIDINE GLUCONATE 15 ML UDC MM SCH ×2 (05:16→18:15)
[2019-04-15] MEDS: POLYVINYL ALCOHOL 15 ML BOTTLE EACHEYE SCH ×3 (05:16→18:15)
[2019-04-15 07:43] VITALS: BP 114/65
[2019-04-15] MEDS: FOLIC ACID 1 MG TABLET GT SCH ×2 (08:25→16:20)
[2019-04-15] MEDS: SERTRALINE HCL 25 MG TABLET GT SCH (08:25)
[2019-04-15] MEDS: BACLOFEN (10 MG) 10 MG TABLET GT SCH ×3 (08:25→16:20)
[2019-04-15] MEDS: SENNOSIDES 8.6 MG TABLET GT SCH (08:25)
[2019-04-15] MEDS: LEVETIRACETAM SOL (5 ML) 100 MG/ML UDC GT SCH ×2 (08:25→20:52)
[2019-04-15] MEDS: HEPARIN SODIUM, PORCINE 5000 UNITS/1 ML VIAL SQ SCH ×2 (08:26→20:53)
[2019-04-15] MEDS: Z GUARD REMEDY 4 OZ OINT TP SCH ×4 (09:00→20:53)
[2019-04-15] MEDS: HYDROGEN PEROXIDE 480 ML BOTTLE TP SCH ×2 (09:00→20:11)
--- NOTE | 2019-04-15 09:00 | NUR ---
Seen and examined by JAZMINE Willoughby given. Addendum: 04/15/19 at 1950 by SHOSHANA HERRMANN RN Seen and examined by JAZMINE Ansari given.
--- NOTE | 2019-04-15 20:21 | NUR ---
PT RCVD TRACH'D ON COOL AEROSOL WITH CHARTED SETTINGS. PT JIMBO TX WELL. SX DONE. PT TRACH IS PATENT AND SECURE. AMBU BAG AT BEDSIDE. Addendum: 04/15/19 at 2020 by USHA SUMMERS RT Amended: Links added.
[2019-04-15 20:35] VITALS: BP 109/53
[2019-04-15] MEDS: POLYETHYLENE GLYCOL 3350 17 GM POWD.PACK GT SCH (21:09)
[2019-04-16] MEDS: POLYVINYL ALCOHOL 15 ML BOTTLE EACHEYE SCH ×5 (00:03→23:11)
[2019-04-16] MEDS: ALBUTEROL FS 2.5 MG/3 ML VIAL.NEB NEB SCH ×4 (01:03→20:14)
[2019-04-16] MEDS: MYCOPHENOLATE MOFETIL SUSP 500 MG/2.5 ML UDC GT SCH ×2 (05:19→17:06)
[2019-04-16] MEDS: CHLORHEXIDINE GLUCONATE 15 ML UDC MM SCH ×2 (05:19→17:06)
[2019-04-16] MEDS: JEVITY 1.2 CAL 1,000 ML BOTTLE GT PRN ×2 (05:19→19:04)
[2019-04-16] MEDS: SENNOSIDES 8.6 MG TABLET GT SCH (08:29)
[2019-04-16] MEDS: SERTRALINE HCL 25 MG TABLET GT SCH (08:29)
[2019-04-16] MEDS: BACLOFEN (10 MG) 10 MG TABLET GT SCH ×3 (08:29→16:24)
[2019-04-16] MEDS: FOLIC ACID 1 MG TABLET GT SCH ×2 (08:29→16:24)
[2019-04-16] MEDS: LEVETIRACETAM SOL (5 ML) 100 MG/ML UDC GT SCH ×2 (08:29→20:17)
[2019-04-16] MEDS: Z GUARD REMEDY 4 OZ OINT TP SCH ×4 (09:36→20:18)
[2019-04-16] MEDS: HEPARIN SODIUM, PORCINE 5000 UNITS/1 ML VIAL SQ SCH ×2 (09:36→20:18)
[2019-04-16 10:16] VITALS: BP 105/58
[2019-04-16 20:13] VITALS: BP 124/78
[2019-04-16] MEDS: HYDROGEN PEROXIDE 480 ML BOTTLE TP SCH (20:14)
[2019-04-16] MEDS: POLYETHYLENE GLYCOL 3350 17 GM POWD.PACK GT SCH (21:00)
[2019-04-17] MEDS: ALBUTEROL FS 2.5 MG/3 ML VIAL.NEB NEB SCH ×4 (01:26→20:02)
[2019-04-17] MEDS: POLYVINYL ALCOHOL 15 ML BOTTLE EACHEYE SCH ×3 (05:34→17:50)
[2019-04-17] MEDS: CHLORHEXIDINE GLUCONATE 15 ML UDC MM SCH ×2 (05:34→17:50)
[2019-04-17] MEDS: MYCOPHENOLATE MOFETIL SUSP 500 MG/2.5 ML UDC GT SCH ×2 (05:34→17:50)
[2019-04-17 07:45] VITALS: BP 115/68
[2019-04-17] MEDS: SERTRALINE HCL 25 MG TABLET GT SCH (09:00)
[2019-04-17] MEDS: HEPARIN SODIUM, PORCINE 5000 UNITS/1 ML VIAL SQ SCH ×2 (09:00→20:57)
[2019-04-17] MEDS: Z GUARD REMEDY 4 OZ OINT TP SCH ×4 (09:00→20:58)
[2019-04-17] MEDS: FOLIC ACID 1 MG TABLET GT SCH ×2 (09:00→17:50)
[2019-04-17] MEDS: BACLOFEN (10 MG) 10 MG TABLET GT SCH ×3 (09:00→17:50)
[2019-04-17] MEDS: SENNOSIDES 8.6 MG TABLET GT SCH (09:00)
[2019-04-17] MEDS: LEVETIRACETAM SOL (5 ML) 100 MG/ML UDC GT SCH ×2 (09:00→20:56)
[2019-04-17] MEDS: JEVITY 1.2 CAL 1,000 ML BOTTLE GT PRN (12:14)
[2019-04-17] MEDS: HYDROGEN PEROXIDE 480 ML BOTTLE TP SCH ×2 (16:48→20:02)
--- NOTE | 2019-04-17 20:12 | NUR ---
RT NOTE: RECEIVED TRACH PT ON COOL AEROSOL. AMBU BAG @ BEDSIDE. Q6 BREATHING TX GIVEN PER MD ORDERS WITH NO ADVERSE REACTION NOTED. SX DONE PRN. TRACH PATENT AND SECURED. TRACH CARE DONE. NO RESP DISTRESS NOTED AT THIS TIME. WILL CONTINUE TO MONITOR PT. Addendum: 04/18/19 at 0238 by DOV GREENBERG RT Amended: Links added.
[2019-04-17 20:20] VITALS: BP 127/82
[2019-04-17] MEDS: POLYETHYLENE GLYCOL 3350 17 GM POWD.PACK GT SCH (21:42)
[2019-04-18] MEDS: POLYVINYL ALCOHOL 15 ML BOTTLE EACHEYE SCH ×4 (00:29→18:18)
[2019-04-18] MEDS: ALBUTEROL FS 2.5 MG/3 ML VIAL.NEB NEB SCH ×4 (01:59→19:51)
[2019-04-18] MEDS: MYCOPHENOLATE MOFETIL SUSP 500 MG/2.5 ML UDC GT SCH ×2 (05:49→18:19)
[2019-04-18] MEDS: CHLORHEXIDINE GLUCONATE 15 ML UDC MM SCH ×2 (05:49→18:19)
[2019-04-18] MEDS: JEVITY 1.2 CAL 1,000 ML BOTTLE GT PRN ×2 (05:50→22:02)
[2019-04-18 07:51] VITALS: BP 130/74
--- NOTE | 2019-04-18 08:48 | NUR ---
RT NOTE: REC'D TRACH PT ON COOL AEROSOL. RENU BAG @ BEDSIDE. Q6 BREATHING TX GIVEN PER MD ORDERS WITH NO ADVERSE REACTION NOTED. SX DONE PRN. TRACH PATENT AND SECURED. TRACH CARE DONE. NO SOB NOTED AT THIS TIME. WILL CONTINUE TO MONITOR. Addendum: 04/18/19 at 0848 by KIMI JAIMES RT Amended: Links added.
[2019-04-18] MEDS: HYDROGEN PEROXIDE 480 ML BOTTLE TP SCH ×2 (09:00→21:00)
[2019-04-18] MEDS: FOLIC ACID 1 MG TABLET GT SCH ×2 (09:33→17:00)
[2019-04-18] MEDS: LEVETIRACETAM SOL (5 ML) 100 MG/ML UDC GT SCH ×2 (09:33→20:07)
[2019-04-18] MEDS: SERTRALINE HCL 25 MG TABLET GT SCH (09:33)
[2019-04-18] MEDS: SENNOSIDES 8.6 MG TABLET GT SCH (09:33)
[2019-04-18] MEDS: BACLOFEN (10 MG) 10 MG TABLET GT SCH ×3 (09:33→17:00)
[2019-04-18] MEDS: HEPARIN SODIUM, PORCINE 5000 UNITS/1 ML VIAL SQ SCH ×2 (09:35→20:06)
[2019-04-18] MEDS: Z GUARD REMEDY 4 OZ OINT TP SCH ×2 (09:48→20:07)
--- NOTE | 2019-04-18 16:15 | NUR ---
Social Service Section of [facility] (2nd quarter) completed. Resident is not communicative but awake. The pt.s father, Dr. Swift calls to check in and daughter, Lisa is involved and supportive. Resident's is not involved and does not visit. Dr. Ivan last saw the resident on 10/26/2017 for a dental exam. She was seen by the park landscape architect Dr. Millan on 03/11/19 for an eye exam and by the tank farm operator Dr. Wolfe on 04/07/19 for nail care.
[2019-04-18 19:47] VITALS: BP 116/82
[2019-04-18] MEDS: POLYETHYLENE GLYCOL 3350 17 GM POWD.PACK GT SCH (21:40)
[2019-04-19] MEDS: POLYVINYL ALCOHOL 15 ML BOTTLE EACHEYE SCH ×5 (00:26→23:14)
[2019-04-19] MEDS: ALBUTEROL FS 2.5 MG/3 ML VIAL.NEB NEB SCH ×4 (00:50→20:17)
[2019-04-19] MEDS: MYCOPHENOLATE MOFETIL SUSP 500 MG/2.5 ML UDC GT SCH ×2 (05:57→18:00)
[2019-04-19] MEDS: CHLORHEXIDINE GLUCONATE 15 ML UDC MM SCH ×2 (05:57→17:59)
[2019-04-19 07:47] VITALS: BP 120/57
[2019-04-19] MEDS: HYDROGEN PEROXIDE 480 ML BOTTLE TP SCH ×2 (08:17→21:00)
--- NOTE | 2019-04-19 08:29 | NUR ---
SW left voicemail reminder for pt.s daughter Lisa Geoff [phone] regarding family support group taking place 04/20/19 from 11am-12pm.
[2019-04-19] MEDS: BACLOFEN (10 MG) 10 MG TABLET GT SCH ×3 (09:47→17:59)
[2019-04-19] MEDS: SENNOSIDES 8.6 MG TABLET GT SCH (09:47)
[2019-04-19] MEDS: FOLIC ACID 1 MG TABLET GT SCH ×2 (09:47→17:59)
[2019-04-19] MEDS: LEVETIRACETAM SOL (5 ML) 100 MG/ML UDC GT SCH ×2 (09:47→20:05)
[2019-04-19] MEDS: SERTRALINE HCL 25 MG TABLET GT SCH (09:47)
[2019-04-19] MEDS: HEPARIN SODIUM, PORCINE 5000 UNITS/1 ML VIAL SQ SCH ×2 (09:47→20:06)
[2019-04-19] MEDS: Z GUARD REMEDY 4 OZ OINT TP SCH ×2 (09:48→20:06)
[2019-04-19 20:43] VITALS: BP 122/74
[2019-04-19] MEDS: POLYETHYLENE GLYCOL 3350 17 GM POWD.PACK GT SCH (21:41)
--- NOTE | 2019-04-19 23:02 | NUR ---
RT NOTE PT RECEIVED TRACHED ON COOL AEROSOL @ 28%. PORTEX [address] AMBU BAG/BACK UP TRACH @ BEDSIDE. TX GIVEN, NO ADVERSE REACTIONS NOTED. SX DONE, TRACH SECURED AND PATENT. WATER LEVEL GOOD. NO SOB NOTED. WILL MONITOR T/O SHIFT. Addendum: 04/19/19 at 2303 by ALBERTA DON RT Amended: Links added.
[2019-04-20] MEDS: ALBUTEROL FS 2.5 MG/3 ML VIAL.NEB NEB SCH ×4 (02:22→19:51)
[2019-04-20] MEDS: MYCOPHENOLATE MOFETIL SUSP 500 MG/2.5 ML UDC GT SCH ×2 (05:48→17:47)
[2019-04-20] MEDS: POLYVINYL ALCOHOL 15 ML BOTTLE EACHEYE SCH ×3 (05:48→17:47)
[2019-04-20] MEDS: CHLORHEXIDINE GLUCONATE 15 ML UDC MM SCH ×2 (05:48→17:47)
[2019-04-20 07:50] VITALS: BP 94/69
[2019-04-20] MEDS: HYDROGEN PEROXIDE 480 ML BOTTLE TP SCH ×2 (08:05→19:51)
[2019-04-20] MEDS: LEVETIRACETAM SOL (5 ML) 100 MG/ML UDC GT SCH ×2 (09:57→20:15)
[2019-04-20] MEDS: HEPARIN SODIUM, PORCINE 5000 UNITS/1 ML VIAL SQ SCH ×2 (09:57→20:16)
[2019-04-20] MEDS: SERTRALINE HCL 25 MG TABLET GT SCH (09:57)
[2019-04-20] MEDS: Z GUARD REMEDY 4 OZ OINT TP SCH ×2 (09:57→20:16)
[2019-04-20] MEDS: SENNOSIDES 8.6 MG TABLET GT SCH (09:57)
[2019-04-20] MEDS: FOLIC ACID 1 MG TABLET GT SCH ×2 (09:57→17:47)
[2019-04-20] MEDS: BACLOFEN (10 MG) 10 MG TABLET GT SCH ×3 (09:57→17:47)
[2019-04-20 19:40] VITALS: BP 116/64
--- NOTE | 2019-04-20 20:01 | NUR ---
RT NOTE: RECEIVED TRACH PT ON COOL AEROSOL. AMBU BAG @ BEDSIDE. Q6 BREATHING TX GIVEN PER MD ORDERS WITH NO ADVERSE REACTION NOTED. SX DONE PRN. TRACH PATENT AND SECURED. TRACH CARE DONE. NO RESP DISTRESS NOTED AT THIS TIME. WILL CONTINUE TO MONITOR PT. Addendum: 04/21/19 at 0235 by DOV GREENBERG RT Amended: Links added.
[2019-04-20] MEDS: POLYETHYLENE GLYCOL 3350 17 GM POWD.PACK GT SCH (22:04)
[2019-04-21] MEDS: POLYVINYL ALCOHOL 15 ML BOTTLE EACHEYE SCH ×5 (00:38→23:02)
[2019-04-21] MEDS: ALBUTEROL FS 2.5 MG/3 ML VIAL.NEB NEB SCH ×4 (01:40→20:06)
[2019-04-21] MEDS: CHLORHEXIDINE GLUCONATE 15 ML UDC MM SCH ×2 (05:16→17:25)
[2019-04-21] MEDS: JEVITY 1.2 CAL 1,000 ML BOTTLE GT PRN (05:16)
[2019-04-21] MEDS: MYCOPHENOLATE MOFETIL SUSP 500 MG/2.5 ML UDC GT SCH ×2 (05:16→17:25)
[2019-04-21 07:55] VITALS: BP 120/47
--- NOTE | 2019-04-21 08:45 | NUR ---
Seen and examined by Dr. Aguilar NNO given at this time.
[2019-04-21] MEDS: Z GUARD REMEDY 4 OZ OINT TP SCH ×2 (09:00→20:38)
[2019-04-21] MEDS: SERTRALINE HCL 25 MG TABLET GT SCH (09:00)
[2019-04-21] MEDS: SENNOSIDES 8.6 MG TABLET GT SCH (09:00)
[2019-04-21] MEDS: FOLIC ACID 1 MG TABLET GT SCH ×2 (09:00→17:24)
[2019-04-21] MEDS: LEVETIRACETAM SOL (5 ML) 100 MG/ML UDC GT SCH ×2 (09:00→20:37)
[2019-04-21] MEDS: HEPARIN SODIUM, PORCINE 5000 UNITS/1 ML VIAL SQ SCH ×2 (09:00→20:38)
[2019-04-21] MEDS: BACLOFEN (10 MG) 10 MG TABLET GT SCH ×3 (09:00→17:24)
--- NOTE | 2019-04-21 09:10 | NUR ---
RT NOTE: REC'D TRACH PT ON COOL AEROSOL. AMBU BAG @ BEDSIDE. Q6 BREATHING TX GIVEN PER MD ORDERS W NO ADVERSE REACTION NOTED. SX DONE PRN. TRACH PATENT AND SECURED. TRACH CARE DONE. NO RESP DISTRESS NOTED AT THIS TIME. WILL CONTINUE TO MONITOR. Addendum: 04/21/19 at 0911 by KIMI JAIMES RT Amended: Links added.
[2019-04-21] MEDS: HYDROGEN PEROXIDE 480 ML BOTTLE TP SCH ×2 (09:17→20:06)
--- NOTE | 2019-04-21 16:23 | NUR ---
April Family Support Group: Patient's family was unable to attend. SW will invite family to the May Family Support Group.
--- NOTE | 2019-04-21 19:25 | NUR ---
Seen and examined by HA LUCERO.
[2019-04-21 19:30] VITALS: BP 114/67
--- NOTE | 2019-04-21 20:16 | NUR ---
RT NOTE: RECEIVED TRACH PT ON COOL AEROSOL. AMBU BAG @ BEDSIDE. Q6 BREATHING TX GIVEN PER MD ORDERS WITH NO ADVERSE REACTION NOTED. SX DONE PRN. TRACH PATENT AND SECURED. TRACH CARE DONE. NO RESP DISTRESS NOTED AT THIS TIME. WILL CONTINUE TO MONITOR PT Addendum: 04/22/19 at 0212 by DOV GREENBERG RT Amended: Links added.
[2019-04-21] MEDS: POLYETHYLENE GLYCOL 3350 17 GM POWD.PACK GT SCH (21:14)
[2019-04-22] MEDS: JEVITY 1.2 CAL 1,000 ML BOTTLE GT PRN ×2 (00:09→17:07)
[2019-04-22] MEDS: ALBUTEROL FS 2.5 MG/3 ML VIAL.NEB NEB SCH ×4 (01:30→20:28)
[2019-04-22] MEDS: MYCOPHENOLATE MOFETIL SUSP 500 MG/2.5 ML UDC GT SCH ×2 (05:03→17:07)
[2019-04-22] MEDS: POLYVINYL ALCOHOL 15 ML BOTTLE EACHEYE SCH ×4 (05:03→23:45)
[2019-04-22] MEDS: CHLORHEXIDINE GLUCONATE 15 ML UDC MM SCH ×2 (05:03→17:07)
[2019-04-22 07:42] VITALS: BP 137/72
[2019-04-22] MEDS: HYDROGEN PEROXIDE 480 ML BOTTLE TP SCH ×2 (09:11→20:54)
[2019-04-22] MEDS: SENNOSIDES 8.6 MG TABLET GT SCH (09:53)
[2019-04-22] MEDS: BACLOFEN (10 MG) 10 MG TABLET GT SCH ×3 (09:53→16:50)
[2019-04-22] MEDS: LEVETIRACETAM SOL (5 ML) 100 MG/ML UDC GT SCH ×2 (09:53→20:54)
[2019-04-22] MEDS: SERTRALINE HCL 25 MG TABLET GT SCH (09:53)
[2019-04-22] MEDS: FOLIC ACID 1 MG TABLET GT SCH ×2 (09:53→16:50)
[2019-04-22] MEDS: Z GUARD REMEDY 4 OZ OINT TP SCH ×2 (09:54→20:54)
[2019-04-22] MEDS: HEPARIN SODIUM, PORCINE 5000 UNITS/1 ML VIAL SQ SCH ×2 (09:54→20:54)
[2019-04-22] MEDS ORDERED: INFLUENZA VACCINE 2019-20 0.5 ML DISP.SYRIN IM ONE (10:00)
--- NOTE | 2019-04-22 11:35 | NUR ---
Invitation to Family for April IDT : 9 am--HILTON left voicemail for Lisa voicemail inviting family to attend the IDT Plan of Care Conference meeting on 04/29/19 from 12:30pm-12:30pm in the activities room. HILTON also contacted patient father Darrel Swift [phone] and left a voicemail. 11:35amSW received a call from Lisa stating that she can participate in the IDT meeting 04/29/19 via phone conference. Noted.
--- NOTE | 2019-04-22 17:40 | NUR ---
RT PATIENT WAS RECEIVED ON 28% COOL AEROSOL . AIRWAY PATENT AND SECURED. PATIENT STABLE THROUGHOUT THE SHIFT. WILL CONTINUE TO MONITOR. Addendum: 04/22/19 at 1740 by ELIAZAR GOMES RT Amended: Links added.
[2019-04-22] MEDS: POLYETHYLENE GLYCOL 3350 17 GM POWD.PACK GT SCH (21:02)
[2019-04-23] MEDS: ALBUTEROL FS 2.5 MG/3 ML VIAL.NEB NEB SCH ×4 (01:30→20:07)
[2019-04-23] MEDS: JEVITY 1.2 CAL 1,000 ML BOTTLE GT PRN ×2 (04:45→20:48)
[2019-04-23] MEDS: POLYVINYL ALCOHOL 15 ML BOTTLE EACHEYE SCH ×4 (05:09→23:23)
[2019-04-23] MEDS: MYCOPHENOLATE MOFETIL SUSP 500 MG/2.5 ML UDC GT SCH ×2 (05:09→17:05)
[2019-04-23] MEDS: CHLORHEXIDINE GLUCONATE 15 ML UDC MM SCH ×2 (05:09→17:04)
[2019-04-23 07:33] VITALS: BP 108/54
[2019-04-23] MEDS: FOLIC ACID 1 MG TABLET GT SCH ×2 (08:23→16:15)
[2019-04-23] MEDS: BACLOFEN (10 MG) 10 MG TABLET GT SCH ×3 (08:24→16:16)
[2019-04-23] MEDS: LEVETIRACETAM SOL (5 ML) 100 MG/ML UDC GT SCH ×2 (08:24→20:06)
[2019-04-23] MEDS: SENNOSIDES 8.6 MG TABLET GT SCH (08:25)
[2019-04-23] MEDS: SERTRALINE HCL 25 MG TABLET GT SCH (08:25)
[2019-04-23] MEDS: Z GUARD REMEDY 4 OZ OINT TP SCH ×2 (08:26→20:07)
[2019-04-23] MEDS: HYDROGEN PEROXIDE 480 ML BOTTLE TP SCH ×2 (08:26→20:06)
[2019-04-23] MEDS: HEPARIN SODIUM, PORCINE 5000 UNITS/1 ML VIAL SQ SCH ×2 (08:27→20:06)
--- NOTE | 2019-04-23 15:12 | NUR ---
No adverse reactions to flu vaccine noted.
--- NOTE | 2019-04-23 18:48 | NUR ---
RN NOTE PT HAS BEEN AFEBRILE THROUGHOUT SHIFT
[2019-04-23 20:05] VITALS: BP 123/64
[2019-04-23] MEDS: POLYETHYLENE GLYCOL 3350 17 GM POWD.PACK GT SCH (21:05)
[2019-04-24] MEDS: ALBUTEROL FS 2.5 MG/3 ML VIAL.NEB NEB SCH ×4 (01:50→19:46)
[2019-04-24] MEDS: CHLORHEXIDINE GLUCONATE 15 ML UDC MM SCH ×2 (05:36→17:37)
[2019-04-24] MEDS: POLYVINYL ALCOHOL 15 ML BOTTLE EACHEYE SCH ×3 (05:36→17:37)
[2019-04-24] MEDS: MYCOPHENOLATE MOFETIL SUSP 500 MG/2.5 ML UDC GT SCH ×2 (05:36→17:37)
[2019-04-24 07:28] VITALS: BP 132/83
[2019-04-24] MEDS: BACLOFEN (10 MG) 10 MG TABLET GT SCH ×3 (09:00→16:32)
[2019-04-24] MEDS: FOLIC ACID 1 MG TABLET GT SCH ×2 (09:00→16:32)
[2019-04-24] MEDS: SENNOSIDES 8.6 MG TABLET GT SCH (09:00)
[2019-04-24] MEDS: Z GUARD REMEDY 4 OZ OINT TP SCH ×2 (09:00→21:20)
[2019-04-24] MEDS: LEVETIRACETAM SOL (5 ML) 100 MG/ML UDC GT SCH ×2 (09:00→21:20)
[2019-04-24] MEDS: SERTRALINE HCL 25 MG TABLET GT SCH (09:00)
[2019-04-24] MEDS: HEPARIN SODIUM, PORCINE 5000 UNITS/1 ML VIAL SQ SCH ×2 (09:00→21:20)
[2019-04-24] MEDS: HYDROGEN PEROXIDE 480 ML BOTTLE TP SCH ×2 (09:25→21:10)
[2019-04-24] MEDS: JEVITY 1.2 CAL 1,000 ML BOTTLE GT PRN (16:22)
[2019-04-24 20:07] VITALS: BP 119/72
--- NOTE | 2019-04-24 21:04 | NUR ---
RN NOTES S/P flu vaccine with no A/R noted. Will continue to monitor.
[2019-04-24] MEDS: POLYETHYLENE GLYCOL 3350 17 GM POWD.PACK GT SCH (21:20)
[2019-04-25] MEDS: ALBUTEROL FS 2.5 MG/3 ML VIAL.NEB NEB SCH ×4 (01:59→19:21)
[2019-04-25] MEDS: POLYVINYL ALCOHOL 15 ML BOTTLE EACHEYE SCH ×5 (03:17→23:38)
[2019-04-25] MEDS: MYCOPHENOLATE MOFETIL SUSP 500 MG/2.5 ML UDC GT SCH ×2 (05:17→17:12)
[2019-04-25] MEDS: CHLORHEXIDINE GLUCONATE 15 ML UDC MM SCH ×2 (05:17→17:12)
--- NOTE | 2019-04-25 05:53 | NUR ---
RT PATIENT WAS RECEIVED ON 28% COOL AEROSOL . AIRWAY PATENT AND SECURED. PATIENT STABLE THROUGHOUT THE SHIFT. WILL CONTINUE TO MONITOR. Addendum: 04/25/19 at 0553 by ELIAZAR GOMES RT Amended: Links added.
[2019-04-25] MEDS: JEVITY 1.2 CAL 1,000 ML BOTTLE GT PRN (06:31)
--- NOTE | 2019-04-25 08:46 | NUR ---
RT NOTE: REC'D TRACH PT ON COOL AEROSOL. AMBU BAG @ BEDSIDE. Q6 BREATHING TX GIVEN PER MD ORDERS W NO ADVERSE REACTION NOTED. SX DONE PRN. TRACH PATENT AND SECURED. TRACH CARE DONE. NO RESP DISTRESS NOTED AT THIS TIME. WILL CONTINUE TO MONITOR. Addendum: 04/25/19 at 0846 by KIMI JAIMES RT Amended: Links added.
[2019-04-25] MEDS: HYDROGEN PEROXIDE 480 ML BOTTLE TP SCH ×2 (09:00→21:00)
[2019-04-25] MEDS: HEPARIN SODIUM, PORCINE 5000 UNITS/1 ML VIAL SQ SCH ×2 (09:00→20:07)
[2019-04-25] MEDS: Z GUARD REMEDY 4 OZ OINT TP SCH ×2 (09:00→20:07)
[2019-04-25 09:52] VITALS: BP 117/58
[2019-04-25] MEDS: BACLOFEN (10 MG) 10 MG TABLET GT SCH ×3 (09:59→16:18)
[2019-04-25] MEDS: LEVETIRACETAM SOL (5 ML) 100 MG/ML UDC GT SCH ×2 (09:59→20:06)
[2019-04-25] MEDS: SERTRALINE HCL 25 MG TABLET GT SCH (09:59)
[2019-04-25] MEDS: FOLIC ACID 1 MG TABLET GT SCH ×2 (09:59→16:18)
[2019-04-25] MEDS: SENNOSIDES 8.6 MG TABLET GT SCH (09:59)
--- NOTE | 2019-04-25 12:08 | NUR ---
SW called patient's father, Dr. Darrel Swift [phone] to verify if patient's still manages the finances in behalf of the patient. Per Dr. Darrel Swift the patient's , Zeb Tellez [phone] still manages the patient's finances. SW contacted the patient's , Zeb Tellez [phone] to discuss share of cost. Call went to voicemail and SW left contact information. SW to follow-up.
--- NOTE | 2019-04-25 16:55 | NUR ---
No adverse reaction to flu vaccine noted.
[2019-04-25 19:48] VITALS: BP 114/80
[2019-04-25] MEDS: POLYETHYLENE GLYCOL 3350 17 GM POWD.PACK GT SCH (21:49)
[2019-04-26] MEDS: ALBUTEROL FS 2.5 MG/3 ML VIAL.NEB NEB SCH ×4 (01:18→19:59)
[2019-04-26] MEDS: CHLORHEXIDINE GLUCONATE 15 ML UDC MM SCH ×2 (05:03→17:46)
[2019-04-26] MEDS: MYCOPHENOLATE MOFETIL SUSP 500 MG/2.5 ML UDC GT SCH ×2 (05:03→17:45)
[2019-04-26] MEDS: POLYVINYL ALCOHOL 15 ML BOTTLE EACHEYE SCH ×4 (05:03→23:54)
[2019-04-26] MEDS: JEVITY 1.2 CAL 1,000 ML BOTTLE GT PRN (05:11)
[2019-04-26] MEDS: HYDROGEN PEROXIDE 480 ML BOTTLE TP SCH ×2 (08:38→19:59)
[2019-04-26] MEDS: SENNOSIDES 8.6 MG TABLET GT SCH (09:15)
[2019-04-26] MEDS: BACLOFEN (10 MG) 10 MG TABLET GT SCH ×3 (09:15→16:36)
[2019-04-26] MEDS: LEVETIRACETAM SOL (5 ML) 100 MG/ML UDC GT SCH ×2 (09:15→20:41)
[2019-04-26] MEDS: SERTRALINE HCL 25 MG TABLET GT SCH (09:15)
[2019-04-26] MEDS: FOLIC ACID 1 MG TABLET GT SCH ×2 (09:15→16:36)
[2019-04-26] MEDS: Z GUARD REMEDY 4 OZ OINT TP SCH ×2 (09:16→20:38)
[2019-04-26] MEDS: HEPARIN SODIUM, PORCINE 5000 UNITS/1 ML VIAL SQ SCH ×2 (09:16→20:50)
[2019-04-26 10:10] VITALS: BP 110/56
--- NOTE | 2019-04-26 16:22 | NUR ---
Referral for Probate Conservatorship Investigation: HILTON faxed Referral for Probate Conservatorship Investigation paperwork to FAX:[phone] per the recommendation of APS worker Toma Wilkins [phone] and received "completed" fax receipt. HILTON consulted with Bone Density Technician Major Case Detective, Anna about the situation at hand. Anna was agreeable that HILTON make referral to Public Guardian.
--- NOTE | 2019-04-26 20:11 | NUR ---
RT NOTE: RECEIVED TRACH PT ON COOL AEROSOL. AMBU BAG @ BEDSIDE. Q6 BREATHING TX GIVEN PER MD ORDERS WITH NO ADVERSE REACTION NOTED. SX DONE PRN. TRACH PATENT AND SECURED. TRACH CARE DONE. NO RESP DISTRESS NOTED AT THIS TIME. WILL CONTINUE TO MONITOR PT Addendum: 04/27/19 at 0309 by DOV GREENBERG RT Amended: Links added.
[2019-04-26 20:16] VITALS: BP 117/77
[2019-04-26] MEDS: POLYETHYLENE GLYCOL 3350 17 GM POWD.PACK GT SCH (22:26)
[2019-04-27] MEDS: ALBUTEROL FS 2.5 MG/3 ML VIAL.NEB NEB SCH ×4 (02:06→19:31)
[2019-04-27] MEDS: JEVITY 1.2 CAL 1,000 ML BOTTLE GT PRN (05:29)
[2019-04-27] MEDS: CHLORHEXIDINE GLUCONATE 15 ML UDC MM SCH ×2 (05:30→18:09)
[2019-04-27] MEDS: MYCOPHENOLATE MOFETIL SUSP 500 MG/2.5 ML UDC GT SCH ×2 (05:32→18:09)
[2019-04-27] MEDS: POLYVINYL ALCOHOL 15 ML BOTTLE EACHEYE SCH ×4 (05:33→23:41)
[2019-04-27 07:42] VITALS: BP 120/89
[2019-04-27] MEDS: HYDROGEN PEROXIDE 480 ML BOTTLE TP SCH ×2 (07:49→21:00)
[2019-04-27] MEDS: SERTRALINE HCL 25 MG TABLET GT SCH (09:37)
[2019-04-27] MEDS: LEVETIRACETAM SOL (5 ML) 100 MG/ML UDC GT SCH ×2 (09:37→20:18)
[2019-04-27] MEDS: FOLIC ACID 1 MG TABLET GT SCH ×2 (09:37→17:00)
[2019-04-27] MEDS: HEPARIN SODIUM, PORCINE 5000 UNITS/1 ML VIAL SQ SCH ×2 (09:37→20:19)
[2019-04-27] MEDS: SENNOSIDES 8.6 MG TABLET GT SCH (09:37)
[2019-04-27] MEDS: Z GUARD REMEDY 4 OZ OINT TP SCH ×2 (09:37→20:19)
[2019-04-27] MEDS: BACLOFEN (10 MG) 10 MG TABLET GT SCH ×3 (09:37→17:00)
--- NOTE | 2019-04-27 16:29 | NUR ---
HILTON followed-up and called the patients responsible libertarian/son, Dr. Johnson [phone] to discuss the share of cost owed to [facility] and the payment options available (i.e. Resident Trust Fund). Per Zeb, he is no longer receiving funds for the pt. and is not interested in having [facility] create a Resident Trust Fund. Per Zeb, when there was a share of cost, the residents expenses (i.e. House, car, personal hygiene etc.) exceeded the SS benefits received and he was unable to pay the share of cost. HILTON validated his struggle and encouraged Zeb to contact the [facility] business office [phone] to arrange a payment plan. Zeb was agreeable to plan . Addendum: 05/19/19 at 1140 by YUN CANELA HILTON followed-up and called the patients responsible libertarian/, eZb Geoff [phone] to discuss the share of cost owed to [facility] and the payment options available (i.e. Resident Trust Fund).
[2019-04-27 20:26] VITALS: BP 116/62
[2019-04-27] MEDS: POLYETHYLENE GLYCOL 3350 17 GM POWD.PACK GT SCH (22:13)
[2019-04-28] MEDS: ALBUTEROL FS 2.5 MG/3 ML VIAL.NEB NEB SCH ×4 (00:31→19:30)
[2019-04-28] MEDS: JEVITY 1.2 CAL 1,000 ML BOTTLE GT PRN ×2 (01:32→19:05)
[2019-04-28] MEDS: MYCOPHENOLATE MOFETIL SUSP 500 MG/2.5 ML UDC GT SCH ×2 (05:05→17:54)
[2019-04-28] MEDS: POLYVINYL ALCOHOL 15 ML BOTTLE EACHEYE SCH ×3 (05:05→17:54)
[2019-04-28] MEDS: CHLORHEXIDINE GLUCONATE 15 ML UDC MM SCH ×2 (05:05→17:54)
[2019-04-28 07:33] VITALS: BP 124/85
[2019-04-28] MEDS: HYDROGEN PEROXIDE 480 ML BOTTLE TP SCH ×2 (08:30→21:48)
[2019-04-28] MEDS: SENNOSIDES 8.6 MG TABLET GT SCH (08:40)
[2019-04-28] MEDS: BACLOFEN (10 MG) 10 MG TABLET GT SCH ×3 (08:40→17:54)
[2019-04-28] MEDS: LEVETIRACETAM SOL (5 ML) 100 MG/ML UDC GT SCH ×2 (08:40→21:01)
[2019-04-28] MEDS: SERTRALINE HCL 25 MG TABLET GT SCH (08:40)
[2019-04-28] MEDS: FOLIC ACID 1 MG TABLET GT SCH ×2 (08:41→17:54)
[2019-04-28] MEDS: Z GUARD REMEDY 4 OZ OINT TP SCH ×2 (08:41→21:01)
[2019-04-28] MEDS: HEPARIN SODIUM, PORCINE 5000 UNITS/1 ML VIAL SQ SCH ×2 (08:51→21:01)
[2019-04-28] MEDS: POLYETHYLENE GLYCOL 3350 17 GM POWD.PACK GT SCH (21:02)
[2019-04-28 22:40] VITALS: BP 110/59
[2019-04-29] MEDS: POLYVINYL ALCOHOL 15 ML BOTTLE EACHEYE SCH ×4 (00:45→16:47)
[2019-04-29] MEDS: ALBUTEROL FS 2.5 MG/3 ML VIAL.NEB NEB SCH ×4 (01:44→20:02)
[2019-04-29] MEDS: CHLORHEXIDINE GLUCONATE 15 ML UDC MM SCH ×2 (05:29→18:19)
[2019-04-29] MEDS: MYCOPHENOLATE MOFETIL SUSP 500 MG/2.5 ML UDC GT SCH ×2 (05:29→18:19)
[2019-04-29 07:58] VITALS: BP 125/66
[2019-04-29] MEDS: Z GUARD REMEDY 4 OZ OINT TP SCH ×2 (09:00→21:17)
[2019-04-29] MEDS: SENNOSIDES 8.6 MG TABLET GT SCH (09:04)
[2019-04-29] MEDS: FOLIC ACID 1 MG TABLET GT SCH ×2 (09:04→16:41)
[2019-04-29] MEDS: SERTRALINE HCL 25 MG TABLET GT SCH (09:04)
[2019-04-29] MEDS: LEVETIRACETAM SOL (5 ML) 100 MG/ML UDC GT SCH ×2 (09:04→21:16)
[2019-04-29] MEDS: BACLOFEN (10 MG) 10 MG TABLET GT SCH ×3 (09:04→16:41)
[2019-04-29] MEDS: HEPARIN SODIUM, PORCINE 5000 UNITS/1 ML VIAL SQ SCH ×2 (09:05→21:17)
[2019-04-29] MEDS: HYDROGEN PEROXIDE 480 ML BOTTLE TP SCH ×2 (09:12→21:35)
[2019-04-29] MEDS: JEVITY 1.2 CAL 1,000 ML BOTTLE GT PRN (13:12)
--- NOTE | 2019-04-29 14:00 | NUR ---
INTERDISCIPLINARY TEAM CONFERENCE (IDT) was held today. Resident's daughter participated today's IDT meeting via phone conference. Dr. Lubin and the interdisciplinary team reviewed the current plan of care in detail. Orders as well as treatment and medications were reviewed. It was brought up in the meeting that resident is no longer using her customized wheelchair due to severe lower extremity contractures. Patient's knee is hitting the wheelchair's arm rest during transfer and even when patient is sitting down. She no longer appear comfortable sitting in her own wheelchair. Will refer the matter with Dr. Aguilar.
--- NOTE | 2019-04-29 14:35 | NUR ---
April INTERDISCIPLINARY PLAN OF CARE CONFERENCE took place today. The patients responsible constitution party/ daughter, Lisa Tellez [phone] participated via phone conference. Lisa requested that pt.s hair be trimmed. HILTON will follow up. Charge nurse communicated that Botox Tx for pt.s contracted limbs will be discussed with Dr. Elton Aguilar as it has helped with the pt.s transfer to wheelchair; flu vaccine given on 04/22/19. Dr. Lubin and Interdisciplinary team discussed the plan of care in detail. NNO. Current orders as well as treatments and medications were reviewed. Please see other disciplines IDT notes for further details.
--- NOTE | 2019-04-29 18:08 | NUR ---
RT PATIENT WAS RECEIVED ON 28% COOL AEROSOL . HHN TREATMENT WAS GIVEN, NO ADVERSE REACTION NOTED.AIRWAY PATENT AND SECURED. PATIENT STABLE THROUGHOUT THE SHIFT. WILL CONTINUE TO MONITOR. Addendum: 04/29/19 at 1808 by ELIAZAR GOMES RT Amended: Links added.
[2019-04-29 20:30] VITALS: BP 128/52
[2019-04-29] MEDS: POLYETHYLENE GLYCOL 3350 17 GM POWD.PACK GT SCH (21:17)
[2019-04-30] MEDS: ALBUTEROL FS 2.5 MG/3 ML VIAL.NEB NEB SCH ×4 (00:37→20:32)
[2019-04-30] MEDS: POLYVINYL ALCOHOL 15 ML BOTTLE EACHEYE SCH ×5 (00:42→23:35)
[2019-04-30] MEDS: MYCOPHENOLATE MOFETIL SUSP 500 MG/2.5 ML UDC GT SCH ×2 (05:19→18:23)
[2019-04-30] MEDS: CHLORHEXIDINE GLUCONATE 15 ML UDC MM SCH ×2 (05:19→18:23)
[2019-04-30] MEDS: JEVITY 1.2 CAL 1,000 ML BOTTLE GT PRN ×2 (05:19→20:40)
[2019-04-30 08:24] VITALS: BP 110/65
[2019-04-30] MEDS: HYDROGEN PEROXIDE 480 ML BOTTLE TP SCH ×2 (09:39→21:00)
[2019-04-30] MEDS: Z GUARD REMEDY 4 OZ OINT TP SCH ×2 (09:42→21:00)
[2019-04-30] MEDS: SENNOSIDES 8.6 MG TABLET GT SCH (09:42)
[2019-04-30] MEDS: LEVETIRACETAM SOL (5 ML) 100 MG/ML UDC GT SCH ×2 (09:42→21:00)
[2019-04-30] MEDS: FOLIC ACID 1 MG TABLET GT SCH ×2 (09:42→17:00)
[2019-04-30] MEDS: HEPARIN SODIUM, PORCINE 5000 UNITS/1 ML VIAL SQ SCH ×2 (09:42→21:00)
[2019-04-30] MEDS: BACLOFEN (10 MG) 10 MG TABLET GT SCH ×3 (09:42→17:00)
[2019-04-30] MEDS: SERTRALINE HCL 25 MG TABLET GT SCH (09:42)
--- NOTE | 2019-04-30 14:40 | NUR ---
Seen and examined by Dr. Aguilar, reported that staff has difficulty putting patient in her customized wheelchair due to severe contracture of the lower extremities. Asked if he will consider Botox injection again. He said Botox injection did not help the patient but gave an order for ortho consult to do tendon release. Dr. Aguilar said that it is impacting the patient's quality of life that she cannot sit in her own wheelchair anymore. Order carried out and endorsed to notify ortho on Thursday.
[2019-04-30 20:40] VITALS: BP 129/65
[2019-04-30] MEDS: POLYETHYLENE GLYCOL 3350 17 GM POWD.PACK GT SCH (22:30)
[2019-05-01] MEDS: ALBUTEROL FS 2.5 MG/3 ML VIAL.NEB NEB SCH ×4 (01:55→19:31)
[2019-05-01] MEDS: MYCOPHENOLATE MOFETIL SUSP 500 MG/2.5 ML UDC GT SCH ×2 (06:14→17:51)
[2019-05-01] MEDS: CHLORHEXIDINE GLUCONATE 15 ML UDC MM SCH ×2 (06:14→17:51)
[2019-05-01] MEDS: POLYVINYL ALCOHOL 15 ML BOTTLE EACHEYE SCH ×3 (06:14→17:51)
[2019-05-01 08:21] VITALS: BP 148/94
[2019-05-01] MEDS: LEVETIRACETAM SOL (5 ML) 100 MG/ML UDC GT SCH ×2 (09:00→20:54)
[2019-05-01] MEDS: HYDROGEN PEROXIDE 480 ML BOTTLE TP SCH ×2 (09:00→21:00)
[2019-05-01] MEDS: BACLOFEN (10 MG) 10 MG TABLET GT SCH ×3 (09:00→16:27)
[2019-05-01] MEDS: Z GUARD REMEDY 4 OZ OINT TP SCH ×2 (09:00→20:56)
[2019-05-01] MEDS: FOLIC ACID 1 MG TABLET GT SCH ×2 (09:00→16:27)
[2019-05-01] MEDS: SENNOSIDES 8.6 MG TABLET GT SCH (09:00)
[2019-05-01] MEDS: SERTRALINE HCL 25 MG TABLET GT SCH (09:00)
[2019-05-01] MEDS: HEPARIN SODIUM, PORCINE 5000 UNITS/1 ML VIAL SQ SCH ×2 (09:00→20:55)
[2019-05-01] MEDS: JEVITY 1.2 CAL 1,000 ML BOTTLE GT PRN (15:23)
[2019-05-01 20:34] VITALS: BP 121/72
[2019-05-01] MEDS: POLYETHYLENE GLYCOL 3350 17 GM POWD.PACK GT SCH (21:43)
[2019-05-02] MEDS: POLYVINYL ALCOHOL 15 ML BOTTLE EACHEYE SCH ×5 (00:15→23:31)
[2019-05-02] MEDS: ALBUTEROL FS 2.5 MG/3 ML VIAL.NEB NEB SCH ×4 (01:18→19:17)
[2019-05-02] MEDS: MYCOPHENOLATE MOFETIL SUSP 500 MG/2.5 ML UDC GT SCH ×2 (05:26→18:15)
[2019-05-02] MEDS: CHLORHEXIDINE GLUCONATE 15 ML UDC MM SCH ×2 (05:26→18:15)
[2019-05-02] MEDS: JEVITY 1.2 CAL 1,000 ML BOTTLE GT PRN (05:57)
[2019-05-02 07:50] VITALS: BP 124/73
[2019-05-02] MEDS: HYDROGEN PEROXIDE 480 ML BOTTLE TP SCH ×2 (08:34→19:17)
[2019-05-02] MEDS: FOLIC ACID 1 MG TABLET GT SCH ×2 (08:49→16:25)
[2019-05-02] MEDS: BACLOFEN (10 MG) 10 MG TABLET GT SCH ×3 (08:49→16:25)
[2019-05-02] MEDS: SERTRALINE HCL 25 MG TABLET GT SCH (08:49)
[2019-05-02] MEDS: LEVETIRACETAM SOL (5 ML) 100 MG/ML UDC GT SCH ×2 (08:49→20:05)
[2019-05-02] MEDS: SENNOSIDES 8.6 MG TABLET GT SCH (08:49)
[2019-05-02] MEDS: HEPARIN SODIUM, PORCINE 5000 UNITS/1 ML VIAL SQ SCH ×2 (08:50→20:05)
[2019-05-02] MEDS: Z GUARD REMEDY 4 OZ OINT TP SCH ×2 (09:00→20:06)
--- NOTE | 2019-05-02 15:30 | NUR ---
Called Dr Boyle's office and left message to see pt for ortho consult.
[2019-05-02 20:07] VITALS: BP 113/64
[2019-05-02] MEDS: POLYETHYLENE GLYCOL 3350 17 GM POWD.PACK GT SCH (22:19)
[2019-05-03] MEDS: ALBUTEROL FS 2.5 MG/3 ML VIAL.NEB NEB SCH ×4 (01:59→20:14)
--- NOTE | 2019-05-03 04:33 | NUR ---
PATIENT RECEIVED ON 28% AEROSOL T-TUBE, TOLERATING WITH NO DISTRESS/SOB NOTED. SUCTIONED WITH LAVAGE FOR MINIMAL, THIN, YELLOW SECRETIONS. GIVEN IN-LINE TREATMENTS WITH NO ADVERSE REACTIONS. AMBU BAG AT BEDSIDE. Addendum: 05/03/19 at 0434 by JANAY CANCINO RT Amended: Links added.
[2019-05-03] MEDS: CHLORHEXIDINE GLUCONATE 15 ML UDC MM SCH ×2 (05:09→17:31)
[2019-05-03] MEDS: MYCOPHENOLATE MOFETIL SUSP 500 MG/2.5 ML UDC GT SCH ×2 (05:09→17:31)
[2019-05-03] MEDS: POLYVINYL ALCOHOL 15 ML BOTTLE EACHEYE SCH ×4 (05:09→23:08)
[2019-05-03] MEDS: SERTRALINE HCL 25 MG TABLET GT SCH (08:19)
[2019-05-03] MEDS: LEVETIRACETAM SOL (5 ML) 100 MG/ML UDC GT SCH ×2 (08:19→20:04)
[2019-05-03] MEDS: BACLOFEN (10 MG) 10 MG TABLET GT SCH ×3 (08:19→16:37)
[2019-05-03] MEDS: SENNOSIDES 8.6 MG TABLET GT SCH (08:19)
[2019-05-03] MEDS: FOLIC ACID 1 MG TABLET GT SCH ×2 (08:19→16:37)
[2019-05-03] MEDS: HEPARIN SODIUM, PORCINE 5000 UNITS/1 ML VIAL SQ SCH ×2 (08:27→20:05)
[2019-05-03] MEDS: HYDROGEN PEROXIDE 480 ML BOTTLE TP SCH ×2 (08:47→20:32)
[2019-05-03] MEDS: Z GUARD REMEDY 4 OZ OINT TP SCH ×2 (09:00→20:05)
[2019-05-03 11:56] VITALS: BP 122/70
[2019-05-03 20:15] VITALS: BP 113/73
--- NOTE | 2019-05-03 21:29 | NUR ---
RT NOTE PT RECEIVED ON COOL AEROSOL @ 28%. AMBU BAG/BACK UP TRACH @ BEDSIDE. TX GIVEN, NO ADVERSE REACTIONS NOTED. SX DONE, TRACH SECURED AND PATENT. NO SOB NOTED. WATER LEVEL GOOD. WILL MONITOR T/O SHIFT. Addendum: 05/03/19 at 2131 by ALBERTA DON RT Amended: Links added.
[2019-05-03] MEDS: POLYETHYLENE GLYCOL 3350 17 GM POWD.PACK GT SCH (22:02)
[2019-05-04] MEDS: JEVITY 1.2 CAL 1,000 ML BOTTLE GT PRN ×2 (01:15→15:27)
[2019-05-04] MEDS: ALBUTEROL FS 2.5 MG/3 ML VIAL.NEB NEB SCH ×4 (01:41→19:18)
[2019-05-04] MEDS: CHLORHEXIDINE GLUCONATE 15 ML UDC MM SCH ×2 (05:28→17:40)
[2019-05-04] MEDS: MYCOPHENOLATE MOFETIL SUSP 500 MG/2.5 ML UDC GT SCH ×2 (05:28→17:39)
[2019-05-04] MEDS: POLYVINYL ALCOHOL 15 ML BOTTLE EACHEYE SCH ×4 (05:28→23:42)
[2019-05-04 07:48] VITALS: BP 117/80
[2019-05-04] MEDS: HYDROGEN PEROXIDE 480 ML BOTTLE TP SCH ×2 (08:08→21:00)
[2019-05-04] MEDS: LEVETIRACETAM SOL (5 ML) 100 MG/ML UDC GT SCH ×2 (09:11→20:03)
[2019-05-04] MEDS: FOLIC ACID 1 MG TABLET GT SCH ×2 (09:11→17:39)
[2019-05-04] MEDS: BACLOFEN (10 MG) 10 MG TABLET GT SCH ×3 (09:11→17:39)
[2019-05-04] MEDS: SERTRALINE HCL 25 MG TABLET GT SCH (09:11)
[2019-05-04] MEDS: Z GUARD REMEDY 4 OZ OINT TP SCH ×2 (09:11→20:05)
[2019-05-04] MEDS: HEPARIN SODIUM, PORCINE 5000 UNITS/1 ML VIAL SQ SCH ×2 (09:11→20:04)
[2019-05-04] MEDS: SENNOSIDES 8.6 MG TABLET GT SCH (09:11)
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
[2019-05-04 20:05] VITALS: BP 112/61
[2019-05-04] MEDS: POLYETHYLENE GLYCOL 3350 17 GM POWD.PACK GT SCH (22:05)
[2019-05-05] MEDS: ALBUTEROL FS 2.5 MG/3 ML VIAL.NEB NEB SCH ×4 (01:19→20:06)
[2019-05-05] MEDS: MYCOPHENOLATE MOFETIL SUSP 500 MG/2.5 ML UDC GT SCH ×2 (05:01→17:12)
[2019-05-05] MEDS: CHLORHEXIDINE GLUCONATE 15 ML UDC MM SCH ×2 (05:01→17:12)
[2019-05-05] MEDS: POLYVINYL ALCOHOL 15 ML BOTTLE EACHEYE SCH ×4 (05:01→23:20)
[2019-05-05 07:43] VITALS: BP 129/69
[2019-05-05] MEDS: HYDROGEN PEROXIDE 480 ML BOTTLE TP SCH ×2 (09:00→20:25)
[2019-05-05] MEDS: LEVETIRACETAM SOL (5 ML) 100 MG/ML UDC GT SCH ×2 (09:45→20:37)
[2019-05-05] MEDS: SENNOSIDES 8.6 MG TABLET GT SCH (09:45)
[2019-05-05] MEDS: SERTRALINE HCL 25 MG TABLET GT SCH (09:45)
[2019-05-05] MEDS: BACLOFEN (10 MG) 10 MG TABLET GT SCH ×3 (09:45→17:12)
[2019-05-05] MEDS: FOLIC ACID 1 MG TABLET GT SCH ×2 (09:45→17:12)
[2019-05-05] MEDS: Z GUARD REMEDY 4 OZ OINT TP SCH ×2 (09:46→20:37)
[2019-05-05] MEDS: HEPARIN SODIUM, PORCINE 5000 UNITS/1 ML VIAL SQ SCH ×2 (09:46→20:37)
--- NOTE | 2019-05-05 11:20 | NUR ---
Called the office of Dr Flor. Dr Flor not in today, but will be in tomorrow. Left message.
[2019-05-05 20:00] VITALS: BP 109/50
--- NOTE | 2019-05-05 20:24 | NUR ---
Seen and examined by HA Spangler no new order.
[2019-05-05] MEDS: POLYETHYLENE GLYCOL 3350 17 GM POWD.PACK GT SCH (21:31)
[2019-05-06] MEDS: JEVITY 1.2 CAL 1,000 ML BOTTLE GT PRN ×2 (00:49→23:48)
[2019-05-06] MEDS: ALBUTEROL FS 2.5 MG/3 ML VIAL.NEB NEB SCH ×4 (01:15→20:00)
--- NOTE | 2019-05-06 01:50 | NUR ---
PT RCVD TRACH'D ON COOL AEROSOL WITH CHARTED SETTINGS. SX DONE. PT JIMBO TX WELL. AMBU BAG AT BEDSIDE. Addendum: 05/06/19 at 0150 by USHA SUMMERS RT Amended: Links added.
[2019-05-06] MEDS: POLYVINYL ALCOHOL 15 ML BOTTLE EACHEYE SCH ×4 (05:04→23:48)
[2019-05-06] MEDS: MYCOPHENOLATE MOFETIL SUSP 500 MG/2.5 ML UDC GT SCH ×2 (05:04→17:58)
[2019-05-06] MEDS: CHLORHEXIDINE GLUCONATE 15 ML UDC MM SCH ×2 (05:04→17:58)
[2019-05-06 07:57] VITALS: BP 105/58
[2019-05-06] MEDS: HYDROGEN PEROXIDE 480 ML BOTTLE TP SCH ×2 (09:45→20:00)
[2019-05-06] MEDS: SERTRALINE HCL 25 MG TABLET GT SCH (09:54)
[2019-05-06] MEDS: FOLIC ACID 1 MG TABLET GT SCH ×2 (09:54→17:58)
[2019-05-06] MEDS: BACLOFEN (10 MG) 10 MG TABLET GT SCH ×3 (09:54→17:58)
[2019-05-06] MEDS: SENNOSIDES 8.6 MG TABLET GT SCH (09:54)
[2019-05-06] MEDS: LEVETIRACETAM SOL (5 ML) 100 MG/ML UDC GT SCH ×2 (09:54→20:15)
[2019-05-06] MEDS: HEPARIN SODIUM, PORCINE 5000 UNITS/1 ML VIAL SQ SCH ×2 (09:55→20:15)
[2019-05-06] MEDS: Z GUARD REMEDY 4 OZ OINT TP SCH ×2 (09:55→20:15)
--- NOTE | 2019-05-06 11:42 | NUR ---
Spoke with Alicia from Dr. Flor office regarding ortho consult for tendon release evaluation. Awaiting for MD to call back.
--- NOTE | 2019-05-06 12:30 | NUR ---
Seen and examined by TIKI Sofia for ortho consult for tendon release, he said that patient is not a candidate. Will inform Dr. Aguilar.
--- NOTE | 2019-05-06 14:42 | NUR ---
Seen and examined by Dr. Aguilar, made aware that TIKI Sofia for Dr. Flor, ortho seen and examined resident but no new recommendation given.
[2019-05-06 20:00] VITALS: BP 116/70
[2019-05-06 20:10] VITALS: BP 105/56
--- NOTE | 2019-05-06 20:15 | NUR ---
RT NOTE RECEIVED TRACH PT ON C/A ON NOTED SETTINGS. PT JIMBO. HHN TX WELL. NO RESP. DISTRESS NOTED. WILL CONTINUE TO MONITOR. Addendum: 05/07/19 at 0519 by CONSUELO PALAFOX RT Amended: Links added.
[2019-05-06] MEDS: POLYETHYLENE GLYCOL 3350 17 GM POWD.PACK GT SCH (21:17)
[2019-05-07] MEDS: ALBUTEROL FS 2.5 MG/3 ML VIAL.NEB NEB SCH ×4 (01:30→19:48)
[2019-05-07] MEDS: CHLORHEXIDINE GLUCONATE 15 ML UDC MM SCH ×2 (05:32→17:56)
[2019-05-07] MEDS: POLYVINYL ALCOHOL 15 ML BOTTLE EACHEYE SCH ×4 (05:32→23:06)
[2019-05-07] MEDS: MYCOPHENOLATE MOFETIL SUSP 500 MG/2.5 ML UDC GT SCH ×2 (05:32→17:56)
[2019-05-07 07:36] VITALS: BP 113/68
[2019-05-07] MEDS: LEVETIRACETAM SOL (5 ML) 100 MG/ML UDC GT SCH ×2 (09:06→21:12)
[2019-05-07] MEDS: SENNOSIDES 8.6 MG TABLET GT SCH (09:06)
[2019-05-07] MEDS: FOLIC ACID 1 MG TABLET GT SCH ×2 (09:06→17:56)
[2019-05-07] MEDS: BACLOFEN (10 MG) 10 MG TABLET GT SCH ×3 (09:06→17:56)
[2019-05-07] MEDS: SERTRALINE HCL 25 MG TABLET GT SCH (09:06)
[2019-05-07] MEDS: HEPARIN SODIUM, PORCINE 5000 UNITS/1 ML VIAL SQ SCH ×2 (09:06→21:16)
[2019-05-07] MEDS: Z GUARD REMEDY 4 OZ OINT TP SCH ×2 (09:08→21:12)
[2019-05-07] MEDS: HYDROGEN PEROXIDE 480 ML BOTTLE TP SCH ×2 (09:45→21:12)
--- NOTE | 2019-05-07 10:08 | NUR ---
RT NOTE PT RECEIVED TRACHED ON COOL AEROSOL @ 28%. AMBU BAG/BACK UP TRACH @ BEDSIDE. TX GIVEN, NO ADVERSE REACTIONS NOTED. SX DONE, TRACH SECURED AND PATENT. WATER LEVEL GOOD. NO SOB NOTED. Addendum: 05/07/19 at 1008 by ALBERTA DON RT Amended: Links added.
[2019-05-07] MEDS: JEVITY 1.2 CAL 1,000 ML BOTTLE GT PRN (13:00)
[2019-05-07 20:03] VITALS: BP 116/70
[2019-05-07] MEDS: POLYETHYLENE GLYCOL 3350 17 GM POWD.PACK GT SCH (21:12)
[2019-05-08] MEDS: ALBUTEROL FS 2.5 MG/3 ML VIAL.NEB NEB SCH ×4 (01:45→20:15)
--- NOTE | 2019-05-08 03:43 | NUR ---
RT Patient was received on 28% cool aerosol .Breathing treatment was given. Airway patent and secured. Patient stable throughout the shift.Will continue to monitor Addendum: 05/08/19 at 0343 by ELIAZAR GOMES RT Amended: Links added.
[2019-05-08] MEDS: POLYVINYL ALCOHOL 15 ML BOTTLE EACHEYE SCH ×3 (05:27→17:42)
[2019-05-08] MEDS: CHLORHEXIDINE GLUCONATE 15 ML UDC MM SCH ×2 (05:27→17:42)
[2019-05-08] MEDS: MYCOPHENOLATE MOFETIL SUSP 500 MG/2.5 ML UDC GT SCH ×2 (05:27→17:42)
[2019-05-08 08:06] VITALS: BP 108/52
[2019-05-08] MEDS: SERTRALINE HCL 25 MG TABLET GT SCH (09:34)
[2019-05-08] MEDS: SENNOSIDES 8.6 MG TABLET GT SCH (09:34)
[2019-05-08] MEDS: Z GUARD REMEDY 4 OZ OINT TP SCH ×2 (09:34→20:31)
[2019-05-08] MEDS: BACLOFEN (10 MG) 10 MG TABLET GT SCH ×3 (09:34→17:41)
[2019-05-08] MEDS: LEVETIRACETAM SOL (5 ML) 100 MG/ML UDC GT SCH ×2 (09:34→20:29)
[2019-05-08] MEDS: FOLIC ACID 1 MG TABLET GT SCH ×2 (09:34→17:41)
[2019-05-08] MEDS: HEPARIN SODIUM, PORCINE 5000 UNITS/1 ML VIAL SQ SCH ×2 (09:35→20:31)
[2019-05-08] MEDS: HYDROGEN PEROXIDE 480 ML BOTTLE TP SCH ×2 (09:42→20:15)
[2019-05-08] MEDS: JEVITY 1.2 CAL 1,000 ML BOTTLE GT PRN (14:00)
--- NOTE | 2019-05-08 20:15 | NUR ---
RT NOTE RECEIVED PT WITH THE NOTED CONDITION IN [id number]. PT JIMBO. TX WELL. NO RESP. DISTRESS NOTED. WILL CONTINUE WITH CURRENT PLAN OF CARE. Addendum: 05/09/19 at 0232 by CONSUELO PALAFOX RT Amended: Links added.
[2019-05-08 20:23] VITALS: BP 118/75
[2019-05-08] MEDS: POLYETHYLENE GLYCOL 3350 17 GM POWD.PACK GT SCH (22:30)
[2019-05-09] MEDS: POLYVINYL ALCOHOL 15 ML BOTTLE EACHEYE SCH ×4 (00:07→17:46)
[2019-05-09] MEDS: ALBUTEROL FS 2.5 MG/3 ML VIAL.NEB NEB SCH ×4 (01:46→19:39)
[2019-05-09] MEDS: MYCOPHENOLATE MOFETIL SUSP 500 MG/2.5 ML UDC GT SCH ×2 (05:31→17:46)
[2019-05-09] MEDS: JEVITY 1.2 CAL 1,000 ML BOTTLE GT PRN (05:32)
[2019-05-09] MEDS: CHLORHEXIDINE GLUCONATE 15 ML UDC MM SCH ×2 (05:32→17:46)
[2019-05-09] MEDS: HEPARIN SODIUM, PORCINE 5000 UNITS/1 ML VIAL SQ SCH ×2 (09:00→20:42)
[2019-05-09] MEDS: BACLOFEN (10 MG) 10 MG TABLET GT SCH ×3 (09:00→17:46)
[2019-05-09] MEDS: Z GUARD REMEDY 4 OZ OINT TP SCH ×2 (09:00→20:43)
[2019-05-09] MEDS: FOLIC ACID 1 MG TABLET GT SCH ×2 (09:00→17:46)
[2019-05-09] MEDS: SENNOSIDES 8.6 MG TABLET GT SCH (09:00)
[2019-05-09] MEDS: SERTRALINE HCL 25 MG TABLET GT SCH (09:00)
[2019-05-09] MEDS: LEVETIRACETAM SOL (5 ML) 100 MG/ML UDC GT SCH ×2 (09:00→20:41)
[2019-05-09] MEDS: HYDROGEN PEROXIDE 480 ML BOTTLE TP SCH ×2 (09:00→21:00)
[2019-05-09 09:05] VITALS: BP 119/62
[2019-05-09 20:27] VITALS: BP 140/98
[2019-05-09] MEDS: POLYETHYLENE GLYCOL 3350 17 GM POWD.PACK GT SCH (21:47)
[2019-05-10] MEDS: POLYVINYL ALCOHOL 15 ML BOTTLE EACHEYE SCH ×4 (00:29→17:37)
[2019-05-10] MEDS: ALBUTEROL FS 2.5 MG/3 ML VIAL.NEB NEB SCH ×4 (01:22→20:43)
[2019-05-10] MEDS: JEVITY 1.2 CAL 1,000 ML BOTTLE GT PRN ×2 (03:56→17:36)
[2019-05-10] MEDS: MYCOPHENOLATE MOFETIL SUSP 500 MG/2.5 ML UDC GT SCH ×2 (05:42→17:37)
[2019-05-10] MEDS: CHLORHEXIDINE GLUCONATE 15 ML UDC MM SCH ×2 (05:42→17:37)
[2019-05-10] MEDS: HEPARIN SODIUM, PORCINE 5000 UNITS/1 ML VIAL SQ SCH ×2 (08:17→21:04)
[2019-05-10] MEDS: SERTRALINE HCL 25 MG TABLET GT SCH (08:17)
[2019-05-10] MEDS: SENNOSIDES 8.6 MG TABLET GT SCH (08:17)
[2019-05-10] MEDS: LEVETIRACETAM SOL (5 ML) 100 MG/ML UDC GT SCH ×2 (08:17→21:03)
[2019-05-10] MEDS: FOLIC ACID 1 MG TABLET GT SCH ×2 (08:17→17:37)
[2019-05-10] MEDS: BACLOFEN (10 MG) 10 MG TABLET GT SCH ×3 (08:17→17:37)
[2019-05-10] MEDS: HYDROGEN PEROXIDE 480 ML BOTTLE TP SCH ×2 (08:20→21:00)
[2019-05-10] MEDS: Z GUARD REMEDY 4 OZ OINT TP SCH ×2 (09:00→21:05)
[2019-05-10 10:54] VITALS: BP 104/70
[2019-05-10 20:08] VITALS: BP 119/58
[2019-05-10] MEDS: POLYETHYLENE GLYCOL 3350 17 GM POWD.PACK GT SCH (21:05)
[2019-05-11] MEDS: POLYVINYL ALCOHOL 15 ML BOTTLE EACHEYE SCH ×5 (00:34→23:41)
[2019-05-11] MEDS: ALBUTEROL FS 2.5 MG/3 ML VIAL.NEB NEB SCH ×5 (02:35→19:30)
[2019-05-11] MEDS: MYCOPHENOLATE MOFETIL SUSP 500 MG/2.5 ML UDC GT SCH ×2 (05:49→18:43)
[2019-05-11] MEDS: CHLORHEXIDINE GLUCONATE 15 ML UDC MM SCH ×2 (05:50→18:43)
[2019-05-11 07:34] VITALS: BP 138/75
[2019-05-11] MEDS: BACLOFEN (10 MG) 10 MG TABLET GT SCH ×3 (08:08→16:32)
[2019-05-11] MEDS: LEVETIRACETAM SOL (5 ML) 100 MG/ML UDC GT SCH ×2 (08:08→21:15)
[2019-05-11] MEDS: FOLIC ACID 1 MG TABLET GT SCH ×2 (08:08→16:32)
[2019-05-11] MEDS: SENNOSIDES 8.6 MG TABLET GT SCH (08:09)
[2019-05-11] MEDS: SERTRALINE HCL 25 MG TABLET GT SCH (08:09)
[2019-05-11] MEDS: HEPARIN SODIUM, PORCINE 5000 UNITS/1 ML VIAL SQ SCH ×2 (09:00→21:17)
[2019-05-11] MEDS: Z GUARD REMEDY 4 OZ OINT TP SCH ×2 (09:00→21:17)
--- NOTE | 2019-05-11 09:04 | NUR ---
RT NOTE: REC'D TRACH PT ON COOL AEROSOL. AMBU BAG @ BEDSIDE. Q6 BREATHING TX GIVEN PER MD ORDERS W NO ADVERSE REACTION NOTED. SX DONE PRN. TRACH PATENT AND SECURED. TRACH CARE DONE. NO RESP DISTRESS NOTED AT THIS TIME. WILL CONTINUE TO MONITOR. Addendum: 05/11/19 at 0904 by KIMI JAIMES RT Amended: Links added.
[2019-05-11] MEDS: HYDROGEN PEROXIDE 480 ML BOTTLE TP SCH ×2 (09:12→21:20)
[2019-05-11] MEDS: JEVITY 1.2 CAL 1,000 ML BOTTLE GT PRN (12:43)
--- NOTE | 2019-05-11 14:41 | NUR ---
SW received a Notice of Referral Receipt via mail from Department of Mental Health [[address] [place] [id number]] Director, Real Ceballos M.D., PH.D.. The Letter stated that a referral for the resident has been received and assigned to [place] Public Guardian: Sr. DADA Muro tel: [phone] for investigation. The letter was placed in the patient's chart and SA Director informed.
[2019-05-11 20:15] VITALS: BP 118/56
[2019-05-11] MEDS: POLYETHYLENE GLYCOL 3350 17 GM POWD.PACK GT SCH (21:17)
[2019-05-12] MEDS: ALBUTEROL FS 2.5 MG/3 ML VIAL.NEB NEB SCH ×4 (00:46→20:08)
[2019-05-12] MEDS: CHLORHEXIDINE GLUCONATE 15 ML UDC MM SCH ×2 (05:34→17:50)
[2019-05-12] MEDS: POLYVINYL ALCOHOL 15 ML BOTTLE EACHEYE SCH ×3 (05:34→17:50)
[2019-05-12] MEDS: MYCOPHENOLATE MOFETIL SUSP 500 MG/2.5 ML UDC GT SCH ×2 (05:34→17:50)
[2019-05-12] MEDS: JEVITY 1.2 CAL 1,000 ML BOTTLE GT PRN (06:00)
[2019-05-12 07:46] VITALS: BP 122/73
[2019-05-12] MEDS: LEVETIRACETAM SOL (5 ML) 100 MG/ML UDC GT SCH ×2 (08:29→20:52)
[2019-05-12] MEDS: BACLOFEN (10 MG) 10 MG TABLET GT SCH ×3 (08:29→17:50)
[2019-05-12] MEDS: HEPARIN SODIUM, PORCINE 5000 UNITS/1 ML VIAL SQ SCH ×2 (08:29→20:52)
[2019-05-12] MEDS: Z GUARD REMEDY 4 OZ OINT TP SCH ×2 (08:29→20:53)
[2019-05-12] MEDS: SENNOSIDES 8.6 MG TABLET GT SCH (08:29)
[2019-05-12] MEDS: SERTRALINE HCL 25 MG TABLET GT SCH (08:29)
[2019-05-12] MEDS: FOLIC ACID 1 MG TABLET GT SCH ×2 (08:29→17:50)
[2019-05-12] MEDS: HYDROGEN PEROXIDE 480 ML BOTTLE TP SCH ×2 (09:00→20:26)
--- NOTE | 2019-05-12 11:38 | NUR ---
RT NOTE: REC'D TRACH PT ON COOL AEROSOL. RENKenia BAG @ BEDSIDE. SX DONE PRN. TRACH PATENT AND SECURED. TRACH CARE DONE. NO RESP DISTRESS NOTED AT THIS TIME. WILL CONTINUE TO MONITOR. Addendum: 05/12/19 at 1138 by KIMI JAIMES RT Amended: Links added.
[2019-05-12 20:05] VITALS: BP 113/64
--- NOTE | 2019-05-12 20:27 | NUR ---
PT RCVD TRACH'D ON COOL AEROSOL WITH CHARTED SETTINGS. PT JIMBO TX WELL. SX DONE. PT TRACH IS PATENT AND SECURE. AMBU BAG AT BEDSIDE. Addendum: 05/12/19 at 2028 by USHA SUMMERS RT Amended: Links added.
[2019-05-12] MEDS: POLYETHYLENE GLYCOL 3350 17 GM POWD.PACK GT SCH (21:58)
[2019-05-13] MEDS: POLYVINYL ALCOHOL 15 ML BOTTLE EACHEYE SCH ×5 (00:07→23:29)
[2019-05-13] MEDS: ALBUTEROL FS 2.5 MG/3 ML VIAL.NEB NEB SCH ×4 (01:01→20:23)
[2019-05-13] MEDS: JEVITY 1.2 CAL 1,000 ML BOTTLE GT PRN ×2 (03:00→18:57)
[2019-05-13] MEDS: MYCOPHENOLATE MOFETIL SUSP 500 MG/2.5 ML UDC GT SCH ×2 (05:36→17:49)
[2019-05-13] MEDS: CHLORHEXIDINE GLUCONATE 15 ML UDC MM SCH ×2 (05:36→17:49)
[2019-05-13 07:31] VITALS: BP 145/79
[2019-05-13] MEDS: FOLIC ACID 1 MG TABLET GT SCH ×2 (09:00→17:49)
[2019-05-13] MEDS: Z GUARD REMEDY 4 OZ OINT TP SCH ×2 (09:00→21:13)
[2019-05-13] MEDS: HEPARIN SODIUM, PORCINE 5000 UNITS/1 ML VIAL SQ SCH ×2 (09:00→21:13)
[2019-05-13] MEDS: SENNOSIDES 8.6 MG TABLET GT SCH (09:00)
[2019-05-13] MEDS: SERTRALINE HCL 25 MG TABLET GT SCH (09:00)
[2019-05-13] MEDS: LEVETIRACETAM SOL (5 ML) 100 MG/ML UDC GT SCH ×2 (09:00→21:13)
[2019-05-13] MEDS: BACLOFEN (10 MG) 10 MG TABLET GT SCH ×3 (09:00→17:49)
[2019-05-13] MEDS: HYDROGEN PEROXIDE 480 ML BOTTLE TP SCH ×2 (09:51→21:00)
--- NOTE | 2019-05-13 16:00 | NUR ---
Seen and examined by Dr. Jeff dsouza.
[2019-05-13 20:48] VITALS: BP 96/62
[2019-05-13] MEDS: POLYETHYLENE GLYCOL 3350 17 GM POWD.PACK GT SCH (21:13)
[2019-05-14] MEDS: ALBUTEROL FS 2.5 MG/3 ML VIAL.NEB NEB SCH ×4 (01:50→20:08)
[2019-05-14] MEDS: POLYVINYL ALCOHOL 15 ML BOTTLE EACHEYE SCH ×4 (05:44→23:39)
[2019-05-14] MEDS: CHLORHEXIDINE GLUCONATE 15 ML UDC MM SCH ×2 (05:44→17:09)
[2019-05-14] MEDS: MYCOPHENOLATE MOFETIL SUSP 500 MG/2.5 ML UDC GT SCH ×2 (05:44→17:09)
[2019-05-14 07:19] VITALS: BP 113/79
[2019-05-14] MEDS: SERTRALINE HCL 25 MG TABLET GT SCH (08:32)
[2019-05-14] MEDS: Z GUARD REMEDY 4 OZ OINT TP SCH ×2 (08:32→21:17)
[2019-05-14] MEDS: SENNOSIDES 8.6 MG TABLET GT SCH (08:32)
[2019-05-14] MEDS: FOLIC ACID 1 MG TABLET GT SCH ×2 (08:32→17:09)
[2019-05-14] MEDS: BACLOFEN (10 MG) 10 MG TABLET GT SCH ×3 (08:32→17:09)
[2019-05-14] MEDS: LEVETIRACETAM SOL (5 ML) 100 MG/ML UDC GT SCH ×2 (08:32→21:17)
[2019-05-14] MEDS: HEPARIN SODIUM, PORCINE 5000 UNITS/1 ML VIAL SQ SCH ×2 (08:32→21:17)
[2019-05-14] MEDS: HYDROGEN PEROXIDE 480 ML BOTTLE TP SCH ×2 (09:36→21:35)
[2019-05-14 20:46] VITALS: BP 123/55
[2019-05-14] MEDS: POLYETHYLENE GLYCOL 3350 17 GM POWD.PACK GT SCH (21:17)
[2019-05-15] MEDS: ALBUTEROL FS 2.5 MG/3 ML VIAL.NEB NEB SCH ×4 (01:29→20:06)
[2019-05-15] MEDS: MYCOPHENOLATE MOFETIL SUSP 500 MG/2.5 ML UDC GT SCH ×2 (05:59→17:54)
[2019-05-15] MEDS: POLYVINYL ALCOHOL 15 ML BOTTLE EACHEYE SCH ×4 (05:59→23:44)
[2019-05-15] MEDS: JEVITY 1.2 CAL 1,000 ML BOTTLE GT PRN (06:03)
[2019-05-15] MEDS: CHLORHEXIDINE GLUCONATE 15 ML UDC MM SCH ×2 (06:30→17:54)
[2019-05-15 07:44] VITALS: BP 117/69
[2019-05-15] MEDS: HYDROGEN PEROXIDE 480 ML BOTTLE TP SCH ×2 (07:59→20:06)
[2019-05-15] MEDS: FOLIC ACID 1 MG TABLET GT SCH ×2 (09:00→16:55)
[2019-05-15] MEDS: SENNOSIDES 8.6 MG TABLET GT SCH (09:00)
[2019-05-15] MEDS: Z GUARD REMEDY 4 OZ OINT TP SCH ×2 (09:00→21:09)
[2019-05-15] MEDS: LEVETIRACETAM SOL (5 ML) 100 MG/ML UDC GT SCH ×2 (09:00→21:08)
[2019-05-15] MEDS: SERTRALINE HCL 25 MG TABLET GT SCH (09:00)
[2019-05-15] MEDS: BACLOFEN (10 MG) 10 MG TABLET GT SCH ×3 (09:00→16:55)
[2019-05-15] MEDS: HEPARIN SODIUM, PORCINE 5000 UNITS/1 ML VIAL SQ SCH ×2 (09:00→21:09)
[2019-05-15 19:42] VITALS: BP 107/68
--- NOTE | 2019-05-15 20:16 | NUR ---
RT NOTE: RECEIVED TRACH PT ON COOL AEROSOL. AMBU BAG @ BEDSIDE. Q6 BREATHING TX GIVEN PER MD ORDERS WITH NO ADVERSE REACTION NOTED. SX DONE PRN. TRACH PATENT AND SECURED. TRACH CARE DONE. NO RESP DISTRESS NOTED AT THIS TIME. WILL CONTINUE TO MONITOR PT Addendum: 05/16/19 at 0531 by DOV GREENBERG RT Amended: Links added.
[2019-05-15] MEDS: POLYETHYLENE GLYCOL 3350 17 GM POWD.PACK GT SCH (21:09)
[2019-05-16] MEDS: ALBUTEROL FS 2.5 MG/3 ML VIAL.NEB NEB SCH ×4 (02:11→19:30)
[2019-05-16] MEDS: CHLORHEXIDINE GLUCONATE 15 ML UDC MM SCH ×2 (06:01→17:16)
[2019-05-16] MEDS: MYCOPHENOLATE MOFETIL SUSP 500 MG/2.5 ML UDC GT SCH ×2 (06:01→17:16)
[2019-05-16] MEDS: POLYVINYL ALCOHOL 15 ML BOTTLE EACHEYE SCH ×4 (06:01→23:06)
[2019-05-16] MEDS: Z GUARD REMEDY 4 OZ OINT TP SCH ×2 (09:00→21:02)
[2019-05-16] MEDS: LEVETIRACETAM SOL (5 ML) 100 MG/ML UDC GT SCH ×2 (09:00→21:01)
[2019-05-16] MEDS: SERTRALINE HCL 25 MG TABLET GT SCH (09:00)
[2019-05-16] MEDS: HEPARIN SODIUM, PORCINE 5000 UNITS/1 ML VIAL SQ SCH ×2 (09:00→21:01)
[2019-05-16] MEDS: FOLIC ACID 1 MG TABLET GT SCH ×2 (09:00→17:15)
[2019-05-16] MEDS: BACLOFEN (10 MG) 10 MG TABLET GT SCH ×3 (09:00→17:15)
[2019-05-16] MEDS: SENNOSIDES 8.6 MG TABLET GT SCH (09:00)
[2019-05-16 09:48] VITALS: BP 133/74
[2019-05-16] MEDS: HYDROGEN PEROXIDE 480 ML BOTTLE TP SCH ×2 (09:48→20:47)
[2019-05-16] MEDS: JEVITY 1.2 CAL 1,000 ML BOTTLE GT PRN (17:15)
[2019-05-16 20:39] VITALS: BP 122/72
[2019-05-16] MEDS: POLYETHYLENE GLYCOL 3350 17 GM POWD.PACK GT SCH (21:02)
[2019-05-17] MEDS: ALBUTEROL FS 2.5 MG/3 ML VIAL.NEB NEB SCH ×4 (01:54→20:03)
[2019-05-17] MEDS: POLYVINYL ALCOHOL 15 ML BOTTLE EACHEYE SCH ×4 (05:25→23:07)
[2019-05-17] MEDS: MYCOPHENOLATE MOFETIL SUSP 500 MG/2.5 ML UDC GT SCH ×2 (05:25→17:43)
[2019-05-17] MEDS: CHLORHEXIDINE GLUCONATE 15 ML UDC MM SCH ×2 (05:25→17:43)
[2019-05-17 08:01] VITALS: BP 121/75
[2019-05-17] MEDS: HYDROGEN PEROXIDE 480 ML BOTTLE TP SCH ×2 (09:42→20:03)
[2019-05-17] MEDS: BACLOFEN (10 MG) 10 MG TABLET GT SCH ×3 (09:58→17:43)
[2019-05-17] MEDS: SENNOSIDES 8.6 MG TABLET GT SCH (09:58)
[2019-05-17] MEDS: SERTRALINE HCL 25 MG TABLET GT SCH (09:58)
[2019-05-17] MEDS: LEVETIRACETAM SOL (5 ML) 100 MG/ML UDC GT SCH ×2 (09:58→21:06)
[2019-05-17] MEDS: FOLIC ACID 1 MG TABLET GT SCH ×2 (09:58→17:42)
[2019-05-17] MEDS: HEPARIN SODIUM, PORCINE 5000 UNITS/1 ML VIAL SQ SCH ×2 (10:00→21:07)
[2019-05-17] MEDS: Z GUARD REMEDY 4 OZ OINT TP SCH ×2 (10:30→21:07)
[2019-05-17] MEDS: JEVITY 1.2 CAL 1,000 ML BOTTLE GT PRN (17:43)
--- NOTE | 2019-05-17 20:13 | NUR ---
RT NOTE: RECEIVED TRACH PT ON COOL AEROSOL. AMBU BAG @ BEDSIDE. Q6 BREATHING TX GIVEN PER MD ORDERS WITH NO ADVERSE REACTION NOTED. SX DONE PRN. TRACH PATENT AND SECURED. TRACH CARE DONE. NO RESP DISTRESS NOTED AT THIS TIME. WILL CONTINUE TO MONITOR PT Addendum: 05/18/19 at 0359 by DOV GREENBERG RT Amended: Links added.
[2019-05-17 20:39] VITALS: BP 108/68
[2019-05-17] MEDS: POLYETHYLENE GLYCOL 3350 17 GM POWD.PACK GT SCH (21:07)
[2019-05-18] MEDS: ALBUTEROL FS 2.5 MG/3 ML VIAL.NEB NEB SCH ×4 (02:00→20:04)
[2019-05-18] MEDS: MYCOPHENOLATE MOFETIL SUSP 500 MG/2.5 ML UDC GT SCH ×2 (05:21→18:08)
[2019-05-18] MEDS: POLYVINYL ALCOHOL 15 ML BOTTLE EACHEYE SCH ×4 (05:21→23:18)
[2019-05-18] MEDS: CHLORHEXIDINE GLUCONATE 15 ML UDC MM SCH ×2 (05:21→18:08)
[2019-05-18 07:53] VITALS: BP 138/81
[2019-05-18] MEDS: LEVETIRACETAM SOL (5 ML) 100 MG/ML UDC GT SCH ×2 (09:00→21:14)
[2019-05-18] MEDS: BACLOFEN (10 MG) 10 MG TABLET GT SCH ×3 (09:00→17:00)
[2019-05-18] MEDS: HEPARIN SODIUM, PORCINE 5000 UNITS/1 ML VIAL SQ SCH ×2 (09:00→21:14)
[2019-05-18] MEDS: Z GUARD REMEDY 4 OZ OINT TP SCH ×2 (09:00→21:14)
[2019-05-18] MEDS: SERTRALINE HCL 25 MG TABLET GT SCH (09:00)
[2019-05-18] MEDS: FOLIC ACID 1 MG TABLET GT SCH ×2 (09:00→17:00)
[2019-05-18] MEDS: SENNOSIDES 8.6 MG TABLET GT SCH (09:00)
[2019-05-18] MEDS: HYDROGEN PEROXIDE 480 ML BOTTLE TP SCH ×2 (09:51→20:04)
[2019-05-18] MEDS: JEVITY 1.2 CAL 1,000 ML BOTTLE GT PRN (10:18)
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
--- NOTE | 2019-05-18 16:29 | NUR ---
Per [place] Public ConservatorCeleste TEL:[phone] request, SW faxed the Share of Cost bills from 2013-current to FAX:[phone]. SW received completed fax receipt.
[2019-05-18 20:40] VITALS: BP 116/77
[2019-05-18] MEDS: POLYETHYLENE GLYCOL 3350 17 GM POWD.PACK GT SCH (21:14)
[2019-05-19] MEDS: ALBUTEROL FS 2.5 MG/3 ML VIAL.NEB NEB SCH ×4 (01:51→20:42)
[2019-05-19] MEDS: JEVITY 1.2 CAL 1,000 ML BOTTLE GT PRN (02:03)
[2019-05-19] MEDS: MYCOPHENOLATE MOFETIL SUSP 500 MG/2.5 ML UDC GT SCH ×2 (05:40→17:21)
[2019-05-19] MEDS: POLYVINYL ALCOHOL 15 ML BOTTLE EACHEYE SCH ×4 (05:40→23:54)
[2019-05-19] MEDS: CHLORHEXIDINE GLUCONATE 15 ML UDC MM SCH ×2 (05:40→17:21)
[2019-05-19 07:56] VITALS: BP 106/57
[2019-05-19] MEDS: HYDROGEN PEROXIDE 480 ML BOTTLE TP SCH ×2 (09:00→20:50)
[2019-05-19] MEDS: SERTRALINE HCL 25 MG TABLET GT SCH (09:45)
[2019-05-19] MEDS: FOLIC ACID 1 MG TABLET GT SCH ×2 (09:45→16:09)
[2019-05-19] MEDS: LEVETIRACETAM SOL (5 ML) 100 MG/ML UDC GT SCH ×2 (09:45→21:21)
[2019-05-19] MEDS: SENNOSIDES 8.6 MG TABLET GT SCH (09:45)
[2019-05-19] MEDS: BACLOFEN (10 MG) 10 MG TABLET GT SCH ×3 (09:45→16:09)
[2019-05-19] MEDS: HEPARIN SODIUM, PORCINE 5000 UNITS/1 ML VIAL SQ SCH ×2 (09:46→21:22)
[2019-05-19] MEDS: Z GUARD REMEDY 4 OZ OINT TP SCH ×2 (09:46→21:22)
--- NOTE | 2019-05-19 11:41 | NUR ---
HILTON contacted the patient's responsible constitution party/daughter, Lisa Tellez [phone] to notify family about Family Support group taking place 05/25/19 and IDT Plan of Care Conference on 05/27/19. Call went to voicemail and mailbox was full. HILTON contacted the patient's father Dr. Swift [phone] to relay above stated information and he informed HILTON that the patient's conservators are the pt's , Zeb [phone] and the pt.'s daughter, Lisa [phone] and they should be the ones notified. HILTON informed Dr. Swift that Zeb has expressed he should not be contacted and Lisa has been unavailable over the phone. HILTON informed that a referral was made to Public Guardian's office. Dr. Swift expressed gratitude for HILTON efforts to ensure pt. safety.
[2019-05-19 20:06] VITALS: BP 127/70
--- NOTE | 2019-05-19 20:12 | NUR ---
Seen and examined by HA Spangler no new orders.
[2019-05-19 21:03] VITALS: BP 127/70
--- NOTE | 2019-05-19 21:08 | NUR ---
PT RCVD TRACH'D ON COOL AEROSOL WITH CHARTED SETTINGS. PT JIMBO TX WELL. SX DONE. PT TRACH IS PATENT AND SECURE. AMBU BAG AT BEDSIDE. NO SOB NOTED. Addendum: 05/19/19 at 2109 by USHA SUMMERS RT Amended: Links added.
[2019-05-19] MEDS: POLYETHYLENE GLYCOL 3350 17 GM POWD.PACK GT SCH (21:22)
[2019-05-20] MEDS: ALBUTEROL FS 2.5 MG/3 ML VIAL.NEB NEB SCH ×4 (01:14→19:30)
[2019-05-20] MEDS: POLYVINYL ALCOHOL 15 ML BOTTLE EACHEYE SCH ×3 (05:35→17:26)
[2019-05-20] MEDS: CHLORHEXIDINE GLUCONATE 15 ML UDC MM SCH ×2 (05:35→17:26)
[2019-05-20] MEDS: MYCOPHENOLATE MOFETIL SUSP 500 MG/2.5 ML UDC GT SCH ×2 (05:35→17:26)
[2019-05-20] MEDS: HYDROGEN PEROXIDE 480 ML BOTTLE TP SCH ×2 (09:00→20:38)
[2019-05-20] MEDS: FOLIC ACID 1 MG TABLET GT SCH ×2 (09:32→16:29)
[2019-05-20] MEDS: LEVETIRACETAM SOL (5 ML) 100 MG/ML UDC GT SCH ×2 (09:32→21:35)
[2019-05-20] MEDS: BACLOFEN (10 MG) 10 MG TABLET GT SCH ×3 (09:33→16:29)
[2019-05-20] MEDS: SENNOSIDES 8.6 MG TABLET GT SCH (09:33)
[2019-05-20] MEDS: Z GUARD REMEDY 4 OZ OINT TP SCH ×2 (09:33→21:35)
[2019-05-20] MEDS: SERTRALINE HCL 25 MG TABLET GT SCH (09:33)
[2019-05-20] MEDS: HEPARIN SODIUM, PORCINE 5000 UNITS/1 ML VIAL SQ SCH ×2 (09:33→21:35)
[2019-05-20] MEDS: JEVITY 1.2 CAL 1,000 ML BOTTLE GT PRN (16:30)
[2019-05-20 19:48] VITALS: BP 105/64
[2019-05-20] MEDS: POLYETHYLENE GLYCOL 3350 17 GM POWD.PACK GT SCH (21:35)
[2019-05-21] MEDS: POLYVINYL ALCOHOL 15 ML BOTTLE EACHEYE SCH ×4 (00:13→18:09)
[2019-05-21] MEDS: ALBUTEROL FS 2.5 MG/3 ML VIAL.NEB NEB SCH ×4 (01:52→19:30)
[2019-05-21] MEDS: CHLORHEXIDINE GLUCONATE 15 ML UDC MM SCH ×2 (05:26→18:09)
[2019-05-21] MEDS: MYCOPHENOLATE MOFETIL SUSP 500 MG/2.5 ML UDC GT SCH ×2 (05:26→18:09)
[2019-05-21 07:39] VITALS: BP 117/68
[2019-05-21] MEDS: FOLIC ACID 1 MG TABLET GT SCH ×2 (08:23→17:00)
[2019-05-21] MEDS: BACLOFEN (10 MG) 10 MG TABLET GT SCH ×3 (08:23→17:00)
[2019-05-21] MEDS: LEVETIRACETAM SOL (5 ML) 100 MG/ML UDC GT SCH ×2 (08:23→21:31)
[2019-05-21] MEDS: SERTRALINE HCL 25 MG TABLET GT SCH (08:23)
[2019-05-21] MEDS: SENNOSIDES 8.6 MG TABLET GT SCH (08:23)
[2019-05-21] MEDS: HEPARIN SODIUM, PORCINE 5000 UNITS/1 ML VIAL SQ SCH ×2 (08:24→21:31)
[2019-05-21] MEDS: Z GUARD REMEDY 4 OZ OINT TP SCH ×2 (08:24→21:31)
[2019-05-21] MEDS: HYDROGEN PEROXIDE 480 ML BOTTLE TP SCH ×2 (09:00→20:30)
--- NOTE | 2019-05-21 15:20 | NUR ---
Seen and examined by Dr. Jeff LUCERO given at this time.
[2019-05-21 20:09] VITALS: BP 112/69
[2019-05-21] MEDS: POLYETHYLENE GLYCOL 3350 17 GM POWD.PACK GT SCH (21:31)
[2019-05-22] MEDS: ALBUTEROL FS 2.5 MG/3 ML VIAL.NEB NEB SCH ×4 (00:30→19:30)
[2019-05-22] MEDS: POLYVINYL ALCOHOL 15 ML BOTTLE EACHEYE SCH ×5 (00:47→23:19)
[2019-05-22] MEDS: MYCOPHENOLATE MOFETIL SUSP 500 MG/2.5 ML UDC GT SCH ×2 (05:17→17:47)
[2019-05-22] MEDS: CHLORHEXIDINE GLUCONATE 15 ML UDC MM SCH ×2 (05:17→17:47)
[2019-05-22] MEDS: JEVITY 1.2 CAL 1,000 ML BOTTLE GT PRN (06:13)
[2019-05-22 08:01] VITALS: BP 129/72
--- NOTE | 2019-05-22 08:23 | NUR ---
RT NOTE: REC'D TRACH PT ON COOL AEROSOL. LUIS F BAG @ BEDSIDE. SX DONE PRN. TRACH PATENT AND SECURED. TRACH CARE DONE. NO RESP DISTRESS NOTED AT THIS TIME. WILL CONTINUE TO MONITOR. Addendum: 05/22/19 at 0823 by KIMI JAIMES RT Amended: Links added.
[2019-05-22] MEDS: FOLIC ACID 1 MG TABLET GT SCH ×2 (09:50→17:47)
[2019-05-22] MEDS: SENNOSIDES 8.6 MG TABLET GT SCH (09:50)
[2019-05-22] MEDS: BACLOFEN (10 MG) 10 MG TABLET GT SCH ×3 (09:50→17:47)
[2019-05-22] MEDS: LEVETIRACETAM SOL (5 ML) 100 MG/ML UDC GT SCH ×2 (09:50→21:08)
[2019-05-22] MEDS: SERTRALINE HCL 25 MG TABLET GT SCH (09:50)
[2019-05-22] MEDS: Z GUARD REMEDY 4 OZ OINT TP SCH ×2 (09:51→21:08)
[2019-05-22] MEDS: HEPARIN SODIUM, PORCINE 5000 UNITS/1 ML VIAL SQ SCH ×2 (09:51→21:08)
[2019-05-22] MEDS: HYDROGEN PEROXIDE 480 ML BOTTLE TP SCH ×2 (09:56→20:37)
[2019-05-22 19:38] VITALS: BP 136/69
[2019-05-22] MEDS: POLYETHYLENE GLYCOL 3350 17 GM POWD.PACK GT SCH (21:08)
[2019-05-23] MEDS: ALBUTEROL FS 2.5 MG/3 ML VIAL.NEB NEB SCH ×4 (01:12→20:12)
[2019-05-23] MEDS: MYCOPHENOLATE MOFETIL SUSP 500 MG/2.5 ML UDC GT SCH ×2 (05:34→17:42)
[2019-05-23] MEDS: POLYVINYL ALCOHOL 15 ML BOTTLE EACHEYE SCH ×4 (05:34→23:19)
[2019-05-23] MEDS: CHLORHEXIDINE GLUCONATE 15 ML UDC MM SCH ×2 (05:34→17:42)
[2019-05-23 08:59] VITALS: BP 127/69
[2019-05-23] MEDS: HYDROGEN PEROXIDE 480 ML BOTTLE TP SCH ×2 (09:00→20:19)
[2019-05-23] MEDS: LEVETIRACETAM SOL (5 ML) 100 MG/ML UDC GT SCH ×2 (09:53→21:09)
[2019-05-23] MEDS: Z GUARD REMEDY 4 OZ OINT TP SCH ×2 (09:53→21:09)
[2019-05-23] MEDS: BACLOFEN (10 MG) 10 MG TABLET GT SCH ×3 (09:53→17:42)
[2019-05-23] MEDS: SERTRALINE HCL 25 MG TABLET GT SCH (09:53)
[2019-05-23] MEDS: SENNOSIDES 8.6 MG TABLET GT SCH (09:53)
[2019-05-23] MEDS: FOLIC ACID 1 MG TABLET GT SCH ×2 (09:53→17:42)
[2019-05-23] MEDS: HEPARIN SODIUM, PORCINE 5000 UNITS/1 ML VIAL SQ SCH ×2 (09:53→21:09)
--- NOTE | 2019-05-23 14:27 | NUR ---
RT NOTE: REC'D TRACH PT ON COOL AEROSOL. LUIS F BAG @ BEDSIDE. SX DONE PRN. TRACH PATENT AND SECURED. TRACH CARE DONE. NO RESP DISTRESS NOTED AT THIS TIME. WILL CONTINUE TO MONITOR. Addendum: 05/23/19 at 1427 by KIMI JAIMES RT Amended: Links added.
--- NOTE | 2019-05-23 20:49 | NUR ---
PT RCVD TRACH'D ON COOL AEROSOL WITH CHARTED SETTINGS. PT JIMBO TX WELL. SX DONE. PT TRACH IS PATENT AND SECURE. AMBU BAG AT BEDSIDE. NO SOB NOTED. Addendum: 05/23/19 at 2048 by USHA SUMMERS RT Amended: Links added.
[2019-05-23] MEDS: POLYETHYLENE GLYCOL 3350 17 GM POWD.PACK GT SCH (21:09)
[2019-05-23 21:26] VITALS: BP 111/55
[2019-05-24] MEDS: ALBUTEROL FS 2.5 MG/3 ML VIAL.NEB NEB SCH ×4 (01:28→19:40)
[2019-05-24] MEDS: CHLORHEXIDINE GLUCONATE 15 ML UDC MM SCH ×2 (05:42→17:01)
[2019-05-24] MEDS: MYCOPHENOLATE MOFETIL SUSP 500 MG/2.5 ML UDC GT SCH ×2 (05:42→17:01)
[2019-05-24] MEDS: POLYVINYL ALCOHOL 15 ML BOTTLE EACHEYE SCH ×4 (05:42→23:07)
[2019-05-24 07:48] VITALS: BP 110/49
[2019-05-24] MEDS: FOLIC ACID 1 MG TABLET GT SCH ×2 (08:27→17:01)
[2019-05-24] MEDS: SERTRALINE HCL 25 MG TABLET GT SCH (08:27)
[2019-05-24] MEDS: LEVETIRACETAM SOL (5 ML) 100 MG/ML UDC GT SCH ×2 (08:27→21:26)
[2019-05-24] MEDS: SENNOSIDES 8.6 MG TABLET GT SCH (08:27)
[2019-05-24] MEDS: BACLOFEN (10 MG) 10 MG TABLET GT SCH ×3 (08:27→17:01)
[2019-05-24] MEDS: HEPARIN SODIUM, PORCINE 5000 UNITS/1 ML VIAL SQ SCH ×2 (08:28→21:27)
[2019-05-24] MEDS: Z GUARD REMEDY 4 OZ OINT TP SCH ×2 (09:00→21:27)
[2019-05-24] MEDS: HYDROGEN PEROXIDE 480 ML BOTTLE TP SCH ×2 (10:00→21:27)
--- NOTE | 2019-05-24 10:19 | NUR ---
RT NOTE: REC'D TRACH PT ON COOL AEROSOL. RENKenia BAG @ BEDSIDE. SX DONE PRN. TRACH PATENT AND SECURED. TRACH CARE DONE. NO RESP DISTRESS NOTED AT THIS TIME. WILL CONTINUE TO MONITOR. Addendum: 05/24/19 at 1020 by KIMI JAIMES RT Amended: Links added.
--- NOTE | 2019-05-24 13:00 | NUR ---
Asked Dr Aguilar if he wanted to order a psych consult for pt since she is on Zoloft. He said pt is on a very low dose of Zoloft and there is no need for a psych consult.
[2019-05-24] MEDS: JEVITY 1.2 CAL 1,000 ML BOTTLE GT PRN (14:37)
[2019-05-24 21:09] VITALS: BP 114/64
[2019-05-24] MEDS: POLYETHYLENE GLYCOL 3350 17 GM POWD.PACK GT SCH (21:27)
[2019-05-25] MEDS: ALBUTEROL FS 2.5 MG/3 ML VIAL.NEB NEB SCH ×4 (00:44→19:30)
[2019-05-25] MEDS: MYCOPHENOLATE MOFETIL SUSP 500 MG/2.5 ML UDC GT SCH ×2 (05:24→17:56)
[2019-05-25] MEDS: CHLORHEXIDINE GLUCONATE 15 ML UDC MM SCH ×2 (05:24→17:56)
[2019-05-25] MEDS: POLYVINYL ALCOHOL 15 ML BOTTLE EACHEYE SCH ×4 (05:24→23:14)
[2019-05-25 07:47] VITALS: BP 118/65
[2019-05-25] MEDS: HYDROGEN PEROXIDE 480 ML BOTTLE TP SCH ×2 (08:26→21:00)
[2019-05-25] MEDS: BACLOFEN (10 MG) 10 MG TABLET GT SCH ×3 (09:49→16:30)
[2019-05-25] MEDS: SENNOSIDES 8.6 MG TABLET GT SCH (09:49)
[2019-05-25] MEDS: HEPARIN SODIUM, PORCINE 5000 UNITS/1 ML VIAL SQ SCH ×2 (09:49→20:13)
[2019-05-25] MEDS: FOLIC ACID 1 MG TABLET GT SCH ×2 (09:49→16:29)
[2019-05-25] MEDS: SERTRALINE HCL 25 MG TABLET GT SCH (09:49)
[2019-05-25] MEDS: Z GUARD REMEDY 4 OZ OINT TP SCH ×2 (09:49→20:12)
[2019-05-25] MEDS: LEVETIRACETAM SOL (5 ML) 100 MG/ML UDC GT SCH ×2 (09:49→20:12)
--- NOTE | 2019-05-25 13:10 | NUR ---
The pt.'s family was not able to attend this month's Family Support Group.
[2019-05-25 20:26] VITALS: BP 117/57
[2019-05-25] MEDS: POLYETHYLENE GLYCOL 3350 17 GM POWD.PACK GT SCH (21:29)
[2019-05-26] MEDS: JEVITY 1.2 CAL 1,000 ML BOTTLE GT PRN ×2 (00:09→19:04)
[2019-05-26] MEDS: ALBUTEROL FS 2.5 MG/3 ML VIAL.NEB NEB SCH ×4 (00:40→19:40)
[2019-05-26] MEDS: CHLORHEXIDINE GLUCONATE 15 ML UDC MM SCH ×2 (06:01→17:32)
[2019-05-26] MEDS: POLYVINYL ALCOHOL 15 ML BOTTLE EACHEYE SCH ×4 (06:01→23:35)
[2019-05-26] MEDS: MYCOPHENOLATE MOFETIL SUSP 500 MG/2.5 ML UDC GT SCH ×2 (06:01→17:32)
[2019-05-26 07:58] VITALS: BP 106/70
[2019-05-26] MEDS: HYDROGEN PEROXIDE 480 ML BOTTLE TP SCH ×2 (08:36→19:40)
[2019-05-26] MEDS: FOLIC ACID 1 MG TABLET GT SCH ×2 (09:51→17:32)
[2019-05-26] MEDS: BACLOFEN (10 MG) 10 MG TABLET GT SCH ×3 (09:51→17:32)
[2019-05-26] MEDS: SENNOSIDES 8.6 MG TABLET GT SCH (09:51)
[2019-05-26] MEDS: LEVETIRACETAM SOL (5 ML) 100 MG/ML UDC GT SCH ×2 (09:51→20:24)
[2019-05-26] MEDS: HEPARIN SODIUM, PORCINE 5000 UNITS/1 ML VIAL SQ SCH ×2 (09:52→20:24)
[2019-05-26] MEDS: SERTRALINE HCL 25 MG TABLET GT SCH (09:52)
[2019-05-26] MEDS: Z GUARD REMEDY 4 OZ OINT TP SCH ×2 (09:52→20:24)
--- NOTE | 2019-05-26 16:39 | NUR ---
PATIENT RECEIVED ON COOL AEROSOL. TRACH IS PATENT AND SECURED. SPARE TRACH AND BVM IS AT BEDSIDE. PT. HAS EQUAL CHEST RISE WITH CLEAR AND DIMINISHED BREATH SOUNDS. SX. SMALL AMOUNT OF GREEN THICK SECRETIONS T/O THE DAY. PT TOLERATED BREATHING TX'S WELL. TRACH CARE WAS DONE. Addendum: 05/26/19 at 1643 by ANDREINA YOUNGER RT Amended: Links added.
--- NOTE | 2019-05-26 19:51 | NUR ---
RT NOTE: RECEIVED TRACH PT ON COOL AEROSOL. AMBU BAG @ BEDSIDE. Q6 BREATHING TX GIVEN PER MD ORDERS WITH NO ADVERSE REACTION NOTED. SX DONE PRN. TRACH PATENT AND SECURED. TRACH CARE DONE. NO RESP DISTRESS NOTED AT THIS TIME. WILL CONTINUE TO MONITOR PT Addendum: 05/27/19 at 0240 by DOV GREENBERG RT Amended: Links added.
[2019-05-26 19:57] VITALS: BP 136/67
[2019-05-26] MEDS: POLYETHYLENE GLYCOL 3350 17 GM POWD.PACK GT SCH (21:10)
[2019-05-27] MEDS: ALBUTEROL FS 2.5 MG/3 ML VIAL.NEB NEB SCH ×4 (01:25→20:00)
[2019-05-27] MEDS: MYCOPHENOLATE MOFETIL SUSP 500 MG/2.5 ML UDC GT SCH ×2 (05:20→18:00)
[2019-05-27] MEDS: POLYVINYL ALCOHOL 15 ML BOTTLE EACHEYE SCH ×4 (05:20→23:02)
[2019-05-27] MEDS: CHLORHEXIDINE GLUCONATE 15 ML UDC MM SCH ×2 (05:20→18:00)
[2019-05-27 07:37] VITALS: BP 125/69
[2019-05-27] MEDS: SERTRALINE HCL 25 MG TABLET GT SCH (08:29)
[2019-05-27] MEDS: LEVETIRACETAM SOL (5 ML) 100 MG/ML UDC GT SCH ×2 (08:29→20:36)
[2019-05-27] MEDS: FOLIC ACID 1 MG TABLET GT SCH ×2 (08:29→16:19)
[2019-05-27] MEDS: SENNOSIDES 8.6 MG TABLET GT SCH (08:29)
[2019-05-27] MEDS: BACLOFEN (10 MG) 10 MG TABLET GT SCH ×3 (08:29→16:19)
[2019-05-27] MEDS: HEPARIN SODIUM, PORCINE 5000 UNITS/1 ML VIAL SQ SCH ×2 (08:29→20:39)
[2019-05-27] MEDS: Z GUARD REMEDY 4 OZ OINT TP SCH ×2 (09:00→20:39)
[2019-05-27] MEDS: HYDROGEN PEROXIDE 480 ML BOTTLE TP SCH ×2 (09:00→20:39)
[2019-05-27] MEDS: JEVITY 1.2 CAL 1,000 ML BOTTLE GT PRN (12:44)
--- NOTE | 2019-05-27 13:30 | NUR ---
IDT meeting held today. Pharmacy recommended to do CBC and BMP. Referred to Dr Aguilar and he agreed.
--- NOTE | 2019-05-27 14:22 | NUR ---
INTERDISCIPLINARY PLAN OF CARE CONFERENCE took place today. The patients responsible libertarian/ Lisa Tellez was not able to attend or participate via phone conference. Per Charge nurse the pt. is stable. NNO. Dr. Lubin and Interdisciplinary team discussed the plan of care in detail. Current orders as well as treatments and medications were reviewed. Please see other disciplines IDT notes for further details.
[2019-05-27 15:05] LABS: CALCIUM, SERUM 8.8 mg/dL (8.5-10.1); CREATININE 0.6 mg/dL (0.6-1.3)
[2019-05-27 15:08] LABS: BASOPHILS % (AUTO) 0.4 % (0.0-2.0); EOSINOPHILS % (AUTO) 2.2 % (0.0-6.0); HEMATOCRIT 34 % (33-45); LYMPHOCYTES # (AUTO) 1.8 /CMM (0.8-4.8); MEAN CORPUSCULAR HGB CONC 33 g/dl (31.0-36.0); MEAN CORPUSCULAR VOLUME 87 fL (82-100); MONOCYTES # (AUTO) 0.7 /CMM (0.1-1.30); NEUTROPHILS # (AUTO) 3.5 /CMM (1.8-8.9); NEUTROPHILS % (AUTO) 56.4 % (43.0-81.0); PLATELET COUNT (AUTO) 339 /CMM (150-450); RED BLOOD CELL COUNT(AUTO) 3.88 MIL/uL (4.0-5.2); WHITE BLOOD COUNT (AUTO) 6.1 K/uL (4.3-11.0)
[2019-05-27 20:22] VITALS: BP 113/60
[2019-05-27] MEDS: POLYETHYLENE GLYCOL 3350 17 GM POWD.PACK GT SCH (21:13)
[2019-05-28] MEDS: ALBUTEROL FS 2.5 MG/3 ML VIAL.NEB NEB SCH ×4 (01:44→20:19)
[2019-05-28] MEDS: CHLORHEXIDINE GLUCONATE 15 ML UDC MM SCH ×2 (05:27→17:40)
[2019-05-28] MEDS: MYCOPHENOLATE MOFETIL SUSP 500 MG/2.5 ML UDC GT SCH ×2 (05:27→17:40)
[2019-05-28] MEDS: JEVITY 1.2 CAL 1,000 ML BOTTLE GT PRN (05:27)
[2019-05-28] MEDS: POLYVINYL ALCOHOL 15 ML BOTTLE EACHEYE SCH ×4 (05:27→23:28)
[2019-05-28] MEDS: HYDROGEN PEROXIDE 480 ML BOTTLE TP SCH ×2 (08:09→20:38)
[2019-05-28 08:33] VITALS: BP 140/78
[2019-05-28] MEDS: FOLIC ACID 1 MG TABLET GT SCH ×2 (08:52→17:04)
[2019-05-28] MEDS: LEVETIRACETAM SOL (5 ML) 100 MG/ML UDC GT SCH ×2 (08:53→20:38)
[2019-05-28] MEDS: BACLOFEN (10 MG) 10 MG TABLET GT SCH ×3 (08:53→17:04)
[2019-05-28] MEDS: SENNOSIDES 8.6 MG TABLET GT SCH (08:54)
[2019-05-28] MEDS: SERTRALINE HCL 25 MG TABLET GT SCH (08:54)
[2019-05-28] MEDS: HEPARIN SODIUM, PORCINE 5000 UNITS/1 ML VIAL SQ SCH ×2 (08:58→20:39)
[2019-05-28] MEDS: Z GUARD REMEDY 4 OZ OINT TP SCH ×2 (08:58→20:38)
[2019-05-28 19:25] VITALS: BP 120/71
[2019-05-28 20:42] VITALS: BP 120/71
[2019-05-28] MEDS: POLYETHYLENE GLYCOL 3350 17 GM POWD.PACK GT SCH (21:25)
[2019-05-29] MEDS: ALBUTEROL FS 2.5 MG/3 ML VIAL.NEB NEB SCH ×4 (01:39→20:02)
[2019-05-29] MEDS: MYCOPHENOLATE MOFETIL SUSP 500 MG/2.5 ML UDC GT SCH ×2 (05:44→17:18)
[2019-05-29] MEDS: POLYVINYL ALCOHOL 15 ML BOTTLE EACHEYE SCH ×4 (05:44→23:30)
[2019-05-29] MEDS: JEVITY 1.2 CAL 1,000 ML BOTTLE GT PRN ×2 (05:44→17:28)
[2019-05-29] MEDS: CHLORHEXIDINE GLUCONATE 15 ML UDC MM SCH ×2 (05:44→17:18)
[2019-05-29 07:58] VITALS: BP 124/68
[2019-05-29] MEDS: HYDROGEN PEROXIDE 480 ML BOTTLE TP SCH ×2 (09:00→21:08)
[2019-05-29] MEDS: Z GUARD REMEDY 4 OZ OINT TP SCH ×2 (09:00→20:06)
[2019-05-29] MEDS: LEVETIRACETAM SOL (5 ML) 100 MG/ML UDC GT SCH ×2 (09:27→20:06)
[2019-05-29] MEDS: BACLOFEN (10 MG) 10 MG TABLET GT SCH ×3 (09:27→16:54)
[2019-05-29] MEDS: FOLIC ACID 1 MG TABLET GT SCH ×2 (09:27→16:54)
[2019-05-29] MEDS: SERTRALINE HCL 25 MG TABLET GT SCH (09:27)
[2019-05-29] MEDS: SENNOSIDES 8.6 MG TABLET GT SCH (09:27)
[2019-05-29] MEDS: HEPARIN SODIUM, PORCINE 5000 UNITS/1 ML VIAL SQ SCH ×2 (09:28→20:06)
[2019-05-29 19:49] VITALS: BP 123/70
[2019-05-29] MEDS: POLYETHYLENE GLYCOL 3350 17 GM POWD.PACK GT SCH (21:59)
[2019-05-30] MEDS: ALBUTEROL FS 2.5 MG/3 ML VIAL.NEB NEB SCH ×4 (01:51→19:27)
[2019-05-30] MEDS: MYCOPHENOLATE MOFETIL SUSP 500 MG/2.5 ML UDC GT SCH ×2 (05:01→18:29)
[2019-05-30] MEDS: POLYVINYL ALCOHOL 15 ML BOTTLE EACHEYE SCH ×4 (05:01→23:13)
[2019-05-30] MEDS: CHLORHEXIDINE GLUCONATE 15 ML UDC MM SCH ×2 (05:01→18:29)
[2019-05-30 07:22] VITALS: BP 113/60
[2019-05-30] MEDS: SENNOSIDES 8.6 MG TABLET GT SCH (09:00)
[2019-05-30] MEDS: HYDROGEN PEROXIDE 480 ML BOTTLE TP SCH ×2 (09:00→21:00)
[2019-05-30] MEDS: Z GUARD REMEDY 4 OZ OINT TP SCH ×2 (09:00→20:06)
[2019-05-30] MEDS: LEVETIRACETAM SOL (5 ML) 100 MG/ML UDC GT SCH ×2 (09:00→20:06)
[2019-05-30] MEDS: SERTRALINE HCL 25 MG TABLET GT SCH (09:00)
[2019-05-30] MEDS: BACLOFEN (10 MG) 10 MG TABLET GT SCH ×3 (09:00→16:11)
[2019-05-30] MEDS: FOLIC ACID 1 MG TABLET GT SCH ×2 (09:00→16:11)
[2019-05-30] MEDS: HEPARIN SODIUM, PORCINE 5000 UNITS/1 ML VIAL SQ SCH ×2 (09:00→20:06)
--- NOTE | 2019-05-30 09:14 | NUR ---
RT NOTE: REC'D TRACH PT ON COOL AEROSOL. LUIS F BAG @ BEDSIDE. SX DONE PRN. TRACH PATENT AND SECURED. TRACH CARE DONE. NO RESP DISTRESS NOTED AT THIS TIME. WILL CONTINUE TO MONITOR. Addendum: 05/30/19 at 0914 by KIMI JAIMES RT Amended: Links added.
[2019-05-30] MEDS: JEVITY 1.2 CAL 1,000 ML BOTTLE GT PRN (13:10)
[2019-05-30 19:53] VITALS: BP 121/64
[2019-05-30] MEDS: POLYETHYLENE GLYCOL 3350 17 GM POWD.PACK GT SCH (22:00)
[2019-05-31] MEDS: ALBUTEROL FS 2.5 MG/3 ML VIAL.NEB NEB SCH ×4 (01:29→19:30)
[2019-05-31] MEDS: CHLORHEXIDINE GLUCONATE 15 ML UDC MM SCH ×2 (05:26→17:29)
[2019-05-31] MEDS: MYCOPHENOLATE MOFETIL SUSP 500 MG/2.5 ML UDC GT SCH ×2 (05:26→17:29)
[2019-05-31] MEDS: POLYVINYL ALCOHOL 15 ML BOTTLE EACHEYE SCH ×3 (05:26→17:29)
[2019-05-31 07:55] VITALS: BP 112/79
[2019-05-31] MEDS: FOLIC ACID 1 MG TABLET GT SCH ×2 (08:28→17:29)
[2019-05-31] MEDS: LEVETIRACETAM SOL (5 ML) 100 MG/ML UDC GT SCH ×2 (08:28→20:16)
[2019-05-31] MEDS: SENNOSIDES 8.6 MG TABLET GT SCH (08:28)
[2019-05-31] MEDS: BACLOFEN (10 MG) 10 MG TABLET GT SCH ×3 (08:28→17:29)
[2019-05-31] MEDS: SERTRALINE HCL 25 MG TABLET GT SCH (08:28)
[2019-05-31] MEDS: HEPARIN SODIUM, PORCINE 5000 UNITS/1 ML VIAL SQ SCH ×2 (08:29→20:16)
[2019-05-31] MEDS: Z GUARD REMEDY 4 OZ OINT TP SCH ×2 (08:29→20:16)
[2019-05-31] MEDS: HYDROGEN PEROXIDE 480 ML BOTTLE TP SCH ×2 (09:00→21:09)
[2019-05-31 20:24] VITALS: BP 123/80
[2019-05-31] MEDS: POLYETHYLENE GLYCOL 3350 17 GM POWD.PACK GT SCH (22:28)
[2019-06-01] MEDS: POLYVINYL ALCOHOL 15 ML BOTTLE EACHEYE SCH ×5 (00:51→23:22)
[2019-06-01] MEDS: ALBUTEROL FS 2.5 MG/3 ML VIAL.NEB NEB SCH ×4 (01:02→20:19)
[2019-06-01] MEDS: CHLORHEXIDINE GLUCONATE 15 ML UDC MM SCH ×2 (05:01→17:47)
[2019-06-01] MEDS: MYCOPHENOLATE MOFETIL SUSP 500 MG/2.5 ML UDC GT SCH ×2 (05:01→17:47)
[2019-06-01] MEDS: JEVITY 1.2 CAL 1,000 ML BOTTLE GT PRN (06:23)
[2019-06-01 07:42] VITALS: BP 128/53
[2019-06-01] MEDS: HYDROGEN PEROXIDE 480 ML BOTTLE TP SCH ×2 (07:53→21:08)
[2019-06-01] MEDS: FOLIC ACID 1 MG TABLET GT SCH ×2 (08:16→17:47)
[2019-06-01] MEDS: SERTRALINE HCL 25 MG TABLET GT SCH (08:16)
[2019-06-01] MEDS: SENNOSIDES 8.6 MG TABLET GT SCH (08:16)
[2019-06-01] MEDS: BACLOFEN (10 MG) 10 MG TABLET GT SCH ×3 (08:16→17:47)
[2019-06-01] MEDS: LEVETIRACETAM SOL (5 ML) 100 MG/ML UDC GT SCH ×2 (08:16→20:25)
[2019-06-01] MEDS: HEPARIN SODIUM, PORCINE 5000 UNITS/1 ML VIAL SQ SCH ×2 (08:17→20:26)
[2019-06-01] MEDS: Z GUARD REMEDY 4 OZ OINT TP SCH ×2 (08:17→20:26)
--- NOTE | 2019-06-01 15:28 | NUR ---
HILTON called the pt.'s daughter, Lisa to encourage her to come visit the pt. more often. HILTON left her a voicemail and call back number.
[2019-06-01 21:23] VITALS: BP 140/61
--- NOTE | 2019-06-01 21:43 | NUR ---
RT NOTE PT RECEIVED TRACHED ON COOL AEROSOL @ 28%. AMBU BAG/BACK UP TRACH @ BEDSIDE. TX GIVEN, NO ADVERSE REACTIONS NOTED. SX DONE, TRACH SECURED AND PATENT. WATER LEVEL GOOD. NO SOB NOTED. WILL MONITOR. Addendum: 06/01/19 at 2143 by ALBERTA DON RT Amended: Links added.
[2019-06-01] MEDS: POLYETHYLENE GLYCOL 3350 17 GM POWD.PACK GT SCH (22:32)
[2019-06-02] MEDS: ALBUTEROL FS 2.5 MG/3 ML VIAL.NEB NEB SCH ×4 (01:50→20:06)
[2019-06-02] MEDS: MYCOPHENOLATE MOFETIL SUSP 500 MG/2.5 ML UDC GT SCH ×2 (05:13→18:24)
[2019-06-02] MEDS: POLYVINYL ALCOHOL 15 ML BOTTLE EACHEYE SCH ×3 (05:13→18:24)
[2019-06-02] MEDS: CHLORHEXIDINE GLUCONATE 15 ML UDC MM SCH ×2 (05:13→18:24)
[2019-06-02 08:22] VITALS: BP 98/73
[2019-06-02] MEDS: HYDROGEN PEROXIDE 480 ML BOTTLE TP SCH ×2 (09:00→20:06)
[2019-06-02] MEDS: BACLOFEN (10 MG) 10 MG TABLET GT SCH ×3 (09:59→16:40)
[2019-06-02] MEDS: FOLIC ACID 1 MG TABLET GT SCH ×2 (09:59→16:40)
[2019-06-02] MEDS: HEPARIN SODIUM, PORCINE 5000 UNITS/1 ML VIAL SQ SCH ×2 (09:59→21:00)
[2019-06-02] MEDS: SENNOSIDES 8.6 MG TABLET GT SCH (09:59)
[2019-06-02] MEDS: LEVETIRACETAM SOL (5 ML) 100 MG/ML UDC GT SCH ×2 (09:59→21:00)
[2019-06-02] MEDS: SERTRALINE HCL 25 MG TABLET GT SCH (09:59)
[2019-06-02] MEDS: Z GUARD REMEDY 4 OZ OINT TP SCH ×2 (10:00→21:00)
[2019-06-02] MEDS: JEVITY 1.2 CAL 1,000 ML BOTTLE GT PRN (18:25)
[2019-06-02 21:32] VITALS: BP 143/65
[2019-06-02] MEDS: POLYETHYLENE GLYCOL 3350 17 GM POWD.PACK GT SCH (22:15)
[2019-06-03] MEDS: POLYVINYL ALCOHOL 15 ML BOTTLE EACHEYE SCH ×5 (00:17→23:05)
[2019-06-03] MEDS: ALBUTEROL FS 2.5 MG/3 ML VIAL.NEB NEB SCH ×4 (01:54→19:57)
[2019-06-03] MEDS: CHLORHEXIDINE GLUCONATE 15 ML UDC MM SCH ×2 (05:58→17:44)
[2019-06-03] MEDS: MYCOPHENOLATE MOFETIL SUSP 500 MG/2.5 ML UDC GT SCH ×2 (05:58→17:44)
[2019-06-03] MEDS: JEVITY 1.2 CAL 1,000 ML BOTTLE GT PRN ×2 (06:00→17:44)
[2019-06-03 07:59] VITALS: BP 115/70
[2019-06-03] MEDS: BACLOFEN (10 MG) 10 MG TABLET GT SCH ×3 (09:00→16:37)
[2019-06-03] MEDS: FOLIC ACID 1 MG TABLET GT SCH ×2 (09:00→16:37)
[2019-06-03] MEDS: HYDROGEN PEROXIDE 480 ML BOTTLE TP SCH ×2 (09:00→20:36)
[2019-06-03] MEDS: HEPARIN SODIUM, PORCINE 5000 UNITS/1 ML VIAL SQ SCH ×2 (09:00→20:36)
[2019-06-03] MEDS: SERTRALINE HCL 25 MG TABLET GT SCH (09:00)
[2019-06-03] MEDS: SENNOSIDES 8.6 MG TABLET GT SCH (09:00)
[2019-06-03] MEDS: Z GUARD REMEDY 4 OZ OINT TP SCH ×2 (09:00→20:36)
[2019-06-03] MEDS: LEVETIRACETAM SOL (5 ML) 100 MG/ML UDC GT SCH ×2 (09:00→20:35)
[2019-06-03 20:46] VITALS: BP 113/59
[2019-06-03] MEDS: POLYETHYLENE GLYCOL 3350 17 GM POWD.PACK GT SCH (21:02)
[2019-06-04] MEDS: ALBUTEROL FS 2.5 MG/3 ML VIAL.NEB NEB SCH ×4 (01:52→20:18)
[2019-06-04] MEDS: MYCOPHENOLATE MOFETIL SUSP 500 MG/2.5 ML UDC GT SCH ×2 (05:12→17:06)
[2019-06-04] MEDS: POLYVINYL ALCOHOL 15 ML BOTTLE EACHEYE SCH ×4 (05:12→23:19)
[2019-06-04] MEDS: CHLORHEXIDINE GLUCONATE 15 ML UDC MM SCH ×2 (05:12→17:06)
[2019-06-04 08:00] VITALS: BP 147/92
[2019-06-04] MEDS: HYDROGEN PEROXIDE 480 ML BOTTLE TP SCH ×2 (08:52→20:16)
[2019-06-04] MEDS: Z GUARD REMEDY 4 OZ OINT TP SCH ×2 (09:00→20:16)
[2019-06-04] MEDS: FOLIC ACID 1 MG TABLET GT SCH ×2 (09:22→16:16)
[2019-06-04] MEDS: SENNOSIDES 8.6 MG TABLET GT SCH (09:23)
[2019-06-04] MEDS: BACLOFEN (10 MG) 10 MG TABLET GT SCH ×3 (09:23→16:16)
[2019-06-04] MEDS: LEVETIRACETAM SOL (5 ML) 100 MG/ML UDC GT SCH ×2 (09:23→20:15)
[2019-06-04] MEDS: SERTRALINE HCL 25 MG TABLET GT SCH (09:23)
[2019-06-04] MEDS: HEPARIN SODIUM, PORCINE 5000 UNITS/1 ML VIAL SQ SCH ×2 (09:34→20:16)
[2019-06-04] MEDS: JEVITY 1.2 CAL 1,000 ML BOTTLE GT PRN (09:35)
--- NOTE | 2019-06-04 20:30 | NUR ---
RECEIVED TRACH PT ON COOL AEROSOL 28% 5L. AMBU BAG @ BEDSIDE. Q6 BREATHING TX GIVEN PER MD ORDERS WITH NO ADVERSE REACTION NOTED. SX DONE PRN. TRACH PATENT AND SECURED. NO RESP DISTRESS NOTED AT THIS TIME. WILL CONTINUE TO MONITOR PT T/O SHIFT.
[2019-06-04 20:37] VITALS: BP 127/52
[2019-06-04] MEDS: POLYETHYLENE GLYCOL 3350 17 GM POWD.PACK GT SCH (21:14)
[2019-06-05] MEDS: ALBUTEROL FS 2.5 MG/3 ML VIAL.NEB NEB SCH ×4 (01:22→19:19)
[2019-06-05] MEDS: POLYVINYL ALCOHOL 15 ML BOTTLE EACHEYE SCH ×3 (05:05→17:13)
[2019-06-05] MEDS: CHLORHEXIDINE GLUCONATE 15 ML UDC MM SCH ×2 (05:05→17:13)
[2019-06-05] MEDS: JEVITY 1.2 CAL 1,000 ML BOTTLE GT PRN (05:05)
[2019-06-05] MEDS: MYCOPHENOLATE MOFETIL SUSP 500 MG/2.5 ML UDC GT SCH ×2 (05:05→17:13)
[2019-06-05 07:23] VITALS: BP 120/76
[2019-06-05] MEDS: HYDROGEN PEROXIDE 480 ML BOTTLE TP SCH ×2 (09:00→19:19)
[2019-06-05] MEDS: BACLOFEN (10 MG) 10 MG TABLET GT SCH ×3 (09:44→16:07)
[2019-06-05] MEDS: Z GUARD REMEDY 4 OZ OINT TP SCH ×2 (09:44→21:06)
[2019-06-05] MEDS: FOLIC ACID 1 MG TABLET GT SCH ×2 (09:44→16:07)
[2019-06-05] MEDS: SERTRALINE HCL 25 MG TABLET GT SCH (09:44)
[2019-06-05] MEDS: LEVETIRACETAM SOL (5 ML) 100 MG/ML UDC GT SCH ×2 (09:44→21:07)
[2019-06-05] MEDS: SENNOSIDES 8.6 MG TABLET GT SCH (09:44)
[2019-06-05] MEDS: HEPARIN SODIUM, PORCINE 5000 UNITS/1 ML VIAL SQ SCH ×2 (09:44→21:05)
--- NOTE | 2019-06-05 13:00 | NUR ---
Seen and examined by Dr. Aguilar, no new order given.
[2019-06-05 20:33] VITALS: BP 123/81
[2019-06-05] MEDS: POLYETHYLENE GLYCOL 3350 17 GM POWD.PACK GT SCH (21:07)
[2019-06-06] MEDS: ALBUTEROL FS 2.5 MG/3 ML VIAL.NEB NEB SCH ×4 (01:34→19:52)
--- NOTE | 2019-06-06 03:43 | NUR ---
PATIENT RECEIVED ON 28% AEROSOL T-TUBE, TOLERATING WITH NO DISTRESS/SOB NOTED. SUCTIONED FOR MINIMAL, THICK, YELLOW SECRETIONS. GIVEN IN-LINE TREATMENTS WITH NO ADVERSE REACTIONS. AMBU BAG AT BEDSIDE. TRACH CARE DONE. Addendum: 06/06/19 at 0344 by JANAY CANCINO RT Amended: Links added.
[2019-06-06] MEDS: POLYVINYL ALCOHOL 15 ML BOTTLE EACHEYE SCH ×4 (05:51→17:01)
[2019-06-06] MEDS: MYCOPHENOLATE MOFETIL SUSP 500 MG/2.5 ML UDC GT SCH ×2 (05:51→17:01)
[2019-06-06] MEDS: CHLORHEXIDINE GLUCONATE 15 ML UDC MM SCH ×2 (05:51→17:01)
[2019-06-06] MEDS: FOLIC ACID 1 MG TABLET GT SCH ×2 (08:02→17:01)
[2019-06-06] MEDS: LEVETIRACETAM SOL (5 ML) 100 MG/ML UDC GT SCH ×2 (08:02→20:21)
[2019-06-06] MEDS: SENNOSIDES 8.6 MG TABLET GT SCH (08:02)
[2019-06-06] MEDS: BACLOFEN (10 MG) 10 MG TABLET GT SCH ×3 (08:02→17:01)
[2019-06-06] MEDS: SERTRALINE HCL 25 MG TABLET GT SCH (08:02)
[2019-06-06] MEDS: Z GUARD REMEDY 4 OZ OINT TP SCH ×2 (08:03→20:23)
[2019-06-06] MEDS: HEPARIN SODIUM, PORCINE 5000 UNITS/1 ML VIAL SQ SCH ×2 (08:03→20:23)
[2019-06-06] MEDS: HYDROGEN PEROXIDE 480 ML BOTTLE TP SCH ×2 (08:25→21:49)
[2019-06-06 10:49] VITALS: BP 113/67
[2019-06-06] MEDS: JEVITY 1.2 CAL 1,000 ML BOTTLE GT PRN (18:33)
--- NOTE | 2019-06-06 19:00 | NUR ---
Awake. Moist oral mucosa. Trach with cool aerosol as ordered. GT in place patent no residual. Tolerating Gt formula well. HOB elevated. Aspiration precautions maintained. Patient has decreased mobility. Able to move left hand and head. Able to track with eyes. Patient is on baclofen routine for muscle spasms and currently on Kepra for seizure disorder with Padded side rails. Patient with no skin breakdown noted. Patient does not follow directions and is not able to make needs known. With total care provided. Kept clean and comfortable. Incontinent of bowel and bladder. Turned and repositioned. Heels off loaded. All needs met and attended.
[2019-06-06 19:41] VITALS: BP 125/75
[2019-06-06] MEDS: POLYETHYLENE GLYCOL 3350 17 GM POWD.PACK GT SCH (21:20)
[2019-06-07] MEDS: POLYVINYL ALCOHOL 15 ML BOTTLE EACHEYE SCH ×5 (00:42→23:50)
[2019-06-07] MEDS: ALBUTEROL FS 2.5 MG/3 ML VIAL.NEB NEB SCH ×4 (02:05→20:16)
[2019-06-07] MEDS: MYCOPHENOLATE MOFETIL SUSP 500 MG/2.5 ML UDC GT SCH ×2 (05:08→17:02)
[2019-06-07] MEDS: CHLORHEXIDINE GLUCONATE 15 ML UDC MM SCH ×2 (05:09→17:02)
[2019-06-07 07:56] VITALS: BP 119/74
[2019-06-07] MEDS: SENNOSIDES 8.6 MG TABLET GT SCH (08:47)
[2019-06-07] MEDS: BACLOFEN (10 MG) 10 MG TABLET GT SCH ×3 (08:47→16:57)
[2019-06-07] MEDS: Z GUARD REMEDY 4 OZ OINT TP SCH ×2 (08:47→20:58)
[2019-06-07] MEDS: SERTRALINE HCL 25 MG TABLET GT SCH (08:47)
[2019-06-07] MEDS: HEPARIN SODIUM, PORCINE 5000 UNITS/1 ML VIAL SQ SCH ×2 (08:47→20:58)
[2019-06-07] MEDS: FOLIC ACID 1 MG TABLET GT SCH ×2 (08:47→16:57)
[2019-06-07] MEDS: LEVETIRACETAM SOL (5 ML) 100 MG/ML UDC GT SCH ×2 (08:47→20:58)
[2019-06-07] MEDS: HYDROGEN PEROXIDE 480 ML BOTTLE TP SCH ×2 (09:00→21:00)
[2019-06-07] MEDS: JEVITY 1.2 CAL 1,000 ML BOTTLE GT PRN (14:31)
--- NOTE | 2019-06-07 16:15 | NUR ---
HILTON received a call from [place] Public ConservatorCeleste TEL:[phone] stating, "I consulted with my flame cutting supervisor and Public Guardian cannot take over the care of a patient who already has a conservator unless it is appointed by the court". HILTON informed Celeste that the pt.'s /conservator Zeb Tellez has expressed to HILTON should keep the pt.'s father, informed since he is a physician. However, has communicated to HILTON that he is not the responsible green party and is retirring soon and going to his home country. HILTON also communicated to Celeste that the pt.'s daughter, Lisa who claims to be the secondary conservator is difficult to get in contact with and HILTON has encouraged Lisa to visit the pt. more often. HILTON has requested conservatorship paperwork from Lisa multiple times. HILTON has not received conservatorship paperwork. Celeste stated that HILTON has the option to report conservator, Zeb Tellez to the court by calling [phone] Case #[id number]. HILTON will follow up.
[2019-06-07 20:19] VITALS: BP 130/79
[2019-06-07] MEDS: POLYETHYLENE GLYCOL 3350 17 GM POWD.PACK GT SCH (22:11)
[2019-06-08] MEDS: ALBUTEROL FS 2.5 MG/3 ML VIAL.NEB NEB SCH ×4 (01:17→19:52)
[2019-06-08] MEDS: CHLORHEXIDINE GLUCONATE 15 ML UDC MM SCH ×2 (05:53→18:29)
[2019-06-08] MEDS: MYCOPHENOLATE MOFETIL SUSP 500 MG/2.5 ML UDC GT SCH ×2 (05:53→18:29)
[2019-06-08] MEDS: POLYVINYL ALCOHOL 15 ML BOTTLE EACHEYE SCH ×3 (05:53→18:29)
[2019-06-08] MEDS: JEVITY 1.2 CAL 1,000 ML BOTTLE GT PRN ×2 (06:15→21:07)
[2019-06-08 08:00] VITALS: BP 129/73
--- NOTE | 2019-06-08 08:54 | NUR ---
Per Charge Nurse, Steven eisenberg, HILTON contacted the pt.s daughter, Lisa Tellez to inform her that the pt. requires a neck roll an ask if they can provide one as it would take a long time for us to order and receive a neck roll for the pt. The call went to voicemail and SW left a detailed message and call back number.
[2019-06-08] MEDS: BACLOFEN (10 MG) 10 MG TABLET GT SCH ×3 (08:56→16:56)
[2019-06-08] MEDS: LEVETIRACETAM SOL (5 ML) 100 MG/ML UDC GT SCH ×2 (08:56→21:04)
[2019-06-08] MEDS: FOLIC ACID 1 MG TABLET GT SCH ×2 (08:56→16:56)
[2019-06-08] MEDS: Z GUARD REMEDY 4 OZ OINT TP SCH ×2 (08:56→21:04)
[2019-06-08] MEDS: SERTRALINE HCL 25 MG TABLET GT SCH (08:56)
[2019-06-08] MEDS: HEPARIN SODIUM, PORCINE 5000 UNITS/1 ML VIAL SQ SCH ×2 (08:56→21:04)
[2019-06-08] MEDS: SENNOSIDES 8.6 MG TABLET GT SCH (08:56)
[2019-06-08] MEDS: HYDROGEN PEROXIDE 480 ML BOTTLE TP SCH ×2 (09:22→20:10)
[2019-06-08 20:07] VITALS: BP 142/73
--- NOTE | 2019-06-08 20:19 | NUR ---
PT RCVD TRACH'D ON COOL AEROSOL WITH CHARTED SETTINGS. PT JIMBO TX WELL. SX DONE. PT TRACH IS PATENT AND SECURE. AMBU BAG AT BEDSIDE. NO SOB NOTED. Addendum: 06/08/19 at 2019 by USHA SUMMERS RT Amended: Links added.
[2019-06-08] MEDS: POLYETHYLENE GLYCOL 3350 17 GM POWD.PACK GT SCH (21:05)
[2019-06-09] MEDS: POLYVINYL ALCOHOL 15 ML BOTTLE EACHEYE SCH ×5 (00:27→23:11)
[2019-06-09] MEDS: ALBUTEROL FS 2.5 MG/3 ML VIAL.NEB NEB SCH ×4 (01:09→20:23)
[2019-06-09] MEDS: MYCOPHENOLATE MOFETIL SUSP 500 MG/2.5 ML UDC GT SCH ×2 (05:17→17:23)
[2019-06-09] MEDS: CHLORHEXIDINE GLUCONATE 15 ML UDC MM SCH ×2 (05:17→17:23)
[2019-06-09 07:43] VITALS: BP 112/77
[2019-06-09] MEDS: Z GUARD REMEDY 4 OZ OINT TP SCH ×2 (09:00→21:14)
[2019-06-09] MEDS: FOLIC ACID 1 MG TABLET GT SCH ×2 (09:00→17:23)
[2019-06-09] MEDS: SENNOSIDES 8.6 MG TABLET GT SCH (09:00)
[2019-06-09] MEDS: BACLOFEN (10 MG) 10 MG TABLET GT SCH ×3 (09:00→17:23)
[2019-06-09] MEDS: HEPARIN SODIUM, PORCINE 5000 UNITS/1 ML VIAL SQ SCH ×2 (09:00→21:13)
[2019-06-09] MEDS: SERTRALINE HCL 25 MG TABLET GT SCH (09:00)
[2019-06-09] MEDS: LEVETIRACETAM SOL (5 ML) 100 MG/ML UDC GT SCH ×2 (09:00→21:13)
[2019-06-09] MEDS: HYDROGEN PEROXIDE 480 ML BOTTLE TP SCH ×2 (09:52→20:27)
--- NOTE | 2019-06-09 09:52 | NUR ---
RT NOTE: REC'D TRACH PT ON COOL AEROSOL PER MD ORDER. LUIS F BAG @ BEDSIDE. SX DONE PRN. TRACH PATENT AND SECURED. TRACH CARE DONE. NO RESP DISTRESS NOTED AT THIS TIME. WILL CONTINUE TO MONITOR. Addendum: 06/09/19 at 0952 by KIMI JAIMES RT Amended: Links added.
[2019-06-09] MEDS: JEVITY 1.2 CAL 1,000 ML BOTTLE GT PRN (17:24)
[2019-06-09 20:22] VITALS: BP 107/54
[2019-06-09] MEDS: POLYETHYLENE GLYCOL 3350 17 GM POWD.PACK GT SCH (21:14)
[2019-06-10] MEDS: ALBUTEROL FS 2.5 MG/3 ML VIAL.NEB NEB SCH ×4 (01:23→19:23)
[2019-06-10] MEDS: CHLORHEXIDINE GLUCONATE 15 ML UDC MM SCH ×2 (05:18→18:43)
[2019-06-10] MEDS: POLYVINYL ALCOHOL 15 ML BOTTLE EACHEYE SCH ×4 (05:18→23:44)
[2019-06-10] MEDS: MYCOPHENOLATE MOFETIL SUSP 500 MG/2.5 ML UDC GT SCH ×2 (05:18→18:42)
[2019-06-10] MEDS: JEVITY 1.2 CAL 1,000 ML BOTTLE GT PRN ×2 (05:19→23:45)
[2019-06-10] MEDS: HYDROGEN PEROXIDE 480 ML BOTTLE TP SCH ×2 (07:37→21:11)
[2019-06-10 08:00] VITALS: BP 110/60
[2019-06-10] MEDS: SERTRALINE HCL 25 MG TABLET GT SCH (08:58)
[2019-06-10] MEDS: FOLIC ACID 1 MG TABLET GT SCH ×2 (08:58→17:00)
[2019-06-10] MEDS: BACLOFEN (10 MG) 10 MG TABLET GT SCH ×3 (08:58→17:00)
[2019-06-10] MEDS: SENNOSIDES 8.6 MG TABLET GT SCH (08:58)
[2019-06-10] MEDS: LEVETIRACETAM SOL (5 ML) 100 MG/ML UDC GT SCH ×2 (08:58→21:24)
[2019-06-10] MEDS: HEPARIN SODIUM, PORCINE 5000 UNITS/1 ML VIAL SQ SCH ×2 (09:00→21:24)
[2019-06-10] MEDS: Z GUARD REMEDY 4 OZ OINT TP SCH ×2 (09:00→21:24)
--- NOTE | 2019-06-10 15:38 | NUR ---
HILTON contacted the pt.s daughter, Lisa [phone] to inquire about neck roll and family satisfaction survey S Lisa stated she would visit pt. today. Call went to [employer] and HILTON left call back number.
--- NOTE | 2019-06-10 16:19 | NUR ---
HILTON received a call from pt.'s daughter, Lisa stating that she had brought neck pillow for pt. and brought completed Family Satisfaction Survey. Lisa communicated that she would the pt. to get a hair cut and feels comfortable with staff providing that care for pt. do it doesn't tangle. Noted. Family requested that pt. be showered 3x/week instead of 2x/week if possible. SW will discuss with director and inform family if it is possible. [facility] was agreeable to plan.
[2019-06-10 19:41] VITALS: BP 105/67
[2019-06-10] MEDS: POLYETHYLENE GLYCOL 3350 17 GM POWD.PACK GT SCH (21:24)
[2019-06-11] MEDS: ALBUTEROL FS 2.5 MG/3 ML VIAL.NEB NEB SCH ×4 (01:35→20:17)
[2019-06-11] MEDS: POLYVINYL ALCOHOL 15 ML BOTTLE EACHEYE SCH ×3 (05:40→17:30)
[2019-06-11] MEDS: MYCOPHENOLATE MOFETIL SUSP 500 MG/2.5 ML UDC GT SCH ×2 (05:40→17:30)
[2019-06-11] MEDS: CHLORHEXIDINE GLUCONATE 15 ML UDC MM SCH ×2 (05:40→17:30)
[2019-06-11 07:40] VITALS: BP 127/67
[2019-06-11] MEDS: HYDROGEN PEROXIDE 480 ML BOTTLE TP SCH ×2 (08:17→20:17)
[2019-06-11] MEDS: BACLOFEN (10 MG) 10 MG TABLET GT SCH ×3 (09:03→17:22)
[2019-06-11] MEDS: FOLIC ACID 1 MG TABLET GT SCH ×2 (09:03→17:22)
[2019-06-11] MEDS: LEVETIRACETAM SOL (5 ML) 100 MG/ML UDC GT SCH ×2 (09:03→20:41)
[2019-06-11] MEDS: SENNOSIDES 8.6 MG TABLET GT SCH (09:04)
[2019-06-11] MEDS: SERTRALINE HCL 25 MG TABLET GT SCH (09:04)
[2019-06-11] MEDS: HEPARIN SODIUM, PORCINE 5000 UNITS/1 ML VIAL SQ SCH ×2 (09:58→20:41)
[2019-06-11] MEDS: Z GUARD REMEDY 4 OZ OINT TP SCH ×2 (09:58→20:41)
[2019-06-11] MEDS: JEVITY 1.2 CAL 1,000 ML BOTTLE GT PRN (17:22)
[2019-06-11 20:00] VITALS: BP 132/81
[2019-06-11] MEDS: POLYETHYLENE GLYCOL 3350 17 GM POWD.PACK GT SCH (21:33)
[2019-06-12] MEDS: ALBUTEROL FS 2.5 MG/3 ML VIAL.NEB NEB SCH ×4 (00:58→20:20)
[2019-06-12] MEDS: POLYVINYL ALCOHOL 15 ML BOTTLE EACHEYE SCH ×5 (05:22→23:58)
[2019-06-12] MEDS: MYCOPHENOLATE MOFETIL SUSP 500 MG/2.5 ML UDC GT SCH ×2 (05:22→17:20)
[2019-06-12] MEDS: CHLORHEXIDINE GLUCONATE 15 ML UDC MM SCH ×2 (05:22→17:20)
[2019-06-12] MEDS: JEVITY 1.2 CAL 1,000 ML BOTTLE GT PRN (06:13)
[2019-06-12] MEDS: HYDROGEN PEROXIDE 480 ML BOTTLE TP SCH ×2 (07:36→20:55)
[2019-06-12 08:06] VITALS: BP 149/62
[2019-06-12] MEDS: FOLIC ACID 1 MG TABLET GT SCH ×2 (08:44→17:20)
[2019-06-12] MEDS: SENNOSIDES 8.6 MG TABLET GT SCH (08:44)
[2019-06-12] MEDS: SERTRALINE HCL 25 MG TABLET GT SCH (08:44)
[2019-06-12] MEDS: LEVETIRACETAM SOL (5 ML) 100 MG/ML UDC GT SCH ×2 (08:44→20:21)
[2019-06-12] MEDS: BACLOFEN (10 MG) 10 MG TABLET GT SCH ×3 (08:44→17:20)
[2019-06-12] MEDS: Z GUARD REMEDY 4 OZ OINT TP SCH ×2 (08:52→20:24)
[2019-06-12] MEDS: HEPARIN SODIUM, PORCINE 5000 UNITS/1 ML VIAL SQ SCH ×2 (08:52→20:23)
[2019-06-12 20:23] VITALS: BP 119/66
[2019-06-12] MEDS: POLYETHYLENE GLYCOL 3350 17 GM POWD.PACK GT SCH (21:55)
[2019-06-13] MEDS: ALBUTEROL FS 2.5 MG/3 ML VIAL.NEB NEB SCH ×4 (01:47→20:15)
[2019-06-13] MEDS: POLYVINYL ALCOHOL 15 ML BOTTLE EACHEYE SCH ×3 (05:27→17:52)
[2019-06-13] MEDS: JEVITY 1.2 CAL 1,000 ML BOTTLE GT PRN (05:27)
[2019-06-13] MEDS: CHLORHEXIDINE GLUCONATE 15 ML UDC MM SCH ×2 (05:28→17:52)
[2019-06-13] MEDS: MYCOPHENOLATE MOFETIL SUSP 500 MG/2.5 ML UDC GT SCH ×2 (05:28→17:52)
[2019-06-13 07:53] VITALS: BP 108/88
--- NOTE | 2019-06-13 09:11 | NUR ---
RT NOTE: REC'D TRACH PT ON COOL AEROSOL PER MD ORDER. LUIS F BAG @ BEDSIDE. SX DONE PRN. TRACH PATENT AND SECURED. TRACH CARE DONE. NO RESP DISTRESS NOTED AT THIS TIME. WILL CONTINUE TO MONITOR. Addendum: 06/13/19 at 0911 by KIMI JAIMES RT Amended: Links added.
[2019-06-13] MEDS: HYDROGEN PEROXIDE 480 ML BOTTLE TP SCH ×2 (09:21→20:15)
[2019-06-13] MEDS: LEVETIRACETAM SOL (5 ML) 100 MG/ML UDC GT SCH ×2 (09:30→21:38)
[2019-06-13] MEDS: FOLIC ACID 1 MG TABLET GT SCH ×2 (09:30→17:52)
[2019-06-13] MEDS: SERTRALINE HCL 25 MG TABLET GT SCH (09:30)
[2019-06-13] MEDS: BACLOFEN (10 MG) 10 MG TABLET GT SCH ×3 (09:30→17:52)
[2019-06-13] MEDS: SENNOSIDES 8.6 MG TABLET GT SCH (09:30)
[2019-06-13] MEDS: HEPARIN SODIUM, PORCINE 5000 UNITS/1 ML VIAL SQ SCH ×2 (09:30→21:38)
[2019-06-13] MEDS: Z GUARD REMEDY 4 OZ OINT TP SCH ×2 (09:31→21:39)
[2019-06-13 20:13] VITALS: BP 98/61
[2019-06-13] MEDS: POLYETHYLENE GLYCOL 3350 17 GM POWD.PACK GT SCH (21:39)
--- NOTE | 2019-06-13 23:35 | NUR ---
PT RCVD TRACH'D ON COOL AEROSOL WITH CHARTED SETTINGS. PT JIMBO TX WELL. SX DONE. PT TRACH IS PATENT AND SECURE. AMBU BAG AT BEDSIDE. NO SOB NOTED. Addendum: 06/13/19 at 2335 by USHA SUMMERS RT Amended: Links added.
[2019-06-14] MEDS: POLYVINYL ALCOHOL 15 ML BOTTLE EACHEYE SCH ×4 (00:29→17:01)
[2019-06-14] MEDS: ALBUTEROL FS 2.5 MG/3 ML VIAL.NEB NEB SCH ×4 (01:36→19:30)
[2019-06-14] MEDS: CHLORHEXIDINE GLUCONATE 15 ML UDC MM SCH ×2 (05:45→17:01)
[2019-06-14] MEDS: MYCOPHENOLATE MOFETIL SUSP 500 MG/2.5 ML UDC GT SCH ×2 (05:45→17:01)
[2019-06-14 07:35] VITALS: BP 114/71
[2019-06-14] MEDS: BACLOFEN (10 MG) 10 MG TABLET GT SCH ×3 (09:20→17:01)
[2019-06-14] MEDS: HEPARIN SODIUM, PORCINE 5000 UNITS/1 ML VIAL SQ SCH ×2 (09:20→21:15)
[2019-06-14] MEDS: SENNOSIDES 8.6 MG TABLET GT SCH (09:20)
[2019-06-14] MEDS: LEVETIRACETAM SOL (5 ML) 100 MG/ML UDC GT SCH ×2 (09:20→21:14)
[2019-06-14] MEDS: FOLIC ACID 1 MG TABLET GT SCH ×2 (09:20→17:01)
[2019-06-14] MEDS: SERTRALINE HCL 25 MG TABLET GT SCH (09:20)
[2019-06-14] MEDS: Z GUARD REMEDY 4 OZ OINT TP SCH ×2 (09:21→21:15)
[2019-06-14] MEDS: HYDROGEN PEROXIDE 480 ML BOTTLE TP SCH ×2 (09:32→23:24)
--- NOTE | 2019-06-14 09:40 | NUR ---
RT NOTE: REC'D TRACH PT ON COOL AEROSOL PER MD ORDER. LUIS F BAG @ BEDSIDE. SX DONE PRN. TRACH PATENT AND SECURED. TRACH CARE DONE. NO RESP DISTRESS NOTED AT THIS TIME. WILL CONTINUE TO MONITOR. Addendum: 06/14/19 at 0940 by KIMI JAIMES RT Amended: Links added.
[2019-06-14 20:06] VITALS: BP 135/70
[2019-06-14] MEDS: POLYETHYLENE GLYCOL 3350 17 GM POWD.PACK GT SCH (21:15)
[2019-06-15] MEDS: POLYVINYL ALCOHOL 15 ML BOTTLE EACHEYE SCH ×4 (00:06→17:56)
[2019-06-15] MEDS: ALBUTEROL FS 2.5 MG/3 ML VIAL.NEB NEB SCH ×4 (01:26→19:16)
--- NOTE | 2019-06-15 01:49 | NUR ---
PT RCVD TRACH'D ON COOL AEROSOL WITH CHARTED SETTINGS. PT JIMBO TX WELL. SX DONE. PT TRACH IS PATENT AND SECURE. AMBU BAG AT BEDSIDE. NO SOB NOTED. Addendum: 06/15/19 at 0149 by USHA SUMMERS RT Amended: Links added.
[2019-06-15] MEDS: CHLORHEXIDINE GLUCONATE 15 ML UDC MM SCH ×2 (05:50→17:56)
[2019-06-15] MEDS: MYCOPHENOLATE MOFETIL SUSP 500 MG/2.5 ML UDC GT SCH ×2 (05:50→17:56)
[2019-06-15 07:39] VITALS: BP 107/57
[2019-06-15] MEDS: HYDROGEN PEROXIDE 480 ML BOTTLE TP SCH ×2 (09:00→19:16)
[2019-06-15] MEDS: SERTRALINE HCL 25 MG TABLET GT SCH (09:17)
[2019-06-15] MEDS: BACLOFEN (10 MG) 10 MG TABLET GT SCH ×3 (09:17→16:48)
[2019-06-15] MEDS: LEVETIRACETAM SOL (5 ML) 100 MG/ML UDC GT SCH ×2 (09:17→21:29)
[2019-06-15] MEDS: SENNOSIDES 8.6 MG TABLET GT SCH (09:17)
[2019-06-15] MEDS: FOLIC ACID 1 MG TABLET GT SCH ×2 (09:17→16:47)
[2019-06-15] MEDS: HEPARIN SODIUM, PORCINE 5000 UNITS/1 ML VIAL SQ SCH ×2 (09:17→21:29)
[2019-06-15] MEDS: Z GUARD REMEDY 4 OZ OINT TP SCH ×2 (09:17→21:29)
--- NOTE | 2019-06-15 13:00 | NUR ---
Seen and examined by Dr. Gil NNO given. Addendum: 06/15/19 at 1902 by SHOSHANA HERRMANN RN wrong entry: Seen and examined by Sugar Spangler NP NNO given.
[2019-06-15] MEDS: JEVITY 1.2 CAL 1,000 ML BOTTLE GT PRN (16:48)
[2019-06-15 20:07] VITALS: BP 122/65
[2019-06-15] MEDS: POLYETHYLENE GLYCOL 3350 17 GM POWD.PACK GT SCH (21:29)
[2019-06-16] MEDS: POLYVINYL ALCOHOL 15 ML BOTTLE EACHEYE SCH ×3 (00:09→12:23)
[2019-06-16] MEDS: ALBUTEROL FS 2.5 MG/3 ML VIAL.NEB NEB SCH ×4 (01:55→19:30)
[2019-06-16] MEDS: MYCOPHENOLATE MOFETIL SUSP 500 MG/2.5 ML UDC GT SCH (05:29)
[2019-06-16] MEDS: CHLORHEXIDINE GLUCONATE 15 ML UDC MM SCH (05:29)
--- NOTE | 2019-06-16 05:32 | NUR ---
PATIENT RECEIVED ON 28% AEROSOL T-TUBE, TOLERATING WITH NO DISTRESS/SOB NOTED. SUCTIONED WITH LAVAGE FOR MINIMAL, THINK, YELLOW-CREAM SECRETIONS. GIVEN IN-LINE TREATMENTS WITH NO ADVERSE REACTIONS. AMBU BAG AT BEDSIDE. Addendum: 06/16/19 at 0534 by JANAY CANCINO RT Amended: Links added.
[2019-06-16] MEDS: JEVITY 1.2 CAL 1,000 ML BOTTLE GT PRN (05:58)
[2019-06-16 07:32] VITALS: BP 149/83
[2019-06-16] MEDS: SENNOSIDES 8.6 MG TABLET GT SCH (08:35)
[2019-06-16] MEDS: SERTRALINE HCL 25 MG TABLET GT SCH (08:35)
[2019-06-16] MEDS: LEVETIRACETAM SOL (5 ML) 100 MG/ML UDC GT SCH ×2 (08:35→20:58)
[2019-06-16] MEDS: FOLIC ACID 1 MG TABLET GT SCH ×2 (08:35→16:46)
[2019-06-16] MEDS: BACLOFEN (10 MG) 10 MG TABLET GT SCH ×3 (08:35→16:46)
[2019-06-16] MEDS: HEPARIN SODIUM, PORCINE 5000 UNITS/1 ML VIAL SQ SCH ×2 (08:36→21:23)
[2019-06-16] MEDS: HYDROGEN PEROXIDE 480 ML BOTTLE TP SCH ×2 (09:00→20:39)
[2019-06-16] MEDS: Z GUARD REMEDY 4 OZ OINT TP SCH ×2 (09:00→20:58)
[2019-06-16 19:52] VITALS: BP 128/61
[2019-06-16] MEDS: POLYETHYLENE GLYCOL 3350 17 GM POWD.PACK GT SCH (21:01)
[2019-06-17] MEDS: POLYVINYL ALCOHOL 15 ML BOTTLE EACHEYE SCH ×5 (00:16→23:59)
[2019-06-17] MEDS: ALBUTEROL FS 2.5 MG/3 ML VIAL.NEB NEB SCH ×4 (01:45→20:04)
[2019-06-17] MEDS: JEVITY 1.2 CAL 1,000 ML BOTTLE GT PRN ×2 (02:06→21:20)
[2019-06-17] MEDS: CHLORHEXIDINE GLUCONATE 15 ML UDC MM SCH ×2 (05:32→17:01)
[2019-06-17] MEDS: MYCOPHENOLATE MOFETIL SUSP 500 MG/2.5 ML UDC GT SCH ×2 (05:32→17:01)
[2019-06-17] MEDS: FOLIC ACID 1 MG TABLET GT SCH ×2 (08:21→16:59)
[2019-06-17] MEDS: BACLOFEN (10 MG) 10 MG TABLET GT SCH ×3 (08:22→16:59)
[2019-06-17] MEDS: LEVETIRACETAM SOL (5 ML) 100 MG/ML UDC GT SCH ×2 (08:22→21:18)
[2019-06-17] MEDS: SERTRALINE HCL 25 MG TABLET GT SCH (08:25)
[2019-06-17] MEDS: HYDROGEN PEROXIDE 480 ML BOTTLE TP SCH ×2 (08:26→21:24)
[2019-06-17] MEDS: Z GUARD REMEDY 4 OZ OINT TP SCH ×2 (08:26→21:19)
[2019-06-17] MEDS: HEPARIN SODIUM, PORCINE 5000 UNITS/1 ML VIAL SQ SCH ×2 (08:29→21:19)
[2019-06-17] MEDS: SENNOSIDES 8.6 MG TABLET GT SCH (08:31)
[2019-06-17 09:49] VITALS: BP 116/54
[2019-06-17 20:13] VITALS: BP 111/64
[2019-06-17] MEDS: POLYETHYLENE GLYCOL 3350 17 GM POWD.PACK GT SCH (21:19)
[2019-06-18] MEDS: ALBUTEROL FS 2.5 MG/3 ML VIAL.NEB NEB SCH ×4 (01:36→20:03)
[2019-06-18] MEDS: CHLORHEXIDINE GLUCONATE 15 ML UDC MM SCH ×2 (05:28→17:50)
[2019-06-18] MEDS: MYCOPHENOLATE MOFETIL SUSP 500 MG/2.5 ML UDC GT SCH ×2 (05:28→17:50)
[2019-06-18] MEDS: POLYVINYL ALCOHOL 15 ML BOTTLE EACHEYE SCH ×4 (05:28→23:44)
--- NOTE | 2019-06-18 05:35 | NUR ---
RT Patient was received on 28% cool aerosol .Breathing treatment was given. Airway patent and secured. Patient stable throughout the shift.Will continue to monitor Addendum: 06/18/19 at 0535 by ELIAZAR GOMES RT Amended: Links added.
--- NOTE | 2019-06-18 08:42 | NUR ---
RT NOTE: REC'D TRACH PT ON COOL AEROSOL PER MD ORDER. LUIS F BAG @ BEDSIDE. SX DONE PRN. TRACH PATENT AND SECURED. TRACH CARE DONE. NO RESP DISTRESS NOTED AT THIS TIME. WILL CONTINUE TO MONITOR. Addendum: 06/18/19 at 0843 by KIMI JAIMES RT Amended: Links added.
[2019-06-18] MEDS: HYDROGEN PEROXIDE 480 ML BOTTLE TP SCH ×2 (09:00→21:07)
[2019-06-18] MEDS: SERTRALINE HCL 25 MG TABLET GT SCH (09:52)
[2019-06-18] MEDS: SENNOSIDES 8.6 MG TABLET GT SCH (09:52)
[2019-06-18] MEDS: FOLIC ACID 1 MG TABLET GT SCH ×2 (09:52→17:50)
[2019-06-18] MEDS: BACLOFEN (10 MG) 10 MG TABLET GT SCH ×3 (09:52→17:50)
[2019-06-18] MEDS: ZINC OXIDE 30 GM TUBE TP SCH ×2 (09:52→21:28)
[2019-06-18] MEDS: LEVETIRACETAM SOL (5 ML) 100 MG/ML UDC GT SCH ×2 (09:52→21:27)
[2019-06-18] MEDS: HEPARIN SODIUM, PORCINE 5000 UNITS/1 ML VIAL SQ SCH ×2 (09:52→21:28)
[2019-06-18] MEDS: Z GUARD REMEDY 4 OZ OINT TP SCH ×2 (09:53→21:28)
[2019-06-18 12:25] VITALS: BP 113/71
[2019-06-18] MEDS: JEVITY 1.2 CAL 1,000 ML BOTTLE GT PRN (17:50)
[2019-06-18 20:16] VITALS: BP 122/62
[2019-06-18] MEDS: POLYETHYLENE GLYCOL 3350 17 GM POWD.PACK GT SCH (21:28)
[2019-06-19] MEDS: ALBUTEROL FS 2.5 MG/3 ML VIAL.NEB NEB SCH ×4 (01:44→19:54)
[2019-06-19] MEDS: JEVITY 1.2 CAL 1,000 ML BOTTLE GT PRN (05:43)
[2019-06-19] MEDS: CHLORHEXIDINE GLUCONATE 15 ML UDC MM SCH ×2 (05:43→17:36)
[2019-06-19] MEDS: POLYVINYL ALCOHOL 15 ML BOTTLE EACHEYE SCH ×4 (05:43→23:47)
[2019-06-19] MEDS: MYCOPHENOLATE MOFETIL SUSP 500 MG/2.5 ML UDC GT SCH ×2 (05:43→17:36)
[2019-06-19 07:45] VITALS: BP 126/65
[2019-06-19] MEDS: HYDROGEN PEROXIDE 480 ML BOTTLE TP SCH ×2 (09:00→21:43)
[2019-06-19] MEDS: SENNOSIDES 8.6 MG TABLET GT SCH (09:56)
[2019-06-19] MEDS: FOLIC ACID 1 MG TABLET GT SCH ×2 (09:56→17:36)
[2019-06-19] MEDS: LEVETIRACETAM SOL (5 ML) 100 MG/ML UDC GT SCH ×2 (09:56→21:15)
[2019-06-19] MEDS: BACLOFEN (10 MG) 10 MG TABLET GT SCH ×3 (09:56→17:36)
[2019-06-19] MEDS: SERTRALINE HCL 25 MG TABLET GT SCH (09:56)
[2019-06-19] MEDS: HEPARIN SODIUM, PORCINE 5000 UNITS/1 ML VIAL SQ SCH ×2 (09:57→21:15)
[2019-06-19] MEDS: Z GUARD REMEDY 4 OZ OINT TP SCH ×2 (09:57→21:15)
[2019-06-19] MEDS: ZINC OXIDE 30 GM TUBE TP SCH ×2 (09:57→21:15)
[2019-06-19 20:35] VITALS: BP 117/79
[2019-06-19] MEDS: POLYETHYLENE GLYCOL 3350 17 GM POWD.PACK GT SCH (21:15)
[2019-06-20] MEDS: ALBUTEROL FS 2.5 MG/3 ML VIAL.NEB NEB SCH ×4 (02:14→19:25)
[2019-06-20] MEDS: MYCOPHENOLATE MOFETIL SUSP 500 MG/2.5 ML UDC GT SCH ×2 (05:34→17:44)
[2019-06-20] MEDS: POLYVINYL ALCOHOL 15 ML BOTTLE EACHEYE SCH ×4 (05:34→23:34)
[2019-06-20] MEDS: CHLORHEXIDINE GLUCONATE 15 ML UDC MM SCH ×2 (05:34→17:44)
[2019-06-20 07:54] VITALS: BP 120/78
[2019-06-20] MEDS: HYDROGEN PEROXIDE 480 ML BOTTLE TP SCH ×2 (09:00→19:25)
[2019-06-20] MEDS: FOLIC ACID 1 MG TABLET GT SCH ×2 (09:46→17:44)
[2019-06-20] MEDS: HEPARIN SODIUM, PORCINE 5000 UNITS/1 ML VIAL SQ SCH ×2 (09:46→21:18)
[2019-06-20] MEDS: SERTRALINE HCL 25 MG TABLET GT SCH (09:46)
[2019-06-20] MEDS: BACLOFEN (10 MG) 10 MG TABLET GT SCH ×3 (09:46→17:44)
[2019-06-20] MEDS: SENNOSIDES 8.6 MG TABLET GT SCH (09:46)
[2019-06-20] MEDS: LEVETIRACETAM SOL (5 ML) 100 MG/ML UDC GT SCH ×2 (09:46→21:17)
[2019-06-20] MEDS: ZINC OXIDE 30 GM TUBE TP SCH ×2 (09:47→21:18)
[2019-06-20] MEDS: Z GUARD REMEDY 4 OZ OINT TP SCH ×2 (09:47→21:18)
[2019-06-20] MEDS: JEVITY 1.2 CAL 1,000 ML BOTTLE GT PRN (17:47)
[2019-06-20 20:09] VITALS: BP 107/65
[2019-06-20] MEDS: POLYETHYLENE GLYCOL 3350 17 GM POWD.PACK GT SCH (21:18)
[2019-06-20] MEDS: Z GUARD REMEDY 2 OZ OINT TP SCH (21:18)
[2019-06-21] MEDS: ALBUTEROL FS 2.5 MG/3 ML VIAL.NEB NEB SCH ×4 (01:33→20:10)
[2019-06-21] MEDS: POLYVINYL ALCOHOL 15 ML BOTTLE EACHEYE SCH ×4 (05:42→23:44)
[2019-06-21] MEDS: MYCOPHENOLATE MOFETIL SUSP 500 MG/2.5 ML UDC GT SCH ×2 (05:42→17:32)
[2019-06-21] MEDS: CHLORHEXIDINE GLUCONATE 15 ML UDC MM SCH ×2 (05:43→17:32)
[2019-06-21 07:31] VITALS: BP 126/72
[2019-06-21] MEDS: JEVITY 1.2 CAL 1,000 ML BOTTLE GT PRN (08:29)
[2019-06-21] MEDS: SENNOSIDES 8.6 MG TABLET GT SCH (08:29)
[2019-06-21] MEDS: SERTRALINE HCL 25 MG TABLET GT SCH (08:29)
[2019-06-21] MEDS: FOLIC ACID 1 MG TABLET GT SCH ×2 (08:29→17:32)
[2019-06-21] MEDS: BACLOFEN (10 MG) 10 MG TABLET GT SCH ×3 (08:29→17:32)
[2019-06-21] MEDS: LEVETIRACETAM SOL (5 ML) 100 MG/ML UDC GT SCH ×2 (08:29→21:14)
[2019-06-21] MEDS: HEPARIN SODIUM, PORCINE 5000 UNITS/1 ML VIAL SQ SCH ×2 (08:30→21:14)
[2019-06-21] MEDS: HYDROGEN PEROXIDE 480 ML BOTTLE TP SCH ×2 (09:22→20:10)
--- NOTE | 2019-06-21 09:30 | NUR ---
RT NOTE: REC'D TRACH PT ON COOL AEROSOL PER MD ORDER. LUIS F BAG @ BEDSIDE. SX DONE PRN. TRACH PATENT AND SECURED. TRACH CARE DONE. NO RESP DISTRESS NOTED AT THIS TIME. WILL CONTINUE TO MONITOR. Addendum: 06/21/19 at 0930 by KIMI JAIMES RT Amended: Links added.
[2019-06-21] MEDS: Z GUARD REMEDY 2 OZ OINT TP SCH ×2 (09:41→21:14)
[2019-06-21] MEDS: ZINC OXIDE 30 GM TUBE TP SCH ×2 (09:41→21:15)
[2019-06-21] MEDS: Z GUARD REMEDY 4 OZ OINT TP SCH ×2 (09:41→21:14)
--- NOTE | 2019-06-21 11:20 | NUR ---
WOUND CARE CONSULT: PT SEEN FOR SOME INCONTINENCE ASSOCIATED SKIN IRRITATION TO GLUTEAL CREASE. CONCUR WITH CURRENT TREATMENT WITH Z GUARD AND KEEPING SKIN CLEAN AND DRY. DISCUSSED WITH NURSING STAFF. WILL SEE PRN.
--- NOTE | 2019-06-21 20:20 | NUR ---
RT NOTE: RECEIVED TRACH PT ON COOL AEROSOL. AMBU BAG @ BEDSIDE. Q6 BREATHING TX GIVEN PER MD ORDERS WITH NO ADVERSE REACTION NOTED. SX DONE PRN. TRACH PATENT AND SECURED. TRACH CARE DONE. NO RESP DISTRESS NOTED AT THIS TIME. WILL CONTINUE TO MONITOR PT Addendum: 06/22/19 at 0313 by DOV GREENBERG RT Amended: Links added.
[2019-06-21 20:33] VITALS: BP 109/72
[2019-06-21] MEDS: POLYETHYLENE GLYCOL 3350 17 GM POWD.PACK GT SCH (21:15)
[2019-06-22] MEDS: ALBUTEROL FS 2.5 MG/3 ML VIAL.NEB NEB SCH ×4 (02:11→20:09)
[2019-06-22] MEDS: MYCOPHENOLATE MOFETIL SUSP 500 MG/2.5 ML UDC GT SCH ×2 (06:01→17:01)
[2019-06-22] MEDS: POLYVINYL ALCOHOL 15 ML BOTTLE EACHEYE SCH ×3 (06:01→17:01)
[2019-06-22] MEDS: CHLORHEXIDINE GLUCONATE 15 ML UDC MM SCH ×2 (06:01→17:01)
[2019-06-22 08:00] VITALS: BP 150/78
[2019-06-22] MEDS: HYDROGEN PEROXIDE 480 ML BOTTLE TP SCH ×2 (08:20→21:00)
[2019-06-22] MEDS: SENNOSIDES 8.6 MG TABLET GT SCH (08:56)
[2019-06-22] MEDS: LEVETIRACETAM SOL (5 ML) 100 MG/ML UDC GT SCH ×2 (08:56→21:06)
[2019-06-22] MEDS: FOLIC ACID 1 MG TABLET GT SCH ×2 (08:56→16:34)
[2019-06-22] MEDS: BACLOFEN (10 MG) 10 MG TABLET GT SCH ×3 (08:56→16:34)
[2019-06-22] MEDS: Z GUARD REMEDY 4 OZ OINT TP SCH ×2 (08:57→21:06)
[2019-06-22] MEDS: SERTRALINE HCL 25 MG TABLET GT SCH (08:57)
[2019-06-22] MEDS: Z GUARD REMEDY 2 OZ OINT TP SCH ×2 (08:57→21:06)
[2019-06-22] MEDS: HEPARIN SODIUM, PORCINE 5000 UNITS/1 ML VIAL SQ SCH ×2 (08:57→21:06)
[2019-06-22] MEDS: ZINC OXIDE 30 GM TUBE TP SCH ×2 (08:58→21:06)
--- NOTE | 2019-06-22 12:24 | NUR ---
Family was not able to attend June Family Support Group today held from 11 am-12 noon. Family will be invited and encouraged to attend next month's Family Support Group.
--- NOTE | 2019-06-22 14:26 | NUR ---
SW left voicemail for pt. Daughter, Lisa Tellez [phone] inviting family to attend or participate via phone conference in the IDT Plan of Care Conference being held this Monday, June 24, 2019 from 12:30pm-1:30pm in the activities room.
[2019-06-22] MEDS: JEVITY 1.2 CAL 1,000 ML BOTTLE GT PRN (16:29)
[2019-06-22 20:08] VITALS: BP 131/71
[2019-06-22] MEDS: POLYETHYLENE GLYCOL 3350 17 GM POWD.PACK GT SCH (21:06)
[2019-06-23] MEDS: POLYVINYL ALCOHOL 15 ML BOTTLE EACHEYE SCH ×4 (00:16→17:19)
[2019-06-23] MEDS: ALBUTEROL FS 2.5 MG/3 ML VIAL.NEB NEB SCH ×4 (01:57→20:13)
[2019-06-23] MEDS: CHLORHEXIDINE GLUCONATE 15 ML UDC MM SCH ×2 (06:07→17:19)
[2019-06-23] MEDS: MYCOPHENOLATE MOFETIL SUSP 500 MG/2.5 ML UDC GT SCH ×2 (06:07→17:19)
[2019-06-23] MEDS: JEVITY 1.2 CAL 1,000 ML BOTTLE GT PRN (07:31)
[2019-06-23 08:07] VITALS: BP 140/79
--- NOTE | 2019-06-23 08:21 | NUR ---
RT NOTE PT REC'D ON COOL AEROSOL PER MD ORDERS. PT FOUND WITH TRACH TUBE OUT OF PLACE. TRACH TUBE REINSERTED WITH MINIMAL REDNESS AND SMALL AMOUNT OF BLOOD. TRACH TUBE PATENT AND SECURE. NO RESPIRATORY DISTRESS NOTED AT THIS TIME. HHN TX GIVEN WITH NO ADVERSE REACTION. PATIENT STABLE WILL CONTINUE TO MONITOR. Addendum: 06/23/19 at 0825 by KIMI JAIMES RT Amended: Links added.
[2019-06-23] MEDS: SENNOSIDES 8.6 MG TABLET GT SCH (09:03)
[2019-06-23] MEDS: BACLOFEN (10 MG) 10 MG TABLET GT SCH ×3 (09:03→17:19)
[2019-06-23] MEDS: LEVETIRACETAM SOL (5 ML) 100 MG/ML UDC GT SCH ×2 (09:03→21:00)
[2019-06-23] MEDS: FOLIC ACID 1 MG TABLET GT SCH ×2 (09:03→17:19)
[2019-06-23] MEDS: Z GUARD REMEDY 2 OZ OINT TP SCH ×2 (09:04→21:00)
[2019-06-23] MEDS: Z GUARD REMEDY 4 OZ OINT TP SCH ×2 (09:04→21:00)
[2019-06-23] MEDS: SERTRALINE HCL 25 MG TABLET GT SCH (09:04)
[2019-06-23] MEDS: HEPARIN SODIUM, PORCINE 5000 UNITS/1 ML VIAL SQ SCH ×2 (09:04→21:00)
[2019-06-23] MEDS: ZINC OXIDE 30 GM TUBE TP SCH ×2 (09:05→21:00)
[2019-06-23] MEDS: HYDROGEN PEROXIDE 480 ML BOTTLE TP SCH ×2 (09:06→21:22)
[2019-06-23 20:03] VITALS: BP 106/66
[2019-06-23] MEDS: POLYETHYLENE GLYCOL 3350 17 GM POWD.PACK GT SCH (22:29)
[2019-06-24] MEDS: POLYVINYL ALCOHOL 15 ML BOTTLE EACHEYE SCH ×5 (00:06→23:57)
[2019-06-24] MEDS: ALBUTEROL FS 2.5 MG/3 ML VIAL.NEB NEB SCH ×4 (01:47→20:12)
[2019-06-24] MEDS: JEVITY 1.2 CAL 1,000 ML BOTTLE GT PRN ×2 (02:10→19:05)
[2019-06-24] MEDS: CHLORHEXIDINE GLUCONATE 15 ML UDC MM SCH ×2 (05:27→17:44)
[2019-06-24] MEDS: MYCOPHENOLATE MOFETIL SUSP 500 MG/2.5 ML UDC GT SCH ×2 (05:27→17:44)
[2019-06-24 08:03] VITALS: BP 124/88
--- NOTE | 2019-06-24 08:18 | NUR ---
Seen and examined by Dr. Jeff dsouza.
[2019-06-24] MEDS: HYDROGEN PEROXIDE 480 ML BOTTLE TP SCH ×2 (08:38→21:00)
[2019-06-24] MEDS: SERTRALINE HCL 25 MG TABLET GT SCH (09:03)
[2019-06-24] MEDS: FOLIC ACID 1 MG TABLET GT SCH ×2 (09:03→16:33)
[2019-06-24] MEDS: SENNOSIDES 8.6 MG TABLET GT SCH (09:03)
[2019-06-24] MEDS: BACLOFEN (10 MG) 10 MG TABLET GT SCH ×3 (09:03→16:33)
[2019-06-24] MEDS: LEVETIRACETAM SOL (5 ML) 100 MG/ML UDC GT SCH ×2 (09:03→21:18)
[2019-06-24] MEDS: Z GUARD REMEDY 4 OZ OINT TP SCH ×2 (09:04→21:19)
[2019-06-24] MEDS: ZINC OXIDE 30 GM TUBE TP SCH ×2 (09:04→21:19)
[2019-06-24] MEDS: Z GUARD REMEDY 2 OZ OINT TP SCH ×2 (09:04→21:19)
[2019-06-24] MEDS: HEPARIN SODIUM, PORCINE 5000 UNITS/1 ML VIAL SQ SCH ×2 (09:04→21:18)
--- NOTE | 2019-06-24 14:40 | NUR ---
Plan of Care Conference took place today. The patients responsible constitution party/ daughter, Lisa Tellez [phone] was not able to participate via phone conference. Charge nurse discussed GT site redness-irritation TX Cleanse w/soap & water, apply Zinc Oxide q shift x 14 days; Gluteal crease MASD Tx apply Z-guard q shift x [address] Lubin and Interdisciplinary team discussed the plan of care in detail. Current orders as well as treatments and medications were reviewed. See other disciplines IDT notes for further details.
[2019-06-24 20:30] VITALS: BP 126/51
[2019-06-24] MEDS: POLYETHYLENE GLYCOL 3350 17 GM POWD.PACK GT SCH (21:19)
[2019-06-25] MEDS: ALBUTEROL FS 2.5 MG/3 ML VIAL.NEB NEB SCH ×4 (00:37→20:10)
[2019-06-25] MEDS: CHLORHEXIDINE GLUCONATE 15 ML UDC MM SCH ×2 (05:18→17:25)
[2019-06-25] MEDS: MYCOPHENOLATE MOFETIL SUSP 500 MG/2.5 ML UDC GT SCH ×2 (05:18→17:25)
[2019-06-25] MEDS: POLYVINYL ALCOHOL 15 ML BOTTLE EACHEYE SCH ×4 (05:18→23:13)
[2019-06-25 08:06] VITALS: BP 131/94
[2019-06-25] MEDS: HYDROGEN PEROXIDE 480 ML BOTTLE TP SCH ×2 (08:08→20:48)
[2019-06-25] MEDS: FOLIC ACID 1 MG TABLET GT SCH ×2 (08:31→17:25)
[2019-06-25] MEDS: SENNOSIDES 8.6 MG TABLET GT SCH (08:31)
[2019-06-25] MEDS: BACLOFEN (10 MG) 10 MG TABLET GT SCH ×3 (08:31→17:25)
[2019-06-25] MEDS: SERTRALINE HCL 25 MG TABLET GT SCH (08:31)
[2019-06-25] MEDS: LEVETIRACETAM SOL (5 ML) 100 MG/ML UDC GT SCH ×2 (08:31→20:47)
[2019-06-25] MEDS: HEPARIN SODIUM, PORCINE 5000 UNITS/1 ML VIAL SQ SCH ×2 (08:33→20:48)
[2019-06-25] MEDS: Z GUARD REMEDY 4 OZ OINT TP SCH ×2 (08:33→20:48)
[2019-06-25] MEDS: ZINC OXIDE 30 GM TUBE TP SCH ×2 (08:33→20:48)
[2019-06-25] MEDS: Z GUARD REMEDY 2 OZ OINT TP SCH ×2 (08:33→20:48)
--- NOTE | 2019-06-25 09:24 | NUR ---
RT NOTE: REC'D TRACH PT ON COOL AEROSOL PER MD ORDER. LUIS F BAG @ BEDSIDE. SX DONE PRN. TRACH PATENT AND SECURED. TRACH CARE DONE. NO RESP DISTRESS NOTED AT THIS TIME. WILL CONTINUE TO MONITOR. Addendum: 06/25/19 at 0924 by KIMI JAIMES RT Amended: Links added.
[2019-06-25] MEDS: JEVITY 1.2 CAL 1,000 ML BOTTLE GT PRN (14:31)
[2019-06-25 20:02] VITALS: BP 124/76
[2019-06-25] MEDS: POLYETHYLENE GLYCOL 3350 17 GM POWD.PACK GT SCH (21:18)
[2019-06-26] MEDS: ALBUTEROL FS 2.5 MG/3 ML VIAL.NEB NEB SCH ×4 (01:36→20:06)
[2019-06-26] MEDS: CHLORHEXIDINE GLUCONATE 15 ML UDC MM SCH ×2 (05:05→18:19)
[2019-06-26] MEDS: JEVITY 1.2 CAL 1,000 ML BOTTLE GT PRN ×2 (05:05→18:25)
[2019-06-26] MEDS: MYCOPHENOLATE MOFETIL SUSP 500 MG/2.5 ML UDC GT SCH ×2 (05:05→18:19)
[2019-06-26] MEDS: POLYVINYL ALCOHOL 15 ML BOTTLE EACHEYE SCH ×3 (05:05→18:19)
[2019-06-26 07:42] VITALS: BP 125/73
[2019-06-26] MEDS: FOLIC ACID 1 MG TABLET GT SCH ×2 (08:48→16:20)
[2019-06-26] MEDS: SENNOSIDES 8.6 MG TABLET GT SCH (08:48)
[2019-06-26] MEDS: BACLOFEN (10 MG) 10 MG TABLET GT SCH ×3 (08:48→16:20)
[2019-06-26] MEDS: SERTRALINE HCL 25 MG TABLET GT SCH (08:48)
[2019-06-26] MEDS: LEVETIRACETAM SOL (5 ML) 100 MG/ML UDC GT SCH ×2 (08:48→20:53)
[2019-06-26] MEDS: ZINC OXIDE 30 GM TUBE TP SCH ×2 (08:49→20:53)
[2019-06-26] MEDS: HEPARIN SODIUM, PORCINE 5000 UNITS/1 ML VIAL SQ SCH ×2 (08:49→20:53)
[2019-06-26] MEDS: Z GUARD REMEDY 4 OZ OINT TP SCH ×2 (08:49→20:53)
[2019-06-26] MEDS: Z GUARD REMEDY 2 OZ OINT TP SCH ×2 (08:49→20:53)
[2019-06-26] MEDS: HYDROGEN PEROXIDE 480 ML BOTTLE TP SCH ×2 (09:00→21:16)
[2019-06-26 20:47] VITALS: BP 126/74
[2019-06-26] MEDS: POLYETHYLENE GLYCOL 3350 17 GM POWD.PACK GT SCH (21:43)
[2019-06-27] MEDS: POLYVINYL ALCOHOL 15 ML BOTTLE EACHEYE SCH ×5 (00:06→23:31)
[2019-06-27] MEDS: ALBUTEROL FS 2.5 MG/3 ML VIAL.NEB NEB SCH ×4 (01:43→20:06)
[2019-06-27] MEDS: MYCOPHENOLATE MOFETIL SUSP 500 MG/2.5 ML UDC GT SCH ×2 (05:06→18:51)
[2019-06-27] MEDS: CHLORHEXIDINE GLUCONATE 15 ML UDC MM SCH ×2 (05:06→18:51)
[2019-06-27 08:03] VITALS: BP 111/61
[2019-06-27] MEDS: HYDROGEN PEROXIDE 480 ML BOTTLE TP SCH ×2 (08:06→20:06)
[2019-06-27] MEDS: FOLIC ACID 1 MG TABLET GT SCH ×2 (09:00→16:16)
[2019-06-27] MEDS: SERTRALINE HCL 25 MG TABLET GT SCH (09:00)
[2019-06-27] MEDS: HEPARIN SODIUM, PORCINE 5000 UNITS/1 ML VIAL SQ SCH ×2 (09:00→20:45)
[2019-06-27] MEDS: LEVETIRACETAM SOL (5 ML) 100 MG/ML UDC GT SCH ×2 (09:00→20:45)
[2019-06-27] MEDS: ZINC OXIDE 30 GM TUBE TP SCH ×2 (09:00→20:45)
[2019-06-27] MEDS: SENNOSIDES 8.6 MG TABLET GT SCH (09:00)
[2019-06-27] MEDS: Z GUARD REMEDY 2 OZ OINT TP SCH ×2 (09:00→20:45)
[2019-06-27] MEDS: Z GUARD REMEDY 4 OZ OINT TP SCH ×2 (09:00→20:45)
[2019-06-27] MEDS: BACLOFEN (10 MG) 10 MG TABLET GT SCH ×3 (09:00→16:16)
[2019-06-27] MEDS: JEVITY 1.2 CAL 1,000 ML BOTTLE GT PRN (16:16)
[2019-06-27 21:27] VITALS: BP 126/76
[2019-06-27] MEDS: POLYETHYLENE GLYCOL 3350 17 GM POWD.PACK GT SCH (22:11)
[2019-06-28] MEDS: ALBUTEROL FS 2.5 MG/3 ML VIAL.NEB NEB SCH ×4 (01:56→20:02)
[2019-06-28] MEDS: MYCOPHENOLATE MOFETIL SUSP 500 MG/2.5 ML UDC GT SCH ×2 (05:15→17:39)
[2019-06-28] MEDS: CHLORHEXIDINE GLUCONATE 15 ML UDC MM SCH ×2 (05:15→17:39)
[2019-06-28] MEDS: POLYVINYL ALCOHOL 15 ML BOTTLE EACHEYE SCH ×4 (05:15→23:51)
[2019-06-28] MEDS: FOLIC ACID 1 MG TABLET GT SCH ×2 (08:08→17:39)
[2019-06-28] MEDS: SERTRALINE HCL 25 MG TABLET GT SCH (08:09)
[2019-06-28] MEDS: BACLOFEN (10 MG) 10 MG TABLET GT SCH ×3 (08:10→17:39)
[2019-06-28] MEDS: HEPARIN SODIUM, PORCINE 5000 UNITS/1 ML VIAL SQ SCH ×2 (08:10→21:12)
[2019-06-28] MEDS: LEVETIRACETAM SOL (5 ML) 100 MG/ML UDC GT SCH ×2 (08:10→21:11)
[2019-06-28] MEDS: SENNOSIDES 8.6 MG TABLET GT SCH (08:10)
[2019-06-28] MEDS: ZINC OXIDE 30 GM TUBE TP SCH ×2 (09:00→21:13)
[2019-06-28] MEDS: Z GUARD REMEDY 4 OZ OINT TP SCH ×2 (09:00→21:13)
[2019-06-28] MEDS: Z GUARD REMEDY 2 OZ OINT TP SCH ×2 (09:00→21:13)
[2019-06-28] MEDS: HYDROGEN PEROXIDE 480 ML BOTTLE TP SCH ×2 (09:27→21:00)
--- NOTE | 2019-06-28 10:31 | NUR ---
RT NOTE: REC'D TRACH PT ON COOL AEROSOL PER MD ORDER. LUIS F BAG @ BEDSIDE. SX DONE PRN. TRACH PATENT AND SECURED. TRACH CARE DONE. NO RESP DISTRESS NOTED AT THIS TIME. WILL CONTINUE TO MONITOR. Addendum: 06/28/19 at 1031 by KIMI JAIMES RT Amended: Links added.
[2019-06-28 11:52] VITALS: BP 99/71
[2019-06-28] MEDS: JEVITY 1.2 CAL 1,000 ML BOTTLE GT PRN (13:00)
[2019-06-28 20:13] VITALS: BP 125/70
[2019-06-28] MEDS: POLYETHYLENE GLYCOL 3350 17 GM POWD.PACK GT SCH (21:59)
[2019-06-29] MEDS: ALBUTEROL FS 2.5 MG/3 ML VIAL.NEB NEB SCH ×4 (02:13→20:02)
[2019-06-29] MEDS: MYCOPHENOLATE MOFETIL SUSP 500 MG/2.5 ML UDC GT SCH ×2 (05:34→17:28)
[2019-06-29] MEDS: JEVITY 1.2 CAL 1,000 ML BOTTLE GT PRN (05:35)
[2019-06-29] MEDS: CHLORHEXIDINE GLUCONATE 15 ML UDC MM SCH ×2 (05:35→17:28)
[2019-06-29] MEDS: POLYVINYL ALCOHOL 15 ML BOTTLE EACHEYE SCH ×4 (05:35→23:26)
[2019-06-29] MEDS: HYDROGEN PEROXIDE 480 ML BOTTLE TP SCH ×2 (09:00→20:02)
[2019-06-29 09:22] VITALS: BP 120/57
[2019-06-29] MEDS: FOLIC ACID 1 MG TABLET GT SCH ×2 (09:24→16:47)
[2019-06-29] MEDS: HEPARIN SODIUM, PORCINE 5000 UNITS/1 ML VIAL SQ SCH ×2 (09:24→20:22)
[2019-06-29] MEDS: Z GUARD REMEDY 2 OZ OINT TP SCH ×2 (09:24→20:22)
[2019-06-29] MEDS: LEVETIRACETAM SOL (5 ML) 100 MG/ML UDC GT SCH ×2 (09:24→20:22)
[2019-06-29] MEDS: BACLOFEN (10 MG) 10 MG TABLET GT SCH ×3 (09:24→16:47)
[2019-06-29] MEDS: SENNOSIDES 8.6 MG TABLET GT SCH (09:24)
[2019-06-29] MEDS: SERTRALINE HCL 25 MG TABLET GT SCH (09:24)
[2019-06-29] MEDS: Z GUARD REMEDY 4 OZ OINT TP SCH ×2 (09:25→20:22)
[2019-06-29] MEDS: ZINC OXIDE 30 GM TUBE TP SCH ×2 (09:25→20:22)
--- NOTE | 2019-06-29 15:30 | NUR ---
Seen and examined by Sugar Spangler no new order given.
[2019-06-29 20:08] VITALS: BP 111/63
--- NOTE | 2019-06-29 20:12 | NUR ---
RT NOTE: RECEIVED TRACH PT ON COOL AEROSOL. AMBU BAG @ BEDSIDE. Q6 BREATHING TX GIVEN PER MD ORDERS WITH NO ADVERSE REACTION NOTED. SX DONE PRN. TRACH PATENT AND SECURED. TRACH CARE DONE. NO RESP DISTRESS NOTED AT THIS TIME. WILL CONTINUE TO MONITOR PT Addendum: 06/30/19 at 0220 by DOV GRENEBERG RT Amended: Links added.
[2019-06-29] MEDS: POLYETHYLENE GLYCOL 3350 17 GM POWD.PACK GT SCH (22:23)
[2019-06-30] MEDS: JEVITY 1.2 CAL 1,000 ML BOTTLE GT PRN ×2 (00:51→19:00)
[2019-06-30] MEDS: ALBUTEROL FS 2.5 MG/3 ML VIAL.NEB NEB SCH ×4 (01:45→20:06)
[2019-06-30] MEDS: POLYVINYL ALCOHOL 15 ML BOTTLE EACHEYE SCH ×4 (05:51→23:36)
[2019-06-30] MEDS: MYCOPHENOLATE MOFETIL SUSP 500 MG/2.5 ML UDC GT SCH ×2 (05:51→17:21)
[2019-06-30] MEDS: CHLORHEXIDINE GLUCONATE 15 ML UDC MM SCH ×2 (05:52→17:21)
[2019-06-30 07:38] VITALS: BP 117/72
[2019-06-30] MEDS: HYDROGEN PEROXIDE 480 ML BOTTLE TP SCH ×2 (07:58→20:06)
[2019-06-30] MEDS: Z GUARD REMEDY 4 OZ OINT TP SCH ×2 (08:35→20:13)
[2019-06-30] MEDS: BACLOFEN (10 MG) 10 MG TABLET GT SCH ×3 (08:35→17:21)
[2019-06-30] MEDS: FOLIC ACID 1 MG TABLET GT SCH ×2 (08:35→17:21)
[2019-06-30] MEDS: HEPARIN SODIUM, PORCINE 5000 UNITS/1 ML VIAL SQ SCH ×2 (08:35→20:13)
[2019-06-30] MEDS: SERTRALINE HCL 25 MG TABLET GT SCH (08:35)
[2019-06-30] MEDS: LEVETIRACETAM SOL (5 ML) 100 MG/ML UDC GT SCH ×2 (08:35→20:12)
[2019-06-30] MEDS: Z GUARD REMEDY 2 OZ OINT TP SCH ×2 (08:35→20:13)
[2019-06-30] MEDS: SENNOSIDES 8.6 MG TABLET GT SCH (08:35)
[2019-06-30] MEDS: ZINC OXIDE 30 GM TUBE TP SCH ×2 (08:36→20:13)
--- NOTE | 2019-06-30 17:06 | NUR ---
RT NOTE: RECEIVED TRACH PT ON COOL AEROSOL. NO RESPIRATORY DISTRESS NOTED. TRACH CHECKED SECURE AND PATENT. SXD AND LAVAGE PT Q ROUND AND NEEDED. TXS GIVEN ORDERED WITH NO ADVERSE REACTIONS NOTED. TRACH CARE DONE. SPARE TRACH AND AMBU BAG @ BEDSIDE.
--- NOTE | 2019-06-30 19:30 | NUR ---
Seen by HA Spangler no new orders.
[2019-06-30 20:03] VITALS: BP 116/70
[2019-06-30] MEDS: POLYETHYLENE GLYCOL 3350 17 GM POWD.PACK GT SCH (21:08)
[2019-07-01] MEDS: ALBUTEROL FS 2.5 MG/3 ML VIAL.NEB NEB SCH ×4 (02:16→20:04)
[2019-07-01] MEDS: CHLORHEXIDINE GLUCONATE 15 ML UDC MM SCH ×2 (05:09→17:53)
[2019-07-01] MEDS: POLYVINYL ALCOHOL 15 ML BOTTLE EACHEYE SCH ×4 (05:09→23:42)
[2019-07-01] MEDS: MYCOPHENOLATE MOFETIL SUSP 500 MG/2.5 ML UDC GT SCH ×2 (05:09→17:53)
[2019-07-01 07:54] VITALS: BP 133/70
[2019-07-01] MEDS: HYDROGEN PEROXIDE 480 ML BOTTLE TP SCH ×2 (08:29→21:25)
[2019-07-01] MEDS: SENNOSIDES 8.6 MG TABLET GT SCH (09:11)
[2019-07-01] MEDS: BACLOFEN (10 MG) 10 MG TABLET GT SCH ×3 (09:11→17:53)
[2019-07-01] MEDS: LEVETIRACETAM SOL (5 ML) 100 MG/ML UDC GT SCH ×2 (09:11→21:29)
[2019-07-01] MEDS: FOLIC ACID 1 MG TABLET GT SCH ×2 (09:11→17:53)
[2019-07-01] MEDS: SERTRALINE HCL 25 MG TABLET GT SCH (09:11)
[2019-07-01] MEDS: ZINC OXIDE 30 GM TUBE TP SCH ×2 (09:12→21:29)
[2019-07-01] MEDS: Z GUARD REMEDY 2 OZ OINT TP SCH ×2 (09:12→21:29)
[2019-07-01] MEDS: Z GUARD REMEDY 4 OZ OINT TP SCH ×2 (09:12→21:29)
[2019-07-01] MEDS: HEPARIN SODIUM, PORCINE 5000 UNITS/1 ML VIAL SQ SCH ×2 (09:12→21:29)
--- NOTE | 2019-07-01 12:43 | NUR ---
Family Invitation to Holiday Lunch-In: Animal Care Attendant contacted the patients responsible alliance party/Daughter, Lisa Tellez [phone] to invite them to attend the Family Holiday Lunch-In taking place 07/07/19 from 11:30pm-1:00pm. SW encouraged the family to visit the patient for the holidays. Per Lisa they try to make it. Noted.
[2019-07-01] MEDS: JEVITY 1.2 CAL 1,000 ML BOTTLE GT PRN (13:46)
--- NOTE | 2019-07-01 16:54 | NUR ---
RT NOTE RECEIVED PATIENT ON TRACH WITH COOL AEROSOL. TRACH IS PATENT AND SECURED. SPARE TRACH AND BVM IS AT BEDSIDE. PATIENT HAS EQUAL CHEST RISE AND COARSE BILATERAL BREATH SOUNDS. SUCTION SMALL AMOUNT OF THICK GREEN SECRETIONS THROUGH OUT THE DAY. NO SOB NOTED. Addendum: 07/01/19 at 1654 by ANDREINA YOUNGER RT Amended: Links added.
[2019-07-01 20:50] VITALS: BP 112/48
[2019-07-01] MEDS: POLYETHYLENE GLYCOL 3350 17 GM POWD.PACK GT SCH (21:30)
[2019-07-02] MEDS: ALBUTEROL FS 2.5 MG/3 ML VIAL.NEB NEB SCH ×4 (01:51→20:05)
[2019-07-02] MEDS: MYCOPHENOLATE MOFETIL SUSP 500 MG/2.5 ML UDC GT SCH ×2 (05:41→17:36)
[2019-07-02] MEDS: POLYVINYL ALCOHOL 15 ML BOTTLE EACHEYE SCH ×4 (05:41→23:08)
[2019-07-02] MEDS: CHLORHEXIDINE GLUCONATE 15 ML UDC MM SCH ×2 (05:41→17:36)
[2019-07-02] MEDS: JEVITY 1.2 CAL 1,000 ML BOTTLE GT PRN ×2 (05:41→19:08)
[2019-07-02 07:54] VITALS: BP 118/89
[2019-07-02] MEDS: HYDROGEN PEROXIDE 480 ML BOTTLE TP SCH ×2 (08:17→21:05)
[2019-07-02] MEDS: FOLIC ACID 1 MG TABLET GT SCH ×2 (08:59→17:36)
[2019-07-02] MEDS: BACLOFEN (10 MG) 10 MG TABLET GT SCH ×3 (08:59→17:36)
[2019-07-02] MEDS: SERTRALINE HCL 25 MG TABLET GT SCH (08:59)
[2019-07-02] MEDS: LEVETIRACETAM SOL (5 ML) 100 MG/ML UDC GT SCH ×2 (08:59→20:09)
[2019-07-02] MEDS: SENNOSIDES 8.6 MG TABLET GT SCH (08:59)
[2019-07-02] MEDS: Z GUARD REMEDY 2 OZ OINT TP SCH ×2 (09:00→20:09)
[2019-07-02] MEDS: Z GUARD REMEDY 4 OZ OINT TP SCH ×2 (09:00→20:09)
[2019-07-02] MEDS: HEPARIN SODIUM, PORCINE 5000 UNITS/1 ML VIAL SQ SCH ×2 (09:00→20:09)
--- NOTE | 2019-07-02 17:06 | NUR ---
RT NOTE RECEIVED PATIENT ON TRACH WITH COOL AEROSOL. TRACH IS PATENT AND SECURED. SPARE TRACH AND BVM IS AT BEDSIDE. PATIENT HAS EQUAL CHEST RISE AND COARSE BILATERAL BREATH SOUNDS. SUCTION SMALL AMOUNT OF THICK GREEN SECRETIONS THROUGH OUT THE DAY. NO SOB NOTED. Addendum: 07/02/19 at 1706 by ANDREINA YOUNGER RT Amended: Links added.
[2019-07-02 19:34] VITALS: BP 132/87
[2019-07-02] MEDS: POLYETHYLENE GLYCOL 3350 17 GM POWD.PACK GT SCH (21:23)
[2019-07-03] MEDS: ALBUTEROL FS 2.5 MG/3 ML VIAL.NEB NEB SCH ×4 (01:53→19:30)
[2019-07-03] MEDS: POLYVINYL ALCOHOL 15 ML BOTTLE EACHEYE SCH ×4 (05:08→23:56)
[2019-07-03] MEDS: CHLORHEXIDINE GLUCONATE 15 ML UDC MM SCH ×2 (05:08→18:03)
[2019-07-03] MEDS: MYCOPHENOLATE MOFETIL SUSP 500 MG/2.5 ML UDC GT SCH ×2 (05:08→18:03)
[2019-07-03 07:37] VITALS: BP 122/72
[2019-07-03] MEDS: HYDROGEN PEROXIDE 480 ML BOTTLE TP SCH ×2 (08:17→20:30)
[2019-07-03] MEDS: SENNOSIDES 8.6 MG TABLET GT SCH (09:04)
[2019-07-03] MEDS: SERTRALINE HCL 25 MG TABLET GT SCH (09:04)
[2019-07-03] MEDS: Z GUARD REMEDY 2 OZ OINT TP SCH ×2 (09:04→20:47)
[2019-07-03] MEDS: Z GUARD REMEDY 4 OZ OINT TP SCH ×2 (09:04→20:47)
[2019-07-03] MEDS: FOLIC ACID 1 MG TABLET GT SCH ×2 (09:04→16:45)
[2019-07-03] MEDS: HEPARIN SODIUM, PORCINE 5000 UNITS/1 ML VIAL SQ SCH ×2 (09:04→20:47)
[2019-07-03] MEDS: BACLOFEN (10 MG) 10 MG TABLET GT SCH ×3 (09:04→16:46)
[2019-07-03] MEDS: LEVETIRACETAM SOL (5 ML) 100 MG/ML UDC GT SCH ×2 (09:04→20:53)
--- NOTE | 2019-07-03 13:47 | NUR ---
Seen and examined by Dr. Aguilar no new orders.
--- NOTE | 2019-07-03 20:32 | NUR ---
RT PT RECEIVED ON COOL AEROSOL AT 5 LPM. TRACHED WITH PORT[place] 9. NO RESPIRATORY DISTRESS. AMBU BAG AT HEAD OF BED. SPARE TRACH AT BED SIDE. WILL CONTINUE TO MONITOR. Addendum: 07/03/19 at 2331 by RICKEY MELTON RT Amended: Links added.
[2019-07-03 20:58] VITALS: BP 118/75
[2019-07-03] MEDS: POLYETHYLENE GLYCOL 3350 17 GM POWD.PACK GT SCH (21:48)
[2019-07-04] MEDS: ALBUTEROL FS 2.5 MG/3 ML VIAL.NEB NEB SCH ×4 (01:54→19:46)
[2019-07-04] MEDS: JEVITY 1.2 CAL 1,000 ML BOTTLE GT PRN ×2 (04:10→23:55)
[2019-07-04] MEDS: CHLORHEXIDINE GLUCONATE 15 ML UDC MM SCH ×2 (05:42→17:49)
[2019-07-04] MEDS: MYCOPHENOLATE MOFETIL SUSP 500 MG/2.5 ML UDC GT SCH ×2 (05:42→17:49)
[2019-07-04] MEDS: POLYVINYL ALCOHOL 15 ML BOTTLE EACHEYE SCH ×3 (05:42→17:49)
[2019-07-04 07:48] VITALS: BP 109/48
[2019-07-04] MEDS: HYDROGEN PEROXIDE 480 ML BOTTLE TP SCH ×2 (08:25→21:00)
[2019-07-04] MEDS: SERTRALINE HCL 25 MG TABLET GT SCH (08:44)
[2019-07-04] MEDS: FOLIC ACID 1 MG TABLET GT SCH ×2 (08:44→17:49)
[2019-07-04] MEDS: BACLOFEN (10 MG) 10 MG TABLET GT SCH ×3 (08:44→17:49)
[2019-07-04] MEDS: LEVETIRACETAM SOL (5 ML) 100 MG/ML UDC GT SCH ×2 (08:44→20:26)
[2019-07-04] MEDS: SENNOSIDES 8.6 MG TABLET GT SCH (08:44)
[2019-07-04] MEDS: Z GUARD REMEDY 2 OZ OINT TP SCH (08:45)
[2019-07-04] MEDS: HEPARIN SODIUM, PORCINE 5000 UNITS/1 ML VIAL SQ SCH ×2 (08:45→20:27)
[2019-07-04] MEDS: Z GUARD REMEDY 4 OZ OINT TP SCH ×2 (08:45→20:27)
[2019-07-04 20:43] VITALS: BP 128/74
[2019-07-04] MEDS: POLYETHYLENE GLYCOL 3350 17 GM POWD.PACK GT SCH (21:22)
[2019-07-05] MEDS: POLYVINYL ALCOHOL 15 ML BOTTLE EACHEYE SCH ×4 (00:33→23:32)
[2019-07-05] MEDS: ALBUTEROL FS 2.5 MG/3 ML VIAL.NEB NEB SCH ×4 (01:09→19:48)
--- NOTE | 2019-07-05 07:45 | NUR ---
RT PT RECEIVED ON COOL AEROSOL AT 5 LPM. TRACHED WITH PORTEX 9. SPARE TRACH AT BEDSIDE. AMBU BAG AT HEAD OF BED. HEAD OF BED AT 30 DEGREES. NO RESPIRATORY DISTRESS. WILL CONTINUE TO MONITOR. Addendum: 07/05/19 at 1630 by RICKEY MELTON RT Amended: Links added.
[2019-07-05] MEDS: BACLOFEN (10 MG) 10 MG TABLET GT SCH ×3 (09:00→16:21)
[2019-07-05] MEDS: LEVETIRACETAM SOL (5 ML) 100 MG/ML UDC GT SCH ×2 (09:00→20:23)
[2019-07-05] MEDS: Z GUARD REMEDY 4 OZ OINT TP SCH ×2 (09:00→20:24)
[2019-07-05] MEDS: HEPARIN SODIUM, PORCINE 5000 UNITS/1 ML VIAL SQ SCH ×2 (09:00→20:24)
[2019-07-05] MEDS: SENNOSIDES 8.6 MG TABLET GT SCH (09:00)
[2019-07-05] MEDS: FOLIC ACID 1 MG TABLET GT SCH ×2 (09:00→16:21)
[2019-07-05] MEDS: SERTRALINE HCL 25 MG TABLET GT SCH (09:00)
[2019-07-05] MEDS: HYDROGEN PEROXIDE 480 ML BOTTLE TP SCH ×2 (09:01→21:00)
--- NOTE | 2019-07-05 11:50 | NUR ---
Dr Aguilar ordered to decrease Keppra from 1500 mg q 12 to 1000 mg q 12 hours. Pt has not had any seizure episodes. Addendum: 07/05/19 at 1535 by JAIDEN GARCIA RN Notified pt's father.
[2019-07-05 12:36] VITALS: BP 115/74
[2019-07-05] MEDS: MYCOPHENOLATE MOFETIL SUSP 500 MG/2.5 ML UDC GT SCH (17:04)
[2019-07-05] MEDS: JEVITY 1.2 CAL 1,000 ML BOTTLE GT PRN (17:04)
[2019-07-05] MEDS: CHLORHEXIDINE GLUCONATE 15 ML UDC MM SCH (17:04)
[2019-07-05 20:56] VITALS: BP 133/56
[2019-07-05] MEDS: POLYETHYLENE GLYCOL 3350 17 GM POWD.PACK GT SCH (21:55)
[2019-07-06] MEDS: ALBUTEROL FS 2.5 MG/3 ML VIAL.NEB NEB SCH ×4 (01:22→19:32)
[2019-07-06] MEDS: POLYVINYL ALCOHOL 15 ML BOTTLE EACHEYE SCH ×3 (06:15→17:15)
[2019-07-06] MEDS: MYCOPHENOLATE MOFETIL SUSP 500 MG/2.5 ML UDC GT SCH ×2 (06:15→17:15)
[2019-07-06] MEDS: CHLORHEXIDINE GLUCONATE 15 ML UDC MM SCH ×2 (06:15→17:15)
[2019-07-06 07:47] VITALS: BP 141/52
[2019-07-06] MEDS: HYDROGEN PEROXIDE 480 ML BOTTLE TP SCH ×2 (09:00→21:00)
[2019-07-06] MEDS: FOLIC ACID 1 MG TABLET GT SCH ×2 (09:01→16:15)
[2019-07-06] MEDS: BACLOFEN (10 MG) 10 MG TABLET GT SCH ×3 (09:01→16:15)
[2019-07-06] MEDS: SERTRALINE HCL 25 MG TABLET GT SCH (09:01)
[2019-07-06] MEDS: SENNOSIDES 8.6 MG TABLET GT SCH (09:01)
[2019-07-06] MEDS: HEPARIN SODIUM, PORCINE 5000 UNITS/1 ML VIAL SQ SCH ×2 (09:01→21:31)
[2019-07-06] MEDS: LEVETIRACETAM SOL (5 ML) 100 MG/ML UDC GT SCH ×2 (09:01→21:31)
[2019-07-06] MEDS: Z GUARD REMEDY 4 OZ OINT TP SCH ×2 (09:02→21:31)
[2019-07-06] MEDS: JEVITY 1.2 CAL 1,000 ML BOTTLE GT PRN (13:12)
[2019-07-06 21:07] VITALS: BP 135/70
[2019-07-06] MEDS: POLYETHYLENE GLYCOL 3350 17 GM POWD.PACK GT SCH (21:31)
[2019-07-07] MEDS: POLYVINYL ALCOHOL 15 ML BOTTLE EACHEYE SCH ×5 (00:37→23:58)
[2019-07-07] MEDS: JEVITY 1.2 CAL 1,000 ML BOTTLE GT PRN (00:40)
[2019-07-07] MEDS: ALBUTEROL FS 2.5 MG/3 ML VIAL.NEB NEB SCH ×4 (01:59→20:09)
[2019-07-07] MEDS: CHLORHEXIDINE GLUCONATE 15 ML UDC MM SCH ×2 (05:22→18:15)
[2019-07-07] MEDS: MYCOPHENOLATE MOFETIL SUSP 500 MG/2.5 ML UDC GT SCH ×2 (05:22→18:15)
[2019-07-07 08:00] VITALS: BP 123/61
[2019-07-07] MEDS: HYDROGEN PEROXIDE 480 ML BOTTLE TP SCH ×2 (08:17→20:58)
[2019-07-07] MEDS: SERTRALINE HCL 25 MG TABLET GT SCH (09:00)
[2019-07-07] MEDS: Z GUARD REMEDY 4 OZ OINT TP SCH ×2 (09:00→21:39)
[2019-07-07] MEDS: FOLIC ACID 1 MG TABLET GT SCH ×2 (09:00→16:33)
[2019-07-07] MEDS: SENNOSIDES 8.6 MG TABLET GT SCH (09:00)
[2019-07-07] MEDS: HEPARIN SODIUM, PORCINE 5000 UNITS/1 ML VIAL SQ SCH ×2 (09:00→21:39)
[2019-07-07] MEDS: LEVETIRACETAM SOL (5 ML) 100 MG/ML UDC GT SCH ×2 (09:00→21:38)
[2019-07-07] MEDS: BACLOFEN (10 MG) 10 MG TABLET GT SCH ×3 (09:00→16:41)
[2019-07-07 20:46] VITALS: BP 126/72
--- NOTE | 2019-07-07 20:59 | NUR ---
RT NOTE PT RECEIVED TRACHED ON COOL AEROSOL. AMBU BAG/BACK UP TRACH @ BEDSIDE. TX GIVEN, NO ADVERSE REACTIONS NOTED. SX DONE, TRACH SECURED AND PATENT. WATER LEVEL GOOD. NO SOB NOTED. Addendum: 07/07/19 at 2100 by ALBERTA DON RT Amended: Links added.
[2019-07-07] MEDS: POLYETHYLENE GLYCOL 3350 17 GM POWD.PACK GT SCH (21:39)
[2019-07-08] MEDS: ALBUTEROL FS 2.5 MG/3 ML VIAL.NEB NEB SCH ×4 (02:28→20:19)
[2019-07-08] MEDS: POLYVINYL ALCOHOL 15 ML BOTTLE EACHEYE SCH ×4 (06:00→23:39)
[2019-07-08] MEDS: MYCOPHENOLATE MOFETIL SUSP 500 MG/2.5 ML UDC GT SCH ×2 (06:00→18:45)
[2019-07-08] MEDS: CHLORHEXIDINE GLUCONATE 15 ML UDC MM SCH ×2 (06:00→18:45)
[2019-07-08 07:40] VITALS: BP 126/74
[2019-07-08] MEDS: Z GUARD REMEDY 4 OZ OINT TP SCH ×2 (09:00→21:40)
[2019-07-08] MEDS: HEPARIN SODIUM, PORCINE 5000 UNITS/1 ML VIAL SQ SCH ×2 (09:00→21:40)
[2019-07-08] MEDS: HYDROGEN PEROXIDE 480 ML BOTTLE TP SCH ×2 (09:00→20:20)
[2019-07-08] MEDS: SENNOSIDES 8.6 MG TABLET GT SCH (09:08)
[2019-07-08] MEDS: FOLIC ACID 1 MG TABLET GT SCH ×2 (09:08→16:17)
[2019-07-08] MEDS: BACLOFEN (10 MG) 10 MG TABLET GT SCH ×3 (09:08→16:17)
[2019-07-08] MEDS: LEVETIRACETAM SOL (5 ML) 100 MG/ML UDC GT SCH ×2 (09:08→21:39)
[2019-07-08] MEDS: SERTRALINE HCL 25 MG TABLET GT SCH (09:08)
[2019-07-08] MEDS: JEVITY 1.2 CAL 1,000 ML BOTTLE GT PRN ×2 (12:06→23:42)
[2019-07-08 20:23] VITALS: BP 120/62
--- NOTE | 2019-07-08 20:38 | NUR ---
PT RCVD TRACH'D ON COOL AEROSOL WITH CHARTED SETTINGS. PT JIMBO TX WELL. SX DONE. PT TRACH IS PATENT AND SECURE. AMBU BAG AT BEDSIDE. NO SOB NOTED. Addendum: 07/08/19 at 2037 by USHA SUMMERS RT Amended: Links added.
[2019-07-08] MEDS: POLYETHYLENE GLYCOL 3350 17 GM POWD.PACK GT SCH (21:40)
[2019-07-09] MEDS: ALBUTEROL FS 2.5 MG/3 ML VIAL.NEB NEB SCH ×4 (01:14→20:03)
[2019-07-09] MEDS: CHLORHEXIDINE GLUCONATE 15 ML UDC MM SCH ×2 (05:48→17:07)
[2019-07-09] MEDS: MYCOPHENOLATE MOFETIL SUSP 500 MG/2.5 ML UDC GT SCH ×2 (05:48→17:07)
[2019-07-09] MEDS: POLYVINYL ALCOHOL 15 ML BOTTLE EACHEYE SCH ×4 (05:48→23:38)
[2019-07-09] MEDS: HYDROGEN PEROXIDE 480 ML BOTTLE TP SCH ×2 (07:44→20:03)
[2019-07-09 08:39] VITALS: BP 137/54
[2019-07-09] MEDS: LEVETIRACETAM SOL (5 ML) 100 MG/ML UDC GT SCH ×2 (09:47→20:45)
[2019-07-09] MEDS: FOLIC ACID 1 MG TABLET GT SCH ×2 (09:47→17:07)
[2019-07-09] MEDS: BACLOFEN (10 MG) 10 MG TABLET GT SCH ×3 (09:47→17:07)
[2019-07-09] MEDS: SENNOSIDES 8.6 MG TABLET GT SCH (09:47)
[2019-07-09] MEDS: SERTRALINE HCL 25 MG TABLET GT SCH (09:47)
[2019-07-09] MEDS: Z GUARD REMEDY 4 OZ OINT TP SCH ×2 (09:48→20:46)
[2019-07-09] MEDS: HEPARIN SODIUM, PORCINE 5000 UNITS/1 ML VIAL SQ SCH ×2 (09:48→20:46)
[2019-07-09] MEDS: JEVITY 1.2 CAL 1,000 ML BOTTLE GT PRN (17:07)
--- NOTE | 2019-07-09 20:13 | NUR ---
RT NOTE: RECEIVED TRACH PT ON COOL AEROSOL. AMBU BAG @ BEDSIDE. Q6 BREATHING TX GIVEN PER MD ORDERS WITH NO ADVERSE REACTION NOTED. SX DONE PRN. TRACH PATENT AND SECURED. TRACH CARE DONE. NO RESP DISTRESS NOTED AT THIS TIME. WILL CONTINUE TO MONITOR PT Addendum: 07/10/19 at 0114 by DOV GREENBERG RT Amended: Links added.
[2019-07-09 20:44] VITALS: BP 107/71
[2019-07-09] MEDS: POLYETHYLENE GLYCOL 3350 17 GM POWD.PACK GT SCH (21:15)
[2019-07-10] MEDS: ALBUTEROL FS 2.5 MG/3 ML VIAL.NEB NEB SCH ×4 (01:03→20:06)
[2019-07-10] MEDS: MYCOPHENOLATE MOFETIL SUSP 500 MG/2.5 ML UDC GT SCH ×2 (05:49→17:27)
[2019-07-10] MEDS: CHLORHEXIDINE GLUCONATE 15 ML UDC MM SCH ×2 (05:49→17:27)
[2019-07-10] MEDS: POLYVINYL ALCOHOL 15 ML BOTTLE EACHEYE SCH ×3 (05:49→17:27)
[2019-07-10] MEDS: HYDROGEN PEROXIDE 480 ML BOTTLE TP SCH ×2 (08:22→23:41)
[2019-07-10] MEDS: SERTRALINE HCL 25 MG TABLET GT SCH (09:00)
[2019-07-10] MEDS: BACLOFEN (10 MG) 10 MG TABLET GT SCH ×3 (09:00→17:27)
[2019-07-10] MEDS: LEVETIRACETAM SOL (5 ML) 100 MG/ML UDC GT SCH ×2 (09:00→21:57)
[2019-07-10] MEDS: SENNOSIDES 8.6 MG TABLET GT SCH (09:00)
[2019-07-10] MEDS: Z GUARD REMEDY 4 OZ OINT TP SCH ×2 (09:00→21:58)
[2019-07-10] MEDS: FOLIC ACID 1 MG TABLET GT SCH ×2 (09:00→17:27)
[2019-07-10] MEDS: HEPARIN SODIUM, PORCINE 5000 UNITS/1 ML VIAL SQ SCH ×2 (09:00→21:58)
[2019-07-10 10:35] VITALS: BP 130/60
[2019-07-10] MEDS: JEVITY 1.2 CAL 1,000 ML BOTTLE GT PRN (13:22)
[2019-07-10 19:49] VITALS: BP 124/50
[2019-07-10] MEDS: POLYETHYLENE GLYCOL 3350 17 GM POWD.PACK GT SCH (21:58)
[2019-07-11] MEDS: POLYVINYL ALCOHOL 15 ML BOTTLE EACHEYE SCH ×5 (00:38→23:57)
[2019-07-11] MEDS: ALBUTEROL FS 2.5 MG/3 ML VIAL.NEB NEB SCH ×4 (02:18→19:47)
[2019-07-11] MEDS: JEVITY 1.2 CAL 1,000 ML BOTTLE GT PRN (05:07)
[2019-07-11] MEDS: CHLORHEXIDINE GLUCONATE 15 ML UDC MM SCH ×2 (05:07→17:17)
[2019-07-11] MEDS: MYCOPHENOLATE MOFETIL SUSP 500 MG/2.5 ML UDC GT SCH ×2 (05:07→17:17)
[2019-07-11 07:37] VITALS: BP 105/67
[2019-07-11] MEDS: HYDROGEN PEROXIDE 480 ML BOTTLE TP SCH ×2 (07:56→21:08)
[2019-07-11] MEDS: Z GUARD REMEDY 4 OZ OINT TP SCH ×2 (08:38→21:47)
[2019-07-11] MEDS: SERTRALINE HCL 25 MG TABLET GT SCH (08:38)
[2019-07-11] MEDS: SENNOSIDES 8.6 MG TABLET GT SCH (08:38)
[2019-07-11] MEDS: BACLOFEN (10 MG) 10 MG TABLET GT SCH ×3 (08:38→17:17)
[2019-07-11] MEDS: HEPARIN SODIUM, PORCINE 5000 UNITS/1 ML VIAL SQ SCH ×2 (08:38→21:47)
[2019-07-11] MEDS: FOLIC ACID 1 MG TABLET GT SCH ×2 (08:38→17:17)
[2019-07-11] MEDS: LEVETIRACETAM SOL (5 ML) 100 MG/ML UDC GT SCH ×2 (08:38→21:46)
[2019-07-11 20:52] VITALS: BP 129/84
[2019-07-11] MEDS: POLYETHYLENE GLYCOL 3350 17 GM POWD.PACK GT SCH (21:47)
[2019-07-12] MEDS: ALBUTEROL FS 2.5 MG/3 ML VIAL.NEB NEB SCH ×4 (02:22→20:02)
[2019-07-12] MEDS: MYCOPHENOLATE MOFETIL SUSP 500 MG/2.5 ML UDC GT SCH ×2 (05:56→18:04)
[2019-07-12] MEDS: POLYVINYL ALCOHOL 15 ML BOTTLE EACHEYE SCH ×3 (05:56→18:04)
[2019-07-12] MEDS: CHLORHEXIDINE GLUCONATE 15 ML UDC MM SCH ×2 (05:56→18:04)
[2019-07-12] MEDS: HYDROGEN PEROXIDE 480 ML BOTTLE TP SCH ×2 (08:19→20:02)
[2019-07-12 08:21] VITALS: BP 123/67
[2019-07-12] MEDS: BACLOFEN (10 MG) 10 MG TABLET GT SCH ×3 (08:46→16:40)
[2019-07-12] MEDS: LEVETIRACETAM SOL (5 ML) 100 MG/ML UDC GT SCH ×2 (08:46→21:00)
[2019-07-12] MEDS: FOLIC ACID 1 MG TABLET GT SCH ×2 (08:46→16:40)
[2019-07-12] MEDS: SERTRALINE HCL 25 MG TABLET GT SCH (08:46)
[2019-07-12] MEDS: SENNOSIDES 8.6 MG TABLET GT SCH (08:46)
[2019-07-12] MEDS: Z GUARD REMEDY 4 OZ OINT TP SCH ×2 (08:49→21:00)
[2019-07-12] MEDS: HEPARIN SODIUM, PORCINE 5000 UNITS/1 ML VIAL SQ SCH ×2 (08:49→21:00)
--- NOTE | 2019-07-12 09:40 | NUR ---
Seen and examined by Dr. Lubin NNO given
[2019-07-12] MEDS: JEVITY 1.2 CAL 1,000 ML BOTTLE GT PRN (16:40)
[2019-07-12 19:45] VITALS: BP 122/72
--- NOTE | 2019-07-12 20:24 | NUR ---
PT RCVD TRACH'D ON COOL AEROSOL WITH CHARTED SETTINGS. PT JIMBO TX WELL. SX DONE. PT TRACH IS PATENT AND SECURE. AMBU BAG AT BEDSIDE. NO SOB NOTED. Addendum: 07/12/19 at 2023 by USHA SUMMERS RT Amended: Links added.
[2019-07-12] MEDS: POLYETHYLENE GLYCOL 3350 17 GM POWD.PACK GT SCH (22:02)
[2019-07-13] MEDS: ALBUTEROL FS 2.5 MG/3 ML VIAL.NEB NEB SCH ×4 (00:48→19:25)
[2019-07-13] MEDS: POLYVINYL ALCOHOL 15 ML BOTTLE EACHEYE SCH ×5 (06:24→23:36)
[2019-07-13] MEDS: MYCOPHENOLATE MOFETIL SUSP 500 MG/2.5 ML UDC GT SCH ×2 (06:24→17:05)
[2019-07-13] MEDS: CHLORHEXIDINE GLUCONATE 15 ML UDC MM SCH ×2 (06:24→17:05)
[2019-07-13] MEDS: HYDROGEN PEROXIDE 480 ML BOTTLE TP SCH ×2 (08:08→19:25)
[2019-07-13 08:41] VITALS: BP 115/71
[2019-07-13] MEDS: SENNOSIDES 8.6 MG TABLET GT SCH (09:00)
[2019-07-13] MEDS: HEPARIN SODIUM, PORCINE 5000 UNITS/1 ML VIAL SQ SCH ×2 (09:00→20:25)
[2019-07-13] MEDS: LEVETIRACETAM SOL (5 ML) 100 MG/ML UDC GT SCH ×2 (09:00→20:25)
[2019-07-13] MEDS: SERTRALINE HCL 25 MG TABLET GT SCH (09:00)
[2019-07-13] MEDS: FOLIC ACID 1 MG TABLET GT SCH ×2 (09:00→17:05)
[2019-07-13] MEDS: BACLOFEN (10 MG) 10 MG TABLET GT SCH ×3 (09:00→17:05)
[2019-07-13] MEDS: Z GUARD REMEDY 4 OZ OINT TP SCH ×2 (09:00→20:25)
[2019-07-13] MEDS: JEVITY 1.2 CAL 1,000 ML BOTTLE GT PRN (10:13)
--- NOTE | 2019-07-13 16:48 | NUR ---
RT NOTE RECEIVED PATIENT ON TRACH WITH COOL AEROSOL. TRACH IS PATENT AND SECURED. SPARE TRACH AND BVM IS AT BEDSIDE. PATIENT HAS EQUAL CHEST RISE WITH CLEAR TO DIMINISHED BILATERAL BREATH SOUNDS. PATIENT IS COMFORTABLE. Q6 BREATHING TREATMENTS GIVEN WITH NO ADVERSE REACTIONS. SUCTION SMALL THICK GREEN SECRETIONS THROUGH OUT THE DAY. NO SOB NOTED. Addendum: 07/13/19 at 1649 by ANDREINA YOUNGER RT Amended: Links added.
[2019-07-13 20:18] VITALS: BP 112/72
[2019-07-13] MEDS: POLYETHYLENE GLYCOL 3350 17 GM POWD.PACK GT SCH (22:15)
[2019-07-14] MEDS: ALBUTEROL FS 2.5 MG/3 ML VIAL.NEB NEB SCH ×4 (01:51→19:42)
--- NOTE | 2019-07-14 02:38 | NUR ---
PATIENT RECEIVED ON 28% AEROSOL T-TUBE, TOLERATING WITH NO DISTRESS/SOB NOTED. SUCTIONED FOR MINIMAL, THICK, YELLOW SECRETIONS. GIVEN IN-LINE TREATMENTS WITH NO ADVERSE REACTIONS. AMBU BAG AT BEDSIDE. TRACH CARE DONE. Addendum: 07/14/19 at 0239 by JANAY CANCINO RT Amended: Links added.
[2019-07-14] MEDS: JEVITY 1.2 CAL 1,000 ML BOTTLE GT PRN ×2 (05:03→17:06)
[2019-07-14] MEDS: POLYVINYL ALCOHOL 15 ML BOTTLE EACHEYE SCH ×4 (05:03→23:20)
[2019-07-14] MEDS: CHLORHEXIDINE GLUCONATE 15 ML UDC MM SCH ×2 (05:03→17:06)
[2019-07-14] MEDS: MYCOPHENOLATE MOFETIL SUSP 500 MG/2.5 ML UDC GT SCH ×2 (05:03→17:06)
[2019-07-14 07:36] VITALS: BP 98/61
[2019-07-14] MEDS: HYDROGEN PEROXIDE 480 ML BOTTLE TP SCH ×2 (09:00→20:39)
[2019-07-14] MEDS: LEVETIRACETAM SOL (5 ML) 100 MG/ML UDC GT SCH ×2 (09:19→20:39)
[2019-07-14] MEDS: SENNOSIDES 8.6 MG TABLET GT SCH (09:19)
[2019-07-14] MEDS: BACLOFEN (10 MG) 10 MG TABLET GT SCH ×3 (09:19→17:06)
[2019-07-14] MEDS: SERTRALINE HCL 25 MG TABLET GT SCH (09:19)
[2019-07-14] MEDS: FOLIC ACID 1 MG TABLET GT SCH ×2 (09:19→17:06)
[2019-07-14] MEDS: HEPARIN SODIUM, PORCINE 5000 UNITS/1 ML VIAL SQ SCH ×2 (09:20→20:39)
[2019-07-14] MEDS: Z GUARD REMEDY 4 OZ OINT TP SCH ×2 (09:20→20:39)
[2019-07-14] MEDS: POLYETHYLENE GLYCOL 3350 17 GM POWD.PACK GT SCH (21:09)
[2019-07-14 21:45] VITALS: BP 133/61
[2019-07-15] MEDS: ALBUTEROL FS 2.5 MG/3 ML VIAL.NEB NEB SCH ×4 (01:18→20:14)
[2019-07-15] MEDS: MYCOPHENOLATE MOFETIL SUSP 500 MG/2.5 ML UDC GT SCH ×2 (05:40→17:21)
[2019-07-15] MEDS: POLYVINYL ALCOHOL 15 ML BOTTLE EACHEYE SCH ×4 (05:40→23:16)
[2019-07-15] MEDS: CHLORHEXIDINE GLUCONATE 15 ML UDC MM SCH ×2 (05:40→17:21)
[2019-07-15 07:56] VITALS: BP 129/57
[2019-07-15] MEDS: HYDROGEN PEROXIDE 480 ML BOTTLE TP SCH ×2 (08:11→20:25)
[2019-07-15] MEDS: FOLIC ACID 1 MG TABLET GT SCH ×2 (08:59→17:20)
[2019-07-15] MEDS: LEVETIRACETAM SOL (5 ML) 100 MG/ML UDC GT SCH ×2 (08:59→20:25)
[2019-07-15] MEDS: SENNOSIDES 8.6 MG TABLET GT SCH (08:59)
[2019-07-15] MEDS: BACLOFEN (10 MG) 10 MG TABLET GT SCH ×3 (08:59→17:20)
[2019-07-15] MEDS: SERTRALINE HCL 25 MG TABLET GT SCH (08:59)
[2019-07-15] MEDS: HEPARIN SODIUM, PORCINE 5000 UNITS/1 ML VIAL SQ SCH ×2 (09:00→20:25)
[2019-07-15] MEDS: Z GUARD REMEDY 4 OZ OINT TP SCH ×2 (09:00→20:25)
[2019-07-15] MEDS: JEVITY 1.2 CAL 1,000 ML BOTTLE GT PRN (12:47)
[2019-07-15] MEDS: POLYETHYLENE GLYCOL 3350 17 GM POWD.PACK GT SCH (21:05)
--- NOTE | 2019-07-15 22:37 | NUR ---
PT RECEIVE STABLE ON C/A @ 28% FIO2 VIA T-BAR, TRACH PATENT AND SECURED, VICTOR HUGO HANDY AND LUIS F NICHOLSON IS AT BEDSIDE, WILL CONTINUE TO MONITOR, Addendum: 07/15/19 at 2239 by JAH OLSON RT Amended: Links added.
[2019-07-16] MEDS: ALBUTEROL FS 2.5 MG/3 ML VIAL.NEB NEB SCH ×4 (01:30→19:44)
[2019-07-16] MEDS: CHLORHEXIDINE GLUCONATE 15 ML UDC MM SCH ×2 (05:30→18:17)
[2019-07-16] MEDS: POLYVINYL ALCOHOL 15 ML BOTTLE EACHEYE SCH ×4 (05:30→23:14)
[2019-07-16] MEDS: JEVITY 1.2 CAL 1,000 ML BOTTLE GT PRN ×2 (05:30→18:58)
[2019-07-16] MEDS: MYCOPHENOLATE MOFETIL SUSP 500 MG/2.5 ML UDC GT SCH ×2 (05:30→18:17)
[2019-07-16 08:07] VITALS: BP 129/67
[2019-07-16] MEDS: FOLIC ACID 1 MG TABLET GT SCH ×2 (08:41→17:18)
[2019-07-16] MEDS: BACLOFEN (10 MG) 10 MG TABLET GT SCH ×3 (08:41→17:18)
[2019-07-16] MEDS: SENNOSIDES 8.6 MG TABLET GT SCH (08:42)
[2019-07-16] MEDS: SERTRALINE HCL 25 MG TABLET GT SCH (08:42)
[2019-07-16] MEDS: LEVETIRACETAM SOL (5 ML) 100 MG/ML UDC GT SCH ×2 (08:42→20:27)
[2019-07-16] MEDS: Z GUARD REMEDY 4 OZ OINT TP SCH ×2 (08:44→20:28)
[2019-07-16] MEDS: HEPARIN SODIUM, PORCINE 5000 UNITS/1 ML VIAL SQ SCH ×2 (08:44→20:28)
[2019-07-16] MEDS: HYDROGEN PEROXIDE 480 ML BOTTLE TP SCH ×2 (09:01→20:28)
[2019-07-16 19:54] VITALS: BP 136/78
[2019-07-16 19:57] VITALS: BP 108/66
[2019-07-16] MEDS: POLYETHYLENE GLYCOL 3350 17 GM POWD.PACK GT SCH (21:10)
[2019-07-17] MEDS: ALBUTEROL FS 2.5 MG/3 ML VIAL.NEB NEB SCH ×4 (02:22→19:38)
[2019-07-17] MEDS: POLYVINYL ALCOHOL 15 ML BOTTLE EACHEYE SCH ×4 (05:36→23:34)
[2019-07-17] MEDS: CHLORHEXIDINE GLUCONATE 15 ML UDC MM SCH ×2 (05:36→17:22)
[2019-07-17] MEDS: MYCOPHENOLATE MOFETIL SUSP 500 MG/2.5 ML UDC GT SCH ×2 (05:36→17:22)
[2019-07-17 08:03] VITALS: BP 128/71
[2019-07-17] MEDS: HYDROGEN PEROXIDE 480 ML BOTTLE TP SCH ×2 (09:00→21:00)
[2019-07-17] MEDS: Z GUARD REMEDY 4 OZ OINT TP SCH ×2 (09:00→20:10)
[2019-07-17] MEDS: BACLOFEN (10 MG) 10 MG TABLET GT SCH ×3 (09:07→17:22)
[2019-07-17] MEDS: LEVETIRACETAM SOL (5 ML) 100 MG/ML UDC GT SCH ×2 (09:07→20:09)
[2019-07-17] MEDS: FOLIC ACID 1 MG TABLET GT SCH ×2 (09:07→17:22)
[2019-07-17] MEDS: SENNOSIDES 8.6 MG TABLET GT SCH (09:07)
[2019-07-17] MEDS: SERTRALINE HCL 25 MG TABLET GT SCH (09:08)
[2019-07-17] MEDS: HEPARIN SODIUM, PORCINE 5000 UNITS/1 ML VIAL SQ SCH ×2 (09:09→20:10)
[2019-07-17] MEDS: JEVITY 1.2 CAL 1,000 ML BOTTLE GT PRN (14:48)
[2019-07-17 19:51] VITALS: BP 124/73
[2019-07-17] MEDS: POLYETHYLENE GLYCOL 3350 17 GM POWD.PACK GT SCH (22:02)
[2019-07-18] MEDS: ALBUTEROL FS 2.5 MG/3 ML VIAL.NEB NEB SCH ×4 (01:40→20:02)
[2019-07-18] MEDS: POLYVINYL ALCOHOL 15 ML BOTTLE EACHEYE SCH ×4 (05:15→23:12)
[2019-07-18] MEDS: CHLORHEXIDINE GLUCONATE 15 ML UDC MM SCH ×2 (05:15→17:40)
[2019-07-18] MEDS: MYCOPHENOLATE MOFETIL SUSP 500 MG/2.5 ML UDC GT SCH ×2 (05:15→17:40)
[2019-07-18] MEDS: HYDROGEN PEROXIDE 480 ML BOTTLE TP SCH ×2 (07:55→20:17)
[2019-07-18] MEDS: FOLIC ACID 1 MG TABLET GT SCH ×2 (09:00→17:40)
[2019-07-18] MEDS: Z GUARD REMEDY 4 OZ OINT TP SCH ×2 (09:00→20:09)
[2019-07-18] MEDS: HEPARIN SODIUM, PORCINE 5000 UNITS/1 ML VIAL SQ SCH ×2 (09:00→20:09)
[2019-07-18] MEDS: SERTRALINE HCL 25 MG TABLET GT SCH (09:00)
[2019-07-18] MEDS: LEVETIRACETAM SOL (5 ML) 100 MG/ML UDC GT SCH ×2 (09:00→20:07)
[2019-07-18] MEDS: BACLOFEN (10 MG) 10 MG TABLET GT SCH ×3 (09:00→17:40)
[2019-07-18] MEDS: SENNOSIDES 8.6 MG TABLET GT SCH (09:00)
[2019-07-18 10:21] VITALS: BP 115/58
--- NOTE | 2019-07-18 10:47 | NUR ---
RT NOTE RECEIVED PATIENT ON TRACH WITH COOL AEROSOL. TRACH IS PATENT AND SECURED. SPARE TRACH AND BVM IS AT BEDSIDE. PATIENT HAS EQUAL CHEST RISE AND DIMINISHED TROUGH OUT BILATERAL BREATH SOUNDS. SUCTION SMALL AMOUNT OF GREEN THICK SECRETIONS. PATIENT IS COMFORTABLE. WILL CONTINUE TO MONITOR. Addendum: 07/18/19 at 1048 by ANDREINA YOUNGER RT Amended: Links added.
[2019-07-18 20:09] VITALS: BP 123/70
--- NOTE | 2019-07-18 20:54 | NUR ---
PT RCVD TRACH'D ON COOL AEROSOL WITH CHARTED SETTINGS. PT JIMBO TX WELL. SX DONE. PT TRACH IS PATENT AND SECURE. AMBU BAG AT BEDSIDE. NO SOB NOTED. Addendum: 07/18/19 at 2053 by USHA SUMMERS RT Amended: Links added.
[2019-07-18] MEDS: POLYETHYLENE GLYCOL 3350 17 GM POWD.PACK GT SCH (22:21)
[2019-07-19] MEDS: ALBUTEROL FS 2.5 MG/3 ML VIAL.NEB NEB SCH ×4 (01:06→19:44)
[2019-07-19] MEDS: MYCOPHENOLATE MOFETIL SUSP 500 MG/2.5 ML UDC GT SCH ×2 (05:26→18:56)
[2019-07-19] MEDS: POLYVINYL ALCOHOL 15 ML BOTTLE EACHEYE SCH ×3 (05:26→18:56)
[2019-07-19] MEDS: CHLORHEXIDINE GLUCONATE 15 ML UDC MM SCH ×2 (05:27→18:56)
[2019-07-19 07:56] VITALS: BP 121/69
[2019-07-19] MEDS: HYDROGEN PEROXIDE 480 ML BOTTLE TP SCH ×2 (08:45→21:00)
[2019-07-19] MEDS: BACLOFEN (10 MG) 10 MG TABLET GT SCH ×3 (09:15→17:00)
[2019-07-19] MEDS: FOLIC ACID 1 MG TABLET GT SCH ×2 (09:15→17:00)
[2019-07-19] MEDS: LEVETIRACETAM SOL (5 ML) 100 MG/ML UDC GT SCH ×2 (09:15→21:00)
[2019-07-19] MEDS: SERTRALINE HCL 25 MG TABLET GT SCH (09:15)
[2019-07-19] MEDS: SENNOSIDES 8.6 MG TABLET GT SCH (09:15)
[2019-07-19] MEDS: HEPARIN SODIUM, PORCINE 5000 UNITS/1 ML VIAL SQ SCH ×2 (09:16→21:01)
[2019-07-19] MEDS: Z GUARD REMEDY 4 OZ OINT TP SCH ×2 (09:16→21:01)
--- NOTE | 2019-07-19 15:01 | NUR ---
HILTON left a voicemail for pt.'s responsible green party/ Lisa Tellez [phone] informing them that the pt. will receive a new account for the new year and new intake paperwork must be completed. HILTON will await for Lisa's call to schedule a meeting time.
[2019-07-19] MEDS: JEVITY 1.2 CAL 1,000 ML BOTTLE GT PRN (18:57)
[2019-07-19 20:28] VITALS: BP 133/76
[2019-07-19] MEDS: POLYETHYLENE GLYCOL 3350 17 GM POWD.PACK GT SCH (22:02)
[2019-07-20] MEDS: POLYVINYL ALCOHOL 15 ML BOTTLE EACHEYE SCH ×4 (00:47→17:14)
[2019-07-20] MEDS: ALBUTEROL FS 2.5 MG/3 ML VIAL.NEB NEB SCH ×4 (01:46→19:48)
[2019-07-20] MEDS: MYCOPHENOLATE MOFETIL SUSP 500 MG/2.5 ML UDC GT SCH ×2 (05:10→17:53)
[2019-07-20] MEDS: CHLORHEXIDINE GLUCONATE 15 ML UDC MM SCH ×2 (05:10→17:53)
[2019-07-20 07:58] VITALS: BP 129/74
[2019-07-20] MEDS: HYDROGEN PEROXIDE 480 ML BOTTLE TP SCH ×2 (08:20→19:48)
[2019-07-20] MEDS: SENNOSIDES 8.6 MG TABLET GT SCH (08:48)
[2019-07-20] MEDS: BACLOFEN (10 MG) 10 MG TABLET GT SCH ×3 (08:48→17:14)
[2019-07-20] MEDS: LEVETIRACETAM SOL (5 ML) 100 MG/ML UDC GT SCH ×2 (08:48→21:43)
[2019-07-20] MEDS: FOLIC ACID 1 MG TABLET GT SCH ×2 (08:48→17:14)
[2019-07-20] MEDS: SERTRALINE HCL 25 MG TABLET GT SCH (08:49)
[2019-07-20] MEDS: Z GUARD REMEDY 4 OZ OINT TP SCH ×2 (09:00→21:43)
[2019-07-20] MEDS: HEPARIN SODIUM, PORCINE 5000 UNITS/1 ML VIAL SQ SCH ×2 (09:00→21:00)
[2019-07-20 19:43] VITALS: BP 117/74
[2019-07-20] MEDS: POLYETHYLENE GLYCOL 3350 17 GM POWD.PACK GT SCH (21:43)
[2019-07-21] MEDS: POLYVINYL ALCOHOL 15 ML BOTTLE EACHEYE SCH ×2 (00:17→05:00)
[2019-07-21] MEDS: ALBUTEROL FS 2.5 MG/3 ML VIAL.NEB NEB SCH ×2 (01:38→07:48)
[2019-07-21] MEDS: MYCOPHENOLATE MOFETIL SUSP 500 MG/2.5 ML UDC GT SCH (05:00)
[2019-07-21] MEDS: CHLORHEXIDINE GLUCONATE 15 ML UDC MM SCH (05:00)
[2019-07-21] MEDS: JEVITY 1.2 CAL 1,000 ML BOTTLE GT PRN (05:51)
--- NOTE | 2019-07-21 05:55 | NUR ---
PATIENT RECEIVED ON 28% AEROSOL T-TUBE, TOLERATING WITH NO DISTRESS/SOB NOTED. SUCTIONED FOR MINIMAL, THIN, YELLOW SECRETIONS. GIVEN IN-LINE TREATMENTS WITH NO ADVERSE REACTIONS. AMBU BAG AT BEDSIDE. TRACH CARE DONE. Addendum: 07/21/19 at 0556 by JANAY CANCINO RT Amended: Links added.
[2019-07-21 07:44] VITALS: BP 110/68
[2019-07-21] MEDS: HYDROGEN PEROXIDE 480 ML BOTTLE TP SCH (07:48)
== END 2019-07-19 23:59 | disposition still patient (30) | DRG 189 ==
LOC: SA
PROVIDERS: ADMIT Internal Medicine Pulmonary Disease; ATTEND Internal Medicine
DX: J96.11 Chronic respiratory failure with hypoxia (principal); R53.2 Functional quadriplegia; J69.0 Pneumonitis due to inhalation of food and vomit; L10.0 Pemphigus vulgaris; E44.1 Mild protein-calorie malnutrition; L51.1 Stevens-Johnson syndrome; G93.1 Anoxic brain damage, not elsewhere classified; G81.94 Hemiplegia, unspecified affecting left nondominant side; G93.49 Other encephalopathy; J95.01 Hemorrhage from tracheostomy stoma; N39.0 Urinary tract infection, site not specified; Z99.11 Dependence on respirator [ventilator] status; I69.398 Other sequelae of cerebral infarction; Z82.49 Family history of ischemic heart disease and other diseases of the circulatory system; G40.409 Other generalized epilepsy and epileptic syndromes, not intractable, without status epilepticus; Z98.82 Breast implant status; D63.8 Anemia in other chronic diseases classified elsewhere; Z93.0 Tracheostomy status; D69.59 Other secondary thrombocytopenia; K21.9 Gastro-esophageal reflux disease without esophagitis; M19.90 Unspecified osteoarthritis, unspecified site; M24.569 Contracture, unspecified knee; Z68.21 Body mass index [BMI] 21.0-21.9, adult; R13.10 Dysphagia, unspecified; K63.89 Other specified diseases of intestine; K12.0 Recurrent oral aphthae; I15.8 Other secondary hypertension; Z74.01 Bed confinement status; Z87.440 Personal history of urinary (tract) infections; Z91.19 Patient's noncompliance with other medical treatment and regimen; Z99.3 Dependence on wheelchair; B34.9 Viral infection, unspecified; B96.4 Proteus (mirabilis) (morganii) as the cause of diseases classified elsewhere; D69.6 Thrombocytopenia, unspecified; D89.9 Disorder involving the immune mechanism, unspecified; I10 Essential (primary) hypertension; K59.00 Constipation, unspecified; L60.3 Nail dystrophy; T38.0X5A Adverse effect of glucocorticoids and synthetic analogues, initial encounter; Z79.899 Other long term (current) drug therapy; Z87.01 Personal history of pneumonia (recurrent); Z93.1 Gastrostomy status
CPT/HCPCS: 31720; 36415; 71045-TC; 74018; 80048-TC; 80053-TC; 81000-TC; 82962-TC; 85025-TC; 87070-TC; 87086-TC; 87186-TC; 94003-TC; 94640-TC; 94760-TC; 94799-TC; A4217; A4623; A7526; G0008; J0696; J1644; J1953; J2185; J7030; J7060; J7517; Q2036; Q9963

== ENCOUNTER 2018-09-29 09:31 | Inpatient (IN) | payer MEDICARE, OTHER ==
[~2018-09-29] VITALS: Ht 154.9 cm; Wt 60.8 kg
--- NOTE | 2018-09-29 08:00 | NUR ---
RN NOTES RECEIVED REPORT FROM KENYATTA BROWER FOR PATIENT COMING IN FROM OUR [facility]ACUTE FOR MEDICATION ADMINISTRATION (RITUXAN) DUE TO PEMPHIGUS VULGARIS UNDER THE SERVICE OF DR. CHAIDEZ. ROOM PREPARED. AWAITHING PATIENT'S ARRIVAL
[~2018-09-29 09:31] MED LIST changes: -OMEP40CA13 GT; +OMEP40CA37 GT
--- NOTE | 2018-09-29 10:20 | NUR ---
RN NOTES RECEIVED PATIENT FROM SUBACUTE UNIT VIA BED ACCOMPANIED BY NEETU YOU, RT AND PLASTIC PRODUCTION MACHINE SETTER. PATIENT ALERT AND ORIENTED X1, ABLE TO TRACK, NONVERBAL, ON OXYGEN SUPPORT VIA NASAL CANNULA AT 2 LPM, NO SOB NOTED. SATING WELL. NO S/S OF PAIN NOTED AT THIS TIME. VITAL SIGNS TAKEN AND NOTED FOLLOWS: 110/64, HR 93, RR 18 TEMP AT 98.4. SKIN ASSESSMENT DONE-NOTED WITH PERIANAL EXCORIATION. ATTACHED TO THE TELEMONITOR: SR WITH HR ON THE 90'S, IVLINE ON THE LHAND G24: IN PLACE BUT WITH RESISTANCE ON FLUSHING, LFOOT G 20: IN PLACE BUT NO VENOUS RETURN NOTED- WILL INFORM DR CHAIDEZ. BELONGING ACCOUNTED FOR- NO BELONGINGS BROUGHT IN. SAFETY MEASURES OBSERVED AND MAINTAINED. HOB KEPT ELEVATED. BED LOW AND LOCKED POSITIONED. SRX2 UP. CALL LIGHT PLACED WITHIN REACH. WILL CONTINUE TO MONITOR PATIENT CLOSELY Addendum: 09/29/18 at 1548 by DARIUSZ ACUÑA RN ERROR ON NASAL CANNULA. PATIENT ON TRACH MASK WITH 3LPM
[2018-09-29] MEDS ORDERED: diphenhydrAMINE HCL 50 MG/ML VIAL IV ONE (10:30)
[2018-09-29] MEDS ORDERED: DEXAMETHASONE SOD PHOSPHATE 4 MG/ML VIAL IV ONE (10:30)
[2018-09-29] MEDS ORDERED: FAMOTIDINE/PF INJ 20 MG/2 ML VIAL IV ONE (10:30)
[2018-09-29] MEDS ORDERED: MEPERIDINE HCL/PF 50 MG/ML DISP.SYRIN IV PRN (10:30)
[2018-09-29] MEDS ORDERED: ACETAMINOPHEN 650 MG/20.3 ML UDC GT ONE (10:30)
--- NOTE | 2018-09-29 10:30 | NUR ---
RN NOTES PREMEDICATION CANNOT BE GIVEN AT THIS TIME DUE TO PATIENT WITHOUT IV ACCESS AT THIS TIME. AWAITING MID LINE INSERTION
--- NOTE | 2018-09-29 10:37 | NUR ---
RN NOTES OBTAINED ORDER FOR MIDLINE INSERTION
--- NOTE | 2018-09-29 10:40 | NUR ---
CLARIFIED WITH PHARMACY REGARDING IV FOR RITUXAN MEDS SINCE PT. NO ACCESS,PER [facility] OK TO USE MIDLINE ,DR. CHAIDEZ NOTIFIED AND GAVE ORDER FOR MIDLINE NURSING SUP MADE AWARE.
--- NOTE | 2018-09-29 11:00 | NUR ---
RN NOTES CALLED ALICIA RICKS ( ) TO INFORM LATER THAT PATIENT HAS BEEN TRANSFERED TO THE UNIT FOR MEDICATION ADMINISTRATION. VERBALIZED UNDERSTANDING
[2018-09-29] MEDS ORDERED: NS 0.9% IV ONE (11:30)
[2018-09-29] MEDS ORDERED: RITUXIMAB IV ONE (11:30)
[2018-09-29 12:00] VITALS: BP 110/64
[2018-09-29] MEDS: JEVITY 1.2 CAL 1,000 ML BOTTLE GT PRN (13:42)
[2018-09-29] MEDS ORDERED: MAGNESIUM HYDROXIDE 30 ML UDC GT PRN (14:00)
[2018-09-29] MEDS ORDERED: LORAZEPAM INJ 2 MG/ML VIAL IM PRN (14:00)
[2018-09-29] MEDS ORDERED: HYDROGEN PEROXIDE 480 ML BOTTLE TP PRN ×2 (14:00)
[2018-09-29] MEDS ORDERED: ACETAMINOPHEN LIQUID 325 MG/10.1 ML UDC GT PRN (14:00)
[2018-09-29] MEDS ORDERED: JEVITY 1.2 CAL 1,000 ML BOTTLE GT SCH (14:00)
--- NOTE | 2018-09-29 15:10 | NUR ---
RN NOTES STARTED RITUXAN ADMINISTRATION THROUGH THE MIDLINE. PATIENT WITH INTERMITTENT SLEEP, RESPONSIBLE TO VERBAL AND TACTILE STIMULI, NOT ON ANY FORM OF DISTRESS. INITIAL VITAL SIGNS ARE FOLLOWS BP 108/66, HR AT 97, TEMP AT 97.7 VIA AXILLARY, RR AT 18, SATS AT 97, PATIENT WITH TRACH MASK AT 3LPM
--- NOTE | 2018-09-29 15:40 | NUR ---
RN NOTES NO S/S OF DISTRESS NOTES AT THIS TIME. NO INDICATION OF PAIN NOTED. RR [id number], SAT AT 98%, BLOOD PRESSURE AT 107/67, HR AT 80BPM TEMP AT 97.7.
[2018-09-29 16:00] VITALS: BP 107/67
[2018-09-29] MEDS: FOLIC ACID 1 MG TABLET GT SCH (16:15)
--- NOTE | 2018-09-29 17:01 | NUR ---
PT. TOLERATING TREATMENT,NO ACUTE DISTRESS.VSS.
--- NOTE | 2018-09-29 17:02 | NUR ---
BP 114/43,T 98.9,RR 18,HR 90.
[2018-09-29] MEDS: BACLOFEN (10 MG) 10 MG TABLET GT SCH (17:47)
[2018-09-29] MEDS: CHLORHEXIDINE GLUCONATE 15 ML UDC MM SCH (17:47)
--- NOTE | 2018-09-29 18:00 | NUR ---
RN NOTES PATIENT STILL ON RIBUXAN ADMINISTRATION. TOLERATING ADMINISTRATION WELL ON STABLE CONDITION N0T ON ANY FORM OF DISTRESS. BLOOD PRESSURE FOLLOW 112/ 73, HR AT 87, TEMP AT 99.3, RR AT 20, SATS AT 97%
--- NOTE | 2018-09-29 19:00 | NUR ---
RN INITIAL NOTES RECEIVED THE PATIENT AWAKE ON BED, A/O X1 ONLY, NON-VERBAL. CURRENTLY ON COOL AEROSOL, PORTEX 9, FIO2 28%, SATURATING WELL, NO S/S OF RESP DISTRESS. CURRENTLY SR ON THE MONITOR. PT IS INCONTINENT, ON DIAPERS ONLY. PEG INTACT, WITH JEVITY 1.2 FEEDING @ 80MLS/HR, NO RESIDUALS. RIGHT UPPER ARM MIDLINE FLUSHED AND PATENT, NO S/S OF INFECTION/INFILTRATION, DRESSING CDI. BED LOW AND LOCKED, SIDERAILS UP, CALL LIGHT WITHIN REACH. WILL MONITOR
--- NOTE | 2018-09-29 19:19 | NUR ---
RN NOTES ENDORSED PATIENT FOR CONTINUITY OF CARE. NO ACUTE CHANGES WITHIN SHIFT. NO APPARENT BLEEDING. NO SOB NOTED. TOLERATING TRACH MASK. RIBUXAN TREATMENT STILL INFUSING. PATIENT VITALS FOLLOWS BP AT 114/71, HR AT 81, RR AT 21, SATS AT 87, TEMP AT 98.1. HOB KEPT ELEVATED. TOLERATING FEEDING WELL. SAFETY MEASURES IN PLACE. CALL LIGHT WITHIN REACH
[2018-09-29] MEDS: ALBUTEROL FS 2.5 MG/0.5 ML VIAL.NEB NEB SCH (19:32)
--- NOTE | 2018-09-29 19:35 | NUR ---
RN NOTES STILL CURRENTLY ON RITUXAN TREATMENT, VSS, NO S/S OF ADVERSE EFFECTS. WILL CONTINUE TO MONITOR
[2018-09-29 20:00] VITALS: BP 112/69
[2018-09-29] MEDS: SENNOSIDES 8.6 MG TABLET GT SCH (21:27)
[2018-09-29] MEDS: MYCOPHENOLATE MOFETIL SUSP 500 MG/2.5 ML UDC GT SCH (21:27)
[2018-09-29] MEDS: LEVETIRACETAM SOL (5 ML) 100 MG/ML UDC GT SCH (21:27)
[2018-09-29] MEDS: Z GUARD REMEDY 2 OZ OINT TP SCH (21:28)
[2018-09-29] MEDS ORDERED: POLYETHYLENE GLYCOL 3350 17 GM POWD.PACK GT SCH (22:00)
[2018-09-30] VITALS: BP 108/66
[2018-09-30] MEDS: ALBUTEROL FS 2.5 MG/0.5 ML VIAL.NEB NEB SCH ×3 (01:09→12:48)
[2018-09-30 04:00] VITALS: BP 111/70
[2018-09-30] MEDS: CHLORHEXIDINE GLUCONATE 15 ML UDC MM SCH (05:10)
--- NOTE | 2018-09-30 06:20 | NUR ---
RN CLOSING NOTES PT REMAINS STABLE OF THE MOMENT. ALL DUE MEDS GIVEN, AM CARE PROVIDED. WILL ENDORSE LISA TO AM RN
--- NOTE | 2018-09-30 07:47 | NUR ---
[facility] RN NOTES RECEIVED PATENT IN BED ALERT, AWAKE NONVERBAL OPEN BOTH EYES , WITH TRACH TO COLLER AEROSOL SETTING SAT 94% AT THIS TIME ,RT AT BEDSIDE ,NO SOB NOTED. TOLERATING TRACH MASK. . HOB KEPT ELEVATED. ON TELE MONITOR SR HR 88 TOLERATING FEEDING WELL ,NO REFUSAL NOTED . SAFETY MEASURES IN PLACE. CALL LIGHT WITHIN REACH, RT UPPER ARM PICC LINE IN PLACE, NO S\S INFECTING NOTED , BED IN LOWEST AND LOCKED POSITION , PLAN OF CAR DISCUSSED WITH PATIENT WILL CONT TO MONITOR CLOSELY
[2018-09-30 08:00] VITALS: BP 109/67
[2018-09-30] MEDS: BACLOFEN (10 MG) 10 MG TABLET GT SCH ×2 (08:37→12:35)
[2018-09-30] MEDS: LEVETIRACETAM SOL (5 ML) 100 MG/ML UDC GT SCH (08:37)
[2018-09-30] MEDS: SENNOSIDES 8.6 MG TABLET GT SCH (08:38)
[2018-09-30] MEDS: FOLIC ACID 1 MG TABLET GT SCH (08:42)
[2018-09-30] MEDS: MYCOPHENOLATE MOFETIL SUSP 500 MG/2.5 ML UDC GT SCH (08:47)
[2018-09-30] MEDS: Z GUARD REMEDY 2 OZ OINT TP SCH (08:48)
[2018-09-30] MEDS: JEVITY 1.2 CAL 1,000 ML BOTTLE GT PRN (08:56)
[2018-09-30] MEDS ORDERED: SERTRALINE HCL 25 MG TABLET GT SCH (09:00)
--- NOTE | 2018-09-30 10:30 | NUR ---
MS RN NOTE ON BREATHING TX, ALL NEEDS ATTENDED, TURN REPOSITION , CONT ON G TUBE FEEDING ORDERED WILL CONT TO MONITOR CLOSELY
[2018-09-30 12:00] VITALS: BP_SYST 110; BP_SYST 136; BP_DIAS 69; BP_DIAS 87
--- NOTE | 2018-09-30 13:12 | NUR ---
MS RN NOTE PER DR CHAIDEZ OK TO TRANSFER TO [facility]ACUTE TO SNF
--- NOTE | 2018-09-30 15:00 | NUR ---
MS RN NOTE CALLED SUB ACUTE [facility]. SPOKE WITH VERONICA RAMOS RN TO REMOVE MID-LINE. REPORT GIVEN. SPOKE WITH PRINT SHOP HELPER VERONICA VAIL TO REMOVE MID-LINE. CALLED ALICIA (SON) NOTIFIED PATIENT WILL BE TRANSFERRED TO SUB ACUTE. PATIENT SHOWS NO SIGN OF DISTRESS THIS TIME.
--- NOTE | 2018-09-30 15:40 | NUR ---
MS RN NOTES TRANSFER PT TO [facility] BY RT AND RN WITH STABLE CONDITION. STILL HAVE SOME BLEEDING AT TRACH SITE. TRAC SUCTION DONE AND LAVAGE BY RT. DR BONDS PIPE FINISHING SUPERVISOR IS AWARE. REPORT GIVEN TO RICHARD YOU, MID LINE SITE ON R UPPER ARM. INTACT, NO BLEEDING. PRESSURE DRESSING APPLIED. NO SOB, O2 SAT @ 97. RICHARD YOU IS AWARE OF BLEEDING AT TRACH SITE.
--- NOTE | 2018-09-30 15:40 | NUR ---
RT NOTE: PATIENT RECEIVED TRACHED ON COOL AEROSOL. SUCTIONED AND COLD SALINE LAVAGED MODERATE-LARGE AMOUNT OF THICK BLOODY SECRETIONS. NO DISTRESS NOTED. TRANSFERRED TO SUBACUTE WITH NO PROBLEMS.
== END 2018-09-30 15:30 | DRG 596 ==
LOC: MEDSG1 09:31 → TELE1 09:37 → TELE-TD 10:10 → MEDSG1 09-30 12:02
PROVIDERS: ADMIT Internal Medicine; ATTEND Internal Medicine
PROC: 05H533Z Insertion of Infusion Device into Right Subclavian Vein, Percutaneous Approach (ICD-10-PCS; principal; 2018-09-29)
PROC: B546ZZA Ultrasonography of Right Subclavian Vein, Guidance (ICD-10-PCS; 2018-09-29)
DX: L10.0 Pemphigus vulgaris (principal); J96.10 Chronic respiratory failure, unspecified whether with hypoxia or hypercapnia; G93.49 Other encephalopathy; G40.409 Other generalized epilepsy and epileptic syndromes, not intractable, without status epilepticus; D63.8 Anemia in other chronic diseases classified elsewhere; R13.10 Dysphagia, unspecified; Z87.440 Personal history of urinary (tract) infections; M24.575 Contracture, left foot; Z93.0 Tracheostomy status
CPT/HCPCS: 31720; 87081-TC; 94640-TC; 94760-TC; A6402; G0378; J1100; J1200; J1953; J3490; J7050; J7517

== ENCOUNTER 2019-04-01 08:40 | Inpatient (IN) | payer MEDICARE, OTHER ==
[~2019-04-01] VITALS: Ht 157.5 cm; Wt 59.9 kg
[2019-04-01] VITALS (12 sets, daily range): BP systolic 89–128; BP diastolic 49–78
[~2019-04-01 08:40] MED LIST changes: -BLOO-668 IN; -DEXT50DI8 IV; -HEPA50007 SQ; -INSU100V3 SQ; -PRED20TA GT
--- NOTE | 2019-04-01 10:15 | NUR ---
DIRECT ADMISSION FROM [facility]- REPORT RECEIVED FROM KENYATTA ANAYA
--- NOTE | 2019-04-01 10:25 | NUR ---
[facility] CRAB MEAT PROCESSOR NOTE RECEIVED PATIENT FROM [facility] FOR SUPERVISOR METALIZING. AWAKE, NONVERBAL, FOLLOWS SOME COMMAND. TRACH IN PLACE, ATTACHED TO 5L COOL AEROSOL. SPO2 100%, NO ACUTE DISTRESS OR SOB NOTED. SUCTION EQUIPMENT AT BEDSIDE. TELE MONITOR ATTACHED, SINUS RHYTHM HR 72. BP 111/73 ON R ARM, TEMP 98.7AX. NOTED TO BE CONTRACTED. SKIN CHECK DONE, PICTURES TAKEN. SKIN INTACT - NOTED HEALED BLISTER SCARRING ON BACK + REDNESS ON BOTTOM. PEG TUBE INTACT & PATENT, NO S/S BLEEDING, ATTACHED TO FEEDING ORDERED. NO IV SITE UPON ARRIVAL. MIDLINE PENDING. NURSING QUILL STRIPPER AWARE + ORDER GIVEN BY DR. BARILLAS WHO IS AWARE OF PATIENT ARRIVAL ON UNIT. PHONE CONSENT OF MIDLINE + MEDICATION ADMINISTRATION RECEIVED FROM ALICIA. HX OF SEIZURE - PATIENT ON PADDED BED. BED LOCKED, LOW, SIDE RAILS UPX2, HOB >30 DEGREES, CALL LIGHT WITHIN REACH, WILL CONTINUE TO MONITOR
--- NOTE | 2019-04-01 11:01 | NUR ---
PATIENT WITH DIFFICULT VEINS,NURSING SUP MADE AWARE,MELANIE CLEMENT WILL PUT LINE.
[2019-04-01] MEDS ORDERED: HEPA50008 SQ (11:15)
[2019-04-01] MEDS ORDERED: MAGNESIUM HYDROXIDE 30 ML UDC GT PRN (11:30)
[2019-04-01] MEDS ORDERED: ACETAMINOPHEN 650 MG/20.3 ML UDC PO PRN (11:30)
[2019-04-01] MEDS ORDERED: HYDROGEN PEROXIDE 480 ML BOTTLE TP PRN (11:30)
[2019-04-01] MEDS: POLYVINYL ALCOHOL 15 ML BOTTLE EACHEYE SCH ×2 (12:00→18:00)
--- NOTE | 2019-04-01 12:29 | NUR ---
FOLLOW-UP WITH DR. MELANIE CLEMENT MIDLINE PLACEMENT,WILL CONTINUE TO MONITOR.
[2019-04-01] MEDS ORDERED: diphenhydrAMINE HCL 50 MG/ML VIAL IV ONE (13:45)
[2019-04-01] MEDS ORDERED: DEXAMETHASONE SOD PHOSPHATE 4 MG/ML VIAL IV ONE (13:45)
[2019-04-01] MEDS ORDERED: ACETAMINOPHEN 650 MG/20.3 ML UDC GT ONE (13:45)
[2019-04-01] MEDS ORDERED: FAMOTIDINE/PF INJ 20 MG/2 ML VIAL IV ONE (13:45)
--- NOTE | 2019-04-01 13:45 | NUR ---
MIDLINE INSERTION COMPLETE. PATIENT TOLERATED WELL
[2019-04-01] MEDS: BACLOFEN (10 MG) 10 MG TABLET GT SCH ×2 (13:55→18:35)
--- NOTE | 2019-04-01 13:55 | NUR ---
PATIENT PREMEDICATED 1 HR PRIOR TO RITUXIN ADMINISTRATION ORDERED
[2019-04-01] MEDS ORDERED: NS 0.9% IV ONE (14:45)
[2019-04-01] MEDS ORDERED: RITUXIMAB IV ONE (14:45)
--- NOTE | 2019-04-01 14:47 | NUR ---
RITUXIN ADMINISTRATION BEGUN. SEE DOCUMENTATION FOR PRE INFUSION VITALS. RN AT BEDSIDE TO MONITOR FOR REACTION
[2019-04-01] MEDS: ALBUTEROL FS 2.5 MG/3 ML VIAL.NEB NEB SCH ×2 (15:49→19:50)
--- NOTE | 2019-04-01 18:00 | NUR ---
RITUXIN ADMINISTRATION COMPLETED THIS SHIFT, NO S/S REACTION. SEE VITALS.
[2019-04-01] MEDS: CHLORHEXIDINE GLUCONATE 15 ML UDC MM SCH (18:35)
[2019-04-01] MEDS: FOLIC ACID 1 MG TABLET GT SCH (18:35)
[2019-04-01] MEDS: MYCOPHENOLATE MOFETIL SUSP 500 MG/2.5 ML UDC GT SCH (18:35)
[2019-04-01] MEDS ORDERED: Z GUARD REMEDY 4 OZ OINT TP SCH (21:00)
[2019-04-01] MEDS: LEVETIRACETAM SOL (5 ML) 100 MG/ML UDC GT SCH (21:11)
[2019-04-01] MEDS: SENNOSIDES 8.6 MG TABLET GT SCH (21:14)
[2019-04-01] MEDS: HEPARIN SODIUM, PORCINE 5000 UNITS/1 ML VIAL SQ SCH (21:16)
[2019-04-01] MEDS: Z GUARD REMEDY 4 OZ OINT TP SCH (21:18)
[2019-04-01] MEDS: HYDROGEN PEROXIDE 480 ML BOTTLE TP SCH (21:21)
[2019-04-01] MEDS: JEVITY 1.2 CAL 1,000 ML BOTTLE GT PRN (21:40)
[2019-04-01] MEDS: POLYETHYLENE GLYCOL 3350 17 GM POWD.PACK GT SCH (21:40)
--- NOTE | 2019-04-01 21:44 | NUR ---
RT NOTE PT RECEIVED TRACHED ON COOL AEROSOL @ 28%. AMBU BAG/BACK UP TRACH @ BEDSIDE. TX GIVEN, NO ADVERSE REACTIONS NOTED. SX DONE, TRACH SECURED AND PATENT. WATER LEVEL GOOD. NO SOB NOTED. WILL CONTINUE TO MONITOR T/O SHIFT. Addendum: 04/01/19 at 2145 by ALBERTA DON RT Amended: Links added.
[2019-04-02] VITALS (9 sets, daily range): BP systolic 102–123; BP diastolic 57–78
[2019-04-02] MEDS: ALBUTEROL FS 2.5 MG/3 ML VIAL.NEB NEB SCH ×4 (01:14→19:34)
[2019-04-02] MEDS: MYCOPHENOLATE MOFETIL SUSP 500 MG/2.5 ML UDC GT SCH ×2 (05:29→17:05)
[2019-04-02] MEDS: CHLORHEXIDINE GLUCONATE 15 ML UDC MM SCH ×2 (05:29→17:05)
[2019-04-02] MEDS: POLYVINYL ALCOHOL 15 ML BOTTLE EACHEYE SCH ×2 (05:30)
--- NOTE | 2019-04-02 07:10 | NUR ---
RN INITIAL NOTE PATIENT IN BED AWAKE, OPENS EYES. NON VERBAL. NO SIGNS OF ANY ACUTE PAIN NOR SOB AT THIS TIME. ON MECH VENT, SATING WELL AT 100%. ON TELE MONITOR, SR. EXTREMITIES CONTRACTED. ON GTF JEVITY AT 70 ML/HR. HAS RIGHT UA MIDLINE, TKO. WOUND CONSULT PENDING. BED LOCKED AND IN LOWEST POSITION. CALL LIGHT WITHIN REACH. WILL CONTINUE TO MONITOR CLOSELY Addendum: 04/02/19 at 0749 by CHASTITY PYLE RN HAS TRACH WITH PORTEX #9 WITH 5L COOL AEROSOL, NOT ON MECH VENT
[2019-04-02] MEDS: BACLOFEN (10 MG) 10 MG TABLET GT SCH ×3 (08:18→16:38)
[2019-04-02] MEDS: FOLIC ACID 1 MG TABLET GT SCH ×2 (08:18→16:38)
[2019-04-02] MEDS: SENNOSIDES 8.6 MG TABLET GT SCH ×2 (08:19→21:00)
[2019-04-02] MEDS: SERTRALINE HCL 25 MG TABLET GT SCH (08:19)
[2019-04-02] MEDS: LEVETIRACETAM SOL (5 ML) 100 MG/ML UDC GT SCH ×2 (08:19→21:37)
[2019-04-02] MEDS: Z GUARD REMEDY 4 OZ OINT TP SCH ×2 (08:20→21:40)
[2019-04-02] MEDS: HYDROGEN PEROXIDE 480 ML BOTTLE TP SCH ×2 (08:22→21:39)
--- NOTE | 2019-04-02 08:27 | NUR ---
RN NOTE THERE ARE 2 Z GUARDS ORDERED IN [facility]. DC'D THE OTHER ONE
[2019-04-02] MEDS: HEPARIN SODIUM, PORCINE 5000 UNITS/1 ML VIAL SQ SCH ×2 (08:36→21:36)
--- NOTE | 2019-04-02 11:17 | NUR ---
RN NOTE PER PHARMACY, THERE IS A SHORTAGE OF ARTIFICIAL TEARS. CHANGED ORDER TO REFRESH EYEDROPS
[2019-04-02] MEDS ORDERED: CARBOXYMETHYLCELLULOSE SODIUM 0.4 ML DROPERETTE EACHEYE PRN (12:00)
[2019-04-02] MEDS: JEVITY 1.2 CAL 1,000 ML BOTTLE GT PRN (12:15)
[2019-04-02] MEDS: CARBOXYMETHYLCELLULOSE SODIUM 0.4 ML DROPERETTE EACHEYE SCH ×2 (12:51→19:15)
--- NOTE | 2019-04-02 18:05 | NUR ---
RN NOTE CALLED PHARMACY FOR ANOTHER REFRESH EYE DROP. WAITING FOR THEM TO BRING IT
--- NOTE | 2019-04-02 18:43 | NUR ---
RN NOTE PATIENT HAD 3X BM. FIRST 2 WAS NOT WATERY DIARRHEA. 3RD ONE, WATERY WITH FOUL SMELL. WILL ENDORSE TO NOC SHIFT TO CONTINUE TO MONITOR BM
--- NOTE | 2019-04-02 19:08 | NUR ---
RN CLOSING NOTE PATIENT IN BED, AWAKE OPENS EYES. NON VERBAL. NO SIGNS OF ANY ACUTE DISTRESS AT THIS TIME. ON GTF 70 ML/HR. RIGHT UA MIDLINE, SL. HAD 3X BM. COLLECTED THE LAST BM, WILL ENDORSE TO NOC SHIFT. REPOSITIONED PER PROTOCOL. NO OPEN WOUNDS, WOUND CONSULT STILL PENDING. BED LOCKED AND IN LOWEST POSITION. CALL LIGHT WITHIN REACH. ENDORSED TO NOC SHIFT FOR LISA
--- NOTE | 2019-04-02 19:30 | NUR ---
TD RN: RECEIVED CHRONIC TRACH PT ON T-PIECE AT 28% FI02. ALERT AND AWAKE, UNABLE TO FOLLOW COMMANDS. NO ACUTE DISTRESS, NO EVIDENCE OF DISCOMFORT. SR ON TELE MONITOR. GT INTACT AND IN PLACE RUNNING JEVITY 1.2 AT 70ML/HR AND TOLERATING WELL. ENDORSED BY DAY SHIFT WT EPISODE OF DIARRHEA. WILL HOLD ALL LAXATIVE MEDS. TERRI MIDLINE SALINE LOCKED. NO S/S OF COMPLICATIONS. HOB AT 35 DEGREES. BED IN LOWEST POSITION, LOCKED WT PADDED SIDE RAILS UP X2. BED ALARM ON. WILL CONTINUE TO MONITOR FOR ADVERSE CHANGES.
[2019-04-02] MEDS: POLYETHYLENE GLYCOL 3350 17 GM POWD.PACK GT SCH (21:37)
[2019-04-03] VITALS: BP 97/68
[2019-04-03] MEDS: CARBOXYMETHYLCELLULOSE SODIUM 0.4 ML DROPERETTE EACHEYE SCH ×3 (00:07→11:49)
[2019-04-03] MEDS: ALBUTEROL FS 2.5 MG/3 ML VIAL.NEB NEB SCH ×3 (01:24→13:32)
[2019-04-03] MEDS: JEVITY 1.2 CAL 1,000 ML BOTTLE GT PRN (03:38)
[2019-04-03 04:00] VITALS: BP 129/72
[2019-04-03] MEDS: MYCOPHENOLATE MOFETIL SUSP 500 MG/2.5 ML UDC GT SCH (06:09)
[2019-04-03] MEDS: CHLORHEXIDINE GLUCONATE 15 ML UDC MM SCH (06:09)
--- NOTE | 2019-04-03 06:30 | NUR ---
TD RN: REMAINED ALERT AND AWAKE. UNABLE TO FOLLOW SIMPLE COMMANDS. NO EPISODE OF DIARRHEA DURING THE SHIFT. ALL NEEDS MET. WILL ENDORSE TO DAY SHIFT FOR CONTINUITY OF CARE.
--- NOTE | 2019-04-03 07:10 | NUR ---
RN NOTES RECEIVED PT ON BED , CHRONIC TRACH , ON T-PIECE AT 28% FI02. ALERT AND AWAKE, DOES NOT FOLLOW COMMANDS. NO DISTRESS NOTED, ON TELE SR , HR IN 70'S, JEVITY 1.2 AT 70ML/HR RUNNING VIA GT, R UA MIDLINE SALINE LOCKED SITE CLEAN ,DRY AND INTACT, HOB ELEVATED, BED LOCKED AND IN LOWEST POSITION, SR UP X3, CALL LIGHT WITHIN EASY REACH, CONTINUE TO MONITOR .
[2019-04-03 08:00] VITALS: BP 131/71
[2019-04-03] MEDS: SERTRALINE HCL 25 MG TABLET GT SCH (08:11)
[2019-04-03] MEDS: LEVETIRACETAM SOL (5 ML) 100 MG/ML UDC GT SCH (08:11)
[2019-04-03] MEDS: BACLOFEN (10 MG) 10 MG TABLET GT SCH ×2 (08:11→12:53)
[2019-04-03] MEDS: FOLIC ACID 1 MG TABLET GT SCH (08:11)
[2019-04-03] MEDS: SENNOSIDES 8.6 MG TABLET GT SCH (08:12)
[2019-04-03] MEDS: Z GUARD REMEDY 4 OZ OINT TP SCH (08:13)
[2019-04-03] MEDS: HYDROGEN PEROXIDE 480 ML BOTTLE TP SCH (08:19)
[2019-04-03 09:32] LABS: BASOPHILS % (AUTO) 0.5 % (0.0-2.0); EOSINOPHILS % (AUTO) 0.9 % (0.0-6.0); HEMATOCRIT 40 % (33-45); HEMOGLOBIN 12.7 g/dL (11.5-14.8); LYMPHOCYTES # (AUTO) 1.4 /CMM (0.8-4.8); LYMPHOCYTES % (AUTO) 22.1 % (20.0-44.0); MEAN CORPUSCULAR HGB CONC 32 g/dl (31.0-36.0); MEAN CORPUSCULAR VOLUME 87 fL (82-100); MONOCYTES # (AUTO) 0.7 /CMM (0.1-1.30); MONOCYTES % (AUTO) 11.4 % (2.0-12.0); NEUTROPHILS # (AUTO) 4.1 /CMM (1.8-8.9); NEUTROPHILS % (AUTO) 65.1 % (43.0-81.0); PLATELET COUNT (AUTO) 341 /CMM (150-450); RED BLOOD CELL COUNT(AUTO) 4.59 MIL/uL (4.0-5.2); WHITE BLOOD COUNT (AUTO) 6.2 K/uL (4.3-11.0)
[2019-04-03] MEDS: HEPARIN SODIUM, PORCINE 5000 UNITS/1 ML VIAL SQ SCH (09:57)
[2019-04-03 12:00] VITALS: BP 116/59
--- NOTE | 2019-04-03 15:00 | NUR ---
RN NOTES REPORT GIVEN TO SHOSHANA YOU AT [facility] .
[2019-04-03 16:00] VITALS: BP 134/70
--- NOTE | 2019-04-03 16:15 | NUR ---
RN NOTES PT DISCHARGED TO [facility] , VIA BED , IN STABLE CONDITION. R UPPER ARM MIDLINE SITE CLEAN, DRY AND INTACT. SHOSHANA YOU NOTIFED
== END 2019-04-03 16:15 | DRG 596 ==
LOC: DS 08:40 → MEDSG1 08:48 → TELE-TD 09:50
PROVIDERS: ADMIT Internal Medicine; ATTEND Internal Medicine
PROC: 05HY33Z Insertion of Infusion Device into Upper Vein, Percutaneous Approach (ICD-10-PCS; principal; 2019-04-01)
DX: L10.0 Pemphigus vulgaris (principal); J96.10 Chronic respiratory failure, unspecified whether with hypoxia or hypercapnia; G93.49 Other encephalopathy; Z93.0 Tracheostomy status; Z93.1 Gastrostomy status; Z98.82 Breast implant status; M24.575 Contracture, left foot; Z87.01 Personal history of pneumonia (recurrent); G40.409 Other generalized epilepsy and epileptic syndromes, not intractable, without status epilepticus
CPT/HCPCS: 31720; 36415; 85025-TC; 87081-TC; 94640-TC; 94760-TC; 94762-TC; A6253; G0378; J1100; J1200; J1644; J1953; J3490; J7050; J7517

== ENCOUNTER 2019-10-22 09:44 | Outpatient (CLI) | payer MEDICARE, OTHER ==
[~2019-10-22 09:44] MED LIST changes: +HEPA50008 SQ; -LORA2VIA6 IM; -NON-FORMULARY; -OMEP40CA37 GT; -SENN-168 GT; +SENN-261 GT
== END 2019-10-22 23:59 | disposition home or self-care (01) ==
LOC: RAD 09:44
PROVIDERS: ATTEND Internal Medicine
DX: Z75.3 Unavailability and inaccessibility of health-care facilities (principal)
CPT/HCPCS: 71045-TC

== ENCOUNTER 2019-11-11 14:21 | Outpatient (CLI) | payer MEDICARE, OTHER | END 2019-11-11 23:59 | disposition home or self-care (01) | LOC: CT 14:21 | PROVIDERS: ATTEND Internal Medicine | DX: N21.0 Calculus in bladder (principal); J98.11 Atelectasis; N13.30 Unspecified hydronephrosis; N20.0 Calculus of kidney; N85.8 Other specified noninflammatory disorders of uterus; M85.88 Other specified disorders of bone density and structure, other site; M47.817 Spondylosis without myelopathy or radiculopathy, lumbosacral region ==

== ENCOUNTER 2019-11-20 21:04 | Outpatient (CLI) | payer MEDICARE, OTHER | END 2019-11-20 23:59 | disposition other institution (70) | LOC: LAB 21:04 → RAD 23:59 | PROVIDERS: ATTEND Internal Medicine | DX: R50.9 Fever, unspecified (principal); I70.0 Atherosclerosis of aorta; Z93.0 Tracheostomy status | CPT/HCPCS: 71045-TC ==

== ENCOUNTER 2020-08-29 15:31 | Outpatient (CLI) | payer MEDICARE, OTHER | END 2020-08-29 23:59 | disposition home or self-care (01) | LOC: US 15:31 | PROVIDERS: ATTEND Internal Medicine | DX: M79.89 Other specified soft tissue disorders (principal) | CPT/HCPCS: 93971-TC ==

== ENCOUNTER 2021-01-05 11:30 | Day surgery (SDC) | payer MEDICARE, OTHER ==
[~2021-01-05 11:30] MED LIST changes: -POLY17PO29 GT; +POLY17PO52 GT
[2021-01-05] MEDS ORDERED: DIATR MEGLU/DIATRIZOATE SODIUM 30 ML BOTTLE (GASTROGRAPHIN) ONE (18:37)
== END 2021-01-05 23:59 | disposition admitted as inpatient to this hospital (09) ==
LOC: DS 11:30 → GIL 23:59 → DS 23:59 → EDSTATUS 01-07 12:09
PROVIDERS: ATTEND Internal Medicine
DX: R13.19 Other dysphagia (principal); I10 Essential (primary) hypertension; E11.9 Type 2 diabetes mellitus without complications; Z87.440 Personal history of urinary (tract) infections; K21.9 Gastro-esophageal reflux disease without esophagitis; Z79.899 Other long term (current) drug therapy
CPT/HCPCS: 43246; J0690; J2704; Q9963

== ENCOUNTER 2023-07-20 | Inpatient (IN) | payer MEDICARE, OTHER ==
[~2023-07-20] VITALS: Ht 165.1 cm; Wt 57.2 kg
[~2023-07-20] MED LIST changes: +POLY17PO29 GT; -POLY17PO52 GT
[2023-07-21] VITALS (9 sets, daily range): BP systolic 116–120; BP diastolic 77; TEMP 98.1–98.4; O2SAT 28–100
[2023-07-21] MEDS ORDERED: ONDANSETRON HCL 4 MG/5 ML SOLUTION GT PRN (07:30)
[2023-07-21] MEDS ORDERED: MAGNESIUM HYDROXIDE 30 ML UDC GT PRN (07:30)
[2023-07-21] MEDS ORDERED: ALBUTEROL FS 2.5 MG/3 ML VIAL.NEB NEB PRN (07:30)
[2023-07-21] MEDS ORDERED: ACETAMINOPHEN 650 MG/20 ML UDC- SA PATIENTS-PAIN ONLY GT PRN (07:30)
[2023-07-21] MEDS ORDERED: HYDROGEN PEROXIDE 480 ML BOTTLE TP PRN (07:30)
[2023-07-21] MEDS ORDERED: GUAIFENESIN 300 MG/15 ML UDC GT PRN (07:30)
[2023-07-21] MEDS ORDERED: ACETAMINOPHEN 650 MG/20 ML UDC- SA PATIENTS-FEVER ONLY GT PRN (07:30)
[2023-07-21] MEDS: IPRATROPIUM NEB FS 0.5 MG/2.5 ML AMPUL.NEB NEB SCH (08:02)
[2023-07-21] MEDS: ALBUTEROL FS 2.5 MG/0.5 ML VIAL.NEB NEB SCH (08:02)
[2023-07-21] MEDS: HYDROGEN PEROXIDE 480 ML BOTTLE TP SCH (08:04)
[2023-07-21] MEDS: SENNOSIDES 8.6 MG TABLET GT SCH (09:00)
[2023-07-21] MEDS: HEPARIN SODIUM, PORCINE 5000 UNITS/1 ML VIAL SQ SCH (09:00)
[2023-07-21] MEDS: BACLOFEN (10 MG) 10 MG TABLET GT SCH (09:00)
[2023-07-21] MEDS: VITAMINS A AND D 56.7 GM TUBE TP SCH (09:00)
[2023-07-21] MEDS: FOLIC ACID 1 MG TABLET GT SCH (09:00)
[2023-07-21] MEDS: POLYVINYL ALCOHOL 15 ML BOTTLE EACHEYE SCH (12:00)
[2023-07-21] MEDS: CHLORHEXIDINE GLUCONATE 15 ML UDC MM SCH (17:42)
[2023-07-22] VITALS (13 sets, daily range): BP systolic 105–134; BP diastolic 69–71; TEMP 98.8–99.1; O2SAT 96–99
[2023-07-22] MEDS: JEVITY 1.2 CAL 1,000 ML BOTTLE GT PRN (00:54)
[2023-07-23] VITALS (13 sets, daily range): BP systolic 110–128; BP diastolic 61–70; TEMP 98.2–99; O2SAT 96–100
[2023-07-24] VITALS (12 sets, daily range): BP systolic 112–125; BP diastolic 54–74; TEMP 97.5–98.2; O2SAT 97–100
[2023-07-25] VITALS (13 sets, daily range): BP systolic 102–106; BP diastolic 58–60; TEMP 97.7–99.1; O2SAT 98–100
[2023-07-26] VITALS (14 sets, daily range): BP systolic 113–116; BP diastolic 63–66; TEMP 98.1–99.1; O2SAT 97–100
[2023-07-27] VITALS (11 sets, daily range): BP systolic 106–134; BP diastolic 64–71; TEMP 98.1–98.3; O2SAT 96–100
[2023-07-28] VITALS (13 sets, daily range): BP systolic 117–120; BP diastolic 60–74; TEMP 97.9–98.6; O2SAT 98–100
[2023-07-29] VITALS (13 sets, daily range): BP systolic 104–106; BP diastolic 67–79; TEMP 98.4–99; O2SAT 98–100
[2023-07-30] VITALS (13 sets, daily range): BP systolic 102–126; BP diastolic 71–84; TEMP 98.1–98.2; O2SAT 96–100
[2023-07-31] VITALS (12 sets, daily range): BP systolic 107–116; BP diastolic 66–77; TEMP 98.1–98.4; O2SAT 97–100
[2023-08-01] VITALS (12 sets, daily range): BP systolic 112–115; BP diastolic 58–73; TEMP 98–99; O2SAT 97–100
[2023-08-02] VITALS (13 sets, daily range): BP systolic 104–114; BP diastolic 58–75; TEMP 99–99.2; O2SAT 97–100
[2023-08-03] VITALS (12 sets, daily range): BP systolic 104–112; BP diastolic 56–68; TEMP 97.5–99.3; O2SAT 97–100
[2023-08-04] VITALS (14 sets, daily range): BP systolic 104–124; BP diastolic 69–74; TEMP 97.8–97.9; O2SAT 97–100
[2023-08-05] VITALS (13 sets, daily range): BP systolic 107–110; BP diastolic 60–71; TEMP 97.9–98.6; O2SAT 97–100
[2023-08-06] VITALS (12 sets, daily range): BP systolic 104–114; BP diastolic 61–76; TEMP 98.2–98.6; O2SAT 98–100
[2023-08-07] VITALS (12 sets, daily range): BP systolic 105–106; BP diastolic 80–84; TEMP 98.1–98.6; O2SAT 96–100
[2023-08-08] VITALS (12 sets, daily range): BP systolic 118–119; BP diastolic 75–80; TEMP 98.6–99.1; O2SAT 98–100
[2023-08-09] VITALS (13 sets, daily range): BP systolic 106–128; BP diastolic 73–78; TEMP 98–98.7; O2SAT 98–100
[2023-08-10] VITALS (12 sets, daily range): BP systolic 105–128; BP diastolic 57–88; TEMP 98.1–98.6; O2SAT 98–100
[2023-08-11] VITALS (12 sets, daily range): BP systolic 112–117; BP diastolic 69–70; TEMP 98.8–99; O2SAT 94–100
[2023-08-12] VITALS (13 sets, daily range): BP systolic 101–117; BP diastolic 63–68; TEMP 98.6–99; O2SAT 92–100
[2023-08-13] VITALS (13 sets, daily range): BP systolic 116–124; BP diastolic 66–78; TEMP 98.2; O2SAT 97–100
[2023-08-14] VITALS (12 sets, daily range): BP systolic 105–117; BP diastolic 61–66; TEMP 98.6–98.8; O2SAT 97–100
[2023-08-14] MEDS: VASELINE TP SCH (21:36)
[2023-08-15] VITALS (12 sets, daily range): BP systolic 109; BP diastolic 73–86; TEMP 98.1–99.5; O2SAT 97–100
[2023-08-16] VITALS (12 sets, daily range): BP systolic 106–124; BP diastolic 75–76; TEMP 98.7–99.1; O2SAT 98–100
[2023-08-17] VITALS (13 sets, daily range): BP systolic 95–119; BP diastolic 55–77; TEMP 97.9; O2SAT 98–100
[2023-08-18] VITALS (12 sets, daily range): BP systolic 101–104; BP diastolic 59–76; TEMP 97.9–98.6; O2SAT 96–100
[2023-08-19] VITALS (13 sets, daily range): BP systolic 102–108; BP diastolic 58–73; TEMP 97.7–97.9; O2SAT 98–100
[2023-08-20] VITALS (12 sets, daily range): BP systolic 113–128; BP diastolic 60–69; TEMP 97.9–98.1; O2SAT 98–100
[2023-08-21] VITALS (12 sets, daily range): BP systolic 117–128; BP diastolic 56–82; TEMP 98.1; O2SAT 98–100
[2023-08-22] VITALS (12 sets, daily range): BP systolic 116–130; BP diastolic 54–77; TEMP 98.6–99.1; O2SAT 99–100
[2023-08-23] VITALS (13 sets, daily range): BP systolic 116–117; BP diastolic 64–76; TEMP 98.3–99; O2SAT 98–100
[2023-08-24] VITALS (14 sets, daily range): BP systolic 123–134; BP diastolic 81–83; TEMP 97.8–99.1; O2SAT 97–100
[2023-08-25] VITALS (11 sets, daily range): BP systolic 96–113; BP diastolic 64–76; TEMP 98–98.6; O2SAT 98–100
[2023-08-26] VITALS (14 sets, daily range): BP systolic 106–116; BP diastolic 54–57; TEMP 98.1–99; O2SAT 97–100
[2023-08-27] VITALS (13 sets, daily range): BP systolic 116–121; BP diastolic 69–75; TEMP 97.7–98.2; O2SAT 98–100
[2023-08-28] VITALS (13 sets, daily range): BP systolic 106–119; BP diastolic 63–83; TEMP 97.7–98.6; O2SAT 99–100
[2023-08-29] VITALS (12 sets, daily range): BP systolic 107–108; BP diastolic 65–68; TEMP 98.2–98.8; O2SAT 96–100
[2023-08-30] VITALS (12 sets, daily range): BP systolic 107; BP diastolic 82; TEMP 98.1; O2SAT 97–99
[2023-08-31] VITALS (10 sets, daily range): BP systolic 105–117; BP diastolic 68–87; TEMP 98.1–98.6; O2SAT 98–100
[2023-09-01] VITALS (13 sets, daily range): BP systolic 107–109; BP diastolic 67–77; TEMP 98.7–98.8; O2SAT 98–100
[2023-09-02] VITALS (12 sets, daily range): BP systolic 108–109; BP diastolic 70–72; TEMP 98.1–98.4; O2SAT 96–99
[2023-09-03] VITALS (13 sets, daily range): BP systolic 105–108; BP diastolic 75–76; TEMP 98.1–98.6; O2SAT 96–100
[2023-09-04] VITALS (13 sets, daily range): BP systolic 109–123; BP diastolic 68–79; TEMP 98.1; O2SAT 94–100
[2023-09-05] VITALS (12 sets, daily range): BP systolic 95–117; BP diastolic 69–74; TEMP 98–98.2; O2SAT 98–99
[2023-09-06] VITALS (11 sets, daily range): BP systolic 120; BP diastolic 78; TEMP 98.2; O2SAT 98–100
[2023-09-07] VITALS (13 sets, daily range): BP systolic 109–125; BP diastolic 50–70; TEMP 98.1; O2SAT 98–100
[2023-09-08] VITALS (12 sets, daily range): BP systolic 113; BP diastolic 65–69; TEMP 98.2–98.8; O2SAT 97–100
[2023-09-09] VITALS (15 sets, daily range): BP systolic 109–128; BP diastolic 67–75; TEMP 97.8–98.2; O2SAT 98–100
[2023-09-10] VITALS (11 sets, daily range): BP systolic 95–113; BP diastolic 60–73; TEMP 98.2–99; O2SAT 97–99
[2023-09-11] VITALS (13 sets, daily range): BP systolic 109–111; BP diastolic 64–75; TEMP 98.1–98.2; O2SAT 98–99
[2023-09-11] MEDS ORDERED: VANCOMYCIN HCL 1.25 GM in IV D5W 250 ML IV SCH (17:00)
[2023-09-11] MEDS: VANCOMYCIN HCL 1.25 GM in IV D5W 250 ML IV SCH (20:15)
[2023-09-12] VITALS (13 sets, daily range): BP systolic 111–117; BP diastolic 68–75; TEMP 97.5–98.4; O2SAT 96–99
[2023-09-12 07:57] LABS: CALCIUM, SERUM 9.1 mg/dL (8.5-10.1); CREATININE 0.6 mg/dL (0.6-1.3); POTASSIUM 4.4 mmol/L (3.5-5.1)
[2023-09-13] VITALS (12 sets, daily range): BP systolic 113–114; BP diastolic 55–67; TEMP 97.7–98.2; O2SAT 98–100
[2023-09-13 08:57] LABS: CALCIUM, SERUM 9.2 mg/dL (8.5-10.1); CREATININE 0.6 mg/dL (0.6-1.3); POTASSIUM 4.3 mmol/L (3.5-5.1)
[2023-09-13] MEDS: VANCOMYCIN 750 MG in IV D5W 250 ML IV SCH (17:42)
[2023-09-13] MEDS: WHITE PETROLATUM 28.35 GM TUBE TP SCH (20:24)
[2023-09-14] VITALS (12 sets, daily range): BP systolic 119–127; BP diastolic 52–65; TEMP 97.9; O2SAT 98–100
[2023-09-14 08:18] LABS: CALCIUM, SERUM 9.3 mg/dL (8.5-10.1); CHLORIDE 102 mmol/L (98-107); CREATININE 0.6 mg/dL (0.6-1.3); GLUCOSE 93 mg/dL (74-106); POTASSIUM 4.6 mmol/L (3.5-5.1); SODIUM SERUM 136 mmol/L (136-145); UREA NITROGEN, BLOOD 13 mg/dL (7-18)
[2023-09-14 08:28] LABS: CARBON DIOXIDE 25 mmol/L (21-32)
[2023-09-15] VITALS (14 sets, daily range): BP systolic 115–130; BP diastolic 71–77; TEMP 97.7–99; O2SAT 99–100
[2023-09-15 07:43] LABS: CALCIUM, SERUM 9.1 mg/dL (8.5-10.1); CREATININE 0.5 mg/dL (0.6-1.3); POTASSIUM 4.3 mmol/L (3.5-5.1)
[2023-09-16] VITALS (13 sets, daily range): BP systolic 103–120; BP diastolic 51–77; TEMP 97.7–98.2; O2SAT 96–100
[2023-09-16 07:47] LABS: CALCIUM, SERUM 8.8 mg/dL (8.5-10.1); CREATININE 0.7 mg/dL (0.6-1.3); POTASSIUM 4.4 mmol/L (3.5-5.1)
[2023-09-16] MEDS ORDERED: PETROLATUM,WHITE PACKET 5 GM PACKET TP SCH (14:50)
[2023-09-16] MEDS: PETROLATUM,WHITE PACKET 5 GM PACKET TP SCH (21:25)
[2023-09-17] VITALS (12 sets, daily range): BP systolic 108–112; BP diastolic 61–78; TEMP 97.9–98.8; O2SAT 96–100
[2023-09-17 11:15] LABS: BASOPHILS % (AUTO) 0.3 % (0.0-2.0); EOSINOPHILS % (AUTO) 0.6 % (0.0-6.0); HEMATOCRIT 35 % (33-45); HEMOGLOBIN 12.1 g/dL (11.5-14.8); LYMPHOCYTES # (AUTO) 1.4 K/uL (0.8-4.8); LYMPHOCYTES % (AUTO) 26.3 % (20.0-44.0); MEAN CORPUSCULAR HEMOGLOBIN 30 PG (26.0-33.0); MEAN CORPUSCULAR HGB CONC 34 g/dl (31.0-36.0); MEAN CORPUSCULAR VOLUME 88 fL (82-100); MONOCYTES # (AUTO) 0.7 K/uL (0.1-1.30); MONOCYTES % (AUTO) 13.4 % (2.0-12.0); NEUTROPHILS # (AUTO) 3.1 K/uL (1.8-8.9); NEUTROPHILS % (AUTO) 59.4 % (43.0-81.0); PLATELET COUNT (AUTO) 174 K/uL (150-450); RED CELL DISTRIBUTION WIDTH 14.8 % (11.5-15.0); WHITE BLOOD COUNT (AUTO) 5.2 K/uL (4.3-11.0)
[2023-09-17] MEDS ORDERED: POTASSIUM CHLORIDE 20 MEQ POWDER PACKET GT ONE (11:30)
[2023-09-17 13:01] LABS: CALCIUM, SERUM 9.1 mg/dL (8.5-10.1); CREATININE 0.6 mg/dL (0.6-1.3); POTASSIUM 4.1 mmol/L (3.5-5.1)
[2023-09-17] MEDS: VANCOMYCIN HCL 1.25 GM in IV D5W 250 ML IV SCH (18:12)
[2023-09-18] VITALS (13 sets, daily range): BP systolic 104–121; BP diastolic 56–61; TEMP 97.5–97.9; O2SAT 98–100
[2023-09-19] VITALS (13 sets, daily range): BP systolic 104–113; BP diastolic 58–78; TEMP 97.9–98.1; O2SAT 97–99
[2023-09-19] MEDS: COD LIVER OIL/ZINC OXIDE 120 GM TUBE TP SCH (20:37)
[2023-09-19] MEDS: NYSTATIN TOP POWDER 15 GM BOTTLE TP SCH (20:37)
[2023-09-20] VITALS (13 sets, daily range): BP systolic 102–131; BP diastolic 66–67; TEMP 97.7–98.3; O2SAT 97–100
[2023-09-21] VITALS (13 sets, daily range): BP systolic 107–113; BP diastolic 64–67; TEMP 98.1; O2SAT 97–100
[2023-09-22] VITALS (12 sets, daily range): BP systolic 108–122; BP diastolic 58–62; TEMP 98.1–98.6; O2SAT 96–100
[2023-09-23] VITALS (13 sets, daily range): BP systolic 95–117; BP diastolic 76–77; TEMP 98.3–98.8; O2SAT 97–100
[2023-09-24] VITALS (13 sets, daily range): BP systolic 103–110; BP diastolic 48–49; TEMP 97.7–98.2; O2SAT 97–100
[2023-09-25] VITALS (12 sets, daily range): BP systolic 112–113; BP diastolic 57–71; TEMP 97.9; O2SAT 97–100
[2023-09-26] VITALS (12 sets, daily range): BP systolic 103–107; BP diastolic 50–66; TEMP 98.2; O2SAT 98–100
[2023-09-27] VITALS (13 sets, daily range): BP systolic 112–115; BP diastolic 66–92; TEMP 98.1–98.6; O2SAT 94–100
[2023-09-28] VITALS (12 sets, daily range): BP systolic 109–127; BP diastolic 56–74; TEMP 97.9–98.8; O2SAT 98–100
[2023-09-28 19:00] LABS: CREATININE 0.6 mg/dL (0.6-1.3)
[2023-09-29] VITALS (13 sets, daily range): BP systolic 99–106; BP diastolic 55–64; TEMP 97.9–98.6; O2SAT 98–100
[2023-09-30] VITALS (14 sets, daily range): BP systolic 98–110; BP diastolic 65–76; TEMP 97.9–98.1; O2SAT 97–100
[2023-10-01] VITALS (12 sets, daily range): BP systolic 114; BP diastolic 67–71; TEMP 98.1–98.4; O2SAT 95–100
[2023-10-02] VITALS (13 sets, daily range): BP systolic 108–135; BP diastolic 54–73; TEMP 98.1–98.2; O2SAT 98–100
[2023-10-03] VITALS (12 sets, daily range): BP systolic 114–129; BP diastolic 78–90; TEMP 98–98.8; O2SAT 98–99
[2023-10-04] VITALS (12 sets, daily range): BP systolic 99–143; BP diastolic 71–79; TEMP 97.8–98.2; O2SAT 98–100
[2023-10-05] VITALS (12 sets, daily range): BP systolic 124–133; BP diastolic 58–65; TEMP 98–98.1; O2SAT 98–100
[2023-10-05 18:45] LABS: CREATININE 0.6 mg/dL (0.6-1.3)
[2023-10-06] VITALS (12 sets, daily range): BP systolic 94–110; BP diastolic 64–67; TEMP 97.7–98.1; O2SAT 97–100
[2023-10-07] VITALS (14 sets, daily range): BP systolic 107–108; BP diastolic 68; TEMP 97.5–98.2; O2SAT 96–100
[2023-10-08] VITALS (13 sets, daily range): BP systolic 106–113; BP diastolic 56–58; TEMP 97.9–98.2; O2SAT 97–100
[2023-10-09] VITALS (12 sets, daily range): BP systolic 99–109; BP diastolic 67–74; TEMP 98.4–98.8; O2SAT 98–100
[2023-10-10] VITALS (12 sets, daily range): BP systolic 116–123; BP diastolic 80; TEMP 97.5–97.7; O2SAT 96–100
[2023-10-11] VITALS (14 sets, daily range): BP systolic 119–124; BP diastolic 78–83; TEMP 97.9–98.1; O2SAT 98–100
[2023-10-12] VITALS (14 sets, daily range): BP systolic 110–114; BP diastolic 72–75; TEMP 98.1; O2SAT 98–100
[2023-10-12 18:31] LABS: CREATININE 0.7 mg/dL (0.6-1.3)
[2023-10-13] VITALS (13 sets, daily range): BP systolic 108–116; BP diastolic 69–78; TEMP 98.1–98.2; O2SAT 97–100
[2023-10-14] VITALS (13 sets, daily range): BP systolic 98–106; BP diastolic 60–67; TEMP 97.2–97.7; O2SAT 98–100
[2023-10-15] VITALS (11 sets, daily range): BP systolic 122; BP diastolic 70; TEMP 98.6; O2SAT 98–100
[2023-10-16] VITALS (12 sets, daily range): BP systolic 119–127; BP diastolic 78–88; TEMP 97.9–98.4; O2SAT 97–100
[2023-10-16] MEDS: PETROLATUM,WHITE PACKET 5 GM PACKET TP SCH (21:39)
[2023-10-17] VITALS (13 sets, daily range): BP systolic 121–139; BP diastolic 75–82; TEMP 98.3–98.8; O2SAT 95–100
[2023-10-18] VITALS (13 sets, daily range): BP systolic 131; BP diastolic 76; TEMP 98.8; O2SAT 98–100
[2023-10-19] VITALS (14 sets, daily range): BP systolic 110–130; BP diastolic 69–88; TEMP 98.1; O2SAT 98–100
[2023-10-20] VITALS (12 sets, daily range): BP systolic 117–124; BP diastolic 76–89; TEMP 97.9–98.1; O2SAT 97–100
[2023-10-20] MEDS: TUBERCULIN,PURIF.PROT.DERIV. 5 TU/0.1 ML DISP.SYRIN ID SCH (08:31)
[2023-10-21] VITALS (13 sets, daily range): BP systolic 110–114; BP diastolic 64–72; TEMP 98–98.6; O2SAT 99–100
[2023-10-22] VITALS (15 sets, daily range): BP systolic 109–119; BP diastolic 54–83; TEMP 98.2–98.8; O2SAT 99–100
[2023-10-23] VITALS (16 sets, daily range): BP systolic 106–109; BP diastolic 69–82; TEMP 97.9–98.4; O2SAT 99–100
[2023-10-24] VITALS (12 sets, daily range): BP systolic 112–125; BP diastolic 53–76; TEMP 97.9–98.8; O2SAT 98–100
[2023-10-25] VITALS (13 sets, daily range): BP systolic 104–121; BP diastolic 73–88; TEMP 97.9–99.3; O2SAT 98–100
[2023-10-26] VITALS (13 sets, daily range): BP systolic 109–148; BP diastolic 67–69; TEMP 98.9–99.1; O2SAT 97–100
[2023-10-27] VITALS (15 sets, daily range): BP systolic 121; BP diastolic 62–74; TEMP 98.4–98.8; O2SAT 96–100
[2023-10-28] VITALS (16 sets, daily range): BP systolic 108–129; BP diastolic 57–64; TEMP 98.3–98.8; O2SAT 97–100
[2023-10-29] VITALS (15 sets, daily range): BP systolic 110; BP diastolic 58–63; TEMP 97.6–99; O2SAT 98–100
[2023-10-30] VITALS (14 sets, daily range): BP systolic 126–137; BP diastolic 68–86; TEMP 98–99.3; O2SAT 98–100
[2023-10-31] VITALS (13 sets, daily range): BP systolic 102–120; BP diastolic 67–90; TEMP 99.1–99.3; O2SAT 95–100
[2023-11-01] VITALS (13 sets, daily range): BP systolic 110–115; BP diastolic 57–77; TEMP 97.8–98.4; O2SAT 98–100
[2023-11-02] VITALS (12 sets, daily range): BP systolic 121–128; BP diastolic 76–79; TEMP 98–98.3; O2SAT 98–100
[2023-11-03] VITALS (13 sets, daily range): BP systolic 116–118; BP diastolic 58–62; TEMP 98–98.3; O2SAT 98–100
[2023-11-04] VITALS (10 sets, daily range): BP systolic 93; BP diastolic 73; TEMP 97.9; O2SAT 99–100
[2023-11-04] MEDS ORDERED: IPRA0.2S9 IH (20:19)
[2023-11-04] MEDS ORDERED: [UNRECOGNIZED DRUG - CODE] TP (20:19)
[2023-11-04] MEDS ORDERED: ONDA4TAB5 GT (20:19)
[2023-11-04] MEDS ORDERED: GUAI100S9 PO (20:19)
[2023-11-04] MEDS ORDERED: VITA113O5 TP (20:19)
== END 2023-11-04 19:28 | disposition short-term general hospital (02) | DRG 189 ==
LOC: SA → UNDOADMIN
PROVIDERS: ADMIT Internal Medicine; ATTEND Internal Medicine
PROC: 05HC33Z Insertion of Infusion Device into Left Basilic Vein, Percutaneous Approach (ICD-10-PCS; principal; 2023-09-11)
PROC: 05H933Z Insertion of Infusion Device into Right Brachial Vein, Percutaneous Approach (ICD-10-PCS; 2023-10-09)
DX: J96.11 Chronic respiratory failure with hypoxia (principal); I69.151 Hemiplegia and hemiparesis following nontraumatic intracerebral hemorrhage affecting right dominant side; G93.40 Encephalopathy, unspecified; L10.0 Pemphigus vulgaris; G81.91 Hemiplegia, unspecified affecting right dominant side; G40.909 Epilepsy, unspecified, not intractable, without status epilepticus; I10 Essential (primary) hypertension; R13.10 Dysphagia, unspecified; Z20.822 Contact with and (suspected) exposure to COVID-19; Z74.01 Bed confinement status; Z93.0 Tracheostomy status; Z93.1 Gastrostomy status; Z98.82 Breast implant status; Z87.440 Personal history of urinary (tract) infections; K21.9 Gastro-esophageal reflux disease without esophagitis; M19.90 Unspecified osteoarthritis, unspecified site
CPT/HCPCS: 31720; 36410; 36415; 80048-TC; 80202-TC; 82565-TC; 84520-TC; 85025-TC; 94640-TC; 94664-TC; 94760-TC; 94761-TC; 94799-TC; A4223; A4623; A7526; J1644; J3371; J7060

== ENCOUNTER 2023-11-04 19:28 | Inpatient (IN) | payer MEDICARE, OTHER ==
[~2023-11-04] VITALS: Ht 157.5 cm; Wt 60.8 kg
[2023-11-04 20:00] VITALS: BP 110/70; TEMP 97.7; O2SAT 95
[2023-11-04 20:14] VITALS: O2SAT 97
[2023-11-04] MEDS ORDERED: ONDA4TAB5 GT (20:19)
[2023-11-04] MEDS ORDERED: VITA113O5 TP (20:19)
[2023-11-04] MEDS ORDERED: [UNRECOGNIZED DRUG - CODE] TP (20:19)
[2023-11-04] MEDS ORDERED: GUAI100S9 PO (20:19)
[2023-11-04] MEDS ORDERED: IPRA0.2S9 IH (20:19)
[2023-11-04] MEDS ORDERED: ONDANSETRON HCL/PF 4 MG/2 ML VIAL IVP PRN (23:00)
[2023-11-04] MEDS ORDERED: Z GUARD REMEDY 4 OZ OINT TP PRN (23:00)
[2023-11-04] MEDS ORDERED: PETROLATUM,WHITE PACKET 5 GM PACKET TP SCH (23:00)
[2023-11-04] MEDS ORDERED: GUAIFENESIN 300 MG/15 ML UDC PO PRN (23:00)
[2023-11-04] MEDS ORDERED: MAGNESIUM HYDROXIDE 30 ML UDC GT PRN (23:00)
[2023-11-04 23:46] VITALS: O2SAT 96
[2023-11-04 23:48] VITALS: O2SAT 99
[2023-11-05] VITALS (14 sets, daily range): BP systolic 102–106; BP diastolic 61–86; TEMP 97.5–97.8; O2SAT 96–99
[2023-11-05] MEDS: IPRATROPIUM NEB FS 0.5 MG/2.5 ML AMPUL.NEB IH SCH (01:36)
[2023-11-05] MEDS: ALBUTEROL FS 2.5 MG/3 ML VIAL.NEB NEB SCH (01:36)
[2023-11-05] MEDS: JEVITY 1.2 CAL 1,000 ML BOTTLE GT SCH (05:55)
[2023-11-05] MEDS: CHLORHEXIDINE GLUCONATE 15 ML UDC MM SCH (06:00)
[2023-11-05 07:23] LABS: BASOPHILS % (AUTO) 0.6 % (0.0-2.0); EOSINOPHILS # (AUTO) 0.1 K/uL (0.0-0.7); EOSINOPHILS % (AUTO) 1.3 % (0.0-6.0); HEMATOCRIT 36 % (33-45); LYMPHOCYTES # (AUTO) 1.6 K/uL (0.8-4.8); LYMPHOCYTES % (AUTO) 31.2 % (20.0-44.0); MEAN CORPUSCULAR HEMOGLOBIN 30 PG (26.0-33.0); MEAN CORPUSCULAR HGB CONC 34 g/dl (31.0-36.0); MEAN CORPUSCULAR VOLUME 89 fL (82-100); MONOCYTES # (AUTO) 0.4 K/uL (0.1-1.30); MONOCYTES % (AUTO) 7.5 % (2.0-12.0); NEUTROPHILS # (AUTO) 3.1 K/uL (1.8-8.9); NEUTROPHILS % (AUTO) 59.4 % (43.0-81.0); PLATELET COUNT (AUTO) 223 K/uL (150-450); WHITE BLOOD COUNT (AUTO) 5.2 K/uL (4.3-11.0)
[2023-11-05 07:59] LABS: CALCIUM, SERUM 9.2 mg/dL (8.5-10.1); CREATININE 0.7 mg/dL (0.6-1.3); MAGNESIUM 2.2 mg/dL (1.8-2.4); PHOSPHORUS 3.9 mg/dL (2.5-4.9); POTASSIUM 3.9 mmol/L (3.5-5.1)
[2023-11-05] MEDS: SERTRALINE HCL 25 MG TABLET GT SCH (08:42)
[2023-11-05] MEDS: SENNOSIDES 8.6 MG TABLET GT SCH (08:42)
[2023-11-05] MEDS: MYCOPHENOLATE MOFETIL 250 MG CAPSULE PO SCH (08:42)
[2023-11-05] MEDS: FOLIC ACID 1 MG TABLET GT SCH (08:42)
[2023-11-05] MEDS: BACLOFEN (10 MG) 10 MG TABLET GT SCH (08:42)
[2023-11-05] MEDS: LEVETIRACETAM SOL (5 ML) 100 MG/ML UDC GT SCH (08:51)
[2023-11-05] MEDS: HEPARIN SODIUM, PORCINE 5000 UNITS/1 ML VIAL SQ SCH (09:00)
[2023-11-05] MEDS ORDERED: GUAIFENESIN 300 MG/15 ML UDC GT PRN (12:41)
[2023-11-05] MEDS: POLYETHYLENE GLYCOL 3350 17 GM POWD.PACK GT SCH (22:12)
[2023-11-06] VITALS (13 sets, daily range): BP systolic 111–120; BP diastolic 68–70; TEMP 98.4; O2SAT 97–100
[2023-11-06] MEDS: JEVITY 1.2 CAL 1,000 ML BOTTLE GT SCH (05:11)
[2023-11-07] VITALS (16 sets, daily range): BP systolic 119–125; BP diastolic 60–62; TEMP 98.2–98.6; O2SAT 97–100
[2023-11-08] VITALS (14 sets, daily range): BP systolic 114–123; BP diastolic 50–70; TEMP 97.8–98.4; O2SAT 98–100
[2023-11-09] VITALS (12 sets, daily range): BP systolic 119–141; BP diastolic 61–70; TEMP 97.7–99.8; O2SAT 97–100
[2023-11-09 07:25] LABS: CALCIUM, SERUM 8.7 mg/dL (8.5-10.1); CREATININE 0.7 mg/dL (0.6-1.3); PHOSPHORUS 3.9 mg/dL (2.5-4.9); POTASSIUM 4.2 mmol/L (3.5-5.1)
[2023-11-09 07:29] LABS: BASOPHILS % (AUTO) 0.3 % (0.0-2.0); EOSINOPHILS # (AUTO) 0.1 K/uL (0.0-0.7); EOSINOPHILS % (AUTO) 2.3 % (0.0-6.0); HEMATOCRIT 36 % (33-45); HEMOGLOBIN 12.3 g/dL (11.5-14.8); LYMPHOCYTES # (AUTO) 1.5 K/uL (0.8-4.8); LYMPHOCYTES % (AUTO) 23.3 % (20.0-44.0); MEAN CORPUSCULAR HEMOGLOBIN 30 PG (26.0-33.0); MEAN CORPUSCULAR HGB CONC 34 g/dl (31.0-36.0); MEAN CORPUSCULAR VOLUME 89 fL (82-100); MONOCYTES # (AUTO) 0.4 K/uL (0.1-1.30); MONOCYTES % (AUTO) 6.8 % (2.0-12.0); NEUTROPHILS # (AUTO) 4.3 K/uL (1.8-8.9); NEUTROPHILS % (AUTO) 67.3 % (43.0-81.0); PLATELET COUNT (AUTO) 236 K/uL (150-450); RED BLOOD CELL COUNT(AUTO) 4.11 MIL/uL (4.0-5.2); RED CELL DISTRIBUTION WIDTH 14.3 % (11.5-15.0); WHITE BLOOD COUNT (AUTO) 6.4 K/uL (4.3-11.0)
[2023-11-10] VITALS (14 sets, daily range): BP systolic 102–136; BP diastolic 49–80; TEMP 97.3–98.7; O2SAT 94–100
[2023-11-10 08:20] LABS: BASOPHILS % (AUTO) 0.4 % (0.0-2.0); EOSINOPHILS # (AUTO) 0.1 K/uL (0.0-0.7); EOSINOPHILS % (AUTO) 2.4 % (0.0-6.0); HEMATOCRIT 37 % (33-45); HEMOGLOBIN 12.4 g/dL (11.5-14.8); LYMPHOCYTES # (AUTO) 1.4 K/uL (0.8-4.8); LYMPHOCYTES % (AUTO) 23.7 % (20.0-44.0); MEAN CORPUSCULAR HEMOGLOBIN 30 PG (26.0-33.0); MEAN CORPUSCULAR HGB CONC 33 g/dl (31.0-36.0); MEAN CORPUSCULAR VOLUME 89 fL (82-100); MONOCYTES # (AUTO) 0.4 K/uL (0.1-1.30); MONOCYTES % (AUTO) 6.9 % (2.0-12.0); NEUTROPHILS % (AUTO) 66.6 % (43.0-81.0); PLATELET COUNT (AUTO) 228 K/uL (150-450); RED BLOOD CELL COUNT(AUTO) 4.19 MIL/uL (4.0-5.2); RED CELL DISTRIBUTION WIDTH 14.3 % (11.5-15.0)
[2023-11-10 10:40] LABS: CREATININE 0.7 mg/dL (0.6-1.3); PHOSPHORUS 3.8 mg/dL (2.5-4.9); POTASSIUM 4.6 mmol/L (3.5-5.1)
[2023-11-10 10:41] LABS: CALCIUM, SERUM 9.1 mg/dL (8.5-10.1)
[2023-11-11] VITALS (12 sets, daily range): O2SAT 92–100
[2023-11-11 06:57] LABS: BASOPHILS % (AUTO) 0.3 % (0.0-2.0); EOSINOPHILS # (AUTO) 0.2 K/uL (0.0-0.7); EOSINOPHILS % (AUTO) 2.5 % (0.0-6.0); HEMATOCRIT 37 % (33-45); HEMOGLOBIN 12.4 g/dL (11.5-14.8); LYMPHOCYTES # (AUTO) 1.6 K/uL (0.8-4.8); LYMPHOCYTES % (AUTO) 25.4 % (20.0-44.0); MEAN CORPUSCULAR HEMOGLOBIN 30 PG (26.0-33.0); MEAN CORPUSCULAR HGB CONC 34 g/dl (31.0-36.0); MEAN CORPUSCULAR VOLUME 89 fL (82-100); MONOCYTES # (AUTO) 0.5 K/uL (0.1-1.30); MONOCYTES % (AUTO) 7.8 % (2.0-12.0); PLATELET COUNT (AUTO) 223 K/uL (150-450); RED BLOOD CELL COUNT(AUTO) 4.17 MIL/uL (4.0-5.2); WHITE BLOOD COUNT (AUTO) 6.3 K/uL (4.3-11.0)
[2023-11-11 07:20] LABS: CALCIUM, SERUM 8.7 mg/dL (8.5-10.1); CREATININE 0.7 mg/dL (0.6-1.3); PHOSPHORUS 4.2 mg/dL (2.5-4.9); POTASSIUM 4.4 mmol/L (3.5-5.1)
[2023-11-12] VITALS (15 sets, daily range): BP systolic 110–118; BP diastolic 44–60; TEMP 97.6–98.2; O2SAT 96–100
[2023-11-13] VITALS (17 sets, daily range): BP systolic 111–118; BP diastolic 47–58; TEMP 96.7–98.4; O2SAT 97–100
[2023-11-14] VITALS (15 sets, daily range): BP systolic 112–130; BP diastolic 53–116; TEMP 97.9–100.9; O2SAT 97–100
[2023-11-14] MEDS: ACETAMINOPHEN 325 MG TABLET MC PRN (09:12)
[2023-11-15] VITALS (14 sets, daily range): BP systolic 119–124; BP diastolic 54–68; TEMP 98.2–98.4; O2SAT 98–100
[2023-11-16] VITALS (10 sets, daily range): BP systolic 108; BP diastolic 50; TEMP 98.7; O2SAT 98–100
== END 2023-11-16 16:30 | DRG 92 ==
LOC: MED 19:28
PROVIDERS: ADMIT Nurse Practitioner Acute Care; ATTEND Nurse Practitioner Family
DX: T85.695A Other mechanical complication of other nervous system device, implant or graft, initial encounter (principal); E87.1 Hypo-osmolality and hyponatremia; J96.10 Chronic respiratory failure, unspecified whether with hypoxia or hypercapnia; K31.6 Fistula of stomach and duodenum; Z99.11 Dependence on respirator [ventilator] status; G93.49 Other encephalopathy; I69.151 Hemiplegia and hemiparesis following nontraumatic intracerebral hemorrhage affecting right dominant side; I10 Essential (primary) hypertension; G40.909 Epilepsy, unspecified, not intractable, without status epilepticus; R13.10 Dysphagia, unspecified; Z93.0 Tracheostomy status; Z93.1 Gastrostomy status; Y83.8 Other surgical procedures as the cause of abnormal reaction of the patient, or of later complication, without mention of misadventure at the time of the procedure; Y92.129 Unspecified place in nursing home as the place of occurrence of the external cause; L10.0 Pemphigus vulgaris
CPT/HCPCS: 31720; 36415; 71045-TC; 80048-TC; 82962-TC; 83735-TC; 84100-TC; 85025-TC; 94640-TC; 94760-TC; 94761-TC; 94799-TC; A4623; A6403; G0378; J1644; J1953; J7517

== ENCOUNTER 2023-11-16 15:23 | Inpatient (IN) | payer MEDICARE, OTHER ==
[~2023-11-16] VITALS: Ht 157.5 cm; Wt 60.3 kg
[~2023-11-16 15:23] MED LIST changes: +GUAI100S9 PO; +IPRA0.2S9 IH; +ONDA4TAB5 GT; +VITA113O5 TP; +[UNRECOGNIZED DRUG - CODE] TP
[2023-11-16 16:45] VITALS: O2SAT 98
[2023-11-16 16:50] VITALS: BP 111/69; TEMP 98.1; O2SAT 100
[2023-11-16] MEDS ORDERED: ONDANSETRON HCL 4 MG/5 ML SOLUTION GT PRN (19:27)
[2023-11-16] MEDS ORDERED: ALBUTEROL FS 2.5 MG/3 ML VIAL.NEB NEB PRN (19:27)
[2023-11-16] MEDS ORDERED: TUBERCULIN,PURIF.PROT.DERIV. 5 TU/0.1 ML DISP.SYRIN ID SCH (19:27)
[2023-11-16] MEDS ORDERED: POLYVINYL ALCOHOL 15 ML BOTTLE EACHEYE SCH (19:27)
[2023-11-16] MEDS ORDERED: VITAMINS A AND D 56.7 GM TUBE TP SCH ×2 (19:27→21:00)
[2023-11-16] MEDS ORDERED: HYDROGEN PEROXIDE 480 ML BOTTLE TP PRN (19:27)
[2023-11-16] MEDS ORDERED: HEPARIN SODIUM, PORCINE 5000 UNITS/1 ML VIAL SQ SCH (19:27)
[2023-11-16 20:05] VITALS: O2SAT 97
[2023-11-16] MEDS: IPRATROPIUM NEB FS 0.5 MG/2.5 ML AMPUL.NEB NEB SCH (20:08)
[2023-11-16] MEDS: ALBUTEROL FS 2.5 MG/0.5 ML VIAL.NEB NEB SCH (20:08)
[2023-11-16] MEDS: HYDROGEN PEROXIDE 480 ML BOTTLE TP SCH (20:08)
[2023-11-16 20:15] VITALS: O2SAT 98
[2023-11-16 20:16] VITALS: O2SAT 98
[2023-11-16] MEDS: HEPARIN SODIUM, PORCINE 5000 UNITS/1 ML VIAL SQ SCH (20:53)
[2023-11-16] MEDS: PETROLATUM,WHITE PACKET 5 GM PACKET TP SCH (20:53)
[2023-11-17] VITALS (16 sets, daily range): BP systolic 115–128; BP diastolic 55–94; TEMP 97.7–98; O2SAT 98–100
[2023-11-17] MEDS: CHLORHEXIDINE GLUCONATE 15 ML UDC MM SCH (05:19)
[2023-11-17] MEDS ORDERED: TUBERCULIN,PURIF.PROT.DERIV. 5 TU/0.1 ML VIAL ID ONE (09:00)
[2023-11-17] MEDS: FOLIC ACID 1 MG TABLET GT SCH (09:00)
[2023-11-17] MEDS: SENNOSIDES 8.6 MG TABLET GT SCH (09:00)
[2023-11-17] MEDS: BACLOFEN (10 MG) 10 MG TABLET GT SCH (09:00)
[2023-11-17] MEDS: ZINC OXIDE 30 GM TUBE TP SCH ×3 (09:00)
[2023-11-17] MEDS: VITS A AND D/WHITE PET/LANOLIN 5 GM PACKET TP SCH ×2 (09:00)
[2023-11-17] MEDS: JEVITY 1.2 CAL 1,000 ML BOTTLE GT PRN (14:46)
[2023-11-17] MEDS: POLYVINYL ALCOHOL 15 ML BOTTLE EACHEYE SCH (19:06)
[2023-11-18] VITALS (14 sets, daily range): BP systolic 120; BP diastolic 68; TEMP 97.3; O2SAT 97–100
[2023-11-19] VITALS (16 sets, daily range): BP systolic 90–121; BP diastolic 69–87; TEMP 98.8–99.3; O2SAT 98–100
[2023-11-19] MEDS: GUAIFENESIN 300 MG/15 ML UDC GT PRN (20:40)
[2023-11-20] VITALS (17 sets, daily range): BP systolic 106–107; BP diastolic 64–78; TEMP 98.6–99.1; O2SAT 98–100
[2023-11-21] VITALS (14 sets, daily range): BP systolic 111–121; BP diastolic 50–73; TEMP 98.8; O2SAT 97–100
[2023-11-22] VITALS (13 sets, daily range): BP systolic 113–120; BP diastolic 52–83; TEMP 98.2–98.6; O2SAT 98–100
[2023-11-23] VITALS (14 sets, daily range): BP systolic 112; BP diastolic 82; TEMP 98.2; O2SAT 98–100
[2023-11-24] VITALS (14 sets, daily range): BP systolic 113–131; BP diastolic 68–79; TEMP 97.9–98.6; O2SAT 98–100
[2023-11-25] VITALS (12 sets, daily range): BP systolic 119–133; BP diastolic 59–66; TEMP 98.1–98.4; O2SAT 98–100
[2023-11-26] VITALS (13 sets, daily range): BP systolic 100–115; BP diastolic 58–62; TEMP 98.2–98.8; O2SAT 98–100
[2023-11-27] VITALS (15 sets, daily range): BP systolic 117–120; BP diastolic 52–59; TEMP 97.7–98.6; O2SAT 96–99
[2023-11-28] VITALS (13 sets, daily range): BP systolic 99–137; BP diastolic 51–79; TEMP 98–98.1; O2SAT 98–100
[2023-11-29] VITALS (14 sets, daily range): BP systolic 116–124; BP diastolic 71–74; TEMP 97.8–98.4; O2SAT 95–100
[2023-11-30] VITALS (13 sets, daily range): BP systolic 116; BP diastolic 56–82; TEMP 97.9–98.4; O2SAT 98–100
[2023-12-01] VITALS (12 sets, daily range): BP systolic 107–110; BP diastolic 56–59; TEMP 98.6; O2SAT 98–100
[2023-12-02] VITALS (14 sets, daily range): BP systolic 108–112; BP diastolic 74–80; TEMP 98.3–99; O2SAT 97–100
[2023-12-03] VITALS (13 sets, daily range): BP systolic 106–113; BP diastolic 62–66; TEMP 98.8–100; O2SAT 97–99
[2023-12-04] VITALS (14 sets, daily range): BP systolic 111–116; BP diastolic 59; TEMP 98.4; O2SAT 98–100
[2023-12-05] VITALS (12 sets, daily range): BP systolic 108–112; BP diastolic 61–71; TEMP 97.9–98.4; O2SAT 96–100
[2023-12-06] VITALS (12 sets, daily range): BP systolic 109–124; BP diastolic 56–86; TEMP 98.1–99.1; O2SAT 100
[2023-12-07] VITALS (13 sets, daily range): BP systolic 101–125; BP diastolic 59–75; TEMP 98.2–99; O2SAT 99–100
[2023-12-08] VITALS (14 sets, daily range): BP systolic 102–118; BP diastolic 57–89; TEMP 98–98.3; O2SAT 96–100
[2023-12-09] VITALS (13 sets, daily range): BP systolic 109–112; BP diastolic 64–78; TEMP 97.9–99.3; O2SAT 98–100
[2023-12-09] MEDS: PNEUMOC 20-VAL CONJ-DIP CRM/PF 0.5 ML SYRINGE IM ONE (09:00)
[2023-12-10] VITALS (16 sets, daily range): BP systolic 107–123; BP diastolic 70–77; TEMP 97.3–98.2; O2SAT 97–100
[2023-12-11] VITALS (13 sets, daily range): BP systolic 106–107; BP diastolic 55–66; TEMP 98.1–98.3; O2SAT 97–100
[2023-12-12] VITALS (14 sets, daily range): BP systolic 108; BP diastolic 60–66; TEMP 98–98.6; O2SAT 97–99
[2023-12-13] VITALS (13 sets, daily range): BP systolic 11–124; BP diastolic 69–72; TEMP 97.3–99; O2SAT 96–99
[2023-12-14] VITALS (12 sets, daily range): BP systolic 117–118; BP diastolic 70–75; TEMP 98–98.8; O2SAT 96–100
[2023-12-14] MEDS: MAGNESIUM HYDROXIDE 30 ML UDC GT PRN (17:33)
[2023-12-15] VITALS (13 sets, daily range): BP systolic 102–115; BP diastolic 60–76; TEMP 98.1–98.5; O2SAT 97–100
[2023-12-16] VITALS (12 sets, daily range): BP systolic 103–108; BP diastolic 61–66; TEMP 97.9–98.2; O2SAT 97–99
[2023-12-17] VITALS (13 sets, daily range): BP systolic 96–100; BP diastolic 59–96; TEMP 98–98.8; O2SAT 18–100
[2023-12-17] MEDS: VITS A AND D/WHITE PET/LANOLIN 5 GM PACKET TP SCH (09:29)
[2023-12-18] VITALS (11 sets, daily range): BP systolic 109–117; BP diastolic 67–83; TEMP 97.8–98; O2SAT 98–100
[2023-12-19] VITALS (13 sets, daily range): BP systolic 125–137; BP diastolic 76; TEMP 99; O2SAT 98–100
[2023-12-19] MEDS: ZINC OXIDE 56.7 GM TUBE TP SCH (09:27)
[2023-12-20] VITALS (12 sets, daily range): BP systolic 102–122; BP diastolic 72–84; TEMP 98.4–98.6; O2SAT 98–100
[2023-12-21] VITALS (12 sets, daily range): BP systolic 118–121; BP diastolic 73–83; TEMP 97.9–98.2; O2SAT 96–100
[2023-12-22] VITALS (13 sets, daily range): BP systolic 113–123; BP diastolic 82–84; TEMP 98.1–98.5; O2SAT 94–100
[2023-12-23] VITALS (11 sets, daily range): BP systolic 117; BP diastolic 63; TEMP 98.8; O2SAT 99–100
[2023-12-24] VITALS (12 sets, daily range): BP systolic 112–123; BP diastolic 64–65; TEMP 97.8–98.2; O2SAT 98–100
[2023-12-25] VITALS (12 sets, daily range): BP systolic 101–120; BP diastolic 58–70; TEMP 98.2–98.8; O2SAT 97–100
[2023-12-26] VITALS (12 sets, daily range): BP systolic 110; BP diastolic 55; TEMP 97.9; O2SAT 96–100
[2023-12-27] VITALS (13 sets, daily range): BP systolic 113–123; BP diastolic 75–79; TEMP 97.4–98.4; O2SAT 95–100
[2023-12-28] VITALS (13 sets, daily range): BP systolic 99–118; BP diastolic 76–84; TEMP 97.2–99.1; O2SAT 98–100
[2023-12-29] VITALS (12 sets, daily range): BP systolic 117–123; BP diastolic 70–80; TEMP 98.1–99; O2SAT 98–100
[2023-12-30] VITALS (12 sets, daily range): BP systolic 103–105; BP diastolic 58–59; TEMP 97.9–98.3; O2SAT 97–100
[2023-12-30] MEDS: ACETAMINOPHEN 650 MG/20 ML UDC- SA PATIENTS-PAIN ONLY GT PRN (10:32)
[2023-12-31] VITALS (13 sets, daily range): BP systolic 98–119; BP diastolic 57–72; TEMP 98.2–98.4; O2SAT 98–100
[2024-01-01] VITALS (11 sets, daily range): BP systolic 125; BP diastolic 74; TEMP 98.1; O2SAT 98–100
[2024-01-02] VITALS (14 sets, daily range): BP systolic 115–128; BP diastolic 72–83; TEMP 98.2–99.1; O2SAT 98–100
[2024-01-03] VITALS (12 sets, daily range): BP systolic 112–113; BP diastolic 61–67; TEMP 98.2–99; O2SAT 97–100
[2024-01-04] VITALS (12 sets, daily range): BP systolic 113–116; BP diastolic 62–79; TEMP 98–98.4; O2SAT 98–100
[2024-01-05] VITALS (11 sets, daily range): BP systolic 105; BP diastolic 62; TEMP 98.8; O2SAT 98–100
[2024-01-06] VITALS (12 sets, daily range): BP systolic 101; BP diastolic 76; TEMP 98.8; O2SAT 98–100
[2024-01-07] VITALS (13 sets, daily range): BP systolic 105–126; BP diastolic 59–83; TEMP 98.6–99.3; O2SAT 96–100
[2024-01-08] VITALS (15 sets, daily range): BP systolic 113–126; BP diastolic 65–77; TEMP 97.8–98.2; O2SAT 97–100
[2024-01-09] VITALS (14 sets, daily range): BP systolic 106–116; BP diastolic 76–82; TEMP 98.8–99; O2SAT 98–100
[2024-01-10] VITALS (13 sets, daily range): BP systolic 108–127; BP diastolic 68–81; TEMP 97–98.2; O2SAT 98–100
[2024-01-11] VITALS (12 sets, daily range): BP systolic 107–111; BP diastolic 51–72; TEMP 97.4–98; O2SAT 98–100
[2024-01-12] VITALS (12 sets, daily range): BP systolic 112–115; BP diastolic 68–89; TEMP 98.6–98.8; O2SAT 98–100
[2024-01-13] VITALS (13 sets, daily range): BP systolic 101–129; BP diastolic 69–72; TEMP 98.1–98.8; O2SAT 98–100
[2024-01-14] VITALS (15 sets, daily range): BP systolic 109–122; BP diastolic 56–59; TEMP 98.3–99.1; O2SAT 94–100
[2024-01-15] VITALS (14 sets, daily range): BP systolic 101–116; BP diastolic 61–74; TEMP 98.1–99; O2SAT 96–99
[2024-01-16] VITALS (12 sets, daily range): BP systolic 105–114; BP diastolic 70–72; TEMP 98.1–98.8; O2SAT 97–100
[2024-01-17] VITALS (14 sets, daily range): BP systolic 101–113; BP diastolic 73–74; TEMP 98.2–98.3; O2SAT 96–99
[2024-01-18] VITALS (12 sets, daily range): BP systolic 109–123; BP diastolic 69–72; TEMP 97.8–98.6; O2SAT 98–100
[2024-01-19] VITALS (12 sets, daily range): BP systolic 107–114; BP diastolic 67–70; TEMP 98.4–99; O2SAT 96–100
[2024-01-20] VITALS (12 sets, daily range): BP systolic 110–125; BP diastolic 55–82; TEMP 98.7–98.8; O2SAT 97–100
[2024-01-21] VITALS (12 sets, daily range): BP systolic 118–122; BP diastolic 67–89; TEMP 98.2–98.4; O2SAT 97–99
[2024-01-22] VITALS (12 sets, daily range): BP systolic 110–111; BP diastolic 64–74; TEMP 98.6–99.1; O2SAT 97–100
[2024-01-23] VITALS (12 sets, daily range): BP systolic 103–122; BP diastolic 51–75; TEMP 97.9–98.4; O2SAT 98–100
[2024-01-24] VITALS (12 sets, daily range): BP systolic 109; BP diastolic 78; TEMP 98.8; O2SAT 98–100
[2024-01-25] VITALS (13 sets, daily range): BP systolic 109–113; BP diastolic 73; TEMP 98.1–98.8; O2SAT 98–100
[2024-01-25] MEDS: NYSTATIN TOP POWDER 15 GM BOTTLE TP SCH (20:12)
[2024-01-26] VITALS (12 sets, daily range): BP systolic 111–121; BP diastolic 73–77; TEMP 98.1–99; O2SAT 98–100
[2024-01-27] VITALS (11 sets, daily range): BP systolic 108; BP diastolic 63; TEMP 98.8; O2SAT 97–100
[2024-01-28] VITALS (13 sets, daily range): BP systolic 108; BP diastolic 63–77; TEMP 98–99.5; O2SAT 96–100
[2024-01-29] VITALS (12 sets, daily range): BP systolic 97–104; BP diastolic 57–79; TEMP 98.4–98.6; O2SAT 98–100
[2024-01-29] MEDS: PETROLATUM,WHITE PACKET 5 GM PACKET TP SCH (08:54)
[2024-01-30] VITALS (12 sets, daily range): BP systolic 103–108; BP diastolic 66–72; TEMP 98–98.4; O2SAT 98–100
[2024-01-31] VITALS (12 sets, daily range): BP systolic 116–147; BP diastolic 62–67; TEMP 99.1–99.5; O2SAT 98–100
[2024-02-01] VITALS (13 sets, daily range): BP systolic 102–112; BP diastolic 60–79; TEMP 98.4–99.1; O2SAT 98–100
[2024-02-02] VITALS (11 sets, daily range): BP systolic 105–108; BP diastolic 59–69; TEMP 97.5–97.9; O2SAT 98–100
[2024-02-03] VITALS (13 sets, daily range): BP systolic 115–118; BP diastolic 55–87; TEMP 97.7–98.1; O2SAT 98–100
[2024-02-04] VITALS (10 sets, daily range): BP systolic 135; BP diastolic 66; TEMP 98.8; O2SAT 98–100
[2024-02-05] VITALS (12 sets, daily range): BP systolic 99–115; BP diastolic 58–74; TEMP 98.2–98.8; O2SAT 98–100
[2024-02-06] VITALS (13 sets, daily range): BP systolic 105–112; BP diastolic 61–70; TEMP 98.1–98.2; O2SAT 98–100
[2024-02-07] VITALS (13 sets, daily range): BP systolic 120–124; BP diastolic 53–56; TEMP 98.2–98.8; O2SAT 98–100
[2024-02-08] VITALS (13 sets, daily range): BP systolic 108–116; BP diastolic 59–75; TEMP 99–99.7; O2SAT 97–100
[2024-02-09] VITALS (12 sets, daily range): BP systolic 108–113; BP diastolic 74–79; TEMP 98.8–99.3; O2SAT 98–100
[2024-02-10] VITALS (12 sets, daily range): BP systolic 115–128; BP diastolic 66–68; TEMP 97.9–99.2; O2SAT 98–100
[2024-02-11] VITALS (12 sets, daily range): BP systolic 96–111; BP diastolic 66–84; TEMP 98.2–99.5; O2SAT 98–100
[2024-02-12] VITALS (11 sets, daily range): BP systolic 102–107; BP diastolic 62–76; TEMP 98.8–99; O2SAT 98–100
[2024-02-13] VITALS (13 sets, daily range): BP systolic 125–129; BP diastolic 69–78; TEMP 98.4–98.8; O2SAT 98–100
[2024-02-14] VITALS (13 sets, daily range): BP systolic 118–119; BP diastolic 60–83; TEMP 98.1–99; O2SAT 98–100
[2024-02-15] VITALS (13 sets, daily range): BP systolic 100–117; BP diastolic 62–73; TEMP 98.1–98.6; O2SAT 98–100
[2024-02-16] VITALS (12 sets, daily range): BP systolic 115–121; BP diastolic 84–89; TEMP 97.6–98; O2SAT 98–100
[2024-02-16] MEDS ORDERED: DIATR MEGLU/DIATRIZOATE SODIUM 30 ML BOTTLE (GASTROGRAPHIN) ONE (13:34)
[2024-02-17] VITALS (12 sets, daily range): BP systolic 111–121; BP diastolic 70–71; TEMP 98–98.2; O2SAT 98–100
[2024-02-18] VITALS (14 sets, daily range): BP systolic 103–122; BP diastolic 55–69; TEMP 97.3–99; O2SAT 95–100
[2024-02-19] VITALS (14 sets, daily range): BP systolic 106–112; BP diastolic 65–81; TEMP 98.4–99.5; O2SAT 97–100
[2024-02-20] VITALS (12 sets, daily range): BP systolic 116; BP diastolic 70; TEMP 98.6; O2SAT 97–100
[2024-02-21] VITALS (11 sets, daily range): BP systolic 100–121; BP diastolic 62–76; TEMP 98.8; O2SAT 98–100
[2024-02-22] VITALS (13 sets, daily range): BP systolic 104–125; BP diastolic 55–72; TEMP 97.1–97.6; O2SAT 98–100
[2024-02-23] VITALS (12 sets, daily range): BP systolic 117–119; BP diastolic 74–76; TEMP 98.2–98.3; O2SAT 98–100
[2024-02-24] VITALS (14 sets, daily range): BP systolic 107–121; BP diastolic 58–74; TEMP 97.3–98.1; O2SAT 94–100
[2024-02-25] VITALS (13 sets, daily range): BP systolic 109–111; BP diastolic 56–57; TEMP 98.2–99.7; O2SAT 97–100
[2024-02-26] VITALS (13 sets, daily range): BP systolic 91–107; BP diastolic 60–64; TEMP 98.2; O2SAT 98–100
[2024-02-27] VITALS (12 sets, daily range): BP systolic 108–115; BP diastolic 61–64; TEMP 97.7–98.3; O2SAT 98–100
[2024-02-28] VITALS (12 sets, daily range): BP systolic 103; BP diastolic 67–86; TEMP 98.4–99.1; O2SAT 94–100
[2024-02-29] VITALS (12 sets, daily range): BP systolic 94–105; BP diastolic 61–74; TEMP 98.2–98.6; O2SAT 98–100
[2024-03-01] VITALS (12 sets, daily range): BP systolic 108–121; BP diastolic 56–60; TEMP 97.3–98.3; O2SAT 97–100
[2024-03-02] VITALS (11 sets, daily range): BP systolic 102; BP diastolic 69; TEMP 98.4; O2SAT 95–100
[2024-03-03] VITALS (13 sets, daily range): BP systolic 105–115; BP diastolic 62–63; TEMP 97.6–98.8; O2SAT 97–100
[2024-03-04] VITALS (13 sets, daily range): BP systolic 108–113; BP diastolic 65–66; TEMP 98.2–98.4; O2SAT 97–100
[2024-03-05] VITALS (14 sets, daily range): BP systolic 109–110; BP diastolic 60–69; TEMP 97.7–97.9; O2SAT 97–99
[2024-03-06] VITALS (13 sets, daily range): BP systolic 114–121; BP diastolic 72–78; TEMP 96.9–99.1; O2SAT 98–100
[2024-03-07] VITALS (13 sets, daily range): BP systolic 101–112; BP diastolic 71–83; TEMP 97.7–99.3; O2SAT 98–100
[2024-03-08] VITALS (11 sets, daily range): BP systolic 106–109; BP diastolic 60–68; TEMP 97.2–99; O2SAT 98–100
[2024-03-09] VITALS (13 sets, daily range): BP systolic 107–109; BP diastolic 57–65; TEMP 97.9–98.6; O2SAT 97–100
[2024-03-10] VITALS (13 sets, daily range): BP systolic 114–116; BP diastolic 60–65; TEMP 97.7–98.9; O2SAT 96–100
[2024-03-10] MEDS: NYSTATIN TOP POWDER 15 GM BOTTLE TP SCH (21:57)
[2024-03-11] VITALS (12 sets, daily range): BP systolic 107–135; BP diastolic 70–71; TEMP 97.6–99.9; O2SAT 98–100
[2024-03-12] VITALS (13 sets, daily range): BP systolic 96–119; BP diastolic 68–70; TEMP 97.8–97.9; O2SAT 97–100
[2024-03-13] VITALS (12 sets, daily range): BP systolic 113–114; BP diastolic 74–80; TEMP 98.2–98.8; O2SAT 97–100
[2024-03-14] VITALS (13 sets, daily range): BP systolic 103–127; BP diastolic 64–77; TEMP 98.6–99; O2SAT 98–100
[2024-03-15] VITALS (15 sets, daily range): BP systolic 115–135; BP diastolic 69–73; TEMP 98.6–99.3; O2SAT 99–100
[2024-03-16] VITALS (11 sets, daily range): BP systolic 105–107; BP diastolic 73–77; TEMP 97.8–98.9; O2SAT 98–100
[2024-03-17] VITALS (12 sets, daily range): BP systolic 101–114; BP diastolic 68–69; TEMP 98.4–99.8; O2SAT 98–100
[2024-03-17] MEDS: PETROLATUM,WHITE PACKET 5 GM PACKET TP SCH (09:00)
[2024-03-18] VITALS (14 sets, daily range): BP systolic 107–108; BP diastolic 56–58; TEMP 98.6–99.5; O2SAT 97–99
[2024-03-18 07:18] LABS: BASOPHILS % (AUTO) 0.3 % (0.0-2.0); EOSINOPHILS # (AUTO) 0.1 K/uL (0.0-0.7); EOSINOPHILS % (AUTO) 0.8 % (0.0-6.0); HEMATOCRIT 30 % (33-45); HEMOGLOBIN 9.8 g/dL (11.5-14.8); LYMPHOCYTES # (AUTO) 1.5 K/uL (0.8-4.8); LYMPHOCYTES % (AUTO) 23.2 % (20.0-44.0); MEAN CORPUSCULAR HEMOGLOBIN 27 PG (26.0-33.0); MEAN CORPUSCULAR HGB CONC 32 g/dl (31.0-36.0); MEAN CORPUSCULAR VOLUME 84 fL (82-100); MONOCYTES # (AUTO) 0.7 K/uL (0.1-1.30); MONOCYTES % (AUTO) 10.8 % (2.0-12.0); NEUTROPHILS # (AUTO) 4.2 K/uL (1.8-8.9); NEUTROPHILS % (AUTO) 64.9 % (43.0-81.0); PLATELET COUNT (AUTO) 272 K/uL (150-450); RED BLOOD CELL COUNT(AUTO) 3.59 MIL/uL (4.0-5.2); RED CELL DISTRIBUTION WIDTH 16.2 % (11.5-15.0); WHITE BLOOD COUNT (AUTO) 6.5 K/uL (4.3-11.0)
[2024-03-18 08:06] LABS: CALCIUM, SERUM 9.1 mg/dL (8.5-10.1); CREATININE 0.6 mg/dL (0.6-1.3); POTASSIUM 4.7 mmol/L (3.5-5.1)
[2024-03-19] VITALS (13 sets, daily range): BP systolic 105; BP diastolic 79; TEMP 98.6; O2SAT 98–100
[2024-03-20] VITALS (12 sets, daily range): O2SAT 98–100
[2024-03-21] VITALS (13 sets, daily range): BP systolic 102–124; BP diastolic 63–87; TEMP 98.4–99; O2SAT 98–100
[2024-03-22] VITALS (13 sets, daily range): BP systolic 105–114; BP diastolic 60–65; TEMP 98.4–99; O2SAT 98–100
[2024-03-23] VITALS (12 sets, daily range): BP systolic 109–118; BP diastolic 64–69; TEMP 97.9–99; O2SAT 98–100
[2024-03-23] MEDS: HEPARIN SODIUM, PORCINE 5000 UNITS/1 ML VIAL SQ SCH (21:19)
[2024-03-24] VITALS (13 sets, daily range): BP systolic 104–108; BP diastolic 67–73; TEMP 98.4–98.6; O2SAT 98–99
[2024-03-25] VITALS (11 sets, daily range): BP systolic 111; BP diastolic 67; TEMP 98; O2SAT 99–100
[2024-03-26] VITALS (13 sets, daily range): BP systolic 105–112; BP diastolic 65–69; TEMP 97.2–98.6; O2SAT 96–100
[2024-03-26 12:39] LABS: CALCIUM, SERUM 9.3 mg/dL (8.5-10.1); CREATININE 0.7 mg/dL (0.6-1.3); POTASSIUM 5.2 mmol/L (3.5-5.1)
[2024-03-27] VITALS (12 sets, daily range): BP systolic 109–119; BP diastolic 76–89; TEMP 97.2–99.7; O2SAT 98–100
[2024-03-28] VITALS (11 sets, daily range): BP systolic 102–107; BP diastolic 66–74; TEMP 97.9–98.3; O2SAT 98–100
[2024-03-29] VITALS (13 sets, daily range): BP systolic 108–129; BP diastolic 62–73; TEMP 97.7–98; O2SAT 98–100
[2024-03-30] VITALS (12 sets, daily range): BP systolic 100–119; BP diastolic 60–71; TEMP 98.1–98.7; O2SAT 98–100
[2024-03-31] VITALS (12 sets, daily range): BP systolic 113–132; BP diastolic 61–84; TEMP 97.5–98.4; O2SAT 98–99
[2024-04-01] VITALS (11 sets, daily range): BP systolic 107; BP diastolic 73; TEMP 97.7; O2SAT 98–99
[2024-04-02] VITALS (11 sets, daily range): BP systolic 102–115; BP diastolic 55–77; TEMP 97.7–98.8; O2SAT 98–100
[2024-04-02] MEDS: ZINC OXIDE 56.7 GM TUBE TP SCH (09:00)
[2024-04-03] VITALS (11 sets, daily range): BP systolic 103–125; BP diastolic 68–84; TEMP 97.7–98; O2SAT 98–100
[2024-04-04] VITALS (11 sets, daily range): BP systolic 131–132; BP diastolic 67–93; TEMP 98.4–98.6; O2SAT 98–99
[2024-04-05] VITALS (9 sets, daily range): BP systolic 112–120; BP diastolic 71–78; TEMP 98.2–98.4; O2SAT 98–100
[2024-04-05 08:11] LABS: IRON, SERUM 20 ug/dl (50-175); TOTAL IRON BINDING CAPACITY 203 ug/dl (250-450)
[2024-04-06] VITALS (12 sets, daily range): BP systolic 126; BP diastolic 71; TEMP 98; O2SAT 98–100
[2024-04-07] VITALS (12 sets, daily range): BP systolic 109–111; BP diastolic 56–77; TEMP 98.4–98.9; O2SAT 97–100
[2024-04-08] VITALS (12 sets, daily range): BP systolic 106–114; BP diastolic 68–73; TEMP 97.2–98; O2SAT 99–100
[2024-04-09] VITALS (12 sets, daily range): BP systolic 108–123; BP diastolic 68–87; TEMP 97.2–98.5; O2SAT 98–100
[2024-04-09] MEDS ORDERED: FERRIC CARBOXYMALTOSE IV ONE (10:30)
[2024-04-09] MEDS: FERRLICET 125MG in 100 ML NS IVPB IV SCH (17:26)
[2024-04-10] VITALS (12 sets, daily range): BP systolic 108–116; BP diastolic 60–79; TEMP 97–98.8; O2SAT 98–100
[2024-04-11] VITALS (11 sets, daily range): BP systolic 107–108; BP diastolic 56–66; TEMP 97.3–100.2; O2SAT 97–100
[2024-04-12] VITALS (12 sets, daily range): BP systolic 100–110; BP diastolic 63–73; TEMP 98.8–99; O2SAT 97–100
[2024-04-13] VITALS (13 sets, daily range): BP systolic 109–121; BP diastolic 65–72; TEMP 97.8–98.8; O2SAT 99–100
[2024-04-13] MEDS: Z GUARD REMEDY 4 OZ OINT TP SCH (21:27)
[2024-04-14] VITALS (14 sets, daily range): BP systolic 100–117; BP diastolic 55–82; TEMP 97.6–98.9; O2SAT 97–100
[2024-04-15] VITALS (13 sets, daily range): BP systolic 106–112; BP diastolic 61–67; TEMP 98.6–98.8; O2SAT 96–100
[2024-04-16] VITALS (14 sets, daily range): BP systolic 103–125; BP diastolic 67–78; TEMP 98.1; O2SAT 98–100
[2024-04-17] VITALS (12 sets, daily range): BP systolic 120; BP diastolic 74–90; TEMP 98–99.1; O2SAT 98–100
[2024-04-18] VITALS (12 sets, daily range): BP systolic 111; BP diastolic 81; TEMP 99.3; O2SAT 96–100
[2024-04-19] VITALS (13 sets, daily range): BP systolic 117–124; BP diastolic 60–83; TEMP 97.2–99; O2SAT 98–100
[2024-04-19] MEDS: COVID-19 VACC, SPIKEVAX /PF 50 MCG/0.5 ML VIAL/SYR IM ONE (16:58)
[2024-04-20] VITALS (13 sets, daily range): BP systolic 90–106; BP diastolic 67–70; TEMP 97.1–98.4; O2SAT 97–100
[2024-04-21] VITALS (12 sets, daily range): BP systolic 110–118; BP diastolic 75–76; TEMP 98.2–98.6; O2SAT 96–100
[2024-04-21] MEDS: NYSTATIN TOP POWDER 15 GM BOTTLE TP SCH (20:28)
[2024-04-22] VITALS (12 sets, daily range): BP systolic 113–116; BP diastolic 69–80; TEMP 97.4–98.6; O2SAT 98–100
[2024-04-23] VITALS (14 sets, daily range): BP systolic 104–120; BP diastolic 51–78; TEMP 98.2–99; O2SAT 98–100
[2024-04-24] VITALS (12 sets, daily range): BP systolic 109–117; BP diastolic 61–73; TEMP 98.8; O2SAT 98–100
[2024-04-25] VITALS (13 sets, daily range): BP systolic 104–117; BP diastolic 70–89; TEMP 98.6–100.2; O2SAT 98–100
[2024-04-25] MEDS: FLU VACC 2024-25(6MOS UP) 0.5 ML SYRINGE IM ONE (16:00)
[2024-04-26] VITALS (11 sets, daily range): BP systolic 105; BP diastolic 59; TEMP 97.9; O2SAT 97–100
[2024-04-27] VITALS (13 sets, daily range): BP systolic 90–108; BP diastolic 60–74; TEMP 97.2–98; O2SAT 97–100
[2024-04-27 07:40] LABS: BASOPHILS % (AUTO) 0.3 % (0.0-2.0); EOSINOPHILS # (AUTO) 0.1 K/uL (0.0-0.7); HEMATOCRIT 34 % (33-45); LYMPHOCYTES # (AUTO) 1.6 K/uL (0.8-4.8); LYMPHOCYTES % (AUTO) 21.5 % (20.0-44.0); MEAN CORPUSCULAR HEMOGLOBIN 29 PG (26.0-33.0); MEAN CORPUSCULAR HGB CONC 33 g/dl (31.0-36.0); MEAN CORPUSCULAR VOLUME 88 fL (82-100); MONOCYTES # (AUTO) 0.6 K/uL (0.1-1.30); MONOCYTES % (AUTO) 8.9 % (2.0-12.0); NEUTROPHILS % (AUTO) 68.3 % (43.0-81.0); PLATELET COUNT (AUTO) 273 K/uL (150-450); RED BLOOD CELL COUNT(AUTO) 3.84 MIL/uL (4.0-5.2); RED CELL DISTRIBUTION WIDTH 18.3 % (11.5-15.0); WHITE BLOOD COUNT (AUTO) 7.3 K/uL (4.3-11.0)
[2024-04-28] VITALS (12 sets, daily range): BP systolic 112–123; BP diastolic 75–83; TEMP 98.5–99.3; O2SAT 97–100
[2024-04-29] VITALS (12 sets, daily range): BP systolic 115; BP diastolic 63; TEMP 97.5; O2SAT 98–100
[2024-04-30] VITALS (12 sets, daily range): BP systolic 92–115; BP diastolic 50–76; TEMP 98–98.4; O2SAT 98–100
[2024-05-01] VITALS (13 sets, daily range): BP systolic 111–115; BP diastolic 50–65; TEMP 99; O2SAT 97–100
[2024-05-02] VITALS (13 sets, daily range): BP systolic 98–105; BP diastolic 62–72; TEMP 98–99; O2SAT 98–100
[2024-05-03] VITALS (12 sets, daily range): BP systolic 118–124; BP diastolic 65–80; TEMP 97.7–98.3; O2SAT 97–100
[2024-05-04] VITALS (12 sets, daily range): BP systolic 101–106; BP diastolic 70–73; TEMP 99–99.1; O2SAT 98–100
[2024-05-05] VITALS (13 sets, daily range): BP systolic 102–111; BP diastolic 69–73; TEMP 97.7–98.6; O2SAT 98–100
[2024-05-06] VITALS (12 sets, daily range): BP systolic 96; BP diastolic 73; TEMP 98.6; O2SAT 97–100
[2024-05-07] VITALS (13 sets, daily range): BP systolic 106–111; BP diastolic 64–74; TEMP 98.1–98.6; O2SAT 97–100
[2024-05-08] VITALS (13 sets, daily range): BP systolic 95–98; BP diastolic 67–77; TEMP 97.7–98.2; O2SAT 99–100
[2024-05-09] VITALS (14 sets, daily range): BP systolic 111–117; BP diastolic 58–70; TEMP 98.3–99; O2SAT 98–100
[2024-05-10] VITALS (11 sets, daily range): BP systolic 97–111; BP diastolic 64–68; TEMP 97.6–98.4; O2SAT 97–100
[2024-05-11] VITALS (14 sets, daily range): BP systolic 99–107; BP diastolic 65–76; TEMP 97.8–101.4; O2SAT 97–100
[2024-05-11] MEDS: ACETAMINOPHEN 650 MG/20 ML UDC- SA PATIENTS-FEVER ONLY GT PRN (20:34)
[2024-05-12] VITALS (15 sets, daily range): BP systolic 98–121; BP diastolic 73–97; TEMP 96.9–103.1; O2SAT 96–100
[2024-05-12 19:02] LABS: BASOPHILS % (AUTO) 0.1 % (0.0-2.0); HEMATOCRIT 35 % (33-45); HEMOGLOBIN 11.1 g/dL (11.5-14.8); LYMPHOCYTES # (AUTO) 1.3 K/uL (0.8-4.8); LYMPHOCYTES % (AUTO) 10.7 % (20.0-44.0); MEAN CORPUSCULAR HEMOGLOBIN 28 PG (26.0-33.0); MEAN CORPUSCULAR HGB CONC 32 g/dl (31.0-36.0); MEAN CORPUSCULAR VOLUME 88 fL (82-100); MONOCYTES # (AUTO) 1.2 K/uL (0.1-1.30); MONOCYTES % (AUTO) 9.5 % (2.0-12.0); NEUTROPHILS # (AUTO) 9.9 K/uL (1.8-8.9); NEUTROPHILS % (AUTO) 79.7 % (43.0-81.0); PLATELET COUNT (AUTO) 163 K/uL (150-450); RED BLOOD CELL COUNT(AUTO) 3.98 MIL/uL (4.0-5.2); RED CELL DISTRIBUTION WIDTH 18.8 % (11.5-15.0); WHITE BLOOD COUNT (AUTO) 12.4 K/uL (4.3-11.0)
[2024-05-12 19:28] LABS: CALCIUM, SERUM 8.8 mg/dL (8.5-10.1); CREATININE 1.4 mg/dL (0.6-1.3); POTASSIUM 5.8 mmol/L (3.5-5.1)
[2024-05-12 22:16] LABS: APPEARANCE,URINE SLIGHTLY HAZY (CLEAR); COLOR,URINE YELLOW (YELLOW)
[2024-05-12 22:17] LABS: BILIRUBIN,URINE NEGATIVE (NEGATIVE); KETONES,URINE NEGATIVE (NEGATIVE); UGLUCOSE NEGATIVE (NEGATIVE)
[2024-05-12 22:18] LABS: BLOOD, URINE LARGE Ery/uL (NEGATIVE)
[2024-05-12 22:19] LABS: PROTEIN,URINE 2+ mg/dl (NEGATIVE)
[2024-05-12 22:20] LABS: LEUKOCYTE ESTERASE ,URINE MODERATE (NEGATIVE); NITRITE, URINE NEGATIVE (NEGATIVE)
[2024-05-12 22:21] LABS: UROBILINOGEN,URINE 0.2 EU/dL (0.2)
[2024-05-12 22:34] LABS: ADD URINE CULTURE YES; BACTERIA,URINE Many /HPF (None Seen); SQUAMOUS EPITHELIAL CELL,UR Rare /HPF (None Seen); WBC,URINE 21-50 /HPF (0-3)
[2024-05-12] MEDS: IV NS 0.9% 1,000 ML IV PRN (23:38)
[2024-05-12] MEDS: CEFTRIAXONE 1 G in IV D5W 50 ML IV SCH (23:38)
[2024-05-13] VITALS (12 sets, daily range): BP systolic 104–112; BP diastolic 84–85; TEMP 97.7–100.9; O2SAT 92–100
[2024-05-14] VITALS (13 sets, daily range): BP systolic 97–98; BP diastolic 51–56; TEMP 99.4–99.5; O2SAT 97–99
[2024-05-14 07:44] LABS: CALCIUM, SERUM 8.6 mg/dL (8.5-10.1); POTASSIUM 4.1 mmol/L (3.5-5.1)
[2024-05-15] VITALS (12 sets, daily range): BP systolic 115; BP diastolic 78; TEMP 97.5; O2SAT 97–99
[2024-05-16] VITALS (10 sets, daily range): BP systolic 115; BP diastolic 69; TEMP 100; O2SAT 98–100
[2024-05-17] VITALS (11 sets, daily range): BP systolic 119; BP diastolic 72; TEMP 98.1; O2SAT 97–100
[2024-05-18] VITALS (7 sets, daily range): BP systolic 78; BP diastolic 43; TEMP 98.5; O2SAT 97–99
[2024-05-18] MEDS ORDERED: IV NS 0.9% 1,000 ML IV PRN (15:00)
[2024-05-18 15:19] LABS: BASOPHILS # (AUTO) 0.1 K/uL (0.0-0.2); BASOPHILS % (AUTO) 0.2 % (0.0-2.0); HEMATOCRIT 29 % (33-45); HEMOGLOBIN 9.4 g/dL (11.5-14.8); LYMPHOCYTES # (AUTO) 0.9 K/uL (0.8-4.8); LYMPHOCYTES % (AUTO) 3.4 % (20.0-44.0); MEAN CORPUSCULAR HEMOGLOBIN 28 PG (26.0-33.0); MEAN CORPUSCULAR HGB CONC 32 g/dl (31.0-36.0); MEAN CORPUSCULAR VOLUME 86 fL (82-100); MONOCYTES % (AUTO) 3.5 % (2.0-12.0); NEUTROPHILS # (AUTO) 25.6 K/uL (1.8-8.9); NEUTROPHILS % (AUTO) 92.9 % (43.0-81.0); PLATELET COUNT (AUTO) 213 K/uL (150-450); RED BLOOD CELL COUNT(AUTO) 3.38 MIL/uL (4.0-5.2); RED CELL DISTRIBUTION WIDTH 19.8 % (11.5-15.0); WHITE BLOOD COUNT (AUTO) 27.6 K/uL (4.3-11.0)
[2024-05-18 15:29] LABS: CALCIUM, SERUM 8.3 mg/dL (8.5-10.1); CREATININE 1.3 mg/dL (0.6-1.3); POTASSIUM 4.9 mmol/L (3.5-5.1)
[2024-05-18 15:36] LABS: ALBUMIN 1.6 g/dL (3.4-5.0); BILIRUBIN,TOTAL 0.8 mg/dL (0.2-1.0); TOTAL PROTEIN, SERUM 6.8 g/dL (6.4-8.2)
[2024-05-18 16:24] LABS: BAND % (MANUAL) 3 % (0.0-5.0); LYMPHOCYTES % (MANUAL) 6 % (16-48); MONOCYTES % (MANUAL) 1 % (0-11.0); NEUTROPHILS % (MANUAL) 90 (42-76)
[2024-05-18 16:25] LABS: PLATELET ESTIMATE ADEQUATE
[2024-05-22] MEDS ORDERED: PIPE3.379 IV (09:42)
[2024-05-22] MEDS ORDERED: POLYETHYLENE GLYCOL 3350 17 GM POWD.PACK GT SCH ×2 (17:35→22:00)
[2024-05-22] MEDS ORDERED: CHLORHEXIDINE GLUCONATE 15 ML UDC MM SCH ×2 (17:35→18:00)
[2024-05-22] MEDS ORDERED: BACLOFEN (10 MG) 10 MG TABLET GT SCH (17:35)
[2024-05-22] MEDS ORDERED: SENNOSIDES 8.6 MG TABLET GT SCH (17:35)
[2024-05-22] MEDS ORDERED: PIPERACILLIN /TAZOBACTAM 3.375 G in IV D5W 50 ML IV SCH (17:35)
[2024-05-22] MEDS ORDERED: IPRATROPIUM NEB FS 0.5 MG/2.5 ML AMPUL.NEB IH SCH (17:35)
[2024-05-22] MEDS ORDERED: GUAIFENESIN 300 MG/15 ML UDC GT PRN ×2 (17:35→18:30)
[2024-05-22] MEDS ORDERED: LEVETIRACETAM SOL (5 ML) 100 MG/ML UDC GT SCH (17:35)
[2024-05-22] MEDS ORDERED: VITAMINS A AND D 56.7 GM TUBE TP SCH (17:35)
[2024-05-22] MEDS ORDERED: MYCOPHENOLATE MOFETIL 250 MG CAPSULE PO SCH (17:35)
[2024-05-22] MEDS ORDERED: ALBUTEROL FS 2.5 MG/3 ML VIAL.NEB NEB SCH (17:35)
[2024-05-22] MEDS ORDERED: MAGNESIUM HYDROXIDE 30 ML UDC PO PRN (17:35)
[2024-05-22] MEDS ORDERED: FOLIC ACID 1 MG TABLET GT SCH (17:35)
[2024-05-22] MEDS ORDERED: POLYVINYL ALCOHOL 15 ML BOTTLE EACHEYE SCH ×2 (17:35→18:03)
[2024-05-22] MEDS ORDERED: ONDANSETRON HCL 4 MG/5 ML SOLUTION GT PRN (17:35)
[2024-05-22] MEDS ORDERED: MAGNESIUM HYDROXIDE 30 ML UDC GT PRN (18:00)
[2024-05-22] MEDS ORDERED: ACETAMINOPHEN 650 MG/20 ML UDC- SA PATIENTS-FEVER ONLY GT PRN (18:00)
[2024-05-22] MEDS ORDERED: HYDROGEN PEROXIDE 480 ML BOTTLE TP PRN (18:00)
[2024-05-22] MEDS ORDERED: JEVITY 1.2 CAL 1,000 ML BOTTLE GT PRN (18:00)
[2024-05-22] MEDS ORDERED: ZOSYN IVPB 3.375 G in IV D5W 50ml IV SCH ×2 (18:00→20:00)
[2024-05-22] MEDS ORDERED: ACETAMINOPHEN 650 MG/20 ML UDC- SA PATIENTS-PAIN ONLY GT PRN (18:00)
[2024-05-22] MEDS ORDERED: IPRATROPIUM NEB FS 0.5 MG/2.5 ML AMPUL.NEB NEB SCH (19:30)
[2024-05-22] MEDS ORDERED: ALBUTEROL FS 2.5 MG/0.5 ML VIAL.NEB NEB SCH (19:30)
[2024-05-22 19:37] VITALS: BP 118/80; TEMP 98.1; O2SAT 100
[2024-05-22] MEDS ORDERED: HEPARIN SODIUM, PORCINE 5000 UNITS/1 ML VIAL SQ SCH (21:00)
[2024-05-22] MEDS ORDERED: HYDROGEN PEROXIDE 480 ML BOTTLE TP SCH (21:00)
[2024-05-22] MEDS ORDERED: Z GUARD REMEDY 4 OZ OINT TP SCH (21:00)
[2024-05-22] MEDS ORDERED: VITS A AND D/WHITE PET/LANOLIN 5 GM PACKET TP SCH ×2 (21:00)
[2024-05-23] MEDS ORDERED: SENNOSIDES 8.6 MG TABLET GT SCH (09:00)
[2024-05-23] MEDS ORDERED: FOLIC ACID 1 MG TABLET GT SCH (09:00)
[2024-05-23] MEDS ORDERED: BACLOFEN (10 MG) 10 MG TABLET GT SCH (09:00)
== END 2024-05-22 16:00 | disposition short-term general hospital (02) | DRG 189 ==
LOC: SA 17:09
PROVIDERS: ADMIT Internal Medicine; ATTEND Internal Medicine
DX: J96.10 Chronic respiratory failure, unspecified whether with hypoxia or hypercapnia (principal); K31.6 Fistula of stomach and duodenum; K94.23 Gastrostomy malfunction; L10.0 Pemphigus vulgaris; I69.151 Hemiplegia and hemiparesis following nontraumatic intracerebral hemorrhage affecting right dominant side; G93.49 Other encephalopathy; I69.198 Other sequelae of nontraumatic intracerebral hemorrhage; I10 Essential (primary) hypertension; E11.9 Type 2 diabetes mellitus without complications; R13.10 Dysphagia, unspecified; D64.9 Anemia, unspecified; N20.0 Calculus of kidney; Z86.79 Personal history of other diseases of the circulatory system; Z87.442 Personal history of urinary calculi; Z93.0 Tracheostomy status
CPT/HCPCS: 31720; 36415; 71045-TC; 74018; 80048-TC; 80053-TC; 81001; 82728-TC; 83540-TC; 85025-TC; 87040-TC; 87086-TC; 94640-TC; 94760-TC; 94761-TC; 94762-TC; 94799-TC; 97110-TC; 97112-TC; 97530-TC; 97535-TC; A4217; A4223; A4623; A7526; J0696; J1644; J2543; J2916; J7030; J7060; J7517; Q9963

== ENCOUNTER 2024-05-18 19:59 | Inpatient (IN) | payer MEDICARE, OTHER ==
[~2024-05-18] VITALS: Ht 152.4 cm; Wt 56.7 kg
[2024-05-18 20:00] VITALS: O2SAT 100
[2024-05-18 20:46] LABS: BASOPHILS % (AUTO) 0.2 % (0.0-2.0); EOSINOPHILS % (AUTO) 0.3 % (0.0-6.0); HEMATOCRIT 29 % (33-45); LYMPHOCYTES # (AUTO) 1.3 K/uL (0.8-4.8); LYMPHOCYTES % (AUTO) 7.9 % (20.0-44.0); MEAN CORPUSCULAR HEMOGLOBIN 28 PG (26.0-33.0); MEAN CORPUSCULAR HGB CONC 32 g/dl (31.0-36.0); MEAN CORPUSCULAR VOLUME 87 fL (82-100); MONOCYTES # (AUTO) 0.7 K/uL (0.1-1.30); MONOCYTES % (AUTO) 4.4 % (2.0-12.0); NEUTROPHILS # (AUTO) 14.8 K/uL (1.8-8.9); NEUTROPHILS % (AUTO) 87.2 % (43.0-81.0); PLATELET COUNT (AUTO) 190 K/uL (150-450); RED BLOOD CELL COUNT(AUTO) 3.28 MIL/uL (4.0-5.2); RED CELL DISTRIBUTION WIDTH 19.6 % (11.5-15.0)
[2024-05-18 20:59] LABS: INR 1.14 (0.91-1.10); PARTIAL THROMBOPLASTIN TIME 30.8 SEC (24.3-34.3)
[2024-05-18 21:02] LABS: CALCIUM, SERUM 8.5 mg/dL (8.5-10.1); CARBON DIOXIDE 26 mmol/L (21-32); CHLORIDE 109 mmol/L (98-107); CREATININE 1.2 mg/dL (0.6-1.3); GLUCOSE 106 mg/dL (74-106); POTASSIUM 4.8 mmol/L (3.5-5.1); SODIUM SERUM 142 mmol/L (136-145); UREA NITROGEN, BLOOD 45 mg/dL (7-18)
[2024-05-18 21:08] LABS: ALANINE AMINOTRANSFERASE 114 U/L (12-78); ALBUMIN 1.7 g/dL (3.4-5.0); ALKALINE PHOSPHATASE 480 U/L (46-116); ASPARTATE AMINOTRANSFERASE 95 U/L (15-37); BILIRUBIN,DIRECT 0.5 mg/dL (0.0-0.2); BILIRUBIN,TOTAL 0.7 mg/dL (0.2-1.0); TOTAL PROTEIN, SERUM 6.8 g/dL (6.4-8.2)
[2024-05-18 21:12] LABS: LACTIC ACID 1.5 mmol/L (0.4-2.0)
[2024-05-18 21:17] VITALS: O2SAT 99
[2024-05-18 21:41] LABS: BILIRUBIN,URINE NEGATIVE (NEGATIVE); BLOOD, URINE 3+ Ery/uL (NEGATIVE); COLOR,URINE YELLOW (YELLOW); KETONES,URINE NEGATIVE (NEGATIVE); LEUKOCYTE ESTERASE ,URINE 3+ (NEGATIVE); NITRITE, URINE NEGATIVE (NEGATIVE); PROTEIN,URINE 1+ mg/dl (NEGATIVE); UGLUCOSE NEGATIVE (NEGATIVE); UROBILINOGEN,URINE 0.2 EU/dL (0.2)
[2024-05-18 21:42] LABS: ADD URINE CULTURE YES; APPEARANCE,URINE HAZY (CLEAR); BACTERIA,URINE 1+ /HPF (None Seen); RBC,URINE 21-50 /HPF (0-2); SQUAMOUS EPITHELIAL CELL,UR Moderate /HPF (None Seen)
[2024-05-18] MEDS ORDERED: VANCOMYCIN 1 GM /D5W 250 ML PB IV ONE (21:51)
[2024-05-18] MEDS ORDERED: PIPERACI/TAZO 3.375GM/D5W 50ML PB IV ONE (21:51)
[2024-05-18] MEDS: PIPERACILLIN /TAZOBACTAM 3.375 G in IV D5W 50 ML IV ONE (22:00)
[2024-05-18] MEDS: VANCOMYCIN 1 GM in IV D5W 250 ML IV ONE (22:00)
[2024-05-18] MEDS: IV NS 0.9% 1,000 ML BAG IV ONE (22:07)
[2024-05-18] MEDS: IV NS 0.9% 1,000 ML IV SCH (23:50)
[2024-05-19] VITALS (20 sets, daily range): BP systolic 98–126; BP diastolic 53–83; TEMP 97.9–99; O2SAT 94–100
[2024-05-19] MEDS ORDERED: MAGNESIUM HYDROXIDE 30 ML UDC PO PRN
[2024-05-19] MEDS ORDERED: Z GUARD REMEDY 4 OZ OINT TP PRN
[2024-05-19] MEDS ORDERED: MAG HYDROX/AL HYDROX/SIMETH 30 ML UDC GT PRN
[2024-05-19] MEDS ORDERED: ACETAMINOPHEN 650 MG/SUPP.RECT RC PRN
[2024-05-19] MEDS ORDERED: ONDANSETRON HCL/PF 4 MG/2 ML VIAL IVP PRN
[2024-05-19] MEDS ORDERED: PETROLATUM,WHITE PACKET 5 GM PACKET TP SCH (01:00)
[2024-05-19] MEDS ORDERED: GUAIFENESIN 300 MG/15 ML UDC GT PRN (01:00)
[2024-05-19] MEDS ORDERED: JEVITY 1.2 CAL 1,000 ML BOTTLE GT SCH (01:00)
[2024-05-19] MEDS: IV NS 0.9% 500 ML IV ONE (01:16)
[2024-05-19] MEDS: IPRATROPIUM NEB FS 0.5 MG/2.5 ML AMPUL.NEB IH SCH (02:09)
[2024-05-19] MEDS: ALBUTEROL FS 2.5 MG/3 ML VIAL.NEB NEB SCH (02:10)
[2024-05-19 03:02] LABS: BASOPHILS % (AUTO) 0.2 % (0.0-2.0); EOSINOPHILS # (AUTO) 0.1 K/uL (0.0-0.7); EOSINOPHILS % (AUTO) 0.4 % (0.0-6.0); HEMATOCRIT 28 % (33-45); HEMOGLOBIN 8.9 g/dL (11.5-14.8); LYMPHOCYTES # (AUTO) 0.9 K/uL (0.8-4.8); LYMPHOCYTES % (AUTO) 6.5 % (20.0-44.0); MEAN CORPUSCULAR HEMOGLOBIN 28 PG (26.0-33.0); MEAN CORPUSCULAR HGB CONC 32 g/dl (31.0-36.0); MEAN CORPUSCULAR VOLUME 87 fL (82-100); MONOCYTES # (AUTO) 0.6 K/uL (0.1-1.30); MONOCYTES % (AUTO) 4.5 % (2.0-12.0); NEUTROPHILS # (AUTO) 12.3 K/uL (1.8-8.9); NEUTROPHILS % (AUTO) 88.4 % (43.0-81.0); PLATELET COUNT (AUTO) 165 K/uL (150-450); RED BLOOD CELL COUNT(AUTO) 3.17 MIL/uL (4.0-5.2); RED CELL DISTRIBUTION WIDTH 19.4 % (11.5-15.0)
[2024-05-19] MEDS ORDERED: Medication Not On Formulary EA (Ondansetron Hcl (Zofran) 1 TAB) GT SCH (06:00)
[2024-05-19] MEDS: PIPERACI/TAZO 3.375GM/D5W 50ML PB IV ONE (06:02)
[2024-05-19] MEDS: CHLORHEXIDINE GLUCONATE 15 ML UDC MM SCH (06:04)
[2024-05-19] MEDS: PIPERACILLIN /TAZOBACTAM 3.375 G in IV D5W 50 ML IV SCH (06:04)
[2024-05-19 07:28] LABS: BASOPHILS % (AUTO) 0.1 % (0.0-2.0); EOSINOPHILS % (AUTO) 0.5 % (0.0-6.0); HEMATOCRIT 27 % (33-45); HEMOGLOBIN 8.6 g/dL (11.5-14.8); LYMPHOCYTES % (AUTO) 9.8 % (20.0-44.0); MEAN CORPUSCULAR HEMOGLOBIN 28 PG (26.0-33.0); MEAN CORPUSCULAR HGB CONC 32 g/dl (31.0-36.0); MEAN CORPUSCULAR VOLUME 88 fL (82-100); MONOCYTES # (AUTO) 0.5 K/uL (0.1-1.30); MONOCYTES % (AUTO) 4.4 % (2.0-12.0); NEUTROPHILS # (AUTO) 9.1 K/uL (1.8-8.9); NEUTROPHILS % (AUTO) 85.2 % (43.0-81.0); PLATELET COUNT (AUTO) 178 K/uL (150-450); RED BLOOD CELL COUNT(AUTO) 3.08 MIL/uL (4.0-5.2); RED CELL DISTRIBUTION WIDTH 19.7 % (11.5-15.0); WHITE BLOOD COUNT (AUTO) 10.7 K/uL (4.3-11.0)
[2024-05-19] MEDS ORDERED: ONDANSETRON HCL 4 MG/5 ML SOLUTION GT PRN (08:00)
[2024-05-19 08:27] LABS: ALBUMIN 1.5 g/dL (3.4-5.0); BILIRUBIN,TOTAL 0.7 mg/dL (0.2-1.0); CREATININE 1.1 mg/dL (0.6-1.3); MAGNESIUM 1.9 mg/dL (1.8-2.4); PHOSPHORUS 2.9 mg/dL (2.5-4.9); POTASSIUM 4.5 mmol/L (3.5-5.1); TOTAL PROTEIN, SERUM 6.2 g/dL (6.4-8.2)
[2024-05-19] MEDS: LEVETIRACETAM SOL (5 ML) 100 MG/ML UDC GT SCH (08:39)
[2024-05-19] MEDS: BACLOFEN (10 MG) 10 MG TABLET GT SCH (08:40)
[2024-05-19] MEDS: SERTRALINE HCL 25 MG TABLET GT SCH (08:40)
[2024-05-19] MEDS: PANTOPRAZOLE 40 MG VIAL IV SCH (08:40)
[2024-05-19] MEDS: SENNOSIDES 8.6 MG TABLET GT SCH (08:40)
[2024-05-19] MEDS: FOLIC ACID 1 MG TABLET GT SCH (08:40)
[2024-05-19] MEDS: MYCOPHENOLATE MOFETIL 250 MG CAPSULE PO SCH (08:40)
[2024-05-19] MEDS: VITAMINS A AND D 56.7 GM TUBE TP SCH (08:41)
[2024-05-19] MEDS: POLYVINYL ALCOHOL 15 ML BOTTLE EACHEYE SCH (10:04)
[2024-05-19] MEDS: CLOTRIMAZOLE 1% 15 GM TUBE TP SCH (16:51)
[2024-05-19] MEDS: JEVITY 1.2 CAL 1,000 ML BOTTLE GT SCH (17:02)
[2024-05-19] MEDS: POLYETHYLENE GLYCOL 3350 17 GM POWD.PACK GT SCH (21:09)
[2024-05-19] MEDS: VANCOMYCIN 1 GM in IV D5W 250ml IV SCH (21:44)
[2024-05-20] VITALS (16 sets, daily range): BP systolic 104–117; BP diastolic 59–69; TEMP 97.5–98.1; O2SAT 95–99
[2024-05-20 08:24] LABS: BASOPHILS % (AUTO) 0.1 % (0.0-2.0); EOSINOPHILS % (AUTO) 0.2 % (0.0-6.0); HEMATOCRIT 26 % (33-45); HEMOGLOBIN 8.5 g/dL (11.5-14.8); LYMPHOCYTES # (AUTO) 1.6 K/uL (0.8-4.8); LYMPHOCYTES % (AUTO) 12.2 % (20.0-44.0); MEAN CORPUSCULAR HEMOGLOBIN 28 PG (26.0-33.0); MEAN CORPUSCULAR HGB CONC 32 g/dl (31.0-36.0); MEAN CORPUSCULAR VOLUME 88 fL (82-100); MONOCYTES # (AUTO) 0.7 K/uL (0.1-1.30); MONOCYTES % (AUTO) 5.6 % (2.0-12.0); NEUTROPHILS # (AUTO) 10.5 K/uL (1.8-8.9); NEUTROPHILS % (AUTO) 81.9 % (43.0-81.0); PLATELET COUNT (AUTO) 193 K/uL (150-450); RED BLOOD CELL COUNT(AUTO) 3.01 MIL/uL (4.0-5.2); RED CELL DISTRIBUTION WIDTH 19.9 % (11.5-15.0); WHITE BLOOD COUNT (AUTO) 12.8 K/uL (4.3-11.0)
[2024-05-20] MEDS: PANTOPRAZOLE 40 MG/PACK PACK GT SCH (08:42)
[2024-05-20 09:11] LABS: ALBUMIN 1.5 g/dL (3.4-5.0); BILIRUBIN,TOTAL 0.4 mg/dL (0.2-1.0); CALCIUM, SERUM 8.4 mg/dL (8.5-10.1); CREATININE 0.9 mg/dL (0.6-1.3); POTASSIUM 3.7 mmol/L (3.5-5.1); TOTAL PROTEIN, SERUM 6.2 g/dL (6.4-8.2)
[2024-05-20] MEDS: VANCOMYCIN HCL 1.25 GM in IV D5W 250 ML IV SCH (21:24)
[2024-05-20] MEDS: IV NS 0.9% 1,000 ML IV PRN (23:24)
[2024-05-21] VITALS (18 sets, daily range): BP systolic 103–126; BP diastolic 56–73; TEMP 97.3–98.6; O2SAT 98–100
[2024-05-21 07:46] LABS: BASOPHILS % (AUTO) 0.3 % (0.0-2.0); EOSINOPHILS # (AUTO) 0.1 K/uL (0.0-0.7); EOSINOPHILS % (AUTO) 1.3 % (0.0-6.0); HEMATOCRIT 29 % (33-45); HEMOGLOBIN 9.3 g/dL (11.5-14.8); LYMPHOCYTES # (AUTO) 1.6 K/uL (0.8-4.8); LYMPHOCYTES % (AUTO) 21.2 % (20.0-44.0); MEAN CORPUSCULAR HEMOGLOBIN 29 PG (26.0-33.0); MEAN CORPUSCULAR HGB CONC 32 g/dl (31.0-36.0); MEAN CORPUSCULAR VOLUME 88 fL (82-100); MONOCYTES # (AUTO) 0.5 K/uL (0.1-1.30); MONOCYTES % (AUTO) 6.2 % (2.0-12.0); NEUTROPHILS # (AUTO) 5.3 K/uL (1.8-8.9); PLATELET COUNT (AUTO) 209 K/uL (150-450); RED BLOOD CELL COUNT(AUTO) 3.28 MIL/uL (4.0-5.2); RED CELL DISTRIBUTION WIDTH 20.1 % (11.5-15.0); WHITE BLOOD COUNT (AUTO) 7.5 K/uL (4.3-11.0)
[2024-05-21 07:55] LABS: ALBUMIN 1.5 g/dL (3.4-5.0); BILIRUBIN,TOTAL 0.5 mg/dL (0.2-1.0); CALCIUM, SERUM 8.4 mg/dL (8.5-10.1); CREATININE 0.9 mg/dL (0.6-1.3); POTASSIUM 4.5 mmol/L (3.5-5.1); TOTAL PROTEIN, SERUM 6.1 g/dL (6.4-8.2)
[2024-05-21] MEDS ORDERED: IV NS 0.9% 250 ML IV ONE (08:49)
[2024-05-21] MEDS ORDERED: CT SWABBABLE VALVE TRANS SET 1 EA INFUS.SET MC ONE (08:49)
[2024-05-21] MEDS ORDERED: IOHEXOL-300 100 ML VIAL IV ONE (08:49)
[2024-05-21] MEDS: IV D5W 1,000 ML IV ONE (09:39)
[2024-05-22] VITALS (13 sets, daily range): BP systolic 107–120; BP diastolic 59–73; TEMP 97.9–98.2; O2SAT 92–100
[2024-05-22 07:59] LABS: BASOPHILS % (AUTO) 0.2 % (0.0-2.0); EOSINOPHILS # (AUTO) 0.1 K/uL (0.0-0.7); EOSINOPHILS % (AUTO) 1.6 % (0.0-6.0); HEMATOCRIT 29 % (33-45); HEMOGLOBIN 9.2 g/dL (11.5-14.8); LYMPHOCYTES # (AUTO) 1.8 K/uL (0.8-4.8); LYMPHOCYTES % (AUTO) 19.1 % (20.0-44.0); MEAN CORPUSCULAR HEMOGLOBIN 28 PG (26.0-33.0); MEAN CORPUSCULAR HGB CONC 32 g/dl (31.0-36.0); MEAN CORPUSCULAR VOLUME 89 fL (82-100); MONOCYTES # (AUTO) 0.7 K/uL (0.1-1.30); MONOCYTES % (AUTO) 7.5 % (2.0-12.0); NEUTROPHILS # (AUTO) 6.6 K/uL (1.8-8.9); NEUTROPHILS % (AUTO) 71.6 % (43.0-81.0); PLATELET COUNT (AUTO) 231 K/uL (150-450); RED BLOOD CELL COUNT(AUTO) 3.29 MIL/uL (4.0-5.2); RED CELL DISTRIBUTION WIDTH 19.6 % (11.5-15.0); WHITE BLOOD COUNT (AUTO) 9.3 K/uL (4.3-11.0)
[2024-05-22 09:10] LABS: ALBUMIN 1.6 g/dL (3.4-5.0); BILIRUBIN,TOTAL 0.5 mg/dL (0.2-1.0); CALCIUM, SERUM 8.2 mg/dL (8.5-10.1); CREATININE 0.8 mg/dL (0.6-1.3); POTASSIUM 4.2 mmol/L (3.5-5.1); TOTAL PROTEIN, SERUM 6.2 g/dL (6.4-8.2)
[2024-05-22] MEDS ORDERED: PIPE3.379 IV (09:42)
== END 2024-05-22 15:40 | DRG 871 ==
LOC: ER 20:01 → TELE-TD 05-19 00:10 → MEDSG1 05-20 12:24 → TELE1 05-20 12:27
PROVIDERS: ATTEND Internal Medicine
DX: A41.9 Sepsis, unspecified organism (principal); N17.0 Acute kidney failure with tubular necrosis; D68.59 Other primary thrombophilia; D62 Acute posthemorrhagic anemia; N39.0 Urinary tract infection, site not specified; E87.0 Hyperosmolality and hypernatremia; J96.10 Chronic respiratory failure, unspecified whether with hypoxia or hypercapnia; Z99.11 Dependence on respirator [ventilator] status; G93.49 Other encephalopathy; D64.9 Anemia, unspecified; E11.9 Type 2 diabetes mellitus without complications; I10 Essential (primary) hypertension; R13.10 Dysphagia, unspecified; Z74.01 Bed confinement status; Z87.440 Personal history of urinary (tract) infections; Z93.0 Tracheostomy status; Z93.1 Gastrostomy status; R74.01 Elevation of levels of liver transaminase levels; B96.4 Proteus (mirabilis) (morganii) as the cause of diseases classified elsewhere; M89.8X9 Other specified disorders of bone, unspecified site
CPT/HCPCS: 31720; 36415; 71045-TC; 80048-TC; 80053-TC; 80076-TC; 80202-TC; 81001; 82962-TC; 83605-TC; 83735-TC; 84100-TC; 84484-TC; 85025-TC; 85730-TC; 87040-TC; 87086-TC; 93307-TC; 94640-TC; 94664-TC; 94760-TC; 94762-TC; 94799-TC; A4223; G0378; J1953; J2470; J2543; J3370; J7030; J7040; J7050; J7060; J7070; J7517; Q0162; Q9967

== ENCOUNTER 2024-07-20 00:01 | Inpatient (IN) | payer MEDICARE, OTHER ==
[~2024-07-20] VITALS: Ht 160 cm; Wt 60.3 kg
[~2024-07-20 00:01] MED LIST changes: +PIPE3.379 IV
[2024-07-21] VITALS (11 sets, daily range): BP systolic 119; BP diastolic 54; TEMP 97.8; O2SAT 98–100
[2024-07-21] MEDS ORDERED: HYDROGEN PEROXIDE 480 ML BOTTLE TP PRN (07:48)
[2024-07-21] MEDS ORDERED: GUAIFENESIN 300 MG/15 ML UDC GT PRN (07:48)
[2024-07-21] MEDS ORDERED: HEPARIN SODIUM, PORCINE 5000 UNITS/1 ML VIAL SQ SCH (07:48)
[2024-07-21] MEDS ORDERED: MAGNESIUM HYDROXIDE 30 ML UDC GT PRN (07:48)
[2024-07-21] MEDS: BACLOFEN (10 MG) 10 MG TABLET GT SCH (08:18)
[2024-07-21] MEDS: FOLIC ACID 1 MG TABLET GT SCH (08:18)
[2024-07-21] MEDS: SENNOSIDES 8.6 MG TABLET GT SCH (08:18)
[2024-07-21] MEDS: HEPARIN SODIUM, PORCINE 5000 UNITS/1 ML VIAL SQ SCH (08:19)
[2024-07-21] MEDS: PETROLATUM,WHITE PACKET 5 GM PACKET TP SCH (08:20)
[2024-07-21] MEDS: VITS A AND D/WHITE PET/LANOLIN 5 GM PACKET TP SCH ×2 (08:20)
[2024-07-21] MEDS: ZINC OXIDE 30 GM TUBE TP SCH (08:20)
[2024-07-21] MEDS: Z GUARD REMEDY 4 OZ OINT TP SCH (08:20)
[2024-07-21] MEDS: HYDROGEN PEROXIDE 480 ML BOTTLE TP SCH (09:23)
[2024-07-21] MEDS: POLYVINYL ALCOHOL 15 ML BOTTLE EACHEYE SCH (12:00)
[2024-07-21] MEDS: IPRATROPIUM NEB FS 0.5 MG/2.5 ML AMPUL.NEB NEB SCH (13:01)
[2024-07-21] MEDS: ALBUTEROL FS 2.5 MG/0.5 ML VIAL.NEB NEB SCH (13:01)
[2024-07-21] MEDS: CHLORHEXIDINE GLUCONATE 15 ML UDC MM SCH (17:05)
[2024-07-21] MEDS: JEVITY 1.2 CAL 1,000 ML BOTTLE GT PRN (18:33)
[2024-07-21] MEDS: POLYETHYLENE GLYCOL 3350 17 GM POWD.PACK GT SCH (21:01)
[2024-07-22] VITALS (14 sets, daily range): BP systolic 108–116; BP diastolic 66–77; TEMP 98–98.2; O2SAT 98–100
[2024-07-23] VITALS (13 sets, daily range): BP systolic 108; BP diastolic 64; TEMP 98.8; O2SAT 96–100
[2024-07-24] VITALS (15 sets, daily range): BP systolic 113–142; BP diastolic 61–68; TEMP 98.6–99; O2SAT 97–100
[2024-07-25] VITALS (11 sets, daily range): BP systolic 96–108; BP diastolic 71–77; TEMP 98.1–98.3; O2SAT 96–99
[2024-07-26] VITALS (13 sets, daily range): BP systolic 107–121; BP diastolic 61–76; TEMP 98.4–98.6; O2SAT 97–100
[2024-07-27] VITALS (14 sets, daily range): BP systolic 91–128; BP diastolic 60–71; TEMP 98.6–99.1; O2SAT 97–100
[2024-07-28] VITALS (13 sets, daily range): BP systolic 112; BP diastolic 69–72; TEMP 97.9–98.4; O2SAT 97–100
[2024-07-29] VITALS (12 sets, daily range): BP systolic 103–111; BP diastolic 58–59; TEMP 97.5–98.4; O2SAT 97–99
[2024-07-30] VITALS (12 sets, daily range): BP systolic 118–130; BP diastolic 57–74; TEMP 98.1–98.6; O2SAT 97–100
[2024-07-31] VITALS (12 sets, daily range): BP systolic 102–123; BP diastolic 68–80; TEMP 98.8–99; O2SAT 99–100
[2024-08-01] VITALS (10 sets, daily range): BP systolic 100–115; BP diastolic 61–81; TEMP 98.3–98.6; O2SAT 96–100
[2024-08-02] VITALS (11 sets, daily range): BP systolic 109–120; BP diastolic 72–74; TEMP 98.3–98.8; O2SAT 97–100
[2024-08-03] VITALS (13 sets, daily range): BP systolic 108–113; BP diastolic 64–87; TEMP 98; O2SAT 97–100
[2024-08-04] VITALS (13 sets, daily range): BP systolic 98–108; BP diastolic 68–69; TEMP 97.9–98.4; O2SAT 98–100
[2024-08-05] VITALS (13 sets, daily range): BP systolic 101–108; BP diastolic 63–67; TEMP 98.2–98.7; O2SAT 98–100
[2024-08-06] VITALS (11 sets, daily range): BP systolic 111–125; BP diastolic 74–84; TEMP 97.6–99.1; O2SAT 98–100
[2024-08-07] VITALS (12 sets, daily range): BP systolic 112–113; BP diastolic 74–77; TEMP 99.2–99.9; O2SAT 98–100
[2024-08-08] VITALS (11 sets, daily range): BP systolic 113–126; BP diastolic 64–79; TEMP 98.1–98.2; O2SAT 97–99
[2024-08-09] VITALS (12 sets, daily range): BP systolic 108–126; BP diastolic 64–73; TEMP 97.8–99.3; O2SAT 97–100
[2024-08-09] MEDS: SULFAMETH/TRIMETH 800/160 MG 1 UDTAB TABLET GT SCH (12:00)
[2024-08-10] VITALS (10 sets, daily range): BP systolic 98–103; BP diastolic 60–79; TEMP 98.2; O2SAT 97–100
[2024-08-11] VITALS (11 sets, daily range): BP systolic 99; BP diastolic 64; TEMP 97.7; O2SAT 95–100
[2024-08-12] VITALS (11 sets, daily range): BP systolic 116–126; BP diastolic 59–62; TEMP 97–97.5; O2SAT 98–100
[2024-08-13] VITALS (11 sets, daily range): BP systolic 106; BP diastolic 58; TEMP 98.6; O2SAT 98–100
[2024-08-13] MEDS: GENTAMICIN OPTH SOLN 0.3% 5 ML BOTTLE RIGHTEYE SCH (12:59)
[2024-08-14] VITALS (12 sets, daily range): BP systolic 103; BP diastolic 88; TEMP 98.3; O2SAT 99–100
[2024-08-15] VITALS (12 sets, daily range): BP systolic 112–128; BP diastolic 51–78; TEMP 98.2–98.4; O2SAT 97–100
[2024-08-16] VITALS (11 sets, daily range): BP systolic 109–115; BP diastolic 69–79; TEMP 98.1–99; O2SAT 96–99
[2024-08-17] VITALS (13 sets, daily range): BP systolic 110–127; BP diastolic 65–75; TEMP 97.9–99; O2SAT 98–100
[2024-08-18] VITALS (13 sets, daily range): BP systolic 112–114; BP diastolic 54–67; TEMP 97.7–99.3; O2SAT 98–100
[2024-08-19] VITALS (11 sets, daily range): BP systolic 101–114; BP diastolic 76–83; TEMP 98.1–98.2; O2SAT 97–100
[2024-08-20] VITALS (13 sets, daily range): BP systolic 108–116; BP diastolic 34–70; TEMP 98.2–98.8; O2SAT 97–100
[2024-08-21] VITALS (11 sets, daily range): BP systolic 105–133; BP diastolic 54–74; TEMP 97.6–99; O2SAT 98–100
[2024-08-22] VITALS (12 sets, daily range): BP systolic 108–118; BP diastolic 60–75; TEMP 98.2–99.1; O2SAT 98–100
[2024-08-23] VITALS (12 sets, daily range): BP systolic 107–116; BP diastolic 80–88; TEMP 98.2–99; O2SAT 98–99
[2024-08-24] VITALS (12 sets, daily range): BP systolic 119–129; BP diastolic 67–69; TEMP 97.6–97.9; O2SAT 98–100
[2024-08-24] MEDS ORDERED: SULFAMETH/TRIMETH 800/160 MG 1 UDTAB TABLET GT SCH (08:39)
[2024-08-24] MEDS: SULFAMETH/TRIMETH 800/160 MG 1 UDTAB TABLET GT SCH (09:08)
[2024-08-25] VITALS (12 sets, daily range): BP systolic 114–119; BP diastolic 70–88; TEMP 97.8–97.9; O2SAT 98–100
[2024-08-26] VITALS (14 sets, daily range): BP systolic 104–128; BP diastolic 57–78; TEMP 98.6; O2SAT 98–100
[2024-08-27] VITALS (13 sets, daily range): BP systolic 101–113; BP diastolic 58–60; TEMP 97.7–99.1; O2SAT 98–100
[2024-08-28] VITALS (12 sets, daily range): BP systolic 106–118; BP diastolic 51–53; TEMP 98.2–98.6; O2SAT 96–100
[2024-08-29] VITALS (12 sets, daily range): BP systolic 108; BP diastolic 80; TEMP 99.2; O2SAT 98–99
[2024-08-30] VITALS (13 sets, daily range): BP systolic 108–113; BP diastolic 57–69; TEMP 97.7–98.8; O2SAT 98–99
[2024-08-31] VITALS (13 sets, daily range): BP systolic 99–112; BP diastolic 65–72; TEMP 98–98.1; O2SAT 96–100
[2024-09-01] VITALS (12 sets, daily range): BP systolic 108–122; BP diastolic 72–81; TEMP 98.4–98.8; O2SAT 98–100
[2024-09-02] VITALS (12 sets, daily range): BP systolic 117–122; BP diastolic 55–70; TEMP 98.1–98.2; O2SAT 98–100
[2024-09-03] VITALS (13 sets, daily range): BP systolic 114–118; BP diastolic 70–77; TEMP 97–98.2; O2SAT 76–100
[2024-09-04] VITALS (12 sets, daily range): BP systolic 116–118; BP diastolic 74–75; TEMP 97–98.8; O2SAT 97–100
[2024-09-05] VITALS (11 sets, daily range): BP systolic 112–115; BP diastolic 72–75; TEMP 98.1–98.6; O2SAT 97–100
[2024-09-06] VITALS (14 sets, daily range): BP systolic 119; BP diastolic 81–82; TEMP 98.2–98.6; O2SAT 98–100
[2024-09-07] VITALS (13 sets, daily range): BP systolic 113–119; BP diastolic 62–68; TEMP 97.2–99; O2SAT 98–100
[2024-09-08] VITALS (13 sets, daily range): BP systolic 93–108; BP diastolic 65–71; TEMP 97.8; O2SAT 98–100
[2024-09-09] VITALS (14 sets, daily range): BP systolic 104–121; BP diastolic 48–59; TEMP 97.3–99; O2SAT 98–100
[2024-09-10] VITALS (12 sets, daily range): BP systolic 110–126; BP diastolic 51–69; TEMP 98.6–99; O2SAT 98–100
[2024-09-11] VITALS (13 sets, daily range): BP systolic 102–119; BP diastolic 48–78; TEMP 98.1–99; O2SAT 98–100
[2024-09-12] VITALS (13 sets, daily range): BP systolic 115–126; BP diastolic 67–71; TEMP 97.3–98.3; O2SAT 96–100
[2024-09-13] VITALS (13 sets, daily range): BP systolic 115–131; BP diastolic 72–73; TEMP 97.4–98; O2SAT 98–100
[2024-09-14] VITALS (13 sets, daily range): BP systolic 111–116; BP diastolic 83–91; TEMP 98.4–98.8; O2SAT 99–100
[2024-09-15] VITALS (12 sets, daily range): BP systolic 107–120; BP diastolic 49–83; TEMP 98.8–99; O2SAT 97–100
[2024-09-16] VITALS (13 sets, daily range): BP systolic 106–107; BP diastolic 65–76; TEMP 98.2–98.4; O2SAT 96–100
[2024-09-17] VITALS (12 sets, daily range): BP systolic 104–111; BP diastolic 68–72; TEMP 98.2–98.4; O2SAT 98–100
[2024-09-18] VITALS (14 sets, daily range): BP systolic 110–114; BP diastolic 63–70; TEMP 98.4–98.6; O2SAT 99–100
[2024-09-19] VITALS (11 sets, daily range): BP systolic 123–131; BP diastolic 67–68; TEMP 98–98.1; O2SAT 96–100
[2024-09-20] VITALS (13 sets, daily range): BP systolic 117–126; BP diastolic 64–72; TEMP 97.9–98.6; O2SAT 96–100
[2024-09-21] VITALS (14 sets, daily range): BP systolic 100–140; BP diastolic 67–105; TEMP 98–98.1; O2SAT 98–100
[2024-09-22] VITALS (12 sets, daily range): BP systolic 109–117; BP diastolic 59–63; TEMP 98.3; O2SAT 97–100
[2024-09-23] VITALS (14 sets, daily range): BP systolic 111–112; BP diastolic 58–66; TEMP 97.9–98.6; O2SAT 98–100
[2024-09-24] VITALS (13 sets, daily range): BP systolic 119–122; BP diastolic 67–73; TEMP 98.4–99; O2SAT 98–100
[2024-09-25] VITALS (12 sets, daily range): BP systolic 128; BP diastolic 61–78; TEMP 98.1–98.8; O2SAT 98–100
[2024-09-26] VITALS (12 sets, daily range): BP systolic 111–120; BP diastolic 59–83; TEMP 98.6–99; O2SAT 98–100
[2024-09-27] VITALS (12 sets, daily range): BP systolic 107–162; BP diastolic 67–69; TEMP 97.6–97.9; O2SAT 97–100
[2024-09-28] VITALS (13 sets, daily range): BP systolic 125–127; BP diastolic 63–67; TEMP 97–98; O2SAT 98–100
[2024-09-29] VITALS (12 sets, daily range): BP systolic 115–137; BP diastolic 62–82; TEMP 96.3–99.1; O2SAT 97–100
[2024-09-30] VITALS (13 sets, daily range): BP systolic 110–112; BP diastolic 64–86; TEMP 98.4–99.7; O2SAT 98–100
[2024-10-01] VITALS (13 sets, daily range): BP systolic 94–115; BP diastolic 57–77; TEMP 97.8–99.1; O2SAT 98–100
[2024-10-02] VITALS (12 sets, daily range): BP systolic 125–129; BP diastolic 57–84; TEMP 98.6–98.8; O2SAT 97–100
[2024-10-03] VITALS (12 sets, daily range): BP systolic 111–116; BP diastolic 77–81; TEMP 98.2–98.6; O2SAT 97–100
[2024-10-04] VITALS (12 sets, daily range): BP systolic 109–123; BP diastolic 68–69; TEMP 98.1–98.8; O2SAT 98–100
[2024-10-05] VITALS (11 sets, daily range): BP systolic 100–114; BP diastolic 59–60; TEMP 98.8–99.7; O2SAT 97–100
[2024-10-06] VITALS (12 sets, daily range): BP systolic 106–114; BP diastolic 57–98; TEMP 99.3–99.9; O2SAT 99–100
[2024-10-07] VITALS (12 sets, daily range): BP systolic 116–117; BP diastolic 72–76; TEMP 99.1–100; O2SAT 98–100
[2024-10-07] MEDS: ACETAMINOPHEN 650 MG/20 ML UDC- SA PATIENTS-PAIN ONLY GT PRN (20:35)
[2024-10-08] VITALS (14 sets, daily range): BP systolic 106–109; BP diastolic 55–64; TEMP 98.1–99; O2SAT 98–100
[2024-10-09] VITALS (13 sets, daily range): BP systolic 102–103; BP diastolic 48–73; TEMP 98.2–99.9; O2SAT 98–100
[2024-10-10] VITALS (13 sets, daily range): BP systolic 114–115; BP diastolic 69–76; TEMP 97.9–99; O2SAT 98–100
[2024-10-11] VITALS (12 sets, daily range): BP systolic 102–120; BP diastolic 50–77; TEMP 97.5–98.2; O2SAT 95–100
[2024-10-12] VITALS (13 sets, daily range): BP systolic 99–103; BP diastolic 57–60; TEMP 98.4–98.6; O2SAT 98–100
[2024-10-13] VITALS (12 sets, daily range): BP systolic 111–114; BP diastolic 65–67; TEMP 98.2–98.4; O2SAT 96–100
[2024-10-13] MEDS: ZINC OXIDE 30 GM TUBE TP SCH (09:00)
[2024-10-14] VITALS (12 sets, daily range): BP systolic 110–118; BP diastolic 72–76; TEMP 97.7–98; O2SAT 97–100
[2024-10-15] VITALS (12 sets, daily range): BP systolic 110–127; BP diastolic 71–72; TEMP 97.9–98.8; O2SAT 98–100
[2024-10-15] MEDS: KETOCONAZOLE 2% CREAM 15 GM TUBE TP SCH (16:28)
[2024-10-16] VITALS (12 sets, daily range): BP systolic 108–121; BP diastolic 53–89; TEMP 97.8–98.6; O2SAT 97–100
[2024-10-17] VITALS (12 sets, daily range): BP systolic 93–117; BP diastolic 76–77; TEMP 98.8–99; O2SAT 97–100
[2024-10-18] VITALS (12 sets, daily range): BP systolic 101–112; BP diastolic 68–81; TEMP 98.5–99; O2SAT 97–100
[2024-10-18 07:53] LABS: PLATELET COUNT (AUTO) 326 K/uL (150-450); RED BLOOD CELL COUNT(AUTO) 3.78 MIL/uL (4.0-5.2); RED CELL DISTRIBUTION WIDTH 15.5 % (11.5-15.0); WHITE BLOOD COUNT (AUTO) 7.7 K/uL (4.3-11.0)
[2024-10-18 08:06] LABS: CALCIUM, SERUM 9.6 mg/dL (8.5-10.1); CREATININE 0.8 mg/dL (0.6-1.3); SODIUM SERUM 133.0 mmol/L (136-145); UREA NITROGEN, BLOOD 22.0 mg/dL (7-18)
[2024-10-18] MEDS: ARGININE/GLUTAMINE/CALCIUM BMB 1 EACH POWD.PACK GT SCH (17:29)
[2024-10-19] VITALS (13 sets, daily range): BP systolic 122–125; BP diastolic 60–83; TEMP 97.8–98.1; O2SAT 97–100
[2024-10-19] MEDS ORDERED: TUBERCULIN,PURIF.PROT.DERIV. 5 TU/0.1 ML DISP.SYRIN ID SCH (09:00)
[2024-10-19] MEDS: TUBERCULIN,PURIF.PROT.DERIV. 5 TU/0.1 ML DISP.SYRIN ID SCH (11:40)
[2024-10-20] VITALS (13 sets, daily range): BP systolic 107–114; BP diastolic 72–79; TEMP 98.2–99.1; O2SAT 98–100
[2024-10-21] VITALS (13 sets, daily range): BP systolic 105–148; BP diastolic 87–93; TEMP 98.6–99; O2SAT 98–100
[2024-10-22] VITALS (12 sets, daily range): BP systolic 101–117; BP diastolic 54–67; TEMP 99.3–99.5; O2SAT 99–100
[2024-10-22 18:34] LABS: PLATELET COUNT (AUTO) 376 K/uL (150-450); RED BLOOD CELL COUNT(AUTO) 3.95 MIL/uL (4.0-5.2); RED CELL DISTRIBUTION WIDTH 15.7 % (11.5-15.0); WHITE BLOOD COUNT (AUTO) 13.8 K/uL (4.3-11.0)
[2024-10-22 18:36] LABS: ERYTHROCYTE SEDIMENTATION RATE 112 MM/HR (0-30)
[2024-10-22 18:51] LABS: ASPARTATE AMINOTRANSFERASE 23.0 U/L (15-37); CALCIUM, SERUM 9.2 mg/dL (8.5-10.1); CREATININE 0.9 mg/dL (0.6-1.3); SODIUM SERUM 135.0 mmol/L (136-145); TOTAL PROTEIN, SERUM 8.7 g/dL (6.4-8.2); UREA NITROGEN, BLOOD 42.0 mg/dL (7-18)
[2024-10-23] VITALS (12 sets, daily range): BP systolic 115; BP diastolic 65–69; TEMP 97.9–99.1; O2SAT 98–100
[2024-10-24] VITALS (14 sets, daily range): BP systolic 117–118; BP diastolic 65–67; TEMP 98–98.2; O2SAT 99–100
[2024-10-25] VITALS (12 sets, daily range): BP systolic 110–124; BP diastolic 68; TEMP 98–98.6; O2SAT 98–100
[2024-10-26] VITALS (13 sets, daily range): BP systolic 108–122; BP diastolic 67–74; TEMP 97.7–98; O2SAT 97–100
[2024-10-27] VITALS (12 sets, daily range): BP systolic 112–121; BP diastolic 64–70; TEMP 99.1–99.7; O2SAT 97–100
[2024-10-27] MEDS: POVIDONE-IODINE OINT 28.4 GM TUBE TP SCH (20:46)
[2024-10-28] VITALS (11 sets, daily range): BP systolic 103–107; BP diastolic 58–68; TEMP 98.7–99.1; O2SAT 98–100
[2024-10-28] MEDS ORDERED: Z GUARD REMEDY 4 OZ OINT TP PRN (08:00)
[2024-10-28] MEDS: Z GUARD REMEDY 4 OZ OINT TP SCH (08:15)
[2024-10-29] VITALS (13 sets, daily range): BP systolic 116–138; BP diastolic 63–76; TEMP 98.1–98.2; O2SAT 98–100
[2024-10-30] VITALS (12 sets, daily range): BP systolic 120–121; BP diastolic 62–82; TEMP 98.6–98.7; O2SAT 97–100
[2024-10-31] VITALS (13 sets, daily range): BP systolic 123–129; BP diastolic 51–76; TEMP 98.4–98.6; O2SAT 98–100
[2024-11-01] VITALS (12 sets, daily range): BP systolic 112–123; BP diastolic 66–68; TEMP 98.9–99.2; O2SAT 98–100
[2024-11-02] VITALS (14 sets, daily range): BP systolic 116–149; BP diastolic 76–86; TEMP 98–99.9; O2SAT 95–100
[2024-11-03] VITALS (11 sets, daily range): BP systolic 108–136; BP diastolic 61–71; TEMP 97.6–98.2; O2SAT 97–100
[2024-11-04] VITALS (12 sets, daily range): BP systolic 98–109; BP diastolic 47–61; TEMP 98.8–99; O2SAT 96–100
[2024-11-05] VITALS (12 sets, daily range): BP systolic 102–107; BP diastolic 59–75; TEMP 98.6–98.8; O2SAT 97–100
[2024-11-06] VITALS (11 sets, daily range): BP systolic 104–114; BP diastolic 62–65; TEMP 98.1–98.8; O2SAT 97–100
[2024-11-07] VITALS (13 sets, daily range): BP systolic 98–101; BP diastolic 55–63; TEMP 98.4; O2SAT 97–100
[2024-11-08] VITALS (13 sets, daily range): BP systolic 98–116; BP diastolic 56–64; TEMP 98.2–99; O2SAT 98–100
[2024-11-09] VITALS (13 sets, daily range): BP systolic 101–121; BP diastolic 62–71; TEMP 98.8–98.9; O2SAT 97–100
[2024-11-10] VITALS (12 sets, daily range): BP systolic 102–109; BP diastolic 65–69; TEMP 97.9–98.2; O2SAT 96–99
[2024-11-11] VITALS (12 sets, daily range): BP systolic 102–111; BP diastolic 69–73; TEMP 98.2–99.3; O2SAT 96–100
[2024-11-12] VITALS (13 sets, daily range): BP systolic 103–113; BP diastolic 63–65; TEMP 97.5–97.7; O2SAT 96–100
[2024-11-13] VITALS (13 sets, daily range): BP systolic 105–108; BP diastolic 55–67; TEMP 98.4–98.8; O2SAT 98–100
[2024-11-14] VITALS (13 sets, daily range): BP systolic 103–115; BP diastolic 68–78; TEMP 97.5–98.2; O2SAT 98–100
[2024-11-15] VITALS (13 sets, daily range): BP systolic 108–132; BP diastolic 65–75; TEMP 97.9–98.2; O2SAT 98–100
[2024-11-16] VITALS (11 sets, daily range): BP systolic 99–111; BP diastolic 50–64; TEMP 98–98.2; O2SAT 97–99
[2024-11-17] VITALS (12 sets, daily range): BP systolic 106–108; BP diastolic 64–77; TEMP 98.2–98.4; O2SAT 97–100
[2024-11-18] VITALS (13 sets, daily range): BP systolic 106–112; BP diastolic 59–76; TEMP 98.2–98.6; O2SAT 98–99
[2024-11-19] VITALS (12 sets, daily range): BP systolic 111–114; BP diastolic 56–68; TEMP 98.2–98.9; O2SAT 97–99
[2024-11-20] VITALS (12 sets, daily range): BP systolic 109; BP diastolic 51–64; TEMP 99.3–99.5; O2SAT 97–100
[2024-11-21] VITALS (12 sets, daily range): BP systolic 104–132; BP diastolic 75–78; TEMP 98.1–99; O2SAT 98–100
[2024-11-22] VITALS (12 sets, daily range): BP systolic 111; BP diastolic 66–76; TEMP 97.7–98.8; O2SAT 98–100
[2024-11-23] VITALS (13 sets, daily range): BP systolic 101–116; BP diastolic 53–72; TEMP 98.1–99; O2SAT 96–100
[2024-11-24] VITALS (13 sets, daily range): BP systolic 105–106; BP diastolic 57–81; TEMP 98.1–98.4; O2SAT 98–100
[2024-11-25] VITALS (13 sets, daily range): BP systolic 113–114; BP diastolic 64–74; TEMP 98.4–99.5; O2SAT 97–100
[2024-11-26] VITALS (13 sets, daily range): BP systolic 96–113; BP diastolic 50–57; TEMP 98.6–99.3; O2SAT 98–100
[2024-11-27] VITALS (13 sets, daily range): BP systolic 116–122; BP diastolic 61–79; TEMP 98.6–99; O2SAT 98–100
[2024-11-28] VITALS (11 sets, daily range): BP systolic 110; BP diastolic 71; TEMP 98.8; O2SAT 98–100
[2024-11-29] VITALS (11 sets, daily range): BP systolic 98–109; BP diastolic 61–63; TEMP 98.8–99; O2SAT 97–100
[2024-11-29] MEDS: ZINC OXIDE 56.7 GM TUBE TP SCH (20:26)
[2024-11-30] VITALS (11 sets, daily range): BP systolic 99–108; BP diastolic 64–77; TEMP 97.8–98.7; O2SAT 98–100
[2024-12-01] VITALS (12 sets, daily range): BP systolic 95–106; BP diastolic 55; TEMP 98.8; O2SAT 98–100
[2024-12-01] MEDS: VITAMINS A AND D 56.7 GM TUBE TP SCH (20:23)
[2024-12-02] VITALS (12 sets, daily range): BP systolic 105–115; BP diastolic 60–61; TEMP 98.4–98.8; O2SAT 96–100
[2024-12-03] VITALS (13 sets, daily range): BP systolic 100–119; BP diastolic 51–60; TEMP 97.5–98.9; O2SAT 98–100
[2024-12-04] VITALS (12 sets, daily range): BP systolic 106–120; BP diastolic 62–66; TEMP 97.9–98.4; O2SAT 99–100
[2024-12-05] VITALS (11 sets, daily range): BP systolic 101–110; BP diastolic 58–68; TEMP 98–98.1; O2SAT 98–100
[2024-12-06] VITALS (12 sets, daily range): BP systolic 105–112; BP diastolic 65–68; TEMP 98–98.2; O2SAT 98–100
[2024-12-07] VITALS (10 sets, daily range): BP systolic 102–115; BP diastolic 58–73; TEMP 98–98.4; O2SAT 97–100
[2024-12-08] VITALS (11 sets, daily range): BP systolic 106–118; BP diastolic 65–66; TEMP 99.1–99.3; O2SAT 97–100
[2024-12-09] VITALS (12 sets, daily range): BP systolic 119–122; BP diastolic 59–62; TEMP 98.8–99; O2SAT 97–100
[2024-12-10] VITALS (12 sets, daily range): BP systolic 112–125; BP diastolic 51–69; TEMP 98.9–99.3; O2SAT 97–100
[2024-12-11] VITALS (12 sets, daily range): BP systolic 115–119; BP diastolic 59–78; TEMP 98.1–98.6; O2SAT 98–99
[2024-12-12] VITALS (12 sets, daily range): BP systolic 99–130; BP diastolic 67; TEMP 98.3–99.1; O2SAT 98–99
[2024-12-13] VITALS (11 sets, daily range): BP systolic 107–125; BP diastolic 64–71; TEMP 98.9–99.5; O2SAT 98–100
[2024-12-14] VITALS (13 sets, daily range): BP systolic 109–121; BP diastolic 53–61; TEMP 98–98.2; O2SAT 98–100
[2024-12-15] VITALS (14 sets, daily range): BP systolic 101–109; BP diastolic 47–87; TEMP 99.5–99.9; O2SAT 97–100
[2024-12-16] VITALS (13 sets, daily range): BP systolic 102–109; BP diastolic 56–87; TEMP 98–99; O2SAT 98–100
[2024-12-17] VITALS (13 sets, daily range): BP systolic 99–105; BP diastolic 45–62; TEMP 98.2–100.6; O2SAT 96–100
[2024-12-18] VITALS (17 sets, daily range): BP systolic 99–107; BP diastolic 54–81; TEMP 98.8–102.7; O2SAT 98–100
[2024-12-18] MEDS: ACETAMINOPHEN 650 MG/20 ML UDC- SA PATIENTS-FEVER ONLY GT PRN (17:10)
[2024-12-19] VITALS (12 sets, daily range): BP systolic 105–115; BP diastolic 56–62; TEMP 98–99.9; O2SAT 99–100
[2024-12-19 07:25] LABS: PLATELET COUNT (AUTO) 510 K/uL (150-450); RED BLOOD CELL COUNT(AUTO) 3.18 MIL/uL (4.0-5.2); RED CELL DISTRIBUTION WIDTH 17.9 % (11.5-15.0); WHITE BLOOD COUNT (AUTO) 19.1 K/uL (4.3-11.0)
[2024-12-19 10:11] LABS: ASPARTATE AMINOTRANSFERASE 44.0 U/L (15-37); CALCIUM, SERUM 8.7 mg/dL (8.5-10.1); CREATININE 0.8 mg/dL (0.6-1.3); SODIUM SERUM 131.0 mmol/L (136-145); TOTAL PROTEIN, SERUM 7.3 g/dL (6.4-8.2); UREA NITROGEN, BLOOD 23.0 mg/dL (7-18)
[2024-12-20] VITALS (11 sets, daily range): BP systolic 101–136; BP diastolic 56–78; TEMP 98.4–99; O2SAT 98–100
[2024-12-21] VITALS (14 sets, daily range): BP systolic 92–98; BP diastolic 48–63; TEMP 98.6–100.9; O2SAT 95–100
[2024-12-22] VITALS (14 sets, daily range): BP systolic 98–128; BP diastolic 62–80; TEMP 97.5–102; O2SAT 96–100
[2024-12-22] MEDS: NYSTATIN TOP POWDER 15 GM BOTTLE TP SCH (21:00)
[2024-12-23] VITALS (13 sets, daily range): BP systolic 97–115; BP diastolic 51–65; TEMP 98.4–100; O2SAT 97–100
[2024-12-23 01:23] LABS: APPEARANCE,URINE CLEAR (CLEAR); BLOOD, URINE 1+ Ery/uL (NEGATIVE); LEUKOCYTE ESTERASE ,URINE 3+ (NEGATIVE); NITRITE, URINE NEGATIVE (NEGATIVE); UGLUCOSE NEGATIVE (NEGATIVE)
[2024-12-23 02:05] LABS: ADD URINE CULTURE YES
[2024-12-23 02:06] LABS: SQUAMOUS EPITHELIAL CELL,UR None Seen /HPF (None Seen)
[2024-12-23] MEDS: CEFEPIME 2 GM in IV D5W 100 ML IV SCH (11:00)
[2024-12-23] MEDS: VANCOMYCIN 750 MG in IV D5W 250 ML IV SCH (12:28)
[2024-12-24] VITALS (14 sets, daily range): BP systolic 102–146; BP diastolic 63–77; TEMP 97.9–100.2; O2SAT 97–100
[2024-12-25] VITALS (11 sets, daily range): BP systolic 95; BP diastolic 62; TEMP 98.6; O2SAT 97–100
[2024-12-25 13:09] LABS: CALCIUM, SERUM 8.9 mg/dL (8.5-10.1); CREATININE 0.8 mg/dL (0.6-1.3); SODIUM SERUM 130.0 mmol/L (136-145); UREA NITROGEN, BLOOD 19.0 mg/dL (7-18)
[2024-12-26] VITALS (11 sets, daily range): BP systolic 89–108; BP diastolic 55–60; TEMP 99; O2SAT 10–100
[2024-12-27] VITALS (14 sets, daily range): BP systolic 94–99; BP diastolic 55–60; TEMP 98.4–99.3; O2SAT 98–100
[2024-12-27 13:36] LABS: CREATININE 0.8 mg/dL (0.6-1.3); UREA NITROGEN, BLOOD 22.0 mg/dL (7-18)
[2024-12-28] VITALS (10 sets, daily range): BP systolic 91–102; BP diastolic 63–71; TEMP 97.4–97.5; O2SAT 99–100
[2024-12-28] MEDS: VANCOMYCIN 500 MG in IV D5W 100ml IV SCH (12:39)
[2024-12-29] VITALS (16 sets, daily range): BP systolic 105–128; BP diastolic 60–68; TEMP 97.2–101; O2SAT 99–100
[2024-12-29] MEDS: DIPHENHYDRAMINE HCL 12.5 MG/5 ML UDC PO ONE (20:47)
[2024-12-29] MEDS: AMMONIUM LACTATE 227 GM BOTTLE TP SCH (20:48)
[2024-12-30] VITALS (13 sets, daily range): BP systolic 98–108; BP diastolic 55–66; TEMP 98.4–99.8; O2SAT 95–100
[2024-12-31] VITALS (14 sets, daily range): BP systolic 100–110; BP diastolic 58–70; TEMP 98.8–99.7; O2SAT 96–100
[2024-12-31] MEDS ORDERED: VANCOMYCIN 500 MG in IV D5W 100ml IV SCH
[2025-01-01] VITALS (14 sets, daily range): BP systolic 103–119; BP diastolic 65–78; TEMP 98.2–98.8; O2SAT 98–100
[2025-01-02] VITALS (14 sets, daily range): BP systolic 98–103; BP diastolic 58–68; TEMP 98–99; O2SAT 98–100
[2025-01-03] VITALS (12 sets, daily range): BP systolic 110–118; BP diastolic 59–71; TEMP 97.9–98.8; O2SAT 98–100
[2025-01-04] VITALS (12 sets, daily range): BP systolic 96–118; BP diastolic 59–60; TEMP 99.3–99.9; O2SAT 98–100
[2025-01-05] VITALS (11 sets, daily range): BP systolic 94; BP diastolic 54; TEMP 97.9–98.2; O2SAT 98–100
[2025-01-06] VITALS (11 sets, daily range): BP systolic 100–129; BP diastolic 52–69; TEMP 99–99.3; O2SAT 94–100
[2025-01-07] VITALS (11 sets, daily range): BP systolic 127; BP diastolic 71; TEMP 99.3; O2SAT 96–100
[2025-01-07 08:01] LABS: PLATELET COUNT (AUTO) 443 K/uL (150-450); RED BLOOD CELL COUNT(AUTO) 3.03 MIL/uL (4.0-5.2); RED CELL DISTRIBUTION WIDTH 19.9 % (11.5-15.0); WHITE BLOOD COUNT (AUTO) 20.3 K/uL (4.3-11.0)
[2025-01-07 08:36] LABS: CALCIUM, SERUM 8.4 mg/dL (8.5-10.1); CREATININE 0.7 mg/dL (0.6-1.3); SODIUM SERUM 130.0 mmol/L (136-145); UREA NITROGEN, BLOOD 18.0 mg/dL (7-18)
[2025-01-07] MEDS: IV NS 0.9% 1,000 ML IV PRN (18:24)
[2025-01-07] MEDS: ZINC OXIDE 30 GM TUBE TP SCH (21:30)
[2025-01-08] VITALS (12 sets, daily range): BP systolic 98–110; BP diastolic 61–63; TEMP 99; O2SAT 98–100
[2025-01-09] VITALS (12 sets, daily range): BP systolic 104–107; BP diastolic 56–57; TEMP 98.1–100; O2SAT 96–100
[2025-01-10] VITALS (13 sets, daily range): BP systolic 100–102; BP diastolic 57–62; TEMP 99–99.5; O2SAT 95–100
[2025-01-10] MEDS: DOXYCYCLINE HYCLATE (100 MG) 100 MG TABLET GT SCH (17:27)
[2025-01-11] VITALS (14 sets, daily range): BP systolic 101–126; BP diastolic 54–58; TEMP 99.5–99.9; O2SAT 95–100
[2025-01-12] VITALS (14 sets, daily range): BP systolic 99–117; BP diastolic 59; TEMP 98.1–98.4; O2SAT 98–100
[2025-01-13] VITALS (13 sets, daily range): BP systolic 98–100; BP diastolic 51–78; TEMP 98.2–98.4; O2SAT 98–100
[2025-01-13 11:56] LABS: INR 1.04 (0.91-1.10)
[2025-01-14] VITALS (13 sets, daily range): BP systolic 98–101; BP diastolic 54–59; TEMP 98.4; O2SAT 98–100
[2025-01-14] MEDS: DAKINS HALF STRENGTH (0.25%) 480 ML BOTTLE TOP SCH (09:40)
[2025-01-14] MEDS: TRAMADOL HCL 50 MG TABLET GT SCH (21:00)
[2025-01-15] VITALS (14 sets, daily range): BP systolic 97–129; BP diastolic 59–78; TEMP 97.9–98.2; O2SAT 98–100
[2025-01-15] MEDS: POVIDONE-IODINE OINT 28.4 GM TUBE TP SCH (09:44)
[2025-01-15] MEDS: TRAMADOL HCL 50 MG TABLET GT SCH (17:15)
[2025-01-16] VITALS (12 sets, daily range): BP systolic 102–105; BP diastolic 66–71; TEMP 98.1–98.4; O2SAT 98–100
[2025-01-17] VITALS (12 sets, daily range): BP systolic 103–105; BP diastolic 75–77; TEMP 97.9–98; O2SAT 97–100
[2025-01-18] VITALS (13 sets, daily range): BP systolic 105–126; BP diastolic 65–72; TEMP 97.9–98; O2SAT 96–100
[2025-01-18] MEDS: NYSTATIN TOP POWDER 15 GM BOTTLE TP SCH (21:00)
[2025-01-19] VITALS (13 sets, daily range): BP systolic 101–126; BP diastolic 44–76; TEMP 97.5–98; O2SAT 98–100
[2025-01-19] MEDS: TRAMADOL HCL 50 MG TABLET GT SCH (20:18)
[2025-01-20] VITALS (14 sets, daily range): BP systolic 96–99; BP diastolic 56–70; TEMP 97.9–98.2; O2SAT 97–100
[2025-01-21] VITALS (12 sets, daily range): BP systolic 107–114; BP diastolic 60–69; TEMP 97.7–98.4; O2SAT 98–100
[2025-01-21] MEDS: SOD FERRIC GLUC 125 MG in IV NS 0.9% 100 ML IV SCH (14:53)
[2025-01-22] VITALS (12 sets, daily range): BP systolic 100–109; BP diastolic 60–73; TEMP 97.7–98.3; O2SAT 96–100
[2025-01-23] VITALS (12 sets, daily range): BP systolic 100–116; BP diastolic 62–70; TEMP 97.3–98.2; O2SAT 98–100
[2025-01-24] VITALS (11 sets, daily range): BP systolic 114; BP diastolic 53–59; TEMP 97.9–98.1; O2SAT 98–100
[2025-01-25] VITALS (14 sets, daily range): BP systolic 108–111; BP diastolic 59–67; TEMP 97.2–98; O2SAT 98–100
[2025-01-25] MEDS: NYSTATIN TOP POWDER 15 GM BOTTLE TP SCH (21:22)
[2025-01-26] VITALS (13 sets, daily range): BP systolic 100–102; BP diastolic 55–77; TEMP 97.5–98.6; O2SAT 97–100
[2025-01-26] MEDS ORDERED: DIATR MEGLU/DIATRIZOATE SODIUM 30 ML BOTTLE (GASTROGRAPHIN) ONE (19:02)
[2025-01-27] VITALS (13 sets, daily range): BP systolic 104–113; BP diastolic 57–58; TEMP 98.1–98.2; O2SAT 98–100
[2025-01-28] VITALS (13 sets, daily range): BP systolic 101–113; BP diastolic 70–79; TEMP 97.9–98.2; O2SAT 99–100
[2025-01-29] VITALS (12 sets, daily range): BP systolic 105–136; BP diastolic 56–68; TEMP 97.7–97.9; O2SAT 99–100
[2025-01-30] VITALS (12 sets, daily range): BP systolic 119; BP diastolic 61; TEMP 98.6; O2SAT 99–100
[2025-01-31] VITALS (13 sets, daily range): BP systolic 118; BP diastolic 70; TEMP 98.1; O2SAT 98–100
[2025-02-01] VITALS (13 sets, daily range): BP systolic 110–118; BP diastolic 56–78; TEMP 98–98.8; O2SAT 98–100
[2025-02-02] VITALS (12 sets, daily range): BP systolic 106–140; BP diastolic 58–82; TEMP 98.1–98.8; O2SAT 97–100
[2025-02-03] VITALS (14 sets, daily range): BP systolic 107–127; BP diastolic 54–55; TEMP 97.7–98.4; O2SAT 98–100
[2025-02-04] VITALS (12 sets, daily range): BP systolic 116–136; BP diastolic 68–75; TEMP 97.8–98.2; O2SAT 98–100
[2025-02-05] VITALS (11 sets, daily range): BP systolic 116; BP diastolic 68; TEMP 98.1; O2SAT 96–100
[2025-02-06] VITALS (13 sets, daily range): BP systolic 102–117; BP diastolic 51–76; TEMP 97.9–98.3; O2SAT 95–100
[2025-02-07] VITALS (12 sets, daily range): BP systolic 103–122; BP diastolic 62–82; TEMP 97.5–97.9; O2SAT 98–100
[2025-02-07] MEDS: NYSTATIN TOP POWDER 15 GM BOTTLE TP SCH (20:34)
[2025-02-08] VITALS (12 sets, daily range): BP systolic 105–126; BP diastolic 61–69; TEMP 98–98.1; O2SAT 97–100
[2025-02-09] VITALS (14 sets, daily range): BP systolic 121–125; BP diastolic 66–69; TEMP 97.3–97.9; O2SAT 98–100
[2025-02-10] VITALS (12 sets, daily range): BP systolic 112–128; BP diastolic 61–71; TEMP 97.9; O2SAT 97–100
[2025-02-11] VITALS (12 sets, daily range): BP systolic 131–135; BP diastolic 68–76; TEMP 98.1–98.6; O2SAT 97–100
[2025-02-12] VITALS (13 sets, daily range): BP systolic 121–125; BP diastolic 57–67; TEMP 98.1–98.4; O2SAT 99–100
[2025-02-12 01:37] LABS: PLATELET COUNT (AUTO) 299 K/uL (150-450); RED BLOOD CELL COUNT(AUTO) 3.70 MIL/uL (4.0-5.2); RED CELL DISTRIBUTION WIDTH 19.4 % (11.5-15.0); WHITE BLOOD COUNT (AUTO) 6.9 K/uL (4.3-11.0)
[2025-02-13] VITALS (13 sets, daily range): BP systolic 99–122; BP diastolic 64–75; TEMP 98.6–99; O2SAT 97–100
[2025-02-14] VITALS (12 sets, daily range): BP systolic 121; BP diastolic 56–78; TEMP 98.1–98.7; O2SAT 96–99
[2025-02-15] VITALS (12 sets, daily range): BP systolic 103–154; BP diastolic 51–86; TEMP 97.7–99.1; O2SAT 97–100
[2025-02-16] VITALS (13 sets, daily range): BP systolic 100–104; BP diastolic 51–59; TEMP 98.2; O2SAT 98–100
[2025-02-17] VITALS (13 sets, daily range): BP systolic 99–132; BP diastolic 65–69; TEMP 98.1–100.9; O2SAT 97–100
[2025-02-17 13:50] LABS: PLATELET COUNT (AUTO) 156 K/uL (150-450); RED BLOOD CELL COUNT(AUTO) 3.47 MIL/uL (4.0-5.2); RED CELL DISTRIBUTION WIDTH 17.9 % (11.5-15.0); WHITE BLOOD COUNT (AUTO) 13.5 K/uL (4.3-11.0)
[2025-02-17 14:04] LABS: ASPARTATE AMINOTRANSFERASE 61.0 U/L (15-37); CALCIUM, SERUM 8.6 mg/dL (8.5-10.1); CREATININE 1.0 mg/dL (0.6-1.3); SODIUM SERUM 138.0 mmol/L (136-145); TOTAL PROTEIN, SERUM 7.5 g/dL (6.4-8.2); UREA NITROGEN, BLOOD 31.0 mg/dL (7-18)
[2025-02-17] MEDS: POVIDONE-IODINE OINT 28.4 GM TUBE TP SCH (18:22)
[2025-02-18] VITALS (13 sets, daily range): BP systolic 102–117; BP diastolic 58–62; TEMP 98.7–100; O2SAT 98–100
[2025-02-19] VITALS (13 sets, daily range): BP systolic 108–114; BP diastolic 60–70; TEMP 99–99.5; O2SAT 98–100
[2025-02-20] VITALS (11 sets, daily range): BP systolic 84–103; BP diastolic 55–70; TEMP 99–102.9; O2SAT 92–99
[2025-02-20 20:06] LABS: ABG BASE EXCESS -2.1 mmol/L (-2.0-3.0); ABG OXYGEN SATURATION 95.3 % (94.0-98.0); ABG PCO2 22.3 mmHg (32.0-45.0); ABG PH 7.541 (7.350-7.450); ABG PO2 69.0 mmHg (83.0-108.0); ABG TOTAL HEMOGLOBIN 12.5 G/dL (12.0-16.0); FLOW, BLOOD GAS 8.00 L/min (0.00-30.00); FRACTIONATED INSPIRED OXYGEN 35.0 %; SITE, ABG RIGHT RADIAL
[2025-02-27 14:31] VITALS: O2SAT 98
[2025-03-02 07:40] VITALS: BP 116/72; TEMP 99; O2SAT 100
[2025-03-02 19:42] VITALS: BP 136/81; TEMP 97.9; O2SAT 99
== END 2025-02-27 12:00 | disposition short-term general hospital (02) | DRG 189 ==
LOC: SA 00:01 → UNDOLOA 02-20 21:00 → SA 02-27 18:18 → UNDOLOA 03-07 12:42 → SA 03-07 12:44
PROVIDERS: ADMIT Internal Medicine; ATTEND Internal Medicine
DX: J96.10 Chronic respiratory failure, unspecified whether with hypoxia or hypercapnia (principal); G93.49 Other encephalopathy; K31.6 Fistula of stomach and duodenum; L10.0 Pemphigus vulgaris; I69.153 Hemiplegia and hemiparesis following nontraumatic intracerebral hemorrhage affecting right non-dominant side; L02.416 Cutaneous abscess of left lower limb; K94.23 Gastrostomy malfunction; N39.0 Urinary tract infection, site not specified; T83.728A Exposure of other implanted mesh into organ or tissue, initial encounter; I69.198 Other sequelae of nontraumatic intracerebral hemorrhage; D64.9 Anemia, unspecified; J40 Bronchitis, not specified as acute or chronic; R13.10 Dysphagia, unspecified; Z93.0 Tracheostomy status; L71.9 Rosacea, unspecified; Z86.79 Personal history of other diseases of the circulatory system; I10 Essential (primary) hypertension; Y83.8 Other surgical procedures as the cause of abnormal reaction of the patient, or of later complication, without mention of misadventure at the time of the procedure; Y82.8 Other medical devices associated with adverse incidents; Y92.239 Unspecified place in hospital as the place of occurrence of the external cause; Y92.230 Patient room in hospital as the place of occurrence of the external cause
CPT/HCPCS: 31720; 36415; 71045-TC; 72192-TC; 74018; 80048-TC; 80053-TC; 80202-TC; 81001; 82565-TC; 84520-TC; 85025-TC; 85610-TC; 85652-TC; 85730-TC; 86140-TC; 87040-TC; 87086-TC; 87186-TC; 94640-TC; 94760-TC; 94761-TC; 94762-TC; 94799-TC; A4223; A4623; A6253; A7526; J0692; J1644; J2916; J3370; J3371; J7030; J7060; Q0163; Q9963

== ENCOUNTER → 2025-01-13 | Day surgery (SDC) | payer MEDICARE, OTHER ==
[~2025-01-13] MED LIST changes: +ANESTHESIA TRAY IN PYXIS 1 EA TRAY MC ONE; +BUPIVACAINE 0.5 % PF 150 MG/30 ML VIAL ONE; +BUPIVACAINE MPF 0.5% W/EPI INJ 30 ML VIAL ONE; +FENTANYL PF 100MCG/2ML AMPUL ONE; +LIDOCAINE 1% INJ 50 ML MDV IJ ONE; +MORPHINE SULFATE INJ 4 MG/ML DISP.SYRIN ONE; +ROCURONIUM BROMIDE 50 MG/5 ML ONE; +SUGAMMADEX SODIUM 200 MG/2 ML VIAL IV ONE
== END | disposition home or self-care (01) ==
LOC: CT 10:05 → EDSTATUS 10:42 → DS 10:43
PROVIDERS: ATTEND Internal Medicine
DX: L02.212 Cutaneous abscess of back [any part, except buttock and flank] (principal); L02.416 Cutaneous abscess of left lower limb; L10.0 Pemphigus vulgaris; M19.90 Unspecified osteoarthritis, unspecified site; G93.40 Encephalopathy, unspecified; I10 Essential (primary) hypertension; K31.6 Fistula of stomach and duodenum; J44.9 Chronic obstructive pulmonary disease, unspecified; F32.9 Major depressive disorder, single episode, unspecified; Z79.899 Other long term (current) drug therapy; Z86.73 Personal history of transient ischemic attack (TIA), and cerebral infarction without residual deficits; Z87.440 Personal history of urinary (tract) infections; Z88.0 Allergy status to penicillin; Z88.1 Allergy status to other antibiotic agents; Z93.0 Tracheostomy status; Z93.1 Gastrostomy status; Z98.890 Other specified postprocedural states; Z86.2 Personal history of diseases of the blood and blood-forming organs and certain disorders involving the immune mechanism; Z88.8 Allergy status to other drugs, medicaments and biological substances
CPT/HCPCS: 10060; 87070; 87102; 87205; A6253; A6403; J2704; J2765; J3010; J3490; J7030; J2270

== ENCOUNTER 2025-02-20 20:16 | Inpatient (IN) | payer MEDICARE, OTHER ==
[~2025-02-20 20:16] MED LIST changes: -ANESTHESIA TRAY IN PYXIS 1 EA TRAY MC ONE; -BUPIVACAINE 0.5 % PF 150 MG/30 ML VIAL ONE; -BUPIVACAINE MPF 0.5% W/EPI INJ 30 ML VIAL ONE; -FENTANYL PF 100MCG/2ML AMPUL ONE; -LIDOCAINE 1% INJ 50 ML MDV IJ ONE; -MORPHINE SULFATE INJ 4 MG/ML DISP.SYRIN ONE; -ROCURONIUM BROMIDE 50 MG/5 ML ONE; -SUGAMMADEX SODIUM 200 MG/2 ML VIAL IV ONE
== END 2025-02-21 20:25 | disposition still patient (30) | DRG 951 ==
LOC: ICU 20:16
PROVIDERS: ADMIT Internal Medicine; ATTEND Internal Medicine
DX: Z00.00 Encounter for general adult medical examination without abnormal findings (principal)
CPT/HCPCS: 94799-TC; A4223; A6213; G0378; J7050

== ENCOUNTER 2025-02-20 20:50 | Inpatient (IN) | payer MEDICARE, OTHER ==
[~2025-02-20] VITALS: Ht 152.4 cm; Wt 51.7 kg
[2025-02-20 21:04] VITALS: O2SAT 99
[2025-02-20] MEDS ORDERED: ACETAMINOPHEN ES 500 MG TABLET ONE (21:18)
[2025-02-20] MEDS ORDERED: KETOROLAC TROMETHAMINE 15 MG/ML VIAL ONE (21:23)
[2025-02-20] MEDS: KETOROLAC TROMETHAMINE 15 MG/ML VIAL IV ONE (21:26)
[2025-02-20] MEDS: IV NS 0.9% 500 ML BAG IV ONE ×2 (21:26→22:29)
[2025-02-20] MEDS: ACETAMINOPHEN 650 MG/SUPP.RECT RC ONE (21:27)
[2025-02-20] MEDS ORDERED: DOXYCYCLINE 100 MG VIAL ONE (21:30)
[2025-02-20 21:33] LABS: CALCIUM, SERUM 9.2 mg/dL (8.5-10.1); CREATININE 1.2 mg/dL (0.6-1.3); SODIUM SERUM 138 mmol/L (136-145); UREA NITROGEN, BLOOD 37 mg/dL (7-18)
[2025-02-20 21:38] LABS: PLATELET COUNT (AUTO) 200 K/uL (150-450); RED BLOOD CELL COUNT(AUTO) 4.15 MIL/uL (4.0-5.2); RED CELL DISTRIBUTION WIDTH 20.1 % (11.5-15.0); WHITE BLOOD COUNT (AUTO) 7.7 K/uL (4.3-11.0)
[2025-02-20] MEDS: DOXYCYCLINE 100 MG in IV D5W 100 ML IV ONE (21:38)
[2025-02-20] MEDS ORDERED: NOREPINEPHRINE 8MG/250ML RTU 250 ML IV ONE (21:39)
[2025-02-20 21:40] LABS: ASPARTATE AMINOTRANSFERASE 85 U/L (15-37); TOTAL PROTEIN, SERUM 8.5 g/dL (6.4-8.2)
[2025-02-20 21:44] LABS: LACTIC ACID 7.9 mmol/L (0.4-2.0)
[2025-02-20 21:55] LABS: INR 1.81 (0.91-1.10)
[2025-02-20] MEDS ORDERED: LEVOFLOXACIN 750 MG /D5W 150ML 150 ML IV ONE (22:22)
[2025-02-20] MEDS: LEVOFLOXACIN 750 MG /D5W 150ML PIGGYBACK IV ONE (22:28)
[2025-02-20] MEDS: NOREPINEPHRINE 8 MG in IV D5W 242 ML IV PRN (22:34)
[2025-02-20] MEDS ORDERED: MAGNESIUM HYDROXIDE 30 ML UDC PO PRN (23:30)
[2025-02-20] MEDS ORDERED: ENOXAPARIN SODIUM 40 MG/0.4 ML DISP.SYRIN SQ SCH (23:30)
[2025-02-20] MEDS ORDERED: ONDANSETRON HCL/PF 4 MG/2 ML VIAL IVP PRN (23:30)
[2025-02-20] MEDS ORDERED: MAG HYDROX/AL HYDROX/SIMETH 30 ML UDC PO PRN (23:30)
[2025-02-21] VITALS (97 sets, daily range): BP systolic 70–152; BP diastolic 38–109; TEMP 97.6–98.6; O2SAT 92–100
[2025-02-21 00:15] LABS: APPEARANCE,URINE TURBID (CLEAR)
[2025-02-21 00:16] LABS: BLOOD, URINE 3+ Ery/uL (NEGATIVE); UGLUCOSE NEGATIVE (NEGATIVE)
[2025-02-21 00:17] LABS: LEUKOCYTE ESTERASE ,URINE 3+ (NEGATIVE); NITRITE, URINE NEGATIVE (NEGATIVE)
[2025-02-21 00:19] LABS: ADD URINE CULTURE YES; SQUAMOUS EPITHELIAL CELL,UR Moderate /HPF (None Seen)
[2025-02-21 00:20] LABS: COARSE GRANULAR CASTS,URINE Rare /LPF (None Seen)
[2025-02-21] MEDS ORDERED: LINEZOLID RTU BAG 300 ML IV ONE (01:06)
[2025-02-21] MEDS: NOREPINEPHRINE 8 MG in IV D5W 242 ML IV PRN (01:09)
[2025-02-21] MEDS: LINEZOLID RTU BAG 600 MG in PREMIX 1 EA IV SCH (01:13)
[2025-02-21] MEDS: IV NS 0.9% 250 ML IV PRN (01:13)
[2025-02-21] MEDS: HYDROCORTISONE SOD SUCCINATE 100 MG/2 ML VIAL IV ONE (01:17)
[2025-02-21 01:20] LABS: ABG BASE EXCESS -8.5 mmol/L (-2.0-3.0); ABG OXYGEN SATURATION 99.0 % (94.0-98.0); ABG PCO2 28.0 mmHg (32.0-45.0); ABG PH 7.362 (7.350-7.450); ABG PO2 151.2 mmHg (83.0-108.0); ABG TOTAL HEMOGLOBIN 12.4 G/dL (12.0-16.0); FLOW, BLOOD GAS 10.00 L/min (0.00-30.00); FRACTIONATED INSPIRED OXYGEN 40.0 %; SITE, ABG LEFT BRACHIAL
[2025-02-21] MEDS: METRONIDAZOLE 500MG/ NS 100ML 500 MG in PREMIX 1 EA IV SCH ×2 (02:17→08:19)
[2025-02-21] MEDS: NOREPINEPHRINE 8MG/250ML RTU 250 ML IV ONE (03:00)
[2025-02-21] MEDS: METRONIDAZOLE 500MG/ NS 100ML 100 ML IV ONE (03:00)
[2025-02-21] MEDS: PANTOPRAZOLE 40 MG VIAL IV SCH (08:24)
[2025-02-21] MEDS: HEPARIN SODIUM, PORCINE 5000 UNITS/1 ML VIAL SQ SCH (08:25)
[2025-02-21 08:54] LABS: CALCIUM, SERUM 8.6 mg/dL (8.5-10.1); CREATININE 1.8 mg/dL (0.6-1.3); PHOSPHORUS 4.3 mg/dL (2.5-4.9); SODIUM SERUM 143.0 mmol/L (136-145); UREA NITROGEN, BLOOD 48.0 mg/dL (7-18)
[2025-02-21] MEDS: IV D5/ 0.9% NACL 1,000 ML IV SCH (09:17)
[2025-02-21] MEDS: AZTREONAM 2 G in IV NS 0.9% 100 ML IV SCH (09:21)
[2025-02-21 11:37] LABS: PLATELET COUNT (AUTO) 142 K/uL (150-450); RED BLOOD CELL COUNT(AUTO) 3.68 MIL/uL (4.0-5.2); RED CELL DISTRIBUTION WIDTH 19.0 % (11.5-15.0)
[2025-02-21 12:17] LABS: WHITE BLOOD COUNT (AUTO) 70.9 K/uL (4.3-11.0)
[2025-02-21 13:29] LABS: LYMPHOCYTES % (MANUAL) 2 % (16-48); MONOCYTES % (MANUAL) 2 % (0-11.0); NEUTROPHILS % (MANUAL) 96 (42-76); PLATELET ESTIMATE DECREASED
[2025-02-21] MEDS ORDERED: LEVOFLOXACIN 750 MG /D5W 150ML 750 MG in PREMIX 1 EA IV SCH (21:00)
[2025-02-22] VITALS (55 sets, daily range): BP systolic 94–172; BP diastolic 59–91; TEMP 97.4–208.4; O2SAT 97–100
[2025-02-22 09:48] LABS: RED BLOOD CELL COUNT(AUTO) 3.49 MIL/uL (4.0-5.2)
[2025-02-22 09:49] LABS: PLATELET COUNT (AUTO) 102 K/uL (150-450); RED CELL DISTRIBUTION WIDTH 18.8 % (11.5-15.0)
[2025-02-22 10:10] LABS: WHITE BLOOD COUNT (AUTO) 31.8 K/uL (4.3-11.0)
[2025-02-22 10:51] LABS: LYMPHOCYTES % (MANUAL) 10 % (16-48); MONOCYTES % (MANUAL) 1 % (0-11.0); NEUTROPHILS % (MANUAL) 89 (42-76); PLATELET ESTIMATE DECREASED
[2025-02-22 11:02] LABS: CALCIUM, SERUM 8.0 mg/dL (8.5-10.1); CREATININE 1.4 mg/dL (0.6-1.3); SODIUM SERUM 149.0 mmol/L (136-145); UREA NITROGEN, BLOOD 45.0 mg/dL (7-18)
[2025-02-22] MEDS: IV D5/0.45 NACL 1,000 ML IV SCH (16:21)
[2025-02-22] MEDS: ACETAMINOPHEN 325 MG TABLET PO PRN (17:39)
[2025-02-23] VITALS (20 sets, daily range): BP systolic 103–130; BP diastolic 59–95; TEMP 97.4–97.9; O2SAT 93–100
[2025-02-23 04:12] LABS: PLATELET COUNT (AUTO) 94 K/uL (150-450); RED BLOOD CELL COUNT(AUTO) 3.29 MIL/uL (4.0-5.2); RED CELL DISTRIBUTION WIDTH 19.0 % (11.5-15.0); WHITE BLOOD COUNT (AUTO) 19.2 K/uL (4.3-11.0)
[2025-02-23 04:25] LABS: ASPARTATE AMINOTRANSFERASE 32.0 U/L (15-37); CALCIUM, SERUM 8.1 mg/dL (8.5-10.1); CREATININE 1.2 mg/dL (0.6-1.3); PHOSPHORUS 3.8 mg/dL (2.5-4.9); SODIUM SERUM 147.0 mmol/L (136-145); TOTAL PROTEIN, SERUM 6.2 g/dL (6.4-8.2); UREA NITROGEN, BLOOD 42.0 mg/dL (7-18)
[2025-02-23 04:57] LABS: BAND % (MANUAL) 3 % (0.0-5.0); LYMPHOCYTES % (MANUAL) 11 % (16-48); MONOCYTES % (MANUAL) 5 % (0-11.0); NEUTROPHILS % (MANUAL) 81 (42-76)
[2025-02-23 04:58] LABS: PLATELET ESTIMATE DECREASED
[2025-02-23] MEDS: POTASSIUM CHLORIDE 20 MEQ POWDER PACKET GT ONE (08:59)
[2025-02-23] MEDS: ARGININE/GLUTAMINE/CALCIUM BMB 1 EACH POWD.PACK GT SCH (12:58)
[2025-02-23] MEDS: IV D5/0.45 NACL 1,000 ML IV PRN (14:31)
[2025-02-23] MEDS: JEVITY 1.2 CAL 1,000 ML BOTTLE GT PRN (19:31)
[2025-02-23] MEDS ORDERED: LINEZOLID RTU BAG 300 ML IV ONE (21:32)
[2025-02-24] VITALS (12 sets, daily range): BP systolic 118–141; BP diastolic 61–84; TEMP 97.7–98.4; O2SAT 96–99
[2025-02-24 07:02] LABS: PLATELET COUNT (AUTO) 107 K/uL (150-450); RED BLOOD CELL COUNT(AUTO) 3.28 MIL/uL (4.0-5.2); RED CELL DISTRIBUTION WIDTH 18.4 % (11.5-15.0); WHITE BLOOD COUNT (AUTO) 10.1 K/uL (4.3-11.0)
[2025-02-24 07:13] LABS: ASPARTATE AMINOTRANSFERASE 20.0 U/L (15-37); CALCIUM, SERUM 7.9 mg/dL (8.5-10.1); CREATININE 1.1 mg/dL (0.6-1.3); PHOSPHORUS 3.0 mg/dL (2.5-4.9); SODIUM SERUM 142.0 mmol/L (136-145); TOTAL PROTEIN, SERUM 6.0 g/dL (6.4-8.2); UREA NITROGEN, BLOOD 34.0 mg/dL (7-18)
[2025-02-25] VITALS (11 sets, daily range): BP systolic 127–150; BP diastolic 74–99; TEMP 97.3–98.6; O2SAT 97–100
[2025-02-25] MEDS: PANTOPRAZOLE 40 MG/PACK PACK GT SCH (08:34)
[2025-02-25] MEDS ORDERED: DIATR MEGLU/DIATRIZOATE SODIUM 30 ML BOTTLE (GASTROGRAPHIN) ONE (09:22)
[2025-02-25] MEDS: LINEZOLID 600 MG TABLET GT SCH (10:07)
[2025-02-26] VITALS (12 sets, daily range): BP systolic 120–141; BP diastolic 66–89; TEMP 97.9–98.5; O2SAT 96–100
[2025-02-27] VITALS (7 sets, daily range): BP systolic 123–137; BP diastolic 54–82; TEMP 98.1–98.4; O2SAT 98–100
[2025-02-27] MEDS: CEFAZOLIN 2 GM in IV D5W 100 ML IV SCH (13:00)
== END 2025-02-27 14:22 | DRG 871 ==
LOC: ER 20:52 → ICU 23:46 → TELE-TD 02-23 10:28 → TELE1 02-24 09:45 → UNDODISIN 02-27 14:22
PROVIDERS: ATTEND Internal Medicine
DX: A41.9 Sepsis, unspecified organism (principal); E43 Unspecified severe protein-calorie malnutrition; R65.21 Severe sepsis with septic shock; N17.9 Acute kidney failure, unspecified; J96.10 Chronic respiratory failure, unspecified whether with hypoxia or hypercapnia; E87.0 Hyperosmolality and hypernatremia; E87.20 Acidosis, unspecified; Z99.11 Dependence on respirator [ventilator] status; I69.351 Hemiplegia and hemiparesis following cerebral infarction affecting right dominant side; G93.49 Other encephalopathy; T85.625A Displacement of other nervous system device, implant or graft, initial encounter; N12 Tubulo-interstitial nephritis, not specified as acute or chronic; D64.9 Anemia, unspecified; E86.0 Dehydration; E87.6 Hypokalemia; M89.8X9 Other specified disorders of bone, unspecified site; Z87.440 Personal history of urinary (tract) infections; Z93.0 Tracheostomy status; Z93.1 Gastrostomy status; R13.10 Dysphagia, unspecified; L89.622 Pressure ulcer of left heel, stage 2; Z20.822 Contact with and (suspected) exposure to COVID-19; R74.01 Elevation of levels of liver transaminase levels; E88.09 Other disorders of plasma-protein metabolism, not elsewhere classified; Z68.22 Body mass index [BMI] 22.0-22.9, adult; I10 Essential (primary) hypertension; E11.9 Type 2 diabetes mellitus without complications; G40.909 Epilepsy, unspecified, not intractable, without status epilepticus; B96.20 Unspecified Escherichia coli [E. coli] as the cause of diseases classified elsewhere; B96.4 Proteus (mirabilis) (morganii) as the cause of diseases classified elsewhere; M24.571 Contracture, right ankle; M24.572 Contracture, left ankle; E83.9 Disorder of mineral metabolism, unspecified; Z86.61 Personal history of infections of the central nervous system; Y83.8 Other surgical procedures as the cause of abnormal reaction of the patient, or of later complication, without mention of misadventure at the time of the procedure; Y92.129 Unspecified place in nursing home as the place of occurrence of the external cause; L89.229 Pressure ulcer of left hip, unspecified stage
CPT/HCPCS: 31720; 36415; 70450-TC; 71045-TC; 74018; 76770-TC; 80048-TC; 80053-TC; 80076-TC; 81001; 82533; 83605-TC; 83735-TC; 84100-TC; 85025-TC; 85027-TC; 85730-TC; 87040-TC; 87070-TC; 87081-TC; 87086-TC; 87186-TC; 87205-TC; 93307-TC; 94640-TC; 94760-TC; 94799-TC; 99082-TC; A4216; A4223; A4623; A6213; A6253; A6403; G0378; J0690; J1644; J1720; J1885; J1956; J2020; J2470; J3490; J7030; J7042; J7050; J7060; Q9963